=== PATIENT | male | born 1940 | race Caucasian/White ===

== ENCOUNTER 2020-07-26 13:59 | Outpatient (REF) | payer MEDICARE, OTHER, SELFPAY ==
[2020-07-26 16:54] LABS: Blood Urea Nitrogen 25 mg/dL (9-16); Estimated Glomerular Filt Rate 40
== END 2020-07-26 14:00 | disposition home or self-care (01) ==
LOC: HO.HMGCLDS 13:59
PROVIDERS: PCP Family Medicine; Visit Provider Otolaryngology
DX: Z01.818 Encounter for other preprocedural examination (principal)
CPT/HCPCS: 82565; 84520

== ENCOUNTER 2020-08-01 14:11 | Outpatient (REF) | payer MEDICARE, OTHER, SELFPAY ==
[2020-08-01 16:40] LABS: MANUAL DIFF FLAG NO
[2020-08-01 16:44] LABS: Basophils Percent Auto 0.8 % (0-2); Eosinophils Absolute Auto 0.3 X10*3/uL (0.0-0.4); Eosinophils Percent Auto 6.3 % (0-4); Hematocrit 37.4 % (42-52); Hemoglobin 12.5 g/dl (14.0-18.0); Imm Gran Abs Auto 0.01 X10*3/uL (0.00-0.03); Imm Gran Pct Auto 0.2 % (0.0-0.4); Mean Corpuscular HGB Conc 33.4 g/dl (31.0-36.0); Mean Corpuscular Hemoglobin 34.3 pg (27.0-33.0); Mean Corpuscular Volume 102.7 fL (80-98); Mean Platelet Volume 11.4 fL (9.4-12.4); Monocytes Absolute Auto 0.7 X10*3/uL (0.1-1.2); Monocytes Percent Auto 12.8 % (2-11); Neutrophils Absolute Auto 2.2 X10*3/uL (2.0-8.3); Neutrophils Percent Auto 41.9 % (45-73); Platelet Count 182 X10*3/uL (160-400); Red Blood Count 3.64 X10*6/uL (4.60-5.80); Red Cell Distribution Width 15.3 % (11.0-16.0); White Blood Count 5.2 X10*3/uL (4.8-10.8)
[2020-08-01 16:51] LABS: Prothrombin Time 11.3 SEC (10.8-13.0)
[2020-08-01 17:08] LABS: Anion Gap 13 (12-20); Blood Urea Nitrogen 21 mg/dL (9-16); Calcium 9.1 mg/dL (8.4-10.2); Carbon Dioxide 28 mmol/L (22-29); Chloride 109 mmol/L (96-108); Estimated Glomerular Filt Rate 42; Glucose Random 93 mg/dL (60-115); Potassium 4.6 mmol/l (3.3-5.1); Sodium 145 mmol/L (135-145)
[2020-08-01 17:14] LABS: B Type Natriuretic Peptide 342 pg/mL (<100)
== END 2020-08-01 14:12 | disposition home or self-care (01) ==
LOC: HO.HMGCLDS 14:11
PROVIDERS: PCP Family Medicine; Visit Provider Internal Medicine Cardiovascular Disease
DX: R06.00 Dyspnea, unspecified (principal); I10 Essential (primary) hypertension
CPT/HCPCS: 36415; 80048; 83880; 85025; 85610

== ENCOUNTER 2020-12-06 13:01 | Outpatient (REF) | payer MEDICARE, OTHER, SELFPAY ==
[2020-12-06 14:32] LABS: Anion Gap 15 (12-20); Blood Urea Nitrogen 48 mg/dL (9-16); Calcium 9.1 mg/dL (8.4-10.2); Carbon Dioxide 28 mmol/L (22-29); Chloride 105 mmol/L (96-108); Estimated Glomerular Filt Rate 26; Phosphorus 3.6 mg/dL (2.7-4.5); Potassium 4.5 mmol/L (3.3-5.1); Sodium 143 mmol/L (135-145)
[2020-12-06 16:03] LABS: Renal w Reflex Lab Use Only Order verified
== END 2020-12-06 13:02 | disposition home or self-care (01) ==
LOC: HO.HMGCLDS 13:01
PROVIDERS: Visit Provider Internal Medicine Nephrology
DX: I12.9 Hypertensive chronic kidney disease with stage 1 through stage 4 chronic kidney disease, or unspecified chronic kidney disease (principal); N18.30 Chronic kidney disease, stage 3 unspecified
CPT/HCPCS: 36415; 80051; 82310; 82565; 84100; 84520

== ENCOUNTER → 2020-12-13 12:57 | Outpatient (BNVA) | payer MEDICARE, OTHER, SELFPAY | PROVIDERS: PCP Family Medicine; Visit Provider Nurse Practitioner Gerontology | DX: I12.9 Hypertensive chronic kidney disease with stage 1 through stage 4 chronic kidney disease, or unspecified chronic kidney disease (principal); E11.22 Type 2 diabetes mellitus with diabetic chronic kidney disease; E11.42 Type 2 diabetes mellitus with diabetic polyneuropathy; N18.30 Chronic kidney disease, stage 3 unspecified; E78.5 Hyperlipidemia, unspecified; Z79.4 Long term (current) use of insulin; Z71.3 Dietary counseling and surveillance | CPT/HCPCS: 82947; 99212 ==

== ENCOUNTER 2021-01-09 07:36 | Outpatient (REF) | payer MEDICARE, OTHER, SELFPAY ==
[2021-01-09 11:29] LABS: MANUAL DIFF FLAG NO
[2021-01-09 11:36] LABS: Basophils Percent Auto 0.9 % (0-2); Eosinophils Absolute Auto 0.2 X10*3/uL (0.0-0.4); Eosinophils Percent Auto 5.1 % (0-4); Hematocrit 35.1 % (42-52); Hemoglobin 11.8 g/dl (14.0-18.0); Imm Gran Abs Auto 0.01 X10*3/uL (0.00-0.03); Imm Gran Pct Auto 0.2 % (0.0-0.4); Lymphocytes Absolute Auto 1.3 X10*3/uL (1.2-4.9); Lymphocytes Percent Auto 28.4 % (20-40); Mean Corpuscular HGB Conc 33.6 g/dl (31.0-36.0); Mean Corpuscular Hemoglobin 34.5 pg (27.0-33.0); Mean Corpuscular Volume 102.6 fL (80-98); Mean Platelet Volume 10.7 fL (9.4-12.4); Monocytes Absolute Auto 0.6 X10*3/uL (0.1-1.2); Monocytes Percent Auto 12.5 % (2-11); Neutrophils Absolute Auto 2.4 X10*3/uL (2.0-8.3); Neutrophils Percent Auto 52.9 % (45-73); Platelet Count 169 X10*3/uL (160-400); Red Blood Count 3.42 X10*6/uL (4.60-5.80); Red Cell Distribution Width 16.1 % (11.0-16.0); White Blood Count 4.6 X10*3/uL (4.8-10.8)
[2021-01-09 11:59] LABS: Albumin Level 4.3 g/dL (3.5-5.0); Anion Gap 12 (12-20); Blood Urea Nitrogen 29 mg/dL (9-16); Carbon Dioxide 30 mmol/L (22-29); Chloride 107 mmol/L (96-108); Estimated Glomerular Filt Rate 36; Potassium 4.4 mmol/L (3.3-5.1); Sodium 145 mmol/L (135-145)
[2021-01-09 12:13] LABS: Creatinine Urine 136.86 mg/dL; Protein/Creatinine Ratio, Ur 0.56 (<0.2); Total Protein Urine Random 76 mg/dL (<12)
[2021-01-10 11:26] LABS: Calcium (PTHI) 9.1 mg/dL (8.6-10.3); PTHI 32 pg/mL (14-64)
== END 2021-01-09 07:37 | disposition home or self-care (01) ==
LOC: HO.HMGCLDS 07:36
PROVIDERS: Visit Provider Internal Medicine Nephrology
DX: I12.9 Hypertensive chronic kidney disease with stage 1 through stage 4 chronic kidney disease, or unspecified chronic kidney disease (principal); N18.31 Chronic kidney disease, stage 3a
CPT/HCPCS: 36415; 80051; 82040; 82310; 82565; 83970; 84156; 84520; 85025

== ENCOUNTER 2021-02-03 09:56 | Outpatient (REF) | payer MEDICARE, OTHER, SELFPAY ==
[2021-02-03 12:32] LABS: Anion Gap 13 (12-20); Blood Urea Nitrogen 32 mg/dL (9-16); Carbon Dioxide 27 mmol/L (22-29); Chloride 107 mmol/L (96-108); Estimated Glomerular Filt Rate 35; Potassium 4.2 mmol/L (3.3-5.1); Sodium 143 mmol/L (135-145)
== END 2021-02-03 09:57 | disposition home or self-care (01) ==
LOC: HO.HMGCLDS 09:56
PROVIDERS: PCP Physician Assistant Medical; Visit Provider Internal Medicine Nephrology
DX: I12.9 Hypertensive chronic kidney disease with stage 1 through stage 4 chronic kidney disease, or unspecified chronic kidney disease (principal); N18.31 Chronic kidney disease, stage 3a
CPT/HCPCS: 36415; 80051; 82310; 82565; 84520

== ENCOUNTER → 2021-03-18 12:22 | Outpatient (BNVA) | payer MEDICARE, OTHER, SELFPAY | PROVIDERS: PCP Physician Assistant Medical; Visit Provider Nurse Practitioner Gerontology | DX: E11.42 Type 2 diabetes mellitus with diabetic polyneuropathy (principal); E11.22 Type 2 diabetes mellitus with diabetic chronic kidney disease; I12.9 Hypertensive chronic kidney disease with stage 1 through stage 4 chronic kidney disease, or unspecified chronic kidney disease; N18.4 Chronic kidney disease, stage 4 (severe); E78.5 Hyperlipidemia, unspecified; E66.09 Other obesity due to excess calories; Z79.4 Long term (current) use of insulin; Z68.32 Body mass index [BMI] 32.0-32.9, adult | CPT/HCPCS: 82947; 99212 ==

== ENCOUNTER 2021-05-15 17:35 | Emergency (ER) | payer MEDICARE, OTHER, SELFPAY ==
[2021-05-15 17:54] VITALS: BP 175/89; PULSE 76; RESP 18; TEMP 36.7; O2SAT 96; BMI 30.5
--- NOTE | 2021-05-15 18:53 | ED.WOUNDLAC ---
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 Tetanus unknown. Denies numbness, tingling, weakness, injury to other area Onset (ago): hour(s) Related Data Home Medications Medication Instructions Recorded Confirmed aspirin 81 mg tablet,delayed 81 mg PO DAILY 07/09/20 03/18/21 release atorvastatin 80 mg tablet 80 mg PO BEDTIME 07/09/20 03/18/21 fenofibrate nanocrystallized 145 145 mg PO DAILY 07/09/20 03/18/21 mg tablet (Tricor) lorazepam 0.5 mg tablet 0.5 mg PO BEDTIME PRN 07/09/20 03/18/21 nitroglycerin 0.4 mg sublingual 0.4 mg SUBLINGUAL Q5M PRN 07/09/20 03/18/21 tablet pregabalin 150 mg capsule (Lyrica) 150 mg PO BID 07/09/20 03/18/21 cyanocobalamin (vitamin B-12) 1,000 mcg PO DAILY 12/13/20 03/18/21 1,000 mcg tablet,extended release furosemide 20 mg tablet 20 mg PO BID 12/13/20 03/18/21 olmesartan 20 mg tablet 20 mg PO DAILY 12/13/20 03/18/21 gabapentin 300 mg capsule 300 mg PO TID 03/18/21 03/18/21 Previous Rx's Medication Instructions Recorded lansoprazole 30 mg capsule,delayed 30 mg PO DAILY #90 cap 07/21/20 release insulin detemir U-100 100 unit/mL 30 unit SUBCUT BEDTIME #15 ml 12/13/20 (3 mL) subcutaneous pen insulin aspart U-100 100 unit/mL 4 unit SUBCUT DAILY #15 ml 03/18/21 (3 mL) subcutaneous pen (Novolog Flexpen U-100 Insulin aspart) pen needle, diabetic 32 gauge x #200 ea 03/18/21/ (BD Ultra-Fine Micro Pen Needle) semaglutide (Ozempic) 0.5 mg SUBCUT QWEEK #4.5 ml 03/18/21 atenolol 100 mg tablet 100 mg PO DAILY #90 tab 04/08/21 Allergies Allergy/AdvReac Type Severity Reaction Status Date / Time Iodinated Contrast Media Allergy Severe SWELLING Verified 03/18/21 12:47 [IV Dye, Iodine Containing] sulfamethoxazole Allergy Severe SWELLING Verified 03/18/21 12:47 [From Bactrim] RASH tetracycline [Tetracycline] Allergy Severe SWELLING , Verified 03/18/21 12:47 RASH trimethoprim [From Bactrim] Allergy Severe SWELLING Verified 03/18/21 12:47 RASH Sulfa (Sulfonamide Allergy Unknown hives Verified 03/18/21 12:47 Antibiotics) IVP dye Allergy Unknown Anaphylaxis Uncoded 03/18/21 12:47 Renée Dry Allergy Unknown rash Uncoded 03/18/21 12:47 tetracycline Allergy Unknown hives Uncoded 03/18/21 12:47 Review of Systems Review of Systems: Constitutional:No Fever, No Chills Musculoskeletal: + joint pain, No Myalgias, No Joint Swelling Skin: + Skin Lesions, No rash Neuro: No Weakness, No Numbness, No Paresthesias Yes all other systems are reviewed and are negative [facility] Past Medical History Attestation statement: The following information was validated with the patient. 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 Surgical History History of prostate surgery Hx of angioplasty Hx of hernia repair Hx of tonsillectomy Family History Family History Father Prostate cancer Mother Breast cancer Diabetes Social History Social History (Updated 03/18/21 @ 12:38 by Yajaira Molina LPN) Household Members: Spouse Patient Tobacco Use Status: Former Tobacco user Tobacco use type: Cigarette Cigarettes Per Day: 10 Years Smoked: 40 Advance Directives: No Advance Directives Information Provided: No Physical Exam Vital Signs: Vital Signs: Last Vital Signs Temp 98.0 F 05/15/21 17:54 Pulse 76 05/15/21 17:54 Resp 18 05/15/21 17:54 BP 175/89 H 05/15/21 17:54 Pulse Ox 96 05/15/21 17:54 Body Mass Index 30.5 Const: General: cooperative and healthy appearing Orientation/consciousness: patient oriented x3 Limitations: no limitations HENMT: Head: Yes normal to inspection Ears: hearing grossly normal bilaterally General nose exam: Normal external nose present Face and sinus: Yes normal facial exam Eyes: General: appearance normal, both eyes and all related structures EOM: EOMs intact bilaterally Neck: Neck: Yes normal visual inspection Resp: Effort & Inspection: normal respiratory effort and no respiratory distress Cardio: Rate: regular rate Peripheral pulses: radial pulses present Skin: Other: 1cm flap laceration noted to right distal thumb. No nail involvement. 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 Physical exam as above. Will repair wound with Dermabond and update tetanus Procedures Laceration Laceration 1: Site: hand Side (If applicable): right Size (cm): 1 Description: flap Depth: simple, single layer Pre-repair: wound explored and irrigated extensively Skin layer closed with: other (Dermabond) Discharge Plan Discharge Clinical Impression: Laceration Patient Disposition: Home, Self-Care Instructions: Laceration (ED) Additional Instructions: Your finger was repaired with skin glue Do not pick at the skin glue, it will follow up on its own Avoid excessive water/submersion in water, do not pick at the area If area begins look infected, is red, there is pus drainage, or you fever please return to the ED Prescriptions: No Action lansoprazole 30 mg capsule,delayed release(DR/EC) 30 mg PO DAILY Qty: 90 RF: 3 atenolol 100 mg tablet 100 mg PO DAILY Qty: 90 RF: 3 pregabalin [Lyrica] 150 mg capsule 150 mg PO BID RF: 0 atorvastatin 80 mg tablet 80 mg PO BEDTIME RF: 0 lorazepam 0.5 mg tablet 0.5 mg PO BEDTIME PRNRF: 0 aspirin 81 mg tablet,delayed release (DR/EC) 81 mg PO DAILY RF: 0 nitroglycerin 0.4 mg tablet, sublingual 0.4 mg sublingual Q5M PRNRF: 0 fenofibrate nanocrystallized [Tricor] 145 mg tablet 145 mg PO DAILY RF: 0 furosemide 20 mg tablet 20 mg PO BID RF: 0 olmesartan 20 mg tablet 20 mg PO DAILY RF: 0 cyanocobalamin (vitamin B-12) 1,000 mcg tablet extended release 1,000 mcg PO DAILY RF: 0 insulin detemir U-100 100 unit/mL (3 mL) insulin pen 30 unit subcut BEDTIME Qty: 15 RF: 3 gabapentin 300 mg capsule 300 mg PO TID RF: 0 insulin aspart U-100 [Novolog Flexpen U-100 Insulin] 100 unit/mL (3 mL) insulin pen 4 unit subcut DAILY Qty: 15 RF: 1 (DME) pen needle, diabetic [BD Ultra-Fine Micro Pen Needle] 32 gauge x 1/4 needle See Rx Instructions .ROUTE .MEDSUPPLY Qty: 200 RF: 3 Ozempic 0.25 mg or 0.5 mg(2 mg/1.5 mL) pen injector 0.5 mg subcut QWEEK Qty: 4.5 RF: 1 Referrals: Bharathi Villarreal PA [Primary Care Provider] - 1 week (as needed)
[2021-05-15] MEDS: Diphth,Pertus(ACell),Tet Adult 0.5 ML SYRINGE IM (18:58)
== END 2021-05-15 19:07 | disposition home or self-care (01) ==
PROVIDERS: Emergency Provider Emergency Medicine Emergency Medical Services; PCP Physician Assistant Medical
DX: S61.011A Laceration without foreign body of right thumb without damage to nail, initial encounter (principal); W26.0XXA Contact with knife, initial encounter; E11.22 Type 2 diabetes mellitus with diabetic chronic kidney disease; I12.9 Hypertensive chronic kidney disease with stage 1 through stage 4 chronic kidney disease, or unspecified chronic kidney disease; N18.30 Chronic kidney disease, stage 3 unspecified; E78.5 Hyperlipidemia, unspecified; Y93.G1 Activity, food preparation and clean up; Y92.010 Kitchen of single-family (private) house as the place of occurrence of the external cause; Y99.9 Unspecified external cause status; Z79.82 Long term (current) use of aspirin; Z79.02 Long term (current) use of antithrombotics/antiplatelets; Z79.899 Other long term (current) drug therapy; Z79.4 Long term (current) use of insulin; Z95.0 Presence of cardiac pacemaker
CPT/HCPCS: 12001; 90471; 90715; 99283; 99284

== ENCOUNTER 2021-06-13 13:12 | Outpatient (REF) | payer MEDICARE, OTHER, SELFPAY ==
[2021-06-13 14:48] LABS: Anion Gap 13 (12-20); Blood Urea Nitrogen 28 mg/dL (9-16); Calcium 9.5 mg/dL (8.4-10.2); Carbon Dioxide 27 mmol/L (22-29); Chloride 106 mmol/L (96-108); Estimated Glomerular Filt Rate 35; Potassium 4.2 mmol/L (3.3-5.1); Sodium 142 mmol/L (135-145)
== END 2021-06-13 13:13 | disposition home or self-care (01) ==
LOC: HO.HMGCLDS 13:12
PROVIDERS: PCP Physician Assistant Medical; Visit Provider Internal Medicine Nephrology
DX: I12.9 Hypertensive chronic kidney disease with stage 1 through stage 4 chronic kidney disease, or unspecified chronic kidney disease (principal); N18.31 Chronic kidney disease, stage 3a
CPT/HCPCS: 36415; 80051; 82310; 82565; 84520

== ENCOUNTER → 2021-09-17 12:30 | Outpatient (BNVA) | payer MEDICARE, OTHER, SELFPAY | PROVIDERS: PCP Physician Assistant Medical; Visit Provider Nurse Practitioner Gerontology | DX: E11.42 Type 2 diabetes mellitus with diabetic polyneuropathy (principal); E11.22 Type 2 diabetes mellitus with diabetic chronic kidney disease; I12.9 Hypertensive chronic kidney disease with stage 1 through stage 4 chronic kidney disease, or unspecified chronic kidney disease; N18.4 Chronic kidney disease, stage 4 (severe); E78.5 Hyperlipidemia, unspecified; E66.09 Other obesity due to excess calories; Z79.4 Long term (current) use of insulin; Z68.32 Body mass index [BMI] 32.0-32.9, adult | CPT/HCPCS: 82947; 83036; 99212 ==

== ENCOUNTER 2021-12-17 08:29 | Outpatient (REF) | payer MEDICARE, OTHER, SELFPAY ==
[2021-12-17 12:00] LABS: Anion Gap 15 (12-20); Blood Urea Nitrogen 35 mg/dL (9-16); Calcium 9.8 mg/dL (8.4-10.2); Carbon Dioxide 26 mmol/L (22-29); Chloride 102 mmol/L (96-108); Estimated Glomerular Filt Rate 34; Potassium 4.2 mmol/L (3.3-5.1); Sodium 139 mmol/L (135-145)
[2021-12-17 12:05] LABS: Alanine Aminotransferase 15 U/L (0-40); Albumin Level 4.4 g/dL (3.5-5.0); Alkaline Phosphatase 41 U/L (39-117); Anion Gap 12 (12-20); Aspartate Amino Transferase 18 U/L (5-37); Bilirubin Total 0.7 mg/dL (0.0-1.0); Blood Urea Nitrogen 35 mg/dL (9-16); Carbon Dioxide 28 mmol/L (22-29); Chloride 103 mmol/L (96-108); Cholesterol 144 mg/dL; Estimated Glomerular Filt Rate 34; Glucose Fasting 170 mg/dL (60-99); HDL Cholesterol 30 mg/dL; LDL Cholesterol Calculated 61 mg/dl; Potassium 4.3 mmol/L (3.3-5.1); Sodium 139 mmol/L (135-145); Total Protein 6.8 g/dL (6.5-8.0); Triglycerides 267 mg/dL
[2021-12-17 12:26] LABS: Creatinine Urine 144.15 mg/dL; Microalbum/Creatinine Ratio Ur 299.6 ug/mg cr
[2021-12-17 12:28] LABS: Thyroid Stimulating Hormone 1.65 uIU/mL (0.32-4.0)
[2021-12-18 07:21] LABS: LDL Cholesterol Direct 68 mg/dL (<100)
== END 2021-12-17 08:30 | disposition home or self-care (01) ==
LOC: HO.LAB 08:29
PROVIDERS: Absent Provider Nurse Practitioner Gerontology; PCP Physician Assistant Medical; Visit Provider Internal Medicine Nephrology
DX: I12.9 Hypertensive chronic kidney disease with stage 1 through stage 4 chronic kidney disease, or unspecified chronic kidney disease (principal); N18.4 Chronic kidney disease, stage 4 (severe); E11.22 Type 2 diabetes mellitus with diabetic chronic kidney disease; Z79.4 Long term (current) use of insulin
CPT/HCPCS: 36415; 80051; 80053; 80061; 82043; 82310; 82565; 83721; 84443; 84520

== ENCOUNTER → 2022-01-20 11:18 | Outpatient (BNVA) | payer MEDICARE, OTHER, SELFPAY | PROVIDERS: PCP Physician Assistant Medical; Visit Provider Nurse Practitioner Gerontology | DX: E11.22 Type 2 diabetes mellitus with diabetic chronic kidney disease (principal); I12.9 Hypertensive chronic kidney disease with stage 1 through stage 4 chronic kidney disease, or unspecified chronic kidney disease; N18.4 Chronic kidney disease, stage 4 (severe); E11.42 Type 2 diabetes mellitus with diabetic polyneuropathy; E78.5 Hyperlipidemia, unspecified; E66.09 Other obesity due to excess calories; Z68.32 Body mass index [BMI] 32.0-32.9, adult; Z79.4 Long term (current) use of insulin | CPT/HCPCS: 82947; 83036; 99212 ==

== ENCOUNTER 2022-04-20 10:31 | Outpatient (REF) | payer MEDICARE, OTHER, SELFPAY ==
[2022-04-20 14:10] LABS: Anion Gap 12 (12-20); Blood Urea Nitrogen 25 mg/dL (9-16); Calcium 8.6 mg/dL (8.4-10.2); Carbon Dioxide 27 mmol/L (22-29); Chloride 108 mmol/L (96-108); Estimated Glomerular Filt Rate 44; Potassium 4.2 mmol/L (3.3-5.1); Sodium 143 mmol/L (135-145)
[2022-04-20 14:17] LABS: Creatinine Urine 53.65 mg/dL; Protein/Creatinine Ratio, Ur 0.67 (<0.2); Total Protein Urine Random 36 mg/dL (<12)
== END 2022-04-20 10:32 | disposition home or self-care (01) ==
LOC: HO.HMGCLDS 10:31
PROVIDERS: Visit Provider Internal Medicine Nephrology
DX: I12.9 Hypertensive chronic kidney disease with stage 1 through stage 4 chronic kidney disease, or unspecified chronic kidney disease (principal); N18.31 Chronic kidney disease, stage 3a
CPT/HCPCS: 36415; 80051; 82310; 82565; 84156; 84520

== ENCOUNTER → 2022-09-10 09:51 | Outpatient (BNVA) | payer MEDICARE, OTHER, SELFPAY | PROVIDERS: PCP Physician Assistant Medical; Visit Provider Nurse Practitioner Family | DX: M47.26 Other spondylosis with radiculopathy, lumbar region (principal); M51.36 Other intervertebral disc degeneration, lumbar region; M96.1 Postlaminectomy syndrome, not elsewhere classified; E11.40 Type 2 diabetes mellitus with diabetic neuropathy, unspecified | CPT/HCPCS: 99202 ==

== ENCOUNTER 2022-10-20 09:01 | Outpatient (REF) | payer MEDICARE, OTHER, SELFPAY ==
[2022-10-20 13:46] LABS: Anion Gap 11 (12-20); Blood Urea Nitrogen 25 mg/dL (9-16); Carbon Dioxide 26 mmol/L (22-29); Chloride 109 mmol/L (96-108); Estimated Glomerular Filt Rate 32; Potassium 3.9 mmol/L (3.3-5.1); Sodium 142 mmol/L (135-145)
== END 2022-10-20 09:02 | disposition home or self-care (01) ==
LOC: HO.HMGCLDS 09:01
PROVIDERS: Visit Provider Internal Medicine Nephrology
DX: I12.9 Hypertensive chronic kidney disease with stage 1 through stage 4 chronic kidney disease, or unspecified chronic kidney disease (principal); N18.31 Chronic kidney disease, stage 3a
CPT/HCPCS: 36415; 80051; 82310; 82565; 84520

== ENCOUNTER 2023-03-02 08:31 | Outpatient (REF) | payer MEDICARE, OTHER, SELFPAY ==
[2023-03-02 12:16] LABS: Anion Gap 11 (12-20); Blood Urea Nitrogen 37 mg/dL (9-16); Calcium 9.7 mg/dL (8.4-10.2); Carbon Dioxide 30 mmol/L (22-29); Chloride 108 mmol/L (96-108); Estimated Glomerular Filt Rate 31; Potassium 4.3 mmol/L (3.3-5.1); Sodium 145 mmol/L (135-145)
== END 2023-03-02 08:32 | disposition home or self-care (01) ==
LOC: HO.HMGCLDS 08:31
PROVIDERS: PCP Nurse Practitioner Family; Visit Provider Internal Medicine Nephrology
DX: I12.9 Hypertensive chronic kidney disease with stage 1 through stage 4 chronic kidney disease, or unspecified chronic kidney disease (principal); N18.31 Chronic kidney disease, stage 3a
CPT/HCPCS: 36415; 80051; 82310; 82565; 84520

== ENCOUNTER 2023-07-05 08:10 | Outpatient (REF) | payer MEDICARE, OTHER, SELFPAY ==
[2023-07-05 12:15] LABS: Anion Gap 14 (12-20); Blood Urea Nitrogen 38 mg/dL (9-16); Calcium 9.4 mg/dL (8.4-10.2); Carbon Dioxide 25 mmol/L (22-29); Chloride 108 mmol/L (96-108); Estimated Glomerular Filt Rate 32; Potassium 3.8 mmol/L (3.3-5.1); Sodium 143 mmol/L (135-145)
== END 2023-07-05 08:11 | disposition home or self-care (01) ==
LOC: HO.HMGCLDS 08:10
PROVIDERS: PCP Nurse Practitioner Family; Visit Provider Internal Medicine Nephrology
DX: I11.0 Hypertensive heart disease with heart failure (principal); N18.31 Chronic kidney disease, stage 3a
CPT/HCPCS: 36415; 80051; 82310; 82565; 84520

== ENCOUNTER 2023-08-12 14:02 | Outpatient (AMB) | payer MEDICARE, OTHER, SELFPAY ==
[2023-08-12 14:12] VITALS: BP 130/70; PULSE 70; BMI 29.0
--- NOTE | 2023-08-12 14:12 | HO.NEPHOV_ITS ---
HPI HPI Comments History of Present Illness Details Mark Anthony was seen in the office in follow-up of his chronic kidney disease and hypertension. He is known to have cardiomyopathy. He does not have any worsening pedal edema, chest pain, shortness of breath, proximal nocturnal dyspnea or orthopnea. He has not had any recent medication changes. He is on angiotensin receptor yousif. He avoids nonsteroidal anti-inflammatories. He does not have any new systemic complaint. [facility] Medical History Obesity due to excess calories Hx of aneurysm Hx of myocardial infarction Carpal tunnel syndrome Throat cancer Ischemic colitis Pacemaker Diverticulitis BPH (benign prostatic hyperplasia) Type 2 diabetes mellitus with chronic kidney disease Chronic kidney disease, stage 3 Type 2 diabetes mellitus with diabetic polyneuropathy Essential hypertension Hyperlipidemia LDL goal <70 Surgical History History of prostate surgery Hx of angioplasty Hx of hernia repair Hx of tonsillectomy Family History Father Prostate cancer Mother Breast cancer Diabetes Social History Household Members: Spouse Patient Tobacco Use Status: Former Tobacco user Quit Date: Over 20 years ago Tobacco use type: Cigarette Cigarettes Per Day: 10 Years Smoked: 40 Vital Signs 08/12/23 14:12 Height 5 ft 9.5 in Weight 199 lb 2 oz BMI 29.0 BP 130/70 Position Sitting Pulse 70 Pulse Source Pulse Oximeter Physical Exam Vital Signs: Last Vital Signs Pulse 70 08/12/23 14:12 BP 130/70 08/12/23 14:12 BMI result Body Mass Index 29.0 Const General: comfortable and no acute distress Orientation/consciousness: patient oriented x3 HEENT Head: Yes normocephalic Mouth: Normal oral and palatal mucosa present Eyes EOM: EOMs intact bilaterally Neck Neck: Yes supple Resp Auscultation: clear to auscultation bilaterally Cardio Jugular venous distension: no JVD Rate: regular rate Heart sounds: Murmur heart sound present GI Palpation (GI): Soft to palpation Auscultation: normal bowel sounds General: Yes no CVA tenderness Back/Spine/Pelvis Back: no CVA tenderness Skin General skin exam: no rashes or lesions noted Neuro General: patient oriented x3 and moves all extremities Assessment & Plan Assessment & Plan (1) CKD stage G3b/A1, GFR 30-44 and albumin creatinine ratio <30 mg/g: Code(s): N18.32 - Chronic kidney disease, stage 3b (2) Essential hypertension: Code(s): I10 - Essential (primary) hypertension Plan 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 He is hypertensive and diabetic with cardiomyopathy. His volume status is fair. He does not have any symptoms of hypervolemia. His blood pressure has been at goal. He is a great candidate for [employer]. He is avoiding nonsteroidal anti-inflammatory medications. He would benefit from a bit of weight loss. He is on Ozempic. I did not make any medication changes today but rather ordered follow-up blood work and urine studies. All his and his 's questions were answered. Follow-up appointment given. Time for retrieval of data, patient encounter and documentation 21 minutes. Orders: Orders Blood Urea Nitrogen 08/12/23 I10 - Essential (primary) hypertension, N18.32 - Chronic kidney disease, stage 3b Creatinine 08/12/23 I10 - Essential (primary) hypertension, N18.32 - Chronic kidney disease, stage 3b Electrolytes 08/12/23 I10 - Essential (primary) hypertension, N18.32 - Chronic kidney disease, stage 3b Calcium 08/12/23 I10 - Essential (primary) hypertension, N18.32 - Chronic kidney disease, stage 3b Coding Level of Care Code Est Pt Level 3 (14501) Diagnoses CKD stage G3b/A1, GFR 30-44 and albumin creatinine ratio <30 mg/g N18.32 Essential hypertension I10
== END 2023-08-12 15:14 | disposition home or self-care (01) ==
PROVIDERS: PCP Nurse Practitioner Family; Visit Provider Internal Medicine Nephrology
DX: E11.22 Type 2 diabetes mellitus with diabetic chronic kidney disease (principal); I12.9 Hypertensive chronic kidney disease with stage 1 through stage 4 chronic kidney disease, or unspecified chronic kidney disease; N18.32 Chronic kidney disease, stage 3b; I42.9 Cardiomyopathy, unspecified; Z79.811 Long term (current) use of aromatase inhibitors; Z79.85 Long-term (current) use of injectable non-insulin antidiabetic drugs
CPT/HCPCS: 99213

== ENCOUNTER → 2023-08-12 14:02 | Outpatient (BNVA) | payer MEDICARE, OTHER, SELFPAY | PROVIDERS: PCP Nurse Practitioner Family; Visit Provider Internal Medicine Nephrology | DX: I12.9 Hypertensive chronic kidney disease with stage 1 through stage 4 chronic kidney disease, or unspecified chronic kidney disease (principal); N18.32 Chronic kidney disease, stage 3b | CPT/HCPCS: 99212 ==

== ENCOUNTER 2023-11-05 10:49 | Outpatient (AMB) | payer MEDICARE, OTHER, SELFPAY ==
--- NOTE | 2023-11-05 12:04 | A.OFFVIS_ITS ---
Intake Intake Visit Reasons: low back pain Allergies Iodinated Contrast Media [IV Dye, Iodine Containing] Allergy (Severe, Verified 08/12/23 14:24) SWELLING sulfamethoxazole [From Bactrim] Allergy (Severe, Verified 08/12/23 14:24) SWELLING RASH tetracycline [Tetracycline] Allergy (Severe, Verified 08/12/23 14:24) SWELLING , RASH trimethoprim [From Bactrim] Allergy (Severe, Verified 08/12/23 14:24) SWELLING RASH Sulfa (Sulfonamide Antibiotics) Allergy (Unknown, Verified 08/12/23 14:24) hives IVP dye Allergy (Unknown, Uncoded 10/12/22 14:48) Anaphylaxis Renée Dry Allergy (Unknown, Uncoded 10/12/22 14:48) rash tetracycline Allergy (Unknown, Uncoded 10/12/22 14:48) hives [facility] Medical History Obesity due to excess calories Hx of aneurysm Hx of myocardial infarction Carpal tunnel syndrome Throat cancer Ischemic colitis Pacemaker Diverticulitis BPH (benign prostatic hyperplasia) Type 2 diabetes mellitus with chronic kidney disease Chronic kidney disease, stage 3 Type 2 diabetes mellitus with diabetic polyneuropathy Essential hypertension Hyperlipidemia LDL goal <70 Surgical History History of prostate surgery Hx of angioplasty Hx of hernia repair Hx of tonsillectomy Family History Father Prostate cancer Mother Breast cancer Diabetes Social History Household Members: Spouse Patient Tobacco Use Status: Former Tobacco user Quit Date: Over 20 years ago Tobacco use type: Cigarette Cigarettes Per Day: 10 Years Smoked: 40 Assessment & Plan Assessment & Plan (1) Lumbar radiculopathy: Code(s): M54.16 - Radiculopathy, lumbar region Plan . This is a self-referred 82-year-old gentleman with a previous history of an L5-S1 decompression, presents to the office today for evaluation of back pain and bilateral pain going down into his buttocks into his hamstrings. The pain can be aggravated with standing and walking. He has had the pain now for many years. Initially after he had his surgery on his L5-S1 area he had complete relief of his symptoms, but a number of years ago everything seemed to return. If he stands and is doing anything for more than a few minutes, he will have to sit down and the symptoms will go away. He also deals with peripheral neuropathy and feelings of numbness on the bottom of his feet which are quite uncomfortable as well. He has seen Dr. Matta in the past who has told him he has not a surgical candidate. He saw another surgeon in [place] I believe and was told that they could go and do clean up to the area that was previously operated on but that it would be more less anyone's gas if he would get better. He comes in today to be evaluated for his back pain and his bilateral leg pain. He has a little suspicious of doing any more surgery because he had a brother who underwent numerous spinal operations and after each 1 seem to get worse. He has done injections at the [facility]. He takes Nucynta. He can not take anti-inflammatories because of his kidneys. He is done physical therapy chiropractic etc.. PMH: He is extensive vascular history including 5 heart attacks, coronary bypass surgery in 1996 followed by subsequent angioplasties and stents, vivi londono multiple times. He has had an intravascular repair of a AAA. Knee surgery, diverticulitis, angioplasty to the leg and lower extremity vasculature. Throat cancer with surgery and chemo and radiation. History of high cholesterol, hypertension, diabetes. His last A1c was in the 6 range he tells me. He also has a history of a cervical laminectomy. Social hx: He does not smoke, denies any drugs or alcohol use. Medications: [place], baby aspirin, atenolol, atorvastatin, fenofibrate, Lasix, lansoprazole, Levemir, lorazepam, nitroglycerin, Ozempic and vitamin B12 Allergies: Please see the [employer] list Physical exam: He is awake alert oriented no acute distress, he is able stand up out of a chair and walk, he has full strength of bilateral lower extremities but absent reflexes bilaterally at the patella and Achilles. He has a midline incision in his neck that is about 4-6 inches long, as well as a midline incision in his lower lumbar area that is about 4 in. Both are well healed. 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 There are compression fractures in the lower thoracic spine. Impression: 82-year-old male with a previous history of an L5-S1 laminectomy done many many years ago who did well after his surgery who has began experiencing over the last few years recurrence of the same back pain and bilateral lower extremity pain going down into his posterior lateral thighs and calves with walking. He also has diabetic neuropathy with feelings of tingling and pins and needles in the bottom of his feet. His CT scan shows that he has what I suspect is stenosis at L4-5 and possibly L3-4. The imaging is limited however in the setting of a CT scan. I told him the best option would be to get a CT myelogram but he had 1 of these in the past and was not pleased with the spinal headache that it gave him afterwards. I think in the setting of previous surgery we would need as much information as we could get and a CT myelogram would be able to provide this for us. He will think about it get back to us how he would like to proceed. Thank you for allowing us to care for your patient. The total time spent with this visit with this patient was 45 minutes reviewing history, physical exam, lumbar CT imaging review, and implementation of treatment plan or further diagnostic testing Bharathi Parrish MD,PhD [facility] Coding Level of Care Code New Pt Level 4 (76010) Diagnoses Lumbar radiculopathy M54.16
== END 2023-11-05 12:29 | disposition home or self-care (01) ==
PROVIDERS: PCP Nurse Practitioner Family; Visit Provider Physician Assistant
DX: M54.16 Radiculopathy, lumbar region (principal)
CPT/HCPCS: 99204

== ENCOUNTER → 2023-11-05 10:49 | Outpatient (BNVA) | payer MEDICARE, OTHER, SELFPAY | PROVIDERS: PCP Nurse Practitioner Family; Visit Provider Physician Assistant | DX: M54.16 Radiculopathy, lumbar region (principal) | CPT/HCPCS: 99202 ==

== ENCOUNTER 2023-11-12 13:53 | Outpatient (AMB) | payer MEDICARE, OTHER, SELFPAY ==
--- NOTE | 2023-11-12 14:03 | HO.NEPHOV_ITS ---
HPI HPI Comments History of Present Illness Details Mark Anthony was seen in the office in follow-up of his chronic kidney disease and hypertension. He is known to have cardiomyopathy. He does not have any worsening pedal edema, chest pain, shortness of breath, proximal nocturnal dyspnea or orthopnea. He has not had any recent medication changes. He is on angiotensin receptor yousif. He avoids nonsteroidal anti-inflammatories. He does not have any new systemic complaint PFSH Medical History Obesity due to excess calories Hx of aneurysm Hx of myocardial infarction Carpal tunnel syndrome Throat cancer Ischemic colitis Pacemaker Diverticulitis BPH (benign prostatic hyperplasia) Type 2 diabetes mellitus with chronic kidney disease Chronic kidney disease, stage 3 Type 2 diabetes mellitus with diabetic polyneuropathy Essential hypertension Hyperlipidemia LDL goal <70 Surgical History History of prostate surgery Hx of angioplasty Hx of hernia repair Hx of tonsillectomy Family History Father Prostate cancer Mother Breast cancer Diabetes Social History Household Members: Spouse Patient Tobacco Use Status: Former Tobacco user Quit Date: Over 20 years ago Tobacco use type: Cigarette Cigarettes Per Day: 10 Years Smoked: 40 Vital Signs 11/12/23 14:04 Height 5 ft 9.5 in Weight 199 lb 4 oz BMI 29.0 BP 130/60 Blood Pressure Location Rt brachial Position Sitting Pulse 71 Pulse Source Pulse Oximeter Pulse Oximetry (%) 97 Oxygen Delivery Method Room Air Physical Exam Vital Signs: Last Vital Signs Pulse 71 11/12/23 14:04 BP 130/60 11/12/23 14:04 Pulse Ox 97 11/12/23 14:04 Oxygen Delivery Method Room Air 11/12/23 14:04 BMI result Body Mass Index 29.0 Const General: comfortable and no acute distress Orientation/consciousness: patient oriented x3 HEENT Head: Yes normocephalic Mouth: Normal oral and palatal mucosa present Eyes EOM: EOMs intact bilaterally Neck Neck: Yes supple Resp Auscultation: clear to auscultation bilaterally Cardio Jugular venous distension: no JVD Rate: regular rate GI Palpation (GI): Soft to palpation Auscultation: normal bowel sounds General: Yes no CVA tenderness Back/Spine/Pelvis Back: no CVA tenderness Skin General skin exam: no rashes or lesions noted Neuro General: patient oriented x3 and moves all extremities Assessment & Plan Assessment & Plan (1) CKD stage G3b/A1, GFR 30-44 and albumin creatinine ratio <30 mg/g: Code(s): N18.32 - Chronic kidney disease, stage 3b (2) Essential hypertension: Code(s): I10 - Essential (primary) hypertension Plan 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 He is hypertensive and diabetic with cardiomyopathy. His volume status is fair. He does not have any symptoms of hypervolemia. His blood pressure has been at goal. He is a great candidate for [employer]. I have ordered a twenty-four urine collection for creatinine clearance. He is avoiding nonsteroidal anti-inflammatory medications. He would benefit from a bit of weight loss. He is on Ozempic. I did not make any medication changes today but rather ordered follow-up blood work and urine studies. All his and his 's questions were answered. Follow-up appointment given. Orders: Orders 2 Blood Urea Nitrogen Today N18.32 - Chronic kidney disease, stage 3b Electrolytes Today N18.32 - Chronic kidney disease, stage 3b Creatinine Clearance Urine Today N18.32 - Chronic kidney disease, stage 3b Creatinine Today N18.32 - Chronic kidney disease, stage 3b Coding Level of Care Code Est Pt Level 3 (45151) Diagnoses CKD stage G3b/A1, GFR 30-44 and albumin creatinine ratio <30 mg/g N18.32 Essential hypertension I10 Results Reviewed Nephrology Results: Sodium 143 mmol/L (135-145) 07/05/23 Potassium 3.8 mmol/L (3.3-5.1) 07/05/23 Chloride 108 mmol/L (96-108) 07/05/23 Carbon Dioxide 25 mmol/L (22-29) 07/05/23 BUN 38 mg/dL (9-16) H 07/05/23 Creatinine 2.00 mg/dL (0.5-1.4) H 07/05/23 Calcium 9.4 mg/dL (8.4-10.2) 07/05/23 Urine Creatinine 53.65 mg/dL 04/20/22 Protein/Creatinin Ratio 0.67 (<0.2) H 04/20/22
[2023-11-12 14:04] VITALS: BP 130/60; PULSE 71; O2SAT 97; BMI 29.0
== END 2023-11-12 14:32 | disposition home or self-care (01) ==
PROVIDERS: PCP Nurse Practitioner Family; Visit Provider Internal Medicine Nephrology
DX: N18.32 Chronic kidney disease, stage 3b (principal); I10 Essential (primary) hypertension
CPT/HCPCS: 99213

== ENCOUNTER → 2023-11-12 13:53 | Outpatient (BNVA) | payer MEDICARE, OTHER, SELFPAY | PROVIDERS: PCP Nurse Practitioner Family; Visit Provider Internal Medicine Nephrology | DX: I12.9 Hypertensive chronic kidney disease with stage 1 through stage 4 chronic kidney disease, or unspecified chronic kidney disease (principal); N18.32 Chronic kidney disease, stage 3b | CPT/HCPCS: 99212 ==

== ENCOUNTER 2023-12-27 08:34 | Outpatient (REF) | payer MEDICARE, OTHER, SELFPAY ==
[2023-12-27 13:01] LABS: Anion Gap 13 (12-20); Blood Urea Nitrogen 37 mg/dL (9-16); Calcium 9.7 mg/dL (8.4-10.2); Carbon Dioxide 29 mmol/L (22-29); Chloride 106 mmol/L (96-108); Estimated Glomerular Filt Rate 27; Potassium 4.2 mmol/L (3.3-5.1); Sodium 144 mmol/L (135-145)
[2023-12-27 13:22] LABS: Creatinine, mg/dL 57.48
[2023-12-27 16:23] LABS: Creatinine (CrCl) 2.33 mg/dL (0.5-1.4); Creatinine Clearance 35.9 mL/min (85-125); Creatinine, 24Hr Urine 1.2 G/Day (1.0-2.0); Total Volume 24 Hour Urine 2100 mL
== END 2023-12-27 08:35 | disposition home or self-care (01) ==
LOC: HO.HMGCLDS 08:34
PROVIDERS: PCP Nurse Practitioner Family; Visit Provider Internal Medicine Nephrology
DX: I12.9 Hypertensive chronic kidney disease with stage 1 through stage 4 chronic kidney disease, or unspecified chronic kidney disease (principal); N18.32 Chronic kidney disease, stage 3b
CPT/HCPCS: 36415; 80051; 82310; 82565; 82575; 84520

== ENCOUNTER 2024-02-09 14:49 | Outpatient (AMB) | payer MEDICARE, OTHER, SELFPAY ==
[2024-02-09 14:52] VITALS: BP 122/66; PULSE 70; O2SAT 98; BMI 29.1
--- NOTE | 2024-02-09 14:52 | HO.NEPHOV_ITS ---
Vital Signs 02/09/24 14:52 Height 5 ft 9.5 in Weight 200 lb BMI 29.1 BP 122/66 Blood Pressure Location Lt brachial Position Sitting Pulse 70 Pulse Source Pulse Oximeter Pulse Oximetry (%) 98 Oxygen Delivery Method Room Air Intake Visit Reasons: CKD/ 3 MO FU/ Confirmed Mission Assessment Specialist Required: No Accompanied by: Self / Same As Patient Allergies Iodinated Contrast Media [IV Dye, Iodine Containing] Allergy (Severe, Verified 02/09/24 14:53) SWELLING sulfamethoxazole [From Bactrim] Allergy (Severe, Verified 02/09/24 14:53) SWELLING RASH tetracycline [Tetracycline] Allergy (Severe, Verified 02/09/24 14:53) SWELLING , RASH trimethoprim [From Bactrim] Allergy (Severe, Verified 02/09/24 14:53) SWELLING RASH Sulfa (Sulfonamide Antibiotics) Allergy (Unknown, Verified 02/09/24 14:53) hives IVP dye Allergy (Unknown, Uncoded 10/12/22 14:48) Anaphylaxis Reneé Dry Allergy (Unknown, Uncoded 10/12/22 14:48) rash tetracycline Allergy (Unknown, Uncoded 10/12/22 14:48) hives HPI Comments Details: Mark Anthony was seen in the office in follow-up of his chronic kidney disease and hy pertension. He is known to have cardiomyopathy. He does not have any worsening pedal edema, chest pain, shortness of breath, proximal nocturnal dyspnea or orthopnea. He has not had any recent medication changes. He is on angiotensin receptor yousif. He avoids nonsteroidal anti-inflammatories. He is going for back surgery. [facility] Medical History Obesity due to excess calories Hx of aneurysm Hx of myocardial infarction Carpal tunnel syndrome Throat cancer Ischemic colitis Pacemaker Diverticulitis BPH (benign prostatic hyperplasia) Type 2 diabetes mellitus with chronic kidney disease Chronic kidney disease, stage 3 Type 2 diabetes mellitus with diabetic polyneuropathy Essential hypertension Hyperlipidemia LDL goal <70 Surgical History History of prostate surgery Hx of angioplasty Hx of hernia repair Hx of tonsillectomy Family History Father Prostate cancer Mother Breast cancer Diabetes Social History Household Members: Spouse Patient Tobacco Use Status: Former Tobacco user Quit Date: Over 20 years ago Tobacco use type: Cigarette Cigarettes Per Day: 10 Years Smoked: 40 Physical Exam Vital Signs: Last Vital Signs Pulse 70 02/09/24 14:52 Pulse Ox 98 02/09/24 14:52 Oxygen Delivery Method Room Air 02/09/24 14:52 BMI result Body Mass Index 29.1 Const General: comfortable and no acute distress Orientation/consciousness: patient oriented x3 HEENT Head: Yes normocephalic Mouth: Normal oral and palatal mucosa present Eyes EOM: EOMs intact bilaterally Neck Neck: Yes supple Resp Auscultation: clear to auscultation bilaterally Cardio Jugular venous distension: no JVD Rate: regular rate GI Palpation (GI): Soft to palpation Auscultation: normal bowel sounds General: Yes no CVA tenderness Back/Spine/Pelvis Back: no CVA tenderness Skin General skin exam: no rashes or lesions noted Neuro General: patient oriented x3 and moves all extremities Extrem General: Yes no pedal edema Results Reviewed Nephrology Results: Sodium 144 mmol/L (135-145) 12/27/23 Potassium 4.2 mmol/L (3.3-5.1) 12/27/23 Chloride 106 mmol/L (96-108) 12/27/23 Carbon Dioxide 29 mmol/L (22-29) 12/27/23 BUN 37 mg/dL (9-16) H 12/27/23 Creatinine 2.33 mg/dL (0.5-1.4) H 12/27/23 Calcium 9.7 mg/dL (8.4-10.2) 12/27/23 Assessment & Plan Assessment & Plan (1) CKD stage G3b/A1, GFR 30-44 and albumin creatinine ratio <30 mg/g: Code(s): N18.32 - Chronic kidney disease, stage 3b Category: Medical (2) Essential hypertension: Code(s): I10 - Essential (primary) hypertension Category: Medical Plan 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 He is hypertensive and diabetic with cardiomyopathy. His volume status is fair. He does not have any symptoms of hypervolemia. His blood pressure has been at goal. I reduced his lasix 20 mg daily. He is a great candidate for [employer]. His twenty-four urine collection for creatinine clearance was 36 mls/minute. He is avoiding nonsteroidal anti- inflammatory medications. He would benefit from a bit of weight loss. He is on Ozempic. I did not make any other medication changes today but rather ordered follow-up blood work and urine studies. All his questions were answered. Follow-up appointment given. Orders: Orders Creatinine Today N18.32 - Chronic kidney disease, stage 3b Blood Urea Nitrogen Today N18.32 - Chronic kidney disease, stage 3b Electrolytes Today N18.32 - Chronic kidney disease, stage 3b Coding Level of Care Code Est Pt Level 4 (52114) Diagnoses CKD stage G3b/A1, GFR 30-44 and albumin creatinine ratio <30 mg/g N18.32 Essential hypertension I10
--- OUTSIDE RECORDS SUMMARY | 2024-02-09 14:52 | XMS_ITS | Continuity of Care Document ---
Author Organization [facility] Andrea Ashish lt Address [address] [place] [address]- Care Team Providers Care Blow Mold Technician Name Role Phone Uri TAVERAS, Mercy Barrett Primary Care Physician [phone] Encounter [facility] Date(s): 07/30/23 - 08/06/23 [facility] Adult [address] [place] [address]- Encounter Diagnosis AAA (abdominal aortic aneurysm)(Discharge Diagnosis) - 07/30/23 Malignant tumor of pharynx(Discharge Diagnosis) - 07/30/23 PVD (peripheral vascular disease)(Discharge Diagnosis) - 07/30/23 Presence of cardiac pacemaker(Discharge Diagnosis) - 07/30/23 Presence of stent in coronary artery in patient with coronary artery disease (Discharge Diagnosis) - 07/30/23 Sick sinus syndrome(Discharge Diagnosis) - 07/30/23 Stage 3b chronic kidney disease (CKD)(Discharge Diagnosis) - 07/30/23 Attending Physician: Светлана Grewal MD Referring Physician: Ethan Bach MD Allergies, Adverse Reactions, Alerts Substance Reaction Severity Status tetracyclines rash Active Bactrim DS rash Active Contrast Dye angioedema, dyspnea Active Immunizations Given and Recorded Vaccine Date Status Refusal Reason influenza virus vaccine, inactivated 06/29/23 Brannon rded influenza virus vaccine, inactivated 07/03/22 Brannon rded influenza virus vaccine, inactivated 07/08/21 Brannon rded influenza virus vaccine, inactivated 06/12/20 Brannon rded influenza virus vaccine, inactivated 07/04/19 Brannon rded influenza virus vaccine, inactivated 06/15/18 Brannon rded influenza virus vaccine, inactivated 06/23/17 Brannon rded influenza virus vaccine, inactivated 06/26/16 Brannon rded influenza virus vaccine, inactivated 07/08/15 Brannon rded influenza virus vaccine, inactivated 07/05/13 Brannon rded influenza virus vaccine, inactivated 07/06/12 Brannon rded influenza virus vaccine, inactivated 06/18/11 Brannon rded influenza virus vaccine, inactivated 06/16/10 Brannon rded influenza virus vaccine, inactivated 06/25/05 Brannon rded pneumococcal 20-valent conjugate vaccine 02/09/23 Given [id number] 12y+ bivalent booster vax 07/10/22 Recorded SARS-CoV-2 (COVID-19) mRNA BNT-162b2 vac 05/20/21 Recorded SARS-CoV-2 (COVID-19) mRNA BNT-162b2 vac 12/02/20 Recorded SARS-CoV-2 (COVID-19) mRNA BNT-162b2 vac 11/10/20 Recorded tetanus/diphtheria/pertussis, acel(Tdap) 05/15/21 Recorded tetanus/diphtheria/pertussis, acel(Tdap) 08/12/13 Recorded pneumococcal 23-valent vaccine 07/04/19 Recorded zoster vaccine, inactivated 08/03/18 Recorded zoster vaccine, inactivated 01/29/18 Recorded pneumococcal 13-valent vaccine 01/29/18 Recorded pneumococcal 13-valent vaccine 07/10/15 Recorded tetanus-diphtheria toxoids (Td) 04/12/01 Recorded Medications 18 - 20mmHg below knee compression stockings 18 - 20mmHg below knee compression stockings, See Instructions, # 4 pair, Refills 0, Tot. Refills 0, Maintenance, dx: lower extremity edema, 08/18/12 15:05:06 Start Date: 08/18/12 Status: Ordered aspirin 81 mg oral tablet 1 tablet = 81 mg, By Mouth, Daily, 0 Refills, Maintenance, 09/18/19 9:54:11 EST Start Date: 09/18/19 Status: Ordered atenolol 50 mg oral tablet See Instructions, TAKE 1 TABLET BY MOUTH EVERY DAY, # 90 tablet, Refills 3, Tot. Refills 3, Maintenance, 04/19/23 14:26:00 EDT, Instructions Replace Required Details, [id number] 177, cm, 04/19/23 14:... Start Date: 04/19/23 Status: Ordered atorvastatin 80 mg oral tablet 1 tablet = 80 mg, By Mouth, Daily, # 90 tablet, 3 Refills, Maintenance, 04/19/23 15:01:00 EDT, Tablet, [facility] #[id number], Partial fill upon patient request if the prescription is for a schedule II opioid drug., 177, cm, 04/19/23 14:26:00 EDT... Start Date: 04/19/23 Status: Ordered fenofibrate 145 mg oral tablet 1 tablet = 145 mg, By Mouth, Daily, # 90 tablet, 3 Refills, Maintenance, 04/19/23 15:02:00 EDT, Tablet, [facility] #[id number], 177, cm, 04/19/23 14:26:00 EDT, Height, 89.6, kg, 02/23/23 9:24:00EDT, Dry Weight Start Date: 04/19/23 Stop Date: 04/13/24 Status: Ordered FreeStyle Vivek 2 Sensors Maintenance, 02/09/23 11:23:00 EDT, Supply Start Date: 02/09/23 Status: Ordered Freestyle Vivek Monitor Maintenance, 02/09/23 11:23:00 EDT, Supply Start Date: 02/09/23 Status: Ordered furosemide 20 mg oral tablet See Instructions, Take 1 tablet by mouth every day, and 2 tablets by mouth every other day., # 135 tablet, Refills 3, Tot. Refills 3, Maintenance, 04/19/23 15:02:00 EDT, Instructions Replace RequiredDetails, Route to Pharmacy Electronically, [facility]... Start Date: 04/19/23 Status: Ordered insulin detemir 100 units/mL subcutaneous solution = 30 units, Subcutaneous Injection, Daily at bedtime, # 7.8 mL, 11 Refills, Maintenance, 04/19/23 15:03:00 EDT, Solution, [facility] #[id number], Partial fill upon patient request if the prescription is for a schedule II opioid drug., 177, cm, 07... Start Date: 04/19/23 Status: Ordered lansoprazole 30 mg oral enteric coated capsule See Instructions, TAKE 1 CAPSULE BY MOUTH EVERY DAY, # 90 capsule, 3 Refills, Maintenance, 04/19/2315:04:00 EDT, [facility] #[id number], 177, cm, 04/19/23 14:26:00 EDT, Height, 89.6, kg, 02/23/23 9:24:00 EDT, Dry Weight Start Date: 04/19/23 Status: Ordered LORazepam 0.5 mg oral tablet 1 tablet = 0.5 mg, By Mouth, 2 times a day, # 60 tablet, 2 Refills, Acute 10/30/23 21:00:00 EST, 07/30/23 14:22:00 EDT, Tablet, [facility] #[id number], Partial fill upon patient request if the prescription is for a schedule II opioid drug., 177,... Start Date: 07/30/23 Stop Date: 10/30/23 Status: Ordered Nitrostat 0.4 mg sublingual tablet 1 tablet = 0.4 mg, Sublingual, Every 5 minutes, PRN for chest pain, Please divide 25 tablets X 4 bottles, # 100 tablet, 2 Refills, Maintenance, 04/19/23 15:05:00 EDT, Tablet, [facility] #[id number], 177, cm, 04/19/23 14:26:00 EDT, Height, 89.6, k... Start Date: 04/19/23 Status: Ordered Pen Bock, 32 G x 4 mm BD Ultra Fine III See instructions, # 600 each, Refills 5, Tot. Refills 5, Maintenance, DX: E11.9 use to inject insulin, 05/14/23 13:37:00 EDT, Supply, 177, cm, 04/19/23 14:26:00 EDT, Height, 89.6, kg, 02/23/23 9:24:00 EDT, Dry Weight Start Date: 05/14/23 Stop Date: 11/04/24 Status: Ordered semaglutide 2 mg/1.5 mL (0.25 mg or 0.5 mg dose) subcutaneous solution = 0.5 mg, Subcutaneous Infusion, Every 7 days, # 2 mL, 11 Refills, Maintenance, 04/19/23 15:04:00 EDT, [facility] #[id number], Partial fill upon patient request if the prescription is for a schedule II opioid drug., 0.5 mg Subcutaneous Infusion E... Start Date: 04/19/23 Status: Ordered Vitamin B12 1000 mcg oral tablet 1 tablet = 1,000 mcg, By Mouth, Daily, # 30 tablet, 0 Refills, Maintenance, 02/09/23 11:22:00 EDT, Tablet, Partial fill upon patient request if the prescription is for a schedule II opioid drug. Start Date: 02/09/23 Status: Ordered Problem List Condition Confirmation Course Effective Dates Status Health Status Informant AAA (abdominal aortic aneurysm) Confirmed Active Acute hypoxemic respiratory failure Confirmed Active Anxiety Confirmed Active Bacterial pneumonia Confirmed Active Presence of cardiac pacemaker Confirmed Active Stage 3b chronic kidney disease (CKD) Confirmed Active Diabetes mellitus Confirmed Active Chronic GERD Confirmed Active Gastrointestinal Hemorrhage Confirmed Active H/O: cardiac pacemaker in situ 1 Confirmed 12/30/17 Active History of diverticulitis Confirmed Active History of diverticulitis Confirmed 07/07/23 Active History of [place] (myocardial infarction) Confirmed Active Hypercholesteremia Confirmed Active Hypertension Confirmed Active Throat cancer Confirmed Active Malignant tumor of pharynx Confirmed 07/07/23 Active Neuropathy Confirmed Active Diabetic neuritis Confirmed Active PVD (peripheral vascular disease) Confirmed Active Renal osteodystrophy Confirmed 07/07/23 Active Sick sinus syndrome Confirmed Active Presence of stent in coronary artery in patient with coronary artery disease Confirmed Active Type 2 diabetes mellitus Confirmed Active 1Outside Source Comment: Last Assessment & Plan: Full interrogation today. No significant mode switches and device is functioning normally. Full report under separate cover. Diagnosis Diagnosis Type Effective Dates Health Status Cl inical Service Informant AAA (abdominal aortic aneurysm) Discharge Diagnosis 07/30/23 Malignant tumor of pharynx Discharge Diagnosis 07/30/23 PVD (peripheral vascular disease) Discharge Diagnosis 07/30/23 Presence of cardiac pacemaker Discharge Diagnosis 07/30/23 Presence of stent in coronary artery in patient with coronary artery disease Discharge Diagnosis 07/30/23 Sick sinus syndrome Discharge Diagnosis 07/30/23 Stage 3b chronic kidney disease (CKD) Discharge Diagnosis 07/30/23 Vital Signs Most recent to oldest [Reference Range]: 1 Height 177 cm (07/30/23 1:55 PM) Weight 91.5 kg (07/30/23 1:55 PM) Oxygen Saturation [94-100 %] 100 % (07/30/23 1:55 PM) Pulse Rate [55-90 bpm] 69 bpm (10/27/23 1:55 PM) Body Mass Index [18.5-24.99 kg/m2] 29.21 kg/m2 *H* (07/30/23 1:55 PM) Blood Pressure [90-138/55-84 mm Hg] 137/ 67mm Hg (07/30/23 1:55 PM) Social History Social History Type Response Smoking Status Former smoker; Other : Quit 1994 without relapse; entered on: 10/22/16 Sex Implantable Device List Procedure Provider Procedure Date Device Type Site Removal Lucien Jhaveri MD, Jose Bae 06/07/18 Unk nown Eye Right Device Identifier Serial Number Lot or Batch Number Manufacturing Date Expiration Date Distinct Identification Code MRI Safety Implantable Status Assigning Authority Unknown AG [id number] Unknown Unknown 02/24/20 Unknown Unknown Active Unknown Note * Berta Montoya: PERFORM, SIGN, VERIFY Event Display: Patient Education/Instruction Authored Date: [id number] [facility] *[facility] Rose Danielson Clinical Summary Name CHERELLE SALAZAR Age 82 Years 1940 PCP Mercy Grewal NP PCP Visit Date 07/30/2023 13:43:00 Additional Instructions: Scheduled Appointments?? Future Appointments ?No Future Appointments Scheduled Follow-Up Instructions ?? With: Address: When: Mercy Grewal NP Within 3 months Comments: 40 minutes 3 month f/u Diagnosis Anxiety disorder, unspecified; Type 2 diabetes mellitus without complications Medications: Please continue your medications until treatment is completed or stopped by your provider. Discuss any questions related to medications with your provider. New Medications [facility] #[id number], [address], [place] [id number], [phone] Lorazepam (LORazepam 0.5 mg oral tablet) 1 tab(s) Oral twice a day. Refills: 2. Next Dose: Medications to Continue with No Changes These medications were not printed or sent to your pharmacy Aspirin (aspirin 81 mg oral tablet) 1 tab(s) Oral Daily. Next Dose: Atenolol (atenolol 50 mg oral tablet) TAKE 1 TABLET BY MOUTH EVERY DAY. Refills: 3. Next Dose: Atorvastatin (atorvastatin 80 mg oral tablet) 1 tab(s) Oral Daily. Refills: 3. Next Dose: Cyanocobalamin (Vitamin B12 1000 mcg oral tablet) 1 tab(s) Oral Daily. Next Dose: Durable Medical Equipment (FreeStyle Vivek 2 Sensors) Next Dose: Durable Medical Equipment (Freestyle Vivek Monitor) Next Dose: Durable Medical Equipment (Pen Bock, 32 G x 4 mm [employer] Ultra Fine III) DX: E11.9 use to inject insulin. Refills: 5. Next Dose: Fenofibrate (fenofibrate 145 mg oral tablet) 1 tab(s) Oral Daily for 90 Days. Refills: 3. Next Dose: Furosemide (furosemide 20 mg oral tablet) Take 1 tablet by mouth every day, and 2 tablets by mouth every other day.. Refills: 3. Next Dose: Insulin Detemir (insulin detemir 100 units/mL subcutaneous solution) 30 unit(s) Subcutaneous Injection Daily at Bedtime. Refills: 11. Next Dose: Lansoprazole (lansoprazole 30 mg oral enteric coated capsule) TAKE 1 CAPSULE BY MOUTH EVERY DAY. Refills: 3. Next Dose: Miscellaneous Rx (18 - 20mmHg below knee compression stockings) dx: lower extremity edema. Refills:0. Next Dose: Nitroglycerin (Nitrostat 0.4 mg sublingual tablet) 1 tab(s) Sublingual every 5 minutes as needed for chest pain. Please divide 25 tablets X 4 bottles. Refills: 2. Next Dose: semaglutide (semaglutide 2 mg/1.5 mL (0.25 mg or 0.5 mg dose) subcutaneous solution) 0.5 Milligram Subcutaneous Infusion every 7 days. Refills: 11. Next Dose: Allergy Info:?? Contrast Dye; Bactrim DS; tetracyclines Medications Given This Visit Future Orders ?No future orders Vital Signs Height 177 cm Weight 91.5 kg BMI 29.21 kg/m2 Blood Pressure 137 mm Hg/67 mm Hg Temperature Pulse Rate 69 bpm Respiratory Rate 02 Sat Mode of Delivery 100 %/ You can now view a summary of your hospital visit from the comfort of your home through a free online portal called Telestream. Telestream is a website that allows you to securely view your medical information including discharge summary, medications and follow-up visits. ??You can alsosend a secure electronic message to your doctor???s office to request appointments, renew medications or just ask a question. You can enroll at [email or web address] or register during your next office visit. Disclaimer:?? The information provided is of a general nature and is intended to be used in conjunction with the recommendations and advice of your health care practitioner. ??Every effort has been made to ensure that the information provided is accurate and complete at the time it is provided to you however, as your needs change, or, as new ??information becomes available, different or additional instructions may be required. If you have questions, please consult with your primary care provider or pharmacist, as appropriate. ??This information is not intended to serve as substitution for assessment and evaluation by a qualified health care provider. If you do not have a primary care provider, you may find a [facility] provider by calling [facility] Link at [phone]. [facility], in keeping with [facility] guidance, no longer requires face masks for staff, patientsor visitors in most situations. Similar to time spent indoors at other locations, there is the chance that you were exposed to respiratory viruses during your time with us (such as flu or COVID-19).? If you develop symptoms concerning for a viral respiratory infection, please seek testing (and treatment if indicated) from your medical provider or home test kit. For information about the plan of care including goals and instructions for your diagnosis, please see the patient education orders section of this document. Patient Education Materials?? The content of this educational material or handout may have been modified, supplemented, or adapted from its original content and format to support your individualized medical care. * Berta Montoya: PERFORM, SIGN, VERIFY Event Display: Patient Education/Instruction Authored Date: [id number] [facility] *[facility] Rose Danielson Clinical Summary Name CHERELLE SALAZAR Age 82 Years 1940 PCP Mercy Grewal NP PCP Visit Date 07/30/2023 13:43:00 Additional Instructions: Scheduled Appointments?? Future Appointments ?No Future Appointments Scheduled Follow-Up Instructions ?? With: Address: When: Mercy Grewal NP Within 3 months Comments: 40 minutes 3 month f/u Diagnosis Anxiety disorder, unspecified; Type 2 diabetes mellitus without complications Medications: Please continue your medications until treatment is completed or stopped by your provider. Discuss any questions related to medications with your provider. New Medications [facility] #[id number], [address], [place] [id number], [phone] Lorazepam (LORazepam 0.5 mg oral tablet) 1 tab(s) Oral twice a day. Refills: 2. Next Dose: Medications to Continue with No Changes These medications were not printed or sent to your pharmacy Aspirin (aspirin 81 mg oral tablet) 1 tab(s) Oral Daily. Next Dose: Atenolol (atenolol 50 mg oral tablet) TAKE 1 TABLET BY MOUTH EVERY DAY. Refills: 3. Next Dose: Atorvastatin (atorvastatin 80 mg oral tablet) 1 tab(s) Oral Daily. Refills: 3. Next Dose: Cyanocobalamin (Vitamin B12 1000 mcg oral tablet) 1 tab(s) Oral Daily. Next Dose: Durable Medical Equipment (FreeStyle Vivek 2 Sensors) Next Dose: Durable Medical Equipment (Freestyle Vivek Monitor) Next Dose: Durable Medical Equipment (Pen Bock, 32 G x 4 mm BD Ultra Fine III) DX: E11.9 use to inject insulin. Refills: 5. Next Dose: Fenofibrate (fenofibrate 145 mg oral tablet) 1 tab(s) Oral Daily for 90 Days. Refills: 3. Next Dose: Furosemide (furosemide 20 mg oral tablet) Take 1 tablet by mouth every day, and 2 tablets by mouth every other day.. Refills: 3. Next Dose: Insulin Detemir (insulin detemir 100 units/mL subcutaneous solution) 30 unit(s) Subcutaneous Injection Daily at Bedtime. Refills: 11. Next Dose: Lansoprazole (lansoprazole 30 mg oral enteric coated capsule) TAKE 1 CAPSULE BY MOUTH EVERY DAY. Refills: 3. Next Dose: Miscellaneous Rx (18 - 20mmHg below knee compression stockings) dx: lower extremity edema. Refills:0. Next Dose: Nitroglycerin (Nitrostat 0.4 mg sublingual tablet) 1 tab(s) Sublingual every 5 minutes as needed for chest pain. Please divide 25 tablets X 4 bottles. Refills: 2. Next Dose: semaglutide (semaglutide 2 mg/1.5 mL (0.25 mg or 0.5 mg dose) subcutaneous solution) 0.5 Milligram Subcutaneous Infusion every 7 days. Refills: 11. Next Dose: Allergy Info:?? Contrast Dye; Bactrim DS; tetracyclines Medications Given This Visit Future Orders ?No future orders Vital Signs Height 177 cm Weight 91.5 kg BMI 29.21 kg/m2 Blood Pressure 137 mm Hg/67 mm Hg Temperature Pulse Rate 69 bpm Respiratory Rate 02 Sat Mode of Delivery 100 %/ You can now view a summary of your hospital visit from the comfort of your home through a free online portal called Telestream. Telestream is a website that allows you to securely view your medical information including discharge summary, medications and follow-up visits. ??You can alsosend a secure electronic message to your doctor???s office to request appointments, renew medications or just ask a question. You can enroll at [email or web address] or register during your next office visit. Disclaimer:?? The information provided is of a general nature and is intended to be used in conjunction with the recommendations and advice of your health care practitioner. ??Every effort has been made to ensure that the information provided is accurate and complete at the time it is provided to you however, as your needs change, or, as new ??information becomes available, different or additional instructions may be required. If you have questions, please consult with your primary care provider or pharmacist, as appropriate. ??This information is not intended to serve as substitution for assessment and evaluation by a qualified health care provider. If you do not have a primary care provider, you may find a [facility] provider by calling [facility] Link at [phone]. [facility], in keeping with [facility] guidance, no longer requires face masks for staff, patientsor visitors in most situations. Similar to time spent indoors at other locations, there is the chance that you were exposed to respiratory viruses during your time with us (such as flu or COVID-19).? If you develop symptoms concerning for a viral respiratory infection, please seek testing (and treatment if indicated) from your medical provider or home test kit. For information about the plan of care including goals and instructions for your diagnosis, please see the patient education orders section of this document. Patient Education Materials?? The content of this educational material or handout may have been modified, supplemented, or adapted from its original content and format to support your individualized medical care. Patient Care team information Care Team Personnel Name: Aurora Fairbanks RN Position: [facility] SN RN Member Role: Primary Care Nurse Name: Micaela Bridges RN Position: [facility] AMB Nurse Member Role: Primary Care Nurse Name: Mi Pelaez RN Position: [facility] RN Member Role: Primary Care Nurse Name: Angela Nogueira RN Position: [facility] RN Member Role: Primary Care Nurse Name: Mercy Grewal NP Position: [facility] PCO Associate Professional Member Role: PCP Address: Address: [address] [place] [address]- Name: Cruz Hilliard RN Position: [facility] AMB Nurse Member Role: Primary Care Nurse Name: Mya Hays RN Position: [facility] SN RN Member Role: Primary Care Nurse Name: Jean Lucero MD Position: [facility] Cardiology MD Member Role: [employer] Consulting Physician Address: Address: [address] [place] [address] [place] [address] [place] Name: Chante Nielson RN Position: [facility] Environmental Solutions Engineer Member Role: Primary Care Nurse Care Team Related Persons Name: HEMALATHA SALAZAR Address: home [address] [place] [address] Name: RONALD SALAZAR Address: home [address] [place] [address]
--- OUTSIDE RECORDS SUMMARY | 2024-02-09 14:52 | XMS_ITS | Continuity of Care Document ---
Author Organization [facility] Address [address] [place] [address]- Care Team Providers Care Value Analyst Name Role Phone Vinod DOLAN, Jaya Richards Primary Care Physician [phone] [place] [facility] [place] 03/25/20 - 04/24/20 [facility] [address] [place] [address]- [facility] Attending Physician: Kofi Tolliver Admitting Physician: AdmKofi montalvo Referring Physician: [id number] Allergies, Adverse Reactions, Alerts Substance Reaction Severity Status tetracyclines rash Active Bactrim DS rash Active Contrast Dye angioedema, dyspnea Active Medications 18 - 20mmHg below knee compression stockings 18 - 20mmHg below knee compression stockings, See Instructions, # 4 pair, Refills 0, Tot. Refills 0, Maintenance, dx: lower extremity edema, 08/18/12 15:05:06 Start Date: 08/18/12 Status: Ordered aspirin 81 mg oral tablet 1 tablet = 81 mg, By Mouth, Daily, 0 Refills, Maintenance, 09/18/19 9:54:11 EST Start Date: 09/18/19 Status: Ordered Atenolol = 100 mg, By Mouth, Daily at bedtime, 0 Refills, Maintenance, 12/12/19 10:13:00 EDT Start Date: 12/12/19 Status: Ordered Ativan 0.5 mg oral tablet 1 tablet = 0.5 mg, By Mouth, 2 times a day, PRN as needed for anxiety, 0 Refills, Maintenance, 11/08/19 16:21:00 EST, Tablet Start Date: 11/08/19 Status: Ordered atorvastatin 80 mg oral tablet = 80 mg, By Mouth, Daily at bedtime, # 30 tablet, 3 Refills, Maintenance, Tablet, Route to PharmacyElectronically, [id number], [facility]/pharmacy #[id number] Start Date: 05/26/16 Status: Ordered benadryl elixir 4 oz; lidocaine viscous 2% 100 ml; mylanta or maalox 8 oz; benadryl elixir 4 oz; lidocaine viscous 2% 100 ml; mylanta or maalox 8 oz;, See Instructions, # 460mL, Refills 5, Tot. Refills 5, Maintenance, 1-2 tsp q 2-4 hrs prn. Take 5 min prior to swallowing food. Shake well before use and refrigerate unused... Start Date: 03/28/20 Status: Ordered fenofibrate 145 mg oral tablet 1 tablet = 145 mg, By Mouth, Daily, # 90 tablet, 3 Refills, Maintenance, Tablet Start Date: 09/09/12 Stop Date: 09/04/13 Status: Ordered Insulin Glargine See Instructions, 26 units Subcutaneous injection Daily at night, 0 Refills, Maintenance, 09/18/19 9:54:43 EST Start Date: 09/18/19 Status: Ordered losartan 100 mg oral tablet 1 tablet = 100 mg, By Mouth, Daily, # 90 tablet, 0 Refills, Maintenance, Tablet Start Date: 01/26/12 Status: Ordered Lyrica 75 mg oral capsule 1 capsule = 75 mg, By Mouth, 2 times a day, # 180 capsule, 3 Refills, Maintenance, 01/04/19 9:39:27EDT, Capsule Start Date: 01/04/19 Stop Date: 12/30/19 Status: Ordered Nitrostat 0.4 mg sublingual tablet 1 tablet = 0.4 mg, Sublingual, Every 5 minutes, PRN for chest pain, Please divide 25 tablets X 4 bottles, # 100 tablet, 2 Refills, Maintenance, 11/06/14 13:22:10, Tablet, 1 tablet Sublingual Every 5 minutes,PRN:for chest pain,Instr:Please divide 25 ta... Start Date: 11/06/14 Status: Ordered Norvasc 5 mg oral tablet 5 mg, 1, tablet, By Mouth, Daily, Refills 0, Maintenance, 01/03/18 14:58:30 EDT Start Date: 01/03/18 Status: Ordered Omeprazole = 20 mg, By Mouth, Daily in AM, 0 Refills, Maintenance, 05/25/16 18:03:13 Start Date: 05/25/16 Status: Ordered Problem List Condition Effective Dates Status Health Status Inform ant Diabetes mellitus(Confirmed) Active Gastrointestinal Hemorrhage(Confirmed) Active Neuropathy(Confirmed) Active Social History Social History Type Response Smoking Status Former smoker; Other : Quit 1993 without relapse; entered on: 10/22/16 Sex Medical Equipment Implanted Date:06/07/18Target Site:Eye Right Description Quantity MRI Company Model GRAFT AMNIOGRAFT 2X1.5 SIZE B - BIOT (AG-2014) 1 Bio-tissue [employer] Unknown KYLE:No Information Assigning Authority: FDA
--- OUTSIDE RECORDS SUMMARY | 2024-02-09 14:52 | XMS_ITS | Continuity of Care Document ---
Author Organization [facility] Gerard Mendez Ashish lt Address [address] [place] [address]- Care Team Providers Care Risk Control Officer Name Role Phone Uri TAVERAS, Mercy Barrett Primary Care Physician [place] [facility] [place] 05/13/23 - 06/12/23 [facility] Gerard Lairdley Adult [address] [place] [address]- Allergies, Adverse Reactions, Alerts Substance Reaction Severity Status tetracyclines rash Active Bactrim DS rash Active Contrast Dye angioedema, dyspnea Active Immunizations Given and Recorded Vaccine Date Status Refusal Reason pneumococcal 20-valent conjugate vaccine 02/09/23 Given [id number] 12y+ bivalent booster vax 07/10/22 Recorded influenza virus vaccine, inactivated 07/03/22 Brannon rded [...] influenza virus vaccine, inactivated 06/25/05 Brannon rded SARS-CoV-2 (COVID-19) mRNA BNT-162b2 vac 05/20/21 Recorded [...] Replace Required Details, Route to Pharmacy Electronically, [facility] #[id number], 177, cm, 04/19/23 14:... Start Date: 04/19/23 Status: Ordered atorvastatin 80 mg oral tablet 1 tablet = 80 mg, By Mouth, Daily, # 90 tablet, 3 Refills, Maintenance, 04/19/23 15:01:00 EDT, Tablet, [facility] #[id number], Partial fill upon patient request if the prescription is for a schedule II opioid drug., 177, cm, 04/19/23 14:26:00 EDT... Start Date: 04/19/23 Status: Ordered fenofibrate 145 mg oral tablet 1 tablet = 145 mg, By Mouth, Daily, # 90 tablet, 3 Refills, Maintenance, 04/19/23 15:02:00 EDT, Tablet, [facility] #[id number], 177, cm, 04/19/23 14:26:00 EDT, Height, 89.6, [...] Instructions Replace RequiredDetails, Route to Pharmacy Electronically, [facility]... Start Date: 04/19/23 Status: Ordered insulin detemir 100 units/mL subcutaneous solution = 30 units, Subcutaneous Injection, Daily at bedtime, # 7.8 mL, 11 Refills, Maintenance, 04/19/23 15:03:00 EDT, Solution, [facility] #[id number], Partial fill upon patient request if the prescription is for a schedule II opioid drug., 177, cm, 07... Start Date: 04/19/23 Status: Ordered lansoprazole 30 mg oral enteric coated capsule See Instructions, TAKE 1 CAPSULE BY MOUTH EVERY DAY, # 90 capsule, 3 Refills, Maintenance, 04/19/2315:04:00 EDT, [facility] #[id number], 177, cm, 04/19/23 14:26:00 EDT, Height, 89.6, kg, 02/23/23 9:24:00 EDT, Dry Weight Start Date: 04/19/23 Status: Ordered Nitrostat 0.4 mg sublingual tablet 1 tablet = 0.4 mg, Sublingual, Every 5 minutes, PRN for chest pain, Please divide 25 tablets X 4 bottles, # 100 tablet, 2 Refills, Maintenance, 04/19/23 15:05:00 EDT, [facility] #[id number], 177, cm, 04/19/23 14:26:00 EDT, Height, 89.6, k... Start Date: 04/19/23 Status: Ordered Pen [place], 32 G x 4 mm BD Ultra [...] mL, 11 Refills, Maintenance, 04/19/23 15:04:00 EDT, [facility] #[id number], Partial fill upon patient request if the [...] GERD Confirmed Active Gastrointestinal Hemorrhage Confirmed Active History of diverticulitis Confirmed Active History of [place] (myocardial infarction) Confirmed Active Hypercholesteremia Confirmed Active Hypertension Confirmed Active Throat cancer Confirmed Active Neuropathy Confirmed Active Diabetic neuritis Confirmed Active PVD (peripheral vascular disease) Confirmed Active Sick sinus syndrome Confirmed Active Presence of stent in coronary artery in patient with coronary artery disease Confirmed Active Type 2 diabetes mellitus Confirmed Active Social History Social History Type Response Smoking Status Former smoker; Other : Quit 1993 without relapse; entered on: 10/22/16 Sex Implantable Device List Procedure Provider Procedure Date Device Type Site Removal Lcuien Jhaveri MD, Jose Bae 06/07/18 Unk nown Eye Right Device Identifier Serial Number Lot or Batch Number Manufacturing Date Expiration Date Distinct Identification Code MRI Safety Implantable Status Assigning Authority Unknown [id number] Unknown Unknown 02/24/20 Unknown Unknown Active Unknown Patient Care team information Care Team Personnel Name: Aurora Fairbanks RN Position: [facility] SN RN Member Role: Primary Care Nurse Name: Micaela Bridges RN Position: [facility] AMB Nurse Member Role: Primary Care Nurse Name: Mi Pelaez RN Position: [facility] RN Member Role: Primary Care Nurse Name: Angela Nogueira RN Position: [facility] RN Member Role: Primary Care Nurse Name: Mercy Grewal NP Position: [facility] PCO Associate Professional Member Role: PCP Address: Address: [address] [place] [id number]- [place] Name: Cruz Hilliard RN Position: [facility] Nurse Member Role: Primary Care Nurse Name: Mya Hays RN Position: [facility] SN RN Member Role: Primary Care Nurse Name: Jean Lucero MD Position: [facility] Cardiology MD Member Role: Lifetime Consulting Physician Address: Address: [address] [place] [address]- [place] Name: Chante Nielson RN Position: [facility] Hospital Line Service Person Member Role: Primary Care Nurse Care Team Related Persons Name: HEMALATHA SALAZAR Address: home [address] [place] [address] Name: RONALD SALAZAR Address: home [address] [place] [address]
--- OUTSIDE RECORDS SUMMARY | 2024-02-09 14:52 | XMS_ITS | Continuity of Care Document ---
Author Organization [facility] Andrea Ashish lt Address [address] [place] [address]- Care Team Providers Care Rubbing Bed Operator Name Role Phone Uri TAVERAS, Mercy Barrett Primary Care Physician [phone] [place] [facility] [place] 03/18/23 [facility] Gerard Lairdley Adult [address] [place] [address]- Allergies, Adverse Reactions, Alerts Substance Reaction Severity Status tetracyclines rash Active Bactrim DS rash Active Contrast Dye angioedema, dyspnea Active Immunizations Given and Recorded Vaccine Date Status Refusal Reason pneumococcal 20-valent conjugate vaccine 02/09/23 Given [id number] 12y+ bivalent booster vax 07/10/22 Recorded influenza [...] EVERY DAY, # 90 tablet, Refills 3, Maintenance, 02/16/23 10:39:00 EDT, Instructions Replace Required Details, Route to Pharmacy Electronically, [id number], 175, cm, 02/09/23 11:14:00 EDT, Height, 89.2, kg,... Start Date: 02/16/23 Status: Ordered atorvastatin 80 mg oral tablet 1 tablet = 80 mg, By Mouth, Daily, # 90 tablet, 3 Refills, Maintenance, 02/16/23 16:53:00 EDT, Tablet, [facility]/pharmacy #[id number], Partial fill upon patient request if the prescription is for a schedule II opioid drug., 175, cm, 02/09/23 11:14:00 EDT, Height,... Start Date: 02/16/23 Status: Ordered fenofibrate 145 mg oral tablet 1 tablet = 145 mg, By Mouth, Daily, # 90 tablet, 3 Refills, Maintenance, 02/16/23 16:53:00 EDT, Tablet, [facility]/pharmacy #[id number], 175, cm, 02/09/23 11:14:00 EDT, Height, 89.2, kg, 12/09/22 10:50:00 EST, Dry Weight Start Date: 02/16/23 Stop Date: 02/11/24 Status: Ordered FreeStyle Vivek 2 Sensors Maintenance, 02/09/23 11:23:00 EDT, Supply Start Date: 02/09/23 Status: Ordered Freestyle Vivek Monitor Maintenance, 02/09/23 11:23:00 EDT, Supply Start Date: 02/09/23 Status: Ordered furosemide 20 mg oral tablet See Instructions, Take 1 tablet by mouth every day, and 2 tablets by mouth every other day., # 135 tablet, Refills 3, Tot. Refills 3, Maintenance, 02/16/23 17:06:00 EDT, Instructions Replace RequiredDetails, Route to Pharmacy Electronically, [facility]/phar... Start Date: 02/16/23 Status: Ordered insulin detemir 100 units/mL subcutaneous solution = 30 units, Subcutaneous Injection, Daily at bedtime, # 7.8 mL, 11 Refills, Maintenance, 02/16/23 17:03:00 EDT, Solution, [id number], Partial fill upon patient request if the prescription is for a schedule II opioid drug., 175, cm, 02/09/23 11... Start Date: 02/16/23 Status: Ordered lansoprazole 30 mg oral enteric coated capsule See Instructions, TAKE 1 CAPSULE BY MOUTH EVERY DAY, # 90 capsule, 3 Refills, Maintenance, 02/16/2310:39:00 EDT, [id number], 175, cm, 02/09/23 11:14:00 EDT, Height, 89.2, kg, 12/09/22 10:50:00 EST, Dry Weight Start Date: 02/16/23 Status: Ordered LORazepam 0.5 mg oral tablet 0.5 tablet = 0.25 mg, By Mouth, 2 times a day, # 60 tablet, 2 Refills, Acute 05/12/23 21:00:00 EDT,02/09/23 12:04:00 EDT, Tablet, [id number], Partial fill upon patient request if the prescription is for a schedule II opioid drug., 175, cm, 05... Start Date: 02/09/23 Stop Date: 05/12/23 Status: Ordered Nitrostat 0.4 mg sublingual tablet 1 tablet = 0.4 mg, Sublingual, Every 5 minutes, PRN for chest pain, Please divide 25 tablets X 4 bottles, # 100 tablet, 2 Refills, Maintenance, 11/06/14 13:22:10, Tablet, 1 tablet Sublingual Every 5 minutes,PRN:for chest pain,Instr:Please divide 25 ta... Start Date: 11/06/14 Status: Ordered NovoLOG FlexPen 100 units/mL subcutaneous solution See Instructions, Subcutaneous Injection, Use as directed for Diabetes mellitus type 1. (Max Dose =50 units/day), # 3 each, 5 Refills, Maintenance, 02/09/23 11:21:00 EDT, Partial fill upon patient request if the prescription is for a schedule II opio... Start Date: 02/09/23 Stop Date: 03/11/23 Status: Ordered Pen [place], 32 G x 4 mm BD Ultra Fine III See instructions, # 600 each, Refills 5, Tot. Refills 5, Maintenance, use as directed for Type 1 Diabetes Mellitus, 02/16/23 17:20:00 EDT, Supply, 175, cm, 02/09/23 11:14:00 EDT, Height, 89.2, kg, 12/09/22 10:50:00 EST, Dry Weight Start Date: 02/16/23 Stop Date: 08/09/24 Status: Ordered semaglutide 2 mg/1.5 mL (0.25 mg or 0.5 mg dose) subcutaneous solution = 0.5 mg, Subcutaneous Infusion, Every 7 days, # 2 mL, 11 Refills, Maintenance, 02/19/23 15:45:00 EDT, [facility][id number], Partial fill upon patient request if the prescription is for a schedule II opioid drug., 0.5 mg Subcutaneous Infusion E... Start Date: 02/19/23 Status: Ordered Vitamin B12 1000 mcg oral [...] History of diverticulitis Confirmed Active History of [place] (myocardial infarction) Confirmed Active Hypercholesteremia Confirmed Active [...] Provider Procedure Date Device Type Site Removal Jose Morales MD 06/07/18 Unk nown Eye Right Device Identifier Serial Number Lot or Batch Number Manufacturing Date Expiration Date Distinct Identification Code MRI Safety Implantable Status Assigning Authority Unknown [id number] Unknown Unknown 02/24/20 Unknown Unknown Active Unknown Patient Care team information Care Team Personnel Name: Aurora Fairbanks RN Position: [facility] SN RN Member Role: Primary Care Nurse Name: Micaela Bridges RN Position: [facility] AMB Nurse Member Role: Primary Care Nurse Name: Mi Pelaez RN Position: [facility] RN Member Role: Primary Care Nurse Name: Angela Nogueira RN Position: [facility] RN Member Role: Primary Care Nurse Name: Mercy Grewal NP Position: [facility] PCO Associate Professional Member Role: PCP Address: Address: [address] [place] [phone]- [place] Name: Cruz Hilliard RN Position: [facility] AMB Nurse Member Role: Primary Care Nurse Name: Jean Lucero MD Position: [facility] Cardiology MD Member Role: Lifetime Consulting Physician Address: Address: [address] [place] [address]- [place] Name: Chante Nielson RN Position: [facility] Hospital Therapist Rrt Member Role: Primary Care Nurse Care Team Related Persons Name: HEMALATHA SALAZAR Address: [address] [place] [address] Name: RONALD SALAZAR Address: [address] [place] [address]
--- OUTSIDE RECORDS SUMMARY | 2024-02-09 14:52 | XMS_ITS | Continuity of Care Document ---
Author Organization [facility] Andrea Ashish lt Address [address] [place] [address]- Care Team Providers Care Shift Superintendent Caustic Cresylate Name Role Phone Uri TAVERAS, Mercy Barrett Primary Care Physician [phone] Encounter [facility] [place] 11/05/23 - 11/12/23 [facility] Adult [address] [place] [address]- Encounter Diagnosis Obstructive sleep apnea(Discharge Diagnosis) - 11/05/23 Hypertension(Discharge Diagnosis) - 11/05/23 Hypercholesteremia(Discharge Diagnosis) - 11/05/23 [facility] prescription benzodiazepine use(Discharge Diagnosis) - 11/05/23 Stage 3b chronic kidney disease (CKD)(Discharge Diagnosis) - 11/05/23 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, 177, cm, 04/19/23 14:... Start Date: 04/19/23 Status: Ordered atorvastatin 80 mg oral tablet 1 tablet = 80 mg, By Mouth, Daily, # 90 tablet, 3 Refills, Maintenance, 04/19/23 15:01:00 EDT, Tablet, [facility] #[id number], Partial fill upon patient request if the prescription is for a schedule II opioid drug., 177, cm, 04/19/23 14:26:00 EDT... Start Date: 04/19/23 Status: Ordered fenofibrate 145 mg oral tablet 1 tablet = 145 mg, By Mouth, Daily, # 90 tablet, 3 Refills, Maintenance, 04/19/23 15:02:00 EDT, Tablet, [facility] #[id number], 177, cm, 04/19/23 14:26:00 EDT, Height, 89.6, [...] 11 Refills, Maintenance, 04/19/23 15:03:00 EDT, Solution, [facility] #[id number], Partial fill upon patient request if the prescription is for a schedule II opioid drug., 177, cm, 07... Start Date: 04/19/23 Status: Ordered lansoprazole 30 mg oral enteric coated capsule See Instructions, TAKE 1 CAPSULE BY MOUTH EVERY DAY, # 90 capsule, 3 Refills, Maintenance, 04/19/2315:04:00 EDT, [facility] #[id number], 177, cm, 04/19/23 14:26:00 EDT, Height, 89.6, kg, 02/23/23 9:24:00 EDT, Dry Weight Start Date: 04/19/23 Status: Ordered LORazepam 0.5 mg oral tablet 1 tablet = 0.5 mg, By Mouth, 2 times a day, # 60 tablet, 2 Refills, Acute 03/01/24 21:00:00 EDT, 12/02/23 7:00:00 EST, Tablet, [facility] #[id number], Partial fill upon patient request if the prescription is for a schedule II opioid drug., ... Start Date: 12/02/23 Stop Date: 03/01/24 Status: Ordered Nitrostat 0.4 mg sublingual tablet 1 tablet = 0.4 mg, Sublingual, Every 5 minutes, PRN for chest pain, Please divide 25 tablets X 4 bottles, # 100 tablet, 2 Refills, Maintenance, 04/19/23 15:05:00 EDT, Tablet, [facility] #[id number], 177, cm, 04/19/23 14:26:00 EDT, Height, 89.6, k... Start Date: 04/19/23 Status: Ordered Pen [place], 32 G x 4 mm BD Ultra [...] mL, 11 Refills, Maintenance, 04/19/23 15:04:00 EDT, [facility] #[id number], Partial fill upon patient request if the [...] (CKD) Confirmed Active Diabetes mellitus Confirmed Active Diabetes mellitus with chronic kidney disease Confirmed Active Diabetes mellitus with diabetic neuropathy Confirmed Active Chronic GERD Confirmed Active Gastrointestinal Hemorrhage Confirmed Active H/O: cardiac pacemaker in situ 1 Confirmed 12/30/17 Active History of diverticulitis Confirmed Active History of diverticulitis Confirmed 07/07/23 Active History of [place] (myocardial infarction) Confirmed Active Hypercholesteremia Confirmed Active Hypertension Confirmed Active [facility] prescription benzodiazepine use Confirmed Active Throat cancer Confirmed Active Malignant [...] Diagnosis Diagnosis Type Effective Dates Health Status Clinical Service Informant Obstructive sleep apnea Discharge Diagnosis 11/05/23 Hypertension Discharge Diagnosis 11/05/23 Hypercholesteremia Discharge Diagnosis 11/05/23 terminologist prescription benzodiazepine use Discharge Diagnosis 11/05/23 Stage 3b chronic kidney disease (CKD) Discharge Diagnosis 11/05/23 Diabetes mellitus with chronic kidney disease Discharge Diagnosis 11/05/23 Diabetes mellitus with diabetic neuropathy Discharge Diagnosis 11/05/23 Vital Signs Most recent to oldest [Reference Range]: 1 Height 177 cm (11/05/23 1:51 PM) Weight 91.2 kg (11/05/23 1:51 PM) Oxygen Saturation [94-100 %] 97 % (11/05/23 1:51 PM) Pulse Rate [55-90 bpm] 69 bpm (11/05/23 1:51 PM) Body Mass Index [18.5-24.99 kg/m2] 29.11 kg/m2 *H* (11/05/23 1:51 PM) Blood Pressure [90-138/55-84 mm Hg] 135/ 63mm Hg (11/05/23 1:51 PM) Blood pressure sites Arm, left (11/05/23 1:51 PM) Weight Obtained Via Standing scale (11/05/23 1:51 PM) Social History Social History Type Response [...] Team Personnel Name: Aurora Fairbanks RN Position: [facility] SN RN Member Role: Primary Care Nurse Name: Micaela Bridges RN Position: [facility] Nurse Member Role: Primary Care Nurse Name: Mi Pelaez RN Position: [facility] RN Member Role: Primary Care Nurse Name: Angela Nogueira RN Position: [facility] RN Member Role: Primary Care Nurse Name: Mercy Grewal NP Position: [facility] PCO Associate Professional Member Role: PCP Address: Address: [address] [place] [address]- Name: Cruz Hilliard RN Position: [facility] Nurse Member Role: Primary Care Nurse Name: Mya Hays RN Position: [facility] SN RN Member Role: Primary Care Nurse Name: Jean Lucero MD Position: [facility] Cardiology MD Member Role: Lifetime Consulting Physician Address: Address: [address] [place] [address]- [place] Name: Chante Nielson RN Position: [facility] Requirements Manager Member Role: Primary Care Nurse Care Team Related Persons Name: HEMALATHA SALAZAR Address: home [address] [place] [address] Name: RONALD SALAZAR Address: home [address] [place] [address]
--- OUTSIDE RECORDS SUMMARY | 2024-02-09 14:52 | XMS_ITS | Continuity of Care Document ---
Author Organization [facility] Andrea Ashish lt Address [address] [place] [address]- Care Team Providers Care Finance Broker Name Role Phone Uri TAVERAS, Mercy Barrett Primary Care Physician Encounter [facility] [place] Date(s): 03/24/23 - 04/23/23 [facility] Andrea Adult [address] [place] [address]- Allergies, Adverse Reactions, Alerts Substance Reaction Severity Status tetracyclines rash Active Bactrim DS rash Active Contrast Dye angioedema, dyspnea Active Immunizations Given and Recorded Vaccine Date Status Refusal Reason pneumococcal 20-valent conjugate vaccine 02/09/23 Given [id number] 12y+ bivalent booster vax 07/10/22 Recorded influenza [...] Replace Required Details, Route to Pharmacy Electronically, [facility] #[id number], 177, cm, 04/19/23 14:... Start Date: 04/19/23 Status: Ordered atorvastatin 80 mg oral tablet 1 tablet = 80 mg, By Mouth, Daily, # 90 tablet, 3 Refills, Maintenance, 04/19/23 15:01:00 EDT, Tablet, [facility] #[id number], Partial fill upon patient request if the prescription is for a schedule II opioid drug., 177, cm, 04/19/23 14:26:00 EDT... Start Date: 04/19/23 Status: Ordered fenofibrate 145 mg oral tablet 1 tablet = 145 mg, By Mouth, Daily, # 90 tablet, 3 Refills, Maintenance, 04/19/23 15:02:00 EDT, Tablet, [facility] #[id number], 177, cm, 04/19/23 14:26:00 EDT, Height, 89.6, [...] Instructions Replace RequiredDetails, [facility] Start Date: 04/19/23 Status: Ordered insulin detemir 100 units/mL subcutaneous solution = 30 units, Subcutaneous Injection, Daily at bedtime, # 7.8 mL, 11 Refills, Maintenance, 04/19/23 15:03:00 EDT, Solution, [facility] #[id number], Partial fill upon patient request if the prescription is for a schedule II opioid drug., 177, cm, 07... Start Date: 04/19/23 Status: Ordered lansoprazole 30 mg oral enteric coated capsule See Instructions, TAKE 1 CAPSULE BY MOUTH EVERY DAY, # 90 capsule, 3 Refills, Maintenance, 04/19/2315:04:00 EDT, [facility] #[id number], 177, cm, 04/19/23 14:26:00 EDT, Height, 89.6, kg, 02/23/23 9:24:00 EDT, Dry Weight Start Date: 04/19/23 Status: Ordered LORazepam 0.5 mg oral tablet 1 tablet = 0.5 mg, By Mouth, 2 times a day, # 60 tablet, 2 Refills, Acute 05/20/23 21:00:00 EDT, 04/19/23 14:54:00 EDT, [facility] #[id number], Partial fill upon patient request if the prescription is for a schedule II opioid drug., 177,... Start Date: 04/19/23 Stop Date: 05/20/23 Status: Ordered Nitrostat 0.4 mg sublingual tablet 1 tablet = 0.4 mg, Sublingual, Every 5 minutes, PRN for chest pain, Please divide 25 tablets X 4 bottles, # 100 tablet, 2 Refills, Maintenance, 04/19/23 15:05:00 EDT, Tablet, [facility] #[id number], 177, cm, 04/19/23 14:26:00 EDT, Height, 89.6, k... Start Date: 04/19/23 Status: Ordered Pen [place], 32 G x 4 mm BD Ultra [...] mL, 11 Refills, Maintenance, 04/19/23 15:04:00 EDT, [facility] #[id number], Partial fill upon patient request if the [...] History of diverticulitis Confirmed Active History of [place] (myocardial infarction) Confirmed Active Hypercholesteremia Confirmed Active [...] Team Personnel Name: Aurora Fairbanks RN Position: [facility] RN Member Role: Primary Care Nurse Name: Micaela Bridges RN Position: [facility] AMB Nurse Member Role: Primary Care Nurse Name: Mi Pelaez RN Position: [facility] RN Member Role: Primary Care Nurse Name: Angela Nogueira RN Position: [facility] RN Member Role: Primary Care Nurse Name: Mercy Grewal NP Position: [facility] PCO Associate Professional Member Role: PCP Address: Address: [address] [place] [address]- Name: Cruz Hilliard RN Position: [facility] Nurse Member Role: Primary Care Nurse Name: Jean Lucero MD Position: [facility] Cardiology MD Member Role: Lifetime Consulting Physician Address: Address: [address] [place] [address] [place] [address]- [place] Name: Chante Nielson RN Position: [facility] Hospital Sap Gatherer Member Role: Primary Care Nurse Care Team Related Persons Name: HEMALATHA SALAZAR Address: home [address] [place] [address] Name: RONALD SALAZAR Address: home [address] [place] [address]
--- OUTSIDE RECORDS SUMMARY | 2024-02-09 14:52 | XMS_ITS | Continuity of Care Document ---
Author Organization [facility] Address [address] [place] [address]- Care Team Providers Care [employer] Scout Name Role Phone Vinod DOLAN, Jaya Richards Primary Care Physician [place] [facility] [place](s[place] 03/26/20 - 04/25/20 [facility] [address] [place] [address]- [facility] Attending Physician: Kofi Tolliver Admitting Physician: [...] 3 Refills, Maintenance, Tablet, Route to PharmacyElectronically, [id number], [facility] #[id number] Start Date: 05/26/16 Status: Ordered benadryl [...] GRAFT AMNIOGRAFT 2X1.5 SIZE B - BIOT () 1 [employer] Unknown KYLE:No Information Assigning Authority: FDA
--- OUTSIDE RECORDS SUMMARY | 2024-02-09 14:52 | XMS_ITS | Continuity of Care Document ---
Author Organization [facility] Andrea Ashish lt Address [address] [place] [address]- Care Team Providers Care Director Of Market Research Name Role Phone Uri TAVERAS, Mercy Barrett Primary Care Physician [place] [facility] [place] Date(s): 11/05/23 - 12/05/23 [facility] Adult [address] [place] [address]- Allergies, Adverse Reactions, Alerts Substance Reaction Severity [...] rded pneumococcal 20-valent conjugate vaccine 02/09/23 Given [id number] 12y+ bivalent booster vax 07/10/22 Recorded SARS-CoV-2 [...] Replace Required Details, Route to Pharmacy Electronically, [facility] #[id number], 177, cm, 04/19/23 14:... Start Date: 04/19/23 Status: Ordered atorvastatin 80 mg oral tablet 1 tablet = 80 mg, By Mouth, Daily, # 90 tablet, 3 Refills, Maintenance, 04/19/23 15:01:00 EDT, Tablet, [facility] #[id number], Partial fill upon patient request if the prescription is for a schedule II opioid drug., 177, cm, 04/19/23 14:26:00 EDT... Start Date: 04/19/23 Status: Ordered fenofibrate 145 mg oral tablet 1 tablet = 145 mg, By Mouth, Daily, # 90 tablet, 3 Refills, Maintenance, 04/19/23 15:02:00 EDT, Tablet, [facility] #[id number], 177, cm, 04/19/23 14:26:00 EDT, Height, 89.6, [...] 11 Refills, Maintenance, 04/19/23 15:03:00 EDT, Solution, [facility] #[id number], Partial fill upon patient request if the prescription is for a schedule II opioid drug., 177, cm, 07... Start Date: 04/19/23 Status: Ordered lansoprazole 30 mg oral enteric coated capsule See Instructions, TAKE 1 CAPSULE BY MOUTH EVERY DAY, # 90 capsule, 3 Refills, Maintenance, 04/19/2315:04:00 EDT, [facility] #[id number], 177, cm, 04/19/23 14:26:00 EDT, Height, 89.6, kg, 02/23/23 9:24:00 EDT, Dry Weight Start Date: 04/19/23 Status: Ordered LORazepam 0.5 mg oral tablet 1 tablet = 0.5 mg, By Mouth, 2 times a day, # 60 tablet, 2 Refills, Acute 03/01/24 21:00:00 EDT, 12/02/23 7:00:00 EST, Tablet, [facility] #[id number], Partial fill upon patient request if the prescription is for a schedule II opioid drug., 11/30/... Start Date: 12/02/23 Stop Date: 03/01/24 Status: Ordered Nitrostat 0.4 mg sublingual tablet 1 tablet = 0.4 mg, Sublingual, Every 5 minutes, PRN for chest pain, Please divide 25 tablets X 4 bottles, # 100 tablet, 2 Refills, Maintenance, 04/19/23 15:05:00 EDT, Tablet, [facility] #[id number], 177, cm, 04/19/23 14:26:00 EDT, Height, 89.6, k... 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 Full report under separate cover. Social History Social History Type Response Smoking Status Former smoker; Other : Quit 1993 without relapse; entered on: 10/22/16 Sex Implantable Device List Procedure Provider Procedure Date Device Type Site Removal Jose Morales MD 06/07/18 Unk nown Eye Right Device Identifier Serial Number Lot or Batch Number Manufacturing Date Expiration Date Distinct Identification Code MRI Safety Implantable Status Assigning Authority Unknown -[id number] Unknown Unknown 02/24/20 Unknown Unknown Active Unknown Patient Care team information Care Team Personnel Name: Aurora Fairbanks RN Position: [facility] SN RN Member Role: Primary Care Nurse Name: Micaela Bridges RN Position: [facility] AMB Nurse Member Role: Primary Care Nurse Name: Mi Pelaez RN Position: [facility] RN Member Role: Primary Care Nurse Name: Angela Nogueira RN Position: [facility] RN Member Role: Primary Care Nurse Name: Mercy Grewal NP Position: [facility] PCO Associate Professional Member Role: PCP Address: Address: [address] [place] [address]- Name: Cruz Hilliard RN Position: [facility] AMB Nurse Member Role: Primary Care Nurse Name: Mya Hays RN Position: [facility] SN RN Member Role: Primary Care Nurse Name: Jean Lucero MD Position: [facility] Cardiology MD Member Role: Lifetime Consulting Physician Address: Address: [address] [place] [address]- [place] Name: Chante Nielson RN Position: [facility] Hospital Central Office Frame Wirer Member Role: Primary Care Nurse Care Team Related Persons Name: HEMALATHA SALAZAR Address: home [address] [place] [address] Name: RONALD SALAZAR Address: home [address] [place] [address]
--- OUTSIDE RECORDS SUMMARY | 2024-02-09 14:52 | XMS_ITS | Continuity of Care Document ---
Author Organization [facility] ter Address [address] [place] [address]- Care Team Providers Care Station Master Name Role Phone Vinod DOLAN, Jaya Richards Primary Care Physician [place] [facility] Date([place]): 11/09/19 - 11/10/[address] [address]- [facility] Encounter Diagnosis Influenza A(Final) - 11/08/19 Hoarseness, persistent(Final) - 11/08/19 Fatigue(Final) - 11/08/19 Discharge Disposition: A-D/C Home Attending Physician: Aldo Mccormick MD Admitting Physician: Aldo Mccormick MD Referring Physician: Not on Staff, Referring MD Allergies, Adverse Reactions, Alerts Substance Reaction Severity Status tetracyclines rash Active Bactrim DS rash Active Contrast Dye angioedema, dyspnea Active Medications 18 - 20mmHg below knee compression stockings 18 - 20mmHg below knee compression stockings, See Instructions, # 4 pair, Refills 0, Tot. Refills 0, Maintenance, dx: lower extremity edema, 08/18/12 15:05:06 Start Date: 08/18/12 Status: Ordered Allopurinol Tablet 300 mg, By Mouth, Daily, Maintenance, 01/26/12 15:38:37 Start Date: 01/26/12 Status: Ordered aspirin 81 mg oral tablet 1 tablet = 81 mg, By Mouth, Daily, 0 Refills, Maintenance, 09/18/19 9:54:11 EST Start Date: 09/18/19 Status: Ordered atenolol 25 mg oral tablet 50 mg, 2, tablet, By Mouth, Daily, # 30 tablet, Refills 0, Maintenance, 05/23/16 19:27:47 Start Date: 05/23/16 Status: Ordered Ativan 0.5 mg oral tablet 1 tablet = 0.5 mg, By Mouth, 2 times a day, PRN as needed for anxiety, 0 Refills, Maintenance, 11/08/19 16:21:00 EST, Tablet Start Date: 11/08/19 Status: Ordered atorvastatin 80 mg oral tablet = 80 mg, By Mouth, Daily at bedtime, # 30 tablet, 3 Refills, Maintenance, Tablet, Route to PharmacyElectronically, [id number], [facility]/pharmacy #[id number] Start Date: 05/26/16 Status: Ordered fenofibrate 145 mg oral tablet 1 tablet = 145 mg, By Mouth, Daily, # 90 tablet, 3 Refills, Maintenance, Tablet Start Date: 09/09/12 Stop Date: 09/04/13 Status: Ordered glipiZIDE 5 mg oral tablet, extended release See Instructions, 10 mg po in AM and 5 mg po 9 pm, 0 Refills, Maintenance, 06/07/18 6:30:53 EDT, ERTablet Start Date: 06/07/18 Status: Ordered Insulin Glargine = 14 units, Subcutaneous Infusion, Daily, 0 Refills, Maintenance, 09/18/19 9:54:43 EST Start Date: 09/18/19 Status: Ordered Levaquin 500 mg oral tablet 1 tablet = 500 mg, By Mouth, Every 24 hours, for 4 days, # 4 tablet, 0 Refills, Acute 11/14/19 11:28:00 EST, 11/10/19 11:28:00 EST, Tablet, [facility]/pharmacy #[id number], 175, cm, 11/10/19 11:15:00 EST, Height,100.2, kg, 11/08/19 15:47:00 EST, Dry Weight Start Date: 11/10/19 Stop Date: 11/14/19 Status: Ordered losartan 100 mg oral tablet 1 tablet = 100 mg, By Mouth, Daily, # 90 tablet, 0 Refills, Maintenance, Tablet Start Date: 01/26/12 Status: Ordered Lyrica 75 mg oral capsule 1 capsule = 75 mg, By Mouth, 2 times a day, # 180 capsule, 3 Refills, Maintenance, 01/04/19 9:39:27EDT, Capsule Start Date: 01/04/19 Stop Date: 12/30/19 Status: Ordered mirabegron 50 mg oral tablet, extended release 1 tablet = 50 mg, By Mouth, Daily, 0 Refills, Maintenance, 09/18/19 9:54:24 EST Start Date: 09/18/19 Status: Ordered Nitrostat 0.4 mg sublingual tablet [...] 05/25/16 18:03:13 Start Date: 05/25/16 Status: Ordered oseltamivir 30 mg oral capsule 1 capsule = 30 mg, By Mouth, 2 times a day, for 3 days, # 6 capsule, 0 Refills, Acute 11/13/19 11:28:00 EST, 11/10/19 11:28:00 EST, Capsule, [facility]/pharmacy #[id number], 175, cm, 11/10/19 11:15:00 EST, Height, 100.2, kg, 11/08/19 15:47:00 EST, Dry Weight Start Date: 11/10/19 Stop Date: 11/13/19 Status: Ordered Problem List Condition Effective Dates Status Health Status Inform ant Diabetes mellitus(Confirmed) Active Gastrointestinal Hemorrhage(Confirmed) Active Neuropathy(Confirmed) Active Results Orders for Microbiology Reports Name Date Sputum Culture w/ Gram Smear 11/08/19 Blood Culture 11/08/19 Blood Culture #2 11/08/19 Microbiology Reports TEST:Sputum Culture STATUS:Unauthenticated BODY SITE: SOURCE:INDUCE COLLECTED DATE/TIME:11/08/19 10:00 PM Sputum Culture SPECIMEN DESCRIPTION : INDUCED SPUTUM SPECIAL REQUESTS : NONE GRAM STAIN : 3+ POLYMORPHONUCLEAR LEUKOCYTES 2+ SQ.EPITHELIAL CELLS 4+ GRAM POSITIVE COCCI 3+ GRAM NEGATIVE RODS CULTURE : NORMAL SO FAR REPORT STATUS : PRELIMINARY REPORT TEST:Blood Culture, Second Order STATUS:Unauthenticated BODY SITE: SOURCE:Blood COLLECTED DATE/TIME:11/08/19 10:05 AM Blood Culture, Second Order SPECIMEN DESCRIPTION : BLOOD RAC SPECIAL REQUESTS : NONE CULTURE : NO GROWTH AFTER 48 HOURS REPORT STATUS : PRELIMINARY REPORT TEST:Blood Culture STATUS:Unauthenticated BODY SITE: SOURCE:Blood COLLECTED DATE/TIME:11/08/19 9:36 AM Blood Culture SPECIMEN DESCRIPTION : BLOOD RAC SPECIAL REQUESTS : NONE CULTURE : NO GROWTH AFTER 48 HOURS REPORT STATUS : PRELIMINARY REPORT Radiology Reports * Exam Date Time Procedure Performing Provider Status 11/08/19 9:22 AM Chest 2 Views Frontal and Lat Archambea u, Litzy; Auth (Verified) Notes: (Chest 2 Views Frontal and Lat) Reason For Exam: Shortness of Breath, Fever;Other: RESULT: Chest 2 Views Frontal and Lat Chest 2 Views Frontal and Lat INDICATION: Shortness of breath. COMPARISON: Multiple priors, most recent 05/23/2016. FINDINGS: LINES AND TUBES: Triple-lead left subclavian pacer/AICD wires are intact. LUNGS AND PLEURA: Low lung volumes with bronchovascular crowding. Retrocardiac opacity, better seen on the lateral view likely right lower lobe on the frontal radiograph. No pleural effusion or pneumothorax. HEART, MEDIASTINUM AND EMILIA: Heart is at the upper limits of normal for size. Remote CABG. Normal mediastinal and hilar contour. BONES AND SOFT TISSUES: No acute osseous abnormality. Moderate degenerative changes of the visualized spine with anterior osteophytes. Sternotomy wires are intact. Elevated right hemidiaphragm, unchanged. IMPRESSION: Retrocardiac opacity, suggestive of a developing infiltrate and pneumonia in the proper clinical setting versus atelectasis. Prominent central vascularity without overt edema. I have personally reviewed the images and I agree with this report. WSN: [id number] Dictated By: Kings Carrillo MD Dictated Date/Time: 11/08/19 10:19 a Reviewed By: Dwayne Mandujano MD Signed By: Dwayne Mandujano MD Signed Date/Time: 11/08/19 10:24 am Transcribed By: MARSHAL Transcribed Date/Time: 11/08/19 9:28 am Vital Signs Most recent to oldest [Reference Range]: 1 2 3 Height 175 cm (11/10/19 11:15 AM) 175 cm (11/10/19 8:31 AM) 175 cm (11/10/19 5:00 AM) Weight 100.1 kg (11/09/19 3:58 AM) 100.2 kg (11/08/19 2:45 PM) Oxygen Saturation [94-100 %] 97 % (11/10/19 11:15 AM) 98 % (11/10/19 8:31 AM) 97 % (11/10/19 5:00 AM) Pulse Rate [55-90 bpm] 72 bpm (11/10/19 11:15 AM) 70 bpm (11/10/19 8:46 AM) 70 bpm (11/10/19 8:31 AM) Body Mass Index [18.5-24.99] 32.69 *>HHI* (11/09/19 3:58 AM) 32.72 *>HHI* (11/08/19 2:45 PM) Blood Pressure [90-138/55-84 mm Hg] 155/76mm Hg *H* (11/10/19 11:15 AM) 158/69mm Hg *H* (11/10/19 8:46 AM) 158/69mm Hg *H* (11/10/19 8:46 AM) Respiratory Rate [16-30 br/min] 18 br/min (11/10/19 11:15 AM) 18 br/min (11/10/19 8:31 AM) 18 br/min (11/10/19 5:00 AM) Temperature [96.8-100.4 DegF] 98.3 DegF (11/10/19 11:15 AM) 98.4 DegF (11/10/19 8:31 AM) 98.1 DegF (11/10/19 5:00 AM) Liters per Minute 2 L/min (11/08/19 11:38 AM) 2 L/min (11/08/19 9:01 AM) Mode of Delivery (Oxygen) Room air (11/10/19 11:15 AM) Room air (11/10/19 8:31 AM) Room air (11/10/19 5:00 AM) Blood pressure sites Arm, left (11/10/19 11:15 AM) Arm, left (11/10/19 8:31 AM) Arm, left (11/10/19 5:00 AM) Temperature Route Oral (11/10/19 11:15 AM) Oral (11/10/19 8:31 AM) Oral (11/10/19 5:00 AM) Dry Weight 100.2 kg (11/08/19 2:45 PM) Weight Obtained Via Bed scale (11/09/19 3:58 AM) Bed scale (11/08/19 2:45 PM) Sensory deficits None (11/08/19 2:45 PM) Mobility assistance Partial assistance (11/08/19 2:45 PM) Social History Social History Type Response Smoking Status Former smoker; Other : Quit 1993 without relapse; entered on: 10/22/16 Sex Medical Equipment Implanted Date:06/07/18Target Site:Eye Right Description Quantity MRI Company Model GRAFT AMNIOGRAFT 2X1.5 SIZE B - BIOT () 1 [employer] Unknown KYLE:No Information Assigning Authority: FDA
--- OUTSIDE RECORDS SUMMARY | 2024-02-09 14:52 | XMS_ITS | Continuity of Care Document ---
Author Organization [facility] Address [address] [place] [address]- Care Team Providers Care Global Position System Technician Name Role Phone Bharathi Branch Primary Care Physician [facility]counter [facility] [id number] Date(s): 06/09/22 - 08/17/22 [facility] [address] [place] [address]- Discharge Disposition: A-D/C Home Attending Physician: Jaya Finley MD Admitting Physician: Jaya Finley MD Referring Physician: Julius Wiggins MD Allergies, Adverse Reactions, Alerts Substance Reaction [...] Start Date: 09/18/19 Status: Ordered Atenolol = 50 mg, By Mouth, Daily at bedtime, 0 [...] 3 Refills, Maintenance, Tablet, Route to PharmacyElectronically, [id number], [facility]/pharmacy #[id number] Start Date: 05/26/16 Status: Ordered Basic metabolic panel Basic metabolic panel, See Instructions, # 1 each, Refills 0, Tot. Refills 0, Maintenance, Please send results to OSWALDO Gallegos (patient's PCP), 03/08/22 12:30:00 EDT, Supply Start Date: 03/08/22 Status: Ordered fenofibrate 145 mg oral tablet 1 tablet = 145 mg, By Mouth, Daily, # 90 tablet, 3 Refills, Maintenance, Tablet Start Date: 09/09/12 Stop Date: 09/04/13 Status: Ordered furosemide 20 mg oral tablet See Instructions, Alternate 20mg then 40mg once per day every other day, Refills 0, Maintenance, 01/08/22 10:55:00 EDT, Instructions Replace Required Details, Partial fill upon patient request if theprescription is for a schedule II opioid drug. Start Date: 01/08/22 Status: Ordered Insulin Glargine See Instructions, 26 [...] Status: Ordered Norvasc 5 mg oral tablet 2.5 mg, 0.5, tablet, By Mouth, Daily, Refills 0, Maintenance, 01/03/18 14:58:30 EDT Start Date: 01/03/18 Status: Ordered Omeprazole = 20 mg, By Mouth, Daily in AM, 0 Refills, Maintenance, 05/25/16 18:03:13 Start Date: 05/25/16 Status: Ordered Problem List Condition Confirmation Course Effective Dates Status H ealth Status Informant AAA (abdominal aortic aneurysm) Confirmed Active Acute hypoxemic respiratory failure Confirmed Active Bacterial pneumonia Confirmed Active Diabetes mellitus Confirmed Active Gastrointestinal Hemorrhage Confirmed Active Neuropathy Confirmed Active Vital Signs Most recent to oldest [Reference Range]: 1 Height 175 cm (06/17/22 10:08 AM) Weight 88.2 kg (06/17/22 10:08 AM) Pulse Rate [55-90 bpm] 70 bpm (06/17/22 10:08 AM) Body Mass Index [18.5-24.99] 28.8 *H* (06/17/22 10:08 AM) Blood Pressure [90-138/55-84 mm Hg] 141/ 76mm Hg *H* (06/17/22 10:08 AM) Temperature [96.8-100.4 DegF] 96.6 DegF *L* (06/17/22 10:08 AM) Blood pressure sites Arm, right (06/17/22 10:08 AM) Temperature Route Temporal (06/17/22 10:08 AM) Dry Weight 88.2 kg (06/17/22 10:08 AM) Weight Obtained Via Standing scale (06/17/22 10:08 AM) Dry Weight Obtained Via Standing scale (06/17/22 10:08 AM) Social History Social History Type Response Smoking [...] Team Personnel Name: Aurora Fairbanks RN Position: [facility] SN RN Member Role: Primary Care Nurse Name: Micaela Bridges RN Position: [facility] PCO RN Member Role: Primary Care Nurse Name: Mi Pelaez RN Position: [facility] RN Member Role: Primary Care Nurse Name: Angela Nogueira RN Position: [facility] RN Member Role: Primary Care Nurse Name: Cruz Hilliard RN Position: [facility] PCO RN Member Role: Primary Care Nurse Name: Mya Hays RN Position: [facility] RN Member Role: Primary Care Nurse Name: Jean Lucero MD Position: [facility] Cardiology MD Member Role: Lifetime Consulting Physician Address: Address: [address] [place] [address] [place] [address]- Name: Bharathi Branch Position: Reference Physician Member Role: PCP Address: Address: [address] [place] [address]- Name: Chante Nielson RN Position: [facility] Hospital Mortgage Loan Assistant Member Role: Primary Care Nurse Care Team Related Persons Name: HEMALATHA SALAZAR Address: home [address] [place] [address] Name: RONALD SALAZAR Address: home [address] [place] [address]
--- OUTSIDE RECORDS SUMMARY | 2024-02-09 14:52 | XMS_ITS | Continuity of Care Document ---
Author Organization [facility] ter Address [address] [place] [address]- Care Team Providers Care Petroleum Products District Supervisor Name Role Phone Vinod DOLAN, Jaya Richards Primary Care Physician [phone] [place] [facility] [id number] Date(s): 12/19/19 - 12/19/[address] [address]- [facility] Discharge Disposition: A-D/C Home Attending Physician: Julius Wiggins MD Admitting Physician: Julius Wiggins MD Referring Physician: Julius Wiggins MD Allergies, [...] 3 Refills, Maintenance, Tablet, Route to PharmacyElectronically, [id number], [facility]/pharmacy #[id number] Start Date: 05/26/16 Status: Ordered fenofibrate 145 mg oral tablet 1 tablet = 145 mg, By Mouth, Daily, # 90 tablet, 3 Refills, Maintenance, Tablet Start Date: 09/09/12 Stop Date: 09/04/13 Status: Ordered glipiZIDE 5 mg oral tablet, extended release See Instructions, 5 mg po in AM and 10mg po at 5pm, 0 Refills, Maintenance, 06/07/18 6:30:53 EDT, ER Tablet Start Date: 06/07/18 Status: Ordered Insulin Glargine See Instructions, 26 [...] mellitus(Confirmed) Active Gastrointestinal Hemorrhage(Confirmed) Active Neuropathy(Confirmed) Active Vital Signs Most recent to oldest [Reference Range]: 1 2 3 Height 174 cm (12/19/19 6:48 AM) Weight 100.7 kg (12/19/19 6:48 AM) Oxygen Saturation [94-100 %] 96 % (12/19/19 9:45 AM) 95 % (12/19/19 9:30 AM) 100 % (12/19/19 9:15 AM) Pulse Rate [55-90 bpm] 80 bpm (12/19/19 6:48 AM) Body Mass Index [18.5-24.99] 33.26 *>HHI* (12/19/19 6:48 AM) Blood Pressure [90-138/55-84 mm Hg] 147/79mm Hg *H* (12/19/19 9:15 AM) 152/83mm Hg *H* (12/19/19 9:00 AM) 136/86mm Hg (12/19/19 8:45 AM) Respiratory Rate [16-30 br/min] 18 br/min (12/19/19 9:22 AM) 15 br/min *L* (12/19/19 9:15 AM) 12 br/min *L* (12/19/19 9:00 AM) Temperature [96.8-100.4 DegF] 97 DegF (12/19/19 9:30 AM) 97.4 DegF (12/19/19 8:30 AM) 98.6 DegF (12/19/19 6:48 AM) Liters per Minute 10 L/min (12/19/19 9:15 AM) 10 L/min (12/19/19 9:00 AM) 10 L/min (12/19/19 8:45 AM) Mode of Delivery (Oxygen) Room air (12/19/19 9:45 AM) Room air (12/19/19 9:30 AM) Humidification (12/19/19 9:15 AM) Blood pressure sites Arm, right (12/19/19 8:30 AM) Arm, right (12/19/19 6:48 AM) Temperature Route Temporal (12/19/19 9:30 AM) Temporal (12/19/19 8:30 AM) Temporal (12/19/19 6:48 AM) Dry Weight 100.7 kg (12/19/19 6:48 AM) Weight Obtained Via Standing scale (12/19/19 6:48 AM) Dry Weight Obtained Via Standing scale (12/19/19 6:48 AM) Social History Social History Type Response Smoking Status Former smoker; Other : Quit 1993 without relapse; entered on: 10/22/16 Sex Medical Equipment Implanted Date:06/07/18Target Site:Eye Right Description Quantity MRI Company Model GRAFT AMNIOGRAFT 2X1.5 SIZE B - BIOT (AG-2014) 1 [employer] Unknown KYLE:No Information Assigning Authority: FDA
--- OUTSIDE RECORDS SUMMARY | 2024-02-09 14:52 | XMS_ITS | Continuity of Care Document ---
Author Organization [facility] Andrea Ashish lt Address [address] [place] [address]- Care Team Providers Care Senior Occupational Therapist Name Role Phone Uri TAVERAS, Mercy Barrett Primary Care Physician Encounter [facility] Date(s): 04/19/23 - 04/26/23 [facility] [address] [place] [address]- Attending Physician: Mercy Grewal NP Referring Physician: Ethan Bach MD Allergies, Adverse Reactions, Alerts Substance Reaction Severity Status tetracyclines rash Active Bactrim DS rash Active Contrast Dye angioedema, dyspnea Active Immunizations Given and Recorded Vaccine Date Status Refusal Reason pneumococcal 20-valent conjugate vaccine 02/09/23 Given [id number] 12y+ bivalent booster vax 07/10/22 Recorded influenza [...] Replace Required Details, Route to Pharmacy Electronically, [facility] #[id number], 177, cm, 04/19/23 14:... Start Date: 04/19/23 Status: Ordered atorvastatin 80 mg oral tablet 1 tablet = 80 mg, By Mouth, Daily, # 90 tablet, 3 Refills, Maintenance, 04/19/23 15:01:00 EDT, Tablet, [facility] #[id number], Partial fill upon patient request if the prescription is for a schedule II opioid drug., 177, cm, 04/19/23 14:26:00 EDT... Start Date: 04/19/23 Status: Ordered fenofibrate 145 mg oral tablet 1 tablet = 145 mg, By Mouth, Daily, # 90 tablet, 3 Refills, Maintenance, 04/19/23 15:02:00 EDT, Tablet, [facility] #[id number], 177, cm, 04/19/23 14:26:00 EDT, Height, 89.6, [...] 11 Refills, Maintenance, 04/19/23 15:03:00 EDT, Solution, [facility] #[id number], Partial fill upon patient request if the prescription is for a schedule II opioid drug., 177, cm, 07... Start Date: 04/19/23 Status: Ordered lansoprazole 30 mg oral enteric coated capsule See Instructions, TAKE 1 CAPSULE BY MOUTH EVERY DAY, # 90 capsule, 3 Refills, Maintenance, 04/19/2315:04:00 EDT, [facility] #[id number], 177, cm, 04/19/23 14:26:00 EDT, Height, 89.6, kg, 02/23/23 9:24:00 EDT, Dry Weight Start Date: 04/19/23 Status: Ordered LORazepam 0.5 mg oral tablet 1 tablet = 0.5 mg, By Mouth, 2 times a day, # 60 tablet, 2 Refills, Acute 05/20/23 21:00:00 EDT, 04/19/23 14:54:00 EDT, Tablet, [facility] #[id number], Partial fill upon patient request if the prescription is for a schedule II opioid drug., 177,... Start Date: 04/19/23 Stop Date: 05/20/23 Status: Ordered Nitrostat 0.4 mg sublingual tablet 1 tablet = 0.4 mg, Sublingual, Every 5 minutes, PRN for chest pain, Please divide 25 tablets X 4 bottles, # 100 tablet, 2 Refills, Maintenance, 04/19/23 15:05:00 EDT, Tablet, [facility] #[id number], 177, cm, 04/19/23 14:26:00 EDT, Height, 89.6, k... Start Date: 04/19/23 Status: Ordered Pen [place], 32 G x 4 mm BD Ultra [...] mL, 11 Refills, Maintenance, 04/19/23 15:04:00 EDT, [facility] #[id number], Partial fill upon patient request if the [...] History of diverticulitis Confirmed Active History of KS (myocardial infarction) Confirmed Active Hypercholesteremia Confirmed Active Hypertension Confirmed Active Throat cancer Confirmed Active Neuropathy Confirmed Active Diabetic neuritis Confirmed Active PVD (peripheral vascular disease) Confirmed Active Sick sinus syndrome Confirmed Active Presence of stent in coronary artery in patient with coronary artery disease Confirmed Active Type 2 diabetes mellitus Confirmed Active Vital Signs Most recent to oldest [Reference Range]: 1 2 Height 177 cm (04/19/23 2:26 PM) 177 cm (04/19/23 2:05 PM) Weight 91.6 kg (04/19/23 2:05 PM) Oxygen Saturation [94-100 %] 98 % (04/19/23 2:05 PM) Pulse Rate [55-90 bpm] 70 bpm (04/19/23 2:05 PM) Body Mass Index [18.5-24.99 kg/m2] 29.24 kg/m2 *H* (04/19/23 2:05 PM) Blood Pressure [90-138/55-84 mm Hg] 151/ 73mm Hg *H* (04/19/23 2:26 PM) 148/71mm Hg *H* (04/19/23 2:05 PM) Blood pressure sites Arm, right (04/19/23 2:05 PM) Weight Obtained Via Standing scale (04/19/23 2:05 PM) Social History Social History Type Response [...] VERIFY Event Display: Patient Education/Instruction Authored Date: [id number] [facility] *DEBBIE Danielson Clinical Summary Name CHERELLE SALAZAR Age 82 Years 1940 PCP Uri TAVERAS, Mercy Barrett PCP Visit Date 04/19/2023 13:51:00 Additional Instructions: Scheduled Appointments?? Future Appointments ?No Future Appointments Scheduled Follow-Up Instructions ?? With: Address: When: Mercy Grewal NP Within 3 months Comments: 40 minutes With: Address: When: Mercy Grewal NP 04/19/2023 12:00 AM Diagnosis Essential (primary) hypertension Medications: Please continue your medications until treatment is completed or stopped by your provider. Discuss any questions related to medications with your provider. Medications to Continue with No Changes [facility] #[id number], [address], [place] [id number], [phone] Atenolol (atenolol 50 mg oral tablet) TAKE 1 TABLET BY MOUTH EVERY DAY. Refills: 3. Next Dose: These medications were not printed or sent to your pharmacy Aspirin (aspirin 81 mg oral tablet) 1 tab(s) Oral Daily. Next Dose: Atorvastatin (atorvastatin 80 mg oral tablet) 1 tab(s) Oral Daily. Refills: 3. Next Dose: Cyanocobalamin (Vitamin B12 1000 mcg oral tablet) 1 tab(s) Oral Daily. Next Dose: Durable Medical Equipment (FreeStyle Vivek 2 Sensors) Next Dose: Durable Medical Equipment (Freestyle Vivek Monitor) Next Dose: Durable Medical Equipment (Pen [place], 32 G x 4 mm BD Ultra Fine III) use as directed for Type 1 Diabetes Mellitus. Refills: 5. Next Dose: Fenofibrate (fenofibrate 145 mg oral tablet) 1 tab(s) Oral Daily for 90 Days. Refills: 3. Next Dose: Furosemide (furosemide 20 mg oral tablet) Take 1 tablet by mouth every day, and 2 tablets by mouth every other day.. Refills: 3. Next Dose: Insulin Aspart (NovoLOG FlexPen 100 units/mL subcutaneous solution) See Instructions Subcutaneous Injection for 30 Days. Use as directed for Diabetes mellitus type 1. (Max Dose = 50 units/day). Next Dose: Insulin Detemir (insulin detemir 100 units/mL subcutaneous solution) 30 unit(s) Subcutaneous Injection Daily at Bedtime. Refills: 11. Next Dose: Lansoprazole (lansoprazole 30 mg oral enteric coated capsule) TAKE 1 CAPSULE BY MOUTH EVERY DAY. Refills: 3. Next Dose: Lorazepam (LORazepam 0.5 mg oral tablet) 1 tab(s) Oral twice a day. Refills: 1. Next Dose: Miscellaneous Rx (18 - 20mmHg [...] orders Vital Signs Height 177 cm Weight 91.6 kg BMI 29.24 kg/m2 Blood Pressure 151 mm Hg/73 mm Hg Temperature Pulse Rate 70 bpm Respiratory Rate 02 Sat Mode of Delivery 98 %/ You can now view a summary of your hospital visit from the comfort of your home through a free online portal called [employer]. [employer] is a website that allows you to securely view your medical information including discharge summary, medications and follow-up visits. ??You can alsosend a secure electronic message to your doctor???s office to request appointments, renew medications or just ask a question. You can enroll at [email or web address] or register during your next office [...] primary care provider, you may find a [facility] provider by calling [facility] [email or web address] Link at [phone]. For information about the plan of care [...] Team Personnel Name: Aurora Fairbanks RN Position: [facility] RN Member Role: Primary Care Nurse Name: Micaela Bridges RN Position: [facility] [place]OWER Nurse Member Role: Primary Care Nurse Name: Mi Pelaez RN Position: [facility] RN Member Role: Primary Care Nurse Name: Angela Nogueira RN Position: [facility] RN Member Role: Primary Care Nurse Name: Mercy Grewal NP Position: [facility] PCO Associate Professional Member Role: PCP Address: Address: [address] [place] [address]- [place] Name: Cruz Hilliard RN Position: [facility] AMB Nurse Member Role: Primary Care Nurse Name: Jean Lucero MD Position: [facility] Cardiology MD Member Role: Lifetime Consulting Physician Address: Address: [address] [place] [address]- [place] Name: Chante Nielson RN Position: [facility] Armored Car Driver Member Role: Primary Care Nurse Care Team Related Persons Name: HEMALATHA SALAZAR Address: home [address] [place] [address] Name: RONALD SALAZAR Address: home [address] [place] [address]
--- OUTSIDE RECORDS SUMMARY | 2024-02-09 14:52 | XMS_ITS | Continuity of Care Document ---
Author Organization [facility] ter Address [address] [place] [address]- Care Team Providers Care Investigative Shopper Name Role Phone Uri TAVERAS, Mercy Barrett Primary Care Physician [facility] Date[facility]): [facility]23 - 02/23/[address] [address] Discharge Disposition: A-D/C Home Attending Physician: Julius Wiggins MD Admitting Physician: Julius Wiggins MD Referring Physician: Julius Wiggins MD Allergies, Adverse Reactions, Alerts Substance Reaction Severity Status tetracyclines rash Active Bactrim DS rash Active Contrast Dye angioedema, dyspnea Active Immunizations Given and Recorded Vaccine Date Status Refusal Reason pneumococcal 20-valent conjugate vaccine 02/09/23 Given [id number] 12y+ bivalent booster vax 07/10/22 Recorded influenza [...] Replace Required Details, Route to Pharmacy Electronically, [facility] STORE [id number], 175, cm, 02/09/23 11:14:00 EDT, Height, 89.2, kg,... Start Date: 02/16/23 Status: Ordered atorvastatin 80 mg oral tablet 1 tablet = 80 mg, By Mouth, Daily, # 90 tablet, 3 Refills, Maintenance, 02/16/23 16:53:00 EDT, Tablet, [facility]/pharmacy #[id number], Partial fill upon patient request if the prescription is for a schedule II opioid drug., 175, cm, 02/09/23 11:14:00 EDT, Height,... Start Date: 02/16/23 Status: Ordered fenofibrate 145 mg oral tablet 1 tablet = 145 mg, By Mouth, Daily, # 90 tablet, 3 Refills, Maintenance, 02/16/23 16:53:00 EDT, Tablet, [facility]/pharmacy #[id number], 175, cm, 02/09/23 11:14:00 EDT, [...] Instructions Replace RequiredDetails, Route to Pharmacy Electronically, [facility]/phar... Start Date: 02/16/23 Status: Ordered insulin detemir 100 units/mL subcutaneous solution = 30 units, Subcutaneous Injection, Daily at bedtime, # 7.8 mL, 11 Refills, Maintenance, 02/16/23 17:03:00 EDT, Solution, [facility]/pharmacy #[id number], Partial fill upon patient request if the prescription is for a schedule II opioid drug., 175, cm, 02/09/23 11... Start Date: 02/16/23 Status: Ordered lansoprazole 30 mg oral enteric coated capsule See Instructions, TAKE 1 CAPSULE BY MOUTH EVERY DAY, # 90 capsule, 3 Refills, Maintenance, 02/16/2310:39:00 EDT, [id number], 175, cm, 02/09/23 11:14:00 EDT, Height, 89.2, kg, 12/09/22 10:50:00 EST, Dry Weight Start Date: 02/16/23 Status: Ordered LORazepam 0.5 mg oral tablet 0.5 tablet = 0.25 mg, By Mouth, 2 times a day, # 60 tablet, 2 Refills, Acute 05/12/23 21:00:00 EDT,02/09/23 12:04:00 EDT, Tablet, [facility]/pharmacy #[id number], Partial fill upon patient request [...] 02/09/23 Stop Date: 03/11/23 Status: Ordered Pen Franklin, 32 G x 4 mm BD Ultra [...] mL, 11 Refills, Maintenance, 02/19/23 15:45:00 EDT, [facility] #[id number], Partial fill upon patient request if the [...] oldest [Reference Range]: 1 2 3 Height 177 cm (02/23/23 9:24 AM) 177 cm (02/19/23 11:16 AM) Weight 89.6 kg (02/23/23 9:24 AM) 90 kg (02/19/23 11:16 AM) Oxygen Saturation [94-100 %] 99 % (02/23/23 11:30 AM) 97 % (02/23/23 11:00 AM) 100 % (02/23/23 10:45 AM) Pulse Rate [55-90 bpm] 70 bpm (02/23/23 9:24 AM) Body Mass Index [18.5-24.99 kg/m2] 28.6 kg/m2 *H* (02/23/23 9:24 AM) 28.73 kg/m2 *H* (02/19/23 11:16 AM) Blood Pressure [90-138/55-84 mm Hg] 158/71mm Hg *H* (02/23/23 11:00 AM) 156/87mm Hg *H* (02/23/23 10:45 AM) 150/83mm Hg *H* (02/23/23 10:30 AM) Respiratory Rate [16-30 br/min] 16 br/min (02/23/23 11:00 AM) 12 br/min *L* (02/23/23 10:45 AM) 13 br/min *L* (02/23/23 10:30 AM) Temperature [96.8-100.4 DegF] 97.1 DegF (02/23/23 10:00 AM) 97.3 DegF (02/23/23 9:24 AM) Liters per Minute 2 L/min (02/23/23 10:45 AM) 4 L/min (02/23/23 10:30 AM) 6 L/min (02/23/23 10:00 AM) Mode of Delivery (Oxygen) Room air (02/23/23 11:30 AM) Room air (02/23/23 11:00 AM) Simple face mask (02/23/23 10:00 AM) Blood pressure sites Arm, right (02/23/23 11:00 AM) Arm, right (02/23/23 10:45 AM) Arm, right (02/23/23 10:30 AM) Temperature Route Temporal (02/23/23 10:00 AM) Femoral (02/23/23 9:24 AM) Dry Weight 89.6 kg (02/23/23 9:24 AM) 90 kg (02/19/23 11:16 AM) Weight Obtained Via Standing scale (02/23/23 9:24 AM) Patient/family stated (02/19/23 11:16 AM) Dry Weight Obtained Via Patient/family s tated (02/19/23 11:16 AM) Social History Social History Type Response [...] 02/24/20 Unknown Unknown Active Unknown Note * Morris Monaco RN: PERFORM Event Display: Discharge/Transfer Note Hospital Authored Date: [id number] Nursing Discharge Note Entered On: 02/23/2023 11:32 EDT Performed On: 02/23/2023 11:32 EDT by Morris Monaco RN Nursing Discharge Note 2 Discharge Time : 02/23/2023 11:36 EDT Morris Monaco RN - 02/23/2023 11:36 EDT Discharge Level of Care at Discharge : Home/Retirement/Foster Care Patient Left Unit Via : Wheelchair Patient Accompanied Off Unit with : Significant other DC Instructions Provided & Signed by Pt : Yes Patient Understands D/C Instructions : Yes Verbalized Understanding of D/C Plan By : Patient Patient Instructions Discharge Signed : Yes Did Pt have Specialty Bed or Wound Vac : No Morris Monaco RN - 02/23/2023 11:32 EDT * Morris Monaco RN: PERFORM Event Display: Patient Education/Instruction Authored Date: Surgery Adult Discharge Instructions [address] [address] Name: CHERELLE SALAZAR : 1940?? Visit: 02/23/2023 08:28?? Current Date: 02/23/2023 10:25 ?? Account: [id number]?? Surgery Discharge Instructions We would like to thank you for allowing us to assist you with your healthcare needs. The following includes patient education materials and information regarding your injury/illness. Our entire staffstrives to provide an excellent experience for our patients and their families. PLEASE ENSURE YOU FOLLOW-UP PER THE INSTRUCTIONS BELOW! ?? YOUR OPINION IS IMPORTANT TO US! Please complete the survey you may receive by mail or email. Your feedback will be used to make improvements to the healthcare experiences of our patients and their families. Surveys are administered by [employer] ?? If further treatment with your primary care physician or another doctor is recommended, it is important for you to keep the appointment. Call your primary care physician or return to the Emergency Department immediately if your condition worsens, fails to improve, or new symptoms develop. If you need to find a doctor, you can call [facility] for a referral at [phone] or toll free at [phone]) or log in to [email or web address].. ?? You can view and manage your care through the patient portal or by using a health care steffanie of your choosing. [facility] is a website that allows you to securely view your medical information including your hospital discharge summary, office visit summaries, medications and follow-up visits. You can also request appointments, renew medications, and request access to your medical information using a health care steffanie of your choosing, or just ask a question. You are entitled to know the individuals who participated in your treatment. This information is available within your medical record and will be provided upon your request. You can enroll at [email or web address] or register d uring your next office visit. You have been discharged from [facility], Patient Care Unit: [facility]??. If you have any questions regarding these instructions after you leave, please call us and we will be happy to assist you. [facility] Your Care Team Attending Physician Julius Wiggins MD?? Discharging Providers Julius Wiggins MD Reason for Admission NEOPLASM ARYEPIGLOTTIC FOLD LARYNGOSCOPY DS CS Primary Care Provider Mercy Grewal NP? Advance Directive Health Care Proxy on File Yes - Health Care Proxy What to do next Instructions From Your Doctor ?? Orders?? Unit Discharge Criteria Met, ??call Wednesday for pathologyresume preop meds as prescribed, ??02/23/23 10:04:00 EDT?? Instructions from your Care Team Call??Dr Wiggins on Wednesday for pathology results. Scheduled Follow-Up Appointments Wednesday 2:10 PM EDT ?? With: Mercy Grewal NP Where: [address] [address]- Status: Pending You Need to Schedule the Following Appointments Follow Up with??Julius Wiggins Where: [address] [place] [address] [address] [facility] [address]- [facility] (1) Follow Up with??Mercy rGewal When:??In 0 days Discharge Medications MUSTAPHACHERELLE SMITH :1940 Visit Date:02/23/2023 Medications: Please continue your medications until treatment is completed or stopped by your provider. You may resume your daily prescription medications. Discuss any questions related to medications with your provider. What How Much When Why Instructions Next Dose Unchanged Aspirin (aspirin 81 mg oral tablet) 1 tab(s) Oral Daily Unchanged Atenolol (atenolol 50 mg oral tablet) See instructions TAKE 1 TABLET BY MOUTH EVERY DAY ?? Unchanged Atorvastatin (atorvastatin 80 mg oral tablet) 1 tab(s) Oral Daily Hypercholesteremia Unchanged Cyanocobalamin (Vitamin B12 1000 mcg oral tablet) 1 tab(s) Oral Daily Unchanged Durable Medical Equipment (FreeStyle Vivek 2 Sensors) Unchanged Durable Medical Equipment (Freestyle Vivek Monitor) Unchanged Durable Medical Equipment (Pen Franklin, 32 G x 4 mm BD Ultra Fine III) See instructions Type 2 diabetes mellitus Duration: 90 Days use as directed for Type 1 Diabetes Mellitus ?? Unchanged Fenofibrate (fenofibrate 145 mg oral tablet) 1 tab(s) Oral Daily Hypercholesteremia Duration: 90 Days Unchanged Furosemide (furosemide 20 mg oral tablet) See instructions Hypertension Take 1 tablet by mouth every day, and 2 tablets by mouth every other day. ?? Unchanged Insulin Aspart (NovoLOG FlexPen 100 units/ mL subcutaneous solution) See Instructions Subcutaneous Injection Duration: 30 Days Use as directed for Diabetes mellitus type 1. (Max Dose = 50 units/ day) ?? Unchanged Insulin Detemir (insulin detemir 100 units/ mL subcutaneous solution) 30 unit(s) Subcutaneous Injection Daily at Bedtime Type 2 diabetes mellitus Unchanged Lansoprazole (lansoprazole 30 mg oral enteric coated capsule) See instructions TAKE 1 CAPSULE BY MOUTH EVERY DAY ?? Unchanged Lorazepam (LORazepam 0.5 mg oral tablet) 0.5 tab(s) Oral Twice a day Anxiety Unchanged Miscellaneous Rx (18 - 20mmHg below knee compression stockings) See instructions dx: lower extremity edema ?? Unchanged Nitroglycerin (Nitrostat 0.4 mg sublingual tablet) 1 tab(s) Sublingual Every 5 minutes as needed for for chest pain Please divide 25 tablets X 4 bottles ?? Unchanged semaglutide (semaglutide 2 mg/ 1.5 mL (0.25 mg or 0.5 mg dose) subcutaneous solution) 0.5 Milligram Subcutaneous Infusion Every 7 days Type 2 diabetes mellitus Allergies (NKA means No Known Allergies) Bactrim DS??(rash) Contrast Dye??(angioedema, dyspnea) tetracyclines??(rash) Education Materials Below is the list of Educational Leaflet Providered with your Discharge Instructions. Surgery Medical Daystay Surgical Overnight Discharge Instructions?? Valuables and Belongings I fully understand and agree that [facility] accepts no responsibility for all my personal property including clothing, toilet articles, radios, jewelry, dentures, hearing aids, rings, money, or any other property that is in my possession or is brought to me after admission. I understand certain valuables may be placed in a hospital safe for a short period of time. I understand that the hospital is not liable for loss or damage due to accident, fire, or other natural occurrence while said property is in the safe. I accept full responsibility for any personal property that I keep with me, and will not hold the hospital responsible in case of loss or disappearance. I acknowledge that i have been encouraged to send valuables and belongings home. ?? Date for Pt to Sign Valuables/Belongings: 02/23/23 09:24:00 ?? Valuables & Belongings ?? Clothes Electronic devices Jewelry Monetary Items Personal devices Miscellaneous Medications (Valuables) Valuables at Bedside Jacket, Pants, Shirt, Shoes, Undergarments ? Glasses ? Valuables Sent Home ? Valuables Sent to Security ? Other Discharge Information ? Pulmonary Rehab Status?? Pulmonary Rehab Discharge Status?? Respiratory Rate:??13 br/min??Low ? Common Emergency Awareness Tips IS IT A STROKE? Act FAST and Check for these signs: FACE Does the face look uneven? ARM Does one arm drift down? SPEECH Does their speech sound strange? TIME Call at any sign of stroke ?? Heart Attack Signs Chest discomfort: Most heart attacks involve discomfort in the center of the chest and lasts more than a few minutes, or goes away and comes back. It can feel like uncomfortable pressure, squeezing, fullness or pain. Discomfort in upper body: Symptoms can include pain or discomfort in one or both arms, back, neck, jaw or stomach. Shortness of breath: With or without discomfort. Other signs: Breaking out in a cold sweat, nausea, or lightheaded. Remember, MINUTES DO MATTER. If you experience any of these heart attack warning signs, call to get immediate medical attention! ?? Smoking can increase your chances of developing chronic health problems and can cause harmful effects to other family members in your house. If you smoke, you are strongly encouraged to quit. Please call [facility] at [phone] or [phone] or log in to [email or web address] for referrals to smoking cessation programs. ?? The National Suicide Prevention Hotline is available 26/04 if you or someone you know needs to find a reason to keep living. By calling 2-171-617-tubz (9267) you'll be connected to a skilled, trained counselor at a crisis center in your area. SURGERY DISCHARGE INSTRUCTIONS SIGNATURE PAGE CHERELLE SALAZAR Location:[facility] Registration Date and Time:02/23/2023 08:28 EDT Primary Care Physician: Mercy Grewal NP, Attending Physician: Rosalie DOLAN, Julius Sanchez, I CHERELLE SALAZAR, have received the above patient education materials/instructions and have verbalized understanding. If ambulance or transport services are being used I further acknowledge being given a choice of service. ?? If you need to contact me, please call me at this number: . Patient/Roadability Machine Operator Name:__MARTIN CHERELLE __ Patient/Roadability Machine Operator Signature: Relationship to Patient:__Self__ Witness Name/Signature:Cate Monaco RN__ Date:__02/23/23__ * Morris Monaco RN: PERFORM, SIGN, VERIFY Event Display: Patient Education Handout Authored Date: [id number] * Morris Monaco RN: PERFORM Event Display: Patient Education Leaflets Authored Date: [id number] Surgery Medical Daystay Surgical Overnight Discharge Instructions ?? 295 Medical Daystay/Surgical Overnight Discharge Instructions ? Since your coordination and judgment may be altered by medication and/or anesthesia, a responsible adult must drive you home from the hospital. ? If you have received medication for pain or sedation while under our care, you should not drive, operate machinery, drink alcohol, or sign any legal documents for 24 hours.?? You should have someone with you at home tonight. ? Remain at home the day of discharge.?? You may be up and about unless otherwise instructed by your physician. ? You may resume your daily prescription medication schedule.?? Any depressant medication should be avoided for 24 hours unless otherwise instructed by your surgeon or anesthesiologist. ? Call your physician for a follow-up appointment.? If you experience unusual or severe pain not relied by your pain medication, excessive bleedingor drainage, persistent nausea and vomiting, excessive swelling or redness, foul odor from incisionsite or fever over 100.6F, you need to call your physician. ? A follow-up phone call by a nurse will be made the day after your procedure.?? If you have stayed with us over night, you will not be receiving a follow-up phone call. ? Nausea and vomiting are a common side effect of prescription pain medication.?? We recommend that pills are not taken on an empty stomach.?? While taking any prescription pain medication you should not drive or drink alcohol. ? Patient Care team information Care Team Personnel Name: Aurora Fairbanks RN Position: [facility] RN Member Role: Primary Care Nurse Name: Micaela Bridges RN Position: [facility]O RN Member Role: Primary Care Nurse Name: Mi Pelaez RN Position: [facility] RN Member Role: Primary Care Nurse Name: Angela Nogueira RN Position: [facility] RN Member Role: Primary Care Nurse Name: Mercy Grewal NP Position: [facility] PCO Associate Professional Member Role: PCP Address: Address: [address] [place] [address]- [place] Name: Cruz Hilliard RN Position: [facility] RN Member Role: Primary Care Nurse Name: Jean Lucero MD Position: [facility] Cardiology MD Member Role: Lifetime Consulting Physician Address: Address: [address] [place] [address]- [place] Name: Chante Nielson RN Position: [facility] Teacher Assistant Member Role: Primary Care Nurse Care Team Related Persons Name: HEMALATHA SALAZAR Address: home [address] [place] [address] Name: RONALD SALAZAR Address: home [address] [place] [address]
--- OUTSIDE RECORDS SUMMARY | 2024-02-09 14:52 | XMS_ITS | Continuity of Care Document ---
Author Organization [facility] Address [address] [place] [address]- Care Team Providers Care Red Lead Burner Name Role Phone Uri TAVERAS, Mercy Barrett Primary Care Physician [phone] [facility]counter [facility] Date[facility]s): 02[facility]18[facility]23 - 03/20/23 [facility] [address], [place] [address] Attending Physician: Kofi Tolliver Admitting Physician: Kofi Tolliver Referring Physician: AdmtrKofi Allergies, Adverse Reactions, Alerts Substance Reaction Severity Status tetracyclines rash Active Bactrim DS rash Active Contrast Dye angioedema, dyspnea Active Immunizations Given and Recorded Vaccine Date Status Refusal Reason pneumococcal 20-valent conjugate vaccine 02/09/23 Given [id number] 12y+ bivalent booster vax 07/10/22 Recorded influenza [...] Replace Required Details, Route to Pharmacy Electronically, [id number], 175, cm, 02/09/23 11:14:00 EDT, Height, 89.2, kg,... Start Date: 02/16/23 Status: Ordered atorvastatin 80 mg oral tablet 1 tablet = 80 mg, By Mouth, Daily, # 90 tablet, 3 Refills, Maintenance, 02/16/23 16:53:00 EDT, Tablet, [facility]/pharmacy #[id number], Partial fill upon patient request if the prescription is for a schedule II opioid drug., 175, cm, 02/09/23 11:14:00 EDT, Height,... Start Date: 02/16/23 Status: Ordered fenofibrate 145 mg oral tablet 1 tablet = 145 mg, By Mouth, Daily, # 90 tablet, 3 Refills, Maintenance, 02/16/23 16:53:00 EDT, [facility]t, [id number], 175, cm, 02/09/23 11:14:00 EDT, Height, [...] Instructions Replace RequiredDetails, [facility] Start Date: 02/16/23 Status: Ordered insulin detemir [...] 3 Refills, Maintenance, 02/16/2310:39:00 EDT, [id number], 175, cm, 02/09/23 11:14:00 EDT, Height, 89.2, [...] 02/09/23 Stop Date: 03/11/23 Status: Ordered Pen Girard, 32 G x 4 mm BD Ultra [...] mL, 11 Refills, Maintenance, 02/19/23 15:45:00 EDT, [id number], Partial fill upon patient request if the [...] History of diverticulitis Confirmed Active History of ID (myocardial infarction) Confirmed Active Hypercholesteremia Confirmed Active [...] Team Personnel Name: Aurora Fairbanks RN Position: [facility] RN Member Role: Primary Care Nurse Name: Micaela Bridges RN Position: [facility] Nurse Member Role: Primary Care Nurse Name: Mi Pelaez RN Position: [facility] RN Member Role: Primary Care Nurse Name: Angela Nogueira RN Position: [facility] RN Member Role: Primary Care Nurse Name: Mercy Grewal NP Position: [facility] PC[facility] Associate Professional Member Role: PCP Address: Address: [address] [place] [address]- [place] Name: Cruz Hilliard RN Position: [facility] AMB Nurse Member Role: Primary Care Nurse Name: Jean Lucero MD Position: [facility] Cardiology MD Member Role: Lifetime Consulting Physician Address: Address: [address] [place] [address] [place] [address]- [place] Name: Chante Nielson RN Position: [facility] Garment Liner Member Role: Primary Care Nurse Care Team Related Persons Name: HEMALATHA SALAZAR Address: home [address] [place] [address] Name: RONALD SALAZAR Address: home [address] [place] [address]
--- OUTSIDE RECORDS SUMMARY | 2024-02-09 14:52 | XMS_ITS | Continuity of Care Document ---
Author Organization [facility] Andrea Ashish lt Address [address] [place] [address]- Care Team Providers Care Supervisor Framing Mill Name Role Phone Uri TAVERAS, Mercy Barrett Primary Care Physician [place] [facility] [place]23 [place] 03/18/23 [facility] Adult [address] [place] [address]- Allergies, Adverse Reactions, Alerts Substance Reaction Severity Status tetracyclines rash Active Bactrim DS rash Active Contrast Dye angioedema, dyspnea Active Immunizations Given and Recorded Vaccine Date Status Refusal Reason pneumococcal 20-valent conjugate vaccine 02/09/23 Given [id number] 12y+ bivalent booster vax 07/10/22 Recorded influenza [...] Replace Required Details, Route to Pharmacy Electronically, [id number], 175, cm, 02/09/23 11:14:00 EDT, Height, 89.2, kg,... Start Date: 02/16/23 Status: Ordered atorvastatin 80 mg oral tablet 1 tablet = 80 mg, By Mouth, Daily, # 90 tablet, 3 Refills, Maintenance, 02/16/23 16:53:00 EDT, Tablet, [facility]/pharmacy #[id number], Partial fill upon patient request if the prescription is for a schedule II opioid drug., 175, cm, 02/09/23 11:14:00 EDT, Height,... Start Date: 02/16/23 Status: Ordered fenofibrate 145 mg oral tablet 1 tablet = 145 mg, By Mouth, Daily, # 90 tablet, 3 Refills, Maintenance, 02/16/23 16:53:00 EDT, Tablet, [facility]/pharmacy #[id number], 175, cm, 02/09/23 11:14:00 EDT, [...] 3 Refills, Maintenance, 02/16/2310:39:00 EDT, [facility], 175, cm, 02/09/23 11:14:00 EDT, Height, 89.2, [...] 02/09/23 Stop Date: 03/11/23 Status: Ordered Pen [place], 32 G x 4 mm BD Ultra [...] mL, 11 Refills, Maintenance, 02/19/23 15:45:00 EDT, [facility][id number], Partial fill upon patient request if the [...] History of diverticulitis Confirmed Active History of [place] (myocardial infarction) Confirmed Active Hypercholesteremia Confirmed Active [...] Team Personnel Name: Aurora Fairbanks RN Position: [facility] SN RN Member Role: Primary Care Nurse Name: Micaela Bridges RN Position: [facility] AMB Nurse Member Role: Primary Care Nurse Name: Mi Pelaez RN Position: [facility] RN Member Role: Primary Care Nurse Name: Angela Nogueira RN Position: [facility] RN Member Role: Primary Care Nurse Name: Mercy Grewal NP Position: [facility] PCO Associate Professional Member Role: PCP Address: Address: [address] [place] [address]- [place] Name: Cruz Hilliard RN Position: [facility] AMB Nurse Member Role: Primary Care Nurse Name: Jean Lucero MD Position: [facility] Cardiology MD Member Role: Lifetime Consulting Physician Address: Address: [address] [place] [address]- [place] Name: Chante Nielson RN Position: [facility] Bicycle Ii Assembler Member Role: Primary Care Nurse Care Team Related Persons Name: HEMALATHA SALAZAR Address: home [address] [place] [address] Name: RONALD SALAZAR Address: home [address] [place] [address]
--- OUTSIDE RECORDS SUMMARY | 2024-02-09 14:52 | XMS_ITS | Continuity of Care Document ---
Author Organization [facility] Address [address] [place] [address]- Care Team Providers Care Handstitching Machine Armhole Feller Name Role Phone Bharathi Branch Primary Care Physician [place] [facility] [place] - 06/25/22 [facility] [address] [place] [address]- Allergies, Adverse Reactions, Alerts Substance Reaction Severity [...] 3 Refills, Maintenance, Tablet, Route to PharmacyElectronically, [id number], [facility]/pharmacy #[id number] Start Date: 05/26/16 Status: Ordered Basic metabolic panel Basic metabolic panel, See Instructions, # 1 each, Refills 0, Tot. Refills 0, Maintenance, Please send results to OSWADLO Gallegos (patient's PCP), 03/08/22 12:30:00 EDT, Supply [...] Effective Dates Status Health Status Inform ant AAA (abdominal aortic aneurysm)(Confirmed) Active Acute hypoxemic respiratory failure(Confirmed) Active Bacterial pneumonia(Confirmed) Active Diabetes mellitus(Confirmed) Active Gastrointestinal Hemorrhage(Confirmed) Active Neuropathy(Confirmed) [...] Unknown Unknown 02/24/20 Unknown Unknown Active Unknown Care Team Personnel Name: Bharathi Branch Address: [address] [place] [address]
--- OUTSIDE RECORDS SUMMARY | 2024-02-09 14:52 | XMS_ITS | Continuity of Care Document ---
Author Organization [facility] Address [address] [place] [address]- Care Team Providers Care Immigration Lawyer Name Role Phone Uri TAVERAS, Mercy Barrett Primary Care Physician [place] [facility] [place]23 [facility] [address] [place] [address] Attending Physician: Kofi Tolliver Admitting Physician: AdmKofi montalvo Referring Physician: Admtr, Kofi Allergies, Adverse Reactions, Alerts Substance Reaction Severity Status tetracyclines rash Active Bactrim DS rash Active Contrast Dye angioedema, dyspnea Active Immunizations Given and Recorded Vaccine Date Status Refusal Reason pneumococcal 20-valent conjugate vaccine 02/09/23 Given [id number] 12y+ bivalent booster vax 07/10/22 Recorded influenza virus vaccine, inactivated 07/03/22 Brannon rded influenza virus vaccine, inactivated 07/08/21 Brannon rded influenza virus vaccine, inactivated 06/12/20 Brannon rded influenza virus vaccine, inactivated 07/04/19 Rbannon rded influenza virus vaccine, inactivated 06/15/18 Brannon [...] Brannon rded SARS-CoV-2 (COVID-19) mRNA BNT-162b2 vac 8/17/21 Recorded SARS-CoV-2 (COVID-19) mRNA BNT-162b2 vac 12/02/20 [...] Replace Required Details, Route to Pharmacy Electronically, [facility] #[id number], 177, cm, 04/19/23 14:... Start Date: 04/19/23 Status: Ordered atorvastatin 80 mg oral tablet 1 tablet = 80 mg, By Mouth, Daily, # 90 tablet, 3 Refills, Maintenance, 04/19/23 15:01:00 EDT, Tablet, [facility] #[id number], Partial fill upon patient request if the prescription is for a schedule II opioid drug., 177, cm, 04/19/23 14:26:00 EDT... Start Date: 04/19/23 Status: Ordered fenofibrate 145 mg oral tablet 1 tablet = 145 mg, By Mouth, Daily, # 90 tablet, 3 Refills, Maintenance, 04/19/23 15:02:00 EDT, Tablet, [facility] #37331, 177, cm, 04/19/23 14:26:00 EDT, Height, 89.6, [...] 11 Refills, Maintenance, 04/19/23 15:03:00 EDT, Solution, [facility] #[id number], Partial fill upon patient request if the prescription is for a schedule II opioid drug., 177, cm, 07... Start Date: 04/19/23 Status: Ordered lansoprazole 30 mg oral enteric coated capsule See Instructions, TAKE 1 CAPSULE BY MOUTH EVERY DAY, # 90 capsule, 3 Refills, Maintenance, 04/19/2315:04:00 EDT, [facility] #93077, 177, cm, 04/19/23 14:26:00 EDT, Height, 89.6, kg, 02/23/23 9:24:00 EDT, Dry Weight Start Date: 04/19/23 Status: Ordered Nitrostat 0.4 mg sublingual tablet 1 tablet = 0.4 mg, Sublingual, Every 5 minutes, PRN for chest pain, Please divide 25 tablets X 4 bottles, # 100 tablet, 2 Refills, Maintenance, 04/19/23 15:05:00 EDT, Tablet, [facility] #[id number], 177, cm, 04/19/23 14:26:00 EDT, Height, 89.6, k... Start Date: 04/19/23 Status: Ordered Pen [place], 32 G x 4 mm BD Ultra [...] mL, 11 Refills, Maintenance, 04/19/23 15:04:00 EDT, [facility] #[id number], Partial fill upon patient request if the [...] Team Personnel Name: Aurora Fairbanks RN Position: [facility] SN RN Member Role: Primary Care Nurse Name: Micaela Bridges RN Position: [facility] AMB Nurse Member Role: Primary Care Nurse Name: Mi Pelaez RN Position: [facility] RN Member Role: Primary Care Nurse Name: Angela Nogueira RN Position: [facility] RN Member Role: Primary Care Nurse Name: Mercy Grewal NP Position: [facility] PCO Associate Professional Member Role: PCP Address: Address: [address] [place] [address]- [place] Name: Cruz Hilliard RN Position: [facility] Nurse Member Role: Primary Care Nurse Name: Mya Hays RN Position: [facility] SN RN Member Role: Primary Care Nurse Name: Jean Lucero MD Position: [facility] Cardiology MD Member Role: Lifetime Consulting Physician Address: Address: [address] [place] [address] [place] [address]- [place] Name: Chante Nielson RN Position: [facility] Bundler Member Role: Primary Care Nurse Care Team Related Persons Name: HEMALATHA SALAZAR Address: home [address] [place] [address] Name: RONALD SALAZAR Address: [address] [place] [address]
--- OUTSIDE RECORDS SUMMARY | 2024-02-09 14:52 | XMS_ITS | Continuity of Care Document ---
Author Organization [facility] ter Address [address] [place] [address]- Care Team Providers Care Utility Person Name Role Phone Bharathi Barnch Primary Care Physician ( [phone] En[place] [facility] [place] [id number] Date(s): 03/05/22 - 03/08/[address] [address]- Discharge Disposition: A-Transfer VNA/Home Health Attending Physician: Estefania Lam MD Admitting Physician: Marah Atkins MD Referring Physician: Not on Staff, Referring [...] 08/18/12 15:05:06 Start Date: 08/18/12 Status: Ordered Acetaminophen Tablet 975 mg, Tablet, By Mouth, 03/08/22 9:00:00 EDT Start Date: 03/08/22 Stop Date: 03/08/22 Status: Completed aspirin 81 mg oral tablet 1 tablet [...] 3 Refills, Maintenance, Tablet, Route to PharmacyElectronically, [id number], [facility]/pharmacy #[id number] Start Date: 05/26/16 Status: Ordered Augmentin 875 mg-125 mg oral tablet 1 tablet, By Mouth, Every 12 hours, for 2 days, Start on night of discharge, last dose on evening of 03/09, # 3 tablet, 0 Refills, Acute 03/10/22 12:21:00 EDT, 03/08/22 12:21:00 EDT, Tablet, [facility], Partial fill upon patient request if... Start Date: 03/08/22 Stop Date: 03/10/22 Status: Ordered Basic metabolic panel Basic metabolic [...] mellitus(Confirmed) Active Gastrointestinal Hemorrhage(Confirmed) Active Neuropathy(Confirmed) Active Obese class I(Confirmed) Active Results Orders for Microbiology Reports Name Date Blood Culture 03/05/22 Blood Culture #2 03/05/22 Microbiology Reports TEST:Blood Culture, Second Order STATUS:Unauthenticated BODY SITE: SOURCE:Blood COLLECTED DATE/TIME:03/05/22 11:00 AM Blood Culture, Second Order SPECIMEN DESCRIPTION : BLOOD NO SITE SPECIAL REQUESTS : NONE CULTURE : NO GROWTH 3 DAYS REPORT STATUS : PRELIMINARY REPORT TEST:Blood Culture STATUS:Unauthenticated BODY SITE: SOURCE:Blood COLLECTED DATE/TIME:03/05/22 10:45 AM Blood Culture SPECIMEN DESCRIPTION : BLOOD RARM SPECIAL REQUESTS : NONE CULTURE : NO GROWTH 3 DAYS REPORT STATUS : PRELIMINARY REPORT Radiology Reports * Exam Date Time Procedure Performing Provider Status 03/05/22 11:00 AM Chest Portable Papadakis , Trisha; Au th (Verified) Notes: (Chest Portable) Reason For Exam: Shortness of Breath RESULT: Chest Portable Chest Portable, AP upright at 10:54 AM. Reason: Shortness of Breath; Clinical Question(s): Pneumonia COMPARISON: Multiple priors, most recent 11/08/2019 FINDINGS: LINES AND TUBES: Dual-lead left subclavian pacer/AICD wires are intact. LUNGS AND PLEURA: Mild patchy opacities of the lungs, predominantly in a central pattern and in the mid to lower lungs. No pleural effusion. No pneumothorax. HEART, MEDIASTINUM AND EMILIA: Mild prominence of the cardiac silhouette. Normal upper mediastinal and hilar contour. BONES AND SOFT TISSUES: No acute abnormality. Patient is status post median sternotomy. IMPRESSION: Findings concerning for pulmonary edema. Viral pneumonia is also a possibility, although less likely. I have personally reviewed the images and I agree with this report. WSN: [id number] Ordering Physician: Vicky Vidal Dictated By: Tristan Davenport DO Dictated Date/Time: 03/05/22 11:44 a Reviewed By: Nithin Orellana MD, V Signed By: Nithin Orellana MD, V Signed Date/Time: 03/05/22 11:49 am Transcribed By: MARSHAL Transcribed Date/Time: 03/05/22 11:33 am Vital Signs Most recent to oldest [Reference Range]: 1 2 3 Height 175 cm (03/08/22 12:52 PM) 175 cm (03/08/22 3:03 AM) 175 cm (03/07/22 10:17 PM) Weight 94.8 kg (03/05/22 3:56 PM) Oxygen Saturation [94-100 %] 100 % (03/08/22 12:52 PM) 95 % (03/08/22 3:03 AM) 99 % (03/07/22 10:17 PM) Pulse Rate [55-90 bpm] 65 bpm (03/08/22 12:52 PM) 66 bpm (03/08/22 7:52 AM) 66 bpm (03/08/22 3:03 AM) Body Mass Index [18.5-24.99] 30.96 *>HHI* (03/05/22 3:56 PM) Blood Pressure [90-138/55-84 mm Hg] 121/66mm Hg (03/08/22 12:52 PM) 142/67mm Hg *H* (03/08/22 7:52 AM) Systolic Blood Pressure [90-138 mm Hg] 139 mm Hg *H* (03/08/22 3:03 AM) Diastolic Blood Pressure [55-84 mm Hg] 84 mm Hg (03/07/22 10:17 PM) Respiratory Rate [16-30 br/min] 80 br/min *H* (03/08/22 12:52 PM) 18 br/min (03/08/22 11:10 AM) 24 br/min (03/08/22 3:03 AM) Temperature [96.8-100.4 DegF] 97.7 DegF (03/08/22 12:52 PM) 97.6 DegF (03/08/22 3:03 AM) 97.5 DegF (03/07/22 10:17 PM) Liters per Minute 2 L/min (03/08/22 12:52 PM) 1 L/min (03/07/22 11:27 AM) 1 L/min (03/07/22 8:35 AM) Mode of Delivery (Oxygen) Nasal cannula (03/08/22 12:52 PM) Room air (03/08/22 3:03 AM) Room air (03/07/22 10:17 PM) Blood pressure sites Arm, right (03/08/22 12:52 PM) Arm, left (03/08/22 7:52 AM) Arm, left (03/08/22 3:03 AM) Temperature Route Oral (03/08/22 12:52 PM) Oral (03/08/22 3:03 AM) Oral (03/07/22 10:17 PM) Dry Weight 94.8 kg (03/05/22 3:56 PM) Weight Obtained Via Patient/family state d (03/05/22 3:56 PM) Dry Weight Obtained Via Patient/family s tated (03/05/22 3:56 PM) Social History Social History Type Response Smoking Status Former smoker; Other : Quit 1993 without relapse; entered on: 10/22/16 Sex Medical Equipment Implanted Date:06/07/18Target Site:Eye Right Description Quantity MRI Company Model GRAFT AMNIOGRAFT 2X1.5 SIZE B - BIOT (AG) 1 [employer] Unknown KYLE:No Information Assigning Authority: FDA
--- OUTSIDE RECORDS SUMMARY | 2024-02-09 14:52 | XMS_ITS | Continuity of Care Document ---
Author Organization [facility] Andrea Ashish lt Address [address] [place] [address]- Care Team Providers Care Data Modeler Name Role Phone Uri TAVERAS, Mercy Barrett Primary Care Physician [place] [facility] [place]23 [place] 03/21/23 [facility] Adult [address] [place] [address]- Allergies, Adverse Reactions, Alerts Substance Reaction Severity Status tetracyclines rash Active Bactrim DS rash Active Contrast Dye angioedema, dyspnea Active Immunizations Given and Recorded Vaccine Date Status Refusal Reason pneumococcal 20-valent conjugate vaccine 02/09/23 Given [id number] 12y+ bivalent booster vax 07/10/22 Recorded influenza [...] Replace Required Details, Route to Pharmacy Electronically, [facility], 175, cm, 02/09/23 11:14:00 EDT, Height, 89.2, kg,... Start Date: 02/16/23 Status: Ordered atorvastatin 80 mg oral tablet 1 tablet = 80 mg, By Mouth, Daily, # 90 tablet, 3 Refills, Maintenance, 02/16/23 16:53:00 EDT, Tablet, [facility]/pharmacy #[id number], Partial fill upon patient request if the prescription is for a schedule II opioid drug., 175, cm, 02/09/23 11:14:00 EDT, Height,... Start Date: 02/16/23 Status: Ordered fenofibrate 145 mg oral tablet 1 tablet = 145 mg, By Mouth, Daily, # 90 tablet, 3 Refills, Maintenance, 02/16/23 16:53:00 EDT, Tablet, [facility]/pharmacy #[id number], 175, cm, 02/09/23 11:14:00 EDT, Height, [...] 3 Refills, Maintenance, 02/16/2310:39:00 EDT, [facility], 175, cm, 02/09/23 11:14:00 EDT, Height, 89.2, [...] 02/09/23 Stop Date: 03/11/23 Status: Ordered Pen [place], 32 G x 4 mm BD Ultra [...] mL, 11 Refills, Maintenance, 02/19/23 15:45:00 EDT, [facility] #45461, Partial fill upon patient request if the [...] History of diverticulitis Confirmed Active History of [place] (myocardial infarction) Confirmed Active Hypercholesteremia Confirmed Active [...] Team Personnel Name: Aurora Fairbanks RN Position: [facility] SN RN Member Role: Primary Care Nurse Name: Micaela Bridges RN Position: [facility] AMB Nurse Member Role: Primary Care Nurse Name: Mi Pelaez RN Position: [facility] RN Member Role: Primary Care Nurse Name: Angela Nogueira RN Position: [facility] RN Member Role: Primary Care Nurse Name: Mercy Grewal NP Position: [facility] PCO Associate Professional Member Role: PCP Address: Address: [address] [place] [phone]- [place] Name: Cruz Hilliard RN Position: [facility] AMB Nurse Member Role: Primary Care Nurse Name: Jean Lucero MD Position: [facility] Cardiology MD Member Role: Lifetime Consulting Physician Address: Address: [address] [place] [address]- [place] Name: Chante Nielson RN Position: [facility] Eyewear Manufacturing Tech Member Role: Primary Care Nurse Care Team Related Persons Name: HEMALATHA SALAZAR Address: home [address] [place] [address] Name: RONALD SALAZAR Address: [address] [place] [address]
--- OUTSIDE RECORDS SUMMARY | 2024-02-09 14:52 | XMS_ITS | Continuity of Care Document ---
Author Organization [facility] Address [address] [place] [address]- Care Team Providers Care Civil Engineering Director Name Role Phone Bharathi Branch Primary Care Physician ( [phone] [id number] Date[facility]s): 12/01/22 - 02/08/23 [facility] [address] [place] [address]- Discharge Disposition: A-D/C Home Attending Physician: Jaya [...] 3 Refills, Maintenance, Tablet, Route to PharmacyElectronically, [id number], [facility]/pharmacy #[id number] Start Date: 05/26/16 Status: [...] oldest [Reference Range]: 1 Height 175 cm (12/09/22 10:50 AM) Weight 89.2 kg (12/09/22 10:50 AM) Oxygen Saturation [94-100 %] 97 % (12/09/22 10:50 AM) Pulse Rate [55-90 bpm] 69 bpm (12/09/22 10:50 AM) Body Mass Index [18.5-24.99 kg/m2] 29.13 kg/m2 *H* (12/09/22 10:50 AM) Blood Pressure [90-138/55-84 mm Hg] 143/ 74mm Hg *H* (12/09/22 10:50 AM) Temperature [96.8-100.4 DegF] 98.0 DegF (12/09/22 10:50 AM) Mode of Delivery (Oxygen) Room air (12/09/22 10:50 AM) Blood pressure sites Arm, right (12/09/22 10:50 AM) Temperature Route Temporal (12/09/22 10:50 AM) Dry Weight 89.2 kg (12/09/22 10:50 AM) Weight Obtained Via Standing scale (12/09/22 10:50 AM) Dry Weight Obtained Via Standing scale (12/09/22 10:50 AM) Social History Social History Type Response [...] Team Personnel Name: Aurora Fairbanks RN Position: [facility] SN RN Member Role: Primary Care Nurse Name: Micaela Bridges RN Position: [facility] PCO RN Member Role: Primary Care Nurse Name: Mi Pelaez RN Position: [facility] RN Member Role: Primary Care Nurse Name: Angela Nogueira RN Position: [facility] RN Member Role: Primary Care Nurse Name: Cruz Hilliard RN Position: [facility] PCO RN Member Role: Primary Care Nurse Name: Jean Lucero MD Position: [facility] Cardiology MD Member Role: Lifetime Consulting Physician Address: Address: [address] [place] [address] [place] [address]- Name: Bharathi Branch Position: Reference Physician Member Role: PCP Address: Address: [address] [place] [address] - Name: Chante Nielson RN Position: [facility] Hospital Music Department Chair Member Role: Primary Care Nurse Care Team Related Persons Name: HEMALATHA SALAZAR Address: [address] [place] [address] Name: RONALD SALAZAR Address: [address] [place], [place]
--- OUTSIDE RECORDS SUMMARY | 2024-02-09 14:53 | XMS_ITS | Continuity of Care Document ---
Author Organization [facility] Address [address] [place] [address]- Care Team Providers Care Irrigator Overhead Name Role Phone Bharahti Branch Primary Care Physician [id number] Date(s): 12/03/21 - 01/02/22 [facility] [address] [place] [address] Attending Physician: Admtr, Yousif8 Admitting Physician: Admtr, Ar8 Referring Physician: Admtr, Ar8 Allergies, Adverse Reactions, Alerts Substance Reaction Severity [...] 3 Refills, Maintenance, Tablet, Route to PharmacyElectronically, [id number], [facility]/pharmacy #[id number] Start Date: 05/26/16 Status: Ordered fenofibrate [...] Active Neuropathy(Confirmed) Active Obese class I(Confirmed) Active Social History Social History Type Response Smoking Status Former smoker; Other : Quit 1993 without relapse; entered on: 1/19/17 Sex Medical Equipment Implanted Date:06/07/18Target Site:Eye Right Description Quantity MRI Company Model GRAFT AMNIOGRAFT 2X1.5 SIZE B - BIOT () 1 [employer] Unknown KYLE:No Information Assigning Authority: FDA
--- OUTSIDE RECORDS SUMMARY | 2024-02-09 14:53 | XMS_ITS | Continuity of Care Document ---
Author Organization [facility] Address [address] [place] [address]- Care Team Providers Care Security Director Name Role Phone Jaya Brock MD Primary Care Physician Encounter [facility] [place] Date(s): 03/26/20 - 04/02/20 [facility] [address] [place] [address]- [facility] Attending Physician: Ciara TAVERAS, Mago Rivera Admitting Physician: Ciara TAVERAS, Mago Rivera Referring Physician: Jaya Brock MD Allergies, Adverse Reactions, Alerts Substance Reaction [...] 3 Refills, Maintenance, Tablet, Route to PharmacyElectronically, [id number], [facility]/pharmacy #[id number] Start Date: 05/26/16 Status: Ordered benadryl [...] 2X1.5 SIZE B - BIOT () 1 [facility] Unknown KYLE:No Information Assigning Authority: FDA
--- OUTSIDE RECORDS SUMMARY | 2024-02-09 14:53 | XMS_ITS | Continuity of Care Document ---
Author Organization [facility] Address [address], [address] Floor, [address] [place] [address]- Care Team Providers Care Pharmacy Specialist Name Role Phone Bharathi Branch Primary Care Physician ( [phone] [id number] Date(s): 09/10/22 - 10/10/22 [facility] [address], 3[address], [address] [place] [address]- Allergies, Adverse Reactions, Alerts Substance Reaction Severity [...] 3 Refills, Maintenance, Tablet, Route to PharmacyElectronically, [id number], [facility]/pharmacy #[id number] Start Date: 05/26/16 Status: [...] Gastrointestinal Hemorrhage Confirmed Active Neuropathy Confirmed Active Social History Social History Type [...] Team Personnel Name: Aurora Fairbanks RN Position: [facility] SN RN Member Role: Primary Care Nurse Name: Micaela Bridges RN Position: [facility] PCO RN Member Role: Primary Care Nurse Name: Mi Pelaez RN Position: [facility] RN Member Role: Primary Care Nurse Name: Angela Nogueira RN Position: [facility] RN Member Role: Primary Care Nurse Name: Cruz Hilliard RN Position: [facility] PCO RN Member Role: Primary Care Nurse Name: Mya Hays RN Position: [facility] RN Member Role: Primary Care Nurse Name: Jean Lucero MD Position: [facility] Cardiology MD Member Role: Lifetime Consulting Physician Address: Address: [address] [place] [address] [place] [address]- Name: Bharathi Branch Position: Reference Physician Member Role: PCP Address: Address: [address] [place] [address] Name: Chante Nielson RN Position: [facility] Hospital Welding Process Engineer Member Role: Primary Care Nurse Care Team Related Persons Name: HEMALATHA SALAZAR Address: home [address] [place] [address] Name: RONALD SALAZAR Address: home [address] [place] [address]
--- OUTSIDE RECORDS SUMMARY | 2024-02-09 14:53 | XMS_ITS | Continuity of Care Document ---
Author Organization [facility] Andrae Ashish lt Address [address] [place] [address]- Care Team Providers Care Information Technology Officer Name Role Phone Uri TAVERAS, Mercy Barrett Primary Care Physician Encounter [facility] [place] Date(s): 10/12/23 - 10/19/23 [facility] Adult [address] [place] [address]- Encounter Diagnosis AAA (abdominal aortic aneurysm)(Discharge Diagnosis) - 10/12/23 Diabetes mellitus(Discharge Diagnosis) - 10/12/23 Malignant tumor of pharynx(Discharge Diagnosis) - 10/12/23 PVD (peripheral vascular disease)(Discharge Diagnosis) - 10/12/23 Sick sinus syndrome(Discharge Diagnosis) - 10/12/23 Stage 3b chronic kidney disease (CKD)(Discharge Diagnosis) - 10/12/23 Hypertension(Discharge Diagnosis) - 10/12/23 Anxiety(Discharge Diagnosis) - 10/12/23 [facility]PC prescription benzodiazepine use(Discharge Diagnosis) - 10/12/23 Lumbar radiculopathy(Discharge Diagnosis) - 10/12/23 Attending Physician: Not on Staff, Attending MD Allergies, Adverse Reactions, Alerts Substance Reaction [...] rded pneumococcal 20-valent conjugate vaccine 02/09/23 Given [id number] 12y+ bivalent booster vax 07/10/22 Recorded SARS-CoV-2 [...] Replace Required Details, Route to Pharmacy Electronically, [facility] #[id number], 177, cm, 04/19/23 14:... Start Date: 04/19/23 Status: Ordered atorvastatin 80 mg oral tablet 1 tablet = 80 mg, By Mouth, Daily, # 90 tablet, 3 Refills, Maintenance, 04/19/23 15:01:00 EDT, Tablet, [facility] #[id number], Partial fill upon patient request if the prescription is for a schedule II opioid drug., 177, cm, 04/19/23 14:26:00 EDT... Start Date: 04/19/23 Status: Ordered fenofibrate 145 mg oral tablet 1 tablet = 145 mg, By Mouth, Daily, # 90 tablet, 3 Refills, Maintenance, 04/19/23 15:02:00 EDT, Tablet, [facility] #[id number], 177, cm, 04/19/23 14:26:00 EDT, Height, 89.6, [...] 11 Refills, Maintenance, 04/19/23 15:03:00 EDT, Solution, [facility] #[id number], Partial fill upon patient request if the prescription is for a schedule II opioid drug., 177, cm, 07... Start Date: 04/19/23 Status: Ordered lansoprazole 30 mg oral enteric coated capsule See Instructions, TAKE 1 CAPSULE BY MOUTH EVERY DAY, # 90 capsule, 3 Refills, Maintenance, 04/19/2315:04:00 EDT, [facility] #[id number], 177, cm, 04/19/23 14:26:00 EDT, Height, 89.6, kg, 02/23/23 9:24:00 EDT, Dry Weight Start Date: 04/19/23 Status: Ordered LORazepam 0.5 mg oral tablet 1 tablet = 0.5 mg, By Mouth, 2 times a day, # 60 tablet, 2 Refills, Acute 10/30/23 21:00:00 EST, 07/30/23 14:22:00 EDT, Tablet, [facility] #[id number], Partial fill upon patient request if the prescription is for a schedule II opioid drug., 177,... Start Date: 07/30/23 Stop Date: 10/30/23 Status: Ordered Nitrostat 0.4 mg sublingual tablet 1 tablet = 0.4 mg, Sublingual, Every 5 minutes, PRN for chest pain, Please divide 25 tablets X 4 bottles, # 100 tablet, 2 Refills, Maintenance, 04/19/23 15:05:00 EDT, Tablet, [facility] #[id number], 177, cm, 04/19/23 14:26:00 EDT, Height, 89.6, k... 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 Active Throat cancer [...] Effective Dates Health Status Clinical Service Informant AAA (abdominal aortic aneurysm) Discharge Diagnosis 10/12/23 Diabetes mellitus Discharge Diagnosis 10/12/23 Malignant tumor of pharynx Discharge Diagnosis 10/12/23 PVD (peripheral vascular disease) Discharge Diagnosis 10/12/23 Sick sinus syndrome Discharge Diagnosis 10/12/23 Stage 3b chronic kidney disease (CKD) Discharge Diagnosis 10/12/23 Hypertension Discharge Diagnosis 10/12/23 Anxiety Discharge Diagnosis 10/12/23 [facility]PC prescription benzodiazepine use Discharge Diagnosis 10/12/23 Lumbar radiculopathy Discharge Diagnosis 10/12/23 Vital Signs Most recent to oldest [Reference Range]: 1 2 3 Height 177 cm (10/12/23 11:35 AM) 177 cm (10/12/23 10:58 AM) 177 cm (10/12/23 10:51 AM) Weight 91.5 kg (10/12/23 10:51 AM) Oxygen Saturation [94-100 %] 100 % (10/12/23 10:51 AM) Pulse Rate [55-90 bpm] 70 bpm (10/12/23 10:51 AM) Body Mass Index [18.5-24.99 kg/m2] 29.21 kg/m2 *H* (10/12/23 10:51 AM) Blood Pressure [90-138/55-84 mm Hg] 133/65mm Hg (10/12/23 11:35 AM) 155/71mm Hg *H* (10/12/23 10:58 AM) 150/68mm Hg *H* (10/12/23 10:51 AM) Blood pressure sites Arm, right (10/12/23 11:35 AM) Arm, left (10/12/23 10:51 AM) Social History Social History Type Response [...] Team Personnel Name: Aurora Fairbanks RN Position: [facility] SN RN Member Role: Primary Care Nurse Name: Micaela Bridges RN Position: [facility] AMB Nurse Member Role: Primary Care Nurse Name: Mi Pelaez RN Position: [facility] RN Member Role: Primary Care Nurse Name: Angela Nogueira RN Position: [facility] RN Member Role: Primary Care Nurse Name: Mercy Grewal NP Position: [facility] PCO Associate Professional Member Role: PCP Address: Address: [address] [place] [address]- Name: Cruz Hilliard RN Position: [facility] AMB Nurse Member Role: Primary Care Nurse Name: Mya Hays RN Position: [facility] SN RN Member Role: Primary Care Nurse Name: Jean Lucero MD Position: [facility] Cardiology MD Member Role: Lifetime Consulting Physician Address: Address: [address] [place] [address]- [place] Name: Chante Nielson RN Position: [facility] Hospital Leaf Binner Member Role: Primary Care Nurse Care Team Related Persons Name: HEMALATHA SALAZAR Address: home [address] [place] [address] Name: RONALD SALAZAR Address: [address] [place] [address]
--- OUTSIDE RECORDS SUMMARY | 2024-02-09 14:53 | XMS_ITS | Continuity of Care Document ---
Author Organization [facility] [place] [facility] Address [address] [place] [address]- Care Team Providers Care Duct Maker Name Role Phone Bharathi Branch Primary Care Physician [id number] Date(s): 11/12/20 - 02/03/21 [facility] [place] [facility] [address] [place] [address]- Discharge Disposition: A-D/C Home Attending Physician: Jaya [...] 3 Refills, Maintenance, Tablet, Route to PharmacyElectronically, [id number], [facility]/pharmacy #[id number] Start Date: 05/26/16 Status: [...]
--- OUTSIDE RECORDS SUMMARY | 2024-02-09 14:53 | XMS_ITS | Continuity of Care Document ---
Author Organization [facility] Address [address] [place] [address]- Care Team Providers Care Mri Specialist Name Role Phone Vinod DOLAN, Jaya Richards Primary Care Physician [place] [facility] [place] 06/21/20 - 07/26/[address] [address]- [facility] Attending Physician: Clarence DOLAN, Juan Ramon Sanchez Allergies, Adverse Reactions, Alerts Substance Reaction Severity [...] 3 Refills, Maintenance, Tablet, Route to PharmacyElectronically, [id number], [facility]/pharmacy #[id number] Start Date: 05/26/16 [...] recent to oldest [Reference Range]: 1 Height 176 cm (06/21/20 10:48 AM) Social History Social History Type Response Smoking Status Former smoker; Other : Quit 1993 without relapse; entered on: 10/22/16 Sex Medical Equipment Implanted Date:06/07/18Target Site:Eye Right Description Quantity MRI Company Model GRAFT AMNIOGRAFT 2X1.5 SIZE B - BIOT () 1 [employer] Unknown KYLE:No Information Assigning Authority: FDA
--- OUTSIDE RECORDS SUMMARY | 2024-02-09 14:53 | XMS_ITS | Continuity of Care Document ---
Author Organization [facility] Address [address] [place] [address]- Care Team Providers Care Psych Np Name Role Phone Bharathi Branch Primary Care Phys[id number] Date(s): 12/03/21 - 02/02/22 [facility] [address] [place] [address]- Discharge Disposition: A-D/C Home Attending Physician: Jaya [...] 3 Refills, Maintenance, Tablet, Route to PharmacyElectronically, [id number], [facility] #[id number] Start Date: 05/26/16 Status: Ordered fenofibrate 145 mg oral tablet 1 tablet = 145 mg, By Mouth, Daily, # 90 tablet, 3 Refills, Maintenance, Tablet Start Date: 09/09/12 Stop Date: 09/04/13 Status: Ordered furosemide 20 mg oral tablet 1, capsule, By Mouth, Once, # 1 tablet, Refills 0, Maintenance, 01/08/22 10:55:00 EDT, Partial fillupon patient request if the prescription is for [...] Active Neuropathy(Confirmed) Active Obese class I(Confirmed) Active Vital Signs Most recent to oldest [Reference Range]: 1 Height 175 cm (12/03/21 11:10 AM) Weight 97.8 kg (12/03/21 11:10 AM) Pulse Rate [55-90 bpm] 90 bpm (12/03/21 11:10 AM) Body Mass Index [18.5-24.99] 31.93 *>HHI* (12/03/21 11:10 AM) Blood Pressure [90-138/55-84 mm Hg] 140/ 82mm Hg *H* (12/03/21 11:10 AM) Temperature [96.8-100.4 DegF] 96.8 DegF (12/03/21 11:10 AM) Blood pressure sites Arm, right (12/03/21 11:10 AM) Temperature Route Temporal (12/03/21 11:10 AM) Dry Weight 97.8 kg (12/03/21 11:10 AM) Weight Obtained Via Standing scale (12/03/21 11:10 AM) Dry Weight Obtained Via Standing scale (12/03/21 11:10 AM) Social History Social History Type Response Smoking Status Former smoker; Other : Quit 1993 without relapse; entered on: 10/22/16 Sex Medical Equipment Implanted Date:06/07/18Target Site:Eye Right Description Quantity MRI Company Model GRAFT AMNIOGRAFT 2X1.5 SIZE B - BIOT () 1 [employer] Unknown KYLE:No Information Assigning Authority: FDA
--- OUTSIDE RECORDS SUMMARY | 2024-02-09 14:53 | XMS_ITS | Continuity of Care Document ---
Author Organization [facility] Gerard Mendez Ashish lt Address [address] [place] [address]- Care Team Providers Care Composition Roofer Name Role Phone Uri TAVERAS, Mercy Barrett Primary Care Physician Encounter [facility] Date(s): 09/28/23 - 10/28/23 [facility] Gerard Mendez Adult [address] [place] [address]- Allergies, Adverse Reactions, Alerts Substance Reaction Severity [...] rded pneumococcal 20-valent conjugate vaccine 02/09/23 Given [id number] 12y+ bivalent booster vax 07/10/22 Recorded SARS-CoV-2 [...] Replace Required Details, Route to Pharmacy Electronically, [facility] #[id number], 177, cm, 04/19/23 14:... Start Date: 04/19/23 Status: Ordered atorvastatin 80 mg oral tablet 1 tablet = 80 mg, By Mouth, Daily, # 90 tablet, 3 Refills, Maintenance, 04/19/23 15:01:00 EDT, Tablet, [facility] #[id number], Partial fill upon patient request if the prescription is for a schedule II opioid drug., 177, cm, 04/19/23 14:26:00 EDT... Start Date: 04/19/23 Status: Ordered fenofibrate 145 mg oral tablet 1 tablet = 145 mg, By Mouth, Daily, # 90 tablet, 3 Refills, Maintenance, 04/19/23 15:02:00 EDT, Tablet, [facility] #[id number], 177, cm, 04/19/23 14:26:00 EDT, Height, 89.6, [...] Instructions Replace RequiredDetails, Route to Pharmacy Electronically, [facility]... Start Date: 04/19/23 Status: Ordered insulin detemir 100 units/mL subcutaneous solution = 30 units, Subcutaneous Injection, Daily at bedtime, # 7.8 mL, 11 Refills, Maintenance, 04/19/23 15:03:00 EDT, Solution, [facility] #[id number], Partial fill upon patient request if the prescription is for a schedule II opioid drug., 177, cm, 07... Start Date: 04/19/23 Status: Ordered lansoprazole 30 mg oral enteric coated capsule See Instructions, TAKE 1 CAPSULE BY MOUTH EVERY DAY, # 90 capsule, 3 Refills, Maintenance, 04/19/2315:04:00 EDT, [facility] #[id number], 177, cm, 04/19/23 14:26:00 EDT, Height, 89.6, kg, 02/23/23 9:24:00 EDT, Dry Weight Start Date: 04/19/23 Status: Ordered LORazepam 0.5 mg oral tablet 1 tablet = 0.5 mg, By Mouth, 2 times a day, # 60 tablet, 2 Refills, Acute 10/30/23 21:00:00 EST, 07/30/23 14:22:00 EDT, [facility][id number], Partial fill upon patient request if the prescription is for a schedule II opioid drug., 177,... Start Date: 07/30/23 Stop Date: 10/30/23 Status: Ordered Nitrostat 0.4 mg sublingual tablet 1 tablet = 0.4 mg, Sublingual, Every 5 minutes, PRN for chest pain, Please divide 25 tablets X 4 bottles, # 100 tablet, 2 Refills, Maintenance, 04/19/23 15:05:00 EDT, Tablet, [facility] #[id number], 177, cm, 04/19/23 14:26:00 EDT, Height, 89.6, k... Start Date: 04/19/23 Status: Ordered Pen [place], 32 G x 4 mm BD Ultra [...] mL, 11 Refills, Maintenance, 04/19/23 15:04:00 EDT, [facility] #[id number], Partial fill upon patient request if the [...] of diverticulitis Confirmed 07/07/23 Active History of [place] (myocardial infarction) Confirmed Active Hypercholesteremia Confirmed Active [...] Team Personnel Name: Aurora Fairbanks RN Position: [facility] SN RN Member Role: Primary Care Nurse Name: Micaela Bridges RN Position: [facility] AMB Nurse Member Role: Primary Care Nurse Name: Mi Pelaez RN Position: [facility] RN Member Role: Primary Care Nurse Name: Angela Nogueira RN Position: [facility] RN Member Role: Primary Care Nurse Name: Mercy Grewal NP Position: [facility] PCO Associate Professional Member Role: PCP Address: Address: [address] [place] [address]- [place] Name: Cruz Hilliard RN Position: [facility] Nurse Member Role: Primary Care Nurse Name: Mya Hays RN Position: [facility] RN Member Role: Primary Care Nurse Name: Jean Lucero MD Position: [facility] Cardiology MD Member Role: Lifetime Consulting Physician Address: Address: [address] [place] [address] [place] [address]- [place] Name: Chante Nielson RN Position: [facility] Calciner Operator Member Role: Primary Care Nurse Care Team Related Persons Name: HEMALATHA SALAZAR Address: home [address] [place] [address] Name: RONALD SALAZAR Address: home [address] [place] [address]
--- OUTSIDE RECORDS SUMMARY | 2024-02-09 14:53 | XMS_ITS | Continuity of Care Document ---
Author Organization [facility] ter Address [address] [place] [address]- Care Team Providers Care Band Scroll Saw Operator Name Role Phone Vinod DOLAN, Jaya Richards Primary Care Physician [place] [facility] 11/16/19 - 12/24/[address] [address]- [facility] Attending Physician: Julius Wiggins MD Admitting Physician: [...] 3 Refills, Maintenance, Tablet, Route to PharmacyElectronically, [id number], [facility]/pharmacy #[id number] Start Date: 05/26/16 Status: Ordered [...]
--- OUTSIDE RECORDS SUMMARY | 2024-02-09 14:53 | XMS_ITS | Continuity of Care Document ---
Author Organization [facility] Address [address] [place] [address]- Care Team Providers Care Bench Worker Helper Name Role Phone Bharathi Branch Primary Care Physician Encounter 03/09/22 - 04/03/22 [facility] [address] [place] [address]- Discharge Disposition: [facility] Allergies, Adverse Reactions, Alerts Substance Reaction Severity [...] 3 Refills, Maintenance, Tablet, Route to PharmacyElectronically, [id number], [facility]/pharmacy #[id number] Start Date: 05/26/16 Status: [...]
--- OUTSIDE RECORDS SUMMARY | 2024-02-09 14:53 | XMS_ITS | Continuity of Care Document ---
Author Organization [facility] C ancer Care Address [address] [place] [address]- Care Team Providers Care Firestopper Technician Name Role Phone Bharathi Branch Primary Care Physician ( [phone] [id number] Date(s): 11/12/20 - 12/12/20 [facility] [address] [place] [address] Attending Physician: Admtr, [id number] Admitting Physician: Admtr, [...] 3 Refills, Maintenance, Tablet, Route to PharmacyElectronically, [id number], [facility]/pharmacy #[id number] Start Date: 05/26/16 [...] 2X1.5 SIZE B - BIOT () 1 [employer] Unknown KYLE:No Information Assigning Authority: FDA
--- OUTSIDE RECORDS SUMMARY | 2024-02-09 14:53 | XMS_ITS | Continuity of Care Document ---
Author Organization [facility] ancer Care Address [address] [place] [address]- Care Team Providers Care Dural Mechanic Name Role Phone Bharathi Branch Primary Care Physician Encounter [facility]BR [id number] Date(s): 12/01/22 - 12/31/22 [facility] [address] [place] [address] Attending Physician: Admtr, [email or web address] Admitting Physician: [...] 3 Refills, Maintenance, Tablet, Route to PharmacyElectronically, [id number], [facility]/pharmacy #[id number] Start Date: 05/26/16 Status: Ordered Basic [...] chest pain,Instr:Please divide 25 ta... Start Date: 2/3/15 Status: Ordered Norvasc 5 mg oral tablet [...] Team Personnel Name: Aurora Fairbanks RN Position: [facility] SN RN Member Role: Primary Care Nurse Name: Micaela Bridges RN Position: [facility] PCO RN Member Role: Primary Care Nurse Name: Mi Pelaez RN Position: [facility] RN Member Role: Primary Care Nurse Name: Angela Nogueira RN Position: [facility] RN Member Role: Primary Care Nurse Name: Cruz Hilliard RN Position: [facility] PCO RN Member Role: Primary Care Nurse Name: Jean Lucero MD Position: [facility] Cardiology MD Member Role: Lifetime Consulting Physician Address: Address: [address] [place] [address] [place] [address]- Name: Bharathi Branch Position: Reference Physician Member Role: PCP Address: Address: [address] [place] [address]- Name: Chante Nielson RN Position: [facility] Hospital Addictions Counselor Member Role: Primary Care Nurse Care Team Related Persons Name: HEMALATHA SALAZAR Address: home [address] [place] [address] Name: RONALD SALAZAR Address: home [address] [place] [address]
--- OUTSIDE RECORDS SUMMARY | 2024-02-09 14:53 | XMS_ITS | Continuity of Care Document ---
Author Organization [facility] ter Address [address] [place] [address]- Care Team Providers Care Credit Professional Name Role Phone Mercy Grewal NP Primary Care Physician [phone] Encounter [facility] Date(s): 10/14/23 - 11/27/[address] [id number] Attending Physician: Mercy Grewal NP Admitting Physician: Mercy Grewal NP Referring Physician: Mercy Grewal NP Allergies, Adverse Reactions, Alerts Substance Reaction Severity [...] rded pneumococcal 20-valent conjugate vaccine 02/09/23 Given [id number] 12y+ bivalent booster vax 07/10/22 Recorded SARS-CoV-2 [...] Replace Required Details, Route to Pharmacy Electronically, [facility] #[id number], 177, cm, 04/19/23 14:... Start Date: 04/19/23 Status: Ordered atorvastatin 80 mg oral tablet 1 tablet = 80 mg, By Mouth, Daily, # 90 tablet, 3 Refills, Maintenance, 04/19/23 15:01:00 EDT, Tablet, [facility] #[id number], Partial fill upon patient request if the prescription is for a schedule II opioid drug., 177, cm, 04/19/23 14:26:00 EDT... Start Date: 04/19/23 Status: Ordered fenofibrate 145 mg oral tablet 1 tablet = 145 mg, By Mouth, Daily, # 90 tablet, 3 Refills, Maintenance, 04/19/23 15:02:00 EDT, Tablet, [facility] #[id number], 177, cm, 04/19/23 14:26:00 EDT, Height, 89.6, [...] Instructions Replace RequiredDetails, Route to Pharmacy Electronically, [facility]... Start Date: 04/19/23 Status: Ordered insulin detemir 100 units/mL subcutaneous solution = 30 units, Subcutaneous Injection, Daily at bedtime, # 7.8 mL, 11 Refills, Maintenance, 04/19/23 15:03:00 EDT, Solution, [facility] #[id number], Partial fill upon patient request if the prescription is for a schedule II opioid drug., 177, cm, 07... Start Date: 04/19/23 Status: Ordered lansoprazole 30 mg oral enteric coated capsule See Instructions, TAKE 1 CAPSULE BY MOUTH EVERY DAY, # 90 capsule, 3 Refills, Maintenance, 04/19/2315:04:00 EDT, [facility] #[id number], 177, cm, 04/19/23 14:26:00 EDT, Height, 89.6, kg, 02/23/23 9:24:00 EDT, Dry Weight Start Date: 04/19/23 Status: Ordered LORazepam 0.5 mg oral tablet 1 tablet = 0.5 mg, By Mouth, 2 times a day, # 60 tablet, 2 Refills, Acute 03/01/24 21:00:00 EDT, 12/02/23 7:00:00 EST, Tablet, [facility] #[id number], Partial fill upon patient request if the prescription is for a schedule II opioid drug., ... Start Date: 12/02/23 Stop Date: 03/01/24 Status: Ordered Nitrostat 0.4 mg sublingual tablet 1 tablet = 0.4 mg, Sublingual, Every 5 minutes, PRN for chest pain, Please divide 25 tablets X 4 bottles, # 100 tablet, 2 Refills, Maintenance, 04/19/23 15:05:00 EDT, Tablet, [facility] #[id number], 177, cm, 04/19/23 14:26:00 EDT, Height, 89.6, k... Start Date: 04/19/23 Status: Ordered Pen [place], 32 G x 4 mm BD Ultra [...] mL, 11 Refills, Maintenance, 04/19/23 15:04:00 EDT, [facility] #[id number], Partial fill upon patient request if the [...] of diverticulitis Confirmed 07/07/23 Active History of [place] (myocardial infarction) Confirmed Active Hypercholesteremia Confirmed Active Hypertension Confirmed Active nursing home prescription benzodiazepine use Confirmed Active Throat cancer [...] Team Personnel Name: Aurora Fairbanks RN Position: [facility] SN RN Member Role: Primary Care Nurse Name: Micaela Bridges RN Position: [facility] AMB Nurse Member Role: Primary Care Nurse Name: Mi Pelaez RN Position: [facility] RN Member Role: Primary Care Nurse Name: Angela Nogueira RN Position: [facility] RN Member Role: Primary Care Nurse Name: Mercy Grewal NP Position: [facility] PCO Associate Professional Member Role: PCP Address: Address: [address] [place] [address]- Name: Cruz Hilliard RN Position: [facility] AMB Nurse Member Role: Primary Care Nurse Name: Mya Hays RN Position: [facility] SN RN Member Role: Primary Care Nurse Name: Nic DOLAN, Jean Cortes Position: [facility] Cardiology MD Member Role: Lifetime Consulting Physician Address: Address: [address] [place] [address]- Name: Chante Nielson RN Position: [facility] Hospital Pitting Machine Operator Member Role: Primary Care Nurse Care Team Related Persons Name: HEMALATHA SALAZAR Address: home [address] [place] [address] Name: RONALD SALAZAR Address: home [address] [place] [address]
--- OUTSIDE RECORDS SUMMARY | 2024-02-09 14:53 | XMS_ITS | Continuity of Care Document ---
Author Organization [facility] Address [address] [place] [address]- Care Team Providers Care Textile Slitting Machine Operator Name Role Phone Vinod DOLAN, Jaya Richards Primary Care Physician Encounter [facility] Date(s): 12/19/19 - 06/19/20 [facility] [address] [place] [address] [facility] Discharge Disposition: A-D/C Home Attending Physician: Jaya [...] 3 Refills, Maintenance, Tablet, Route to PharmacyElectronically, [id number], [facility]/pharmacy #[id number] Start Date: 05/26/16 Status: Ordered benadryl [...] to oldest [Reference Range]: 1 2 Height 174 cm (03/28/20 10:35 AM) 174 cm (02/19/20 1:01 PM) Weight 100 kg (02/19/20 1:01 PM) Oxygen Saturation [94-100 %] 98 % (03/28/20 10:35 AM) 94 % (02/19/20 1:01 PM) Pulse Rate [55-90 bpm] 95 bpm *H* (02/19/20 1:01 PM) Body Mass Index [18.5-24.99] 33.03 *>HHI* (02/19/20 1:01 PM) Blood Pressure [90-138/55-84 mm Hg] 152/ 85mm Hg *H* (02/19/20 1:01 PM) Respiratory Rate [16-30 br/min] 18 br/mi n (03/28/20 10:35 AM) Temperature [96.8-100.4 DegF] 97.5 DegF (02/19/20 1:01 PM) Mode of Delivery (Oxygen) Room air (03/28/20 10:35 AM) Room air (02/19/20 1:01 PM) Blood pressure sites Arm, right (02/19/20 1:01 PM) Temperature Route Temporal (02/19/20 1:01 PM) Dry Weight 100 kg (02/19/20 1:01 PM) Weight Obtained Via Standing scale (02/19/20 1:01 PM) Dry Weight Obtained Via Standing scale (02/19/20 1:01 PM) Social History Social History Type Response Smoking Status Former smoker; Other : Quit 1993 without relapse; entered on: 10/22/16 Sex Medical Equipment Implanted Date:06/07/18Target Site:Eye Right Description Quantity MRI Company Model GRAFT AMNIOGRAFT 2X1.5 SIZE B - BIOT (AG-2014) 1 [employer] Unknown KYLE:No Information Assigning Authority: FDA
--- OUTSIDE RECORDS SUMMARY | 2024-02-09 14:53 | XMS_ITS | Continuity of Care Document ---
Author Organization [facility] Address [address] [place] [address]- Care Team Providers Care Operational Meteorologist Name Role Phone Uri TAVERAS, Mercy Barrett Primary Care Physician [phone] Encounter [facility] Date(s): 05/27/23 - 08/16/23 [facility] [address] [place] [id number] Discharge Disposition: A-D/C Home Attending Physician: Jaya [...] rded pneumococcal 20-valent conjugate vaccine 02/09/23 Given [id number] 12y+ bivalent booster vax 10/7/22 Recorded SARS-CoV-2 (COVID-19) mRNA BNT-162b2 vac 05/20/21 [...] Replace Required Details, Route to Pharmacy Electronically, [facility] #[id number], 177, cm, 04/19/23 14:... Start Date: 04/19/23 Status: Ordered atorvastatin 80 mg oral tablet 1 tablet = 80 mg, By Mouth, Daily, # 90 tablet, 3 Refills, Maintenance, 04/19/23 15:01:00 EDT, Tablet, [facility] #[id number], Partial fill upon patient request if the prescription is for a schedule II opioid drug., 177, cm, 04/19/23 14:26:00 EDT... Start Date: 04/19/23 Status: Ordered fenofibrate 145 mg oral tablet 1 tablet = 145 mg, By Mouth, Daily, # 90 tablet, 3 Refills, Maintenance, 04/19/23 15:02:00 EDT, Tablet, [facility] #[id number], 177, cm, 04/19/23 14:26:00 EDT, Height, 89.6, [...] Instructions Replace RequiredDetails, [facility] Start Date: 04/19/23 Status: Ordered insulin detemir 100 units/mL subcutaneous solution = 30 units, Subcutaneous Injection, Daily at bedtime, # 7.8 mL, 11 Refills, Maintenance, 04/19/23 15:03:00 EDT, Solution, [facility] #[id number], Partial fill upon patient request if the prescription is for a schedule II opioid drug., 177, cm, 07... Start Date: 04/19/23 Status: Ordered lansoprazole 30 mg oral enteric coated capsule See Instructions, TAKE 1 CAPSULE BY MOUTH EVERY DAY, # 90 capsule, 3 Refills, Maintenance, 04/19/2315:04:00 EDT, [facility] #[id number], 177, cm, 04/19/23 14:26:00 EDT, Height, 89.6, kg, 02/23/23 9:24:00 EDT, Dry Weight Start Date: 04/19/23 Status: Ordered LORazepam 0.5 mg oral tablet 1 tablet = 0.5 mg, By Mouth, 2 times a day, # 60 tablet, 2 Refills, Acute 10/30/23 21:00:00 EST, 07/30/23 14:22:00 EDT, Tablet, [facility] #[id number], Partial fill upon patient request if the prescription is for a schedule II opioid drug., 177,... Start Date: 07/30/23 Stop Date: 10/30/23 Status: Ordered Nitrostat 0.4 mg sublingual tablet 1 tablet = 0.4 mg, Sublingual, Every 5 minutes, PRN for chest pain, Please divide 25 tablets X 4 bottles, # 100 tablet, 2 Refills, Maintenance, 04/19/23 15:05:00 EDT, Tablet, [facility] #[id number], 177, cm, 04/19/23 14:26:00 EDT, Height, 89.6, k... Start Date: 04/19/23 Status: Ordered Pen [place], 32 G x 4 mm BD Ultra [...] mL, 11 Refills, Maintenance, 04/19/23 15:04:00 EDT, [facility] #[id number], Partial fill upon patient request if the [...] of diverticulitis Confirmed 07/07/23 Active History of [place] (myocardial infarction) Confirmed Active Hypercholesteremia Confirmed Active [...] functioning normally. Full report under separate cover. Vital Signs Most recent to oldest [Reference Range]: 1 Height 177 cm (06/16/23 10:36 AM) Weight 89.1 kg (06/16/23 10:36 AM) Oxygen Saturation [94-100 %] 99 % (06/16/23 10:36 AM) Pulse Rate [55-90 bpm] 70 bpm (06/16/23 10:36 AM) Body Mass Index [18.5-24.99 kg/m2] 28.44 kg/m2 *H* (06/16/23 10:36 AM) Blood Pressure [90-138/55-84 mm Hg] 126/ 67mm Hg (06/16/23 10:36 AM) Temperature [96.8-100.4 DegF] 98.7 DegF (06/16/23 10:36 AM) Mode of Delivery (Oxygen) Room air (06/16/23 10:36 AM) Blood pressure sites Arm, right (06/16/23 10:36 AM) Temperature Route Oral (06/16/23 10:36 AM) Dry Weight 89.1 kg (06/16/23 10:36 AM) Social History Social History Type Response [...] Team Personnel Name: Aurora Fairbanks RN Position: [facility] SN RN Member Role: Primary Care Nurse Name: Micaela Bridges RN Position: [facility] Nurse Member Role: Primary Care Nurse Name: Mi Pelaez RN Position: [facility] RN Member Role: Primary Care Nurse Name: Angela Nogueira RN Position: [facility] RN Member Role: Primary Care Nurse Name: Mercy Grewal NP Position: [facility] PCO Associate Professional Member Role: PCP Address: Address: [address] [place] [id number]- [place] Name: Cruz Hilliard RN Position: [facility] Nurse Member Role: Primary Care Nurse Name: Mya Hays RN Position: [facility] SN RN Member Role: Primary Care Nurse Name: Jean Lucero MD Position: [facility] Cardiology MD Member Role: Lifetime Consulting Physician Address: Address: [address] [place] [address] [place] [address]- [place] Name: Chante Nielson RN Position: [facility] Mission Manager Member Role: Primary Care Nurse Care Team Related Persons Name: HEMALATHA SALAZAR Address: [address] [place] [address] Name: RONALD SALAZAR Address: home [address] [place] [address]
--- OUTSIDE RECORDS SUMMARY | 2024-02-09 14:53 | XMS_ITS | Continuity of Care Document ---
Author Organization [facility] Gerard Mendez Ashish lt Address [address] [place] [address]- Care Team Providers Care Supervisor Concrete Stone Fabricating Name Role Phone Uri TAVERAS, Mercy Barrett Primary Care Physician Encounter [facility] Date(s): 11/05/23 - 12/05/23 [facility] Gerard Lairdley Adult [address] [place] [address]- Allergies, Adverse Reactions, Alerts Substance Reaction Severity [...] rded pneumococcal 20-valent conjugate vaccine 02/09/23 Given [id number] 12y+ bivalent booster vax 07/10/22 Recorded SARS-CoV-2 [...] Replace Required Details, Route to Pharmacy Electronically, [facility] #[id number], 177, cm, 04/19/23 14:... Start Date: 04/19/23 Status: Ordered atorvastatin 80 mg oral tablet 1 tablet = 80 mg, By Mouth, Daily, # 90 tablet, 3 Refills, Maintenance, 04/19/23 15:01:00 EDT, Tablet, [facility] #[id number], Partial fill upon patient request if the prescription is for a schedule II opioid drug., 177, cm, 04/19/23 14:26:00 EDT... Start Date: 04/19/23 Status: Ordered fenofibrate 145 mg oral tablet 1 tablet = 145 mg, By Mouth, Daily, # 90 tablet, 3 Refills, Maintenance, 04/19/23 15:02:00 EDT, Tablet, [facility] #[id number], 177, cm, 04/19/23 14:26:00 EDT, Height, 89.6, [...] 11 Refills, Maintenance, 04/19/23 15:03:00 EDT, Solution, [facility] #[id number], Partial fill upon patient request if the prescription is for a schedule II opioid drug., 177, cm, 07... Start Date: 04/19/23 Status: Ordered lansoprazole 30 mg oral enteric coated capsule See Instructions, TAKE 1 CAPSULE BY MOUTH EVERY DAY, # 90 capsule, 3 Refills, Maintenance, 04/19/2315:04:00 EDT, [facility] #[id number], 177, cm, 04/19/23 14:26:00 EDT, Height, 89.6, kg, 02/23/23 9:24:00 EDT, Dry Weight Start Date: 04/19/23 Status: Ordered LORazepam 0.5 mg oral tablet 1 tablet = 0.5 mg, By Mouth, 2 times a day, # 60 tablet, 2 Refills, Acute 03/01/24 21:00:00 EDT, 12/02/23 7:00:00 EST, Tablet, [facility] #[id number], Partial fill upon patient request if the prescription is for a schedule II opioid drug., 11/30/... Start Date: 12/02/23 Stop Date: 03/01/24 Status: Ordered Nitrostat 0.4 mg sublingual tablet 1 tablet = 0.4 mg, Sublingual, Every 5 minutes, PRN for chest pain, Please divide 25 tablets X 4 bottles, # 100 tablet, 2 Refills, Maintenance, 04/19/23 15:05:00 EDT, Tablet, [facility] #[id number], 177, cm, 04/19/23 14:26:00 EDT, Height, 89.6, k... 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 benzodiazepine use Confirmed Active Throat [...] Name: Aurora Fairbanks RN Position: [facility] SN RN Member Role: Primary Care Nurse Name: Micaela Bridges RN Position: [facility] AMB Nurse Member Role: Primary Care Nurse Name: Mi Pelaez RN Position: [facility] RN Member Role: Primary Care Nurse Name: Angela Nogueira RN Position: [facility] RN Member Role: Primary Care Nurse Name: Mercy Grewal NP Position: [facility] PCO Associate Professional Member Role: PCP Address: Address: [address] [place] [address]- Name: Cruz Hilliard RN Position: [facility] AMB Nurse Member Role: Primary Care Nurse Name: Mya Hays RN Position: [facility] SN RN Member Role: Primary Care Nurse Name: Jean Lucero MD Position: [facility] Cardiology MD Member Role: Lifetime Consulting Physician Address: Address: [address] [place] [address]- [place] Name: Chante Nielson RN Position: [facility] Hospital Car Pilot Member Role: Primary Care Nurse Care Team Related Persons Name: HEMALATHA SALAZAR Address: home [address] [place] [address] Name: RONALD SALAZAR Address: home [address] [place] [address]
--- OUTSIDE RECORDS SUMMARY | 2024-02-09 14:53 | XMS_ITS | Continuity of Care Document ---
Author Organization [facility] Address [address] [place] [address]- Care Team Providers Care Clamshell Engineer Name Role Phone Vinod DOLAN, Jaya Richards Primary Care Physician Encounter [facility] Date(s): 12/19/19 - 12/29/19 [facility] [address] [place] [address] [facility] Attending Physician: Admtr, [id number] Admitting Physician: Admtr, [...] 3 Refills, Maintenance, Tablet, Route to PharmacyElectronically, [id number], [facility]/pharmacy #[id number] Start Date: 05/26/16 [...] 2X1.5 SIZE B - BIOT () 1 [employer] Unknown KYLE:No Information Assigning Authority: FDA
--- OUTSIDE RECORDS SUMMARY | 2024-02-09 14:53 | XMS_ITS | Continuity of Care Document ---
Author Organization [facility] Andrea Ashish lt Address [address] [place] [address]- Care Team Providers Care Cable Testers Helper Name Role Phone Uri TAVERAS, Mercy Barrett Primary Care Physician Encounter [facility] Date(s): 02/09/23 - 02/16/23 [facility] Adult [address] [place] [address]- Attending Physician: Mercy Grewal NP Referring Physician: Ethan Bach MD Allergies, Adverse Reactions, Alerts Substance Reaction Severity Status tetracyclines rash Active Bactrim DS rash Active Contrast Dye angioedema, dyspnea Active Immunizations Given and Recorded Vaccine Date Status Refusal Reason pneumococcal 20-valent conjugate vaccine 02/09/23 Given [id number] 12y+ bivalent booster vax 07/10/22 Recorded influenza [...] Replace Required Details, Route to Pharmacy Electronically, [id number], 175, cm, 02/09/23 11:14:00 EDT, Height, 89.2, kg,... Start Date: 02/16/23 Status: Ordered atorvastatin 80 mg oral tablet 1 tablet = 80 mg, By Mouth, Daily, # 90 tablet, 3 Refills, Maintenance, 02/16/23 16:53:00 EDT, Tablet, [facility]/pharmacy #[id number], Partial fill upon patient request if the prescription is for a schedule II opioid drug., 175, cm, 02/09/23 11:14:00 EDT, Height,... Start Date: 02/16/23 Status: Ordered fenofibrate 145 mg oral tablet 1 tablet = 145 mg, By Mouth, Daily, # 90 tablet, 3 Refills, Maintenance, 02/16/23 16:53:00 EDT, Tablet, [facility]/pharmacy #[id number], 175, cm, 02/09/23 11:14:00 EDT, [...] Instructions Replace RequiredDetails, Route to Pharmacy Electronically, [facility]/phar... Start Date: 02/16/23 Status: Ordered insulin detemir 100 units/mL subcutaneous solution = 30 units, Subcutaneous Injection, Daily at bedtime, # 7.8 mL, 11 Refills, Maintenance, 02/16/23 17:03:00 EDT, Solution, [facility]/pharmacy #[id number], Partial fill upon patient request if the prescription is for a schedule II opioid drug., 175, cm, 02/09/23 11... Start Date: 02/16/23 Status: Ordered ketoconazole 2% topical shampoo Topically, Once, 0 Refills, Maintenance, 02/09/23 11:17:00 EDT, Partial fill upon patient request if the prescription is for a schedule II opioid drug. Start Date: 02/09/23 Status: Ordered lansoprazole 30 mg oral enteric coated capsule See Instructions, TAKE 1 CAPSULE BY MOUTH EVERY DAY, # 90 capsule, 3 Refills, Maintenance, 02/16/2310:39:00 EDT, [id number], 175, cm, 02/09/23 11:14:00 EDT, Height, 89.2, kg, 12/09/22 10:50:00 EST, Dry Weight Start Date: 02/16/23 Status: Ordered LORazepam 0.5 mg oral tablet 0.5 tablet = 0.25 mg, By Mouth, 2 times a day, # 60 tablet, 2 Refills, Acute 05/12/23 21:00:00 EDT,02/09/23 12:04:00 EDT, Tablet, [facility]/pharmacy #[id number], Partial fill upon patient request if the prescription is for a schedule II opioid drug., 175, cm, 05... Start Date: 02/09/23 Stop Date: 05/12/23 Status: Ordered losartan 100 mg oral tablet 1 tablet = 100 mg, By Mouth, Daily, # 90 tablet, 3 Refills, Maintenance, 02/16/23 16:52:00 EDT, Tablet, [facility]/pharmacy #[id number], 175, cm, 02/09/23 11:14:00 EDT, Height, 89.2, kg, 12/09/22 10:50:00 EST, Dry Weight Start Date: 02/16/23 Status: Ordered Nitrostat 0.4 mg sublingual tablet [...] 02/09/23 Stop Date: 03/11/23 Status: Ordered Pen [place], 32 G x 4 mm BD Ultra [...] days, # 2 mL, 11 Refills, Maintenance, 02/16/23 17:09:00 EDT, [id number], Partial fill upon patient request if the prescription is for a schedule II opioid drug., 0.5 mg Subcutaneous Infusion Every 7 da... Start Date: 02/16/23 Status: Ordered Vitamin B12 1000 mcg oral [...] to oldest [Reference Range]: 1 2 Height 175 cm (02/09/23 11:14 AM) 175 cm (02/09/23 11:01 AM) Weight 90.1 kg (02/09/23 11:01 AM) Oxygen Saturation [94-100 %] 100 % (02/09/23 11:01 AM) Pulse Rate [55-90 bpm] 69 bpm (02/09/23 11:01 AM) Body Mass Index [18.5-24.99 kg/m2] 29.42 kg/m2 *H* (02/09/23 11:01 AM) Blood Pressure [90-138/55-84 mm Hg] 146/ 78mm Hg *H* (02/09/23 11:14 AM) 142/84mm Hg *H* (02/09/23 11:01 AM) Blood pressure sites Arm, right (02/09/23 11:01 AM) Weight Obtained Via Standing scale (02/09/23 11:01 AM) Social History Social History Type Response [...] Personnel Name: Aurora Fairbanks RN Position: [facility] SN RN Member Role: Primary Care Nurse Name: Micaela Bridges RN Position: [facility] PCO RN Member Role: Primary Care Nurse Name: Mi Pelaez RN Position: [facility] RN Member Role: Primary Care Nurse Name: Angela Nogueira RN Position: [facility] RN Member Role: Primary Care Nurse Name: Uri TAVERAS, Mercy Barrett Position: [facility] PCO Associate Professional Member Role: PCP Address: Address: [address] [place] [address]- [place] Name: Cruz Hilliard RN Position: [facility] PCO RN Member Role: Primary Care Nurse Name: Jean Lucero MD Position: [facility] Cardiology MD Member Role: Lifetime Consulting Physician Address: Address: [address] [place] [address] [place] [address]- [place] Name: Chante Nielson RN Position: [facility] Hospital Therapist'S Assistant Member Role: Primary Care Nurse Care Team Related Persons Name: HEMALATHA SALAZAR Address: [address] [place] [address] Name: RONALD SALAZAR Address: home [address] [place] [address]
== END 2024-02-09 15:14 | disposition home or self-care (01) ==
LOC: HO.HKA 14:50
PROVIDERS: PCP Nurse Practitioner Family; Visit Provider Internal Medicine Nephrology
DX: N18.32 Chronic kidney disease, stage 3b (principal); I10 Essential (primary) hypertension
CPT/HCPCS: 99214

== ENCOUNTER → 2024-02-09 14:49 | Outpatient (BNVA) | payer MEDICARE, OTHER, SELFPAY | PROVIDERS: PCP Nurse Practitioner Family; Visit Provider Internal Medicine Nephrology | DX: I12.9 Hypertensive chronic kidney disease with stage 1 through stage 4 chronic kidney disease, or unspecified chronic kidney disease (principal); N18.32 Chronic kidney disease, stage 3b | CPT/HCPCS: 99212 ==

== ENCOUNTER 2024-02-24 09:29 | Day surgery (SDC) | payer MEDICARE, OTHER, SELFPAY ==
--- NOTE | ~2024-02-24 | CT_ITS ---
EXAMINATION: CT scan lumbar spine post myelography. INDICATION: Lumbar radiculopathy. COMPARISON: CT scan of lumbar spine on 07/30/2022 at [place]. TECHNIQUE: Multiple 3 mm axial images of the lumbar spine were obtained from lower T12 to S1 levels after intrathecal injection of 10 mL Isovue-M 200. Bone window and soft tissue window images were reconstructed. Coronal and Sagittal bone window images were also reconstructed from the axial image data. Dose reduction technique: One or more of the following individual dose optimization techniques were used including: Automated exposure control, mA and/or kV were adjusted according to patient size or iterative reconstruction. DLP: 1257 mGy-cm FINDINGS: There is mild superior T11 compression fracture. Large right anterior sharp T9-T12 bridging syndesmophytes are present. The visualized lumbar vertebrae are intact with normal alignment. There is optimal filling of the lumbosacral thecal sac with contrast. Conus medullaris is seen at L1-L2 junction. T12/L1: Bony structures are intact with normal alignment. Intervertebral disc height is normal, with vacuum disc phenomenon. Mild posterior disc protrusion effacing the anterior thecal sac, impinging the lower thoracic spinal cord is seen. Bilateral neuroforamina are patent. Bilateral apophyseal joints are intact with normal alignment. L-1/L-2: Bony structures are intact with normal alignment. Intervertebral disc height is normal. Bilateral neuroforamina are patent. Bilateral apophyseal joints are intact with normal alignment. L2/L3: Bony structures are intact with normal alignment. Intervertebral disc height is normal. Mild posterior disc protrusion effacing the anterior thecal sac is seen. Bilateral neuroforamina are patent. Bilateral apophyseal joints are intact with normal alignment. L3/L4: Bony structures are intact with normal alignment. Intervertebral disc height is moderately decreased, with vacuum disc phenomenon. Moderate posterior disc protrusion effacing the anterior thecal sac is seen. Bilateral neuroforamina are patent. Bilateral apophyseal joints are intact with normal alignment. L4/L5: Bony structures are intact with normal alignment. Intervertebral disc height is normal. Bilateral neuroforamina are patent. Bilateral apophyseal joints are intact with normal alignment. Bilateral apophyseal joints show loss of joint space, sclerosis, facet hypertrophy and osteophytosis. L5/S1: Bony structures are intact with normal alignment. Intervertebral disc height is mildly decreased, with vacuum disc phenomenon. Moderate posterior disc protrusion with calcified rim is seen. Bilateral neuroforamina are patent. Bilateral apophyseal joints are intact with normal alignment. Bilateral apophyseal joints show loss of joint space, sclerosis, facet hypertrophy and osteophytosis. Calcified fusiform infrarenal abdominal aortic aneurysm is seen, measuring 4.5 cm in AP diameter and 3.8 cm in width (previously 4.0 cm). Left common iliac artery metallic stent is present. CT/CT lumbar post myelography IMPRESSION: 1. Mild superior T11 compression fracture, not included in the [id number] on previous CT scan. 2. Large right anterior sharp T9-T12 bridging syndesmophytes. 3. Mild posterior disc protrusion at T12-L1 effacing the anterior thecal sac, impinging the lower thoracic spinal cord. 4. Interval progression of Mild posterior disc protrusion at L2-L3 effacing the anterior thecal sac. 5. Interval development of Moderate posterior disc protrusion at L3-L4 effacing the anterior thecal sac. 6. Persistent Moderate posterior disc protrusion at L5-S1 with calcified rim. 7. Bilateral L4-L5 and L5-S1 facet arthropathy. 8. Interval development of advanced T12-L1, L3-L4, unchanged advanced L5-S1 degenerative lumbar disc disease. 9. Interval increase in size of the Calcified fusiform infrarenal abdominal aortic aneurysm measuring 4.5 cm in AP diameter and 3.8 cm in width. Left common iliac artery metallic stent is present. Recommend followup every 6 months and vascular specialist consultation. Reference: J Am Roscoe Radiol 2013; 10 (10): 789-794.
--- NOTE | ~2024-02-24 | FL_ITS ---
FLUOROSCOPIC GUIDED INJECTION FOR LUMBAR CT MYELOGRAM INDICATION: Bilateral lower extremity and radiculopathy. 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 Risks and benefits and possible complications were discussed with the patient and the consent form was signed. The patient has a known allergy to iodinated contrast agents, which he received the recommended premedication protocol per ACR guidelines. Patient was placed prone on the fluoroscopy table. The back was prepped and draped in routine sterile fashion. Alcohol wipes was used as a skin antiseptic. Utilizing fluoroscopic guidance, the L2-3 level was accessed with a 22 gauge quinkie spinal needle and clear CSF fluid obtained. Subsequently 10 mL of Isovue-M 200 was then injected through the needle and contrast was observed entering the thecal sac. The needle was removed without immediate complications. The patient was then transferred to CT for post myelographic imaging. A left iliac artery stent is incidentally noted. Eggshell calcification from known AAA is noted to the left of L2 and L3. Bilateral laminectomies likely present at L5. Total fluoroscopy time: 1.1 minutes FL/FL myelogram spine lumbosacral IMPRESSION: -Successful fluoroscopic guided intrathecal instillation of Isovue-M [address] myelographic imaging. No immediate complications. -Patient was premedicated per ACR guidelines for contrast allergy. This procedure was performed by Sergio Mejia PA-C and supervised by Dr. Low.
[2024-02-24 10:16] VITALS: BMI 29.7
[2024-02-24 10:25] LABS: MANUAL DIFF FLAG NO
[2024-02-24 10:37] LABS: INTERNATIONAL NORM RATIO 0.9 (0.9-1.1); Prothrombin Time 11.1 SEC (11.1-13.3)
[2024-02-24 10:39] LABS: Basophils Percent Auto 0.3 % (0-2); Eosinophils Percent Auto 0.2 % (0-4); Hematocrit 37.6 % (42.0-52.0); Hemoglobin 12.7 g/dl (14.0-18.0); Imm Gran Abs Auto 0.03 X10*3/uL (0.00-0.03); Imm Gran Pct Auto 0.5 % (0.0-0.4); Lymphocytes Absolute Auto 0.9 X10*3/uL (1.2-4.9); Lymphocytes Percent Auto 14.4 % (20-40); Mean Corpuscular HGB Conc 33.8 g/dl (31.0-36.0); Mean Corpuscular Hemoglobin 35.5 pg (27.0-33.0); Mean Platelet Volume 9.9 fL (9.4-12.4); Monocytes Absolute Auto 0.2 X10*3/uL (0.1-1.2); Monocytes Percent Auto 3.5 % (2-11); Neutrophils Absolute Auto 5.2 x10*3/uL (2.0-8.3); Neutrophils Percent Auto 81.1 % (45-73); Platelet Count 208 X10*3/uL (160-400); Red Blood Count 3.58 X10*6/uL (4.60-5.80); Red Cell Distribution Width 14.9 % (11.0-16.0); White Blood Count 6.4 X10*3/uL (4.8-10.8)
[2024-02-24 10:40] LABS: Partial Thromboplastin Time 54.5 SEC (26.0-36.8)
[2024-02-24 10:54] LABS: Glucose, Whole Blood 255 mg/dL (60-115)
[2024-02-24] MEDS: diphenhydrAMINE HCL 50 MG/ML VIAL IVPUSH (11:08)
[2024-02-24 12:44] VITALS: BP 155/61; PULSE 69; RESP 18; TEMP 36.4; O2SAT 97
[2024-02-24 12:59] VITALS: BP 155/61; PULSE 70; RESP 18; O2SAT 97
[2024-02-24 13:29] VITALS: BP 153/60; PULSE 70; RESP 16; TEMP 36.1; O2SAT 97
== END 2024-02-24 13:50 | disposition home or self-care (01) ==
PROVIDERS: Physician Assistant Surgical; PCP Nurse Practitioner Family; Visit Provider Physician Assistant
PROC: 009U3ZZ Drainage of Spinal Canal, Percutaneous Approach (ICD-10-PCS; CPT 62270; principal; 2024-02-24 11:00)
DX: M54.16 Radiculopathy, lumbar region (principal); M54.50 Low back pain, unspecified; C14.0 Malignant neoplasm of pharynx, unspecified; E11.22 Type 2 diabetes mellitus with diabetic chronic kidney disease; I12.9 Hypertensive chronic kidney disease with stage 1 through stage 4 chronic kidney disease, or unspecified chronic kidney disease; N18.30 Chronic kidney disease, stage 3 unspecified; E78.5 Hyperlipidemia, unspecified; E66.9 Obesity, unspecified; I25.2 Old myocardial infarction; Z87.891 Personal history of nicotine dependence; Z95.0 Presence of cardiac pacemaker; Z79.82 Long term (current) use of aspirin; Z79.02 Long term (current) use of antithrombotics/antiplatelets; Z79.899 Other long term (current) drug therapy; Z79.4 Long term (current) use of insulin
CPT/HCPCS: 36415; 62304; 82947; 85025; 85610; 85730; J1200; Q9967

== ENCOUNTER → 2024-02-24 11:00 | Outpatient (BNV) | payer MEDICARE, OTHER, SELFPAY | PROVIDERS: PCP Nurse Practitioner Family; Visit Provider Physician Assistant Surgical | DX: M54.16 Radiculopathy, lumbar region (principal) | CPT/HCPCS: 62304 ==

== ENCOUNTER 2024-04-10 15:00 | Outpatient (AMB) | payer MEDICARE, OTHER, SELFPAY ==
--- NOTE | 2024-04-10 15:02 | MHC.OFFVIS ---
Vital Signs 04/10/24 15:06 Height 5 ft 9 in Weight 198 lb 6.656 oz BMI 29.3 BP 132/64 Blood Pressure Location Rt brachial Position Sitting Pulse 63 Pulse Source Pulse Oximeter Intake Visit Reasons: Type 2 DM-lvm Intake Note: New patient present today for Diabetes Mellitus, referred by PCP. Last Diabetic Eye exam: 2023 Last Podiatry Visit: Has an appt next week, Dr Sharif @[place] Random Glucose: 186mg/dl HgA1C: 6.2%, 03/27/2024, PCP Business Performance Analyst Required: No Accompanied by: Self / Same As Patient Allergies Iodinated Contrast Media [IV Dye, Iodine Containing] Allergy (Severe, Verified 04/10/24 15:02) SWELLING sulfamethoxazole [From Bactrim] Allergy (Severe, Verified 04/10/24 15:02) SWELLING RASH tetracycline [Tetracycline] Allergy (Severe, Verified 04/10/24 15:02) SWELLING , RASH trimethoprim [From Bactrim] Allergy (Severe, Verified 04/10/24 15:02) SWELLING RASH Sulfa (Sulfonamide Antibiotics) Allergy (Unknown, Verified 04/10/24 15:02) hives IVP dye Allergy (Unknown, Uncoded 04/10/24 15:02) Anaphylaxis Renée Dry Allergy (Unknown, Uncoded 04/10/24 15:02) rash tetracycline Allergy (Unknown, Uncoded 04/10/24 15:02) hives Medication List - Last Reconciled 04/10/24 by Bibi Cruz PA-C aspirin 81 mg PO DAILY atenolol 50 mg PO DAILY atorvastatin 80 mg PO BEDTIME blood sugar diagnostic (FreeStyle Lite Strips) 1 strip miscellaneous BID cyanocobalamin (vitamin B-12) ER 1,000 mcg PO DAILY fenofibrate nanocrystallized (Tricor) 145 mg PO DAILY flash glucose scanning reader (IndoorAtlasStyle Vivek 14 Day [place]) As directed flash glucose sensor (FreeStyle Vivek 14 Day Sensor kit) USE DIRECTED AND CHANGE EVERY 14 DAYS, 90 days furosemide 20 mg PO DAILY insulin degludec (Tresiba FlexTouch U-200 insulin) units subcut insulin detemir U-100 30 units (0.3 mL) subcut BEDTIME lansoprazole 30 mg PO DAILY lorazepam 0.5 mg PO BEDTIME PRN methylprednisolone 64 mg orally Take 1 tab 12 hours before Myelogram and 1 tab 2 hours before Myelogram; nitroglycerin 0.4 mg sublingual Q5M PRN pen needle, diabetic (BD Ultra-Fine Micro Pen Needle) As directed; twice daily semaglutide (Ozempic) 0.25 mg subcut QWEEK HPI HPI Type 2 DM-lvm: Details: Patient is an 83-year-old male with a significant past medical history of stage 3b kidney disease, diabetic neuropathy, type 2 diabetes, hypertension, PAD and hyperlipidemia presenting today for a diabetic follow-up. He was last seen endocrinology in 2021 Endo: He is currently on tresiba 28 units, Ozempic 0.5 mg weekly. He states that his diabetes very well he not have any concerns about this other than his painful. Use a longstanding history of diabetic neuropathy. He states that when he is walking around and feels like he is walking on nails. He also has a lot of pain in his lower legs and feet when walking short distances. He has to stop and rest with this. He has seen his vascular surgeon and states that they are discussing putting in a stent. His last like is worse than his right. He is not on anything for pain. In the past he was on Lyrica but found this on helpful. He has tried gabapentin but cannot recall if it worked. He states he is so miserable and his PCP is leaving the practice. cgm-usage is at the 55%, average glucose 123, variability 25.3%. He is within target 93% time and 7% high. No lows. Vasc: He follows with vascular surgery from [place] and last had bypass 2009. He does have a lot of pain with walking and was last seen 6-8 months ago. CV: Blood pressure is in the office is 132/64. He is on atenolol 50 mg, furosemide 20 mg. Cholesterol is controlled with atorvastatin 80 mg and Tricor 145 mg. Nephro: Follows with Dr. Hill. Discussed possible jardiance and he declines. [facility] Medical History (Updated 04/10/24 @ 15:10 by Bibi Cruz PA-C) Surgery, elective Obesity due to excess calories Hx of aneurysm Hx of myocardial infarction Carpal tunnel syndrome Throat cancer Ischemic colitis Pacemaker Diverticulitis BPH (benign prostatic hyperplasia) Type 2 diabetes mellitus with chronic kidney disease Chronic kidney disease, stage 3 Type 2 diabetes mellitus with diabetic polyneuropathy Essential hypertension Hyperlipidemia LDL goal <70 Surgical History History of back surgery H/O neck surgery History of prostate surgery Hx of angioplasty Hx of hernia repair Hx of tonsillectomy Family History Father Prostate cancer Mother Breast cancer Diabetes Social History Household Members: Spouse Patient Tobacco Use Status: Former Tobacco user Tobacco use type: Cigarette Cigarettes Per Day: 10 Years Smoked: 40 Physical Exam Vital Signs: Last Vital Signs Pulse 63 04/10/24 15:06 BP 132/64 04/10/24 15:06 BMI result Body Mass Index 29.3 Const Orientation/consciousness: patient oriented x3 Neck Neck: Yes no lymphadenopathy Thyroid: Thyroid normal Carotids: no bruits Resp Auscultation: clear to auscultation bilaterally Cardio Rate: regular rate Rhythm: regular rhythm Heart sounds: S1 normal heart sound present and S2 normal heart sound present Peripheral pulses: dorsalis pedis present Neuro General: patient oriented x3, gait normal and no focal motor deficits Extrem Other: Monofilament sensation intact bilaterally. Vibratory sensation intact bilaterally. Skin intact. General: Yes normal to inspection Results Reviewed Results Reviewed: Laboratory Tests 01/20/22 10/20/22 03/02/23 11:43 09:07 08:37 Sodium Potassium Chloride Carbon Dioxide Anion Gap BUN Creatinine 1.99 H 2.05 H Estimated GFR 32 31 POC Glucose Hgb A1c (Clinic) 7.0 H Calcium 07/05/23 12/27/23 02/24/24 08:16 08:38 10:50 Sodium 144 Potassium 4.2 Chloride 106 Carbon Dioxide 29 Anion Gap 13 BUN 37 H Creatinine 2.00 H 2.33 H Estimated GFR 32 27 POC Glucose 255 H Hgb A1c (Clinic) Calcium 9.7 Assessment & Plan Assessment & Plan (1) Type 2 diabetes mellitus with diabetic polyneuropathy: Code(s): E11.42 - Type 2 diabetes mellitus with diabetic polyneuropathy Category: Medical Qualifiers: Diabetes mellitus intermediate insulin use: with ferry terminal agent use Qualified Code(s): E11.42 - Type 2 diabetes mellitus with diabetic polyneuropathy; Z79.4 - residential (current) use of insulin Plan: Currently uncontrolled. Will try gabapentin. discussed risks/benefits and adverse effects. (2) Type 2 diabetes mellitus with chronic kidney disease: Code(s): E11.22 - Type 2 diabetes mellitus with diabetic chronic kidney disease Category: Medical Qualifiers: Chronic kidney disease stage: stage 4 (severe) Diabetes mellitus ferry terminal agent insulin use: with intermediate use Qualified Code(s): E11.22 - Type 2 diabetes mellitus with diabetic chronic kidney disease; N18.4 - Chronic kidney disease, stage 4 (severe); Z79.4 - residential (current) use of insulin Plan: Following closely with Nephrology. declines jardiance. (3) Essential hypertension: Code(s): I10 - Essential (primary) hypertension Category: Medical Plan: wnl (4) Hyperlipidemia LDL goal <70: Code(s): E78.5 - Hyperlipidemia, unspecified Category: Medical Plan: Continue current regimen. No myalgias. Overdue for lipids. Ordered today. Will follow up pending test results. Orders: Orders AMB Hemoglobin A1c Today E11.9 - Type 2 diabetes mellitus without complications Lipid Panel Today E11.22 - Type 2 diabetes mellitus with diabetic chronic kidney disease, E11.42 - Type 2 diabetes mellitus with diabetic polyneuropathy, E78.5 - Hyperlipidemia, unspecified, I10 - Essential (primary) hypertension, N18.4 - Chronic kidney disease, stage 4 (severe), Z79.4 - equipment operator intermodal yard (current) use of insulin Hemoglobin A1c Today E11.22 - Type 2 diabetes mellitus with diabetic chronic kidney disease, E11.42 - Type 2 diabetes mellitus with diabetic polyneuropathy, E78.5 - Hyperlipidemia, unspecified, I10 - Essential (primary) hypertension, N18.4 - Chronic kidney disease, stage 4 (severe), Z79.4 - equipment operator intermodal yard (current) use of insulin Microalbumin, Random (w Creat) Today E11.22 - Type 2 diabetes mellitus with diabetic chronic kidney disease, E11.42 - Type 2 diabetes mellitus with diabetic polyneuropathy, E78.5 - Hyperlipidemia, unspecified, I10 - Essential (primary) hypertension, N18.4 - Chronic kidney disease, stage 4 (severe), Z79.4 - residential (current) use of insulin Medications: New insulin degludec (Tresiba FlexTouch U-200 insulin) 28 units (0.14 mL) subcut .nightly 9 mL 6RF semaglutide (Ozempic) 0.5 mg (0.736 mL) subcut QWEEK 3 mL 6RF gabapentin 300 mg PO BID 60 caps 0RF gabapentin 300 mg PO TID 90 caps 5RF Changed From semaglutide (Ozempic) 0.25 mg subcut QWEEK E11.22 - Type 2 diabetes mellitus with diabetic chronic kidney disease, N18.30 - Chronic kidney disease, stage 3 unspecified, Z79.4 - equipment operator intermodal yard (current) use of insulin To semaglutide (Ozempic) 0.5 mg subcut QWEEK E11. - Type 2 diabetes mellitus with diabetic chronic kidney disease, N18.30 - Chronic kidney disease, stage 3 unspecified, Z79.4 - equipment operator intermodal yard (current) use of insulin Discontinued insulin detemir U-100 Discontinued Reason: Patient Completed Course 30 units (0.3 mL) subcut BEDTIME 15 mL 5RF . - Type 2 diabetes mellitus with diabetic chronic kidney disease Coding Level of Care Code Est Pt Level 4 (60685) Complex EM visit Add On G2211 Diagnoses Type 2 diabetes mellitus with diabetic polyneuropathy, with long-term current use of insulin E11.42; Z79.4 Diabetes mellitus intermediate insulin use: with ferry terminal agent use Type 2 diabetes mellitus with stage 4 chronic kidney disease, with long-term current use of insulin E11.22; N18.4; Z79.4 Chronic kidney disease stage: stage 4 (severe) Diabetes mellitus ferry terminal agent insulin use: with ferry terminal agent use Essential hypertension I10 Hyperlipidemia LDL goal <70 E78.5
[2024-04-10 15:06] VITALS: BP 132/64; PULSE 63; BMI 29.3
[2024-04-10 15:21] LABS: Glucose, Whole Blood 186 mg/dL (60-115)
== END 2024-04-10 15:50 | disposition home or self-care (01) ==
PROVIDERS: PCP Nurse Practitioner Family; Visit Provider Physician Assistant
DX: E11.42 Type 2 diabetes mellitus with diabetic polyneuropathy (principal); Z79.4 Long term (current) use of insulin; E11.22 Type 2 diabetes mellitus with diabetic chronic kidney disease; N18.4 Chronic kidney disease, stage 4 (severe); I12.9 Hypertensive chronic kidney disease with stage 1 through stage 4 chronic kidney disease, or unspecified chronic kidney disease; E78.5 Hyperlipidemia, unspecified
CPT/HCPCS: 99214; G2211

== ENCOUNTER → 2024-04-10 15:00 | Outpatient (BNVA) | payer MEDICARE, OTHER, SELFPAY | PROVIDERS: PCP Nurse Practitioner Family; Visit Provider Physician Assistant | DX: E11.42 Type 2 diabetes mellitus with diabetic polyneuropathy (principal); E11.22 Type 2 diabetes mellitus with diabetic chronic kidney disease; I12.9 Hypertensive chronic kidney disease with stage 1 through stage 4 chronic kidney disease, or unspecified chronic kidney disease; N18.4 Chronic kidney disease, stage 4 (severe); E78.5 Hyperlipidemia, unspecified; Z79.4 Long term (current) use of insulin | CPT/HCPCS: 82947; 99212 ==

== ENCOUNTER 2024-04-20 14:38 | Outpatient (AMB) | payer MEDICARE, OTHER, SELFPAY ==
--- NOTE | 2024-04-20 15:11 | HO.SPINEOV ---
Intake Visit Reasons: F/u Lumbar Spine CT Intake Note: Mr. Omalley is here today to F/u on CT of Lumbar Spine. Gi Physician Required: No Allergies Iodinated Contrast Media [IV Dye, Iodine Containing] Allergy (Severe, Verified 04/20/24 15:25) SWELLING sulfamethoxazole [From Bactrim] Allergy (Severe, Verified 04/20/24 15:25) SWELLING RASH tetracycline [Tetracycline] Allergy (Severe, Verified 04/20/24 15:25) SWELLING , RASH trimethoprim [From Bactrim] Allergy (Severe, Verified 04/20/24 15:25) SWELLING RASH Sulfa (Sulfonamide Antibiotics) Allergy (Unknown, Verified 04/20/24 15:25) hives IVP dye Allergy (Unknown, Uncoded 04/10/24 15:02) Anaphylaxis Renée Dry Allergy (Unknown, Uncoded 04/10/24 15:02) rash tetracycline Allergy (Unknown, Uncoded 04/10/24 15:02) hives Assessment & Plan Assessment & Plan (1) Lumbar radiculopathy: Code(s): M54.16 - Radiculopathy, lumbar region Category: Medical Plan Mr Omalley is back in follow-up to review his CT myelogram done for left leg pain. I do not see any evidence of nerve compression, the radiologist also does not see anything compressing the nerve that would explain pain down the left leg. The patient tells me today that he found that he now has 3 blockages in his left leg may require major surgery to fix this. This is probably the source of the left leg pain. At this time I do not have any surgery to offer him. I suspect once he gets the leg revascularized he will likely see improvement in his walking. He can follow up on an as-needed basis with us. Total amount of time spent in this visit was 20 minutes in discussion of symptoms, lumbar CT myelo imaging results and subsequent plan of care Bharathi Parrish MD,PhD [facility] Coding Level of Care Code Est Pt Level 3 (13627) Diagnoses Lumbar radiculopathy M54.16
== END 2024-04-20 15:38 | disposition home or self-care (01) ==
PROVIDERS: PCP Nurse Practitioner Family; Visit Provider Physician Assistant
DX: M54.16 Radiculopathy, lumbar region (principal)
CPT/HCPCS: 99213

== ENCOUNTER → 2024-04-20 14:38 | Outpatient (BNVA) | payer MEDICARE, OTHER, SELFPAY | PROVIDERS: PCP Nurse Practitioner Family; Visit Provider Physician Assistant | DX: M54.16 Radiculopathy, lumbar region (principal) | CPT/HCPCS: 99212 ==

== ENCOUNTER 2024-05-08 11:06 | Outpatient (REF) | payer MEDICARE, OTHER, SELFPAY ==
[2024-05-08 13:52] LABS: Anion Gap 14 (12-20); Blood Urea Nitrogen 35 mg/dL (9-16); Carbon Dioxide 25 mmol/L (22-29); Chloride 109 mmol/L (96-108); Estimated Glomerular Filt Rate 29; Potassium 4.2 mmol/L (3.3-5.1); Sodium 144 mmol/L (135-145)
== END 2024-05-08 11:07 | disposition home or self-care (01) ==
LOC: HO.HMGCLDS 11:06
PROVIDERS: PCP Nurse Practitioner Family; Visit Provider Internal Medicine Nephrology
DX: N18.32 Chronic kidney disease, stage 3b (principal)
CPT/HCPCS: 36415; 80051; 82565; 84520

== ENCOUNTER 2024-05-10 10:39 | Outpatient (AMB) | payer MEDICARE, OTHER, SELFPAY ==
--- NOTE | 2024-05-10 10:44 | HO.NEPHOV_ITS ---
Vital Signs 05/10/24 10:45 Height 5 ft 9 in Weight 205 lb 8 oz BMI 30.3 BP 128/70 Blood Pressure Location Rt brachial Position Sitting Pulse 69 Pulse Source Pulse Oximeter Pulse Oximetry (%) 96 Oxygen Delivery Method Room Air Intake Visit Reasons: CKD/ 3 MO FU/ Conf Packing Shed Supervisor Required: No Accompanied by: Spouse Allergies Iodinated Contrast Media [IV Dye, Iodine Containing] Allergy (Severe, Verified 05/10/24 10:47) SWELLING sulfamethoxazole [From Bactrim] Allergy (Severe, Verified 05/10/24 10:47) SWELLING RASH tetracycline [Tetracycline] Allergy (Severe, Verified 05/10/24 10:47) SWELLING , RASH trimethoprim [From Bactrim] Allergy (Severe, Verified 05/10/24 10:47) SWELLING RASH Sulfa (Sulfonamide Antibiotics) Allergy (Unknown, Verified 05/10/24 10:47) hives IVP dye Allergy (Unknown, Uncoded 04/10/24 15:02) Anaphylaxis Renée Dry Allergy (Unknown, Uncoded 04/10/24 15:02) rash tetracycline Allergy (Unknown, Uncoded 04/10/24 15:02) hives HPI Comments Details: Mark Anthony was seen in the office in follow-up of his chronic kidney disease and hypertension. He is known to have cardiomyopathy. He does not have any worsening pedal edema, chest pain, shortness of breath, proximal nocturnal dyspnea or orthopnea. He has not had any recent medication changes.He has been having PAD pain in the left LE. He has seen Dr Moncada but seeking a second opinion. He avoids nonsteroidal anti-inflammatories. His renal function is stable. I did not make any medication changes [facility] Medical History (Updated 04/10/24 @ 15:10 by Bibi Cruz PA-C) Surgery, elective Obesity due to excess calories Hx of aneurysm Hx of myocardial infarction Carpal tunnel syndrome Throat cancer Ischemic colitis Pacemaker Diverticulitis BPH (benign prostatic hyperplasia) Type 2 diabetes mellitus with chronic kidney disease Chronic kidney disease, stage 3 Type 2 diabetes mellitus with diabetic polyneuropathy Essential hypertension Hyperlipidemia LDL goal <70 Surgical History History of back surgery H/O neck surgery History of prostate surgery Hx of angioplasty Hx of hernia repair Hx of tonsillectomy Family History Father Prostate cancer Mother Breast cancer Diabetes Social History Household Members: Spouse Patient Tobacco Use Status: Former Tobacco user Tobacco use type: Cigarette Cigarettes Per Day: 10 Years Smoked: 40 Physical Exam Vital Signs: Last Vital Signs Pulse 69 05/10/24 10:45 BP 146/60 H 05/10/24 10:45 Pulse Ox 96 05/10/24 10:45 Oxygen Delivery Method Room Air 05/10/24 10:45 BMI result Body Mass Index 30.3 Results Reviewed Nephrology Results: Hgb 12.7 g/dl (14.0-18.0) L 02/24/24 WBC 6.4 X10*3/uL (4.8-10.8) 02/24/24 Plt Count 208 X10*3/uL (160-400) 02/24/24 Sodium 144 mmol/L (135-145) 05/08/24 Potassium 4.2 mmol/L (3.3-5.1) 05/08/24 Chloride 109 mmol/L (96-108) H 05/08/24 Carbon Dioxide 25 mmol/L (22-29) 05/08/24 BUN 35 mg/dL (9-16) H 05/08/24 Creatinine 2.20 mg/dL (0.5-1.4) H 05/08/24 Calcium 9.7 mg/dL (8.4-10.2) 12/27/23 Assessment & Plan Assessment & Plan (1) CKD stage G3b/A1, GFR 30-44 and albumin creatinine ratio <30 mg/g: Code(s): N18.32 - Chronic kidney disease, stage 3b Category: Medical (2) Essential hypertension: Code(s): I10 - Essential (primary) hypertension Category: Medical Plan 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 He is hypertensive and diabetic with cardiomyopathy. His volume status is fair. He does not have any symptoms of hypervolemia. His blood pressure has been at goal. He can continue lasix 20 mg daily. He is a great candidate for [employer]. His twenty-four urine collection for creatinine clearance was 36 mls/minute. He is avoiding nonsteroidal anti- inflammatory medications. He would benefit from a bit of weight loss. He is on Ozempic. He is looking for a second opinion for his PAD. I did not make any other medication changes today but rather ordered follow-up blood work. All his questions were answered. Follow-up appointment given. Orders: Orders Electrolytes Today N18.32 - Chronic kidney disease, stage 3b Creatinine Today N18.32 - Chronic kidney disease, stage 3b Blood Urea Nitrogen Today N18.32 - Chronic kidney disease, stage 3b Coding Level of Care Code Est Pt Level 4 (87005) Diagnoses CKD stage G3b/A1, GFR 30-44 and albumin creatinine ratio <30 mg/g N18.32 Essential hypertension I10
[2024-05-10 10:45] VITALS: BP 128/70; PULSE 69; O2SAT 96; BMI 30.3
== END 2024-05-10 11:29 | disposition home or self-care (01) ==
PROVIDERS: PCP Nurse Practitioner Family; Visit Provider Internal Medicine Nephrology
DX: N18.32 Chronic kidney disease, stage 3b (principal); I10 Essential (primary) hypertension
CPT/HCPCS: 99214

== ENCOUNTER → 2024-05-10 10:39 | Outpatient (BNVA) | payer MEDICARE, OTHER, SELFPAY | PROVIDERS: PCP Nurse Practitioner Family; Visit Provider Internal Medicine Nephrology | DX: I12.9 Hypertensive chronic kidney disease with stage 1 through stage 4 chronic kidney disease, or unspecified chronic kidney disease (principal); N18.32 Chronic kidney disease, stage 3b | CPT/HCPCS: 99212 ==

== ENCOUNTER 2024-07-10 12:53 | Outpatient (AMB) | payer MEDICARE, OTHER, SELFPAY ==
--- NOTE | 2024-07-10 12:50 | A.OFFVIS_ITS ---
Vital Signs 07/10/24 12:58 Height 5 ft 9 in Weight 194 lb 0.108 oz BMI 28.6 BP 118/60 Blood Pressure Location Rt brachial Position Sitting Pulse 70 Pulse Source Pulse Oximeter Intake Visit Reasons: DM/CONFIRMED Intake Note: Patient presents today for a follow-up on Type 2 Diabetes Mellitus: Last Diabetic eye exam was on: 2023 Last Podiatry exam was on: 04/2024, Dr Sharif @[place] Most recent HbA1c: 6.2%, 07/10/2024 Random Glucose- 120 mg/dL, Today Nutrition Services Manager Required: No Accompanied by: Self / Same As Patient Allergies Iodinated Contrast Media [IV Dye, Iodine Containing] Allergy (Severe, Verified 07/10/24 12:57) SWELLING sulfamethoxazole [From Bactrim] Allergy (Severe, Verified 07/10/24 12:57) SWELLING RASH tetracycline [Tetracycline] Allergy (Severe, Verified 07/10/24 12:57) SWELLING , RASH trimethoprim [From Bactrim] Allergy (Severe, Verified 07/10/24 12:57) SWELLING RASH Sulfa (Sulfonamide Antibiotics) Allergy (Unknown, Verified 07/10/24 12:57) hives IVP dye Allergy (Unknown, Uncoded 07/10/24 12:57) Anaphylaxis Renée Dry Allergy (Unknown, Uncoded 07/10/24 12:57) rash tetracycline Allergy (Unknown, Uncoded 07/10/24 12:57) hives Medication List - Last Reconciled 07/10/24 by Bibi Cruz PA-C aspirin 81 mg PO DAILY atenolol 50 mg PO DAILY atorvastatin 80 mg PO BEDTIME blood sugar diagnostic (FreeStyle Lite Strips) 1 strip miscellaneous BID cyanocobalamin (vitamin B-12) ER 1,000 mcg PO DAILY fenofibrate nanocrystallized (Tricor) 145 mg PO DAILY flash glucose scanning reader ([place] MedicalStyle Vivek 14 Day [place]) As directed flash glucose sensor (FreeStyle Vivek 14 Day Sensor kit) USE DIRECTED AND CHANGE EVERY 14 DAYS, 90 days foot care products Wear diabetic shoes daily As directed furosemide 20 mg PO DAILY insulin degludec (Tresiba FlexTouch U-200 insulin) 28 units (0.14 mL) subcut .n ightly lansoprazole 30 mg PO DAILY lorazepam 0.5 mg PO BEDTIME PRN methylprednisolone 64 mg orally Take 1 tab 12 hours before Myelogram and 1 tab 2 hours before Myelogram; nitroglycerin 0.4 mg sublingual Q5M PRN pen needle, diabetic (BD Ultra-Fine Micro Pen Needle) As directed; twice daily semaglutide (Ozempic) 0.5 mg subcut QWEEK HPI HPI DM/CONFIRMED: Details: Patient is an 83-year-old male with a significant past medical history of stage 3b kidney disease, diabetic neuropathy, type 2 diabetes, hypertension, PAD and hyperlipidemia presenting today for a diabetic follow-up. -He forgot to get labs done prior to today's exam. Endo: His last A1c today is 6.2. He is currently on tresiba 28 units, Ozempic 0.5 mg weekly. -Since our last visit he did see vascular surgery and had bypass on his left leg and is feeling a lot better. He is following with pain management and was recently started on nucynta and oxycodone. He states that this is not necessarily helping neuropathy but it is helping his overall pain. He feels a lot better since his bypass surgery and since starting pain management. -at our last visit I started him on gabapentin which was then stopped when started the opioids. He also felt that this was ineffective. cgm-usage is at the 53%, average glucose 121, variability 30%. He is within target 90% time and 9% high. 1% hypoglycemic. -he states he was only low following his surgery because he did much of appetite. Around that time he did reduce his Tresiba to 26 units but he is now back up to 28 units. Vasc: He follows with vascular surgery from [facility]. CV: Blood pressure is in the office is 118/60. He is on atenolol 50 mg, furosemide 20 mg. Cholesterol is controlled with atorvastatin 80 mg and Tricor 145 mg. Nephro: Follows with Dr. Hill. Discussed possible jardiance and he declines. [facility] Medical History (Updated 07/10/24 @ 13:25 by LORENZO Arredondo) Surgery, elective Obesity due to excess calories Hx of aneurysm Hx of myocardial infarction Carpal tunnel syndrome Throat cancer Ischemic colitis Pacemaker Diverticulitis BPH (benign prostatic hyperplasia) Type 2 diabetes mellitus with chronic kidney disease Chronic kidney disease, stage 3 Type 2 diabetes mellitus with diabetic polyneuropathy Essential hypertension Hyperlipidemia LDL goal <70 Surgical History History of back surgery H/O neck surgery History of prostate surgery Hx of angioplasty Hx of hernia repair Hx of tonsillectomy Family History Father Prostate cancer Mother Breast cancer Diabetes Social History Household Members: Spouse Patient Tobacco Use Status: Former Tobacco user Tobacco use type: Cigarette Cigarettes Per Day: 10 Years Smoked: 40 Physical Exam Vital Signs: Last Vital Signs Pulse 70 07/10/24 12:58 BP 118/60 07/10/24 12:58 BMI result Body Mass Index 28.6 Const Orientation/consciousness: patient oriented x3 Neck Neck: Yes no lymphadenopathy Thyroid: Thyroid normal Resp Auscultation: clear to auscultation bilaterally Cardio Rate: regular rate Rhythm: regular rhythm Heart sounds: S1 normal heart sound present and S2 normal heart sound present Peripheral pulses: dorsalis pedis present Neuro General: patient oriented x3, gait normal and no focal motor deficits Extrem Other: Skin intact General: Yes normal to inspection Office Procedures Glucose Monitoring Details Details: See [facility] [address] - Glucose monitoring, continuous-physician I&R Procedure code (CPT) selection complete Results AMB Hemoglobin A1c AMB Hemoglobin A1c 6.2 % Last Edit by LORENZO Arredondo on 07/10/24 13:16 Results Reviewed Results Reviewed: Laboratory Last Values Glucose (Clinic) 120 mg/dL (60-115) H 07/10/24 13:05 Hgb A1c (Clinic) 6.2 % (4.0-6.0) H 07/10/24 13:07 Laboratory Tests 05/08/24 11:41 Creatinine 2.20 H Estimated GFR 29 Laboratory Tests 01/20/22 04/10/24 05/08/24 11:43 15:18 11:41 Sodium 144 Potassium 4.2 Chloride 109 H Carbon Dioxide 25 Anion Gap 14 BUN 35 H Glucose (Clinic) 186 H Hgb A1c (Clinic) 7.0 H Assessment & Plan Assessment & Plan (1) Type 2 diabetes mellitus with diabetic polyneuropathy: Code(s): E11.42 - Type 2 diabetes mellitus with diabetic polyneuropathy Category: Medical Qualifiers: Diabetes mellitus longterm insulin use: with longterm use Qualified Code(s): E11.42 - Type 2 diabetes mellitus with diabetic polyneuropathy; Z79.4 - terminal manager (current) use of insulin Plan: Well-controlled. Continue current regimen. Follow up in 3 months. Labs prior to appointment. Sooner if needed. Patient understands and agrees with this plan. (2) Chronic painful diabetic neuropathy: Code(s): E11.40 - Type 2 diabetes mellitus with diabetic neuropathy, unspecified Category: Medical Plan: Stable. Currently following with pain management. A prescription for diabetic shoes ordered. (3) Essential hypertension: Code(s): I10 - Essential (primary) hypertension Category: Medical Plan: WNL. Continue current regimen. Orders: Orders AMB Hemoglobin A1c Today E11.42 - Type 2 diabetes mellitus with diabetic polyneuropathy, Z79.4 - terminal manager (current) use of insulin Medications: New foot care products Diabetic shoes and insoles. Use daily as directed 2 ea 0RF type 2 diabetes E11.40 - Type 2 diabetes mellitus with diabetic neuropathy, unspecified, E11.42 - Type 2 diabetes mellitus with diabetic polyneuropathy, Z79.4 - terminal manager (current) use of insulin Coding Level of Care Code Est Pt Level 4 (10362) Diagnoses Type 2 diabetes mellitus with diabetic polyneuropathy, with long-term current use of insulin E11.42; Z79.4 Diabetes mellitus computer terminal operator insulin use: with computer terminal operator use Chronic painful diabetic neuropathy E11.40 Essential hypertension I10 CPT Codes Details - CPT: 64431 - Glucose monitoring, continuous-physician I&R ([id number])
[2024-07-10 12:58] VITALS: BP 118/60; PULSE 70; BMI 28.6
[2024-07-10 13:10] LABS: Glucose, Whole Blood 120 mg/dL (60-115)
== END 2024-07-10 13:33 | disposition home or self-care (01) ==
PROVIDERS: PCP Nurse Practitioner Family; Visit Provider Physician Assistant
DX: E11.42 Type 2 diabetes mellitus with diabetic polyneuropathy (principal); Z79.4 Long term (current) use of insulin; E11.40 Type 2 diabetes mellitus with diabetic neuropathy, unspecified; I10 Essential (primary) hypertension

== ENCOUNTER → 2024-07-10 12:53 | Outpatient (BNVA) | payer MEDICARE, OTHER, SELFPAY | PROVIDERS: PCP Nurse Practitioner Family; Visit Provider Physician Assistant | DX: E11.42 Type 2 diabetes mellitus with diabetic polyneuropathy (principal); I10 Essential (primary) hypertension; Z79.4 Long term (current) use of insulin | CPT/HCPCS: 82947; 83036; 99212 ==

== ENCOUNTER 2024-08-07 08:45 | Outpatient (REF) | payer MEDICARE, OTHER, SELFPAY ==
[2024-08-07 11:19] LABS: Anion Gap 13 (12-20); Blood Urea Nitrogen 32 mg/dL (9-16); Carbon Dioxide 26 mmol/L (22-29); Chloride 110 mmol/L (96-108); Estimated Glomerular Filt Rate 33; Potassium 4.1 mmol/L (3.3-5.1); Sodium 145 mmol/L (135-145)
== END 2024-08-07 08:46 | disposition home or self-care (01) ==
LOC: HO.HMGCLDS 08:45
PROVIDERS: PCP Nurse Practitioner Family; Visit Provider Internal Medicine Nephrology
DX: N18.32 Chronic kidney disease, stage 3b (principal)
CPT/HCPCS: 36415; 80051; 82565; 84520

== ENCOUNTER 2024-08-09 11:02 | Outpatient (AMB) | payer MEDICARE, OTHER, SELFPAY ==
[2024-08-09 11:08] VITALS: BP 104/60; PULSE 69; O2SAT 97; BMI 29.0
--- NOTE | 2024-08-09 11:08 | HO.NEPHOV_ITS ---
Vital Signs 08/09/24 11:08 Height 5 ft 9 in Weight 196 lb 4 oz BMI 29.0 BP 104/60 Blood Pressure Location Rt brachial Position Sitting Pulse 69 Pulse Source Pulse Oximeter Pulse Oximetry (%) 97 Oxygen Delivery Method Room Air Intake Visit Reasons: CKD-LVM Wad Compressor Operator Adjuster Required: No Accompanied by: Spouse Allergies Iodinated Contrast Media [IV Dye, Iodine Containing] Allergy (Severe, Verified 08/09/24 11:09) SWELLING sulfamethoxazole [From Bactrim] Allergy (Severe, Verified 08/09/24 11:09) SWELLING RASH tetracycline [Tetracycline] Allergy (Severe, Verified 08/09/24 11:09) SWELLING , RASH trimethoprim [From Bactrim] Allergy (Severe, Verified 08/09/24 11:09) SWELLING RASH Sulfa (Sulfonamide Antibiotics) Allergy (Unknown, Verified 08/09/24 11:09) hives IVP dye Allergy (Unknown, Uncoded 07/10/24 12:57) Anaphylaxis Renée Dry Allergy (Unknown, Uncoded 07/10/24 12:57) rash tetracycline Allergy (Unknown, Uncoded 07/10/24 12:57) hives HPI Comments Details: Mark Anthony was seen in the office in follow-up of his chronic kidney disease and hypertension. He is known to have cardiomyopathy. He does not have any worsening pedal edema, chest pain, shortness of breath, proximal nocturnal dyspnea or orthopnea. He has not had any recent medication changes.He has been having AAA/ PAD pain and had undergone surgery. His serum creatinine has improved. [facility] Medical History (Updated 07/10/24 @ 13:25 by LORENZO Arredondo) Surgery, elective Obesity due to excess calories Hx of aneurysm Hx of myocardial infarction Carpal tunnel syndrome Throat cancer Ischemic colitis Pacemaker Diverticulitis BPH (benign prostatic hyperplasia) Type 2 diabetes mellitus with chronic kidney disease Chronic kidney disease, stage 3 Type 2 diabetes mellitus with diabetic polyneuropathy Essential hypertension Hyperlipidemia LDL goal <70 Surgical History History of back surgery H/O neck surgery History of prostate surgery Hx of angioplasty Hx of hernia repair Hx of tonsillectomy Family History Father Prostate cancer Mother Breast cancer Diabetes Social History Household Members: Spouse Patient Tobacco Use Status: Former Tobacco user Tobacco use type: Cigarette Cigarettes Per Day: 10 Years Smoked: 40 Review of Systems Const All systems reviewed & are unremarkable except as noted in HPI and below Physical Exam Vital Signs: Last Vital Signs Pulse 69 08/09/24 11:08 BP 104/60 08/09/24 11:08 Pulse Ox 97 08/09/24 11:08 Oxygen Delivery Method Room Air 08/09/24 11:08 BMI result Body Mass Index 29.0 Const General: comfortable and no acute distress Orientation/consciousness: patient oriented x3 HEENT Head: Yes normocephalic Mouth: Normal oral and palatal mucosa present Eyes EOM: EOMs intact bilaterally Neck Neck: Yes supple Resp Auscultation: clear to auscultation bilaterally Cardio Jugular venous distension: no JVD Rate: regular rate GI Palpation (GI): Soft to palpation Auscultation: normal bowel sounds General: Yes no CVA tenderness Back/Spine/Pelvis Back: no CVA tenderness Skin General skin exam: no rashes or lesions noted Neuro General: patient oriented x3 and moves all extremities Results Reviewed Nephrology Results: Sodium 145 mmol/L (135-145) 08/07/24 Potassium 4.1 mmol/L (3.3-5.1) 08/07/24 Chloride 110 mmol/L (96-108) H 08/07/24 Carbon Dioxide 26 mmol/L (22-29) 08/07/24 BUN 32 mg/dL (9-16) H 08/07/24 Creatinine 1.97 mg/dL (0.5-1.4) H 08/07/24 Assessment & Plan Assessment & Plan (1) CKD stage G3b/A1, GFR 30-44 and albumin creatinine ratio <30 mg/g: Code(s): N18.32 - Chronic kidney disease, stage 3b Category: Medical (2) Essential hypertension: Code(s): I10 - Essential (primary) hypertension Category: Medical Plan 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 He is hypertensive and diabetic with cardiomyopathy. His volume status is fair. He does not have any symptoms of hypervolemia. His blood pressure has been at goal. He is a great candidate for Farxiga/Jardiance at next visit. His twenty-four urine collection for creatinine clearance was 36 mls/minute. He is avoiding nonsteroidal anti-inflammatory medications. He would benefit from a bit of weight loss. He is on Ozempic. I did not make any other medication changes today but rather ordered follow-up blood work. All his questions were answered. Follow-up appointment given Orders: Orders Blood Urea Nitrogen 6 Months N18.32 - Chronic kidney disease, stage 3b Electrolytes 6 Months N18.32 - Chronic kidney disease, stage 3b Creatinine 6 Months N18.32 - Chronic kidney disease, stage 3b Coding Level of Care Code Est Pt Level 4 (16032) Diagnoses CKD stage G3b/A1, GFR 30-44 and albumin creatinine ratio <30 mg/g N18.32 Essential hypertension I10
== END 2024-08-09 11:44 | disposition home or self-care (01) ==
LOC: HO.HKA 11:02
PROVIDERS: PCP Nurse Practitioner Family; Visit Provider Internal Medicine Nephrology
DX: I12.9 Hypertensive chronic kidney disease with stage 1 through stage 4 chronic kidney disease, or unspecified chronic kidney disease (principal); N18.32 Chronic kidney disease, stage 3b
CPT/HCPCS: 99214

== ENCOUNTER → 2024-08-09 11:02 | Outpatient (BNVA) | payer MEDICARE, OTHER, SELFPAY | PROVIDERS: PCP Nurse Practitioner Family; Visit Provider Internal Medicine Nephrology | DX: I12.9 Hypertensive chronic kidney disease with stage 1 through stage 4 chronic kidney disease, or unspecified chronic kidney disease (principal); N18.32 Chronic kidney disease, stage 3b | CPT/HCPCS: 99212 ==

== ENCOUNTER 2024-10-13 13:52 | Outpatient (AMB) | payer MEDICARE, OTHER, SELFPAY ==
--- OUTSIDE RECORDS SUMMARY | 2024-10-13 13:54 | XMS_ITS | Continuity of Care Document ---
Author Organization [facility] Andrea Ashish lt Address [address] [place] [address]- Care Team Providers Care Cigar Head Pegger Name Role Phone Phyllis DOLAN, Marni Primary Care Physician [place] [facility] [place] 08/25/24 - 09/24/24 [facility] Gerard Lairdley Adult [address] [place] [address]- Encounter Type: Triage Allergies, Adverse Reactions, Alerts Substance Criticality Severity Reaction Reaction Severity Status tetracyclines rash Active Bactrim [...] rded pneumococcal 20-valent conjugate vaccine 02/09/23 Given [id number] 12y+ bivalent booster vax 07/10/22 Recorded SARS-CoV-2 [...] 07/10/15 Recorded tetanus-diphtheria toxoids (Td) 04/12/01 Recorded Problem List Condition Confirmation Course Effective Dates Status Health Status Informant AAA (abdominal aortic aneurysm) Confirmed Active Anxiety Confirmed Active Bacterial pneumonia [...] of diverticulitis Confirmed 07/07/23 Active History of [place] (myocardial infarction) Confirmed Active Hypercholesteremia Confirmed Active Hypertension Confirmed Active [facility] prescription benzodiazepine use Confirmed Active Lumbar radiculopathy Confirmed Active Throat cancer Confirmed Active 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 No significant mode switches and device is functioning normally. Full report under separate cover. Social History Social History Type Response Smoking Status Former smoker; Other : Quit 1993 without relapse; entered on: 10/22/16 Sex Sex Representation Male (finding) Implantable Device List Procedure Provider Procedure Date Device Type Site Removal Jose Morales MD 06/07/18 Unk nown Eye Right Device Identifier Serial Number Lot or Batch Number Manufacturing Date Expiration Date Distinct Identification Code MRI Safety Implantable Status Assigning Authority Unknown [id number] Unknown Unknown 02/24/20 Unknown Unknown Active Unknown Patient Care team information Care Team Personnel Name: Aurora Fairbanks RN Position: [facility] SN RN Member Role: Primary Care Nurse Name: Micaela Bridges RN Position: [facility] AMB Nurse Member Role: Primary Care Nurse Name: Mi Pelaez RN Position: [facility] RN Member Role: Primary Care Nurse Name: Angela Nogueira RN Position: [facility] RN Member Role: Primary Care Nurse Name: Cruz Hilliard RN Position: [facility] AMB Nurse Member Role: Primary Care Nurse Name: Marni Ferguson MD Position: [facility] Physician - Primary Care Member Role: PCP Address: [address] [place] [id number] Telecom: Name: Mya Hays RN Position: [facility] Nurse Member Role: Primary Care Nurse Name: Jean Lucero MD Position: [facility] Cardiology MD Member Role: Lifetime Consulting Physician Address: [address] [place] [address] [place] [address]- [place] Telecom: Name: Chante Nielson RN Position: [facility] Hospital Planishing Hammer Operator Member Role: Primary Care Nurse Care Team Related Persons Name: HEMALATHA SALAZAR Name: RONALD SALAZAR Insurance Providers Guarantor name: CHERELLE SALAZAR Health Plan Information #: 1 Payer: MEDICARE PART B OUTPT Member Number: NA Policy Number: NA Group Number: NA Health Plan Information #: 2 Payer: [facility] [employer] Member Number: NA Policy Number: NA Group Number: NA
--- OUTSIDE RECORDS SUMMARY | 2024-10-13 13:54 | XMS_ITS | Continuity of Care Document ---
Author Organization [facility] Ashish lt Address [address] [place] [address]- Care Team Providers Care Scanning Coordinator Name Role Phone Phyllis DOLAN, Marni Primary Care Physician [place] [facility] [place] 09[place]/24 [facility] Adult [address] [place] [address]- Encounter Type: Triage Allergies, Adverse Reactions, Alerts [...] 06/18/11 Brannon rded influenza virus vaccine, inactivated 9/13/10 Brannon rded influenza virus vaccine, inactivated 06/25/05 Brannon rded pneumococcal 20-valent conjugate vaccine 02/09/23 Given [id number] 12y+ bivalent booster vax 07/10/22 Recorded SARS-CoV-2 [...] of diverticulitis Confirmed 07/07/23 Active History of [place] (myocardial infarction) Confirmed Active Hypercholesteremia Confirmed Active Hypertension Confirmed Active [facility] prescription benzodiazepine use Confirmed Active Lumbar radiculopathy [...] Care Nurse Name: Micaela Bridges RN Position: [facility] AMB Nurse Member Role: Primary Care Nurse Name: Mi Pelaez RN Position: [facility] RN Member Role: Primary Care Nurse Name: Angela Nogueira RN Position: [facility] RN Member Role: Primary Care Nurse Name: Cruz Hilliard RN Position: [facility] AMB Nurse Member Role: Primary Care Nurse Name: Marni Ferguson MD Position: [facility] Physician - Primary Care Member Role: PCP Address: [address] [place] [id number]- [place] Telecom: Name: Mya Hays RN Position: [facility] Nurse Member Role: Primary Care Nurse Name: Jean Lucero MD Position: [facility] Cardiology MD Member Role: Lifetime Consulting Physician Address: [address] [place] [address] [place] [address]- [place] Telecom: Name: Chante Nielson RN Position: [facility] Hospital Cleaning Maid Member Role: Primary Care Nurse Care Team Related Persons Name: HEMALATHA SALAZAR Name: RONALD SALAZAR Insurance Providers Guarantor name: CHERELLE SALAZAR Health Plan Information #: 1 Payer: MEDICARE PART B OUTPT Member Number: NA Policy Number: NA Group Number: NA Health Plan Information #: 2 [facility] Member Number: NA Policy Number: NA Group Number: NA
--- OUTSIDE RECORDS SUMMARY | 2024-10-13 13:54 | XMS_ITS | Continuity of Care Document ---
Author Organization [facility] Andrea Ashish lt Address [address] [place] [address]- Care Team Providers Care Manager Foreign Name Role Phone Phyllis DOLAN, Marni Primary Care Physician En[place] [facility] [place] 08/28/24 - 09/27/24 [facility] Gerard Lairdley Adult [address] [place] [address]- Encounter Type: Triage Allergies, Adverse Reactions, Alerts [...] rded pneumococcal 20-valent conjugate vaccine 02/09/23 Given [id number] 12y+ bivalent booster vax 07/10/22 Recorded SARS-CoV-2 [...] of diverticulitis Confirmed 07/07/23 Active History of [place] (myocardial infarction) Confirmed Active Hypercholesteremia Confirmed Active Hypertension Confirmed Active alf prescription benzodiazepine use Confirmed Active Lumbar radiculopathy [...] Team Personnel Name: Aurora Fairbanks RN Position: [facility] SN RN Member Role: Primary Care Nurse Name: Micaela Bridges RN Position: [facility] AMB Nurse Member Role: Primary Care Nurse Name: Mi Pelaez RN Position: [facility] RN Member Role: Primary Care Nurse Name: Angela Nogueira RN Position: [facility] RN Member Role: Primary Care Nurse Name: Cruz Hilliard RN Position: [facility] AMB Nurse Member Role: Primary Care Nurse Name: Marni Ferguson MD Position: [facility] Physician - Primary Care Member Role: PCP Address: [address] [place] [id number] Telecom: Name: Mya Hays RN Position: [facility] Nurse Member Role: Primary Care Nurse Name: Jean Lucero MD Position: [facility] Cardiology MD Member Role: Lifetime Consulting Physician Address: [address] [place] [address] [place] [address]- [place] Telecom: Name: Chante Nielson RN Position: [facility] Hospital Second Baller Member Role: Primary Care Nurse Care Team Related Persons Name: HEMALATHA SALAZAR Name: RONALD SALAZAR Insurance Providers Guarantor name: CHERELLE SALAZAR Health Plan Information #: 1 Payer: MEDICARE PART B OUTPT Member Number: NA Policy Number: NA Group Number: NA Health Plan Information #: 2 Payer: [facility] [employer] Member Number: NA Policy Number: NA Group Number: NA
[2024-10-13 13:55] VITALS: BP 132/60; PULSE 76; BMI 29.2
--- NOTE | 2024-10-13 13:55 | MHC.OFFVIS ---
Vital Signs 10/13/24 13:55 Height 5 ft 9 in Weight 197 lb 12.074 oz BMI 29.2 BP 132/60 Blood Pressure Location Lt brachial Position Sitting Pulse 76 Pulse Source Pulse Oximeter Intake Visit Reasons: DM/Confirmed Intake Note: Patient present today for Type 2 Diabetes Mellitus. Last Diabetic eye exam: 09/2024 Last Podiatry Visit: Has upcoming appt next week Random Glucose: 106 mg/dl HgA1C: 6.5% Windows Application Administrator Required: No Accompanied by: Self / Same As Patient Allergies Iodinated Contrast Media [IV Dye, Iodine Containing] Allergy (Severe, Verified 10/13/24 14:03) SWELLING sulfamethoxazole [From Bactrim] Allergy (Severe, Verified 10/13/24 14:03) SWELLING RASH tetracycline [Tetracycline] Allergy (Severe, Verified 10/13/24 14:03) SWELLING , RASH trimethoprim [From Bactrim] Allergy (Severe, Verified 10/13/24 14:03) SWELLING RASH Sulfa (Sulfonamide Antibiotics) Allergy (Unknown, Verified 10/13/24 14:03) hives IVP dye Allergy (Unknown, Uncoded 10/13/24 14:03) Anaphylaxis Renée Dry Allergy (Unknown, Uncoded 10/13/24 14:03) rash tetracycline Allergy (Unknown, Uncoded 10/13/24 14:03) hives Medication List - Last Reconciled 10/13/24 by Bibi Cruz PA-C aspirin 81 mg PO DAILY atenolol 50 mg PO DAILY atorvastatin 80 mg PO BEDTIME blood sugar diagnostic (FreeStyle Lite Strips) 1 strip miscellaneous BID cyanocobalamin (vitamin B-12) ER 1,000 mcg PO DAILY fenofibrate nanocrystallized (Tricor) 145 mg PO DAILY flash glucose scanning reader (FreeStyle Vivek 14 Day [place]) As directed flash glucose sensor (FreeStyle Vivek 14 Day Sensor kit) USE DIRECTED AND CHANGE EVERY 14 DAYS, 90 days foot care products Wear diabetic shoes daily As directed foot care products Diabetic shoes and insoles. Use daily as directed furosemide 20 mg PO DAILY insulin degludec (Tresiba FlexTouch U-200 insulin) 28 units (0.14 mL) subcut .nightly lansoprazole 30 mg PO DAILY lorazepam 0.5 mg PO BEDTIME PRN nitroglycerin 0.4 mg sublingual Q5M PRN pen needle, diabetic (BD Ultra-Fine Micro Pen Needle) As directed; twice daily semaglutide (Ozempic) 0.5 mg subcut QWEEK tapentadol ER (Nucynta ER) 50 mg PO BID HPI HPI DM/Confirmed: Details: Patient is an 83-year-old male with a significant past medical history of stage 3b kidney disease, diabetic neuropathy, type 2 diabetes, hypertension, PAD and hyperlipidemia presenting today for a diabetic follow-up. -He forgot to get labs done prior to today's exam. Endo: His last A1c today is 6.5. He is currently on tresiba 28 units, Ozempic 0.5 mg weekly. -Since our last visit he did see vascular surgery and had bypass on his left leg and is feeling a lot better. He is following with pain management and was recently started on nucynta and oxycodone. He states that this is not necessarily helping neuropathy but it is helping his overall pain. He feels a lot better since his bypass surgery and since starting pain management. He is starting medical marijuana. He found his friend's gummy to be more effective. -at our last visit I started him on gabapentin which was then stopped when started the opioids. He also felt that this was ineffective. cgm-usage is at the 68 %, variability 31%. He is within target 89 % time and 6 % high. 5 % hypoglycemic. -he does have some hypoglycemic events overnight between 2 and 05:00. Vasc: He follows with vascular surgery from [place]. CV: Blood pressure is in the office is 132/60. He is on atenolol 50 mg, furosemide 20 mg. Cholesterol is controlled with atorvastatin 80 mg and Tricor 145 mg. Nephro: Follows with Dr. Hill. Discussed possible jardiance and he declines. [facility] Medical History (Updated 10/13/24 @ 14:37 by Bibi Cruz PA-C) Surgery, elective Obesity due to excess calories Hx of aneurysm Hx of myocardial infarction Carpal tunnel syndrome Throat cancer Ischemic colitis Pacemaker Diverticulitis BPH (benign prostatic hyperplasia) Type 2 diabetes mellitus with chronic kidney disease Chronic kidney disease, stage 3 Type 2 diabetes mellitus with diabetic polyneuropathy Essential hypertension Hyperlipidemia LDL goal <70 Surgical History History of back surgery H/O neck surgery History of prostate surgery Hx of angioplasty Hx of hernia repair Hx of tonsillectomy Family History Father Prostate cancer Mother Breast cancer Diabetes Social History Household Members: Spouse Patient Tobacco Use Status: Former Tobacco user Tobacco use type: Cigarette Cigarettes Per Day: 10 Years Smoked: 40 Physical Exam Vital Signs: Last Vital Signs Pulse 76 10/13/24 13:55 BP 132/60 10/13/24 13:55 BMI result Body Mass Index 29.2 Const Orientation/consciousness: patient oriented x3 HEENT Ears: hearing grossly normal bilaterally Neck Thyroid: Thyroid normal Lymphatic: no lymphadenopathy noted Resp Auscultation: clear to auscultation bilaterally Cardio Rate: regular rate Rhythm: regular rhythm Heart sounds: S1 normal heart sound present and S2 normal heart sound present Skin General skin exam: no rashes or lesions noted Neuro General: patient oriented x3, gait normal and no focal motor deficits Results AMB Hemoglobin A1c AMB Hemoglobin A1c 6.5 % Last Edit by LORENZO Tena on 10/13/24 14:14 Results Reviewed Results Reviewed: Laboratory Last Values Glucose (Clinic) 106 mg/dL (60-115) 10/13/24 14:05 Laboratory Tests 05/08/24 07/10/24 08/07/24 11:41 13:07 08:51 Sodium 145 Potassium 4.1 Chloride 110 H Carbon Dioxide 26 Anion Gap 13 BUN 35 H 32 H Creatinine 2.20 H 1.97 H Estimated GFR 29 33 Hgb A1c (Clinic) 6.2 H 10/13/24 14:07 Sodium Potassium Chloride Carbon Dioxide Anion Gap BUN Creatinine Estimated GFR Hgb A1c (Clinic) 6.5 H Assessment & Plan Assessment & Plan (1) Type 2 diabetes mellitus with chronic kidney disease: Code(s): E11.22 - Type 2 diabetes mellitus with diabetic chronic kidney disease Category: Medical Qualifiers: Diabetes mellitus prison insulin use: with prison use Chronic kidney disease stage: stage 4 (severe) Qualified Code(s): E11.22 - Type 2 diabetes mellitus with diabetic chronic kidney disease; N18.4 - Chronic kidney disease, stage 4 (severe); Z79.4 - USP (current) use of insulin Plan: Kidney function is stable. Reviewed labs from August with patient. A1c is at goal however patient does develop some hypoglycemia. I will try reducing the Tresiba to 20 units and we will increase Ozempic. He notes no appetite suppression with this or any weight loss. Tolerates it very well. I will have him return in 4-6 weeks to be reassessed. Sooner if needed. (2) Chronic painful diabetic neuropathy: Code(s): E11.40 - Type 2 diabetes mellitus with diabetic neuropathy, unspecified Category: Medical Plan: Currently being managed by [facility]. (3) Essential hypertension: Code(s): I10 - Essential (primary) hypertension Category: Medical Plan: WNL. Continue current regimen (4) Hyperlipidemia LDL goal <70: Code(s): E78.5 - Hyperlipidemia, unspecified Category: Medical Plan: Continue statin and fenofibrate (5) CKD stage G3b/A1, GFR 30-44 and albumin creatinine ratio <30 mg/g: Code(s): N18.32 - Chronic kidney disease, stage 3b Category: Medical Plan: Stable. Orders: Orders AMB Hemoglobin A1c Today E11.22 - Type 2 diabetes mellitus with diabetic chronic kidney disease, N18.4 - Chronic kidney disease, stage 4 (severe), Z13.9 - Encounter for screening, unspecified, Z79.4 - USP (current) use of insulin Medications: New semaglutide (Ozempic) 1 mg (0.75 mL) subcut QWEEK 3 mL 5RF Changed From insulin degludec (Tresiba FlexTouch U-200 insulin) 28 units (0.14 mL) subcut .nightly 9 mL 6RF To insulin degludec (Tresiba FlexTouch U-200 insulin) 20 units (0.1 mL) subcut .nightly 9 mL 6RF Patient Instructions: reduce tresiba to 20 units increase ozempic to 1 mg weekly short term follow up in 4-6 weeks Coding Level of Care Code Est Pt Level 4 (84131) Complex EM visit Add On G2211 Diagnoses Type 2 diabetes mellitus with stage 4 chronic kidney disease, with long-term current use of insulin E11.22; N18.4; Z79.4 Diabetes mellitus prison insulin use: with oil heaterman use Chronic kidney disease stage: stage 4 (severe) Chronic painful diabetic neuropathy E11.40 Essential hypertension I10 Hyperlipidemia LDL goal <70 E78.5 CKD stage G3b/A1, GFR 30-44 and albumin creatinine ratio <30 mg/g N18.32
--- OUTSIDE RECORDS SUMMARY | 2024-10-13 13:55 | XMS_ITS | Continuity of Care Document ---
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 Subsequently found to have lesion of the tip of the epiglottis excised. Presents for follow-up. 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 Otherwise stable.. follow up in 4 month lupe Not available 09/21/2024 11:35:20 Plan of Treatment Reminders Order Date Submit Date Provider Last Modified By Organization Details Last Modified Time Details Appointments Establish ed 30 2024 02:30P Daniel GONZALEZ MD Not available Not available Not available Lab None recorded. Referral None recorded. Procedures None recorded. Surgeries None recorded. Imaging None recorded. Medication Orders None recorded. Patient TargetsNo targets recorded. Patient InstructionsNo instructions recorded. Reason for Referral None Reported. 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; Note: Date Diagnosed : 03/04/2020 2:33 PM (C32.0) Not Available [facility] 4 02:46:28 Dysphonia 95021607 Active 2019 Hoarsenes s; Note: Date Diagnosed : 11/15/2019 1:00 PM (R49.0) Not Available [facility] 4 02:46:18 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 195071630 Active 2022 Malignant neoplasm of aryepiglo ttic fold NOS; Note: Changed from D38.0 to C13.1 ( 3 12:15 PM) , Date Diagnosed : 02/08/2023 11:22 AM (D38.0) Not Available [facility] 4 02:46:18 History of malignant neoplasm of larynx 912109956 Active 2020 Personal history of malignant neoplasm of larynx; Note: Date Diagnosed : 12/12/2020 12:47 PM (Z85.21) Not Available [facility] 4 02:46:18 Pharyngea l dysphagia 69950924639 105 Active 2021 Dysphagia , pharyngea l phase; Note: Date Diagnosed : 03/20/2022 11:46 AM (R13.13) Not Available [facility] 4 02:46:23 Follow-up visit Active 2019 Encounter for follow-up examinati on after completed treatment for malignant neoplasm; Note: Date Diagnosed : 04/24/2020 8:56 AM (Z08) Not Available [facility] 4 02:46:22 Lymphedem a 068695245 Active 2019 Lymphedem a, not elsewhere classifie d; Note: Date Diagnosed : 04/24/2020 9:00 AM (I89.0) Not Available [facility] 4 02:46:21 Chronic cough 97267324 Active 2021 Chronic cough; Note: Changed from R05 to R05.3 ( 2 11:46 AM) , Date Diagnosed : 03/20/2022 11:46 AM (R05) Not Available [facility] 4 02:46:19 Long-term current use of antiplate let drug 74454884975 4101 Active 2017 [facility] (current) use of antithrom botics/an tiplatele ts; Note: Date Diagnosed : 04/23/2017 12:51 PM (Z79.02) Not Available [facility] 4 02:46:28 Vasomotor rhinitis 0422301 Active 2020 Vasomotor rhinitis; Note: Date Diagnosed : 01/22/2021 11:42 AM (J30.0) Not Available [facility] 4 02:46:22 Neoplasm of uncertain behavior of larynx 42995292 Active 2019 Neoplasm of uncertain behavior of larynx; Note: Date Diagnosed : 12/19/2019 10:13 AM (D38.0) Not Available [facility] 4 02:46:26 Disorder of vocal cord 25173567 Active 2019 Other diseases of vocal cords; Note: Date Diagnosed : 11/15/2019 1:00 PM (J38.3) Not Available [facility] 4 02:46:20 Finding of resonance of voice 998067446 Active 2021 Other voice and resonance disorders ; Note: Date Diagnosed : 03/18/2022 5:46 PM (R49.8) Not Available [facility] 4 02:46:17 Bleeding from nose 687812284 Active 2017 Epistaxis ; Note: Date Diagnosed : 04/23/2017 12:51 PM (R04.0) Not Available [facility] 4 02:46:21 Edema of larynx following radiother apy 670744267 Active 2023 MELVIN QUINN MD [address] [place] [address],[place] [address], [place], [place], [address] , [facility] - [facility] 4 10:25:49 Abnormal auditory perceptio n 84593429 Active 2023 MELVIN QUINN MD [address] [place] [address],[place] [address], [address] , [facility] - [facility] 4 10:26:03 Bilateral tinnitus 81555131624 02 Active 2023 MELVIN QUINN MD [address] [facility],[place] [address], [facility] [place], [address] , [facility] - [facility] 4 10:26:07 Oropharyn geal dysphagia 27820689 Active 2023 MELVIN QUINN MD [address] [facility],[place] [address], [facility] [place] [place], [address] , [facility] - [facility] 4 10:26:16 Sensorine ural hearing loss of bilateral ears 020637682 Active 2023 COLIN JIMENEZ MA, CCC-A [address] [facility],[place] [address], [facility] [place] [place], [address] , [facility] - [facility] 4 11:01:59 Problem Notes None recorded. Procedures Surgical History Date Name Laterality Status Provider Name and Address Organization Details Recorded Time 09/21/20 24 Fiberoptic Laryngoscopy (Comprehensive) completed MELVIN AKERS MD [address] [facility],[address], [address], [facility] - [facility] 09/21/2024 11:34:17 05/31/20 24 Fiberoptic Laryngoscopy (Comprehensive) completed MELVIN AKERS MD [address] [facility],[address], [address], [facility] 05/30/2024 10:05:32 02/16/20 24 Comp Audio with Tymps (64242 & 19668) completed COLIN JIMENEZ MA, CCC-A [address] [facility],[address], [address], [facility] 02/16/2024 11:01:33 02/16/20 24 Fiberoptic Laryngoscopy (Comprehensive) completed MELVIN AKERS MD [address] [facility],[address], [address], [place] - [facility] 02/16/2024 10:25:42 02/24/20 23 Laryngoscopy with biopsy completed MELVIN AKERS MD [address] [facility],[place] [address] [place] [address], [address], [place] - [facility] 02/14/2024 18:47:38 12/19/19 20 Laryngoscopy for treatment completed MELVIN AKERS MD [address] [facility],[place] [address] [place] [address], [address], [place] - [facility] 02/14/2024 18:47:06 insertion of stent into aorta completed MELVIN AKERS MD [address] [facility],[place] [facility], [place], [address], [place] - [facility] 09/21/2024 11:35:38 peripheral arterial bypass completed MELVIN AKERS MD [address] [facility],[address], [address], [place] - [facility] 09/21/2024 11:35:45 Imaging Results None recorded. Procedure Notes None recorded. Medical Equipment None Reported. Allergies Allergen ID Allergen Name Allergen Category Reaction Reaction Severity Criticality Documentation Date Start Date Code Code System Note Provider Name and Address Organization Details Recorded Time 59038 Bactrim medicatio n other Not available Not available 02/15/2024 49891 9 RxNorm React ion: unkno wn, unspe cifie d;; Not Available [facility] 4 01:04:16 72944 Medicinal product containin g tetracycl ine structure and acting as antibacte rial agent (product) medicatio n other Not available Not available 02/15/2024 94442 1004 SNOMED React ion: unkno wn, unspe cifie d;; Not Available [facility] 4 01:04:19 Medications Name Sig Start Date Stop Date Status Note LastModified by Organization Details LastModified Time metformin 500 mg tablet 04/23 completed Medicati on ID: [id number] D uration Value: 90 Brand Name: metformi n Send Method: E-Prescr ibed Sub s Allowed: subs OK Medic ationGen ericName : metformi n Not Available Not Available Not Available atorvasta tin 80 mg tablet TAKE 1 TABLET BY MOUTH DAILY active Not Available Not Available No t Available gabapenti n 600 mg tablet 12/18 completed Medicati on ID: [id number] B rand Name: gabapent in Send Method: E-Prescr ibed Sub s Allowed: subs OK Medic ationGen ericName : gabapent in Not Available Not Available Not Available ketoconaz ole 2 % shampoo SHAMPOO 2 TO 3 X PER WEEK FOR MAINSHINA NCE active Not Available Not Available No t Available oxybutyni n chloride ER 10 mg tablet,ex tended release 24 hr 04/23 completed Medicati on ID: [id number] D uration Value: 30 Brand Name: oxybutyn in chloride Send Method: E-Prescr ibed Sub s Allowed: subs OK Medic ationGen ericName : oxybutyn in chloride Not Available Not Available Not Available atenolol 100 mg tablet 2020 active Medicati on ID: [id number] B rand Name: atenolol Send Method: E-Prescr ibed Sub s Allowed: subs OK Medic ationGen ericName : atenolol Not Available Not Available Not Available glipizide ER 10 mg tablet, extended release 24 hr 04/23 completed Medicati on ID: [id number] D uration Value: 90 Brand Name: glipizid e Send Method: E-Prescr ibed Sub s Allowed: subs OK Medic ationGen ericName : glipizid e Not Available Not Available Not Available methylpre dnisolone 32 mg tablet TAKE 1 TABLET 12 HOURS BEFORE MYELOGRA M AND 1 TABLET 2 HOURS BEFORE MYELOGRA M active Not Available Not Available No t Available gabapenti n 400 mg capsule 12/18 completed Medicati on ID: [id number] B rand Name: gabapent in Send Method: E-Prescr ibed Sub s Allowed: subs OK Medic ationGen ericName : gabapent in Not Available Not Available Not Available Zyrtec 10 mg tablet Take 1 tablet by mouth as directed 2021 active Medicati on ID: [id number] D uration Value: 1 Brand Name: Zyrtec S end Method: E-Prescr ibed Sub s Allowed: subs OK Speci al Instruct ion: take one tablet by mouth [address] Scan Med icationG enericNa me: Zyrtec Not Available Not Available Not Available clopidogr el 75 mg tablet 12/17 completed Medicati on ID: [id number] D uration Value: 90 Brand Name: clopidog rel Send Method: E-Prescr ibed Sub s Allowed: subs OK Medic ationGen ericName : clopidog rel Not Available Not Available Not Available amlodipin e 5 mg tablet 04/23 completed Medicati on ID: [id number] D uration Value: 90 Brand Name: amlodipi ne Send Method: E-Prescr ibed Sub s Allowed: subs OK Medic ationGen ericName : amlodipi ne Not Available Not Available Not Available tramadol 50 mg tablet 04/23 completed Medicati on ID: [id number] D uration Value: 90 Brand Name: tramadol Send Method: E-Prescr ibed Sub s Allowed: subs OK Medic ationGen ericName : tramadol Not Available Not Available Not Available lorazepam 0.5 mg tablet TAKE 1 TABLET BY MOUTH TWICE DAILY active Not Available Not Available No t Available prednison e 1 mg tablet 12/18 completed Medicati on ID: [id number] B rand Name: predniso ne Send Method: E-Prescr ibed Sub s Allowed: subs OK Medic ationGen ericName : predniso ne Not Available Not Available Not Available erythromy blake 5 mg/gram (0.5 %) eye ointment active Not Available Not Available Not Available lansopraz ole 30 mg capsule,d elayed release TAKE 1 CAPSULE BY MOUTH EVERY DAY active Not Available Not Available No t Available prednison e 50 mg tablet active Not Available Not Available Not Available lidocaine 5 % topical patch APPLY 1 PATCH TO THE LOW BACK DAILY FOR 12 HOURS THEN REMOVE (12 HRS ON AND 12 HRS OFF) active Not Available Not Available No t Available nitroglyc kishan 0.4 mg sublingua l tablet DISSOLVE 1 TABLET UNDER THE TONGUE EVERY 5 MINUTES FOR UP TO 3 DOSES NEEDED FOR CHEST PAIN. CALL 911 IF PAIN PERSISTS active Not Available Not Available No t Available gabapenti n 300 mg capsule TAKE 1 CAPSULE BY MOUTH THREE TIMES DAILY active Not Available Not Available No t Available allopurin ol 300 mg tablet 04/23 completed Medicati on ID: [id number] D uration Value: 90 Brand Name: allopuri nol Send Method: E-Prescr ibed Sub s Allowed: subs OK Medic ationGen ericName : allopuri nol Not Available Not Available Not Available furosemid e 20 mg tablet TAKE 1 TABLET BY MOUTH DAILY active Not Available Not Available No t Available ipratropi um bromide 42 mcg (0.06 %) nasal spray 12/18 completed Medicati on ID: [id number] B rand Name: ipratrop ium bromide Send Method: E-Prescr ibed Sub s Allowed: subs OK Medic ationGen ericName : ipratrop ium bromide Not Available Not Available Not Available atenolol 50 mg tablet TAKE 1 TABLET BY MOUTH EVERY DAY active Not Available Not Available No t Available amoxicill in 875 mg-potass ium clavulana te 125 mg tablet TAKE 1 TABLET BY MOUTH TWICE DAILY active Not Available Not Available No t Available oxycodone 5 mg tablet TAKE 2 TABLETS BY MOUTH EVERY 4 HOURS NEEDED FOR SEVERE BREAKTHR OUGH PAIN MAX 6 TABLETS PER DAY active Not Available Not Available No t Available Benadryl Allergy 25 mg tablet 2 tablet by mouth 2019 active Medicati on ID: [id number] D uration Value: 1 Prescri bed By Name: RODERICK Chacon nd Name: Benadryl Allergy Send Method: E-Prescr ibed Sub s Allowed: subs OK Speci al Instruct ion: take 2 tablets [address] scan Med icationG enericNa me: Benadryl Allergy Not Available Not Available Not Available olmesarta n 5 mg tablet 12/18 completed Medicati on ID: [id number] B rand Name: olmesart an Send Method: E-Prescr ibed Sub s Allowed: subs OK Medic ationGen ericName : olmesart an Not Available Not Available Not Available olmesarta n 20 mg tablet 2020 active Medicati on ID: [id number] B rand Name: olmesart an Send Method: E-Prescr ibed Sub s Allowed: subs OK Medic ationGen ericName : olmesart an Not Available Not Available Not Available escitalop angie 10 mg tablet 04/23 completed Medicati on ID: [id number] D uration Value: 90 Brand Name: escitalo pram oxalate Send Method: E-Prescr ibed Sub s Allowed: subs OK Medic ationGen ericName : escitalo pram oxalate Not Available Not Available Not Available Novolog FlexPen U-100 Insulin aspart 100 unit/mL (3 mL) subcutane ous 2020 active Medicati on ID: [id number] B rand Name: Novolog Flexpen U-100 Insulin Send Method: E-Prescr ibed Sub s Allowed: subs OK Medic ationGen ericName : Novolog Flexpen U-100 Insulin Not Available Not Available Not Available pregabali n 150 mg capsule 2020 active Medicati on ID: [id number] B rand Name: pregabal in Send Method: E-Prescr ibed Sub s Allowed: subs OK Medic ationGen ericName : pregabal in Not Available Not Available Not Available Lyrica 75 mg capsule 04/23 completed Medicati on ID: [id number] D uration Value: 90 Brand Name: Lyrica S end Method: E-Prescr ibed Sub s Allowed: subs OK Medic ationGen ericName : Lyrica Not Available Not Available Not Available Levemir FlexPen 100 unit/mL (3 mL) solution subcutane ous insulin pen ADMINIST ER 30 UNITS UNDER THE SKIN DAILY active Not Available Not Available No t Available fenofibra te nanocryst allized 145 mg tablet TAKE 1 TABLET BY MOUTH DAILY active Not Available Not Available No t Available oxycodone 10 mg tablet TAKE 1 TABLET BY MOUTH TWICE DAILY NEEDED FOR SEVERE PAIN active Not Available Not Available No t Available Nucynta ER 50 mg tablet,ex tended release TAKE 1 TABLET BY MOUTH TWICE A DAY active Not Available Not Available No t Available Banophen 50 mg capsule TAKE 1 CAPSULE BY MOUTH 1 HOUR PRIOR TO CATSCAN active Not Available Not Available No t Available Trulicity 1.5 mg/0.5 mL subcutane ous pen injector active Medicati on ID: [id number] B rand Name: Trulicit y Send Method: E-Prescr ibed Sub s Allowed: subs OK Medic ationGen ericName : Trulicit y Not Available Not Available Not Available Tresiba FlexTouch U-200 insulin 200 unit/mL (3 mL) subcutane ous pen INJECT 28 UNITS SUBCUTAN EOUSLY ONCE DAILY AT NIGHT active Not Available Not Available No t Available BD Ultra-Fin e Micro Pen Needle 32 gauge x 1/4 12/18 completed Medicati on ID: [id number] B rand Name: BD Ultra-Fi ne Micro Pen Needle S end Method: E-Prescr ibed Sub s Allowed: subs OK Medic ationGen ericName : BD Ultra-Fi ne Micro Pen Needle Not Available Not Available Not Available Ozempic 0.25 mg or 0.5 mg (2 mg/1.5 mL) subcutane ous pen injector 2020 active Medicati on ID: [id number] B rand Name: Ozempic Send Method: E-Prescr ibed Sub s Allowed: subs OK Medic ationGen ericName : Ozempic Not Available Not Available Not Available BD Ev 2nd Gen Pen Needle 32 gauge x USE DIRECTED ONCE DAILY active Not Available Not Available No t Available FreeStyle Vivek 2 Sensor kit USE DIRECTED EVERY 14 DAYS active Not Available Not Available No t Available Ozempic 0.25 mg or 0.5 mg (2 mg/3 mL) subcutane ous pen injector INJECT 0.5 MG SUBCUTAN EOUSLY EVERY 7 DAYS active Not Available Not Available No t Available Vitals Date Recorded Body height Body mass index (BMI) Body weight Provider Name and Address Organization Details Last Updated DateTime 09/21/2024 172.72 cm 30.4 kg/m2 47972.47 g Malik Joiner [place] - [facility] 09/21/2024 11:15:52 Social History Question Answer Notes LastModified by Organizat ion Details LastModified Time Tobacco Smoking Status Never Smoker Malik craig [facility] 02/16/2024 10:08:12 What Is Your Level Of Alcohol Consumption? None [email or web address] Information not available 02/16/2024 Do You Use Any Illicit Or Recreational Drugs? No Information not available 02/16/2024 Do You Or Have You Ever Used Any Other Forms Of Tobacco Or Nicotine? No [email or web address] Information not available 02/16/2024 Sex: Unknown Functional Status None recorded. Mental Status None recorded. Family History Nothing Reported. Medical History Condition Response Diabetes Y High Cholesterol Y Hyperlipidemia Y Hypertension Y Past Encounters Encounter ID Performer Location Encounter Start Date Encounter Closed Date Diagnosis/Indication Diagnosis SNOMED-CT Code Diagnosis ICD10 Code Diagnosis Note [id number] MELVIN QUINN MD [facility] [address] [address] 09/21/2024 10:58:20 09/21/2024 11:41:36 History of malignant neoplasm of larynx 233549523 Z85.21 Chronic hoarseness 77790 60282 105 R49.0 Edema of l arynx following radiotherapy 440983231 J38.4 Bilateral tinnitus 73376 41600 102 H93.13 Oropharyng eal dysphagia 87505660 R13.12 Sensorineu ral hearing loss of bilateral ears 462732378 H90.3 Health Concerns Section Related Observation LastModified by Organization Detai ls LastModified Time None Recorded Concern Status LastModified by Organization Details LastModified Time None Recorded Payers Encounter Date Sequence Insurance Name Policy Number Policy Purcell Covered Member ID Purcell Member ID Guarantor Name 09/21/2024 2 [facility] INDEMNITY PLAN - NATIVE (INDEMNITY) [id number] Mark Anthony Omalley [id number] Mark Anthony Omalley 09/21/2024 1 MEDICARE B-[place]: [facility] [employer] Mark Anthony Omalley [id number] Mark Anthony Omalley Notes Date Note Type Note Provider Name and Address Organization Details Recorded Time 09/21/2024 text/html Hearing Loss - AdultReported bypatient.Notes:Hx of bilateral tinnitus, hearing loss and noise exposure. 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 Subsequently found to have lesion of the tip of the epiglottis excised. Presents for follow-up. Denies any change in the baseline voice, eating, drinking or swallowing difficultiesSCCA right TVF treated with XRT completed April 2020 and lesion left AE fold excised positive for SCCA 03/2023 Recently he underwent stenting of his aortic aneurysm and peripheral vascular bypass. He is also had several injections in the lumbar spine. From an ENT standpoint he is doing well. 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 Subsequently found to have lesion of the tip of the epiglottis excised. Presents for follow-up. Denies any change in the baseline voice, eating, drinking or swallowing difficultiesSCCA right TVF treated with XRT completed April 2020 and lesion left AE fold excised positive for SCCA 03/2023 Has to use water to swallow, but otherwise ok Denies change in voice or swallowing. No otalgia Reports no distal pulse in left leg. Scheduled for aortic stent and possible peripheral bypass tomorrow. MELVIN AKERS MD [address] [place] [address],[facility] [address], [place], [address], [facility] - [facility] 09/21/2024 13:02:16
--- OUTSIDE RECORDS SUMMARY | 2024-10-13 13:55 | XMS_ITS | Data Portability ---
Author Organization [place] - [facility] Address [address] [address] Care Team Providers Care Retail Support Specialist Name Role Phone CHRISTIE CAR Referring Provider Assessment Encounter Date Assessment Date Assessment LastModified by Organization Details LastModified Time 02/16/2024 02/16/2024 Patient with history of squamous cell carcinoma [...] SCCA 03/2023 Has to use water to swallow Notes difficultly hearing spouse and bliateral tinnitus. hx of noise exposure Exam shows no recurrent carcinoma. Audio reviewed [email or web address] Not available 02/16/2024 10:28:42 05/31/2024 05/31/2024 Patient with history of squamous cell carcinoma [...] SCCA 03/2023 Has to use water to swallow Notes difficultly hearing spouse and bliateral tinnitus. hx of noise exposure No new complaints today. Exam shows no recurrent carcinoma. check TSH f/u 4 months [email or web address] Not available 05/31/2024 10:19:16 09/21/2024 09/21/2024 Patient with history of squamous [...] Details Appointments Establish ed 30 2024 02:30P M MELVIN GONZALEZ MD Not available Not available Not available Lab unlisted lab - TSH w/reflex 2023 024 [place] [facility], [address], [address], [place], [address], 06/02/2024 21:10:25 Referral None recorded. Procedures None recorded. Surgeries None recorded. Imaging None recorded. Medication Orders None recorded. Patient TargetsNo targets recorded. Patient InstructionsNo instructions recorded. Reason for Referral None Reported. Results Created Date Observation Date Name Description Value Unit Range Abnormal Flag Note LastModifiedBy Organization Detail LastModifiedTime 05/31/2005/31/2024 TSH W/REF LOLIS TSH 4.510 uIU/m L 0.450- 4.500 above high normal Not Available [facility] ([facility]) [address] [place], [address], 06/02/2024 21:10:25 05/31/20 24 06/02/2024 TSH W/REF LOLIS triiodothyro nine (T3), free 2.6 pg/mL 2.0-4. 4 Not Available [facility] ([facility]) [address] [place], [address], 06/02/2024 21:10:25 05/31/2006/02/2024 TSH W/REF LOLIS T4,free (direct) 1.07 NG/dL 0.82-1 .77 normal Not Available [facility] ([facility]) [address] [place], [address], 06/02/2024 21:10:25 05/24/20 24 11/17/2019 imagi ng/di agnos tic resul t No observ ation record ed. [email or web address] Not Available 20:46:05 05/24/20 24 11/17/2019 imagi ng/di agnos tic resul t No observ ation record ed. [email or web address] Not Available 20:46:06 05/24/20 24 11/29/2019 imagi ng/di agnos tic resul t No observ ation record ed. [email or web address] Not Available 20:46:15 05/24/20 24 12/03/2020 imagi ng/di agnos tic resul t No observ ation record ed. [email or web address] Not Available 20:46:20 05/24/20 24 12/11/2019 imagi ng/di agnos tic resul t No observ ation record ed. [email or web address] Not Available 20:46:34 05/24/20 24 12/21/2019 imagi ng/di agnos tic resul t No observ ation record ed. [email or web address] Not Available 20:47:15 05/24/20 24 12/27/2019 imagi ng/di agnos tic resul t No observ ation record ed. [email or web address] Not Available 20:47:18 05/24/20 24 12/27/2019 imagi ng/di agnos tic resul t No observ ation record ed. [email or web address] Not Available 20:47:19 05/24/20 24 01/08/2022 imagi ng/di agnos tic resul t No observ ation record ed. [email or web address] Not Available 20:47:26 05/24/20 24 01/08/2022 imagi ng/di agnos tic resul t No observ ation record ed. [email or web address] Not Available 20:47:28 05/24/20 24 02/16/2024 imagi ng/di agnos tic resul t No observ ation record ed. [email or web address] Not Available 20:47:37 05/24/20 24 04/02/2022 imagi ng/di agnos tic resul t No observ ation record ed. [email or web address] Not Available 20:48:18 05/24/20 24 04/02/2023 imagi ng/di agnos tic resul t No observ ation record ed. [email or web address] Not Available 20:48:23 05/24/20 24 05/04/2022 imagi ng/di agnos tic resul t No observ ation record ed. [email or web address] Not Available 20:48:33 05/24/20 24 06/16/2023 imagi ng/di agnos tic resul t No observ ation record ed. [email or web address] Not Available 20:49:02 05/24/20 24 09/06/2020 imagi ng/di agnos tic resul t No observ ation record ed. [email or web address] Not Available 20:49:09 05/24/20 24 09/09/2020 imagi ng/di agnos tic resul t No observ ation record ed. [email or web address] Not Available 20:49:17 05/24/20 24 09/09/2020 imagi ng/di agnos tic resul t No observ ation record ed. [email or web address] Not Available 20:49:21 Result Notes None recorded. 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; Note: Date Diagnosed : 03/04/2020 2:33 PM (C32.0) Not Available [facility] 4 02:46:28 Dysphonia 78793001 Active 2019 Hoarsenes s; Note: Date Diagnosed : 11/15/2019 1:00 PM (R49.0) Not Available [facility] 4 02:46:18 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 239229488 Active 2022 Malignant neoplasm of aryepiglo ttic fold NOS; Note: Changed from D38.0 to C13.1 ( 3 12:15 PM) , Date Diagnosed : 02/08/2023 11:22 AM (D38.0) Not Available [facility] 4 02:46:18 History of malignant neoplasm of larynx 632626792 Active 2020 Personal history of malignant neoplasm of larynx; Note: Date Diagnosed : 12/12/2020 12:47 PM (Z85.21) Not Available [facility] 4 02:46:18 Pharyngea l dysphagia 04186833845 105 Active 2021 Dysphagia , pharyngea l phase; Note: Date Diagnosed : 03/20/2022 11:46 AM (R13.13) Not Available [facility] 4 02:46:23 Follow-up visit Active 2019 Encounter for follow-up examinati on after completed treatment for malignant neoplasm; Note: Date Diagnosed : 04/24/2020 8:56 AM (Z08) Not Available [facility] 4 02:46:22 Lymphedem a 636815970 Active 2019 Lymphedem a, not elsewhere classifie d; Note: Date Diagnosed : 04/24/2020 9:00 AM (I89.0) Not Available [facility] 4 02:46:21 Chronic cough 84412639 Active 2021 Chronic cough; Note: Changed from R05 to R05.3 ( 2 11:46 AM) , Date Diagnosed : 03/20/2022 11:46 AM (R05) Not Available [facility] 4 02:46:19 Long-term current use of antiplate let drug 27714650383 4101 Active 2017 jail (current) use of antithrom botics/an tiplatele ts; Note: Date Diagnosed : 04/23/2017 12:51 PM (Z79.02) Not Available [facility] 4 02:46:28 Vasomotor rhinitis 2266909 Active 2020 Vasomotor rhinitis; Note: Date Diagnosed : 01/22/2021 11:42 AM (J30.0) Not Available [facility] 4 02:46:22 Neoplasm of uncertain behavior of larynx 79200674 Active 2019 Neoplasm of uncertain behavior of larynx; Note: Date Diagnosed : 12/19/2019 10:13 AM (D38.0) Not Available [facility] 4 02:46:26 Disorder of vocal cord 42766350 Active 2019 Other diseases of vocal cords; Note: Date Diagnosed : 11/15/2019 1:00 PM (J38.3) Not Available [facility] 4 02:46:20 Finding of resonance of voice 644202270 Active 2021 Other voice and resonance disorders ; Note: Date Diagnosed : 03/18/2022 5:46 PM (R49.8) Not Available [facility] 4 02:46:17 Bleeding from nose 424967906 Active 2017 Epistaxis ; Note: Date Diagnosed : 04/23/2017 12:51 PM (R04.0) Not Available [facility] 4 02:46:21 Edema of larynx following radiother apy 926823850 Active 2023 MELVIN QUINN MD [address] [facility] [address], [place], [address] , [facility] 4 10:25:49 Abnormal auditory perceptio n 55256021 Active 2023 MELVIN QUINN MD 100 [facility] [address], [place], [address] , [place] - [facility] 4 10:26:03 Bilateral tinnitus 54544990145 02 Active 2023 MELVIN QUINN MD [address],[place] [facility] [place], [address] , [facility] - [facility] 4 10:26:07 Oropharyn geal dysphagia 48565089 Active 2023 MEL[facility]IN QUINN MD [address] [facility] [address], [place], [address] , [facility] [place] 4 10:26:16 Sensorine ural hearing loss of bilateral ears 213502422 Active 2023 COLIN JIMENEZ [place], [facility] [address] [facility],[place] [address], [place], [address] , [facility] 4 11:01:59 Problem Notes None recorded. Procedures Surgical History Date Name Laterality Status Provider Name and Address Organization Details Recorded Time 09/21/20 24 Fiberoptic Laryngoscopy (Comprehensive) completed MELVIN AKERS MD [address] [facility] [address], [place], [address], [facility] - [facility] 09/21/2024 11:34:17 05/31/20 24 Fiberoptic Laryngoscopy (Comprehensive) completed MELVIN AKERS MD 100 [facility],[place] [address], [place], [address], [facility] 05/30/2024 10:05:32 02/16/20 24 Comp Audio with Tymps (40640 & 98538) completed COLIN JIMENEZ MA, CCC-A [address] [facility], [place], [address], [facility] - [facility] 02/16/2024 11:01:33 02/16/20 24 Fiberoptic Laryngoscopy (Comprehensive) completed MELVIN AKERS MD [address] [facility], [place], [address], [facility] 02/16/2024 10:25:42 02/24/20 23 Laryngoscopy with biopsy completed MELVIN AKERS MD [address], [place], [address], [place] [facility] 02/14/2024 18:47:38 12/19/19 Laryngoscopy for treatment completed MELVIN AKERS MD [address], [place], [address], [place] [facility] 02/14/2024 18:47:06 insertion of stent into aorta completed MELVIN AKERS MD [address], [place], [address], [place] [facility] 09/21/2024 11:35:38 peripheral arterial bypass completed MELVIN AKERS MD [address], [place], [address], [place] [facility] 09/21/2024 11:35:45 Imaging Results Imaging Date Name Status LastModified by [facility] Details LastModified Time 11/17/2019 imaging/diag nostic result completed Information not available 05/24/2024 20:46:05 11/17/2019 imaging/diag nostic result completed Information not available 05/24/2024 20:46:06 11/29/2019 imaging/diag nostic result completed Information not available 05/24/2024 20:46:15 12/03/2020 imaging/diag nostic result completed Information not available 05/24/2024 20:46:20 12/11/2019 imaging/diag nostic result completed Information not available 05/24/2024 20:46:34 12/21/2019 imaging/diag nostic result completed Information not available 05/24/2024 20:47:15 12/27/2019 imaging/diag nostic result completed Information not available 05/24/2024 20:47:18 12/27/2019 imaging/diag nostic result completed Information not available 05/24/2024 20:47:19 01/08/2022 imaging/diag nostic result completed Information not available 05/24/2024 20:47:26 01/08/2022 imaging/diag nostic result completed Information not available 05/24/2024 20:47:28 02/16/2024 imaging/diag nostic result completed Information not available 05/24/2024 20:47:37 04/02/2022 imaging/diag nostic result completed Information not available 05/24/2024 20:48:18 04/02/2023 imaging/diag nostic result completed Information not available 05/24/2024 20:48:23 05/04/2022 imaging/diag nostic result completed Information not available 05/24/2024 20:48:33 06/16/2023 imaging/diag nostic result completed Information not available 05/24/2024 20:49:02 09/06/2020 imaging/diag nostic result completed Information not available 05/24/2024 20:49:09 09/09/2020 imaging/diag nostic result completed Information not available 05/24/2024 20:49:17 09/09/2020 imaging/diag nostic result completed Information not available 05/24/2024 20:49:21 Procedure Notes None recorded. Medical Equipment None Reported. Allergies Allergen ID Allergen Name Allergen Category Reaction Reaction Severity Criticality Documentation Date Start Date Code Code System Note Provider Name and Address Organization Details Recorded Time 87806 Bactrim medicatio n other Not available Not available 02/15/2024 25438 9 RxNorm React ion: unkno wn, unspe cifie d;; Not Available [facility] 4 01:04:16 70671 Medicinal product containin g tetracycl ine structure and acting as antibacte rial agent (product) medicatio n other Not available Not available 02/15/2024 71612 1004 SNOMED React ion: unkno wn, unspe cifie d;; Not Available [facility] 4 01:04:19 Medications Name Sig Start Date Stop Date Status Note LastModified by Organization Details LastModified Time metformin 500 mg tablet 04/23 completed Medicati on ID: [id number] D uration Value: 90 Brand Name: metformi n Send Method: E-Prescr ibed Sub s Allowed: subs OK Medic ationGen ericName : metformi n Not Available Not Available Not Available atorvasta tin 80 mg tablet TAKE 1 TABLET BY MOUTH DAILY active Not Available Not Available No t Available gabapenti n 600 mg tablet 12/18 completed Medicati on ID: [id number] B rand Name: gabapent in Send Method: E-Prescr ibed Sub s Allowed: subs OK Medic ationGen ericName : gabapent in Not Available Not Available Not Available ketoconaz ole 2 % shampoo SHAMPOO 2 TO 3 X PER WEEK FOR MAINTENA NCE active Not Available Not Available No t Available oxybutyni n chloride ER 10 mg tablet,ex tended release 24 hr 04/23 completed Medicati on ID: 511846 D uration Value: 30 Brand Name: oxybutyn in chloride Send Method: E-Prescr ibed Sub s Allowed: subs OK Medic ationGen ericName : oxybutyn in chloride Not Available Not Available Not Available atenolol 100 mg tablet 2020 active Medicati on ID: [id number] B rand Name: atenolol Send Method: E-Prescr ibed Sub s Allowed: subs OK Medic ationGen ericName : atenolol Not Available Not Available Not Available glipizide ER 10 mg tablet, extended release 24 hr 04/23 completed Medicati on ID: [id number] D uration Value: 90 Brand Name: glipizid [...] mg capsule 12/18 completed Medicati on ID: [id number] B rand Name: gabapent in Send Method: E-Prescr ibed Sub s Allowed: subs OK Medic ationGen ericName : gabapent in Not Available Not Available Not Available Zyrtec 10 mg tablet Take 1 tablet by mouth as directed 2021 active Medicati on ID: [id number] D uration Value: 1 Brand Name: Zyrtec S end Method: E-Prescr ibed Sub s Allowed: subs OK Speci al Instruct ion: take one tablet by mouth [address] Scan Med icationG enericNa me: Zyrtec Not Available Not Available Not Available clopidogr el 75 mg tablet 12/17 completed Medicati on ID: [id number] D uration Value: 90 Brand Name: clopidog rel Send Method: E-Prescr ibed Sub s Allowed: subs OK Medic ationGen ericName : clopidog rel Not Available Not Available Not Available amlodipin e 5 mg tablet 04/23 completed Medicati on ID: [id number] D uration Value: 90 Brand Name: amlodipi ne Send Method: E-Prescr ibed Sub s Allowed: subs OK Medic ationGen ericName : amlodipi ne Not Available Not Available Not Available tramadol 50 mg tablet 04/23 completed Medicati on ID: [id number] D uration Value: 90 Brand Name: tramadol Send Method: E-Prescr ibed Sub s Allowed: subs OK Medic ationGen ericName : tramadol Not Available Not Available Not Available lorazepam 0.5 mg tablet TAKE 1 TABLET BY MOUTH TWICE DAILY active Not Available Not Available No t Available prednison e 1 mg tablet 12/18 completed Medicati on ID: [id number] B rand Name: predniso ne Send Method: [...] mg tablet 04/23 completed Medicati on ID: [id number] D uration Value: 90 Brand Name: allopuri nol Send Method: E-Prescr ibed Sub s Allowed: subs OK Medic ationGen ericName : allopuri nol Not Available Not Available Not Available furosemid e 20 mg tablet TAKE 1 TABLET BY MOUTH DAILY active Not Available Not Available No t Available ipratropi um bromide 42 mcg (0.06 %) nasal spray 12/18 completed Medicati on ID: [id number] B rand Name: ipratrop ium bromide Send [...] by mouth 2019 active Medicati on ID: 227294 D uration Value: 1 Prescri bed By Name: RODERICK Chacon nd Name: Benadryl Allergy Send Method: E-Prescr ibed Sub s Allowed: subs OK Speci al Instruct ion: take 2 tablets [address] scan Med icationG enericNa me: Benadryl Allergy Not Available Not Available Not Available olmesarta n 5 mg tablet 12/18 completed Medicati on ID: [id number] B rand Name: olmesart an Send Method: E-Prescr ibed Sub s Allowed: subs OK Medic ationGen ericName : olmesart an Not Available Not Available Not Available olmesarta n 20 mg tablet 2020 active Medicati on ID: [id number] B rand Name: olmesart an Send Method: E-Prescr ibed Sub s Allowed: subs OK Medic ationGen ericName : olmesart an Not Available Not Available Not Available escitalop angie 10 mg tablet 04/23 completed Medicati on ID: [id number] D uration Value: 90 Brand Name: escitalo pram oxalate Send Method: E-Prescr ibed Sub s Allowed: subs OK Medic ationGen ericName : escitalo pram oxalate Not Available Not Available Not Available Novolog FlexPen U-100 Insulin aspart 100 unit/mL (3 mL) subcutane ous 2020 active Medicati on ID: [id number] B rand Name: Novolog Flexpen U-100 Insulin Send Method: E-Prescr ibed Sub s Allowed: subs OK Medic ationGen ericName : Novolog Flexpen U-100 Insulin Not Available Not Available Not Available pregabali n 150 mg capsule 2020 active Medicati on ID: [id number] B rand Name: pregabal in Send Method: E-Prescr ibed Sub s Allowed: subs OK Medic ationGen ericName : pregabal in Not Available Not Available Not Available Lyrica 75 mg capsule 04/23 completed Medicati on ID: [id number] D uration Value: 90 Brand Name: Lyrica [...] ous pen injector active Medicati on ID: 205213 B rand Name: Trulicit y Send Method: E-Prescr ibed Sub s Allowed: subs OK Medic ationGen ericName : Stephaneulicit y Not Available Not Available Not Available Tresiba FlexTouch U-200 insulin 200 unit/mL (3 mL) subcutane ous pen INJECT 28 UNITS SUBCUTAN EOUSLY ONCE DAILY AT NIGHT active Not Available Not Available No t Available BD Ultra-Fin e Micro Pen Needle 32 gauge x 1/4 12/18 completed Medicati on ID: [id number] B rand Name: BD Ultra-Fi ne Micro Pen Needle S end Method: E-Prescr ibed Sub s Allowed: subs OK Medic ationGen ericName : BD Ultra-Fi ne Micro Pen Needle Not Available Not Available Not Available Ozempic 0.25 mg or 0.5 mg (2 mg/1.5 mL) subcutane ous pen injector 2020 active Medicati on ID: [id number] B rand Name: Ozempic Send Method: E-Prescr ibed Sub s Allowed: subs OK Medic ation ericName : Ozempic Not Available Not Available Not Available BD Ev 2nd Gen Pen Needle 32 gauge x 5/32 USE DIRECTED ONCE DAILY active Not Available [...] and Address Organization Details Last Updated DateTime 05/31/2024 172.72 cm 30.6 kg/m2 46419.07 g Malik Joiner [place] - [facility] 05/31/2024 09:57:53 Date Recorded Body weight Body mass index (BMI) Body height Provider Name and Address Organization Details Last Updated DateTime 02/16/2024 30741.29 g 30.1 kg/m2 172.72 cm Malik Joiner [place] - [facility] 02/16/2024 10:11:40 Date Recorded Body height Body mass index (BMI) Body weight Provider Name and Address Organization Details Last Updated DateTime 09/21/2024 172.72 cm 30.4 kg/m2 96756.47 g Malik Joiner [place] - [facility] 09/21/2024 11:15:52 Social History Question Answer Notes LastModified by Organizat ion Details LastModified Time Tobacco Smoking Status Never Smoker Malik craig [place] - [facility] 02/16/2024 10:08:12 What Is Your Level Of Alcohol Consumption? None [email or web address] Information not available 02/16/2024 Do You Use Any Illicit Or Recreational Drugs? No [email or web address] Information not available 02/16/2024 Do You Or Have You Ever Used Any Other Forms Of Tobacco Or Nicotine? No [email or web address] Information not available 02/16/2024 Sex: Unknown Functional Status None recorded. Mental Status None recorded. Family History Nothing Reported. Medical History Condition Response Diabetes Y Hyperlipidemia Y Hypertension Y High Cholesterol Y Past Encounters Encounter ID Performer Location Encounter Start Date Encounter Closed Date Diagnosis/Indication Diagnosis SNOMED-CT Code Diagnosis ICD10 Code Diagnosis Note [id number] MELVIN QUINN MD [facility] [address] [address] 02/16/2024 10:01:00 02/16/2024 11:03:28 Abnormal auditory perception 66316996 H93.299 Bilateral tinnitus 86917 22790 102 H93.13 Oropharyng eal dysphagia 22572611 R13.12 Sensorineu ral hearing loss of bilateral ears 185181070 H90.3 Normal hearing thru 1000Hz sloping to a mild to to severe sensorineu ral hearing loss with excellent speech discrimina tion ability for both ears.Type A tympanogra ms. Declines amplificat ion History of malignant neoplasm of larynx 544612079 Z85.21 Chronic hoarseness 11891 15556 105 R49.0 Edema of l arynx following radiotherapy 131570610 J38.4 [id number] COLIN JIMENEZ MA, CCC-A [facility] [address] [address] 02/16/2024 10:57:00 02/17/2024 22:38:16 Sensorineural hearing loss of bilateral ears 885478444 H90.3 Normal hearing thru 1000Hz sloping to a mild to to severe sensorineu ral hearing loss with excellent speech discrimina tion ability for both ears.Type A tympanogra ms. Bilateral tinnitus 17357 14964 102 H93.13 [id number] MELVIN QUINN MD [facility] [address] [address] 05/31/2024 09:51:42 05/31/2024 10:31:47 History of malignant neoplasm of larynx 102182937 Z85.21 Chronic hoarseness 22852 39554 105 R49.0 Edema of l arynx following radiotherapy 220388018 J38.4 Bilateral tinnitus 92432 62114 102 H93.13 Oropharyng eal dysphagia 89338355 R13.12 Sensorineu ral hearing loss of bilateral ears 874031411 H90.3 [id number] MELVIN QUINN MD [facility] [address] [address] 09/21/2024 10:58:20 09/21/2024 11:41:36 History of malignant neoplasm of larynx 714856208 Z85.21 Chronic hoarseness 09185 54421 105 R49.0 Edema of l arynx following radiotherapy 634044825 J38.4 Bilateral tinnitus 19581 33398 102 H93.13 Oropharyng eal dysphagia 10842695 R13.12 Sensorineu ral hearing loss of bilateral ears 743355825 H90.3 Health Concerns Section Related Observation LastModified by Organization Detai ls LastModified Time None Recorded Concern Status LastModified by Organization Details LastModified Time None Recorded Advance Directives Directive None Recorded Payers Encounter Date Sequence Insurance Name Policy Number Policy Purcell Covered Member ID Purcell Member ID Guarantor Name 02/16/2024 2 [facility] INDEMNITY [facility] - [place] (INDEMNITY) [id number] Mark Anthony Omalley [id number] Mark Anthony Omalley 02/16/2024 1 MEDICARE B-[place]: [facility] [employer] [facility] Mark Anthony Omlaley [id number] Mark Anthony Omalley 02/16/2024 2 [facility] INDEMNITY [facility] - [place] (INDEMNITY) [id number] Mark Anthony Omalley [id number] Mark Anthony Omalley 02/16/2024 1 MEDICARE B-[place]: [facility] Mark Anthony Omalley [id number] Mark Anthony Omalley 05/31/2024 2 [facility] INDEMNITY PLAN - [place] (INDEMNITY) [id number] Mark Anthony Omalley [id number] Mark Anthony Omalley 05/31/2024 1 MEDICARE B-[place]: [facility] Mark Anthony Omalley [id number] Mark Anthony Omalley 09/21/2024 2 [facility] INDEMNITY PLAN - [place] (INDEMNITY) [id number] Mark Anthony Omalley [id number] Mark Anthony Omalley 09/21/2024 1 MEDICARE B-[place]: [facility] Mark Anthony Omalley [id number] Mark Anthony Omalley Notes Date Note Type Note Provider Name and Address Organization Details Recorded Time 02/16/2024 text/html Hearing Loss - AdultReported bypatient.Notes:Hx of bilateral tinnitus, hearing loss and noise exposure. notes he has difficulty hearing her Patient with history of squamous cell carcinoma [...] SCCA 03/2023 Has to use water to swallow MELVIN AKERS MD [address] [place] [address], [phone], [facility] 02/16/2024 12:28:07 02/16/2024 text/html tinnitus COLIN JIMENEZ MA, [facility] [address] [place] [address],[address], [phone], [facility] 02/16/2024 11:07:36 05/31/2024 text/html Hearing Loss - AdultReported bypatient.Notes:Hx of [...] possible peripheral bypass tomorrow. MELVIN AKERS MD [address] [facility],[place] [address], [place], [phone], [facility] 05/31/2024 10:20:02 09/21/2024 text/html Hearing Loss - AdultReported bypatient.Notes:Hx [...] possible peripheral bypass tomorrow. MELVIN AKERS MD [address] [facility] [address], [place], [phone], [facility] 09/21/2024 13:02:16
[2024-10-13 14:09] LABS: Glucose, Whole Blood 106 mg/dL (60-115)
== END 2024-10-13 14:35 | disposition home or self-care (01) ==
LOC: HO.ENCR 13:52
PROVIDERS: Visit Provider Physician Assistant
DX: E11.22 Type 2 diabetes mellitus with diabetic chronic kidney disease (principal); N18.4 Chronic kidney disease, stage 4 (severe); Z79.4 Long term (current) use of insulin; E11.40 Type 2 diabetes mellitus with diabetic neuropathy, unspecified; I12.9 Hypertensive chronic kidney disease with stage 1 through stage 4 chronic kidney disease, or unspecified chronic kidney disease; E78.5 Hyperlipidemia, unspecified; N18.32 Chronic kidney disease, stage 3b; Z13.9 Encounter for screening, unspecified

== ENCOUNTER → 2024-10-13 13:52 | Outpatient (BNVA) | payer MEDICARE, OTHER, SELFPAY | PROVIDERS: Visit Provider Physician Assistant | DX: I12.9 Hypertensive chronic kidney disease with stage 1 through stage 4 chronic kidney disease, or unspecified chronic kidney disease (principal); E11.22 Type 2 diabetes mellitus with diabetic chronic kidney disease; N18.32 Chronic kidney disease, stage 3b; E11.40 Type 2 diabetes mellitus with diabetic neuropathy, unspecified; E78.5 Hyperlipidemia, unspecified; Z79.4 Long term (current) use of insulin | CPT/HCPCS: 82947; 83036; 99212 ==

== ENCOUNTER 2024-12-01 12:49 | Outpatient (AMB) | payer MEDICARE, OTHER, SELFPAY ==
[2024-12-01 12:50] VITALS: BP 138/64; PULSE 68; O2SAT 93; BMI 28.7
--- NOTE | 2024-12-01 12:50 | A.OFFVIS_ITS ---
Vital Signs 12/01/24 12:50 Height 5 ft 9 in Weight 194 lb 7.163 oz BMI 28.7 BP 138/64 Blood Pressure Location Lt brachial Position Sitting Pulse 68 Pulse Source Pulse Oximeter Pulse Oximetry (%) 93 Oxygen Delivery Method Room Air Intake Visit Reasons: dm - low blood sugars Intake Note: Patient present today for Type 2 Diabetes Mellitus and low blood sugars. Last Diabetic eye exam: 10/2024 Last Podiatry Visit: 11/2024 Random Glucose: 125 mg/dl HgA1C: 6.5% 10/13/24 Dirt Contractor Required: No Accompanied by: Self / Same As Patient Allergies Iodinated Contrast Media [IV Dye, Iodine Containing] Allergy (Severe, Verified 12/01/24 12:55) SWELLING sulfamethoxazole [From Bactrim] Allergy (Severe, Verified 12/01/24 12:55) SWELLING RASH tetracycline [Tetracycline] Allergy (Severe, Verified 12/01/24 12:55) SWELLING , RASH trimethoprim [From Bactrim] Allergy (Severe, Verified 12/01/24 12:55) SWELLING RASH Sulfa (Sulfonamide Antibiotics) Allergy (Unknown, Verified 12/01/24 12:55) hives IVP dye Allergy (Unknown, Uncoded 12/01/24 12:55) Anaphylaxis Renée Dry Allergy (Unknown, Uncoded 12/01/24 12:55) rash tetracycline Allergy (Unknown, Uncoded 12/01/24 12:55) hives HPI HPI dm - low blood sugars: Details: Patient is an 84-year-old male with a significant past medical history of stage 3b kidney disease, diabetic neuropathy, type 2 diabetes, hypertension, PAD and hyperlipidemia presenting today for a diabetic follow-up. -He forgot to get labs done prior to today's exam. States he will do this month Endo: His last A1c 6.5. He is currently on tresiba 15 units, Ozempic 1 mg weekly. -Since our last visit he did see vascular surgery and had bypass on his left leg and is feeling a lot better. He is following with pain management and was recently started on nucynta and oxycodone. He states that this is not necessarily helping neuropathy but it is helping his overall pain. He feels a lot better since his bypass surgery and since starting pain management. He is starting medical marijuana. He found his friend's gummy to be more effective. -at our last visit I started him on gabapentin which was then stopped when started the opioids. He also felt that this was ineffective. cgm-usage is at the 97%. He is within target 97% time, 3% high, 0% hypoglycemic. Vasc: He follows with vascular surgery from [place]. CV: Blood pressure is in the office is 138/64. He is on atenolol 50 mg, furosemide 20 mg. Cholesterol is controlled with atorvastatin 80 mg and Tricor 145 mg. Nephro: Follows with Dr. Hill. Discussed possible jardiance and he declines. [facility] Medical History (Updated 10/13/24 @ 14:37 by Bibi Cruz PA-C) Surgery, elective Obesity due to excess calories Hx of aneurysm Hx of myocardial infarction Carpal tunnel syndrome Throat cancer Ischemic colitis Pacemaker Diverticulitis BPH (benign prostatic hyperplasia) Type 2 diabetes mellitus with chronic kidney disease Chronic kidney disease, stage 3 Type 2 diabetes mellitus with diabetic polyneuropathy Essential hypertension Hyperlipidemia LDL goal <70 Surgical History History of back surgery H/O neck surgery History of prostate surgery Hx of angioplasty Hx of hernia repair Hx of tonsillectomy Family History Father Prostate cancer Mother Breast cancer Diabetes Social History Household Members: Spouse Patient Tobacco Use Status: Former Tobacco user Tobacco use type: Cigarette Cigarettes Per Day: 10 Years Smoked: 40 Physical Exam Const Orientation/consciousness: patient oriented x3 HEENT Ears: hearing grossly normal bilaterally Neck Thyroid: Thyroid normal Lymphatic: no lymphadenopathy noted Resp Auscultation: clear to auscultation bilaterally Cardio Rate: regular rate Rhythm: regular rhythm Heart sounds: S1 normal heart sound present and S2 normal heart sound present Skin General skin exam: no rashes or lesions noted Neuro General: patient oriented x3, gait normal and no focal motor deficits Results Reviewed Results Reviewed: Laboratory Tests 08/07/24 10/13/24 08:51 14:07 Sodium 145 Potassium 4.1 Chloride 110 H Carbon Dioxide 26 Anion Gap 13 BUN 32 H Creatinine 1.97 H Estimated GFR 33 Hgb A1c (Clinic) 6.5 H Assessment & Plan Assessment & Plan (1) Type 2 diabetes mellitus with chronic kidney disease: Code(s): E11.22 - Type 2 diabetes mellitus with diabetic chronic kidney disease Category: Medical Qualifiers: Chronic kidney disease stage: stage 4 (severe) Diabetes mellitus care home insulin use: with care home use Qualified Code(s): E11.22 - Type 2 diabetes mellitus with diabetic chronic kidney disease; N18.4 - Chronic kidney disease, stage 4 (severe); Z79.4 - jail (current) use of insulin Plan: increase ozempic to 2 mg reduce tresiba to 10 units if needed- otherwise d/c tresiba if glucose well controlled with higher dose of ozempic (2) Hyperlipidemia LDL goal <70: Code(s): E78.5 - Hyperlipidemia, unspecified Category: Medical Plan: He states that he will be getting labs done at [facility] not [place] and we will let me know when they are completed. He states that he will get me a copy. Continue on atorvastatin. (3) Essential hypertension: Code(s): I10 - Essential (primary) hypertension Category: Medical Plan: WNL. Continue current regimen. (4) Chronic painful diabetic neuropathy: Code(s): E11.40 - Type 2 diabetes mellitus with diabetic neuropathy, unspecified Category: Medical Plan: Has had improvement with marijuana. Medications: New semaglutide (Ozempic) 2 mg (0.75 mL) subcut QWEEK 3 mL 5RF Changed From insulin degludec (Tresiba FlexTouch U-200 insulin) 20 units (0.1 mL) subcut .nightly 9 mL 6RF To insulin degludec (Tresiba FlexTouch U-200 insulin) 10 units (0.05 mL) subcut .nightly 9 mL 6RF Discontinued semaglutide (Ozempic) Discontinued Reason: Duplicate 1 mg (0.75 mL) subcut QWEEK 3 mL 5RF Patient Instructions: increase ozempic to 2 mg reduce tresiba to 10 units if needed- otherwise discontinue tresiba if glucose well controlled with higher dose of ozempic Coding Level of Care Code Est Pt Level 4 (80637) Complex EM visit Add On G2211 Diagnoses Type 2 diabetes mellitus with stage 4 chronic kidney disease, with long-term current use of insulin E11.22; N18.4; Z79.4 Chronic kidney disease stage: stage 4 (severe) Diabetes mellitus care home insulin use: with superintendent marine oil terminal use Hyperlipidemia LDL goal <70 E78.5 Essential hypertension I10 Chronic painful diabetic neuropathy E11.40
[2024-12-01 13:00] LABS: Glucose, Whole Blood 125 mg/dL (60-115)
--- OUTSIDE RECORDS SUMMARY | 2024-12-01 14:53 | XMS_ITS ---
Author Organization [address] [place] [address] [place] [phone] Phone Care Team Providers Care Time Analysis Clerk Name Role Phone Marni Ferguson MD Primary Care Provider [phone] Transitional Care Management Status:Closed (Closed) Start date:10/28/2024 Enrollment date:10/28/2024 Enrollment reason:Identified using hospital discharge data End date:11/28/2024 Close reason:Completed program Continued Care and Services Coordination
--- OUTSIDE RECORDS SUMMARY | 2024-12-01 14:53 | XMS_ITS | Continuity of Care Document ---
Author Organization [facility] lt Address [address] [place] [address]- Care Team Providers Care Call Center Professional Name Role Phone Phyllis DOLAN, Marni Primary Care Physician [place] [facility] [place] - 11/02/24 [facility] [address] [place] [address]- Encounter Diagnosis Sore throat(Discharge Diagnosis) - 10/26/24 Attending Physician: Jennifer Massey Encounter Type: Office Visit Allergies, Adverse Reactions, Alerts Substance Criticality Severity [...] rded pneumococcal 20-valent conjugate vaccine 02/09/23 Given [id number] 12y+ bivalent booster vax 07/10/22 Recorded SARS-CoV-2 [...] Active Hypercholesteremia Confirmed Active Hypertension Confirmed Active fur puller prescription benzodiazepine use Confirmed Active Lumbar radiculopathy [...] Diagnosis Diagnosis Type Effective Dates Health Status [facility] Service Informant Sore throat Discharge Diagnosis 10/26/24 Vital Signs Most recent to oldest [Reference Range]: 1 Height 177 cm (10/26/24 10:59 AM) Weight 88.45 kg (10/26/24 10:59 AM) Oxygen Saturation [94-100 %] 100 % (10/26/24 10:59 AM) Pulse Rate [55-90 bpm] 70 bpm (10/26/24 10:59 AM) Body Mass Index [18.5-24.99 kg/m2] 28.23 kg/m2 *H* (10/26/24 10:59 AM) Blood Pressure [90-138/55-84 mm Hg] 131/ 67mm Hg (10/26/24 10:59 AM) Temperature [96.8-100.4 DegF] 98.5 DegF (10/26/24 10:59 AM) Mode of Delivery (Oxygen) Room air (10/26/24 10:59 AM) Blood pressure sites Arm, right (10/26/24 10:59 AM) Temperature Route Oral (10/26/24 10:59 AM) Weight Obtained Via Standing scale (10/26/24 10:59 AM) Social History Social History Type Response [...] Team Personnel Name: Aurora Fairbanks RN Position: [facility] SN RN Member Role: Primary Care Nurse Name: Micaela Bridges RN Position: [facility] AMB Nurse Member Role: Primary Care Nurse Name: Mi Pelaez RN Position: [facility] RN Member Role: Primary Care Nurse Name: Angela Nogueira RN Position: [facility] RN Member Role: Primary Care Nurse Name: Cruz Hilliard RN Position: [facility] AMB Nurse Member Role: Primary Care Nurse Name: Marni Ferguson MD Position: [facility] Physician - Primary Care Member Role: PCP Address: [address] [facility] Adult Med [facility] [place] [address]- [place] Telecom: Name: Mya Hays RN Position: [facility] Nurse Member Role: Primary Care Nurse Name: Jean Lucero MD Position: [facility] Cardiology MD Member Role: Lif[employer] Consulting Physician Address: [address] [place] [address]- [place] Telecom: Name: Chante Nielson RN Position: [facility] Hospital Event Set Up Specialist Member Role: Primary Care Nurse Care Team Related Persons Name: HEMALATHA SALAZAR Name: RONALD SALAZAR Insurance Providers Guarantor name: CHERELLE MARTIN Health Plan Information #: 2 Payer: [facility] Member Number: [id number] Policy Number: NA Group Number: [id number] Health Plan Information #: 1 Payer: MEDICARE PART B OUTPT Member Number: [id number] Policy Number: NA Group Number: NA
--- OUTSIDE RECORDS SUMMARY | 2024-12-01 14:53 | XMS_ITS | Clinical Summary ---
Author Organization [address] [facility] Address [address] [place] [address] Phone Care Team Providers Care Felt Cutting Machine Operator Name Role Phone Marni Ferguson MD Primary Care Provider [phone] Allergies Active Allergy Reactions Criticality Noted Date Comments Iodinated Contrast Media Rash 08/29/2024 Rash / dermatitis Sulfa (Sulfonamide Antibiotics) 08/05 Rash/dermatitis Sulfamethoxazole-Trimethoprim Other 2023 Tetracyclines Other 12/18/2020 Medications aspirin 81 mg chewable tablet 1 tablet = 81 mg, By Mouth, Daily, 0 Refills, Maintenance, 09/18/19 9:54:11 EST 9 Active cyanocobalamin (VITAMIN B-12) 500 mcg tablet Take by mouth. 1000mg daily Active ketoconazole (NIZORAL) 2 % shampoo 1 Active lansoprazole (PREVACID) [address] capsule TAKE 1 CAPSULE BY MOUTH EVERY DAY 1 Active nitroglycerin (NITROSTAT) 0.[address] 0.4 mg under the tongue every 5 minutes as needed. Active BD Ev 2nd Gen Pen Needle 32 gauge x needle USE DIRECTED TO INJECT INSULIN 4 Active flash glucose sensor kit USE DIRECTED EVERY 14 DAYS Active fenofibrate (TRICOR) 145 mg tablet TAKE 1 TABLET BY MOUTH EVERY DAY 2 Active atorvastatin (LIPITOR) 80 mg tablet TAKE 1 TABLET BY MOUTH EVERY DAY 2 Active atenoloL (TENORMIN) 50 mg tablet TAKE 1 TABLET BY MOUTH DAILY 2 Active glucose sensor,implant-d examet device 1 Product by Does not apply route every 14 days. 4 Active pen needle, diabetic (BD Ultra-Fine Micro Pen Needle) 32 gauge x 1/4 needle DIRECTED TWICE DAILY 2 Active diphenhydrAMINE (BENADRYL) 50 mg tablet Take 1 Tablet by mouth as needed (1 hour prior to Cat Scan). 4 Active furosemide (LASIX) 20 mg tablet TAKE 1 TABLET BY MOUTH EVERY DAY AND 2 TABS EVERY OTHER DAY 2 Active flash glucose scanning reader (SelftradeStJascha Vivek 2 [place]) [facility] [place] 1 Product by Does not apply route every 14 days 3 Active Ozempic 1 mg/dose (4 mg/3 mL) injection pen Inject 1 mg under the skin every 7 (seven) days. 5 Active Nucynta ER 50 mg 12 hr tablet Take 1 tablet (50 mg total) by mouth 2 (two) times a day. Active LORazepam (ATIVAN) 0.5 mg tablet Take 1 tablet (0.5 mg total) by mouth 2 (two) times a day. Active Tresiba FlexTouch U-200 200 unit/mL (3 mL) CONCENTRATED injection pen Inject 20 Units under the skin at bedtime. 4 Active rivaroxaban (Xarelto) 2.5 mg tabletIndication s:Infrarenal abdominal aortic aneurysm (AAA) without rupture (CMS/HCC),Occlus ion of arterial bypass graft, subsequent encounter Take 1 tablet (2.5 mg total) by mouth 2 (two) times a day with meals. 60 tablet 11 5 Active enoxaparin (LOVENOX) 40 mg/0.4 mL syringe Inject 0.4 mL (40 mg total) under the skin 1 (one) time each day at the same time. 30 each 5 11/27/19 25 sodium chloride (OCEAN) 0.65 % nasal spray Administer 2 sprays into each nostril 3 (three) times a day if needed for congestion. 15 mL 5 11/27/19 25 Active Problems Problem Noted Date Diagnosed Date 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 Omalley underwent bilateral radiofrequency ablation on 10/08/2022 at [facility] with some improvement lasting 1 month. He now continues to have extreme lower back pain with mild activities such as standing and washing dishes or trying to go grocery shopping. At its worst, this pain extends up to his neck and down the back of his legs to his toes. When most severe, the lateral calves will go numb. His standing tolerance is 15 to 20 minutes and this limits his everyday activity. On exam, seated SLR is positive bilaterally 90 degrees, strength 5/5, sensation to light touch slightly diminished along the lateral calves, gait is steady. We discussed that I think he is most symptomatic from degenerative disc disease but, in the absence of stenosis, there is no role for surgery. He has not improved with injections or ablations. He has had PT in the past and is only relief now is with very intermittent doses of oxycodone. I discussed the option of a spinal cord stimulator with him as he is familiar with a TENS unit, having used it in the past. We will arrange for follow-up with Dr. Jimenes where they can discuss further options. In the interim, we will try to obtain a home TENS unit for him. CHRISTY (obstructive sleep apnea) 07/03/2022 Overview (08/29/2024): using cpap Leg edema 04/24/2022 Overview (08/29/2024): Last Assessment & Plan: He does not have leg edema. He is taking Lasix 20 mg alternating with 40 mg. This has been helping him. We did discuss that his gabapentin may be causing some of his leg edema. He does not feel that this is helping him. He is going to decrease this from 600 mg twice a day to 300 mg twice a day to see if this makes any difference in his pain and to see if this improves his leg edema. If it does not then we will need to consider increasing his Lasix to 40 mg daily. If this is the case we will need to do a Chem-7 to make sure his creatinine stays stable. His baseline creatinine is around 1.8. He is seeing Dr. Stallings next week. Bacterial pneumonia 04/21/2022 CHF (congestive heart failure) 04/21/2022 Gastrointestinal hemorrhage 04/21/2022 Neuropathy 04/21/2022 SSS (sick sinus syndrome) 04/21/2022 Overview (08/29/2024): Last Assessment & Plan: This is been stable. He is status post pacemaker generator replacement as he was end-of-life. This is working well. He is feeling better now that his heart rates are in the higher range. Acute hypoxemic respiratory failure 04/21/2022 Heart block AV complete 04/01/2022 AAA (abdominal aortic aneurysm) 12/26/2020 Overview (08/29/2024): Last Assessment & Plan: He had a repeat echo done recently. This showed no changes when compared to before. He has been followed by vascular surgery. 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 Last Assessment & Plan: This is been stable. Again his last cardiac catheterization was in 2005. Has had no symptoms since then. We will continue to monitor him for any changes. If he has any symptoms he will let us know. We will continue to work on risk factor modifications including low blood pressure low cholesterol diet and exercise. Gastroesophageal reflux disease without esophagi tis 08/09/2020 Hyperlipidemia 08/09/2020 Overview (08/29/2024): Last Assessment & Plan: This is been stable. Did improve significantly with the addition of fish oil. We will continue him on this as well as his current dose of Lipitor. We may be able to decrease the dose of Lipitor moving forward. He will continue to work on healthy lifestyle choices and diet. Peripheral vascular disease 08/09/2020 Overview (08/29/2024): Last Assessment & Plan: This is stable. Again this is being followed by Dr. Banks. He states that he will be getting a lower extremity arterial study done in the next couple weeks. ST elevation myocardial infarction (STEMI) 08/09 Overview (08/29/2024): Last Assessment & Plan: This is been stable. Again his last cardiac catheterization was in 2005. Has had no symptoms since then. We will continue to monitor him for any changes. If he has any symptoms he will let us know. We will continue to work on risk factor modifications including low blood pressure low cholesterol diet and exercise. 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 [address] [place] [address] Acute deep vein thrombosis (DVT) of femoral vein of right lower extremity (CMS/HCC); Leg edema; Bilateral leg pain 11/24/2024 10:30 AM EST Ancillary Procedure [facility] [address] [place] [address] Infrarenal abdominal aortic aneurysm (AAA) without rupture (CMS/HCC); Occlusion of arterial bypass graft, subsequent encounter; Bilateral leg pain 11/22/2024 9:40 AM EST Ancillary Procedure [facility] Card[facility] [address] [place] [address] 11/03/2024 1:30 PM EST Office Visit [facility] - [facility] [address] [place] [address] Ahmet Banks MD Infrarenal abdominal aortic aneurysm (AAA) without rupture (CMS/HCC) (Primary Dx); Occlusion of arterial bypass graft, subsequent encounter; Acute deep vein thrombosis (DVT) of femoral vein of right lower extremity (CMS/HCC); Leg edema; Bilateral leg pain 10/31/2024 11:30 AM EST - 10/31/2024 12:30 PM EST Surgery [facility] Cardiac [employer] [address] [place] [phone] Ahmet Banks MD Angiography lower ext right [[id number] (CPT??)] 10/31/2024 9:42 AM EST - 10/31/2024 6:38 PM EST Hospital Encounter [facility]iac [employer] [address] [place] [phone] Ahmet Banks MD Occlusion of arterial bypass graft, initial encounter (CMS/HCC) Discharge Disposition: Home or Self Care 10/28/2024 4:41 PM EST - 10/28/2024 6:55 PM EST Emergency [facility] Emergency [address] [place] [phone] Bleeding (Primary Dx) Discharge Disposition: Home or Self Care 10/26/2024 5:17 PM EST - 10/28/2024 1:22 PM EST Emergency [facility] Medical Surgical Unit [address] [place] [phone] Maximus Goins MD Jones, Christopher, MD Kela, Kashyap Devendrabhai, MD Deep vein thrombosis (DVT) of proximal lower extremity, unspecified chronicity, unspecified laterality (CMS/HCC) (Primary Dx); Epistaxis Discharge Disposition: Home or Self Care 10/26/2024 4:23 PM EST - 10/26/2024 11:59 PM EST Hospital Encounter [facility] Ultrasound [address] [place] [address] Acute deep vein thrombosis (DVT) of right peroneal vein (CMS/HCC) Discharge Disposition: Home or Self Care 10/25/2024 10:30 AM EST Ancillary Procedure [facility] [address] [place] [address] PAD (peripheral artery disease) ([facility]) from Last 3 Months Immunizations Name Administration Dates Next Due Influenza trivalent, with pr eservative (Fluzone; Afluria) 6mo and older 06/25/2005 Influenza, Unspecified 07/03/2022,08/04/2021 Pneumococcal conjugate 13 va lent (Prevnar 13, PCV13) 2mo and older 01/29/2018,07/10/2015 Pneumococcal polysaccharide 23 valent (Pneumovax 23) 2yo and older 07/04/2019 Td, Unspecified 04/12/2001 Zoster recombinant (Shingrix) 19yo and older ,01/29/2018 Surgical History Surgery Date Site/Laterality Comments KNEE ARTHROSCOPY 2009 Right PROCEDURE: CT ARTHROSCOPY KNEE DIAGNOSTIC W/WO SYNOVIAL BX SPX; COMMENT: Meniscus TURP / TRANSURETHRAL INCISIO N / DRAINAGE PROSTATE 2004 PROCEDURE: HISTORICAL TURP OTHER SURGICAL HISTORY PROCEDURE: CT DUP-SCAN LXTR ART/ARTL BPGS UNI/LMTD STUDY; COMMENT: Angioplasty and stenting of the left leg PACEMAKER IMPLANT PROCEDURE: HISTORICAL PACEMAKER COLONOSCOPY 2011 PROCEDURE: HISTORICAL COLONOSCOPY OTHER SURGICAL HISTORY PROCEDURE: CT BIOPSY OROPHARYNX; COMMENT: Throat cancer had radiation x6 weeks [facility] EYE SURGERY PROCEDURE: HISTORICAL EYE SURGERY; COMMENT: [place] TONSILLECTOMY PROCEDURE: HISTORICAL TONSILLECTOMY OTHER SURGICAL HISTORY PROCEDURE: ---- HEMORRHOIDS ---- HERNIA REPAIR Bilateral PROCEDURE: REPAIR INGUINAL HERNIA CORONARY ARTERY BYPASS GRAFT 1996 PROCEDURE: HISTORICAL CABG; COMMENT: x4 NECK SURGERY PROCEDURE: HISTORICAL NECK SURGERY CARPAL TUNNEL RELEASE Right PROCEDURE: CT NEUROPLASTY &/TRANSPOS MEDIAN NRV CARPAL TUNNE; COMMENT: dr. cazares BACK SURGERY 10/08/2022 Bilateral PROCEDURE: HISTORICAL BACK SURGERY; COMMENT: Bilateral L3, L4 and L5 radiofrequency neurotomy Dr. Sahu OTHER SURGICAL HISTORY 06/15/2023 PROCEDURE: CT SLCTV CATHJ 3RD+ ORD SLCTV ABDL PEL/LXTR BRNCH OTHER SURGICAL HISTORY 06/15/2023 PROCEDURE: CT SLCTV CATHJ EA 2ND+ ORD ABDL PEL/LXTR ART BRNCH OTHER SURGICAL HISTORY 06/15/2023 PROCEDURE: X-RAY EXAM OF ARM/LEG ARTERY OTHER SURGICAL HISTORY 06/15/2023 PROCEDURE: ULTRASOUND GUIDANCE FOR VASCULAR AC OTHER SURGICAL HISTORY 06/01/2024 PROCEDURE: CT EVASC RPR DPLMNT [id number] NDGFT OTHER SURGICAL HISTORY 06/01/2024 PROCEDURE: CT OPN ILIAC ART EXPOS PROSTH/ILIAC OCCLS EVASC UNI OTHER SURGICAL HISTORY 06/01/2024 PROCEDURE: CT PERQ ACCESS & CLOSURE FEM ART FOR DELIVERY NDGFT OTHER SURGICAL HISTORY 06/01/2024 PROCEDURE: CT REVASC INTRAVASC LITHOTRIPSY OTHER SURGICAL HISTORY 06/28/2024 Left PROCEDURE: CT BYP OTH/THN VEIN FEM-ANT TIBL PST TIBL/PRONEAL Medical History Medical History Date Comments 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 ([facility]) 08/09/2020 DX:Type 2 diabete s mellitus with neurological manifestation ([facility]) CKD (chronic kidney disease) stage 3, GFR 30-59 ml/min ([facility]) 11/06/2020 DX:CKD (chronic kidney dise ase) stage 3, GFR 30-59 ml/min ([facility]) Type 2 diabetes mellitus wit h renal manifestations ([facility]) 08/09/2020 DX:Type 2 diabetes mellitus with renal manifestations ([facility]) CAD (coronary artery disease) 08/09/2020 DX :CAD (coronary artery disease); COMMENT: Multiple stenting procedures x 5. Pacemaker 08/09/2020 DX:Pacemaker ST elevation myocardial infa rction (STEMI) ([facility]) 08/09/2020 DX:ST elevation myocardial infarction (STEMI) ([facility]) Throat cancer ([facility]) 08/09/2020 DX:Throa t cancer ([facility]); COMMENT: 2020: received RT Hyperlipidemia 08/09/2020 DX:Hyperlipidemi a HTN (hypertension) 08/09/2020 DX:HTN (hyper tension) History of diverticulitis 08/09/2020 DX:His tory of diverticulitis Peripheral vascular disease ([facility]) 08/09/2020 DX:Peripheral vascular disease ([facility]) Diabetic neuritis ([facility]) 08/09/2020 DX:D iabetic neuritis ([facility]) Gastroesophageal reflux dise ase without esophagitis 08/09/2020 DX:Gastroesophageal reflux d isease without esophagitis Anxiety 08/09/2020 DX:Anxiety 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) 11/06/2020 DX:Malignant neoplasm of rig ht vocal cord (HCC) 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 DX: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 Family History Medical History Relation Name Comments Arthritis Father at 89 Arthritis Mother at 89 Relation Name Status Comments Father Mother Social History Tobacco Use Types Packs/Day Years Used Date Smoking Tobacco: Former Cigarettes 0 10/04/1953 - 10/04/1994 Smokeless Tobacco: Never Alcohol Use Standard Drinks/Week Comments No 0 (1 standard drink = 0.6 oz pur e alcohol) Interpersonal Safety Answer Date Record ed Physical Abuse 10/26/2024 Verbal Abuse 10/26/2024 Sex and Gender Information Value Date Recorded Sex Assigned at Male 10/26/2024 4:21 PM EST Legal Sex Male 5:29 PM EST Gender Identity Male 10/26/2024 4:21 PM EST Sexual Orientation Straight 10/26/2024 4: 21 PM EST Obstetrics History Last Filed Vital Signs Vital Sign Reading Time Taken Comments Blood Pressure 120/70 11/03/2024 1:32 PM EST Pulse 72 11/03/2024 1:32 PM EST Temperature 36.9 ??C (98.4 ??F) 10/31/2024 10:[address] Respiratory Rate 16 11/03/2024 1:32 PM EST Oxygen Saturation 96% 10/31/2024 5:00 PM EST Inhaled Oxygen Concentration - - Weight 87.1 kg (192 lb) 11/03/2024 1:32 PM EST Height 177.8 cm (5' 10 ) 11/03/2024 1:32 PM EST Body Mass Index 27.55 11/03/2024 1:32 PM EST Plan of Treatment Upcoming Encounters Date Type Department Care Team (Late st Contact Info) Description 02/16/2025 11:30 AM EDT Office Visit Vascular Surgery - [place] [address] [place] [phone] Ahmet Banks MD [address] [place] [address] 05/16/2025 10:30 AM EDT Ancillary Procedure [facility] [address] [place] [address] Health Maintenance Due Date Last Done Comments Diabetes: Annual Retina Eye Exam 1950 Depression Screening 09/12/2022 Social Influencers of Health Screening 09/12/2022 COVID-19 Vaccine ( season) 2024 07/10/2022, 05/20/2021, 12/02/2020, Additional history exists Diabetes: Annual Foot Exam 09/07/2024 09/07/2023 Diabetes: Annual Urine Albumin-Creatinine Ratio (uACR) 09/08/2024 09/08/2023 Diabetes: Blood Sugar Control Test (HGBA1C) 09/21/2024 03/22/2024, 03/22/2024 Medicare Annual Wellness Visit 02/16/2025 02/17/2024 Diabetes: Annual GFR (Glomerular Filtration Rate) 10/28/2025 10/28/2024, 10/27/2024, 10/26/2024, Additional history exists Falls Risk Assessment 10/28/2025 10/28/2024 Hypertension/CHF/CAD Annual BMP Blood Test 10/28/2025 10/28/2024, 10/27/2024, 10/26/2024, Additional history exists Cholesterol Screening (Lipid Panel) 09/08/2028 09/08/2023 DTaP,Tdap,and Td Vaccines (4 - Td or Tdap) 05/15/2031 05/15/2021, 08/12/2013, 04/12/2001 Zoster Vaccines Completed 08/03/2018, 01/29/2018 Pneumococcal Vaccine: 50+ Years Completed 02/09/2023, 07/04/2019, 01/29/2018, Additional history exists RSV Immunization Patients 60+ Years Old Completed 09/28/2023 Influenza Vaccine Completed 07/21/2024, , 07/03/2022, Additional history exists HIB Vaccines Aged Out No longer eligi ble based on patient's age to complete this topic HPV Vaccines Aged Out No longer eligi ble based on patient's age to complete this topic Hepatitis A Vaccines Aged Out No long er eligible based on patient's age to complete this topic Hepatitis B Vaccines Aged Out No long er eligible based on patient's age to complete this topic IPV Vaccines Aged Out No longer eligi ble based on patient's age to complete this topic MMR Vaccines Aged Out No longer eligi ble based on patient's age to complete this topic Meningococcal ACWY Vaccine Aged Out N o longer eligible based on patient's age to complete this topic Meningococcal B Vacine Aged Out No lo nger eligible based on patient's age to complete this topic RSV Immunization Patients Under 20 months Aged Out No longer eligible based on patient's age to complete this topic Varicella Vaccines Aged Out No longer eligible based on patient's age to complete this topic Medical Devices Implanted Type Area Grout Machine Operator Device Identifier Shelf Expiration Date Model / Serial / Lot Medt-Card Kend[place] Xt Dr Artis [id number] Implanted: (Quantity not on file) Cardiac Pacemaker [employer] - CARDIAC RHYTH-CRDM KENDELL XT DR ARTIS [id number] / [id number] / Procedures Procedure Name Priority Date/Time Associated Diagnosis Comments VAS US DUPLEX LOWER EXT VENOUS BILAT Routine 11/29/2024 11:49 AM EST Acute deep vein thrombosis (DVT) of femoral vein of right lower extremity (CMS/HCC) Leg edema Bilateral leg pain VAS US DUPLEX LOWER EXT ARTERIES BILAT WITH FATMATA Routine 11/24/2024 11:06 AM EST Infrarenal abdominal aortic aneurysm (AAA) without rupture (CMS/HCC) Occlusion of arterial bypass graft, subsequent encounter Bilateral leg pain CARDIAC DEVICE CHECK- REMOTE- MURJ Routine 11/22/2024 9:36 AM EST POCT ACTIVATED CLOTTING TIME, KAOLIN Routine 10/31/2024 1:31 PM EST INVASIVE VASCULAR PROCEDURE Routine 10/31/2024 12:53 PM EST Occlusion of arterial bypass graft, initial encounter (CMS/HCC) POCT GLUCOSE BLOOD Routine 10/28/2024 11 :25 AM EST POCT GLUCOSE BLOOD Routine 10/28/2024 7: 40 AM EST CBC WITH AUTO DIFFERENTIAL Routine 10/28/2024 6:20 AM EST MAGNESIUM Timed 10/28/2024 6:20 AM EST CBC AND DIFFERENTIAL Routine 10/28/2024 6:20 AM EST BASIC METABOLIC PANEL Routine 10/28/2024 6:20 AM EST POCT GLUCOSE BLOOD Routine 10/27/2024 8: 12 PM EST TYPE AND SCREEN Routine 10/27/2024 7:01 PM EST HEMOGLOBIN AND HEMATOCRIT Timed 10/27/2024 7:01 PM EST POCT GLUCOSE BLOOD Routine 10/27/2024 3: 59 PM EST POCT GLUCOSE BLOOD Routine 10/27/2024 11 :08 AM EST POCT GLUCOSE BLOOD Routine 10/27/2024 8: 22 AM EST HEPARIN ANTI XA Routine 10/27/2024 6:29 AM EST LAVENDER - EDTA Routine 10/27/2024 6:28 AM EST SST - GOLD Routine 10/27/2024 6:28 AM EST EXTRA TUBES Routine 10/27/2024 6:28 AM EST HEPARIN ANTI XA Routine 10/27/2024 4:55 AM EST CBC WITH AUTO DIFFERENTIAL Routine 10/27/2024 2:47 AM EST CBC AND DIFFERENTIAL Routine 10/27/2024 2:47 AM EST BASIC METABOLIC PANEL Routine 10/27/2024 2:47 AM EST HEPARIN ANTI XA STAT 10/27/2024 2:47 AM EST RESPIRATORY VIRUS PANEL MOLECULAR STUDY Routine 10/27/2024 12:28 AM EST POCT GLUCOSE BLOOD Routine 10/26/2024 11 :55 PM EST POCT GLUCOSE BLOOD Routine 10/26/2024 6: 18 PM EST HEPARIN ANTI XA STAT Add-on 10/26/2024 5:50 PM EST ACTIVATED PARTIAL THROMBOPLASTIN TIME STAT 10/26/2024 5:50 PM EST CBC WITH AUTO DIFFERENTIAL STAT 10/26/2024 5:50 PM EST BASIC METABOLIC PANEL STAT 10/26/2024 5:50 PM EST CBC AND DIFFERENTIAL STAT 10/26/2024 5:50 PM EST VAS US DUPLEX LOWER EXT VENOUS RIGHT STAT 10/26/2024 4:51 PM EST Acute deep vein thrombosis (DVT) of right peroneal vein (CMS/HCC) VAS US DUPLEX LOWER EXT ARTERIES BILAT WITH FATMATA Routine 10/25/2024 12:18 PM EST PAD (peripheral artery disease) (CMS/HCC) HEMOGLOBIN A1C Routine 03/22/2024 URINE ALBUMIN CREATININE RATIO Routine 09/08/2023 LIPID PANEL Routine 09/08/2023 DIABETES FOOT EXAM Routine 09/07/2023 from Last 3 Months or Most Recently Relevant to Health Maintenance Results * Vascular US duplex lower extremity venous bilateral (11/29/2024 11:49 AM EST) Left GSK christiano 0.21 cm CV VAS LAB Left GSDC christiano 0.17 cm CV VAS LAB Left GSPC christiano 0.26 cm CV VAS LAB Left SFJ Diameter 0.76 cm CV VAS LAB Left SSMC christiano 0.16 cm CV VAS LAB Left SSPC christiano 0.29 cm CV VAS LAB Right GSDC christiano 0.17 cm CV VAS LAB Right GSPC christiano 0.12 cm CV VAS LAB Right GSPT christiano 0.30 cm CV VAS LAB Right pop reflux 450 ms CV VAS LAB Right SFJ Diameter 0.66 cm CV VAS LAB Right S[facility] christiano 0.18 cm CV VAS LAB Right SSPC christiano 0.25 cm CV VAS LAB Right SFJ Reflux Time 700 ms CV VAS LAB Right SSPC reflux 3,461 ms CV VAS LAB Right SSMC reflux 4,506 ms CV VAS LAB Anatomical Region Laterality Modality Vascular, Abdomen Ultrasound Narrative 12/01/2024 10:29 AM EST RIGHT: 1. ??The patient underwent a right lower extremity venous ultrasound on 10/26/2024 which showed a Deep vein thrombosis involving the proximal to mid femoral vein and the peroneal vein. 2. ??On the current study, there was no evidence of a deep vein thrombosis in the femoral vein. 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 3. The visualized portions of the GSV are competent. ??Of note, the GSV was not well-visualized at the lower thigh and knee levels likely secondary to a past history of an EVLT of the GSV. 4. ??The femoral vein is competent. ??The right popliteal vein has non-significant reflux. ??Of note, the right SPJ was not well-visualized. 5. ??The saphenofemoral junction and SSV have clinically significant reflux as described below. LEFT: 1. ??There is no evidence of a DVT in the left lower extremity. 2. ??The GSV was not well-visualized at the thigh level likely secondary to a past history of an EVLT. ??Of note, the left SPJ was not well-visualized on the current study. 3. ??There is no clinically significant reflux noted in the visualized veins of the left lower extremity venous system Right Lower Venous Known occlusive thrombus in one of the right mid peroneal veins. No evidence of deep vein thrombosis in the common femoral, deep femoral, proximal femoral, mid femoral, distal femoral, popliteal, greater saphenous, small saphenous, posterior tibial veins of the right leg. The vessels showed compressibility. Interrogation showed phasic and spontaneous Doppler signals. Right Venous Insufficiency Duplex The exam was performed with the patient in reverse Trendelenburg. Right saphenopopliteal junction was not identified. Left Lower Venous No evidence of deep vein thrombosis in the common femoral, deep femoral, proximal femoral, mid femoral, distal femoral, popliteal, greater saphenous, small saphenous, posterior tibial and peroneal veins of the left leg. The vessels showed compressibility. Interrogation showed phasic and spontaneous Doppler signals. Left Venous Insufficiency Duplex The exam was performed with the patient in reverse trendelenburg. Left saphenopopliteal junction was not identified. Lime Vat Tender Details A mitchell scale, color and doppler analysis ultrasound was performed. During the study longitudinal and transverse views were obtained. Continuous wave doppler and pulsed wave doppler was performed. Overall the study quality was good. us Ahmet Banks MD CV VASCULAR PROCEDURES Final Re sult * Vascular US duplex lower extremity arteries bilateral with FATMATA (11/24/2024 11:06 AM EST) Only the most recent of2 resultswithin the time period is included. Left Dist External Iliac PSV 96 cm/s CV V[facility] LAB Left Prox External Iliac PSV 106 cm/s CV VAS LAB Left AT dist sys PSV 25 cm/s CV V[facility] LAB Left AT mid sys PSV 21 cm/s CV VAS LAB Left AT prox sys PSV 28 cm/s CV VAS LAB Left STORE MERCHANDISER prox sys PSV 60 cm/s CV VAS LAB Left mid peroneal sys PSV 61 cm/s CV VAS LAB Left popliteal dist sys PSV 84 cm/s CV VAS LAB Left popliteal prox sys PSV 11 cm/s CV VAS LAB Left PT dist sys PSV 82 cm/s CV VAS LAB Left PT mid sys PSV 108 cm/s CV VAS LAB Left PT prox sys PSV 74 cm/s CV VAS LAB Left profunda sys PSV 47 cm/s CV VAS LAB Left super femoral dist sys PSV 20 cm/s CV VAS LAB Left super femoral mid sys PSV 18 cm/s CV VAS LAB Left super femoral prox sys PSV 41 cm/s CV VAS LAB Right Dist External Iliac PSV 104 cm/s CV VAS LAB Right Prox External Iliac PSV 79 cm/s CV VAS LAB Right AT dist sys PSV 117 cm/s CV VAS LAB Right AT mid sys PSV 16 cm/s CV VAS LAB Right AT prox sys PSV 19 cm/s CV VAS LAB Right STORE MERCHANDISER prox sys PSV 74 cm/s CV VAS LAB Right mid peroneal sys PSV 18 cm/s CV VAS LAB Right popliteal dist sys PSV 221 cm/s CV VAS LAB Right popliteal prox sys PSV 28 cm/s CV VAS LAB Right PT dist sys PSV 0 cm/s CV VAS LAB Right PT mid sys PSV 0 cm/s CV VAS LAB Right PT prox sys PSV 13 cm/s CV VAS LAB Right profunda sys PSV 74 cm/s CV VAS LAB Right super femoral dist sys PSV 45 cm/s CV VAS LAB Right super femoral mid sys PSV 48 cm/s CV VAS LAB Right super femoral prox sys PSV 39 cm/s CV V[facility] LAB Right arm BP 132 mmHg CV [facility] LAB Right toe pressure 23 mmHg CV V[facility] LAB Right TBI 0.17 CV V[facility] LAB Left posterior tibial 155 mmHg CV VAS LAB Left Dorsalis Pedis 146 mmHg CV VAS LAB Left FATMATA 1.17 CV VAS LAB Left toe pressure 98 mmHg CV VAS LAB Left TBI 0.74 CV VAS LAB Anatomical Region Laterality Modality Vascular, Abdomen Ultrasound Narrative 11/26/2024 10:18 AM EST ?Right mid posterior tibial artery is occluded. ?Right distal posterior tibial artery is occluded. Right: The FATMATA could not be calculated due to noncompressible vessel. ??The toe brachial index (TBI) is 0.17 which is abnormal. Monophasic pulse volume waveform at the right ankle. Severely diminished amplitude PPG waveform in the digit. There is heavily calcified atherosclerotic palque in the right lower extremity arteries. The right popliteal artery to dorsalis pedis bypass graft is known occluded at the mid segment. There is severe (50-99%) stenosis of the right popliteal artery and right anterior tibial artery distally. The right posterior tibial artery is occluded from mid segment. 2-vessel runoff is noted in the right calf. 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 Left: The FATMATA is 1.17 which is normal. ??The toe brachial index is 0.74. ?? Normal pulse volume waveform at the left ankle. Normal amplitude PPG waveform in the digit. There is severe, calcific atherosclerotic palque in the left lower extremity arteries. Patent left femoral to tibioperoneal graft. There is severe (50-99%) stenosis of left distal popliteal artery and proximal left anterior tibial artery. 3-vessel runoff is noted in the left calf. Right FATMATA Unable to obtain right FATMATA due to uncompressible arteries Right Lower Bypass Graft Graft 1: There is a known popliteal to dorsalis pedis graft present and occluded at the mid graft (See below for measurements) Prox anast: 8 cm/s Prox bypass: 15 cm/s Mid bypass: 0 cm/s Distal bypass: 6 cm/s Distal anast: 14 cm/s Outflow bypass: 80 cm/s Left FATMATA Unable to obtain left brachial BP due to diabetic sensor Left Lower Bypass Graft Graft 2: There is a patent femoral to tibialperoneal graft present. (See below for measurements) Inflow: 102 cm/s Prox anast: 71 cm/s Prox bypass: 73 cm/s Mid bypass: 84 cm/s Distal bypass: 82 cm/s Distal anast: 76 cm/s Right Lower Arterial Duplex The distal external iliac artery has triphasic flow. The common femoral artery has triphasic flow. The profunda femoris artery has triphasic flow. The proximal superficial femoral artery has biphasic flow. The mid superficial femoral artery has monophasic flow. The distal superficial femoral artery has monophasic flow. The popliteal artery has monophasic flow. The anterior tibial artery has monophasic flow. The proximal posterior tibial artery has monophasic flow. The mid posterior tibial artery is occluded. The distal posterior tibial artery is occluded. The mid peroneal artery has monophasic flow. Known he mid peroneal vein thrombosis. Left Lower Arterial Duplex The distal external iliac artery has triphasic flow. The common femoral artery has biphasic flow. The profunda femoris artery has biphasic flow. The superficial femoral artery has biphasic flow. The popliteal artery has biphasic flow. The anterior tibial artery has biphasic flow. The posterior tibial artery has biphasic flow. The mid peroneal artery has triphasic flow. Lime Vat Tender Details A mitchell scale, color and doppler analysis ultrasound was performed. During the study longitudinal and transverse views were obtained. Continuous wave doppler and pulsed wave doppler was performed. Overall the study quality was technically difficult. Study was technically difficult due to: acoustic shadowing and patient uncooperative. us Ahmet Banks MD CV VASCULAR PROCEDURES Final Re sult * Cardiac device check - Remote- MURJ (11/22/2024 9:36 AM EST) Date Time Interrogation Session [id number] CV DEVICE CHECK Type Interrogation Session Remote CV DEVICE CHECK Implantable Pulse Generator Grout Machine Operator MDT CV DEVICE CHECK Implantable Pulse Generator Type IPG CV DEVICE CHECK Implantable Pulse Generator Model New Point XT DR MRI [id number] CV DEVICE CHECK Implantable Pulse Generator Serial Number [id number] CV DEVICE CHECK Implantable Pulse Generator Implant Date [id number] CV DEVICE CHECK Battery Remaining Longevity 106.0 CV DEVICE CHECK Battery Voltage 3.000 CV D EVICE CHECK 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 2.625 CV DEVICE CHECK Battery Status Middle of Service CV DEVICE CHECK Jag Statistic RA Percent Paced 99.51 CV DEVICE CHECK Jag Statistic RV Percent Paced 99.53 CV DEVICE CHECK Atrial Tachy Statistic AT/AF Webster Percent 0.00 CV DEVICE CHECK Lead Channel Sensing Intrinsic Amplitude 1.875 CV DEVICE CHECK Lead Channel Setting Sensing Sensitivity 0.30 CV DEVICE CHECK Lead Channel Impedance Value 380 CV DEVICE CHECK Lead Channel Pacing Threshold Amplitude 0.750 CV DEVICE CHECK Lead Channel Pacing Threshold Pulse Width 0.4 CV DEVICE CHECK Lead Channel RA Pacing Threshold Date 2024-11-12 CV DEVICE CHECK Lead Channel Setting Pacing Amplitude 1.500 CV DEVICE CHECK Lead Channel Setting Pacing Pulse Width 0.4 CV DEVICE CHECK Lead Channel Sensing Intrinsic Amplitude 3.500 CV DEVICE CHECK Lead Channel Setting Sensing Sensitivity 1.20 CV DEVICE CHECK Lead Channel Impedance Value 475 CV DEVICE CHECK Lead Channel Pacing Threshold Amplitude 0.875 CV DEVICE CHECK Lead Channel Pacing Threshold Pulse Width 0.4 CV DEVICE CHECK Lead Channel RV Pacing Threshold Date 2024-11-15 CV DEVICE CHECK Lead Channel Setting Pacing Amplitude 2.000 CV DEVICE CHECK Lead Channel Setting Pacing Pulse Width 0.4 CV DEVICE CHECK Jag Setting Mode (NBG Code) DDD CV DEVICE CHECK Jag Setting Lower Rate Limit 70 CV DEVICE CHECK Jag Setting AT Mode Switch Rate 171 CV DEVICE CHECK Jag Setting Maximum Tracking Rate 130 CV DEVICE CHECK Jag Setting Maximum Sensor Rate 130 CV DEVICE CHECK Jag Setting PAV Delay 250 CV DEVICE CHECK Jag Setting ALOK Delay 180 CV DEVICE CHECK Zone Setting Type Category AT/AF CV DEVICE CHECK Rate 171 CV DEVICE CHECK Therapies Some Rx Off CV DEVIC E CHECK Zone Setting Status Monitor CV DEVICE CHECK Zone ID 2 CV DEVICE CHECK Zone Setting Type Category VT CV DEVICE CHECK Rate 150 CV DEVICE CHECK Zone Setting Status ENABLED CV DEVICE CHECK Zone ID 6 CV DEVICE CHECK Date of Service 2024-11-26 CV DEVICE CHECK Anatomical Region Laterality Modality Device Interroga tion 11/15/2024 2:07 PM EST Impressions 11/22/2024 9:31 AM EST Normal Remote: No Events * Normal Device Function * Alerts or events: None * Battery: OK, 8.83 yrs * Sensing, impedance and thresholds reviewed * Programmed parameters reviewed * Presenting rhythm reviewed * Heart Rate Histograms reviewed * No significant changes noted Narrative Procedure Note Katia Proctor MD - 11/22/2024 IMPRESSION: Normal Remote: No Events * Normal Device Function * Alerts or events: None * Battery: OK, 8.83 yrs * Sensing, impedance and thresholds reviewed * Programmed parameters reviewed * Presenting rhythm reviewed * Heart Rate Histograms reviewed * No significant changes noted Katia Proctor MD CV IMPLANTABLE CARDIAC DEV ICE PROCEDURES Final Result * (ABNORMAL) POCT activated clotting time,kabeulah (10/31/2024 1:31 PM EST) Activated Clotting Time Kaolin 176(H) 74 - 137 sec 10/31/2024 1:33 PM EST [facility] Blood Arterial blood specimen / Unknown 10/31/2024 1:31 PM EST 10/31/2024 1:34 PM EST Ahmet Banks MD LAB POINT OF CARE TE ST DOCKED DEVICE UNSOLICITED RESULTS Final Result [facility]) [facility] [address] [place] [address], [place] [phone] * ANGIOGRAPHY LOWER EXT RIGHT (10/31/2024 12:53 PM EST) Anatomical Region Laterality Modality X-Ray Angiograph y Narrative 11/01/2024 8:58 AM EST Per op note Study Details Per op note Clinical Background Per op note Procedure Details Per op note Andie CHACON CV INVASIVE VASCULAR PROCEDURE S Final Result * (ABNORMAL) POCT Glucose, blood (10/28/2024 11:25 AM EST) Only the most recent of8 resultswithin the time period is included. [facility] Glucose POCT 101(H) 70 - 100 mg/dL 10/28/2024 11:26 AM EST [facility] Blood Capillary blood specimen / Unknown 10/28/2024 11:25 AM EST 10/28/2024 11:27 AM EST Francisco Calixto MD LAB POINT O F CARE TEST DOCKED DEVICE UNSOLICITED RESULTS Final Result [facility] [address] [place] [address], [place] [phone] * (ABNORMAL) CBC auto differential (10/28/2024 6:20 AM EST) Only the most recent of3 resultswithin the time period is included. [facility] WBC 6.9 4.8 - 10.8 K/mcL LAB HEMETOLOGY METHOD 10/28/2024 7:47 AM [facility] RBC 3.00(L) 4.50 - 5.50 M/mcL LAB HEMETOLOGY METHOD 10/28/2024 7:47 AM [facility] Hemoglobin 10.0(L) 13.5 - 17.5 g/dL LAB HEMETOLOGY METHOD 10/28/2024 7:47 AM [facility] Hematocrit 31.2(L) 42.0 - 54.0 % LAB HEMETOLOGY METHOD 10/28/2024 7:47 AM [facility] MCV 105.1(H) 79.0 - 98.0 FL LAB HEMETOLOGY METHOD 10/28/2024 7:47 AM [facility] MCH 33.7(H) 27.0 - 32.0 pcg LAB HEMETOLOGY METHOD 10/28/2024 7:47 AM [facility] MCHC 32.1 32.0 - 37.0 g/dL LAB HEMETOLOGY METHOD 10/28/2024 7:47 AM [facility] RDW 15.6(H) 11.0 - 15.0 % LAB HEMETOLOGY METHOD 10/28/2024 7:47 AM [facility] Platelets 188 130 - 400 K/mcL LAB HEMETOLOGY METHOD 10/28/2024 7:47 AM [facility] MPV 10.2 7.0 - 11.0 FL LAB HEMETOLOGY METHOD 10/28/2024 7:47 AM [facility] NRBC 0.0 <1.0 % LAB HEMETOLOGY METHOD 10/28/2024 7:47 AM [facility] NRBC Absolute 0.00 <0.10 K/mcL LAB HEMETOLOGY METHOD 10/28/2024 7:47 AM [facility] Neutrophils Relative 53.6 % LAB HEMETOLOGY METHOD 10/28/2024 7:47 AM [facility] Lymphocytes Relative 28.4 % LAB HEMETOLOGY METHOD 10/28/2024 7:47 AM [facility] Monocytes Relative 13.4 % LAB HEMETOLOGY METHOD 10/28/2024 7:47 AM [facility] Eosinophils Relative 3.9 % LAB HEMETOLOGY METHOD 10/28/2024 7:47 AM [facility] Basophils Relative 0.4 % LAB HEMETOLOGY METHOD 10/28/2024 7:47 AM EST [facility] Immature Granulocytes Relative 0.3 % LAB HEMETOLOGY METHOD 10/28/2024 7:47 AM EST [facility] Neutrophils Absolute 3.67 1.50 - 7.00 K/mcL LAB HEMETOLOGY METHOD 10/28/2024 7:47 AM EST [facility] Lymphocytes Absolute 1.95 1.00 - 5.00 K/mcL LAB HEMETOLOGY METHOD 10/28/2024 7:47 AM [facility] Monocytes Absolute 0.92 0.20 - 1.00 K/mcL LAB HEMETOLOGY METHOD 10/28/2024 7:47 AM [facility] Eosinophils Absolute 0.27 0.00 - 0.50 K/mcL LAB HEMETOLOGY METHOD 10/28/2024 7:47 AM EST [facility] Basophils Absolute 0.03 0.00 - 0.20 K/mcL LAB HEMETOLOGY METHOD 10/28/2024 7:47 AM [facility] Immature Granulocytes Absolute 0.02 0.00 - 0.03 K/mcL LAB HEMETOLOGY METHOD 10/28/2024 7:47 AM [facility] Blood Venous blood specimen / Unknown Venipuncture / Unknown 10/28/2024 6:20 AM EST 10/28/2024 7:00 AM EST Mago CHACON LAB BLOOD ORDERABLES Final Result [facility] [address] [place] [address], * Magnesium (10/28/2024 6:20 AM EST) Magnesium 2.2 1.9 - 2.6 mg/dL LAB CHEMISTRY METHOD 10/28/2024 7:52 AM EST [facility] Blood Venous blood specimen / Unknown Venipuncture / Unknown 10/28/2024 6:20 AM EST 10/28/2024 7:00 AM EST Mago CHACON LAB BLOOD ORDERABLES Final Result [facility] [address] [place] [address], * (ABNORMAL) Basic metabolic panel (10/28/2024 6:20 AM EST) Only the most recent of3 resultswithin the time period is included. Sodium 143 133 - 145 mmol/L LAB CHEMISTRY METHOD 10/28/2024 7:52 AM [facility] Potassium 4.0 3.5 - 5.5 mmol/L LAB CHEMISTRY METHOD 10/28/2024 7:52 AM [facility] Chloride 114(H) 96 - 110 mmol/L LAB CHEMISTRY METHOD 10/28/2024 7:52 AM [facility] CO2 23 21 - 32 mmol/L LAB CHEMISTRY METHOD 10/28/2024 7:52 AM [facility] Anion Gap 6 3 - 11 LAB CHEMISTRY METHOD 10/28/2024 7:52 AM [facility] Glucose 107(H) 70 - 100 mg/dL LAB CHEMISTRY METHOD 10/28/2024 7:52 AM [facility] BUN 24 5 - 25 mg/dL LAB CHEMISTRY METHOD 10/28/2024 7:52 AM [facility] Creatinine 1.58(H) 0.70 - 1.30 mg/dL LAB CHEMISTRY METHOD 10/28/2024 7:52 AM [facility] eGFR 43(L) >=60 mL/min/1. 73m2 LAB CHEMISTRY METHOD 10/28/2024 7:52 AM [facility] Comment:Calculation based on the??Chronic Kidney Disease Epidemiology Collaboration (CKD-EPI) equation refit??without adjustment for race. BUN/Creatinine Ratio 15.2 LAB CHEMISTRY METHOD 10/28/2024 7:52 AM [facility] Calcium 8.4(L) 8.5 - 10.5 mg/dL LAB CHEMISTRY METHOD 10/28/2024 7:52 AM [facility] Blood Venous blood specimen / Unknown Venipuncture / Unknown 10/28/2024 6:20 AM EST 10/28/2024 7:00 AM EST Mago CHACON LAB BLOOD ORDERABLES Final Result Performing Organization Address [facility]/ZIP Co de Phone Number [facility] [address] [place] [address], [place] [phone] * (ABNORMAL) Hemoglobin and hematocrit (10/27/2024 7:01 PM EST) Hemoglobin 9.9(L) 13.5 - 17.5 g/dL LAB HEMETOLOGY METHOD 10/27/2024 7:24 PM [facility] Hematocrit 30.7(L) 42.0 - 54.0 % LAB HEMETOLOGY METHOD 10/27/2024 7:24 PM [facility] Blood Venous blood specimen / Unknown Venipuncture / Unknown 10/27/2024 7:01 PM EST 10/27/2024 7:20 PM EST Mago CHACON LAB BLOOD ORDERABLES Final Result [facility] [address] [place] [address], [place] [phone] * Type and screen (10/27/2024 7:01 PM EST) ABO Group O 10/27/2024 8:35 PM EST [facility] Rh Type Positive 10/27/2024 8:35 PM EST [facility] Antibody Screen Negative 10/27/2024 8:35 PM EST [facility] Blood Venous blood specimen / Unknown Venipuncture / Unknown 10/27/2024 7:01 PM EST 10/27/2024 7:20 PM EST Mago CHACON LAB BLOOD BANK TEST ORDERA BLES Final Result Performing Organization Address [facility]/ZIP Co de Phone Number [facility] [address] [place] [address], [place] [phone] * (ABNORMAL) Heparin and low molecular weight anti Xa level (10/27/2024 6:29 AM EST) Only the most recent of4 resultswithin the time period is included. Heparin Anti-Xa 0.84(H) 0.30 - 0.70 I Unit/mL LAB COAGULATION METHOD 10/27/2024 7:21 AM EST [facility] Blood Venous blood specimen / Unknown Venipuncture / Unknown 10/27/2024 6:29 AM EST 10/27/2024 6:54 AM EST Narrative [facility] - 10/27/2024 7:21 AM EST Therapeutic range listed is for Unfractionated Heparin. LMW Heparin therapeutic range: 0.50-1.20 IU/mL Cezar Chan MD LAB BLOOD ORDERABLES Final Result Performing Organization Address [facility]/ZIP Co de Phone Number [facility] [address] [place] [address], [place] [phone] * SST tube (10/27/2024 6:28 AM EST) Extra Tube Hold for add-ons. 10/27/2024 8:01 AM EST [facility] Comment:Auto resulted. Blood Venous blood specimen / Unknown Venipuncture / Unknown 10/27/2024 6:28 AM EST 10/27/2024 6:55 AM EST us Francisco Calixto MD LAB BLOOD ORDERABLE S Final Result [facility] [address] [place] [address], [place] [phone] * Lavender tube (10/27/2024 6:28 AM EST) [facility] Extra Tube Hold for add-ons. 10/27/2024 8:01 AM EST [facility] Comment:Auto resulted. Blood Venous blood specimen / Unknown Venipuncture / Unknown 10/27/2024 6:28 AM EST 10/27/2024 6:55 AM EST us Francisco Calixto MD LAB BLOOD ORDERABLE S Final Result Performing Organization Address City/[facility]/ZIP Co de Phone Number [facility] [address] [place] [address], [place] [phone] * (ABNORMAL) Respiratory virus panel molecular study (10/27/2024 12:28 AM EST) [facility] Adenovirus Detection by PCR Not Detected Not Detected LAB MICROBIOLOGY METHOD 10/27/2024 1:34 AM [facility] Influenza A PCR Not Detected Not Detected LAB MICROBIOLOGY METHOD 10/27/2024 1:34 AM [facility] Influenza B PCR Not Detected Not Detected LAB MICROBIOLOGY METHOD 10/27/2024 1:34 AM [facility] Coronavirus 229E Not Detected Not Detected LAB MICROBIOLOGY METHOD 10/27/2024 1:34 AM [facility] Coronavirus HKU1 Not Detected Not Detected LAB MICROBIOLOGY METHOD 10/27/2024 1:34 AM EST [facility] Coronavirus OC43 Not Detected Not Detected LAB MICROBIOLOGY METHOD 10/27/2024 1:34 AM [facility] Coronavirus NL63 Not Detected Not Detected LAB MICROBIOLOGY METHOD 10/27/2024 1:34 AM [facility] Parainfluenza Virus 1 Not Detected Not Detected LAB MICROBIOLOGY METHOD 10/27/2024 1:34 AM [facility] Parainfluenza Virus 2 Not Detected Not Detected LAB MICROBIOLOGY METHOD 10/27/2024 1:34 AM [facility] Parainfluenza Virus 3 Not Detected Not Detected LAB MICROBIOLOGY METHOD 10/27/2024 1:34 AM [facility] Parainfluenza Virus 4 Not Detected Not Detected LAB MICROBIOLOGY METHOD 10/27/2024 1:34 AM [facility] RSV PCR Not Detected Not Detected LAB MICROBIOLOGY METHOD 10/27/2024 1:34 AM [facility] Human Metapneumovirus A and B Detected(A ) Not Detected LAB MICROBIOLOGY METHOD 10/27/2024 1:34 AM [facility] Rhinovirus/Entero virus Not Detected Not Detected LAB MICROBIOLOGY METHOD 10/27/2024 1:34 AM [facility] Bordetella pertussis Not Detected Not Detected LAB MICROBIOLOGY METHOD 10/27/2024 1:34 AM [facility] Bordetella parapertussis Not Detected Not Detected LAB MICROBIOLOGY METHOD 10/27/2024 1:34 AM [facility] Mycoplasma pneumo by PCR Not Detected Not Detected LAB MICROBIOLOGY METHOD 10/27/2024 1:34 AM [facility] Chlamydia pneumoniae Not Detected Not Detected LAB MICROBIOLOGY METHOD 10/27/2024 1:34 AM [facility] SARS COV-2 Not Detected Not Detected LAB MICROBIOLOGY METHOD 10/27/2024 1:34 AM [facility] Swab Structure of right anterior naris / Unknown Non-blood Collection / Unknown 10/27/2024 12:28 AM EST 10/27/2024 12:41 AM EST Narrative [facility] - 10/27/2024 1:34 AM EST Testing was performed using the [employer] Respiratory Pathogen PCR Assay. All results must be correlated with the clinical findings. Results should not be used as the sole basis for diagnosis. False Negative results may occur from the presence of sequence variants in the region targeted by the assay or the presence of inhibitors. Results may be affected by concurrent antiviral/antimicrobial therapy or levels of organisms that are below the limit of detection. us Brisa CHACON LAB MICROBIOLOGY - GENERAL OR DERABLES Final Result Performing Organization Address [facility]/ZIP Co de Phone Number [facility] [address] [place] [address], [place] [phone] * (ABNORMAL) APTT (10/26/2024 5:50 PM EST) aPTT 52.5(H) 24.1 - 39.3 sec LAB COAGULATION METHOD 10/26/2024 6:28 PM EST [facility] Blood Venous blood specimen / Unknown Venipuncture / Unknown 10/26/2024 5:50 PM EST 10/26/2024 6:03 PM EST us Maximus Goins MD LAB BLOOD ORDERABLES Final Resu lt Performing Organization Address [facility]/ZIP Co de Phone Number [facility] [address] [place] [address], [place] [phone] * Vascular US duplex lower extremity venous right (10/26/2024 4:51 PM EST) Anatomical Region Laterality Modality Vascular, Abdomen Ultrasound 10/26/2024 4:59 PM EST Narrative 10/26/2024 5:00 PM EST INDICATION: leg pain and swelling. FINDINGS: A duplex venous ultrasound was performed of the right lower extremity. Occlusive thrombus noted within the proximal to mid femoral vein. Patent common femoral vein as well as popliteal vein. Nonocclusive thrombus suspected within a peroneal vein. CONCLUSION: Deep vein thrombosis within the right lower extremity as detailed above. -------- FINAL REPORT -------- Dictated By: Tacho Doyle Dictated Date: 10/26/2024 16:59 ET Assigned Physician: Tacho Doyle Reviewed and Electronically Signed By: Tacho Doyle Signed Date: 10/26/2024 17:00 ET Workstation ID: [id number] Transcribed By: Self Edit Transcribed Date: 10/26/2024 16:59 ET Procedure Note Tacho Doyle MD - 10/26/2024 INDICATION: leg pain and swelling. FINDINGS: A duplex venous ultrasound was performed of the right lowerextremity. Occlusive thrombus noted within the proximal to mid femoral vein. Patentcommon femoral vein as well as popliteal vein. Nonocclusive thrombussuspected within a peroneal vein. CONCLUSION: Deep vein thrombosis within the right lower extremity as detailed above. -------- FINAL REPORT -------- Dictated By: Tacho Doyle Dictated Date: 10/26/2024 16:59 ET Assigned Physician: Tacho Doyle Reviewed and Electronically Signed By: Tacho Doyle Signed Date: 10/26/2024 17:00 ET Workstation ID: [id number] Transcribed By: Self Edit Transcribed Date: 10/26/2024 16:59 ET Andie CHACON CV VASCULAR PROCEDURES Final R esult * Hemoglobin A1c (03/22/2024) [facility] Hemoglobin A1C 6.4 <=6.5 % Blood Venous blood specimen / Unknown Historical Provider LAB BLOOD ORDERABLES Rosa Isela l Result * Urine Albumin Creatinine Ratio (09/08/2023) [facility] Urine Albumin Creatinine Ratio Abstracted Historical Provider HEALTH MAINTENANCE Final Result * (ABNORMAL) Lipid panel (09/08/2023) LDL/HDL Ratio 4 0 - 4 Triglycerides 249(A) 0 - 150 mg/dL Cholesterol 130 0 - 200 mg/dL HDL 34(A) >=40 mg/dL LDL Cholesterol 47 0 - 100 mg/dL Blood Venous blood specimen / Unknown Historical Provider LAB BLOOD ORDERABLES Rosa Isela l Result * Diabetes Foot Exam (09/07/2023) Pathologist [facility] Diabetes: Annual Foot Exam Abstracted Historical Provider HEALTH MAINTENANCE Final Result from Last 3 Months or Most Recently Relevant to Health Maintenance Additional Health Concerns Infection Onset Date Last Indicated Human Metapneumovirus 10/27/2024 10/27/2024 Insurance MEDICARE [facility] Advance Directives Documents on File Type Date Recorded 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 Do not modify or discontinue any currently active code status orders. * Full Code - Default Date Activated Date Inactivated Comments 10/31/2024 9:49 AM 10/31/2024 2:04 PM This is orde r is used when code status has not been discussed with the patient, or code status is otherwise unknown/unconfirmed To update the patient's code status, place a code status order. Do not modify or discontinue any currently active code status orders. * No CPR/Do Not Intubate Date Activated Date Inactivated Comments 10/27/2024 12:07 AM 10/28/2024 3:27 PM This code s tatus was ascertained in the following way: Code status discussion: discussion with patient To update the patient's code status, place a code status order. Do not modify or discontinue any currently active code status orders. * Full Code - Default Date Activated Date Inactivated Comments 10/26/2024 11:29 PM 10/27/2024 12:07 AM This is or trip is used when code status has not been discussed with the patient, or code status is otherwise unknown/unconfirmed To update the patient's code status, place a code status order. Do not modify or discontinue any currently active code status orders. Care Teams Felt Cutting Machine Operator Relationship Specialty Start Date End Date Marni Ferguson MD [address] [place] [phone] PCP - General Internal Medicine 10/26/24
--- OUTSIDE RECORDS SUMMARY | 2024-12-01 14:53 | XMS_ITS | Clinical Summary ---
Author Organization [facility] Address [address] [place] [address] Phone Care Team Providers Care Plate Embosser Name Role Phone [facility] Primary Care Provider [phone] Allergies Active Allergy Reactions Criticality Noted Date Comments Iodinated Contrast Media 07/02/2020 Sulfamethoxazole-Trimethoprim Other (see comments) 12/29/2017 Tetracyclines & Related Other (see comments) Medications aspirin (ST TED) 81 MG EC tablet Take 1 tablet by mouth 1 (one) time each day Active atenolol (TENORMIN) 50 MG tablet Take 1 tablet by mouth 1 (one) time each day Active atorvastatin (LIPITOR) 80 MG tablet Take 1 tablet by mouth 1 (one) time each day Active cyanocobalamin (VITAMIN B-12) 1000 MCG tablet Take 1 tablet by mouth 1 (one) time each day Active fenofibrate (TRICOR) 145 MG tablet Take 1 tablet by mouth 1 (one) time each day Active insulin detemir (Levemir FlexTouch) 100 UNIT/ML injection Inject under the skin every night Active LORazepam (ATIVAN) 0.5 MG tablet Take 1 tablet by mouth 1 (one) time each day Active nitroglycerin (NITROSTAT) 0.[address] 1 tablet under the tongue 1 (one) time each day Active NovoLOG FLEXPEN 100 UNIT/ML injection INJET 5 UNITS SUBCUTANEOUSLY 3 TIMES A DAY 1 Active lansoprazole (PREVACID) [address] capsule Take 1 capsule by mouth 1 (one) time each day 1 Active Dulaglutide (Trulicity) 0.75 MG/0.5ML solution pen-injector Inject under the skin Active furosemide (LASIX) 20 MG tablet Take 1 tablet (20 mg total) by mouth 1 (one) time each day 180 tablet 1 5 026 Active Active Problems Problem Noted Date Diagnosed Date Malignant neoplasm of pharynx 07/07/2023 History of diverticulitis 07/07/20232022 Gastroesophageal reflux disease 07/07/2023 07/07/2023 Neuropathy due to diabetes mellitus 07/07/2023 Cardiac pacemaker in situ 07/07/20232022 Anxiety 07/07/2023 07/07/2023 History of myocardial infarction 07/07/2023 07/07/2023 Stage 3b chronic kidney disease 07/07/2023 Type 2 diabetes mellitus wit h diabetic chronic kidney disease 07/07/2023 Renal osteodystrophy 07/07/2023 Abdominal aortic aneurysm 04/29/2022 Acute hypoxemic respiratory failure 04/29/2022 Bacterial pneumonia 04/29/2022 Obese class I 04/29/2022 Gastrointestinal hemorrhage 12/17/2021 Neuropathy 12/17/2021 Hypertension 12/17/2021 Stage 3a chronic kidney disease 12/18/2020 Hypertensive renal disease 12/18/2020 Essential hypertension 12/30/2017 Overview (12/18/2020): Last Assessment & Plan: Mildly elevated and I have asked him to increase his Benicar to 10 mg. Resolved Problems Problem Noted Date Diagnosed Date Resolved Date Localized edema 08/07/2020 12/18/2020 Overview (12/18/2020): Last Assessment & Plan: Etiology is unclear. Albumin is okay and there is no evidence of nephrotic syndrome. His pulmonary hypertension is mild and not nearly severe enough to produce peripheral edema with right heart failure. I have asked him to complete his venous study to see if venous reflux is an explanation. Dyspnea on exertion 06/05/2020 12/19/19 Overview (12/18/2020): Last Assessment & Plan: Etiology unclear. I will have a proBNP drawn in a month when he returns. Arteriosclerosis of coronary artery bypass graft 12/30/2017 12/18/2020 Overview (12/18/2020): 1996 CABG X 4 02/2009 PCI KAVITA SVG RCA; TO SVG LADD1 03/2011 PCI KAVITA SVG RCA 12/2014 PCI KAVITA SVG Cfx 05/2016 TO SVG RCA; NATIVES TO; SVG-OM/MARTEL-LAD OK Last Assessment & Plan: Clinically stable and has no angina. Recent nuclear stress testing revealed only the old infarct. No areas at risk. H/O: cardiac pacemaker in situ 12/30/2017 12/18/2020 Overview (12/18/2020): Last Assessment & Plan: Full interrogation today. No significant mode switches and device is functioning normally. Full report under separate cover. Mixed hyperlipidemia 12/30/2017 021 Overview (12/18/2020): Last Assessment & Plan: High-dose statin unchanged. Peripheral vascular disease 12/30/2017 12/18/2020 Overview (12/18/2020): 09/2010 POP-ANT TIB BYPASS DOUG Last Assessment & Plan: Exam is unchanged. He has minimal edema worse on the left. He is not wearing compression stockings but does at least attempt to get his legs up during the day. No dramatic change. Sick sinus syndrome 12/30/2017 12/19/19 21 Overview (12/18/2020): 1998 DDD 06/2013 BATTERY CHANGE Last Assessment & Plan: We will continue to check his device routinely. Type 2 diabetes mellitus 12/30/2017 Encounters Date Type Department Care Team Description 10/09/2024 Refill [facility] [address] [address] [address] [place] [address] Rosita Hines MA from Last 3 Months Immunizations Name Administration Dates Next Due Pfizer SARS-COV-2 05/20/2021,12/02/2020,11/10/19 21 Pneumococcal Conjugate 13-Valent 01/29/2018,10/0 04/2015 Pneumococcal Polysaccharide 07/04/2019 Shingrix 08/03/2018,01/29/2018 Td, Unspecified 04/12/2001 Tdap 05/15/2021,08/12/2013 Social History Tobacco Use Types Packs/Day Years Used Date Smoking Tobacco: Never Smokeless Tobacco: Never Tobacco Cessation:Counseling Given: Not Answered Alcohol Use Standard Drinks/Week Comments No 0 (1 standard drink = 0.6 oz pur e alcohol) Sex and Gender Information Value Date Recorded Sex Assigned at Not on file Legal Sex Male 4:56 PM EST Gender Identity Not on file Sexual Orientation Not on file Last Filed Vital Signs Vital Sign Reading Time Taken Comments Blood Pressure 124/65 07/07/2023 1:58 PM EDT Pulse 71 07/07/2023 1:58 PM EDT Temperature - - Respiratory Rate - - Oxygen Saturation 96% 07/07/2023 1:58 PM EDT Inhaled Oxygen Concentration - - Weight 89.8 kg (198 lb) 03/03/2023 2:08 PM EDT Height 175.3 cm (5' 9 ) 10/23/2020 12:00 PM EST Body Mass Index 29.24 10/23/2020 12:00 PM EST Plan of Treatment Health Maintenance Due Date Last Done Comments Diabetes: Hemoglobin A1C 07/07/2023 Diabetes: Ophthalmology Exam 07/07/2023 Diabetes: Pedal Pulse Checked 07/07/2023 Diabetes: Sensory Foot Exam 07/07/2023 Diabetes: Visual Foot Exam 07/07/2023 Influenza Vaccine (#1) 2024 Pneumococcal Vaccine: 65+ Years Completed 07/04/2019, 01/29/2018, 07/10/2015 Hepatitis B Vaccine Aged Out No longe r eligible based on patient's age to complete this topic Insurance UNICARE MEDICARE UNICARE MEDICARE Care Teams Plate Embosser Relationship Specialty Start Date End Date [facility] Grewal [address] [place] [address] PCP - General 03/03/23
--- OUTSIDE RECORDS SUMMARY | 2024-12-01 14:53 | XMS_ITS | Encounter Summary ---
Author Organization [facility] Address [address] [place] [address] Care Team Providers Care Oiler Bander Name Role Phone Marni Ferguson MD Primary Care Provider [phone] Reason for Visit * Imaging (Routine) - Authorized Specialty Diagnoses / Procedures Referred By Dinah t Referred To Contact Diagnoses Acute deep vein thrombosis (DVT) of femoral vein of right lower extremity (CMS/HCC) Leg edema Bilateral leg pain Procedures Vascular US duplex lower extremity venous bilateral Ahmet Banks MD [address] [place] [address] Phone: tel: fax: [facility] Referral ID Status Reason Start Date Expiration Date V isits Requested Visits Authorized [id number] Authorized 11/03/2024 11/03/2025 1 1 Encounter Details Date Type Department Care Team (Latest Contact Info) Description 11/29/2024 10:30 AM EST Ancillary Procedure [facility] - [address] [place] [address] Acute deep vein thrombosis (DVT) of femoral vein of right lower extremity (CMS/HCC); Leg edema; Bilateral leg pain Social History Tobacco Use Types Packs/Day Years [...] Orientation Straight 10/26/2024 4: 21 PM EST documented as of this encounter Plan of Treatment Upcoming Encounters Date Type Department Care Team (Late st Contact Info) Description 02/16/2025 11:30 AM EDT Office Visit Vascular Surgery - [place] [address] [place] [address] Ahmet Banks MD [address] [place] [address] 05/16/2025 10:30 AM EDT Ancillary Procedure [facility] - [address] [place] [address] documented as of this encounter Procedures Procedure Name Priority Date/Time Associated Diagnosis Comments VAS US DUPLEX LOWER EXT VENOUS BILAT Routine 11/29/2024 11:49 AM EST Acute deep vein thrombosis (DVT) of femoral vein of right lower extremity (CMS/HCC) Leg edema Bilateral leg pain documented in this encounter Results * Vascular US duplex lower extremity [...] trendelenburg. Left saphenopopliteal junction was not identified. Embossing Toolsetter Details A mitchell scale, color and doppler analysis ultrasound was performed. During the study longitudinal and transverse views were obtained. Continuous wave doppler and pulsed wave doppler was performed. Overall the study quality was good. us Ahmet Banks MD CV VASCULAR PROCEDURES Final Re sult documented in this encounter Visit Diagnoses Diagnosis Acute deep vein thrombosis (DVT) of femoral vein of right lower extremity (CMS/HCC) Leg edema Edema Bilateral leg pain Pain in soft tissues of limb Encounter for adjustment or management of cardiac device documented in this encounter Additional Health Concerns Infection Onset Date Last Indicated Resolved Time Human Metapneumovirus 10/27/2024 10/27/2024 documented as of this encounter Care Teams Oiler Bander Relationship Specialty Start Date End Date Marni Ferguson MD [address] [place] [phone] PCP - General Internal Medicine 10/26/24 documented as of this encounter
--- OUTSIDE RECORDS SUMMARY | 2024-12-01 14:53 | XMS_ITS | Encounter Summary ---
Author Organization [facility] [place] [address] Care Team Providers Care Sexologist Name Role Phone Marni Ferguson MD Primary Care Provider [phone] Encounter Details Date Type Department Care Team (Late Contact Info) Description 11/22/2024 9:40 AM EST Ancillary Procedure [facility] [address] [facility] [address] [place] [phone] Social History Tobacco Use Types Packs/Day Years [...] AM EDT Office Visit Vascular Surgery - [place] [address] [place] [address] Ahmet Banks MD [address] [facility] [address] [place] [address] 05/16/2025 10:30 AM EDT Ancillary Procedure [facility] - [address] [place] [address] documented as of this encounter Procedures Procedure Name Priority Date/Time Associated Diagnosis Comments CARDIAC DEVICE CHECK- REMOTE- MURJ Routine 11/22/2024 9:36 AM EST documented in this encounter Results * Cardiac device check - Remote- MURJ (11/22/2024 9:36 AM EST) Date Time Interrogation Session [id number] CV DEVICE CHECK Type Interrogation Session Remote CV DEVICE CHECK Implantable Pulse Generator Field Crop Farmworker MDT CV DEVICE CHECK Implantable Pulse Generator Type IPG CV DEVICE CHECK Implantable Pulse Generator Model Wye XT DR LAMA [id number] CV DEVICE CHECK Implantable Pulse Generator Serial Number [id number] CV DEVICE CHECK Implantable Pulse Generator Implant Date [id number] CV DEVICE CHECK Battery Remaining Longevity 106.0 CV DEVICE CHECK Battery Voltage 3.000 CV D EVICE CHECK Battery TALENT COORDINATOR Trigger 2.625 CV DEVICE CHECK Battery Status Middle of Service CV DEVICE CHECK Jag Statistic RA Percent Paced 99.51 CV DEVICE CHECK Jag Statistic RV Percent Paced 99.53 CV DEVICE CHECK Atrial Tachy Statistic AT/AF Disputanta Percent 0.00 CV DEVICE CHECK Lead Channel [...] IMPLANTABLE CARDIAC DEV ICE PROCEDURES Final Result documented in this encounter Visit Diagnoses Not on filedocumented in this encounter Additional Health Concerns Infection Onset Date Last Indicated Resolved Time Human Metapneumovirus 10/27/2024 10/27/2024 documented as of this encounter Care Teams Sexologist Relationship Specialty Start Date End Date Marni Ferguson MD [address] [place] [phone] PCP - General Internal Medicine 10/26/24 documented as of this encounter
--- OUTSIDE RECORDS SUMMARY | 2024-12-01 14:53 | XMS_ITS | Encounter Summary ---
Author Organization [facility] Address [address] [place] [address] Care Team Providers Care Funeral Home Associate Name Role Phone Marni Ferguson MD Primary Care Provider [phone] Reason for Visit * Imaging (Routine) - Closed Specialty Diagnoses / Procedures Referred By Dinah avery Referred To Contact Diagnoses Infrarenal abdominal aortic aneurysm (AAA) without rupture (CMS/HCC) Occlusion of arterial bypass graft, subsequent encounter Bilateral leg pain Procedures Vascular US duplex lower extremity arteries bilateral with FATMATA Ahmet Banks MD [address] [place] [address] Phone: tel: fax: [facility] Referral ID Status Reason Start Date Expiration Date Visits Re quested Visits Authorized [id number] Closed 11/03/2024 11/03/2025 1 1 Encounter Details Date Type Department Care Team (Latest Contact Info) Description 11/24/2024 10:30 AM EST Ancillary Procedure [facility] - [address] [place] [address] Infrarenal abdominal aortic aneurysm (AAA) without rupture (CMS/HCC); Occlusion of arterial bypass graft, subsequent encounter; Bilateral leg pain Social History Tobacco Use [...] AM EDT Office Visit Vascular Surgery - [place] [address] [place] [address] Ahmet Banks MD [address] [place] [address] 05/16/2025 10:30 AM EDT Ancillary Procedure [facility] - [address] [place] [phone] documented as of this encounter Procedures Procedure Name Priority Date/Time Associated Diagnosis Comments VAS US DUPLEX LOWER EXT ARTERIES BILAT WITH FATMATA Routine 11/24/2024 11:06 AM EST Infrarenal abdominal aortic aneurysm (AAA) without rupture (CMS/HCC) Occlusion of arterial bypass graft, subsequent encounter Bilateral leg pain documented in this encounter Results * Vascular US duplex lower extremity arteries bilateral with FATMATA (11/24/2024 11:06 AM EST) Left Dist External Iliac PSV 96 cm/s CV [facility] Left Prox External Iliac PSV 106 cm/s CV [facility] Left AT dist sys PSV 25 cm/s CV [facility] Left AT mid sys PSV 21 cm/s CV [facility] Left AT prox sys PSV 28 cm/s CV VAS LAB Left COMPUTER SYSTEMS SECURITY ANALYST prox sys PSV 60 cm/s CV VAS [...] PSV 19 cm/s CV VAS LAB Right COMPUTER SYSTEMS SECURITY ANALYST prox sys PSV 74 cm/s CV VAS [...] The mid peroneal artery has triphasic flow. Grain Elevator Operator Details A mitchell scale, color and doppler [...] documented in this encounter Visit Diagnoses Diagnosis Infrarenal abdominal aortic aneurysm (AAA) without rupture (CMS/HCC) Occlusion of arterial bypass graft, subsequent encounter Bilateral leg pain Pain in soft tissues of limb Encounter for adjustment or management of cardiac device documented in this encounter Additional Health Concerns Infection Onset Date Last Indicated Resolved Time Human Metapneumovirus 10/27/2024 10/27/2024 documented as of this encounter Care Teams Funeral Home Associate Relationship Specialty Start Date End Date Marni Ferguson MD [address] [place] [phone] PCP - General Internal Medicine 10/26/24 documented as of this encounter
--- OUTSIDE RECORDS SUMMARY | 2024-12-01 14:53 | XMS_ITS ---
Author Organization [address] [facility] Address [address] [place] [address] Phone Care Team Providers Care Stamping Die Maker Name Role Phone Marni Ferguson MD Primary Care Provider [phone] Active Problems Problem Noted Date Diagnosed Date 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 Omalley underwent bilateral radiofrequency ablation on 10/08/2022 at [facility] with some improvement lasting 1 month. 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 Past Plans No past plan information found. Radiation Treatments * No radiation treatments are documented for this patient in [facility]. Treatments may have been administered in another system. Lifetime Dose Tracking * Chemical Lifetime Dose Automatic Entry Manual Entr y Radiation 3,183.74 mGy 0 mGy 3,183.74 mGy Fluoro Time 1.2 minutes 0 minutes 1.2 minutes Resolved Problems Problem Noted Date Diagnosed Date Resolved Date Epistaxis 10/28/2024 10/28/2024
--- OUTSIDE RECORDS SUMMARY | 2024-12-01 14:53 | XMS_ITS | Continuity of Care Document ---
Author Organization [facility] Andrea Ashish lt Address [address] [place] [address]- Care Team Providers Care Gum Machine Filler Name Role Phone Phyllis DOLAN, Marni Primary Care Physician [phone] Encounter [facility] Date(s): 11/08/24 - 11/15/24 [facility] Gerard Lairdley Adult [address] [place] [address]- Encounter Diagnosis Encounter to establish care with new doctor(Discharge Diagnosis) - 11/08/24 Diabetes mellitus(Discharge Diagnosis) - 11/08/24 Diabetes mellitus with diabetic neuropathy(Discharge Diagnosis) - 11/08/24 Diabetic neuritis(Discharge Diagnosis) - 11/08/24 Anxiety(Discharge Diagnosis) - 11/08/24 AAA (abdominal aortic aneurysm)(Discharge Diagnosis) - 11/08/24 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) - 11/08/24 Chronic GERD(Discharge Diagnosis) - 11/08/24 Stage 3b chronic kidney disease (CKD)(Discharge Diagnosis) - 11/08/24 H/O: cardiac pacemaker in situ(Discharge Diagnosis) - 11/08/24 History of MS (myocardial infarction)(Discharge Diagnosis) - 11/08/24 Hypercholesteremia(Discharge Diagnosis) - 11/08/24 Hypertension(Discharge Diagnosis) - 11/08/24 care home prescription benzodiazepine use(Discharge Diagnosis) - 11/08/24 Lumbar radiculopathy(Discharge Diagnosis) - 11/08/24 Malignant tumor of pharynx(Discharge Diagnosis) - 11/08/24 Sick sinus syndrome(Discharge Diagnosis) - 11/08/24 Throat cancer(Discharge Diagnosis) - 11/08/24 Screening for viral disease(Discharge Diagnosis) - 11/08/24 Attending Physician: Marni Ferguson MD Encounter Type: Office Visit Allergies, Adverse Reactions, [...] rded pneumococcal 20-valent conjugate vaccine 02/09/23 Given [id number] 12y+ bivalent booster vax 07/10/22 Recorded SARS-CoV-2 [...] aortic aneurysm) Confirmed Active Anxiety Confirmed Active Presence of cardiac pacemaker Confirmed Active Stage 3b chronic kidney disease (CKD) Confirmed Active Diabetes mellitus Confirmed Active Diabetes mellitus with chronic kidney disease Confirmed Active Diabetes mellitus with diabetic neuropathy Confirmed Active Chronic GERD Confirmed Active H/O: cardiac pacemaker in situ 1 Confirmed 12/30/17 Active History of MS (myocardial infarction) Confirmed Active Hypercholesteremia Confirmed Active Hypertension Confirmed Active medical terminologist prescription benzodiazepine use Confirmed Active Lumbar radiculopathy [...] Effective Dates Health Status Clinical Service Informant Encounter to establish care with new doctor Discharge Diagnosis 11/08/24 Diabetes mellitus Discharge Diagnosis 11/08/24 Diabetes mellitus with diabetic neuropathy Discharge Diagnosis 11/08/24 Diabetic neuritis Discharge Diagnosis 11/08/24 Anxiety Discharge Diagnosis 11/08/24 AAA (abdominal aortic aneurysm) Discharge Diagnosis 11/08/24 Diabetes mellitus with chronic kidney disease Discharge Diagnosis 11/08/24 Chronic GERD Discharge Diagnosis 11/08/24 Stage 3b chronic kidney disease (CKD) Discharge Diagnosis 11/08/24 H/O: cardiac pacemaker in situ Discharge Diagnosis 11/08/24 History of MS (myocardial infarction) Discharge Diagnosis 11/08/24 Hypercholesteremia Discharge Diagnosis 11/08/24 Hypertension Discharge Diagnosis 11/08/24 care home prescription benzodiazepine use Discharge Diagnosis 11/08/24 Lumbar radiculopathy Discharge Diagnosis 11/08/24 Malignant tumor of pharynx Discharge Diagnosis 11/08/24 Sick sinus syndrome Discharge Diagnosis 11/08/24 Throat cancer Discharge Diagnosis 11/08/24 Screening for viral disease Discharge Diagnosis 11/08/24 Vital Signs Most recent to oldest [Reference Range]: 1 Height 173.7 cm (11/08/24 1:52 PM) Weight 88.6 kg (11/08/24 1:52 PM) Oxygen Saturation [94-100 %] 99 % (11/08/24 1:52 PM) Pulse Rate [55-90 bpm] 70 bpm (11/08/24 1:52 PM) Body Mass Index [18.5-24.99 kg/m2] 29.37 kg/m2 *H* (11/08/24 1:52 PM) Blood Pressure [90-138/55-84 mm Hg] 105/ 69mm Hg (11/08/24 1:52 PM) Respiratory Rate [16-30 br/min] 16 br/mi n (11/08/24 1:52 PM) Temperature [96.8-100.4 DegF] 98.0 DegF (11/08/24 1:52 PM) Mode of Delivery (Oxygen) Room air (11/08/24 1:52 PM) Blood pressure sites Arm, left (11/08/24 1:52 PM) Temperature Route Oral (11/08/24 1:52 PM) Weight Obtained Via Standing scale (11/08/24 1:52 PM) Social History Social History Type Response Smoking Status Former smoker; Other : Quit 1994 without relapse; entered on: 10/22/16 Sex Sex Representation Male (finding) Implantable Device List Procedure Provider Procedure Date Device Type Site Removal Jose Morales MD 06/07/18 Unk nown Eye Right Device Identifier Serial Number Lot or Batch Number Manufacturing Date Expiration Date Distinct Identification Code MRI Safety Implantable Status Assigning Authority Unknown [id number] Unknown Unknown 02/24/20 Unknown Unknown Active Unknown Note * Mercedes Hernadez: PERFORM Event Display: Patient Education/Instruction Authored Date: [id number] Ambulatory Adult Visit Summary [facility] Adult [facility] [address] [place] [address] Name: CHERELLE SALAZAR : 1940?? Visit: 11/08/2024 13:43?? Ambulatory Visit Instructions ?? Your Care Team Primary Care Provider Marni Ferguson MD? This Visit Provider Marni Ferguson MD Your Diagnosis Encounter to establish care with new doctor Diabetes mellitus Diabetes mellitus with diabetic neuropathy Diabetic neuritis Anxiety AAA (abdominal aortic aneurysm) Diabetes mellitus with chronic kidney disease Chronic GERD Stage 3b chronic kidney disease (CKD) H/O: cardiac pacemaker in situ History of MS (myocardial infarction) Hypercholesteremia Hypertension medical terminologist prescription benzodiazepine use Lumbar radiculopathy Malignant tumor of pharynx Sick sinus syndrome Throat cancer Screening for viral disease Vitals Signs Temperature: 98 DegF Height: 173.7 cm Pulse Rate: 70 bpm Weight: 88.6 kg Respiratory Rate: 16 br/min Body Mass Index:??29.37 kg/m2??High Systolic Blood Pressure: 105 mm Hg Body surface area: 2.07 Diastolic Blood Pressure: 69 mm Hg ?? Oxygen Saturation: 99 % ?? What to do next Follow-Up Appointments Follow Up with??Phyllis DOLAN, Marni When:??Within 4 months Why: MWV February 2025?? Where: [address] [place] [address]- Future Orders CBC w/ Differential - Routine, Once, 11/08/24 14:29:00 EST, Future Order, [facility], Blood?? Comprehensive Metabolic Panel - Routine, Once, 11/08/24 14:30:00 EST, Future Order, [facility], Blood?? Lipid Panel - Routine, Once, 11/08/24 14:30:00 EST, Future Order, [facility], Blood?? HIV Ab-Ag 4th Generation - Routine, Once, 11/08/24 14:30:00 EST, Future Order, [facility], Blood?? Hepatitis Profile - Routine, Once, 11/08/24 14:30:00 EST, Future Order, [facility], Blood?? Medications The list below reflects the information in our records and provided by you today along with any changes made during this visit. Please continue your medications until treatment is completed or stopped by your provider. If this is different from the information you have or there are other questions,please contact the prescribing provider. What How Much When Why Instructions New amiTRIPTYLINE (amitriptyline 25 mg oral tablet) 1 tab(s) Oral Daily at Bedtime Diabetic neuritis Diabetes mellitus with diabetic neuropathy Refills: 5 Pickup at [facility]/pharmacy #[id number] Unchanged Aspirin (aspirin 81 mg oral tablet) 1 tab(s) Oral Daily Unchanged Atenolol (atenolol 50 mg oral tablet) See instructions Hypertension TAKE 1 TABLET BY MOUTH EVERY DAY ?? Unchanged Atorvastatin (atorvastatin 80 mg oral tablet) 1 tab(s) Oral Daily Hypercholesteremia Unchanged Cyanocobalamin (Vitamin B12 1000 mcg oral tablet) 1 tab(s) Oral Daily Unchanged Durable Medical Equipment (FreeStyle Vivek 2 Sensors) Unchanged Durable Medical Equipment (Freestyle Vivek Monitor) Unchanged Durable Medical Equipment ([place], 32 G x 4 mm BD Ultra Fine III) See instructions Type 2 diabetes mellitus Duration: 90 Days use as directed for Type 1 Diabetes Mellitus ?? Unchanged Durable Medical Equipment ([place], 32 G x 4 mm BD Ultra Fine III) See instructions Duration: 30 Days E11.9 use as directed for Type 2 Diabetes Mellitus, use to inject insulin once daily ?? Unchanged Fenofibrate (fenofibrate 145 mg oral tablet) 1 tab(s) Oral Daily Hypercholesteremia Duration: 90 Days Unchanged Furosemide (furosemide 20 mg oral tablet) 1 tab(s) Oral Daily Hypertension Heart failure Unchanged insulin degludec (Tresiba FlexTouch 200 units/ mL subcutaneous solution) 30 unit(s) Subcutaneous Injection Daily at Bedtime Type 2 diabetes mellitus rotate injection sites ?? Unchanged Lansoprazole (lansoprazole 30 mg oral enteric coated capsule) See instructions GERD (gastroesophageal reflux disease) TAKE 1 CAPSULE BY MOUTH EVERY DAY ?? Unchanged Miscellaneous Rx (18 - 20mmHg below knee compression stockings) See instructions dx: lower extremity edema ?? Unchanged Nitroglycerin (Nitrostat 0.4 mg sublingual tablet) 1 tab(s) Sublingual Every 5 minutes as needed for for chest pain Anginal pain Please divide 25 tablets X 4 bottles ?? Unchanged tapentadol (Nucynta 50 mg oral tablet) 1 tab(s) Oral Twice a day Pharmacy Information [facility]/pharmacy #[id number]: [id number] [place], [place] [id number] [phone] Test Performed Below is a partial list of the tests performed during your Visit. You may have had other tests and procedures not included in this list. Please discuss all test results with your provider. CBC w/ Differential?-- Results Pending -- Comprehensive Metabolic Panel?-- Results Pending -- Hepatitis Profile?-- Results Pending -- HIV Ab-Ag 4th Generation?-- Results Pending -- Lipid Panel?-- Results Pending -- POC HBA1C ([facility]) Lab Test Results Below is a partial list of the most recent Laboratory test results done during your Visit. You may have had other tests and procedures not included in this list. Please discuss all test results with your provider. Test Name Test Result Date/Time POC HBA1C ([facility]) 5.9 % 11/08/2024 13:58 EST Medications and Immunizations Administered Medications Given During Visit No medications given during this visit.?? Allergies (NKA means No Known Allergies) Bactrim DS??(rash) Contrast Dye??(angioedema, dyspnea) tetracyclines??(rash) Common Emergency Awareness Tips IS IT A [...] are strongly encouraged to quit. Please call [employer] Link at [phone] or [phone] Extreme ([phone]) or log in to [email or web address] for referrals to smoking cessation programs. ?? The National Suicide Prevention Hotline is available 26/04 if you or someone you know needs to find a reason to keep living. By calling 9-125-579-Ebyline (0362) you'll be connected to a skilled, trained counselor at a crisis center in your area. [facility] Health Portal You can view and manage your care through the patient portal or by using a health care steffanie of your choosing. [employer] is a website that allows you to securely view your medical information including your hospital discharge summary, office visit summaries, medications and follow-up visits. You can also request appointments, renew medications, and request access to your medical information using a health care steffanie of your choosing, or just ask a question. You can enroll at [email or web address] or register during your next office visit. [facility], in keeping with [facility] guidance, no longer requires face masks for staff, patientsor visitors in most situations. Similiar to time spent indoors at other locations, there is the chance that you were exposed to repiratory viruses during your time with us (such as flu or COVID-19). If you develop symptoms concerning for a viral respiratory infection, please seek testing (and treatment if indicated) from your medical provider or home test kit. ?? Disclaimer: The information provided is of a general nature and is intended to be used in conjunction with the recommendations and advice of your health care practitioner. Every effort has been made to ensure that the information provided is accurate and complete at the time it is provided to you however, as your needs change, or, as new information becomes available, different or additional instructions may be required. ?? If you have questions, please consult with your primary care provider or pharmacist, as appropriate. This information is not intended to serve as substitution for assessment and evaluation by a qualified health care provider. If you do not have a primary care provider, you may find a [facility] provider by calling [facility] [employer] Link at [phone]. Patient Care team information Care Team Personnel Name: Aurora Fairbanks RN Position: [facility] RN Member Role: Primary Care Nurse Name: Micaela Bridges RN Position: [facility] AMB Nurse Member Role: Primary Care Nurse Name: Mi Pelaez RN Position: [facility] RN Member Role: Primary Care Nurse Name: Angela Nogueira RN Position: [facility] RN Member Role: Primary Care Nurse Name: Cruz Hilliard RN Position: [facility] AMB Nurse Member Role: Primary Care Nurse Name: Marni Ferguson MD Position: [facility] Physician - Primary Care Member Role: PCP Address: [address] [place] [address]- Telecom: Name: Mya Hays RN Position: [facility] AMB Nurse Member Role: Primary Care Nurse Name: Jean Lucero MD Position: [facility] Cardiology MD Member Role: Lifetime Consulting Physician Address: [address] [place] [address] [place] [address]- Telecom: Name: Chante Nielson RN Position: [facility] Hospital Residential Aide Member Role: Primary Care Nurse Care Team Related Persons Name: HEMALATHA SALAZAR Name: RONALD SALAZAR Insurance Providers Guarantor name: CHERELLE LUCIANOLUIS Health Plan Information #: 1 Payer: MEDICARE PART B OUTPT Member Number: [id number] Policy Number: NA Group Number: FREDDIE Health Plan Information #: 2 Payer: [facility] Member Number: [id number] Policy Number: NA Group Number: [id number]
--- OUTSIDE RECORDS SUMMARY | 2024-12-01 14:53 | XMS_ITS | Encounter Summary ---
Author Organization [facility] Address [address] [place] [address] Care Team Providers Care Electrical Controls Engineer Name Role Phone Marni Ferguson MD Primary Care Provider [phone] Reason for Referral * Imaging (Routine) - Closed Specialty Diagnoses / Procedures Referred By Contac t Referred To Contact Diagnoses Infrarenal abdominal aortic aneurysm (AAA) without rupture (CMS/HCC) Occlusion of arterial bypass graft, subsequent encounter Bilateral leg pain Procedures Vascular US duplex lower extremity arteries bilateral with FATMATA Ahmet Banks MD [address] [facility] [address] [place] [address] Phone: tel: fax: [place] [facility] Referral ID Status Reason Start Date Expiration Date Visits Re quested Visits Authorized [id number] Closed 11/03/2024 11/03/2025 1 1 * Imaging (Routine) - Authorized Specialty Diagnoses / Procedures Referred By Contac t Referred To Contact Diagnoses Acute deep vein thrombosis (DVT) of femoral vein of right lower extremity (CMS/HCC) Leg edema Bilateral leg pain Procedures Vascular US duplex lower extremity venous bilateral Ahmet Banks MD [address] [place] [address] [place] [address] Phone: tel: fax: [place] [facility] Referral ID Status Reason Start Date Expiration Date V isits Requested Visits Authorized [id number] Authorized 11/03/2024 11/03/2025 1 1 Reason for Visit * Reason Comments Peripheral Vascular Disease Encounter Details Date Type Department Care Team (Late st Contact Info) Description 11/03/2024 1:30 PM EST Office Visit Vascular Surgery - [place] [address] [place] [address] Ahmet Banks MD [address] [place] [address] Infrarenal abdominal aortic aneurysm (AAA) without rupture [...] PM EST documented as of this encounter Last Filed Vital Signs Vital Sign Reading Time Taken Comments Blood Pressure 120/70 11/03/2024 1:32 PM EST Pulse 72 11/03/2024 1:32 PM EST Temperature - - Respiratory Rate 16 11/03/2024 1:32 PM EST Oxygen Saturation - - Inhaled Oxygen Concentration - - Weight 87.1 kg (192 lb) 11/03/2024 1:32 PM EST Height 177.8 cm (5' 10 ) 11/03/2024 1:32 PM EST Body Mass Index 27.55 11/03/2024 1:32 PM EST documented in this encounter Ordered Prescriptions Prescription Sig Dispense Quantity Refills Last Filled Start Date End Date rivaroxaban (Xarelto) 2.5 mg tabletIndications:I nfrarenal abdominal aortic aneurysm (AAA) without rupture (CMS/HCC),Occlusion of arterial bypass graft, subsequent encounter Take 1 tablet (2.5 mg total) by mouth 2 (two) times a day with meals. 60 tablet 11 11/03/2024 documented in this encounter Plan of Treatment Upcoming Encounters Date Type Department Care Team (Late st Contact Info) Description 02/16/2025 11:30 AM EDT Office Visit Vascular Surgery - [place] [address] [place] [phone] Ahmet Banks MD [address] [place] [address] 05/16/2025 10:30 AM EDT Ancillary Procedure [facility] - [facility] [address] [facility] [address] [place] [phone] documented as of this encounter Results * Vascular US duplex [...] trendelenburg. Left saphenopopliteal junction was not identified. Vehicle Maintenance Technician Details A mitchell scale, color and doppler [...] PSV 28 cm/s CV VAS LAB Left [employer] COUNCIL DIRECTOR prox sys PSV 60 cm/s CV VAS [...] PSV 19 cm/s CV VAS LAB Right [employer] COUNCIL DIRECTOR prox sys PSV 74 cm/s CV VAS [...] The mid peroneal artery has triphasic flow. Vehicle Maintenance Technician Details A mitchell scale, color and doppler [...] Infrarenal abdominal aortic aneurysm (AAA) without rupture (CMS/HCC)- Primary Occlusion of arterial bypass graft, subsequent encounter Acute deep vein thrombosis (DVT) of femoral vein of right lower extremity (CMS/HCC) Leg edema Edema Bilateral leg pain Pain in soft tissues of limb Infrarenal abdominal aortic aneurysm (AAA) without rupture (CMS/HCC) Occlusion of arterial bypass graft, subsequent encounter Bilateral leg pain Pain in soft tissues of limb Acute deep vein thrombosis (DVT) of femoral vein of right lower extremity (CMS/HCC) Leg edema Edema Bilateral leg pain Pain in soft tissues of limb Encounter for adjustment or management of cardiac device documented in this encounter Additional Health Concerns Infection Onset Date Last Indicated Resolved Time Human Metapneumovirus 10/27/2024 10/27/2024 documented as of this encounter Care Teams Electrical Controls Engineer Relationship Specialty Start Date End Date Marni Ferguson MD [address] [place] [phone] PCP - General Internal Medicine 10/26/24 documented as of this encounter
--- OUTSIDE RECORDS SUMMARY | 2024-12-01 14:53 | XMS_ITS | Continuity of Care Document ---
Author Organization [facility] Andrea Ashish lt Address [address] [place] [address]- Care Team Providers Care Customer Experience Associate Name Role Phone Phyllis DOLAN, Marni Primary Care Physician [phone] Encounter [facility] Date(s): 10/25/24 - 11/24/24 [facility] Adult [address] [place] [address]- Encounter Type: Triage Allergies, Adverse Reactions, Alerts [...] Brannon rded influenza virus vaccine, inactivated 06/18/11 [place] rded influenza virus vaccine, inactivated 9/13/10 Brannon rded influenza virus vaccine, inactivated 06/25/05 Brannon rded pneumococcal 20-valent conjugate vaccine 02/09/23 Given [id number] 12y+ bivalent booster vax 07/10/22 Recorded SARS-CoV-2 [...] situ 1 Confirmed 12/30/17 Active History of [place] (myocardial infarction) Confirmed Active Hypercholesteremia Confirmed Active Hypertension Confirmed Active intermediate card tender prescription benzodiazepine use Confirmed Active Lumbar radiculopathy [...] Provider Procedure Date Device Type Site Removal Pinguecula ShakilaJose perez MD 06/07/18 Unk nown Eye Right Device Identifier Serial Number Lot or Batch Number Manufacturing Date Expiration Date Distinct Identification Code MRI Safety Implantable Status Assigning Authority Unknown [id number] Unknown Unknown 02/24/20 Unknown Unknown Active Unknown Patient Care team information Care Team Personnel Name: Aurora Fairbanks RN Position: [facility] RN Member Role: Primary Care Nurse Name: Micaela Bridges RN Position: [facility] AMB Nurse Member Role: Primary Care Nurse Name: Mi Pelaez RN Position: [facility] RN Member Role: Primary Care Nurse Name: Angela Nogueira RN Position: [facility] RN Member Role: Primary Care Nurse Name: Cruz Hilliard RN Position: [facility] Nurse Member Role: Primary Care Nurse Name: Marni Ferguson MD Position: [facility] Physician - Primary Care Member Role: PCP Address: [address] [place] [address] [place] [address]- [place] Telecom: Name: Mya Hays RN Position: [facility] Nurse Member Role: Primary Care Nurse Name: Jean Lucero MD Position: [facility] Cardiology MD Member Role: Lifetime Consulting Physician Address: [address] [place] [address] [place] [address]- [place] Telecom: Name: Chante Nielson RN Position: [facility] Hospital Etiquette Coach Member Role: Primary Care Nurse Care Team Related Persons Name: HEMALATHA SALAZAR Name: RONALD SALAZAR Insurance Providers Guarantor name: CHERELLE MARTIN Health Plan Information #: 1 Payer: MEDICARE PART B OUTPT Member Number: NA Policy Number: NA Group Number: NA Health Plan Information #: 2 Payer: [facility] Member Number: NA Policy Number: NA Group Number: NA
--- OUTSIDE RECORDS SUMMARY | 2024-12-01 14:53 | XMS_ITS | Data Portability ---
Author Organization [place] - [facility] All[facility] Address [address] [address] Care Team Providers Care Accounts Receivable Analyst Name Role Phone CHRISTIE CAR Referring Provider [...] unlisted lab - TSH w/reflex 2023 024 AZEB [facility] (Centralized Electronic Ordering - All Locations), Patient Can Go To The Location Of Their Choice, [address] 06/02/2024 21:10:25 Referral None recorded. Procedures None [...] 4.500 above high normal Not Available [facility] ([facility]) [address] [place], [address], 06/02/2024 21:10:25 05/31/2006/02/2024 TSH W/REF LOLIS triiodothyro nine (T3), free 2.6 pg/mL 2.0-4. 4 Not Available [facility] ([facility]) [address] [place], [address], 06/02/2024 21:10:25 05/31/2006/02/2024 TSH W/REF LOLIS T4,free (direct) 1.07 NG/dL 0.82-1 .77 normal Not Available [facility] ([facility]) [address] [place], [address], 06/02/2024 21:10:25 05/24/20 24 11/17/2019 imagi ng/di [...] Organization Details Recorded Time Chronic hoarsenes s 64144533931 05 Active 2023 MELVIN QUINN MD [address] [place] [address], [place], [address] , 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 698196758 Active 2022 Malignant neoplasm of aryepiglo ttic fold NOS; Note: Changed from D38.0 to C13.1 ( 3 12:15 PM) , Date Diagnosed : 02/08/2023 11:22 AM (D38.0) Not Available [facility] 4 02:46:18 History of malignant neoplasm of larynx 269982242 Active 2020 Personal history of malignant neoplasm of larynx; Note: Date Diagnosed : 12/12/2020 12:47 PM (Z85.21) Not Available [facility] 4 02:46:18 Pharyngea l dysphagia 97327020994 105 Active 2021 Dysphagia , pharyngea l phase; Note: Date Diagnosed : 03/20/2022 11:46 AM (R13.13) Not Available [facility] 4 02:46:23 Follow-up visit Active 2019 Encounter for follow-up examinati on after completed treatment for malignant neoplasm; Note: Date Diagnosed : 04/24/2020 8:56 AM (Z08) Not Available [facility] 4 02:46:22 Lymphedem a 548876379 Active 2019 Lymphedem a, not elsewhere classifie d; Note: Date Diagnosed : 04/24/2020 9:00 AM (I89.0) Not Available [facility] 4 02:46:21 Chronic cough 03361137 Active 2021 Chronic cough; Note: Changed from R05 to R05.3 ( 2 11:46 AM) , Date Diagnosed : 03/20/2022 11:46 AM (R05) Not Available [facility] 4 02:46:19 Long-term current use of antiplate let drug 06203461670 4101 Active 2017 longterm (current) use of antithrom botics/an tiplatele ts; Note: Date Diagnosed : 04/23/2017 12:51 PM (Z79.02) Not Available [facility] 4 02:46:28 Vasomotor rhinitis 8980619 Active 2020 Vasomotor rhinitis; Note: Date Diagnosed : 01/22/2021 11:42 AM (J30.0) Not Available [facility] 4 02:46:22 Neoplasm of uncertain behavior of larynx 94694975 Active 2019 Neoplasm of uncertain behavior of larynx; Note: Date Diagnosed : 12/19/2019 10:13 AM (D38.0) Not Available [facility] 4 02:46:26 Disorder of vocal cord 29341422 Active 2019 Other diseases of vocal cords; Note: Date Diagnosed : 11/15/2019 1:00 PM (J38.3) Not Available [facility] 4 02:46:20 Finding of resonance of voice 306856811 Active 2021 Other voice and resonance disorders ; Note: Date Diagnosed : 03/18/2022 5:46 PM (R49.8) Not Available [facility] 4 02:46:17 Bleeding from nose 999851236 Active 2017 Epistaxis ; Note: Date Diagnosed : 04/23/2017 12:51 PM (R04.0) Not Available [facility] 4 02:46:21 Edema of larynx following radiother apy 565054071 Active 2023 MELVIN QUINN MD 100 [facility], [place], [address] , [facility] 4 10:25:49 Abnormal auditory perceptio n 00242103 Active 2023 MELVIN QUINN MD 100 [facility], [place], [address] , [place] [facility] 4 10:26:03 Bilateral tinnitus 18648889636 02 Active 2023 MELVIN QUINN MD [address], [place], [address] , [facility] - [facility] 4 10:26:07 Oropharyn geal dysphagia 11876126 Active 2023 MELVIN QUINN MD [address], [place], [address] , [facility] - [facility] 4 10:26:16 Sensorine ural hearing loss of bilateral ears 108590727 Active 2023 COLIN JIMENEZ [place], [facility] [address],[place] [facility], [place], [address] , [facility] 4 11:01:59 Problem Notes None recorded. Procedures Surgical History Date Name Laterality Status Provider Name and Address Organization Details Recorded Time 09/21/20 24 Fiberoptic Laryngoscopy (Comprehensive) completed MELVIN AKERS MD [address],[place] [facility], [place], [address], [facility] - [facility] 09/21/2024 11:34:17 05/31/20 24 Fiberoptic Laryngoscopy (Comprehensive) completed MELVIN AKERS MD [address],[place] [facility], [place], [address], [facility] - [facility] 05/30/2024 10:05:32 02/16/20 24 Comp Audio with Tymps (57857 & 54291) completed COLIN JIMENEZ MA, CCC-A [address], [place], [address], [facility] - [facility] 02/16/2024 11:01:33 02/16/20 24 Fiberoptic Laryngoscopy (Comprehensive) completed MELVIN AKERS MD [address], [place], [address], [facility] - [facility] 02/16/2024 10:25:42 02/24/20 23 Laryngoscopy with biopsy completed MELVIN AKERS MD [address], [place], [address], [place] [facility] 02/14/2024 18:47:38 12/19/19 Laryngoscopy for treatment completed MELVIN AKERS MD [address], [place], [address], [place] [facility] 02/14/2024 18:47:06 insertion of stent into aorta completed MELVIN AKERS MD [address] [facility] [address], [place], [address], [place] [facility] 09/21/2024 11:35:38 peripheral arterial bypass completed MELVIN AKERS MD [address] [facility] [address], [place], [address], [place] [facility] 09/21/2024 11:35:45 Imaging Results Imaging Date Name Status [facility] Details LastModified Time 11/17/2019 imaging/diag nostic result [...] Name and Address Organization Details Recorded Time 41605 Bactrim medicatio n other Not available Not available 02/15/2024 88052 9 RxNorm React ion: unkno wn, unspe cifie d;; Not Available [facility] 01:04:16 17531 Product containin g tetracycl ine and antibioti c (product) medicatio n other Not available Not available 02/15/2024 66237 1004 SNOMED React ion: unkno wn, unspe cifie d;; Not Available [facility] 4 01:04:19 Medications Name Sig Start Date Stop Date Status Note LastModified by Organization Details LastModified Time metformin 500 mg tablet 04/23 completed Medicati on ID: [id number] D uration Value: 90 Brand Name: metformi n Send Method: E-Prescr ibed Sub s Allowed: subs OK Medic ationGen ericName : metformi n Not Available Not Available Not Available atorvasta tin 80 mg tablet TAKE 1 TABLET BY MOUTH DAILY active Not Available Not Available No t Available gabapenti n 600 mg tablet 12/18 completed Medicati on ID: [id number] B rand Name: gabapent in Send Method: [...] 24 hr 04/23 completed Medicati on ID: 845055 D uration Value: 30 Brand Name: oxybutyn in chloride Send Method: E-Prescr ibed Sub s Allowed: subs OK Medic ationGen ericName : oxybutyn in chloride Not Available Not Available Not Available atenolol 100 mg tablet 2020 active Medicati on ID: [id number] B rand Name: atenolol Send Method: E-Prescr ibed Sub s Allowed: subs OK Medic ationGen ericName : atenolol Not Available Not Available Not Available glipizide ER 10 mg tablet, extended release 24 hr 04/23 completed Medicati on ID: [id number] D uration Value: 90 Brand Name: glipizid [...] mg capsule 12/18 completed Medicati on ID: [id number] B rand Name: gabapent in Send Method: E-Prescr ibed Sub s Allowed: subs OK Medic ationGen ericName : gabapent in Not Available Not Available Not Available Zyrtec 10 mg tablet Take 1 tablet by mouth as directed 2021 active Medicati on ID: [id number] D uration Value: 1 Brand Name: Zyrtec S end Method: E-Prescr ibed Sub s Allowed: subs OK Speci al Instruct ion: take one tablet by mouth [address] Scan Med [place] me: Zyrtec Not Available Not Available Not Available clopidogr el 75 mg tablet 12/17 completed Medicati on ID: 553666 D uration Value: 90 Brand Name: clopidog rel Send Method: E-Prescr ibed Sub s Allowed: subs OK Medic ationGen ericName : clopidog rel Not Available Not Available Not Available amlodipin e 5 mg tablet 04/23 completed Medicati on ID: [id number] D uration Value: 90 Brand Name: amlodipi ne Send Method: E-Prescr ibed Sub s Allowed: subs OK Medic ationGen ericName : amlodipi ne Not Available Not Available Not Available tramadol 50 mg tablet 04/23 completed Medicati on ID: [id number] D uration Value: 90 Brand Name: tramadol Send Method: E-Prescr ibed Sub s Allowed: subs OK Medic ationGen ericName : tramadol Not Available Not Available Not Available lorazepam 0.5 mg tablet TAKE 1 TABLET BY MOUTH TWICE DAILY active Not Available Not Available No t Available prednison e 1 mg tablet 12/18 completed Medicati on ID: 232646 B rand Name: predniso ne Send Method: [...] mg tablet 04/23 completed Medicati on ID: [id number] D uration Value: 90 Brand Name: royal briscoe Send Method: E-Prescr ibed Sub s Allowed: subs OK Medic ationGen ericName : allopuri nol Not Available Not Available Not Available furosemid e 20 mg tablet TAKE 1 TABLET BY MOUTH DAILY active Not Available Not Available No t Available ipratropi um bromide 42 mcg (0.06 %) nasal spray 12/18 completed Medicati on ID: 780291 B rand Name: ipratrop ium bromide Send [...] by mouth 2019 active Medicati on ID: 646438 D uration Value: 1 Prescri bed By Name: RODERICK Chacon nd Name: Benadryl Allergy Send Method: E-Prescr ibed Sub s Allowed: subs OK Speci al Instruct ion: take 2 tablets [address] scan Med icationG enericNa me: Benadryl Allergy Not Available Not Available Not Available olmesarta n 5 mg tablet 12/18 completed Medicati on ID: 029132 B rand Name: olmesart an Send Method: E-Prescr ibed Sub s Allowed: subs OK Medic ationGen ericName : olmesart an Not Available Not Available Not Available olmesarta n 20 mg tablet 2020 active Medicati on ID: [id number] B rand Name: olmesart an Send Method: E-Prescr ibed Sub s Allowed: subs OK Medic ationGen ericName : olmesart an Not Available Not Available Not Available escitalop angie 10 mg tablet 04/23 completed Medicati on ID: [id number] D uration Value: 90 Brand Name: escitalo pram oxalate Send Method: E-Prescr ibed Sub s Allowed: subs OK Medic ationGen ericName : escitalo pram oxalate Not Available Not Available Not Available Novolog FlexPen U-100 Insulin aspart 100 unit/mL (3 mL) subcutane ous 2020 active Medicati on ID: [id number] B rand Name: Novolog Flexpen U-100 Insulin Send Method: E-Prescr ibed Sub s Allowed: subs OK Medic ationGen ericName : Novolog Flexpen U-100 Insulin Not Available Not Available Not Available pregabali n 150 mg capsule 2020 active Medicati on ID: [id number] B rand Name: pregabal in Send Method: E-Prescr ibed Sub s Allowed: subs OK Medic ationGen ericName : pregabal in Not Available Not Available Not Available Lyrica 75 mg capsule 04/23 completed Medicati on ID: [id number] D uration Value: 90 Brand Name: Lyrica [...] ous pen injector active Medicati on ID: [id number] B rand Name: Trulicit y Send Method: [...] x 1/4 12/18 completed Medicati on ID: [id number] B rand Name: BD Ultra-Fi ne Micro Pen Needle S end Method: E-Prescr ibed Sub s Allowed: subs OK Medic ationGen ericName : BD Ultra-Fi ne Micro Pen Needle Not Available Not Available Not Available Ozempic 0.25 mg or 0.5 mg (2 mg/1.5 mL) subcutane ous pen injector 2020 active Medicati on ID: [id number] B rand Name: Ozempic Send Method: E-Prescr ibed Sub s Allowed: subs OK [facility] : Ozempic Not Available Not Available Not Available BD Ev 2nd Gen Pen Needle 32 gauge x /32 USE DIRECTED ONCE DAILY active Not Available [...] Updated DateTime 05/31/2024 172.72 cm 30.6 kg/m2 10766.07 g Malik Joiner [place] - [facility] 05/31/2024 09:57:53 Date Recorded Body weight Body mass index (BMI) Body height Provider Name and Address Organization Details Last Updated DateTime 02/16/2024 29161.29 g 30.1 kg/m2 172.72 cm Malik Joiner PA - [facility] 02/16/2024 10:11:40 Date Recorded Body height Body mass index (BMI) Body weight Provider Name and Address Organization Details Last Updated DateTime 09/21/2024 172.72 cm 30.4 kg/m2 18820.47 g Malik Joiner [place] - [facility] 09/21/2024 11:15:52 Social History Question Answer Notes LastModified by Organizat ion Details LastModified Time Tobacco Smoking Status Never Smoker Malik craig [place] - [facility] 02/16/2024 10:08:12 What Is Your Level Of Alcohol Consumption? None [email or web address] Information not available 02/16/2024 Do You Use Any Illicit Or Recreational Drugs? No [email or web address] Information not available 02/16/2024 Do You Or Have You Ever Used Any Other Forms Of Tobacco Or Nicotine? No [email or web address] Information not available 02/16/2024 Sex: Unknown Functional Status None recorded. Mental Status None recorded. Family History Nothing Reported. Medical History Condition Response Diabetes Y Hyperlipidemia Y High Cholesterol Y Hypertension Y Past Encounters Encounter ID Performer Location Encounter Start Date Encounter Closed Date Diagnosis/Indication Diagnosis SNOMED-CT Code Diagnosis ICD10 Code Diagnosis Note [id number] MELVIN QUINN MD [facility] [address] [address] 02/16/2024 10:01:00 02/16/2024 11:03:28 Abnormal auditory perception 77432082 H93.299 Bilateral tinnitus 93268 12436 102 H93.13 Oropharyng eal dysphagia 21207509 R13.12 Sensorineu ral hearing loss of bilateral ears 013422940 H90.3 Normal hearing thru 1000Hz sloping to a mild to to severe sensorineu ral hearing loss with excellent speech discrimina tion ability for both ears.Type A tympanogra ms. Declines amplificat ion History of malignant neoplasm of larynx 169883897 Z85.21 Chronic hoarseness 09813 84783 105 R49.0 Edema of l arynx following radiotherapy 654237098 J38.4 [id number] COLIN JIMENEZ MA, CCC-A [facility] [address] [address] 02/16/2024 10:57:00 02/17/2024 22:38:16 Sensorineural hearing loss of bilateral ears 912508889 H90.3 Normal hearing thru 1000Hz sloping to a mild to to severe sensorineu ral hearing loss with excellent speech discrimina tion ability for both ears.Type A tympanogra ms. Bilateral tinnitus 44101 02164 102 H93.13 [id number] MELVIN QUINN MD [facility] [address] [address] 05/31/2024 09:51:42 05/31/2024 10:31:47 History of malignant neoplasm of larynx 785202042 Z85.21 Chronic hoarseness 27416 93420 105 R49.0 Edema of l arynx following radiotherapy 435590250 J38.4 Bilateral tinnitus 18169 42812 102 H93.13 Oropharyng eal dysphagia 97478357 R13.12 Sensorineu ral hearing loss of bilateral ears 898578828 H90.3 [id number] MELVIN QUINN MD [facility] [address] [address] 09/21/2024 10:58:20 09/21/2024 11:41:36 History of malignant neoplasm of larynx 708426622 Z85.21 Chronic hoarseness 00794 39975 105 R49.0 Edema of l arynx following radiotherapy 556871647 J38.4 Bilateral tinnitus 86123 58749 102 H93.13 Oropharyng eal dysphagia 35979433 R13.12 Sensorineu ral hearing loss of bilateral ears 966778505 H90.3 Health Concerns Section Related Observation LastModified by Organization Detai ls LastModified Time None Recorded Concern Status LastModified by Organization Details LastModified Time None Recorded Advance Directives Directive None Recorded Payers Encounter Date Sequence Insurance Name Policy Number Policy Purcell Covered Member ID Purcell Member ID Guarantor Name 02/16/2024 2 [facility] INDEMNITY [facility] - [place] (INDEMNITY) [id number] Mark Anthony Omalley [id number] Mark Anthony Omalley 02/16/2024 1 MEDICARE B-PA: [facility] [employer] Mark Anthony Omalley [id number] Mark Anthony Omalley 02/16/2024 2 [facility] [place] (INDEMNITY) [id number] Mark Anthony Omalley [id number] Mark Anthony Omalley 02/16/2024 1 MEDICARE B-[place]: [facility] Mark Anthony Omalley [id number] Mark Anthony Omalley 05/31/[address] [facility] INDEMNITY PLAN - [place] (INDEMNITY) [id number] Mark Anthony Omalley [id number] Mark Anthony Omalley 05/31/2024 1 MEDICARE B-[place]: [facility] Mark Anthony Omalley [id number] Mark Anthony Omalley 09/21/[address] [facility] INDEMNITY PLAN - [place] (INDEMNITY) [id number] Mark Anthony Omalley [id number] Mark Anthony Omalley 09/21/2024 1 MEDICARE B-[place]: [facility] Mark Anthony Omalley [id number] Mark Anthony Omalley Notes Date Note [...] use water to swallow MELVIN AKERS MD [address] [place] [address], [address], [facility] 02/16/2024 12:28:07 02/16/2024 text/html tinnitus COLIN JIMENEZ MA, CCC-A [address] [place] [address], [address], [facility] 02/16/2024 11:07:36 05/31/2024 text/html Hearing Loss - [...] peripheral bypass tomorrow. MELVIN AKERS MD [address] [facility],[place] [address], [place], [address], [facility] 05/31/2024 10:20:02 09/21/2024 text/html Hearing Loss - [...] peripheral bypass tomorrow. MELVIN AKERS MD [address],[facility], [place], [address], [facility] 09/21/2024 13:02:16
--- OUTSIDE RECORDS SUMMARY | 2024-12-01 14:53 | XMS_ITS | Continuity of Care Document ---
Author Organization [facility] Ashish lt Address [address] [place] [address]- Care Team Providers Care Electric Deicer Inspector Name Role Phone Phyllis DOLAN, Marni [id number] Date(s): 10/25/24 - 11/25/24 [facility] Adult [address] [place] [address]- Attending Physician: Not on Staff, Attending MD Encounter Type: Pre Office Visit Allergies, Adverse Reactions, Alerts Substance [...] rded pneumococcal 20-valent conjugate vaccine 02/09/23 Given [id number] 12y+ bivalent booster vax 07/10/22 Recorded SARS-CoV-2 [...] situ 1 Confirmed 12/30/17 Active History of [place] (myocardial infarction) Confirmed Active Hypercholesteremia Confirmed Active Hypertension Confirmed Active half-way prescription benzodiazepine use Confirmed Active Lumbar radiculopathy [...] Procedure Date Device Type Site Removal Pinguecula Shakila MD, Jose Peter 06/07/18 Unk nown Eye Right Device Identifier Serial Number Lot or Batch Number Manufacturing Date Expiration Date Distinct Identification Code MRI Safety Implantable Status Assigning Authority Unknown [id number] Unknown Unknown 02/24/20 Unknown Unknown Active Unknown Patient Care team information Care Team Personnel Name: Magdi CODY, Aurora Chamorro Position: [facility] RN Member Role: Primary Care Nurse Name: Micaela Bridges RN Position: [facility] Nurse Member Role: Primary Care Nurse Name: Mi Pelaez RN Position: [facility] RN Member Role: Primary Care Nurse Name: Angela Nogueira RN Position: [facility] RN Member Role: Primary Care Nurse Name: Cruz Hilliard RN Position: [facility] Nurse Member Role: Primary Care Nurse Name: Marni Ferguson MD Position: [facility] Physician - Primary Care Member Role: PCP Address: [address] [place] [id number] LP Telecom: Name: Mya Hays RN Position: [facility] Nurse Member Role: Primary Care Nurse Name: Jean Lucero MD Position: [facility] Cardiology MD Member Role: Lifetime Consulting Physician Address: [address] [place] [address] [place] [address]- [place] Telecom: Name: Chante Nielson RN Position: [facility] Hospital Real Estate Agent Member Role: Primary Care Nurse Care Team Related Persons Name: HEMALATHA SALAZAR Name: RONALD SALAZAR Insurance Providers Guarantor name: CHERELLE LUCIANOLUIS Health Plan Information #: 2 Payer: [facility] Member Number: [id number] Policy Number: NA Group Number: [id number] Health Plan Information #: 1 Payer: MEDICARE PART B OUTPT Member Number: [id number] Policy Number: NA Group Number: NA
== END 2024-12-01 13:14 | disposition home or self-care (01) ==
PROVIDERS: Visit Provider Physician Assistant
DX: E11.22 Type 2 diabetes mellitus with diabetic chronic kidney disease (principal); N18.4 Chronic kidney disease, stage 4 (severe); Z79.4 Long term (current) use of insulin; E78.5 Hyperlipidemia, unspecified; I12.9 Hypertensive chronic kidney disease with stage 1 through stage 4 chronic kidney disease, or unspecified chronic kidney disease; E11.40 Type 2 diabetes mellitus with diabetic neuropathy, unspecified

== ENCOUNTER → 2024-12-01 12:49 | Outpatient (BNVA) | payer MEDICARE, OTHER, SELFPAY | PROVIDERS: Visit Provider Physician Assistant | DX: I12.9 Hypertensive chronic kidney disease with stage 1 through stage 4 chronic kidney disease, or unspecified chronic kidney disease (principal); E11.22 Type 2 diabetes mellitus with diabetic chronic kidney disease; N18.4 Chronic kidney disease, stage 4 (severe); E78.5 Hyperlipidemia, unspecified; E11.40 Type 2 diabetes mellitus with diabetic neuropathy, unspecified; Z79.4 Long term (current) use of insulin | CPT/HCPCS: 82947; 99212 ==

== ENCOUNTER 2024-12-20 12:22 | Outpatient (AMB) | payer MEDICARE, OTHER, SELFPAY ==
[2024-12-20 13:20] VITALS: BP 122/78; PULSE 71; TEMP 36.4; O2SAT 96; BMI 28.6
--- NOTE | 2024-12-20 13:20 | MHC.OFFWIV ---
Intake Vital Signs 12/20/24 13:20 Height 5 ft 9 in Weight 193 lb 9 oz BMI 28.6 BP 122/78 Blood Pressure Location Rt brachial Position Sitting Pulse 71 Pulse Source Pulse Oximeter Temp 97.5 F Temp Source Oral Pulse Oximetry (%) 96 Oxygen Delivery Method Room Air Intake Visit Reasons: EP-gout Intake Note: Pt presents to the office today for c/o gout in both feet x5 days. Pt states he is unable to sleep due to the pain. Patient Tobacco Use Status: Former Tobacco user Allergies Iodinated Contrast Media [IV Dye, Iodine Containing] Allergy (Severe, Verified 12/20/24 13:24) SWELLING sulfamethoxazole [From Bactrim] Allergy (Severe, Verified 12/20/24 13:24) SWELLING RASH tetracycline [Tetracycline] Allergy (Severe, Verified 12/20/24 13:24) SWELLING , RASH trimethoprim [From Bactrim] Allergy (Severe, Verified 12/20/24 13:24) SWELLING RASH Sulfa (Sulfonamide Antibiotics) Allergy (Unknown, Verified 12/20/24 13:24) hives IVP dye Allergy (Unknown, Uncoded 12/20/24 13:24) Anaphylaxis Renée Dry Allergy (Unknown, Uncoded 12/20/24 13:24) rash tetracycline Allergy (Unknown, Uncoded 12/20/24 13:24) hives HPI EP-gout HPI Details This is an 84-year-old male patient who presents to the walk-in clinic today with report of gout flare in his right foot. This started about 5 days ago without inciting event, and has progressed since then. He reports pain is events, and even his clothing or bed sheets touching his foot is painful. He is on Nucy[facility] ER, and states that taking this as scheduled did not help the pain at all. He states he is starting to also feels similar pain in his left foot. Denies any fevers/chills. [facility] Medical History Surgery, elective Obesity due to excess calories Hx of aneurysm Hx of myocardial infarction Carpal tunnel syndrome Throat cancer Ischemic colitis Pacemaker Diverticulitis BPH (benign prostatic hyperplasia) Type 2 diabetes mellitus with chronic kidney disease Chronic kidney disease, stage 3 Type 2 diabetes mellitus with diabetic polyneuropathy Essential hypertension Hyperlipidemia LDL goal <70 Surgical History History of back surgery H/O neck surgery History of prostate surgery Hx of angioplasty Hx of hernia repair Hx of tonsillectomy Family History Father Prostate cancer Mother Breast cancer Diabetes Social History Household Members: Spouse Patient Tobacco Use Status: Former Tobacco user Tobacco use type: Cigarette Cigarettes Per Day: 10 Years Smoked: 40 Review of Systems Const All systems reviewed & are unremarkable except as noted in HPI and below Physical Exam Vital Signs: Last Vital Signs Temp 97.5 F 12/20/24 13:20 Pulse 71 12/20/24 13:20 BP 122/78 12/20/24 13:20 Pulse Ox 96 12/20/24 13:20 Oxygen Delivery Method Room Air 12/20/24 13:20 BMI result Body Mass Index 28.6 Const General: cooperative and healthy appearing Nutritional Appearance: average body habitus Limitations: no limitations Resp Effort & Inspection: normal respiratory effort Auscultation: clear to auscultation bilaterally Cardio Rate: regular rate Rhythm: regular rhythm Skin General skin exam: no rashes or lesions noted Extrem Other: erythema, ttp dorsal aspect of right foot at distal aspect, primarily great toe, and lesser so on toes 3-5. Right lower extremity: full ROM, normal capillary refill, no joint enlargement and foot Details: abnormal to inspection Ankle/foot/toe images: 1. erythema, ttp Psych Appearance: grossly normal Mental Status: mental status grossly normal Speech and movement: Normal speech and movement present Assessment & Plan Assessment & Plan (1) Gout of right foot: Code(s): M10.9 - Gout, unspecified Qualifiers: Gout etiology: unspecified cause Chronicity: acute Qualified Code(s): M10.9 - Gout, unspecified Plan: Patient consistent with a gout flare. Patient states he had similar flare many years ago. Will start on Colchicine and a Prednisone taper. We reviewed indications, use, possible side effects of these medications. I encouraged him to follow up here or with his PCP should he not improve with treatment. All questions were answered and patient and his present at visit both verbalized understanding and agreed to plan. Medications: New prednisone Take 4 tabs for two days, then take 3 tabs for two days, then take 2 tabs for two days, then take 1 tab for 2 days. 10 mg PO DAILY 20 tabs 0RF M10.9 - Gout, unspecified colchicine Take 2 tabs today one hour apart, then take one tab daily until flare resolves. 0.6 mg PO DAILY 14 tabs 0RF M10.9 - Gout, unspecified Coding Level of Care Code Est Pt Level 4 (17179) Diagnoses Acute gout of right foot, unspecified cause M10.9 Gout etiology: unspecified cause Chronicity: acute
--- OUTSIDE RECORDS SUMMARY | 2024-12-20 14:47 | XMS_ITS | Data Portability ---
Author Organization [place] - [facility] Allergy Address [address] [address] Care Team Providers Care Spot Welder Line Name Role Phone CHRISTIE CAR Referring Provider [...] Go To The Location Of Their Choice, [address] 06/02/2024 21:10:25 Referral None recorded. Procedures None [...] 4.500 above high normal Not Available [facility] ([facility]) [address] [place], [address], 06/02/2024 21:10:25 05/31/2006/02/2024 TSH W/REF LOLIS triiodothyro nine (T3), free 2.6 pg/mL 2.0-4. 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; Note: Date Diagnosed : 03/04/2020 2:33 PM (C32.0) Not Available [facility] 4 02:46:28 Dysphonia 50933478 Active 2019 Hoarsenes s; Note: Date Diagnosed : 11/15/2019 1:00 PM (R49.0) Not Available [facility] 4 02:46:18 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 383624572 Active 2022 Malignant neoplasm of aryepiglo ttic fold NOS; Note: Changed from D38.0 to C13.1 ( 3 12:15 PM) , Date Diagnosed : 02/08/2023 11:22 AM (D38.0) Not Available Count includes the [facility] 4 02:46:18 History of malignant neoplasm of larynx 768479455 Active 2020 Personal history of malignant neoplasm of larynx; Note: Date Diagnosed : 12/12/2020 12:47 PM (Z85.21) Not Available Count includes the [facility] 4 02:46:18 Pharyngea l dysphagia 36040916946 105 Active 2021 Dysphagia , pharyngea l phase; Note: Date Diagnosed : 03/20/2022 11:46 AM (R13.13) Not Available Count includes the [facility] 4 02:46:23 Follow-up visit Active 2019 Encounter for follow-up examinati on after completed treatment for malignant neoplasm; Note: Date Diagnosed : 04/24/2020 8:56 AM (Z08) Not Available Count includes the [facility] 4 02:46:22 Lymphedem a 432688476 Active 2019 Lymphedem a, not elsewhere classifie d; Note: Date Diagnosed : 04/24/2020 9:00 AM (I89.0) Not Available Count includes the [facility] 4 02:46:21 Chronic cough 09081017 Active 2021 Chronic cough; Note: Changed from R05 to R05.3 ( 2 11:46 AM) , Date Diagnosed : 03/20/2022 11:46 AM (R05) Not Available Count includes the [facility] 4 02:46:19 Long-term current use of antiplate let drug 71774306647 4101 Active 2017 shelter (current) use of antithrom botics/an tiplatele ts; Note: Date Diagnosed : 04/23/2017 12:51 PM (Z79.02) Not Available Count includes the [facility] 4 02:46:28 Vasomotor rhinitis 7750153 Active 2020 Vasomotor rhinitis; Note: Date Diagnosed : 01/22/2021 11:42 AM (J30.0) Not Available Count includes the [facility] 4 02:46:22 Neoplasm of uncertain behavior of larynx 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 Active 2019 Neoplasm of uncertain behavior of larynx; Note: Date Diagnosed : 12/19/2019 10:13 AM (D38.0) Not Available Count includes the [facility] 4 02:46:26 Disorder of vocal cord 16458012 Active 2019 Other diseases of vocal cords; Note: Date Diagnosed : 11/15/2019 1:00 PM (J38.3) Not Available Count includes the [facility] 4 02:46:20 Finding of resonance of voice 624143062 Active 2021 Other voice and resonance disorders ; Note: Date Diagnosed : 03/18/2022 5:46 PM (R49.8) Not Available Count includes the [facility] 4 02:46:17 Bleeding from nose 368358197 Active 2017 Epistaxis ; Note: Date Diagnosed : 04/23/2017 12:51 PM (R04.0) Not Available Count includes the [facility] 4 02:46:21 Edema of larynx following radiother apy 722784261 Active 2023 MELVIN QUINN MD 100 [facility] [address], [place], [address] , [facility] 4 10:25:49 Abnormal auditory perceptio n 48703456 Active 2023 MELVIN QUINN MD 100 [facility],[address], [place], [address] , [place] [facility] 4 10:26:03 Bilateral tinnitus 01528876895 02 Active 2023 MELVIN QUINN MD [address], [place], [address] , [facility] - [facility] 4 10:26:07 Oropharyn geal dysphagia 40028935 Active 2023 MELVIN QUINN MD [address], [place], [address] , [facility] - [facility] 4 10:26:16 Sensorine ural hearing loss of bilateral ears 887775908 Active 2023 COLIN JIMENEZ [place], [facility] [address] [facility] [address] [facility], [place], [address] , [facility] 4 11:01:59 Problem Notes None recorded. Procedures Surgical History Date Name Laterality Status Provider Name and Address Organization Details Recorded Time 09/21/20 24 Fiberoptic Laryngoscopy (Comprehensive) completed MELVIN AKERS MD [address] [facility], [place], [address], [facility] - [facility] 09/21/2024 11:34:17 05/31/20 24 Fiberoptic Laryngoscopy (Comprehensive) completed MELVIN AKERS MD [address] [facility], [place], [address], [facility] - [facility] 05/30/2024 10:05:32 02/16/20 24 Comp Audio with Tymps (59176 & 33123) completed COLIN JIMENEZ MA, CCC-A [address], [place], [address], [facility] - [facility] 02/16/2024 11:01:33 02/16/20 24 Fiberoptic Laryngoscopy (Comprehensive) completed MELVIN AKERS MD [address], [place], [address], [facility] - [facility] 02/16/2024 10:25:42 02/24/20 23 Laryngoscopy with biopsy completed MELVIN AKERS MD [address], [place], [address], [place] [facility] [place] 02/14/2024 18:47:38 12/19/19 Laryngoscopy for treatment completed MELVIN AKERS MD [address], [place], [address], [place] [facility] [place] 02/14/2024 18:47:06 insertion of stent into aorta completed MELVIN AKERS MD [address] [facility] [address], [place], [address], [place] [facility] 09/21/2024 11:35:38 peripheral arterial bypass completed MELVIN AKERS MD [address] [facility], [place], [address], [place] [facility] 09/21/2024 11:35:45 Imaging Results Imaging Date Name Status [facility] Details LastModified Time 11/17/2019 imaging/diag nostic result [...] Name and Address Organization Details Recorded Time 09409 Bactrim medicatio n other Not available Not available 02/15/2024 10585 9 RxNorm React ion: unkno wn, unspe cifie d;; Not Available [facility] 4 01:04:16 45432 Medicinal product containin g tetracycl ine structure and acting as antibacte rial agent (product) medicatio n other Not available Not available 02/15/2024 64633 1004 SNOMED React ion: unkno wn, unspe cifie d;; Not Available [facility] 4 01:04:19 Medications Name Sig Start Date Stop Date Status Note LastModified by Organization Details LastModified Time metformin 500 mg tablet 04/23 completed Medicati on ID: [id number] D uration Value: 90 Brand Name: metformi n Send Method: E-Prescr ibed Sub s Allowed: subs OK Medic ationGen ericName : metformi n Not Available Not Available Not Available atorvasta tin 80 mg tablet TAKE 1 TABLET BY MOUTH DAILY active Not Available Not Available No t Available gabapenti n 600 mg tablet 12/18 completed Medicati on ID: [id number] B rand Name: gabapent in Send Method: [...] 24 hr 04/23 completed Medicati on ID: [id number] D uration Value: 30 Brand Name: oxybutyn in chloride Send Method: E-Prescr ibed Sub s Allowed: subs OK Medic ationGen ericName : oxybutyn in chloride Not Available Not Available Not Available atenolol 100 mg tablet 2020 active Medicati on ID: 164430 B rand Name: atenolol Send Method: E-Prescr ibed Sub s Allowed: subs OK Medic ationGen ericName : atenolol Not Available Not Available Not Available glipizide ER 10 mg tablet, extended release 24 hr 04/23 completed Medicati on ID: [id number] D uration Value: 90 Brand Name: glipizid [...] mg capsule 12/18 completed Medicati on ID: [id number] B rand Name: gabapent in Send Method: E-Prescr ibed Sub s Allowed: subs OK Medic ationGen ericName : gabapent in Not Available Not Available Not Available Zyrtec 10 mg tablet Take 1 tablet by mouth as directed 2021 active Medicati on ID: 490456 D uration Value: 1 Brand Name: Zyrtec S end Method: E-Prescr ibed Sub s Allowed: subs OK Speci al Instruct ion: take one tablet by mouth [address] Scan Med icationG enEvelio me: Zyrtec Not Available Not Available Not Available clopidogr el 75 mg tablet 12/17 completed Medicati on ID: 217898 D uration Value: 90 Brand Name: clopidog rel Send Method: E-Prescr ibed Sub s Allowed: subs OK Medic ationGen ericName : clopidog rel Not Available Not Available Not Available amlodipin e 5 mg tablet 04/23 completed Medicati on ID: 246355 D uration Value: 90 Brand Name: amlodipi ne Send Method: E-Prescr ibed Sub s Allowed: subs OK Medic ationGen ericName : amlodipi ne Not Available Not Available Not Available tramadol 50 mg tablet 04/23 completed Medicati on ID: 591993 D uration Value: 90 Brand Name: tramadol Send Method: E-Prescr ibed Sub s Allowed: subs OK Medic ationGen ericName : tramadol Not Available Not Available Not Available lorazepam 0.5 mg tablet TAKE 1 TABLET BY MOUTH TWICE DAILY active Not Available Not Available No t Available prednison e 1 mg tablet 12/18 completed Medicati on ID: 056512 B rand Name: predniso ne Send Method: [...] mg tablet 04/23 completed Medicati on ID: 507227 D uration Value: 90 Brand Name: allopomid nol Send Method: E-Prescr ibed Sub s Allowed: subs OK Medic ationGen ericName : allopuri nol Not Available Not Available Not Available furosemid e 20 mg tablet TAKE 1 TABLET BY MOUTH DAILY active Not Available Not Available No t Available ipratropi um bromide 42 mcg (0.06 %) nasal spray 12/18 completed Medicati on ID: [id number] B rand Name: ipratrop ium bromide Send [...] by mouth 2019 active Medicati on ID: [id number] D uration Value: 1 Prescri bed By Name: RODERICK Chacon nd Name: Benadryl Allergy Send Method: E-Prescr ibed Sub s Allowed: subs OK Speci al Instruct ion: take 2 tablets [address] scan Med icationG enericNa me: Benadryl Allergy Not Available Not Available Not Available olmesarta n 5 mg tablet 12/18 completed Medicati on ID: [id number] B rand Name: olmesart an Send Method: E-Prescr ibed Sub s Allowed: subs OK Medic ationGen ericName : olmesart an Not Available Not Available Not Available olmesarta n 20 mg tablet 2020 active Medicati on ID: [id number] B rand Name: olmesart an Send Method: E-Prescr ibed Sub s Allowed: subs OK Medic ationGen ericName : olmesart an Not Available Not Available Not Available escitalop angie 10 mg tablet 04/23 completed Medicati on ID: 422250 D uration Value: 90 Brand Name: escitalo pram oxalate Send Method: E-Prescr ibed Sub s Allowed: subs OK Medic ationGen ericName : escitalo pram oxalate Not Available Not Available Not Available Novolog FlexPen U-100 Insulin aspart 100 unit/mL (3 mL) subcutane ous 2020 active Medicati on ID: 647195 B rand Name: Novolog Flexpen U-100 Insulin Send Method: E-Prescr ibed Sub s Allowed: subs OK Medic ationGen ericName : Novolog Flexpen U-100 Insulin Not Available Not Available Not Available pregabali n 150 mg capsule 2020 active Medicati on ID: [id number] B rand Name: pregabal in Send Method: E-Prescr ibed Sub s Allowed: subs OK Medic ationGen ericName : pregabal in Not Available Not Available Not Available Lyrica 75 mg capsule 04/23 completed Medicati on ID: [id number] D uration Value: 90 Brand Name: Lyrica [...] ous pen injector active Medicati on ID: [id number] B rand Name: Anuradhait y Send Method: E-Prescr ibed Sub s Allowed: subs OK Medic ationGen ericName : Anuradhait y Not Available Not Available Not Available Tresiba FlexTouch U-200 insulin 200 unit/mL (3 mL) subcutane ous pen INJECT 28 UNITS SUBCUTAN EOUSLY ONCE DAILY AT NIGHT active Not Available Not Available No t Available BD Ultra-Fin e Micro Pen Needle 32 gauge x 1/4 12/18 completed Medicati on ID: [id number] B rand Name: BD Ultra-Fi ne Micro Pen Needle S end Method: E-Prescr ibed Sub s Allowed: subs OK Medic ationGen ericName : BD Ultra-Fi ne Micro Pen Needle Not Available Not Available Not Available Ozempic 0.25 mg or 0.5 mg (2 mg/1.5 mL) subcutane ous pen injector 2020 active Medicati on ID: [id number] B rand Name: Ozempic Send Method: E-Prescr [...] Updated DateTime 05/31/2024 172.72 cm 30.6 kg/m2 16392.07 g Malik Joiner [place] - [facility] 05/31/2024 09:57:53 Date Recorded Body weight Body mass index (BMI) Body height Provider Name and Address Organization Details Last Updated DateTime 02/16/2024 33925.29 g 30.1 kg/m2 172.72 cm Malik Joiner [place] - [facility] 02/16/2024 10:11:40 Date Recorded Body height Body mass index (BMI) Body weight Provider Name and Address Organization Details Last Updated DateTime 09/21/2024 172.72 cm 30.4 kg/m2 33667.47 g Malik Joiner [place] - [facility] 09/21/2024 11:15:52 Social History Question Answer Notes LastModified by Organizat ion Details LastModified Time Tobacco Smoking Status Never Smoker Malik craig [place] - [facility] 02/16/2024 10:08:12 What Is Your Level Of Alcohol Consumption? None [email or web address] Information not available 02/16/2024 Do You Use Any Illicit Or Recreational Drugs? No [email or web address] Information not available 02/16/2024 Do You Or Have You Ever Used Any Other Forms Of Tobacco Or Nicotine? No [email or web address] Information not available 02/16/2024 Sex: Unknown Functional Status None recorded. Mental Status None recorded. Family History Nothing Reported. Medical History Condition Response Diabetes Y Hyperlipidemia Y High Cholesterol Y Hypertension Y Past Encounters Encounter ID Performer Location Encounter Start Date Encounter Closed Date Diagnosis/Indication Diagnosis SNOMED-CT Code Diagnosis ICD10 Code Diagnosis Note [id number] MELVIN QUINN MD [facility] [address] [address] 02/16/2024 10:01:00 02/16/2024 11:03:28 Abnormal auditory perception 15979474 H93.299 Bilateral tinnitus 09844 04467 102 H93.13 Oropharyng eal dysphagia 54527261 R13.12 Sensorineu ral hearing loss of bilateral ears 924960417 H90.3 Normal hearing thru 1000Hz sloping to a mild to to severe sensorineu ral hearing loss with excellent speech discrimina tion ability for both ears.Type A tympanogra ms. Declines amplificat ion History of malignant neoplasm of larynx 895687762 Z85.21 Chronic hoarseness 75668 88010 105 R49.0 Edema of l arynx following radiotherapy 230242119 J38.4 [id number] COLIN JIMENEZ MA, CCC-A [facility] [address] [address] 02/16/2024 10:57:00 02/17/2024 22:38:16 Sensorineural hearing loss of bilateral ears 947497120 H90.3 Normal hearing thru 1000Hz sloping to a mild to to severe sensorineu ral hearing loss with excellent speech discrimina tion ability for both ears.Type A tympanogra ms. Bilateral tinnitus 97931 66267 102 H93.13 [id number] MELVIN QUINN MD [facility] [address] [address] 05/31/2024 09:51:42 05/31/2024 10:31:47 History of malignant neoplasm of larynx 002750093 Z85.21 Chronic hoarseness 70814 84507 105 R49.0 Edema of l arynx following radiotherapy 276513260 J38.4 Bilateral tinnitus 55400 70786 102 H93.13 Oropharyng eal dysphagia 04089616 R13.12 Sensorineu ral hearing loss of bilateral ears 545321784 H90.3 [id number] MELVIN QUINN MD [facility] [address] [address] 09/21/2024 10:58:20 09/21/2024 11:41:36 History of malignant neoplasm of larynx 806193404 Z85.21 Chronic hoarseness 33715 52736 105 R49.0 Edema of l arynx following radiotherapy 225523041 J38.4 Bilateral tinnitus 36558 88834 102 H93.13 Oropharyng eal dysphagia 97929764 R13.12 Sensorineu ral hearing loss of bilateral ears 726268939 H90.3 Health Concerns Section Related Observation LastModified by Organization Detai ls LastModified Time None Recorded Concern Status LastModified by Organization Details LastModified Time None Recorded Advance Directives Directive None Recorded Payers Encounter Date Sequence Insurance Name Policy Number Policy Purcell Covered Member ID Purcell Member ID Guarantor Name 02/16/2024 2 [facility] INDEMNITY PLAN - [place] (INDEMNITY) [id number] Mark Anthony Omalley [id number] Mark Anthony Omalley 02/16/2024 1 [place] [facility] [employer] Mark Anthony Omalley [id number] Mark Anthony Omalley 02/16/2024 2 [facility] INDEMNITY PLAN - [place] (INDEMNITY) [id number] Mark Anthony Richards Fugere [id number] Mark Anthony Omalley 02/16/2024 1 [place] B-[place]: [facility] Mark Anthony Cummingsere [id number] Mark Anthony Cummingsere 05/31/2024 2 [facility] INDEMNITY PLAN - [place] (INDEMNITY) [id number] Mark Anthony Richards Fugere [id number] Mark Anthony Omalley 05/31/2024 1 [place] [facility] Mark Anthony Cummingsere [id number] Mark Anthony Omalley 09/21/2024 2 [facility] INDEMNITY PLAN - [place] (INDEMNITY) [id number] Mark Anthony Richards Fugere [id number] Mark Anthony Omalley 09/21/2024 1 [place]: [facility] Mark Anthony Omalley [id number] Mark Anthony Omalley Notes Date Note Type [...] use water to swallow MELVIN AKERS MD [address] [place] [address],[address], [address], [facility] 02/16/2024 12:28:07 02/16/2024 text/html tinnitus COLIN JIMENEZ MA, CCC-A [address] [facility],[address], [address], [facility] 02/16/2024 11:07:36 05/31/2024 text/html Hearing Loss [...] possible peripheral bypass tomorrow. MELVIN AKERS MD [address] [place] [address], [address], [facility] 05/31/2024 10:20:02 09/21/2024 text/html Hearing Loss [...] possible peripheral bypass tomorrow. MELVIN AKERS MD [address] [place] [address], [place], [address], [place] [facility] 09/21/2024 13:02:16
--- OUTSIDE RECORDS SUMMARY | 2024-12-20 14:47 | XMS_ITS | Clinical Summary ---
Author Organization [facility] Address [address] [place] [address] Phone Care Team Providers Care Ramp Service Agent Name Role Phone Mercy Grewal Primary Care Provider Allergies Active Allergy Reactions Criticality Noted Date [...] 10/09/2024 Refill [facility] [address] [place] [address] Rosita Hines MA from Last [...] Insurance UNICARE MEDICARE UNICARE MEDICARE Care Teams Ramp Service Agent Relationship Specialty Start Date End Date Mercy Grewal [address] [place] [address] PCP - General 03/03/23
--- OUTSIDE RECORDS SUMMARY | 2024-12-20 14:47 | XMS_ITS | Encounter Summary ---
Author Organization [place] [address] Care Team Providers Care Publications Writer Name Role Phone Marni Ferguson MD Primary Care Provider Reason for Visit * Reason Onset Date Comments Provider Call Back 12/11/2024 Encounter Details Date Type Department Care Team (Late st Contact Info) Description 12/11/2024 Telephone [facility] [place] [address] [place] [address] Ahmet Banks MD [address] [place] [address] Provider Call Back Social History Tobacco Use Types Packs/Day Years [...] PM EST documented as of this encounter Progress Notes * Guillermo Hendricks MA - 12/11/2024 3:19 PM EDT Appt made * Guillermo Hendricks MA - 12/11/2024 3:00 PM EDT Right calf pain on ambulation, and at distance legs feel like rubber. This started before the ultrasound and has been constant no increase. * Cezar Ortiz - 12/11/2024 2:04 PM EDT Patient called expressing that he is experiencing a lot of leg pain, making it difficult to walk. No discoloration as of right now. Patient is requesting a call back to know the results of imaging and get an earlier appt. documented in this encounter Plan of Treatment Upcoming Encounters Date Type Department Care Team (Late st Contact Info) Description 12/22/2024 11:45 AM EDT Office Visit [facility] [place] [address] [place] [address] Ahmet Banks MD [address] [place] [address] 05/16/2025 10:30 AM EDT Ancillary Procedure [facility] [address] [facility] [address] [place] [address] documented as of this encounter Visit Diagnoses Not on filedocumented in this encounter Additional Health Concerns Infection Onset Date Last Indicated Resolved Time Human Metapneumovirus 10/27/2024 10/27/2024 documented as of this encounter Care Teams Publications Writer Relationship Specialty Start Date End Date Marni Ferguson MD [address] [place] [phone] PCP - General Internal Medicine 10/26/24 documented as of this encounter
--- OUTSIDE RECORDS SUMMARY | 2024-12-20 14:47 | XMS_ITS | Encounter Summary ---
[facility] [place] [address] Care Team Providers Care Director Child Name Role Phone Marni Ferguson MD Primary Care Provider [phone] Encounter Details Date Type Department Care Team (Late Contact Info) Description 11/22/2024 9:40 AM EST Ancillary Procedure [facility] [address] [facility] [address] [place] [id number] Social History Tobacco Use Types Packs/Day Years [...] AM EDT Office Visit [facility] - [place] [address] [place] [phone] Ahmet Banks MD [address] [facility] [address] [place] [address] 05/16/2025 10:30 AM EDT Ancillary Procedure [facility] - [address] [place] [address] documented as of this encounter Procedures Procedure Name Priority Date/Time Associated Diagnosis Comments CARDIAC DEVICE CHECK- REMOTE- MURJ Routine 11/22/2024 9:36 AM EST documented in this encounter Results * Cardiac device check - Remote- MURJ (11/22/2024 9:36 AM EST) Date Time Interrogation Session [id number] CV DEVICE CHECK Type Interrogation Session Remote CV DEVICE CHECK Implantable Pulse Generator Slat Basket Maker Machine MDT CV DEVICE CHECK Implantable Pulse Generator Type IPG CV DEVICE CHECK Implantable Pulse Generator Model [place] XT DR LAMA [id number] CV DEVICE CHECK Implantable Pulse Generator Serial Number [id number] CV DEVICE CHECK Implantable Pulse Generator Implant Date 20220417 CV DEVICE CHECK Battery Remaining Longevity 106.0 CV DEVICE CHECK Battery Voltage 3.000 CV D EVICE CHECK Battery LEAD WEB DEVELOPER Trigger 2.625 CV DEVICE CHECK Battery Status Middle of Service CV DEVICE CHECK Jag Statistic RA Percent Paced 99.51 CV DEVICE CHECK Jag Statistic RV Percent Paced 99.53 CV DEVICE CHECK Atrial Tachy Statistic AT/AF Herod Percent 0.00 CV DEVICE CHECK Lead Channel [...] documented as of this encounter Care Teams Director Child Relationship Specialty Start Date End Date Marni Ferguson MD [address] [place] [phone] PCP - General Internal Medicine 10/26/24 documented as of this encounter
--- OUTSIDE RECORDS SUMMARY | 2024-12-20 14:47 | XMS_ITS | Clinical Summary ---
Author Organization [address] [facility] Address [address] [place] [address] Phone Care Team Providers Care Extension Agent Name Role Phone Marni Ferguson MD Primary Care Provider [phone] Allergies Active Allergy Reactions Criticality Noted Date [...] DAY 2 Active flash glucose scanning reader (IROCKEStIotum Vivek 2 [place] [facility] [place] 1 Product by Does [...] underwent bilateral radiofrequency ablation on 10/08/2022 at [facility] with some improvement lasting 1 month. [...] hyperplasia) 08/09/2020 Coronary artery disease invo lving [place] heart without angina pectoris 08/09/2020 Overview (08/29/2024): [...] Encounters Date Type Department Care Team Description 12/11/2024 Telephone Vascular Surgery - [place] [facility] [address] [place] [address] Ahmet Banks MD Provider Call Back 11/29/2024 10:30 AM EST Ancillary Procedure [facility] Cardiology [facility] 101 [address] [facility] [address] [place] [address] Acute deep vein thrombosis (DVT) of femoral vein of right lower extremity (CMS/HCC); Leg edema; Bilateral leg pain 11/24/2024 10:30 AM EST Ancillary Procedure [facility] Cardiology [facility] 101 [address] [facility] [address] [place] [address] Infrarenal abdominal aortic aneurysm (AAA) without rupture (CMS/HCC); Occlusion of arterial bypass graft, subsequent encounter; Bilateral leg pain 11/22/2024 9:40 AM EST Ancillary Procedure [facility] - [facility] [address] [facility] [address] [place] [address] 11/03/2024 1:30 PM EST Office Visit Vascular Surgery - [place] [address] [place] [address] Ahmet Banks MD Infrarenal abdominal aortic aneurysm (AAA) without rupture (CMS/HCC) (Primary Dx); Occlusion of arterial bypass graft, subsequent encounter; Acute deep vein thrombosis (DVT) of femoral vein of right lower extremity (CMS/HCC); Leg edema; Bilateral leg pain 10/31/2024 11:30 AM EST - 10/31/2024 12:30 PM EST Surgery [facility] Cardiac Certified Hand Therapist [address] [place] [address] Ahmet Banks MD Angiography lower ext right [92015 (CPT??)] 10/31/2024 9:42 AM EST - 10/31/2024 6:38 PM EST Hospital Encounter [facility] Cardiac Certified Hand Therapist [address] [place] [address] Ahmet Banks MD Occlusion of arterial bypass graft, initial encounter (CMS/HCC) Discharge Disposition: Home or Self Care 10/28/2024 4:41 PM EST - 10/28/2024 6:55 PM EST Emergency [facility] Emergency [address] [place] [phone] Bleeding (Primary Dx) Discharge Disposition: Home or Self Care 10/26/2024 5:17 PM EST - 10/28/2024 1:22 PM EST Emergency [facility] Medical Surgical Unit [address] [place] [address] Maximus Goins MD Jones, Christopher, MD Kela, Kashyap Devendrabhai, MD Deep vein thrombosis (DVT) of proximal lower extremity, unspecified chronicity, unspecified laterality (CMS/HCC) (Primary Dx); Epistaxis Discharge Disposition: Home or Self Care 10/26/2024 4:23 PM EST - 10/26/2024 11:59 PM EST Hospital Encounter [facility] Ultrasound [address] [facility] [place] [address] Acute deep vein thrombosis (DVT) of right peroneal vein ([facility]) Discharge Disposition: Home or Self Care 10/25/2024 10:30 AM EST Ancillary Procedure [facility] - [address] [address] [place] [address] PAD (peripheral artery disease) (CMS/HCC) from Last 3 Months Immunizations Name Administration [...] Site/Laterality Comments KNEE ARTHROSCOPY 2009 Right PROCEDURE: LA ARTHROSCOPY KNEE DIAGNOSTIC W/WO SYNOVIAL BX SPX; COMMENT: Meniscus TURP / TRANSURETHRAL INCISIO N / DRAINAGE PROSTATE 2004 PROCEDURE: HISTORICAL TURP OTHER SURGICAL HISTORY PROCEDURE: LA DUP-SCAN LXTR ART/ARTL BPGS UNI/LMTD STUDY; COMMENT: Angioplasty and stenting of the left leg PACEMAKER IMPLANT PROCEDURE: HISTORICAL PACEMAKER COLONOSCOPY 2011 PROCEDURE: HISTORICAL COLONOSCOPY OTHER SURGICAL HISTORY PROCEDURE: LA BIOPSY OROPHARYNX; COMMENT: Throat cancer had radiation x6 weeks [facility] EYE SURGERY PROCEDURE: HISTORICAL EYE SURGERY; COMMENT: [place] TONSILLECTOMY PROCEDURE: HISTORICAL TONSILLECTOMY OTHER SURGICAL HISTORY PROCEDURE: ---- HEMORRHOIDS ---- HERNIA REPAIR Bilateral PROCEDURE: REPAIR INGUINAL HERNIA CORONARY ARTERY BYPASS GRAFT 1996 PROCEDURE: HISTORICAL CABG; COMMENT: x4 NECK SURGERY PROCEDURE: HISTORICAL NECK SURGERY CARPAL TUNNEL RELEASE Right PROCEDURE: LA NEUROPLASTY &/TRANSPOS MEDIAN NRV CARPAL TUNNE; COMMENT: dr. cazares BACK SURGERY 10/08/2022 Bilateral PROCEDURE: HISTORICAL BACK SURGERY; COMMENT: Bilateral L3, L4 and L5 radiofrequency neurotomy Dr. Sahu OTHER SURGICAL HISTORY 06/15/2023 PROCEDURE: LA SLCTV CATHJ 3RD+ ORD SLCTV ABDL PEL/LXTR BRNCH OTHER SURGICAL HISTORY 06/15/2023 PROCEDURE: LA SLCTV CATHJ EA 2ND+ ORD ABDL PEL/LXTR ART BRNCH OTHER SURGICAL HISTORY 06/15/2023 PROCEDURE: X-RAY EXAM OF ARM/LEG ARTERY OTHER SURGICAL HISTORY 06/15/2023 PROCEDURE: ULTRASOUND GUIDANCE FOR VASCULAR AC OTHER SURGICAL HISTORY 06/01/2024 PROCEDURE: LA EVASC RPR DPLMNT [id number] NDGFT OTHER SURGICAL HISTORY 06/01/2024 PROCEDURE: LA OPN ILIAC ART EXPOS PROSTH/ILIAC OCCLS EVASC UNI OTHER SURGICAL HISTORY 06/01/2024 PROCEDURE: LA PERQ ACCESS & CLOSURE FEM ART FOR DELIVERY NDGFT OTHER SURGICAL HISTORY 06/01/2024 PROCEDURE: LA REVASC INTRAVASC LITHOTRIPSY OTHER SURGICAL HISTORY 06/28/2024 Left PROCEDURE: LA BYP OTH/THN VEIN FEM-ANT TIBL PST TIBL/PRONEAL Medical History Medical History Date Comments 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 ([facility]) 08/09/2020 DX: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 Pacemaker 08/09/2020 DX:Pacemaker ST elevation myocardial infa rction (STEMI) ([facility]/HCC) 08/09/2020 DX:ST elevation myocardial infarction (STEMI) (HCC) Throat cancer ([facility]) 08/09/2020 DX:Throa t cancer (HCC); COMMENT: 2020: received RT Hyperlipidemia 08/09/2020 DX:Hyperlipidemi a HTN (hypertension) 08/09/2020 DX:HTN (hyper tension) History of diverticulitis 08/09/2020 DX:His tory of diverticulitis Peripheral vascular disease ([facility]/HCC) 08/09/2020 DX:Peripheral vascular disease (HCC) Diabetic neuritis ([facility]) 08/09/2020 DX:D iabetic neuritis (HCC) Gastroesophageal reflux dise ase without esophagitis 08/09/2020 [...] AM EDT Office Visit Vascular Surgery - [place] [address] [place] [address] Ahmet Banks MD [address] [place] [address] 05/16/2025 10:30 AM EDT Ancillary Procedure [facility]iology Associates - [facility] [address] [facility] [address] [place] [phone] Health Maintenance Due Date Last Done Comments [...] this topic Medical Devices Implanted Type Area Pediatric Dietician Device Identifier Shelf Expiration Date Model / Serial / Lot Medt-Card Kendell Xt Dr Artis [id number] Implanted: (Quantity not on file) Cardiac Pacemaker [employer] - CARDIAC RHYTH-CRDM KENDELL XT DR ARTIS [id number] / [id number] / Procedures Procedure Name Priority Date/Time Associated [...] artery disease) (CMS/HCC) HEMOGLOBIN A1C Routine 03/22/2024 HM URINE ALBUMIN CREATININE RATIO Routine 09/08/2023 LIPID [...] trendelenburg. Left saphenopopliteal junction was not identified. Computer Systems Support Specialist Details A mitchell scale, color and doppler [...] PSV 28 cm/s CV VAS LAB Left RECEIVING TANK OPERATOR prox sys PSV 60 cm/s CV VAS [...] PSV 19 cm/s CV VAS LAB Right RECEIVING TANK OPERATOR prox sys PSV 74 cm/s CV VAS [...] The mid peroneal artery has triphasic flow. Computer Systems Support Specialist Details A mitchell scale, color and doppler [...] 9:36 AM EST) Date Time Interrogation Session [id number] CV DEVICE CHECK Type Interrogation Session Remote CV DEVICE CHECK Implantable Pulse Generator Pediatric Dietician MDT CV DEVICE CHECK Implantable Pulse Generator Type IPG CV DEVICE CHECK Implantable Pulse Generator Model Kendell XT DR MRI [id number] CV DEVICE CHECK Implantable Pulse Generator Serial Number [id number] CV DEVICE CHECK Implantable Pulse Generator Implant Date [id number] CV DEVICE CHECK Battery Remaining Longevity 106.0 CV DEVICE CHECK Battery Voltage 3.000 CV D EVICE CHECK Battery INSEMINATION WORKER Trigger 2.625 CV DEVICE CHECK Battery Status Middle of Service CV DEVICE CHECK Jag Statistic RA Percent Paced 99.51 CV DEVICE CHECK Jag Statistic RV Percent Paced 99.53 CV DEVICE CHECK Atrial Tachy Statistic AT/AF Reed Percent 0.00 CV DEVICE CHECK Lead Channel [...] Final Result * (ABNORMAL) POCT activated clotting time,chas (10/31/2024 1:31 PM EST) Activated Clotting Time Chas 176(H) 74 - 137 sec 10/31/2024 1:33 PM EST [facility] ([facility] Blood Arterial blood specimen / Unknown 10/31/2024 1:31 PM EST 10/31/2024 1:34 PM EST Ahmet Banks MD LAB POINT OF CARE TE ST DOCKED DEVICE UNSOLICITED RESULTS Final Result [facility] [address] [place] [address], [place] [phone] * ANGIOGRAPHY LOWER EXT RIGHT (10/31/2024 12:53 [...] of8 resultswithin the time period is included. Glucose POCT 101(H) 70 - 100 mg/dL 10/28/2024 11:[address] [facility] Blood Capillary blood specimen / Unknown 10/28/2024 11:25 AM EST 10/28/2024 11:27 AM EST Francisco Calixto MD LAB POINT O F CARE TEST DOCKED DEVICE UNSOLICITED RESULTS Final Result [facility] [address] [place] [address], [place] [phone] * (ABNORMAL) CBC auto differential (10/28/2024 6:20 AM EST) Only the most recent of3 resultswithin the time period is included. WBC 6.9 4.8 - 10.8 K/mcL LAB HEMETOLOGY METHOD 10/28/2024 7:[address] [facility] RBC 3.00(L) 4.50 - 5.50 M/mcL LAB HEMETOLOGY METHOD 10/28/2024 7:[address] [facility] Hemoglobin 10.0(L) 13.5 - 17.5 g/dL LAB HEMETOLOGY METHOD 10/28/2024 7:47 AM [facility] Hematocrit 31.2(L) 42.0 - 54.0 % LAB HEMETOLOGY METHOD 10/28/2024 7:47 AM [facility] MCV 105.1(H) 79.0 - 98.0 FL LAB HEMETOLOGY METHOD 10/28/2024 7:47 AM [facility] MCH 33.7(H) 27.0 - 32.0 pcg LAB HEMETOLOGY METHOD 10/28/2024 7:47 AM [facility] MCHC 32.1 32.0 - 37.0 g/dL LAB HEMETOLOGY METHOD 10/28/2024 7:47 AM [facility] RDW 15.6(H) 11.0 - 15.0 % LAB HEMETOLOGY METHOD 10/28/2024 7:47 AM [facility] Platelets 188 130 - 400 K/mcL LAB HEMETOLOGY METHOD 10/28/2024 7:47 AM [facility] MPV 10.2 7.0 - 11.0 FL LAB HEMETOLOGY METHOD 10/28/2024 7:47 AM [facility] NRBC 0.0 <1.0 % LAB HEMETOLOGY METHOD 10/28/2024 7:47 AM [facility] NRBC Absolute 0.00 <0.10 K/mcL LAB HEMETOLOGY METHOD 10/28/2024 7:47 AM [facility] Neutrophils Relative 53.6 % LAB HEMETOLOGY METHOD 10/28/2024 7:47 AM [facility] Lymphocytes Relative 28.4 % LAB HEMETOLOGY METHOD 10/28/2024 7:47 AM [facility] Monocytes Relative 13.4 % LAB HEMETOLOGY METHOD 10/28/2024 7:47 AM [facility] Eosinophils Relative 3.9 % LAB HEMETOLOGY METHOD 10/28/2024 7:47 AM [facility] Basophils Relative 0.4 % LAB HEMETOLOGY METHOD 10/28/2024 7:47 AM [facility] Immature Granulocytes Relative 0.3 % LAB HEMETOLOGY METHOD 10/28/2024 7:47 AM [facility] Neutrophils Absolute 3.67 1.50 - 7.00 K/mcL LAB HEMETOLOGY METHOD 10/28/2024 7:[address] [facility] Lymphocytes Absolute 1.95 1.00 - 5.00 K/mcL LAB HEMETOLOGY METHOD 10/28/2024 7:47 AM [facility] Monocytes Absolute 0.92 0.20 - 1.00 K/mcL LAB HEMETOLOGY METHOD 10/28/2024 7:[address] [facility] Eosinophils Absolute 0.27 0.00 - 0.50 K/mcL LAB HEMETOLOGY METHOD 10/28/2024 7:47 AM [facility] Basophils Absolute 0.03 0.00 - 0.20 K/mcL LAB HEMETOLOGY METHOD 10/28/2024 7:47 AM [facility] Immature Granulocytes Absolute 0.02 0.00 - 0.03 K/mcL LAB HEMETOLOGY METHOD 10/28/2024 7:47 AM [facility] Blood Venous blood specimen / Unknown Venipuncture / Unknown 10/28/2024 6:20 AM EST 10/28/2024 7:00 AM EST Mago CHACON LAB BLOOD ORDERABLES Final Result [facility] [address] [place] [address], * Magnesium (10/28/2024 6:20 AM EST) [facility] Magnesium 2.2 1.9 - 2.6 mg/dL LAB CHEMISTRY METHOD 10/28/2024 7:52 AM [facility] Blood Venous blood specimen / Unknown Venipuncture / Unknown 10/28/2024 6:20 AM EST 10/28/2024 7:00 AM EST Mago CHACON LAB BLOOD ORDERABLES Final Result [facility] [address] [place] [address], [place] [phone] * (ABNORMAL) Basic metabolic panel (10/28/2024 6:20 AM EST) Only the most recent of3 resultswithin the time period is included. [facility] Sodium 143 133 - 145 mmol/L LAB CHEMISTRY METHOD 10/28/2024 7:52 AM [facility] Potassium 4.0 3.5 - 5.5 mmol/L LAB CHEMISTRY METHOD 10/28/2024 7:52 AM [facility] Chloride 114(H) 96 - 110 mmol/L LAB CHEMISTRY METHOD 10/28/2024 7:52 AM [facility] CO2 23 21 - 32 mmol/L LAB CHEMISTRY METHOD 10/28/2024 7:52 AM [facility] Anion Gap 6 3 - 11 LAB CHEMISTRY METHOD 10/28/2024 7:52 AM [facility] Glucose 107(H) 70 - 100 mg/dL LAB CHEMISTRY METHOD 10/28/2024 7:52 AM [facility] BUN 24 5 - 25 mg/dL LAB CHEMISTRY METHOD 10/28/2024 7:52 AM [facility] Creatinine 1.58(H) 0.70 - 1.30 mg/dL LAB CHEMISTRY METHOD 10/28/2024 7:52 AM [facility] eGFR 43(L) >=60 mL/min/1. 73m2 LAB CHEMISTRY METHOD 10/28/2024 7:[address] [facility] Comment:Calculation based on the??Chronic Kidney Disease Epidemiology Collaboration (CKD-EPI) equation refit??without adjustment for race. BUN/Creatinine Ratio 15.2 LAB CHEMISTRY METHOD 10/28/2024 7:52 AM [facility] Calcium 8.4(L) 8.5 - 10.5 mg/dL LAB CHEMISTRY METHOD 10/28/2024 7:52 AM [facility] Blood Venous blood specimen / Unknown Venipuncture / Unknown 10/28/2024 6:20 AM EST 10/28/2024 7:00 AM EST us Mago CHACON LAB BLOOD ORDERABLES Final Result Performing Organization Address City/[facility]/ZIP Co de Phone Number [facility] [address] [place] [address], [place] [phone] * (ABNORMAL) Hemoglobin and hematocrit (10/27/2024 7:01 PM EST) Hemoglobin 9.9(L) 13.5 - 17.5 g/dL LAB HEMETOLOGY METHOD 10/27/2024 7:24 PM [facility] Hematocrit 30.7(L) 42.0 - 54.0 % LAB HEMETOLOGY METHOD 10/27/2024 7:24 PM [facility] Blood Venous blood specimen / Unknown Venipuncture / Unknown 10/27/2024 7:01 PM EST 10/27/2024 7:20 PM EST us Mago CHACON LAB BLOOD ORDERABLES Final Result [facility] [address] [place] [address], [place] [phone] * Type and screen (10/27/2024 7:01 PM EST) ABO Group O 10/27/2024 8:[address] [facility] Rh Type Positive 10/27/2024 8:[address] [facility] Antibody Screen Negative 10/27/2024 8:[address] [facility] Blood Venous blood specimen / Unknown Venipuncture / Unknown 10/27/2024 7:01 PM EST 10/27/2024 7:20 PM EST Mago CHACON LAB BLOOD BANK TEST ORDERA BLES Final Result Performing Organization Address City/[facility]/ZIP Co de Phone Number [facility] [address] [place] [address], [place] [phone] * (ABNORMAL) Heparin and low molecular weight anti Xa level (10/27/2024 6:29 AM EST) Only the most recent of4 resultswithin the time period is included. [facility] Heparin Anti-Xa 0.84(H) 0.30 - 0.70 I Unit/mL LAB COAGULATION METHOD 10/27/2024 7:[address] [facility] Blood Venous blood specimen / Unknown Venipuncture / Unknown 10/27/2024 6:29 AM EST 10/27/2024 6:[address] [facility] - 10/27/2024 7:21 AM EST Therapeutic range listed is for Unfractionated Heparin. LMW Heparin therapeutic range: 0.50-1.20 IU/mL Cezar Chan MD LAB BLOOD ORDERABLES Final Result [facility] [address] [place] [address], [place] [phone] * SST tube (10/27/2024 6:28 AM EST) [facility] Extra Tube Hold for add-ons. 10/27/2024 8:[address] [facility] Comment:Auto resulted. Blood Venous blood specimen / Unknown Venipuncture / Unknown 10/27/2024 6:28 AM EST 10/27/2024 6:55 AM EST us Francisco Calixto MD LAB BLOOD ORDERABLE S Final Result [facility] [address] [place] [address], [place] [phone] * Lavender tube (10/27/2024 6:28 AM EST) [facility] Extra Tube Hold for add-ons. 10/27/2024 8:[address] [facility] Comment:Auto resulted. Blood Venous blood specimen / Unknown Venipuncture / Unknown 10/27/2024 6:28 AM EST 10/27/2024 6:55 AM EST us Francisco Calixto MD LAB BLOOD ORDERABLE S Final Result [facility] [address] [place] [address], [place] [phone] * (ABNORMAL) Respiratory virus panel molecular study (10/27/2024 12:28 AM EST) [facility] Adenovirus Detection by PCR Not Detected Not Detected LAB MICROBIOLOGY METHOD 10/27/2024 1:[address] [facility] Influenza A PCR Not Detected Not Detected LAB MICROBIOLOGY METHOD 10/27/2024 1:[address] [facility] Influenza B PCR Not Detected Not Detected LAB MICROBIOLOGY METHOD 10/27/2024 1:[address] [facility] Coronavirus 229E Not Detected Not Detected LAB MICROBIOLOGY METHOD 10/27/2024 1:[address] [facility] Coronavirus HKU1 Not Detected Not Detected LAB MICROBIOLOGY METHOD 10/27/2024 1:34 AM [facility] Coronavirus OC43 Not Detected Not Detected LAB MICROBIOLOGY METHOD 10/27/2024 1:34 AM [facility] Coronavirus NL63 Not Detected Not Detected LAB MICROBIOLOGY METHOD 10/27/2024 1:34 AM [facility] Parainfluenza Virus 1 Not Detected Not Detected LAB MICROBIOLOGY METHOD 10/27/2024 1:34 AM [facility] Parainfluenza Virus 2 Not Detected Not Detected LAB MICROBIOLOGY METHOD 10/27/2024 1:34 AM [facility] Parainfluenza Virus 3 Not Detected Not Detected LAB MICROBIOLOGY METHOD 10/27/2024 1:34 AM [facility] Parainfluenza Virus 4 Not Detected Not Detected LAB MICROBIOLOGY METHOD 10/27/2024 1:34 AM [facility] RSV PCR Not Detected Not Detected LAB MICROBIOLOGY METHOD 10/27/2024 1:34 AM [facility] Human Metapneumovirus A and B Detected(A ) Not Detected LAB MICROBIOLOGY METHOD 10/27/2024 1:34 AM [facility] Rhinovirus/Entero virus Not Detected Not Detected LAB MICROBIOLOGY METHOD 10/27/2024 1:34 AM [facility] Bordetella pertussis Not Detected Not Detected LAB MICROBIOLOGY METHOD 10/27/2024 1:34 AM [facility] Bordetella parapertussis Not Detected Not Detected LAB MICROBIOLOGY METHOD 10/27/2024 1:34 AM [facility] Mycoplasma pneumo by PCR Not Detected Not Detected LAB MICROBIOLOGY METHOD 10/27/2024 1:34 AM [facility] Chlamydia pneumoniae Not Detected Not Detected LAB MICROBIOLOGY METHOD 10/27/2024 1:34 AM [facility] SARS COV-2 Not Detected Not Detected LAB MICROBIOLOGY METHOD 10/27/2024 1:[address] [facility] Swab Structure of right anterior naris / Unknown Non-blood Collection / Unknown 10/27/2024 12:28 AM EST 10/27/2024 12:[address] [facility] - 10/27/2024 1:34 AM EST Testing was performed using the [employer] Respiratory Pathogen PCR Assay. All results must [...] OR DERABLES Final Result Performing Organization Address [facility]/ZIP Co de Phone Number [facility] [address] [place] [address], * (ABNORMAL) APTT (10/26/2024 5:50 PM EST) aPTT 52.5(H) 24.1 - 39.3 sec LAB COAGULATION METHOD 10/26/2024 6:[address] [facility] Blood Venous blood specimen / Unknown Venipuncture / Unknown 10/26/2024 5:50 PM EST 10/26/2024 6:03 PM EST us Maximus Goins MD LAB BLOOD ORDERABLES Final Resu lt Performing Organization Address City/[facility]/ZIP Co de Phone Number [facility] [address] [place] [address], [place] [phone] * Vascular US duplex lower extremity venous [...] Signed Date: 10/26/2024 17:00 ET Workstation ID: [id number] Transcribed By: Self Edit Transcribed Date: 10/26/2024 [...] Signed Date: 10/26/2024 17:00 ET Workstation ID: [id number] Transcribed By: Self Edit Transcribed Date: 10/26/2024 16:59 ET Andie CHACON CV VASCULAR PROCEDURES Final R esult * Hemoglobin A1c (03/22/2024) Pathologist [facility] Hemoglobin A1C 6.4 <=6.5 % Blood Venous blood specimen / Unknown Historical Provider LAB BLOOD ORDERABLES Rosa Isela l Result * Urine Albumin Creatinine Ratio (09/08/2023) Pathologist Count includes the [facility] Urine Albumin Creatinine Ratio Abstracted us Historical Provider HEALTH MAINTENANCE Final Result * (ABNORMAL) Lipid panel (09/08/2023) LDL/HDL Ratio 4 0 - 4 Triglycerides 249(A) 0 - 150 mg/dL Cholesterol 130 0 - 200 mg/dL HDL 34(A) >=40 mg/dL LDL Cholesterol 47 0 - 100 mg/dL Blood Venous blood specimen / Unknown Historical Provider LAB BLOOD ORDERABLES Rosa Isela l Result * Diabetes Foot Exam (09/07/2023) Diabetes: Annual Foot Exam Abstracted Historical Provider HEALTH MAINTENANCE Final Result from Last 3 Months or Most Recently Relevant to Health Maintenance Additional Health Concerns Infection Onset Date Last Indicated Human Metapneumovirus 10/27/2024 10/27/2024 Insurance MEDICARE [facility] Advance Directives Documents on File Type Date Recorded Patient Complex Care Nurse Expl anation Health Care Decision (hx) 07/03/2024 [...] currently active code status orders. Care Teams Extension Agent Relationship Specialty Start Date End Date Marni Ferguson MD [address] [place] [phone] PCP - General Internal Medicine 10/26/24
--- OUTSIDE RECORDS SUMMARY | 2024-12-20 14:48 | XMS_ITS | Encounter Summary ---
Author Organization [facility] Address [address] [place] [address] Care Team Providers Care Subway Operator Name Role Phone Marni Ferguson MD Primary Care Provider [phone] Reason for Visit * Imaging (Routine) - Closed Specialty Diagnoses / Procedures Referred By Dinah avery Referred To Contact Diagnoses Infrarenal abdominal aortic aneurysm (AAA) without rupture (CMS/HCC) Occlusion of arterial bypass graft, subsequent encounter Bilateral leg pain Procedures Vascular US duplex lower extremity arteries bilateral with FATMATA Ahmet Banks MD [address] [place] [address] Phone: tel: fax: [facility] Referral ID Status Reason Start Date Expiration Date Visits Re quested Visits Authorized [id number] Closed 11/03/2024 11/03/2025 1 1 Encounter Details Date Type Department Care Team (Latest Contact Info) Description 11/24/2024 10:30 AM EST Ancillary Procedure [facility] - [address] [place] [address] Infrarenal abdominal aortic aneurysm (AAA) without rupture [...] AM EDT Office Visit Vascular Surgery - [place] [address] [place] [address] Ahmet Banks MD [address] [place] [address] 05/16/2025 10:30 AM EDT Ancillary Procedure [facility] - [address] [place] [id number] documented as of this encounter Procedures Procedure [...] PSV 28 cm/s CV VAS LAB Left FITNESS CLUB MANAGER prox sys PSV 60 cm/s CV VAS [...] PSV 19 cm/s CV VAS LAB Right FITNESS CLUB MANAGER prox sys PSV 74 cm/s CV VAS [...] The mid peroneal artery has triphasic flow. Station Engineer Main Line Details A mitchell scale, color and doppler [...] documented as of this encounter Care Teams Subway Operator Relationship Specialty Start Date End Date Marni Ferguson MD [address] [place] [phone] PCP - General Internal Medicine 10/26/24 documented as of this encounter
--- OUTSIDE RECORDS SUMMARY | 2024-12-20 14:48 | XMS_ITS | Encounter Summary ---
Author Organization [facility] Address [address] [place] [address] Care Team Providers Care Brick Paving Checker Name Role Phone Marni Ferguson MD Primary Care Provider [phone] Reason for Visit * Imaging (Routine) - Closed Specialty Diagnoses / Procedures Referred By Dinah avery Referred To Contact Diagnoses Acute deep vein thrombosis (DVT) of femoral vein of right lower extremity (CMS/HCC) Leg edema Bilateral leg pain Procedures Vascular US duplex lower extremity venous bilateral Ahmet Banks MD [address] [place] [address] Phone: tel: fax: [facility] Referral ID Status Reason Start Date Expiration Date Visits Re quested Visits Authorized [id number] Closed 11/03/2024 11/03/2025 1 1 Encounter Details Date Type Department Care Team (Latest Contact Info) Description 11/29/2024 10:30 AM EST Ancillary Procedure [facility] - [address] [place] [address] Acute deep vein thrombosis (DVT) of femoral [...] AM EDT Office Visit Vascular Surgery - [place] [address] [place] [address] Ahmet Banks MD [address] [place] [address] 05/16/2025 10:30 AM EDT Ancillary Procedure [facility] - [address] [place] [address] documented as of this encounter Procedures Procedure [...] trendelenburg. Left saphenopopliteal junction was not identified. Rn Float Details A mitchell scale, color and doppler [...] documented as of this encounter Care Teams Brick Paving Checker Relationship Specialty Start Date End Date Marni Ferguson MD [address] [place] [phone] PCP - General Internal Medicine 10/26/24 documented as of this encounter
--- OUTSIDE RECORDS SUMMARY | 2024-12-20 14:48 | XMS_ITS ---
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 Omalley underwent bilateral radiofrequency ablation on 10/08/2022 at [facility] with some improvement lasting 1 month. He [...] hyperplasia) 08/09/2020 Coronary artery disease invo lving [place] heart without angina pectoris 08/09/2020 Overview (08/29/2024): [...] treatments are documented for this patient in [facility]. Treatments may have been administered in another system. Lifetime Dose Tracking * Chemical Lifetime Dose Automatic Entry Manual Entr y Radiation 3,183.74 mGy 0 mGy 3,183.74 mGy Fluoro Time 1.2 minutes 0 minutes 1.2 minutes Resolved Problems Problem Noted Date Diagnosed Date Resolved Date Epistaxis 10/28/2024 10/28/2024
--- OUTSIDE RECORDS SUMMARY | 2024-12-20 14:48 | XMS_ITS ---
Author Organization [address] [place] [address] [place] [phone] Phone Care Team Providers Care Human Resource Manager Name Role Phone Marni Ferguson MD Primary Care Provider [phone] Transitional Care Management Status:Closed (Closed) Start date:10/28/2024 Enrollment date:10/28/2024 Enrollment reason:Identified using hospital discharge data End date:11/28/2024 Close reason:Completed program Continued Care and Services Coordination
== END 2024-12-20 14:07 | disposition home or self-care (01) ==
PROVIDERS: Visit Provider Nurse Practitioner Family
DX: M10.9 Gout, unspecified (principal)

== ENCOUNTER → 2024-12-20 12:22 | Outpatient (BNVA) | payer MEDICARE, OTHER, SELFPAY | PROVIDERS: Visit Provider Nurse Practitioner Family | DX: M10.9 Gout, unspecified (principal) | CPT/HCPCS: 99212 ==

== ENCOUNTER 2024-12-26 14:45 | Outpatient (AMB) | payer MEDICARE, OTHER, SELFPAY ==
--- NOTE | 2024-12-26 15:35 | AM.OFFWIN_ITS ---
Intake Vital Signs 12/26/24 15:36 Height 5 ft 9 in Weight 193 lb BMI 28.5 BP 130/78 Blood Pressure Location Lt brachial Position Sitting Pulse 76 Pulse Source Pulse Oximeter Temp 97.2 F Temp Source Oral Pulse Oximetry (%) 96 Oxygen Delivery Method Room Air Intake Visit Reasons: EP-gout Patient Tobacco Use Status: Former Tobacco user Allergies Iodinated Contrast Media [IV Dye, Iodine Containing] Allergy (Severe, Verified 12/26/24 15:36) SWELLING sulfamethoxazole [From Bactrim] Allergy (Severe, Verified 12/26/24 15:36) SWELLING RASH tetracycline [Tetracycline] Allergy (Severe, Verified 12/26/24 15:36) SWELLING , RASH trimethoprim [From Bactrim] Allergy (Severe, Verified 12/26/24 15:36) SWELLING RASH Sulfa (Sulfonamide Antibiotics) Allergy (Unknown, Verified 12/26/24 15:36) hives IVP dye Allergy (Unknown, Uncoded 12/20/24 13:24) Anaphylaxis Renée Dry Allergy (Unknown, Uncoded 12/20/24 13:24) rash tetracycline Allergy (Unknown, Uncoded 12/20/24 13:24) hives Do you need a note to return to daycare/school/sports/work: No HPI HPI Comments History of Present Illness Details This is an 84-year-old male with a past medical history of peripheral vascular disease, hyperlipidemia, hypertension, coronary artery disease and insulin-dependent diabetes presenting for evaluation of gout. Patient was diagnosed with gout on December 20 and treated with a prednisone taper and colchicine. Patient continues to have pain and redness in his right foot, plantar surface worse than the dorsal surface. Patient denies having any fevers or chills but states his blood glucose has been as high as 250 mg/dL likely secondary to the prednisone use. Patient states the pain has worsened instead of improved. [facility] Medical History Surgery, elective Obesity due to excess calories Hx of aneurysm Hx of myocardial infarction Carpal tunnel syndrome Throat cancer Ischemic colitis Pacemaker Diverticulitis BPH (benign prostatic hyperplasia) Type 2 diabetes mellitus with chronic kidney disease Chronic kidney disease, stage 3 Type 2 diabetes mellitus with diabetic polyneuropathy Essential hypertension Hyperlipidemia LDL goal <70 Surgical History History of back surgery H/O neck surgery History of prostate surgery Hx of angioplasty Hx of hernia repair Hx of tonsillectomy Family History Father Prostate cancer Mother Breast cancer Diabetes Social History Household Members: Spouse Patient Tobacco Use Status: Former Tobacco user Tobacco use type: Cigarette Cigarettes Per Day: 10 Years Smoked: 40 Review of Systems Const All systems reviewed & are unremarkable except as noted in HPI and below Denies chills, Denies fatigue, Denies fever(s) and Denies lethargy Eyes Reports no additional complaints ENT Reports no additional complaints Card Reports no additional complaints Resp Reports no additional complaints GI Reports no additional complaints Musc Details: right foot pain Reports no additional complaints Skin/Breast Details: redness top of right foot Neuro Reports no additional complaints Psych Reports no additional complaints Endo Reports no additional complaints and Denies fatigue Aller/Immun Reports no additional complaints Physical Exam Vital Signs: Last Vital Signs Temp 97.2 F 12/26/24 15:36 Pulse 76 12/26/24 15:36 BP 130/78 12/26/24 15:36 Pulse Ox 96 12/26/24 15:36 Oxygen Delivery Method Room Air 12/26/24 15:36 BMI result Body Mass Index 28.5 Patient is afebrile. Const General: cooperative, comfortable, well developed, alert and awake Nutritional Appearance: average body habitus Orientation/consciousness: patient oriented x3 Limitations: ambulation with cane Skin Other: There is erythema extending on the dorsal surface of the right foot as well as the plantar surface of the right foot; there is a tender laceration at the base of the right 4th toe, plantar surface with mild purulent exudates. Neuro General: patient oriented x3 Extrem Right lower extremity: foot (Pain to palpation of the 1st MTP and 4th toe) Details: normal capillary refill and laceration (plantar surface right 4th toe, base of proximal phalanx) Psych Appearance: grossly normal Mental Status: mental status grossly normal Insight: Good insight present (Psych) Judgement: Good judgement present (Psych) Assessment & Plan Assessment & Plan (1) Cellulitis of right foot: Comment: Patient's history coupled with his examination is consistent with a remote history of gout as well as a new cellulitis of the right foot, origins are likely the laceration at the base of the right 4th toe. As it is not possible to know the element of gout present, patient will be discharged home with indomethacin as well as Keflex. Patient will see his testboard operator on Wednesday and director of digital technology on . Patient is encouraged to follow up at the walk-in at any time, specifically for any erythema extending up his right leg, fevers or uncontrolled blood glucose. Code(s): L03.115 - Cellulitis of right lower limb Plan: Indomethacin *always with food* three times daily as needed, alternate with Tylenol as needed for pain, Keflex 500mg QID x 7 days and keep clean with soap and water daily. Patient to see his director of digital technology, Dr. Cooper on for routine care and will follow-up regarding his cellulitis at that time. Medications: New indomethacin administer with food or milk 50 mg PO TID 10 caps 0RF cephalexin 500 mg PO Q6H 28 caps 0RF Coding Level of Care Code Est Pt Level 4 (69366) Diagnoses Cellulitis of right foot L03.115 Time Spent (min) 25
[2024-12-26 15:36] VITALS: BP 130/78; PULSE 76; TEMP 36.2; O2SAT 96; BMI 28.5
--- OUTSIDE RECORDS SUMMARY | 2024-12-26 18:29 | XMS_ITS | Encounter Summary ---
Author Organization [facility] Address [address] [place] [address] Care Team Providers Care Airline Pilot Flight Instructor Name Role Phone Marni Ferguson MD Primary Care Provider [phone] Reason for Visit * Imaging (Routine) - Closed Specialty Diagnoses / Procedures Referred By Dinah avery Referred To Contact Diagnoses Acute deep vein thrombosis (DVT) of femoral vein of right lower extremity Leg edema Bilateral leg pain Procedures Vascular US duplex lower extremity venous bilateral Ahmet Banks MD [address] [place] [address] Phone: tel: fax: [facility] Referral ID Status Reason Start Date Expiration Date Visits Re quested Visits Authorized [id number] Closed 11/03/2024 11/03/2025 1 1 Encounter Details Date Type Department Care Team (Latest Contact Info) Description 11/29/2024 10:30 AM EST Ancillary Procedure [facility] - [address] [place] [address] Acute deep vein thrombosis (DVT) of femoral [...] Care Team (Late st Contact Info) Description 05/16/2025 10:30 AM EDT Ancillary Procedure [facility] - [address] [place] [address] 06/25/2025 11:00 AM EDT Office Visit Vascular Surgery - [place] [address] [place] [address] Ahmet Banks MD [address] [place] [address] documented as of this encounter Procedures Procedure [...] trendelenburg. Left saphenopopliteal junction was not identified. Ios Architect Details A mitchell scale, color and doppler [...] of femoral vein of right lower extremity Leg edema Edema Bilateral leg pain Pain in soft tissues of limb Encounter for adjustment or management of cardiac device documented in this encounter Additional Health Concerns Infection Onset Date Last Indicated Resolved Time Human Metapneumovirus 10/27/2024 10/27/2024 documented as of this encounter Care Teams Airline Pilot Flight Instructor Relationship Specialty Start Date End Date Marni Ferguson MD [address] [place] [phone] PCP - General Internal Medicine 10/26/24 documented as of this encounter
--- OUTSIDE RECORDS SUMMARY | 2024-12-26 18:29 | XMS_ITS | Clinical Summary ---
Author Organization [facility] Address [address] [place] [address] Phone Care Team Providers Care Ballistics Professor Name Role Phone Mercy Grewal Primary Care Provider [phone] Allergies Active Allergy Reactions Criticality Noted Date [...] 10/09/2024 Refill [facility] [address] [facility] [address] [place] [address] Rosita Hines MA from Last [...] Insurance UNICARE MEDICARE UNICARE MEDICARE Care Teams Ballistics Professor Relationship Specialty Start Date End Date Mercy Grewal [address] [place] [address] PCP - General 03/03/23
--- OUTSIDE RECORDS SUMMARY | 2024-12-26 18:29 | XMS_ITS ---
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 Omalley underwent bilateral radiofrequency ablation on 10/08/2022 at [facility] with some improvement lasting 1 month. [...] hyperplasia) 08/09/2020 Coronary artery disease invo lving [place] heart without angina pectoris 08/09/2020 Overview (08/29/2024): [...] treatments are documented for this patient in [facility]. Treatments may have been administered in another system. Lifetime Dose Tracking * Chemical Lifetime Dose Automatic Entry Manual Entr y Radiation 3,183.74 mGy 0 mGy 3,183.74 mGy Fluoro Time 1.2 minutes 0 minutes 1.2 minutes Resolved Problems Problem Noted Date Diagnosed Date Resolved Date Epistaxis 10/28/2024 10/28/2024
--- OUTSIDE RECORDS SUMMARY | 2024-12-26 18:29 | XMS_ITS | Data Portability ---
Author Organization [place] - [facility] Address [address] [address] Care Team Providers Care Copy Messenger Name Role Phone CHRISTIE CAR Referring Provider [...] Go To The Location Of Their Choice, [address] 06/02/2024 21:10:25 Referral None recorded. Procedures None [...] high normal Not Available [facility] ([facility]) [address] [place], [address], 06/02/2024 21:10:25 05/31/2006/02/2024 TSH W/REF LOLIS triiodothyro nine (T3), free 2.6 pg/mL 2.0-4. 4 Not Available [facility] ([facility]) [address] [place], [address], 06/02/2024 21:10:25 05/31/2006/02/2024 TSH W/REF LOLIS T4,free (direct) 1.07 NG/dL 0.82-1 .77 normal Not Available [facility] (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; Note: Date Diagnosed : 03/04/2020 2:33 PM (C32.0) Not Available [facility] 4 02:46:28 Dysphonia 83588740 Active 2019 Hoarsenes s; Note: Date Diagnosed : 11/15/2019 1:00 PM (R49.0) Not Available [facility] 4 02:46:18 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 425413178 Active 2022 Malignant neoplasm of aryepiglo ttic fold NOS; Note: Changed from D38.0 to C13.1 ( 3 12:15 PM) , Date Diagnosed : 02/08/2023 11:22 AM (D38.0) Not Available [facility] 4 02:46:18 History of malignant neoplasm of larynx 067758432 Active 2020 Personal history of malignant neoplasm of larynx; Note: Date Diagnosed : 12/12/2020 12:47 PM (Z85.21) Not Available [facility] 4 02:46:18 Pharyngea l dysphagia 75911295037 105 Active 2021 Dysphagia , pharyngea l phase; Note: Date Diagnosed : 03/20/2022 11:46 AM (R13.13) Not Available [facility] 4 02:46:23 Follow-up visit Active 2019 Encounter for follow-up examinati on after completed treatment for malignant neoplasm; Note: Date Diagnosed : 04/24/2020 8:56 AM (Z08) Not Available [facility] 4 02:46:22 Lymphedem a 497532079 Active 2019 Lymphedem a, not elsewhere classifie d; Note: Date Diagnosed : 04/24/2020 9:00 AM (I89.0) Not Available [facility] 4 02:46:21 Chronic cough 21052363 Active 2021 Chronic cough; Note: Changed from R05 to R05.3 ( 2 11:46 AM) , Date Diagnosed : 03/20/2022 11:46 AM (R05) Not Available [facility] 4 02:46:19 Long-term current use of antiplate let drug 77156201726 4101 Active 2017 [facility] (current) use of antithrom botics/an tiplatele ts; Note: Date Diagnosed : 04/23/2017 12:51 PM (Z79.02) Not Available [facility] 4 02:46:28 Vasomotor rhinitis 7143947 Active 2020 Vasomotor rhinitis; Note: Date Diagnosed : 01/22/2021 11:42 AM (J30.0) Not Available [facility] 4 02:46:22 Neoplasm of uncertain behavior of larynx 60918898 Active 2019 Neoplasm of uncertain behavior of larynx; Note: Date Diagnosed : 12/19/2019 10:13 AM (D38.0) Not Available [facility] 4 02:46:26 Disorder of vocal cord 04513310 Active 2019 Other diseases of vocal cords; Note: Date Diagnosed : 11/15/2019 1:00 PM (J38.3) Not Available [facility] 4 02:46:20 Finding of resonance of voice 748513059 Active 2021 Other voice and resonance disorders ; Note: Date Diagnosed : 03/18/2022 5:46 PM (R49.8) Not Available [facility] 4 02:46:17 Bleeding from nose 080866145 Active 2017 Epistaxis ; Note: Date Diagnosed : 04/23/2017 12:51 PM (R04.0) Not Available Critical access hospital 4 02:46:21 Edema of larynx following radiother apy 231776937 Active 2023 MELVIN QUINN MD 100 [facility] [address], [place], [address] , [facility] 4 10:25:49 Abnormal auditory perceptio n 88526963 Active 2023 MELVIN QUINN MD 100 [facility],[address], [place], [address] , [place] [facility] 4 10:26:03 Bilateral tinnitus 10818476119 02 Active 2023 MELVIN QUINN MD [address], [place], [address] , [facility] - [facility] 4 10:26:07 Oropharyn geal dysphagia 12877452 Active 2023 MELVIN QUINN MD [address], [place], [address] , [facility] - [facility] 4 10:26:16 Sensorine ural hearing loss of bilateral ears 359403621 Active 2023 COLIN JIMENEZ [place], [facility] 100 [facility], [address] [facility], [place], [address] , [facility] 4 11:01:59 Problem Notes None recorded. Procedures Surgical History Date Name Laterality Status Provider Name and Address Organization Details Recorded Time 09/21/20 24 Fiberoptic Laryngoscopy (Comprehensive) completed MELVIN AKERS MD [address] [facility], [place], [address], [facility] - [facility] 09/21/2024 11:34:17 05/31/20 24 Fiberoptic Laryngoscopy (Comprehensive) completed MELVIN AKERS MD [address] [facility], [place], [address], [facility] - [facility] 05/30/2024 10:05:32 02/16/20 24 Comp Audio with Tymps (51039 & 91643) completed COLIN JIMENEZ MA, CCC-A 100 [facility], [address], [place], [address], [facility] - [facility] 02/16/2024 11:01:33 02/16/20 24 Fiberoptic Laryngoscopy (Comprehensive) completed MELVIN AKERS MD [address], [place], [address], [facility] - [facility] 02/16/2024 10:25:42 02/24/20 23 Laryngoscopy with biopsy completed MELVIN AKERS MD [address], [place], [address], [place] [facility] [place] 02/14/2024 18:47:38 12/19/19 Laryngoscopy for treatment completed MELVIN AKERS MD [address], [place], [address], [place] [facility] [place] 02/14/2024 18:47:06 insertion of stent into aorta completed MELVIN AKERS MD 100 [facility], [address] [place],[address], [place], [address], [place] [facility] 09/21/2024 11:35:38 peripheral arterial bypass completed MELVIN AKERS MD 100 [facility], [address] [place],[address], [place], [address], [place] [facility] 09/21/2024 11:35:45 Imaging Results Imaging Date Name Status [facility] Details LastModified Time 11/17/2019 imaging/diag nostic result [...] Name and Address Organization Details Recorded Time 92851 Bactrim medicatio n other Not available Not available 02/15/2024 91749 9 RxNorm React ion: unkno wn, unspe cifie d;; Not Available [facility] 4 01:04:16 58941 Medicinal product containin g tetracycl ine structure and acting as antibacte rial agent (product) medicatio n other Not available Not available 02/15/2024 36209 1004 SNOMED React ion: unkno wn, unspe cifie d;; Not Available [facility] 4 01:04:19 Medications Name Sig Start Date Stop Date Status Note LastModified by Organization Details LastModified Time metformin 500 mg tablet 04/23 completed Medicati on ID: [id number] D uration Value: 90 Brand Name: metformi n Send Method: E-Prescr ibed Sub s Allowed: subs OK Medic ationGen ericName : metformi n Not Available Not Available Not Available atorvasta tin 80 mg tablet TAKE 1 TABLET BY MOUTH DAILY active Not Available Not Available No t Available gabapenti n 600 mg tablet 12/18 completed Medicati on ID: [id number] B rand Name: gabapent in Send Method: [...] 24 hr 04/23 completed Medicati on ID: [id number] D uration Value: 30 Brand Name: oxybutyn in chloride Send Method: E-Prescr ibed Sub s Allowed: subs OK Medic ationGen ericName : oxybutyn in chloride Not Available Not Available Not Available atenolol 100 mg tablet 2020 active Medicati on ID: [id number] B rand Name: atenolol Send Method: E-Prescr ibed Sub s Allowed: subs OK Medic ationGen ericName : atenolol Not Available Not Available Not Available glipizide ER 10 mg tablet, extended release 24 hr 04/23 completed Medicati on ID: [id number] D uration Value: 90 Brand Name: glipizid [...] mg capsule 12/18 completed Medicati on ID: [id number] B rand Name: gabapent in Send Method: E-Prescr ibed Sub s Allowed: subs OK Medic ationGen ericName : gabapent in Not Available Not Available Not Available Zyrtec 10 mg tablet Take 1 tablet by mouth as directed 2021 active Medicati on ID: [id number] D uration Value: 1 Brand Name: Zyrtec S end Method: E-Prescr ibed Sub s Allowed: subs OK Speci al Instruct ion: take one tablet by mouth [address] Scan Med icationG enEvelio me: Zyrtec Not Available Not Available Not Available clopidogr el 75 mg tablet 12/17 completed Medicati on ID: [id number] D uration Value: 90 Brand Name: clopidog rel Send Method: E-Prescr ibed Sub s Allowed: subs OK Medic ationGen ericName : clopidog rel Not Available Not Available Not Available amlodipin e 5 mg tablet 04/23 completed Medicati on ID: 293243 D uration Value: 90 Brand Name: amlodipi ne Send Method: E-Prescr ibed Sub s Allowed: subs OK Medic ationGen ericName : amlodipi ne Not Available Not Available Not Available tramadol 50 mg tablet 04/23 completed Medicati on ID: 616681 D uration Value: 90 Brand Name: tramadol Send Method: E-Prescr ibed Sub s Allowed: subs OK Medic ationGen ericName : tramadol Not Available Not Available Not Available lorazepam 0.5 mg tablet TAKE 1 TABLET BY MOUTH TWICE DAILY active Not Available Not Available No t Available prednison e 1 mg tablet 12/18 completed Medicati on ID: [id number] B rand Name: predniso ne Send Method: [...] mg tablet 04/23 completed Medicati on ID: [id number] D uration Value: 90 Brand Name: allopomid nol Send Method: E-Prescr ibed Sub s Allowed: subs OK Medic ationGen ericName : allopuri nol Not Available Not Available Not Available furosemid e 20 mg tablet TAKE 1 TABLET BY MOUTH DAILY active Not Available Not Available No t Available ipratropi um bromide 42 mcg (0.06 %) nasal spray 12/18 completed Medicati on ID: [id number] B rand Name: ipratrop ium bromide Send [...] by mouth 2019 active Medicati on ID: [id number] D uration Value: 1 Prescri bed By Name: RODERICK Chacon nd Name: Benadryl Allergy Send Method: E-Prescr ibed Sub s Allowed: subs OK Speci al Instruct ion: take 2 tablets [address] scan Med icationG enericNa me: Benadryl Allergy Not Available Not Available Not Available olmesarta n 5 mg tablet 12/18 completed Medicati on ID: [id number] B rand Name: olmesart an Send Method: E-Prescr ibed Sub s Allowed: subs OK Medic ationGen ericName : olmesart an Not Available Not Available Not Available olmesarta n 20 mg tablet 2020 active Medicati on ID: [id number] B rand Name: olmesart an Send Method: E-Prescr ibed Sub s Allowed: subs OK Medic ationGen ericName : olmesart an Not Available Not Available Not Available escitalop angie 10 mg tablet 04/23 completed Medicati on ID: [id number] D uration Value: 90 Brand Name: escitalo pram oxalate Send Method: E-Prescr ibed Sub s Allowed: subs OK Medic ationGen ericName : escitalo pram oxalate Not Available Not Available Not Available Novolog FlexPen U-100 Insulin aspart 100 unit/mL (3 mL) subcutane ous 2020 active Medicati on ID: [id number] B rand Name: Novolog Flexpen U-100 Insulin Send Method: E-Prescr ibed Sub s Allowed: subs OK Medic ationGen ericName : Novolog Flexpen U-100 Insulin Not Available Not Available Not Available pregabali n 150 mg capsule 2020 active Medicati on ID: [id number] B rand Name: pregabal in Send Method: E-Prescr ibed Sub s Allowed: subs OK Medic ationGen ericName : pregabal in Not Available Not Available Not Available Lyrica 75 mg capsule 04/23 completed Medicati on ID: [id number] D uration Value: 90 Brand Name: Lyrica [...] ous pen injector active Medicati on ID: [id number] B rand Name: Anuradhait y Send Method: [...] x 1/4 12/18 completed Medicati on ID: [id number] B rand Name: BD Ultra-Fi ne Micro Pen Needle S end Method: E-Prescr ibed Sub s Allowed: subs OK Medic ationGen ericName : BD Ultra-Fi ne Micro Pen Needle Not Available Not Available Not Available Ozempic 0.25 mg or 0.5 mg (2 mg/1.5 mL) subcutane ous pen injector 2020 active Medicati on ID: [id number] B rand Name: Ozempic Send Method: E-Prescr [...] Updated DateTime 05/31/2024 172.72 cm 30.6 kg/m2 58022.07 g Malik Joiner [place] [facility] 05/31/2024 09:57:53 Date Recorded Body weight Body mass index (BMI) Body height Provider Name and Address Organization Details Last Updated DateTime 02/16/2024 62911.29 g 30.1 kg/m2 172.72 cm Malik Joiner [place] - [facility] 02/16/2024 10:11:40 Date Recorded Body height Body mass index (BMI) Body weight Provider Name and Address Organization Details Last Updated DateTime 09/21/2024 172.72 cm 30.4 kg/m2 99825.47 g Malik Joiner [place] [facility] 09/21/2024 11:15:52 Social History Question Answer Notes LastModified by Organizat ion Details LastModified Time Tobacco Smoking Status Never Smoker Malik craig [place] - [facility] 02/16/2024 10:08:12 What Is Your Level Of Alcohol Consumption? None [email or web address] Information not available 02/16/2024 Do You Use Any Illicit Or Recreational Drugs? No [email or web address] Information not available 02/16/2024 Do You Or Have You Ever Used Any Other Forms Of Tobacco Or Nicotine? No [email or web address] Information not available 02/16/2024 Sex: Unknown Functional Status None recorded. Mental Status None recorded. Family History Nothing Reported. Medical History Condition Response Diabetes Y Hyperlipidemia Y Hypertension Y High Cholesterol Y Past Encounters Encounter ID Performer Location Encounter Start Date Encounter Closed Date Diagnosis/Indication Diagnosis SNOMED-CT Code Diagnosis ICD10 Code Diagnosis Note [id number] MELVIN QUINN MD [facility] [address] [address] 02/16/2024 10:01:00 02/16/2024 11:03:28 Abnormal auditory perception 62297409 H93.299 Bilateral tinnitus 57378 36342 102 H93.13 Oropharyng eal dysphagia 89790012 R13.12 Sensorineu ral hearing loss of bilateral ears 083471540 H90.3 Normal hearing thru 1000Hz sloping to a mild to to severe sensorineu ral hearing loss with excellent speech discrimina tion ability for both ears.Type A tympanogra ms. Declines amplificat ion History of malignant neoplasm of larynx 865781884 Z85.21 Chronic hoarseness 85529 10383 105 R49.0 Edema of l arynx following radiotherapy 292703150 J38.4 [id number] COLIN JIMENEZ MA, CCC-A [facility] [address] [address] 02/16/2024 10:57:00 02/17/2024 22:38:16 Sensorineural hearing loss of bilateral ears 725712833 H90.3 Normal hearing thru 1000Hz sloping to a mild to to severe sensorineu ral hearing loss with excellent speech discrimina tion ability for both ears.Type A tympanogra ms. Bilateral tinnitus 15349 04861 102 H93.13 [id number] MELVIN QUINN MD [facility] [address] [address] 05/31/2024 09:51:42 05/31/2024 10:31:47 History of malignant neoplasm of larynx 529348588 Z85.21 Chronic hoarseness 69866 57522 105 R49.0 Edema of l arynx following radiotherapy 436242153 J38.4 Bilateral tinnitus 22253 12062 102 H93.13 Oropharyng eal dysphagia 27705083 R13.12 Sensorineu ral hearing loss of bilateral ears 884502659 H90.3 [id number] MELVIN QUINN MD [facility] [address] [address] 09/21/2024 10:58:20 09/21/2024 11:41:36 History of malignant neoplasm of larynx 713392887 Z85.21 Chronic hoarseness 77760 96499 105 R49.0 Edema of l arynx following radiotherapy 904115831 J38.4 Bilateral tinnitus 91552 07630 102 H93.13 Oropharyng eal dysphagia 89195134 R13.12 Sensorineu ral hearing loss of bilateral ears 526934786 H90.3 Health Concerns Section Related Observation LastModified by Organization Detai ls LastModified Time None Recorded Concern Status LastModified by Organization Details LastModified Time None Recorded Advance Directives Directive None Recorded Payers Encounter Date Sequence Insurance Name Policy Number Policy Purcell Covered Member ID Purcell Member ID Guarantor Name 02/16/2024 2 [facility] INDEMNITY [facility] - [place] DEE-NI' (INDEMNITY) [id number] Mark Anthony Omalley [id number] Mark Anthony Omalley 02/16/2024 1 MEDICARE B-[place]: [facility] [employer] [facility] Mark Anthony Omalley [id number] Mark Anthony Omalley 02/16/2024 2 [facility] INDEMNITY PLAN - [place] DEE-NI' (INDEMNITY) [id number] Mark Anthony Richards Fugere [id number] Mark Anthony Omalley 02/16/2024 1 MEDICARE B-[place]: [facility] Mark Anthony Cummingsere [id number] Mark Anthony Cummingsere 05/31/2024 2 [facility] INDEMNITY PLAN - [place] DEE-NI' (INDEMNITY) [id number] Mark Anthony Richards Fugere [id number] Mark Anthony Omalley 05/31/2024 1 MEDICARE B-[place]: [facility] Mark Anthony Cummingsere [id number] Mark Anthony Omalley 09/21/2024 2 [facility] INDEMNITY PLAN - [place] DEE-NI' (INDEMNITY) [id number] Mark Anthony Richards Fugere [id number] Mark Anthony Omalley 09/21/2024 1 MEDICARE B-[place]: [facility] Mark Anthony Omalley [id number] Mark Anthony Omalley Notes Date Note [...] use water to swallow MELVIN AKERS MD [address] [place] [address],[address], [address], [facility] 02/16/2024 12:28:07 02/16/2024 text/html tinnitus COLIN JIMENEZ MA, CCC-A 100 [facility],[address], [address], [facility] 02/16/2024 11:07:36 05/31/2024 text/html Hearing Loss [...] possible peripheral bypass tomorrow. MELVIN AKERS MD [address] [place] [address], [address], [facility] 05/31/2024 10:20:02 09/21/2024 text/html Hearing Loss [...] possible peripheral bypass tomorrow. MELVIN AKERS MD [address] [place] [address], [place], [address], [place] [facility] 09/21/2024 13:02:16
--- OUTSIDE RECORDS SUMMARY | 2024-12-26 18:29 | XMS_ITS | Encounter Summary ---
Author Organization [employer] Address [address] [place] [address] Care Team Providers Care Boiler Riveter Name Role Phone Marni Ferguson MD Primary Care Provider [phone] Reason for Referral * Imaging (Routine) - Authorized Specialty Diagnoses / Procedures Referred By Minaac t Referred To Contact Diagnoses Peripheral vascular disease (CMS/HCC) PAD (peripheral artery disease) (CMS/HCC) Procedures Vascular US duplex lower extremity arteries bilateral with FATMATA Ahmet Banks MD [address] [place] [address] [place] [id number] Phone: tel: fax: [facility] Referral ID Status Reason Start Date Expiration Date V isits Requested Visits Authorized [id number] Authorized 12/22/2024 12/22/2025 1 1 Reason for Visit * Reason Comments Peripheral Vascular Disease Chronic Venous Insufficiency Encounter Details Date Type Department Care Team (Late st Contact Info) Description 12/22/2024 11:45 AM EDT Office Visit Vascular Surgery - [place] [address] [place] [address] [phone] Ahmet Banks MD [address] [place] [address] Peripheral vascular disease (CMS/HCC) (Primary Dx); PAD (peripheral artery disease) (CMS/HCC); Acute deep vein thrombosis (DVT) of femoral vein of right lower extremity (CMS/HCC) Social History Tobacco Use Types Packs/Day Years [...] Reading Time Taken Comments Blood Pressure 120/70 12/22/2024 11:49 AM EDT Pulse 72 12/22/2024 11:49 AM EDT Temperature - - Respiratory Rate 16 12/22/2024 11:49 AM EDT Oxygen Saturation - - Inhaled Oxygen Concentration - - Weight 88 kg (194 lb) 12/22/2024 11:49 AM EDT Height 177.8 cm (5' 10 ) 12/22/2024 11:49 AM EDT Body Mass Index 27.84 12/22/2024 11:49 AM EDT documented in this encounter Progress Notes * Guillermo Hendricks MA - 12/22/2024 11:45 AM EDT [facility] Vascular US duplex lower extremity venous bilateral Order# [id number] Reading physician: Wallace Tadeo MD Ordering provider: Ahmet Banks MD Study date: 11/29/24 Patient Information Patient Name Mark Anthony Omalley Legal Sex Male (84 y.o.) Reason for Exam Priority: Routine DVT Hx Dx: Acute deep vein thrombosis (DVT) of femoral vein of right lower extremity (CMS/HCC) [I82.411 (ICD-10-CM)]; Leg edema [R60.0 (ICD-10-CM)]; Bilateral leg pain [M79.604, M79.605 (ICD-10-CM)] PACS Images Show images for Vascular US duplex lower extremity venous bilateral Procedure Voucher Examiner/Clinician: Kathy Yusuf Supporting Staff: Performing Physician/Midlevel: None Interpretation Summary Show Result ComparisonRIGHT: 1. The patient underwent a right lower extremity venous ultrasound on 10/26/2024 which showed a Deepvein thrombosis involving the proximal to mid femoral vein and the peroneal vein. 2. On the current study, there was no evidence of a deep vein thrombosis in the femoral vein. 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 3. The visualized portions of the GSV are competent. Of note, the GSV was not well-visualized at the lower thigh and knee levels likely secondary to a past history of an EVLT of the GSV. 4. The femoral vein is competent. The right popliteal vein has non-significant reflux. Of note, theright SPJ was not well-visualized. 5. The saphenofemoral junction and SSV have clinically significant reflux as described below. LEFT: 1. There is no evidence of a DVT in the left lower extremity. 2. The GSV was not well-visualized at the thigh level likely secondary to a past history of an EVLT. Of note, the left SPJ was not well-visualized on the current study. 3. There is no clinically significant reflux noted in the visualized veins of the left lower extremity venous system Procedure Details A mitchell scale, color and doppler analysis ultrasound was performed. During the study longitudinal and transverse views were obtained. Continuous wave doppler and pulsed wave doppler was performed. Overall the study quality was good. Lower Venous Extremity Findings Right Lower Venous Known occlusive thrombus in [...] trendelenburg. Left saphenopopliteal junction was not identified. Right Lower Venous Measurements Vein Diam Reflux Time GSV Junction 0.66 cm 700 ms GSV Thigh Prox 0.3 cm GSV Below Knee Prox 0.12 cm GSV Below Knee Dist 0.17 cm SSV Prox 0.25 cm 3,461 ms SSV Mid 0.18 cm 4,506 ms Pop 450 ms Left Lower Venous Measurements Vein Diam GSV Junction 0.76 cm GSV At Knee 0.21 cm GSV Below Knee Prox 0.26 cm GSV Below Knee Dist 0.17 cm SSV Prox 0.29 cm SSV Mid 0.16 cm All Reviewers List OSWALDO Vizcarra on 12/01/2024 16:27 Signed at 1029 EST [facility] Vascular US duplex lower extremity arteries bilateral with FATMATA Order# [id number] Reading physician: Bo Blanco MD Ordering provider: Ahmet Banks MD Study date: 11/24/24 Patient Information Patient Name Mark Anthony Omalley Legal Sex Male (84 y.o.) Reason for Exam Priority: Routine peripheral vascular disease Dx: Infrarenal abdominal aortic aneurysm (AAA) without rupture ([facility]) [I71.43 (ICD-10-CM)]; Occlusion of arterial bypass graft, subsequent encounter [T82.898D (ICD-10-CM)]; Bilateral leg pain [M79.604, M79.605 (ICD-10-CM)] PACS Images Show images for Vascular US duplex lower extremity arteries bilateral with FATMATA Procedure Voucher Examiner/Clinician: Kathy Yusuf Supporting Staff: Performing Physician/Midlevel: None Interpretation Summary Show Result Comparison Right mid posterior tibial artery is occluded. Right distal posterior tibial artery is occluded. Right: The FATMATA could not be calculated due to noncompressible vessel. The toe brachial index (TBI) is 0.17which is abnormal. Monophasic pulse volume waveform at [...] The FATMATA is 1.17 which is normal. The toe brachial index is 0.74. Normal pulse volume waveform at the left ankle. Normal amplitude PPG waveform in the digit. There is severe, calcific atherosclerotic palque in the left lower extremity arteries. Patent left femoral to tibioperoneal graft. There is severe (50-99%) stenosis of left distal popliteal artery and proximal left anterior tibialartery. 3-vessel runoff is noted in the left calf. Procedure Details A mitchell scale, color and doppler analysis ultrasound was performed. During the study longitudinal and transverse views were obtained. Continuous wave doppler and pulsed wave doppler was performed. Overall the study quality was technically difficult. Study was technically difficult due to: acoustic shadowing and patient uncooperative. Lower Extremity Arterial Findings Right Lower Arterial Duplex The distal external [...] flow. Known he mid peroneal vein thrombosis. Right Lower Bypass Graft Graft 1: There is a known popliteal to dorsalis pedis graft present and occluded at the mid graft (See below for measurements) Prox anast: 8 cm/s Prox bypass: 15 cm/s Mid bypass: 0 cm/s Distal bypass: 6 cm/s Distal anast: 14 cm/s Outflow bypass: 80 cm/s Right Segmental Pressures Unable to obtain right FATMATA due to uncompressible arteries Left Lower Arterial Duplex The distal external iliac artery has triphasic flow. The common femoral artery has biphasic flow. The profunda femoris artery has biphasic flow. The superficial femoral artery has biphasic flow. The popliteal artery has biphasic flow. The anterior tibial artery has biphasic flow. The posterior tibial artery has biphasic flow. The mid peroneal artery has triphasic flow. Left Lower Bypass Graft Graft 2: There is a patent femoral to tibialperoneal graft present. (See below for measurements) Inflow: 102 cm/s Prox anast: 71 cm/s Prox bypass: 73 cm/s Mid bypass: 84 cm/s Distal bypass: 82 cm/s Distal anast: 76 cm/s Left Segmental Pressures Unable to obtain left brachial BP due to diabetic sensor Iliac Artery Measurements PSV Rt EIA Prox 79 cm/s Rt EIA Dist 104 cm/s Lt EIA Prox 106 cm/s Lt EIA Dist 96 cm/s Right Lower Arterial Measurements PSV COMMUNITY AFFAIRS DIRECTOR Prox 74 cm/s PFA 74 cm/s SFA Prox 39 cm/s SFA Mid 48 cm/s SFA Dist 45 cm/s Pop Prox 28 cm/s Pop Dist 221 cm/s OPEN HEARTH MELTER Prox 13 cm/s OPEN HEARTH MELTER Mid 0 cm/s OPEN HEARTH MELTER Dist 0 cm/s DUNCAN Prox 19 cm/s DUNCAN Mid 16 cm/s DUNCAN Dist 117 cm/s Peroneal Mid 18 cm/s Left Lower Arterial Measurements PSV COMMUNITY AFFAIRS DIRECTOR Prox 60 cm/s PFA 47 cm/s SFA Prox 41 cm/s SFA Mid 18 cm/s SFA Dist 20 cm/s Pop Prox 11 cm/s Pop Dist 84 cm/s OPEN HEARTH MELTER Prox 74 cm/s OPEN HEARTH MELTER Mid 108 cm/s OPEN HEARTH MELTER Dist 82 cm/s DUNCAN Prox 28 cm/s DUNCAN Mid 21 cm/s DUNCAN Dist 25 cm/s Peroneal Mid 61 cm/s Segmental Pressure Measurements Right Left Brachial BP 132 mmHg Post Tibial BP 155 mmHg Dorsalis Pedis BP 146 mmHg FATMATA 1.17 Toe Pressure 23 mmHg 98 mmHg TBI 0.17 0.74 All Reviewers List OSWALDO Vizcarra on 11/27/2024 09:03 Signed at 1018 EST * Ahmet Banks MD - 12/22/2024 11:45 AM EDT PATIENT: Mark Anthony Omalley ENCOUNTER: 12/22/2024 EMRN: [id number] : 1940 PCP: Marni Ferguson MD CHIEF COMPLAINT: Peripheral Vascular Disease and Chronic Venous Insufficiency HPI: This is a 84 y.o. male who presents for follow-up of PAD. He is s/p Left superficial femoral to tibioperoneal trunk artery bypass with 6 mm Propaten graft on 06/28/2024 at [facility]. He hashigh takeoff of the anterior tibial artery and had bypass for critical limb ischemia with left plantar ulcer and rest pain. He has history of bilateral greater saphenous vein harvest for CABG. He hasno adequate vein conduit available for bypass. His left fifth plantar metatarsal ulcer within a month of the surgery. His left leg pain has completely resolved. During his last bilateral lower extremity arterial duplex he was noted to have an occlusion of his prior Right tibial artery bypass which had been performed by Dr. Castillo over 10 years ago. He was admitted to the hospital although he was asymptomatic for further evaluation and angiogram. He had antegrade right COMMUNITY AFFAIRS DIRECTOR access with right lower extremity angiogram and no intervention performed. Patient hadtibioperoneal trunk stenosis but had large collaterals with a peroneal runoff to the ankle. Given that he was asymptomatic no intervention was performed. Patient subsequently developed pain within his foot and was seen in urgent care, worked up and treated for gout. Patient patient follows up today with no complaints within his legs. He does have some residual pain within his foot but claims his right foot gout pain has improved over the past several days. Patient has bilateral neuropathy and is currently pain-free. Patient also has updated bilateral lower extremity arterial duplex and venousreflux studies. See findings below. PAST MEDICAL HISTORY: (reviewed and unchanged) Patient Active Problem List Diagnosis AAA (abdominal aortic aneurysm) ([facility]) Anxiety Bacterial pneumonia BPH (benign prostatic hyperplasia) CHF (congestive heart failure) ([facility]) Coronary artery disease involving [place] heart without angina pectoris Gastroesophageal reflux disease without esophagitis Gastrointestinal hemorrhage Heart block AV complete ([facility]) Hyperlipidemia Leg edema Malignant neoplasm of right vocal cord ([facility]) Neuropathy CHRISTY (obstructive sleep apnea) Peripheral vascular disease ([facility]) SSS (sick sinus syndrome) ([facility]) ST elevation myocardial infarction (STEMI) ([facility]) Throat cancer ([facility]) CKD (chronic kidney disease) stage 3, GFR 30-59 ml/min ([facility]) Type 2 diabetes mellitus with neurological manifestation ([facility]) Acute hypoxemic respiratory failure (CMS/HCC) Diabetic neuritis (CMS/HCC) Hypertension Lumbar spondylosis Type 2 diabetes mellitus with renal manifestations (CMS/HCC) Occlusion of arterial bypass graft (CMS/HCC) Acute deep vein thrombosis (DVT) of femoral vein of right lower extremity (CMS/HCC) PAST SURGICAL HISTORY: (reviewed and unchanged) Past Surgical History: Procedure Laterality Date BACK SURGERY Bilateral 10/08/2022 PROCEDURE: HISTORICAL BACK SURGERY; COMMENT: Bilateral L3, L4 and L5 radiofrequency neurotomy Dr. Sahu CARPAL TUNNEL RELEASE Right PROCEDURE: PA NEUROPLASTY &/TRANSPOS MEDIAN NRV CARPAL TUNNE; COMMENT: dr. cazares COLONOSCOPY 2011 PROCEDURE: HISTORICAL COLONOSCOPY CORONARY ARTERY BYPASS GRAFT 1996 PROCEDURE: HISTORICAL CABG; COMMENT: x4 EYE SURGERY PROCEDURE: HISTORICAL EYE SURGERY; COMMENT: [place] HERNIA REPAIR Bilateral PROCEDURE: REPAIR INGUINAL HERNIA KNEE ARTHROSCOPY Right 2009 PROCEDURE: PA ARTHROSCOPY KNEE DIAGNOSTIC W/WO SYNOVIAL BX SPX; COMMENT: Meniscus NECK SURGERY PROCEDURE: HISTORICAL NECK SURGERY OTHER SURGICAL HISTORY PROCEDURE: PA DUP-SCAN LXTR ART/ARTL BPGS UNI/LMTD STUDY; COMMENT: Angioplasty and stenting of the left leg OTHER SURGICAL HISTORY PROCEDURE: PA BIOPSY OROPHARYNX; COMMENT: Throat cancer had radiation x6 weeks [facility] OTHER SURGICAL HISTORY PROCEDURE: ---- HEMORRHOIDS ---- OTHER SURGICAL HISTORY 06/15/2023 PROCEDURE: PA SLCTV CATHJ 3RD+ ORD SLCTV ABDL PEL/LXTR BRNCH OTHER SURGICAL HISTORY 06/15/2023 PROCEDURE: PA SLCTV CATHJ EA 2ND+ ORD ABDL PEL/LXTR ART BRNCH OTHER SURGICAL HISTORY 06/15/2023 PROCEDURE: X-RAY EXAM OF ARM/LEG ARTERY OTHER SURGICAL HISTORY 06/15/2023 PROCEDURE: ULTRASOUND GUIDANCE FOR VASCULAR AC OTHER SURGICAL HISTORY 06/01/2024 PROCEDURE: PA EVASC RPR DPLMNT [id number] NDGFT OTHER SURGICAL HISTORY 06/01/2024 PROCEDURE: PA OPN ILIAC ART EXPOS PROSTH/ILIAC OCCLS EVASC UNI OTHER SURGICAL HISTORY 06/01/2024 PROCEDURE: PA PERQ ACCESS & CLOSURE FEM ART FOR DELIVERY NDGFT OTHER SURGICAL HISTORY 06/01/2024 PROCEDURE: PA REVASC INTRAVASC LITHOTRIPSY OTHER SURGICAL HISTORY Left 06/28/2024 PROCEDURE: PA BYP OTH/THN VEIN FEM-ANT TIBL PST TIBL/PRONEAL PACEMAKER IMPLANT PROCEDURE: HISTORICAL PACEMAKER TONSILLECTOMY PROCEDURE: HISTORICAL TONSILLECTOMY TURP / TRANSURETHRAL INCISION / DRAINAGE PROSTATE 2005 PROCEDURE: HISTORICAL TURP MEDICATIONS: (reviewed, flow sheet updated) Outpatient Medications Marked as Taking for the 12/22/24 encounter (Office Visit) with Ahmet Banks MD Medication Sig Dispense Refill aspirin 81 mg chewable tablet 1 tablet = 81 mg, By Mouth, Daily, 0 Refills, Maintenance, 09/18/19 9:54:11 EST atenoloL (TENORMIN) 50 mg tablet TAKE 1 TABLET BY MOUTH DAILY atorvastatin (LIPITOR) 80 mg tablet TAKE 1 TABLET BY MOUTH EVERY DAY BD Ev 2nd Gen Pen Needle 32 gauge x needle USE DIRECTED TO INJECT INSULIN colchicine (COLCRYS) 0.6 mg tablet cyanocobalamin (VITAMIN B-12) 500 mcg tablet Take by mouth. 1000mg daily diphenhydrAMINE (BENADRYL) 50 mg tablet Take 1 Tablet by mouth as needed (1 hour prior to Cat Scan). fenofibrate (TRICOR) 145 mg tablet TAKE 1 TABLET BY MOUTH EVERY DAY flash glucose scanning reader ([employer]k [address] [place]) misc 1 Product by Does not apply route every 14 days flash glucose sensor kit USE DIRECTED EVERY 14 DAYS furosemide (LASIX) 20 mg tablet TAKE 1 TABLET BY MOUTH EVERY DAY AND 2 TABS EVERY OTHER DAY glucose sensor,implant-dexamet device 1 Product by Does not apply route every 14 days. ketoconazole (NIZORAL) 2 % shampoo lansoprazole (PREVACID) [address] capsule TAKE 1 CAPSULE BY MOUTH EVERY DAY LORazepam (ATIVAN) 0.5 mg tablet Take 1 tablet (0.5 mg total) by mouth 2 (two) times a day. nitroglycerin (NITROSTAT) 0.[address] 0.4 mg under the tongue every 5 minutes as needed. Nucynta ER 50 mg 12 hr tablet Take 1 tablet (50 mg total) by mouth 2 (two) times a day. Ozempic 1 mg/dose (4 mg/3 mL) injection pen Inject 1 mg under the skin every 7 (seven) days. pen needle, diabetic (BD Ultra-Fine Micro Pen Needle) 32 gauge x 1/4 needle DIRECTED TWICE DAILY predniSONE (DELTASONE) 10 mg tablet rivaroxaban (Xarelto) 2.5 mg tablet Take 1 tablet (2.5 mg total) by mouth 2 (two) times a day with meals. 60 tablet 11 Tresiba FlexTouch U-200 200 unit/mL (3 mL) CONCENTRATED injection pen Inject 20 Units under the skin at bedtime. SOCIAL HISTORY: Social History Tobacco Use Smoking status: Former Current packs/day: 0.00 Types: Cigarettes Start date: 10/04/1954 Quit date: 10/04/1994 Years since quittin.2 Smokeless tobacco: Never Substance Use Topics Alcohol use: No Drug use: No FAMILY HISTORY: Family History Problem Relation Name Age of Onset Arthritis Mother at 89 Arthritis Father at 89 ALLERGIES: (reviewed, flow sheet updated) Allergies Allergen Reactions Iodinated Contrast Media Rash Rash / dermatitis Sulfa (Sulfonamide Antibiotics) Rash/dermatitis Sulfamethoxazole-Trimethoprim Other Tetracyclines Other ROS: GENERAL: No malaise, significant weight loss or fever NECK: No lumps, goiter, pain or significant neck swelling RESPIRATORY: No cough, wheezing or shortness of breath CARDIAC: No chest pain or palpitations GI: No abdominal discomfort MUSCULOSKELETAL: SEE HPI SKIN: No lesions, rash or itching NEURO: No persistent headache, syncope, seizures, weakness or numbness VASCULAR: SEE HPI PHYSICAL EXAM: Vitals: 12/22/24 1149 BP: 120/70 Pulse: 72 Resp: 16 Weight: 88 kg (194 lb) Height: 1.778 m (70 ) General: Alert and oriented by 3 no acute distress, well-nourished HEENT: Normocephalic atraumatic Neck: No JVD, no carotid bruit, carotid pulses present Chest: Clear to auscultation bilaterally Cardiac: Regular rate rhythm Abdomen: Soft, nontender, nondistended, no widened aortic pulse Extremity: -Right upper extremity: 2+ RA -Left upper extremity: 2+ RA -Right lower extremity: No groin ecchymosis. No complications of the groin. 2+ femoral pulse palpable. No palpable PT. PT signal present. No ulcers or gangrene. -Left lower extremity: Well-healed incisions. 2+ femoral pulse palpable. No palpable PT. Biphasic PT signal present. No ulcers or gangrene. Integumentary: No wounds Lymphatics: No lymphadenopathy Neuro: Grossly intact DIAGNOSTIC TESTING: [facility] US duplex lower extremity venous bilateral Order# [id number] Reading physician: Wallace Tadeo MD Ordering provider: Ahmet Banks MD Study date: 11/29/24 Patient Information Patient Name Mark Anthony Omalley Legal Sex Male (84 y.o.) Date: 11/29/24 Reason for Exam Priority: Routine DVT Hx Dx: Acute deep vein thrombosis (DVT) of femoral vein of right lower extremity (CMS/HCC) [I82.411 (ICD-10-CM)]; Leg edema [R60.0 (ICD-10-CM)]; Bilateral leg pain [M79.604, M79.605 (ICD-10-CM)] PACS Images Vascular US duplex lower extremity venous bilateral Procedure Voucher Examiner/Clinician: Kathy Yusuf Supporting Staff: Performing Physician/Midlevel: None Interpretation Summary RIGHT: 1. The patient underwent a right lower extremity venous ultrasound on 10/26/2024 which showed a Deepvein thrombosis involving the proximal to mid femoral vein and the peroneal vein. 2. On the current study, there was no evidence of a deep vein thrombosis in the femoral vein. 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 3. The visualized portions of the GSV are competent. Of note, the GSV was not well-visualized at the lower thigh and knee levels likely secondary to a past history of an EVLT of the GSV. 4. The femoral vein is competent. The right popliteal vein has non-significant reflux. Of note, theright SPJ was not well-visualized. 5. The saphenofemoral junction and SSV have clinically significant reflux as described below. LEFT: 1. There is no evidence of a DVT in the left lower extremity. 2. The GSV was not well-visualized at the thigh level likely secondary to a past history of an EVLT. Of note, the left SPJ was not well-visualized on the current study. 3. There is no clinically significant reflux noted in the visualized veins of the left lower extremity venous system Procedure Details A mitchell scale, color and doppler analysis ultrasound was performed. During the study longitudinal and transverse views were obtained. Continuous wave doppler and pulsed wave doppler was performed. Overall the study quality was good. Lower Venous Extremity Findings Right Lower Venous Known occlusive thrombus in [...] trendelenburg. Left saphenopopliteal junction was not identified. Right Lower Venous Measurements Vein Diam Reflux Time GSV Junction 0.66 cm 700 ms GSV Thigh Prox 0.3 cm GSV Below Knee Prox 0.12 cm GSV Below Knee Dist 0.17 cm SSV Prox 0.25 cm 3,461 ms SSV Mid 0.18 cm 4,506 ms Pop 450 ms Left Lower Venous Measurements Vein Diam GSV Junction 0.76 cm GSV At Knee 0.21 cm GSV Below Knee Prox 0.26 cm GSV Below Knee Dist 0.17 cm SSV Prox 0.29 cm SSV Mid 0.16 cm All Reviewers List OSWALDO Vizcarra on 12/01/2024 16:27 Signed at 1029 EST Mark Anthony Omalley Vascular US duplex lower extremity arteries bilateral with FATMATA Order# [id number] Reading physician: Bo Blanco MD Ordering provider: Ahmet Banks MD Study date: 11/24/24 Patient Information Patient Name Mark Anthony Omalley Legal Sex Male (84 y.o.) Date: 11/24/24 Reason for Exam Priority: Routine peripheral vascular disease Dx: Infrarenal abdominal aortic aneurysm (AAA) without rupture (CMS/HCC) [I71.43 (ICD-10-CM)]; Occlusion of arterial bypass graft, subsequent encounter [T82.898D (ICD-10-CM)]; Bilateral leg pain [M79.604, M79.605 (ICD-10-CM)] PACS Images Vascular US duplex lower extremity arteries bilateral with FATMATA Procedure Voucher Examiner/Clinician: Kathy Yusuf Supporting Staff: Performing Physician/Midlevel: None Interpretation Summary Show Result Comparison Right mid posterior tibial artery is occluded. Right distal posterior tibial artery is occluded. Right: The FATMATA could not be calculated due to noncompressible vessel. The toe brachial index (TBI) is 0.17which is abnormal. Monophasic pulse volume waveform at [...] The FATMATA is 1.17 which is normal. The toe brachial index is 0.74. Normal pulse volume waveform at the left ankle. Normal amplitude PPG waveform in the digit. There is severe, calcific atherosclerotic palque in the left lower extremity arteries. Patent left femoral to tibioperoneal graft. There is severe (50-99%) stenosis of left distal popliteal artery and proximal left anterior tibialartery. 3-vessel runoff is noted in the left calf. Procedure Details A mitchell scale, color and doppler analysis ultrasound was performed. During the study longitudinal and transverse views were obtained. Continuous wave doppler and pulsed wave doppler was performed. Overall the study quality was technically difficult. Study was technically difficult due to: acoustic shadowing and patient uncooperative. Lower Extremity Arterial Findings Right Lower Arterial Duplex The distal external [...] flow. Known he mid peroneal vein thrombosis. Right Lower Bypass Graft Graft 1: There is a known popliteal to dorsalis pedis graft present and occluded at the mid graft (See below for measurements) Prox anast: 8 cm/s Prox bypass: 15 cm/s Mid bypass: 0 cm/s Distal bypass: 6 cm/s Distal anast: 14 cm/s Outflow bypass: 80 cm/s Right Segmental Pressures Unable to obtain right FATMATA due to uncompressible arteries Left Lower Arterial Duplex The distal external iliac artery has triphasic flow. The common femoral artery has biphasic flow. The profunda femoris artery has biphasic flow. The superficial femoral artery has biphasic flow. The popliteal artery has biphasic flow. The anterior tibial artery has biphasic flow. The posterior tibial artery has biphasic flow. The mid peroneal artery has triphasic flow. Left Lower Bypass Graft Graft 2: There is a patent femoral to tibialperoneal graft present. (See below for measurements) Inflow: 102 cm/s Prox anast: 71 cm/s Prox bypass: 73 cm/s Mid bypass: 84 cm/s Distal bypass: 82 cm/s Distal anast: 76 cm/s Left Segmental Pressures Unable to obtain left brachial BP due to diabetic sensor Iliac Artery Measurements PSV Rt EIA Prox 79 cm/s Rt EIA Dist 104 cm/s Lt EIA Prox 106 cm/s Lt EIA Dist 96 cm/s Right Lower Arterial Measurements PSV COMMUNITY AFFAIRS DIRECTOR Prox 74 cm/s PFA 74 cm/s SFA Prox 39 cm/s SFA Mid 48 cm/s SFA Dist 45 cm/s Pop Prox 28 cm/s Pop Dist 221 cm/s OPEN HEARTH MELTER Prox 13 cm/s OPEN HEARTH MELTER Mid 0 cm/s OPEN HEARTH MELTER Dist 0 cm/s DUNCAN Prox 19 cm/s DUNCAN Mid 16 cm/s DUNCAN Dist 117 cm/s Peroneal Mid 18 cm/s Left Lower Arterial Measurements [facility]V COMMUNITY AFFAIRS DIRECTOR Prox 60 cm/s PFA 47 cm/s SFA Prox 41 cm/s SFA Mid 18 cm/s SFA Dist 20 cm/s Pop Prox 11 cm/s Pop Dist 84 cm/s OPEN HEARTH MELTER Prox 74 cm/s OPEN HEARTH MELTER Mid 108 cm/s OPEN HEARTH MELTER Dist 82 cm/s DUNCAN Prox 28 cm/s DUNCAN Mid 21 cm/s DUNCAN Dist 25 cm/s Peroneal Mid 61 cm/s Segmental Pressure Measurements Right Left Brachial BP 132 mmHg Post Tibial BP 155 mmHg Dorsalis Pedis BP 146 mmHg FATMATA 1.17 Toe Pressure 23 mmHg 98 mmHg TBI 0.17 0.74 All Reviewers List [email or web address] Vizcarra on 11/27/2024 09:03 Signed at 1018 EST Right lower extremity venous duplex on 10/26/2024 INDICATION: leg pain and swelling. FINDINGS: [...] Signed Date: 10/26/2024 17:00 ET Workstation ID: [id number] Transcribed By: Self Edit Transcribed Date: 10/26/2024 16:59 ET Bilateral extremity arterial duplex on 10/25/2024 PAD (peripheral artery disease) Dx: PAD (peripheral artery disease) ([facility]) [I73.9 (ICD-10-CM)] Right le. Severely abnormal ankle-brachial index at 0.25. 2. Abnormal toe brachial index at 0.19. 3. The patient has a history of a right popliteal to dorsalis pedis bypass graft placement in the past. 4. The right popliteal artery to dorsalis pedis bypass graft was identified. The bypass graft was noted to be occluded at the midportion of the graft. There is also evidence of elevated velocities inthe outflow of the graft suggestive of a significant stenosis at this site. 5. There is evidence of a severe stenosis (50-99%) in the right distal popliteal artery. 6. The proximal to mid anterior tibial artery is occluded. There is reconstitution of flow at the level of the distal anterior tibial artery. 7. The right mid posterior tibial artery is occluded. There is reconstitution of flow at the level of the distal posterior tibial artery. 8. There is evidence of a severe stenosis (50-99%) in the right mid peroneal artery. 9. Incidental finding of an occlusive deep vein thrombosis in the proximal to mid peroneal vein. Left leg: Unable to estimate the ankle-brachial index due to noncompressible vessels. Normal toe brachial index at 0.82 The patient underwent a left SFA to tibial peroneal trunk artery bypass graft placement on 06/28/2024. The left SFA to tibioperoneal trunk arterial bypass graft was noted to be patent. There is evidence of an avascular partially heterogeneous structure associated to the proximal anastomosis of the bypass graft which is suggestive of a complex hematoma. There is a moderate stenosis (25-49%) in the left profunda femoral artery There is evidence of a severe stenosis (50-99%) in the left distal SFA and popliteal artery. There is evidence of a severe stenosis (50-99%) in the left anterior tibial artery and peroneal artery. A message about the study results was sent to the ordering provider on the day of the study. I independently reviewed the studies along with the images. ASSESSMENT: 1. Peripheral vascular disease ([facility]) 2. PAD (peripheral artery disease) ([facility]) 3. Acute deep vein thrombosis (DVT) of femoral vein of right lower extremity ([facility]) PLAN: 84 y.o. male with PAD and deep vein thrombosis. Results of arterial duplex and venous reflux studies discussed with the patient and his . Patient has resolution of DVT of right common femoral vein. He has persistent chronic right peroneal DVT. He is no longer on anticoagulation and does not warrant any further anticoagulation at this time. No further workup warranted. Patient has bilateral peripheral arterial disease. He has s/p Left superficial femoral to tibioperoneal trunk artery bypass with 6 mm Propaten graft on 06/28/2024 which is patent with no significant stenosis seen on most recent arterial duplex. Left lower extremity is asymptomatic. Patient also has a symptomatic occluded left femoral-popliteal artery bypass. He is clinically asymptomatic. He does have gout within the left foot which is being adequately treated. Patient instructed follow-up soonerif gout pain does not resolve as there may be a component of peripheral arterial occlusive disease.Otherwise, patient follow-up in 6 months with repeat bilateral extremity arterial duplex Patient was counseled on risk factor modification. We discussed the natural pathophysiology of PAD and venous disease. 45 minutes spent on patient encounter including time spent with patient, chart review, review of imaging/diagnostic studies, all necessary communications and documentation. documented in this encounter Plan of Treatment Upcoming Encounters Date Type Department Care Team (Late st Contact Info) Description 05/16/2025 10:30 AM EDT Ancillary Procedure [facility] [address] [place] [address] 06/25/2025 11:00 AM EDT Office Visit Vascular Surgery - [place] [address] [place] [address] Ahmet Banks MD [address] [place] [address] Scheduled Orders Name Type Priority Associated Diagnoses Orde r Schedule Vascular US duplex lower extremity arteries bilateral with FATMATA Vascular Ultrasound Routine Peripheral vascular disease ([facility]) PAD (peripheral artery disease) ([facility]) Expected: 05/24/2025, Expires: 12/22/2025 documented as of this encounter Visit Diagnoses Diagnosis Peripheral vascular disease ([facility])- Primary Unspecified peripheral vascular disease PAD (peripheral artery disease) ([facility]) Unspecified peripheral vascular disease Acute deep vein thrombosis (DVT) of femoral vein of right lower extremity Encounter for adjustment or management of cardiac device documented in this encounter Historical Medications * This list may reflect changes made after this encounter. Medication Sig Dispense Quantity Refills Last Filled Start D ate End Date predniSONE (DELTASONE) 10 mg tablet 12/20/2024 colchicine (COLCRYS) 0.6 mg tablet 12/20/2024 added in this encounter Additional Health Concerns Infection Onset Date Last Indicated Resolved Time Human Metapneumovirus 10/27/2024 10/27/2024 documented as of this encounter Care Teams Boiler Riveter Relationship Specialty Start Date End Date Marni Ferguson MD [address] [place] [phone] PCP - General Internal Medicine 10/26/24 documented as of this encounter
--- OUTSIDE RECORDS SUMMARY | 2024-12-26 18:29 | XMS_ITS | Clinical Summary ---
Author Organization [address] [facility] Address [address] [place] [address] Phone Care Team Providers Care Assembly Member Name Role Phone Marni Fergusno MD Primary Care Provider [phone] Allergies Active Allergy Reactions Criticality Noted Date [...] DAY 2 Active flash glucose scanning reader ([employer]k 2 Laura) [facility] [place] 1 Product by Does [...] with meals. 60 tablet 11 5 Active colchicine (COLCRYS) 0.6 mg tablet 5 Active predniSONE (DELTASONE) 10 mg tablet 5 Active enoxaparin (LOVENOX) 40 mg/0.4 mL syringe Inject 0.4 mL (40 mg total) under the skin 1 (one) time each day at the same time. 30 each 5 11/27/19 25 sodium chloride (OCEAN) 0.65 % nasal spray Administer 2 sprays into each nostril 3 (three) times a day if needed for congestion. 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 Omalley underwent bilateral radiofrequency ablation on 10/08/2022 at [facility] with some improvement lasting 1 month. 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 08/09/2020 Overview (08/29/2024): [...] Encounters Date Type Department Care Team Description 12/22/2024 11:45 AM EDT Office Visit [facility] - [place] [address] [place] [address] Ahmet Banks MD Peripheral vascular disease (CMS/HCC) (Primary Dx); PAD (peripheral artery disease) (CMS/HCC); Acute deep vein thrombosis (DVT) of femoral vein of right lower extremity (CMS/HCC) 12/11/2024 Telephone Vascular Surgery - [place] [address] [place] [address] Ahmet Banks MD Provider Call Back 11/29/2024 10:30 AM EST Ancillary Procedure [facility] - [facility] [address] [place] [address] Acute deep vein thrombosis (DVT) of femoral vein of right lower extremity (CMS/HCC); Leg edema; Bilateral leg pain 11/24/2024 10:30 AM EST Ancillary Procedure [facility] - [address] [place] [address] Infrarenal abdominal aortic aneurysm (AAA) without rupture (CMS/HCC); Occlusion of arterial bypass graft, subsequent encounter; Bilateral leg pain 11/22/2024 9:40 AM EST Ancillary Procedure [facility] Cardiology [facility] - [address] [place] [address] 11/03/2024 1:30 PM EST Office Visit Vascular Surgery - [place] [address] [place] [address] Ahmet Banks MD Infrarenal abdominal aortic aneurysm (AAA) without rupture (CMS/HCC) (Primary Dx); Occlusion of arterial bypass graft, subsequent encounter; Acute deep vein thrombosis (DVT) of femoral vein of right lower extremity (CMS/HCC); Leg edema; Bilateral leg pain 10/31/2024 11:30 AM EST - 10/31/2024 12:30 PM EST Surgery [facility] Cardiac Pump Machine Operator [address] [place] [address] Ahmet Banks MD Angiography lower ext right [03619 (CPT??)] 10/31/2024 9:42 AM EST - 10/31/2024 6:38 PM EST Hospital Encounter [facility] Cardiac [facility] Machine [address] [place] [address] Ahmet Banks MD Occlusion of arterial bypass graft, initial encounter (CMS/HCC) Discharge Disposition: Home or Self Care 10/28/2024 4:41 PM EST - 10/28/2024 6:55 PM EST Emergency [facility] Emergency [address] [place] [address] Bleeding (Primary Dx) Discharge Disposition: Home or Self Care 10/26/2024 5:17 PM EST - 10/28/2024 1:22 PM EST Emergency [facility] Medical Surgical Unit [address] [place] [phone] Maximus Goins MD Jones, Christopher, MD Kela, Kashyap Devendrabhai, MD Deep vein thrombosis (DVT) of proximal lower extremity, unspecified chronicity, unspecified laterality (CMS/HCC) (Primary Dx); Epistaxis Discharge Disposition: Home or Self Care 10/26/2024 4:23 PM EST - 10/26/2024 11:59 PM EST Hospital Encounter [facility] Ultrasound [address] [place] [phone] Acute deep vein thrombosis (DVT) of right peroneal vein (CMS/HCC) Discharge Disposition: Home or Self Care 10/25/2024 10:30 AM EST Ancillary Procedure [facility] - [address] [place] [phone] PAD (peripheral artery disease) (CMS/HCC) from Last [...] COMMENT: Throat cancer had radiation x6 weeks [facility] EYE SURGERY PROCEDURE: HISTORICAL EYE SURGERY; [...] HISTORY 06/01/2024 PROCEDURE: LA EVASC RPR DPLMNT [id number] OTHER SURGICAL HISTORY 06/01/2024 PROCEDURE: LA [...] 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 ([facility]) 08/09/2020 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 Pacemaker 08/09/2020 DX:Pacemaker ST elevation myocardial infa rction (STEMI) ([facility]) 08/09/2020 DX:ST elevation myocardial infarction (STEMI) ([facility]) Throat cancer ([facility]) 08/09/2020 DX:Throa t cancer ([facility]); COMMENT: 2020: received RT Hyperlipidemia 08/09/2020 DX:Hyperlipidemi a HTN (hypertension) 08/09/2020 DX:HTN (hyper tension) History of diverticulitis 08/09/2020 DX:His tory of diverticulitis Peripheral vascular disease ([facility]) 08/09/2020 DX:Peripheral vascular disease (HCC) Diabetic neuritis ([facility]) 08/09/2020 DX:D iabetic neuritis ([facility]) Gastroesophageal reflux dise ase without esophagitis 08/09/2020 DX:Gastroesophageal reflux d isease without esophagitis Anxiety 08/09/2020 DX:Anxiety 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 DX:Malignant neoplasm of rig ht vocal cord ([facility]) 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) [...] Pulse 72 12/22/2024 11:49 AM EDT Temperature 36.9 ??C (98.4 ??F) 10/31/2024 10:[address] Respiratory Rate 16 12/22/2024 11:49 AM EDT Oxygen Saturation 96% 10/31/2024 5:00 PM EST Inhaled Oxygen Concentration - - Weight 88 kg (194 lb) 12/22/2024 11:49 AM EDT Height 177.8 cm (5' 10 ) 12/22/2024 11:49 AM EDT Body Mass Index 27.84 12/22/2024 11:49 AM EDT Plan of Treatment Upcoming Encounters Date Type Department Care Team (Late st Contact Info) Description 05/16/2025 10:30 AM EDT Ancillary Procedure [facility] - [facility] [address] [facility] [address] [place] [phone] 06/25/2025 11:00 AM EDT Office Visit Vascular Surgery - [place] [address] [place] [phone] Ahmet Banks MD [address] [place] [address] Health Maintenance Due Date Last Done Comments [...] this topic Medical Devices Implanted Type Area Raw Stock Dyeing Machine Tender Device Identifier Shelf Expiration Date Model / Serial / Lot Medt-Card [place] Xt Dr Artis [id number] Implanted: (Quantity not on file) Cardiac Pacemaker [employer] - CARDIAC RHYTH-CRDM KENDELL XT DR ARTIS [id number] / [id number] / Procedures Procedure Name Priority Date/Time Associated [...] Occlusion of arterial bypass graft, initial encounter ([facility]) POCT GLUCOSE BLOOD Routine 10/28/2024 11 :25 [...] trendelenburg. Left saphenopopliteal junction was not identified. Drafter Electromechanical Details A mitchell scale, color and doppler [...] PSV 28 cm/s CV VAS LAB Left INFORMATION CONSULTANT prox sys PSV 60 cm/s CV VAS [...] PSV 19 cm/s CV VAS LAB Right INFORMATION CONSULTANT prox sys PSV 74 cm/s CV VAS [...] The mid peroneal artery has triphasic flow. Drafter Electromechanical Details A mitchell scale, color and doppler [...] 9:36 AM EST) Date Time Interrogation Session [id number] CV DEVICE CHECK Type Interrogation Session Remote CV DEVICE CHECK Implantable Pulse Generator Raw Stock Dyeing Machine Tender CARL CV DEVICE CHECK Implantable Pulse Generator Type IPG CV DEVICE CHECK Implantable Pulse Generator Model Frontenac XT MRI [id number] CV DEVICE CHECK Implantable Pulse Generator Serial Number [id number] CV DEVICE CHECK Implantable Pulse Generator Implant Date [id number] CV DEVICE CHECK Battery Remaining Longevity 106.0 CV DEVICE CHECK Battery Voltage 3.000 CV D EVICE CHECK Battery CELERY WRAPPER Trigger 2.625 CV DEVICE CHECK Battery Status Middle of Service CV DEVICE CHECK Jag Statistic RA Percent Paced 99.51 CV DEVICE CHECK Jag Statistic RV Percent Paced 99.53 CV DEVICE CHECK Atrial Tachy Statistic AT/AF [place] Percent 0.00 CV DEVICE CHECK Lead Channel [...] Final Result * (ABNORMAL) POCT activated clotting timemayco (10/31/2024 1:31 PM EST) Activated Clotting Time Kaolin 176(H) 74 - 137 sec 10/31/2024 1:33 PM EST [facility] Blood Arterial blood specimen / Unknown 10/31/2024 1:31 PM EST 10/31/2024 1:34 PM EST Ahmet Banks MD LAB POINT OF CARE TE ST DOCKED DEVICE UNSOLICITED RESULTS Final Result Performing Organization Address [facility]/ZIP Co de Phone Number [facility] [address] [place] [address], [place] [phone] * ANGIOGRAPHY LOWER EXT RIGHT (10/31/2024 12:53 [...] of8 resultswithin the time period is included. Pathologist [facility] Glucose POCT 101(H) 70 - 100 mg/dL 10/28/2024 11:26 AM EST [facility] Blood Capillary blood specimen / Unknown 10/28/2024 11:25 AM EST 10/28/2024 11:27 AM EST Francisco Calixto MD LAB POINT O F CARE TEST DOCKED DEVICE UNSOLICITED RESULTS Final Result Performing Organization Address City/[facility]/ZIP Co de Phone Number [facility] [address] [place] [address], [place] [phone] * (ABNORMAL) CBC auto differential (10/28/2024 6:20 AM EST) Only the most recent of3 resultswithin the time period is included. [facility] Signature WBC 6.9 4.8 - 10.8 K/mcL LAB HEMETOLOGY METHOD 10/28/2024 7:47 AM [facility] RBC 3.00(L) 4.50 - 5.50 M/mcL LAB HEMETOLOGY METHOD 10/28/2024 7:47 AM [facility] Hemoglobin 10.0(L) 13.5 - 17.5 g/dL LAB HEMETOLOGY METHOD 10/28/2024 7:47 AM [facility] Hematocrit 31.2(L) 42.0 - 54.0 % LAB HEMETOLOGY METHOD 10/28/2024 7:47 AM [facility] MCV 105.1(H) 79.0 - 98.0 FL LAB HEMETOLOGY METHOD 10/28/2024 7:47 AM [facility] MCH 33.7(H) 27.0 - 32.0 pcg LAB HEMETOLOGY METHOD 10/28/2024 7:47 AM [facility] MCHC 32.1 32.0 - 37.0 g/dL LAB HEMETOLOGY METHOD 10/28/2024 7:47 AM [facility] RDW 15.6(H) 11.0 - 15.0 % LAB HEMETOLOGY METHOD 10/28/2024 7:47 AM [facility] Platelets 188 130 - 400 K/mcL LAB HEMETOLOGY METHOD 10/28/2024 7:47 AM [facility] MPV 10.2 7.0 - 11.0 FL LAB HEMETOLOGY METHOD 10/28/2024 7:47 AM [facility] NRBC 0.0 <1.0 % LAB HEMETOLOGY METHOD 10/28/2024 7:47 AM [facility] NRBC Absolute 0.00 <0.10 K/mcL LAB HEMETOLOGY METHOD 10/28/2024 7:47 AM [facility] Neutrophils Relative 53.6 % LAB HEMETOLOGY METHOD 10/28/2024 7:47 AM [facility] Lymphocytes Relative 28.4 % LAB HEMETOLOGY METHOD 10/28/2024 7:47 AM [facility] Monocytes Relative 13.4 % LAB HEMETOLOGY METHOD 10/28/2024 7:47 AM [facility] Eosinophils Relative 3.9 % LAB HEMETOLOGY METHOD 10/28/2024 7:47 AM [facility] Basophils Relative 0.4 % LAB HEMETOLOGY METHOD 10/28/2024 7:47 AM [facility] Immature Granulocytes Relative 0.3 % LAB HEMETOLOGY METHOD 10/28/2024 7:47 AM [facility] Neutrophils Absolute 3.67 1.50 - 7.00 K/mcL LAB HEMETOLOGY METHOD 10/28/2024 7:47 AM [facility] Lymphocytes Absolute 1.95 1.00 - 5.00 K/mcL LAB HEMETOLOGY METHOD 10/28/2024 7:47 AM [facility] Monocytes Absolute 0.92 0.20 - 1.00 K/mcL LAB HEMETOLOGY METHOD 10/28/2024 7:47 AM [facility] Eosinophils Absolute 0.27 0.00 - 0.50 K/mcL LAB HEMETOLOGY METHOD 10/28/2024 7:47 AM [facility] Basophils Absolute 0.03 0.00 - 0.20 K/mcL LAB HEMETOLOGY METHOD 10/28/2024 7:47 AM [facility] Immature Granulocytes Absolute 0.02 0.00 - 0.03 K/mcL LAB HEMETOLOGY METHOD 10/28/2024 7:47 AM [facility] Blood Venous blood specimen / Unknown Venipuncture / Unknown 10/28/2024 6:20 AM EST 10/28/2024 7:00 AM EST Mago CHACON LAB BLOOD ORDERABLES Final Result [facility] [address] [place] [address], [place] [phone] * Magnesium (10/28/2024 6:20 AM EST) Magnesium 2.2 1.9 - 2.6 mg/dL LAB CHEMISTRY METHOD 10/28/2024 7:52 AM [facility] Blood Venous blood specimen / Unknown Venipuncture / Unknown 10/28/2024 6:20 AM EST 10/28/2024 7:00 AM EST Mago CHACON LAB BLOOD ORDERABLES Final Result Performing Organization Address City/[facility]/ZIP Co de Phone Number [facility] [address] [place] [address], [place] [phone] * (ABNORMAL) Basic metabolic panel (10/28/2024 6:20 AM EST) Only the most recent of3 resultswithin the time period is included. Sodium 143 133 - 145 mmol/L LAB CHEMISTRY METHOD 10/28/2024 7:52 AM [facility] Potassium 4.0 3.5 - 5.5 mmol/L LAB CHEMISTRY METHOD 10/28/2024 7:52 AM [facility] Chloride 114(H) 96 - 110 mmol/L LAB CHEMISTRY METHOD 10/28/2024 7:52 AM [facility] CO2 23 21 - 32 mmol/L LAB CHEMISTRY METHOD 10/28/2024 7:52 AM [facility] Anion Gap 6 3 - 11 LAB CHEMISTRY METHOD 10/28/2024 7:52 AM [facility] Glucose 107(H) 70 - 100 mg/dL LAB CHEMISTRY METHOD 10/28/2024 7:52 AM [facility] BUN 24 5 - 25 mg/dL LAB CHEMISTRY METHOD 10/28/2024 7:52 AM [facility] Creatinine 1.58(H) 0.70 - 1.30 mg/dL LAB CHEMISTRY METHOD 10/28/2024 7:52 AM [facility] eGFR 43(L) >=60 mL/min/1. 73m2 LAB CHEMISTRY METHOD 10/28/2024 7:52 AM [facility] Comment:Calculation based on the??Chronic Kidney Disease Epidemiology Collaboration (CKD-EPI) equation refit??without adjustment for race. BUN/Creatinine Ratio 15.2 LAB CHEMISTRY METHOD 10/28/2024 7:52 AM [facility] Calcium 8.4(L) 8.5 - 10.5 mg/dL LAB CHEMISTRY METHOD 10/28/2024 7:52 AM [facility] Blood Venous blood specimen / Unknown Venipuncture / Unknown 10/28/2024 6:20 AM EST 10/28/2024 7:00 AM EST Mago CHACON LAB BLOOD ORDERABLES Final Result [facility] [address] [place] [address], * (ABNORMAL) Hemoglobin and hematocrit (10/27/2024 7:01 PM EST) Hemoglobin 9.9(L) 13.5 - 17.5 g/dL LAB HEMETOLOGY METHOD 10/27/2024 7:24 PM [facility] Hematocrit 30.7(L) 42.0 - 54.0 % LAB HEMETOLOGY METHOD 10/27/2024 7:24 PM [facility] Blood Venous blood specimen / Unknown Venipuncture / Unknown 10/27/2024 7:01 PM EST 10/27/2024 7:20 PM EST Mago Diez [place] LAB BLOOD ORDERABLES Final Result Performing Organization Address [facility]/ZIP Co de Phone Number [facility] [address] [place] [address], [place] [phone] * Type and screen (10/27/2024 7:01 PM EST) ABO Group O 10/27/2024 8:35 PM EST [facility] Rh Type Positive 10/27/2024 8:35 PM EST [facility] Antibody Screen Negative 10/27/2024 8:35 PM EST [facility] Blood Venous blood specimen / Unknown Venipuncture / Unknown 10/27/2024 7:01 PM EST 10/27/2024 7:20 PM EST us Mago CHACON LAB BLOOD BANK TEST ORDERA BLES Final Result Performing Organization Address [facility]/ZIP Co de Phone Number [facility] [address] [place] [address], [place] [phone] * (ABNORMAL) Heparin and low molecular weight anti Xa level (10/27/2024 6:29 AM EST) Only the most recent of4 resultswithin the time period is included. Heparin Anti-Xa 0.84(H) 0.30 - 0.70 I Unit/mL LAB COAGULATION METHOD 10/27/2024 7:21 AM EST [facility] Blood Venous blood specimen / Unknown Venipuncture / Unknown 10/27/2024 6:29 AM EST 10/27/2024 6:54 AM EST Narrative [facility] - 10/27/2024 7:21 AM EST Therapeutic range listed is for Unfractionated Heparin. LMW Heparin therapeutic range: 0.50-1.20 IU/mL us Cezar Chan MD LAB BLOOD ORDERABLES Final Result Performing Organization Address [facility]/ZIP Co de Phone Number [facility] [address] [place] [address], [place] [phone] * SST tube (10/27/2024 6:28 AM EST) Extra Tube Hold for add-ons. 10/27/2024 8:01 AM EST [facility] Comment:Auto resulted. Blood Venous blood specimen / Unknown Venipuncture / Unknown 10/27/2024 6:28 AM EST 10/27/2024 6:55 AM EST us Francisco Calixto MD LAB BLOOD ORDERABLE S Final Result Performing Organization Address [facility]/ZIP Co de Phone Number [facility] [address] [place] [address], [place] [phone] * Lavender tube (10/27/2024 6:28 AM EST) Pathologist [facility] Extra Tube Hold for add-ons. 10/27/2024 8:01 AM EST [facility] Comment:Auto resulted. Blood Venous blood specimen / Unknown Venipuncture / Unknown 10/27/2024 6:28 AM EST 10/27/2024 6:55 AM EST us Francisco Calixto MD LAB BLOOD ORDERABLE S Final Result Performing Organization Address City/[facility]/ZIP Co de Phone Number [facility] [address] [place] [address], [place] [phone] * (ABNORMAL) Respiratory virus panel molecular study (10/27/2024 12:28 AM EST) Pathologist [facility] Adenovirus Detection by PCR Not Detected Not Detected LAB MICROBIOLOGY METHOD 10/27/2024 1:34 AM [facility] Influenza A PCR Not Detected Not Detected LAB MICROBIOLOGY METHOD 10/27/2024 1:34 AM [facility] Influenza B PCR Not Detected Not Detected LAB MICROBIOLOGY METHOD 10/27/2024 1:34 AM [facility] Coronavirus 229E Not Detected Not Detected LAB MICROBIOLOGY METHOD 10/27/2024 1:34 AM [facility] Coronavirus HKU1 Not Detected Not Detected LAB MICROBIOLOGY METHOD 10/27/2024 1:34 AM [facility] Coronavirus OC43 Not Detected Not Detected LAB MICROBIOLOGY METHOD 10/27/2024 1:34 AM [facility] Coronavirus NL63 Not Detected Not Detected LAB MICROBIOLOGY METHOD 10/27/2024 1:34 AM [facility] Parainfluenza Virus 1 Not Detected Not Detected LAB MICROBIOLOGY METHOD 10/27/2024 1:34 AM [facility] Parainfluenza Virus 2 Not Detected Not Detected LAB MICROBIOLOGY METHOD 10/27/2024 1:34 AM [facility] Parainfluenza Virus 3 Not Detected Not Detected LAB MICROBIOLOGY METHOD 10/27/2024 1:34 AM [facility] Parainfluenza Virus 4 Not Detected Not Detected LAB MICROBIOLOGY METHOD 10/27/2024 1:34 AM [facility] RSV PCR Not Detected Not Detected LAB MICROBIOLOGY METHOD 10/27/2024 1:34 AM [facility] Human Metapneumovirus A and B Detected(A ) Not Detected LAB MICROBIOLOGY METHOD 10/27/2024 1:34 AM [facility] Rhinovirus/Entero virus Not Detected Not Detected LAB MICROBIOLOGY METHOD 10/27/2024 1:34 AM [facility] Bordetella pertussis Not Detected Not Detected LAB MICROBIOLOGY METHOD 10/27/2024 1:34 AM [facility] Bordetella parapertussis Not Detected Not Detected LAB MICROBIOLOGY METHOD 10/27/2024 1:34 AM EST [facility] Mycoplasma pneumo by PCR Not Detected Not Detected LAB MICROBIOLOGY METHOD 10/27/2024 1:34 AM EST [facility] Chlamydia pneumoniae Not Detected Not Detected LAB MICROBIOLOGY METHOD 10/27/2024 1:34 AM EST [facility] SARS COV-2 Not Detected Not Detected LAB MICROBIOLOGY METHOD 10/27/2024 1:34 AM EST [facility] Swab Structure of right anterior naris / Unknown Non-blood Collection / Unknown 10/27/2024 12:28 AM EST 10/27/2024 12:41 AM EST Narrative [facility] - 10/27/2024 1:34 AM EST Testing was performed using the [employer] Respiratory Pathogen PCR Assay. All results must [...] MICROBIOLOGY - GENERAL OR DERABLES Final Result [facility] [address] [place] [address], * (ABNORMAL) APTT (10/26/2024 5:50 PM EST) aPTT 52.5(H) 24.1 - 39.3 sec LAB COAGULATION METHOD 10/26/2024 6:28 PM EST [facility] Blood Venous blood specimen / Unknown Venipuncture / Unknown 10/26/2024 5:50 PM EST 10/26/2024 6:03 PM EST Maximus Goins MD LAB BLOOD ORDERABLES Final Resu lt BA [facility] [address] [place] [address], * Vascular US duplex lower extremity venous [...] Signed Date: 10/26/2024 17:00 ET Workstation ID: [id number] Transcribed By: Self Edit Transcribed Date: 10/26/2024 [...] Signed Date: 10/26/2024 17:00 ET Workstation ID: [id number] Transcribed By: Self Edit Transcribed Date: 10/26/2024 16:59 ET Andie CHACON CV VASCULAR PROCEDURES Final R esult * Hemoglobin A1c (03/22/2024) [facility] Hemoglobin A1C 6.4 <=6.5 % Blood Venous blood specimen / Unknown Result [facility] Historical Provider LAB BLOOD ORDERABLES Rosa Isela l Result * Urine Albumin Creatinine Ratio (09/08/2023) [facility] Urine Albumin Creatinine Ratio Abstracted Result [facility] Historical Provider HEALTH MAINTENANCE Final Result * (ABNORMAL) Lipid panel (09/08/2023) [facility] LDL/HDL Ratio 4 0 - 4 Triglycerides 249(A) 0 - 150 mg/dL Cholesterol 130 0 - 200 mg/dL HDL 34(A) >=40 mg/dL LDL Cholesterol 47 0 - 100 mg/dL Blood Venous blood specimen / Unknown Result [facility] Provider LAB BLOOD ORDERABLES Rosa Isela l Result * Diabetes Foot Exam (09/07/2023) [facility] Diabetes: Annual Foot Exam Abstracted Result [facility] Provider HEALTH MAINTENANCE Final Result from Last 3 Months or Most Recently Relevant to Health Maintenance Additional Health Concerns Infection Onset Date Last Indicated Human Metapneumovirus 10/27/2024 10/27/2024 Insurance MEDICARE [facility] Advance Directives Documents on File Type Date Recorded 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 Care Teams Assembly Member Relationship Specialty Start Date End Date Marni Ferguson MD [address] [place] [phone] PCP - General Internal Medicine 10/26/24
--- OUTSIDE RECORDS SUMMARY | 2024-12-26 18:29 | XMS_ITS ---
Author Organization [address] [place] [address] [place] [phone] Phone Care Team Providers Care Director Building Name Role Phone Marni Ferguson MD Primary Care Provider [phone] Transitional Care Management Status:Closed (Closed) Start date:10/28/2024 Enrollment date:10/28/2024 Enrollment reason:Identified using hospital discharge data End date:11/28/2024 Close reason:Completed program Continued Care and Services Coordination
--- OUTSIDE RECORDS SUMMARY | 2024-12-26 18:29 | XMS_ITS | Encounter Summary ---
[facility] [place] [address] Care Team Providers Care Weigher Packing Name Role Phone Marni Ferguson MD Primary Care Provider [phone] Reason for Visit * Reason Onset Date Comments Provider Call Back 12/11/2024 Encounter Details Date Type Department Care Team (Late st Contact Info) Description 12/11/2024 Telephone Vascular Surgery - [facility] [address] [place] [address] Ahmet Banks MD [address] [place] [address] Provider Call Back Social History Tobacco Use [...] Description 05/16/2025 10:30 AM EDT Ancillary Procedure [facility] [address] [facility] [address] [place] [address] 06/25/2025 11:00 AM EDT Office Visit Vascular Surgery - [facility] [address] [place] [address] Ahmet Banks MD [address] [place] [address] documented as of this encounter Visit Diagnoses Not on filedocumented in this encounter Additional Health Concerns Infection Onset Date Last Indicated Resolved Time Human Metapneumovirus 10/27/2024 10/27/2024 documented as of this encounter Care Teams Weigher Packing Relationship Specialty Start Date End Date Marni Ferguson MD [address] [place] [phone] PCP - General Internal Medicine 10/26/24 documented as of this encounter
== END 2024-12-26 16:22 | disposition home or self-care (01) ==
PROVIDERS: Visit Provider Physician Assistant
DX: L03.115 Cellulitis of right lower limb (principal)

== ENCOUNTER → 2024-12-26 14:45 | Outpatient (BNVA) | payer MEDICARE, OTHER, SELFPAY | PROVIDERS: Visit Provider Physician Assistant | DX: L03.115 Cellulitis of right lower limb (principal) | CPT/HCPCS: 99212 ==

== ENCOUNTER 2025-02-20 10:02 | Outpatient (REF) | payer MEDICARE, OTHER, SELFPAY ==
--- OUTSIDE RECORDS SUMMARY | 2025-02-20 11:13 | XMS_ITS | Clinical Summary ---
Author Organization [address] [facility] Address [address] [place] [address] Phone Care Team Providers Care Sr. Social Media & Mobile Manager Name Role Phone Marni Ferguson MD Primary Care Provider [phone] Allergies Active Allergy Reactions Criticality Noted Date Comments Iodinated Contrast Media Rash High 08/29/2024 Rash / dermatitis SWELLING Sulfa (Sulfonamide Antibiotics) Rash High 08/29/2024 Rash/dermatitis Sulfamethoxazole-Trimethopri m Rash High 08/29/2024 Tetracyclines Rash High 12/18/2020 Medications aspirin 81 mg chewable tablet [...] 2nd Gen Pen Needle 32 gauge x 32 needle USE DIRECTED TO INJECT INSULIN 4 Active flash glucose sensor kit USE DIRECTED EVERY 14 DAYS Active fenofibrate (TRICOR) 145 mg tablet 2 Active atorvastatin (LIPITOR) 80 mg tablet TAKE 1 TABLET BY MOUTH EVERY DAY 2 Active atenoloL (TENORMIN) 50 mg tablet TAKE 1 TABLET BY MOUTH DAILY 2 Active glucose sensor,implant-d examet device 1 Product by Does not apply route every 14 days. 4 Active pen needle, diabetic (BD Ultra-Fine Micro Pen Needle) 32 gauge x 1/4 needle DIRECTED TWICE DAILY 2 Active furosemide (LASIX) 20 mg tablet Take 1 tablet (20 mg total) by mouth 1 (one) time each day. 2 Active flash glucose scanning reader (FreeStyle Vivek 2 [place]) misc 1 Product by Does not apply [...] under the skin at bedtime. 4 Active fenofibrate micronized (LOFIBRA) 200 mg capsule Take 1 capsule (200 mg total) by mouth 1 (one) time each day. 5 Active rivaroxaban (Xarelto) 2.5 mg tabletIndication s:Infrarenal abdominal aortic aneurysm (AAA) without rupture (CMS/HCC V24),Occlusion of arterial bypass graft, subsequent encounter Take 1 tablet (2.5 mg total) by mouth 2 (two) times a day with meals. 60 tablet 5 Active oxyCODONE (ROXICODONE) 5 mg immediate release tabletIndication s:Critical limb ischemia of right lower extremity (CMS/HCC V24, CMS/HCC V28) Take 1 tablet (5 mg total) by mouth every 6 (six) hours if needed for severe pain. Max Daily Amount: 20 mg 20 tablet 5 Active acetaminophen (TYLENOL) 500 mg tablet Take 2 tablets (1,000 mg total) by mouth every 6 (six) hours if needed for mild pain or moderate pain. 40 tablet 5 Active senna-docusate (PERICOLACE) 8.6-50 mg per tablet Take 2 tablets by mouth at bedtime. 60 each 11 5 02/10/20 26 Active oxyCODONE (ROXICODONE) 5 mg immediate release tabletIndication s:Gangrene of toe of right foot ([facility] V24, [facility] V28),Ischemic leg Take 2 tablets (10 mg total) by mouth every 4 (four) hours if needed for severe pain. Status post incision and drainage and amputation of toe Max Daily Amount: 60 mg 15 tablet 5 Active cephalexin (KEFLEX) 500 mg capsule Take 1 capsule (500 mg total) by mouth 4 (four) times a day for 7 days. 28 each 5 02/18/20 25 Active Problems Problem Noted Date Diagnosed Date Gangrene of toe of right foot ([facility] V24, [facility] V28) 02/05/2025 Ischemic leg 01/08/2025 Occlusion of arterial bypass graft ([facility] V24) 10/26/2024 Acute deep vein thrombosis ( DVT) of femoral vein of right lower extremity ([facility] V24, [facility] V28) 10/26/2024 Diabetic neuritis ([facility] V24, [facility] V28) Hypertension 08/29/2024 Lumbar spondylosis 09/22/2022 Overview (08/29/2024): Last Assessment & Plan: Mr. Omalley underwent bilateral radiofrequency ablation on 10/08/2022 at [facility] with some improvement lasting 1 month. [...] Bacterial pneumonia 04/21/2022 CHF (congestive heart failure) ([facility] V24, [facility] V28) 04/21/2022 Gastrointestinal hemorrhage 04/21/2022 Neuropathy 04/21/2022 SSS (sick sinus syndrome) ([facility] V24, [facility] V28) 04/21/2022 Overview (08/29/2024): Last Assessment & Plan: This is been stable. He is status post pacemaker generator replacement as he was end-of-life. This is working well. He is feeling better now that his heart rates are in the higher range. Acute hypoxemic respiratory failure ([facility] V24, [facility] V28) 04/21/2022 Heart block AV complete ([facility] V24, [facility] V2 8) 04/01/2022 AAA (abdominal aortic aneurysm) ([facility] V24) Overview (08/29/2024): Last Assessment & Plan: He had a repeat echo done recently. This showed no changes when compared to before. He has been followed by vascular surgery. Malignant neoplasm of right vocal cord ([facility] V24, [facility] V28) 11/06/2020 CKD (chronic kidney disease) stage 3, GFR 30-59 ml/min ([facility] V24, [facility] V28) 11/06/2020 Anxiety 08/09/2020 BPH (benign prostatic hyperplasia) 08/09/2020 Coronary artery disease invo lving [place] heart without angina pectoris 08/09/2020 Overview (08/29/2024): [...] lifestyle choices and diet. Peripheral vascular disease ([facility] V24) 2019 Overview (08/29/2024): Last Assessment & Plan: This is stable. Again this is being followed by Dr. Banks. He states that he will be getting a lower extremity arterial study done in the next couple weeks. ST elevation myocardial infa rction (STEMI) ([facility] V24, [facility] V28) 08/09/2020 Overview (08/29/2024): Last Assessment & Plan: [...] low cholesterol diet and exercise. 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 ([facility] V24, [facility] V28) 08/09/2020 Type 2 diabetes mellitus wit h renal manifestations ([facility] V24, [facility] V28) 08/09/2020 Resolved Problems Problem Noted Date Diagnosed Date Resolved Date Critical limb ischemia of ri ght lower extremity ([facility] V24, [facility] V28) 01/08/2025 Epistaxis 10/28/2024 10/28/2024 Encounters Date Type Department Care Team Description 02/07/2025 1:22 PM EDT Anesthesia Event [facility] [place] [address] [place] [phone] Kinjal Katz MD Millay, Julia, CRNA 02/07/2025 12:30 PM EDT - 02/07/2025 1:[address] [facility] [place] [address] [place] [phone] Ahmet Banks MD INCISION DRAINAGE RIGHT FOOT 4TH MTP BONE CORTEX, WASHOUT AND WOUND CLOSURE & RIGHT FOOT SUTURE REMOVAL 02/06/2025 1:00 PM EDT - 02/06/2025 2:[address] [facility] [place] [address] [place] [phone] Ahmet Banks MD RIGHT 4TH TOE OPEN AMPUTATION, REMOVAL SUTURE RIGHT INNER THIGH 02/06/2025 9:42 AM EDT Anesthesia Event [facility] [place] [address] [place] [phone] Ezekiel Hudson MD Kriz, Petra, MD 02/05/2025 2:26 PM EDT - 02/09/2025 5:33 PM EDT Hospital Encounter [facility] Medical Surgical Unit [address] [place] [phone] Ju Valdez MD Surendran, Anupama, MD Zipagan, James T, MD Gangrene of toe of right foot ([facility] V24, [facility] V28) (Primary Dx); Gangrene ([facility] V24, [facility] V28); Osteomyelitis of fourth toe of right foot ([facility] V24, [facility] V28); Ischemic leg Discharge Disposition: Home-Health Care [facility] 02/05/2025 1:15 PM EDT Office Visit V[facility] Surgery - [place] [address] [place] [phone] Ahmet Banks MD Critical limb ischemia of right lower extremity with ulceration of foot ([facility] V24, [facility] V28) (Primary Dx); PAD (peripheral artery disease) ([facility] V24); Infrarenal abdominal aortic aneurysm (AAA) without rupture ([facility] V24) 01/17/2025 11:00 AM EDT - 01/17/2025 3:30 PM EDT Surgery [facility] Main OR [address] [place] [phone] Ahmet Banks MD RIGHT FEMORAL DORSALIS PEDIS BYPASS WITH CRYOPRESERVED VEIN, RIGHT SUPERFICIAL FEMORAL ARTERY ENDARTERECTOMY WITH BIOLOGIC PATCH, REDO BYPASS [[id number] (CPT??)] 01/17/2025 10:52 AM EDT An[address] Event [facility] [place] [address] [place] [phone] Bharathi Maguire DO Hard, Shannon, CRNA 01/17/2025 9:25 AM EDT - 01/21/2025 10:04 AM EDT Hospital Encounter [facility] Intermediate Care Unit [address] [place] [phone] Ahmet Banks MD Levrault, Richard, DO Flores, Carlos M, MD Seralathan, Manikandan, MD Critical limb ischemia of right lower extremity (CMS/HCC V24, CMS/HCC V28) Discharge Disposition: Home-Health Care [facility] 01/15/2025 Telephone [facility] [place] [address] [place] [phone] Ahmet Banks MD Med Management 01/11/2025 Telephone [facility] [place] [address] [place] [phone] Ahmet Banks MD cardiac Clearance 01/11/2025 Telephone [facility] [address] [place] [phone] Marni Ferguson MD 01/09/2025 6:00 PM EDT - 01/09/2025 8:00 PM EDT Surgery [facility] Cardiac [employer] [address] [place] [phone] Ahmet Banks MD Angiography lower ext right 01/08/2025 7:30 AM EDT - 01/10/2025 1:15 PM EDT Hospital Encounter [facility] Medical Surgical Unit [address] [place] [phone] Ju Valdez MD Mohani, Priya, MD Critical limb ischemia of right lower extremity (CMS/HCC V24, CMS/HCC V28) (Primary Dx); Ulcer of toe of right foot, unspecified ulcer stage (CMS/HCC V24, CMS/HCC V28); Ischemic leg; Infrarenal abdominal aortic aneurysm (AAA) without rupture (CMS/HCC V24); Occlusion of arterial bypass graft, subsequent encounter Discharge Disposition: Home-Health Care [facility] 01/05/2025 11:45 AM EDT Office Visit Vascular Surgery [address] [place] [phone] Ahmet Banks MD Critical limb ischemia of right lower extremity with ulceration of foot (CMS/HCC V24, CMS/HCC V28) (Primary Dx) 12/22/2024 11:45 AM EDT Office Visit [facility] [place] [address] [place] [phone] Ahmet Banks MD Peripheral vascular disease ([facility] V24) (Primary Dx); PAD (peripheral artery disease) ([facility] V24); Acute deep vein thrombosis (DVT) of femoral vein of right lower extremity ([facility] V24, [facility] V28) 12/11/2024 Telephone [facility] [place] [address] [place] [phone] Ahmet Banks MD Provider Call Back 11/29/2024 10:30 AM EST Ancillary Procedure [facility] [address] [place] [phone] Acute deep vein thrombosis (DVT) of femoral vein of right lower extremity ([facility] V24, [facility] V28); Leg edema; Bilateral leg pain 11/24/2024 10:30 AM EST Ancillary Procedure [facility] [address] [place] [phone] Infrarenal abdominal aortic aneurysm (AAA) without rupture ([facility] V24); Occlusion of arterial bypass graft, subsequent encounter; Bilateral leg pain from Last 3 Months Immunizations Name Administration [...] Site/Laterality Comments KNEE ARTHROSCOPY 2009 Right PROCEDURE: PA ARTHROSCOPY KNEE DIAGNOSTIC W/WO SYNOVIAL BX SPX; COMMENT: Meniscus TURP / TRANSURETHRAL INCISIO N / DRAINAGE PROSTATE 2004 PROCEDURE: HISTORICAL TURP OTHER SURGICAL HISTORY PROCEDURE: PA DUP-SCAN LXTR ART/ARTL BPGS UNI/LMTD STUDY; COMMENT: Angioplasty and stenting of the left leg PACEMAKER IMPLANT PROCEDURE: HISTORICAL PACEMAKER COLONOSCOPY 2011 PROCEDURE: HISTORICAL COLONOSCOPY OTHER SURGICAL HISTORY PROCEDURE: PA BIOPSY OROPHARYNX; COMMENT: Throat cancer had radiation x6 weeks [facility] EYE SURGERY PROCEDURE: HISTORICAL EYE SURGERY; COMMENT: [place] TONSILLECTOMY PROCEDURE: HISTORICAL TONSILLECTOMY OTHER SURGICAL HISTORY PROCEDURE: ---- HEMORRHOIDS ---- HERNIA REPAIR Bilateral PROCEDURE: REPAIR INGUINAL HERNIA CORONARY ARTERY BYPASS GRAFT 1996 PROCEDURE: HISTORICAL CABG; COMMENT: x4 NECK SURGERY PROCEDURE: HISTORICAL NECK SURGERY CARPAL TUNNEL RELEASE Right PROCEDURE: PA NEUROPLASTY &/TRANSPOS MEDIAN NRV CARPAL TUNNE; COMMENT: dr. cazares BACK SURGERY 10/08/2022 Bilateral PROCEDURE: HISTORICAL BACK SURGERY; COMMENT: Bilateral L3, L4 and L5 radiofrequency neurotomy Dr. Sahu OTHER SURGICAL HISTORY 06/15/2023 PROCEDURE: PA SLCTV CATHJ 3RD+ ORD SLCTV ABDL PEL/LXTR BRNCH OTHER SURGICAL HISTORY 06/15/2023 PROCEDURE: PA SLCTV CATHJ EA 2ND+ ORD ABDL PEL/LXTR ART BRNCH OTHER SURGICAL HISTORY 06/15/2023 PROCEDURE: X-RAY EXAM OF ARM/LEG ARTERY OTHER SURGICAL HISTORY 06/15/2023 PROCEDURE: ULTRASOUND GUIDANCE FOR VASCULAR AC OTHER SURGICAL HISTORY 06/01/2024 PROCEDURE: PA EVASC RPR DPLMNT BAQZF-BX-LATRD NDGFT OTHER SURGICAL HISTORY 06/01/2024 PROCEDURE: PA OPN ILIAC ART EXPOS PROSTH/ILIAC OCCLS EVASC UNI OTHER SURGICAL HISTORY 06/01/2024 PROCEDURE: PA PERQ ACCESS & CLOSURE FEM ART FOR DELIVERY NDGFT OTHER SURGICAL HISTORY 06/01/2024 PROCEDURE: PA REVASC INTRAVASC LITHOTRIPSY OTHER SURGICAL HISTORY 06/28/2024 Left PROCEDURE: PA BYP OTH/THN VEIN FEM-ANT TIBL PST TIBL/PRONEAL Medical History Medical History Date Comments 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 Pacemaker 08/09/2020 DX:Pacemaker ST elevation myocardial infa rction (STEMI) ([facility] V24, [facility] V28) 08/09/2020 DX:ST elevation hesham cardial infarction (STEMI) ([facility]) Throat cancer ([facility] V24, [facility] V28) 08/09/2020 DX:Throat cancer (HCC); COMM ENT: 2020: received RT Hyperlipidemia 08/09/2020 DX:Hyperlipidemi a HTN (hypertension) 08/09/2020 DX:HTN (hyper tension) History of diverticulitis 08/09/2020 DX:His tory of diverticulitis Peripheral vascular disease ([facility] V24) 08/09/2020 DX:Peripheral vascular disea se ([facility]) Diabetic neuritis ([facility] V 24, [facility] V28) 08/09/2020 DX:Diabetic neuritis ([facility]) Gastroesophageal reflux dise ase without esophagitis 08/09/2020 DX:Gastroesophageal reflux d isease without esophagitis Anxiety 08/09/2020 DX:Anxiety Malignant neoplasm of right vocal cord ([facility] V24, [facility] V28) 11/06/2020 DX:Malignant neoplasm of ri ght vocal cord ([facility]) 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 Never true 02/07/2025 Within the past 12 months th e food we bought just didn't last and we didn't have money to get more. Never true 02/07/2025 Interpersonal Safety Answer Date Record ed Physical Abuse 02/05/2025 Verbal Abuse 02/05/2025 Sex and Gender Information Value Date Recorded Sex Assigned at Male 10/26/2024 4:21 PM EST Legal Sex Male 5:29 PM EST Gender Identity Male 10/26/2024 4:21 PM EST Sexual Orientation Straight 10/26/2024 4 :21 PM EST Obstetrics History Last Filed Vital Signs Vital Sign Reading Time Taken Comments Blood Pressure 139/72 02/09/2025 7:40 AM EDT Pulse 70 02/09/2025 7:40 AM EDT Temperature 36.2 ??C (97.2 ??F) 02/09/2025 7:40 AM ED T Respiratory Rate 20 02/09/2025 7:40 AM EDT Oxygen Saturation 95% 02/09/2025 7:40 AM EDT Inhaled Oxygen Concentration - - Weight 85.7 kg (189 lb) 02/05/2025 9:06 PM EDT Height 172.2 cm (5' 7.8 ) 02/05/2025 9:06 PM EDT Body Mass Index 28.91 02/05/2025 9:06 PM EDT Plan of Treatment Upcoming Encounters Date Type Department Care Team (Late st Contact Info) Description 02/27/2025 8:30 AM EDT Office Visit Vascular Surgery [facility] [address] [place] [phone] Andie Chua PA [address] [place] [address] 05/24/2025 11:00 AM EDT Ancillary Procedure [facility] - [address] [place] [address] 05/24/2025 12:00 PM EDT Ancillary Procedure [facility] - [address] [place] [phone] 06/25/2025 11:00 AM EDT Office Visit Vascular Surgery [facility] [address] [place] [phone] Ahmet Banks MD [address] [place] [address] Health Maintenance Due Date Last Done Comments Diabetes: Annual Retina Eye Exam 1950 Depression Screening 09/12/2022 COVID-19 Vaccine ( season) 2024 07/10/2022, 05/20/2021, 12/02/2020, Additional history exists Diabetes: Annual Foot Exam 09/07/2024 09/07/2023 Diabetes: Annual Urine Albumin-Creatinine Ratio (uACR) 09/08/2024 09/08/2023 Diabetes: Blood Sugar Control Test (HGBA1C) 09/21/2024 03/22/2024, 03/22/2024 Medicare Annual Wellness Visit 02/16/2025 02/17/2024 Social Influencers of Health Screening 02/07/2026 02/07/2025 Diabetes: Annual GFR (Glomerular Filtration Rate) 02/09/2026 02/09/2025, 02/08/2025, 02/07/2025, Additional history exists Falls Risk Assessment 02/09/2026 02/09/2025 Hypertension/CHF/CAD Annual BMP Blood Test 02/09/2026 02/09/2025, 02/08/2025, 02/07/2025, Additional history exists Cholesterol Screening (Lipid Panel) 09/08/2028 09/08/2023 DTaP,Tdap,and Td Vaccines (4 - Td or Tdap) 05/15/2031 05/15/2021, 08/12/2013, 04/12/2001 Zoster Vaccines Completed 08/03/2018, 01/29/2018 Pneumococcal Vaccine: 50+ Years Completed 02/09/2023, 07/04/2019, 01/29/2018, Additional history exists RSV Immunization Adult Patients Completed 09/28/2023 Influenza Vaccine Completed 07/21/2024, , [...] age to complete this topic Meningococcal B Vaccine Aged Out No l onger eligible based on patient's age to complete this topic RSV Immunization Patients Under 20 months Aged Out No longer eligible based on patient's age to complete this topic Varicella Vaccines Aged Out No longer eligible based on patient's age to complete this topic Medical Devices Implanted Type Area Outbound Sales Advisor Device Identifier Shelf Expiration Date Model / Serial / Lot Medt-Card [place] Xt Mri [id number] Implanted: (Quantity not on file) Cardiac Pacemaker [employer] - CARDIAC RHYTH-CRDM KENDELL XT DR LAMA [id number] / [id number] / Hemostat Absorb Surgicel 2x4in Fibrillar - Sn/A - [id number] Implanted:Qty : 1 on 01/17/2025 by Ahmet Banks MD at [facility] Hemostasis Right: Leg [employer] 07/03/20271961 / N/A / [id number] Sealant Fibrin Vistaseal 4ml - [id number] - [id number] Implanted:Qty : 1 on 01/17/2025 by Ahmet Banks MD at [facility] Hemostasis Right: Leg [employer] [id number] 07/18/2026 [id number] / [id number] / [id number] Hemostat Absorb 1x2 Surgicel Fibrillar - Sn/A - [id number] Implanted:Qty : 1 on 02/07/2025 by Ahmet Banks MD at [facility] Hemostasis Right: Foot [employer] 07/03/20261960 / N/A / [id number] Vein Saphns 50-59cm A B Ab O Blood Type - [id number] - [id number] Implanted:Qty : 1 on 01/17/2025 by Ahmet Banks MD at [facility] [employer] Right: Leg [employer] 04/05/2029 [id number] / [id number] / [id number] Patch Biol Xenosure .8x8cm - Sn/A - [id number] Implanted:Qty : 1 on 01/17/2025 by Ahmet Banks MD at [facility] Vascular Grafts Right: Leg [employer] 12/29/2029 E0.8P8 / N/A / [id number] Procedures Procedure Name Priority Date/Time Associated Diagnosis Comments CBC WITH AUTO DIFFERENTIAL Routine 02/09/2025 6:20 AM EDT CBC AND DIFFERENTIAL Routine 02/09/2025 6:20 AM EDT BASIC METABOLIC PANEL Routine 02/09/2025 6:20 AM EDT POCT GLUCOSE BLOOD Routine 02/08/2025 7: 48 PM EDT POCT GLUCOSE BLOOD Routine 02/08/2025 3: 59 PM EDT VANCOMYCIN, TROUGH Timed 02/08/2025 1: 11 PM EDT POCT GLUCOSE BLOOD Routine 02/08/2025 11 :17 AM EDT POCT GLUCOSE BLOOD Routine 02/08/2025 8 :03 AM EDT CBC WITH AUTO DIFFERENTIAL Routine 02/08/2025 6:42 AM EDT CBC AND DIFFERENTIAL Routine 02/08/2025 6:42 AM EDT BASIC METABOLIC PANEL Routine 02/08/2025 6:41 AM EDT POCT GLUCOSE BLOOD Routine 02/07/2025 8: 28 PM EDT POCT GLUCOSE BLOOD Routine 02/07/2025 4: 19 PM EDT XR FOOT 2 VIEWS RIGHT STAT 02/07/2025 2:49 PM EDT TISSUE EXAM Routine 02/07/2025 1:49 PM EDT Osteomyelitis of fourth toe of right foot (CMS/HCC V24, CMS/HCC V28) CULTURE BONE Routine 02/07/2025 1:48 PM EDT Osteomyelitis of fourth toe of right foot (CMS/HCC V24, CMS/HCC V28) CULTURE TISSUE WITH GRAM STAIN Routine 02/07/2025 1:48 PM EDT Osteomyelitis of fourth toe of right foot (CMS/HCC V24, CMS/HCC V28) TH AN LMA(NO CHARGE) Routine 02/07/2025 1:32 PM EDT INCISION DRAINAGE EXTREMITY LOWER 02/07/2025 1:25 PM EDT Osteomyelitis of fourth toe of right foot (CMS/HCC V24, CMS/HCC V28) POCT GLUCOSE BLOOD Routine 02/07/2025 11 :14 AM EDT ECG 12-LEAD Routine 02/07/2025 10:23 AM EDT POCT GLUCOSE BLOOD Routine 02/07/2025 8: 06 AM EDT CBC WITH AUTO DIFFERENTIAL Routine 02/07/2025 5:52 AM EDT BASIC METABOLIC PANEL Routine 02/07/2025 5:52 AM EDT CBC AND DIFFERENTIAL Routine 02/07/2025 5:52 AM EDT POCT GLUCOSE BLOOD Routine 02/06/2025 8: 03 PM EDT POCT GLUCOSE BLOOD Routine 02/06/2025 4: 13 PM EDT POCT GLUCOSE BLOOD Routine 02/06/2025 12 :27 PM EDT OXYGEN THERAPY, ADULT Routine 02/06/2025 10:51 AM EDT OXYGEN THERAPY, ADULT Routine 02/06/2025 10:51 AM EDT TISSUE EXAM Routine 02/06/2025 10:16 AM EDT [place] (CMS/[facility] V24, CMS/[facility] V28) TH AN LMA(NO CHARGE) Routine 02/06/2025 10:02 AM EDT AMPUTATION TOE 02/06/2025 9:38 AM EDT [place] (CMS/[facility] V24, CMS/[facility] V28) POCT GLUCOSE BLOOD Routine 02/06/2025 8: 20 AM EDT COMPLETE BLOOD COUNT Routine 02/06/2025 6:00 AM EDT BASIC METABOLIC PANEL Routine 02/06/2025 6:00 AM EDT POCT GLUCOSE BLOOD Routine 02/05/2025 9: 09 PM EDT CULTURE BLOOD STAT 02/05/2025 4:44 PM EDT BASIC METABOLIC PANEL STAT 02/05/2025 4:34 PM EDT LACTATE, WITH REFLEX STAT 02/05/2025 2:48 PM EDT CBC WITH AUTO DIFFERENTIAL STAT 02/05/2025 2:48 PM EDT CBC AND DIFFERENTIAL STAT 02/05/2025 2:48 PM EDT CULTURE BLOOD STAT 02/05/2025 2:48 PM EDT CBC WITH AUTO DIFFERENTIAL Routine 01/21/2025 8:01 AM EDT BASIC METABOLIC PANEL Routine 01/21/2025 8:01 AM EDT CBC AND DIFFERENTIAL Routine 01/21/2025 8:01 AM EDT POCT GLUCOSE BLOOD Routine 01/21/2025 7: 56 AM EDT POCT GLUCOSE BLOOD Routine 01/20/2025 8: 02 PM EDT POCT GLUCOSE BLOOD Routine 01/20/2025 4: 56 PM EDT POCT GLUCOSE BLOOD Routine 01/20/2025 11 :31 AM EDT POCT GLUCOSE BLOOD Routine 01/20/2025 7: 58 AM EDT POCT GLUCOSE BLOOD Routine 01/19/2025 8: 02 PM EDT POCT GLUCOSE BLOOD Routine 01/19/2025 4: 03 PM EDT POCT GLUCOSE BLOOD Routine 01/19/2025 7: 37 AM EDT CBC WITH AUTO DIFFERENTIAL Routine 01/19/2025 6:00 AM EDT CBC AND DIFFERENTIAL Routine 01/19/2025 6:00 AM EDT PHOSPHORUS Routine 01/19/2025 6:00 AM EDT MAGNESIUM Routine 01/19/2025 6:00 AM EDT CALCIUM, IONIZED Routine 01/19/2025 6:00 AM EDT BASIC METABOLIC PANEL Routine 01/19/2025 6:00 AM EDT POCT GLUCOSE BLOOD Routine 01/18/2025 8: 07 PM EDT POCT GLUCOSE BLOOD Routine 01/18/2025 4: 29 PM EDT POCT GLUCOSE BLOOD Routine 01/18/2025 12 :17 PM EDT ROUTINE EEG Routine 01/18/2025 10:16 AM EDT POCT GLUCOSE BLOOD Routine 01/18/2025 6: 19 AM EDT PHOSPHORUS Routine 01/18/2025 4:33 AM EDT MAGNESIUM Routine 01/18/2025 4:33 AM EDT ACTIVATED PARTIAL THROMBOPLASTIN TIME Routine 01/18/2025 4:33 AM EDT PROTHROMBIN TIME WITH INR Routine 01/18/2025 4:33 AM EDT BASIC METABOLIC PANEL Routine 01/18/2025 4:33 AM EDT COMPLETE BLOOD COUNT Routine 01/18/2025 4:33 AM EDT POCT GLUCOSE BLOOD Routine 01/17/2025 9: 43 PM EDT POCT GLUCOSE BLOOD Routine 01/17/2025 6: 38 PM EDT TROPONIN I HIGH SENSITIVITY Routine 01/17/2025 5:[address] ANGIO HEAD/NECK STROKE WO AND/OR W CONTRAST STAT 01/17/2025 5:[address] HEAD STROKE WO CONTRAST STAT 01/17/2025 5:22 PM EDT ARTERIAL BLOOD GAS STAT 01/17/2025 4: 55 PM EDT ECG 12-LEAD STAT 01/17/2025 3:50 PM EDT CREATINE KINASE AND CKMB Add-On 01/17/2025 3:31 PM EDT CBC WITH AUTO DIFFERENTIAL STAT 01/17/2025 3:31 PM EDT CALCIUM, IONIZED STAT 01/17/2025 3:31 PM EDT PHOSPHORUS STAT 01/17/2025 3:31 PM EDT MAGNESIUM STAT 01/17/2025 3:31 PM EDT BASIC METABOLIC PANEL STAT 01/17/2025 3:31 PM EDT CBC AND DIFFERENTIAL STAT 01/17/2025 3:31 PM EDT TROPONIN I HIGH SENSITIVITY STAT 01/17/2025 3:31 PM EDT OXYGEN THERAPY, ADULT Routine 01/17/2025 3:13 PM EDT POCT ACTIVATED CLOTTING TIME, KAOLIN Routine 01/17/2025 2:34 PM EDT POCT ACTIVATED CLOTTING TIME, KAOLIN Routine 01/17/2025 2:16 PM EDT POCT ARTERIAL BASIC METABOLIC PROFILE, HH Routine 01/17/2025 1:44 PM EDT POCT ACTIVATED CLOTTING TIME, KAOLIN Routine 01/17/2025 1:37 PM EDT TISSUE EXAM Routine 01/17/2025 1:31 PM EDT Critical limb ischemia of right lower extremity (CMS/HCC V24, CMS/HCC V28) POCT ACTIVATED CLOTTING TIME, KAOLIN Routine 01/17/2025 1:26 PM EDT POCT ACTIVATED CLOTTING TIME, KAOLIN Routine 01/17/2025 12:55 PM EDT POCT ACTIVATED CLOTTING TIME, KAOLIN Routine 01/17/2025 12:43 PM EDT POCT ACTIVATED CLOTTING TIME, KAOLIN Routine 01/17/2025 11:36 AM EDT TH AN ENDOTRACHEAL(NO CHARGE) Routine 01/17/2025 11:27 AM EDT TH AN ARTERIAL LINE (CHARGE) Routine 01/17/2025 11:24 AM EDT PA BYPASS GRAFT W OTHER THAN VEIN FEMORAL-ANT/POST TIBIAL/PERONEAL ARTERY 01/17/2025 10:50 AM EDT Critical limb ischemia of right lower extremity (CMS/HCC V24, CMS/HCC V28) Case Notes 6 mm x 50 cm cryo vein needed for this case, boby oh is aware, 23-HR BED PREPARE RBC STAT 01/17/2025 10:40 AM EDT POCT GLUCOSE BLOOD Routine 01/17/2025 9: 56 AM EDT PROCEDURAL ECG Routine 01/11/2025 11:41 AM EDT Critical limb ischemia of right lower extremity (CMS/HCC V24, CMS/HCC V28) CBC WITH AUTO DIFFERENTIAL Routine 01/11/2025 11:27 AM EDT Critical limb ischemia of right lower extremity (CMS/HCC V24, CMS/HCC V28) BASIC METABOLIC PANEL Routine 01/11/2025 11:27 AM EDT Critical limb ischemia of right lower extremity (CMS/HCC V24, CMS/HCC V28) CBC AND DIFFERENTIAL Routine 01/11/2025 11:27 AM EDT Critical limb ischemia of right lower extremity (CMS/HCC V24, CMS/HCC V28) MAGNESIUM Routine 01/11/2025 11:27 AM EDT Critical limb ischemia of right lower extremity (CMS/HCC V24, CMS/HCC V28) PROTHROMBIN TIME WITH INR Routine 01/11/2025 11:27 AM EDT Critical limb ischemia of right lower extremity (CMS/HCC V24, CMS/HCC V28) TYPE AND SCREEN Routine 01/11/2025 11:27 AM EDT Critical limb ischemia of right lower extremity (CMS/HCC V24, CMS/HCC V28) POCT GLUCOSE BLOOD Routine 01/10/2025 11 :02 AM EDT POCT GLUCOSE BLOOD Routine 01/10/2025 7: 53 AM EDT CBC WITH AUTO DIFFERENTIAL Routine 01/10/2025 6:51 AM EDT CBC AND DIFFERENTIAL Routine 01/10/2025 6:51 AM EDT BASIC METABOLIC PANEL Routine 01/10/2025 6:51 AM EDT POCT GLUCOSE BLOOD Routine 01/09/2025 8: 08 PM EDT INVASIVE VASCULAR PROCEDURE Routine 01/09/2025 5:16 PM EDT Critical limb ischemia of right lower extremity ([facility] V24, [facility] V28) POCT GLUCOSE BLOOD Routine 01/09/2025 4: 00 PM EDT POCT GLUCOSE BLOOD Routine 01/09/2025 11 :17 AM EDT HEPARIN ANTI XA STAT 01/09/2025 10:23 AM EDT POCT GLUCOSE BLOOD Routine 01/09/2025 7: 49 AM EDT COMPLETE BLOOD COUNT Routine 01/09/2025 4:06 AM EDT BASIC METABOLIC PANEL Routine 01/09/2025 4:06 AM EDT HEPARIN ANTI XA STAT 01/09/2025 4:06 AM EDT HEPARIN ANTI XA Routine 01/08/2025 10:08 PM EDT POCT GLUCOSE BLOOD Routine 01/08/2025 7: 23 PM EDT HEPARIN ANTI XA STAT 01/08/2025 7:12 PM EDT HEPARIN ANTI XA STAT 01/08/2025 4:33 PM EDT POCT GLUCOSE BLOOD Routine 01/08/2025 4: 10 PM EDT POCT GLUCOSE BLOOD Routine 01/08/2025 12 :38 PM EDT HEPARIN ANTI XA STAT Add-on 01/08/2025 8:32 AM EDT CBC WITH AUTO DIFFERENTIAL STAT 01/08/2025 8:32 AM EDT ACTIVATED PARTIAL THROMBOPLASTIN TIME STAT 01/08/2025 8:32 AM EDT PROTHROMBIN TIME WITH INR STAT 01/08/2025 8:32 AM EDT COMPREHENSIVE METABOLIC PANEL STAT 01/08/2025 8:32 AM EDT CBC AND DIFFERENTIAL STAT 01/08/2025 8:32 AM EDT VAS US DUPLEX LOWER EXT VENOUS BILAT Routine 11/29/2024 11:49 AM EST Acute deep vein thrombosis (DVT) of femoral vein of right lower extremity (CMS/HCC V24, CMS/HCC V28) Leg edema Bilateral leg pain VAS US DUPLEX LOWER EXT ARTERIES BILAT WITH FATMATA Routine 11/24/2024 11:06 AM EST Infrarenal abdominal aortic aneurysm (AAA) without rupture (CMS/HCC V24) Occlusion of arterial bypass graft, subsequent encounter Bilateral leg pain HEMOGLOBIN A1C Routine 03/22/2024 URINE ALBUMIN CREATININE RATIO Routine 09/08/2023 LIPID PANEL Routine 09/08/2023 DIABETES FOOT EXAM Routine 09/07/2023 from Last 3 Months or Most Recently Relevant to Health Maintenance Results * (ABNORMAL) CBC auto differential (02/09/2025 6:20 AM EDT) Only the most recent of10 resultswithin the time period is included. WBC 6.3 4.8 - 10.8 K/mcL LAB HEMETOLOGY METHOD 02/09/2025 7:14 AM [facility] RBC 2.40(L) 4.50 - 5.50 M/mcL LAB HEMETOLOGY METHOD 02/09/2025 7:14 AM [facility] Hemoglobin 8.3(L) 13.5 - 17.5 g/dL LAB HEMETOLOGY METHOD 02/09/2025 7:14 AM [facility] Hematocrit 25.5(L) 42.0 - 54.0 % LAB HEMETOLOGY METHOD 02/09/2025 7:14 AM [facility] MCV 108.1(H) 79.0 - 98.0 FL LAB HEMETOLOGY METHOD 02/09/2025 7:14 AM [facility] MCH 35.2(H) 27.0 - 32.0 pcg LAB HEMETOLOGY METHOD 02/09/2025 7:14 AM [facility] MCHC 32.5 32.0 - 37.0 g/dL LAB HEMETOLOGY METHOD 02/09/2025 7:14 AM [facility] RDW 16.8(H) 11.0 - 15.0 % LAB HEMETOLOGY METHOD 02/09/2025 7:14 AM [facility] Platelets 206 130 - 400 K/mcL LAB HEMETOLOGY METHOD 02/09/2025 7:14 AM [facility] MPV 9.7 7.0 - 11.0 FL LAB HEMETOLOGY METHOD 02/09/2025 7:14 AM [facility] NRBC 0.0 <1.0 % LAB HEMETOLOGY METHOD 02/09/2025 7:14 AM [facility] NRBC Absolute 0.00 <0.10 K/mcL LAB HEMETOLOGY METHOD 02/09/2025 7:14 AM [facility] Neutrophils Relative 57.5 % LAB HEMETOLOGY METHOD 02/09/2025 7:14 AM [facility] Lymphocytes Relative 19.7 % LAB HEMETOLOGY METHOD 02/09/2025 7:14 AM [facility] Monocytes Relative 13.9 % LAB HEMETOLOGY METHOD 02/09/2025 7:14 AM [facility] Eosinophils Relative 7.6 % LAB HEMETOLOGY METHOD 02/09/2025 7:14 AM [facility] Basophils Relative 1.0 % LAB HEMETOLOGY METHOD 02/09/2025 7:14 AM [facility] Immature Granulocytes Relative 0.3 % LAB HEMETOLOGY METHOD 02/09/2025 7:14 AM [facility] Neutrophils Absolute 3.63 1.50 - 7.00 K/mcL LAB HEMETOLOGY METHOD 02/09/2025 7:14 AM [facility] Lymphocytes Absolute 1.24 1.00 - 5.00 K/mcL LAB HEMETOLOGY METHOD 02/09/2025 7:14 AM [facility] Monocytes Absolute 0.88 0.20 - 1.00 K/mcL LAB HEMETOLOGY METHOD 02/09/2025 7:14 AM [facility] Eosinophils Absolute 0.48 0.00 - 0.50 K/mcL LAB HEMETOLOGY METHOD 02/09/2025 7:14 AM [facility] Basophils Absolute 0.06 0.00 - 0.20 K/mcL LAB HEMETOLOGY METHOD 02/09/2025 7:14 AM [facility] Immature Granulocytes Absolute 0.02 0.00 - 0.03 K/mcL LAB HEMETOLOGY METHOD 02/09/2025 7:14 AM [facility] Blood Venous blood specimen / Unknown Venipuncture / Unknown 02/09/2025 6:20 AM EDT 02/09/2025 6:58 AM EDT us Ulisses Shook MD LAB BLOOD ORDERABLES Final Re sult [facility] [address] [place] [address], [place] [phone] * (ABNORMAL) Basic metabolic panel (02/09/2025 6:20 AM EDT) Only the most recent of12 resultswithin the time period is included. Sodium 139 133 - 145 mmol/L LAB CHEMISTRY METHOD 02/09/2025 7:41 AM [facility] Potassium 3.8 3.5 - 5.5 mmol/L LAB CHEMISTRY METHOD 02/09/2025 7:41 AM [facility] Chloride 109 96 - 110 mmol/L LAB CHEMISTRY METHOD 02/09/2025 7:41 AM [facility] CO2 23 21 - 32 mmol/L LAB CHEMISTRY METHOD 02/09/2025 7:41 AM [facility] Anion Gap 7 3 - 11 LAB CHEMISTRY METHOD 02/09/2025 7:41 AM [facility] Glucose 106(H) 70 - 100 mg/dL LAB CHEMISTRY METHOD 02/09/2025 7:41 AM [facility] BUN 25 5 - 25 mg/dL LAB CHEMISTRY METHOD 02/09/2025 7:41 AM [facility] Creatinine 1.80(H) 0.70 - 1.30 mg/dL LAB CHEMISTRY METHOD 02/09/2025 7:41 AM [facility] eGFR 36(L) >=60 mL/min/1. 73m2 LAB CHEMISTRY METHOD 02/09/2025 7:41 AM EDT [facility] Comment:Calculation based on the Chronic Kidney Disease Epidemiology Collaboration (CKD-EPI) equation refit without adjustment for race. BUN/Creatinine Ratio 13.9 LAB CHEMISTRY METHOD 02/09/2025 7:41 AM EDT [facility] Calcium 8.6 8.5 - 10.5 mg/dL LAB CHEMISTRY METHOD 02/09/2025 7:41 AM EDT [facility] Blood Venous blood specimen / Unknown Venipuncture / Unknown 02/09/2025 6:20 AM EDT 02/09/2025 6:57 AM EDT us Ulisses Shook MD LAB BLOOD ORDERABLES Final Re sult Performing Organization Address [facility]/ZIP Co de Phone Number [facility] [address] [place] [address], [place] [phone] * (ABNORMAL) POCT Glucose, blood (02/08/2025 7:48 PM EDT) Only the most recent of37 resultswithin the time period is included. [facility] Glucose POCT 150(H) 70 - 100 mg/dL 02/08/2025 7:48 PM EDT [facility] Blood Capillary blood specimen / Unknown 02/08/2025 7:48 PM EDT 02/08/2025 7:49 PM EDT us Ulisses Shook MD LAB POINT OF CARE TE ST DOCKED DEVICE UNSOLICITED RESULTS Final Result Performing Organization Address [facility]/ZIP Co de Phone Number [facility] [address] [place] [address], [place] [phone] * Vancomycin, trough Please draw level 1 hour prior to vancomycin administration (02/08/2025 1:11 PM EDT) Vancomycin Trough 11.5 10.0 - 20.0 mcg/mL LAB CHEMISTRY METHOD 02/08/2025 2:11 PM EDT [facility] Blood Venous blood specimen / Unknown Venipuncture / Unknown 02/08/2025 1:11 PM EDT 02/08/2025 1:21 PM EDT us Andie CHACON LAB BLOOD ORDERABLES Final Res ult [facility] [address] [place] [address], [place] [phone] * XR Foot 2 Views Right (02/07/2025 2:49 PM EDT) Anatomical Region Laterality Modality Lower Extremities, Foot Right Radiogra phic Imaging 02/07/2025 3:11 PM EDT Impressions 02/07/2025 3:11 PM EDT FINDINGS/IMPRESSION: 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 ??Expected postsurgical changes in the soft tissues. ??Degenerative changes and osteopenia. ??Prominent plantar calcaneal spur. ??Vascular calcifications and surgical clips at the ankle. -------- FINAL REPORT -------- Dictated By: Sravani Pederson Dictated Date: 02/07/2025 15:11 ET Assigned Physician: Sravani Pederson Reviewed and Electronically Signed By: Sravani Pederson Signed Date: 02/07/2025 15:11 ET Workstation ID: [id number] Transcribed By: Self Edit Transcribed Date: 02/07/2025 15:11 ET Narrative 02/07/2025 3:11 PM EDT XR FOOT 2 VIEWS RIGHT INDICATION: post-op evaluation s/p right fourth toe amputation TECHNIQUE: XR FOOT 2 VIEWS RIGHT COMPARISON: No priors available. Procedure Note Sravani Pederson MD - 02/07/2025 XR FOOT 2 VIEWS RIGHT INDICATION: post-op evaluation s/p right fourth toe amputation TECHNIQUE: XR FOOT 2 VIEWS RIGHT COMPARISON: No priors available. IMPRESSION: FINDINGS/IMPRESSION: Postoperative radiograph status post right 4th toeamputation. Expected postsurgical changes in the soft tissues.Degenerative changes and osteopenia. Prominent plantar calcaneal spur.Vascular calcifications and surgical clips at the ankle. -------- FINAL REPORT -------- Dictated By: Sravani Pederson Dictated Date: 02/07/2025 15:11 ET Assigned Physician: Sravani Pederson Reviewed and Electronically Signed By: Sravani Pederson Signed Date: 02/07/2025 15:11 ET Workstation ID: [id number] Transcribed By: Self Edit Transcribed Date: 02/07/2025 15:11 ET us Andie CHACON IMG XR PROCEDURES Final Result * Tissue exam (02/07/2025 1:49 PM EDT) Only the most recent of3 resultswithin the time period is included. Final Diagnosis Right 4th metatarsal bone margin: -VIABLE APPEARING BONE 02/09/2025 11:57 AM EDT [facility] Gross Description A. Foot, Right, Right 4th metatarsal bone margin: Labeled right fourth foot R and additionally bone margin on the side of the container . Received in formalin is an irregular, 1.1 cm in greatest diameter portion of yellow to red indurated bone which is inked black at the margin and sectioned to show indurated bone. The specimen is submitted in entirety in one cassette, three pieces, following decalcification . TS 02/09/2025 11:57 AM EDT [facility] Disclaimer Unless otherwise specified, all tissue is 10% NB formalin fixed and paraffin embedded. 02/09/2025 11:57 AM EDT [facility] Bone Structure of right foot / Unknown 02/07/2025 1:49 PM EDT 02/07/2025 3:37 PM EDT us Ahmet Banks MD LAB PATHOLOGY ORDERABLES Final Result [facility] [address] [place] [address], [place] [phone] * Culture tissue with gram stain (02/07/2025 1:48 PM EDT) Culture, Tissue No growth aerobically and anaerobically at 5 days. 02/12/2025 9:14 AM EDT [facility] Gram Stain Result No polymorphonuclear leukocytes, No epithelial cells, and No organisms noted 02/12/2025 9:14 AM EDT [facility] Tissue Structure of right foot / Unknown 02/07/2025 1:48 PM EDT 02/07/2025 2:27 PM EDT us Ahmet Banks MD LAB MICROBIOLOGY - GENERAL ORDE RABUSMAN Final Result Performing Organization Address City/[facility]/ZIP Co de Phone Number [facility] [address] [place] [address], [place] [phone] * Culture bone (02/07/2025 1:48 PM EDT) Culture, Bone No growth aerobically and anaerobically at 5 days. 02/12/2025 9:15 AM EDT [facility] Gram Stain Result Rare Polymorphonuclear leukocytes 02/12/2025 9:15 AM EDT [facility] Gram Stain Result No Epithelial cells 02/12/2025 9:15 AM EDT [facility] Gram Stain Result No organisms seen 02/12/2025 9:15 AM EDT [facility] Bone Structure of right foot / Unknown 02/07/2025 1:48 PM EDT 02/07/2025 2:28 PM EDT us Ahmet Banks MD LAB MICROBIOLOGY - GENERAL ORDE RABUSMAN Final Result Performing Organization Address City/[facility]/ZIP Co de Phone Number [facility] [address] [place] [address], [place] [phone] * TH AN LMA(NO CHARGE) (02/07/2025 1:32 PM EDT) Narrative Lainey Peterson CRNA - 02/07/2025 1:32 PM EDT Lainey Peterson CRNA ? 02/07/2025 ??1:33 PM General Information and Staff Patient location during procedure: OR Performed by: Lainey Peterson CRNA Authorized by: Orlando Umaña MD ?? Intubation Airway not difficult Urgency: elective Final Airway Details Number of attempts at approach: 1 Ventilation between attempts: none Number of other approaches attempted: 0 LMA Size: 4 LMA Type: Classic LMA Seal Pressure: Final airway type: LMA Indications and Patient Condition Indications for airway management: anesthesia Spontaneous ventilation: present Sedation level: Yes Preoxygenated: yes Soft Tissue Damage: No Dentition Unchanged: Yes Patient position: neutral MILS maintained throughout Start Time: 02/07/2025 1:29 PM us Orlando Umaña MD ANESTHESIA ORDERABLES Final Re sult * ECG 12 lead (02/07/2025 10:23 AM EDT) Only the most recent of2 resultswithin the time period is included. Ventricular Rate ECG 70 BPM GEMUSE Atrial Rate 70 BPM GEMUSE P-R Interval 282 ms GEMUSE QRS Duration 120 ms GEMUSE Q-T Interval 418 ms GEMUSE QTc 451 ms GEMUSE P Wave [place] -20 degrees GEMUSE R [place] -56 degrees GEMUSE T [place] 72 degrees GEMUSE ECG Interpretation AV dual-paced rhythm with prolonged AV conduction Abnormal ECG When compared with ECG of 17-JAN-2025 15:50, No significant change was found Confirmed by Brandon QUINONEZ JOHN ([id number]) on 02/08/2025 11:28:46 AM GEMUSE 02/07/2025 10:2 3 AM EDT 02/08/2025 11:28 AM EDT us Ulisses Shook MD ECG ORDERABLES Final Result GEMUSE * TH AN LMA(NO CHARGE) (02/06/2025 10:02 AM EDT) Monae Mccormick MD - 02/06/2025 10:02 AM EDT LISA Meyers ? 02/06/2025 10:08 AM General Information and Staff Patient location during procedure: OR Anesthesiologist: Monae Borges MD Resident/KEY RINGER: Romi Price CRNA Other anesthesia staff: LISA Meyers Performed: other anesthesia staff Performed by: LISA Meyers Authorized by: Ezekiel Hudson MD ?? Intubation Urgency: elective Final Airway Details Number of attempts at approach: 2 Ventilation between attempts: none LMA Size: 4 LMA Type: Classic LMA Seal Pressure: Final airway type: LMA Indications and Patient Condition Indications for airway management: anesthesia and airway protection Spontaneous ventilation: present Sedation level: Yes Preoxygenated: yes Soft Tissue Damage: No Dentition Unchanged: Yes Patient position: neutral MILS maintained throughout Mask difficulty assessment: 0 - not attempted us Ezekiel Hudson MD ANESTHESIA ORDERABLES Edited R esult - Final * (ABNORMAL) Complete blood count (02/06/2025 6:00 AM EDT) Only the most recent of3 resultswithin the time period is included. WBC 8.3 4.8 - 10.8 K/mcL LAB HEMETOLOGY METHOD 02/06/2025 6:55 AM [facility] RBC 2.60(L) 4.50 - 5.50 M/mcL LAB HEMETOLOGY METHOD [facility] Hemoglobin 8.9(L) 13.5 - 17.5 g/dL LAB HEMETOLOGY METHOD 02/06/2025 6:55 AM [facility] Hematocrit 28.3(L) 42.0 - 54.0 % LAB HEMETOLOGY METHOD 02/06/2025 6:55 AM [facility] MCV 108.0(H) 79.0 - 98.0 FL LAB HEMETOLOGY METHOD 02/06/2025 6:55 AM EDT [facility] MCH 34.0(H) 27.0 - 32.0 pcg LAB HEMETOLOGY METHOD 02/06/2025 6:55 AM EDT [facility] MCHC 31.4(L) 32.0 - 37.0 g/dL LAB HEMETOLOGY METHOD 02/06/2025 6:55 AM EDT [facility] RDW 17.4(H) 11.0 - 15.0 % LAB HEMETOLOGY METHOD 02/06/2025 6:55 AM EDT [facility] Platelets 252 130 - 400 K/mcL LAB HEMETOLOGY METHOD 02/06/2025 6:55 AM EDT [facility] MPV 9.6 7.0 - 11.0 FL LAB HEMETOLOGY METHOD 02/06/2025 6:55 AM EDT [facility] NRBC 0.0 <1.0 % LAB HEMETOLOGY METHOD 02/06/2025 6:55 AM EDT [facility] NRBC Absolute 0.00 <0.10 K/mcL LAB HEMETOLOGY METHOD 02/06/2025 6:55 AM EDT [facility] Blood Venous blood specimen / Unknown Venipuncture / Unknown 02/06/2025 6:00 AM EDT 02/06/2025 6:23 AM EDT us Ju Valdez MD LAB BLOOD ORDERABLES Final Res ult [facility] [address] [place] [address], * Culture blood (02/05/2025 4:44 PM EDT) Only the most recent of2 resultswithin the time period is included. Culture, Blood No growth at 5 days 02/10/2025 5:01 PM EDT [facility] Blood Venous blood specimen / Unknown Venipuncture / Unknown 02/05/2025 4:44 PM EDT 02/05/2025 4:53 PM EDT us Anika CHACON LAB MICROBIOLOGY - GENERAL OR DERABLES Final Result Performing Organization Address City/[facility]/ZIP Co de Phone Number [facility] [address] [place] [address], [place] [phone] * Lactate, with reflex (02/05/2025 2:48 PM EDT) LACTIC ACID 1.5 0.4 - 2.0 mmol/L LAB CHEMISTRY METHOD 02/05/2025 3:35 PM EDT [facility] Blood Venous blood specimen / Unknown Venipuncture / Unknown 02/05/2025 2:48 PM EDT 02/05/2025 3:04 PM EDT Anika CHACON LAB BLOOD ORDERABLES Final Re sult Performing Organization Address [facility] Co de Phone Number [facility] [address] [place] [address], [place] [phone] * (ABNORMAL) Phosphorus (01/19/2025 6:00 AM EDT) Only the most recent of3 resultswithin the time period is included. Phosphorus 2.4(L) 2.5 - 4.5 mg/dL LAB CHEMISTRY METHOD 01/19/2025 7:29 AM EDT [facility] Blood Venous blood specimen / Unknown Venipuncture / Unknown 01/19/2025 6:00 AM EDT 01/19/2025 6:20 AM EDT us Taj Huynh DO LAB BLOOD ORDERABLES Final R esult Performing Organization Address City/[facility]/ZIP Co de Phone Number [facility] [address] [place] [address], [place] [phone] * Magnesium (01/19/2025 6:00 AM EDT) Only the most recent of4 resultswithin the time period is included. Magnesium 2.4 1.9 - 2.6 mg/dL LAB CHEMISTRY METHOD 01/19/2025 7:29 AM EDT [facility] Blood Venous blood specimen / Unknown Venipuncture / Unknown 01/19/2025 6:00 AM EDT 01/19/2025 6:20 AM EDT Taj Huynh LAB BLOOD ORDERABLES Final R [facility] Performing Organization Address [facility]/ZIP Co de Phone Number [facility] [address] [place] [address], [place] [phone] * Calcium, ionized (01/19/2025 6:00 AM EDT) Only the most recent of2 resultswithin the time period is included. Calcium Ionized 4.82 4.50 - 5.30 mg/dL 01/19/2025 6:30 AM EDT [facility] Blood Venous blood specimen / Unknown Venipuncture / Unknown 01/19/2025 6:00 AM EDT 01/19/2025 6:19 AM EDT Taj Chaviskeisha LAB BLOOD ORDERABLES Final R [facility] [address] [place] [address], [place] [phone] * Routine EEG (01/18/2025 10:16 AM EDT) Narrative Nadja Arriaga MD - 01/18/2025 3:34 PM EDT This is a 16 channel EEG with an EKG lead. ??Patient is reported awake during the tracing. ??Background EEG rhythm is 12 to 14 Hz 5 to 50 ??V posteriorly lower amplitude faster anteriorly. ??Rarely patient gets drowsy and appropriate slowing is noted. ??Photic stimulation did not produce any significant driving. ??Hyperventilation was not performed. ??Cardiac lead did not reveal any significant abnormality. ??No sharp spikes or paroxysmal tendency asymmetry noted. Impression: No significant abnormality noted on this EEG. Taj Huynh DO NEUROLOGY ORDERABLES Final R esult * (ABNORMAL) Activated Partial Thromboplastin Time - STAT (01/18/2025 4:33 AM EDT) Only the most recent of2 resultswithin the time period is included. aPTT 48.6(H) 24.1 - 39.3 sec LAB COAGULATION METHOD 01/18/2025 4:53 AM EDT [facility] Blood Venous blood specimen / Unknown Venipuncture / Unknown 01/18/2025 4:33 AM EDT 01/18/2025 4:42 AM EDT Jelena CHACON LAB BLOOD ORDERABLES Final Re sult [facility] [address] [place] [address], [place] [phone] * Prothrombin Time with INR - STAT (01/18/2025 4:33 AM EDT) Only the most recent of3 resultswithin the time period is included. Protime 12.9 10.6 - 13.9 sec LAB COAGULATION METHOD 01/18/2025 4:53 AM EDT [facility] INR 1.0 LAB COAGULATION METHOD 01/18/2025 4:53 AM EDT [facility] Blood Venous blood specimen / Unknown Venipuncture / Unknown 01/18/2025 4:33 AM EDT 01/18/2025 4:42 AM EDT us Jelena CHACON LAB BLOOD ORDERABLES Final Re sult Performing Organization Address [facility]/ZIP Co de Phone Number [facility] [address] [place] [address], [place] [phone] * Troponin I high sensitivity (01/17/2025 5:39 PM EDT) Only the most recent of2 resultswithin the time period is included. High Sensitivity Troponin I 21 <=79 ng/L LAB CHEMISTRY METHOD 01/17/2025 6:21 PM EDT [facility] Blood Arterial blood specimen / Unknown Venipuncture / Unknown 01/17/2025 5:39 PM EDT 01/17/2025 5:51 PM EDT Narrative [facility] - 01/17/2025 6:21 PM EDT High levels of biotin in samples may falsely decrease hsTroponin values. ??Use caution when interpreting hsTroponin results in patients taking biotin who exhibit renal impairment (eGFR <60) or in patients taking more than 20 mg/day of biotin. us Taj Huynh DO LAB BLOOD ORDERABLES Final R esult Performing Organization Address [facility]/ZIP Co de Phone Number [facility] [address] [place] [address], [place] [phone] * CT Angio Head/Neck Stroke wo and/or w Contrast (01/17/2025 5:23 PM EDT) Anatomical Region Laterality Modality Head and Neck Computed Tomogra phy 01/17/2025 6:18 PM EDT Impressions 01/17/2025 6:18 PM EDT Impression: No signs of aneurysm. No signs of arterial venous malformation. CTA Neck, Bolus contrast injection, 3D reconstructions and MPRs: Comparison: None Findings: Soft tissues of the neck are unremarkable Superior aorta and branch vessels are unremarkable Right carotid: Calcified plaque with 18 % focal stenosis at the origin of the right internal carotid. (NASCET) Right vertebral: Non dominant, no stenosis Left Carotid: Calcified bifurcation plaque with 29 % stenosis at origin of the left internal carotid. (NASCET) Left Vertebral: No stenosis. Impression: Atherosclerotic plaque with no hemodynamically significant stenosis. No aneurysm or dissection. This document has been electronically signed by: Simone Downey MD on 01/17/2025 18:18:56 Narrative 01/17/2025 6:18 PM EDT INDICATION: Cerebral hemorrhage suspected CTA HEAD, bolus contrast injection. 3D reconstructions and MPRs: Comparison: Right Carotid Siphon: Calcified plaque with mild stenosis. Right Anterior Cerebral Artery: A1 and A2 segments are unremarkable. There is peripheral cortical enhancement. Right Middle Cerebral Artery: M1 and M2 segments are unremarkable. There is peripheral cortical enhancement. Right Posterior Cerebral Artery: There is persistent right posterior cerebral artery circulation, a normal variant. P2 segments are unremarkable. There is peripheral enhancement. Left Carotid Siphon: Calcified plaque with mild stenosis. Left Anterior Cerebral Artery: A1 and A2 segments are unremarkable. There is peripheral cortical enhancement. Left Middle Cerebral Artery: M1 and M2 segments are unremarkable. There is peripheral cortical enhancement. Left Posterior Cerebral Artery: P1 and P2 segments are unremarkable. There is peripheral cortical enhancement. Basilar Artery: Normal. Venous drainage: Normal. Procedure Note Simone Downey MD - 01/17/2025 INDICATION: Cerebral hemorrhage suspected CTA HEAD, bolus contrast injection. 3D reconstructions and MPRs: Comparison: Right Carotid Siphon: Calcified plaque with mild stenosis. Right Anterior Cerebral Artery: A1 and A2 segments are unremarkable.There is peripheral cortical enhancement. Right Middle Cerebral Artery: M1 and M2 segments are unremarkable. There is peripheral cortical enhancement. Right Posterior Cerebral Artery: There is persistent right posterior cerebral artery circulation, a normal variant. P2 segments are unremarkable. There is peripheral enhancement. Left Carotid Siphon: Calcified plaque with mild stenosis. Left Anterior Cerebral Artery: A1 and A2 segments are unremarkable.There is peripheral cortical enhancement. Left Middle Cerebral Artery: M1 and M2 segments are unremarkable. Thereis peripheral cortical enhancement. Left Posterior Cerebral Artery: P1 and P2 segments are unremarkable.There is peripheral cortical enhancement. Basilar Artery: Normal. Venous drainage: Normal. IMPRESSION: Impression: No signs of aneurysm. No signs of arterial venous malformation. CTA Neck, Bolus contrast injection, 3D reconstructions and MPRs: Comparison: None Findings: Soft tissues of the neck are unremarkable Superior aorta and branch vessels are unremarkable Right carotid: Calcified plaque with 18 % focal stenosis at the originof the right internal carotid. (NASCET) Right vertebral: Non dominant, no stenosis Left Carotid: Calcified bifurcation plaque with 29 % stenosis at originof the left internal carotid. (NASCET) Left Vertebral: No stenosis. Impression: Atherosclerotic plaque with no hemodynamically significant stenosis. No aneurysm or dissection. This document has been electronically signed by: Simone Downey MD on 01/17/2025 18:18:56 Divine Hoff Oly TAVERAS IMG CT PROCEDURES Final Result * CT Head Stroke wo Contrast (01/17/2025 5:22 PM EDT) Anatomical Region Laterality Modality Head and Neck Computed Tomogra phy 01/17/2025 5:26 PM EDT Addenda Addendum by Simone Downey MD on 01/17/2025 5:48 PM EDT ADDENDUM: This report was discussed with Taj Huynh DO on Jan 17, 2025 17:47:00 EDT. This document has been electronically signed by: Deyanira Phillips on 01/17/2025 17:48:13 Impressions 01/17/2025 5:26 PM EDT Impression: Benign 12 mm right side anterior falcine partially calcified meningioma Chronic involutional volume loss with no acute findings. ASPECTS score 10, NORMAL This document has been electronically signed by: Simone Downey MD on 01/17/2025 17:26:08 Narrative 01/17/2025 5:26 PM EDT INDICATION: Mental status change, unknown cause CT Head Without Contrast: Comparison: None Findings: Cortical sulci and cisterns are prominent. The ventricles are symmetric. There is a 12 mm right side falcine meningioma partially calcified. Basal ganglia are unremarkable No shift in midline structures No intraparenchymal bleeding or abnormal extra axial blood fluid collections Normal pituitary size Clear paranasal sinuses Unremarkable orbital structures No depressed fractures Procedure Note Simone Downey MD - 01/17/2025 INDICATION: Mental status change, unknown cause CT Head Without Contrast: Comparison: None Findings: Cortical sulci and cisterns are prominent. The ventricles are symmetric. There is a 12 mm right side falcine meningioma partially calcified. Basal ganglia are unremarkable No shift in midline structures No intraparenchymal bleeding or abnormal extra axial blood fluid collections Normal pituitary size Clear paranasal sinuses Unremarkable orbital structures No depressed fractures IMPRESSION: Impression: Benign 12 mm right side anterior falcine partially calcified meningioma Chronic involutional volume loss with no acute findings. ASPECTS score 10, NORMAL This document has been electronically signed by: Simone Downey MD on 01/17/2025 17:26:08 Divine Aldridge NP IMG CT PROCEDURES Edited Result - Final * (ABNORMAL) Arterial blood gas (01/17/2025 4:55 PM EDT) pH, Arterial 7.39 7.35 - 7.45 pH 01/17/2025 5:01 PM EDT [facility] pCO2, Arterial 37 35 - 45 mmHg 01/17/2025 5:01 PM EDT [facility] pO2, Arterial 74(L) 80 - 100 mmHg 01/17/2025 5:01 PM EDT [facility] HCO3, Arterial 23.2 22.0 - 26.0 mmol/L 01/17/2025 5:01 PM EDT [facility] O2 Sat, Arterial 97.2 95.0 - 98.0 % 01/17/2025 5:01 PM EDT [facility] Base Excess, Arterial -2.2(L) -2.0 - 2.0 mmol/L 01/17/2025 5:01 PM EDT [facility] Blood Arterial blood specimen / Unknown Arterial Puncture / Unknown 01/17/2025 4:55 PM EDT 01/17/2025 4:58 PM EDT us Divine Aldridge NP LAB BLOOD ORDERABLES Fin al Result [facility] [address] [place] [address], * (ABNORMAL) Creatine kinase and CKMB (01/17/2025 3:31 PM EDT) Pathologist [facility] Total CK 41 22 - 269 unit/L LAB CHEMISTRY METHOD 01/17/2025 4:54 PM EDT [facility] CK-MB <1.0(L) 1.0 - 3.6 ng/mL LAB CHEMISTRY METHOD 01/17/2025 4:54 PM EDT [facility] CK-MB Index <0.0(L) 0.0 - 5.0 LAB CHEMISTRY METHOD 01/17/2025 4:54 PM EDT [facility] Blood Arterial blood specimen / Unknown Arterial Puncture / Unknown 01/17/2025 3:31 PM EDT 01/17/2025 3:39 PM EDT us Taj Huynh DO LAB BLOOD ORDERABLES Final R esult Performing Organization Address City/[facility]/ZIP Co de Phone Number [facility] [address] [place] [address], [place] [phone] * (ABNORMAL) POCT activated clotting time,kaolin (01/17/2025 2:34 PM EDT) Only the most recent of7 resultswithin the time period is included. [facility] Activated Clotting Time Kaolin 164(H) 74 - 137 sec 01/18/2025 5:32 AM EDT [facility] Blood Arterial blood specimen / Unknown 01/17/2025 2:34 PM EDT 01/18/2025 5:34 AM EDT us Taj Huynh DO LAB POINT OF CARE TE ST DOCKED DEVICE UNSOLICITED RESULTS Final Result [facility] [address] [place] [address], [place] [phone] * (ABNORMAL) POCT Arterial basic metabolic profile, HH (01/17/2025 1:44 PM EDT) Glucose Arterial POCT 127(H) 70 - 100 mg/dL 01/18/2025 5:32 AM EDT [facility] Sodium Arterial POCT 139 135 - 145 mmol/L 01/18/2025 5:32 AM T [facility] Potassium Arterial POCT 4.7 3.5 - 5.5 mmol/L 01/18/2025 5:32 AM [facility] Chloride Arterial POCT 107 96 - 110 mmol/L 01/18/2025 5:32 AM T [facility] TCO2 Arterial POCT 23 21 - 32 mmol/L 01/18/2025 5:32 AM [facility] BUN, Arterial POCT 26(H) 5 - 25 mg/dL 01/18/2025 5:32 AM [facility] Creatinine Arterial POCT 1.7(H) 0.7 - 1.3 mg/dL 01/18/2025 5:32 AM [facility] Ionized Calcium Arterial POCT 4.80 4.50 - 5.30 mg/dL 01/18/2025 5:32 AM [facility] Hemoglobin Arterial POCT 10.5(L) 13.5 - 17.5 g/dL 01/18/2025 5:32 AM T [facility] Hematocrit Arterial POCT 31(L) 42 - 54 % 01/18/2025 5:32 AM [facility] Blood Arterial blood specimen / Unknown 01/17/2025 1:44 PM EDT 01/18/2025 5:34 AM EDT us Taj Huynh DO LAB POINT OF CARE TE ST DOCKED DEVICE UNSOLICITED RESULTS Final Result [facility] [address] [place] [address], * TH AN ENDOTRACHEAL(NO CHARGE) (01/17/2025 11:27 AM EDT) Martina Nelson CRNA - 01/17/2025 11:27 AM EDT Martina Chong CRNA ? 01/17/2025 11:28 AM General Information and Staff Patient location during procedure: OR Anesthesiologist: Nathan Lucio DO Resident/KEY RINGER: Martina Chong CRNA Performed: resident/KEY RINGER/CAA Performed by: Martina Chong CRNA Authorized by: Nathan Lucio DO ?? Intubation Airway not difficult Urgency: elective Final Airway Details Successful airway: ETT Cuffed: yes Successful intubation technique: direct laryngoscopy Facilitating devices/methods: anterior pressure/BURP Endotracheal tube insertion site: oral Blade: Velasquez Blade size: #3 ETT size (mm): 7.5 Cormack-Lehane Classification: grade IIb - view of arytenoids or posterior of glottis only Placement verified by: chest auscultation and capnometry Measured from: lips ETT to lips (cm): 23 Number of attempts at approach: 1 Number of other approaches attempted: 0Final airway type: endotracheal airway Indications and Patient Condition Indications for airway management: anesthesia Spontaneous ventilation: present Sedation level: Yes Preoxygenated: yes Soft Tissue Damage: No Dentition Unchanged: Yes Patient position: sniffing Mask difficulty assessment: 2 - vent by mask + OA or adjuvant +/- NMBA Start Time: 01/17/2025 11:27 AMStop Time: 01/17/2025 11:27 AM Nathan Lucio DO ANESTHESIA ORDERABLES Final Result * TH AN ARTERIAL LINE (CHARGE) (01/17/2025 11:24 AM EDT) Martina Nelson CRNA - 01/17/2025 11:24 AM EDT Martina Chong CRNA ? 01/17/2025 11:26 AM Arterial Line Performed by: Martina Chong CRNA Authorized by: Nathan Lucio DO ??Consent: Written consent obtained. Risks and benefits: risks, benefits and alternatives were discussed Consent given by: patient Patient understanding: patient states understanding of the procedure being performed Patient consent: the patient's understanding of the procedure matches consent given Procedure consent: procedure consent matches procedure scheduled Relevant documents: relevant documents present and verified Required items: required blood products, implants, devices, and special equipment available Patient identity confirmed: arm band Time out: Immediately prior to procedure a time out was called to verify the correct patient, procedure, equipment, it desktop support specialist and site/side marked as required. Preparation: Patient was prepped and draped in the usual sterile fashion. Indications: hemodynamic monitoring Location: right radial Sedation: Patient sedated: geta. Needle gauge: 20 Seldinger technique: Seldinger technique used Number of attempts: 1 Post-procedure: dressing applied Post-procedure CMS: normal and unchanged Patient tolerance: patient tolerated the procedure well with no immediate complications Start Time: 01/17/2025 11:25 AMStop Time: 01/17/2025 11:25 AM Staffing Anesthesiologist: Nathan Lucio DO Resident/KEY RINGER: Martina Chong CRNA Nathan Lucio DO ANESTHESIA ORDERABLES Final Result * Prepare RBC: 2 Units (01/17/2025 10:40 AM EDT) Product Code [id number] [facility]20[facility] 6:[facility] Number [id number] 01/19/20 6:55 AM [facility] Crossmatch Compatible 01/17/2025 10:51 [facility] Dispense Status Released From Crossmatch 01/18/2025 6:55 AM [facility] Unit ABO Rh OPOS 01/18/2025 6:55 [facility] Unit Expiration Date Time [id number] 01/18/2025 6:55 AM [facility] Unit Blood Type 5100 01/18/2025 6:55 AM [facility] Product Code [id number] 01/18/2025 6:55 AM [facility] Unit Number [id number] 04/17/20 25 6:55 AM EDT [facility] Crossmatch Compatible 01/17/2025 10:53 AM EDT [facility] Dispense Status Released From Crossmatch 01/18/2025 6:55 AM EDT [facility] Unit ABO Rh OPOS 01/18/2025 6:55 AM EDT [facility] Unit Expiration Date Time 01/18/2025 6:55 AM EDT [facility] Unit Blood Type 5100 01/18/2025 6:55 AM EDT [facility] Blood Venous blood specimen / Unknown 01/17/2025 10:40 AM EDT 01/11/2025 11:59 AM EDT Martina Chong CRNA BLOOD BANK PRODUCT ORDERABLES Final Result [facility] [address] [place] [address], [place] [phone] * ECG 12 lead - Procedural (No Charge) (01/11/2025 11:41 AM EDT) Ventricular Rate ECG 70 BPM GEMUSE Atrial Rate 70 BPM GEMUSE P-R Interval 254 ms GEMUSE QRS Duration 144 ms GEMUSE Q-T Interval 446 ms GEMUSE QTc 481 ms GEMUSE R [place] -68 degrees GEMUSE T [place] 86 degrees GEMUSE ECG Interpretation AV dual-paced rhythm with prolonged AV conduction Abnormal ECG When compared with ECG of 29-MAY-2024 10:40, Premature ventricular complexes are no longer Present Vent. rate has decreased BY ?? 4 BPM Confirmed by MD Pedro, Cezar ([id number]) on 01/12/2025 1:20:12 AM GEMUSE 01/11/2025 11:4 1 AM EDT 01/12/2025 1:20 AM EDT us Jelena CHACON ECG ORDERABLES Final Result GEMUSE * Type and screen (01/11/2025 11:27 AM EDT) ABO Group O 01/11/2025 12:54 PM EDT [facility] Rh Type Positive 01/11/2025 12:54 PM EDT [facility] Antibody Screen Negative 01/11/2025 12:54 PM EDT [facility] Blood Venous blood specimen / Unknown Venipuncture / Unknown 01/11/2025 11:27 AM EDT 01/11/2025 11:59 AM EDT us Jelena CHACON LAB BLOOD BANK TEST ORDERABLE S Final Result Performing Organization Address [facility] Co de Phone Number [facility] [address] [place] [address], [place] [phone] * ANGIOGRAPHY LOWER EXT RIGHT (01/09/2025 5:16 PM EDT) Anatomical Region Laterality Modality X-Ray Angiograph y Narrative 01/10/2025 8:18 AM EDT Per op note Study Details Per op note Clinical Background Per op note Procedure Details Per op note us Jelena CHACON CV INVASIVE VASCULAR PROCEDUR ES Final Result * Anti-Xa - Every 6 Hours (01/09/2025 10:23 AM EDT) Only the most recent of6 resultswithin the time period is included. Heparin Anti-Xa 0.61 0.30 - 0.70 I Unit/mL LAB COAGULATION METHOD 01/09/2025 10:41 AM EDT [facility] Blood Venous blood specimen / Unknown Venipuncture / Unknown 01/09/2025 10:23 AM EDT 01/09/2025 10:29 AM EDT Narrative [facility] - 01/09/2025 10:41 AM EDT Therapeutic range listed is for Unfractionated Heparin. LMW Heparin therapeutic range: 0.50-1.20 IU/mL us Angela CHACON LAB BLOOD ORDERABLES Final Resul t [facility] [address] [place] [address], [place] [phone] * (ABNORMAL) Comprehensive metabolic panel (01/08/2025 8:32 AM EDT) Sodium 140 133 - 145 mmol/L LAB CHEMISTRY METHOD 01/08/2025 9:24 AM [facility] Potassium 3.9 3.5 - 5.5 mmol/L LAB CHEMISTRY METHOD 01/08/2025 9:24 AM [facility] Chloride 110 96 - 110 mmol/L LAB CHEMISTRY METHOD 01/08/2025 9:24 AM [facility] CO2 26 21 - 32 mmol/L LAB CHEMISTRY METHOD 01/08/2025 9:24 AM [facility] Anion Gap 4 3 - 11 LAB CHEMISTRY METHOD 01/08/2025 9:24 AM [facility] Glucose 111(H) 70 - 100 mg/dL LAB CHEMISTRY METHOD 01/08/2025 9:24 AM [facility] BUN 27(H) 5 - 25 mg/dL LAB CHEMISTRY METHOD 01/08/2025 9:24 AM [facility] Creatinine 1.77(H) 0.70 - 1.30 mg/dL LAB CHEMISTRY METHOD 01/08/2025 9:24 AM [facility] eGFR 37(L) >=60 mL/min/1. 73m2 LAB CHEMISTRY METHOD 01/08/2025 9:24 AM [facility] Comment:Calculation based on the??Chronic Kidney Disease Epidemiology Collaboration (CKD-EPI) equation refit??without adjustment for race. BUN/Creatinine Ratio 15.3 LAB CHEMISTRY METHOD 01/08/2025 9:24 AM [facility] Calcium 8.5 8.5 - 10.5 mg/dL LAB CHEMISTRY METHOD 01/08/2025 9:24 AM [facility] AST (SGOT) 20 10 - 42 unit/L LAB CHEMISTRY METHOD 01/08/2025 9:24 AM [facility] ALT (SGPT) 14 10 - 60 unit/L LAB CHEMISTRY METHOD 01/08/2025 9:24 AM [facility] Alkaline Phosphatase 51 42 - 121 unit/L LAB CHEMISTRY METHOD 01/08/2025 9:24 AM [facility] Total Protein 6.4 6.0 - 8.0 g/dL LAB CHEMISTRY METHOD 01/08/2025 9:24 AM [facility] Albumin 3.3 3.2 - 5.0 g/dL LAB CHEMISTRY METHOD 01/08/2025 9:24 AM [facility] Total Bilirubin 0.4 0.0 - 1.4 mg/dL LAB CHEMISTRY METHOD 01/08/2025 9:24 AM [facility] Blood Venous blood specimen / Unknown Venipuncture / Unknown 01/08/2025 8:32 AM EDT 01/08/2025 8:53 AM EDT us Joselyn CHACON LAB BLOOD ORDERABLES Fin al Result [facility] [address] [place] [address], * Vascular US duplex lower extremity venous [...] trendelenburg. Left saphenopopliteal junction was not identified. Concert Singer Details A mitchell scale, color and doppler [...] PSV 28 cm/s CV VAS LAB Left ADDRESSER prox sys PSV 60 cm/s CV VAS [...] PSV 19 cm/s CV VAS LAB Right ADDRESSER prox sys PSV 74 cm/s CV VAS [...] The mid peroneal artery has triphasic flow. Concert Singer Details A mitchell scale, color and doppler analysis ultrasound was performed. During the study longitudinal and transverse views were obtained. Continuous wave doppler and pulsed wave doppler was performed. Overall the study quality was technically difficult. Study was technically difficult due to: acoustic shadowing and patient uncooperative. Result [facility] Ahmet Banks MD CV VASCULAR PROCEDURES Final Re sult * Hemoglobin A1c (03/22/2024) [facility] Hemoglobin A1C 6.4 <=6.5 % Blood Venous blood specimen / Unknown Result [facility] Provider LAB BLOOD ORDERABLES Rosa Isela l Result * Urine Albumin Creatinine Ratio (09/08/2023) [facility] Urine Albumin Creatinine Ratio Abstracted Result [facility] Provider HEALTH MAINTENANCE Final Result * (ABNORMAL) Lipid panel (09/08/2023) [facility] LDL/HDL Ratio 4 0 - 4 Triglycerides 249(A) 0 - 150 mg/dL Cholesterol 130 0 - 200 mg/dL HDL 34(A) >=40 mg/dL LDL Cholesterol 47 0 - 100 mg/dL Blood Venous blood specimen / Unknown Result [facility] Provider LAB BLOOD ORDERABLES Rosa Isela l Result * Diabetes Foot Exam (09/07/2023) [facility] Diabetes: Annual Foot Exam Abstracted Result [facility] Provider HEALTH MAINTENANCE Final Result from Last 3 Months or Most Recently Relevant to Health Maintenance Insurance MEDICARE [facility] Advance Directives Documents on File Type Date Recorded Patient Electric Motor Analyst Expl anation DNR (Do Not Resuscitate) 02/12/2025 9:30 AM DNR (Do Not Resuscitate) 01/22/2025 9:00 AM Health Care Decision (hx) 07/03/2024 AD [place] DIRECTIVE Health Care Decision (hx) 06/03/2024 AD [place]GR[place] DIRECTIVE Health Care Decision (hx) 06/03/2024 AD [place]GR[place] DIRECTIVE Health Care Decision (hx) 06/03/2024 AD HARGROVE DIRECTIVE * No CPR/Do Not Intubate (Latest Code Status on File) Date Activated Date Inactivated Comments 02/05/2025 10:00 PM 02/09/2025 7:33 PM This code sta tus was ascertained in the following way: Code status discussion: discussion with patient To update the patient's code status, place a code status order. Do not modify or discontinue any currently active code status orders. * Full Code - Default Date Activated Date Inactivated Comments 02/05/2025 3:31 PM 02/05/2025 10:00 PM This is order is used when code status has not been discussed with the patient, or code status is otherwise unknown/unconfirmed To update the patient's code status, place a code status order. Do not modify or discontinue any currently active code status orders. * No CPR/Do Not Intubate Date Activated Date Inactivated Comments 01/18/2025 2:47 PM 01/21/2025 12:04 PM This code s tatus was ascertained in the following way: Code status discussion: discussion with patient To update the patient's code status, place a code status order. Do not modify or discontinue any currently active code status orders. * Full Code - Default Date Activated Date Inactivated Comments 01/17/2025 4:23 PM 01/18/2025 2:47 PM This is orde r is used when code status has not been discussed with the patient, or code status is otherwise unknown/unconfirmed To update the patient's code status, place a code status order. Do not modify or discontinue any currently active code status orders. * Full Code - Default Date Activated Date Inactivated Comments 01/17/2025 3:19 PM 01/17/2025 4:23 PM This is orde r is used when code status has not been discussed with the patient, or code status is otherwise unknown/unconfirmed To update the patient's code status, place a code status order. Do not modify or discontinue any currently active code status orders. Care Teams Sr. Social Media & Mobile Manager Relationship Specialty Start Date End Date Marni Ferguson MD [address] [place] [phone] PCP - General Internal Medicine 10/26/24
--- OUTSIDE RECORDS SUMMARY | 2025-02-20 11:14 | XMS_ITS | Data Portability ---
Author Organization [place] - [facility] Address [address] [address] Care Team Providers Care Financial Business Analyst Name Role Phone CHRISTIE CAR Referring [...] Time Details Appointments Establish ed 30 2024 01:00P M MELVIN GONZALEZ MD Not available Not available Not available Lab unlisted lab - TSH w/reflex 2023 024 AZEB [facility] (Centralized Electronic Ordering - All Locations), Patient Can Go To The Location Of Their Choice, [id number] 06/02/2024 21:10:25 Referral None recorded. Procedures None [...] above high normal Not Available [facility] ([facility]) [address] [place], [address], 06/02/2024 21:10:25 05/31/2006/02/2024 TSH W/REF LOLIS triiodothyro nine (T3), free 2.6 pg/mL 2.0-4. 4 Not Available [facility] ([facility]) [address] [place], [address], 06/02/2024 21:10:25 05/31/2006/02/2024 TSH W/REF LOLIS T4,free (direct) 1.07 NG/dL 0.82-1 .77 normal Not Available [facility] (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; Note: Date Diagnosed : 03/04/2020 2:33 PM (C32.0) Not Available [facility] 4 02:46:28 Dysphonia 38835426 Active 2019 Hoarsenes s; Note: Date Diagnosed : 11/15/2019 1:00 PM (R49.0) Not Available [facility] 4 02:46:18 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 335915397 Active 2022 Malignant neoplasm of aryepiglo ttic fold NOS; Note: Changed from D38.0 to C13.1 ( 3 12:15 PM) , Date Diagnosed : 02/08/2023 11:22 AM (D38.0) Not Available [facility] 4 02:46:18 History of malignant neoplasm of larynx 275727297 Active 2020 Personal history of malignant neoplasm of larynx; Note: Date Diagnosed : 12/12/2020 12:47 PM (Z85.21) Not Available [facility] 4 02:46:18 Pharyngea l dysphagia 21164626398 105 Active 2021 Dysphagia , pharyngea l phase; Note: Date Diagnosed : 03/20/2022 11:46 AM (R13.13) Not Available [facility] 4 02:46:23 Follow-up visit Active 2019 Encounter for follow-up examinati on after completed treatment for malignant neoplasm; Note: Date Diagnosed : 04/24/2020 8:56 AM (Z08) Not Available [facility] 4 02:46:22 Lymphedem a 667257249 Active 2019 Lymphedem a, not elsewhere classifie d; Note: Date Diagnosed : 04/24/2020 9:00 AM (I89.0) Not Available [facility] 4 02:46:21 Chronic cough 64419645 Active 2021 Chronic cough; Note: Changed from R05 to R05.3 ( 2 11:46 AM) , Date Diagnosed : 03/20/2022 11:46 AM (R05) Not Available [facility] 4 02:46:19 Long-term current use of antiplate let drug [id number] 4101 Active 2017 watermaster (current) use of antithrom botics/an tiplatele ts; Note: Date Diagnosed : 04/23/2017 12:51 PM (Z79.02) Not Available [facility] 4 02:46:28 Vasomotor rhinitis 3269365 Active 2020 Vasomotor rhinitis; Note: Date Diagnosed : 01/22/2021 11:42 AM (J30.0) Not Available [facility] 4 02:46:22 Neoplasm of uncertain behavior of larynx 94197335 Active 2019 Neoplasm of uncertain behavior of larynx; Note: Date Diagnosed : 12/19/2019 10:13 AM (D38.0) Not Available [facility] 4 02:46:26 Disorder of vocal cord 86206629 Active 2019 Other diseases of vocal cords; Note: Date Diagnosed : 11/15/2019 1:00 PM (J38.3) Not Available [facility] 4 02:46:20 Finding of resonance of voice 909767913 Active 2021 Other voice and resonance disorders ; Note: Date Diagnosed : 03/18/2022 5:46 PM (R49.8) Not Available [facility] 4 02:46:17 Bleeding from nose 385310318 Active 2017 Epistaxis ; Note: Date Diagnosed : 04/23/2017 12:51 PM (R04.0) Not Available [facility] 4 02:46:21 Edema of larynx following radiother apy 627339052 Active 2023 MELVIN QUINN MD [address] [facility], [place], [address] , [facility] 4 10:25:49 Abnormal auditory perceptio n 22171852 Active 2023 MELVIN QUINN MD [address] [facility],[address], [place], [address] , [place] [facility] 4 10:26:03 Bilateral tinnitus 62034512826 02 Active 2023 MELVIN QUINN MD [address], [place], [address] , [facility] - [facility] 4 10:26:07 Oropharyn geal dysphagia 35073129 Active 2023 MELVIN QUINN MD [address], [place], [address] , [facility] - [facility] 4 10:26:16 Sensorine ural hearing loss of bilateral ears 216384790 Active 2023 COLIN JIMENEZ MA, CCC-A [address] [facility],[place] [facility], [place], [address] , [facility] 4 11:01:59 Problem Notes None recorded. Procedures Surgical History Date Name Laterality Status Provider Name and Address Organization Details Recorded Time 09/21/20 24 Fiberoptic Laryngoscopy (Comprehensive) completed MELVIN AKERS MD [address],[place] [facility], [place], [address], [facility] - [facility] 09/21/2024 11:34:17 05/31/20 24 Fiberoptic Laryngoscopy (Comprehensive) completed MELVIN AKERS MD [address] [place] [address], [address], [facility] - [facility] 05/30/2024 10:05:32 02/16/20 24 Comp Audio with Tymps - 12505 & 63847 completed COLIN JIMENEZ MA, CCC-A [address],[place] [facility], [place], [address], [facility] - [facility] 02/16/2024 11:01:33 02/16/20 24 Fiberoptic Laryngoscopy (Comprehensive) completed MELVIN AKERS MD [address] [address] [place] [address], [address], [facility] - [facility] 02/16/2024 10:25:42 02/24/20 23 Laryngoscopy with biopsy completed MELVIN AKERS MD [address],[place] [facility], [place], [address], [place] [facility] 02/14/2024 18:47:38 12/19/19 Laryngoscopy for treatment completed MELVIN AKERS MD [address] [facility],[address], [place], [address], [place] [facility] 02/14/2024 18:47:06 insertion of stent into aorta completed MELVIN AKERS MD [address] [facility],[address], [place], [address], [place] [facility] 09/21/2024 11:35:38 peripheral arterial bypass completed MELVIN AKERS MD [address] [facility], [place], [address], [place] [facility] 09/21/2024 11:35:45 Imaging Results Imaging Date Name Status LastModified by [email or web address] Details LastModified Time 11/17/2019 imaging/diag [...] Name and Address Organization Details Recorded Time 16698 Bactrim medicatio n other Not available Not available 02/15/2024 85551 9 RxNorm React ion: unkno wn, unspe cifie d;; Not Available [facility] 4 01:04:16 47407 Medicinal product containin g tetracycl ine structure and acting as antibacte rial agent (product) medicatio n other Not available Not available 02/15/2024 41052 1004 SNOMED React ion: unkno wn, unspe cifie d;; Not Available [facility] 4 01:04:19 Medications Name Sig Start Date Stop Date Status Note LastModified by Organization Details LastModified Time metformin 500 mg tablet 04/23 completed Medicati on ID: [id number] D uration Value: 90 Brand Name: metformi n Send Method: E-Prescr ibed Sub s Allowed: subs OK Medic ationGen ericName : metformi n Not Available Not Available Not Available atorvasta tin 80 mg tablet TAKE 1 TABLET BY MOUTH DAILY active Not Available Not Available No t Available gabapenti n 600 mg tablet 12/18 completed Medicati on ID: [id number] B rand Name: gabapent in Send Method: [...] 24 hr 04/23 completed Medicati on ID: [id number] D uration Value: 30 Brand Name: oxybutyn in chloride Send Method: E-Prescr ibed Sub s Allowed: subs OK Medic ationGen ericName : oxybutyn in chloride Not Available Not Available Not Available atenolol 100 mg tablet 2020 active Medicati on ID: 573127 B rand Name: atenolol Send Method: E-Prescr ibed Sub s Allowed: subs OK Medic ationGen ericName : atenolol Not Available Not Available Not Available glipizide ER 10 mg tablet, extended release 24 hr 04/23 completed Medicati on ID: [id number] D uration Value: 90 Brand Name: glipizid [...] mg capsule 12/18 completed Medicati on ID: [id number] B rand Name: gabapent in Send Method: E-Prescr ibed Sub s Allowed: subs OK Medic ationGen ericName : gabapent in Not Available Not Available Not Available Zyrtec 10 mg tablet Take 1 tablet by mouth as directed 2021 active Medicati on ID: 394388 D uration Value: 1 Brand Name: Zyrtec S end Method: E-Prescr ibed Sub s Allowed: subs OK Speci al Instruct ion: take one tablet by mouth [address] Scan Med icationG enEvelio me: Zyrtec Not Available Not Available Not Available clopidogr el 75 mg tablet 12/17 completed Medicati on ID: 118106 D uration Value: 90 Brand Name: clopidog rel Send Method: E-Prescr ibed Sub s Allowed: subs OK Medic ationGen ericName : clopidog rel Not Available Not Available Not Available amlodipin e 5 mg tablet 04/23 completed Medicati on ID: 223671 D uration Value: 90 Brand Name: amlodipi ne Send Method: E-Prescr ibed Sub s Allowed: subs OK Medic ationGen ericName : amlodipi ne Not Available Not Available Not Available tramadol 50 mg tablet 04/23 completed Medicati on ID: [id number] D uration Value: 90 Brand Name: tramadol Send Method: E-Prescr ibed Sub s Allowed: subs OK Medic ationGen ericName : tramadol Not Available Not Available Not Available lorazepam 0.5 mg tablet TAKE 1 TABLET BY MOUTH TWICE DAILY active Not Available Not Available No t Available prednison e 1 mg tablet 12/18 completed Medicati on ID: [id number] B rand Name: predniso ne Send Method: [...] mg tablet 04/23 completed Medicati on ID: [id number] D uration Value: 90 Brand Name: allopomid nol Send Method: E-Prescr ibed Sub s Allowed: subs OK Medic ationGen ericName : allopuri nol Not Available Not Available Not Available furosemid e 20 mg tablet TAKE 1 TABLET BY MOUTH DAILY active Not Available Not Available No t Available ipratropi um bromide 42 mcg (0.06 %) nasal spray 12/18 completed Medicati on ID: [id number] B rand Name: ipratrop ium bromide Send [...] by mouth 2019 active Medicati on ID: [id number] D uration Value: 1 Prescri bed By Name: RODERICK hCacon nd Name: Benadryl Allergy Send Method: E-Prescr ibed Sub s Allowed: subs OK Speci al Instruct ion: take 2 tablets [address] scan Med icationG enericNa me: Benadryl Allergy Not Available Not Available Not Available olmesarta n 5 mg tablet 12/18 completed Medicati on ID: 405480 B rand Name: olmesart an Send Method: E-Prescr ibed Sub s Allowed: subs OK Medic ationGen ericName : olmesart an Not Available Not Available Not Available olmesarta n 20 mg tablet 2020 active Medicati on ID: [id number] B rand Name: olmesart an Send Method: E-Prescr ibed Sub s Allowed: subs OK Medic ationGen ericName : olmesart an Not Available Not Available Not Available escitalop angie 10 mg tablet 04/23 completed Medicati on ID: [id number] D uration Value: 90 Brand Name: escitalo pram oxalate Send Method: E-Prescr ibed Sub s Allowed: subs OK Medic ationGen ericName : escitalo pram oxalate Not Available Not Available Not Available Novolog FlexPen U-100 Insulin aspart 100 unit/mL (3 mL) subcutane ous 2020 active Medicati on ID: [id number] B rand Name: Novolog Flexpen U-100 Insulin Send Method: E-Prescr ibed Sub s Allowed: subs OK Medic ationGen ericName : Novolog Flexpen U-100 Insulin Not Available Not Available Not Available pregabali n 150 mg capsule 2020 active Medicati on ID: [id number] B rand Name: pregabal in Send Method: E-Prescr ibed Sub s Allowed: subs OK Medic ationGen ericName : pregabal in Not Available Not Available Not Available Lyrica 75 mg capsule 04/23 completed Medicati on ID: [id number] D uration Value: 90 Brand Name: Lyrica [...] ous pen injector active Medicati on ID: [id number] B rand Name: Anuradhait y Send Method: [...] x 1/4 12/18 completed Medicati on ID: 145251 B rand Name: BD Ultra-Fi ne Micro Pen Needle S end Method: E-Prescr ibed Sub s Allowed: subs OK Medic ationGen ericName : BD Ultra-Fi ne Micro Pen Needle Not Available Not Available Not Available Ozempic 0.25 mg or 0.5 mg (2 mg/1.5 mL) subcutane ous pen injector 2020 active Medicati on ID: [id number] B rand Name: Ozempic Send Method: E-Prescr [...] Updated DateTime 05/31/2024 172.72 cm 30.6 kg/m2 48411.07 g Malik Joiner [place] - [facility] 05/31/2024 09:57:53 Date Recorded Body weight Body mass index (BMI) Body height Provider Name and Address Organization Details Last Updated DateTime 02/16/2024 26719.29 g 30.1 kg/m2 172.72 cm Malik Joiner [place] - [facility] 02/16/2024 10:11:40 Date Recorded Body height Body mass index (BMI) Body weight Provider Name and Address Organization Details Last Updated DateTime 09/21/2024 172.72 cm 30.4 kg/m2 72313.47 g Malik Joiner [place] - [facility] 09/21/2024 11:15:52 Social History None recorded. Functional Status Question Answer Note LastModified by Organizat ion Details LastModified Time Do you use any illicit or recreational drugs? No [email or web address] Information not available 02/16/2024 Do you or have you ever used any other forms of tobacco or nicotine? No [email or web address] Information not available 02/16/2024 What is your level of alcohol consumption? None [email or web address] Information not available 02/16/2024 Mental Status None recorded. Family History Nothing Reported. Medical History Condition Response Diabetes Y Hyperlipidemia Y Hypertension Y High Cholesterol Y Past Encounters Encounter ID Performer Location Encounter Start Date Encounter Closed Date Diagnosis/Indication Diagnosis SNOMED-CT Code Diagnosis ICD10 Code Diagnosis Note [id number] MELVIN QUINN MD [facility] [address] [address] 02/16/2024 10:01:00 02/16/2024 11:03:28 Abnormal auditory perception 98330831 H93.299 Bilateral tinnitus 85544 23526 102 H93.13 Oropharyng eal dysphagia 05131516 R13.12 Sensorineu ral hearing loss of bilateral ears 933724783 H90.3 Normal hearing thru 1000Hz sloping to a mild to to severe sensorineu ral hearing loss with excellent speech discrimina tion ability for both ears.Type A tympanogra ms. Declines amplificat ion History of malignant neoplasm of larynx 057901499 Z85.21 Chronic hoarseness 65217 69451 105 R49.0 Edema of l arynx following radiotherapy 664468565 J38.4 [id number] COLIN JIMENEZ MA, CCC-A [facility] [address] [address] 02/16/2024 10:57:00 02/17/2024 22:38:16 Sensorineural hearing loss of bilateral ears 669128938 H90.3 Normal hearing thru 1000Hz sloping to a mild to to severe sensorineu ral hearing loss with excellent speech discrimina tion ability for both ears.Type A tympanogra ms. Bilateral tinnitus 40061 72423 102 H93.13 [id number] MELVIN QUINN MD [facility] [address] [address] 05/31/2024 09:51:42 05/31/2024 10:31:47 History of malignant neoplasm of larynx 083330133 Z85.21 Chronic hoarseness 39713 75124 105 R49.0 Edema of l arynx following radiotherapy 184075180 J38.4 Bilateral tinnitus 44553 60875 102 H93.13 Oropharyng eal dysphagia 13892651 R13.12 Sensorineu ral hearing loss of bilateral ears 330465110 H90.3 [id number] MELVIN QUINN MD [facility] [address] [address] 09/21/2024 10:58:20 09/21/2024 11:41:36 History of malignant neoplasm of larynx 659040985 Z85.21 Chronic hoarseness 33148 99626 105 R49.0 Edema of l arynx following radiotherapy 148468763 J38.4 Bilateral tinnitus 15272 65765 102 H93.13 Oropharyng eal dysphagia 07982616 R13.12 Sensorineu ral hearing loss of bilateral ears 485464465 H90.3 Health Concerns Section Related Observation LastModified by Organization Detai ls LastModified Time None Recorded Concern Status LastModified by Organization Details LastModified Time None Recorded Advance Directives Directive None Recorded Payers Insurance Date Sequence Insurance Name Policy Number Policy Purcell Covered Member ID Purcell Member ID Guarantor Name 01/15/2025 2 FOR[facility]LY [facility] FORMERLY [facility] INDEMNITY PLAN - [place] (INDEMNITY) [id number] Mark Anthony Omalley [id number] Mark Anthony Omalley 01/15/2025 1 MEDICARE B-[place]: [facility] [employer] Mark Anthony Omalley [id number] Mark Anthony Omalley Notes Date Note [...] use water to swallow MELVIN AKERS MD [address] [facility],[address], [address], [facility] [place] 02/16/2024 12:28:07 02/16/2024 text/html tinnitus COLIN JIMENEZ MA, CCC-A [address] [facility],[address], [address], [facility] 02/16/2024 11:07:36 05/31/2024 text/html Hearing Loss - [...] peripheral bypass tomorrow. MELVIN AKERS MD [address] [facility],[address], [address], [facility] 05/31/2024 10:20:02 09/21/2024 text/html Hearing Loss - [...] peripheral bypass tomorrow. MELVIN AKERS MD [address] [place] [address], [address], [place] - [facility] 09/21/2024 13:02:16
--- OUTSIDE RECORDS SUMMARY | 2025-02-20 11:14 | XMS_ITS ---
Author Organization [address] [facility] Address [address] [place] [address] Phone Care Team Providers Care Needle Control Cheniller Name Role Phone Marni Ferguson MD Primary Care Provider [phone] Active Problems Problem Noted Date Diagnosed Date Gangrene of toe of right foot ([facility] V24, [facility] V28) 02/05/2025 Ischemic leg 01/08/2025 Occlusion of arterial bypass graft ([facility] V24) 10/26/2024 Acute deep vein thrombosis ( DVT) of femoral vein of right lower extremity ([facility] V24, [facility] V28) 10/26/2024 Diabetic neuritis ([facility] V24, [facility] V28) Hypertension 08/29/2024 Lumbar spondylosis 09/22/2022 Overview (08/29/2024): Last Assessment & Plan: Mr. Omalley underwent bilateral radiofrequency ablation on 10/08/2022 at [facility] with some improvement lasting 1 [...] Bacterial pneumonia 04/21/2022 CHF (congestive heart failure) ([facility] V24, [facility] V28) 04/21/2022 Gastrointestinal hemorrhage 04/21/2022 Neuropathy 04/21/2022 SSS (sick sinus syndrome) ([facility] V24, [facility] V28) 04/21/2022 Overview (08/29/2024): Last Assessment & Plan: This is been stable. He is status post pacemaker generator replacement as he was end-of-life. This is working well. He is feeling better now that his heart rates are in the higher range. Acute hypoxemic respiratory failure ([facility] V24, [facility] V28) 04/21/2022 Heart block AV complete ([facility] V24, [facility] V2 8) 04/01/2022 AAA (abdominal aortic aneurysm) ([facility] V24) Overview (08/29/2024): Last Assessment & Plan: He had a repeat echo done recently. This showed no changes when compared to before. He has been followed by vascular surgery. Malignant neoplasm of right vocal cord ([facility] V24, [facility] V28) 11/06/2020 CKD (chronic kidney disease) stage 3, GFR 30-59 ml/min ([facility] V24, [facility] V28) 11/06/2020 Anxiety 08/09/2020 BPH (benign prostatic hyperplasia) 08/09/2020 Coronary artery disease invo lving [place] heart without angina pectoris 08/09/2020 Overview (08/29/2024): [...] lifestyle choices and diet. Peripheral vascular disease ([facility] V24) 2019 Overview (08/29/2024): Last Assessment & Plan: This is stable. Again this is being followed by Dr. Banks. He states that he will be getting a lower extremity arterial study done in the next couple weeks. ST elevation myocardial infa rction (STEMI) ([facility] V24, [facility] V28) 08/09/2020 Overview (08/29/2024): Last Assessment & [...] low cholesterol diet and exercise. 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 Past Plans No past plan information found. Radiation Treatments * No radiation treatments are documented for this patient in [facility]. Treatments may have been administered in another system. Lifetime Dose Tracking * Chemical Lifetime Dose Automatic Entry Manual Entr y Radiation 4,333.74 mGy 0 mGy 4,333.74 mGy Fluoro Time 11.2 minutes 0 minutes 11.2 minutes Resolved Problems Problem Noted Date Diagnosed Date Resolved Date Critical limb ischemia of ri ght lower extremity ([facility] V24, [facility] V28) 01/08/2025 Epistaxis 10/28/2024 10/28/2024
--- OUTSIDE RECORDS SUMMARY | 2025-02-20 11:14 | XMS_ITS | Clinical Summary ---
Author Organization [facility] Address [address] [place] [address] Phone Care Team Providers Care Hand Assembler Name Role Phone Mercy Grewal Primary Care Provider [phone] Allergies Active Allergy Reactions Criticality Noted Date [...] device routinely. Type 2 diabetes mellitus 12/30/2017 Immunizations Immunization Administration Dates Next Due [email or web address] SARS-COV-2 05/20/2021,12/02/2020,11/10/19 21 Pneumococcal Conjugate 13-Valent 01/29/2018,1004/2015 Pneumococcal Polysaccharide 07/04/2019 Shingrix 08/03/2018,01/29/2018 Td, Unspecified [...] Diabetes: Visual Foot Exam 07/07/2023 Influenza Vaccine (Season Ended) 2025 Pneumococcal Vaccine: 50+ Years Completed 07/04/2019, 01/29/2018, 07/10/2015 Pneumococcal Vaccine: Peds ( 0 to 5 Years) and At-Risk Patients (6 to 49 Years) Discontinued 07/04/2019, 01/29/2018, 07/10/2015 Hepatitis B Vaccine Aged Out No longe r eligible based on patient's age to complete this topic Insurance Unicare Medicare Unicare Medicare Care Teams Hand Assembler Relationship Specialty Start Date End Date [facility] [place], [facility] [address] [place] [address] [facility] - General 03/03/23
[2025-02-20 13:44] LABS: Anion Gap 15 (12-20); Blood Urea Nitrogen 27 mg/dL (9-16); Carbon Dioxide 23 mmol/L (22-29); Chloride 107 mmol/L (96-108); Estimated Glomerular Filt Rate 33; Potassium 4.1 mmol/L (3.3-5.1); Sodium 141 mmol/L (135-145)
== END 2025-02-20 10:03 | disposition home or self-care (01) ==
LOC: HO.HMGCLDS 10:02
PROVIDERS: Visit Provider Internal Medicine Nephrology
DX: N18.32 Chronic kidney disease, stage 3b (principal)
CPT/HCPCS: 36415; 80051; 82565; 84520

== ENCOUNTER 2025-02-23 11:48 | Outpatient (AMB) | payer MEDICARE, OTHER, SELFPAY ==
--- OUTSIDE RECORDS SUMMARY | 2025-02-23 11:51 | XMS_ITS | Encounter Summary ---
Author Organization [facility] [address] Care Team Providers Care Category Manager Name Role Phone Marni Ferguson MD Primary Care Provider [phone] Encounter Details Date Type Department Care Team (Late st Contact Info) Description 02/21/2025 7:25 PM EDT Ancillary Procedure [facility] - [facility] [address] [facility] [address] [place] [address] Arrived Social History Tobacco Use Types Packs/Day Years [...] PM EST documented as of this encounter Functional Status * Are you deaf or do you have serious difficulty hearing? Answer Date of Assessment Author No 02/05/2025 8:35 PM Kellie Gaines RN * Are you blind or do you have serious difficulty seeing, even when wearing glasses? Answer Date of Assessment Author No 02/05/2025 8:35 PM Kellie Gaines RN * Do you have serious difficulty walking or climbing stairs? Answer Date of Assessment Author No 02/05/2025 8:35 PM Kellie Gaines RN * Do you have serious difficulty dressing or bathing? Answer Date of Assessment Author No 02/05/2025 8:35 PM Kellie Gaines RN * Because of a physical, mental, or emotional condition, do you have serious difficulty doing errandsalone such as visiting the doctor? Answer Date of Assessment Author No 02/05/2025 8:35 PM Kellie Gaines RN documented as of this encounter Mental Status * Because of a physical, mental, or emotional condition, do you have serious difficulty concentrating, remembering, or making decisions? (5 years old or older) Answer Entry Date Author No 02/05/2025 8:35 PM Kellie Gaines RN documented in this encounter Plan of Treatment Upcoming Encounters Date Type Department Care Team (Late st Contact Info) Description 02/27/2025 8:30 AM EDT Office Visit Vascular Surgery [facility] [address] [place] [address] Andie Chua PA [address] [place] [address] 05/24/2025 11:00 AM EDT Ancillary Procedure [facility] [address] [place] [address] 05/24/2025 12:00 PM EDT Ancillary Procedure [facility] [address] [place] [address] 06/25/2025 11:00 AM EDT Office Visit Vascular Surgery [facility] [address] [place] [address] Ahmet Banks MD [address] [place] [address] documented as of this encounter Procedures Procedure Name Priority Date/Time Associated Diagnosis Comments CARDIAC DEVICE CHECK- REMOTE- MURJ Routine 02/21/2025 7:24 PM EDT documented in this encounter Results * Cardiac device check - Remote- MURJ (02/21/2025 7:24 PM EDT) Date Time Interrogation Session [id number] CV DEVICE CHECK Type Interrogation Session Remote CV DEVICE CHECK Implantable Pulse Generator Physical Chemistry Professor MDNidia CV DEVICE CHECK Implantable Pulse Generator Type IPG CV DEVICE CHECK Implantable Pulse Generator Model [place] XT DR LAMA [id number] CV DEVICE CHECK Implantable Pulse Generator Serial Number [id number] CV DEVICE CHECK Implantable Pulse Generator Implant Date [id number] CV DEVICE CHECK Battery Remaining Longevity 101.0 CV DEVICE CHECK Battery Voltage 3.000 CV D EVICE CHECK Battery LAPELER Trigger 2.625 CV DEVICE CHECK Battery Status Middle of Service CV DEVICE CHECK Jag Statistic RA Percent Paced 98.75 CV DEVICE CHECK Jag Statistic RV Percent Paced 99.82 CV DEVICE CHECK Atrial Tachy Statistic AT/AF Wallace Percent 0.00 CV DEVICE CHECK Lead Channel Sensing Intrinsic Amplitude 1.500 CV DEVICE CHECK Lead Channel Setting Sensing Sensitivity 0.30 CV DEVICE CHECK Lead Channel Impedance Value 361 CV DEVICE CHECK Lead Channel Pacing Threshold Amplitude 0.750 CV DEVICE CHECK Lead Channel Pacing Threshold Pulse Width 0.4 CV DEVICE CHECK Lead Channel RA Pacing Threshold Date 2025-02-09 CV DEVICE CHECK Lead Channel Setting Pacing Amplitude 1.500 CV DEVICE CHECK Lead Channel Setting Pacing Pulse Width 0.4 CV DEVICE CHECK Lead Channel Sensing Intrinsic Amplitude 2.125 CV DEVICE CHECK Lead Channel Setting Sensing Sensitivity 1.20 CV DEVICE CHECK Lead Channel Impedance Value 456 CV DEVICE CHECK Lead Channel Pacing Threshold Amplitude 0.875 CV DEVICE CHECK Lead Channel Pacing Threshold Pulse Width 0.4 CV DEVICE CHECK Lead Channel RV Pacing Threshold Date 2025-02-13 CV DEVICE CHECK Lead Channel Setting Pacing [...] 6 CV DEVICE CHECK Date of Service 2025-02-25 CV DEVICE CHECK Anatomical Region Laterality Modality Device Interroga tion 02/13/2025 10:4 7 PM EDT Impressions 02/21/2025 2:27 PM EDT Normal Remote: With Events * Normal Device Function * Events or Alerts: 1 * 8 beat VT 12/27/24 * Battery: OK, 8.42 yrs * Sensing, impedance and thresholds reviewed * Programmed parameters reviewed * Presenting rhythm reviewed * Heart Rate Histograms reviewed Narrative Procedure Note Katia Proctor MD - 02/21/2025 IMPRESSION: Normal Remote: With Events * Normal Device Function * Events or Alerts: 1 * 8 beat VT 12/27/24 * Battery: OK, 8.42 yrs * Sensing, impedance and thresholds reviewed * Programmed parameters reviewed * Presenting rhythm reviewed * Heart Rate Histograms reviewed Katia Proctor MD CV IMPLANTABLE CARDIAC DEV ICE PROCEDURES Final Result documented in this encounter Visit Diagnoses Not on filedocumented in this encounter Care Teams Category Manager Relationship Specialty Start Date End Date Marni Ferguson MD [address] [place] [id number] PCP - General Internal Medicine 10/26/24 documented as of this encounter
--- NOTE | 2025-02-23 12:16 | HO.NEPHOV ---
Vital Signs 02/23/25 12:19 Height 5 ft 9 in Weight 187 lb BMI 27.6 BP 120/60 Blood Pressure Location Lt brachial Position Sitting Pulse 72 Pulse Source Pulse Oximeter Pulse Oximetry (%) 100 Oxygen Delivery Method Room Air Intake Visit Reasons: CKD-Conf Physician Primary Care Sports Medicine Required: No Accompanied by: Spouse Allergies Iodinated Contrast Media [IV Dye, Iodine Containing] Allergy (Severe, Verified 02/23/25 12:19) SWELLING sulfamethoxazole [From Bactrim] Allergy (Severe, Verified 02/23/25 12:19) SWELLING RASH tetracycline [Tetracycline] Allergy (Severe, Verified 02/23/25 12:19) SWELLING , RASH trimethoprim [From Bactrim] Allergy (Severe, Verified 02/23/25 12:19) SWELLING RASH Sulfa (Sulfonamide Antibiotics) Allergy (Unknown, Verified 02/23/25 12:19) hives IVP dye Allergy (Unknown, Uncoded 12/20/24 13:24) Anaphylaxis Renée Dry Allergy (Unknown, Uncoded 12/20/24 13:24) rash tetracycline Allergy (Unknown, Uncoded 12/20/24 13:24) hives HPI Comments Details: Mark Anthony was seen in the office in follow-up of his chronic kidney disease and hypertension. He is known to have cardiomyopathy. He had RLE 4 th toe amputation recently. He does not have any worsening pedal edema, chest pain, shortness of breath, proximal nocturnal dyspnea or orthopnea.He had AAA repair May 2024. His PAD pain is better after surgery. His serum creatinine has improved/stable. [facility] Medical History Surgery, elective Obesity due to excess calories Hx of aneurysm Hx of myocardial infarction Carpal tunnel syndrome Throat cancer Ischemic colitis Pacemaker Diverticulitis BPH (benign prostatic hyperplasia) Type 2 diabetes mellitus with chronic kidney disease Chronic kidney disease, stage 3 Type 2 diabetes mellitus with diabetic polyneuropathy Essential hypertension Hyperlipidemia LDL goal <70 Surgical History History of back surgery H/O neck surgery History of prostate surgery Hx of angioplasty Hx of hernia repair Hx of tonsillectomy Family History Father Prostate cancer Mother Breast cancer Diabetes Social History Household Members: Spouse Patient Tobacco Use Status: Former Tobacco user Tobacco use type: Cigarette Cigarettes Per Day: 10 Years Smoked: 40 Review of Systems Const All systems reviewed & are unremarkable except as noted in HPI and below Physical Exam Vital Signs: Last Vital Signs Pulse 72 02/23/25 12:19 BP 120/60 02/23/25 12:19 Pulse Ox 100 02/23/25 12:19 Oxygen Delivery Method Room Air 02/23/25 12:19 BMI result Body Mass Index 27.6 Const General: comfortable and no acute distress Orientation/consciousness: patient oriented x3 HEENT Head: Yes normocephalic Mouth: Normal oral and palatal mucosa present Eyes EOM: EOMs intact bilaterally Neck Neck: Yes supple Resp Auscultation: clear to auscultation bilaterally Cardio Jugular venous distension: no JVD Rate: regular rate GI Palpation (GI): Soft to palpation Auscultation: normal bowel sounds General: Yes no CVA tenderness Back/Spine/Pelvis Back: no CVA tenderness Skin General skin exam: no rashes or lesions noted Neuro General: patient oriented x3 and moves all extremities Results Reviewed Nephrology Results: Sodium 141 mmol/L (135-145) 02/20/25 Potassium 4.1 mmol/L (3.3-5.1) 02/20/25 Chloride 107 mmol/L (96-108) 02/20/25 Carbon Dioxide 23 mmol/L (22-29) 02/20/25 BUN 27 mg/dL (9-16) H 02/20/25 Creatinine 1.93 mg/dL (0.5-1.4) H 02/20/25 Assessment & Plan Assessment & Plan (1) CKD stage G3b/A1, GFR 30-44 and albumin creatinine ratio <30 mg/g: Code(s): N18.32 - Chronic kidney disease, stage 3b Category: Medical (2) Essential hypertension: Code(s): I10 - Essential (primary) hypertension Category: Medical Plan 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 He is hypertensive and diabetic with cardiomyopathy. His volume status is fair. He does not have any symptoms of hypervolemia. His blood pressure has been at goal. He is a great candidate for [facility] [place] [facility] with time. His twenty-four urine collection for creatinine clearance was 36 mls/minute. He is avoiding nonsteroidal anti-inflammatory medications. He is on Ozempic. I did not make any other medication changes today but rather ordered follow-up blood work. All his questions were answered. Follow-up appointment given Orders: Orders Electrolytes 4 Months N18.32 - Chronic kidney disease, stage 3b Blood Urea Nitrogen 4 Months N18.32 - Chronic kidney disease, stage 3b Creatinine 4 Months N18.32 - Chronic kidney disease, stage 3b Parathyroid Hormone Intact 4 Months N18.32 - Chronic kidney disease, stage 3b Vitamin D 25-OH Total 4 Months N18.32 - Chronic kidney disease, stage 3b Medications: Discontinued indomethacin administer with food or milk Discontinued Reason: Doctor's Order 50 mg PO TID 10 caps 0RF Coding Level of Care Code Est Pt Level 4 (96198) Diagnoses CKD stage G3b/A1, GFR 30-44 and albumin creatinine ratio <30 mg/g N18.32 Essential hypertension I10
[2025-02-23 12:19] VITALS: BP 120/60; PULSE 72; O2SAT 100; BMI 27.6
== END 2025-02-23 12:56 | disposition home or self-care (01) ==
LOC: HO.HKA 11:49
PROVIDERS: PCP Nurse Practitioner Family; Visit Provider Internal Medicine Nephrology
DX: N18.32 Chronic kidney disease, stage 3b (principal); I10 Essential (primary) hypertension
CPT/HCPCS: 99214

== ENCOUNTER → 2025-02-23 11:48 | Outpatient (BNVA) | payer MEDICARE, OTHER, SELFPAY | PROVIDERS: PCP Nurse Practitioner Family; Visit Provider Internal Medicine Nephrology | DX: I12.9 Hypertensive chronic kidney disease with stage 1 through stage 4 chronic kidney disease, or unspecified chronic kidney disease (principal); N18.32 Chronic kidney disease, stage 3b | CPT/HCPCS: 99212 ==

== ENCOUNTER 2025-03-02 12:49 | Outpatient (AMB) | payer MEDICARE, OTHER, SELFPAY ==
--- NOTE | 2025-03-02 12:52 | A.OFFVIS_ITS ---
Vital Signs 03/02/25 12:53 Height 5 ft 9 in Weight 191 lb 2.252 oz BMI 28.2 BP 102/60 Blood Pressure Location Rt brachial Position Sitting Pulse 70 Pulse Source Pulse Oximeter Pulse Oximetry (%) 99 Oxygen Delivery Method Room Air Intake Visit Reasons: Type II Diabetes Intake Note: Patient present today for Type 2 Diabetes Mellitus Last Diabetic eye exam:11/2024 Last Podiatry Visit: 02/2025 Random Glucose: 127 mg/dl HgA1C: Due6.3% Accompanied by: Self / Same As Patient Allergies Iodinated Contrast Media [IV Dye, Iodine Containing] Allergy (Severe, Verified 03/02/25 13:04) SWELLING sulfamethoxazole [From Bactrim] Allergy (Severe, Verified 03/02/25 13:04) SWELLING RASH tetracycline [Tetracycline] Allergy (Severe, Verified 03/02/25 13:04) SWELLING , RASH trimethoprim [From Bactrim] Allergy (Severe, Verified 03/02/25 13:04) SWELLING RASH Sulfa (Sulfonamide Antibiotics) Allergy (Unknown, Verified 03/02/25 13:04) hives IVP dye Allergy (Unknown, Uncoded 12/20/24 13:24) Anaphylaxis Renée Dry Allergy (Unknown, Uncoded 12/20/24 13:24) rash tetracycline Allergy (Unknown, Uncoded 12/20/24 13:24) hives Medication List - Last Reconciled 03/02/25 by Bibi Cruz PA-C aspirin 81 mg PO DAILY atenolol 50 mg PO DAILY atorvastatin 80 mg PO BEDTIME blood sugar diagnostic (FreeStyle Lite Strips) 1 strip miscellaneous BID colchicine 0.6 mg PO DAILY cyanocobalamin (vitamin B-12) ER 1,000 mcg PO DAILY fenofibrate nanocrystallized (Tricor) 145 mg PO DAILY flash glucose scanning reader (FreeStyle Vivek 14 Day [place]) As directed flash glucose sensor (FreeStyle Vivek 14 Day Sensor kit) USE DIRECTED AND CHANGE EVERY 14 DAYS, 90 days foot care products Wear diabetic shoes daily As directed foot care products Diabetic shoes and insoles. Use daily as directed furosemide 20 mg PO DAILY insulin degludec (Tresiba FlexTouch U-200 insulin) 10 units (0.05 mL) subcut .nightly lansoprazole 30 mg PO DAILY lorazepam 0.5 mg PO BEDTIME PRN nitroglycerin 0.4 mg sublingual Q5M PRN pen needle, diabetic (BD Ultra-Fine Micro Pen Needle) As directed; twice daily semaglutide (Ozempic) 2 mg (0.75 mL) subcut QWEEK tapentadol ER (Nucynta ER) 50 mg PO BID HPI HPI Type II Diabetes: Details: Patient is an 84-year-old male with a significant past medical history of stage 3b kidney disease, diabetic neuropathy, type 2 diabetes, hypertension, PAD and hyperlipidemia presenting today for a diabetic follow-up. -He wants to switch pcp offices Endo: His A1c is 6.3. He is currently on tresiba 10 units, Ozempic 2 mg weekly. rarely uses tresiba -weight is stable cgm-usage is at the 66%. He is within target 97% time, 3% high, 0% hypoglycemic. Vasc: He follows with [facility]. 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 He is on atenolol 50 mg, furosemide 20 mg. Cholesterol is controlled with atorvastatin 80 mg and Tricor 145 mg. Nephro: Follows with Dr. Hill. Discussed possible jardiance and he declines. [facility] Medical History (Updated 03/02/25 @ 12:59 by Lexi Eddy CMA) Aneurysm of left leg Surgery, elective Obesity due to excess calories Hx of aneurysm Hx of myocardial infarction Carpal tunnel syndrome Throat cancer Ischemic colitis Pacemaker Diverticulitis BPH (benign prostatic hyperplasia) Type 2 diabetes mellitus with chronic kidney disease Chronic kidney disease, stage 3 Type 2 diabetes mellitus with diabetic polyneuropathy Essential hypertension Hyperlipidemia LDL goal <70 Surgical History (Updated 03/02/25 @ 12:59 by Lexi Eddy CMA) History of back surgery H/O neck surgery History of prostate surgery Hx of angioplasty Hx of hernia repair Hx of tonsillectomy Family History Father Prostate cancer Mother Breast cancer Diabetes Social History Household Members: Spouse Patient Tobacco Use Status: Former Tobacco user Tobacco use type: Cigarette Cigarettes Per Day: 10 Years Smoked: 40 Physical Exam Vital Signs: Last Vital Signs Pulse 70 03/02/25 12:53 BP 102/60 03/02/25 12:53 Pulse Ox 99 03/02/25 12:53 Oxygen Delivery Method Room Air 03/02/25 12:53 BMI result Body Mass Index 28.2 Const Orientation/consciousness: patient oriented x3 HEENT Ears: hearing grossly normal bilaterally Neck Thyroid: Thyroid normal Lymphatic: no lymphadenopathy noted Resp Auscultation: clear to auscultation bilaterally Cardio Rate: regular rate Rhythm: regular rhythm Heart sounds: S1 normal heart sound present and S2 normal heart sound present Skin General skin exam: no rashes or lesions noted Neuro General: patient oriented x3, gait normal and no focal motor deficits Extrem Other: s/p 4th right toe amputation. Good capillary refill. Skin intact. No signs of infection. Results Reviewed Results Reviewed: Laboratory Last Values Glucose (Clinic) 127 mg/dL (60-115) H 03/02/25 13:09 Laboratory Tests 10/13/24 12/01/24 02/20/25 14:07 12:56 10:07 Sodium 141 Potassium 4.1 Chloride 107 Carbon Dioxide 23 Anion Gap 15 BUN 27 H Creatinine 1.93 H Estimated GFR 33 Glucose (Clinic) 125 H Hgb A1c (Clinic) 6.5 H Assessment & Plan Assessment & Plan (1) Type 2 diabetes mellitus with chronic kidney disease: Code(s): E11.22 - Type 2 diabetes mellitus with diabetic chronic kidney disease Category: Medical Qualifiers: Diabetes mellitus care home insulin use: with care home use Chronic kidney disease stage: stage 4 (severe) Qualified Code(s): E11.22 - Type 2 diabetes mellitus with diabetic chronic kidney disease; N18.4 - Chronic kidney disease, stage 4 (severe); 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 Continue current regimen (3) Hyperlipidemia LDL goal <70: Code(s): E78.5 - Hyperlipidemia, unspecified Category: Medical Plan: Advised him to get his lipids and LFTs checked. He is on fenofibrate and atorvastatin. Continue current regimen Orders: Orders Comprehensive Met. Panel Today E11.22 - Type 2 diabetes mellitus with diabetic chronic kidney disease, E78.5 - Hyperlipidemia, unspecified, I10 - Essential (primary) hypertension, N18.4 - Chronic kidney disease, stage 4 (severe), Z79.4 - assisted (current) use of insulin Hemoglobin A1c Today . 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 - Type 2 diabetes mellitus with diabetic chronic kidney disease, E78.5 - Hyperlipidemia, unspecified, I10 - Essential (primary) hypertension, N18.4 - Chronic kidney disease, stage 4 (severe), Z79.4 - assisted (current) use of insulin Medications: New atenolol 50 mg PO DAILY 90 tabs 3RF Coding Level of Care Code Est Pt Level 4 (90744) Complex EM visit Add On G2211 Diagnoses Type 2 diabetes mellitus with stage 4 chronic kidney disease, with long-term current use of insulin ; N18.4; Z79.4 Diabetes mellitus care home insulin use: with care home use Chronic kidney disease stage: stage 4 (severe) Essential hypertension I10 Hyperlipidemia LDL goal <70 E78.5
[2025-03-02 12:53] VITALS: BP 102/60; PULSE 70; O2SAT 99; BMI 28.2
--- OUTSIDE RECORDS SUMMARY | 2025-03-02 13:05 | XMS_ITS | Clinical Summary ---
Author Organization [facility] Address [address] [place] [address] Phone Care Team Providers Care Insurance Appraiser Name Role Phone Marni Ferguson MD Primary Care Provider Allergies Active Allergy Reactions [...] flash glucose scanning reader (FreeStyle Vivek 2 Burgaw) misc 1 Product by Does not apply [...] tabletIndication s:Gangrene of toe of right foot ([facility] V24, [facility] V28),Ischemic leg Take 2 tablets (10 mg [...] Date Gangrene of toe of right foot ([facility] V24, [facility] V28) 02/05/2025 Ischemic leg 01/08/2025 Occlusion of arterial bypass graft ([facility] V24) 10/26/2024 Acute deep vein thrombosis ( DVT) of femoral vein of right lower extremity ([facility] V24, [facility] V28) 10/26/2024 Diabetic neuritis ([facility] V24, [facility] V28) Hypertension 08/29/2024 Lumbar spondylosis 09/22/2022 Overview (08/29/2024): Last Assessment & Plan: Mr. Omalley underwent bilateral radiofrequency ablation on 10/08/2022 at [facility] with some improvement lasting 1 month. He [...] Bacterial pneumonia 04/21/2022 CHF (congestive heart failure) ([facility] V24, [facility] V28) 04/21/2022 Gastrointestinal hemorrhage 04/21/2022 Neuropathy 04/21/2022 SSS (sick sinus syndrome) ([facility] V24, [facility] V28) 04/21/2022 Overview (08/29/2024): Last Assessment & Plan: This is been stable. He is status post pacemaker generator replacement as he was end-of-life. This is working well. He is feeling better now that his heart rates are in the higher range. Acute hypoxemic respiratory failure ([facility] V24, [facility] V28) 04/21/2022 Heart block AV complete ([facility] V24, [facility] V2 8) 04/01/2022 AAA (abdominal aortic aneurysm) ([facility] V24) Overview (08/29/2024): Last Assessment & Plan: He had a repeat echo done recently. This showed no changes when compared to before. He has been followed by vascular surgery. Malignant neoplasm of right vocal cord ([facility] V24, [facility] V28) 11/06/2020 CKD (chronic kidney disease) stage 3, GFR 30-59 ml/min ([facility] V24, [facility] V28) 11/06/2020 Anxiety 08/09/2020 BPH (benign prostatic hyperplasia) 08/09/2020 Coronary artery disease invo lving [place] heart without angina pectoris 08/09/2020 Overview (08/29/2024): [...] lifestyle choices and diet. Peripheral vascular disease ([facility] V24) 2019 Overview (08/29/2024): Last Assessment & Plan: This is stable. Again this is being followed by Dr. Banks. He states that he will be getting a lower extremity arterial study done in the next couple weeks. ST elevation myocardial infa rction (STEMI) ([facility] V24, [facility] V28) 08/09/2020 Overview (08/29/2024): [...] low cholesterol diet and exercise. 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 ([facility] V24, [facility] V28) 08/09/2020 Type 2 diabetes mellitus wit h renal manifestations ([facility] V24, [facility] V28) 08/09/2020 Resolved Problems Problem Noted Date Diagnosed Date Resolved Date Critical limb ischemia of ri ght lower extremity ([facility] V24, [facility] V28) 01/08/2025 Epistaxis 10/28/2024 10/28/2024 Encounters Date Type Department Care Team Description 02/27/2025 8:30 AM EDT Office Visit [facility] - [facility] [address] [place] [phone] Andie Chua PA PAD (peripheral artery disease) ([facility] V24) (Primary Dx); Infrarenal abdominal aortic aneurysm (AAA) without rupture ([facility] V24); History of amputation of fourth toe ([facility] V24) 02/21/2025 7:25 PM EDT Ancillary Procedure [facility] - [facility] [address] [facility] [address] [place] [address] 02/07/2025 1:22 PM EDT Anesthesia Event [facility] Main OR [address] [place] [phone] Kinjal Katz MD Millay, Julia, CRNA 02/07/2025 12:30 PM EDT - 02/07/2025 1:45 PM EDT Surgery [facility] Main OR [address] [place] [phone] Darren, Ahmet S, MD INCISION DRAINAGE RIGHT FOOT 4TH MTP BONE CORTEX, WASHOUT AND WOUND CLOSURE & RIGHT FOOT SUTURE REMOVAL 02/06/2025 1:00 PM EDT - 02/06/2025 2:[address] [facility] [place] [address] [place] [phone] Ahmet Banks MD RIGHT 4TH TOE OPEN AMPUTATION, REMOVAL SUTURE RIGHT INNER THIGH 02/06/2025 9:42 AM EDT An[address] Event [facility] [place] [address] [place] [phone] Ezekiel Hudson MD Kriz, Petra, MD 02/05/2025 2:26 PM EDT - 02/09/2025 5:33 PM EDT Hospital Encounter [facility] Medical Surgical Unit [address] [place] [phone] Ju Valdez MD Surendran, Anupama, MD Zipagan, James T, MD Gangrene of toe of right foot ([facility] V24, [facility] V28) (Primary Dx); Gangrene ([facility] V24, [facility] V28); Osteomyelitis of fourth toe of right foot ([facility] V24, [facility] V28); Ischemic leg Discharge Disposition: [place] [facility] [place]/05/2025 1:15 PM EDT Office Visit V[facility] - [facility] [address] [place] [phone] Ahmet Banks MD Critical limb ischemia of right lower extremity with ulceration of foot ([facility] V24, [facility] V28) (Primary Dx); PAD (peripheral artery disease) ([facility] V24); Infrarenal abdominal aortic aneurysm (AAA) without rupture ([facility] V24) 01/17/2025 11:00 AM EDT - 01/17/2025 3:[address] [facility] [place] [address] [place] [phone] Ahmet Banks MD RIGHT FEMORAL DORSALIS PEDIS BYPASS WITH CRYOPRESERVED VEIN, RIGHT SUPERFICIAL FEMORAL ARTERY ENDARTERECTOMY WITH BIOLOGIC PATCH, REDO BYPASS [[id number] (CPT??)] 01/17/2025 10:52 AM EDT Anesthesia Event [facility] Main OR [address] [place] [phone] Bharathi Maguire DO Hard, Shannon, CRNA 01/17/2025 9:25 AM EDT - 01/21/2025 10:04 AM EDT Hospital Encounter [facility] Intermediate Care Unit [address] [place] [phone] Ahmet Banks MD Levrault, Richard, DO Flores, Carlos M, MD Seralathan, Manikandan, MD Critical limb ischemia of right lower extremity (CMS/HCC V24, CMS/HCC V28) Discharge Disposition: [place] [facility] [place]/15/2025 Telephone [facility] - [facility] [address] [place] [phone] Ahmet Banks MD Med Management 01/11/2025 Telephone [facility] - [facility] [address] [place] [phone] Ahmet Banks MD cardiac Clearance 01/11/2025 Telephone [facility] - [address] [place] [phone] Marni Ferguson MD 01/09/2025 6:00 PM EDT - 01/09/2025 8:00 PM EDT Surgery [facility] [address] [place] [phone] Ahmet Banks MD Angiography lower ext right 01/08/2025 7:30 AM EDT - 01/10/2025 1:15 PM EDT Hospital Encounter [facility] Medical Surgical Unit [address] [place] [phone] Ju Valdez MD Mohani, Priya, MD Critical limb ischemia of right lower extremity (CMS/HCC V24, CMS/HCC V28) (Primary Dx); Ulcer of toe of right foot, unspecified ulcer stage (CMS/HCC V24, CMS/HCC V28); Ischemic leg; Infrarenal abdominal aortic aneurysm (AAA) without rupture ([facility] V24); Occlusion of arterial bypass graft, subsequent encounter Discharge Disposition: [place] [facility] [place]/05/2025 11:45 AM EDT Office Visit Vascular Surgery - [address] [phone] Ahmet Banks MD Critical limb ischemia of right lower extremity with ulceration of foot ([facility] V24, [facility] V28) (Primary Dx) 12/22/2024 11:45 AM EDT Office Visit Vascular Surgery [address] [phone] Ahmet Banks MD Peripheral vascular disease ([facility] V24) (Primary Dx); PAD (peripheral artery disease) ([facility] V24); Acute deep vein thrombosis (DVT) of femoral vein of right lower extremity ([facility] V24, [facility] V28) 12/11/2024 Telephone V[facility] Surgery [address] [phone] Ahmet Banks MD Provider Call Back from Last 3 Months Immunizations Name Administration [...] Site/Laterality Comments KNEE ARTHROSCOPY 2009 Right PROCEDURE: ID ARTHROSCOPY KNEE DIAGNOSTIC W/WO SYNOVIAL BX SPX; COMMENT: Meniscus TURP / TRANSURETHRAL INCISIO N / DRAINAGE PROSTATE 2004 PROCEDURE: HISTORICAL TURP OTHER SURGICAL HISTORY PROCEDURE: ID DUP-SCAN LXTR ART/ARTL BPGS UNI/LMTD STUDY; COMMENT: Angioplasty and stenting of the left leg PACEMAKER IMPLANT PROCEDURE: HISTORICAL PACEMAKER COLONOSCOPY 2011 PROCEDURE: HISTORICAL COLONOSCOPY OTHER SURGICAL HISTORY PROCEDURE: ID BIOPSY OROPHARYNX; COMMENT: Throat cancer had radiation x6 weeks [facility] EYE SURGERY PROCEDURE: HISTORICAL EYE SURGERY; COMMENT: [place] TONSILLECTOMY PROCEDURE: HISTORICAL TONSILLECTOMY OTHER SURGICAL HISTORY PROCEDURE: ---- HEMORRHOIDS ---- HERNIA REPAIR Bilateral PROCEDURE: REPAIR INGUINAL HERNIA CORONARY ARTERY BYPASS GRAFT 1996 PROCEDURE: HISTORICAL CABG; COMMENT: x4 NECK SURGERY PROCEDURE: HISTORICAL NECK SURGERY CARPAL TUNNEL RELEASE Right PROCEDURE: ID NEUROPLASTY &/TRANSPOS MEDIAN NRV CARPAL TUNNE; COMMENT: dr. cazares BACK SURGERY 10/08/2022 Bilateral PROCEDURE: HISTORICAL BACK SURGERY; COMMENT: Bilateral L3, L4 and L5 radiofrequency neurotomy Dr. Sahu OTHER SURGICAL HISTORY 06/15/2023 PROCEDURE: ID SLCTV CATHJ 3RD+ ORD SLCTV ABDL PEL/LXTR BRNCH OTHER SURGICAL HISTORY 06/15/2023 PROCEDURE: ID SLCTV CATHJ EA 2ND+ ORD ABDL PEL/LXTR ART BRNCH OTHER SURGICAL HISTORY 06/15/2023 PROCEDURE: X-RAY EXAM OF ARM/LEG ARTERY OTHER SURGICAL HISTORY 06/15/2023 PROCEDURE: ULTRASOUND GUIDANCE FOR VASCULAR AC OTHER SURGICAL HISTORY 06/01/2024 PROCEDURE: ID EVASC RPR DPLMNT [id number] NDGFT OTHER SURGICAL HISTORY 06/01/2024 PROCEDURE: ID OPN ILIAC ART EXPOS PROSTH/ILIAC OCCLS EVASC UNI OTHER SURGICAL HISTORY 06/01/2024 PROCEDURE: ID PERQ ACCESS & CLOSURE FEM ART FOR DELIVERY NDGFT OTHER SURGICAL HISTORY 06/01/2024 PROCEDURE: ID REVASC INTRAVASC LITHOTRIPSY OTHER SURGICAL HISTORY 06/28/2024 Left PROCEDURE: ID BYP OTH/THN VEIN FEM-ANT TIBL PST TIBL/PRONEAL [...] DX:Pacemaker ST elevation myocardial infa rction (STEMI) ([facility] V24, [facility] V28) 08/09/2020 DX:ST elevation hesham cardial infarction (STEMI) ([facility]) Throat cancer ([facility] V24, [facility] V28) 08/09/2020 DX:Throat cancer (HCC); COMM ENT: 2020: received RT Hyperlipidemia 08/09/2020 DX:Hyperlipidemi a HTN (hypertension) 08/09/2020 DX:HTN (hyper tension) History of diverticulitis 08/09/2020 DX:His tory of diverticulitis Peripheral vascular disease ([facility] V24) 08/09/2020 DX:Peripheral vascular disea se ([facility]) Diabetic neuritis ([facility] V 24, [facility] V28) 08/09/2020 DX:Diabetic neuritis ([facility]) Gastroesophageal reflux dise ase without esophagitis 08/09/2020 DX:Gastroesophageal reflux d isease without esophagitis Anxiety 08/09/2020 DX:Anxiety Malignant neoplasm of right vocal cord ([facility] V24, [facility] V28) 11/06/2020 DX:Malignant neoplasm of ri ght vocal cord ([facility]) 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) [...] Sign Reading Time Taken Comments Blood Pressure 131/68 02/27/2025 8:28 AM EDT Pulse 69 02/27/2025 8:28 AM EDT Temperature 36.2 ??C (97.2 ??F) 02/09/2025 7:40 AM ED T Respiratory Rate 20 02/09/2025 7:40 AM EDT Oxygen Saturation 95% 02/09/2025 7:40 AM EDT Inhaled Oxygen Concentration - - Weight 85.3 kg (188 lb) 02/27/2025 8:28 AM EDT Height 172.7 cm (5' 8 ) 02/27/2025 8:28 AM EDT Body Mass Index 28.59 02/27/2025 8:28 AM EDT Plan of Treatment Upcoming Encounters Date Type Department Care Team (Late st Contact Info) Description 05/24/2025 11:00 AM EDT Ancillary Procedure [facility] - [address] [place] [address] 05/24/2025 12:00 PM EDT Ancillary Procedure [facility] - [address] [place] [phone] 06/25/2025 11:00 AM EDT Office Visit V[facility] Surgery - [facility] [address] [place] [phone] Ahmet Banks MD [address] [place] [address] Health Maintenance Due Date Last Done Comments [...] this topic Medical Devices Implanted Type Area Manufacturing Assistant Device Identifier Shelf Expiration Date Model / Serial / Lot Medt-Card Iselin Xt Mri [id number] Implanted: (Quantity not on file) Cardiac Pacemaker [employer] - CARDIAC RHYTH-CRDM KENDELL XT DR LAMA [id number] / [id number] / Hemostat Absorb Surgicel 2x4in Fibrillar - Sn/A - [id number] Implanted:Qty : 1 on 01/17/2025 by Ahmet Banks MD at [facility] Hemostasis Right: Leg Contact [employer] 07/03/20271961 / N/A / [id number] Sealant Fibrin Vistaseal 4ml - [id number] - [id number] Implanted:Qty : 1 on 01/17/2025 by Ahmet Banks MD at [facility] Hemostasis Right: Leg J[employer]J [employer] [id number] 07/18/2026 VST04 / [id number] / [id number] Hemostat Absorb 1x2 Surgicel Fibrillar - Sn/A - [id number] Implanted:Qty : 1 on 02/07/2025 by Ahmet Banks MD at [facility] Hemostasis Right: Foot [employer] 07/03/20261960 / N/A / [id number] Vein Saphns 50-59cm A B Ab O Blood Type - [id number] - [id number] Implanted:Qty : 1 on 01/17/2025 by Ahmet Banks MD at [facility] [employer] Right: Leg [employer] 04/05/2029 SV103 / [id number] / [id number] 128 Patch Biol Xenosure .8x8cm - Sn/A - [id number] Implanted:Qty : 1 on 01/17/2025 by Ahmet Banks MD at [facility] Vascular Grafts Right: Leg [employer] [facility] 12/29/2029 E0.8P8 / N/A / [id number] Procedures Procedure Name Priority Date/Time Associated Diagnosis Comments CARDIAC DEVICE CHECK- REMOTE- MURJ Routine 02/21/2025 7:24 PM EDT CBC WITH AUTO DIFFERENTIAL Routine 02/09/2025 6:20 AM EDT CBC AND DIFFERENTIAL Routine 02/09/2025 6:20 AM EDT BASIC METABOLIC PANEL Routine 02/09/2025 6:20 AM EDT POCT GLUCOSE BLOOD Routine 02/08/2025 7: 48 PM EDT POCT GLUCOSE BLOOD Routine 02/08/2025 3: 59 PM EDT VANCOMYCIN, TROUGH Timed 02/08/2025 1 :11 PM EDT POCT GLUCOSE BLOOD Routine 02/08/2025 11 :17 AM EDT POCT GLUCOSE BLOOD Routine 02/08/2025 8: 03 AM EDT CBC WITH AUTO DIFFERENTIAL Routine [...] Osteomyelitis of fourth toe of right foot ([facility] V24, [facility] V28) CULTURE TISSUE WITH GRAM STAIN Routine 02/07/2025 1:48 PM EDT Osteomyelitis of fourth toe of right foot ([facility] V24, [facility] V28) TH AN LMA(NO CHARGE) Routine 02/07/2025 1:32 PM EDT INCISION DRAINAGE EXTREMITY LOWER 02/07/2025 1:25 PM EDT Osteomyelitis of fourth toe of right foot ([facility] V24, [facility] V28) POCT GLUCOSE BLOOD Routine 02/07/2025 11 [...] EXAM Routine 02/06/2025 10:16 AM EDT Gangrene ([facility] V24, [facility] V28) TH AN LMA(NO CHARGE) Routine 02/06/2025 10:02 AM EDT AMPUTATION TOE 02/06/2025 9:38 AM EDT Gangrene ([facility] V24, [facility] V28) POCT GLUCOSE BLOOD Routine 02/06/2025 8: [...] LINE (CHARGE) Routine 01/17/2025 11:24 AM EDT ID BYPASS GRAFT W OTHER THAN VEIN FEMORAL-ANT/POST [...] V24, CMS/HCC V28) POCT GLUCOSE BLOOD Routine 01/09/2025 4: [...] AND DIFFERENTIAL STAT 01/08/2025 8:32 AM EDT HEMOGLOBIN A1C Routine 03/22/2024 URINE ALBUMIN CREATININE RATIO Routine 09/08/2023 LIPID PANEL Routine 09/08/2023 DIABETES FOOT EXAM Routine 09/07/2023 from Last 3 Months or Most Recently Relevant to Health Maintenance Results * Cardiac device check - Remote- MURJ (02/21/2025 7:24 PM EDT) Date Time Interrogation Session [id number] CV DEVICE CHECK Type Interrogation Session Remote CV DEVICE CHECK Implantable Pulse Generator Manufacturing Assistant MDT CV DEVICE CHECK Implantable Pulse Generator Type IPG CV DEVICE CHECK Implantable Pulse Generator Model [place] XT MRI [id number] CV DEVICE CHECK Implantable Pulse Generator Serial Number [id number] CV DEVICE CHECK Implantable Pulse Generator Implant Date 20220417 CV DEVICE CHECK Battery Remaining Longevity 101.0 CV DEVICE CHECK Battery Voltage 3.000 CV D EVICE CHECK Battery MENDING CARRIER Trigger 2.625 CV DEVICE CHECK Battery Status Middle of Service CV DEVICE CHECK Jag Statistic RA Percent Paced 98.75 CV DEVICE CHECK Jag Statistic RV Percent Paced 99.82 CV DEVICE CHECK Atrial Tachy Statistic AT/AF [place] Percent 0.00 CV DEVICE CHECK Lead Channel [...] DEV ICE PROCEDURES Final Result * (ABNORMAL) CBC auto differential (02/09/2025 6:20 AM EDT) Only the most recent of10 resultswithin the time period is included. [facility] WBC 6.3 4.8 - 10.8 K/mcL LAB HEMETOLOGY METHOD 02/09/2025 7:14 AM [facility] RBC 2.40(L) 4.50 - 5.50 M/mcL LAB HEMETOLOGY METHOD 02/09/2025 7:14 AM [facility] Hemoglobin 8.3(L) 13.5 - 17.5 g/dL LAB HEMETOLOGY METHOD 02/09/2025 7:14 AM [facility] Hematocrit 25.5(L) 42.0 - 54.0 % LAB HEMETOLOGY METHOD 02/09/2025 7:14 AM [facility] MCV 108.1(H) 79.0 - 98.0 FL LAB HEMETOLOGY METHOD 02/09/2025 7:14 AM [facility] MCH 35.2(H) 27.0 - 32.0 pcg LAB HEMETOLOGY METHOD 02/09/2025 7:14 AM [facility] MCHC 32.5 32.0 - 37.0 g/dL LAB HEMETOLOGY METHOD 02/09/2025 7:14 AM [facility] RDW 16.8(H) 11.0 - 15.0 % LAB HEMETOLOGY METHOD 02/09/2025 7:14 AM [facility] Platelets 206 130 - 400 K/mcL LAB HEMETOLOGY METHOD 02/09/2025 7:14 AM [facility] MPV 9.7 7.0 - 11.0 FL LAB HEMETOLOGY METHOD 02/09/2025 7:14 AM [facility] NRBC 0.0 <1.0 % LAB HEMETOLOGY METHOD 02/09/2025 7:14 AM [facility] NRBC Absolute 0.00 <0.10 K/mcL LAB HEMETOLOGY METHOD 02/09/2025 7:14 AM [facility] Neutrophils Relative 57.5 % LAB HEMETOLOGY METHOD 02/09/2025 7:14 AM [facility] Lymphocytes Relative 19.7 % LAB HEMETOLOGY METHOD 02/09/2025 7:14 AM [facility] Monocytes Relative 13.9 % LAB HEMETOLOGY METHOD 02/09/2025 7:14 AM [facility] Eosinophils Relative 7.6 % LAB HEMETOLOGY METHOD 02/09/2025 7:14 AM [facility] Basophils Relative 1.0 % LAB HEMETOLOGY METHOD 02/09/2025 7:14 AM [facility] Immature Granulocytes Relative 0.3 % LAB HEMETOLOGY METHOD 02/09/2025 7:14 AM [facility] Neutrophils Absolute 3.63 1.50 - 7.00 K/mcL LAB HEMETOLOGY METHOD 02/09/2025 7:14 AM [facility] Lymphocytes Absolute 1.24 1.00 - 5.00 K/mcL LAB HEMETOLOGY METHOD 02/09/2025 7:14 AM [facility] Monocytes Absolute 0.88 0.20 - 1.00 K/mcL LAB HEMETOLOGY METHOD 02/09/2025 7:14 AM [facility] Eosinophils Absolute 0.48 0.00 - 0.50 K/mcL LAB HEMETOLOGY METHOD 02/09/2025 7:14 AM EDT [facility] Basophils Absolute 0.06 0.00 - 0.20 K/mcL LAB HEMETOLOGY METHOD 02/09/2025 7:14 AM T [facility] Immature Granulocytes Absolute 0.02 0.00 - 0.03 K/mcL LAB HEMETOLOGY METHOD 02/09/2025 7:14 AM [facility] Blood Venous blood specimen / Unknown Venipuncture / Unknown 02/09/2025 6:20 AM EDT 02/09/2025 6:58 AM EDT us Ulisses Shook MD LAB BLOOD ORDERABLES Final Re sult [facility] [address] [place] [address], [place] [phone] * (ABNORMAL) Basic metabolic panel (02/09/2025 6:20 AM EDT) Only the most recent of12 resultswithin the time period is included. Sodium 139 133 - 145 mmol/L LAB CHEMISTRY METHOD 02/09/2025 7:41 AM [facility] Potassium 3.8 3.5 - 5.5 mmol/L LAB CHEMISTRY METHOD 02/09/2025 7:41 AM [facility] Chloride 109 96 - 110 mmol/L LAB CHEMISTRY METHOD 02/09/2025 7:41 AM [facility] CO2 23 21 - 32 mmol/L LAB CHEMISTRY METHOD 02/09/2025 7:41 AM [facility] Anion Gap 7 3 - 11 LAB CHEMISTRY METHOD 02/09/2025 7:41 AM [facility] Glucose 106(H) 70 - 100 mg/dL LAB CHEMISTRY METHOD 02/09/2025 7:41 AM [facility] BUN 25 5 - 25 mg/dL LAB CHEMISTRY METHOD 02/09/2025 7:41 AM [facility] Creatinine 1.80(H) 0.70 - 1.30 mg/dL LAB CHEMISTRY METHOD 02/09/2025 7:41 AM EDT [facility] LAB eGFR 36(L) >=60 mL/min/1. 73m2 LAB CHEMISTRY METHOD 02/09/2025 7:41 AM EDT [facility] Comment:Calculation based on the Chronic Kidney Disease Epidemiology Collaboration (CKD-EPI) equation refit without adjustment for race. BUN/Creatinine Ratio 13.9 LAB CHEMISTRY METHOD 02/09/2025 7:41 AM EDT [facility] Calcium 8.6 8.5 - 10.5 mg/dL LAB CHEMISTRY METHOD 02/09/2025 7:41 AM EDT [facility] Blood Venous blood specimen / Unknown Venipuncture / Unknown 02/09/2025 6:20 AM EDT 02/09/2025 6:57 AM EDT Ulisses Shook MD LAB BLOOD ORDERABLES Final Re sult [facility] [address] [place] [address], [place] [phone] * (ABNORMAL) POCT Glucose, blood (02/08/2025 7:48 PM EDT) Only the most recent of37 resultswithin the time period is included. Glucose POCT 150(H) 70 - 100 mg/dL 02/08/2025 7:48 PM EDT [facility] Blood Capillary blood specimen / Unknown 02/08/2025 7:48 PM EDT 02/08/2025 7:49 PM EDT us Ulisses Shook MD LAB POINT OF CARE TE ST DOCKED DEVICE UNSOLICITED RESULTS Final Result Performing Organization Address City/[facility]/ZIP Co de Phone Number [facility] [address] [place] [address], [place] [phone] * Vancomycin, trough Please draw level 1 hour prior to vancomycin administration (02/08/2025 1:11 PM EDT) Vancomycin Trough 11.5 10.0 - 20.0 mcg/mL LAB CHEMISTRY METHOD 02/08/2025 2:11 PM EDT [facility] Blood Venous blood specimen / Unknown Venipuncture / Unknown 02/08/2025 1:11 PM EDT 02/08/2025 1:21 PM EDT us Andie CHACON LAB BLOOD ORDERABLES Final Res ult [facility] [address] [place] [address], [place] [phone] * XR Foot 2 Views Right (02/07/2025 [...] Signed Date: 02/07/2025 15:11 ET Workstation ID: [id number] Transcribed By: Self Edit Transcribed Date: 02/07/2025 [...] Signed Date: 02/07/2025 15:11 ET Workstation ID: [id number] Transcribed By: Self Edit Transcribed Date: 02/07/2025 15:11 ET us Andie CHACON IMG XR PROCEDURES Final Result * Tissue exam (02/07/2025 1:49 PM EDT) Only the most recent of3 resultswithin the time period is included. Final Diagnosis Right 4th metatarsal bone margin: -VIABLE APPEARING BONE 02/09/2025 11:57 AM EDT [facility] Gross Description A. Foot, Right, Right [...] decalcification . TS 02/09/2025 11:57 AM EDT [facility] Disclaimer Unless otherwise specified, all tissue is 10% NB formalin fixed and paraffin embedded. 02/09/2025 11:57 AM EDT [facility] Bone Structure of right foot / Unknown 02/07/2025 1:49 PM EDT 02/07/2025 3:37 PM EDT us Ahmet Banks MD LAB PATHOLOGY ORDERABLES Final Result Performing Organization Address [facility]/ZIP Co de Phone Number [facility] [address] [place] [address], [place] [phone] * Culture tissue with gram stain (02/07/2025 1:48 PM EDT) Culture, Tissue No growth aerobically and anaerobically at 5 days. 02/12/2025 9:14 AM EDT [facility] Gram Stain Result No polymorphonuclear leukocytes, No epithelial cells, and No organisms noted 02/12/2025 9:14 AM EDT [facility] Tissue Structure of right foot / Unknown 02/07/2025 1:48 PM EDT 02/07/2025 2:27 PM EDT us Ahmet Banks MD LAB MICROBIOLOGY - GENERAL ORDE RABLES Final Result Performing Organization Address [facility]/ZIP Co de Phone Number [facility] [address] [place] [address], [place] [phone] * Culture bone (02/07/2025 1:48 PM EDT) Culture, Bone No growth aerobically and anaerobically at 5 days. 02/12/2025 9:15 AM EDT [facility] Gram Stain Result Rare Polymorphonuclear leukocytes 02/12/2025 9:15 AM EDT [facility] Gram Stain Result No Epithelial cells 02/12/2025 9:15 AM EDT [facility] Gram Stain Result No organisms seen 02/12/2025 9:15 AM EDT [facility] Bone Structure of right foot / Unknown 02/07/2025 1:48 PM EDT 02/07/2025 2:28 PM EDT us Ahmet Banks MD LAB MICROBIOLOGY - [facility] VLADIMIR GREWAL Final Result [facility] [address] [place] [address], * TH AN LMA(NO CHARGE) (02/07/2025 1:32 [...] maintained throughout Start Time: 02/07/2025 1:29 PM Orlando Umaña MD ANESTHESIA ORDERABLES Final Re sult * ECG 12 lead (02/07/2025 10:23 AM EDT) Only the most recent of2 resultswithin the time period is included. Ventricular Rate ECG 70 BPM GEMUSE Atrial Rate 70 BPM GEMUSE P-R Interval 282 ms GEMUSE QRS Duration 120 ms GEMUSE Q-T Interval 418 ms GEMUSE QTc 451 ms GEMUSE P Wave [place] -20 degrees GEMUSE R [place] -56 degrees GEMUSE T [place] 72 degrees GEMUSE ECG Interpretation AV dual-paced [...] during procedure: OR Anesthesiologist: Monae Borges MD Resident/LITHOGRAPH PRINTER: Romi Price CRNA Other anesthesia staff: LISA [...] LAB HEMETOLOGY METHOD 02/06/2025 6:55 AM EDT [facility] RBC 2.60(L) 4.50 - 5.50 M/[facility] LAB HEMETOLOGY METHOD 02/06/2025 6:55 AM EDT [facility] Hemoglobin 8.9(L) 13.5 - 17.5 g/dL LAB HEMETOLOGY METHOD 02/06/2025 6:55 AM EDT [facility] Hematocrit 28.3(L) 42.0 - 54.0 % LAB HEMETOLOGY METHOD 02/06/2025 6:55 AM EDT [facility] MCV 108.0(H) 79.0 - 98.0 FL LAB HEMETOLOGY METHOD 02/06/2025 6:55 AM EDT [facility] MCH 34.0(H) 27.0 - 32.0 pcg LAB HEMETOLOGY METHOD 02/06/2025 6:55 AM EDT [facility] MCHC 31.4(L) 32.0 - 37.0 g/dL LAB HEMETOLOGY METHOD 02/06/2025 6:55 AM EDT [facility] RDW 17.4(H) 11.0 - 15.0 % LAB HEMETOLOGY METHOD 02/06/2025 6:55 AM EDT [facility] Platelets 252 130 - 400 K/mcL LAB HEMETOLOGY METHOD 02/06/2025 6:55 AM EDT [facility] MPV 9.6 7.0 - 11.0 FL LAB HEMETOLOGY METHOD 02/06/2025 6:55 AM EDT [facility] NRBC 0.0 <1.0 % LAB HEMETOLOGY METHOD 02/06/2025 6:55 AM EDT [facility] NRBC Absolute 0.00 <0.10 K/mcL LAB HEMETOLOGY METHOD 02/06/2025 6:55 AM EDT [facility] Blood Venous blood specimen / Unknown Venipuncture / Unknown 02/06/2025 6:00 AM EDT 02/06/2025 6:23 AM EDT us Ju Valdez MD LAB BLOOD ORDERABLES Final Res ult [facility] [address] [place] [address], * Culture blood (02/05/2025 4:44 PM EDT) Only the most recent of2 resultswithin the time period is included. Culture, Blood No growth at 5 days 02/10/2025 5:01 PM EDT [facility] Blood Venous blood specimen / Unknown Venipuncture / Unknown 02/05/2025 4:44 PM EDT 02/05/2025 4:53 PM EDT us Anika CHACON LAB MICROBIOLOGY - GENERAL OR DERABLES Final Result Performing Organization Address [facility]/ZIP Co de Phone Number [facility] [address] [place] [address], [place] [phone] * Lactate, with reflex (02/05/2025 2:48 PM EDT) [facility] LACTIC ACID 1.5 0.4 - 2.0 mmol/L LAB CHEMISTRY METHOD 02/05/2025 3:35 PM EDT [facility] Blood Venous blood specimen / Unknown Venipuncture / Unknown 02/05/2025 2:48 PM EDT 02/05/2025 3:04 PM EDT us Anika CHACON LAB BLOOD ORDERABLES Final Re sult Performing Organization Address [facility]/ZIP Co de Phone Number [facility] [address] [place] [address], [place] [phone] * (ABNORMAL) Phosphorus (01/19/2025 6:00 AM EDT) Only the most recent of3 resultswithin the time period is included. Phosphorus 2.4(L) 2.5 - 4.5 mg/dL LAB CHEMISTRY METHOD 01/19/2025 7:29 AM EDT [facility] Blood Venous blood specimen / Unknown Venipuncture / Unknown 01/19/2025 6:00 AM EDT 01/19/2025 6:20 AM EDT [facility] BLOOD ORDERABLES Final R esult Performing Organization Address [facility]/ZIP Co de Phone Number [facility] [address] [place] [address], [place] [phone] * Magnesium (01/19/2025 6:00 AM EDT) Only the most recent of4 resultswithin the time period is included. Magnesium 2.4 1.9 - 2.6 mg/dL LAB CHEMISTRY METHOD 01/19/2025 7:29 AM EDT [facility] Blood Venous blood specimen / Unknown Venipuncture / Unknown 01/19/2025 6:00 AM EDT 01/19/2025 6:20 AM EDT Taj [facility] BLOOD ORDERABLES Final R esult Performing Organization Address [facility] de Phone Number [facility] [address] [place] [address], [place] [phone] * Calcium, ionized (01/19/2025 6:00 AM EDT) Only the most recent of2 resultswithin the time period is included. Calcium Ionized 4.82 4.50 - 5.30 mg/dL 01/19/2025 6:30 AM EDT [facility] Blood Venous blood specimen / Unknown Venipuncture / Unknown 01/19/2025 6:00 AM EDT 01/19/2025 6:19 AM EDT [facility] BLOOD ORDERABLES Final R esult Performing Organization Address [facility] Co de Phone Number [facility] [address] [place] [address], [place] [phone] * Routine EEG (01/18/2025 10:16 AM EDT) [...] LAB COAGULATION METHOD 01/18/2025 4:53 AM EDT [facility] Blood Venous blood specimen / Unknown Venipuncture / Unknown 01/18/2025 4:33 AM EDT 01/18/2025 4:42 AM EDT us Jelena CHACON LAB BLOOD ORDERABLES Final Re sult [facility] [address] [place] [address], [place] [phone] * Prothrombin Time with INR - STAT (01/18/2025 4:33 AM EDT) Only the most recent of3 resultswithin the time period is included. Protime 12.9 10.6 - 13.9 sec LAB COAGULATION METHOD 01/18/2025 4:53 AM EDT [facility] INR 1.0 LAB COAGULATION METHOD 01/18/2025 4:53 AM EDT [facility] Blood Venous blood specimen / Unknown Venipuncture / Unknown 01/18/2025 4:33 AM EDT 01/18/2025 4:42 AM EDT Jelena CHACON LAB BLOOD ORDERABLES Final Re sult Performing Organization Address [facility] Co de Phone Number [facility] [address] [place] [address], [place] [phone] * Troponin I high sensitivity (01/17/2025 5:39 PM EDT) Only the most recent of2 resultswithin the time period is included. [facility] High Sensitivity Troponin I 21 <=79 ng/L LAB CHEMISTRY METHOD 01/17/2025 6:21 PM EDT [facility] Blood Arterial blood specimen / Unknown Venipuncture / Unknown 01/17/2025 5:39 PM EDT 01/17/2025 5:51 PM EDT Narrative [facility] - 01/17/2025 6:21 PM EDT High levels of biotin in samples may falsely decrease hsTroponin values. ??Use caution when interpreting hsTroponin results in patients taking biotin who exhibit renal impairment (eGFR <60) or in patients taking more than 20 mg/day of biotin. Taj Huynh DO LAB BLOOD ORDERABLES Final R esult Performing Organization Address [facility] Co de Phone Number [facility] [address] [place] [address], [place] [phone] * CT Angio Head/Neck Stroke wo and/or [...] by: Simone Downey MD on 01/17/2025 18:18:56 us Divine Barb Aldridge CLINIC PHYSICIAN DIRECTOR IMG CT PROCEDURES Final Result * CT [...] by: Simone Downey MD on 01/17/2025 17:26:08 us Divine Aldridge NP IMG CT PROCEDURES Edited Result - Final * (ABNORMAL) Arterial blood gas (01/17/2025 4:55 PM EDT) pH, Arterial 7.39 7.35 - 7.45 pH [facility] pCO2, Arterial 37 35 - 45 mmHg 01/17/2025 5:01 PM EDT [facility] pO2, Arterial 74(L) 80 - 100 mmHg 01/17/2025 5:01 PM [facility] HCO3, Arterial 23.2 22.0 - 26.0 mmol/L 01/17/2025 5:01 PM [facility] O2 Sat, Arterial 97.2 95.0 - 98.0 % 01/17/2025 5:01 PM [facility] Base Excess, Arterial -2.2(L) -2.0 - 2.0 mmol/L 01/17/2025 5:01 PM [facility] Blood Arterial blood specimen / Unknown Arterial Puncture / Unknown 01/17/2025 4:55 PM EDT 01/17/2025 4:58 PM EDT us Divine L [place] CLINIC PHYSICIAN DIRECTOR LAB BLOOD ORDERABLES Fin al Result Performing Organization Address [facility] de Phone Number [facility] [address] [place] [address], [place] [phone] * (ABNORMAL) Creatine kinase and CKMB (01/17/2025 3:31 PM EDT) Pathologist [facility] Total CK 41 22 - 269 unit/L LAB CHEMISTRY METHOD 01/17/2025 4:54 PM EDT [facility] CK-MB <1.0(L) 1.0 - 3.6 ng/mL LAB CHEMISTRY METHOD 01/17/2025 4:54 PM EDT [facility] CK-MB Index <0.0(L) 0.0 - 5.0 LAB CHEMISTRY METHOD 01/17/2025 4:54 PM EDT [facility] Blood Arterial blood specimen / Unknown Arterial Puncture / Unknown 01/17/2025 3:31 PM EDT 01/17/2025 3:39 PM EDT Taj Huynh DO LAB BLOOD ORDERABLES Final R esult Performing Organization Address [facility] de Phone Number [facility] [address] [place] [address], [place] [phone] * (ABNORMAL) POCT activated clotting time,kaolin (01/17/2025 2:34 PM EDT) Only the most recent of7 resultswithin the time period is included. [facility] Activated Clotting Time Kaolin 164(H) 74 - 137 sec 01/18/2025 5:32 AM EDT [facility] Blood Arterial blood specimen / Unknown 01/17/2025 2:34 PM EDT 01/18/2025 5:34 AM EDT Taj Huynh DO LAB POINT OF CARE TE ST DOCKED DEVICE UNSOLICITED RESULTS Final Result Performing Organization Address [facility] de Phone Number [facility] [address] [place] [address], * (ABNORMAL) POCT Arterial basic metabolic profile, (01/17/2025 1:44 PM EDT) [facility] Glucose Arterial POCT 127(H) 70 - 100 mg/dL 01/18/2025 5:32 AM EDT [facility] Sodium Arterial POCT 139 135 - 145 mmol/L 01/18/2025 5:32 AM T [facility] Potassium Arterial POCT 4.7 3.5 - 5.5 mmol/L 01/18/2025 5:32 AM [facility] Chloride Arterial POCT 107 96 - 110 mmol/L 01/18/2025 5:32 AM [facility] TCO2 Arterial POCT 23 21 - 32 mmol/L 01/18/2025 5:32 AM [facility] BUN, Arterial POCT 26(H) 5 - 25 mg/dL 01/18/2025 5:32 AM T [facility] Creatinine Arterial POCT 1.7(H) 0.7 - 1.3 mg/dL 01/18/2025 5:32 AM [facility] Ionized Calcium Arterial POCT 4.80 4.50 - 5.30 mg/dL 01/18/2025 5:32 AM [facility] Hemoglobin Arterial POCT 10.5(L) 13.5 - 17.5 g/dL 01/18/2025 5:32 AM [facility] Hematocrit Arterial POCT 31(L) 42 - 54 % 01/18/2025 5:32 AM [facility] Blood Arterial blood specimen / Unknown 01/17/2025 1:44 PM EDT 01/18/2025 5:34 AM EDT Taj Levrault DO LAB POINT OF CARE TE ST DOCKED DEVICE UNSOLICITED RESULTS Final Result [facility] [address] [place] [address], [place] [phone] * TH AN ENDOTRACHEAL(NO CHARGE) (01/17/2025 11:27 AM EDT) Martina Nelson CRNA - 01/17/2025 11:27 AM EDT Martina Chong CRNA ? 01/17/2025 11:28 AM General Information and Staff Patient location during procedure: [place] Anesthesiologist: Nathan Lucio DO Resident/LITHOGRAPH PRINTER: Martina Chong CRNA Performed: resident/LITHOGRAPH PRINTER/CAA Performed by: Martina Chong CRNA Authorized by: [...] to verify the correct patient, procedure, equipment, customer support engineer and site/side marked as required. Preparation: Patient [...] 11:25 AM Staffing Anesthesiologist: Nathan Lucio DO Resident/LITHOGRAPH PRINTER: Martina Chong CRNA Nathan Lucio DO ANESTHESIA ORDERABLES Final Result * Prepare RBC: 2 Units (01/17/2025 10:40 AM EDT) Product Code [id number] 01/18/2025 6:55 AM [facility] Unit Number [id number] 01/19/20 6:55 AM [facility] Crossmatch Compatible 01/17/2025 10:51 [facility] Dispense Status Released From Crossmatch 01/18/2025 6:55 AM [facility] Unit ABO Rh OPOS 01/18/2025 6:55 AM [facility] Unit Expiration Date Time [id number] 01/18/2025 6:55 AM [facility] Unit Blood Type 5100 01/18/2025 6:55 AM [facility] Product Code [id number] 01/18/2025 6:55 AM EDT [facility] Unit Number [id number] 01/19/20 6:55 AM EDT [facility] Crossmatch Compatible 01/17/2025 10:53 AM EDT [facility] Dispense Status Released From Crossmatch 01/18/2025 6:55 AM EDT [facility] Unit ABO Rh OPOS 01/18/2025 6:55 AM EDT [facility] Unit Expiration Date Time 01/18/2025 6:55 AM EDT [facility] Unit Blood Type 5100 01/18/2025 6:55 AM EDT [facility] Blood Venous blood specimen / Unknown 01/17/2025 10:40 AM EDT 01/11/2025 11:59 AM EDT [facility] LITHOGRAPH PRINTER BLOOD BANK PRODUCT ORDERABLES Final Result [facility] [address] [place] [address], * ECG 12 lead - Procedural (No Charge) (01/11/2025 11:41 AM EDT) Ventricular Rate ECG 70 BPM GEMUSE Atrial Rate 70 BPM GEMUSE P-R Interval 254 ms GEMUSE QRS Duration 144 ms GEMUSE Q-T Interval 446 ms GEMUSE QTc 481 ms GEMUSE R [place] -68 degrees GEMUSE T [place] 86 degrees GEMUSE ECG Interpretation AV dual-paced rhythm with prolonged AV conduction Abnormal ECG When compared with ECG of 29-MAY-2024 10:40, Premature ventricular complexes are no longer Present Vent. rate has decreased BY ?? 4 BPM Confirmed by MD Pedro, Cezar ([id number]) on 01/12/2025 1:20:12 AM GEMUSE 01/11/2025 11:4 1 AM EDT 01/12/2025 1:20 AM EDT us Jelena CHACON ECG ORDERABLES Final Result Performing Organization Address City/[facility] Co de Phone Number GEMUSE * Type and screen (01/11/2025 11:27 AM EDT) ABO Group O 01/11/2025 12:54 PM EDT [facility] Rh Type Positive 01/11/2025 12:54 PM EDT [facility] Antibody Screen Negative 01/11/2025 12:54 PM EDT [facility] Blood Venous blood specimen / Unknown Venipuncture / Unknown 01/11/2025 11:27 AM EDT 01/11/2025 11:59 AM EDT us Jelena CHACON LAB BLOOD BANK TEST ORDERABLE S Final Result Performing Organization Address [facility] de Phone Number [facility] [address] [place] [address], * ANGIOGRAPHY LOWER EXT RIGHT (01/09/2025 5:16 [...] LAB COAGULATION METHOD 01/09/2025 10:41 AM EDT [facility] Blood Venous blood specimen / Unknown Venipuncture / Unknown 01/09/2025 10:23 AM EDT 01/09/2025 10:29 AM EDT Narrative [facility] - 01/09/2025 10:41 AM EDT Therapeutic range listed is for Unfractionated Heparin. LMW Heparin therapeutic range: 0.50-1.20 IU/mL us Angela CHACON LAB BLOOD ORDERABLES Final Resul t [facility] [address] [place] [address], [place] [phone] * (ABNORMAL) Comprehensive metabolic panel (01/08/2025 8:32 AM EDT) Sodium 140 133 - 145 mmol/L LAB CHEMISTRY METHOD 01/08/2025 9:24 AM [facility] Potassium 3.9 3.5 - 5.5 mmol/L LAB CHEMISTRY METHOD 01/08/2025 9:24 AM [facility] Chloride 110 96 - 110 mmol/L LAB CHEMISTRY METHOD 01/08/2025 9:24 AM [facility] CO2 26 21 - 32 mmol/L LAB CHEMISTRY METHOD 01/08/2025 9:24 AM [facility] Anion Gap 4 3 - 11 LAB CHEMISTRY METHOD 01/08/2025 9:24 AM [facility] Glucose 111(H) 70 - 100 mg/dL LAB CHEMISTRY METHOD 01/08/2025 9:24 AM [facility] BUN 27(H) 5 - 25 mg/dL LAB CHEMISTRY METHOD 01/08/2025 9:24 AM [facility] Creatinine 1.77(H) 0.70 - 1.30 mg/dL LAB CHEMISTRY METHOD 01/08/2025 9:24 AM [facility] eGFR 37(L) >=60 mL/min/1. 73m2 LAB CHEMISTRY METHOD 01/08/2025 9:24 AM [facility] Comment:Calculation based on the??Chronic Kidney Disease Epidemiology Collaboration (CKD-EPI) equation refit??without adjustment for race. BUN/Creatinine Ratio 15.3 LAB CHEMISTRY METHOD 01/08/2025 9:24 AM [facility] Calcium 8.5 8.5 - 10.5 mg/dL LAB CHEMISTRY METHOD 01/08/2025 9:24 AM [facility] AST (SGOT) 20 10 - 42 unit/L LAB CHEMISTRY METHOD 01/08/2025 9:24 AM [facility] ALT (SGPT) 14 10 - 60 unit/L LAB CHEMISTRY METHOD 01/08/2025 9:24 AM [facility] Alkaline Phosphatase 51 42 - 121 unit/L LAB CHEMISTRY METHOD 01/08/2025 9:24 AM [facility] Total Protein 6.4 6.0 - 8.0 g/dL LAB CHEMISTRY METHOD 01/08/2025 9:24 AM [facility] Albumin 3.3 3.2 - 5.0 g/dL LAB CHEMISTRY METHOD 01/08/2025 9:24 AM [facility] Total Bilirubin 0.4 0.0 - 1.4 mg/dL LAB CHEMISTRY METHOD 01/08/2025 9:24 AM [facility] Blood Venous blood specimen / Unknown Venipuncture / Unknown 01/08/2025 8:32 AM EDT 01/08/2025 8:53 AM EDT us Joselyn CHACON LAB BLOOD ORDERABLES Fin al Result [facility] [address] [place] [address], * Hemoglobin A1c (03/22/2024) Hemoglobin A1C 6.4 <=6.5 % Blood Venous blood specimen / Unknown [facility] Provider LAB BLOOD ORDERABLES Rosa Isela l Result * Urine Albumin Creatinine Ratio (09/08/2023) Pathologist [facility] Urine Albumin Creatinine Ratio Abstracted Result [facility] Provider HEALTH MAINTENANCE Final Result * (ABNORMAL) Lipid panel (09/08/2023) [facility] LDL/HDL Ratio 4 0 - 4 Triglycerides 249(A) 0 - 150 mg/dL Cholesterol 130 0 - 200 mg/dL HDL 34(A) >=40 mg/dL LDL Cholesterol 47 0 - 100 mg/dL Blood Venous blood specimen / Unknown Result [facility] Provider LAB BLOOD ORDERABLES Rosa Isela l Result * Diabetes Foot Exam (09/07/2023) Pathologist [facility] Diabetes: Annual Foot Exam Abstracted Result [facility] Provider HEALTH MAINTENANCE Final Result from Last 3 Months or Most Recently Relevant to Health Maintenance Insurance MEDICARE [facility] Advance Directives Documents on File Type Date Recorded 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 Care Teams Insurance Appraiser Relationship Specialty Start Date End Date Marni Ferguson MD [address] [place] [phone] PCP - General Internal Medicine 10/26/24
[2025-03-02 13:14] LABS: Glucose, Whole Blood 127 mg/dL (60-115)
== END 2025-03-02 13:40 | disposition home or self-care (01) ==
LOC: HO.ENCR 12:50
PROVIDERS: Visit Provider Physician Assistant
DX: E11.22 Type 2 diabetes mellitus with diabetic chronic kidney disease (principal); N18.4 Chronic kidney disease, stage 4 (severe); Z79.4 Long term (current) use of insulin; I12.9 Hypertensive chronic kidney disease with stage 1 through stage 4 chronic kidney disease, or unspecified chronic kidney disease; E78.5 Hyperlipidemia, unspecified

== ENCOUNTER → 2025-03-02 12:49 | Outpatient (BNVA) | payer MEDICARE, OTHER, SELFPAY | PROVIDERS: Visit Provider Physician Assistant | DX: I12.9 Hypertensive chronic kidney disease with stage 1 through stage 4 chronic kidney disease, or unspecified chronic kidney disease (principal); E11.22 Type 2 diabetes mellitus with diabetic chronic kidney disease; N18.4 Chronic kidney disease, stage 4 (severe); E78.5 Hyperlipidemia, unspecified; Z79.4 Long term (current) use of insulin | CPT/HCPCS: 82947; 83036; 99212 ==

== ENCOUNTER 2025-03-23 08:52 | Outpatient (REF) | payer MEDICARE, OTHER, SELFPAY ==
--- OUTSIDE RECORDS SUMMARY | 2025-03-23 08:58 | XMS_ITS | Clinical Summary ---
Author Organization [address] [facility] Address [address] [place] [address] Phone Care Team Providers Care Circuits Engineer Name Role Phone Marni Ferguson MD Primary Care Provider [phone] Allergies Active Allergy Reactions Criticality Noted Date [...] TABLET BY MOUTH DAILY 2 Active glucose sensor,implant-de xamet device 1 Product by Does not apply route every 14 days. 4 Active pen needle, diabetic (BD Ultra-Fine Micro Pen Needle) 32 gauge x 1/4 needle DIRECTED TWICE DAILY 2 Active furosemide (LASIX) 20 mg tablet Take 1 tablet (20 mg total) by mouth 1 (one) time each day. 2 Active flash glucose scanning reader (FreeStyle Vivek 2 [place]) misc 1 Product by Does not apply [...] day. 5 Active rivaroxaban (Xarelto) 2.5 mg tabletIndications :Infrarenal abdominal aortic aneurysm (AAA) without rupture (CMS/HCC V24),Occlusion of arterial bypass graft, subsequent encounter Take 1 tablet (2.5 mg total) by mouth 2 (two) times a day with meals. 60 tablet 5 Active oxyCODONE (ROXICODONE) 5 mg immediate release tabletIndications :Critical limb ischemia of right lower extremity (CMS/HCC [...] tablets by mouth at bedtime. 60 each 5 02/10/20 26 Active oxyCODONE (ROXICODONE) 5 mg immediate release tabletIndications :Gangrene of toe of right foot ([facility] V24, [facility] V28),Ischemic leg Take 2 tablets (10 mg total) by mouth every 4 (four) hours if needed for severe pain. Status post incision and drainage and amputation of toe Max Daily Amount: 60 mg 15 tablet 5 Active Active Problems Problem Noted Date Diagnosed Date Gangrene of toe of right foot ([facility] V24, [facility] V28) 02/05/2025 Ischemic leg 01/08/2025 Occlusion of arterial bypass graft ([facility] V24) 10/26/2024 Acute deep vein thrombosis ( DVT) of femoral vein of right lower extremity ([facility] V24, [facility] V28) 10/26/2024 Diabetic neuritis ([facility] V24, [facility] V28) Hypertension 08/29/2024 Lumbar spondylosis 09/22/2022 Overview (08/29/2024): Last Assessment & Plan: Mr. Omalley underwent bilateral radiofrequency ablation on 10/08/2022 at [facility] with some improvement lasting 1 month. [...] Bacterial pneumonia 04/21/2022 CHF (congestive heart failure) ([facility] V24, [facility] V28) 04/21/2022 Gastrointestinal hemorrhage 04/21/2022 Neuropathy 04/21/2022 SSS (sick sinus syndrome) ([facility] V24, [facility] V28) 04/21/2022 Overview (08/29/2024): Last Assessment & Plan: This is been stable. He is status post pacemaker generator replacement as he was end-of-life. This is working well. He is feeling better now that his heart rates are in the higher range. Acute hypoxemic respiratory failure ([facility] V24, [facility] V28) 04/21/2022 Heart block AV complete ([facility] V24, [facility] V2 8) 04/01/2022 AAA (abdominal aortic aneurysm) ([facility] V24) Overview (08/29/2024): Last Assessment & Plan: He had a repeat echo done recently. This showed no changes when compared to before. He has been followed by vascular surgery. Malignant neoplasm of right vocal cord ([facility] V24, [facility] V28) 11/06/2020 CKD (chronic kidney disease) stage 3, GFR 30-59 ml/min ([facility] V24, [facility] V28) 11/06/2020 Anxiety 08/09/2020 BPH (benign prostatic hyperplasia) 08/09/2020 Coronary artery disease invo lving [place] heart without angina pectoris 08/09/2020 Overview (08/29/2024): [...] lifestyle choices and diet. Peripheral vascular disease ([facility] V24) 2019 Overview (08/29/2024): Last Assessment & Plan: This is stable. Again this is being followed by Dr. Banks. He states that he will be getting a lower extremity arterial study done in the next couple weeks. ST elevation myocardial infa rction (STEMI) ([facility] V24, [facility] V28) 08/09/2020 Overview (08/29/2024): Last Assessment & [...] low cholesterol diet and exercise. 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 ([facility] V24, [facility] V28) 08/09/2020 Type 2 diabetes mellitus wit h renal manifestations ([facility] V24, [facility] V28) 08/09/2020 Resolved Problems Problem Noted Date Diagnosed Date Resolved Date Critical limb ischemia of ri ght lower extremity ([facility] V24, [facility] V28) 01/08/2025 Epistaxis 10/28/2024 10/28/2024 Encounters Date Type Department Care Team Description 02/27/2025 8:30 AM EDT Office Visit Vascular Surgery - [place] [address] [facility] [address] [place] [address] Andie Chua PA PAD (peripheral artery disease) ([facility] V24) (Primary Dx); Infrarenal abdominal aortic aneurysm (AAA) without rupture ([facility] V24); History of amputation of fourth toe ([facility] V24) 02/21/2025 7:25 PM EDT Ancillary Procedure [facility] - [facility] [address] [facility] [address] [place] [address] 02/07/2025 1:22 PM EDT Anesthesia Event [facility] OR [address] [place] [phone] Kinjal Katz MD Millay, Julia, CRNA 02/07/2025 12:30 PM EDT - 02/07/2025 1:45 PM EDT Surgery [facility] OR [address] [place] [address] [phone] Ahmet Banks MD INCISION DRAINAGE RIGHT FOOT 4TH MTP BONE CORTEX, WASHOUT AND WOUND CLOSURE & RIGHT FOOT SUTURE REMOVAL 02/06/2025 1:00 PM EDT - 02/06/2025 2:15 PM EDT Surgery [facility] OR [address] [place] [phone] Ahmet Banks MD RIGHT 4TH TOE OPEN AMPUTATION, REMOVAL SUTURE RIGHT INNER THIGH 02/06/2025 9:42 AM EDT Anesthesia Event [facility] OR [address] [place] [phone] Ezekiel Hudson MD Kriz, Petra, MD 02/05/2025 2:26 PM EDT - 02/09/2025 5:33 PM EDT Hospital Encounter [facility] Surgical Unit [address] [place] [address] [phone] Ju Valdez MD Surendran, Anupama, MD Zipagan, James T, MD Gangrene of toe of right foot ([facility] V24, [facility] V28) (Primary Dx); Gangrene ([facility] V24, [facility] V28); Osteomyelitis of fourth toe of right foot ([facility] V24, [facility] V28); Ischemic leg Discharge Disposition: Home-Health Care [facility] 02/05/2025 1:15 PM EDT Office Visit Vascular Surgery - [place] [address] [phone] Ahmet Banks MD Critical limb ischemia of right lower extremity with ulceration of foot ([facility] V24, [facility] V28) (Primary Dx); PAD (peripheral artery disease) ([facility] V24); Infrarenal abdominal aortic aneurysm (AAA) without rupture ([facility] V24) 01/17/2025 11:00 AM EDT - 01/17/2025 3:30 PM EDT Surgery [facility] OR [address] [place] [phone] Ahmet Banks MD RIGHT FEMORAL DORSALIS PEDIS BYPASS WITH CRYOPRESERVED VEIN, RIGHT SUPERFICIAL FEMORAL ARTERY ENDARTERECTOMY WITH BIOLOGIC PATCH, REDO BYPASS [[id number] (CPT )] 01/17/2025 10:52 AM EDT Anesthesia Event [facility] OR [address] [place] [address] [phone] Bharathi Maguire DO Hard, Shannon, CRNA 01/17/2025 9:25 AM EDT - 01/21/2025 10:04 AM EDT Hospital Encounter [facility]mediate Care Unit [address] [place] [phone] Ahmet Banks MD Levrault, Richard, DO Flores, Carlos M, MD Seralathan, Manikandan, MD Critical limb ischemia of right lower extremity (CMS/HCC V24, CMS/HCC V28) Discharge Disposition: Home-Health Care Svc 01/15/2025 Telephone [facility] Surgery - [place] [address] [place] [phone] Ahmet Banks MD Med Management 01/11/2025 Telephone V[facility] Surgery - [place] [address] [place] [phone] Ahmet Banks MD cardiac Clearance 01/11/[address] [facility] Cardiology [address] [place] [address] Marni Ferguson MD 01/09/2025 6:00 PM EDT - 01/09/2025 8:00 PM EDT Surgery [facility] Cardiac Side Splitter [address] [place] [phone] Ahmet Banks MD Angiography lower ext right 01/08/2025 7:30 AM EDT - 01/10/2025 1:15 PM EDT Hospital Encounter [facility] Surgical Unit [address] [place] [phone] Ju Valdez MD Mohani, Priya, MD Critical limb ischemia of right lower extremity (CMS/HCC V24, CMS/HCC V28) (Primary Dx); Ulcer of toe of right foot, unspecified ulcer stage (CMS/HCC V24, CMS/HCC V28); Ischemic leg; Infrarenal abdominal aortic aneurysm (AAA) without rupture (CMS/HCC V24); Occlusion of arterial bypass graft, subsequent encounter Discharge Disposition: Home-Health Care Sv 01/05/2025 11:45 AM EDT Office Visit Vascular Surgery - [place] [address] [facility] [address] [place] [phone] Ahmet Banks MD Critical limb ischemia of right lower extremity with ulceration of foot ([facility] V24, [facility] V28) (Primary Dx) 12/22/2024 11:45 AM EDT Office Visit Vascular Surgery [facility] [address] [place] [phone] Ahmet Banks MD Peripheral vascular disease ([facility] V24) (Primary Dx); PAD (peripheral artery disease) ([facility] V24); Acute deep vein thrombosis (DVT) of femoral vein of right lower extremity ([facility] V24, [facility] V28) from Last 3 Months Immunizations Name Administration [...] Site/Laterality Comments KNEE ARTHROSCOPY 2009 Right PROCEDURE: SD ARTHROSCOPY KNEE DIAGNOSTIC W/WO SYNOVIAL BX SPX; COMMENT: Meniscus TURP / TRANSURETHRAL INCISIO N / DRAINAGE PROSTATE 2004 PROCEDURE: HISTORICAL TURP OTHER SURGICAL HISTORY PROCEDURE: SD DUP-SCAN LXTR ART/ARTL BPGS UNI/LMTD STUDY; COMMENT: Angioplasty and stenting of the left leg PACEMAKER IMPLANT PROCEDURE: HISTORICAL PACEMAKER COLONOSCOPY 2011 PROCEDURE: HISTORICAL COLONOSCOPY OTHER SURGICAL HISTORY PROCEDURE: SD BIOPSY OROPHARYNX; COMMENT: Throat cancer had radiation x6 [facility] EYE SURGERY PROCEDURE: HISTORICAL EYE SURGERY; COMMENT: [place] TONSILLECTOMY PROCEDURE: HISTORICAL TONSILLECTOMY OTHER SURGICAL HISTORY PROCEDURE: ---- HEMORRHOIDS ---- HERNIA REPAIR Bilateral PROCEDURE: REPAIR INGUINAL HERNIA CORONARY ARTERY BYPASS GRAFT 1996 PROCEDURE: HISTORICAL CABG; COMMENT: x4 NECK SURGERY PROCEDURE: HISTORICAL NECK SURGERY CARPAL TUNNEL RELEASE Right PROCEDURE: SD NEUROPLASTY &/TRANSPOS MEDIAN NRV CARPAL TUNNE; COMMENT: dr. cazares BACK SURGERY 10/08/2022 Bilateral PROCEDURE: HISTORICAL BACK SURGERY; COMMENT: Bilateral L3, L4 and L5 radiofrequency neurotomy Dr. Sahu OTHER SURGICAL HISTORY 06/15/2023 PROCEDURE: SD SLCTV CATHJ 3RD+ ORD SLCTV ABDL PEL/LXTR BRNCH OTHER SURGICAL HISTORY 06/15/2023 PROCEDURE: SD SLCTV CATHJ EA 2ND+ ORD ABDL PEL/LXTR ART BRNCH OTHER SURGICAL HISTORY 06/15/2023 PROCEDURE: X-RAY EXAM OF ARM/LEG ARTERY OTHER SURGICAL HISTORY 06/15/2023 PROCEDURE: ULTRASOUND GUIDANCE FOR VASCULAR AC OTHER SURGICAL HISTORY 06/01/2024 PROCEDURE: SD EVASC RPR DPLMNT IWOKM-WS-BPMPU NDGFT OTHER SURGICAL HISTORY 06/01/2024 PROCEDURE: SD OPN ILIAC ART EXPOS PROSTH/ILIAC OCCLS EVASC UNI OTHER SURGICAL HISTORY 06/01/2024 PROCEDURE: SD PERQ ACCESS & CLOSURE FEM ART FOR DELIVERY NDGFT OTHER SURGICAL HISTORY 06/01/2024 PROCEDURE: SD REVASC INTRAVASC LITHOTRIPSY OTHER SURGICAL HISTORY 06/28/2024 Left PROCEDURE: SD BYP OTH/THN VEIN FEM-ANT TIBL PST TIBL/PRONEAL Medical History Medical History Date Comments 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 ([facility] V24, [facility] V28) 08/09/2020 DX:Type 2 diabetes mellitus with neurological manifestation (HCC) CKD (chronic kidney disease) stage 3, GFR 30-59 ml/min ([facility] V24, [facility] V28) 11/06/2020 DX:CKD (chronic kidney disea se) stage 3, GFR 30-59 ml/min ([facility]) Type 2 diabetes mellitus wit h renal manifestations ([facility] V24, [facility] V28) 08/09/2020 DX:Type 2 diabetes mellitus with renal manifestations ([facility]) CAD (coronary artery disease) 08/09/2020 DX :CAD (coronary artery disease); COMMENT: Multiple stenting procedures x 5. Pacemaker 08/09/2020 DX:Pacemaker ST elevation myocardial infa rction (STEMI) ([facility] V24, [facility] V28) 08/09/2020 DX:ST elevation hesham cardial infarction (STEMI) ([facility]) Throat cancer ([facility] V24, [facility] V28) 08/09/2020 DX:Throat cancer (HCC); COMM ENT: 2020: received RT Hyperlipidemia 08/09/2020 DX:Hyperlipidemi a HTN (hypertension) 08/09/2020 DX:HTN (hyper tension) History of diverticulitis 08/09/2020 DX:His tory of diverticulitis Peripheral vascular disease ([facility] V24) 08/09/2020 DX:Peripheral vascular disea se (HCC) Diabetic neuritis ([facility] V 24, [facility] V28) 08/09/2020 DX:Diabetic neuritis (HCC) Gastroesophageal reflux dise ase without esophagitis 08/09/2020 DX:Gastroesophageal reflux d isease without esophagitis Anxiety 08/09/2020 DX:Anxiety Malignant neoplasm of right vocal cord ([facility] V24, [facility] V28) 11/06/2020 DX:Malignant neoplasm of ri ght vocal cord ([facility]) 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 - [address] [facility] [address] [place] [address] 05/24/2025 12:00 PM EDT Ancillary Procedure [facility] - [facility] [address] [place] [address] 06/25/2025 11:00 AM EDT Office Visit Vascular Surgery - [place] [address] [place] [phone] Ahmet Banks MD [address] [place] [address] Health Maintenance Due Date Last Done Comments [...] this topic Medical Devices Implanted Type Area Vascular Neurologist Device Identifier Shelf Expiration Date Model / Serial / Lot Medt-Card Kendell Xt Dr Artis [id number] Implanted: (Quantity not on file) Cardiac Pacemaker [employer] - CARDIAC RHYTH-CRDM KENDELL XT DR ARTIS [id number] / [id number] / Hemostat Absorb Surgicel 2x4in Fibrillar - Sn/A - [id number] Implanted:Qty : 1 on 01/17/2025 by Ahmet Banks MD at [facility] Hemostasis Right: Leg [employer] 07/03/20271961 / N/A / [id number] Sealant Fibrin Vistaseal 4ml - [id number] - [id number] Implanted:Qty : 1 on 01/17/2025 by Ahmet Banks MD at [facility] Hemostasis Right: Leg [employer] [id number] 07/18/2026 [id number] / [id number] / [id number] Hemostat Absorb 1x2 Surgicel Fibrillar - Sn/A - [id number] Implanted:Qty : 1 on 02/07/2025 by Ahmet Banks MD at [facility] Hemostasis Right: Foot [employer] 07/03/20261960 / N/A / [id number] Vein Saphns 50-59cm A B Ab O Blood Type - [id number] - [id number] Implanted:Qty : 1 on 01/17/2025 by Ahmet Banks MD at [facility] [employer] Right: Leg [employer] 04/05/2029 [id number] / [id number] / [id number] Patch Biol Xenosure .8x8cm - Sn/A - [id number] Implanted:Qty : 1 on 01/17/2025 by Ahmet Banks MD at [facility] Vascular Grafts Right: Leg [employer] 12/29/2029 E0.8P8 / N/A / [id number] Procedures Procedure Name Priority Date/Time Associated [...] EXAM Routine 02/06/2025 10:16 AM EDT Gangrene (CMS/HCC V24, CMS/HCC V28) TH AN LMA(NO CHARGE) Routine 02/06/2025 10:02 AM EDT AMPUTATION TOE 02/06/2025 9:38 AM EDT Gangrene (CMS/HCC V24, CMS/HCC V28) POCT GLUCOSE BLOOD Routine 02/06/2025 8: [...] LINE (CHARGE) Routine 01/17/2025 11:24 AM EDT SD BYPASS GRAFT W OTHER THAN VEIN FEMORAL-ANT/POST [...] 8:32 AM EDT HEMOGLOBIN A1C Routine 03/22/2024 HM URINE ALBUMIN CREATININE RATIO Routine 09/08/2023 LIPID PANEL Routine 09/08/2023 DIABETES FOOT EXAM Routine 09/07/2023 from Last 3 Months or Most Recently Relevant to Health Maintenance Results * Cardiac device check - Remote- MURJ (02/21/2025 7:24 PM EDT) Date Time Interrogation Session [id number] CV DEVICE CHECK Type Interrogation Session Remote CV DEVICE CHECK Implantable Pulse Generator Vascular Neurologist MDT CV DEVICE CHECK Implantable Pulse Generator Type IPG CV DEVICE CHECK Implantable Pulse Generator Model Kendell XT DR ARTIS [id number] CV DEVICE CHECK Implantable Pulse Generator Serial Number [id number] CV DEVICE CHECK Implantable Pulse Generator Implant Date [id number] CV DEVICE CHECK Battery Remaining Longevity 101.0 CV DEVICE CHECK Battery Voltage 3.000 CV D EVICE CHECK Battery ACETYLENE TORCH OPERATOR Trigger 2.625 CV DEVICE CHECK Battery Status Middle of Service CV DEVICE CHECK Jag Statistic RA Percent Paced 98.75 CV DEVICE CHECK Jag Statistic RV Percent Paced 99.82 CV DEVICE CHECK Atrial Tachy Statistic AT/AF [place] Percent 0.00 CV DEVICE CHECK Lead Channel [...] of10 resultswithin the time period is included. [facility] WBC 6.3 4.8 - 10.8 K/mcL LAB HEMETOLOGY METHOD 02/09/2025 7:14 AM [facility] RBC 2.40(L) 4.50 - 5.50 M/mcL LAB HEMETOLOGY METHOD 02/09/2025 7:14 AM [facility] Hemoglobin 8.3(L) 13.5 - 17.5 g/dL LAB HEMETOLOGY METHOD 02/09/2025 7:14 AM [facility] Hematocrit 25.5(L) 42.0 - 54.0 % LAB HEMETOLOGY METHOD 02/09/2025 7:14 AM [facility] MCV 108.1(H) 79.0 - 98.0 FL LAB HEMETOLOGY METHOD 02/09/2025 7:14 AM [facility] MCH 35.2(H) 27.0 - 32.0 pcg LAB HEMETOLOGY METHOD 02/09/2025 7:14 AM [facility] MCHC 32.5 32.0 - 37.0 g/dL LAB HEMETOLOGY METHOD 02/09/2025 7:14 AM [facility] RDW 16.8(H) 11.0 - 15.0 % LAB HEMETOLOGY METHOD 02/09/2025 7:14 AM [facility] Platelets 206 130 - 400 K/mcL LAB HEMETOLOGY METHOD 02/09/2025 7:14 AM [facility] MPV 9.7 7.0 - 11.0 FL LAB HEMETOLOGY METHOD 02/09/2025 7:14 AM [facility] NRBC 0.0 <1.0 % LAB HEMETOLOGY METHOD 02/09/2025 7:14 AM [facility] NRBC Absolute 0.00 <0.10 K/mcL LAB HEMETOLOGY METHOD 02/09/2025 7:14 AM [facility] Neutrophils Relative 57.5 % LAB HEMETOLOGY METHOD 02/09/2025 7:14 AM [facility] Lymphocytes Relative 19.7 % LAB HEMETOLOGY METHOD 02/09/2025 7:14 AM [facility] Monocytes Relative 13.9 % LAB HEMETOLOGY METHOD 02/09/2025 7:14 AM [facility] Eosinophils Relative 7.6 % LAB HEMETOLOGY METHOD 02/09/2025 7:14 AM [facility] Basophils Relative 1.0 % LAB HEMETOLOGY METHOD 02/09/2025 7:14 AM [facility] Immature Granulocytes Relative 0.3 % LAB HEMETOLOGY METHOD 02/09/2025 7:14 AM [facility] Neutrophils Absolute 3.63 1.50 - 7.00 K/[facility] LAB HEMETOLOGY METHOD 02/09/2025 7:14 AM [facility] Lymphocytes Absolute 1.24 1.00 - 5.00 K/mcL LAB HEMETOLOGY METHOD 02/09/2025 7:14 AM [facility] Monocytes Absolute 0.88 0.20 - 1.00 K/mcL LAB HEMETOLOGY METHOD 02/09/2025 7:14 AM [facility] Eosinophils Absolute 0.48 0.00 - 0.50 K/mcL LAB HEMETOLOGY METHOD 02/09/2025 7:14 AM [facility] Basophils Absolute 0.06 0.00 - 0.20 K/mcL LAB HEMETOLOGY METHOD 02/09/2025 7:14 AM [facility] Immature Granulocytes Absolute 0.02 0.00 - 0.03 K/mcL LAB HEMETOLOGY METHOD 02/09/2025 7:14 AM [facility] Blood Venous blood specimen / Unknown Venipuncture / Unknown 02/09/2025 6:20 AM EDT 02/09/2025 6:58 AM EDT us Ulisses Shook MD LAB BLOOD ORDERABLES Final Re sult [facility] [address] [place] [address], [place] [phone] * (ABNORMAL) Basic metabolic panel (02/09/2025 6:20 AM EDT) Only the most recent of12 resultswithin the time period is included. Sodium 139 133 - 145 mmol/L LAB CHEMISTRY METHOD 02/09/2025 7:41 AM [facility] Potassium 3.8 3.5 - 5.5 mmol/L LAB CHEMISTRY METHOD 02/09/2025 7:41 AM [facility] Chloride 109 96 - 110 mmol/L LAB CHEMISTRY METHOD 02/09/2025 7:41 AM [facility] CO2 23 21 - 32 mmol/L LAB CHEMISTRY METHOD 02/09/2025 7:41 AM [facility] Anion Gap 7 3 - 11 LAB CHEMISTRY METHOD 02/09/2025 7:41 AM [facility] Glucose 106(H) 70 - 100 mg/dL LAB CHEMISTRY METHOD 02/09/2025 7:41 AM [facility] BUN 25 5 - 25 mg/dL LAB CHEMISTRY METHOD 02/09/2025 7:41 AM [facility] Creatinine 1.80(H) 0.70 - 1.30 mg/dL LAB CHEMISTRY METHOD 02/09/2025 7:41 AM [facility] eGFR 36(L) >=60 mL/min/1. 73m2 LAB CHEMISTRY METHOD 02/09/2025 7:41 AM [facility] Comment:Calculation based on the Chronic Kidney Disease Epidemiology Collaboration (CKD-EPI) equation refit without adjustment for race. BUN/Creatinine Ratio 13.9 LAB CHEMISTRY METHOD 02/09/2025 7:41 AM EDT [facility] Calcium 8.6 8.5 - 10.5 mg/dL LAB CHEMISTRY METHOD 02/09/2025 7:41 AM EDT [facility] Blood Venous blood specimen / Unknown Venipuncture / Unknown 02/09/2025 6:20 AM EDT 02/09/2025 6:57 AM EDT us Ulisses Shook MD LAB BLOOD ORDERABLES Final Re sult Performing Organization Address [facility]/ZIP Co de Phone Number [facility] [address] [place] [address], [place] [phone] * (ABNORMAL) POCT Glucose, blood (02/08/2025 7:48 PM EDT) Only the most recent of37 resultswithin the time period is included. Glucose POCT 150(H) 70 - 100 mg/dL 02/08/2025 7:48 PM EDT [facility] Blood Capillary blood specimen / Unknown 02/08/2025 7:48 PM EDT 02/08/2025 7:49 PM EDT us Ulisses Shook MD LAB POINT OF CARE TE ST DOCKED DEVICE UNSOLICITED RESULTS Final Result Performing Organization Address [facility]/ZIP Co de Phone Number [facility] [address] [place] [address], [place] [phone] * Vancomycin, trough Please draw level 1 hour prior to vancomycin administration (02/08/2025 1:11 PM EDT) Vancomycin Trough 11.5 10.0 - 20.0 mcg/mL LAB CHEMISTRY METHOD 02/08/2025 2:11 PM EDT [facility] Blood Venous blood specimen / Unknown Venipuncture / Unknown 02/08/2025 1:11 PM EDT 02/08/2025 1:21 PM EDT Andie CHACON LAB BLOOD ORDERABLES Final Res ult [facility] [address] [place] [address], * XR Foot 2 Views Right (02/07/2025 2:49 PM EDT) Anatomical Region Laterality Modality Lower Extremities, Foot Right Radiogra phic Imaging 02/07/2025 3:11 PM EDT Impressions 02/07/2025 3:11 PM EDT FINDINGS/IMPRESSION: 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 Expected postsurgical changes in the soft tissues. Degenerative changes and osteopenia. Prominent plantar calcaneal spur. Vascular calcifications and surgical clips at the ankle. -------- FINAL REPORT -------- Dictated By: Sravani Pederson Dictated Date: 02/07/2025 15:11 ET Assigned Physician: Sravani Pederson Reviewed and Electronically Signed By: Sravani Pederson Signed Date: 02/07/2025 15:11 ET Workstation ID: [id number] Transcribed By: Self Edit Transcribed Date: 02/07/2025 [...] Signed Date: 02/07/2025 15:11 ET Workstation ID: [id number] Transcribed By: Self Edit Transcribed Date: 02/07/2025 15:11 ET us Andie CHACON IMG XR PROCEDURES Final Result * Tissue exam (02/07/2025 1:49 PM EDT) Only the most recent of3 resultswithin the time period is included. Final Diagnosis Right 4th metatarsal bone margin: -VIABLE APPEARING BONE 02/09/2025 11:57 AM EDT [facility] Gross Description A. Foot, Right, [...] decalcification . TS 02/09/2025 11:57 AM EDT [facility] Disclaimer Unless otherwise specified, all tissue is 10% NB formalin fixed and paraffin embedded. 02/09/2025 11:57 AM EDT [facility] Bone Structure of right foot / Unknown 02/07/2025 1:49 PM EDT 02/07/2025 3:37 PM EDT us Ahmet Banks MD LAB PATHOLOGY ORDERABLES Final Result [facility] [address] [place] [address], * Culture tissue with gram stain (02/07/2025 1:48 PM EDT) Culture, Tissue No growth aerobically and anaerobically at 5 days. 02/12/2025 9:14 AM EDT [facility] Gram Stain Result No polymorphonuclear leukocytes, No epithelial cells, and No organisms noted 02/12/2025 9:14 AM EDT [facility] Tissue Structure of right foot / Unknown 02/07/2025 1:48 PM EDT 02/07/2025 2:27 PM EDT us Ahmet Banks MD LAB MICROBIOLOGY - GENERAL ORDE RABLES Final Result [facility] [address] [place] [address], [place] [phone] * Culture bone (02/07/2025 1:48 PM EDT) Culture, Bone No growth aerobically and anaerobically at 5 days. 02/12/2025 9:15 AM EDT [facility] Gram Stain Result Rare Polymorphonuclear leukocytes 02/12/2025 9:15 AM EDT [facility] Gram Stain Result No Epithelial cells 02/12/2025 9:15 AM EDT [facility] Gram Stain Result No organisms seen 02/12/2025 9:15 AM EDT [facility] Bone Structure of right foot / Unknown 02/07/2025 1:48 PM EDT 02/07/2025 2:28 PM EDT us Ahmet Banks MD LAB MICROBIOLOGY - GENERAL ORDE RABUSMAN Final Result [facility] [address] [place] [address], [place] [phone] * TH AN LMA(NO CHARGE) (02/07/2025 1:32 PM EDT) Narrative Lainey Peterson CRNA - 02/07/2025 1:32 PM EDT Lainey Peterson CRNA 02/07/2025 1:33 PM General Information and Staff Patient location during procedure: OR Performed by: Lainey Peterson CRNA Authorized by: Orlando Umaña MD Intubation Airway not difficult Urgency: elective Final [...] GEMUSE QTc 451 ms GEMUSE P Wave Monroe -20 degrees GEMUSE R Monroe -56 degrees GEMUSE T Monroe 72 degrees GEMUSE ECG Interpretation AV dual-paced [...] - 02/06/2025 10:02 AM EDT LISA Meyers 02/06/2025 10:08 AM General Information and Staff Patient location during procedure: OR Anesthesiologist: Monae Borges MD Resident/ASPHALT SPREADER: Romi Price CRNA Other anesthesia staff: LISA Meyers Performed: other anesthesia staff Performed by: LISA Meyers Authorized by: Ezekiel Hudson MD Intubation Urgency: elective Final Airway Details Number [...] K/mcL LAB HEMETOLOGY METHOD 02/06/2025 6:55 AM [facility] RBC 2.60(L) 4.50 - 5.50 M/mcL LAB HEMETOLOGY METHOD 02/06/2025 6:55 AM [facility] Hemoglobin 8.9(L) 13.5 - 17.5 g/dL LAB HEMETOLOGY METHOD 02/06/2025 6:55 AM [facility] Hematocrit 28.3(L) 42.0 - 54.0 % LAB HEMETOLOGY METHOD 02/06/2025 6:55 AM [facility] MCV 108.0(H) 79.0 - 98.0 FL LAB HEMETOLOGY METHOD 02/06/2025 6:55 AM [facility] MCH 34.0(H) 27.0 - 32.0 pcg LAB HEMETOLOGY METHOD 02/06/2025 6:55 AM [facility] MCHC 31.4(L) 32.0 - 37.0 g/dL LAB HEMETOLOGY METHOD 02/06/2025 6:55 AM EDT [facility] RDW 17.4(H) 11.0 - 15.0 % LAB [facility] 02/06/2025 6:55 AM EDT [facility] Platelets 252 130 - 400 K/mcL [facility] 02/06/2025 6:55 AM EDT [facility] MPV 9.6 7.0 - 11.0 FL LAB HEMETOLOGY METHOD 02/06/2025 6:55 AM EDT [facility] NRBC 0.0 <1.0 % [facility] 02/06/2025 6:55 AM EDT [facility] NRBC Absolute 0.00 <0.10 K/mcL LAB [facility] 02/06/2025 6:55 AM EDT [facility] Blood Venous blood specimen / Unknown Venipuncture / Unknown 02/06/2025 6:00 AM EDT 02/06/2025 6:23 AM EDT Ju Valdez MD LAB BLOOD ORDERABLES Final Res ult Performing Organization Address [facility]/State/ZIP Co de Phone Number [facility] [address] [place] [address], [place] [phone] * Culture blood (02/05/2025 4:44 PM EDT) Only the most recent of2 resultswithin the time period is included. Culture, Blood No growth at 5 days 02/10/2025 5:01 PM EDT [facility] Blood Venous blood specimen / Unknown Venipuncture / Unknown 02/05/2025 4:44 PM EDT 02/05/2025 4:53 PM EDT Anika CHACON LAB MICROBIOLOGY - GENERAL OR DERABLES Final Result Performing Organization Address City/[facility] de Phone Number [facility] [address] [place] [address], * Lactate, with reflex (02/05/2025 2:48 PM EDT) LACTIC ACID 1.5 0.4 - 2.0 mmol/L LAB CHEMISTRY METHOD 02/05/2025 3:35 PM EDT [facility] Blood Venous blood specimen / Unknown Venipuncture / Unknown 02/05/2025 2:48 PM EDT 02/05/2025 3:04 PM EDT Anika Almodovar PA LAB BLOOD ORDERABLES Final Re sult Performing Organization Address [facility] de Phone Number [facility] [address] [place] [address], * (ABNORMAL) Phosphorus (01/19/2025 6:00 AM EDT) Only the most recent of3 resultswithin the time period is included. Phosphorus 2.4(L) 2.5 - 4.5 mg/dL LAB CHEMISTRY METHOD 01/19/2025 7:29 AM EDT [facility] Blood Venous blood specimen / Unknown Venipuncture / Unknown 01/19/2025 6:00 AM EDT 01/19/2025 6:20 AM EDT Taj Huynh DO LAB BLOOD ORDERABLES Final R esult Performing Organization Address [facility] Co de Phone Number [facility] [address] [place] [address], * Magnesium (01/19/2025 6:00 AM EDT) Only the most recent of4 resultswithin the time period is included. Magnesium 2.4 1.9 - 2.6 mg/dL LAB CHEMISTRY METHOD 01/19/2025 7:29 AM EDT [facility] Blood Venous blood specimen / Unknown Venipuncture / Unknown 01/19/2025 6:00 AM EDT 01/19/2025 6:20 AM EDT Taj Huynh DO LAB BLOOD ORDERABLES Final R esult Performing Organization Address [facility] Co de Phone Number [facility] [address] [place] [address], [place] [phone] * Calcium, ionized (01/19/2025 6:00 AM EDT) Only the most recent of2 resultswithin the time period is included. Calcium Ionized 4.82 4.50 - 5.30 mg/dL 01/19/2025 6:30 AM EDT [facility] Blood Venous blood specimen / Unknown Venipuncture / Unknown 01/19/2025 6:00 AM EDT 01/19/2025 6:19 AM EDT Taj Huynh DO LAB BLOOD ORDERABLES Final R esult Performing Organization Address [facility] de Phone Number [facility] [address] [place] [address], [place] [phone] * Routine EEG (01/18/2025 10:16 AM EDT) Narrative Nadja Arriaga MD - 01/18/2025 3:34 PM EDT This is a 16 channel EEG with an EKG lead. Patient is reported awake during the tracing. Background EEG rhythm is 12 to 14 Hz 5 to 50 V posteriorly lower amplitude faster anteriorly. Rarely patient gets drowsy and appropriate slowing is noted. Photic stimulation did not produce any significant driving. Hyperventilation was not performed. Cardiac lead did not reveal any significant abnormality. No sharp spikes or paroxysmal tendency asymmetry noted. Impression: No significant abnormality noted on this EEG. us Taj Huynh DO NEUROLOGY ORDERABLES Final R esult * (ABNORMAL) Activated Partial Thromboplastin Time - STAT (01/18/2025 4:33 AM EDT) Only the most recent of2 resultswithin the time period is included. aPTT 48.6(H) 24.1 - 39.3 sec LAB COAGULATION METHOD 01/18/2025 4:53 AM EDT [facility] Blood Venous blood specimen / Unknown Venipuncture / Unknown 01/18/2025 4:33 AM EDT 01/18/2025 4:42 AM EDT us Jelena CHACON LAB BLOOD ORDERABLES Final Re sult Performing Organization Address [facility] Co de Phone Number [facility] [address] [place] [address], [place] [phone] * Prothrombin Time with INR - STAT (01/18/2025 4:33 AM EDT) Only the most recent of3 resultswithin the time period is included. Protime 12.9 10.6 - 13.9 sec LAB COAGULATION METHOD 01/18/2025 4:53 AM EDT [facility] INR 1.0 LAB COAGULATION METHOD 01/18/2025 4:53 AM EDT [facility] Blood Venous blood specimen / Unknown Venipuncture / Unknown 01/18/2025 4:33 AM EDT 01/18/2025 4:42 AM EDT us Jelena CHACON LAB BLOOD ORDERABLES Final Re sult Performing Organization Address City/[facility]/ZIP Co de Phone Number [facility] [address] [place] [address], [place] [phone] * Troponin I high sensitivity (01/17/2025 5:39 PM EDT) Only the most recent of2 resultswithin the time period is included. High Sensitivity Troponin I 21 <=79 ng/L LAB CHEMISTRY METHOD 01/17/2025 6:21 PM EDT [facility] Blood Arterial blood specimen / Unknown Venipuncture / Unknown 01/17/2025 5:39 PM EDT 01/17/2025 5:51 PM EDT Narrative [facility] - 01/17/2025 6:21 PM EDT High levels of biotin in samples may falsely decrease hsTroponin values. Use caution when interpreting hsTroponin results in patients taking biotin who exhibit renal impairment (eGFR <60) or in patients taking more than 20 mg/day of biotin. us Taj Huynh DO LAB BLOOD ORDERABLES Final R esult [facility] [address] [place] [address], * CT Angio Head/Neck Stroke wo and/or [...] Downey MD on 01/17/2025 18:18:56 Divine Hoff [place] DIRECTOR CHILD ABUSE THERAPY IMG CT PROCEDURES Final Result * CT [...] Downey MD on 01/17/2025 17:26:08 Divine Aldridge DIRECTOR CHILD ABUSE THERAPY IMG CT PROCEDURES Edited Result - Final * (ABNORMAL) Arterial blood gas (01/17/2025 4:55 PM EDT) Pathologist [facility] pH, Arterial 7.39 7.35 - 7.45 pH 01/17/2025 5:01 PM EDT [facility] pCO2, Arterial 37 35 - 45 mmHg 01/17/2025 5:01 PM EDT [facility] pO2, Arterial 74(L) 80 - 100 mmHg 01/17/2025 5:01 PM EDT [facility] HCO3, Arterial 23.2 22.0 - 26.0 mmol/L 01/17/2025 5:01 PM EDT [facility] O2 Sat, Arterial 97.2 95.0 - 98.0 % 01/17/2025 5:01 PM EDT [facility] Base Excess, Arterial -2.2(L) -2.0 - 2.0 mmol/L 01/17/2025 5:01 PM EDT [facility] Blood Arterial blood specimen / Unknown Arterial Puncture / Unknown 01/17/2025 4:55 PM EDT 01/17/2025 4:58 PM EDT Divine Aldridge NP LAB BLOOD ORDERABLES Fin al Result [facility] [address] [place] [address], * (ABNORMAL) Creatine kinase and CKMB (01/17/2025 3:31 PM EDT) Pathologist [facility] Total CK 41 22 - 269 unit/L LAB CHEMISTRY METHOD 01/17/2025 4:54 PM EDT [facility] CK-MB <1.0(L) 1.0 - 3.6 ng/mL LAB CHEMISTRY METHOD 01/17/2025 4:54 PM EDT [facility] CK-MB Index <0.0(L) 0.0 - 5.0 LAB CHEMISTRY METHOD 01/17/2025 4:54 PM EDT [facility] Blood Arterial blood specimen / Unknown Arterial Puncture / Unknown 01/17/2025 3:31 PM EDT 01/17/2025 3:39 PM EDT Taj Huynh DO LAB BLOOD ORDERABLES Final R esult Performing Organization Address [facility] Co de Phone Number [facility] [address] [place] [address], [place] [phone] * (ABNORMAL) POCT activated clotting time,kaolin (01/17/2025 2:34 PM EDT) Only the most recent of7 resultswithin the time period is included. Activated Clotting Time Kaolin 164(H) 74 - 137 sec 01/18/2025 5:32 AM EDT [facility] Blood Arterial blood specimen / Unknown 01/17/2025 2:34 PM EDT 01/18/2025 5:34 AM EDT Taj Huynh DO LAB POINT OF CARE TE ST DOCKED DEVICE UNSOLICITED RESULTS Final Result Performing Organization Address [facility]/ZIP Co de Phone Number [facility] [address] [place] [address], [place] [phone] * (ABNORMAL) POCT Arterial basic metabolic profile, HH (01/17/2025 1:44 PM EDT) Glucose Arterial POCT 127(H) 70 - 100 mg/dL 01/18/2025 5:32 AM EDT [facility] Sodium Arterial POCT 139 135 - 145 mmol/L 01/18/2025 5:32 AM EDT [facility] Potassium Arterial POCT 4.7 3.5 - 5.5 mmol/L 01/18/2025 5:32 AM EDT [facility] Chloride Arterial POCT 107 96 - 110 mmol/L 01/18/2025 5:32 AM EDT [facility] TCO2 Arterial POCT 23 21 - 32 mmol/L 01/18/2025 5:32 AM T [facility] BUN, Arterial POCT 26(H) 5 - 25 mg/dL 01/18/2025 5:32 AM EDT [facility] Creatinine Arterial POCT 1.7(H) 0.7 - 1.3 mg/dL 01/18/2025 5:32 AM EDT [facility] Ionized Calcium Arterial POCT 4.80 4.50 - 5.30 mg/dL 01/18/2025 5:32 AM [facility] Hemoglobin Arterial POCT 10.5(L) 13.5 - 17.5 g/dL 01/18/2025 5:32 AM EDT [facility] Hematocrit Arterial POCT 31(L) 42 - 54 % 01/18/2025 5:32 AM T [facility] Blood Arterial blood specimen / Unknown 01/17/2025 1:44 PM EDT 01/18/2025 5:34 AM EDT us Taj Huynh DO LAB POINT OF CARE TE ST DOCKED DEVICE UNSOLICITED RESULTS Final Result [facility] [address] [place] [address], * TH AN ENDOTRACHEAL(NO CHARGE) (01/17/2025 11:27 AM EDT) Martina Nelson CRNA - 01/17/2025 11:27 AM EDT Martina Cohng CRNA 01/17/2025 11:28 AM General Information and Staff Patient location during procedure: OR Anesthesiologist: Nathan Lucio DO Resident/ASPHALT SPREADER: Martina Chong CRNA Performed: resident/ASPHALT SPREADER/CAA Performed by: Martina Chong CRNA Authorized by: Nathan Lucio DO Intubation Airway not difficult Urgency: elective Final [...] 01/17/2025 11:24 AM EDT Martina Chong CRNA 01/17/2025 11:26 AM Arterial Line Performed by: Martina Chong CRNA Authorized by: Nathan Lucio DO Consent: Written consent obtained. Risks and benefits: risks, [...] to verify the correct patient, procedure, equipment, senior technical support engineer and site/side marked as required. [...] 11:25 AM Staffing Anesthesiologist: Nathan Lucio DO Resident/ASPHALT SPREADER: Martina Chong CRNA us Nathan Lucio DO ANESTHESIA ORDERABLES Final Result * Prepare RBC: 2 Units (01/17/2025 10:40 AM EDT) [facility] Signature Product Code [id number] 01/18/2025 6:55 AM EDT [facility] Unit Number [id number] 01/19/20 6:55 AM EDT [facility] Crossmatch Compatible 01/17/2025 10:51 AM EDT [facility] Dispense Status Released From Crossmatch 01/18/2025 6:55 AM EDT [facility] Unit ABO Rh OPOS 01/18/2025 6:55 AM EDT [facility] Unit Expiration Date Time [id number] 01/18/2025 6:55 AM EDT [facility] Unit Blood Type 5100 01/18/2025 6:55 AM EDT [facility] Product Code [id number] 01/18/2025 6:55 AM EDT [facility] Unit Number [id number] 01/19/20 6:55 AM EDT [facility] Crossmatch Compatible 01/17/2025 10:53 AM EDT [facility] Dispense Status Released From Crossmatch 01/18/2025 6:55 AM EDT [facility] Unit ABO Rh OPOS 01/18/2025 6:55 AM EDT [facility] Unit Expiration Date Time [id number] 01/18/2025 6:55 AM EDT [facility] Unit Blood Type 5100 01/18/2025 6:55 AM EDT [facility] Blood Venous blood specimen / Unknown 01/17/2025 10:40 AM EDT 01/11/2025 11:59 AM EDT Martina Chong CRNA BLOOD BANK PRODUCT ORDERABLES Final Result [facility]) [facility] [address] [place] [address], * ECG 12 lead - Procedural (No Charge) (01/11/2025 11:41 AM EDT) Ventricular Rate ECG 70 BPM GEMUSE Atrial Rate 70 BPM GEMUSE P-R Interval 254 ms GEMUSE QRS Duration 144 ms GEMUSE Q-T Interval 446 ms GEMUSE QTc 481 ms GEMUSE R Monroe -68 degrees GEMUSE T Monroe 86 degrees GEMUSE ECG Interpretation AV dual-paced rhythm with prolonged AV conduction Abnormal ECG When compared with ECG of 29-MAY-2024 10:40, Premature ventricular complexes are no longer Present Vent. rate has decreased BY 4 BPM Confirmed by MD Pedro, [place] ([id number]) on 01/12/2025 1:20:12 AM GEMUSE 01/11/2025 11:4 1 AM EDT 01/12/2025 1:20 AM EDT Jelena CHACON ECG ORDERABLES Final Result Performing Organization Address City/[facility]/ZIP Co de Phone Number GEM[facility] * Type and screen (01/11/2025 11:27 AM EDT) ABO Group O 01/11/2025 12:54 PM EDT [facility] Rh Type Positive 01/11/2025 12:54 PM EDT [facility] Antibody Screen Negative 01/11/2025 12:54 PM EDT [facility] Blood Venous blood specimen / Unknown Venipuncture / Unknown 01/11/2025 11:27 AM EDT 01/11/2025 11:59 AM EDT us Jelena CHACON LAB BLOOD BANK TEST ORDERABLE S Final Result Performing Organization Address [facility] Co de Phone Number [facility] [address] [place] [address], [place] [phone] * ANGIOGRAPHY LOWER EXT RIGHT (01/09/2025 5:16 [...] LAB COAGULATION METHOD 01/09/2025 10:41 AM EDT [facility] Blood Venous blood specimen / Unknown Venipuncture / Unknown 01/09/2025 10:23 AM EDT 01/09/2025 10:29 AM EDT Narrative [facility] - 01/09/2025 10:41 AM EDT Therapeutic range listed is for Unfractionated Heparin. LMW Heparin therapeutic range: 0.50-1.20 IU/mL us Angela CHACON LAB BLOOD ORDERABLES Final Resul t Performing Organization Address City/[facility]/ZIP Co de Phone Number [facility] [address] [place] [address], * (ABNORMAL) Comprehensive metabolic panel (01/08/2025 8:32 AM EDT) Sodium 140 133 - 145 mmol/L LAB CHEMISTRY METHOD 01/08/2025 9:24 AM [facility] Potassium 3.9 3.5 - 5.5 mmol/L LAB CHEMISTRY METHOD 01/08/2025 9:24 AM [facility] Chloride 110 96 - 110 mmol/L LAB CHEMISTRY METHOD 01/08/2025 9:24 AM [facility] CO2 26 21 - 32 mmol/L LAB CHEMISTRY METHOD 01/08/2025 9:24 AM [facility] Anion Gap 4 3 - 11 LAB CHEMISTRY METHOD 01/08/2025 9:24 AM [facility] Glucose 111(H) 70 - 100 mg/dL LAB CHEMISTRY METHOD 01/08/2025 9:24 AM [facility] BUN 27(H) 5 - 25 mg/dL LAB CHEMISTRY METHOD 01/08/2025 9:24 AM [facility] Creatinine 1.77(H) 0.70 - 1.30 mg/dL LAB CHEMISTRY METHOD 01/08/2025 9:24 AM [facility] eGFR 37(L) >=60 mL/min/1. 73m2 LAB CHEMISTRY METHOD 01/08/2025 9:24 AM [facility] Comment:Calculation based on the Chronic Kidney Disease Epidemiology Collaboration (CKD-EPI) equation refit without adjustment for race. BUN/Creatinine Ratio 15.3 LAB CHEMISTRY METHOD 01/08/2025 9:24 AM [facility] Calcium 8.5 8.5 - 10.5 mg/dL LAB CHEMISTRY METHOD 01/08/2025 9:24 AM [facility] AST (SGOT) 20 10 - 42 unit/L LAB CHEMISTRY METHOD 01/08/2025 9:24 AM [facility] ALT (SGPT) 14 10 - 60 unit/L LAB CHEMISTRY METHOD 01/08/2025 9:24 AM EDT [facility] Alkaline Phosphatase 51 42 - 121 unit/L LAB CHEMISTRY METHOD 01/08/2025 9:24 AM EDT [facility] Total Protein 6.4 6.0 - 8.0 g/dL LAB CHEMISTRY METHOD 01/08/2025 9:24 AM EDT [facility] Albumin 3.3 3.2 - 5.0 g/dL LAB CHEMISTRY METHOD 01/08/2025 9:24 AM EDT [facility] Total Bilirubin 0.4 0.0 - 1.4 mg/dL LAB CHEMISTRY METHOD 01/08/2025 9:24 AM EDT [facility] Blood Venous blood specimen / Unknown Venipuncture / Unknown 01/08/2025 8:32 AM EDT 01/08/2025 8:53 AM EDT Joselyn CHACON LAB BLOOD ORDERABLES Fin al Result [facility] [address] [place] [address], * Hemoglobin A1c (03/22/2024) Pathologist [facility] Hemoglobin A1C 6.4 <=6.5 % Blood Venous blood specimen / Unknown Historical Provider LAB BLOOD ORDERABLES Rsoa Isela l Result * HM Urine Albumin Creatinine Ratio (09/08/2023) Pathologist [facility] Urine Albumin Creatinine Ratio Abstracted Historical Provider [...] Recently Relevant to Health Maintenance Insurance MEDICARE [facility] Advance Directives Documents on File Type Date Recorded Patient Noc Technician Expl anation DNR (Do Not Resuscitate) 02/12/2025 [...] currently active code status orders. Care Teams Circuits Engineer Relationship Specialty Start Date End Date Marni Ferguson MD [address] [place] [phone] PCP - General Internal Medicine 10/26/24
[2025-03-23 10:33] LABS: Alanine Aminotransferase 11 U/L (0-40); Albumin Level 4.2 g/dL (3.5-5.0); Alkaline Phosphatase 56 U/L (39-117); Anion Gap 11 (12-20); Aspartate Amino Transferase 27 U/L (5-37); Bilirubin Total 0.3 mg/dL (0.0-1.0); Blood Urea Nitrogen 27 mg/dL (9-16); Carbon Dioxide 25 mmol/L (22-29); Chloride 109 mmol/L (96-108); Cholesterol 122 mg/dL (<200); Estimated Glomerular Filt Rate 35; Glucose Random 107 mg/dL (60-115); HDL Cholesterol 30 mg/dL (>40); LDL Cholesterol Calculated 55 mg/dL (<100); Potassium 4.1 mmol/L (3.3-5.1); Sodium 141 mmol/L (135-145); Total Protein 6.6 g/dL (6.5-8.0); Triglycerides 185 mg/dL (<150)
[2025-03-23 10:55] LABS: Estimated Average Glucose 120 mg/dL; Hemoglobin A1c % 5.8 % (<6.0)
[2025-03-23 11:12] LABS: Creatinine Urine 131.71 mg/dL; Microalbum/Creatinine Ratio Ur 143.4 ug/mg cr (<30)
== END 2025-03-23 08:53 | disposition home or self-care (01) ==
LOC: HO.HMGCLDS 08:52
PROVIDERS: PCP Physician Assistant Medical; Visit Provider Physician Assistant
DX: N18.4 Chronic kidney disease, stage 4 (severe) (principal); Z79.4 Long term (current) use of insulin; I10 Essential (primary) hypertension; E78.5 Hyperlipidemia, unspecified; E11.42 Type 2 diabetes mellitus with diabetic polyneuropathy; E11.22 Type 2 diabetes mellitus with diabetic chronic kidney disease
CPT/HCPCS: 36415; 80053; 80061; 82043; 82570; 83036

== ENCOUNTER 2025-03-30 13:03 | Outpatient (AMB) | payer MEDICARE, OTHER, SELFPAY ==
--- NOTE | 2025-03-30 13:05 | A.OFFVIS_ITS ---
Vital Signs 03/30/25 13:06 Height 5 ft 9 in Weight 186 lb 11.704 oz BMI 27.6 BP 136/60 Blood Pressure Location Rt brachial Position Sitting Pulse 74 Pulse Source Pulse Oximeter Pulse Oximetry (%) 100 Oxygen Delivery Method Room Air Intake Visit Reasons: Type II Diabetes Intake Note: Patient present today for Type 2 Diabetes Mellitus Last Diabetic eye exam: 2023 Last Podiatry Visit: February 2025 Random Glucose: 160 mg/dl HgA1C: 5.8% 03/23/25 Clerical Manager Required: No Accompanied by: Spouse Allergies Iodinated Contrast Media (IV Dye, Iodine Containing) Allergy (Severe, Verified 03/30/25 13:11) SWELLING sulfamethoxazole (From Bactrim) Allergy (Severe, Verified 03/30/25 13:11) SWELLING RASH tetracycline (Tetracycline) Allergy (Severe, Verified 03/30/25 13:11) SWELLING , RASH trimethoprim (From Bactrim) Allergy (Severe, Verified 03/30/25 13:11) SWELLING RASH Sulfa (Sulfonamide Antibiotics) Allergy (Unknown, Verified 03/30/25 13:11) hives IVP dye Allergy (Unknown, Uncoded 03/30/25 13:11) Anaphylaxis Renée Dry Allergy (Unknown, Uncoded 03/30/25 13:11) rash tetracycline Allergy (Unknown, Uncoded 03/30/25 13:11) hives Medication List - Last Reconciled 03/30/25 by Bibi Cruz PA-C aspirin 81 mg PO DAILY atenolol 50 mg PO DAILY atorvastatin 80 mg PO BEDTIME blood sugar diagnostic (FreeStyle Lite Strips) 1 strip miscellaneous BID colchicine 0.6 mg PO DAILY cyanocobalamin (vitamin B-12) ER 1,000 mcg PO DAILY fenofibrate nanocrystallized (Tricor) 145 mg PO DAILY flash glucose scanning reader (FreeStyle Vivek 14 Day [place]) As directed flash glucose sensor (FreeStyle Vivek 14 Day Sensor kit) USE DIRECTED AND CHANGE EVERY 14 DAYS, 90 days foot care products Wear diabetic shoes daily As directed foot care products Diabetic shoes and insoles. Use daily as directed furosemide 20 mg PO DAILY insulin degludec (Tresiba FlexTouch U-200 insulin) 10 units (0.05 mL) subcut .nightly lansoprazole 30 mg PO DAILY lorazepam 0.5 mg PO BEDTIME PRN nitroglycerin 0.4 mg sublingual Q5M PRN pen needle, diabetic (BD Ultra-Fine Micro Pen Needle) As directed; twice daily semaglutide (Ozempic) 2 mg (0.75 mL) subcut QWEEK tapentadol ER (Nucynta ER) 50 mg PO BID HPI HPI Type II Diabetes: Details: Patient is an 84-year-old male with a significant past medical history of stage 3b kidney disease, diabetic neuropathy, type 2 diabetes, hypertension, PAD and hyperlipidemia presenting today for a diabetic follow-up. -He wants to switch pcp offices Endo: His A1c was 5.8. He is currently on tresiba 10 units, Ozempic 2 mg weekly. -weight is stable cgm-usage is at the 66%. He is within target 99% time, 1% high, 0% hypoglycemic. He does suffer from significant painful neuropathy. He has tried gabapentin 300 mg 2 to 3 times a day without significant improvement. He has tried Nucynta but that is not as effective. Vasc: He follows with vascular surgery from [place]. 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 He is on atenolol 50 mg, furosemide 20 mg. Cholesterol is controlled with atorvastatin 80 mg and Tricor 145 mg. Nephro: Follows with Dr. Hill. Discussed possible jardiance and he declines. [facility] Medical History (Updated 03/02/25 @ 12:59 by Lexi Eddy [facility]) Aneurysm of left leg Surgery, elective Obesity due to excess calories Hx of aneurysm Hx of myocardial infarction Carpal tunnel syndrome Throat cancer Ischemic colitis Pacemaker Diverticulitis BPH (benign prostatic hyperplasia) Type 2 diabetes mellitus with chronic kidney disease Chronic kidney disease, stage 3 Type 2 diabetes mellitus with diabetic polyneuropathy Essential hypertension Hyperlipidemia LDL goal <70 Surgical History History of back surgery H/O neck surgery History of prostate surgery Hx of angioplasty Hx of hernia repair Hx of tonsillectomy Family History Father Prostate cancer Mother Breast cancer Diabetes Social History Household Members: Spouse Patient Tobacco Use Status: Former Tobacco user Tobacco use type: Cigarette Cigarettes Per Day: 10 Years Smoked: 40 Physical Exam Vital Signs: Last Vital Signs Pulse 74 03/30/25 13:06 BP 136/60 03/30/25 13:06 Pulse Ox 100 03/30/25 13:06 Oxygen Delivery Method Room Air 03/30/25 13:06 BMI result Body Mass Index 27.6 Const Orientation/consciousness: patient oriented x3 HEENT Ears: hearing grossly normal bilaterally Neck Thyroid: Thyroid normal Lymphatic: no lymphadenopathy noted Resp Auscultation: clear to auscultation bilaterally Cardio Rate: regular rate Rhythm: regular rhythm Heart sounds: S1 normal heart sound present and S2 normal heart sound present Skin General skin exam: no rashes or lesions noted Neuro General: patient oriented x3, gait normal and no focal motor deficits Results Reviewed Results Reviewed: Laboratory Tests 03/23/25 09:00 Urine Creatinine 131.71 Urine Microalbumin 189.0 Microalb/Creat Ratio 143.4 H Assessment & Plan Assessment & Plan (1) Type 2 diabetes mellitus with chronic kidney disease: Code(s): E11.22 - Type 2 diabetes mellitus with diabetic chronic kidney disease Category: Medical Qualifiers: Diabetes mellitus detention insulin use: with detention use Chronic kidney disease stage: stage 4 (severe) Qualified Code(s): E11.22 - Type 2 diabetes mellitus with diabetic chronic kidney disease; N18.4 - Chronic kidney disease, stage 4 (severe); 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 No longer able to get the Vivek 2. I have ordered the 3+ with the reader. He does not have access to a smart phone. He is continuing on the Tresiba. No hypoglycemic events. Very well-controlled. He will also continue with the Ozempic 2 mg weekly. (2) Chronic painful diabetic neuropathy: Code(s): E11.40 - Type 2 diabetes mellitus with diabetic neuropathy, unspecified Category: Medical Plan: Increase gabapentin to 600 mg 3 times a day. (3) Essential hypertension: Code(s): I10 - Essential (primary) hypertension Category: Medical Plan: WNL. 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 ([employer] Vivek 3 [place]) Use daily As directed to monitor blood glucose 1 ea 0RF E11.65 - Type 2 diabetes mellitus with hyperglycemia, Z79.4 - assisted (current) use of insulin blood-glucose sensor (FreeStyle Vivek 3 Plus Sensor device) Use daily As directed to monitor glucose 2 ea 5RF E08.29 - Diabetes mellitus due to underlying condition with other diabetic kidney complication, R80.9 - Proteinuria, unspecified, Z79.4 - [employer] (current) use of insulin blood-glucose sensor (FreeStyle Vivek 3 Plus Sensor device) Use daily As directed to monitor glucose 6 ea 3RF E08.29 - Diabetes mellitus due to underlying condition with other diabetic kidney complication, R80.9 - Proteinuria, unspecified, Z79.4 - [employer] (current) use of insulin gabapentin 600 mg (2 x 300 mg) PO TID 540 caps 3RF 90 days Discontinued flash glucose sensor (FreeStyle Vivek 14 Day Sensor kit) Discontinued Reason: Duplicate USE DIRECTED AND CHANGE EVERY 14 DAYS, 90 days 6 ea 3RF E11.42 - Type 2 diabetes mellitus with diabetic polyneuropathy, Z79.4 - assisted (current) use of insulin flash glucose scanning reader (FreeStyle Vivek 14 Day [place]) Discontinued Reason: Doctor's Order As directed 1 ea 0RF E11.22 - Type 2 diabetes mellitus with diabetic chronic kidney disease, N18.4 - Chronic kidney disease, stage 4 (severe), Z79.4 - assisted (current) use of insulin Coding Level of Care Code Est Pt Level 4 (76542) Complex EM visit Add On G2211 Diagnoses Type 2 diabetes mellitus with stage 4 chronic kidney disease, with long-term current use of insulin E11.22; N18.4; Z79.4 Diabetes mellitus detention insulin use: with manager long term care use Chronic kidney disease stage: stage 4 (severe) Chronic painful diabetic neuropathy E11.40 Essential hypertension I10
[2025-03-30 13:06] VITALS: BP 136/60; PULSE 74; O2SAT 100; BMI 27.6
--- OUTSIDE RECORDS SUMMARY | 2025-03-30 13:38 | XMS_ITS | Clinical Summary ---
Author Organization [address] [facility] Address [address] [place] [address] Phone Care Team Providers Care Glycerin Supervisor Name Role Phone Marni Ferguson MD Primary Care Provider [phone] Allergies Active Allergy Reactions Criticality Noted Date [...] flash glucose scanning reader (FreeStyle Vivek 2 [place]) misc 1 Product by Does not apply [...] tabletIndications :Gangrene of toe of right foot ([facility] V24, [facility] V28),Ischemic leg Take 2 tablets (10 mg total) by mouth every 4 (four) hours if needed for severe pain. Status post incision and drainage and amputation of toe Max Daily Amount: 60 mg 15 tablet 5 Active Active Problems Problem Noted Date Diagnosed Date Gangrene of toe of right foot ([facility] V24, [facility] V28) 02/05/2025 Ischemic leg 01/08/2025 Occlusion of arterial bypass graft ([facility] V24) 10/26/2024 Acute deep vein thrombosis ( DVT) of femoral vein of right lower extremity ([facility] V24, [facility] V28) 10/26/2024 Diabetic neuritis ([facility] V24, [facility] V28) Hypertension 08/29/2024 Lumbar spondylosis 09/22/2022 Overview (08/29/2024): Last Assessment & Plan: Mr. Omalley underwent bilateral radiofrequency ablation on 10/08/[address] [facility] with some improvement lasting 1 month. [...] Bacterial pneumonia 04/21/2022 CHF (congestive heart failure) ([facility] V24, [facility] V28) 04/21/2022 Gastrointestinal hemorrhage 04/21/2022 Neuropathy 04/21/2022 SSS (sick sinus syndrome) ([facility] V24, [facility] V28) 04/21/2022 Overview (08/29/2024): Last Assessment & Plan: This is been stable. He is status post pacemaker generator replacement as he was end-of-life. This is working well. He is feeling better now that his heart rates are in the higher range. Acute hypoxemic respiratory failure ([facility] V24, [facility] V28) 04/21/2022 Heart block AV complete ([facility] V24, [facility] V2 8) 04/01/2022 AAA (abdominal aortic aneurysm) ([facility] V24) Overview (08/29/2024): Last Assessment & Plan: He had a repeat echo done recently. This showed no changes when compared to before. He has been followed by vascular surgery. Malignant neoplasm of right vocal cord ([facility] V24, [facility] V28) 11/06/2020 CKD (chronic kidney disease) stage 3, GFR 30-59 ml/min ([facility] V24, [facility] V28) 11/06/2020 Anxiety 08/09/2020 BPH (benign prostatic hyperplasia) 08/09/2020 Coronary artery disease invo lving [place] heart without angina pectoris 08/09/2020 Overview (08/29/2024): [...] lifestyle choices and diet. Peripheral vascular disease ([facility] V24) 2019 Overview (08/29/2024): Last Assessment & Plan: This is stable. Again this is being followed by Dr. Banks. He states that he will be getting a lower extremity arterial study done in the next couple weeks. ST elevation myocardial infa rction (STEMI) ([facility] V24, [facility] V28) 08/09/2020 Overview (08/29/2024): Last Assessment & [...] low cholesterol diet and exercise. 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 ([facility] V24, [facility] V28) 08/09/2020 Type 2 diabetes mellitus wit h renal manifestations ([facility] V24, [facility] V28) 08/09/2020 Resolved Problems Problem Noted Date Diagnosed Date Resolved Date Critical limb ischemia of ri ght lower extremity ([facility] V24, [facility] V28) 01/08/2025 Epistaxis 10/28/2024 10/28/2024 Encounters Date Type Department Care Team Description 02/27/2025 8:30 AM EDT Office Visit [facility] - [place] [address] [facility] [address] [place] [address] Andie Chua PA PAD (peripheral artery disease) ([facility] V24) (Primary Dx); Infrarenal abdominal aortic aneurysm (AAA) without rupture ([facility] V24); History of amputation of fourth toe ([facility] V24) 02/21/2025 7:25 PM EDT Ancillary Procedure [facility] - [facility] [address] [facility] [address] [place] [address] 02/07/2025 1:22 PM EDT Anesthesia Event [facility] OR [address] [place] [phone] Kinjal Katz MD Millay, Julia, CRNA 02/07/2025 12:30 PM EDT - 02/07/2025 1:45 PM EDT Surgery [facility] OR [address] [place] [phone] Ahmet Banks MD INCISION DRAINAGE RIGHT FOOT 4TH MTP BONE CORTEX, WASHOUT AND WOUND CLOSURE & RIGHT FOOT SUTURE REMOVAL 02/06/2025 1:00 PM EDT - 02/06/2025 2:15 PM EDT Surgery [facility] OR [address] [place] [phone] Ahmet Banks MD RIGHT 4TH TOE OPEN AMPUTATION, REMOVAL SUTURE RIGHT INNER THIGH 02/06/2025 9:42 AM EDT Anesthesia Event [facility] OR [address] [place] [phone] Ezekiel Hudson MD Kriz, Petra, MD 02/05/2025 2:26 PM EDT - 02/09/2025 5:33 PM EDT Hospital Encounter [facility] [address] [place] [phone] Ju Valdez MD Surendran, Anupama, MD Zipagan, James T, MD Gangrene of toe of right foot ([facility] V24, [facility] V28) (Primary Dx); Gangrene ([facility] V24, [facility] V28); Osteomyelitis of fourth toe of right foot ([facility] V24, [facility] V28); Ischemic leg Discharge Disposition: Home-Health Care [facility] 02/05/2025 1:15 PM EDT Office Visit Vascular Surgery - [place] [address] [phone] Ahmet Banks MD Critical limb ischemia of right lower extremity with ulceration of foot ([facility] V24, [facility] V28) (Primary Dx); PAD (peripheral artery disease) ([facility] V24); Infrarenal abdominal aortic aneurysm (AAA) without rupture ([facility] V24) 01/17/2025 11:00 AM EDT - 01/17/2025 3:30 PM EDT Surgery [facility] OR [address] [place] [phone] Ahmet Banks MD RIGHT FEMORAL DORSALIS PEDIS BYPASS WITH CRYOPRESERVED VEIN, RIGHT SUPERFICIAL FEMORAL ARTERY ENDARTERECTOMY WITH BIOLOGIC PATCH, REDO BYPASS [[id number] (CPT )] 01/17/2025 10:52 AM EDT Anesthesia Event [facility] OR [address] [place] [phone] Bharathi Maguire DO Hard, Shannon, CRNA 01/17/2025 9:25 AM EDT - 01/21/2025 10:04 AM EDT Hospital Encounter [facility] [address] [place] [phone] Ahmet Banks MD Levrault, Richard, DO Flores, Carlos M, MD Seralathan, Manikandan, MD Critical limb ischemia of right lower extremity (CMS/HCC V24, CMS/HCC V28) Discharge Disposition: Home-Health Care Svc 01/15/2025 Telephone [facility] Surgery - [place] [address] [place] [phone] Ahmet Banks MD Med Management 01/11/2025 Telephone [facility] Surgery - [place] [address] [place] [phone] Ahmet Banks MD cardiac Clearance 01/11/2025 Telephone [facility] Cardiology [address] [place] [phone] Marni Ferguson MD 01/09/2025 6:00 PM EDT - 01/09/2025 8:00 PM EDT Surgery [facility] Setter [address] [place] [phone] Ahmet Banks MD Angiography lower ext right 01/08/2025 7:30 AM EDT - 01/10/2025 1:15 PM EDT Hospital Encounter [facility] [address] [place] [phone] Ju Valdez MD Mohani, Priya, MD Critical [...] AM EDT Office Visit [facility] Surgery - [place] [address] [place] [phone] Ahmet Banks MD Critical limb ischemia of right lower extremity with ulceration of foot (CMS/HCC V24, [facility] V28) (Primary Dx) from Last 3 Months Immunizations Name Administration [...] Site/Laterality Comments KNEE ARTHROSCOPY 2009 Right PROCEDURE: CA ARTHROSCOPY KNEE DIAGNOSTIC W/WO SYNOVIAL BX SPX; COMMENT: Meniscus TURP / TRANSURETHRAL INCISIO N / DRAINAGE PROSTATE 2004 PROCEDURE: HISTORICAL TURP OTHER SURGICAL HISTORY PROCEDURE: CA DUP-SCAN LXTR ART/ARTL BPGS UNI/LMTD STUDY; COMMENT: Angioplasty and stenting of the left leg PACEMAKER IMPLANT PROCEDURE: HISTORICAL PACEMAKER COLONOSCOPY 2011 PROCEDURE: HISTORICAL COLONOSCOPY OTHER SURGICAL HISTORY PROCEDURE: CA BIOPSY OROPHARYNX; COMMENT: Throat cancer had radiation x6 weeks [facility] EYE SURGERY PROCEDURE: HISTORICAL EYE SURGERY; COMMENT: [place] TONSILLECTOMY PROCEDURE: HISTORICAL TONSILLECTOMY OTHER SURGICAL HISTORY PROCEDURE: ---- HEMORRHOIDS ---- HERNIA REPAIR Bilateral PROCEDURE: REPAIR INGUINAL HERNIA CORONARY ARTERY BYPASS GRAFT 1996 PROCEDURE: HISTORICAL CABG; COMMENT: x4 NECK SURGERY PROCEDURE: HISTORICAL NECK SURGERY CARPAL TUNNEL RELEASE Right PROCEDURE: CA NEUROPLASTY &/TRANSPOS MEDIAN NRV CARPAL TUNNE; COMMENT: dr. cazares BACK SURGERY 10/08/2022 Bilateral PROCEDURE: HISTORICAL BACK SURGERY; COMMENT: Bilateral L3, L4 and L5 radiofrequency neurotomy Dr. Sahu OTHER SURGICAL HISTORY 06/15/2023 PROCEDURE: CA SLCTV CATHJ 3RD+ ORD SLCTV ABDL PEL/LXTR BRNCH OTHER SURGICAL HISTORY 06/15/2023 PROCEDURE: CA SLCTV CATHJ EA 2ND+ ORD ABDL PEL/LXTR ART BRNCH OTHER SURGICAL HISTORY 06/15/2023 PROCEDURE: X-RAY EXAM OF ARM/LEG ARTERY OTHER SURGICAL HISTORY 06/15/2023 PROCEDURE: ULTRASOUND GUIDANCE FOR VASCULAR AC OTHER SURGICAL HISTORY 06/01/2024 PROCEDURE: CA EVASC RPR DPLMNT [id number] NDGFT OTHER SURGICAL HISTORY 06/01/2024 PROCEDURE: CA OPN ILIAC ART EXPOS PROSTH/ILIAC OCCLS EVASC UNI OTHER SURGICAL HISTORY 06/01/2024 PROCEDURE: CA PERQ ACCESS & CLOSURE FEM ART FOR DELIVERY NDGFT OTHER SURGICAL HISTORY 06/01/2024 PROCEDURE: CA REVASC INTRAVASC LITHOTRIPSY OTHER SURGICAL HISTORY 06/28/2024 Left PROCEDURE: CA BYP OTH/THN VEIN FEM-ANT TIBL PST TIBL/PRONEAL Medical History Medical History Date Comments 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 ([facility] V24, [facility] V28) 08/09/2020 DX:Type 2 diabetes mellitus with neurological manifestation ([facility]) CKD (chronic kidney disease) stage 3, GFR 30-59 ml/min ([facility] V24, [facility] V28) 11/06/2020 DX:CKD (chronic kidney disea se) stage 3, GFR 30-59 ml/min ([facility]) Type 2 diabetes mellitus wit h renal manifestations ([facility] V24, [facility] V28) 08/09/2020 DX:Type 2 diabetes mellitus with renal manifestations ([facility]) CAD (coronary artery disease) 08/09/2020 DX :CAD (coronary artery disease); COMMENT: Multiple stenting procedures x 5. Pacemaker 08/09/2020 DX:Pacemaker ST elevation myocardial infa rction (STEMI) ([facility] V24, [facility] V28) 08/09/2020 DX:ST elevation hesham cardial infarction (STEMI) ([facility]) Throat cancer ([facility] V24, [facility] V28) 08/09/2020 DX:Throat cancer ([facility]); COMM ENT: 2020: received RT Hyperlipidemia 08/09/2020 DX:Hyperlipidemi a HTN (hypertension) 08/09/2020 DX:HTN (hyper tension) History of diverticulitis 08/09/2020 DX:His tory of diverticulitis Peripheral vascular disease ([facility] V24) 08/09/2020 DX:Peripheral vascular disea se ([facility]) Diabetic neuritis (CMS/HCC V 24, [facility] V28) 08/09/2020 DX:Diabetic neuritis (HCC) Gastroesophageal reflux dise ase without esophagitis 08/09/2020 DX:Gastroesophageal reflux d isease without esophagitis Anxiety 08/09/2020 DX:Anxiety Malignant neoplasm of right vocal cord ([facility] V24, [facility] V28) 11/06/2020 DX:Malignant neoplasm of ri ght vocal cord (HCC) Squamous cell carcinoma in [...] Description 05/24/2025 11:00 AM EDT Ancillary Procedure [facility] - [facility] [address] [facility] [address] [place] [phone] 05/24/2025 12:00 PM EDT Ancillary Procedure [facility] - [facility] [address] [place] [address] 06/25/2025 11:00 AM EDT Office Visit Vascular Surgery - [place] [address] [facility] [address] [place] [phone] Ahmet Banks MD [address] [place] [address] Health Maintenance Due Date Last Done Comments [...] this topic Medical Devices Implanted Type Area Manager Council Device Identifier Shelf Expiration Date Model / Serial / Lot Medt-Card Kittrell Xt Dr Artis [id number] Implanted: (Quantity not on file) Cardiac Pacemaker [employer] - CARDIAC RHYTH-[facility] KENDELL XT DR ARTIS [id number] / [id number] / Hemostat Absorb Surgicel 2x4in Fibrillar - Sn/A - [id number] Implanted:Qty : 1 on 01/17/2025 by Ahmet Banks MD at [facility] Hemostasis Right: Leg [employer] 07/03/2027 1962 / N/A / [id number] Sealant Fibrin Vistaseal 4ml - [id number] - [id number] Implanted:Qty : 1 on 01/17/2025 by Ahmet Banks MD at [facility] Hemostasis Right: Leg [employer] [id number] 07/18/2026 VST04 / [id number] / [id number] Hemostat Absorb 1x2 Surgicel Fibrillar - Sn/A - [id number] Implanted:Qty : 1 on 02/07/2025 by Ahmet Banks MD at [facility] Hemostasis Right: Foot [employer] 07/03/2026 1961 / N/A / [id number] Vein Saphns 50-59cm A B Ab O Blood Type - [id number] - [id number] Implanted:Qty : 1 on 01/17/2025 by Ahmet Banks MD at [facility] [employer] Right: Leg [employer] 04/05/2029 [id number] / [id number] / [id number] Patch Biol Xenosure .8x8cm - Sn/A - [id number] Implanted:Qty : 1 on 01/17/2025 by Ahmet Banks MD at [facility] Vascular Grafts Right: Leg [employer] 12/29/2029 E0.8P8 / N/A / [id number] Procedures Procedure Name Priority Date/Time Associated [...] LINE (CHARGE) Routine 01/17/2025 11:24 AM EDT CA BYPASS GRAFT W OTHER THAN VEIN FEMORAL-ANT/POST [...] Routine 01/09/2025 11 :17 AM EDT HEPARIN AND LOW MOLECULAR WEIGHT ANTI XA LEVEL STAT 01/09/2025 10:23 AM EDT POCT GLUCOSE BLOOD Routine 01/09/2025 7: 49 AM EDT COMPLETE BLOOD COUNT Routine 01/09/2025 4:06 AM EDT BASIC METABOLIC PANEL Routine 01/09/2025 4:06 AM EDT HEPARIN AND LOW MOLECULAR WEIGHT ANTI XA LEVEL STAT 01/09/2025 4:06 AM EDT HEPARIN AND LOW MOLECULAR WEIGHT ANTI XA LEVEL Routine 01/08/2025 10:08 PM EDT POCT GLUCOSE BLOOD Routine 01/08/2025 7: 23 PM EDT HEPARIN AND LOW MOLECULAR WEIGHT ANTI XA LEVEL STAT 01/08/2025 7:12 PM EDT HEPARIN AND LOW MOLECULAR WEIGHT ANTI XA LEVEL STAT 01/08/2025 4:33 PM EDT POCT GLUCOSE BLOOD Routine 01/08/2025 4: 10 PM EDT POCT GLUCOSE BLOOD Routine 01/08/2025 12 :38 PM EDT HEPARIN AND LOW MOLECULAR WEIGHT ANTI XA LEVEL STAT Add-on 01/08/2025 8:32 AM EDT CBC [...] RATIO Routine 09/08/2023 LIPID PANEL Routine 09/08/2023 HM DIABETES FOOT EXAM Routine 09/07/2023 from Last 3 Months or Most Recently Relevant to Health Maintenance Results * Cardiac device check - Remote- MURJ (02/21/2025 7:24 PM EDT) Date Time Interrogation Session [id number] CV DEVICE CHECK Type Interrogation Session Remote CV DEVICE CHECK Implantable Pulse Generator Manager Council MDT CV DEVICE CHECK Implantable Pulse Generator Type IPG CV DEVICE CHECK Implantable Pulse Generator Model Kittrell XT DR MRI [id number] CV DEVICE CHECK Implantable Pulse Generator Serial Number [id number] CV DEVICE CHECK Implantable Pulse Generator Implant Date [id number] CV DEVICE CHECK Battery Remaining Longevity 101.0 CV DEVICE CHECK Battery Voltage 3.000 CV D EVICE CHECK Battery CAR REPOSSESSOR Trigger 2.625 CV DEVICE CHECK Battery Status Middle of Service CV DEVICE CHECK Jag Statistic RA Percent Paced 98.75 CV DEVICE CHECK Jag Statistic RV Percent Paced 99.82 CV DEVICE CHECK Atrial Tachy Statistic AT/AF [place] Percent 0.00 CV DEVICE CHECK Lead Channel [...] LAB HEMETOLOGY METHOD 02/09/2025 7:14 AM EDT [facility] RBC 2.40(L) 4.50 - 5.50 M/mcL LAB HEMETOLOGY METHOD 02/09/2025 7:[address] [facility] Hemoglobin 8.3(L) 13.5 - 17.5 g/dL LAB HEMETOLOGY METHOD 02/09/2025 7:[address] [facility] Hematocrit 25.5(L) 42.0 - 54.0 % LAB HEMETOLOGY METHOD 02/09/2025 7:[address] [facility] MCV 108.1(H) 79.0 - 98.0 FL LAB HEMETOLOGY METHOD 02/09/2025 7:[address] [facility] MCH 35.2(H) 27.0 - 32.0 pcg LAB HEMETOLOGY METHOD 02/09/2025 7:[address] [facility] MCHC 32.5 32.0 - 37.0 g/dL LAB HEMETOLOGY METHOD 02/09/2025 7:[address] [facility] RDW 16.8(H) 11.0 - 15.0 % LAB HEMETOLOGY METHOD 02/09/2025 7:[address] [facility] Platelets 206 130 - 400 K/mcL LAB HEMETOLOGY METHOD 02/09/2025 7:[address] [facility] MPV 9.7 7.0 - 11.0 FL LAB HEMETOLOGY METHOD 02/09/2025 7:[address] [facility] NRBC 0.0 <1.0 % LAB HEMETOLOGY METHOD 02/09/2025 7:[address] [facility] NRBC Absolute 0.00 <0.10 K/mcL LAB HEMETOLOGY METHOD 02/09/2025 7:[address] [facility] Neutrophils Relative 57.5 % LAB HEMETOLOGY METHOD 02/09/2025 7:[address] [facility] Lymphocytes Relative 19.7 % LAB HEMETOLOGY METHOD 02/09/2025 7:[address] [facility] Monocytes Relative 13.9 % LAB HEMETOLOGY METHOD 02/09/2025 7:[address] [facility] Eosinophils Relative 7.6 % LAB HEMETOLOGY METHOD 02/09/2025 7:[address] [facility] Basophils Relative 1.0 % LAB HEMETOLOGY METHOD 02/09/2025 7:[address] [facility] Immature Granulocytes Relative 0.3 % LAB HEMETOLOGY METHOD 02/09/2025 7:[address] [facility] Neutrophils Absolute 3.63 1.50 - 7.00 K/mcL LAB HEMETOLOGY METHOD 02/09/2025 7:[address] [facility] Lymphocytes Absolute 1.24 1.00 - 5.00 K/mcL LAB HEMETOLOGY METHOD 02/09/2025 7:[address] [facility] Monocytes Absolute 0.88 0.20 - 1.00 K/mcL LAB HEMETOLOGY METHOD 02/09/2025 7:[address] [facility] Eosinophils Absolute 0.48 0.00 - 0.50 K/mcL LAB HEMETOLOGY METHOD 02/09/2025 7:[address] [facility] Basophils Absolute 0.06 0.00 - 0.20 K/mcL LAB HEMETOLOGY METHOD 02/09/2025 7:[address] [facility] Immature Granulocytes Absolute 0.02 0.00 - 0.03 K/mcL LAB HEMETOLOGY METHOD 02/09/2025 7:[address] [facility] Blood Venous blood specimen / Unknown Venipuncture / Unknown 02/09/2025 6:20 AM EDT 02/09/2025 6:58 AM EDT us Ulisses Shook MD LAB BLOOD ORDERABLES Final Re sult [facility] [address] [place] [address], * (ABNORMAL) Basic metabolic panel (02/09/2025 6:20 AM EDT) Only the most recent of12 resultswithin the time period is included. Sodium 139 133 - 145 mmol/L LAB CHEMISTRY METHOD 02/09/2025 7:[address] [facility] Potassium 3.8 3.5 - 5.5 mmol/L LAB CHEMISTRY METHOD 02/09/2025 7:[address] [facility] Chloride 109 96 - 110 mmol/L LAB CHEMISTRY METHOD 02/09/2025 7:[address] [facility] CO2 23 21 - 32 mmol/L LAB CHEMISTRY METHOD 02/09/2025 7:[address] [facility] Anion Gap 7 3 - 11 LAB CHEMISTRY METHOD 02/09/2025 7:[address] [facility] Glucose 106(H) 70 - 100 mg/dL LAB CHEMISTRY METHOD 02/09/2025 7:[address] [facility] BUN 25 5 - 25 mg/dL LAB CHEMISTRY METHOD 02/09/2025 7:[address] [facility] Creatinine 1.80(H) 0.70 - 1.30 mg/dL LAB CHEMISTRY METHOD 02/09/2025 7:[address] [facility] eGFR 36(L) >=60 mL/min/1. 73m2 LAB CHEMISTRY METHOD 02/09/2025 7:[address] [facility] Comment:Calculation based on the Chronic Kidney Disease Epidemiology Collaboration (CKD-EPI) equation refit without adjustment for race. BUN/Creatinine Ratio 13.9 LAB CHEMISTRY METHOD 02/09/2025 7:[address] [facility] Calcium 8.6 8.5 - 10.5 mg/dL LAB CHEMISTRY METHOD 02/09/2025 7:41 AM EDT [facility] Blood Venous blood specimen / Unknown Venipuncture / Unknown 02/09/2025 6:20 AM EDT 02/09/2025 6:57 AM EDT Ulisses Shook MD LAB BLOOD ORDERABLES Final Re sult Performing Organization Address [facility]/ZIP Co de Phone Number [facility] [address] [place] [address], [place] [phone] * (ABNORMAL) POCT Glucose, blood (02/08/2025 7:48 PM EDT) Only the most recent of37 resultswithin the time period is included. Glucose POCT 150(H) 70 - 100 mg/dL 02/08/2025 7:48 PM EDT [facility] Blood Capillary blood specimen / Unknown 02/08/2025 7:48 PM EDT 02/08/2025 7:49 PM EDT Ulisses Shook MD LAB POINT OF CARE TE ST DOCKED DEVICE UNSOLICITED RESULTS Final Result Performing Organization Address [facility] de Phone Number [facility] [address] [place] [address], [place] [phone] * Vancomycin, trough Please draw level 1 hour prior to vancomycin administration (02/08/2025 1:11 PM EDT) Pathologist [facility] Vancomycin Trough 11.5 10.0 - 20.0 mcg/mL LAB CHEMISTRY METHOD 02/08/2025 2:11 PM EDT [facility] Blood Venous blood specimen / Unknown Venipuncture / Unknown 02/08/2025 1:11 PM EDT 02/08/2025 1:21 PM EDT Andie CHACON LAB BLOOD ORDERABLES Final Res ult [facility] LAB [address] [place] [address], [place] [phone] * XR Foot 2 Views Right (02/07/2025 2:49 PM EDT) Anatomical Region Laterality Modality Lower Extremities, Foot Right [facility] 02/07/2025 3:11 PM EDT Impressions 02/07/2025 [...] Signed Date: 02/07/2025 15:11 ET Workstation ID: [id number] Transcribed By: Self Edit Transcribed Date: 02/07/2025 [...] Sravani Pederson Reviewed and Electronically Signed By: Sravnai Pederson Signed Date: 02/07/2025 15:11 ET Workstation ID: [id number] Transcribed By: Self Edit Transcribed Date: 02/07/2025 15:11 ET us [facility] IMG XR PROCEDURES Final Result * Tissue exam (02/07/2025 1:49 PM EDT) Only the most recent of3 resultswithin the time period is included. Final Diagnosis Right 4th metatarsal bone margin: -VIABLE APPEARING BONE 02/09/2025 11:57 AM EDT [facility] Gross Description A. Foot, Right, [...] decalcification . TS 02/09/2025 11:57 AM EDT [facility] Disclaimer Unless otherwise specified, all tissue is 10% NB formalin fixed and paraffin embedded. 02/09/2025 11:57 AM EDT [facility] Bone Structure of right foot / Unknown 02/07/2025 1:49 PM EDT 02/07/2025 3:37 PM EDT us Ahmet Banks MD LAB PATHOLOGY ORDERABLES Final Result [facility] [address] [place] [address], * Culture tissue with gram stain (02/07/2025 1:48 PM EDT) Culture, Tissue No growth aerobically and anaerobically at 5 days. 02/12/2025 9:14 AM EDT [facility] Gram Stain Result No polymorphonuclear leukocytes, No epithelial cells, and No organisms noted 02/12/2025 9:14 AM EDT [facility] Tissue Structure of right foot / Unknown 02/07/2025 1:48 PM EDT 02/07/2025 2:27 PM EDT us Ahmet Banks MD LAB MICROBIOLOGY - GENERAL VLADIMIR GREWAL Final Result Performing Organization Address [facility]/ZIP Co de Phone Number [facility] [address] [place] [address], [place] [phone] * Culture bone (02/07/2025 1:48 PM EDT) Culture, Bone No growth aerobically and anaerobically at 5 days. 02/12/2025 9:15 AM EDT [facility] Gram Stain Result Rare Polymorphonuclear leukocytes 02/12/2025 9:15 AM EDT [facility] Gram Stain Result No Epithelial cells 02/12/2025 9:15 AM EDT [facility] Gram Stain Result No organisms seen 02/12/2025 9:15 AM EDT [facility] Bone Structure of right foot / Unknown 02/07/2025 1:48 PM EDT 02/07/2025 2:28 PM EDT us Ahmet Banks MD LAB MICROBIOLOGY - GENERAL VLADIMIR GREWAL Final Result Performing Organization Address [facility] Co de Phone Number [facility] [address] [place] [address], [place] [phone] * TH AN LMA(NO CHARGE) (02/07/2025 1:32 PM EDT) Lainey Castellanos CRNA - 02/07/2025 1:32 PM EDT Lainey [...] GEMUSE QTc 451 ms GEMUSE P Wave Redding -20 degrees GEMUSE R Redding -56 degrees GEMUSE T Redding 72 degrees GEMUSE ECG Interpretation AV dual-paced [...] during procedure: OR Anesthesiologist: Monae Borges MD Resident/ORDER DETAILER: Romi Price CRNA Other anesthesia staff: LISA [...] of3 resultswithin the time period is included. [facility] WBC 8.3 4.8 - 10.8 K/mcL LAB HEMETOLOGY METHOD 02/06/2025 6:[address] [facility] RBC 2.60(L) 4.50 - 5.50 M/mcL LAB HEMETOLOGY METHOD 02/06/2025 6:[address] [facility] Hemoglobin 8.9(L) 13.5 - 17.5 g/dL LAB HEMETOLOGY METHOD 02/06/2025 6:[address] [facility] Hematocrit 28.3(L) 42.0 - 54.0 % LAB HEMETOLOGY METHOD 02/06/2025 6:[address] [facility] MCV 108.0(H) 79.0 - 98.0 FL LAB HEMETOLOGY METHOD 02/06/2025 6:[address] [facility] MCH 34.0(H) 27.0 - 32.0 pcg LAB HEMETOLOGY METHOD 02/06/2025 6:[address] [facility] MCHC 31.4(L) 32.0 - 37.0 g/dL LAB HEMETOLOGY METHOD 02/06/2025 6:[address] [facility] RDW 17.4(H) 11.0 - 15.0 % LAB HEMETOLOGY METHOD 02/06/2025 6:[address] [facility] Platelets 252 130 - 400 K/mcL LAB HEMETOLOGY METHOD 02/06/2025 6:55 AM EDT [facility] MPV 9.6 7.0 - 11.0 FL LAB HEMETOLOGY METHOD 02/06/2025 6:55 AM EDT [facility] NRBC 0.0 <1.0 % LAB HEMETOLOGY METHOD 02/06/2025 6:55 AM EDT [facility] NRBC Absolute 0.00 <0.10 K/mcL LAB HEMETOLOGY METHOD 02/06/2025 6:55 AM EDT [facility] Blood Venous blood specimen / Unknown Venipuncture / Unknown 02/06/2025 6:00 AM EDT 02/06/2025 6:23 AM EDT Ju Valdez MD LAB BLOOD ORDERABLES Final Res ult [facility] [address] [place] [address], [place] [phone] * Culture blood (02/05/2025 4:44 PM EDT) Only the most recent of2 resultswithin the time period is included. Culture, Blood No growth at 5 days 02/10/2025 5:01 PM EDT [facility] Blood Venous blood specimen / Unknown Venipuncture / Unknown 02/05/2025 4:44 PM EDT 02/05/2025 4:53 PM EDT Anika CHACON LAB MICROBIOLOGY - GENERAL OR DERABLES Final Result [facility] [address] [place] [address], [place] [phone] * Lactate, with reflex (02/05/2025 2:48 PM EDT) LACTIC ACID 1.5 0.4 - 2.0 mmol/L LAB CHEMISTRY METHOD 02/05/2025 3:35 PM EDT [facility] Blood Venous blood specimen / Unknown Venipuncture / Unknown 02/05/2025 2:48 PM EDT 02/05/2025 3:04 PM EDT Anika Almodovar PA LAB BLOOD ORDERABLES Final Re sult Performing Organization Address [facility] Co de Phone Number [facility] [address] [place] [address], [place] [phone] * (ABNORMAL) Phosphorus (01/19/2025 6:00 AM EDT) Only the most recent of3 resultswithin the time period is included. Phosphorus 2.4(L) 2.5 - 4.5 mg/dL LAB CHEMISTRY METHOD 01/19/2025 7:29 AM EDT [facility] Blood Venous blood specimen / Unknown Venipuncture / Unknown 01/19/2025 6:00 AM EDT 01/19/2025 6:20 AM EDT Taj Huynh DO LAB BLOOD ORDERABLES Final R esult Performing Organization Address [facility] de Phone Number [facility] [address] [place] [address], [place] [phone] * Magnesium (01/19/2025 6:00 AM EDT) Only the most recent of4 resultswithin the time period is included. Magnesium 2.4 1.9 - 2.6 mg/dL LAB CHEMISTRY METHOD 01/19/2025 7:29 AM EDT [facility] Blood Venous blood specimen / Unknown Venipuncture / Unknown 01/19/2025 6:00 AM EDT 01/19/2025 6:20 AM EDT Taj Huynh Telecardia LAB BLOOD ORDERABLES Final R esult Performing Organization Address [facility] Co de Phone Number [facility] [address] [place] [address], [place] [phone] * Calcium, ionized (01/19/2025 6:00 AM EDT) Only the most recent of2 resultswithin the time period is included. Pathologist [facility] Calcium Ionized 4.82 4.50 - 5.30 mg/dL 01/19/2025 6:30 AM EDT [facility] Blood Venous blood specimen / Unknown Venipuncture / Unknown 01/19/2025 6:00 AM EDT 01/19/2025 6:19 AM EDT Taj Huynh Telecardia LAB BLOOD ORDERABLES Final R esult Performing Organization Address [facility] de Phone Number [facility] [address] [place] [address], [place] [phone] * Routine EEG (01/18/2025 10:16 AM EDT) [...] LAB COAGULATION METHOD 01/18/2025 4:53 AM EDT [facility] Blood Venous blood specimen / Unknown Venipuncture / Unknown 01/18/2025 4:33 AM EDT 01/18/2025 4:42 AM EDT us Jelena CHACON LAB BLOOD ORDERABLES Final Re sult Performing Organization Address [facility] de Phone Number [facility] [address] [place] [address], [place] [phone] * Prothrombin Time with INR - STAT (01/18/2025 4:33 AM EDT) Only the most recent of3 resultswithin the time period is included. [facility] Protime 12.9 10.6 - 13.9 sec LAB COAGULATION METHOD 01/18/2025 4:53 AM EDT [facility] INR 1.0 LAB COAGULATION METHOD 01/18/2025 4:53 AM EDT [facility] Blood Venous blood specimen / Unknown Venipuncture / Unknown 01/18/2025 4:33 AM EDT 01/18/2025 4:42 AM EDT us Jelena CHACON LAB BLOOD ORDERABLES Final Re sult Performing Organization Address [facility] Co de Phone Number [facility] [address] [place] [address], [place] [phone] * Troponin I high sensitivity (01/17/2025 5:39 PM EDT) Only the most recent of2 resultswithin the time period is included. [facility] High Sensitivity Troponin I 21 <=79 ng/L LAB CHEMISTRY METHOD 01/17/2025 6:21 PM EDT [facility] Blood Arterial blood specimen / Unknown Venipuncture / Unknown 01/17/2025 5:39 PM EDT 01/17/2025 5:51 PM EDT Narrative [facility] ([facility]) [facility] - 01/17/2025 6:21 PM EDT High levels of biotin in samples may falsely decrease hsTroponin values. Use caution when interpreting hsTroponin results in patients taking biotin who exhibit renal impairment (eGFR <60) or in patients taking more than 20 mg/day of biotin. us Taj Huynh DO LAB BLOOD ORDERABLES Final R esult [facility] ([facility] [address] [place] [address], [place] [phone] * CT Angio Head/Neck Stroke wo and/or [...] Simone Downey MD on 01/17/2025 18:18:56 Divine Aldridge NP IMG CT PROCEDURES Final Result * CT [...] - 7.45 pH 01/17/2025 5:01 PM EDT [facility] pCO2, Arterial 37 35 - 45 mmHg 01/17/2025 5:01 PM EDT [facility] pO2, Arterial 74(L) 80 - 100 mmHg 01/17/2025 5:01 PM EDT [facility] HCO3, Arterial 23.2 22.0 - 26.0 mmol/L 01/17/2025 5:01 PM EDT [facility] O2 Sat, Arterial 97.2 95.0 - 98.0 % 01/17/2025 5:01 PM EDT [facility] Base Excess, Arterial -2.2(L) -2.0 - 2.0 mmol/L 01/17/2025 5:01 PM EDT [facility] Blood Arterial blood specimen / Unknown Arterial Puncture / Unknown 01/17/2025 4:55 PM EDT 01/17/2025 4:58 PM EDT us Divine Aldridge PIPE [employer]ER LAB BLOOD ORDERABLES Fin al Result [facility] [address] [place] [address], * (ABNORMAL) Creatine kinase and CKMB (01/17/2025 3:31 PM EDT) Total CK 41 22 - 269 unit/L LAB CHEMISTRY METHOD 01/17/2025 4:54 PM EDT [facility] CK-MB <1.0(L) 1.0 - 3.6 ng/mL LAB CHEMISTRY METHOD 01/17/2025 4:54 PM EDT [facility] CK-MB Index <0.0(L) 0.0 - 5.0 LAB CHEMISTRY METHOD 01/17/2025 4:54 PM EDT [facility] Blood Arterial blood specimen / Unknown Arterial Puncture / Unknown 01/17/2025 3:31 PM EDT 01/17/2025 3:39 PM EDT Taj Huynh DO LAB BLOOD ORDERABLES Final R esult [facility] [address] [place] [address], [place] [phone] * (ABNORMAL) POCT activated clotting time,kaolin (01/17/2025 2:34 PM EDT) Only the most recent of7 resultswithin the time period is included. Activated Clotting Time Kaolin 164(H) 74 - 137 sec 01/18/2025 5:32 AM EDT [facility] Blood Arterial blood specimen / Unknown 01/17/2025 2:34 PM EDT 01/18/2025 5:34 AM EDT Taj Huynh DO LAB POINT OF CARE TE ST DOCKED DEVICE UNSOLICITED RESULTS Final Result Performing Organization Address City/[facility]/ZIP Co de Phone Number [facility] [address] [place] [address], [place] [phone] * (ABNORMAL) POCT Arterial basic metabolic profile, HH (01/17/2025 1:44 PM EDT) Glucose Arterial POCT 127(H) 70 - 100 mg/dL 01/18/2025 5:32 AM EDT [facility] Sodium Arterial POCT 139 135 - 145 mmol/L 01/18/2025 5:32 AM EDT [facility] Potassium Arterial POCT 4.7 3.5 - 5.5 mmol/L 01/18/2025 5:32 AM EDT [facility] Chloride Arterial POCT 107 96 - 110 mmol/L 01/18/2025 5:32 AM EDT [facility] TCO2 Arterial POCT 23 21 - 32 mmol/L 01/18/2025 5:32 AM EDT [facility] BUN, Arterial POCT 26(H) 5 - 25 mg/dL 01/18/2025 5:32 AM EDT [facility] Creatinine Arterial POCT 1.7(H) 0.7 - 1.3 mg/dL 01/18/2025 5:32 AM EDT [facility] Ionized Calcium Arterial POCT 4.80 4.50 - 5.30 mg/dL 01/18/2025 5:32 AM EDT [facility] Hemoglobin Arterial POCT 10.5(L) 13.5 - 17.5 g/dL 01/18/2025 5:32 AM EDT [facility] Hematocrit Arterial POCT 31(L) 42 - 54 % 01/18/2025 5:32 AM T [facility] Blood Arterial blood specimen / Unknown 01/17/2025 1:44 PM EDT 01/18/2025 5:34 AM EDT us Taj Huynh DO LAB POINT OF CARE TE ST DOCKED DEVICE UNSOLICITED RESULTS Final Result [facility] [address] [place] [address], * TH AN ENDOTRACHEAL(NO CHARGE) (01/17/2025 11:27 AM EDT) Martina Nelson CRNA - 01/17/2025 11:27 AM EDT Martina Chong CRNA 01/17/2025 11:28 AM General Information and Staff Patient location during procedure: OR Anesthesiologist: Nathan Lucio DO Resident/ORDER DETAILER: Martina Chong CRNA Performed: resident/ORDER DETAILER/CAA Performed by: Martina Chong CRNA Authorized by: [...] to verify the correct patient, procedure, equipment, client support administrator and site/side marked as required. Preparation: Patient [...] 11:25 AM Staffing Anesthesiologist: Nathan Lucio DO Resident/ORDER DETAILER: Martina Chong CRNA Nathan Lucio DO ANESTHESIA ORDERABLES Final Result * Prepare RBC: 2 Units (01/17/2025 10:40 AM EDT) Product Code [id number] 01/18/2025 6:55 AM EDT [facility] Unit Number [id number] 01/19/20 6:55 AM EDT [facility] Crossmatch Compatible 01/17/2025 10:51 AM EDT [facility] Dispense Status Released From Crossmatch 01/18/2025 6:55 AM EDT [facility] Unit ABO Rh OPOS 01/18/2025 6:55 AM EDT [facility] Unit Expiration Date Time 01/18/2025 6:55 AM EDT [facility] Unit Blood Type 5100 01/18/2025 6:55 AM EDT [facility] Product Code [id number] 01/18/2025 6:55 AM EDT [facility] Unit Number [id number] 01/19/20 6:55 AM EDT [facility] Crossmatch Compatible 01/17/2025 10:53 AM EDT [facility] Dispense Status Released From Crossmatch 01/18/2025 6:55 AM EDT [facility] Unit ABO Rh OPOS 01/18/2025 6:55 AM EDT [facility] Unit Expiration Date Time 01/18/2025 6:55 AM EDT [facility] Unit Blood Type 5100 01/18/2025 6:55 AM EDT [facility] Blood Venous blood specimen / Unknown 01/17/2025 10:40 AM EDT 01/11/2025 11:59 AM EDT Martina Chong CRNA BLOOD BANK PRODUCT ORDERABLES Final Result [facility] [address] [place] [address], [place] [phone] * ECG 12 lead - Procedural (No Charge) (01/11/2025 11:41 AM EDT) Ventricular Rate ECG 70 BPM GEMUSE Atrial Rate 70 BPM GEMUSE P-R Interval 254 ms GEMUSE QRS Duration 144 ms GEMUSE Q-T Interval 446 ms GEMUSE QTc 481 ms GEMUSE R Redding -68 degrees GEMUSE T Redding 86 degrees GEMUSE ECG Interpretation AV dual-paced rhythm with prolonged AV conduction Abnormal ECG When compared with ECG of 29-MAY-2024 10:40, Premature ventricular complexes are no longer Present Vent. rate has decreased BY 4 BPM Confirmed by MD Pedro, Cezar ([id number]) on 01/12/2025 1:20:12 AM GEMUSE 01/11/2025 11:4 1 AM EDT 01/12/2025 1:20 AM EDT Jelena CHACON ECG ORDERABLES Final Result Performing Organization Address City/[facility]/ZIP Co de Phone Number GEMUSE * Type and screen (01/11/2025 11:27 AM EDT) ABO Group O 01/11/2025 12:54 PM EDT [facility] Rh Type Positive 01/11/2025 12:54 PM EDT [facility] Antibody Screen Negative 01/11/2025 12:54 PM EDT [facility] Blood Venous blood specimen / Unknown Venipuncture / Unknown 01/11/2025 11:27 AM EDT 01/11/2025 11:59 AM EDT Jelena CHACON LAB BLOOD BANK TEST ORDERABLE S Final Result Performing Organization Address [facility]/ZIP Co de Phone Number [facility] [address] [place] [address], * ANGIOGRAPHY LOWER EXT RIGHT (01/09/2025 5:16 [...] LAB COAGULATION METHOD 01/09/2025 10:41 AM EDT [facility] Blood Venous blood specimen / Unknown Venipuncture / Unknown 01/09/2025 10:23 AM EDT 01/09/2025 10:29 AM EDT Narrative [facility] - 01/09/2025 10:41 AM EDT Therapeutic range listed is for Unfractionated Heparin. LMW Heparin therapeutic range: 0.50-1.20 IU/mL Angela CHACON LAB BLOOD ORDERABLES Final Resul t [facility] [address] [place] [address], * (ABNORMAL) Comprehensive metabolic panel (01/08/2025 8:32 AM EDT) Sodium 140 133 - 145 mmol/L LAB CHEMISTRY METHOD 01/08/2025 9:24 AM EDT [facility] Potassium 3.9 3.5 - 5.5 mmol/L LAB CHEMISTRY METHOD 01/08/2025 9:[address] [facility] Chloride 110 96 - 110 mmol/L LAB CHEMISTRY METHOD 01/08/2025 9:[address] [facility] CO2 26 21 - 32 mmol/L LAB CHEMISTRY METHOD 01/08/2025 9:[address] [facility] Anion Gap 4 3 - 11 LAB CHEMISTRY METHOD 01/08/2025 9:[address] [facility] Glucose 111(H) 70 - 100 mg/dL LAB CHEMISTRY METHOD 01/08/2025 9:[address] [facility] BUN 27(H) 5 - 25 mg/dL LAB CHEMISTRY METHOD 01/08/2025 9:[address] [facility] Creatinine 1.77(H) 0.70 - 1.30 mg/dL LAB CHEMISTRY METHOD 01/08/2025 9:[address] [facility] eGFR 37(L) >=60 mL/min/1. 73m2 LAB CHEMISTRY METHOD 01/08/2025 9:[address] [facility] Comment:Calculation based on the Chronic Kidney Disease Epidemiology Collaboration (CKD-EPI) equation refit without adjustment for race. BUN/Creatinine Ratio 15.3 LAB CHEMISTRY METHOD 01/08/2025 9:[address] [facility] Calcium 8.5 8.5 - 10.5 mg/dL LAB CHEMISTRY METHOD 01/08/2025 9:[address] [facility] AST (SGOT) 20 10 - 42 unit/L LAB CHEMISTRY METHOD 01/08/2025 9:[address] [facility] ALT (SGPT) 14 10 - 60 unit/L LAB CHEMISTRY METHOD 01/08/2025 9:[address] [facility] Alkaline Phosphatase 51 42 - 121 unit/L LAB CHEMISTRY METHOD 01/08/2025 9:[address] [facility] Total Protein 6.4 6.0 - 8.0 g/dL LAB CHEMISTRY METHOD 01/08/2025 9:24 AM EDT [facility] Albumin 3.3 3.2 - 5.0 g/dL LAB CHEMISTRY METHOD 01/08/2025 9:24 AM EDT [facility] Total Bilirubin 0.4 0.0 - 1.4 mg/dL LAB CHEMISTRY METHOD 01/08/2025 9:24 AM EDT [facility] Blood Venous blood specimen / Unknown Venipuncture / Unknown 01/08/2025 8:32 AM EDT 01/08/2025 8:53 AM EDT Result [facility] Joselyn CHACON LAB BLOOD ORDERABLES Fin al Result [facility] [address] [place] [address], * Hemoglobin A1c (03/22/2024) Pathologist [facility] Hemoglobin A1C 6.4 <=6.5 % Blood Venous blood specimen / Unknown Result [facility] Historical Provider LAB BLOOD ORDERABLES Rosa Isela l Result * Urine Albumin Creatinine Ratio (09/08/2023) Pathologist [facility] Urine Albumin Creatinine Ratio Abstracted Result [facility] Historical Provider HEALTH MAINTENANCE Final Result * (ABNORMAL) Lipid panel (09/08/2023) LDL/HDL Ratio 4 0 - 4 Triglycerides 249(A) 0 - 150 mg/dL Cholesterol 130 0 - 200 mg/dL HDL 34(A) >=40 mg/dL LDL Cholesterol 47 0 - 100 mg/dL Blood Venous blood specimen / Unknown Result [facility] Historical Provider LAB BLOOD ORDERABLES Rosa Isela l Result * Diabetes Foot Exam (09/07/2023) Pathologist [facility] Diabetes: Annual Foot Exam Abstracted us Historical Provider HEALTH MAINTENANCE Final Result from Last 3 Months or Most Recently Relevant to Health Maintenance Insurance MEDICARE [facility] Advance Directives Documents on File Type Date Recorded Patient Seo Marketing Specialist Expl anation DNR (Do Not Resuscitate) 02/12/2025 [...] currently active code status orders. Care Teams Glycerin Supervisor Relationship Specialty Start Date End Date Marni Ferguson MD [address] [place] [phone] PCP - General Internal Medicine 10/26/24
== END 2025-03-30 14:37 | disposition home or self-care (01) ==
LOC: HO.ENCR 13:04
PROVIDERS: PCP Physician Assistant Medical; Visit Provider Physician Assistant
DX: E11.22 Type 2 diabetes mellitus with diabetic chronic kidney disease (principal); N18.4 Chronic kidney disease, stage 4 (severe); Z79.4 Long term (current) use of insulin; E11.40 Type 2 diabetes mellitus with diabetic neuropathy, unspecified; I12.9 Hypertensive chronic kidney disease with stage 1 through stage 4 chronic kidney disease, or unspecified chronic kidney disease

== ENCOUNTER → 2025-03-30 13:03 | Outpatient (BNVA) | payer MEDICARE, OTHER, SELFPAY | PROVIDERS: PCP Physician Assistant Medical; Visit Provider Physician Assistant | DX: I12.9 Hypertensive chronic kidney disease with stage 1 through stage 4 chronic kidney disease, or unspecified chronic kidney disease (principal); E11.22 Type 2 diabetes mellitus with diabetic chronic kidney disease; N18.4 Chronic kidney disease, stage 4 (severe); E11.40 Type 2 diabetes mellitus with diabetic neuropathy, unspecified; Z79.4 Long term (current) use of insulin | CPT/HCPCS: 99212 ==

== ENCOUNTER 2025-04-30 09:58 | Outpatient (AMB) | payer MEDICARE, OTHER, SELFPAY ==
--- NOTE | 2025-04-30 10:35 | MHC.PC.OV ---
Vital Signs 04/30/25 10:43 Height 5 ft 9 in BMI Reason not done Patient refused/unable BP 116/58 L Blood Pressure Location Lt brachial Position Sitting Pulse 69 Pulse Source Pulse Oximeter Temp 86.2 F L Temp Source Temporal Artery Scan Pulse Oximetry (%) 95 Oxygen Delivery Method Room Air Intake Visit Reasons: [facility] discharged on 04/25 Intake Note: Mark Anthony presents in the office today after a discharge from [facility]. Allergies Iodinated Contrast Media (IV Dye, Iodine Containing) Allergy (Severe, Verified 04/30/25 10:37) SWELLING sulfamethoxazole (From Bactrim) Allergy (Severe, Verified 04/30/25 10:37) SWELLING RASH tetracycline (Tetracycline) Allergy (Severe, Verified 04/30/25 10:37) SWELLING , RASH trimethoprim (From Bactrim) Allergy (Severe, Verified 04/30/25 10:37) SWELLING RASH Sulfa (Sulfonamide Antibiotics) Allergy (Unknown, Verified 04/30/25 10:37) hives IVP dye Allergy (Unknown, Uncoded 04/30/25 10:37) Anaphylaxis Renée Dry Allergy (Unknown, Uncoded 04/30/25 10:37) rash tetracycline Allergy (Unknown, Uncoded 04/30/25 10:37) hives Tobacco use date assessed: 04/30/25 Dental Screening Dental Screen Date: 04/30/25 Did you have a dental visit in the last 12 months?: Yes Did you have a dental problem in the last 6 months where you did not have access to dental care?: No Was dental information given to patient?: Patient has dentist HPI HPI Comments History of Present Illness Details This is an 84-year-old male with a past medical history of CKD stage IIIB, skin cancer, throat cancer, PAD, anemia hypertension, hyperlipidemia, type 2 diabetes, CAD and PAD presenting to [facility]. He is accompanied by his . He prefers to be called Gordon. Vascular: He follows with vascular surgery from [place]. He had bypass on right leg and 4th right toe amputation (January 2025). He had [id number]-[id number] amputation of the right lower extremity April 2025. Hospital notes/ Discharge summary unavailable at this time. Discharged from [facility] after about 2 weeks. Released last Wednesday. Nursing starting and PT starting this week. Patient had left lower extremity bypass June 2024. History of aortic aneurysm repair and revision in 2023. Cardiology: History of 6 stents and CABG x4 6 stens, and [address] Jimenez in [place]. He sees her every 6 months. Pacemaker implantation 2021. Takes ASA 81 mg, atenolol 50 mg, atorvastatin 80 mg, fenofibrate 145 mg, furosemide 20 mg. Endo: Type 2 diabetes followed by Bibi Cruz PA-C. Well-controlled. Dr. Stallings-nephrology. He has a history of skin cancer on his scalp and right ear. Followed by [facility]. History of throat cancer with recurrence in 2019. Now in remission. Sees ENT in [place] every 3 months. Treated with radiation. History of lower back and neck surgery. Followed by [facility]. He received steroid injections in the lower back every 4 months and takes oxycodone 5 mg as needed and Nucynta. History of anemia. Patient reports he was given iron supplement while hospitalized. He is on B12. Denies bleeding or bruising. Takes baby aspirin daily. ROS: Constitutional: No unexplained weight loss, fever, chills, fatigue or night sweats. Respiratory: No shortness of breath, cough or sputum production. Cardiovascular: No chest pain Gastrointestinal: No anorexia, nausea, vomiting or diarrhea. No abdominal pain or blood in stool. Neurologic: No headache, dizziness, syncope Hematologic/Lymphatics: No bleeding or bruising. Psychiatric: No depression or anxiety Physical exam: Constitutional: Alert, in no distress. Eyes: Pupils are equal, round and reactive to light. Extraocular muscles intact. Neck: Supple, Full range of motion. No lymphadenopathy. Respiratory: Clear to auscultation. Cardiovascular: S1 S2 regular. No murmurs. Gastrointestinal: Abdomen soft, non-tender, non-distended. Neurologic: No focal neurological deficits. Extremities: Right LE wrapped and in brace. Psychiatric: Normal mood and affect [facility] Medical History (Updated 05/01/25 @ 15:25 by OSWALDO Roach) Anemia Skin cancer Hx of cardiac pacemaker Below-knee amputation of right lower extremity PAD (peripheral artery disease) CAD (coronary artery disease) Aneurysm of left leg Surgery, elective Obesity due to excess calories Hx of aneurysm Hx of myocardial infarction Carpal tunnel syndrome Throat cancer Ischemic colitis Pacemaker Diverticulitis BPH (benign prostatic hyperplasia) Type 2 diabetes mellitus with chronic kidney disease Chronic kidney disease, stage 3 Type 2 diabetes mellitus with diabetic polyneuropathy Essential hypertension Hyperlipidemia LDL goal <70 Surgical History History of back surgery H/O neck surgery History of prostate surgery Hx of angioplasty Hx of hernia repair Hx of tonsillectomy Family History (Updated 04/30/25 @ 10:42 by Clarice Arango MA) Father Prostate cancer Mother Breast cancer Diabetes Social History (Updated 04/30/25 @ 10:43 by Clarice Arango MA) Household Members: Spouse Alcohol intake: never Patient Tobacco Use Status: Former Tobacco user Tobacco use type: Cigarette Cigarettes Per Day: 10 Years Smoked: 40 e-Cigarette/Vaping Use: Never Used Second Hand Smoke Exposure: No Cognitive needs: No Hearing needs: No Vision needs: No Physical exam (Primary Care) Vital Signs: Last Vital Signs Temp 86.2 F L 04/30/25 10:43 Pulse 69 04/30/25 10:43 BP 116/58 L 04/30/25 10:43 Pulse Ox 95 04/30/25 10:43 Oxygen Delivery Method Room Air 04/30/25 10:43 Tobacco/Smoking Status: Tobacco use Status Tobacco use date assessed 04/30/25 04/30/25 10:45 Patient Tobacco Use Status Former Tobacco user 04/30/25 10:43 Tobacco use type Cigarette 04/30/25 10:43 e-Cigarette/Vaping Use Never Used 04/30/25 10:43 Coding Level of Care Code New Pt Level 4 (64133) Complex EM visit Add On G2211 Diagnoses Essential hypertension I10 Hyperlipidemia LDL goal <70 E78.5 Type 2 diabetes mellitus with stage 4 chronic kidney disease, with long-term current use of insulin E11.22; N18.4; Z79.4 Diabetes mellitus assisted insulin use: with assisted use Chronic kidney disease stage: stage 4 (severe) Lumbar radiculopathy M54.16 Coronary artery disease involving [place] coronary artery of [place] heart without angina pectoris I25.10 Coronary Disease-Associated Artery/Lesion type: [place] artery [place] vs. transplanted heart: [place] heart Associated angina: without angina PAD (peripheral artery disease) I73.9 Below-knee amputation of right lower extremity, initial encounter S88.111A Encounter type: initial encounter Hx of cardiac pacemaker Z95.0 Skin cancer C44.90 Anemia, unspecified type D64.9 Anemia type: unspecified type Assessment & Plan Assessment & Plan (1) Essential hypertension: Code(s): I10 - Essential (primary) hypertension Category: Medical (2) Hyperlipidemia LDL goal <70: Code(s): E78.5 - Hyperlipidemia, unspecified Category: Medical (3) Type 2 diabetes mellitus with chronic kidney disease: Code(s): E11.22 - Type 2 diabetes mellitus with diabetic chronic kidney disease Category: Medical Qualifiers: 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 insulin use: with assisted use Chronic kidney disease stage: stage 4 (severe) Qualified Code(s): E11.22 - Type 2 diabetes mellitus with diabetic chronic kidney disease; N18.4 - Chronic kidney disease, stage 4 (severe); Z79.4 - [facility] (current) use of insulin (4) Lumbar radiculopathy: Code(s): M54.16 - Radiculopathy, lumbar region Category: Medical (5) CAD (coronary artery disease): Code(s): I25.10 - Atherosclerotic heart disease of [place] coronary artery without angina pectoris Category: Medical Qualifiers: Coronary Disease-Associated Artery/Lesion type: [place] artery [place] vs. transplanted heart: [place] heart Associated angina: without angina Qualified Code(s): I25.10 - Atherosclerotic heart disease of [place] coronary artery without angina pectoris (6) PAD (peripheral artery disease): Code(s): I73.9 - Peripheral vascular disease, unspecified Category: Medical (7) Below-knee amputation of right lower extremity: Code(s): S88.111A - Complete traumatic amputation at level between knee and ankle, right lower leg, initial encounter Category: Medical Qualifiers: Encounter type: initial encounter Qualified Code(s): S88.111A - Complete traumatic amputation at level between knee and ankle, right lower leg, initial encounter (8) Hx of cardiac pacemaker: Code(s): Z95.0 - Presence of cardiac pacemaker Category: Medical (9) Skin cancer: Code(s): C44.90 - Unspecified malignant neoplasm of skin, unspecified Category: Medical (10) Anemia: Code(s): D64.9 - Anemia, unspecified Category: Medical Qualifiers: Anemia type: unspecified type Qualified Code(s): D64.9 - Anemia, unspecified Plan In summary this is an 84-year-old male with a complex past medical history and recent hospital discharge following xrtkh-[id number] amputation of the right lower extremity. Discharge summary and hospital records requested. VNA and PT on board. He does have a history of anemia per chart review. Currently on B12. Check labs for anemia. Continue follow up with all specialists and current medications. Hypertension and diabetes are well-controlled. Hemoglobin A1c 5.6%. Schedule follow up in 3 months. 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 Ferritin 04/30/25 D64.9 - Anemia, unspecified, E11.22 - Type 2 diabetes mellitus with diabetic chronic kidney disease, N18.4 - Chronic kidney disease, stage 4 (severe), Z79.4 - [facility] (current) use of insulin Complete Blood Count Auto Diff 04/30/25 E11.22 - Type 2 diabetes mellitus with diabetic chronic kidney disease, N18.4 - Chronic kidney disease, stage 4 (severe), Z79.4 - [facility] (current) use of insulin IRON PROFILE 04/30/25 D64.9 - Anemia, unspecified, E11.22 - Type 2 diabetes mellitus with diabetic chronic kidney disease, N18.4 - Chronic kidney disease, stage 4 (severe), Z79.4 - [facility] (current) use of insulin
[2025-04-30 10:43] VITALS: BP 116/58; PULSE 69; TEMP 30.1; O2SAT 95
--- OUTSIDE RECORDS SUMMARY | 2025-04-30 11:00 | XMS_ITS | Clinical Summary ---
Author Organization [facility] Address [address] [place] [phone] Phone Care Team Providers Care Electric Meter Tester Name Role Phone Jaya Brock MD Primary Care Provider Allergies Active Allergy Reactions Criticality Noted Date Comments Sulfamethoxazole-Trimethoprim GI Upset 2017 Iodinated Contrast Media 07/02/2020 Medications nitroglycerin (NITROSTAT) 0.4 MG SL tabletIndications :Medication refill Place 1 tablet (0.4 mg total) under the tongue every 5 (five) minutes as needed for chest pain (Do not exceed 3 tablets). 100 tablet 2 8 Active aspirin 81 mg chewable tablet 1 tablet Acti ve pregabalin (LYRICA) 150 MG capsule Take 150 mg by mouth 2 (two) times a day. Active atenolol (TENORMIN) 50 mg tablet 100 mg. Active colchicine (MITIGARE) 0.6 mg capsule 1 tablet Active lansoprazole (PREVACID) 30 MG capsule 1 capsule before a meal Active traMADol (ULTRAM) 50 mg tablet 1 tablet as needed Active tamsulosin (FLOMAX) 0.4 mg Cap Take 0.4 mg by mouth daily. Active glipiZIDE (GLUCOTROL) 10 MG 24 hr tablet Take 10 mg by mouth daily. Active escitalopram oxalate (LEXAPRO) 10 MG tablet Take 10 mg by mouth daily. Active nitroglycerin (NITROSTAT) 0.4 MG SL tablet 1 tablet under the tongue and allow to dissolve as needed 100 tablet 3 9 Active glipiZIDE (GLUCOTROL) 5 MG 24 hr tablet Take 5 mg by mouth daily. Active insulin glargine (LANTUS, BASAGLAR) 100 unit/mL (3 mL) InPn injection penIndications:ty pe 2 diabetes mellitus Inject 12 Units under the skin daily. Indications: type 2 diabetes mellitus Active atorvastatin (LIPITOR) 80 MG tablet Take 80 mg by mouth daily. Active semaglutide (OZEMPIC) 0.25 mg or 0.5 mg(2 mg/1.5 mL) subcutaneous injection pen Inject under the skin every 7 days. Active fenofibrate (TRICOR) 145 MG tablet Take 145 mg by mouth daily. Active amLODIPine (NORVASC) 5 MG tabletIndications :Essential hypertension Take 1 tablet (5 mg total) by mouth daily. 90 tablet 3 0 Active LORazepam (ATIVAN) 0.5 MG tablet Take 0.5 mg by mouth every 6 (six) hours as needed for anxiety. Active olmesartan (BENICAR) 5 mg tablet Take 1 tablet (5 mg total) by mouth daily. 60 tablet 3 0 Active Active Problems Problem Noted Date Diagnosed Date Localized edema 08/07/2020 Assessment & Plan (08/07/2020 2:47 PM EST): Etiology is unclear. Albumin is okay and there is no evidence of nephrotic syndrome. His pulmonary hypertension is mild and not nearly severe enough to produce peripheral edema with right heart failure. I have asked him to complete his venous study to see if venous reflux is an explanation. Dyspnea on exertion 06/05/2020 Assessment & Plan (07/02/2020 2:24 PM EDT): Etiology unclear. I will have a proBNP drawn in a month when he returns. Assessment & Plan (06/05/2020 9:41 AM EDT): Etiology remains unclear. Data so far is in knots suggestive of heart failure and he may have some mild underlying pulmonary issues but this is of recent onset. He is an ex-smoker from long ago. I am going to decrease his atenolol to 50 mg and I have asked him to have a nuclear stress test repeated. I have asked him to put 15 to 20 pound knee-high compression stockings on in the morning if he can tolerate it. He is already elevating. Coronary artery disease of b ypass graft of [place] heart with stable angina pectoris 12/30/2017 Overview (07/28/2018): 1996 CABG X 4 02/2009 PCI KAVITA SVG RCA; TO SVG LADD1 03/2011 PCI KAVITA SVG RCA 12/2014 PCI KAVITA SVG Cfx 05/2016 TO SVG RCA; NATIVES TO; SVG-OM/MARTEL-LAD OK Assessment & Plan (08/07/2020 2:45 PM EST): Clinically stable and has no angina. Recent nuclear stress testing revealed only the old infarct. No areas at risk. Assessment & Plan (07/02/2020 2:19 PM EDT): Nuclear scan was negative for ischemia. 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 Assessment & Plan (06/05/2020 9:43 AM EDT): No angina but exertional dyspnea so I am going to have him do a pharmacologic nuclear stress test. I will hold off on clearing him for orthopedic surgery until his work-up is been completed and he will return in a few weeks. Assessment & Plan (05/01/2020 3:44 PM EDT): His dyspnea is a concern so he will have a proBNP drawn today and an echocardiogram sometime in the next several weeks and then return to my office. Assessment & Plan (09/07/2019 11:45 AM EST): Remains precariously stable. Encouraged to be more active. Assessment & Plan (06/09/2019 2:25 PM EDT): He was reporting chest discomfort several weeks ago. He is no longer complaining of chest discomfort. His nuclear stress test showed a fixed defect in the inferior region but no new areas of ischemia. Recommend continuation of current medical management. He is appropriately on aspirin. Continue to optimize his risk factors. Blood pressure today is normal. The patient and his are requesting a follow-up with Dr. Lucero in September before they leave for [place]. Assessment & Plan (05/24/2019 2:01 PM EDT): His ECG today reveals a sinus rhythm at 76 but most of his QRS complexes are fused with paced beats. There would appear to be an old inferior wall infarct which is not news but the anterior wall is difficult to interpret because of those findings. He is going to undergo pharmacologic nuclear stress test this Wednesday and I will have a low threshold for repeating his angiogram. I have renewed his nitroglycerin. Assessment & Plan (01/19/2019 12:36 PM EDT): Remarkably stable. No angina. Assessment & Plan (07/29/2018 12:53 PM EDT): Clinically stable. Last angiogram May 2016. He is graft dependent. Assessment & Plan (12/30/2017 3:41 PM EDT): No episodes of angina. He is doing well. He will continue aspirin and plavic. Essential hypertension 12/30/2017 Assessment & Plan (08/07/2020 2:45 PM EST): Mildly elevated and I have asked him to increase his Benicar to 10 mg. Assessment & Plan (07/02/2020 2:24 PM EDT): I was hoping to increase his losartan but there is now a nationwide shortage for most of the ARB's. All I could come up with was Benicar at 5 mg. The remaining losartan will be held and I have reduced his amlodipine to 2.5 to see if his edema will improve. He may need a diuretic but with a creatinine at 1.6 I would like to try to avoid that. He will have a full venous study done as well. Assessment & Plan (06/05/2020 9:41 AM EDT): Well-controlled on present therapy. I am decreasing his atenolol. Assessment & Plan (05/01/2020 3:45 PM EDT): Blood pressures well controlled today. I do believe that at least some of his edema is due to his amlodipine so I have decreased that to 5 mg. I will have a creatinine drawn today and will consider increasing his losartan back to previous doses if needed for blood pressure control. Assessment & Plan (09/07/2019 11:46 AM EST): Controlled up in therapy. No changes. Assessment & Plan (06/09/2019 2:25 PM EDT): Well-controlled on his current meds. Assessment & Plan (05/24/2019 2:01 PM EDT): Well-controlled. Assessment & Plan (01/19/2019 12:37 PM EDT): Controlled on present therapy. No changes. Assessment & Plan (07/29/2018 12:54 PM EDT): Fair control on present therapy. No changes. Assessment & Plan (12/30/2017 3:42 PM EDT): Not well controlled. He did not tolerated diuretics due to his chronic kidney disease. We added Amlodipine 5mg daily. Side effected discussed. He will continue to monitor his BPs at home and call our office if they are continually above 140/80. History of permanent cardiac pacemaker placement 12/30/2017 Assessment & Plan (08/07/2020 2:45 PM EST): Full interrogation today. No significant mode switches and device is functioning normally. Full report under separate cover. Assessment & Plan (09/07/2019 11:46 AM EST): Device was interrogated today. Functioning normally. Full report under separate cover. Mixed hyperlipidemia 12/30/2017 Assessment & Plan (08/07/2020 2:45 PM EST): High-dose statin unchanged. Assessment & Plan (06/05/2020 9:42 AM EDT): LDL is at 35 with an HDL of 29 and triglycerides at 235. Creatinine is relatively stable at 1.6. Assessment & Plan (05/01/2020 3:45 PM EDT): No recent lipids. Asked him to return in a month and will send him for a lipid profile after that visit. Assessment & Plan (09/07/2019 11:47 AM EST): Remains on high-dose atorvastatin. Next lipid profile on his return in January. Assessment & Plan (06/09/2019 2:26 PM EDT): Well-controlled on his current meds. Assessment & Plan (05/24/2019 2:01 PM EDT): 05/18/2019 LDL 27 HDL 28 triglycerides 263 Assessment & Plan (01/19/2019 12:37 PM EDT): LDL in the 40s and HDL in the 20s. Triglycerides mildly high. No changes. Assessment & Plan (07/29/2018 12:53 PM EDT): Medications are unchanged but no recent labs. I will have a lipid profile drawn with other routine labs prior to his leaving to [place]. Peripheral vascular disease 12/30/2017 Overview (07/28/2018): 09/2010 POP-ANT TIB BYPASS DOUG Assessment & Plan (09/07/2019 11:46 AM EST): Exam is unchanged. He has minimal edema worse on the left. He is not wearing compression stockings but does at least attempt to get his legs up during the day. No dramatic change. Assessment & Plan (01/19/2019 12:37 PM EDT): Followed by vascular surgery. Poor peripheral pulses and known small abdominal aortic aneurysm. Sick sinus syndrome 12/30/2017 Overview (07/28/2018): 1998 DDD 06/2013 BATTERY CHANGE Assessment & Plan (06/09/2019 2:25 PM EDT): We will continue to check his device routinely. Assessment & Plan (12/30/2017 3:39 PM EDT): Programming evaluation completed today with iterative adjustment of the implantable device to test the function and select optimal permanent program values with analysis, review and report. Normal device function with no device related complaints. Was reviewed with my supervising physician. Patient to follow-up for continued monitoring. Type 2 diabetes mellitus 12/30/2017 Family History Medical History Relation Comments Heart failure Father Heart failure Maternal Grandfather Heart failure Son Relation Status Comments Father Maternal Grandfather Son Social History Tobacco Use Types Packs/Day Years Used Date Smoking Tobacco: Former Smokeless Tobacco: Never Alcohol Use Standard Drinks/Week Comments No 0 (1 standard drink = 0.6 oz pur e alcohol) Education Answer Date Recorded Are you interested in more education? Not on edgar e 01/29/2023 Are you concerned about learning? Not on file 01/29/2023 No 01/29/2023 No 01/29/2023 Digital Access Answer Date Recorded No 02/27/2023 No 02/27/2023 Reliable internet access at home? Not on file 02/27/2023 Device with a working camera? Not on file Sex and Gender Information Value Date Recorded Sex Assigned at Not on file Legal Sex Male 10:38 PM EDT Gender Identity Not on file Sexual Orientation Not on file Last Filed Vital Signs Vital Sign Reading Time Taken Comments Blood Pressure 148/78 08/07/2020 1:27 PM EST Pulse 92 08/07/2020 1:27 PM EST Temperature - - Respiratory Rate - - Oxygen Saturation 94% 08/07/2020 1:27 PM EST Inhaled Oxygen Concentration - - Weight 102.1 kg (225 lb) 08/07/2020 1:27 PM EST Height 176.5 cm (5' 9.5 ) 07/02/2020 1:40 PM EDT Body Mass Index 32.75 07/02/2020 1:40 PM EDT Plan of Treatment Health Maintenance Due Date Last Done Comments BLOOD PRESSURE 1939 HEMOGLOBIN A1C 1939 DEPRESSION SCREENING 1951 RSV VACCINE (1 - 1-dose 75+ series) 2014 DIABETIC EYE EXAM 12/30/2017 CREATININE LEVEL 05/01/2021 05/01/2020, 05/24/2019 POTASSIUM LEVEL 05/01/2021 05/01/2020, 05/24/2019 Adult Td,Tdap Booster 08/12/2023 08/12/2013 , 04/12/2001 COVID-19 VACCINE (3 - 2023-2 5 season) 2024 12/02/2020, 11/11/2020 ZOSTER VACCINES Completed 08/03/2018, 01/29/2018 PNEUMOCOCCAL VACCINES (50+ years) Completed 07/04/2019, 01/29/2018, 07/10/2015 HEPATITIS A VACCINES Aged Out No long er eligible based on patient's age to complete this topic HIB VACCINES Aged Out No longer eligi ble based on patient's age to complete this topic MENINGOCOCCAL VACCINES (ACWY) Aged Out No longer eligible based on patient's age to complete this topic MENINGOCOCCAL VACCINES (B) Aged Out N o longer eligible based on patient's age to complete this topic Medical Devices Not on file Procedures Procedure Name Priority Date/Time Associated Diagnosis Comments BASIC METABOLIC PANEL Routine 05/01/2020 3:53 PM EDT Essential hypertension from Last 3 Months or Most Recently Relevant to Health Maintenance Results * (ABNORMAL) Basic metabolic panel (05/01/2020 3:53 PM EDT) SODIUM 145 133 - 146 mmol/L [facility] CHLORIDE 106 96 - 108 mmol/L [facility] POTASSIUM 4.9 3.3 - 5.1 mmol/L [facility] CO2 26 21 - 35 mmol/L [facility] BUN 31(H) 6 - 19 mg/dL [facility] CREATININE 1.60(H) 0.5 - 1.5 mg/dL [facility] GLUCOSE 134(H) 70 - 99 mg/dL [facility] CALCIUM 9.7 8.4 - 10.3 mg/dL [facility] EGFR 40(L) >59 mL/min/1.7 3m2 [facility] Comment:Estimated glomerular filtration rate calculated using the CKD-EPI equation. ANION GAP 18 10 - 20 mmol/L [facility] Blood 05/01/2020 3:53 PM EDT 05/01/2020 3:55 PM EDT us Jean Lucero MD LAB BLOOD ORDERABLES Final Resu lt [facility] [address], [place] [id number] from Last 3 Months or Most Recently Relevant to Health Maintenance Insurance MEDICARE PART A & B [employer] MEDICARE SUPPLEMENT MEDICARE PART A & B [employer] MEDICARE SUPPLEMENT MEDICARE PART A & B [facility] MEDICARE SUPPLEMENT MEDICARE PART A & B [facility] [place] [phone] MEDICARE PART A & B [facility] [place] [address] MEDICARE PART A & B Member Subscriber Plan / Payer ( fective 2002-Present) Name:Mark Anthony Omalley Member ID:[id number] Relation to Subscriber:Self Name:Mark Anthony Omalley Subscriber ID:[id number] Payer ID:[id number] Group ID:Not on file Type:Medicare Address: [employer] [address] [employer] MEDICARE SUPPLEMENT MEDICARE PART A & B [employer] MEDICARE SUPPLEMENT MEDICARE PART A & B [employer] [place] [address] MEDICARE PART A & B [employer] MEDICARE SUPPLEMENT Care Teams Electric Meter Tester Relationship Specialty Start Date End Date Jaya Brock MD [address] [place] [address] PCP - General 09/07/19 Additional Source Comments The information contained in this document represents components of the legal health record. It is not the complete legal health record.[facility]
--- OUTSIDE RECORDS SUMMARY | 2025-04-30 11:00 | XMS_ITS | Patient Health Record ---
Author Organization [facility] Address [address] [place] [address] Care Team Providers Care Lubrication Supervisor Name Role Phone Jeniffer(inactive) Irving DOLAN Primary Care Provider U Jonas Trotter [phone] Allergies Allergen (clinical drug ingredient) Drug/Non Drug Allergy documented on EMR Reaction Allergy Type Onset Date Status ivp dye (uncoded) Unknown Allergy Ac tive tetracycline tetracycline (uncoded) Unknown Allergy Active sulfamethoxazole / trimethoprim bactrim (uncoded) Unknown Allergy Active Reason For Referral No Information Medications Medication SIG (Take, Route, Frequency, Duration) Notes Start Date End Date Status Colchicine Active LORazepam Active Lansoprazole Active Atenolol Active Suprep Bowel Prep Suprep as directed Ora lly once for 1 dose 12/02/2011 Active Allopurinol 10/04/2024 10/04/2024 Active Caduet Active Zestril 10/04/2024 10/04/2024 Active Plavix Active Gabapentin Active Tylenol PM Extra Strength Active Baby Aspirin Active traMADol HCl Active Nitrostat Active Problems Problem Type SNOMED Code ICD Code Onset Dates Problem Status W/U Status Risk Notes Problem Diverticulosis of colon (finding) (505509978) Diverticulosis of colon (without mention of hemorrhage) (562.10) Active confirmed Problem History of polyp of colon (situation) (593128559) Personal history of colonic polyps (V12.72) Active confirmed Problem Special screenin g for malignant neoplasms, colon (V76.51) Active confirmed Plan Of Treatment Future Test Test Name Order Date COLONOSCOPY 12/01/2011 Insurance Providers Payer Name Payer Address Payer Phone Subscriber Number Group Number Insured Name Patient Relationship to Insured Coverage Start Date Coverage End Date MEDICARE OF [place] [address] [place] [address] [id number] CHERELLE SALAZAR Self - patient is the insured [employer] [address] [place] [address] [phone] [id number] CHERELLE SALAZAR Self - patient is the insured Medical (General) History Medical History History ICD Code CAD-MT's in 1996 and 2001; multiple cath 's with stents-last time in 2009 Peripheral vascular disease No Diabetes, CVA, lung disease, renal di sease gout HTN hyperlipidemia arthritis back pain colon polyps ischemic colitis as above Surgical History Surgery Date(Month/Year) CABG 1996 Bilateral LE Bypass in 2009 hernia pacemaker back and neck knee
--- OUTSIDE RECORDS SUMMARY | 2025-04-30 11:00 | XMS_ITS | Clinical Summary ---
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 1000mg daily Active ketoconazole (NIZORAL) 2 % shampoo 02/28/20 21 Active lansoprazole (PREVACID) [address] capsule TAKE 1 CAPSULE BY MOUTH EVERY DAY 01/01/20 21 Active nitroglycerin (NITROSTAT) 0.[address] 0.4 mg under the tongue every 5 minutes as needed. Active BD Ev 2nd Gen Pen Needle 32 gauge x 5/32 needle USE DIRECTED TO INJECT INSULIN 02/27/20 24 Active flash glucose sensor kit USE DIRECTED EVERY 14 DAYS Active fenofibrate (TRICOR) 145 mg tablet 11/18/20 22 Active atorvastatin (LIPITOR) 80 mg tablet TAKE 1 TABLET BY MOUTH EVERY DAY 08/21/20 Active atenoloL (TENORMIN) 50 mg tablet TAKE 1 TABLET BY MOUTH DAILY 08/05/20 Active glucose sensor,implant-d examet device 1 Product by Does not apply route every 14 days. 03/28/20 24 Active pen needle, diabetic (BD Ultra-Fine Micro Pen Needle) 32 gauge x 1/4 needle DIRECTED TWICE DAILY 08/20/20 Active furosemide (LASIX) 20 mg tablet Take 1 tablet (20 mg total) by mouth 1 (one) time each day. 09/21/20 Active flash glucose scanning reader (Wireless Seismic Vivek 2 [place]) misc 1 Product by Does not apply route every 14 days 12/04/19 23 Active Ozempic 1 mg/dose (4 mg/3 mL) injection pen Inject 1 mg under the skin every 7 (seven) days. 10/13/19 25 Active Nucynta ER 50 mg 12 hr tablet Take 1 tablet (50 mg total) by mouth 2 (two) times a day. Active LORazepam (ATIVAN) 0.5 mg tablet Take 1 tablet (0.5 mg total) by mouth 2 (two) times a day. Active Tresiba FlexTouch U-200 200 unit/mL (3 mL) CONCENTRATED injection pen Inject 20 Units under the skin at bedtime. 02/18/20 24 Active fenofibrate micronized (LOFIBRA) 200 mg capsule Take 1 capsule (200 mg total) by mouth 1 (one) time each day. 12/07/19 25 Active acetaminophen (TYLENOL) 500 mg tablet Take 2 tablets (1,000 mg total) by mouth every 6 (six) hours if needed for mild pain or moderate pain. 40 tablet 01/20/20 25 Active senna-docusate (PERICOLACE) 8.6-50 mg per tablet Take 2 tablets by mouth at bedtime. 60 each 11 02/10/20 25 026 Active oxyCODONE (ROXICODONE) 5 mg immediate release tabletIndication s:Ischemic leg Take 2 tablets (10 mg total) by mouth every 4 (four) hours if needed for severe pain. Max Daily Amount: 60 mg 04/13/20 25 Active oxyCODONE (ROXICODONE) 5 mg immediate release tabletIndication s:Ischemic leg Take 1 tablet (5 mg total) by mouth every 4 (four) hours if needed for moderate pain. Max Daily Amount: 30 mg 04/13/20 25 Active rivaroxaban (Xarelto) 2.5 mg tabletIndication s:Infrarenal abdominal aortic aneurysm (AAA) without rupture ([facility] V24),Occlusion of arterial bypass graft, subsequent encounter Take 1 tablet (2.5 mg total) by mouth 2 (two) times a day with meals. 60 tablet 01/11/20 25 025 Discontinu ed(Stop Taking at Discharge) oxyCODONE (ROXICODONE) 5 mg immediate release tabletIndication s:Critical limb ischemia of right lower extremity ([facility] V24, [facility] V28) Take 1 tablet (5 mg total) by mouth every 6 (six) hours if needed for severe pain. Max Daily Amount: 20 mg 20 tablet 01/20/20 25 025 Discontinu ed(Stop Taking at Discharge) oxyCODONE (ROXICODONE) 5 mg immediate release tabletIndication s:Gangrene of toe of right foot ([facility] V24, [facility] V28),Ischemic leg Take 2 tablets (10 mg total) by mouth every 4 (four) hours if needed for severe pain. Status post incision and drainage and amputation of toe Max Daily Amount: 60 mg 15 tablet 02/10/20 25 025 Discontinu ed(Stop Taking at Discharge) acetaminophen (TYLENOL) 500 mg tablet Take 2 tablets (1,000 mg total) by mouth every 6 (six) hours for 10 days. 04/13/20 25 025 Active Problems Problem Noted Date Diagnosed Date Anemia 04/11/2025 Chronic renal insufficiency 04/11/2025 Pacemaker 04/11/2025 Chronic obstructive pulmonar y disease ([facility] V24, [facility] V28) 04/11/2025 Gangrene of toe of right foot ([facility] V24, [facility] V28) 02/05/2025 Occlusion of arterial bypass graft ([facility] V24) 10/26/2024 Acute deep vein thrombosis ( DVT) of femoral vein of right lower extremity ([facility] V24, [facility] V28) 10/26/2024 Diabetic neuritis ([facility] V24, [facility] V28) Hypertension 08/29/2024 Lumbar spondylosis 09/22/2022 Overview (08/29/2024): Last Assessment & Plan: Mr. Omalley underwent bilateral radiofrequency ablation on 10/08/2022 at [facility] with some improvement lasting 1 month. [...] Bacterial pneumonia 04/21/2022 CHF (congestive heart failure) ([facility] V24, [facility] V28) 04/21/2022 Gastrointestinal hemorrhage 04/21/2022 Neuropathy 04/21/2022 SSS (sick sinus syndrome) ([facility] V24, [facility] V28) 04/21/2022 Overview (08/29/2024): Last Assessment & Plan: This is been stable. He is status post pacemaker generator replacement as he was end-of-life. This is working well. He is feeling better now that his heart rates are in the higher range. Acute hypoxemic respiratory failure ([facility] V24, [facility] V28) 04/21/2022 Heart block AV complete ([facility] V24, [facility] V2 8) 04/01/2022 AAA (abdominal aortic aneurysm) ([facility] V24) Overview (08/29/2024): Last Assessment & Plan: He had a repeat echo done recently. This showed no changes when compared to before. He has been followed by vascular surgery. Malignant neoplasm of right vocal cord ([facility] V24, [facility] V28) 11/06/2020 CKD (chronic kidney disease) stage 3, GFR 30-59 ml/min ([facility] V24, [facility] V28) 11/06/2020 Anxiety 08/09/2020 BPH (benign prostatic hyperplasia) 08/09/2020 Coronary artery disease invo lving flandreau heart without angina pectoris 08/09/2020 Overview (08/29/2024): [...] lifestyle choices and diet. Peripheral vascular disease ([facility] V24) 2019 Overview (08/29/2024): Last Assessment & Plan: This is stable. Again this is being followed by Dr. Banks. He states that he will be getting a lower extremity arterial study done in the next couple weeks. ST elevation myocardial infa rction (STEMI) ([facility] V24, [facility] V28) 08/09/2020 Overview (08/29/2024): Last Assessment & [...] low cholesterol diet and exercise. 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 ([facility] V24, [facility] V28) 08/09/2020 Type 2 diabetes mellitus wit h renal manifestations ([facility] V24, [facility] V28) 08/09/2020 Resolved Problems Problem Noted Date Diagnosed Date Resolved Date Ischemic leg 01/08/2025 04/13/2025 Critical limb ischemia of ri ght lower extremity ([facility] V24, [facility] V28) 01/08/2025 Epistaxis 10/28/2024 10/28/2024 Encounters Date Type Department Care Team Description 04/24/2025 Lab Requisition [facility] - Main Lab [address] [facility] [place] [address] Reyna Ford PA Unspecified atrial fibrillation (CMS/HCC V24, CMS/HCC V28) 04/23/2025 Lab Requisition [facility] Lab [address] [place] [phone] Rikki Rosen Encounter for other general examination 04/22/2025 Lab Requisition [facility] Lab [address] [place] [phone] Frances Meléndez PA Encounter for other general examination 04/21/2025 Lab Requisition [facility] Lab [address] [place] [phone] Frances Meléndez PA Encounter for other general examination 04/19/2025 Lab Requisition [facility] Lab [address] [place] [address] Rikki Rosen Encounter for other general examination 04/16/2025 Lab Requisition [facility] Lab [address] [place] [phone] Rikki Rosen Encounter for other general examination 04/15/2025 Lab Requisition [facility] Lab [address] [place] [phone] Frances Meléndez PA Encounter for other general examination 04/11/2025 3:36 PM EDT Anesthesia Event [facility] OR [address] [place] [phone] Nathan Lucio DO Kriz, Petra, MD 04/11/2025 3:35 PM EDT - 04/11/2025 5:05 PM EDT Surgery [facility] OR [address] [place] [phone] Ahmet Banks MD RIGHT BELOW KNEE AMPUTATION 04/10/2025 12:30 PM EDT - 04/14/2025 1:09 PM EDT Hospital Encounter [facility] [address] [place] [phone] Ju Valdez MD Kokosadze, Estate, MD Swelling (Primary Dx); Femoral-popliteal bypass graft occlusion, initial encounter ([facility] V24); 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 ([facility] V24, [facility] V28); Ischemic leg Discharge Disposition: [facility] 04/10/2025 11:30 AM EDT Office Visit Vascular Surgery [facility] [address] [facility] [address] [place] [address] Andie Chua PA PAD (peripheral artery disease) ([facility] V24) (Primary Dx); Infrarenal abdominal aortic aneurysm (AAA) without rupture ([facility] V24); History of amputation of fourth toe ([facility] V24); Critical limb ischemia of right lower extremity ([facility] V24, [facility] V28) 04/10/2025 Telephone Vascular Surgery [facility] [address] [facility] [address] [place] [address] Andie Chua PA Provider Call Back 02/27/2025 8:30 AM EDT Office Visit Vascular Surgery [address] [place] [address] Andie Chua PA PAD (peripheral artery disease) ([facility] V24) (Primary Dx); Infrarenal abdominal aortic aneurysm (AAA) without rupture ([facility] V24); History of amputation of fourth toe ([facility] V24) 02/21/2025 7:25 PM EDT Ancillary Procedure [facility] - [facility] [address] [facility] [address] [place] [address] 02/07/2025 1:22 PM EDT Anesthesia Event [facility] Main OR [address] [place] [phone] Kinjal Katz MD Millay, Julia, CRNA 02/07/2025 12:30 PM EDT - 02/07/2025 1:45 PM EDT Surgery [facility] Main OR [address] [place] [phone] Ahmet Banks MD INCISION DRAINAGE RIGHT FOOT 4TH MTP BONE CORTEX, WASHOUT AND WOUND CLOSURE & RIGHT FOOT SUTURE REMOVAL 02/06/2025 1:00 PM EDT - 02/06/2025 2:15 PM EDT Surgery [facility] OR [address] [place] [phone] Ahmet Banks MD RIGHT 4TH TOE OPEN AMPUTATION, REMOVAL SUTURE RIGHT INNER THIGH 02/06/2025 9:42 AM EDT Anesthesia Event [facility] OR [address] [place] [phone] Ezekiel Hudson MD Kriz, Petra, MD 02/05/2025 2:26 PM EDT - 02/09/2025 5:33 PM EDT Hospital Encounter [facility] [address] [place] [phone] Ju Valdez MD Surendran, Anupama, MD Zipagan, James T, MD Gangrene of toe of right foot ([facility] V24, [facility] V28) (Primary Dx); Gangrene ([facility] V24, [facility] V28); Osteomyelitis of fourth toe of right foot ([facility] V24, [facility] V28); Ischemic leg Discharge Disposition: Home-Health Care [facility] 02/05/2025 1:15 PM EDT Office Visit Vascular Surgery - [place] [address] [place] [phone] Ahmet Banks MD Critical limb ischemia of right lower extremity with ulceration of foot ([facility] V24, [facility] V28) (Primary Dx); PAD (peripheral artery disease) ([facility] V24); Infrarenal abdominal aortic aneurysm (AAA) without rupture ([facility] V24) from Last 3 Months Immunizations Name Administration [...] Site/Laterality Comments KNEE ARTHROSCOPY 2009 Right PROCEDURE: MD ARTHROSCOPY KNEE DIAGNOSTIC W/WO SYNOVIAL BX SPX; COMMENT: Meniscus TURP / TRANSURETHRAL INCISIO N / DRAINAGE PROSTATE 2004 PROCEDURE: HISTORICAL TURP OTHER SURGICAL HISTORY PROCEDURE: MD DUP-SCAN LXTR ART/ARTL BPGS UNI/LMTD STUDY; COMMENT: Angioplasty and stenting of the left leg PACEMAKER IMPLANT PROCEDURE: HISTORICAL PACEMAKER COLONOSCOPY 2011 PROCEDURE: HISTORICAL COLONOSCOPY OTHER SURGICAL HISTORY PROCEDURE: MD BIOPSY OROPHARYNX; COMMENT: Throat cancer had radiation x6 weeks [facility] EYE SURGERY PROCEDURE: HISTORICAL EYE SURGERY; COMMENT: [place] TONSILLECTOMY PROCEDURE: HISTORICAL TONSILLECTOMY OTHER SURGICAL HISTORY PROCEDURE: ---- HEMORRHOIDS ---- HERNIA REPAIR Bilateral PROCEDURE: REPAIR INGUINAL HERNIA CORONARY ARTERY BYPASS GRAFT 1996 PROCEDURE: HISTORICAL CABG; COMMENT: x4 NECK SURGERY PROCEDURE: HISTORICAL NECK SURGERY CARPAL TUNNEL RELEASE Right PROCEDURE: MD NEUROPLASTY &/TRANSPOS MEDIAN NRV CARPAL TUNNE; COMMENT: dr. cazares BACK SURGERY 10/08/2022 Bilateral PROCEDURE: HISTORICAL BACK SURGERY; COMMENT: Bilateral L3, L4 and L5 radiofrequency neurotomy Dr. Sahu OTHER SURGICAL HISTORY 06/15/2023 PROCEDURE: MD SLCTV CATHJ 3RD+ ORD SLCTV ABDL PEL/LXTR BRNCH OTHER SURGICAL HISTORY 06/15/2023 PROCEDURE: MD SLCTV CATHJ EA 2ND+ ORD ABDL PEL/LXTR ART BRNCH OTHER SURGICAL HISTORY 06/15/2023 PROCEDURE: X-RAY EXAM OF ARM/LEG ARTERY OTHER SURGICAL HISTORY 06/15/2023 PROCEDURE: ULTRASOUND GUIDANCE FOR VASCULAR AC OTHER SURGICAL HISTORY 06/01/2024 PROCEDURE: MD EVASC RPR DPLMNT ALSEH-MD-KURZJ NDGFT OTHER SURGICAL HISTORY 06/01/2024 PROCEDURE: MD OPN ILIAC ART EXPOS PROSTH/ILIAC OCCLS EVASC UNI OTHER SURGICAL HISTORY 06/01/2024 PROCEDURE: MD PERQ ACCESS & CLOSURE FEM ART FOR DELIVERY NDGFT OTHER SURGICAL HISTORY 06/01/2024 PROCEDURE: MD REVASC INTRAVASC LITHOTRIPSY OTHER SURGICAL HISTORY 06/28/2024 Left PROCEDURE: MD BYP OTH/THN VEIN FEM-ANT TIBL PST TIBL/PRONEAL Medical History Medical History Date Comments 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 ([facility] V24, [facility] V28) 08/09/2020 DX:Type 2 diabetes mellitus with neurological manifestation ([facility]) CKD (chronic kidney disease) stage 3, GFR 30-59 ml/min ([facility] V24, [facility] V28) 11/06/2020 DX:CKD (chronic kidney disea se) stage 3, GFR 30-59 ml/min ([facility]) Type 2 diabetes mellitus wit h renal manifestations ([facility] V24, [facility] V28) 08/09/2020 DX:Type 2 diabetes mellitus with renal manifestations ([facility]) CAD (coronary artery disease) 08/09/2020 DX :CAD (coronary artery disease); COMMENT: Multiple stenting procedures x 5. Pacemaker 08/09/2020 DX:Pacemaker ST elevation myocardial infa rction (STEMI) ([facility] V24, [facility] V28) 08/09/2020 DX:ST elevation hesham cardial infarction (STEMI) ([facility]) Throat cancer ([facility] V24, [facility] V28) 08/09/2020 DX:Throat cancer ([facility]); COMM ENT: 2020: received RT Hyperlipidemia 08/09/2020 DX:Hyperlipidemi a HTN (hypertension) 08/09/2020 DX:HTN (hyper tension) History of diverticulitis 08/09/2020 DX:His tory of diverticulitis Peripheral vascular disease ([facility] V24) 08/09/2020 DX:Peripheral vascular disea se ([facility]) Diabetic neuritis ([facility] V 24, [facility] V28) 08/09/2020 DX:Diabetic neuritis ([facility]) Gastroesophageal reflux dise ase without esophagitis 08/09/2020 DX:Gastroesophageal reflux d isease without esophagitis Anxiety 08/09/2020 DX:Anxiety Malignant neoplasm of right vocal cord ([facility] V24, [facility] V28) 11/06/2020 DX:Malignant neoplasm of ri ght vocal cord ([facility]) 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 Never true 04/12/2025 Within the past 12 months th e food we bought just didn't last and we didn't have money to get more. Never true 04/12/2025 Interpersonal Safety Answer Date Record ed Physical Abuse 04/10/2025 Verbal Abuse 04/10/2025 Sex and Gender Information Value Date Recorded Sex Assigned at Male 10/26/2024 4:21 PM EST Legal Sex Male 5:29 PM EST Gender Identity Male 10/26/2024 4:21 PM EST Sexual Orientation Straight 10/26/2024 4: 21 PM EST Obstetrics History Last Filed Vital Signs Vital Sign Reading Time Taken Comments Blood Pressure 146/50 04/14/2025 7:40 AM EDT Pulse 69 04/14/2025 7:40 AM EDT Temperature 36.8 C (98.3 F) 04/14/2025 7:40 AM EDT Respiratory Rate 20 04/14/2025 7:40 AM EDT Oxygen Saturation 99% 04/14/2025 7:40 AM EDT Inhaled Oxygen Concentration - - Weight 85.5 kg (188 lb 6.4 oz) 04/10/2025 3:01 P M EDT Height 172.7 cm (5' 8 ) 04/10/2025 12:10 PM EDT Body Mass Index 28.65 04/10/2025 12:10 PM EDT Plan of Treatment Upcoming Encounters Date Type Department Care Team (Late st Contact Info) Description 05/10/2025 12:00 PM EDT Office Visit Vascular Surgery - [place] [address] [place] [phone] Kinsey Boykin MD [address] [place] [address] 05/24/2025 11:00 AM EDT Ancillary Procedure [facility] [address] [facility] [address] [place] [address] 05/24/2025 12:00 PM EDT Ancillary Procedure [facility] [place] [facility] [address] [place] [address] 06/25/2025 11:00 AM EDT Office Visit Vascular Surgery - [place] [address] [place] [address] Ahmet Banks MD [address] [place] [address] Health Maintenance Due Date Last Done Comments Diabetes: Annual Retina Eye Exam 1950 COVID-19 Vaccine ( season) 2024 07/10/2022, 05/20/2021, 12/02/2020, Additional history exists Diabetes: Annual Foot Exam 09/07/2024 09/07/2023 Diabetes: Annual Urine Albumin-Creatinine Ratio (uACR) 09/08/2024 09/08/2023 Diabetes: Blood Sugar Control Test (HGBA1C) 09/21/2024 03/22/2024, 03/22/2024 Depression Screening 10/04/2024 Medicare Annual Wellness Visit 02/16/2025 02/17/2024 Influenza Vaccine (#1) 2025 , 06/29/2023, 07/03/2022, Additional history exists Social Influencers of Health Screening 04/12/2026 04/12/2025 Falls Risk Assessment 04/14/2026 04/14/2025 Diabetes: Annual GFR (Glomerular Filtration Rate) 04/23/2026 04/23/2025, 04/19/2025, 04/15/2025, Additional history exists Hypertension/CHF/CAD Annual BMP Blood Test 04/23/2026 04/23/2025, 04/19/2025, 04/15/2025, Additional history exists Cholesterol Screening (Lipid Panel) 09/08/2028 09/08/2023 DTaP,Tdap,and Td Vaccines (4 - Td or Tdap) 05/15/2031 05/15/2021, 08/12/2013, 04/12/2001 Zoster Vaccines Completed 08/03/2018, 01/29/2018 Pneumococcal Vaccine: 50+ Years Completed 02/09/2023, 07/04/2019, 01/29/2018, Additional history exists RSV Immunization Adult Patients Completed 09/28/2023 HIB Vaccines Aged Out No longer eligi [...] this topic Medical Devices Implanted Type Area Runner On Device Identifier Shelf Expiration Date Model / Serial / Lot Medt-Card [place] Xt Dr Artis [id number] Implanted: (Quantity not on file) Cardiac Pacemaker [employer] - CARDIAC RHYTH-CRDM KENDELL XT DR ARTIS [id number] / [id number] / Hemostat Absorb Surgicel 2x4in Fibrillar - Sn/A - [id number] Implanted:Qty : 1 on 01/17/2025 by Ahmet Banks MD at [facility] Hemostasis Right: Leg [employer] 07/03/2027 1962 / N/A / [id number] Sealant Fibrin Vistaseal 4ml - [id number] - [id number] Implanted:Qty : 1 on 01/17/2025 by Ahmet Banks MD at [facility] Hemostasis Right: Leg J [employer] [id number] 07/18/2026 [id number] / [id number] / [id number] Hemostat Absorb 1x2 Surgicel Fibrillar - Sn/A - [id number] Implanted:Qty : 1 on 02/07/2025 by Ahmet Banks MD at [facility] Hemostasis Right: Foot JNJ [employer] 07/03/2026 1961 / N/A / [id number] Vein Saphns 50-59cm A B Ab O Blood Type - [id number] - [id number] Implanted:Qty : 1 on 01/17/2025 by Ahmet Banks MD at [facility] [employer] Right: Leg [employer] 04/05/2029 [id number] / [id number] / [id number] Patch Biol Xenosure .8x8cm - Sn/A - [id number] Implanted:Qty : 1 on 01/17/2025 by Ahmet Banks MD at [facility] Vascular Grafts Right: Leg [employer] 12/29/2029 E0.8P8 / N/A / [id number] Procedures Procedure Name Priority Date/Time Associated Diagnosis Comments VITAMIN B12 Routine 04/24/2025 6:02 AM EDT Unspecified atrial fibrillation (CMS/HCC V24, CMS/HCC V28) COMPLETE BLOOD COUNT Routine 04/23/2025 6:20 AM EDT Encounter for other general examination BASIC METABOLIC PANEL Routine 04/23/2025 6:20 AM EDT Encounter for other general examination COMPLETE BLOOD COUNT Routine 04/22/2025 5:53 AM EDT Encounter for other general examination IRON AND TIBC Routine 04/21/2025 5:38 AM EDT Encounter for other general examination TYPE AND SCREEN Routine 04/19/2025 6:03 AM EDT Anemia, unspecified COMPLETE BLOOD COUNT Routine 04/19/2025 6:03 AM EDT Encounter for other general examination BASIC METABOLIC PANEL Routine 04/19/2025 6:03 AM EDT Encounter for other general examination CBC WITH AUTO DIFFERENTIAL Routine 04/16/2025 6:10 AM EDT Encounter for other general examination CBC AND DIFFERENTIAL Routine 04/16/2025 6:10 AM EDT Encounter for other general examination CBC WITH AUTO DIFFERENTIAL Routine 04/15/2025 6:42 AM EDT Encounter for other general examination MAGNESIUM Routine 04/15/2025 6:42 AM EDT Encounter for other general examination COMPREHENSIVE METABOLIC PANEL Routine 04/15/2025 6:42 AM EDT Encounter for other general examination CBC AND DIFFERENTIAL Routine 04/15/2025 6:42 AM EDT Encounter for other general examination SST - GOLD Routine 04/14/2025 8:25 AM EDT EXTRA TUBES Routine 04/14/2025 8:25 AM EDT HEMOGLOBIN AND HEMATOCRIT STAT 04/14/2025 8:25 AM EDT CBC WITH AUTO DIFFERENTIAL Routine 04/13/2025 6:06 AM EDT CBC AND DIFFERENTIAL Routine 04/13/2025 6:06 AM EDT BASIC METABOLIC PANEL Routine 04/13/2025 6:06 AM EDT CBC WITH AUTO DIFFERENTIAL Routine 04/12/2025 5:54 AM EDT CBC AND DIFFERENTIAL Routine 04/12/2025 5:54 AM EDT BASIC METABOLIC PANEL Routine 04/12/2025 5:54 AM EDT OXYGEN THERAPY, ADULT Routine 04/11/2025 5:11 PM EDT OXYGEN THERAPY, ADULT Routine 04/11/2025 5:11 PM EDT TISSUE EXAM Routine 04/11/2025 4:09 PM EDT 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 (CMS/[facility] V24, CMS/[facility] V28) TH AN LMA(NO CHARGE) Routine 04/11/2025 3:48 PM EDT AMPUTATION BELOW KNEE 04/11/2025 3:35 PM EDT 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 (CMS/HCC V24, CMS/[facility] V28) POCT GLUCOSE BLOOD Routine 04/11/2025 3: 14 PM EDT HEPARIN AND LOW MOLECULAR WEIGHT ANTI XA LEVEL Timed 04/11/2025 12:42 PM EDT HEPARIN AND LOW MOLECULAR WEIGHT ANTI XA LEVEL Timed 04/11/2025 6:28 AM EDT COMPLETE BLOOD COUNT Routine 04/11/2025 6:28 AM EDT BASIC METABOLIC PANEL Routine 04/11/2025 6:28 AM EDT HEPARIN AND LOW MOLECULAR WEIGHT ANTI XA LEVEL Timed 04/11/2025 12:04 AM EDT LACTATE Timed 04/11/2025 12:04 AM EDT HEPARIN AND LOW MOLECULAR WEIGHT ANTI XA LEVEL STAT 04/10/2025 9:12 PM EDT LACTATE Timed 04/10/2025 9:12 PM EDT LAVENDER - EDTA Routine 04/10/2025 4:37 PM EDT LT BLUE - NA CITRATE Routine 04/10/2025 4:37 PM EDT EXTRA TUBES Routine 04/10/2025 4:37 PM EDT LACTATE Timed 04/10/2025 4:37 PM EDT CREATINE KINASE Add-On 04/10/2025 4:37 PM EDT VAS US DUPLEX LOWER EXT ART RIGHT W DOPPLER Routine 04/10/2025 2:04 PM EDT Swelling HEPARIN AND LOW MOLECULAR WEIGHT ANTI XA LEVEL STAT Add-on 04/10/2025 12:31 PM EDT ACTIVATED PARTIAL THROMBOPLASTIN TIME STAT Add-on 04/10/2025 12:31 PM EDT CBC WITH AUTO DIFFERENTIAL STAT 04/10/2025 12:31 PM EDT TYPE AND SCREEN STAT 04/10/2025 12:31 PM EDT PROTHROMBIN TIME WITH INR STAT 04/10/2025 12:31 PM EDT BASIC METABOLIC PANEL STAT 04/10/2025 12:31 PM EDT CBC AND DIFFERENTIAL STAT 04/10/2025 12:31 PM EDT CARDIAC DEVICE CHECK- REMOTE- MURJ Routine 02/21/2025 [...] CULTURE BLOOD STAT 02/05/2025 2:48 PM EDT HEMOGLOBIN A1C Routine 03/22/2024 URINE ALBUMIN CREATININE RATIO Routine 09/08/2023 LIPID PANEL Routine 09/08/2023 DIABETES FOOT EXAM Routine 09/07/2023 from Last 3 Months or Most Recently Relevant to Health Maintenance Results * (ABNORMAL) Vitamin B12 (04/24/2025 6:02 AM EDT) [facility] Vitamin B-12 1,498(H) 250 - 900 pcg/mL LAB CHEMISTRY METHOD 04/24/2025 12:00 PM EDT [facility] Blood Venous blood specimen / Unknown Venipuncture / Unknown 04/24/2025 6:02 AM EDT 04/24/2025 10:02 AM EDT us Reyna CHACON LAB BLOOD ORDERABLES Final Re sult [facility] [address] [place] [address], [place] [phone] * (ABNORMAL) Complete blood count (04/23/2025 6:20 AM EDT) Only the most recent of5 resultswithin the time period is included. [facility] WBC 7.8 4.8 - 10.8 K/mcL LAB HEMETOLOGY METHOD 04/23/2025 12:36 PM T [facility] RBC 2.30(L) 4.50 - 5.50 M/mcL LAB HEMETOLOGY METHOD 04/23/2025 12:36 PM [facility] Hemoglobin 7.7(L) 13.5 - 17.5 g/dL LAB HEMETOLOGY METHOD 04/23/2025 12:36 PM [facility] Hematocrit 25.3(L) 42.0 - 54.0 % LAB HEMETOLOGY METHOD 04/23/2025 12:36 PM [facility] MCV 108.6(H) 79.0 - 98.0 FL LAB HEMETOLOGY METHOD 04/23/2025 12:36 PM [facility] MCH 33.0(H) 27.0 - 32.0 pcg LAB HEMETOLOGY METHOD 04/23/2025 12:36 PM [facility] MCHC 30.4(L) 32.0 - 37.0 g/dL LAB HEMETOLOGY METHOD 04/23/2025 12:36 PM [facility] RDW 17.2(H) 11.0 - 15.0 % LAB HEMETOLOGY METHOD 04/23/2025 12:36 PM [facility] Platelets 360 130 - 400 K/mcL LAB HEMETOLOGY METHOD 04/23/2025 12:36 PM [facility] MPV 9.8 7.0 - 11.0 FL LAB HEMETOLOGY METHOD 04/23/2025 12:36 PM [facility] NRBC 0.0 <1.0 % LAB HEMETOLOGY METHOD 04/23/2025 12:36 PM [facility] NRBC Absolute 0.00 <0.10 K/mcL LAB HEMETOLOGY METHOD 04/23/2025 12:36 PM [facility] Blood Venous blood specimen / Unknown Venipuncture / Unknown 04/23/2025 6:20 AM EDT 04/23/2025 10:31 AM EDT us Rikki Rosen LAB BLOOD ORDERABLES Final Resu lt [facility] [address] [place] [address], [place] [phone] * (ABNORMAL) Basic metabolic panel (04/23/2025 6:20 AM EDT) Only the most recent of11 resultswithin the time period is included. Sodium 138 133 - 145 mmol/L LAB CHEMISTRY METHOD 04/23/2025 2:56 PM [facility] Potassium 4.3 3.5 - 5.5 mmol/L LAB CHEMISTRY METHOD 04/23/2025 2:56 PM [facility] Chloride 105 96 - 110 mmol/L LAB CHEMISTRY METHOD 04/23/2025 2:56 PM [facility] CO2 25 21 - 32 mmol/L LAB CHEMISTRY METHOD 04/23/2025 2:56 PM [facility] Anion Gap 8 3 - 11 LAB CHEMISTRY METHOD 04/23/2025 2:56 PM [facility] Glucose 95 70 - 100 mg/dL LAB CHEMISTRY METHOD 04/23/2025 2:56 PM [facility] BUN 36(H) 5 - 25 mg/dL LAB CHEMISTRY METHOD 04/23/2025 2:56 PM [facility] Creatinine 1.68(H) 0.70 - 1.30 mg/dL LAB CHEMISTRY METHOD 04/23/2025 2:56 PM [facility] eGFR 40(L) >=60 mL/min/1. 73m2 LAB CHEMISTRY METHOD 04/23/2025 2:56 PM [facility] Comment:Calculation based on the Chronic Kidney Disease Epidemiology Collaboration (CKD-EPI) equation refit without adjustment for race. BUN/Creatinine Ratio 21.4 LAB CHEMISTRY METHOD 04/23/2025 2:56 PM EDT [facility] Calcium 8.7 8.5 - 10.5 mg/dL LAB CHEMISTRY METHOD 04/23/2025 2:56 PM EDT [facility] Blood Venous blood specimen / Unknown Venipuncture / Unknown 04/23/2025 6:20 AM EDT 04/23/2025 10:31 AM EDT us Rikki Rosen LAB BLOOD ORDERABLES Final Resu lt Performing Organization Address [facility]/ZIP Co de Phone Number [facility] [address] [place] [address], [place] [phone] * (ABNORMAL) Iron and TIBC (04/21/2025 5:38 AM EDT) Iron 75 50 - 160 mcg/dL LAB CHEMISTRY METHOD 04/21/2025 11:20 AM EDT [facility] TIBC 385 250 - 450 mcg/dL LAB CHEMISTRY METHOD 04/21/2025 11:20 AM EDT [facility] Iron Saturation 19(L) 20 - 50 % LAB CHEMISTRY METHOD 04/21/2025 11:20 AM EDT [facility] Blood Venous blood specimen / Unknown Venipuncture / Unknown 04/21/2025 5:38 AM EDT 04/21/2025 9:48 AM EDT Frances CHACON LAB BLOOD ORDERABLES Final Resul t Performing Organization Address [facility]/ZIP Co de Phone Number [facility] [address] [place] [address], [place] [phone] * Type and screen (04/19/2025 6:03 AM EDT) Only the most recent of2 resultswithin the time period is included. Pathologist [facility] ABO Group O 04/19/2025 11:25 AM EDT [facility] Rh Type Positive 04/19/2025 11:25 AM EDT [facility] Antibody Screen Negative 04/19/2025 11:25 AM EDT [facility] Blood Venous blood specimen / Unknown Venipuncture / Unknown 04/19/2025 6:03 AM EDT 04/19/2025 9:58 AM EDT us Toro Fernandez MD LAB BLOOD BANK TEST ORDERABLES Final Result [facility] [address] [place] [address], [place] [phone] * (ABNORMAL) CBC auto differential (04/16/2025 6:10 AM EDT) Only the most recent of9 resultswithin the time period is included. Pathologist [facility] WBC 7.1 4.8 - 10.8 K/mcL LAB HEMETOLOGY [facility] RBC 2.20(L) 4.50 - 5.50 M/mcL LAB HEMETOLOGY METHOD 04/16/2025 12:45 PM [facility] Hemoglobin 7.2(L) 13.5 - 17.5 g/dL LAB HEMETOLOGY METHOD 04/16/2025 12:45 PM EDT [facility] Hematocrit 23.2(L) 42.0 - 54.0 % LAB HEMETOLOGY METHOD 04/16[facility]2025 12[facility] MCV 105.9(H) 79.0 - 98.0 FL LAB HEMETOLOGY METHOD 04/16/2025 12:45 PM [facility] MCH 32.9(H) 27.0 - 32.0 pcg LAB HEMETOLOGY METHOD 04/16/2025 12:45 PM EDT [facility] MCHC 31.0(L) 32.0 - 37.0 g/dL LAB HEMETOLOGY METHOD 04/16/2025 12:45 PM [facility] RDW 15.7(H) 11.0 - 15.0 % LAB HEMETOLOGY METHOD 04/16/2025 12:45 PM EDT [facility] Platelets 198 130 - 400 K/mcL LAB HEMETOLOGY METHOD 04/16/2025 12:45 PM [facility] MPV 10.7 7.0 - 11.0 FL LAB HEMETOLOGY METHOD 04/16/2025 12:45 PM [facility] NRBC 0.0 <1.0 % LAB HEMETOLOGY METHOD 04/16/2025 12:45 PM [facility] NRBC Absolute 0.00 <0.10 K/mcL LAB HEMETOLOGY METHOD 04/16/2025 12:45 PM [facility] Neutrophils Relative 55.2 % LAB HEMETOLOGY METHOD 04/16/2025 12:45 PM [facility] Lymphocytes Relative 23.4 % LAB HEMETOLOGY METHOD 04/16/2025 12:45 PM [facility] Monocytes Relative 13.6 % LAB HEMETOLOGY METHOD 04/16/2025 12:45 PM [facility] Eosinophils Relative 6.9 % LAB HEMETOLOGY METHOD 04/16/2025 12:45 PM [facility] Basophils Relative 0.6 % LAB HEMETOLOGY METHOD 04/16/2025 12:45 PM [facility] Immature Granulocytes Relative 0.3 % LAB HEMETOLOGY METHOD 04/16/2025 12:45 PM [facility] Neutrophils Absolute 3.95 1.50 - 7.00 K/mcL LAB HEMETOLOGY METHOD 04/16/2025 12:45 PM EDT [facility] Lymphocytes Absolute 1.67 1.00 - 5.00 K/[facility] LAB HEMETOLOGY METHOD 04/16/2025 12:45 PM EDT [facility] Monocytes Absolute 0.97 0.20 - 1.00 K/[facility] LAB HEMETOLOGY METHOD 04/16/2025 12:45 PM EDT [facility] Eosinophils Absolute 0.49 0.00 - 0.50 K/[facility] LAB HEMETOLOGY METHOD 04/16/2025 12:45 PM EDT [facility] Basophils Absolute 0.04 0.00 - 0.20 K/[facility] LAB HEMETOLOGY METHOD 04/16/2025 12:45 PM EDT [facility] Immature Granulocytes Absolute 0.02 0.00 - 0.03 K/[facility] LAB HEMETOLOGY METHOD 04/16/2025 12:45 PM EDT [facility] Blood Venous blood specimen / Unknown Venipuncture / Unknown 04/16/2025 6:10 AM EDT 04/16/2025 10:48 AM EDT Rikki Rosen LAB BLOOD ORDERABLES Final Resu lt [facility] [address] [place] [address], * Magnesium (04/15/2025 6:42 AM EDT) Magnesium 2.2 1.9 - 2.6 mg/dL LAB CHEMISTRY METHOD 04/15/2025 1:13 PM EDT [facility] Blood Venous blood specimen / Unknown Venipuncture / Unknown 04/15/2025 6:42 AM EDT 04/15/2025 12:05 PM EDT Frances CHACON LAB BLOOD ORDERABLES Final Resul t [facility] [address] [place] [address], * (ABNORMAL) Comprehensive metabolic panel (04/15/2025 6:42 AM EDT) Sodium 138 133 - 145 mmol/L LAB CHEMISTRY METHOD 04/15/2025 1:24 PM EDT [facility] Potassium 4.2 3.5 - 5.5 mmol/L LAB CHEMISTRY METHOD 04/15/2025 1:24 PM [facility] Chloride 107 96 - 110 mmol/L LAB CHEMISTRY METHOD 04/15/2025 1:24 PM [facility] CO2 26 21 - 32 mmol/L LAB CHEMISTRY METHOD 04/15/2025 1:24 PM [facility] Anion Gap 5 3 - 11 LAB CHEMISTRY METHOD 04/15/2025 1:24 PM [facility] Glucose 115(H) 70 - 100 mg/dL LAB CHEMISTRY METHOD 04/15/2025 1:24 PM [facility] BUN 28(H) 5 - 25 mg/dL LAB CHEMISTRY METHOD 04/15/2025 1:24 PM [facility] Creatinine 1.49(H) 0.70 - 1.30 mg/dL LAB CHEMISTRY METHOD [facility] eGFR 46(L) >=60 mL/min/1. 73m2 LAB CHEMISTRY METHOD 04/15/2025 1:24 PM [facility] Comment:Calculation based on the Chronic Kidney Disease Epidemiology Collaboration (CKD-EPI) equation refit without adjustment for race. BUN/Creatinine Ratio 18.8 LAB CHEMISTRY METHOD 04/15/2025 1:24 PM [facility] Calcium 8.6 8.5 - 10.5 mg/dL LAB CHEMISTRY METHOD 04/15/2025 1:24 PM EDT [facility] AST (SGOT) 60(H) 10 - 42 unit/L LAB CHEMISTRY METHOD 04/15/2025 1:24 PM EDT [facility] Comment:Results verified by repeat testing ALT (SGPT) 23 10 - 60 unit/L LAB CHEMISTRY METHOD 04/15/2025 1:24 PM EDT [facility] Alkaline Phosphatase 41(L) 42 - 121 unit/L LAB CHEMISTRY METHOD 04/15/2025 1:24 PM EDT [facility] Total Protein 5.9(L) 6.0 - 8.0 g/dL LAB CHEMISTRY METHOD 04/15/2025 1:24 PM EDT [facility] Albumin 2.8(L) 3.2 - 5.0 g/dL LAB CHEMISTRY METHOD 04/15/2025 1:24 PM EDT [facility] Total Bilirubin 0.6 0.0 - 1.4 mg/dL LAB CHEMISTRY METHOD 04/15/2025 1:24 PM EDT [facility] Blood Venous blood specimen / Unknown Venipuncture / Unknown 04/15/2025 6:42 AM EDT 04/15/2025 12:05 PM EDT us Frances CHACON LAB BLOOD ORDERABLES Final Resul t [facility] [address] [place] [address], * SST tube (04/14/2025 8:25 AM EDT) Extra Tube Hold for add-ons. 04/14/2025 10:01 AM EDT [facility] Comment:Auto resulted. Blood Venous blood specimen / Unknown 04/14/2025 8:25 AM EDT 04/14/2025 8:33 AM EDT us Kerry Ji MD LAB BLOOD ORDERABLES Final R esult Performing Organization Address City/[facility]/ZIP Co de Phone Number [facility] [address] [place] [address], [place] [phone] * (ABNORMAL) Hemoglobin and hematocrit (04/14/2025 8:25 AM EDT) Hemoglobin 7.1(L) 13.5 - 17.5 g/dL LAB HEMETOLOGY METHOD 04/14/2025 8:42 AM EDT [facility] Hematocrit 23.5(L) 42.0 - 54.0 % LAB HEMETOLOGY METHOD 04/14/2025 8:42 AM EDT [facility] Blood Venous blood specimen / Unknown Venipuncture / Unknown 04/14/2025 8:25 AM EDT 04/14/2025 8:32 AM EDT Kerry Ji MD LAB BLOOD ORDERABLES Final R esult Performing Organization Address [facility]/ZIP Co de Phone Number [facility] [address] [place] [address], * Tissue exam (04/11/2025 4:09 PM EDT) Only the most recent of3 resultswithin the time period is included. 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 Leg, Right, right below knee amputation: Labeled right bel leg R . Received fresh is a right below the knee amputation specimen measuring 31.0 cm in length (heel to margin) with an attached 24.5 cm in length foot. There is up to 4.0 cm of exposed tibia and fibula at the margin. The bone, soft tissue and muscle at the margin are grossly viable. Digit four is surgically absent and contiguous with white fibrotic skin. All other digits are present each with an unremarkable unguis. Ulcers are absent. The skin of the forefoot contains a 3.0 x 1.0 cm hemorrhagic area. On sectioning this area shows an occluded vessel containing a red rubbery thrombus (corresponding to anterior tibial artery). The lower leg shows a linear, 4.5 cm in length well-healed scar (in the region of the anterior tibial artery) as well as medial lower leg 7.0 cm in length well-healed scar. The lateral aspect of the leg shows a 2.2 cm in greatest diameter chavarria macule which is 1.1 cm from the nearest skin margin. The skin shows a loss of hair. No other areas are noted. A vascular dissection is performed. The remaining anterior tibial artery contains multiple lashay attached to it and surrounding it towards the lower leg. The remaining cut surfaces are calcified and near occluded. The posterior tibial artery is narrowed and contains rubbery plaques and a questionable thrombus (up to 70% narrowing). The peroneal artery shows approximately 60% narrowing by calcified rubbery plaques. Accompanying the specimen is a consent form authorizing [facility] to dispose of the limb. Brimming Machine Operator sections are submitted in six cassettes. 1-skin, soft tissue and muscle from the margin-taken perpendicularly and bone marrow from the margin, 1+ multiple pieces 2-manufacturers service representative bony margins (tibia-one larger piece and tibia-two smaller pieces; en face, red ink use for embedding) and cross-section of peroneal artery, four pieces, following decalcification 3-sections of skin scars and macule towards margin, three pieces 4-previous amputation site and cross-section of anterior vessel with overlying skin including thrombus, two pieces 5-cnmiv-rherqkyd of the anterior tibial artery, four pieces, following decalcification 9-gzsyq-[id number] of posterior tibial artery, following decalcification, two pieces TS 04/16/2025 3:02 PM EDT [facility]) [facility] Disclaimer Unless otherwise specified, all tissue is 10% NB formalin fixed and paraffin embedded. 04/16/2025 3:02 PM T [facility] Tissue Structure of right lower limb / Unknown 04/11/2025 4:09 PM EDT 04/12/2025 6:33 AM EDT Ahmet Banks MD LAB PATHOLOGY ORDERABLES Final Result Performing Organization Address City/[facility]/ZIP Co de Phone Number [facility] [address] [place] [address], [place] [phone] * TH AN LMA(NO CHARGE) (04/11/2025 3:48 PM EDT) Narrative Bridgette Cadet CRNA - 04/11/2025 3:48 PM EDT Bridgette Cadet CRNA 04/11/2025 3:49 PM General Information and Staff Patient location during procedure: OR Performed by: Bridgette Cadet CRNA Authorized by: Nathan Lucio DO Intubation Airway not difficult Urgency: elective Final Airway Details Number of attempts at approach: 1 Ventilation between attempts: none Number of other approaches attempted: 0 LMA Size: 5 LMA Type: Classic LMA Seal Pressure: Final airway type: LMA Indications and Patient Condition Indications for airway management: anesthesia Spontaneous ventilation: present Sedation level: Yes Preoxygenated: yes Soft Tissue Damage: No Dentition Unchanged: Yes Patient position: neutral MILS not maintained throughout Mask difficulty assessment: 0 - not attempted Start Time: 04/11/2025 3:43 PMStop Time: 04/11/2025 3:43 PM us Nathan Lucio DO ANESTHESIA ORDERABLES Final Result * (ABNORMAL) POCT Glucose, blood (04/11/2025 3:14 PM EDT) Only the most recent of14 resultswithin the time period is included. Glucose POCT 108(H) 70 - 100 mg/dL 04/11/2025 3:15 PM EDT [facility] Blood Capillary blood specimen / Unknown 04/11/2025 3:14 PM EDT 04/11/2025 3:16 PM EDT Kerry Ji MD LAB POINT OF CARE TE ST DOCKED DEVICE UNSOLICITED RESULTS Final Result Performing Organization Address City/[facility]/ZIP Co de Phone Number [facility] [address] [place] [address], * Anti-Xa - Every 6 Hours (04/11/2025 12:42 PM EDT) Only the most recent of5 resultswithin the time period is included. [facility] Heparin Anti-Xa 0.55 0.30 - 0.70 I Unit/mL LAB COAGULATION METHOD 04/11/2025 1:18 PM EDT [facility] Blood Venous blood specimen / Unknown Venipuncture / Unknown 04/11/2025 12:42 PM EDT 04/11/2025 12:56 PM EDT Narrative [facility] - 04/11/2025 1:18 PM EDT Therapeutic range listed is for Unfractionated Heparin. LMW Heparin therapeutic range: 0.50-1.20 IU/mL us Ju Valdez MD LAB BLOOD ORDERABLES Final Res ult Performing Organization Address City/[facility]/ZIP Co de Phone Number [facility] [address] [place] [address], [place] [phone] * Lactate (04/11/2025 12:04 AM EDT) Only the most recent of3 resultswithin the time period is included. [facility] Lactate 0.8 0.4 - 2.0 mmol/L LAB CHEMISTRY METHOD 04/11/2025 12:58 AM EDT [facility] Blood Venous blood specimen / Unknown Venipuncture / Unknown 04/11/2025 12:04 AM EDT 04/11/2025 12:13 AM EDT us Ju Valdez MD LAB BLOOD ORDERABLES Final Res ult [facility] [address] [place] [address], [place] [phone] * Lavender tube (04/10/2025 4:37 PM EDT) [facility] Extra Tube Hold for add-ons. 04/10/2025 6:01 PM EDT [facility] Comment:Auto resulted. Blood Venous blood specimen / Unknown 04/10/2025 4:37 PM EDT 04/10/2025 4:48 PM EDT us Ju Valdez MD LAB BLOOD ORDERABLES Final Res ult [facility] [address] [place] [address], [place] [phone] * Light blue tube (04/10/2025 4:37 PM EDT) Extra Tube Hold for add-ons. 04/10/2025 6:01 PM EDT [facility] Comment:Auto resulted. Blood Venous blood specimen / Unknown 04/10/2025 4:37 PM EDT 04/10/2025 4:48 PM EDT us Ju Valdez MD LAB BLOOD ORDERABLES Final Res ult Performing Organization Address [facility]/ZIP Co de Phone Number [facility] [address] [place] [address], [place] [phone] * Creatine kinase (04/10/2025 4:37 PM EDT) Total CK 32 22 - 269 unit/L LAB CHEMISTRY METHOD 04/10/2025 5:20 PM EDT [facility] Blood Venous blood specimen / Unknown Venipuncture / Unknown 04/10/2025 4:37 PM EDT 04/10/2025 4:44 PM EDT us Ju Valdez MD LAB BLOOD ORDERABLES Final Res ult Performing Organization Address City/[facility]/ZIP Co de Phone Number [facility] [address] [place] [address], [place] [phone] * Vascular US duplex lower extremity arteries right with Doppler (04/10/2025 2:04 PM EDT) Anatomical Region Laterality Modality Vascular, Abdomen Ultrasound 04/10/2025 2:32 PM EDT Impressions 04/10/2025 2:39 PM EDT Right leg: Moderate to severe atherosclerotic changes throughout the right lower extremity with occluded bypass grafts from the distal thigh to the distal calf. -------- FINAL REPORT -------- Dictated By: Tacho Doyle Dictated Date: 04/10/2025 14:32 ET Assigned Physician: Tacho Doyle Reviewed and Electronically Signed By: Tacho Doyle Signed Date: 04/10/2025 14:39 ET Workstation ID: [id number] Transcribed By: Self Edit Transcribed Date: 04/10/2025 14:32 ET Narrative 04/10/2025 2:39 PM EDT INDICATION: Peripheral vascular disease, right lower extremity pain TECHNIQUE: Arterial duplex imaging obtained of the right lower extremity. Prior relevant imaging studies: CTA of the aorta and lower extremities from May 02, 2024. Right leg: Common femoral artery: Calcified plaque with velocity measuring 102 cm/s with triphasic waveform. Superficial femoral artery: 55 cm/s proximally dropping down to 41 cm second distally. Monophasic flow noted distally. Popliteal artery: Increased velocity in the proximal popliteal artery up to 233 cm/s with abnormal monophasic waveform. Velocity measures 107 cm/s in the mid vessel and 94 cm/s distally. Posterior tibial artery: Slow flow throughout with occlusion distally. Anterior tibial artery: Very slow flow in the proximal and distal vessel with occlusion in the mid vessel. No significant flow in the dorsalis pedis artery. Occluded bypass graft noted from the distal thigh into the distal calf. Procedure Note Tacho Doyle MD - 04/10/2025 INDICATION: Peripheral vascular disease, right lower extremity pain TECHNIQUE: Arterial duplex imaging obtained of the right lowerextremity. Prior relevant imaging studies: CTA of the aorta and lower extremitiesfrom May 02, 2024. Right leg: Common femoral artery: Calcified plaque with velocity measuring 102 cm/swith triphasic waveform. Superficial femoral artery: 55 cm/s proximally dropping down to 41 cmsecond distally. Monophasic flow noted distally. Popliteal artery: Increased velocity in the proximal popliteal artery upto 233 cm/s with abnormal monophasic waveform. Velocity measures 107 cm/sin the mid vessel and 94 cm/s distally. Posterior tibial artery: Slow flow throughout with occlusion distally. Anterior tibial artery: Very slow flow in the proximal and distal vesselwith occlusion in the mid vessel. No significant flow in the dorsalis pedis artery. Occluded bypass graft noted from the distal thigh into the distal calf. IMPRESSION: Right leg: Moderate to severe atherosclerotic changes throughout the rightlower extremity with occluded bypass grafts from the distal thigh to thedistal calf. -------- FINAL REPORT -------- Dictated By: Tacho Doyle Dictated Date: 04/10/2025 14:32 ET Assigned Physician: Tacho Doyle Reviewed and Electronically Signed By: Tacho Doyle Signed Date: 04/10/2025 14:39 ET Workstation ID: [id number] Transcribed By: Self Edit Transcribed Date: 04/10/2025 14:32 ET us Ju Valdez MD CV VASCULAR PROCEDURES Final R esult * (ABNORMAL) Activated Partial Thromboplastin Time - STAT (04/10/2025 12:31 PM EDT) aPTT 46.6(H) 24.1 - 39.3 sec LAB COAGULATION METHOD 04/10/2025 3:07 PM EDT [facility] Blood Venous blood specimen / Unknown Venipuncture / Unknown 04/10/2025 12:31 PM EDT 04/10/2025 1:03 PM EDT us Joselyn CHACON LAB BLOOD ORDERABLES Fin al Result [facility] [address] [place] [address], [place] [phone] * Prothrombin time with INR (04/10/2025 12:31 PM EDT) Protime 11.5 10.6 - 13.9 sec LAB COAGULATION METHOD 04/10/2025 1:14 PM EDT [facility] INR 0.9 LAB COAGULATION METHOD 04/10/2025 1:14 PM EDT [facility] Blood Venous blood specimen / Unknown Venipuncture / Unknown 04/10/2025 12:31 PM EDT 04/10/2025 1:03 PM EDT us Ju Valdez MD LAB BLOOD ORDERABLES Final Res ult [facility] [address] [place] [address], * Cardiac device check - Remote- MURJ (02/21/2025 7:24 PM EDT) Date Time Interrogation Session [id number] CV DEVICE CHECK Type Interrogation Session Remote CV DEVICE CHECK Implantable Pulse Generator Runner On MDT CV DEVICE CHECK Implantable Pulse Generator Type IPG CV DEVICE CHECK Implantable Pulse Generator Model [place] XT DR MRI [id number] CV DEVICE CHECK Implantable Pulse Generator Serial Number [id number] CV DEVICE CHECK Implantable Pulse Generator Implant Date [id number] CV DEVICE CHECK Battery Remaining Longevity 101.0 CV DEVICE CHECK Battery Voltage 3.000 CV D EVICE CHECK Battery TELESALES TEAM LEADER Trigger 2.625 CV DEVICE CHECK Battery Status Middle of Service CV DEVICE CHECK Jag Statistic RA Percent Paced 98.75 CV DEVICE CHECK Jag Statistic RV Percent Paced 99.82 CV DEVICE CHECK Atrial Tachy Statistic AT/AF [place] Percent 0.00 CV DEVICE CHECK Lead Channel [...] CARDIAC DEV ICE PROCEDURES Final Result * Vancomycin, trough Please draw level 1 hour prior to vancomycin administration (02/08/2025 1:11 PM EDT) Vancomycin Trough 11.5 10.0 - 20.0 mcg/mL LAB CHEMISTRY METHOD 02/08/2025 2:11 PM EDT [facility] Blood Venous blood specimen / Unknown Venipuncture / Unknown 02/08/2025 1:11 PM EDT 02/08/2025 1:21 PM EDT us Andie CHACON LAB BLOOD ORDERABLES Final Res ult [facility] [address] [place] [address], * XR Foot 2 Views Right (02/07/2025 [...] Signed Date: 02/07/2025 15:11 ET Workstation ID: [id number] Transcribed By: Self Edit Transcribed Date: 02/07/2025 [...] Signed Date: 02/07/2025 15:11 ET Workstation ID: [id number] Transcribed By: Self Edit Transcribed Date: 02/07/2025 15:11 ET us Andie CHACON IMG XR PROCEDURES Final Result * Culture tissue with gram stain (02/07/2025 1:48 PM EDT) Culture, Tissue No growth aerobically and anaerobically at 5 days. 02/12/2025 9:14 AM EDT [facility] Gram Stain Result No polymorphonuclear leukocytes, No epithelial cells, and No organisms noted 02/12/2025 9:14 AM EDT [facility] Tissue Structure of right foot / Unknown 02/07/2025 1:48 PM EDT 02/07/2025 2:27 PM EDT Ahmet Banks MD LAB MICROBIOLOGY - GENERAL VLADIMIR GREWAL Final Result [facility] [address] [place] [address], * Culture bone (02/07/2025 1:48 PM EDT) Culture, Bone No growth aerobically and anaerobically at 5 days. 02/12/2025 9:15 AM EDT [facility] Gram Stain Result Rare Polymorphonuclear leukocytes 02/12/2025 9:15 AM EDT [facility] Gram Stain Result No Epithelial cells 02/12/2025 9:15 AM EDT [facility] Gram Stain Result No organisms seen 02/12/2025 9:15 AM EDT [facility] Bone Structure of right foot / Unknown 02/07/2025 1:48 PM EDT 02/07/2025 2:28 PM EDT us Ahmet Banks MD LAB MICROBIOLOGY - GENERAL VLADIMIR GREWAL Final Result [facility] [address] [place] [address], * TH AN LMA(NO CHARGE) (02/07/2025 1:32 [...] ECG 12 lead (02/07/2025 10:23 AM EDT) Ventricular Rate ECG 70 BPM GEMUSE Atrial Rate 70 BPM GEMUSE P-R Interval 282 ms GEMUSE QRS Duration 120 ms GEMUSE Q-T Interval 418 ms GEMUSE QTc 451 ms GEMUSE P Wave [place] -20 degrees GEMUSE R [place] -56 degrees GEMUSE T [place] 72 degrees GEMUSE ECG Interpretation AV dual-paced [...] during procedure: OR Anesthesiologist: Monae Borges MD Resident/ELECTRIC METER REPAIRER HELPER: Romi Price CRNA Other anesthesia staff: LISA [...] Mask difficulty assessment: 0 - not attempted Ezekiel Hudson MD ANESTHESIA ORDERABLES Edited R esult - Final * Culture blood (02/05/2025 4:44 PM EDT) Only the most recent of2 resultswithin the time period is included. Culture, Blood No growth at 5 days 02/10/2025 5:01 PM EDT [facility] Blood Venous blood specimen / Unknown Venipuncture / Unknown 02/05/2025 4:44 PM EDT 02/05/2025 4:53 PM EDT Anika CHACON LAB MICROBIOLOGY - GENERAL OR DERABLES Final Result Performing Organization Address City/[facility]/ZIP Co de Phone Number [facility] [address] [place] [address], [place] [phone] * Lactate, with reflex (02/05/2025 2:48 PM EDT) [facility] LACTIC ACID 1.5 0.4 - 2.0 mmol/L LAB CHEMISTRY METHOD 02/05/2025 3:35 PM EDT [facility] Blood Venous blood specimen / Unknown Venipuncture / Unknown 02/05/2025 2:48 PM EDT 02/05/2025 3:04 PM EDT Anika CHACON LAB BLOOD ORDERABLES Final Re sult [facility] [address] [place] [address], [place] [phone] * Hemoglobin A1c (03/22/2024) [facility] Hemoglobin A1C 6.4 <=6.5 % Blood Venous blood specimen / Unknown Result [facility] Provider LAB BLOOD ORDERABLES Rosa Isela l Result * Urine Albumin Creatinine Ratio (09/08/2023) [facility] Urine Albumin Creatinine Ratio Abstracted Result [facility] Provider HEALTH MAINTENANCE Final Result * (ABNORMAL) Lipid panel (09/08/2023) [facility] LDL/HDL Ratio 4 0 - 4 Triglycerides 249(A) 0 - 150 mg/dL Cholesterol 130 0 - 200 mg/dL HDL 34(A) >=40 mg/dL LDL Cholesterol 47 0 - 100 mg/dL Blood Venous blood specimen / Unknown Result [facility] Provider LAB BLOOD ORDERABLES Rosa Isela l Result * Diabetes Foot Exam (09/07/2023) [facility] Diabetes: Annual Foot Exam Abstracted Result [facility] Provider HEALTH MAINTENANCE Final Result from Last 3 Months or Most Recently Relevant to Health Maintenance Insurance MEDICARE [facility] Advance Directives Documents on File Type Date Recorded 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 DNR (Do Not Resuscitate) 02/12/2025 9:30 AM DNR (Do Not Resuscitate) 01/22/2025 9:00 AM Health Care Decision (hx) 07/03/2024 AD HARGROVE DIRECTIVE Health Care Decision (hx) 06/03/2024 AD HARGROVE DIRECTIVE Health Care Decision (hx) 06/03/2024 AD HARGROVE DIRECTIVE Health Care Decision (hx) 06/03/2024 AD HARGROVE DIRECTIVE * Full Code - Default (Latest Code Status on File) Date Activated Date Inactivated Comments 04/10/2025 3:50 PM 04/14/2025 3:18 PM This is order is used when code status has not been discussed with the patient, or code status is otherwise unknown/unconfirmed To update the patient's code status, place a code status order. Do not modify or discontinue any currently active code status orders. * No CPR/Do Not Intubate Date Activated Date Inactivated Comments 02/05/2025 10:00 [...] currently active code status orders. 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
--- OUTSIDE RECORDS SUMMARY | 2025-04-30 11:00 | XMS_ITS | Patient Health Record ---
Author Organization [facility] Address 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 Name Role Phone Irving Swift MD Primary Care Provider Haroon Hatch Unavailable [phone] Allergies Allergen (clinical drug ingredient) Drug/Non Drug Allergy documented on EMR Reaction Allergy Type Onset Date Status sulfamethoxazole / trimethoprim Bactrim rash Drug Allergy Active IVP dye Unknown Drug Allergy Active Tetracaine-Menthol- Camphor Unknown Drug Allergy Active Reason For Referral No Information Medications Medication SIG (Take, Route, Frequency, Duration) Notes Start Date End Date Status zzzExtra Depth Orthopedic Shoes (1 Pair) with Customized Heat Molded Multidensity Innersoles (3 Pair) . . . Dx: NIDDM/Polyneuropathy (E11.42), Hammertoe Foot Deformity (M20.41,M20.42), Preulcerative Skin Lesion(s) (L85.1); Duration: . 10/18/2015 Active Eucerin . as directed External ly Apply Twice a day to Feet; Duration: 30 days 10/18/2015 Active metFORMIN HCl 500 MG Orally Active Aspirin 81 MG Orally Active Allopurinol 300 MG Orally A ctive Lyrica 45mg Active Fenofibrate 145 MG Orally A ctive Losartan Potassium 100 MG Orally Active Atenolol 50 MG Orally Activ e Atorvastatin Calcium 10 MG Orally Active hydroCHLOROthiazide 25 MG Orally Active Lansoprazole 30 MG Orally A ctive Plavix 75 MG Orally Active Colchicine 0.6 MG Orally Ac tive LORazepam 0.5 MG Orally Act dia Problems No Known Problems Plan Of Treatment Pending Test Test Name Order Date Hemoglobin A1c 10/18/2015 [id number] NAIL, 1-5 10/18/2015 [id number] Plate 10/18/2015 [id number] SKIN LESIONS, OVER 4 10/18/19 16 [id number] DYSTROPHIC NAILS ANY # Insurance Providers Payer Name Payer Address Payer Phone Subscriber Number Group Number Insured Name Patient Relationship to Insured Coverage Start Date Coverage End Date Medicare National [employer] [address] [place] [id number] [id number] Lyssa Mark Anthony Self - patient is the insured [employer] [address] [place] [address] [id number] Lyssa Mark Anthony Self - patient is the insured Medical (General) History Medical History History ICD Code Angina Back,Hip,and Knee pain Cholesterol Cataracts Diabetes mellitus Diverticulosis Gout Heart disease High blood pressure Neuropathy Osteoporosis Poor circulation Surgical History Surgery Date(Month/Year) tonsillectomy 1955 hemorrhoidectomy 1967 hernia 1970 bypass surgery 12/1996 neck surgery 08/1997 angioplasty x2 06/1998 cardiac pacemeker 11/1998 back surgery 04/2003 prostate surgery (shink) 05/2005 colonoscopy 03/2012 Angiogram (no blockage) 11/1999
--- OUTSIDE RECORDS SUMMARY | 2025-04-30 11:01 | XMS_ITS | Data Portability ---
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 Otherwise stable.. follow up in 5 month Audio at his convenience lupe Not available 03/22/2025 13:16:14 Plan of Treatment Reminders Order Date Submit Date Provider Last Modified By Organization Details Last Modified Time Details Appointments Establish ed 30 2024 01:00P M MELVIN GONZALEZ MD Not available Not available Not available Lab unlisted lab - TSH w/reflex 2023 024 FLANDERS [facility] (Centralized Electronic Ordering - All Locations), Patient Can Go To The Location Of Their Choice, [id number] 06/02/2024 21:10:25 Referral None recorded. Procedures None [...] high normal Not Available [facility] ([facility]) [address] [facility], [place], [address], 06/02/2024 21:10:25 05/31/20 24 06/02/2024 TSH W/REF LOLIS triiodothyro nine (T3), free 2.6 pg/mL 2.0-4. 4 Not Available [facility] ([facility]) [address] [place], [address], 06/02/2024 21:10:25 05/31/20 24 06/02/2024 TSH W/REF LOLIS T4,free (direct) 1.07 NG/dL 0.82-1 .77 normal Not Available [facility] ([facility]) [address] [facility], [place], [address], 06/02/2024 21:10:25 05/24/20 24 11/17/2019 imagi ng/di [...] Name and Address Organization Details Recorded Time Long-term current use of antiplate let drug 09717769251 4101 Active 2017 continuous churn buttermaker (current) use of antithrom botics/an tiplatele ts; Note: Date Diagnosed : 04/23/2017 12:51 PM (Z79.02) Not Available [facility] 4 02:46:28 Bleeding from nose 946317110 Active 2017 Epistaxis ; Note: Date Diagnosed : 04/23/2017 12:51 PM (R04.0) Not Available [facility] 4 02:46:21 Dysphonia 19250646 Active 2019 Hoarsenes s; Note: Date Diagnosed : 11/15/2019 1:00 PM (R49.0) Not Available [facility] 4 02:46:18 Disorder of vocal cord 58319632 Active 2019 Other diseases of vocal cords; Note: Date Diagnosed : 11/15/2019 1:00 PM (J38.3) Not Available [facility] 4 02:46:20 Neoplasm of uncertain behavior of larynx 20736439 Active 2019 Neoplasm of uncertain behavior of larynx; Note: Date Diagnosed : 12/19/2019 10:13 AM (D38.0) Not Available [facility] 4 02:46:26 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; Note: Date Diagnosed : 03/04/2020 2:33 PM (C32.0) Not Available [facility] 4 02:46:28 Follow-up visit Active 2019 Encounter for follow-up examinati on after completed treatment for malignant neoplasm; Note: Date Diagnosed : 04/24/2020 8:56 AM (Z08) Not Available [facility] 4 02:46:22 Lymphedem a 300022721 Active 2019 Lymphedem a, not elsewhere classifie d; Note: Date Diagnosed : 04/24/2020 9:00 AM (I89.0) Not Available [facility] 4 02:46:21 History of malignant neoplasm of larynx 543909621 Active 2020 Personal history of malignant neoplasm of larynx; Note: Date Diagnosed : 12/12/2020 12:47 PM (Z85.21) Not Available [facility] 4 02:46:18 Vasomotor rhinitis 2423958 Active 2020 Vasomotor rhinitis; Note: Date Diagnosed : 01/22/2021 11:42 AM (J30.0) Not Available [facility] 4 02:46:22 Pharyngea l dysphagia 93703071943 105 Active 2021 Dysphagia , pharyngea l phase; Note: Date Diagnosed : 03/20/2022 11:46 AM (R13.13) Not Available [facility] 4 02:46:23 Chronic cough 39206528 Active 2021 Chronic cough; Note: Changed from R05 to R05.3 ( 2 11:46 AM) , Date Diagnosed : 03/20/2022 11:46 AM (R05) Not Available [facility] 4 02:46:19 Finding of resonance of voice 662446387 Active 2021 Other voice and resonance disorders ; Note: Date Diagnosed : 03/18/2022 5:46 PM (R49.8) Not Available [facility] 4 02:46:17 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 544345006 Active 2022 Malignant neoplasm of aryepiglo ttic fold NOS; Note: Changed from D38.0 to C13.1 ( 3 12:15 PM) , Date Diagnosed : 02/08/2023 11:22 AM (D38.0) Not Available [facility] 4 02:46:18 Chronic hoarsenes s 22255824393 05 Active 2023 MELVIN QUINN MD [address] [place] [address],[place] [address], [facility] [place], [address] , [facility] - [facility] 4 18:43:13 Edema of larynx following radiother apy 445235991 Active 2023 MELVIN QUINN MD [address] [facility] [[email or web address]] [address], [place], [address] , [facility] - [facility] 4 10:25:49 Abnormal auditory perceptio n 16493915 Active 2023 MELVIN QUINN MD [address] [facility] [place],[facility] [[email or web address]] [address], [place], [address] , [facility] [place] 4 10:26:03 Bilateral tinnitus 49337261709 02 Active 2023 MELVIN QUINN MD [address] [facility],[place] [address], [place], [address] , [facility] - [facility] [place] 4 10:26:07 Oropharyn geal dysphagia 05408029 Active 2023 MELVIN QUINN MD [address] [facility],[place] [address], [place], [address] , [facility] - [facility] 4 10:26:16 Sensorine ural hearing loss of bilateral ears 162402344 Active 2023 COLIN JIMENEZ MA, CCC-A [address] [facility],[place] [address], [place], [address] , [facility] - [facility] [place] 4 11:01:59 Problem Notes None recorded. Procedures Surgical History Date Name Laterality Status Provider Name and Address Organization Details Recorded Time 03/22/20 25 Fiberoptic Laryngoscopy (Comprehensive) completed MELVIN AKERS MD [address] [facility],[place] [address], [place], [address], [facility] - [facility] 03/22/2025 13:14:37 09/21/20 24 Fiberoptic Laryngoscopy (Comprehensive) completed MELVIN AKERS MD [address] [facility] [address],[place], [place], [address], [facility] - [facility] 09/21/2024 11:34:17 05/31/20 24 Fiberoptic Laryngoscopy (Comprehensive) completed MELVIN AKERS MD [address] [facility],[place] [address] [place] [address], [address], [facility] - [facility] 05/30/2024 10:05:32 02/16/20 24 Comp Audio with Tymps - 03678 & 62394 completed COLIN JIMENEZ MA, CCC-A [address],[place] [address] [place] [address], [address], [facility] - [facility] 02/16/2024 11:01:33 02/16/20 24 Fiberoptic Laryngoscopy (Comprehensive) completed MELVIN AKERS MD [address] [facility],[place] [facility], [place], [address], [facility] - [facility] 02/16/2024 10:25:42 02/24/20 23 Laryngoscopy with biopsy completed MELVIN AKERS MD [address] [facility],[place] [address] [place] [address], [address], [facility] - [facility] 02/14/2024 18:47:38 12/19/19 20 Laryngoscopy for treatment completed MELVIN AKERS MD [address] [facility],[place] [address] [place] [address], [address], [facility] - [facility] 02/14/2024 18:47:06 insertion of stent into aorta completed MELVIN AKERS MD [address],[place] [address] [place] [address], [address], [facility] - [facility] 09/21/2024 11:35:38 peripheral arterial bypass completed MELVIN AKERS MD [address] [facility] [place],[address], [address], [facility] - [facility] 09/21/2024 11:35:45 Imaging Results None recorded. Procedure Notes None recorded. Medical Equipment None Reported. Allergies Allergen ID Allergen Name Allergen Category Reaction Reaction Severity Criticality Documentation Date Start Date Code Code System Note Provider Name and Address Organization Details Recorded Time 91139 Bactrim medicatio n other Not available Not available 02/15/2024 97757 9 RxNorm React ion: unkno wn, unspe cifie d;; Not Available [facility] 01:04:16 92663 Substance with tetracycl ine structure (substanc e) medicatio n other Not available Not available 02/15/2024 18966 8001 SNOMED React ion: unkno wn, unspe cifie d;; Not Available [facility] 4 01:04:19 Medications Name Sig Start Date Stop Date Status Note LastModified by Organization Details LastModified Time metformin 500 mg tablet 04/23 completed Medicati on ID: [id number] D uration Value: 90 Brand Name: metformi n Send Method: E-Prescr ibed Sub s Allowed: subs OK Medic ationGen ericName : metformi n Not Available Not Available Not Available atorvasta tin 80 mg tablet TAKE 1 TABLET BY MOUTH DAILY active Not Available Not Available No t Available prednison e 10 mg tablet PLEASE SEE ATTACHED FOR DETAILED DIRECTIO NS 03/22 completed Not Available Not Available Not Available gabapenti n 600 mg tablet 12/18 completed Medicati on ID: [id number] B rand Name: gabapent in Send Method: [...] 24 hr 04/23 completed Medicati on ID: [id number] D uration Value: 30 Brand Name: oxybutyn in chloride Send Method: E-Prescr ibed Sub s Allowed: subs OK Medic ationGen ericName : oxybutyn in chloride Not Available Not Available Not Available atenolol 100 mg tablet 03/22 completed Medicati on ID: [id number] B rand Name: atenolol Send Method: E-Prescr ibed Sub s Allowed: subs OK Medic ationGen ericName : atenolol Not Available Not Available Not Available glipizide ER 10 mg tablet, extended release 24 hr 04/23 completed Medicati on ID: [id number] D uration Value: 90 Brand Name: glipizid e Send Method: E-Prescr ibed Sub s Allowed: subs OK Medic ationGen ericName : glipizid e Not Available Not Available Not Available methylpre dnisolone 32 mg tablet TAKE 1 TABLET 12 HOURS BEFORE MYELOGRA M AND 1 TABLET 2 HOURS BEFORE MYELOGRA M 03/22 completed Not Available Not Available Not Available gabapenti n 400 mg capsule 12/18 completed Medicati on ID: [id number] B rand Name: gabapent in Send Method: E-Prescr ibed Sub s Allowed: subs OK Medic ationGen ericName : gabapent in Not Available Not Available Not Available Zyrtec 10 mg tablet Take 1 tablet by mouth as directed 03/22 completed Medicati on ID: [id number] D uration Value: 1 Brand Name: Zyrtec S end Method: E-Prescr ibed Sub s Allowed: subs OK Speci al Instruct ion: take one tablet by mouth [address] Scan Med icationG enericNa me: Zyrtec Not Available Not Available Not Available clopidogr el 75 mg tablet 12/17 completed Medicati on ID: [id number] D uration Value: 90 Brand Name: clopidog rel Send Method: E-Prescr ibed Sub s Allowed: subs OK Medic ationGen ericName : clopidog rel Not Available Not Available Not Available amlodipin e 5 mg tablet 04/23 completed Medicati on ID: [id number] D uration Value: 90 Brand Name: amlodipi ne Send Method: E-Prescr ibed Sub s Allowed: subs OK Medic ationGen ericName : amlodipi ne Not Available Not Available Not Available ciproflox acin 500 mg tablet TAKE 1 TABLET BY MOUTH TWICE A DAY FOR 7 DAYS 03/22 completed Not Available Not Available Not Available fenofibra te micronize d 200 mg capsule TAKE 1 CAPSULE BY MOUTH EVERY DAY 03/22 completed Not Available Not Available Not Available tramadol 50 mg tablet 04/23 completed Medicati on ID: [id number] D uration Value: 90 Brand Name: tramadol Send Method: E-Prescr ibed Sub s Allowed: subs OK Medic ationGen ericName : tramadol Not Available Not Available Not Available acetamino phen 500 mg tablet TAKE 2 TABLETS BY MOUTH EVERY 6 (SIX) HOURS IF NEEDED FOR MILD PAIN OR MODERATE PAIN. 03/22 completed Not Available Not Available Not Available amoxicill in 875 mg tablet TAKE 1 TABLET BY MOUTH TWICE A DAY FOR 10 DAYS 03/22 completed Not Available Not Available Not Available amitripty line 25 mg tablet TAKE 1 TABLET BY MOUTH EVERYDAY AT BEDTIME 03/22 completed Not Available Not Available Not Available lorazepam 0.5 mg tablet TAKE 1 TABLET BY MOUTH TWICE A DAY active Not Available Not Available No t Available prednison e 1 mg tablet 12/18 completed Medicati on ID: [id number] B rand Name: predniso ne Send Method: E-Prescr ibed Sub s Allowed: subs OK Medic ationGen ericName : predniso ne Not Available Not Available Not Available cephalexi n 500 mg capsule TAKE 1 CAPSULE BY MOUTH FOUR TIMES A DAY FOR 7 DAYS 03/22 completed Not Available Not Available Not Available erythromy blake 5 mg/gram (0.5 %) eye ointment 03/22 completed Not Available Not Available Not Available lansopraz ole 30 mg capsule,d elayed release TAKE 1 CAPSULE BY MOUTH EVERY DAY active Not Available Not Available No t Available prednison e 50 mg tablet 03/22 completed Not Available Not Available Not Available lidocaine 5 % topical patch APPLY 1 PATCH TO THE LOW BACK ONCE DAILY FOR 12 HOURS, THEN REMOVE FOR 12 HOURS. 03/22 completed Not Available Not Available Not Available indometha blake 50 mg capsule TAKE 1 CAPSULE BY MOUTH 3 TIMES A DAY ADMINIST ER WITH FOOD OR MILK 03/22 completed Not Available Not Available Not Available nitroglyc kishan 0.4 mg sublingua l tablet DISSOLVE 1 TABLET UNDER THE TONGUE EVERY 5 MINUTES FOR UP TO 3 DOSES NEEDED FOR CHEST PAIN. CALL 911 IF PAIN PERSISTS active Not Available Not Available No t Available gabapenti n 300 mg capsule TAKE 1 CAPSULE BY MOUTH THREE TIMES DAILY 03/22 completed Not Available Not Available Not Available allopurin ol 300 mg tablet 04/23 completed Medicati on ID: [id number] D uration Value: 90 Brand Name: allopuri nol Send Method: E-Prescr ibed Sub s Allowed: subs OK Medic ationGen ericName : allopuri nol Not Available Not Available Not Available aspirin 81 mg tablet Take 1 tablet every day by oral route. active Not Available Not Available No t Available furosemid e 20 mg tablet TAKE 1 TABLET (20 MG TOTAL) BY MOUTH ONE TIME EACH DAY active Not Available Not Available No t Available ipratropi um bromide 42 mcg (0.06 %) nasal spray 12/18 completed Medicati on ID: [id number] B rand Name: ipratrop ium bromide Send Method: E-Prescr ibed Sub s Allowed: subs OK Medic ationGen ericName : ipratrop ium bromide Not Available Not Available Not Available colchicin e 0.6 mg tablet PLEASE SEE ATTACHED FOR DETAILED DIRECTIO NS 03/22 completed Not Available Not Available Not Available atenolol 50 mg tablet TAKE 1 TABLET BY MOUTH EVERY DAY active Not Available Not Available No t Available amoxicill in 875 mg-potass ium clavulana te 125 mg tablet TAKE 1 TABLET BY MOUTH TWICE DAILY 03/22 completed Not Available Not Available Not Available oxycodone 5 mg tablet TAKE 1 TABLET BY MOUTH EVERY 8 HOURS NEEDED FOR SEVERE PAIN 03/22 completed Not Available Not Available Not Available Benadryl Allergy 25 mg tablet 2 tablet by mouth 03/22 completed Medicati on ID: [id number] D uration Value: 1 Prescri bed By Name: RODERICK Chacon nd Name: Benadryl Allergy Send Method: E-Prescr ibed Sub s Allowed: subs OK Speci al Instruct ion: take 2 tablets [address] scan Med icationG enericNa me: Benadryl Allergy Not Available Not Available Not Available olmesarta n 5 mg tablet 12/18 completed Medicati on ID: [id number] B rand Name: olmesart an Send Method: E-Prescr ibed Sub s Allowed: subs OK Medic ationGen ericName : olmesart an Not Available Not Available Not Available olmesarta n 20 mg tablet 03/22 completed Medicati on ID: [id number] B rand Name: olmesart an Send Method: E-Prescr ibed Sub s Allowed: subs OK Medic ationGen ericName : olmesart an Not Available Not Available Not Available enoxapari n 40 mg/0.4 mL subcutane ous syringe INJECT 0.4ML UNDER THE SKIN ONCE DAILY AT THE SAME TIME EACH DAY 03/22 completed Not Available Not Available Not Available escitalop angie 10 mg tablet 04/23 completed Medicati on ID: [id number] D uration Value: 90 Brand Name: escitalo pram oxalate Send Method: E-Prescr ibed Sub s Allowed: subs OK Medic ationGen ericName : escitalo pram oxalate Not Available Not Available Not Available Novolog FlexPen U-100 Insulin aspart 100 unit/mL (3 mL) subcutane ous 03/22 completed Medicati on ID: [id number] B rand Name: Novolog Flexpen U-100 Insulin Send Method: E-Prescr ibed Sub s Allowed: subs OK Medic ationGen ericName : Novolog Flexpen U-100 Insulin Not Available Not Available Not Available pregabali n 150 mg capsule 03/22 completed Medicati on ID: [id number] B rand Name: pregabal in Send Method: E-Prescr ibed Sub s Allowed: subs OK Medic ationGen ericName : pregabal in Not Available Not Available Not Available Lyrica 75 mg capsule 04/23 completed Medicati on ID: [id number] D uration Value: 90 Brand Name: Lyrica S end Method: E-Prescr ibed Sub s Allowed: subs OK Medic ationGen ericName : Lyrica Not Available Not Available Not Available Levemir FlexPen 100 unit/mL (3 mL) solution subcutane ous insulin pen ADMINIST ER 30 UNITS UNDER THE SKIN DAILY 03/22 completed Not Available Not Available Not Available fenofibra te nanocryst allized 145 mg tablet TAKE 1 TABLET BY MOUTH DAILY active Not Available Not Available No t Available oxycodone 10 mg tablet TAKE 1 TABLET BY MOUTH EVERY 4 HOURS IF NEEDED FOR SEVERE PAIN FOR UP TO 5 DAYS 03/22 completed Not Available Not Available Not Available Nucynta ER 50 mg tablet,ex tended release TAKE 1 TABLET BY MOUTH TWICE A DAY active Not Available Not Available No t Available Banophen 50 mg capsule TAKE 1 CAPSULE BY MOUTH 1 HOUR PRIOR TO CATSCAN 03/22 completed Not Available Not Available Not Available Trulicity 1.5 mg/0.5 mL subcutane ous pen injector 03/22 completed Medicati on ID: [id number] B rand Name: Trulicit y Send Method: E-Prescr ibed Sub s Allowed: subs OK Medic ationGen ericName : Trulicit y Not Available Not Available Not Available Tresiba FlexTouch U-200 insulin 200 unit/mL (3 mL) subcutane ous pen INJECT 20 UNIT (0.1 ML) SUBCUTAN EOUSLY NIGHTLY active Not Available Not Available No t Available BD Ultra-Fin e Micro Pen Needle 32 gauge x 1/4 12/18 completed Medicati on ID: [id number] B rand Name: BD Ultra-Fi ne Micro Pen Needle S end Method: E-Prescr ibed Sub s Allowed: subs OK Medic ationGen ericName : BD Ultra-Fi ne Micro Pen Needle Not Available Not Available Not Available Ozempic 0.25 mg or 0.5 mg (2 mg/1.5 mL) subcutane ous pen injector 03/22 completed Medicati on ID: [id number] B rand Name: Ozempic Send Method: E-Prescr ibed Sub s Allowed: subs OK Medic ationGen ericName : Ozempic Not Available Not Available Not Available rivaroxab an 2.5 mg tablet TAKE 1 TABLET BY MOUTH 2 TIMES A DAY WITH MEALS. 03/22 completed Not Available Not Available Not Available FreeStyle Vivek 2 Sensor kit USE DIRECTED EVERY 14 DAYS active Not Available Not Available No t Available Ozempic 1 mg/dose (4 mg/3 mL) subcutane ous pen injector INJECT 1 MG (0.75 ML) SUBCUTAN EOUSLY WEEKLY 03/22 completed Not Available Not Available Not Available Ozempic 2 mg/dose (8 mg/3 mL) subcutane ous pen injector INJECT 2 MG (0.75 ML) SUBCUTAN EOUSLY EVERY WEEK 03/22 completed Not Available Not Available Not Available Ozempic 0.25 mg or 0.5 mg (2 mg/3 mL) subcutane ous pen injector INJECT 0.5 MG SUBCUTAN EOUSLY EVERY WEEK active Not Available Not Available No t Available Ev 2nd Gen Pen Needle 32 gauge x 5/32 USE DIRECTED ONCE DAILY active Not Available Not Available No t Available Vitals Date Recorded Body weight Body mass index (BMI) Body height Provider Name and Address Organization Details Last Updated DateTime 02/16/2024 11759.29 g 30.1 kg/m2 172.72 cm Malik Joiner [place] [facility] 02/16/2024 10:11:40 Date Recorded Body height Body mass index (BMI) Body weight Provider Name and Address Organization Details Last Updated DateTime 03/22/2025 172.72 cm 28.3 kg/m2 04074.18 g Viri Leonard [facility] 03/22/2025 12:59:01 Date Recorded Body height Body mass index (BMI) Body weight Provider Name and Address Organization Details Last Updated DateTime 05/31/2024 172.72 cm 30.6 kg/m2 23793.07 g Malik Joiner [facility] 05/31/2024 09:57:53 Date Recorded Body height Body mass index (BMI) Body weight Provider Name and Address Organization Details Last Updated DateTime 09/21/2024 172.72 cm 30.4 kg/m2 95389.47 g Malik [facility] 09/21/2024 11:15:52 Social History None recorded. Functional Status Question Answer Note LastModified by Organizat ion Details LastModified Time Do you use any illicit or recreational drugs? No [email or web address] Information not available 02/16/2024 Do you or have you ever used any other forms of tobacco or nicotine? No [email or web address] Information not available 02/16/2024 What is your level of alcohol consumption? None [email or web address] Information not available 02/16/2024 Mental Status None recorded. Family History Nothing Reported. Medical History Condition Response Diabetes Y Hyperlipidemia Y Hypertension Y High Cholesterol Y Past Encounters Encounter ID Performer Location Encounter Start Date Encounter Closed Date Diagnosis/Indication Diagnosis SNOMED-CT Code Diagnosis ICD10 Code Diagnosis Note [id number] MELVIN QUINN MD [facility] [address] [address] 02/16/2024 10:01:00 02/16/2024 11:03:28 Abnormal auditory perception 15709569 H93.299 Bilateral tinnitus 64774 34694 102 H93.13 Oropharyng eal dysphagia 34584344 R13.12 Sensorineu ral hearing loss of bilateral ears 872037618 H90.3 Normal hearing thru 1000Hz sloping to a mild to to severe sensorineu ral hearing loss with excellent speech discrimina tion ability for both ears.Type A tympanogra ms. Declines amplificat ion History of malignant neoplasm of larynx 639907915 Z85.21 Chronic hoarseness 24430 55110 105 R49.0 Edema of l arynx following radiotherapy 218798024 J38.4 [id number] COLIN JIMENEZ MA, CCC-A [facility] [address] [address] 02/16/2024 10:57:00 02/17/2024 22:38:16 Sensorineural hearing loss of bilateral ears 913476920 H90.3 Normal hearing thru 1000Hz sloping to a mild to to severe sensorineu ral hearing loss with excellent speech discrimina tion ability for both ears.Type A tympanogra ms. Bilateral tinnitus 14729 72812 102 H93.13 [id number] MELVIN QUINN MD [facility] [address] [address] 05/31/2024 09:51:42 05/31/2024 10:31:47 History of malignant neoplasm of larynx 617588013 Z85.21 Chronic hoarseness 99299 48865 105 R49.0 Edema of l arynx following radiotherapy 264870353 J38.4 Bilateral tinnitus 09178 67945 102 H93.13 Oropharyng eal dysphagia 26274153 R13.12 Sensorineu ral hearing loss of bilateral ears 450413526 H90.3 [id number] MELVIN QUINN MD [facility] [address] [address] 09/21/2024 10:58:20 09/21/2024 11:41:36 History of malignant neoplasm of larynx 158069666 Z85.21 Chronic hoarseness 72648 83358 105 R49.0 Edema of l arynx following radiotherapy 819147915 J38.4 Bilateral tinnitus 89889 95607 102 H93.13 Oropharyng eal dysphagia 46819209 R13.12 Sensorineu ral hearing loss of bilateral ears 299412713 H90.3 [id number] MELVIN QUINN MD [facility] [address] [address] 03/22/2025 12:49:50 03/22/2025 13:19:06 History of malignant neoplasm of larynx 439153605 Z85.21 Chronic hoarseness 58665 99226 105 R49.0 Edema of l arynx following radiotherapy 598215553 J38.4 Bilateral tinnitus 21868 [id number] 102 H93.13 Oropharyng eal dysphagia [id number] R13.12 Sensorineu ral hearing loss of bilateral ears [id number] H90.3 Health Concerns Section Related Observation LastModified by Organization Detai ls LastModified Time None Recorded Concern Status LastModified by Organization Details LastModified Time None Recorded Advance Directives Directive None Recorded Payers Insurance Date Sequence Insurance Name Policy Number Policy Purcell Covered Member ID Purcell Member ID Guarantor Name 04/02/2025 2 [facility] - [place] (INDEMNITY) [id number] Mark Anthony Omalley [id number] Mark Anthony Omalley 04/02/2025 1 MEDICARE B-UT: [employer]ATIONAL [employer] Mark Anthony Omalley [id number] Mark Anthony Omalley
--- OUTSIDE RECORDS SUMMARY | 2025-04-30 11:01 | XMS_ITS | Patient Health Record ---
Author Organization [facility] Address [facility] [place] [address] Care Team Providers Care Lumber Tallier Name Role Phone Jadyn Daniel Primary Care Provider Reason For Referral No Information Medications Medication SIG (Take, Route, Frequency, Duration) Notes Start Date End Date Status Lansoprazole 30 MG 1 capsule Orally Onc e a day; Duration: 30 day(s) Active Fenofibrate 145 MG 1 tablet with food O rally Once a day; Duration: 30 day(s) Active Myrbetriq 50 MG 1 tablet Orally Once a day; Duration: 30 day(s) Active LORazepam 0.5 MG 1 tablet as needed O rally Once a day Active Lyrica 150 MG 1 capsule Orally Onc e a day Active Norvasc 5 MG 1 tablet Orally Once a day Active Losartan Potassium 100 MG 1 tablet Orall y Once a day Active Nitroglycerin 0.4 MG as directed Sublingual Active Lantus SoloStar 100 UNIT/ML 23 units Sub cutaneous Once a day Active Lipitor 80 MG 1 tablet Orally Once a day; Duration: 30 day(s) Active Atenolol 50 MG 1 tablet Orally Once a day; Duration: 30 day(s) Active glipiZIDE ER 5 MG 1 tablet with food O rally Once a day; Duration: 30 day(s) Active Social History Tobacco Use: Social History Observation Description Date Details (start date - stop date) Former Smoker NA - NA Alcohol Screening: Question Answer Notes Did you have a drink containing alcohol in the p ast year? No Points 0 Interpretation Negative Smoking Question Answer Notes Are you a: former smoker Section Notes: quit smoking 30 yrs ago no d rinking no drugs quit smoking 30 yrs ago no d rinking no drugs Problems Problem Type SNOMED Code ICD Code Onset Dates Problem Status W/U Status Risk Notes Problem Atherosclerotic heart disease of [place] coronary artery without angina pectoris (316015898118469) Atherosclerotic heart disease of [place] coronary artery without angina pectoris (I25.10) Active confirmed Problem Hypertensive heart disease without congestive heart failure (24241792) Hypertensive heart disease without heart failure (I11.9) Active confirmed Problem Atherosclerosis of coronary artery (343238301) 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 calcified coronary lesion (I25.84) Active confirmed Problem Hyperglycemia due to type 2 diabetes mellitus (517792880172401) Type 2 diabetes mellitus with hyperglycemia, without long-term current use of insulin (E11.65) Active confirmed Problem Laryngitis (99284821) Laryngitis (J04.0) Active confirmed Plan Of Treatment No Information Insurance Providers Payer Name Payer Address Payer Phone Subscriber Number Group Number Insured Name Patient Relationship to Insured Coverage Start Date Coverage End Date MEDICARE PART B [address] [address] [place] [address] [phone] [id number] Mark Anthony Omalley Self - patient is the insured [facility] [address] [place] [address] [id number] Mark Anthony Omalley Self - patient is the insured Medical (General) History Medical History History ICD Code diabetes mellitus Coronary Artery Disease. 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
--- OUTSIDE RECORDS SUMMARY | 2025-04-30 11:01 | XMS_ITS | Clinical Summary ---
Author Organization [facility] Address [address] [place] [address] Phone Care Team Providers Care Credit Operations Processor Name Role Phone Mercy Grewal Primary Care Provider [phone] Allergies Active Allergy Reactions Criticality Noted Date Comments Iodinated Contrast Media 07/02/2020 Sulfamethoxazole-Trimethoprim Other (see comments) 12/29/2017 Tetracyclines & Related Other (see comments) Medications aspirin (ST TDE) 81 MG EC tablet Take 1 tablet [...] 12/30/2017 Immunizations Immunization Administration Dates Next Due Pfizer SARS-COV-2 05/20/2021,12/02/2020,11/10/19 21 Pneumococcal Conjugate 13-Valent 01/29/2018,04/2015 Pneumococcal Polysaccharide 07/04/2019 Shingrix 08/03/2018,01/29/2018 Td, Unspecified [...] Maintenance Due Date Last Done Comments Diabetes: Ophthalmology Exam 07/07/2023 Diabetes: Pedal Pulse Checked 07/07/2023 Diabetes: Sensory Foot Exam 07/07/2023 Diabetes: Visual Foot Exam 07/07/2023 Diabetes: Hemoglobin A1C 06/22/2024 03/22/2024 Influenza Vaccine (#1) 2025 2, 08/04/2021 Pneumococcal Vaccine: 50+ Years Completed 07/04/2019, 01/29/2018, 07/10/2015 Pneumococcal Vaccine: Peds ( 0 to 5 Years) and At-Risk Patients (6 to 49 Years) Discontinued 07/04/2019, 01/29/2018, 07/10/2015 Hepatitis B Vaccine Aged Out No longe r eligible based on patient's age to complete this topic [place] [address] [place] [address] Medicare Medicare [facility] Care Teams Credit Operations Processor Relationship Specialty Start Date End Date Mercy Grewal [address] [place] [address] PCP - General 03/03/23
--- OUTSIDE RECORDS SUMMARY | 2025-04-30 11:01 | XMS_ITS ---
Author Name [facility] Organization Unknown Care Team Organization Name Specialty Phone Email Start Date End Da te [facility] Mar Cho Primary Care 12/09/2022 05/22/20 [facility] Bharathi Villarreal Primary Care 08/11/2022
== END 2025-04-30 11:22 | disposition home or self-care (01) ==
LOC: HO.HMCFM 09:59
PROVIDERS: PCP Physician Assistant Medical; Visit Provider Physician Assistant Medical
DX: I12.9 Hypertensive chronic kidney disease with stage 1 through stage 4 chronic kidney disease, or unspecified chronic kidney disease (principal); E11.22 Type 2 diabetes mellitus with diabetic chronic kidney disease; N18.4 Chronic kidney disease, stage 4 (severe); Z79.4 Long term (current) use of insulin; S88.111A Complete traumatic amputation at level between knee and ankle, right lower leg, initial encounter; E78.5 Hyperlipidemia, unspecified; M54.16 Radiculopathy, lumbar region; I25.10 Atherosclerotic heart disease of native coronary artery without angina pectoris; I73.9 Peripheral vascular disease, unspecified; Z95.0 Presence of cardiac pacemaker; C44.90 Unspecified malignant neoplasm of skin, unspecified; D64.9 Anemia, unspecified

== ENCOUNTER → 2025-04-30 09:58 | Outpatient (BNVA) | payer MEDICARE, OTHER, SELFPAY | PROVIDERS: PCP Physician Assistant Medical; Visit Provider Physician Assistant Medical | DX: I12.9 Hypertensive chronic kidney disease with stage 1 through stage 4 chronic kidney disease, or unspecified chronic kidney disease (principal); E11.22 Type 2 diabetes mellitus with diabetic chronic kidney disease; N18.4 Chronic kidney disease, stage 4 (severe); D64.9 Anemia, unspecified; E78.5 Hyperlipidemia, unspecified; M54.16 Radiculopathy, lumbar region; I25.10 Atherosclerotic heart disease of native coronary artery without angina pectoris; I73.9 Peripheral vascular disease, unspecified; Z85.828 Personal history of other malignant neoplasm of skin; Z85.89 Personal history of malignant neoplasm of other organs and systems; Z79.4 Long term (current) use of insulin; Z79.82 Long term (current) use of aspirin; Z79.899 Other long term (current) drug therapy; Z95.0 Presence of cardiac pacemaker; Z95.1 Presence of aortocoronary bypass graft; Z95.5 Presence of coronary angioplasty implant and graft; Z89.511 Acquired absence of right leg below knee | CPT/HCPCS: 99202 ==

== ENCOUNTER 2025-04-30 11:28 | Outpatient (REF) | payer MEDICARE, OTHER, SELFPAY ==
[2025-04-30 15:00] LABS: MANUAL DIFF FLAG NO
[2025-04-30 15:03] LABS: Hematocrit 28.4 % (42.0-52.0); Hemoglobin 8.7 g/dl (14.0-18.0); Imm Gran Abs Auto 0.02 X10*3/uL (0.00-0.03); Imm Gran Pct Auto 0.3 % (0.0-0.4); Lymphocytes Absolute Auto 2.1 X10*3/uL (1.2-4.9); Mean Corpuscular HGB Conc 30.6 g/dl (31.0-36.0); Mean Corpuscular Hemoglobin 33.2 pg (27.0-33.0); Mean Corpuscular Volume 108.4 fL (80.0-98.0); NRBC Abs Auto 0.020 X10*3/uL (0.0-0.012); NRBC Pct Auto 0.3 /100WBC (0.0-0.2); Platelet Count 366 X10*3/uL (160-400); Red Blood Count 2.62 X10*6/uL (4.60-5.80); White Blood Count 7.5 X10*3/uL (4.8-10.8)
[2025-04-30 15:08] LABS: Hemoglobin A1C 89.6301 umol/L; Total Hemoglobin (HGBA1C) 2358.2676 umol/L
[2025-04-30 15:14] LABS: Cholesterol 103 mg/dL (<200); HDL Cholesterol 29 mg/dL (>40); Iron 76 mcg/dL (45-160); Percent Iron Saturation 21 % (15-50); Total Iron Binding Capacity 365 mcg/dL (228-428); Triglycerides 158 mg/dL (<150); Unsaturated Iron Binding 289 ug/dL
[2025-04-30 15:37] LABS: Ferritin 36 ng/mL (20-250)
[2025-04-30 15:53] LABS: Folate 14.2 ng/mL (> or = 4.0); Vitamin B12 994 pg/mL (200-900)
== END 2025-04-30 11:29 | disposition home or self-care (01) ==
LOC: HO.WFDLDS 11:28
PROVIDERS: Physician Assistant; Visit Provider Physician Assistant Medical
DX: I12.9 Hypertensive chronic kidney disease with stage 1 through stage 4 chronic kidney disease, or unspecified chronic kidney disease (principal); E11.22 Type 2 diabetes mellitus with diabetic chronic kidney disease; N18.4 Chronic kidney disease, stage 4 (severe); D63.1 Anemia in chronic kidney disease; E11.42 Type 2 diabetes mellitus with diabetic polyneuropathy; E78.5 Hyperlipidemia, unspecified; Z79.4 Long term (current) use of insulin
CPT/HCPCS: 36415; 80061; 82607; 82728; 82746; 83036; 83540; 85025

== ENCOUNTER 2025-05-01 08:15 | Outpatient (REF) | payer MEDICARE, OTHER, SELFPAY ==
--- OUTSIDE RECORDS SUMMARY | 2025-05-01 09:12 | XMS_ITS | Patient Health Record ---
Author Organization [facility] Address [address] [place] [address] Care Team Providers Care Lead Java Programmer Name Role Phone Jeniffer(inactive) Irving DOLAN Primary Care Provider U Jonas Trotter [phone] Allergies Allergen (clinical drug ingredient) Drug/Non Drug [...] Risk Notes Problem Diverticulosis of colon (finding) (862118117) Diverticulosis of colon (without mention of hemorrhage) (562.10) Active confirmed Problem History of polyp of colon (situation) (858941758) Personal history of colonic polyps (V12.72) Active confirmed Problem Special screenin g for malignant neoplasms, colon (V76.51) Active confirmed Plan Of Treatment Future Test Test Name Order Date COLONOSCOPY 12/01/2011 Insurance Providers Payer Name Payer Address Payer Phone Subscriber Number Group Number Insured Name Patient Relationship to Insured Coverage Start Date Coverage End Date MEDICARE OF [place] [address] [place] [address] [id number] CHERELLE SALAZAR Self - patient is the insured [facility] INDEMNITY [address] [place] [address] [phone] [id number] CHERELLE SALAZAR Self - patient is the insured Medical (General) History Medical History History ICD Code CAD-TN's in 1996 and 2001; multiple cath 's with stents-last time in 2009 Peripheral vascular disease No Diabetes, CVA, lung disease, renal di sease gout HTN hyperlipidemia arthritis back pain colon polyps ischemic colitis as above Surgical History Surgery Date(Month/Year) CABG 1996 Bilateral LE Bypass in 2009 hernia pacemaker back and neck knee
--- OUTSIDE RECORDS SUMMARY | 2025-05-01 09:12 | XMS_ITS | Clinical Summary ---
Author Organization [facility] Address [address] [place] [address] Phone Care Team Providers Care Fermentologist Name Role Phone Jaya Brock MD Primary [...] artery disease of b ypass graft of [place] heart with stable angina pectoris 12/30/2017 Overview [...] Lucero in September before they leave for [place]. Assessment & Plan (05/24/2019 2:01 PM EDT): [...] routine labs prior to his leaving to [place]. Peripheral vascular disease 12/30/2017 Overview (07/28/2018): 09/2010 [...] EDT) SODIUM 145 133 - 146 mmol/L [facility] CHLORIDE 106 96 - 108 mmol/L [facility] POTASSIUM 4.9 3.3 - 5.1 mmol/L [facility] CO2 26 21 - 35 mmol/L [facility] BUN 31(H) 6 - 19 mg/dL [facility] CREATININE 1.60(H) 0.5 - 1.5 mg/dL [facility] GLUCOSE 134(H) 70 - 99 mg/dL [facility] CALCIUM 9.7 8.4 - 10.3 mg/dL [facility] EGFR 40(L) >59 mL/min/1.7 3m2 [facility] Comment:Estimated glomerular filtration rate calculated using the CKD-EPI equation. ANION GAP 18 10 - 20 mmol/L [facility] Blood 05/01/2020 3:53 PM EDT 05/01/2020 3:55 PM EDT us Jean Lucero MD LAB BLOOD ORDERABLES Final Resu lt [facility] [address] [place], [place] [phone] from Last 3 Months or Most Recently Relevant to Health Maintenance Insurance MEDICARE PART A & B [employer] MED[employer]ARE SUPPLEMENT MEDICARE PART A & B [employer] MEDICARE SUPPLEMENT MEDICARE PART A & B [facility] MEDICARE SUPPLEMENT MEDICARE PART A & B [facility] [place] [address] MEDICARE PART A & B [facility] [place] [address] MEDICARE PART A & B Member Subscriber Plan / Payer ( fective 2002-Present) Name:Mark Anthony Omalley Member ID:[id number] Relation to Subscriber:Self Name:Mark Anthony Omalley Subscriber ID:[id number] Payer ID:[id number] Group ID:Not on file Type:Medicare Address: [employer] [address] [employer] MEDICARE SUPPLEMENT MEDICARE PART A & B [employer] MEDIC[employer] SUPPLEMENT MEDICARE PART A & B [employer] [place] [address] MEDICARE PART A & B [employer] MED[employer]ARE SUPPLEMENT Care Teams Fermentologist Relationship Specialty Start Date End Date Jaya Brock MD [address] [place] [address] PCP - General 09/07/19 Additional Source Comments The information contained in this document represents components of the legal health record. It is not the complete legal health record.[facility]
--- OUTSIDE RECORDS SUMMARY | 2025-05-01 09:12 | XMS_ITS | Patient Health Record ---
[facility] Address [address] [facility] [place], [place] [address] Care Team Providers Care Creative Lead Name Role Phone Irving Swift MD Primary Care Provider Haroon Hatch Unavailable [phone] Allergies Allergen (clinical drug ingredient) Drug/Non Drug [...] Test Name Order Date Hemoglobin A1c 10/18/2015 [id number] NAIL, 1-5 10/18/2015 [id number] Plate 10/18/2015 [id number] SKIN LESIONS, OVER 4 10/18/19 16 [id number] DYSTROPHIC NAILS ANY # Insurance Providers Payer Name Payer Address Payer Phone Subscriber Number Group Number Insured Name Patient Relationship to Insured Coverage Start Date Coverage End Date Medicare [employer] [address] [place] [id number] [phone] [id number] Lyssa Mark Anthony Self - patient is the insured [employer] [address] [place] [address] [phone] [id number] Lyssa Mark Anthony Self - patient [...]
--- OUTSIDE RECORDS SUMMARY | 2025-05-01 09:12 | XMS_ITS | Patient Health Record ---
Author Organization [facility] Address [facility] [place] [address] Care Team Providers Care Wearing Apparel Shaker Name Role Phone Jadyn Daniel Primary Care [...] Risk Notes Problem Atherosclerotic heart disease of [place] coronary artery without angina pectoris (237350018875482) Atherosclerotic heart disease of [place] coronary artery without angina pectoris (I25.10) Active confirmed Problem Hypertensive heart disease without congestive heart failure (95628560) Hypertensive heart disease without heart failure (I11.9) Active confirmed Problem Atherosclerosis of coronary artery (574675939) 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 calcified coronary lesion (I25.84) Active confirmed Problem Hyperglycemia due to type 2 diabetes mellitus (695518565323203) Type 2 diabetes mellitus with hyperglycemia, without long-term current use of insulin (E11.65) Active confirmed Problem Laryngitis (74474285) Laryngitis (J04.0) Active confirmed Plan Of Treatment No Information Insurance Providers Payer Name Payer Address Payer Phone Subscriber Number Group Number Insured Name Patient Relationship to Insured Coverage Start Date Coverage End Date MEDICARE PART B [address] [address] [place] [address] [id number] Mark Anthony Omalley Self - patient is the insured [facility] [address] [place] [address] [id number] Mark Anthony Omalley Self - patient is the insured Medical (General) History Medical History History ICD Code diabetes mellitus Coronary Artery Disease. 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
--- OUTSIDE RECORDS SUMMARY | 2025-05-01 09:12 | XMS_ITS | Clinical Summary ---
Author Organization [address] [place] [address] [place] [phone] Phone Care Team Providers Care Nurses Director Name Role Phone Diana Corona Primary Care Provider [phone] Allergies Active Allergy Reactions Criticality Noted Date [...] day. 09/21/20 Active flash glucose scanning reader ([employer] 2 [place]) misc 1 Product by Does not apply [...] s:Infrarenal abdominal aortic aneurysm (AAA) without rupture ([facility] V24),Occlusion of arterial bypass graft, subsequent encounter Take 1 tablet (2.5 mg total) by mouth 2 (two) times a day with meals. 60 tablet 01/11/20 25 025 Discontinu ed(Stop Taking at Discharge) oxyCODONE (ROXICODONE) 5 mg immediate release tabletIndication s:Critical limb ischemia of right lower extremity ([facility] V24, [facility] V28) Take 1 tablet (5 mg total) by mouth every 6 (six) hours if needed for severe pain. Max Daily Amount: 20 mg 20 tablet 01/20/20 25 025 Discontinu ed(Stop Taking at Discharge) oxyCODONE (ROXICODONE) 5 mg immediate release tabletIndication s:Gangrene of toe of right foot ([facility] V24, [facility] V28),Ischemic leg Take 2 tablets (10 mg [...] Pacemaker 04/11/2025 Chronic obstructive pulmonar y disease ([facility] V24, [facility] V28) 04/11/2025 Gangrene of toe of right foot ([facility] V24, [facility] V28) 02/05/2025 Occlusion of arterial bypass graft ([facility] V24) 10/26/2024 Acute deep vein thrombosis ( DVT) of femoral vein of right lower extremity ([facility] V24, [facility] V28) 10/26/2024 Diabetic neuritis ([facility] V24, [facility] V28) Hypertension 08/29/2024 Lumbar spondylosis 09/22/2022 Overview (08/29/2024): Last Assessment & Plan: Mr. Omalley underwent bilateral radiofrequency ablation on 10/08/2022 at [facility] with some improvement lasting 1 month. [...] Bacterial pneumonia 04/21/2022 CHF (congestive heart failure) ([facility], [facility] V28) 04/21/2022 Gastrointestinal hemorrhage 04/21/2022 Neuropathy 04/21/2022 SSS (sick sinus syndrome) ([facility], [facility] V28) 04/21/2022 Overview (08/29/2024): Last Assessment & Plan: This is been stable. He is status post pacemaker generator replacement as he was end-of-life. This is working well. He is feeling better now that his heart rates are in the higher range. Acute hypoxemic respiratory failure ([facility] V24, [facility]) 04/21/2022 Heart block AV complete ([facility], [facility] V2 8) 04/01/2022 AAA (abdominal aortic aneurysm) ([facility]) Overview (08/29/2024): Last Assessment & Plan: He had a repeat echo done recently. This showed no changes when compared to before. He has been followed by vascular surgery. Malignant neoplasm of right vocal cord ([facility] V24, [facility] V28) 11/06/2020 CKD (chronic kidney disease) stage 3, GFR 30-59 ml/min ([facility], [facility] V28) 11/06/2020 Anxiety 08/09/2020 BPH (benign prostatic hyperplasia) 08/09/2020 Coronary artery disease invo lving [place] heart without angina pectoris 08/09/2020 Overview (08/29/2024): [...] lifestyle choices and diet. Peripheral vascular disease ([facility] V24) 2019 Overview (08/29/2024): Last Assessment & Plan: This is stable. Again this is being followed by Dr. Banks. He states that he will be getting a lower extremity arterial study done in the next couple weeks. ST elevation myocardial infa rction (STEMI) ([facility] V24, [facility] V28) 08/09/2020 Overview (08/29/2024): Last Assessment & [...] low cholesterol diet and exercise. 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 ([facility] V24, [facility] V28) 08/09/2020 Type 2 diabetes mellitus wit h renal manifestations ([facility], [facility] V28) 08/09/2020 Resolved Problems Problem Noted Date Diagnosed Date Resolved Date Ischemic leg 01/08/2025 04/13/2025 Critical limb ischemia of ri ght lower extremity ([facility] V24, [facility] V28) 01/08/2025 Epistaxis 10/28/2024 10/28/2024 Encounters Date Type Department Care Team Description 04/24/2025 Lab Requisition [facility] - Main Lab [address] [facility] [place] [address] Reyna Ford PA Unspecified atrial fibrillation (CMS/HCC V24, CMS/HCC V28) 04/23/2025 Lab Requisition [facility] Lab [address] [place] [address] Rikki Rosen Encounter for other general examination 04/22/2025 Lab Requisition [facility] [address] [place] [phone] Frances Meléndez PA Encounter for other general examination 04/21/2025 Lab Requisition [facility] [address] [place] [phone] Frances Meléndez PA Encounter for other general examination 04/19/2025 Lab Requisition [facility] [address] [place] [address] Rikki Rosen Encounter for other general examination 04/16/2025 Lab Requisition [facility] [address] [place] [phone] Rikki Rosen Encounter for other general examination 04/15/2025 Lab Requisition [facility] [address] [place] [phone] Frances Meléndez PA Encounter for other general examination 04/11/2025 3:36 PM EDT Anesthesia Event [facility] OR [address] [place] [phone] Nathan Lucio DO Kriz, Petra, MD 04/11/2025 3:35 PM EDT - 04/11/2025 5:05 PM EDT Surgery [facility] OR [address] [place] [phone] Ahmet Banks MD RIGHT BELOW KNEE AMPUTATION 04/10/2025 12:30 PM EDT - 04/14/2025 1:09 PM EDT Hospital Encounter [facility] [address] [place] [phone] Ju Valdez MD Kokosadze, Estate, MD Swelling (Primary Dx); Femoral-popliteal bypass graft occlusion, initial encounter ([facility] V24); 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 ([facility] V24[facility] V28); Ischemic leg Discharge Disposition: [facility] 04/10/2025 11:30 AM EDT Office Visit Vascular Surgery [facility] [address] [facility] [address] [place] [address] Andie Chua PA PAD (peripheral artery disease) ([facility] V24) (Primary Dx); Infrarenal abdominal aortic aneurysm (AAA) without rupture ([facility] V24); History of amputation of fourth toe ([facility] V24); Critical limb ischemia of right lower extremity ([facility] V24, [facility] V28) 04/10/2025 Telephone Vascular Surgery [facility] [address] [facility] [address] [place] [phone] Andie Chua PA Provider Call Back 02/27/2025 8:30 AM EDT Office Visit Vascular Surgery [address] [place] [address] Andie Chua PA PAD (peripheral artery disease) ([facility] V24) (Primary Dx); Infrarenal abdominal aortic aneurysm (AAA) without rupture ([facility] V24); History of amputation of fourth toe ([facility] V24) 02/21/2025 7:25 PM EDT Ancillary Procedure [facility] - [facility] [address] [facility] [address] [place] [address] 02/07/2025 1:22 PM EDT Anesthesia Event [facility] Main OR [address] [place] [phone] Kinjal Katz MD Millay, Julia, CRNA 02/07/2025 12:30 PM EDT - 02/07/2025 1:45 PM EDT Surgery [facility] Main OR [address] [place] [phone] Ahmet Banks MD INCISION DRAINAGE RIGHT FOOT 4TH MTP BONE CORTEX, WASHOUT AND WOUND CLOSURE & RIGHT FOOT SUTURE REMOVAL 02/06/2025 1:00 PM EDT - 02/06/2025 2:15 PM EDT Surgery [facility] OR [address] [place] [phone] Ahmet Banks MD RIGHT 4TH TOE OPEN AMPUTATION, REMOVAL SUTURE RIGHT INNER THIGH 02/06/2025 9:42 AM EDT Anesthesia Event [facility] OR [address] [place] [phone] Ezekiel Hudson MD Kriz, Petra, MD 02/05/2025 2:26 PM EDT - 02/09/2025 5:33 PM EDT Hospital Encounter [facility] [address] [place] [phone] Ju Valdez MD Surendran, Anupama, MD Zipagan, James T, MD Gangrene of toe of right foot ([facility] V24, [facility] V28) (Primary Dx); Gangrene ([facility] V24, [facility] V28); Osteomyelitis of fourth toe of right foot ([facility] V24, [facility] V28); Ischemic leg Discharge Disposition: Home-Health Care [facility] 02/05/2025 1:15 PM EDT Office Visit Vascular Surgery - [place] [address] [place] [phone] Ahmet Banks MD Critical limb ischemia of right lower extremity with ulceration of foot ([facility] V24, [facility] V28) (Primary Dx); PAD (peripheral artery disease) ([facility] V24); Infrarenal abdominal aortic aneurysm (AAA) without rupture ([facility] V24) from Last 3 Months Immunizations Name [...] Site/Laterality Comments KNEE ARTHROSCOPY 2009 Right PROCEDURE: NJ ARTHROSCOPY KNEE DIAGNOSTIC W/WO SYNOVIAL BX SPX; COMMENT: Meniscus TURP / TRANSURETHRAL INCISIO N / DRAINAGE PROSTATE 2004 PROCEDURE: HISTORICAL TURP OTHER SURGICAL HISTORY PROCEDURE: NJ DUP-SCAN LXTR ART/ARTL BPGS UNI/LMTD STUDY; COMMENT: Angioplasty and stenting of the left leg PACEMAKER IMPLANT PROCEDURE: HISTORICAL PACEMAKER COLONOSCOPY 2011 PROCEDURE: HISTORICAL COLONOSCOPY OTHER SURGICAL HISTORY PROCEDURE: NJ BIOPSY OROPHARYNX; COMMENT: Throat cancer had radiation x6 weeks [facility] EYE SURGERY PROCEDURE: HISTORICAL EYE SURGERY; COMMENT: P[place] TONSILLECTOMY PROCEDURE: HISTORICAL TONSILLECTOMY OTHER SURGICAL HISTORY PROCEDURE: ---- HEMORRHOIDS ---- HERNIA REPAIR Bilateral PROCEDURE: REPAIR INGUINAL HERNIA CORONARY ARTERY BYPASS GRAFT 1996 PROCEDURE: HISTORICAL CABG; COMMENT: x4 NECK SURGERY PROCEDURE: HISTORICAL NECK SURGERY CARPAL TUNNEL RELEASE Right PROCEDURE: NJ NEUROPLASTY &/TRANSPOS MEDIAN NRV CARPAL TUNNE; COMMENT: dr. cazares BACK SURGERY 10/08/2022 Bilateral PROCEDURE: HISTORICAL BACK SURGERY; COMMENT: Bilateral L3, L4 and L5 radiofrequency neurotomy Dr. Sahu OTHER SURGICAL HISTORY 06/15/2023 PROCEDURE: NJ SLCTV CATHJ 3RD+ ORD SLCTV ABDL PEL/LXTR BRNCH OTHER SURGICAL HISTORY 06/15/2023 PROCEDURE: NJ SLCTV CATHJ EA 2ND+ ORD ABDL PEL/LXTR ART BRNCH OTHER SURGICAL HISTORY 06/15/2023 PROCEDURE: X-RAY EXAM OF ARM/LEG ARTERY OTHER SURGICAL HISTORY 06/15/2023 PROCEDURE: ULTRASOUND GUIDANCE FOR VASCULAR AC OTHER SURGICAL HISTORY 06/01/2024 PROCEDURE: NJ EVASC RPR DPLMNT ATMFW-LG-AVPXO NDGFT OTHER SURGICAL HISTORY 06/01/2024 PROCEDURE: NJ OPN ILIAC ART EXPOS PROSTH/ILIAC OCCLS EVASC UNI OTHER SURGICAL HISTORY 06/01/2024 PROCEDURE: NJ PERQ ACCESS & CLOSURE FEM ART FOR DELIVERY NDGFT OTHER SURGICAL HISTORY 06/01/2024 PROCEDURE: NJ REVASC INTRAVASC LITHOTRIPSY OTHER SURGICAL HISTORY 06/28/2024 Left PROCEDURE: NJ BYP OTH/THN VEIN FEM-ANT TIBL PST TIBL/PRONEAL Medical History Medical History Date Comments 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 ([facility]) 08/09/2020 DX:Type 2 diabetes mellitus with neurological manifestation ([facility]) CKD (chronic kidney disease) stage 3, GFR 30-59 ml/min ([facility] V24, [facility]) 11/06/2020 DX:CKD (chronic kidney disea se) stage 3, GFR 30-59 ml/min ([facility]) Type 2 diabetes mellitus wit h renal manifestations ([facility], [facility]) 08/09/2020 DX:Type 2 diabetes mellitus with renal manifestations ([facility]) CAD (coronary artery disease) 08/09/2020 DX :CAD (coronary artery disease); COMMENT: Multiple stenting procedures x 5. Pacemaker 08/09/2020 DX:Pacemaker ST elevation myocardial infa rction (STEMI) ([facility], [facility]) 08/09/2020 DX:ST elevation hesham cardial infarction (STEMI) ([facility]) Throat cancer ([facility], [facility]) 08/09/2020 DX:Throat cancer ([facility]); COMM ENT: 2020: received RT Hyperlipidemia 08/09/2020 DX:Hyperlipidemi a HTN (hypertension) 08/09/2020 DX:HTN (hyper tension) History of diverticulitis 08/09/2020 DX:His tory of diverticulitis Peripheral vascular disease ([facility]) 08/09/2020 DX:Peripheral vascular disea se ([facility]) Diabetic neuritis ([facility], [facility]) 08/09/2020 DX:Diabetic neuritis ([facility]) Gastroesophageal reflux dise ase without esophagitis 08/09/2020 DX:Gastroesophageal reflux d isease without esophagitis Anxiety 08/09/2020 DX:Anxiety Malignant neoplasm of right vocal cord ([facility], [facility]) 11/06/2020 DX:Malignant neoplasm of ri ght vocal cord ([facility]) 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) [...] PM EDT Office Visit Vascular Surgery - [place] [address] [place] [phone] Kinsey Boykin MD [address] [place] [address] 05/24/2025 11:00 AM EDT Ancillary Procedure [facility] - [facility] [address] [facility] [address] [place] [address] 05/24/2025 12:00 PM EDT Ancillary Procedure [facility] - [facility] [address] [place] [address] 06/25/2025 11:00 AM EDT Office Visit Vascular Surgery - [place] [address] [place] [address] Ahmet Banks MD [address] [place] [address] Health Maintenance Due Date Last Done Comments [...] this topic Medical Devices Implanted Type Area Building Architectural Designer Device Identifier Shelf Expiration Date Model / Serial / Lot Medt-Card [place] Xt Dr Artis [id number] Implanted: (Quantity not on file) Cardiac Pacemaker [employer] - CARDIAC RHYTH-CRDM KENDELL XT DR ARTIS [id number] / [id number] / Hemostat Absorb Surgicel 2x4in Fibrillar - Sn/A - [id number] Implanted:Qty : 1 on 01/17/2025 by Ahmet Banks MD at [facility] Hemostasis Right: Leg [employer] 07/03/2027 1962 / N/A / [id number] Sealant Fibrin Vistaseal 4ml - [id number] - [id number] Implanted:Qty : 1 on 01/17/2025 by Ahmet Banks MD at [facility] Hemostasis Right: Leg J [employer] [id number] 07/18/2026 [id number] / [id number] / [id number] Hemostat Absorb 1x2 Surgicel Fibrillar - Sn/A - [id number] Implanted:Qty : 1 on 02/07/2025 by Ahmet Banks MD at [facility] Hemostasis Right: Foot JNJ [employer] 07/03/2026 1961 / N/A / [id number] Vein Saphns 50-59cm A B Ab O Blood Type - [id number] - [id number] Implanted:Qty : 1 on 01/17/2025 by Ahmet Banks MD at [facility] [employer] Right: Leg [employer] 04/05/2029 [id number] / [id number] / [id number] Patch Biol Xenosure .8x8cm - Sn/A - [id number] Implanted:Qty : 1 on 01/17/2025 by Ahmet Banks MD at [facility] Vascular Grafts Right: Leg [employer] 12/29/2029 E0.8P8 / N/A / [id number] Procedures Procedure Name Priority Date/Time Associated [...] 2 diabetes mellitus with peripheral vascular disease (CMS/[facility] V24, CMS/[facility] V28) TH AN LMA(NO CHARGE) Routine 04/11/2025 3:48 PM EDT AMPUTATION BELOW KNEE 04/11/2025 3:35 PM EDT 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 (CMS/HCC V24, CMS/[facility] V28) POCT GLUCOSE BLOOD Routine 04/11/2025 3: [...] (ABNORMAL) Vitamin B12 (04/24/2025 6:02 AM EDT) [facility] Vitamin B-12 1,498(H) 250 - 900 pcg/mL LAB CHEMISTRY METHOD 04/24/2025 12:00 PM EDT [facility] Blood Venous blood specimen / Unknown Venipuncture / Unknown 04/24/2025 6:02 AM EDT 04/24/2025 10:02 AM EDT us Reyna CHACON LAB BLOOD ORDERABLES Final Re sult [facility] [address] [place] [address], [place] [phone] * (ABNORMAL) Complete blood count (04/23/2025 6:20 AM EDT) Only the most recent of5 resultswithin the time period is included. [facility] WBC 7.8 4.8 - 10.8 K/mcL LAB HEMETOLOGY METHOD 04/23/2025 12:36 PM T [facility] RBC 2.30(L) 4.50 - 5.50 M/mcL LAB HEMETOLOGY METHOD 04/23/2025 12:36 PM [facility] Hemoglobin 7.7(L) 13.5 - 17.5 g/dL LAB HEMETOLOGY METHOD 04/23/2025 12:36 PM [facility] Hematocrit 25.3(L) 42.0 - 54.0 % LAB HEMETOLOGY METHOD 04/23/2025 12:36 PM [facility] MCV 108.6(H) 79.0 - 98.0 FL LAB HEMETOLOGY METHOD 04/23/2025 12:36 PM [facility] MCH 33.0(H) 27.0 - 32.0 pcg LAB HEMETOLOGY METHOD 04/23/2025 12:36 PM [facility] MCHC 30.4(L) 32.0 - 37.0 g/dL LAB HEMETOLOGY METHOD 04/23/2025 12:36 PM [facility] RDW 17.2(H) 11.0 - 15.0 % LAB HEMETOLOGY METHOD 04/23/2025 12:36 PM [facility] Platelets 360 130 - 400 K/mcL LAB HEMETOLOGY METHOD 04/23/2025 12:36 PM [facility] MPV 9.8 7.0 - 11.0 FL LAB HEMETOLOGY METHOD 04/23/2025 12:36 PM [facility] NRBC 0.0 <1.0 % LAB HEMETOLOGY METHOD 04/23/2025 12:36 PM [facility] NRBC Absolute 0.00 <0.10 K/mcL LAB HEMETOLOGY METHOD 04/23/2025 12:36 PM [facility] Blood Venous blood specimen / Unknown Venipuncture / Unknown 04/23/2025 6:20 AM EDT 04/23/2025 10:31 AM EDT us Rikki Rosen LAB BLOOD ORDERABLES Final Resu lt [facility] [address] [place] [address], [place] [phone] * (ABNORMAL) Basic metabolic panel (04/23/2025 6:20 AM EDT) Only the most recent of11 resultswithin the time period is included. Sodium 138 133 - 145 mmol/L LAB CHEMISTRY METHOD 04/23/2025 2:56 PM [facility] Potassium 4.3 3.5 - 5.5 mmol/L LAB CHEMISTRY METHOD 04/23/2025 2:56 PM [facility] Chloride 105 96 - 110 mmol/L LAB CHEMISTRY METHOD 04/23/2025 2:56 PM [facility] CO2 25 21 - 32 mmol/L LAB CHEMISTRY METHOD 04/23/2025 2:56 PM [facility] Anion Gap 8 3 - 11 LAB CHEMISTRY METHOD 04/23/2025 2:56 PM [facility] Glucose 95 70 - 100 mg/dL LAB CHEMISTRY METHOD 04/23/2025 2:56 PM [facility] BUN 36(H) 5 - 25 mg/dL LAB CHEMISTRY METHOD 04/23/2025 2:56 PM [facility] Creatinine 1.68(H) 0.70 - 1.30 mg/dL LAB CHEMISTRY METHOD 04/23/2025 2:56 PM [facility] eGFR 40(L) >=60 mL/min/1. 73m2 LAB CHEMISTRY METHOD 04/23/2025 2:56 PM [facility] Comment:Calculation based on the Chronic Kidney Disease Epidemiology Collaboration (CKD-EPI) equation refit without adjustment for race. BUN/Creatinine Ratio 21.4 LAB CHEMISTRY METHOD 04/23/2025 2:56 PM EDT [facility] Calcium 8.7 8.5 - 10.5 mg/dL LAB CHEMISTRY METHOD 04/23/2025 2:56 PM EDT [facility] Blood Venous blood specimen / Unknown Venipuncture / Unknown 04/23/2025 6:20 AM EDT 04/23/2025 10:31 AM EDT us Rikki Rosen LAB BLOOD ORDERABLES Final Resu lt Performing Organization Address [facility]/ZIP Co de Phone Number [facility] [address] [place] [address], [place] [phone] * (ABNORMAL) Iron and TIBC (04/21/2025 5:38 AM EDT) Iron 75 50 - 160 mcg/dL LAB CHEMISTRY METHOD 04/21/2025 11:20 AM EDT [facility] TIBC 385 250 - 450 mcg/dL LAB CHEMISTRY METHOD 04/21/2025 11:20 AM EDT [facility] Iron Saturation 19(L) 20 - 50 % LAB CHEMISTRY METHOD 04/21/2025 11:20 AM EDT [facility] Blood Venous blood specimen / Unknown Venipuncture / Unknown 04/21/2025 5:38 AM EDT 04/21/2025 9:48 AM EDT Frances CHACON LAB BLOOD ORDERABLES Final Resul t Performing Organization Address [facility]/ZIP Co de Phone Number [facility] [address] [place] [address], [place] [phone] * Type and screen (04/19/2025 6:03 AM EDT) Only the most recent of2 resultswithin the time period is included. Pathologist [facility] ABO Group O 04/19/2025 11:25 AM EDT [facility] Rh Type Positive 04/19/2025 11:25 AM EDT [facility] Antibody Screen Negative 04/19/2025 11:25 AM EDT [facility] Blood Venous blood specimen / Unknown Venipuncture / Unknown 04/19/2025 6:03 AM EDT 04/19/2025 9:58 AM EDT us Toro Fernandez MD LAB BLOOD BANK TEST ORDERABLES Final Result [facility] [address] [place] [address], [place] [phone] * (ABNORMAL) CBC auto differential (04/16/2025 6:10 AM EDT) Only the most recent of9 resultswithin the time period is included. Pathologist [facility] WBC 7.1 4.8 - 10.8 K/mcL LAB HEMETOLOGY METHOD [facility] RBC 2.20(L) 4.50 - 5.50 M/mcL LAB HEMETOLOGY METHOD 04/16/2025 12:45 PM [facility] Hemoglobin 7.2(L) 13.5 - 17.5 g/dL LAB HEMETOLOGY METHOD 04/16/2025 12:45 PM EDT [facility] Hematocrit 23.2(L) 42.0 - 54.0 % LAB HEMETOLOGY METHOD 04/16/2025 12:[facility] MCV 105.9(H) 79.0 - 98.0 FL LAB HEMETOLOGY METHOD 04/16/2025 12:45 PM [facility] MCH 32.9(H) 27.0 - 32.0 pcg LAB HEMETOLOGY METHOD 04/16/2025 12:45 PM EDT [facility] MCHC 31.0(L) 32.0 - 37.0 g/dL LAB HEMETOLOGY METHOD 04/16/2025 12:45 PM [facility] RDW 15.7(H) 11.0 - 15.0 % LAB HEMETOLOGY METHOD 04/16/2025 12:45 PM EDT [facility] Platelets 198 130 - 400 K/mcL LAB HEMETOLOGY METHOD 04/16/2025 12:45 PM [facility] MPV 10.7 7.0 - 11.0 FL LAB HEMETOLOGY METHOD 04/16/2025 12:45 PM [facility] NRBC 0.0 <1.0 % LAB HEMETOLOGY METHOD 04/16/2025 12:45 PM [facility] NRBC Absolute 0.00 <0.10 K/mcL LAB HEMETOLOGY METHOD 04/16/2025 12:45 PM [facility] Neutrophils Relative 55.2 % LAB HEMETOLOGY METHOD 04/16/2025 12:45 PM [facility] Lymphocytes Relative 23.4 % LAB HEMETOLOGY METHOD 04/16/2025 12:45 PM [facility] Monocytes Relative 13.6 % LAB HEMETOLOGY METHOD 04/16/2025 12:45 PM [facility] Eosinophils Relative 6.9 % LAB HEMETOLOGY METHOD 04/16/2025 12:45 PM [facility] Basophils Relative 0.6 % LAB HEMETOLOGY METHOD 04/16/2025 12:45 PM [facility] Immature Granulocytes Relative 0.3 % LAB HEMETOLOGY METHOD 04/16/2025 12:45 PM [facility] Neutrophils Absolute 3.95 1.50 - 7.00 K/mcL LAB HEMETOLOGY METHOD 04/16/2025 12:45 PM EDT [facility] Lymphocytes Absolute 1.67 1.00 - 5.00 K/[facility] LAB HEMETOLOGY METHOD 04/16/2025 12:45 PM EDT [facility] Monocytes Absolute 0.97 0.20 - 1.00 K/[facility] LAB HEMETOLOGY METHOD 04/16/2025 12:45 PM EDT [facility] Eosinophils Absolute 0.49 0.00 - 0.50 K/[facility] LAB HEMETOLOGY METHOD 04/16/2025 12:45 PM EDT [facility] Basophils Absolute 0.04 0.00 - 0.20 K/[facility] LAB HEMETOLOGY METHOD 04/16/2025 12:45 PM EDT [facility] Immature Granulocytes Absolute 0.02 0.00 - 0.03 K/[facility] LAB HEMETOLOGY METHOD 04/16/2025 12:45 PM EDT [facility] Blood Venous blood specimen / Unknown Venipuncture / Unknown 04/16/2025 6:10 AM EDT 04/16/2025 10:48 AM EDT Rikki Rosen LAB BLOOD ORDERABLES Final Resu lt [facility] [address] [place] [address], * Magnesium (04/15/2025 6:42 AM EDT) Magnesium 2.2 1.9 - 2.6 mg/dL LAB CHEMISTRY METHOD 04/15/2025 1:13 PM EDT [facility] Blood Venous blood specimen / Unknown Venipuncture / Unknown 04/15/2025 6:42 AM EDT 04/15/2025 12:05 PM EDT Frances CHACON LAB BLOOD ORDERABLES Final Resul t [facility] [address] [place] [address], * (ABNORMAL) Comprehensive metabolic panel (04/15/2025 6:42 AM EDT) Sodium 138 133 - 145 mmol/L LAB CHEMISTRY METHOD 04/15/2025 1:24 PM EDT [facility] Potassium 4.2 3.5 - 5.5 mmol/L LAB CHEMISTRY METHOD 04/15/2025 1:24 PM [facility] Chloride 107 96 - 110 mmol/L LAB CHEMISTRY METHOD 04/15/2025 1:24 PM [facility] CO2 26 21 - 32 mmol/L LAB CHEMISTRY METHOD 04/15/2025 1:24 PM [facility] Anion Gap 5 3 - 11 LAB CHEMISTRY METHOD 04/15/2025 1:24 PM [facility] Glucose 115(H) 70 - 100 mg/dL LAB CHEMISTRY METHOD 04/15/2025 1:24 PM [facility] BUN 28(H) 5 - 25 mg/dL LAB CHEMISTRY METHOD 04/15/2025 1:24 PM [facility] Creatinine 1.49(H) 0.70 - 1.30 mg/dL LAB CHEMISTRY METHOD 04/15[facility]2025 [facility] eGFR 46(L) >=60 mL/min/1. 73m2 LAB CHEMISTRY METHOD 04/15/2025 1:24 PM [facility] Comment:Calculation based on the Chronic Kidney Disease Epidemiology Collaboration (CKD-EPI) equation refit without adjustment for race. BUN/Creatinine Ratio 18.8 LAB CHEMISTRY METHOD 04/15/2025 1:24 PM [facility] Calcium 8.6 8.5 - 10.5 mg/dL LAB CHEMISTRY METHOD 04/15/2025 1:24 PM EDT [facility] AST (SGOT) 60(H) 10 - 42 unit/L LAB CHEMISTRY METHOD 04/15/2025 1:24 PM EDT [facility] Comment:Results verified by repeat testing ALT (SGPT) 23 10 - 60 unit/L LAB CHEMISTRY METHOD 04/15/2025 1:24 PM EDT [facility] Alkaline Phosphatase 41(L) 42 - 121 unit/L LAB CHEMISTRY METHOD 04/15/2025 1:24 PM EDT [facility] Total Protein 5.9(L) 6.0 - 8.0 g/dL LAB CHEMISTRY METHOD 04/15/2025 1:24 PM EDT [facility] Albumin 2.8(L) 3.2 - 5.0 g/dL LAB CHEMISTRY METHOD 04/15/2025 1:24 PM EDT [facility] Total Bilirubin 0.6 0.0 - 1.4 mg/dL LAB CHEMISTRY METHOD 04/15/2025 1:24 PM EDT [facility] Blood Venous blood specimen / Unknown Venipuncture / Unknown 04/15/2025 6:42 AM EDT 04/15/2025 12:05 PM EDT us Frances CHACON LAB BLOOD ORDERABLES Final Resul t [facility] [address] [place] [address], * SST tube (04/14/2025 8:25 AM EDT) Extra Tube Hold for add-ons. 04/14/2025 10:01 AM EDT [facility] Comment:Auto resulted. Blood Venous blood specimen / Unknown 04/14/2025 8:25 AM EDT 04/14/2025 8:33 AM EDT us Kerry Ji MD LAB BLOOD ORDERABLES Final R esult Performing Organization Address City/[facility]/ZIP Co de Phone Number [facility] [address] [place] [address], [place] [phone] * (ABNORMAL) Hemoglobin and hematocrit (04/14/2025 8:25 AM EDT) Hemoglobin 7.1(L) 13.5 - 17.5 g/dL LAB HEMETOLOGY METHOD 04/14/2025 8:42 AM EDT [facility] Hematocrit 23.5(L) 42.0 - 54.0 % LAB HEMETOLOGY METHOD 04/14/2025 8:42 AM EDT [facility] Blood Venous blood specimen / Unknown Venipuncture / Unknown 04/14/2025 8:25 AM EDT 04/14/2025 8:32 AM EDT Kerry Ji MD LAB BLOOD ORDERABLES Final R esult Performing Organization Address [facility]/ZIP Co de Phone Number [facility] [address] [place] [address], * Tissue exam (04/11/2025 4:09 PM EDT) Only the most recent of3 resultswithin the time period is included. 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 Leg, Right, [...] the specimen is a consent form authorizing [facility] to dispose of the limb. Property Management Coordinator sections are submitted in six cassettes. 1-skin, soft tissue and muscle from the margin-taken perpendicularly and bone marrow from the margin, 1+ multiple pieces 2-business office representative bony margins (tibia-one larger piece and tibia-two smaller pieces; en face, red ink use for embedding) and cross-section of peroneal artery, four pieces, following decalcification 3-sections of skin scars and macule towards margin, three pieces 4-previous amputation site and cross-section of anterior vessel with overlying skin including thrombus, two pieces 6-bwxcc-mrfkjrgs of the anterior tibial artery, four pieces, following decalcification 7-waylw-bhmdrtke of posterior tibial artery, following decalcification, two pieces TS 04/16/2025 3:02 PM EDT [facility] Disclaimer Unless otherwise specified, all tissue is 10% NB formalin fixed and paraffin embedded. 04/16/2025 3:02 PM T [facility] Tissue Structure of right lower limb / Unknown 04/11/2025 4:09 PM EDT 04/12/2025 6:33 AM EDT Ahmet Banks MD LAB PATHOLOGY ORDERABLES Final Result Performing Organization Address City/[facility]/ZIP Co de Phone Number [facility] [address] [place] [address], [place] [phone] * TH AN LMA(NO CHARGE) (04/11/2025 3:48 [...] - 100 mg/dL 04/11/2025 3:15 PM EDT [facility] Blood Capillary blood specimen / Unknown 04/11/2025 3:14 PM EDT 04/11/2025 3:16 PM EDT Kerry Ji MD LAB POINT OF CARE TE ST DOCKED DEVICE UNSOLICITED RESULTS Final Result Performing Organization Address City[facility]/ZIP Co de Phone Number [facility] [address] [place] [address], * Anti-Xa - Every 6 Hours (04/11/2025 12:42 PM EDT) Only the most recent of5 resultswithin the time period is included. [facility] Heparin Anti-Xa 0.55 0.30 - 0.70 I Unit/mL LAB COAGULATION METHOD 04/11/2025 1:18 PM EDT [facility] Blood Venous blood specimen / Unknown Venipuncture / Unknown 04/11/2025 12:42 PM EDT 04/11/2025 12:56 PM EDT Narrative [facility] - 04/11/2025 1:18 PM EDT Therapeutic range listed is for Unfractionated Heparin. LMW Heparin therapeutic range: 0.50-1.20 IU/mL us Ju Valdez MD LAB BLOOD ORDERABLES Final Res ult Performing Organization Address City/[facility]/ZIP Co de Phone Number [facility] [address] [place] [address], [place] [phone] * Lactate (04/11/2025 12:04 AM EDT) Only the most recent of3 resultswithin the time period is included. [facility] Lactate 0.8 0.4 - 2.0 mmol/L LAB CHEMISTRY METHOD 04/11/2025 12:58 AM EDT [facility] Blood Venous blood specimen / Unknown Venipuncture / Unknown 04/11/2025 12:04 AM EDT 04/11/2025 12:13 AM EDT us Ju Valdez MD LAB BLOOD ORDERABLES Final Res ult [facility] [address] [place] [address], [place] [phone] * Lavender tube (04/10/2025 4:37 PM EDT) [facility] Extra Tube Hold for add-ons. 04/10/2025 6:01 PM EDT [facility] Comment:Auto resulted. Blood Venous blood specimen / Unknown 04/10/2025 4:37 PM EDT 04/10/2025 4:48 PM EDT us Ju Valdez MD LAB BLOOD ORDERABLES Final Res ult [facility] [address] [place] [address], [place] [phone] * Light blue tube (04/10/2025 4:37 PM EDT) Extra Tube Hold for add-ons. 04/10/2025 6:01 PM EDT [facility] Comment:Auto resulted. Blood Venous blood specimen / Unknown 04/10/2025 4:37 PM EDT 04/10/2025 4:48 PM EDT us Ju Valdez MD LAB BLOOD ORDERABLES Final Res ult Performing Organization Address [facility]/ZIP Co de Phone Number [facility] [address] [place] [address], [place] [phone] * Creatine kinase (04/10/2025 4:37 PM EDT) Total CK 32 22 - 269 unit/L LAB CHEMISTRY METHOD 04/10/2025 5:20 PM EDT [facility] Blood Venous blood specimen / Unknown Venipuncture / Unknown 04/10/2025 4:37 PM EDT 04/10/2025 4:44 PM EDT us Ju Valdez MD LAB BLOOD ORDERABLES Final Res ult Performing Organization Address City[facility]/ZIP Co de Phone Number [facility] [address] [place] [address], [place] [phone] * Vascular US duplex lower extremity arteries [...] Signed Date: 04/10/2025 14:39 ET Workstation ID: [id number] Transcribed By: Self Edit Transcribed Date: 04/10/2025 [...] Signed Date: 04/10/2025 14:39 ET Workstation ID: [id number] Transcribed By: Self Edit Transcribed Date: 04/10/2025 14:32 ET us Ju Valdez MD CV VASCULAR PROCEDURES Final R esult * (ABNORMAL) Activated Partial Thromboplastin Time - STAT (04/10/2025 12:31 PM EDT) aPTT 46.6(H) 24.1 - 39.3 sec LAB COAGULATION METHOD 04/10/2025 3:07 PM EDT [facility] Blood Venous blood specimen / Unknown Venipuncture / Unknown 04/10/2025 12:31 PM EDT 04/10/2025 1:03 PM EDT us Joselyn CHACON LAB BLOOD ORDERABLES Fin al Result [facility] [address] [place] [address], [place] [phone] * Prothrombin time with INR (04/10/2025 12:31 PM EDT) Protime 11.5 10.6 - 13.9 sec LAB COAGULATION METHOD 04/10/2025 1:14 PM EDT [facility] INR 0.9 LAB COAGULATION METHOD 04/10/2025 1:14 PM EDT [facility] Blood Venous blood specimen / Unknown Venipuncture / Unknown 04/10/2025 12:31 PM EDT 04/10/2025 1:03 PM EDT us Ju Valdez MD LAB BLOOD ORDERABLES Final Res ult [facility] [address] [place] [address], * Cardiac device check - Remote- MURJ (02/21/2025 7:24 PM EDT) Date Time Interrogation Session [id number] CV DEVICE CHECK Type Interrogation Session Remote CV DEVICE CHECK Implantable Pulse Generator Building Architectural Designer MDT CV DEVICE CHECK Implantable Pulse Generator Type IPG CV DEVICE CHECK Implantable Pulse Generator Model [place] XT DR MRI [id number] CV DEVICE CHECK Implantable Pulse Generator Serial Number [id number] CV DEVICE CHECK Implantable Pulse Generator Implant Date [id number] CV DEVICE CHECK Battery Remaining Longevity 101.0 CV DEVICE CHECK Battery Voltage 3.000 CV D EVICE CHECK Battery RAILROAD CONDUCTOR Trigger 2.625 CV DEVICE CHECK Battery Status Middle of Service CV DEVICE CHECK Jag Statistic RA Percent Paced 98.75 CV DEVICE CHECK Jag Statistic RV Percent Paced 99.82 CV DEVICE CHECK Atrial Tachy Statistic AT/AF [place] Percent 0.00 CV DEVICE CHECK Lead Channel [...] LAB CHEMISTRY METHOD 02/08/2025 2:11 PM EDT [facility] Blood Venous blood specimen / Unknown Venipuncture / Unknown 02/08/2025 1:11 PM EDT 02/08/2025 1:21 PM EDT us Andie CHACON LAB BLOOD ORDERABLES Final Res ult [facility] [address] [place] [address], * XR Foot 2 Views Right (02/07/2025 [...] Signed Date: 02/07/2025 15:11 ET Workstation ID: [id number] Transcribed By: Self Edit Transcribed Date: 02/07/2025 [...] Signed Date: 02/07/2025 15:11 ET Workstation ID: [id number] Transcribed By: Self Edit Transcribed Date: 02/07/2025 15:11 ET us Andie CHACON IMG XR PROCEDURES Final Result * Culture tissue with gram stain (02/07/2025 1:48 PM EDT) Culture, Tissue No growth aerobically and anaerobically at 5 days. 02/12/2025 9:14 AM EDT [facility] Gram Stain Result No polymorphonuclear leukocytes, No epithelial cells, and No organisms noted 02/12/2025 9:14 AM EDT [facility] Tissue Structure of right foot / Unknown 02/07/2025 1:48 PM EDT 02/07/2025 2:27 PM EDT Ahmet Banks MD LAB MICROBIOLOGY - GENERAL VLADIMIR GREWAL Final Result [facility] [address] [place] [address], * Culture bone (02/07/2025 1:48 PM EDT) Culture, Bone No growth aerobically and anaerobically at 5 days. 02/12/2025 9:15 AM EDT [facility] Gram Stain Result Rare Polymorphonuclear leukocytes 02/12/2025 9:15 AM EDT [facility] Gram Stain Result No Epithelial cells 02/12/2025 9:15 AM EDT [facility] Gram Stain Result No organisms seen 02/12/2025 9:15 AM EDT [facility] Bone Structure of right foot / Unknown 02/07/2025 1:48 PM EDT 02/07/2025 2:28 PM EDT us Ahmet Banks MD LAB MICROBIOLOGY - GENERAL VLADIMIR GREWAL Final Result [facility] [address] [place] [address], * TH AN LMA(NO CHARGE) (02/07/2025 1:32 [...] GEMUSE QTc 451 ms GEMUSE P Wave [place] -20 degrees GEMUSE R [place] -56 degrees GEMUSE T [place] 72 degrees GEMUSE ECG Interpretation AV dual-paced [...] during procedure: OR Anesthesiologist: Monae Borges MD Resident/SUPERVISOR PRE WAVE: Romi Price CRNA Other anesthesia staff: LISA [...] difficulty assessment: 0 - not attempted Ezekiel Husdon MD ANESTHESIA ORDERABLES Edited R esult - Final * Culture blood (02/05/2025 4:44 PM EDT) Only the most recent of2 resultswithin the time period is included. Culture, Blood No growth at 5 days 02/10/2025 5:01 PM EDT [facility] Blood Venous blood specimen / Unknown Venipuncture / Unknown 02/05/2025 4:44 PM EDT 02/05/2025 4:53 PM EDT Anika CHACON LAB MICROBIOLOGY - GENERAL OR DERABLES Final Result Performing Organization Address City/[facility]/ZIP Co de Phone Number [facility] [address] [place] [address], [place] [phone] * Lactate, with reflex (02/05/2025 2:48 PM EDT) [facility] LACTIC ACID 1.5 0.4 - 2.0 mmol/L LAB CHEMISTRY METHOD 02/05/2025 3:35 PM EDT [facility] Blood Venous blood specimen / Unknown Venipuncture / Unknown 02/05/2025 2:48 PM EDT 02/05/2025 3:04 PM EDT Anika CHACON LAB BLOOD ORDERABLES Final Re sult [facility] [address] [place] [address], [place] [phone] * Hemoglobin A1c (03/22/2024) [facility] Hemoglobin A1C 6.4 <=6.5 % Blood Venous blood specimen / Unknown Result [facility] Provider LAB BLOOD ORDERABLES Rosa Isela l Result * Urine Albumin Creatinine Ratio (09/08/2023) [facility] Urine Albumin Creatinine Ratio Abstracted Result [facility] Provider HEALTH MAINTENANCE Final Result * (ABNORMAL) Lipid panel (09/08/2023) [facility] LDL/HDL Ratio 4 0 - 4 Triglycerides 249(A) 0 - 150 mg/dL Cholesterol 130 0 - 200 mg/dL HDL 34(A) >=40 mg/dL LDL Cholesterol 47 0 - 100 mg/dL Blood Venous blood specimen / Unknown Result [facility] Provider LAB BLOOD ORDERABLES Rosa Isela l Result * Diabetes Foot Exam (09/07/2023) [facility] Diabetes: Annual Foot Exam Abstracted Result [facility] Provider HEALTH MAINTENANCE Final Result from Last 3 Months or Most Recently Relevant to Health Maintenance Insurance MEDICARE [facility] Advance Directives Documents on File Type Date Recorded Patient Property Management Coordinator Expl anation DNR (Do Not Resuscitate) 02/12/2025 [...] currently active code status orders. Care Teams Nurses Director Relationship Specialty Start Date End Date Diana Corona PA [address] [place] [phone] PCP - General Physician Resolute Professional 04/10/25
--- OUTSIDE RECORDS SUMMARY | 2025-05-01 09:12 | XMS_ITS | Clinical Summary ---
Author Organization [facility] Address [address] [place] [address] Phone Care Team Providers Care Is/It Project Manager Name Role Phone Mercy Grewal Primary Care Provider [phone] Allergies Active Allergy Reactions Criticality Noted Date [...] patient's age to complete this topic [place] [address] [place] [address] [place] [address] Medicare Medicare [facility] Care Teams Is/It Project Manager Relationship Specialty Start Date End Date Mercy Grewal [address] [place] [address] PCP - General 03/03/23
[2025-05-01 10:56] LABS: Microalbum/Creatinine Ratio Ur 104.6 ug/mg cr (<30)
== END 2025-05-01 08:16 | disposition home or self-care (01) ==
LOC: HO.HMGCLNP 08:15
PROVIDERS: Physician Assistant; Visit Provider Physician Assistant Medical
DX: I12.9 Hypertensive chronic kidney disease with stage 1 through stage 4 chronic kidney disease, or unspecified chronic kidney disease (principal); E11.22 Type 2 diabetes mellitus with diabetic chronic kidney disease; N18.4 Chronic kidney disease, stage 4 (severe); E78.5 Hyperlipidemia, unspecified; Z79.4 Long term (current) use of insulin
CPT/HCPCS: 82043; 82570

== ENCOUNTER 2025-06-01 12:45 | Outpatient (AMB) | payer MEDICARE, OTHER, SELFPAY ==
[2025-06-01 12:47] VITALS: BP 100/48; PULSE 70; O2SAT 95
--- NOTE | 2025-06-01 12:47 | A.OFFVIS_ITS ---
Vital Signs 06/01/25 12:47 Height 5 ft 8 in BP 100/48 L Blood Pressure Location Rt brachial Position Sitting Pulse 70 Pulse Source Pulse Oximeter Pulse Oximetry (%) 95 Oxygen Delivery Method Room Air Intake Visit Reasons: dm Intake Note: Patient present today for Type 2 Diabetes Mellitus Last Diabetic eye exam: 11/2024 Last Podiatry Visit: 05/2025 Random Glucose: 140 mg/dl HgA1C: 5.6% 04/30/25 Incident Analyst Required: No Incident Analyst Services: Incident Analyst Offered & Declined Accompanied by: Spouse Allergies Iodinated Contrast Media (IV Dye, Iodine Containing) Allergy (Severe, Verified 06/01/25 12:53) SWELLING sulfamethoxazole (From Bactrim) Allergy (Severe, Verified 06/01/25 12:53) SWELLING RASH tetracycline (Tetracycline) Allergy (Severe, Verified 06/01/25 12:53) SWELLING , RASH trimethoprim (From Bactrim) Allergy (Severe, Verified 06/01/25 12:53) SWELLING RASH Sulfa (Sulfonamide Antibiotics) Allergy (Unknown, Verified 06/01/25 12:53) hives IVP dye Allergy (Unknown, Uncoded 06/01/25 12:53) Anaphylaxis Renée Dry Allergy (Unknown, Uncoded 06/01/25 12:53) rash tetracycline Allergy (Unknown, Uncoded 06/01/25 12:53) hives HPI HPI dm: Details: Patient is an 84-year-old male with a significant past medical history of stage 3b kidney disease, diabetic neuropathy, type 2 diabetes, hypertension, PAD and hyperlipidemia presenting today for a diabetic follow-up. Endo: His A1c was 5.8. He is currently on tresiba 14 units, Ozempic 2 mg weekly. -weight is stable cgm-usage is at the 66%. He is within target 96% time, 1% high, 3% hypoglycemic. He did have a low glucose reading He does suffer from significant painful neuropathy. He has tried gabapentin 300 mg 2 to 3 times a day without significant improvement. He has tried Nucynta but that is not as effective. Vasc: He follows with vascular surgery from [facility]. Since I last saw him he has had bypass on right leg and 4th right toe amputation (January 2025) CV: Blood pressure is in the office is 100/58. He is on atenolol 50 mg, furosemide 20 mg. Cholesterol is controlled with atorvastatin 80 mg and Tricor 145 mg. Nephro: Follows with Dr. Hill. Discussed possible jardiance and he declines. [facility] Medical History (Updated 05/09/25 @ 10:40 by Shae Motley NP) Amputation below knee Macrocytic anemia Anemia Skin cancer Hx of cardiac pacemaker Below-knee amputation of right lower extremity PAD (peripheral artery disease) CAD (coronary artery disease) Aneurysm of left leg Surgery, elective Obesity due to excess calories Hx of aneurysm Hx of myocardial infarction Carpal tunnel syndrome Throat cancer Ischemic colitis Pacemaker Diverticulitis BPH (benign prostatic hyperplasia) Type 2 diabetes mellitus with chronic kidney disease Chronic kidney disease, stage 3 Type 2 diabetes mellitus with diabetic polyneuropathy Essential hypertension Hyperlipidemia LDL goal <70 Surgical History (Updated 06/01/25 @ 12:55 by LORENZO Tena) History of amputation of foot History of amputation of toe History of back surgery H/O neck surgery History of prostate surgery Hx of angioplasty Hx of hernia repair Hx of tonsillectomy Family History (Updated 04/30/25 @ 10:42 by Clarice Arango MA) Father Prostate cancer Mother Breast cancer Diabetes Social History Household Members: Spouse Alcohol intake: never Patient Tobacco Use Status: Former Tobacco user Tobacco use type: Cigarette Years Smoked: 40 e-Cigarette/Vaping Use: Never Used Second Hand Smoke Exposure: No Cognitive needs: No Hearing needs: No Vision needs: No Physical Exam Vital Signs: Last Vital Signs Pulse 70 06/01/25 12:47 Pulse Ox 95 06/01/25 12:47 Oxygen Delivery Method Room Air 06/01/25 12:47 Const Orientation/consciousness: patient oriented x3 HEENT Ears: hearing grossly normal bilaterally Neck Thyroid: Thyroid normal Lymphatic: no lymphadenopathy noted Resp Auscultation: clear to auscultation bilaterally Cardio Rate: regular rate Rhythm: regular rhythm Heart sounds: S1 normal heart sound present and S2 normal heart sound present Skin General skin exam: no rashes or lesions noted Neuro General: patient oriented x3, gait normal and no focal motor deficits Extrem Other: Right BKA noted Assessment & Plan Assessment & Plan (1) Type 2 diabetes mellitus with chronic kidney disease: Code(s): E11.22 - Type 2 diabetes mellitus with diabetic chronic kidney disease Category: Medical Qualifiers: Diabetes mellitus terminal supervisor insulin use: with longterm use Chronic kidney disease stage: stage 4 (severe) Qualified Code(s): E11.22 - Type 2 diabetes mellitus with diabetic chronic kidney disease; N18.4 - Chronic kidney disease, stage 4 (severe); Z79.4 - care home (current) use of insulin Plan: Reduce Tresiba to 10 units Continue Ozempic (2) Essential hypertension: Code(s): I10 - Essential (primary) hypertension Category: Medical Plan: Blood pressure low end today. He is asymptomatic and states that the nurses have been checking at home and they have been normal. Medications: Changed From insulin degludec (Tresiba FlexTouch U-200 insulin) If bs are around 150 or so he only gives himself 10-12 units 20 units (0.1 mL) subcut .nightly 9 mL 6RF To insulin degludec (Tresiba FlexTouch U-200 insulin) If bs are around 150 or so he only gives himself 10-12 units 10 units (0.05 mL) subcut .nightly 9 mL 6RF Coding Level of Care Code Est Pt Level 4 (36870) Complex EM visit Add On G2211 Diagnoses Type 2 diabetes mellitus with stage 4 chronic kidney disease, with long-term current use of insulin E11.22; N18.4; Z79.4 Diabetes mellitus terminal supervisor insulin use: with terminal supervisor use Chronic kidney disease stage: stage 4 (severe) Essential hypertension I10
[2025-06-01 13:00] LABS: Glucose, Whole Blood 140 mg/dL (60-115)
--- OUTSIDE RECORDS SUMMARY | 2025-06-01 13:13 | XMS_ITS | Encounter Summary ---
Author Organization [facility] Address [address] [place] [address] Phone Care Team Providers Care School Custodian Name Role Phone Irving Swift DO Primary Care Provider [phone] Janee Berry MD, MPH Primary Care Provid er Unknown, Unknown Primary Care Provider Jaya Sanchez MD Primary Care Provider Encounter Details Date Type Department Care Team (Late st Contact Info) Description 07/24/2017 Ancillary [facility] [address] [place] [address] Ulisses Lyn MD [address] [place] [address] [email or web address] Social History Tobacco Use Types Packs/Day Years Used Date Smoking Tobacco: Never Assessed Sex and Gender Information Value Date Recorded Sex Assigned at Not on file Legal Sex Male 10:38 PM EDT Gender Identity Not on file Sexual Orientation Not on file documented as of this encounter Plan of Treatment Not on file documented as of this encounter Visit Diagnoses Not on filedocumented in this encounter Care Teams School Custodian Relationship Specialty Start Date End Date Irving Swift DO [address] [place] [address] PCP - General 07/22/17 01/18/19 Janee Berry MD, MPH [address] [facility] [address] [place] [address] [email or web address] PCP - General Family Medicine 01/19/19 05/23/19 Unknown, Unknown, [address] [address] PCP - General 05/24/19 09/06/19 Jaya Brock MD [address] [place] [id number] PCP - General 09/07/19 documented as of this encounter Additional Source Comments The information contained in this document represents components of the legal health record. It is not the complete legal health record.[facility]
--- OUTSIDE RECORDS SUMMARY | 2025-06-01 13:13 | XMS_ITS | Encounter Summary ---
Author Organization [facility] [place] [address] Care Team Providers Care Press Tender Smoke Signal Name Role Phone Diana Corona Primary Care Provider [phone] Encounter Details Date Type Department Care Team (Late st Contact Info) Description 04/19/2025 Lab Requisition [facility] Main [facility] [address] [facility] [place] [address] Rikki Rosen PA [address] [phone] Encounter for other general examination Social History Tobacco Use Types Packs/Day Years [...] of Assessment Author No 02/05/2025 8:35 PM Klelie Gaines RN * Because of a physical, [...] Care Team (Late st Contact Info) Description 06/06/2025 1:00 PM EDT Office Visit Vascular Surgery [facility] [address] [phone] Mary Lou Barragan PA [address] [address] 06/21/2025 9:15 AM EDT Clinical Support [facility] [address] [place] [address] 06/25/2025 11:00 AM EDT Office Visit Vascular Surgery [facility] [address] [place] [address] Ahmet Banks MD [address] [place] [phone] documented as of this encounter Procedures Procedure Name Priority Date/Time Associated Diagnosis Comments COMPLETE BLOOD COUNT Routine 04/19/2025 6:03 AM EDT Encounter for other general examination BASIC METABOLIC PANEL Routine 04/19/2025 6:03 AM EDT Encounter for other general examination documented in this encounter Results * (ABNORMAL) Complete blood count (04/19/2025 6:03 AM EDT) WBC 7.5 4.8 - 10.8 K/mcL LAB HEMETOLOGY METHOD 04/19/2025 10:[address] [facility] RBC 2.30(L) 4.50 - 5.50 M/mcL LAB HEMETOLOGY METHOD 04/19/2025 10:[address] [facility] Hemoglobin 7.3(L) 13.5 - 17.5 g/dL LAB HEMETOLOGY METHOD 04/19/2025 10:[address] [facility] Hematocrit 23.7(L) 42.0 - 54.0 % LAB HEMETOLOGY METHOD 04/19/2025 10:[address] [facility] MCV 104.9(H) 79.0 - 98.0 FL LAB HEMETOLOGY METHOD 04/19/2025 10:[address] [facility] MCH 32.3(H) 27.0 - 32.0 pcg LAB HEMETOLOGY METHOD 04/19/2025 10:[address] [facility] MCHC 30.8(L) 32.0 - 37.0 g/dL LAB HEMETOLOGY METHOD 04/19/2025 10:[address] [facility] RDW 15.9(H) 11.0 - 15.0 % LAB HEMETOLOGY METHOD 04/19/2025 10:14 AM EDT [facility] Platelets 257 130 - 400 K/mcL LAB HEMETOLOGY METHOD 04/19/2025 10:14 AM EDT [facility] MPV 10.4 7.0 - 11.0 FL LAB HEMETOLOGY METHOD 04/19/2025 10:14 AM EDT [facility] NRBC 0.0 <1.0 % LAB HEMETOLOGY METHOD 04/19/2025 10:14 AM EDT [facility] NRBC Absolute 0.00 <0.10 K/mcL LAB HEMETOLOGY METHOD 04/19/2025 10:[address] [facility] Blood Venous blood specimen / Unknown Venipuncture / Unknown 04/19/2025 6:03 AM EDT 04/19/2025 9:42 AM EDT us Rikki CHACON LAB BLOOD ORDERABLES Final R esult [facility] [address] [place] [address], * (ABNORMAL) Basic metabolic panel (04/19/2025 6:03 AM EDT) Sodium 138 133 - 145 mmol/L LAB CHEMISTRY METHOD 04/19/2025 10:[address] [facility] Potassium 4.4 3.5 - 5.5 mmol/L LAB CHEMISTRY METHOD 04/19/2025 10:[address] [facility] Chloride 105 96 - 110 mmol/L LAB CHEMISTRY METHOD 04/19/2025 10:[address] [facility] CO2 28 21 - 32 mmol/L LAB CHEMISTRY METHOD 04/19/2025 10:[address] [facility] Anion Gap 5 3 - 11 LAB CHEMISTRY METHOD 04/19/2025 10:[address] [facility] Glucose 99 70 - 100 mg/dL LAB CHEMISTRY METHOD 04/19/2025 10:54 AM EDT [facility] BUN 33(H) 5 - 25 mg/dL LAB CHEMISTRY METHOD 04/19/2025 10:54 AM T [facility] Creatinine 1.54(H) 0.70 - 1.30 mg/dL LAB CHEMISTRY METHOD 04/19/2025 10:54 AM EDT [facility] eGFR 44(L) >=60 mL/min/1. 73m2 LAB CHEMISTRY METHOD 04/19/2025 10:54 AM EDT [facility] Comment:Calculation based on the Chronic Kidney Disease Epidemiology Collaboration (CKD-EPI) equation refit without adjustment for race. BUN/Creatinine Ratio 21.4 LAB CHEMISTRY METHOD 04/19/2025 10:54 AM EDT [facility] Calcium 8.8 8.5 - 10.5 mg/dL LAB CHEMISTRY METHOD 04/19/2025 10:54 AM EDT [facility] Blood Venous blood specimen / Unknown Venipuncture / Unknown 04/19/2025 6:03 AM EDT 04/19/2025 9:42 AM EDT Rikki CHACON LAB BLOOD ORDERABLES Final R esult [facility] [address] [place] [address], documented in this encounter Visit Diagnoses Diagnosis Encounter for other general examination documented in this encounter Additional Health Concerns Infection Onset Date Last Indicated Resolved Time 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 05/21/2025 05/21/2025 05/24/2025 7:32 AM E DT Respiratory Rule-Out 05/23/2025 05/23/2025 025 11:46 PM EDT COVID-19 Rule-Out 05/23/2025 05/23/2025 05/23/2025 11:46 PM EDT documented as of this encounter Care Teams Press Tender Smoke Signal Relationship Specialty Start Date End Date Cj, Diana E, PA [address] [place] [address] PCP - General Physician Jumpbasting Machine Operator 04/10/25 documented as of this encounter
--- OUTSIDE RECORDS SUMMARY | 2025-06-01 13:13 | XMS_ITS | Clinical Summary ---
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 adjustment for race. Blood Venous blood specimen / Unknown Venipuncture / Unknown 05/25/2025 5:11 PM EDT 05/25/2025 5:16 PM EDT us Aditya Dia MD LAB BLOOD ORDERABLES Final Resul t [facility] [address] [place] [address], [place] [phone] * Vancomycin, trough (05/25/2025 5:11 PM EDT) Vancomycin Trough 11.5 10.0 - 20.0 mcg/mL LAB CHEMISTRY METHOD 05/25/2025 5:51 PM EDT [facility] Blood Venous blood specimen / Unknown Venipuncture / Unknown 05/25/2025 5:11 PM EDT 05/25/2025 5:16 PM EDT us Cezar Chan MD LAB BLOOD ORDERABLES Final Result Performing Organization Address [facility]/ZIP Co de Phone Number [facility] [address] [place] [address], [place] [phone] * POCT Glucose, blood (05/24/2025 7:58 AM EDT) Only the most recent of7 resultswithin the time period is included. Glucose POCT 92 70 - 100 mg/dL 05/24/2025 7:58 AM EDT [facility] Blood Capillary blood specimen / Unknown 05/24/2025 7:58 AM EDT 05/24/2025 8:00 AM EDT us Aditya Dia MD LAB POINT OF CARE TE ST DOCKED DEVICE UNSOLICITED RESULTS Final Result [facility] [address] [place] [address], * (ABNORMAL) Basic metabolic panel (05/24/2025 5:53 AM EDT) Only the most recent of8 resultswithin the time period is included. Sodium 140 133 - 145 mmol/L LAB CHEMISTRY METHOD 05/24/2025 7:05 AM [facility] Potassium 4.3 3.5 - 5.5 mmol/L LAB CHEMISTRY METHOD 05/24/2025 7:05 AM [facility] Chloride 108 96 - 110 mmol/L LAB CHEMISTRY METHOD 05/24/2025 7:05 AM [facility] CO2 26 21 - 32 mmol/L LAB CHEMISTRY METHOD 05/24/2025 7:05 AM [facility] Anion Gap 6 3 - 11 LAB CHEMISTRY METHOD 05/24/2025 7:05 AM [facility] Glucose 93 70 - 100 mg/dL LAB CHEMISTRY METHOD 05/24/2025 7:05 AM [facility] BUN 25 5 - 25 mg/dL LAB CHEMISTRY METHOD 05/24/2025 7:05 AM [facility] Creatinine 1.68(H) 0.70 - 1.30 mg/dL LAB CHEMISTRY METHOD 05/24/2025 7:05 AM [facility] eGFR 40(L) >=60 mL/min/1. 73m2 LAB CHEMISTRY METHOD 05/24/2025 7:05 AM [facility] Comment:Calculation based on the Chronic Kidney Disease Epidemiology Collaboration (CKD-EPI) equation refit without adjustment for race. BUN/Creatinine Ratio 14.9 LAB CHEMISTRY METHOD 05/24/2025 7:05 AM [facility] Calcium 8.6 8.5 - 10.5 mg/dL LAB CHEMISTRY METHOD 05/24/2025 7:05 AM EDT [facility] Blood Venous blood specimen / Unknown Venipuncture / Unknown 05/24/2025 5:53 AM EDT 05/24/2025 6:18 AM EDT us Cezar Chan MD LAB BLOOD ORDERABLES Final Result [facility] [address] [place] [address], * Respiratory virus panel molecular study (05/23/2025 10:23 PM EDT) Pathologist [facility] Adenovirus Detection by PCR Not Detected Not Detected LAB MICROBIOLOGY METHOD 05/23/2025 11:46 PM EDT [facility] Influenza A PCR Not Detected Not Detected LAB MICROBIOLOGY METHOD 05/23/2025 11:46 PM EDT [facility] Influenza B PCR Not Detected Not Detected LAB MICROBIOLOGY METHOD 05/23/2025 11:46 PM EDT [facility] Coronavirus 229E Not Detected Not Detected LAB MICROBIOLOGY METHOD 05/23/2025 11:46 PM EDT [facility] Coronavirus HKU1 Not Detected Not Detected LAB MICROBIOLOGY METHOD 05/23/2025 11:46 PM EDT [facility] Coronavirus OC43 Not Detected Not Detected LAB MICROBIOLOGY METHOD 05/23/2025 11:46 PM EDT [facility] Coronavirus NL63 Not Detected Not Detected LAB MICROBIOLOGY METHOD 05/23/2025 11:46 PM EDT [facility] Parainfluenza Virus 1 Not Detected Not Detected LAB MICROBIOLOGY METHOD 05/23/2025 11:46 PM EDT [facility] Parainfluenza Virus 2 Not Detected Not Detected LAB MICROBIOLOGY METHOD 05/23/2025 11:46 PM EDT [facility] Parainfluenza Virus 3 Not Detected Not Detected LAB MICROBIOLOGY METHOD 05/23/2025 11:46 PM EDT [facility] Parainfluenza Virus 4 Not Detected Not Detected LAB MICROBIOLOGY METHOD 05/23/2025 11:46 PM EDT [facility] RSV PCR Not Detected Not Detected LAB MICROBIOLOGY METHOD 05/23/2025 11:46 PM EDT [facility] Human Metapneumovirus A and B Not Detected Not Detected LAB MICROBIOLOGY METHOD 05/23/2025 11:46 PM EDT [facility] Rhinovirus/Entero virus Not Detected Not Detected LAB MICROBIOLOGY METHOD 05/23/2025 11:46 PM EDT [facility] Bordetella pertussis Not Detected Not Detected LAB MICROBIOLOGY METHOD 05/23/2025 11:46 PM EDT [facility] Bordetella parapertussis Not Detected Not Detected LAB MICROBIOLOGY METHOD 05/23/2025 11:46 PM EDT [facility] Mycoplasma pneumo by PCR Not Detected Not Detected LAB MICROBIOLOGY METHOD 05/23/2025 11:46 PM EDT [facility] Chlamydia pneumoniae Not Detected Not Detected LAB MICROBIOLOGY METHOD 05/23/2025 11:46 PM EDT [facility] SARS COV-2 Not Detected Not Detected LAB MICROBIOLOGY METHOD 05/23/2025 11:46 PM T [facility] Aspirate Nasopharyngeal structure / Unknown Non-blood Collection / Unknown 05/23/2025 10:23 PM EDT 05/23/2025 10:46 PM EDT [facility] - 05/23/2025 11:46 PM EDT Testing was performed using the [employer] Respiratory Pathogen PCR Assay. All results must [...] are below the limit of detection. us Cezar Chan MD LAB MICROBIOLOGY - GENERAL ORDERABLES Final Result Performing Organization Address [facility]/ZIP Co de Phone Number [facility] [address] [place] [address], [place] [phone] * Blood Culture, Peripheral #1 (05/23/2025 6:06 PM EDT) Only the most recent of4 resultswithin the time period is included. Pathologist [facility] Culture, Blood No growth at 5 days 05/28/2025 7:01 PM EDT [facility] Blood Venous blood specimen / Unknown Venipuncture / Unknown 05/23/2025 6:06 PM EDT 05/23/2025 6:51 PM EDT Genaro Sinclair MD LAB MICROBIOLOGY - GENERA L ORDERABLES Final Result Performing Organization Address [facility] Co de Phone Number [facility] [address] [place] [address], * Lactate, with Reflex (05/23/2025 5:51 PM EDT) [facility] LACTIC ACID 1.0 0.4 - 2.0 mmol/L LAB CHEMISTRY METHOD 05/23/2025 7:28 PM EDT [facility] Blood Venous blood specimen / Unknown Venipuncture / Unknown 05/23/2025 5:51 PM EDT 05/23/2025 6:52 PM EDT Genaro Sinclair MD LAB BLOOD ORDERABLES Rosa Isela l Result Performing Organization Address [facility] Co de Phone Number [facility] [address] [place] [address], [place] [phone] * (ABNORMAL) C-reactive protein (05/23/2025 5:51 PM EDT) Only the most recent of2 resultswithin the time period is included. [facility] C-Reactive Protein 8.91(H) <=0.50 mg/dL LAB CHEMISTRY METHOD 05/23/2025 7:33 PM EDT [facility] Blood Venous blood specimen / Unknown Venipuncture / Unknown 05/23/2025 5:51 PM EDT 05/23/2025 6:50 PM EDT us Genaro Sinclair MD LAB BLOOD ORDERABLES Rosa Isela l Result [facility] [address] [place] [address], * Cardiac device check - Remote- MURJ (05/22/2025 11:13 AM EDT) Date Time Interrogation Session [id number] CV DEVICE CHECK Type Interrogation Session Remote CV DEVICE CHECK Implantable Pulse Generator Senior Systems Programmer MDT CV DEVICE CHECK Implantable Pulse Generator Type IPG CV DEVICE CHECK Implantable Pulse Generator Model [place] XT DR MRI [id number] CV DEVICE CHECK Implantable Pulse Generator Serial Number [id number] CV DEVICE CHECK Implantable Pulse Generator Implant Date [id number] CV DEVICE CHECK Battery Remaining Longevity 99.0 CV DEVICE CHECK Battery Voltage 3.000 CV D EVICE CHECK Battery ACCOUNTING DIRECTOR Trigger 2.625 CV DEVICE CHECK Battery Status Middle of Service CV DEVICE CHECK Jag Statistic RA Percent Paced 98.99 CV DEVICE CHECK Jag Statistic RV Percent Paced 99.89 CV DEVICE CHECK Atrial Tachy Statistic AT/AF [place] Percent 0.00 CV DEVICE CHECK Lead Channel Sensing Intrinsic Amplitude 2.250 CV DEVICE CHECK Lead Channel Setting Sensing Sensitivity 0.30 CV DEVICE CHECK Lead Channel Impedance Value 380 CV DEVICE CHECK Lead Channel Pacing Threshold Amplitude 0.750 CV DEVICE CHECK Lead Channel Pacing Threshold Pulse Width 0.4 CV DEVICE CHECK Lead Channel RA Pacing Threshold Date 2025-04-21 CV DEVICE CHECK Lead Channel Setting Pacing [...] CHECK Lead Channel RV Pacing Threshold Date 2025-05-17 CV DEVICE CHECK Lead Channel Setting Pacing [...] 6 CV DEVICE CHECK Date of Service 2025-05-27 CV DEVICE CHECK Anatomical Region Laterality Modality Device Interroga tion 05/17/2025 1:31 PM EDT Impressions 05/22/2025 11:11 AM EDT Normal Remote: With Events * Normal Device Function * Events or Alerts: 1 * VT- 11 bts * Battery: OK, 8.25 yrs * Sensing, impedance and thresholds reviewed * Programmed parameters reviewed * Presenting rhythm reviewed * Heart Rate Histograms reviewed Narrative Procedure Note Viri Garvin PA - 05/22/2025 IMPRESSION: Normal Remote: With Events * Normal Device Function * Events or Alerts: 1 * VT- 11 bts * Battery: OK, 8.25 yrs * Sensing, impedance and thresholds reviewed * Programmed parameters reviewed * Presenting rhythm reviewed * Heart Rate Histograms reviewed us Viri CHACON CV IMPLANTABLE CARDIAC DEVICE VA OCEDURES Final Result * ECG-Annotated (05/22/2025) Provider Onbase MD ECG ORDERABLES Final Result * (ABNORMAL) MRSA molecular study (05/21/2025 10:47 PM EDT) [facility] MRSA Screen PCR Detected (A) Not Detected LAB MICROBIOLOGY METHOD 05/22/2025 12:23 AM EDT [facility] Swab Both anterior nares / Unknown Non-blood Collection / Unknown 05/21/2025 10:47 PM EDT 05/21/2025 11:25 PM EDT Cezar Chan MD LAB MICROBIOLOGY - GENERAL ORDERABLES Final Result [facility] [address] [place] [address], [place] [phone] * CT Lower Extremity wo Contrast Right (05/21/2025 7:43 PM EDT) Anatomical Region Laterality Modality Lower Extremities Right Computed Tomog lupe 05/21/2025 8:12 PM EDT Impressions 05/21/2025 8:12 PM EDT Impression: 1. Status post below-knee amputation. Soft tissue stranding [id number]-[id number] and at the stump with no loculated fluid collection or soft tissue gas. 2. No acute osseous findings 3. Nonacute findings as described. This document has been electronically signed by: Tanisha Trivedi MD on 05/21/2025 20:12:48 Narrative 05/21/2025 8:12 PM EDT INDICATION: infection R BKA CT right lower extremity without contrast Comparison: None provided Findings: Images were obtained from above the hip to wtvkg-sve-aeqq level. Status post below-knee amputation. Mild stranding in soft tissues ojzvf-elu-wcrb and in the stump. No loculated fluid collection no soft tissue gas. No acute fracture. No dislocation. Mild degenerative changes in the hip. Degenerative changes in the medial tibiofemoral compartment. No erosions. No joint effusion. Atherosclerotic vascular disease. Diverticulosis of the sigmoid colon. Procedure Note Tanisha Trivedi MD - 05/21/2025 INDICATION: infection R BKA CT right lower extremity without contrast Comparison: None provided Findings: Images were obtained from above the hip to moizs-mfh-gjbn level. Status post below-knee amputation. Mild stranding in soft tissues qaoic-ohe-pxaw and in the stump. No loculated fluid collection no soft tissue gas. No acute fracture. No dislocation. Mild degenerative changes in the hip. Degenerative changes in the medial tibiofemoral compartment. No erosions. No joint effusion. Atherosclerotic vascular disease. Diverticulosis of the sigmoid colon. IMPRESSION: Impression: 1. Status post below-knee amputation. Soft tissue dbjskwtwgsxwbs-blz-fyob and at the stump with no loculated fluid collection or soft tissue gas. 2. No acute osseous findings 3. Nonacute findings as described. This document has been electronically signed by: Tanisha Trivedi MD on 05/21/2025 20:12:48 Nahid Dumas MD IM CT PROCEDURES Final Result * XR Knee 1-2 Views Right (05/21/2025 7:37 PM EDT) Anatomical Region Laterality Modality Lower Extremities, Knee Right Radiogra phic Imaging 05/22/2025 8:44 AM EDT Impressions 05/22/2025 8:46 AM EDT Impression: No acute fracture or dislocation identified. Telerad OSWALDO ([id number]) -------- FINAL REPORT -------- Dictated By: Sudha De La Rosa Dictated Date: 05/22/2025 08:44 ET Assigned Physician: Sudha De La Rosa Reviewed and Electronically Signed By: Sudha De La Rosa Signed Date: 05/22/2025 08:46 ET Workstation ID: [id number] Transcribed By: Self Edit Transcribed Date: 05/22/2025 08:44 ET Narrative 05/22/2025 8:46 AM EDT History: Right knee pain after fall. Comparison: CT right lower extremity performed immediately prior. Findings: AP and crossfire lateral views of the right knee. The patient is status post below-knee amputation but the distal end of the stump is not included on the imaging. No acute fracture or dislocation is seen. The articular spaces are well- maintained. Small marginal osteophytes are seen throughout the knee. No joint effusion is identified. Extensive arterial calcification is present. Vascular surgical clips are seen in the medial aspect of the distal thigh and proximal leg. Procedure Note Sudha De La Rosa MD - 05/22/2025 History: Right knee pain after fall. Comparison: CT right lower extremity performed immediately prior. Findings: AP and crossfire lateral views of the right knee. The patient is statuspost below-knee amputation but the distal end of the stump is not includedon the imaging. No acute fracture or dislocation is seen. The articular spaces arewell- maintained. Small marginal osteophytes are seen throughout the knee.No joint effusion is identified. Extensive arterial calcification is present. Vascular surgical clips areseen in the medial aspect of the distal thigh and proximal leg. IMPRESSION: Impression: No acute fracture or dislocation identified. Telerad OSWALDO ([id number]) -------- FINAL REPORT -------- Dictated By: Sudha De La Rosa Dictated Date: 05/22/2025 08:44 ET Assigned Physician: Sudha De La Rosa Reviewed and Electronically Signed By: Sudha De La Rosa Signed Date: 05/22/2025 08:46 ET Workstation ID: [id number] Transcribed By: Self Edit Transcribed Date: 05/22/2025 08:44 ET Cezar Chan MD IMG XR PROCEDURES Final Res ult * Lactate (05/21/2025 6:44 PM EDT) Only the most recent of4 resultswithin the time period is included. [facility] Lactate 1.3 0.4 - 2.0 mmol/L LAB CHEMISTRY METHOD 05/21/2025 8:14 PM EDT [facility] Blood Venous blood specimen / Unknown Venipuncture / Unknown 05/21/2025 6:44 PM EDT 05/21/2025 7:30 PM EDT Nahid Dumas MD LAB BLOOD ORDERABLES Final Resul t [facility] [address] [place] [address], [place] [phone] * 12-Lead ECG (05/21/2025 6:41 PM EDT) Pathologist [facility] Ventricular Rate ECG 70 BPM GEMUSE Atrial Rate 70 BPM GEMUSE P-R Interval 248 ms GEMUSE QRS Duration 122 ms GEMUSE Q-T Interval 406 ms GEMUSE QTc 438 ms GEMUSE R [place] -41 degrees GEMUSE T [place] -75 degrees GEMUSE ECG Interpretation AV dual-paced rhythm with prolonged AV conduction Abnormal ECG When compared with ECG of 07-FEB-2025 10:23, No significant change was found Confirmed by JOHN JONES ([id number]) on 05/22/2025 4:11:35 PM GEMUSE 05/21/2025 6:41 PM EDT 05/22/2025 4:11 PM EDT us Nahid Dumas MD ECG ORDERABLES Final Result GEMUSE * XR Chest 2 Views (05/21/2025 5:53 PM EDT) Anatomical Region Laterality Modality Body Radiographic Cristela ging 05/22/2025 8:32 AM EDT Impressions 05/22/2025 8:33 AM EDT Impression: No active pulmonary process identified. Telerad OSWALDO ([id number]) -------- FINAL REPORT -------- Dictated By: Sudha De La Rosa Dictated Date: 05/22/2025 08:32 ET Assigned Physician: Sudha De La Rosa Reviewed and Electronically Signed By: Sudha De La Rosa Signed Date: 05/22/2025 08:33 ET Workstation ID: [id number] Transcribed By: Self Edit Transcribed Date: 05/22/2025 08:32 ET Narrative 05/22/2025 8:33 AM EDT History: Fever. Comparison: No comparison imaging at this institution. Findings: Upright AP and lateral views of the chest. The cardiac silhouette is at the upper limit of normal for size. Sternal sutures and mediastinal clips are noted. A left subclavian transvenous pacemaker is present, with leads terminating in the expected locations of the right atrium and ventricle. Mild atherosclerotic tortuosity of the thoracic aorta is seen. The smooth are not enlarged. The pulmonary vascularity is within normal limits. The lungs are clear. The costophrenic angles are sharp. An abdominal aortic stent graft is partially imaged. Deformity of the left humeral neck is partially imaged, suggesting an old, healed fracture. Procedure Note Sudha De La Rosa MD - 05/22/2025 History: Fever. Comparison: No comparison imaging at this institution. Findings: Upright AP and lateral views of the chest. The cardiac silhouette is atthe upper limit of normal for size. Sternal sutures and mediastinal clipsare noted. A left subclavian transvenous pacemaker is present, with leadsterminating in the expected locations of the right atrium and ventricle.Mild atherosclerotic tortuosity of the thoracic aorta is seen. The smooth are not enlarged. The pulmonary vascularity is within normallimits. The lungs are clear. The costophrenic angles are sharp. An abdominal aortic stent graft is partially imaged. Deformity of the lefthumeral neck is partially imaged, suggesting an old, healed fracture. IMPRESSION: Impression: No active pulmonary process identified. Shelly CHACON ([id number]) -------- FINAL REPORT -------- Dictated By: Sudha De La Rosa Dictated Date: 05/22/2025 08:32 ET Assigned Physician: Sudha De La Rosa Reviewed and Electronically Signed By: Sudha De La Rosa Signed Date: 05/22/2025 08:33 ET Workstation ID: [id number] Transcribed By: Self Edit Transcribed Date: 05/22/2025 08:32 ET Cezar Chan MD IMG XR PROCEDURES Final Res ult * (ABNORMAL) Vitamin B12 (04/24/2025 6:02 AM EDT) Vitamin B-12 1,498(H) 250 - 900 pcg/mL LAB CHEMISTRY METHOD 04/24/2025 12:00 PM EDT [facility] Blood Venous blood specimen / Unknown Venipuncture / Unknown 04/24/2025 6:02 AM EDT 04/24/2025 10:02 AM EDT Reyna CHACON LAB BLOOD ORDERABLES Final Re sult [facility] [address] [place] [address], [place] [phone] * (ABNORMAL) Complete blood count (04/23/2025 6:20 AM EDT) Only the most recent of4 resultswithin the time period is included. [facility] Signature WBC 7.8 4.8 - 10.8 K/mcL LAB [facility]EM[facility]OLOGY [facility] RBC 2.30(L) 4.50 - 5.50 M/mcL LAB HEMETOLOGY METHOD 04/23/2025 12:[facility] Hemoglobin 7.7(L) 13.5 - 17.5 g/dL LAB HEMETOLOGY METHOD 04/23/2025 12:36 PM [facility] Hematocrit 25.3(L) 42.0 - 54.0 % LAB HEMETOLOGY METHOD 04/23/2025 12:36 PM [facility] MCV 108.6(H) 79.0 - 98.0 FL LAB HEMETOLOGY METHOD 04/23/2025 12:36 PM [facility] MCH 33.0(H) 27.0 - 32.0 pcg LAB HEMETOLOGY METHOD 04/23/2025 12:36 PM [facility] MCHC 30.4(L) 32.0 - 37.0 g/dL LAB HEMETOLOGY METHOD 04/23/2025 12:36 PM [facility] RDW 17.2(H) 11.0 - 15.0 % LAB HEMETOLOGY METHOD 04/23/2025 12:36 PM [facility] Platelets 360 130 - 400 K/mcL LAB HEMETOLOGY METHOD 04/23/2025 12:36 PM [facility] MPV 9.8 7.0 - 11.0 FL LAB HEMETOLOGY METHOD 04/23/2025 12:36 PM [facility] NRBC 0.0 <1.0 % LAB HEMETOLOGY METHOD 04/23/2025 12:36 PM EDT [facility] NRBC Absolute 0.00 <0.10 K/mcL LAB HEMETOLOGY METHOD 04/23/2025 12:36 PM EDT [facility] Blood Venous blood specimen / Unknown Venipuncture / Unknown 04/23/2025 6:20 AM EDT 04/23/2025 10:31 AM EDT us Rikki CHACON LAB BLOOD ORDERABLES Final R esult [facility] [address] [place] [address], [place] [phone] * (ABNORMAL) Iron and TIBC (04/21/2025 5:38 AM EDT) Iron 75 50 - 160 mcg/dL LAB CHEMISTRY METHOD 04/21/2025 11:20 AM EDT [facility] TIBC 385 250 - 450 mcg/dL LAB CHEMISTRY METHOD 04/21/2025 11:20 AM EDT [facility] Iron Saturation 19(L) 20 - 50 % LAB CHEMISTRY METHOD 04/21/2025 11:20 AM EDT [facility] Blood Venous blood specimen / Unknown Venipuncture / Unknown 04/21/2025 5:38 AM EDT 04/21/2025 9:48 AM EDT Frances CHACON LAB BLOOD ORDERABLES Final Resul t [facility] [address] [place] [address], [place] [phone] * Type and screen (04/19/2025 6:03 AM EDT) Only the most recent of2 resultswithin the time period is included. ABO Group O 04/19/2025 11:25 AM EDT [facility] Rh Type Positive 04/19/2025 11:25 AM EDT [facility] Antibody Screen Negative 04/19/2025 11:25 AM EDT [facility] Blood Venous blood specimen / Unknown Venipuncture / Unknown 04/19/2025 6:03 AM EDT 04/19/2025 9:58 AM EDT Toro Fernandez MD LAB BLOOD BANK TEST ORDERABLES Final Result [facility] [address] [place] [address], [place] [phone] * Magnesium (04/15/2025 6:42 AM EDT) Magnesium 2.2 1.9 - 2.6 mg/dL LAB CHEMISTRY METHOD 04/15/2025 1:13 PM EDT [facility] Blood Venous blood specimen / Unknown Venipuncture / Unknown 04/15/2025 6:42 AM EDT 04/15/2025 12:05 PM EDT Frances CHACON LAB BLOOD ORDERABLES Final Resul t [facility] [address] [place] [address], [place] [phone] * SST tube (04/14/2025 8:25 AM EDT) Extra Tube Hold for add-ons. 04/14/2025 10:01 AM EDT [facility] Comment:Auto resulted. Blood Venous blood specimen / Unknown 04/14/2025 8:25 AM EDT 04/14/2025 8:33 AM EDT Kerry Ji MD LAB BLOOD ORDERABLES Final R esult Performing Organization Address [facility]/ZIP Co de Phone Number [facility] [address] [place] [address], * (ABNORMAL) Hemoglobin and hematocrit (04/14/2025 8:25 AM EDT) Hemoglobin 7.1(L) 13.5 - 17.5 g/dL LAB HEMETOLOGY METHOD 04/14/2025 8:42 AM EDT [facility] Hematocrit 23.5(L) 42.0 - 54.0 % LAB HEMETOLOGY METHOD 04/14/2025 8:42 AM EDT [facility] Blood Venous blood specimen / Unknown Venipuncture / Unknown 04/14/2025 8:25 AM EDT 04/14/2025 8:32 AM EDT Estate Garrison DOLAN LAB BLOOD ORDERABLES Final R esult Performing Organization Address [facility] Co de Phone Number [facility] [address] [place] [address], * Tissue exam (04/11/2025 4:09 PM EDT) Pathologist [facility] Final Diagnosis Leg, Right, 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 Leg, Right, right [...] the specimen is a consent form authorizing [facility] to dispose of the limb. Fiberglass Insulation Installer sections are submitted in six cassettes. 1-skin, soft tissue and muscle from the margin-taken perpendicularly and bone marrow from the margin, 1+ multiple pieces 2-loan representative bony margins (tibia-one larger piece and tibia-two smaller pieces; en face, red ink use for embedding) and cross-section of peroneal artery, four pieces, following decalcification 3-sections of skin scars and macule towards margin, three pieces 4-previous amputation site and cross-section of anterior vessel with overlying skin including thrombus, two pieces 8-ymeza-oaldioep of the anterior tibial artery, four pieces, following decalcification 1-atdlr-xtynfuuj of posterior tibial artery, following decalcification, two pieces TS 04/16/2025 3:02 PM EDT [facility] Disclaimer Unless otherwise specified, all tissue is 10% NB formalin fixed and paraffin embedded. 04/16/2025 3:02 PM EDT [facility] Tissue Structure of right lower limb / Unknown 04/11/2025 4:09 PM EDT 04/12/2025 6:33 AM EDT us Ahmet Banks MD LAB PATHOLOGY ORDERABLES Final Result Performing Organization Address [facility] Co de Phone Number [facility] [address] [place] [address], [place] [phone] * TH AN LMA(NO CHARGE) (04/11/2025 3:48 PM EDT) Bridgette Ivy CRNA - 04/11/2025 3:48 PM EDT Bridgette [...] 04/11/2025 3:43 PMStop Time: 04/11/2025 3:43 PM Nathan Lucio DO ANESTHESIA ORDERABLES Final Result * Anti-Xa - Every 6 Hours (04/11/2025 12:42 PM EDT) Only the most recent of5 resultswithin the time period is included. Heparin Anti-Xa 0.55 0.30 - 0.70 I Unit/mL LAB COAGULATION METHOD 04/11/2025 1:18 PM EDT [facility] Blood Venous blood specimen / Unknown Venipuncture / Unknown 04/11/2025 12:42 PM EDT 04/11/2025 12:56 PM EDT Narrative [facility] - 04/11/2025 1:18 PM EDT Therapeutic range listed is for Unfractionated Heparin. LMW Heparin therapeutic range: 0.50-1.20 IU/mL Ju Valdez MD LAB BLOOD ORDERABLES Final Res ult Performing Organization Address [facility]/ZIP Co de Phone Number [facility] [address] [place] [address], [place] [phone] * Lavender tube (04/10/2025 4:37 PM EDT) Extra Tube Hold for add-ons. 04/10/2025 6:01 PM EDT [facility] Comment:Auto resulted. Blood Venous blood specimen / Unknown 04/10/2025 4:37 PM EDT 04/10/2025 4:48 PM EDT us Ju Valdez MD LAB BLOOD ORDERABLES Final Res ult Performing Organization Address [facility] Co de Phone Number [facility] [address] [place] [address], [place] [phone] * Light blue tube (04/10/2025 4:37 PM EDT) Extra Tube Hold for add-ons. 04/10/2025 6:01 PM EDT [facility] Comment:Auto resulted. Blood Venous blood specimen / Unknown 04/10/2025 4:37 PM EDT 04/10/2025 4:48 PM EDT us Ju Valdez MD LAB BLOOD ORDERABLES Final Res ult Performing Organization Address [facility]/ZIP Co de Phone Number [facility] [address] [place] [address], [place] [phone] * Creatine kinase (04/10/2025 4:37 PM EDT) Total CK 32 22 - 269 unit/L LAB CHEMISTRY METHOD 04/10/2025 5:20 PM EDT [facility] Blood Venous blood specimen / Unknown Venipuncture / Unknown 04/10/2025 4:37 PM EDT 04/10/2025 4:44 PM EDT us Ju Valdez MD LAB BLOOD ORDERABLES Final Res ult [facility] [address] [place] [address], [place] [phone] * Vascular US duplex lower extremity arteries [...] Signed Date: 04/10/2025 14:39 ET Workstation ID: [id number] Transcribed By: Self Edit Transcribed Date: 04/10/2025 [...] Signed Date: 04/10/2025 14:39 ET Workstation ID: [id number] Transcribed By: Self Edit Transcribed Date: 04/10/2025 14:32 ET us Ju Valdez MD CV VASCULAR PROCEDURES Final R esult * (ABNORMAL) Activated Partial Thromboplastin Time - STAT (04/10/2025 12:31 PM EDT) aPTT 46.6(H) 24.1 - 39.3 sec LAB COAGULATION METHOD 04/10/2025 3:07 PM EDT [facility] Blood Venous blood specimen / Unknown Venipuncture / Unknown 04/10/2025 12:31 PM EDT 04/10/2025 1:03 PM EDT us Joselyn CHACON LAB BLOOD ORDERABLES Fin al Result Performing Organization Address City/[facility]/ZIP Co de Phone Number [facility] [address] [place] [address], * Prothrombin time with INR (04/10/2025 12:31 PM EDT) [facility] Protime 11.5 10.6 - 13.9 sec LAB COAGULATION METHOD 04/10/2025 1:14 PM EDT [facility] INR 0.9 LAB COAGULATION METHOD 04/10/2025 1:14 PM EDT [facility] Blood Venous blood specimen / Unknown Venipuncture / Unknown 04/10/2025 12:31 PM EDT 04/10/2025 1:03 PM EDT Ju Valdez MD LAB BLOOD ORDERABLES Final Res ult Performing Organization Address [facility]/ZIP Co de Phone Number [facility] [address] [place] [address], [place] [phone] * Hemoglobin A1c (03/22/2024) [facility] Hemoglobin A1C 6.4 <=6.5 % Blood Venous blood specimen / Unknown Historical Provider LAB BLOOD ORDERABLES Rosa Isela l Result * HM Urine Albumin Creatinine Ratio (09/08/2023) [facility] Urine Albumin Creatinine Ratio Abstracted Historical Provider HEALTH MAINTENANCE Final Result * (ABNORMAL) Lipid panel (09/08/2023) [facility] LDL/HDL Ratio 4 0 - 4 Triglycerides 249(A) 0 - 150 mg/dL Cholesterol 130 0 - 200 mg/dL HDL 34(A) >=40 mg/dL LDL Cholesterol 47 0 - 100 mg/dL Blood Venous blood specimen / Unknown Historical Provider LAB BLOOD ORDERABLES Rosa Isela l Result * Diabetes Foot Exam (09/07/2023) Diabetes: Annual Foot Exam Abstracted us Historical Provider HEALTH MAINTENANCE Final Result from Last 3 Months or Most Recently Relevant to Health Maintenance Insurance MEDICARE [facility] Advance Directives Documents on File Type Date Recorded 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 DNR (Do Not Resuscitate) 02/12/2025 9:30 AM DNR (Do Not Resuscitate) 01/22/2025 9:00 AM Health Care Decision (hx) 07/03/2024 AD HARGROVE DIRECTIVE Health Care Decision (hx) 06/03/2024 AD HARGROVE DIRECTIVE Health Care Decision (hx) 06/03/2024 AD HARGROVE DIRECTIVE Health Care Decision (hx) 06/03/2024 AD HARGROVE DIRECTIVE * Full Code - Default (Latest Code Status on File) Date Activated Date Inactivated Comments 05/23/2025 10:03 PM 05/26/2025 3:13 PM This is ord er is used when code status has not been discussed with the patient, or code status is otherwise unknown/unconfirmed To update the patient's code status, place a code status order. Do not modify or discontinue any currently active code status orders. * No CPR/Do Not Intubate Date Activated Date Inactivated Comments 05/21/2025 11:11 PM 05/22/2025 4:24 PM This code s tatus was ascertained in the following way: Code status discussion: discussion with patient To update the patient's code status, place a code status order. Do not modify or discontinue any currently active code status orders. * Full Code - Default Date Activated Date Inactivated Comments 05/21/2025 9:50 PM 05/21/2025 11:11 PM This is ord er is used when code status has not been discussed with the patient, or code status is otherwise unknown/unconfirmed To update the patient's code status, place a code status order. Do not modify or discontinue any currently active code status orders. * Full Code - Default Date Activated Date Inactivated Comments 04/10/2025 3:50 [...] currently active code status orders. Care Teams Molding Room Supervisor Relationship Specialty Start Date End Date Diana Corona PA [address] [place] [id number] PCP - General Physician Assurance Assistant 04/10/25
--- OUTSIDE RECORDS SUMMARY | 2025-06-01 13:13 | XMS_ITS | Encounter Summary ---
Author Organization [facility] [place] [address] Care Team Providers Care Malted Milk Masher Name Role Phone Diana Corona Primary Care Provider [phone] Encounter Details Date Type Department Care Team (Late st Contact Info) Description 04/23/2025 Lab Requisition [facility] - Main Lab 299 [facility] [place] [address] Rikki Rosen PA [address] [phone] Encounter for other general examination Social History [...] 1:00 PM EDT Office Visit Vascular Surgery [facility] [address] [phone] Mary Lou Barragan PA [address] [address] 06/21/2025 9:15 AM EDT Clinical Support [facility] [address] [place] [address] 06/25/2025 11:00 AM EDT Office Visit Vascular Surgery [facility] 300 [facility] [address] [place] [address] Ahmet Banks MD [address] [place] [phone] documented as of this encounter Procedures Procedure Name Priority Date/Time Associated Diagnosis Comments COMPLETE BLOOD COUNT Routine 04/23/2025 6:20 AM EDT Encounter for other general examination BASIC METABOLIC PANEL Routine 04/23/2025 6:20 AM EDT Encounter for other general examination documented in this encounter Results * (ABNORMAL) Complete blood count (04/23/2025 6:20 AM EDT) WBC 7.8 4.8 - 10.8 K/mcL LAB HEMETOLOGY METHOD 04/23/2025 12:36 PM EDT [facility] RBC 2.30(L) 4.50 - 5.50 M/mcL LAB HEMETOLOGY METHOD 04/23/2025 12:36 PM EDT [facility] Hemoglobin 7.7(L) 13.5 - 17.5 g/dL LAB HEMETOLOGY METHOD 04/23/2025 12:36 PM T [facility] Hematocrit 25.3(L) 42.0 - 54.0 % LAB HEMETOLOGY METHOD 04/23/2025 12:36 PM [facility] MCV 108.6(H) 79.0 - 98.0 FL LAB HEMETOLOGY METHOD 04/23/2025 12:36 PM EDT [facility] MCH 33.0(H) 27.0 - 32.0 pcg LAB HEMETOLOGY METHOD 04/23/2025 12:36 PM [facility] MCHC 30.4(L) 32.0 - 37.0 g/dL LAB HEMETOLOGY METHOD 04/23/2025 12:36 PM [facility] RDW 17.2(H) 11.0 - 15.0 % LAB HEMETOLOGY METHOD 04/23/2025 12:36 PM EDT [facility] Platelets 360 130 - 400 K/mcL LAB HEMETOLOGY METHOD 04/23/2025 12:36 PM EDT [facility] MPV 9.8 7.0 - 11.0 FL LAB HEMETOLOGY METHOD 04/23/2025 12:36 PM EDT [facility] NRBC 0.0 <1.0 % LAB HEMETOLOGY METHOD 04/23/2025 12:36 PM EDT [facility] NRBC Absolute 0.00 <0.10 K/mcL LAB HEMETOLOGY METHOD 04/23/2025 12:36 PM EDT [facility] Blood Venous blood specimen / Unknown Venipuncture / Unknown 04/23/2025 6:20 AM EDT 04/23/2025 10:31 AM EDT us Rikki CHACON LAB BLOOD ORDERABLES Final R esult [facility] [address] [place] [address], * (ABNORMAL) Basic metabolic panel (04/23/2025 6:20 AM EDT) Sodium 138 133 - 145 mmol/L LAB CHEMISTRY METHOD 04/23/2025 2:56 PM T [facility] Potassium 4.3 3.5 - 5.5 mmol/L LAB CHEMISTRY METHOD 04/23/2025 2:56 PM [facility] Chloride 105 96 - 110 mmol/L LAB CHEMISTRY METHOD 04/23/2025 2:56 PM [facility] CO2 25 21 - 32 mmol/L LAB CHEMISTRY METHOD 04/23/2025 2:56 PM [facility] Anion Gap 8 3 - 11 LAB CHEMISTRY METHOD 04/23/2025 2:56 PM EDT [facility] Glucose 95 70 - 100 mg/dL LAB CHEMISTRY METHOD 04/23/2025 2:56 PM EDT [facility] BUN 36(H) 5 - 25 mg/dL LAB CHEMISTRY METHOD 04/23/2025 2:56 PM EDT [facility] Creatinine 1.68(H) 0.70 - 1.30 mg/dL LAB CHEMISTRY METHOD 04/23/2025 2:56 PM EDT [facility] eGFR 40(L) >=60 mL/min/1. 73m2 LAB CHEMISTRY METHOD 04/23/2025 2:56 PM EDT [facility] Comment:Calculation based on the Chronic Kidney Disease Epidemiology Collaboration (CKD-EPI) equation refit without adjustment for race. BUN/Creatinine Ratio 21.4 LAB CHEMISTRY METHOD 04/23/2025 2:56 PM EDT [facility] Calcium 8.7 8.5 - 10.5 mg/dL LAB CHEMISTRY METHOD 04/23/2025 2:56 PM EDT [facility] Blood Venous blood specimen / Unknown Venipuncture / Unknown 04/23/2025 6:20 AM EDT 04/23/2025 10:31 AM EDT Rikki CHACON LAB BLOOD ORDERABLES Final R esult [facility] [address] [place] [address], documented in this encounter Visit Diagnoses Diagnosis [...] documented as of this encounter Care Teams Malted Milk Masher Relationship Specialty Start Date End Date Cj, Diana E, PA [address] [place] [address] PCP - General Physician Zigzag Topstitcher 04/10/25 documented as of this encounter
--- OUTSIDE RECORDS SUMMARY | 2025-06-01 13:13 | XMS_ITS | Encounter Summary ---
Author Organization [facility] Address [address] [place] [address] Phone Care Team Providers Care Body Coverer Name Role Phone Jaya Brock MD Primary Care Provider Encounter Details Date Type Department Care Team (Latest Contact Info) Description 12/11/2020 Ancillary Orders [facility] [address] [facility] [address] Floor, [address] [place] [address] Kash Boles MD [address] [place] [phone] [email or web address] Sick sinus syndrome Social History Tobacco Use Types Packs/Day Years [...] as of this encounter Visit Diagnoses Diagnosis Sick sinus syndrome Sinoatrial node dysfunction documented in this encounter Care Teams Body Coverer Relationship Specialty Start Date End Date Jaya Brock MD [address] [place] [address] PCP - General 09/07/19 documented as of this encounter Additional Source Comments The information contained in this document represents components of the legal health record. It is not the complete legal health record.[facility]
--- OUTSIDE RECORDS SUMMARY | 2025-06-01 13:13 | XMS_ITS | Encounter Summary ---
Author Organization [facility] [place] [address] Care Team Providers Care Stacker Driver Name Role Phone Diana Corona Primary Care Provider [phone] Encounter Details Date Type Department Care Team (Late st Contact Info) Description 04/22/2025 Lab Requisition [facility] - Main Lab 299 [facility] [place] [address] Frances Meléndez PA [address] [place] [address] Encounter for other general examination Social History [...] Entry Date Author No 02/05/2025 8:35 PM Klelie Gaines RN documented in this encounter Plan of Treatment Upcoming Encounters Date Type Department Care Team (Late st Contact Info) Description 06/06/2025 1:00 PM EDT Office Visit Vascular Surgery [facility] 300 [facility] [address] [place] [address] Mary Lou Barragan PA [address] [address] 06/21/2025 9:15 AM EDT Clinical Support [facility] [address] [place] [phone] 06/25/2025 11:00 AM EDT Office Visit Vascular Surgery [facility] 300 [facility] [address] [place] [address] Ahmet Banks MD [address] [place] [phone] documented as of this encounter Procedures Procedure Name Priority Date/Time Associated Diagnosis Comments COMPLETE BLOOD COUNT Routine 04/22/2025 5:53 AM EDT Encounter for other general examination documented in this encounter Results * (ABNORMAL) Complete blood count (04/22/2025 5:53 AM EDT) Pathologist [facility] WBC 7.2 4.8 - 10.8 K/mcL LAB HEMETOLOGY METHOD 04/22/2025 9:01 AM [facility] RBC 2.30(L) 4.50 - 5.50 M/mcL LAB HEMETOLOGY METHOD 04/22/2025 9:01 AM [facility] Hemoglobin 7.3(L) 13.5 - 17.5 g/dL LAB HEMETOLOGY METHOD 04/22/2025 9:01 AM [facility] Hematocrit 24.2(L) 42.0 - 54.0 % LAB HEMETOLOGY METHOD 04/22/2025 9:01 AM [facility] MCV 106.6(H) 79.0 - 98.0 FL LAB HEMETOLOGY METHOD 04/22/2025 9:01 AM [facility] MCH 32.2(H) 27.0 - 32.0 pcg LAB HEMETOLOGY METHOD 04/22/2025 9:01 AM [facility] MCHC 30.2(L) 32.0 - 37.0 g/dL LAB HEMETOLOGY METHOD 04/22/2025 9:01 AM [facility] RDW 16.8(H) 11.0 - 15.0 % LAB HEMETOLOGY METHOD 04/22/2025 9:01 AM [facility] Platelets 339 130 - 400 K/mcL LAB HEMETOLOGY METHOD 04/22/2025 9:01 AM EDT [facility] MPV 10.0 7.0 - 11.0 FL LAB HEMETOLOGY METHOD 04/22/2025 9:01 AM EDT [facility] NRBC 0.0 <1.0 % LAB HEMETOLOGY METHOD 04/22/2025 9:01 AM EDT [facility] NRBC Absolute 0.00 <0.10 K/mcL LAB HEMETOLOGY METHOD 04/22/2025 9:01 AM EDT [facility] Blood Venous blood specimen / Unknown Venipuncture / Unknown 04/22/2025 5:53 AM EDT 04/22/2025 8:40 AM EDT us Frances CHACON LAB BLOOD ORDERABLES Final Resul t [facility] [address] [place] [address], documented in this encounter Visit Diagnoses Diagnosis [...] documented as of this encounter Care Teams Stacker Driver Relationship Specialty Start Date End Date Diana Corona PA [address] [place] [phone] PCP - General Physician Gantry Rigger 04/10/25 documented as of this encounter
--- OUTSIDE RECORDS SUMMARY | 2025-06-01 13:13 | XMS_ITS | Encounter Summary ---
Author Organization [facility] [place] [address] Care Team Providers Care Base Draw Operator Name Role Phone Diana Corona Primary Care Provider [phone] Encounter Details Date Type Department Care Team (Late st Contact Info) Description 04/16/2025 Lab Requisition [facility] - Main Lab 299 [facility] [place] [address] Rikki Rosen PA [address] [phone] Encounter for other general examination Social History [...] 1:00 PM EDT Office Visit Vascular Surgery [facility] [address] [address] Mary Lou Barragan PA [address] [address] 06/21/2025 9:15 AM EDT Clinical Support [facility] 271 [place] [address] 06/25/2025 11:00 AM EDT Office Visit Vascular Surgery [facility] 300 [facility] 210 [place] [address] hAmet Banks MD [address] [place] [phone] documented as of this encounter Procedures Procedure Name Priority Date/Time Associated Diagnosis Comments CBC WITH AUTO DIFFERENTIAL Routine 04/16/2025 6:10 AM EDT Encounter for other general examination CBC AND DIFFERENTIAL Routine 04/16/2025 6:10 AM EDT Encounter for other general examination documented in this encounter Results * (ABNORMAL) CBC auto differential (04/16/2025 6:10 AM EDT) WBC 7.1 4.8 - 10.8 K/mcL LAB HEMETOLOGY METHOD 04/16/2025 12:45 PM EDT [facility] RBC 2.20(L) 4.50 - 5.50 M/mcL LAB HEMETOLOGY METHOD 04/16/2025 12:45 PM EDT [facility] Hemoglobin 7.2(L) 13.5 - 17.5 g/dL LAB HEMETOLOGY METHOD 04/16/2025 12:45 PM EDT [facility] Hematocrit 23.2(L) 42.0 - 54.0 % LAB HEMETOLOGY METHOD 04/16/2025 12:45 PM EDT [facility] MCV 105.9(H) 79.0 - 98.0 FL LAB HEMETOLOGY METHOD 04/16/2025 12:45 PM EDT [facility] MCH 32.9(H) 27.0 - 32.0 pcg LAB HEMETOLOGY METHOD 04/16/2025 12:45 PM EDT [facility] MCHC 31.0(L) 32.0 - 37.0 g/dL LAB HEMETOLOGY METHOD 04/16/2025 12:45 PM T [facility] RDW 15.7(H) 11.0 - 15.0 % LAB HEMETOLOGY METHOD 04/16/2025 12:45 PM EDT [facility] Platelets 198 130 - 400 K/mcL LAB HEMETOLOGY METHOD 04/16/2025 12:45 PM EDT [facility] MPV 10.7 7.0 - 11.0 FL LAB HEMETOLOGY METHOD 04/16[facility]25 [facility] NRBC 0.0 <1.0 % LAB HEMETOLOGY METHOD 04/16/2025 12:45 PM EDT [facility] NRBC Absolute 0.00 <0.10 K/mcL LAB HEMETOLOGY METHOD 04/16/2025 12:45 [facility] Neutrophils Relative 55.2 % LAB HEMETOLOGY METHOD 04/16/2025 12:45 [facility] Lymphocytes Relative 23.4 % LAB HEMETOLOGY METHOD 04/16/2025 12:45 [facility] Monocytes Relative 13.6 % LAB HEMETOLOGY METHOD 04/16/2025 12:45 PM [facility] Eosinophils Relative 6.9 % LAB HEMETOLOGY METHOD 04/16/2025 12:45 PM [facility] Basophils Relative 0.6 % LAB HEMETOLOGY METHOD 04/16/2025 12:45 PM [facility] Immature Granulocytes Relative 0.3 % LAB HEMETOLOGY METHOD 04/16/2025 12:45 PM EDT [facility] Neutrophils Absolute 3.95 1.50 - 7.00 K/mcL LAB HEMETOLOGY METHOD 04/16/2025 12:45 PM EDT [facility] Lymphocytes Absolute 1.67 1.00 - 5.00 K/mcL LAB HEMETOLOGY METHOD 04/16/2025 12:45 PM [facility] Monocytes Absolute 0.97 0.20 - 1.00 K/mcL LAB HEMETOLOGY METHOD 04/16/2025 12:45 PM EDT [facility] Eosinophils Absolute 0.49 0.00 - 0.50 K/mcL LAB HEMETOLOGY METHOD 04/16/2025 12:45 PM EDT [facility] Basophils Absolute 0.04 0.00 - 0.20 K/[facility] LAB HEMETOLOGY METHOD 04/16/2025 12:45 PM EDT [facility] Immature Granulocytes Absolute 0.02 0.00 - 0.03 K/[facility] LAB HEMETOLOGY METHOD 04/16/2025 12:45 PM EDT [facility] Blood Venous blood specimen / Unknown Venipuncture / Unknown 04/16/2025 6:10 AM EDT 04/16/2025 10:48 AM EDT us Rikki CHACON LAB BLOOD ORDERABLES Final R esult [facility] 299 [place] [address], documented in this encounter Visit Diagnoses Diagnosis [...] documented as of this encounter Care Teams Base Draw Operator Relationship Specialty Start Date End Date Diana Corona PA [address] [place] [address] PCP - General Physician Home Health Clinical Liaison 04/10/25 documented as of this encounter
--- OUTSIDE RECORDS SUMMARY | 2025-06-01 13:13 | XMS_ITS | Encounter Summary ---
Author Organization [facility] [place] [address] Care Team Providers Care Valve Maker Name Role Phone Diana Corona Primary Care Provider [phone] Reason for Visit * Reason Onset Date Comments provider call back 05/21/2025 Encounter Details Date Type Department Care Team (Late st Contact Info) Description 05/21/2025 Telephone [facility] [address] [place] [address] Andie Chua PA [address] [place], [place] [phone] Social History Tobacco Use Types Packs/Day Years [...] of Assessment Author No 02/05/2025 8:35 PM EDKellie Hoskins RN * Do you have serious difficulty walking or climbing stairs? Answer Date of Assessment Author No 02/05/2025 8:35 PM Klelie Gaines RN * Do you have serious [...] Kellie Gaines RN documented in this encounter Progress Notes * Reyna Stevens - 05/21/2025 9:04 AM EDT Patient called has a discharge on wound looks like puss and is red. Patient would like a call back before his post op on 05/25 documented in this encounter Plan of Treatment Upcoming Encounters Date Type Department Care Team (Late st Contact Info) Description 06/06/2025 1:00 PM EDT Office Visit [facility] [address] [place] [address] Mary Lou Barragan PA [address] [place] [address] 06/21/2025 9:15 AM EDT Clinical Support [facility] [address] [place] [phone] 06/25/2025 11:00 AM EDT Office Visit [facility] Surgery [facility] [address] [place] [phone] Ahmet Banks MD 230 [place] [address] documented as of this encounter Visit Diagnoses Not on filedocumented in this encounter Additional Health Concerns Infection Onset Date Last Indicated Resolved Time 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 05/21/2025 05/21/2025 05/24/2025 7:32 AM E DT Respiratory Rule-Out 05/23/2025 05/23/2025 025 11:46 PM EDT COVID-19 Rule-Out 05/23/2025 05/23/2025 05/23/2025 11:46 PM EDT documented as of this encounter Care Teams Valve Maker Relationship Specialty Start Date End Date Diana Corona PA [address] [place] [address] PCP - General Physician Utility Manager 04/10/25 documented as of this encounter
--- OUTSIDE RECORDS SUMMARY | 2025-06-01 13:13 | XMS_ITS | Patient Health Record ---
Author Organization [facility] Address [address] [facility] [place], [place] [address] Care Team Providers Care Medical Imaging Technician Name Role Phone Irving Swift MD Primary Care Provider Haroon Hatch Unavailable [phone] Allergies Allergen (clinical drug ingredient) Drug/Non Drug [...] Test Name Order Date Hemoglobin A1c 10/18/2015 [id number] NAIL, 1-5 10/18/2015 [id number] Plate 10/18/2015 [id number] SKIN LESIONS, OVER 4 10/18/19 16 [id number] DYSTROPHIC NAILS ANY # Insurance Providers Payer Name Payer Address Payer Phone Subscriber Number Group Number Insured Name Patient Relationship to Insured Coverage Start Date Coverage End Date Medicare National Govt Svcs [employer] [address] [place] [phone] [id number] Lyssa Mark Anthony Self - patient is the insured [employer] [address] [place] [address] [id number] Lyssa Mark Anthony Self - patient [...]
--- OUTSIDE RECORDS SUMMARY | 2025-06-01 13:13 | XMS_ITS | Patient Health Record ---
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) Active confirmed Problem Hypertensive heart disease without congestive heart failure (27220946) Hypertensive heart disease without heart failure (I11.9) Active confirmed Problem Atherosclerosis of coronary artery (360568066) 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 calcified coronary lesion (I25.84) Active confirmed Problem Hyperglycemia due to type 2 diabetes mellitus (714064406317249) Type 2 diabetes mellitus with hyperglycemia, without long-term current use of insulin (E11.65) Active confirmed Problem Laryngitis (67298125) Laryngitis (J04.0) Active confirmed Plan Of Treatment No Information Insurance Providers Payer Name Payer Address Payer Phone Subscriber Number Group Number Insured Name Patient Relationship to Insured Coverage Start Date Coverage End Date MEDICARE PART B [address] [address] [place] [address] [phone] [id number] Mark Anthony Omalley Self - patient is the insured [facility] [address] [place] [phone] [id number] Mark Anthony Omalley Self - patient is the insured Medical (General) History Medical History History ICD Code diabetes mellitus Coronary Artery Disease. 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
--- OUTSIDE RECORDS SUMMARY | 2025-06-01 13:13 | XMS_ITS | Encounter Summary ---
Author Organization [facility] Address [address] [place] [address] Phone Care Team Providers Care Histology Aide Name Role Phone Irving Swift DO Primary Care Provider [phone] Janee Berry MD, MPH Primary Care Provid er Unknown, Unknown Primary Care Provider Jaya Sanchez MD Primary Care Provider Encounter Details Date Type Department Care Team (Latest Contact Info) Description 07/24/2017 Ancillary Orders [facility] [address] [facility] [address] [place], [place] [phone] Santy Matos, NITIN [address] [place] [address] [address] [place] [address] Diagnosis unknown Social History Tobacco Use Types Packs/Day Years Used Date Smoking Tobacco: Never Assessed Sex and Gender Information Value Date Recorded Sex Assigned at Not on file Legal Sex Male 10:38 PM EDT Gender Identity Not on file Sexual Orientation Not on file documented as of this encounter Plan of Treatment Not on file documented as of this encounter Results * DEVICE CHECK: PPM REMOTE INTERROGATION WITH [employer] SENIOR OFFICER REVIEW (08/22/2018 2:20 PM EST) Narrative Ulisses Moy DO - 08/23/2018 2:09 PM EST Reason for appointment: Remote pacemaker interrogation HPI: Routine 3 month remote pacemaker interrogation. No device related complaints. Indication for device: SSS. Examination: Device type: Pacemaker Diabetes Physician: Medtronic Mode: DDDR LRL/UPL: 70/130 bpm Mode switches: 0 High V rates: 0 Thresholds, impedances, and sensing stable. Atrial pacin.1% Ventricular pacin.5% Battery: 5 yrs Additional comments: Device functioning appropriately. Normal device function. Patient to follow-up for continued monitoring every 3 months. Report prepared by Saúl Mckeon RN Santy Matos NP [facility] C[facility]IAC SERVICES ORDERABL ES Final Result documented in this encounter Visit Diagnoses Diagnosis Diagnosis unknown documented in this encounter Care Teams Histology Aide Relationship Specialty Start Date End Date Irving Swift DO [address] [place] [address] PCP - General 07/22/17 01/18/19 Janee Berry MD, MPH [address] [place] [address] [email or web address] PCP - General Family Medicine 01/19/19 05/23/19 Unknown, Unknown, [address] [place] [address] PCP - General 05/24/19 09/06/19 Jaya Brock MD 271 [place] [address] PCP - General 09/07/19 documented as of this encounter Additional Source Comments The information contained in this document represents components of the legal health record. It is not the complete legal health record.[facility]
--- OUTSIDE RECORDS SUMMARY | 2025-06-01 13:13 | XMS_ITS | Encounter Summary ---
Author Organization [facility] Address [address] [facility] [address] [place] [address] Phone Care Team Providers Care District Loss Prevention Manager Name Role Phone Irving Swift DO Primary Care Provider [phone] Janee Berry MD, MPH Primary Care Provid er Unknown, Unknown Primary Care Provider Jaya Sanchez MD Primary Care Provider Encounter Details Date Type Department Care Team (Latest Contact Info) Description 07/24/2017 Ancillary Orders [facility] [address] 3rd Floor, [address] [place] [address] Ulisses Lyn MD [address] [place] [address] [email or web address] Diagnosis unknown Social History Tobacco Use Types Packs/Day Years Used Date Smoking Tobacco: Never Assessed Sex and Gender Information Value Date Recorded Sex Assigned at Not on file Legal Sex Male 10:38 PM EDT Gender Identity Not on file Sexual Orientation Not on file documented as of this encounter Plan of Treatment Not on file documented as of this encounter Visit Diagnoses Diagnosis Diagnosis unknown documented in this encounter Care Teams District Loss Prevention Manager Relationship Specialty Start Date End Date Irving Swift DO 575 [place] [address] PCP - General 07/22/17 01/18/19 Janee Berry MD, MPH [address] [address] [email or web address] PCP - General Family Medicine 01/19/19 05/23/19 Unknown, Unknown, [address] [address] PCP - General 05/24/19 09/06/19 Jaya Brock MD [address] [place] [address] PCP - General 09/07/19 documented as of this encounter Additional Source Comments The information contained in this document represents components of the legal health record. It is not the complete legal health record.[facility]
--- OUTSIDE RECORDS SUMMARY | 2025-06-01 13:13 | XMS_ITS | Encounter Summary ---
Author Organization [place] [address] Care Team Providers Care Black Off Worker Name Role Phone Diana Corona Primary Care Provider [phone] Encounter Details Date Type Department Care Team (Late st Contact Info) Description 04/24/2025 Lab Requisition [facility] - Main Lab [address] [facility] [place] [address] Reyna Ford PA [address] [place] [phone] Unspecified atrial fibrillation (CMS/HCC V24, CMS/HCC V28) Social History Tobacco Use Types Packs/Day Years [...] 1:00 PM EDT Office Visit Vascular Surgery [facility] 300 [facility] 210 [place] [address] Mary Lou Barragan PA [address] [address] 06/21/2025 9:15 AM EDT Clinical Support [facility] 271 [place] [address] 06/25/2025 11:00 AM EDT Office Visit Vascular Surgery [facility] [address] [place] [address] Ahmet Banks MD [address] [place] [phone] documented as of this encounter Procedures Procedure Name Priority Date/Time Associated Diagnosis Comments VITAMIN B12 Routine 04/24/2025 6:02 AM EDT Unspecified atrial fibrillation (CMS/HCC V24, CMS/HCC V28) documented in this encounter Results * (ABNORMAL) Vitamin B12 (04/24/2025 6:02 AM EDT) Pathologist [facility] Vitamin B-12 1,498(H) 250 - 900 pcg/mL LAB CHEMISTRY METHOD 04/24/2025 12:00 PM EDT [facility] Blood Venous blood specimen / Unknown Venipuncture / Unknown 04/24/2025 6:02 AM EDT 04/24/2025 10:02 AM EDT us Reyna CHACON LAB BLOOD ORDERABLES Final Re sult [facility] [address] [place] [address], documented in this encounter Visit Diagnoses Diagnosis Unspecified atrial fibrillation (CMS/HCC V24, CMS/HCC V28) documented in this encounter Additional Health Concerns Infection Onset Date Last Indicated Resolved Time 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 05/21/2025 05/21/2025 05/24/2025 7:32 AM E DT Respiratory Rule-Out 05/23/2025 05/23/2025 025 11:46 PM EDT COVID-19 Rule-Out 05/23/2025 05/23/2025 05/23/2025 11:46 PM EDT documented as of this encounter Care Teams Black Off Worker Relationship Specialty Start Date End Date Diana Corona PA [address] [place] [address] PCP - General Physician Suppository Molding Machine Operator 04/10/25 documented as of this encounter
--- OUTSIDE RECORDS SUMMARY | 2025-06-01 13:13 | XMS_ITS | Encounter Summary ---
Author Organization [facility] Address [address] [facility] [address] [place] [address] Phone Care Team Providers Care Medical Tech Name Role Phone Jaya Brock MD Primary Care Provider Encounter Details Date Type Department Care Team (Latest Contact Info) Description 12/11/2020 Ancillary Orders [facility] [address] [facility] 3rd Floor, [address] [place] [address] Kash Boles MD [address] [place] [phone] [email or web address] Sick sinus syndrome Social History Tobacco Use [...] this encounter Results * DEVICE CHECK: PPM IN-HOME INTERROGATION (12/11/2020 10:30 AM EST) Narrative Kash Boles MD - 12/16/2020 10:40 PM EDT Reason for appointment: Remote pacemaker interrogation HPI: Routine 3 month remote pacemaker interrogation. No device related complaints. Indication for device: SSS. Examination: Device type: Pacemaker Metal Bonding Press Operator: Medtronic Mode: DDDR LRL/UPL: 70/130 bpm Mode switches: 0 High V rates: 0 Thresholds, impedances, and sensing stable. Atrial pacin.6% Ventricular pacin.6% Battery: 2 yrs Additional comments: Device functioning appropriately. Normal device function. Patient to follow-up with Charbel Dai of [facility], will transfer [facility] when requested Report prepared by Saúl Mckeon RN us Kash Boles MD CV CARDIAC SERVICES ORDER АННА Final Result documented in this encounter Visit Diagnoses Diagnosis Sick sinus syndrome Sinoatrial node dysfunction Sick sinus syndrome Sinoatrial node dysfunction documented in this encounter Care Teams Medical Tech Relationship Specialty Start Date End Date Jaya Brock MD 271 [place] [address] PCP - General 09/07/19 documented as of this encounter Additional Source Comments The information contained in this document represents components of the legal health record. It is not the complete legal health record.[facility]
--- OUTSIDE RECORDS SUMMARY | 2025-06-01 13:13 | XMS_ITS | Encounter Summary ---
Author Organization [facility] Address [address] [place] [address] Phone Care Team Providers Care Hoop Maker Machine Name Role Phone Irving Swift DO Primary Care Provider [phone] Janee Berry MD, MPH Primary Care Provid er Unknown, Unknown Primary Care Provider Jaya Sanchez MD Primary Care Provider Encounter Details Date Type Department Care Team (Latest Contact Info) Description 10/13/2017 Ancillary Orders [facility] 22 [facility] 3rd Floor, [address] [place] [address] Ulisses Lyn MD 22 [place] [address] [email or web address] Complete heart block Social History Tobacco Use Types Packs/Day Years [...] Results * DEVICE CHECK: PPM IN-HOME INTERROGATION (10/11/2017 12:19 PM EST) Narrative Ulisses Lyn MD - 10/13/2017 1:05 PM EST Reason for appointment: Remote pacemaker interrogation HPI: Routine 3 month remote pacemaker interrogation. No device related complaints. Indication for device SSS Examination: Device type: pacemaker Director Of Golf: MDT Thresholds, impedances, and sensing stable. Mode switches: 0 High V rates: 0 Alerts: 0 DDDR 70/130 Atrial pacing 99.4 % of the time. Ventricular pacing 17.6 % of the time. Battery: Longevity is stable 6 yrs . Normal device function. Patient to follow-up for continued monitoring. Ulisses Lyn MD CV CARDIAC SERVICES ORDER АННА Final Result documented in this encounter Visit Diagnoses Diagnosis Diagnosis unknown Complete heart block Atrioventricular block, complete Complete heart block Atrioventricular block, complete documented in this encounter Care Teams Hoop Maker Machine Relationship Specialty Start Date End Date Irving Swift DO 575 [place] [address] PCP - General 07/22/17 01/18/19 Janee Berry MD, MPH [address] [address] [email or web address] PCP - General Family Medicine 01/19/19 05/23/19 Unknown, Unknown, [address] [place] [address] PCP - General 05/24/19 09/06/19 Jaya Brock MD 271 [place] [address] PCP - General 09/07/19 documented as of this encounter Additional Source Comments The information contained in this document represents components of the legal health record. It is not the complete legal health record.[facility]
--- OUTSIDE RECORDS SUMMARY | 2025-06-01 13:13 | XMS_ITS | Encounter Summary ---
Author Organization [facility] [place] [address] Care Team Providers Care Welfare Eligibility Interviewer Name Role Phone Diana Corona Primary Care Provider [phone] Encounter Details Date Type Department Care Team (Late st Contact Info) Description 04/21/2025 Lab Requisition [facility] - Main Lab 299 [facility] [place] [address] Frances Meléndez PA [address] [place] [address] Encounter for other general examination [...] 1:00 PM EDT Office Visit Vascular Surgery [facility] 300 [facility] 210 [place] [address] Mary Lou Barragan PA [address] [address] 06/21/2025 9:15 AM EDT Clinical Support [facility] 271 [place] [address] 06/25/2025 11:00 AM EDT Office Visit Vascular Surgery [facility] 300 [facility] 210 [place] [address] Ahmet Banks MD [address] [place] [phone] documented as of this encounter Procedures Procedure Name Priority Date/Time Associated Diagnosis Comments IRON AND TIBC Routine 04/21/2025 5:38 AM EDT Encounter for other general examination documented in this encounter Results * (ABNORMAL) Iron and TIBC (04/21/2025 5:38 AM EDT) Iron 75 50 - 160 mcg/dL LAB CHEMISTRY METHOD 04/21/2025 11:20 AM EDT [facility] TIBC 385 250 - 450 mcg/dL LAB CHEMISTRY METHOD 04/21/2025 11:20 AM EDT [facility] Iron Saturation 19(L) 20 - 50 % LAB CHEMISTRY METHOD 04/21/2025 11:20 AM EDT [facility] Blood Venous blood specimen / Unknown Venipuncture / Unknown 04/21/2025 5:38 AM EDT 04/21/2025 9:48 AM EDT Frances CHACON LAB BLOOD ORDERABLES Final Resul t [facility] 299 [place] [address], documented in this encounter Visit Diagnoses Diagnosis [...] documented as of this encounter Care Teams Welfare Eligibility Interviewer Relationship Specialty Start Date End Date Diana Corona PA [address] [place] [address] PCP - General Physician Veterans Service Representative 04/10/25 documented as of this encounter
--- OUTSIDE RECORDS SUMMARY | 2025-06-01 13:13 | XMS_ITS | Encounter Summary ---
Author Organization [facility] [place] [address] Care Team Providers Care Care Management Associate Name Role Phone Diana Corona Primary Care Provider [phone] Encounter Details Date Type Department Care Team (Late st Contact Info) Description 04/15/2025 Lab Requisition [facility] - Main Lab 299 [facility] [place] [address] Frances Meléndez PA [address] [place] [address] Encounter for other general examination [...] 1:00 PM EDT Office Visit Vascular Surgery [facility] 300 [facility] 210 [place] [address] Mary Lou Barragan PA [address] [address] 06/21/2025 9:15 AM EDT Clinical Support [facility] [address] [place] [address] 06/25/2025 11:00 AM EDT Office Visit Vascular Surgery [facility] 300 [facility] 210 [place] [address] Ahmet Banks MD [address] [place] [phone] documented as of this encounter Procedures Procedure Name Priority Date/Time Associated Diagnosis Comments CBC WITH AUTO DIFFERENTIAL Routine 04/15/2025 6:42 AM EDT Encounter for other general examination CBC AND DIFFERENTIAL Routine 04/15/2025 6:42 AM EDT Encounter for other general examination MAGNESIUM Routine 04/15/2025 6:42 AM EDT Encounter for other general examination COMPREHENSIVE METABOLIC PANEL Routine 04/15/2025 6:42 AM EDT Encounter for other general examination documented in this encounter Results * (ABNORMAL) CBC auto differential (04/15/2025 6:42 AM EDT) WBC 8.2 4.8 - 10.8 K/mcL LAB HEMETOLOGY METHOD 04/15/2025 12:46 PM EDT [facility] RBC 2.20(L) 4.50 - 5.50 M/mcL LAB HEMETOLOGY METHOD 04/15/2025 12:46 PM [facility] Hemoglobin 7.3(L) 13.5 - 17.5 g/dL LAB HEMETOLOGY METHOD 04/15/2025 12:46 PM [facility] Hematocrit 23.7(L) 42.0 - 54.0 % LAB HEMETOLOGY METHOD 04[facility]15[facility]25 12:[facility] MCV 106.3(H) 79.0 - 98.0 FL LAB HEMETOLOGY METHOD 04/15/2025 12:46 [facility] MCH 32.7(H) 27.0 - 32.0 pcg LAB HEMETOLOGY METHOD 04/15/2025 12:46 PM [facility] MCHC 30.8(L) 32.0 - 37.0 g/dL LAB HEMETOLOGY METHOD 04/15/2025 12:46 PM [facility] RDW 15.9(H) 11.0 - 15.0 % LAB HEMETOLOGY METHOD 04/15/2025 12:46 PM [facility] Platelets 180 130 - 400 K/mcL LAB HEMETOLOGY METHOD 04/15/2025 12:46 PM [facility] MPV 10.6 7.0 - 11.0 FL LAB HEMETOLOGY METHOD 04/15/2025 12:46 PM [facility] NRBC 0.0 <1.0 % LAB HEMETOLOGY METHOD 04/15/2025 12:46 PM [facility] NRBC Absolute 0.00 <0.10 K/mcL LAB HEMETOLOGY METHOD 04/15/2025 12:46 PM [facility] Neutrophils Relative 65.3 % LAB HEMETOLOGY METHOD 04/15/2025 12:46 PM [facility] Lymphocytes Relative 17.8 % LAB HEMETOLOGY METHOD 04/15/2025 12:46 PM [facility] Monocytes Relative 11.4 % LAB HEMETOLOGY METHOD 04/15/2025 12:46 PM [facility] Eosinophils Relative 4.5 % LAB HEMETOLOGY METHOD 04/15/2025 12:46 PM [facility] Basophils Relative 0.5 % LAB HEMETOLOGY METHOD 04/15/2025 12:46 PM [facility] Immature Granulocytes Relative 0.5 % LAB HEMETOLOGY METHOD 04/15/2025 12:46 PM [facility] Neutrophils Absolute 5.35 1.50 - 7.00 K/mcL LAB HEMETOLOGY METHOD 04/15/2025 12:46 PM [facility] Lymphocytes Absolute 1.46 1.00 - 5.00 K/mcL LAB HEMETOLOGY METHOD 04/15/2025 12:46 PM EDT [facility] Monocytes Absolute 0.93 0.20 - 1.00 K/[facility] LAB HEMETOLOGY METHOD 04/15/2025 12:46 PM EDT [facility] Eosinophils Absolute 0.37 0.00 - 0.50 K/[facility] LAB HEMETOLOGY METHOD 04/15/2025 12:46 PM EDT [facility] Basophils Absolute 0.04 0.00 - 0.20 K/[facility] LAB HEMETOLOGY METHOD 04/15/2025 12:46 PM EDT [facility] Immature Granulocytes Absolute 0.04(H) 0.00 - 0.03 K/[facility] LAB HEMETOLOGY METHOD 04/15/2025 12:46 PM EDT [facility] Blood Venous blood specimen / Unknown Venipuncture / Unknown 04/15/2025 6:42 AM EDT 04/15/2025 12:05 PM EDT us Frances CHACON LAB BLOOD ORDERABLES Final Resul t [facility] [address] [place] [address], [place] [phone] * Magnesium (04/15/2025 6:42 AM EDT) Magnesium 2.2 1.9 - 2.6 mg/dL LAB CHEMISTRY METHOD 04/15/2025 1:13 PM EDT [facility] Blood Venous blood specimen / Unknown Venipuncture / Unknown 04/15/2025 6:42 AM EDT 04/15/2025 12:05 PM EDT us Frances CHACON LAB BLOOD ORDERABLES Final Resul t [facility] [address] [place] [address], [place] [phone] * (ABNORMAL) Comprehensive metabolic panel (04/15/2025 6:42 AM EDT) Sodium 138 133 - 145 mmol/L LAB CHEMISTRY METHOD 04/15/2025 1:24 PM [facility] Potassium 4.2 3.5 - 5.5 mmol/L LAB CHEMISTRY METHOD 04/15/2025 1:24 PM [facility] Chloride 107 96 - 110 mmol/L LAB CHEMISTRY METHOD 04/15/2025 1:24 PM [facility] CO2 26 21 - 32 mmol/L LAB CHEMISTRY METHOD 04/15/2025 1:24 PM [facility] Anion Gap 5 3 - 11 LAB CHEMISTRY METHOD 04/15/2025 1:24 PM [facility] Glucose 115(H) 70 - 100 mg/dL LAB CHEMISTRY METHOD 04/15/2025 1:24 PM [facility] BUN 28(H) 5 - 25 mg/dL LAB CHEMISTRY METHOD 04/15/2025 1:24 PM [facility] Creatinine 1.49(H) 0.70 - 1.30 mg/dL LAB CHEMISTRY METHOD 04/15/2025 1:24 PM [facility] eGFR 46(L) >=60 mL/min/1. 73m2 LAB CHEMISTRY METHOD 04/15/2025 1:24 PM [facility] Comment:Calculation based on the Chronic Kidney Disease Epidemiology Collaboration (CKD-EPI) equation refit without adjustment for race. BUN/Creatinine Ratio 18.8 LAB CHEMISTRY METHOD 04/15/2025 1:24 PM [facility] Calcium 8.6 8.5 - 10.5 mg/dL LAB CHEMISTRY METHOD 04/15/2025 1:24 PM [facility] AST (SGOT) 60(H) 10 - 42 unit/L LAB CHEMISTRY METHOD 04/15/2025 1:24 PM EDT [facility] Comment:Results verified by repeat testing ALT (SGPT) 23 10 - 60 unit/L LAB CHEMISTRY METHOD 04/15/2025 1:24 PM EDT [facility] Alkaline Phosphatase 41(L) 42 - 121 unit/L LAB CHEMISTRY METHOD 04/15/2025 1:24 PM EDT [facility] Total Protein 5.9(L) 6.0 - 8.0 g/dL LAB CHEMISTRY METHOD 04/15/2025 1:24 PM EDT [facility] Albumin 2.8(L) 3.2 - 5.0 g/dL LAB CHEMISTRY METHOD 04/15/2025 1:24 PM EDT [facility] Total Bilirubin 0.6 0.0 - 1.4 mg/dL LAB CHEMISTRY METHOD 04/15/2025 1:24 PM EDT [facility] Blood Venous blood specimen / Unknown Venipuncture / Unknown 04/15/2025 6:42 AM EDT 04/15/2025 12:05 PM EDT Frances CHACON LAB BLOOD ORDERABLES Final Resul t [facility] [address] [place] [address], documented in this encounter Visit Diagnoses Diagnosis [...] documented as of this encounter Care Teams Care Management Associate Relationship Specialty Start Date End Date Diana Corona PA [address] [place] [address] PCP - General Physician Rn Registry 04/10/25 documented as of this encounter
--- OUTSIDE RECORDS SUMMARY | 2025-06-01 13:13 | XMS_ITS | Encounter Summary ---
Author Organization [facility] Address [address] [facility] [address] [place] [address] Phone Care Team Providers Care Hospitality Team Member Name Role Phone Irving Swift DO Primary Care Provider [phone] Janee Berry MD, MPH Primary Care Provid er Unknown, Unknown Primary Care Provider Jaya Sanchez MD Primary Care Provider Encounter Details Date Type Department Care Team (Late st Contact Info) Description 10/13/2017 Ancillary [facility] [address] [place] [address] Ulisses Lyn MD 22 [facility] [place] [address] [email or web address] Social History Tobacco Use Types Packs/Day Years [...] on filedocumented in this encounter Care Teams Hospitality Team Member Relationship Specialty Start Date End Date Irving Swift DO 575 [place] [address] PCP - General 07/22/17 01/18/19 Janee Berry MD, MPH [address] [facility] [address] [place] [address] [email or web address] PCP - General Family Medicine 01/19/19 05/23/19 Unknown, Unknown, [address] [address] PCP - General 05/24/19 09/06/19 Jaya Brock MD [address] [place] [address] PCP - General 09/07/19 documented as of this encounter Additional Source Comments The information contained in this document represents components of the legal health record. It is not the complete legal health record.[facility]
--- OUTSIDE RECORDS SUMMARY | 2025-06-01 13:13 | XMS_ITS | Encounter Summary ---
Author Organization [facility] [place] [address] Care Team Providers Care Felt Machine Mechanic Name Role Phone Diana Corona Primary Care Provider Reason for Visit * Reason Onset Date Comments Provider Call Back 05/28/2025 Encounter Details Date Type Department Care Team (Late st Contact Info) Description 05/28/2025 Telephone Vascular Surgery - [place] [address] [place] [address] Andie Chua PA [address] [place], [place] [phone] Social History Tobacco Use Types Packs/Day Years [...] hearing? Answer Date of Assessment Author No 05/23/2025 5:29 PM EDT Ball RN * Are you blind or do you have serious difficulty seeing, even when wearing glasses? Answer Date of Assessment Author No 05/23/2025 5:29 PM EDT Ball RN * Do you have serious difficulty walking or climbing stairs? Answer Date of Assessment Author Yes 05/23/2025 5:29 PM EDT Ball RN * Do you have serious difficulty dressing or bathing? Answer Date of Assessment Author No 05/23/2025 5:29 PM EDT Ball RN * Because of a physical, mental, or emotional condition, do you have serious difficulty doing errandsalone such as visiting the doctor? Answer Date of Assessment Author No 05/23/2025 5:29 PM EDT Ball RN documented as of this encounter Mental Status * Because of a physical, mental, or emotional condition, do you have serious difficulty concentrating, remembering, or making decisions? (5 years old or older) Answer Entry Date Author No 05/23/2025 5:29 PM EDT Ball RN documented in this encounter Progress Notes * Guillermo Hendricks MA - 05/28/2025 4:16 PM EDT Ok to go every other day with bandage change. * Cezar Ortiz - 05/28/2025 3:45 PM EDT Received a call from Sugey, a VNA at [facility], requesting clarification on wound careinstructions. Currently VNA services are visiting 3x a week, during these visits they will conduct dressing changes. However, dischagre instructyions state dressings should be changed daily. Sugey is wondering if every other day is okay, as that is when she will visit the pt. Please call back when possible and provide further instruction. documented in this encounter Plan of Treatment Upcoming Encounters Date Type Department Care Team (Late st Contact Info) Description 06/06/2025 1:00 PM EDT Office Visit Vascular Surgery - [place] [address] [facility] 210 [place] [phone] Mary Lou Barragan PA 299 [facility] 410 [place] [address] 06/21/2025 9:15 AM EDT Clinical Support [facility] 271 [place] [phone] 06/25/2025 11:00 AM EDT Office Visit Vascular Surgery [facility] 300 [facility] 210 [place] [phone] Ahmet Bakns MD 230 [place] [address] documented as of this encounter Visit Diagnoses Not on filedocumented in this encounter Care Teams Felt Machine Mechanic Relationship Specialty Start Date End Date Diana Corona PA [address] [place] [address] PCP - General Physician Cabin Agent 04/10/25 documented as of this encounter
--- OUTSIDE RECORDS SUMMARY | 2025-06-01 13:13 | XMS_ITS | Encounter Summary ---
Author Organization [facility] Address [address] [place] [address] Phone Care Team Providers Care Landscape Account Manager Name Role Phone Jaya Brock MD Primary Care Provider Encounter Details Date Type Department Care Team (Late st Contact Info) Description 11/26/2020 Ancillary Orders Non-Invasive Cardiology [address] [place] [address] Ulisses Lyn MD [address] [place] [address] [email or web address] Sick sinus syndrome Social History Tobacco Use [...] dysfunction documented in this encounter Care Teams Landscape Account Manager Relationship Specialty Start Date End Date Jaya Brock MD [address] [place] [address] PCP - General 09/07/19 documented as of this encounter Additional Source Comments The information contained in this document represents components of the legal health record. It is not the complete legal health record.[facility]
--- OUTSIDE RECORDS SUMMARY | 2025-06-01 13:13 | XMS_ITS | Patient Health Record ---
Author Organization [facility] Address [address] [place] [address] Care Team Providers Care Smoking Tobacco Packer Hand Name Role Phone Jeniffer(inactive) Irving DOLAN Primary Care Provider U Jonas Trotter [phone] Allergies Allergen (clinical drug ingredient) Drug/Non Drug [...] Risk Notes Problem Diverticulosis of colon (finding) (933952294) Diverticulosis of colon (without mention of hemorrhage) (562.10) Active confirmed Problem History of polyp of colon (situation) (208719167) Personal history of colonic polyps (V12.72) Active confirmed Problem Special screenin g for malignant neoplasms, colon (V76.51) Active confirmed Plan Of Treatment Future Test Test Name Order Date COLONOSCOPY 12/01/2011 Insurance Providers Payer Name Payer Address Payer Phone Subscriber Number Group Number Insured Name Patient Relationship to Insured Coverage Start Date Coverage End Date MEDICARE OF [place] [address] [place] [address] [id number] CHERELLE SALAZAR Self - patient is the insured [facility] [address] [place] [address] [phone] [id number] CHERELLE SALAZAR Self - patient is the insured Medical (General) History Medical History History ICD Code CAD-VT's in 1996 and 2001; multiple cath 's with stents-last time in 2009 Peripheral vascular disease No Diabetes, CVA, lung disease, renal di sease gout HTN hyperlipidemia arthritis back pain colon polyps ischemic colitis as above Surgical History Surgery Date(Month/Year) CABG 1996 Bilateral LE Bypass in 2009 hernia pacemaker back and neck knee
--- OUTSIDE RECORDS SUMMARY | 2025-06-01 13:13 | XMS_ITS | Clinical Summary ---
Author Organization [facility] Address [address] 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 Assessment & Plan (05/24/2019 2:01 PM EDT): [...] routine labs prior to his leaving to [place]. Peripheral vascular disease 12/30/2017 Overview (07/28/2018): 09/2010 [...] EDT) SODIUM 145 133 - 146 mmol/L [facility] CHLORIDE 106 96 - 108 mmol/L [facility] POTASSIUM 4.9 3.3 - 5.1 mmol/L [facility] CO2 26 21 - 35 mmol/L [facility] BUN 31(H) 6 - 19 mg/dL [facility] CREATININE 1.60(H) 0.5 - 1.5 mg/dL [facility] GLUCOSE 134(H) 70 - 99 mg/dL [facility] CALCIUM 9.7 8.4 - 10.3 mg/dL [facility] EGFR 40(L) >59 mL/min/1.7 3m2 [facility] Comment:Estimated glomerular filtration rate calculated using the CKD-EPI equation. ANION GAP 18 10 - 20 mmol/L [facility] Blood 05/01/2020 3:53 PM EDT 05/01/2020 3:55 PM EDT us Jean Lucero MD LAB BLOOD ORDERABLES Final Resu lt [facility] [address] [place], [place] [phone] from Last 3 Months or Most Recently Relevant to Health Maintenance Insurance MEDICARE PART A & B [employer] MEDICARE SUPPLEMENT MEDICARE PART A & B [employer] MEDICARE SUPPLEMENT MEDICARE PART A & B [facility] MEDICARE SUPPLEMENT MEDICARE PART A & B [facility] [place] [id number] MEDICARE PART A & B [facility] [place] [id number] MEDICARE PART A & B Member Subscriber Plan / Payer ( fective 2002-Present) Name:Mark Anthony Omalley Member ID:[id number] Relation to Subscriber:Self Name:Mark Anthony Omalley Subscriber ID:[id number] Payer ID:[id number] Group ID:Not on file Type:Medicare Address: [employer] [address] [employer] MEDICARE SUPPLEMENT MEDICARE PART A & B [employer] MEDICARE SUPPLEMENT MEDICARE PART A & B [employer] [place] [id number] MEDICARE PART A & B [employer] MEDICARE SUPPLEMENT Care Teams Top Installer Relationship Specialty Start Date End Date Jaya Brock MD [address] [place] [address] PCP - General 09/07/19 Additional Source Comments The information contained in this document represents components of the legal health record. It is not the complete legal health record.[facility]
--- OUTSIDE RECORDS SUMMARY | 2025-06-01 13:13 | XMS_ITS | Encounter Summary ---
Author Organization [facility] Address [address] [place] [address] Phone Care Team Providers Care Neurodiagnostic Technician Name Role Phone Jaya Brock MD Primary Care Provider Encounter Details Date Type Department Care Team (Late st Contact Info) Description 12/11/2020 Procedure Pass Non-Invasive Cardiology [address] [place] [address] Social History Tobacco Use Types Packs/Day Years [...] on filedocumented in this encounter Care Teams Neurodiagnostic Technician Relationship Specialty Start Date End Date Jaya Brock MD [address] [place] [address] PCP - General 09/07/19 documented as of this encounter Additional Source Comments The information contained in this document represents components of the legal health record. It is not the complete legal health record.[facility]
--- OUTSIDE RECORDS SUMMARY | 2025-06-01 13:13 | XMS_ITS | Encounter Summary ---
Author Organization [facility] Address [address] [facility] [address] [place] [address] Phone Care Team Providers Care Resort Desk Clerk Name Role Phone Irving Swift DO Primary Care Provider [phone] Janee Berry MD, MPH Primary Care Provid er Unknown, Unknown Primary Care Provider Jaya Sanchez MD Primary Care Provider Encounter Details Date Type Department Care Team (Late st Contact Info) Description 10/13/2017 Ancillary Orders Non-Invasive Cardiology [address] [place] [address] Ulisses Lyn MD [address] [place] [address] [email or web address] Complete heart block Social History Tobacco Use [...] this encounter Results * DEVICE CHECK: PPM IN-PERSON PROGRAMMING DUAL LEAD (05/02/2018 10:06 AM EDT) Narrative Ulisses Lyn MD - 05/04/2018 5:38 PM EDT Reason for appointment: In-office pacemaker interrogation HPI: Routine in-office pacemaker interrogation, using iterataive adjustment to test the function of the device and select optimal permanent programmed values. No device related complaints. Indication for device: Complete heart block Examination: Device type: Pacemaker Job Development Specialist: [employer] Mode: DDDR LRL/URL: 70/130 bpm Thresholds, impedances, and sensing stable. High V rates: 0 Mode switches: 1 brief, <.1% Atrial pacin% Ventricular pacin.4% Battery: 5.5 yrs RA RV LV Sensing Paced 10mV Threshold .75V@.4ms 1.25V@.4ms Impedance 420 ohms 714 ohms Additional comments or changes: Pacemaker functioning appropriately Patient will return for in-office device check in: 6 months Report prepared by Saúl Mckeon RN Ulisses Lyn MD [facility] ORDER АННА Final Result documented in this encounter Visit Diagnoses Diagnosis Complete heart block Atrioventricular block, complete Complete heart block Atrioventricular block, complete documented in this encounter Care Teams Resort Desk Clerk Relationship Specialty Start Date End Date Irving Swift DO [address] [place] [address] PCP - General 07/22/17 01/18/19 Janee Berry MD, MPH [address] [address] [email or web address] PCP - General Family Medicine 01/19/19 05/23/19 Unknown, MD Price [address] [address] PCP - General 05/24/19 09/06/19 Jaya Brock MD [address] [place] [address] PCP - General 09/07/19 documented as of this encounter Additional Source Comments The information contained in this document represents components of the legal health record. It is not the complete legal health record.[facility]
--- OUTSIDE RECORDS SUMMARY | 2025-06-01 13:14 | XMS_ITS | Encounter Summary ---
Author Organization [facility] Address [address] [facility] [address] [place] [address] Phone Care Team Providers Care Fiber Optics Supervisor Name Role Phone Irving Swift DO Primary Care Provider [phone]- [phone] Janee Berry MD, MPH Primary Care Provid er Unknown, Unknown Primary Care Provider Jaya Sanchez MD Primary Care Provider Encounter Details Date Type Department Care Team (Late st Contact Info) Description 12/28/2018 Ancillary Orders Non-Invasive Cardiology [address] [place] [address] Ulisses Lyn MD [address] [place] [address] [email or web address] Sick sinus syndrome Social [...] dysfunction documented in this encounter Care Teams Fiber Optics Supervisor Relationship Specialty Start Date End Date Irving Swift DO 5 [place] [address] PCP - General 07/22/17 01/18/19 Janee Berry MD, MPH [address] [place] [address] [email or web address] PCP - General Family Medicine 01/19/19 05/23/19 Unknown, Unknown, [address] [place] [address] PCP - General 05/24/19 09/06/19 Jaya Brock MD [address] [place] [address] PCP - General 09/07/19 documented as of this encounter Additional Source Comments The information contained in this document represents components of the legal health record. It is not the complete legal health record.[facility]
--- OUTSIDE RECORDS SUMMARY | 2025-06-01 13:14 | XMS_ITS | Encounter Summary ---
Author Organization [facility] Address [address] [place] [address] Phone Care Team Providers Care Drying Unit Felting Machine Operator Name Role Phone Jaya Brock MD Primary Care Provider Encounter Details Date Type Department Care Team (Late st Contact Info) Description 10/12/2020 Procedure Pass Non-Invasive Cardiology [address] [place] [address] Social History Tobacco Use Types Packs/Day Years [...] on filedocumented in this encounter Care Teams Drying Unit Felting Machine Operator Relationship Specialty Start Date End Date Jaya Brock MD [address] [place] [address] PCP - General 09/07/19 documented as of this encounter Additional Source Comments The information contained in this document represents components of the legal health record. It is not the complete legal health record.[facility]
--- OUTSIDE RECORDS SUMMARY | 2025-06-01 13:14 | XMS_ITS | Clinical Summary ---
Author Organization [facility] Address [address] [facility] [address] Phone Care Team Providers Care Inspector Metal Can Name Role Phone Mercy Grewal Primary Care Provider [phone] Allergies Active Allergy Reactions Criticality Noted Date [...] patient's age to complete this topic [place] [address] [place] [address] [place] [address] Medicare Medicare [facility] Care Teams Inspector Metal Can Relationship Specialty Start Date End Date Mercy Grewal [address] [place] [address] PCP - General 03/03/23
--- OUTSIDE RECORDS SUMMARY | 2025-06-01 13:14 | XMS_ITS | Encounter Summary ---
Author Organization [facility] Address [address] [place] [address] Phone Care Team Providers Care Molded Rubber Goods Cutter Name Role Phone Irving Swift DO Primary Care Provider [phone] Janee Berry MD, MPH Primary Care Provid er Unknown, Unknown Primary Care Provider Jaya Sanchez MD Primary Care Provider Encounter Details Date Type Department Care Team (Late st Contact Info) Description 12/28/2018 Ancillary Orders [facility] [address] [place] [address] Ulisses Lyn MD [address] [place] [address] [place] [address] [email or web address] Social History Tobacco Use Types Packs/Day Years [...] on filedocumented in this encounter Care Teams Molded Rubber Goods Cutter Relationship Specialty Start Date End Date Irving Swift DO [address] [place] [address] PCP - General 07/22/17 01/18/19 Janee Berry MD, MPH [address] [facility] [address] [place] [address] [email or web address] PCP - General Family Medicine 01/19/19 05/23/19 Unknown, Unknown, [address] [facility] [address] [place] [address] PCP - General 05/24/19 09/06/19 Jaya Brock MD [address] [place] [address] PCP - General 09/07/19 documented as of this encounter Additional Source Comments The information contained in this document represents components of the legal health record. It is not the complete legal health record.[facility]
--- OUTSIDE RECORDS SUMMARY | 2025-06-01 13:14 | XMS_ITS ---
Author Organization [address] [facility] Address [address] [place] [address] Phone Care Team Providers Care Television Host Name Role Phone Diana Corona Primary Care Provider [phone] Active Problems Problem Noted Date Diagnosed Date Amputation stump infection ([facility] V24, [facility] V28) 05/21/2025 Anemia 04/11/2025 Chronic renal insufficiency 04/11/2025 Pacemaker 04/11/2025 Chronic obstructive pulmonar y disease ([facility] V24, [facility] V28) 04/11/2025 Gangrene of toe of right foot ([facility] V24, [facility] V28) 02/05/2025 Occlusion of arterial bypass graft ([facility] V24) 10/26/2024 Acute deep vein thrombosis ( DVT) of femoral vein of right lower extremity ([facility] V24, [facility] V28) 10/26/2024 Diabetic neuritis ([facility] V24, [facility] V28) Hypertension 08/29/2024 Lumbar spondylosis 09/22/2022 Overview (08/29/2024): Last Assessment & Plan: Mr. Omalley underwent bilateral radiofrequency ablation on 10/08/2022 at [facility] with some improvement lasting 1 month. [...] Bacterial pneumonia 04/21/2022 CHF (congestive heart failure) ([facility] V24, [facility] V28) 04/21/2022 Gastrointestinal hemorrhage 04/21/2022 Neuropathy 04/21/2022 SSS (sick sinus syndrome) ([facility] V24, [facility] V28) 04/21/2022 Overview (08/29/2024): Last Assessment & Plan: This is been stable. He is status post pacemaker generator replacement as he was end-of-life. This is working well. He is feeling better now that his heart rates are in the higher range. Acute hypoxemic respiratory failure ([facility] V24, [facility] V28) 04/21/2022 Heart block AV complete ([facility] V24, [facility] V2 8) 04/01/2022 AAA (abdominal aortic aneurysm) ([facility] V24) Overview (08/29/2024): Last Assessment & Plan: He had a repeat echo done recently. This showed no changes when compared to before. He has been followed by vascular surgery. Malignant neoplasm of right vocal cord ([facility] V24, [facility] V28) 11/06/2020 Chronic kidney disease (CKD) stage G3b/A1, moderately decreased glomerular filtration rate (GFR) between 30-44 mL/min/1.73 square meter and albuminuria creatinine ratio les* ([facility] V24, [facility] V28) 11/06/2020 Anxiety 08/09/2020 BPH (benign prostatic hyperplasia) 08/09/2020 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 Peripheral vascular disease ([facility] V24) 2019 Overview (08/29/2024): Last Assessment & Plan: This is stable. Again this is being followed by Dr. Banks. He states that he will be getting a lower extremity arterial study done in the next couple weeks. ST elevation myocardial infa rction (STEMI) ([facility] V24, [facility] V28) 08/09/2020 Overview (08/29/2024): Last Assessment & [...] low cholesterol diet and exercise. 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 Past Plans No past plan information found. Radiation Treatments * No radiation treatments are documented for this patient in [facility]. Treatments may have been administered in another system. Lifetime Dose Tracking * Chemical Lifetime Dose Automatic Entry Manual Entr y Radiation 4,333.74 mGy 0 mGy 4,333.74 mGy Fluoro Time 11.2 minutes 0 minutes 11.2 minutes Resolved Problems Problem Noted Date Diagnosed Date Resolved Date Ischemic leg 01/08/2025 04/13/2025 Critical limb ischemia of ri ght lower extremity ([facility] V24, [facility] V28) 01/08/2025 Epistaxis 10/28/2024 10/28/2024
== END 2025-06-01 13:14 | disposition home or self-care (01) ==
LOC: HO.ENCR 12:45
PROVIDERS: Visit Provider Physician Assistant
DX: E11.22 Type 2 diabetes mellitus with diabetic chronic kidney disease (principal); N18.4 Chronic kidney disease, stage 4 (severe); Z79.4 Long term (current) use of insulin; I12.9 Hypertensive chronic kidney disease with stage 1 through stage 4 chronic kidney disease, or unspecified chronic kidney disease

== ENCOUNTER → 2025-06-01 12:45 | Outpatient (BNVA) | payer MEDICARE, OTHER, SELFPAY | PROVIDERS: Visit Provider Physician Assistant | DX: I12.9 Hypertensive chronic kidney disease with stage 1 through stage 4 chronic kidney disease, or unspecified chronic kidney disease (principal); E11.22 Type 2 diabetes mellitus with diabetic chronic kidney disease; N18.4 Chronic kidney disease, stage 4 (severe); Z79.4 Long term (current) use of insulin | CPT/HCPCS: 82947; 99212 ==

== ENCOUNTER → 2025-06-08 09:40 | Outpatient (BNV) | payer MEDICARE, OTHER, SELFPAY | PROVIDERS: PCP Physician Assistant Medical; Referring Provider Physician Assistant Medical; Visit Provider Nurse Practitioner Family | DX: D53.9 Nutritional anemia, unspecified (principal) | CPT/HCPCS: 99204; 99213 ==

== ENCOUNTER 2025-06-26 10:39 | Outpatient (REF) | payer MEDICARE, OTHER, SELFPAY ==
--- OUTSIDE RECORDS SUMMARY | 2025-06-19 14:22 | XMS_ITS | Encounter Summary ---
[facility] [place] [address] Care Team Providers Care Opener Verifier Packer Customs Name Role Phone Diana Corona Primary Care Provider [phone] Reason for Referral * Home Health (Routine) - Closed Specialty Diagnoses / Procedures Referred By Contac t Referred To Contact Home Health Services Diagnoses Amputation stump infection (CMS/HCC V24, [facility] V28) Kerry Ji MD [address] [place] [address] Phone: tel: fax: [facility] - [address] , [address] [place] [address] Phone: tel: fax: Referral ID Status Reason Start Date Expiration Date V isits Requested Visits Authorized [id number] Closed Consult and Treat 06/24/2025 06/24/2026 1 1 Reason for Visit * Reason Comments Wound Infection * Auth/Cert (Routine) Specialty Diagnoses / Procedures Referred By Contac t Referred To Contact Diagnoses Non-healing wound of amputation stump (CMS/HCC V24, CMS/HCC V28) Procedures . Kerry Ji MD [address] [place] [address] Phone: tel: fax: [facility] [address] [place] [address] Phone: tel: Referral ID Status Reason Start Date Expiration Date Visits Re quested Visits Authorized [id number] 1 1 Encounter Details Date Type Department Care Team (Latest Contact Info) Description 06/19/2025 2:22 PM EDT - 06/24/2025 2:10 PM EDT Hospital Encounter [facility] [address] [place] [address] Irving Lebron MD [address] [place] [id number] Naveen Dickinson MD [address] [place] [address] Kerry Ji MD [address] [place] [id number] Non-healing wound of amputation stump (CMS/HCC V24, [facility] V28) (Primary Dx); Amputation stump infection (CMS/HCC V24, [facility] V28) Discharge Disposition: Home-Health Care c Social History Tobacco Use Types Packs/Day Years Used Date Smoking Tobacco: Former Cigarettes 0 10/04/1953 - 10/04/1994 Smokeless Tobacco: Never Alcohol Use Standard Drinks/Week Comments No 0 (1 standard drink = 0.6 oz pur e alcohol) Food Risk Answer Date Recorded Within the past 12 months we worried whether our food would run out before we got money to buy more. Never true 06/21/2025 Within the past 12 months th e food we bought just didn't last and we didn't have money to get more. Never true 06/21/2025 Interpersonal Safety Answer Date Record ed Physical Abuse 06/19/2025 Verbal Abuse 06/19/2025 Sex and Gender Information Value Date Recorded Sex Assigned at Male 10/26/2024 4:21 PM EST Legal Sex Male 5:29 PM EST Gender Identity Male 10/26/2024 4:21 PM EST Sexual Orientation Straight 10/26/2024 4: 21 PM EST documented as of this encounter Last Filed Vital Signs Vital Sign Reading Time Taken Comments Blood Pressure 167/78 06/24/2025 7:17 AM EDT Pulse 69 06/24/2025 7:17 AM EDT Temperature 37 C (98.6 F) 06/24/2025 7:17 AM EDT Respiratory Rate 16 06/24/2025 7:17 AM EDT Oxygen Saturation 96% 06/24/2025 7:17 AM EDT Inhaled Oxygen Concentration - - Weight 81.7 kg (180 lb 3.2 oz) 06/19/2025 9:55 P M EDT Height 172.7 cm (5' 8 ) 06/19/2025 11:07 AM EDT Body Mass Index 27.4 06/19/2025 11:07 AM EDT documented in this encounter Functional Status * Are you [...] EDT Ball RN documented in this encounter Discharge Summaries * Kerry Ji MD - 06/24/2025 10:51 AM EDT Images from the original note were not included. [place] DISCHARGE SUMMARY Patient Information Mark Anthony Omalley : 1940 [84 y.o.] Admitting Provider Kerry iJ MD Discharge Provider Kerry Ji MD, Kerry Ji MD Primary Care Physician OSWALDO Roach Admission Date 06/19/2025 Discharge Date 06/24/2025 Primary/Secondary Diagnosis Consults: Dr. Banks - vascular surgeon Procedures: S/p surgical debridement of 06/20/[address] Banks and wound VAC placement. Additional trip to OR on 06/23/25 for debridement, washout and Vac placement. 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 Probably developed right BKA wound and he was hospitalized from 05/21 to 05/23/2025 with stump cellulitis. He was treated with ceftriaxone/vancomycin and discharged on Augmentin and doxycycline. He was admitted back on 05/25 to 05/26/2025 with fever and was treated with IV anti biotics for 48 hours and switch to Levaquin for another 7 days. He had been pursuing outpatient wound care and pictures sent by to Dr. Banks. Due to worsening nature of the wound patient was asked to go to the hospital and he was admitted on 06/19/2025 for surgical debridement and wound VAC placement. - Right BKA stump wounds/infection. Pt was not septic. He was treated with vancomycin and Zosyn. +prior MRSA nasal screen positive. S/p surgical debridement of 06/20/[address] Banks and wound VAC placement. Pt returned to OR on 06/23/25 for additional drainage, washout and Vac placement. No cultures were sent. Today pt is asking to go home. He reports that his pain is controlled well with 10mg oxycodone. He denies fevers/chills, sob or chest pain. Checked with Dr. Banks and he is okay pt to go home with wound vac. Suggested Bactrim but as pt isallergic to Bactrim and Tetra, he was okay to use Linezolid for 10 more days. Timoteo reviewed and he received 60 tablets of 5 mg oxycodone on 06/12/25. I asked pt to call his wifeand he did who confirmed that pt still had oxycodone at home. No oxycodone script will be provided as he has them at home and suggested to ask his outpatient provider if he is getting short of oxy. Also suggested to take 10mg Oxy Q 6 prn for the next couple of days and then reduce to 5 mg as before. He voiced understanding. Home with VNA Wound vac to be changed on Mondays, Wednesdays and Fridays. F/u with Rich as an outpatient. - DM2. On lantus/SSI. - CKD stage 3a. Baseline creatinine ~1.6-1.9. Stable and improved. No XAVIER - Chronic diastolic heart failure. Euvolemic. On Lasix - HTN. -Chronic microcytic anemia. Neuropathy. On gabapentin -Anxiety and depression. On duloxetine -GERD. On PPI -Dyslipidemia. -CAD/CABG. Stable 35 min spent on DC Follow-Up Instructions and Recommendations PCP in 1 week Follow Ups: [facility] - [address] [place] [address] [facility] [address] [facility] [address] [facility] [address] [place] [address] [facility] [address] [facility] [address] Test Results Pending At Discharge: Discharge Medications Medication List TAKE these medications aspirin 81 mg chewable tablet Chew 1 tablet (81 mg total) 1 (one) time each day. atenoloL 50 mg tablet Commonly known as: TENORMIN Take 1 tablet (50 mg total) by mouth at bedtime. atorvastatin 80 mg tablet Commonly known as: LIPITOR Take 1 tablet (80 mg total) by mouth at bedtime. * BD Ultra-Fine Micro Pen Needle 32 gauge x 1/4 needle Generic drug: pen needle, diabetic DIRECTED TWICE DAILY * BD Ev 2nd Gen Pen Needle 32 gauge x needle Generic drug: pen needle, diabetic USE DIRECTED TO INJECT INSULIN cyanocobalamin 500 mcg tablet Commonly known as: VITAMIN B-12 Take by mouth. 1000mg daily fenofibrate 145 mg tablet Commonly known as: TRICOR Take 1 tablet (145 mg total) by mouth 1 (one) time each day. flash glucose sensor kit USE DIRECTED EVERY 14 DAYS [employer] Vivek [employer] [place] misc Generic drug: flash glucose scanning reader 1 Product by Does not apply route every 14 days furosemide 20 mg tablet Commonly known as: LASIX Take 1 tablet (20 mg total) by mouth 1 (one) time each day. gabapentin 300 mg capsule Commonly known as: NEURONTIN Take 150 mg by mouth at bedtime. glucose sensor,implant-dexamet device 1 Product by Does not apply route every 14 days. lansoprazole [address] capsule Commonly known as: PREVACID Take 1 capsule (30 mg total) by mouth 1 (one) time each day. linezolid 600 mg tablet Commonly known as: ZYVOX Take 1 tablet (600 mg total) by mouth 2 (two) times a day for 10 days. LORazepam 0.5 mg tablet Commonly known as: ATIVAN Take 1 tablet (0.5 mg total) by mouth 2 (two) times a day. nitroglycerin 0.4 mg SL tablet Commonly known as: NITROSTAT Place 0.4 mg under the tongue every 5 minutes as needed. Nucynta ER 50 mg 12 hr tablet Generic drug: tapentadol ER Take 1 tablet (50 mg total) by mouth 2 (two) times a day. oxyCODONE 5 mg immediate release tablet Commonly known as: ROXICODONE Take 2 tablets (10 mg total) by mouth every 6 (six) hours if needed for severe pain. 10mg every 6 hours for severe pain as needed, in couple days, reduce to 5mg every 6 hours as needed for pain. Max Daily Amount: 40 mg Ozempic 2 mg/dose (8 mg/3 mL) injection pen Generic drug: semaglutide Inject 2 mg under the skin every 7 (seven) days. WEDNESDAY polyethylene glycol 17 gram packet Commonly known as: MIRALAX Take 17 g by mouth 1 (one) time each day. Tresiba FlexTouch U-200 200 unit/mL (3 mL) CONCENTRATED injection pen Generic drug: insulin degludec Inject 28 Units under the skin at bedtime as needed (HYPERGLYCEMIA). * This list has 2 medication(s) that are the same as other medications prescribed for you. Read thedirections carefully, and ask your doctor or other care provider to review them with you. ASK your doctor about these medications acetaminophen 500 mg tablet Commonly known as: TYLENOL Take 2 tablets (1,000 mg total) by mouth every 6 (six) hours if needed for mild pain or moderate pain. DULoxetine [address] capsule Commonly known as: CYMBALTA Take 1 capsule (60 mg total) by mouth 1 (one) time each day. senna-docusate 8.6-50 mg per tablet Commonly known as: PERICOLACE Take 2 tablets by mouth at bedtime. Physical Exam at time of Discharge General: Awake, NAD, Appears comfortable. psych: mood stable. Flat affect CVS: S1 S2 Ext: Right lower extremity/BKA stump with wound VAC in place PUL: No wheezes/crackles. CTA bl. GI: BS present. No distention. NT skin: As above. Vitals Vitals: 06/24/25 0717 BP: (!) 167/78 Pulse: 69 Resp: 16 Temp: 37 ??C (98.6 ??F) SpO2: 96% HEMATOLOGY Lab Results Component Value Date WBC 8.4 06/23/2025 HGB 10.2 (L) 06/23/2025 HCT 31.2 (L) 06/23/2025 MCV 99.0 (H) 06/23/2025 PLT 209 06/23/2025 INR 0.9 04/10/2025 CHEMISTRY Lab Results Component Value Date GLUCOSE 138 06/23/2025 NA 140 06/23/2025 K 3.6 06/23/2025 CO2 27 06/23/2025 CL 108 06/23/2025 BUN 23 06/23/2025 CREATININE 1.25 06/23/2025 EGFR 56 (L) 06/23/2025 CALCIUM 9.1 06/23/2025 MG 2.0 06/23/2025 PHOS 2.4 (L) 01/19/2025 ANIONGAP 5 06/23/2025 No results found. documented in this encounter Medications at Time of Discharge acetaminophen (TYLENOL) 500 mg tablet Take 2 tablets (1,000 mg total) by mouth every 6 (six) hours if needed for mild pain or moderate pain. 40 tablet 01/19/2025 aspirin 81 mg chewable tablet Chew 1 tablet (81 mg total) 1 (one) time each day. 09/18/2019 atenoloL (TENORMIN) 50 mg tablet Take 1 tablet (50 mg total) by mouth at bedtime. 08/05/2022 atorvastatin (LIPITOR) 80 mg tablet Take 1 tablet (80 mg total) by mouth at bedtime. 08/21/2022 BD Ev 2nd Gen Pen Needle 32 gauge x 32 needle USE DIRECTED TO INJECT INSULIN 02/27/2024 cyanocobalamin (VITAMIN B-12) 500 mcg tablet Take by mouth. 1000mg daily DULoxetine (CYMBALTA) [address] capsule Take 1 capsule (60 mg total) by mouth 1 (one) time each day. 04/24/2025 fenofibrate (TRICOR) 145 mg tablet Take 1 tablet (145 mg total) by mouth 1 (one) time each day. flash glucose scanning reader ([employer] Vivek 2 [place]) misc 1 Product by Does not apply route every 14 days 12/03/2022 flash glucose sensor kit USE DIRECTED EVERY 14 DAYS furosemide (LASIX) 20 mg tablet Take 1 tablet (20 mg total) by mouth 1 (one) time each day. 09/21/2022 gabapentin (NEURONTIN) 300 mg capsule Take 150 mg by mouth at bedtime. glucose sensor,implant-dex amet device 1 Product by Does not apply route every 14 days. 03/28/2024 insulin degludec (Tresiba FlexTouch U-200) 200 unit/mL (3 mL) CONCENTRATED injection pen Inject 28 Units under the skin at bedtime as needed (HYPERGLYCEMIA ). lansoprazole (PREVACID) [address] capsule Take 1 capsule (30 mg total) by mouth 1 (one) time each day. 12/31/2020 linezolid (ZYVOX) 600 mg tablet Take 1 tablet (600 mg total) by mouth 2 (two) times a day for 10 days. 20 each 06/24/2025 LORazepam (ATIVAN) 0.5 mg tablet Take 1 tablet (0.5 mg total) by mouth 2 (two) times a day. nitroglycerin (NITROSTAT) 0.[address] 0.4 mg under the tongue every 5 minutes as needed. Nucynta ER 50 mg 12 hr tablet Take 1 tablet (50 mg total) by mouth 2 (two) times a day. oxyCODONE (ROXICODONE) 5 mg immediate release tabletIndications: Amputation stump infection (CMS/HCC V24, CMS/HCC V28) Take 2 tablets (10 mg total) by mouth every 6 (six) hours if needed for severe pain. 10mg every 6 hours for severe pain as needed, in couple days, reduce to 5mg every 6 hours as needed for pain. Max Daily Amount: 40 mg 06/24/2025 Ozempic 2 mg/dose (8 mg/3 mL) injection pen Inject 2 mg under the skin every 7 (seven) days. WEDNESDAY pen needle, diabetic (BD Ultra-Fine Micro Pen Needle) 32 gauge x 1/4 needle DIRECTED TWICE DAILY 08/20/2022 polyethylene glycol (MIRALAX) 17 gram packet Take 17 g by mouth 1 (one) time each day. senna-docusate (PERICOLACE) 8.6-50 mg per tablet Take 2 tablets by mouth at bedtime. 60 each 02/09/2025 6 documented as of this encounter Ordered Prescriptions Prescription Sig Dispense Quantity Refills Last Filled Start Date End Date oxyCODONE (ROXICODONE) 5 mg immediate release tabletIndications: Amputation stump infection (CMS/HCC V24, CMS/HCC V28) Take 2 tablets (10 mg total) by mouth every 6 (six) hours if needed for severe pain. 10mg every 6 hours for severe pain as needed, in couple days, reduce to 5mg every 6 hours as needed for pain. Max Daily Amount: 40 mg 06/24/2025 linezolid (ZYVOX) 600 mg tablet Take 1 tablet (600 mg total) by mouth 2 (two) times a day for 10 days. 20 each 06/24/2025 5 documented in this encounter Discharge Disposition Disposition Code Departure Means Destination Comment s Home-Health Care [facility] Home documented in this encounter Progress Notes * Imani March RN - 06/24/2025 2:10 PM EDT Education provided with regards to scripts/meds/wound vac with home device and f/u appointments with at bedside. Patient and both acknowledged teach back. * Eli Barr RN - 06/24/2025 11:58 AM EDT Problem: Physical Regulation:Infection Management Goal: Signs and symptoms of infection will decrease Outcome: Progressing Goal: Complications related to the disease process, condition or treatment will be avoided or minimized Outcome: Progressing Goal: Diagnostic test results will improve Outcome: Progressing Problem: Skin Integrity: Skin Integrity Impairment Goal: Skin integrity will improve Outcome: Progressing Problem: Cognitive: Mathew Tino Fall Risk Goal: Mobility requiring assistance of person or device Outcome: Progressing Problem: Sensory: Acute Pain Goal: Pain level will improve or be tolerable Outcome: Progressing Goal: Ability to develop a pain control plan will improve Outcome: Progressing Problem: Skin Integrity: Pressure Injury Actual or Risk of Goal: Will not develop new pressure injury Outcome: Progressing Goal: Skin integrity will improve Outcome: Progressing Goal: Risk for impaired skin integrity will decrease Outcome: Progressing Problem: Activity:Pressure Injury Actual or Risk of Goal: Mobility will improve Outcome: Progressing Problem: Nutritional:Pressure Injury Actual or Risk of Goal: Nutritional status will improve Outcome: Progressing Problem: Patient Specific Problem: Pressure Injury Actual or Risk of Goal: Patient Specific Outcome Outcome: Progressing Goals: Identify possible barriers to meeting goals/advancing plan of care: plan to d/c today Stability of the patient: Moderately Stable - Low risk of patient condition declining or worsening End of Shift Summary: Patient alert and oriented. Cooperative with meds and plan of care. Medicatedas needed for pain, see emar. Wound vac to Right BKA incision site. Plan to d/c home with vac in place .Offers no other complaints. Care ongoing at this time. * Suzanne Olivares RN - 06/24/2025 11:15 AM EDT Pt medically cleared for discharge. Dispo is home with VNA services and wound vac supplied by [facility]. [facility] notified that pt will be discharged home today. NESSA scheduled for 06/25. Pt spouse to provide transportation. * Kerry Ji MD - 06/23/2025 1:42 PM EDT Images from the original note were not included. SANDIE PROGRESS NOTE Date: 06/23/2025 Author: Kerry Ji MD Patient ID: Mark Anthony Omalley is a 84 y.o. male : 1940 MR#: [id number] SUBJECTIVE CC: Follow-up right BKA wound Seen in the morning when patient returned from OR. He denied any pain. Denies pain in his leg/stump. ROS: Denies chest pain Denies shortness of breath No nausea or vomiting OBJECTIVE Vitals: Vitals: 06/23/25 1203 BP: (!) 153/66 Pulse: 70 Resp: Temp: SpO2: 99% Physical Exam: General: Awake and remains in bed. Not in acute distress and appeared comfortable. Awake. NAD psych: mood stable. Flat affect CVS: S1 S2 Ext: Right lower extremity/BKA stump with wound VAC in place PUL: No wheezes/crackles. GI: BS present. No distention. NT skin: As above. LAB RESULTS HEMATOLOGY Lab Results Component Value Date WBC 8.4 06/23/2025 HGB 10.2 (L) 06/23/2025 HCT 31.2 (L) 06/23/2025 MCV 99.0 (H) 06/23/2025 PLT 209 06/23/2025 CHEMISTRY Lab Results Component Value Date GLUCOSE 98 06/23/2025 NA 140 06/23/2025 K 3.6 06/23/2025 CO2 27 06/23/2025 CL 108 06/23/2025 BUN 23 06/23/2025 CREATININE 1.25 06/23/2025 EGFR 56 (L) 06/23/2025 CALCIUM 9.1 06/23/2025 MG 2.0 06/23/2025 PHOS 2.4 (L) 01/19/2025 ANIONGAP 5 06/23/2025 Current Medications: aspirin, 81 mg, oral, Daily atenoloL, 50 mg, oral, Nightly atorvastatin, 80 mg, oral, Nightly furosemide, 20 mg, oral, Daily gabapentin, 100 mg, oral, Nightly heparin (porcine), 5,000 Units, subcutaneous, q12h CLARY insulin glargine, 20 Units, subcutaneous, Nightly insulin lispro, 1-6 Units, subcutaneous, TID AC LORazepam, 0.5 mg, oral, BID multivitamin, 1 each, oral, Daily pantoprazole, 40 mg, oral, q AM AC piperacillin-tazobactam, 2.25 g, intravenous, q6h vancomycin, 1,000 mg, intravenous, q24h PRN medications: bisacodyL, dextrose 50%, dextrose 50%, dextrose, dextrose, glucagon injection, hydrALAZINE, HYDROmorphone, naloxone, ondansetron (ZOFRAN- ODT) disintegrating tablet OR ondansetron, oxyCODONE, oxyCODONE ASSESSMENT & PLAN 84-year-old male with PMH of CAD/CABG, complete heart block status post pacemaker, AAA status post endovascular repair, DM type II, CKD stage III, HTN, dyslipidemia, GERD, throat cancer s/p radiation, anxiety, DVT and severe PAD with multiple failed bypasses 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 Probably developed right BKA wound and he was hospitalized from 05/21 to 05/23/2025 with stump cellulitis. He was treated with ceftriaxone/vancomycin and discharged on Augmentin and doxycycline. He was admitted back on 05/25 to 05/26/2025 with fever and was treated with IV anti biotics for 48 hours and switch to Levaquin for another 7 days. He had been pursuing outpatient wound care and pictures sent by to Dr. Banks. Due to worsening nature of the wound patient was asked to go to the hospital and he was admitted on 06/19/2025 for surgical debridement and wound VAC placement. - Right BKA stump wounds/infection. Clinically not septic. on vancomycin and Zosyn. S/p surgical debridement of 06/20/[address] Banks and has wound VAC in place. Went to OR again for debridement and wound vac change. Operative note pending. Denied pain post op but likely d/t still recovering from anesthesia. Has 10mg oxyconone and dilaudid orders if pain recurs. Abx and DC plans as per vascular surgical team. - DM2. On lantus/SSI. POC. Low carbohydrate diet. - CKD stage 3a. Baseline creatinine ~1.6-1.9. Stable and improved. - Chronic diastolic heart failure. Euvolemic. On Lasix - HTN. -Chronic microcytic anemia. Neuropathy. On gabapentin -Anxiety and depression. On duloxetine -GERD. On PPI -Dyslipidemia. -CAD/CABG. Stable DVT pp:Heparin Code status: DNR/I Disposition: DC once okay from vascular surgical team. * Camila Kaur RN - 06/23/2025 8:59 AM EDT NEW BLACK SMALL WOUND VAC SPONGE APPLIED * Angel Abdi RN - 06/23/2025 6:45 AM EDT Problem: Physical Regulation:Infection Management Goal: Signs and symptoms of infection will decrease Outcome: Progressing Goal: Complications related to the disease process, condition or treatment will be avoided or minimized Outcome: Progressing Goal: Diagnostic test results will improve Outcome: Progressing Goals: Identify possible barriers to meeting goals/advancing plan of care: OR Stability of the patient: Moderately Stable - Low risk of patient condition declining or worsening End of Shift Summary: At approximately 0600, pt with c/o chest pain, stating pain radiated to l muna jaw. Pt described pain as sharp/pressure, 5/10. Provider made aware, vs obtained, EKG obtained and sent via haiku to provider, trops ordered as well, pt medicated with 0.25mg iv dilaudid with good effect, pt reported relief of symptoms approximately 30-40 minutes after initial complaints, vs remained stable, EKG reportedly not worrisome, pt reported relief with pain medication, lab alirio trops, awaiting trops, OR given report and informed of previous situation, pt brought to OR before trop were avaiable * OSWALDO Camacho - 06/23/2025 5:32 AM EDT Nurse notified patient was complaining of midsternal chest pain. Patient reports that it radiated to his left arm and jaw and felt similar to his previous heart attacks. He was very emotional prior to this episode of chest pain. It is not reproducible. EKG obtained showed 70 bpm AV dual paced rhythm with prolonged AV conduction. I ordered a dose of Dilaudid for his discomfort as he gets very nauseous and vomits for morphine as well as troponins which are pending. His vitals have been stable. * Kerry Ji MD - 06/22/2025 1:04 PM EDT Images from the original note were not included. SANDIE PROGRESS NOTE Date: 06/22/2025 Author: Kerry Ji MD Patient ID: Mark Anthony Omalley is a 84 y.o. male : 1940 MR#: [id number] SUBJECTIVE CC: pain No new complaints. Had increased pain during wound VAC change this morning. 5 mg oxycodone does nothelp. He reported at home he takes 10 mg and this will be adjusted. Later after I saw patient I was informed by vascular surgical team that he will not be going home today and instead will go to OR for further debridement based on how wound looked this morning. ROS: No shortness of breath No chest pain Some mild nausea No vomiting. OBJECTIVE Vitals: Vitals: 06/22/25 0802 BP: (!) 165/84 Pulse: 69 Resp: Temp: SpO2: Physical Exam: General: Awake. NAD psych: mood sad but stable CVS: S1 S2 Ext: Right lower extremity/BKA stump now has wound vac in place. Small sanguinous dc PUL: No wheezes/crackles. GI: BS present. ND NT skin: As above. LAB RESULTS HEMATOLOGY Lab Results Component Value Date WBC 6.3 06/21/2025 HGB 9.8 (L) 06/21/2025 HCT 31.2 (L) 06/21/2025 MCV 100.3 (H) 06/21/2025 PLT 203 06/21/2025 CHEMISTRY Lab Results Component Value Date GLUCOSE 128 (H) 06/21/2025 NA 143 06/21/2025 K 4.3 06/21/2025 CO2 25 06/21/2025 CL 109 06/21/2025 BUN 28 (H) 06/21/2025 CREATININE 1.36 (H) 06/21/2025 EGFR 51 (L) 06/21/2025 CALCIUM 8.9 06/21/2025 MG 2.2 04/15/2025 PHOS 2.4 (L) 01/19/2025 ANIONGAP 9 06/21/2025 Current Medications: aspirin, 81 mg, oral, Daily atenoloL, 50 mg, oral, Nightly atorvastatin, 80 mg, oral, Nightly furosemide, 20 mg, oral, Daily gabapentin, 100 mg, oral, Nightly heparin (porcine), 5,000 Units, subcutaneous, q12h CLARY insulin glargine, 20 Units, subcutaneous, Nightly insulin lispro, 1-6 Units, subcutaneous, TID AC LORazepam, 0.5 mg, oral, BID multivitamin, 1 each, oral, Daily pantoprazole, 40 mg, oral, q AM AC piperacillin-tazobactam, 2.25 g, intravenous, q6h vancomycin, 1,000 mg, intravenous, q24h PRN medications: bisacodyL, dextrose 50%, dextrose 50%, dextrose, dextrose, glucagon injection, HYDROmorphone, naloxone, ondansetron (ZOFRAN-ODT) disintegrating tablet OR ondansetron, oxyCODONE, oxyCODONE Fluids: ASSESSMENT & PLAN 84-year-old male with PMH of CAD/CABG, complete heart block status post pacemaker, AAA status post endovascular repair, DM type II, CKD stage III, HTN, dyslipidemia, GERD, throat cancer s/p radiation, anxiety, DVT and severe PAD with multiple failed bypasses 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 Probably developed right BKA wound and he was hospitalized from 05/21 to 05/23/2025 with stump cellulitis. He was treated with ceftriaxone/vancomycin and discharged on Augmentin and doxycycline. He was admitted back on 05/25 to 05/26/2025 with fever and was treated with IV anti biotics for 48 hours and switch to Levaquin for another 7 days. He had been pursuing outpatient wound care and pictures sent by to Dr. Banks. Due to worsening nature of the wound patient was asked to go to the hospital and he was admitted on 06/19/2025 for surgical debridement and wound VAC placement. - Right BKA stump wounds/infection. Clinically not septic. Currently on vancomycin and Zosyn. S/p surgical debridement of 06/20/[address] Banks and has wound VAC in place. Vac was changed todayand d/t appearance of the wound, surgical team is planning on further debridement tomorrow in OR. Increase oxycodone to 10mg Q4 hours. - DM2. On lantus/SSI. POC - CKD stage 3a. Baseline creatinine ~1.6-1.9. Stable and improved. - Chronic diastolic heart failure. Euvolemic. On Lasix - HTN. -Chronic microcytic anemia. Neuropathy. On gabapentin -Anxiety and depression. On duloxetine -GERD. On PPI -Dyslipidemia. -CAD/CABG. Stable DVT pp:Heparin Code status: DNR/I Disposition: DC once okay from vascular surgical team. * Suzanne Olivares RN - 06/22/2025 12:35 PM EDT DEV: 06/25 Barrier: pt to return to OR 06/[address] Banks, IV antibiotics Plan: home with [employer] and [employer] wound vac (home wound vac delivered to bedside 06/22) * OSWALDO Vizcarra - 06/22/2025 9:25 AM EDT Images from the original note were not included. Vascular Surgery Daily Progress Note LOS: 3 days Subjective No acute events overnight. Requiring IV dilaudid ~q4 hours. Principal Problem: Non-healing wound of amputation stump ([facility] V24, [facility] V28) Current Facility-Administered Medications: aspirin chewable tablet 81 mg, 81 mg, oral, Daily, OSWALDO Vizcarra, 81 mg at 06/22/25 0800 atenoloL (TENORMIN) tablet 50 mg, 50 mg, oral, Nightly, OSWALDO Vizcarra, 50 mg at 06/21/252019 atorvastatin (LIPITOR) tablet 80 mg, 80 mg, oral, Nightly, OSWALDO Vizcarra, 80 mg at 06/21/252018 bisacodyL (DULCOLAX) EC tablet 10 mg, 10 mg, oral, Daily PRN, OSWALDO Vizcarra dextrose (D50W) 50% injection 12.5 g, 12.5 g, intravenous, q15 min PRN, OSWALDO Vizcarra dextrose (D50W) 50% injection 25 g, 25 g, intravenous, q15 min PRN, OSWALDO Vizcarra dextrose 15 gram/60 mL oral solution 15 g, 15 g, oral, q15 min PRN, OSWALDO Vizcarra dextrose 15 gram/60 mL oral solution 30 g, 30 g, oral, q15 min PRN, OSWALDO Vizcarra furosemide (LASIX) tablet 20 mg, 20 mg, oral, Daily, Kerry Ji MD, 20 mg at 06/22/25 0800 gabapentin (NEURONTIN) capsule 100 mg, 100 mg, oral, Nightly, OSWALDO Vizcarra, 100 mg at 06/21/252019 glucagon HCL injection 1 mg, 1 mg, intramuscular, Once PRN, OSWALDO Vizcarra heparin (UFH) injection 5,000 Units, 5,000 Units, subcutaneous, q12h CLARY, OSWALDO Vizcarra, 5,000Units at 06/22/25 0800 HYDROmorphone (DILAUDID) injection 1 mg, 1 mg, intravenous, q3h PRN, Kerry Ji MD, 1 mg at 06/22/25 0409 insulin glargine (LANTUS) injection 20 Units, 20 Units, subcutaneous, Nightly, OSWALDO Vizcarra, 20 Units at 06/21/25 2019 insulin lispro injection 1-6 Units, 1-6 Units, subcutaneous, TID AC, OSWALDO Vizcarra, 1 Units at06/21/25 1152 LORazepam (ATIVAN) tablet 0.5 mg, 0.5 mg, oral, BID, OSWALDO Vizcarra, 0.5 mg at 06/22/25 0800 multivitamin tablet 1 tablet, 1 each, oral, Daily, Kerry Ji MD, 1 tablet at 06/22/25 0800 naloxone (NARCAN) injection 0.04 mg, 0.04 mg, intravenous, PRN, OSWALDO Vizcarra ondansetron ODT (ZOFRAN-ODT) disintegrating tablet 4 mg, 4 mg, oral, q8h PRN OR ondansetron (PF) (ZOFRAN) injection 4 mg, 4 mg, intravenous, q8h PRN, OSWALDO Vizcarra oxyCODONE (ROXICODONE) immediate release tablet 5 mg, 5 mg, oral, q4h PRN, Kerry Ji MD, 5 mg at 06/21/252018 pantoprazole (PROTONIX) EC tablet 40 mg, 40 mg, oral, q AM AC, OSWALDO Vizcarra, 40 mg at 06/22/25 0614 piperacillin-tazobactam (ZOSYN) 2.25 g in sodium chloride 0.9 % 100 mL IVPB, 2.25 g, intravenous, q6h, OSWALDO Vizcarra, Stopped at 06/22/25 0828 vancomycin (VANCOCIN) 1,000 mg in sodium chloride 0.9 % 250 mL IVPB, 1,000 mg, intravenous, q24h, OSWALDO Vizcarra, Stopped at 06/21/25 2259 Objective Vital signs in last 24 hours: Temp: 36.5 ??C (97.7 ??F) (06/22 0744) Heart Rate: 69 (06/22 0802) Resp: 17 (06/22 0502) BP: 165/84 (06/22 0802) Intake/Output last 3 shifts: No intake/output data recorded. Intake/Output this shift: I/O this shift: In: - Out: 600 [Urine:600] Physical Exam: General: Alert and oriented x 3, no acute distress, well-nourished HEENT: Normocephalic atraumatic Neck: No JVD, no carotid bruit, carotid pulses present Chest: Respiratory effort normal Cardiac: Regular rate rhythm Abdomen: Soft, nontender, non-distended Extremities: -Right upper extremity: 2+ radial artery pulses palpable. -Left upper extremity: 2+ radial artery pulses palpable. -Right lower extremity: 2+ femoral artery pulse palpable. S/p right BKA. Despite pre-medicating with IV dilaudid, patient did not tolerate very well and had significant pain. Wound vac changed using medium granufoam. One sponge applied to each wound and bridge dressing placed. Good seal. See image of wound below. No malodor. Muscle within wound bed appears non-viable. Lab Results Component Value Date WBC 6.3 06/21/2025 HGB 9.8 (L) 06/21/2025 HCT 31.2 (L) 06/21/2025 MCV 100.3 (H) 06/21/2025 PLT 203 06/21/2025 Lab Results Component Value Date GLUCOSE 128 (H) 06/21/2025 CALCIUM 8.9 06/21/2025 NA 143 06/21/2025 K 4.3 06/21/2025 CO2 25 06/21/2025 CL 109 06/21/2025 BUN 28 (H) 06/21/2025 CREATININE 1.36 (H) 06/21/2025 Assessment/Plan 84 y.o. male well known to the vascular surgery service s/p right BKA on 04/11/[address] 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 Patient's has been in close communication with Dr. Banks and sending updated wound images. After review of wound image today, it was recommended patient present to the ER for admission to medical service with plan for OR 06/20. 06/21: POD #1 right BKA wound debridement, washout and vac placement. No acute events overnight. Pain well controlled. Labs stable. Wound vac in place with good seal, scant serosanguinous output in canister. 06/22: POD #2 right BKA wound debridement, washout and vac placement. No acute events overnight. Requiring IV dilaudid ~q4 hours. Despite pre-medication before wound vac dressing change, patient did not tolerate very well. Muscle within wound bed appears non-viable. Recommendations: -NPO at midnight for OR 06/23 for right BKA stump I&D, washout, possible vac placement, possiblesecondary would closure, all necessary procedures. Consent signed in chart -Continue IV antibiotics for now, unclear if patient will require upon discharge -Continue pain control as needed Discussed with Dr. Banks. 25 minutes spent on patient encounter. Moderate complexity MDM. Cosigned by Ahmet Banks MD at 06/22/2025 3:56 PM EDT Associated attestation - Ahmet Banks MD - 06/22/2025 3:56 PM EDT Patient seen and examined. Chart reviewed. Imaging study reports appreciated and all images personally reviewed. I have formulated the plan of care. Case discussed with primary team. 30 minutes spenton patient encounter. 15 minutes spent in conjunction with PA. High complexity medical decision making * Kerry Ji MD - 06/21/2025 1:05 PM EDT Images from the original note were not included. SANDIE PROGRESS NOTE Date: 06/21/2025 Author: Kerry Ji MD Patient ID: Mark Anthony Omalley is a 84 y.o. male : 1940 MR#: [id number] SUBJECTIVE CC: pain Reports having pain in the right leg and was looking for pain medication. No nausea vomiting. No fevers ROS: No shortness of breath No chest pain OBJECTIVE Vitals: Vitals: 06/21/25 0800 BP: (!) 160/67 Pulse: 69 Resp: 17 Temp: 36.8 ??C (98.2 ??F) SpO2: 100% Physical Exam: General: Awake. NAD psych: mood sad but stable CVS: S1 S2 Ext: Right lower extremity/BKA stump now has wound vac in place. Sanguinous dc PUL: No wheezes/crackles. GI: BS present. ND NT skin: As above. LAB RESULTS HEMATOLOGY Lab Results Component Value Date WBC 6.3 06/21/2025 HGB 9.8 (L) 06/21/2025 HCT 31.2 (L) 06/21/2025 MCV 100.3 (H) 06/21/2025 PLT 203 06/21/2025 CHEMISTRY Lab Results Component Value Date GLUCOSE 128 (H) 06/21/2025 NA 143 06/21/2025 K 4.3 06/21/2025 CO2 25 06/21/2025 CL 109 06/21/2025 BUN 28 (H) 06/21/2025 CREATININE 1.36 (H) 06/21/2025 EGFR 51 (L) 06/21/2025 CALCIUM 8.9 06/21/2025 MG 2.2 04/15/2025 PHOS 2.4 (L) 01/19/2025 ANIONGAP 9 06/21/2025 Current Medications: aspirin, 81 mg, oral, Daily atenoloL, 50 mg, oral, Nightly atorvastatin, 80 mg, oral, Nightly [Held by provider] furosemide, 20 mg, oral, Daily gabapentin, 100 mg, oral, Nightly heparin (porcine), 5,000 Units, subcutaneous, q12h CLARY insulin glargine, 20 Units, subcutaneous, Nightly insulin lispro, 1-6 Units, subcutaneous, TID AC LORazepam, 0.5 mg, oral, BID pantoprazole, 40 mg, oral, q AM AC piperacillin-tazobactam, 2.25 g, intravenous, q6h vancomycin, 1,000 mg, intravenous, q24h PRN medications: bisacodyL, dextrose 50%, dextrose 50%, dextrose, dextrose, glucagon injection, HYDROmorphone, naloxone, ondansetron (ZOFRAN-ODT) disintegrating tablet OR ondansetron, oxyCODONE Fluids: ASSESSMENT & PLAN 84-year-old male with PMH of CAD/CABG, complete heart block status post pacemaker, AAA status post endovascular repair, DM type II, CKD stage III, HTN, dyslipidemia, GERD, throat cancer s/p radiation, anxiety, DVT and severe PAD with multiple failed bypasses 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 Probably developed right BKA wound and he was hospitalized from 05/21 to 05/23/2025 with stump cellulitis. He was treated with ceftriaxone/vancomycin and discharged on Augmentin and doxycycline. He was admitted back on 05/25 to 05/26/2025 with fever and was treated with IV anti biotics for 48 hours and switch to Levaquin for another 7 days. He had been pursuing outpatient wound care and pictures sent by to Dr. Banks. Due to worsening nature of the wound patient was asked to go to the hospital and he was admitted on 06/19/2025 for surgical debridement and wound VAC placement. - Right BKA stump wounds/infection. Clinically not septic. Currently on vancomycin and Zosyn. S/p surgical debridement of 06/20/[address] Banks and now has wound VAC in place. Adjusted pain medications as pt c/o pain. Next vac change on Wednesday. Defer to vascular team if he needs antibiotics on discharge - DM2. On lantus/SSI. POC - CKD stage 3a. Baseline creatinine ~1.6-1.9. Stable. - Chronic diastolic heart failure. Euvolemic. Resume Lasix - HTN. -Chronic microcytic anemia. Neuropathy. On gabapentin -Anxiety and depression. On duloxetine -GERD. On PPI -Dyslipidemia. -CAD/CABG. Stable DVT pp: reassess post op Code status: DNR/I Disposition: Possible DC tomorrow. * OSWALDO Vizcarra - 06/21/2025 10:11 AM EDT Vascular Surgery Daily Progress Note LOS: 2 days Subjective No acute events overnight. Pain well controlled. Principal Problem: Non-healing wound of amputation stump ([facility] V24, [facility] V28) Current Facility-Administered Medications: aspirin chewable tablet 81 mg, 81 mg, oral, Daily, OSWALDO Vizcarra, 81 mg at 06/21/25 08 atenoloL (TENORMIN) tablet 50 mg, 50 mg, oral, Nightly, OSWALDO Vizcarra, 50 mg at 06/20/252110 atorvastatin (LIPITOR) tablet 80 mg, 80 mg, oral, Nightly, OSWALDO Vizcarra, 80 mg at 06/20/252110 bisacodyL (DULCOLAX) EC tablet 10 mg, 10 mg, oral, Daily PRN, OSWALDO Vizcarra dextrose (D50W) 50% injection 12.5 g, 12.5 g, intravenous, q15 min PRN, OSWALDO Vizcarra dextrose (D50W) 50% injection 25 g, 25 g, intravenous, q15 min PRN, OSWALDO Vizcarra dextrose 15 gram/60 mL oral solution 15 g, 15 g, oral, q15 min PRN, OSWALDO Vizcarra dextrose 15 gram/60 mL oral solution 30 g, 30 g, oral, q15 min PRN, OSWALDO Vizcarra [Held by provider] furosemide (LASIX) tablet 20 mg, 20 mg, oral, Daily, OSWALDO Vizcarra gabapentin (NEURONTIN) capsule 100 mg, 100 mg, oral, Nightly, OSWALDO Vizcarra, 100 mg at 06/20/252111 glucagon HCL injection 1 mg, 1 mg, intramuscular, Once PRN, OSWALDO Vizcarra heparin (UFH) injection 5,000 Units, 5,000 Units, subcutaneous, q12h CLARY, OSWALDO Vizcarra, 5,000Units at 06/21/25 08 HYDROmorphone (DILAUDID) injection 1 mg, 1 mg, intravenous, q4h PRN, OSWALDO Vizcarra, 1 mg at 06/21/25 0800 insulin glargine (LANTUS) injection 20 Units, 20 Units, subcutaneous, Nightly, OSWALDO Vizcarra, 20 Units at 06/20/252121 insulin lispro injection 1-6 Units, 1-6 Units, subcutaneous, TID AC, OSWALDO Vizcarra lactated Ringer's infusion, 100 mL/hr, intravenous, Continuous, OSWALDO Vizcarra, Last Rate: 100 mL/hr at 06/20/25 1730, 100 mL/hr at 06/20/25 173 LORazepam (ATIVAN) tablet 0.5 mg, 0.5 mg, oral, BID, OSWALDO Vizcarra, 0.5 mg at 06/21/25 08 naloxone (NARCAN) injection 0.04 mg, 0.04 mg, intravenous, PRN, OSWALDO Vizcarra ondansetron ODT (ZOFRAN-ODT) disintegrating tablet 4 mg, 4 mg, oral, q8h PRN OR ondansetron (PF) (ZOFRAN) injection 4 mg, 4 mg, intravenous, q8h PRN, OSWALDO Vizcarra oxyCODONE (ROXICODONE) immediate release tablet 5 mg, 5 mg, oral, q6h PRN, OSWALDO Vizcarra, 5 mgat 06/21/25 0627 pantoprazole (PROTONIX) EC tablet 40 mg, 40 mg, oral, q AM AC, OSWALDO Vizcarra, 40 mg at 06/21/25 0626 piperacillin-tazobactam (ZOSYN) 2.25 g in sodium chloride 0.9 % 100 mL IVPB, 2.25 g, intravenous, q6h, OSWALDO Vizcarra, Stopped at 06/21/25 0952 vancomycin (VANCOCIN) 1,000 mg in sodium chloride 0.9 % 250 mL IVPB, 1,000 mg, intravenous, q24h, OSWALDO Vizcarra, Stopped at 06/20/25 9784 Objective Vital signs in last 24 hours: Temp: 36.8 ??C (98.2 ??F) (06/21 0800) Heart Rate: 69 (06/21 0800) Resp: 17 (06/21 08) BP: 160/67 (06/21 800) Intake/Output last 3 shifts: I/O last 3 completed shifts: In: 2460 (30.1 mL/kg) [P.O.:360; I.V.:1300 (15.9 mL/kg); IV Piggyback:800] Out: 625 (7.6 mL/kg) [Urine:625 (0.2 mL/kg/hr)] Weight: 81.7 kg Intake/Output this shift: No intake/output data recorded. Physical Exam: General: Alert and oriented x 3, no acute distress, well-nourished HEENT: Normocephalic atraumatic Neck: No JVD, no carotid bruit, carotid pulses present Chest: Respiratory effort normal Cardiac: Regular rate rhythm Abdomen: Soft, nontender, non-distended Extremities: -Right upper extremity: 2+ radial artery pulses palpable. -Left upper extremity: 2+ radial artery pulses palpable. -Right lower extremity: 2+ femoral artery pulse palpable. S/p right BKA. Wound vac in place. Good seal. Scant serosanguinous output in canister. Lab Results Component Value Date WBC 6.3 06/21/2025 HGB 9.8 (L) 06/21/2025 HCT 31.2 (L) 06/21/2025 MCV 100.3 (H) 06/21/2025 PLT 203 06/21/2025 Lab Results Component Value Date GLUCOSE 128 (H) 06/21/2025 CALCIUM 8.9 06/21/2025 NA 143 06/21/2025 K 4.3 06/21/2025 CO2 25 06/21/2025 CL 109 06/21/2025 BUN 28 (H) 06/21/2025 CREATININE 1.36 (H) 06/21/2025 Assessment/Plan 84 y.o. male well known to the vascular surgery service s/p right BKA on 04/11/[address] 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 Patient's has been in close communication with Dr. Banks and sending updated wound images. After review of wound image today, it was recommended patient present to the ER for admission to medical service with plan for OR 06/20. 06/21: POD #1 right BKA wound debridement, washout and vac placement. No acute events overnight. Pain well controlled. Labs stable. Wound vac in place with good seal, scant serosanguinous output in canister. Recommendations: -Wound vac change tomorrow -Continue IV antibiotics for now, unclear if patient will require upon discharge -Continue pain control as needed -Anticipate patient can be discharged tomorrow Discussed with Dr. Banks. 15 minutes spent on patient encounter. Low complexity MDM. Cosigned by Ahmet Banks MD at 06/21/2025 2:34 PM EDT * Kerry Ji MD - 06/20/2025 2:44 PM EDT Images from the original note were not included. SANDIE PROGRESS NOTE Date: 06/20/2025 Author: Kerry Ji MD Patient ID: Mark Anthony Omalley is a 84 y.o. male : 1940 MR#: [id number] SUBJECTIVE CC: pain at bedside. Patient has no new complaints. Reports pain in right BKA stump as well as in my toes . Phantom pain is not new. Currently he is n.p.o. and scheduled for surgical intervention. ROS: Denies fevers and chills No shortness of breath No chest pain No nausea OBJECTIVE Vitals: Vitals: 06/20/25 1315 BP: (!) 151/68 Pulse: 70 Resp: 14 Temp: SpO2: 97% Physical Exam: General: Awake. Not in acute distress psych: mood sad but stable EYEs: no icterus. CVS: S1 S2 Ext: Right lower extremity/BKA stump is covered with dressing and has knee Brace in place. PUL: CTA BL GI: BS present. ND NT skin: As above. Pictures reviewed LAB RESULTS HEMATOLOGY Lab Results Component Value Date WBC 7.9 06/20/2025 HGB 9.8 (L) 06/20/2025 HCT 31.4 (L) 06/20/2025 MCV 101.9 (H) 06/20/2025 PLT 194 06/20/2025 CHEMISTRY Lab Results Component Value Date GLUCOSE 108 (H) 06/20/2025 NA 144 06/20/2025 K 4.0 06/20/2025 CO2 28 06/20/2025 CL 109 06/20/2025 BUN 29 (H) 06/20/2025 CREATININE 1.44 (H) 06/20/2025 EGFR 48 (L) 06/20/2025 CALCIUM 8.9 06/20/2025 MG 2.2 04/15/2025 PHOS 2.4 (L) 01/19/2025 ANIONGAP 7 06/20/2025 Current Medications: [Transfer Hold] aspirin, 81 mg, oral, Daily [Transfer Hold] atenoloL, 50 mg, oral, Nightly [Transfer Hold] atorvastatin, 80 mg, oral, Nightly [Held by provider] furosemide, 20 mg, oral, Daily [Transfer Hold] gabapentin, 100 mg, oral, Nightly [Transfer Hold] heparin (porcine), 5,000 Units, subcutaneous, q12h CLARY [Transfer Hold] insulin glargine, 20 Units, subcutaneous, Nightly [Transfer Hold] insulin lispro, 1-6 Units, subcutaneous, TID AC [Transfer Hold] LORazepam, 0.5 mg, oral, BID [Transfer Hold] pantoprazole, 40 mg, oral, q AM AC [Transfer Hold] piperacillin-tazobactam, 2.25 g, intravenous, q6h [Transfer Hold] vancomycin, 1,000 mg, intravenous, q24h lactated Ringer's, 100 mL/hr, Last Rate: 100 mL/hr (06/20/25 1407) PRN medications: [Transfer Hold] bisacodyL, [Transfer Hold] dextrose 50%, [Transfer Hold] dextrose 50%, [Transfer Hold] dextrose, [Transfer Hold] dextrose, [Transfer Hold] glucagon injection, [Transfer Hold] HYDROmorphone, [Transfer Hold] naloxone, [Transfer Hold] ondansetron (ZOFRAN-ODT) disintegra ting tablet OR [Transfer Hold] ondansetron, [Transfer Hold] oxyCODONE, vancomycin Fluids: lactated Ringer's, 100 mL/hr, Last Rate: 100 mL/hr (06/20/25 1407) ASSESSMENT & PLAN 84-year-old male with PMH of CAD/CABG, complete heart block status post pacemaker, AAA status post endovascular repair, DM type II, CKD stage III, HTN, dyslipidemia, GERD, throat cancer s/p radiation, anxiety, DVT and severe PAD with multiple failed bypasses 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 Probably developed right BKA wound and he was hospitalized from 05/21 to 05/23/2025 with stump cellulitis. He was treated with ceftriaxone/vancomycin and discharged on Augmentin and doxycycline. He was admitted back on 05/25 to 05/26/2025 with fever and was treated with IV anti biotics for 48 hours and switch to Levaquin for another 7 days. He had been pursuing outpatient wound care and pictures sent by to Dr. Banks. Due to worsening nature of the wound patient was asked to go to the hospital and he was admitted on 06/19/2025 for surgical debridement and wound VAC placement. - Right BKA stump wounds/infection. Clinically not septic. Currently on vancomycin and Zosyn. Scheduled for surgical debridement of the wound and subsequent wound VAC placement. On opoids for chronic pain in R BKA stump and phantom pain. - DM2. On lantus/SSI. POC - CKD stage 3a. Baseline creatinine ~1.6-1.9. Creatinine mildly elevated at 2 on admission but did not quite meet criteria for XAVIER. Cr 1.4 today with IVFs. - Chronic diastolic heart failure. Euvolemic. Currently Lasix is on hold. - HTN. -Chronic microcytic anemia. Neuropathy. On gabapentin -Anxiety and depression. On duloxetine -GERD. On PPI -Dyslipidemia. -CAD/CABG. Stable DVT pp: reassess post op Code status: DNR/I * Yasemin Estes RN - 06/20/2025 10:40 AM EDT Goals: Identify possible barriers to meeting goals/advancing plan of care: npo for OR, iv abx/iv fluids Stability of the patient: Moderately Stable - Low risk of patient condition declining or worsening End of Shift Summary: * Amadorina Rafaelprecious - 06/20/2025 10:39 AM EDT SPIRITUAL CARE Date/Time:06/20/25 at 10:39 AM EDT Type of Visit: Initial Referral and Visit and Referral Reason for Visit: Spiritual/Emotional Support and Spiritual Assessment Time Spent: 25 Minutes Location: [address] [place] [address] Sacramental Encounters: Sacrament of Sick-Anointing: Anointed Spiritual Distress Assessment: Spiritual Distress Assessment at beginning of visit Meaning - Overall Life Balance: Some evidence of unmet spiritual need Transcendence: No evidence of unmet spiritual need Values - Acknowledgement: No evidence of unmet spiritual need Values - Control: No evidence of unmet spiritual need Psycho-Social Identity: No evidence of unmet spiritual need SDAT Beginning of Visit Average Score: 0.2 Spiritual Distress Assessment at end of visit Meaning - Overall Life Balance: Some evidence of unmet spiritual need Transcendence: No evidence of unmet spiritual need Values - Acknowledgement: No evidence of unmet spiritual need Values - Control: No evidence of unmet spiritual need Psycho-Social Identity: No evidence of unmet spiritual need SDAT End of Visit Average Score: 0.2 Spiritual Assessment/Distress Spiritual Care Assessment: Assessment: Referral to visit Mark Anthony, who was feeling frustrated and sad due to health condition. Lynda, was lying down in bed awaiting upcoming surgery later in the day. Listen as he shared medical history/journey, different surgeries had. Raised the role of God in his illness, humorously said I want God to go and visit someone else, He has visited me enough . We engaged in chatting and sharing life lessons, losing his son who was in his forties, his role in making sure his granddaughter is raised well. Awaiting visit from his of over sixty-five years of marriage. Nettie anabaptist is Zoroastrian, administered anointing of the sick. Prayed for a successful surgery and a good outcome. Voiced appreciation for the visit. Intervention: NE Spiritual Care Interventions : focus on the present, encouraged self-care, provided anxiety containment, provided support, reframed experience of patient/family, explored hope, facilitate storytelling, listened empathically, and provided prayer Outcomes: distress reduced, expressed gratitude, expressed humor, and expressed peace Plan of Care: Visit as needed *Reference: Spiritual Distress Assessment Tool: The SDAT is a clinical tool used by chaplains to identify unmet spiritual and emotional needs that can impact Goals of Care in the following categories: Spiritual Distress Assessment Legend Spiritual Needs Related Questions Meaning Are you having difficulties coping with what is happening to your now? Does your hospitalization have any repercussions on the way you live usually? Transcendence Do you have a particular anabaptist, nettie, or spirituality? Is your anabaptist/spirituality/nettie challenged by what is happening to you now? Values Do you think that the health professionals caring for you know you well enough? Do you feel that you are participating in the decisions made about your care? Psycho-Social Identity Do you have any worries or difficulties regarding your family or other persons close to you? Do you feel lonely? Do you have links to your nettie community? SCALE 0= no evidence of unmet spiritual needs 1= some evidence of unmet spiritual needs 2= substantial evidence of unmet spiritual needs 3= evidence of severe unmet spiritual needs * Arlette Israel RN - 06/20/2025 9:31 AM EDT 06/20/25929 Initial Transition Plan Initial Transition Plan Home Health Care Discharge Planning Living Arrangements Spouse/significant other Type of Residence Private residence Assistive Devices Wheelchair;Walker Support Systems Spouse/significant other;Children Medication Coverage Has Med Coverage Under Insurance Plan Yes Medication Affordability No concerns related to payment for meds Anticipated Discharge Needs 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 Yes ICC met with patient at bedside, he currently resides at home with his who assists him with care. He owns a walker and a wheelchair, does not wear home O2 and is not a . Patient expressing discouragement with current situation, states he even has questioned his nettie through all this, Agreeable to spiritual care visit, referral made. Plan is for him to go back to the OR today and he ho pes to co home by the end of the week. Referrals placed via epic * Brisa Dobbs RN - 06/20/2025 9:10 AM EDT Spiritual care paged and was asked to speak with patient. * Carrie Diaz PharmD - 06/19/2025 10:34 PM EDT Initial Pharmacy Vancomycin Dosing Consultation Consult ordering provider: OSWALDO Gómez 84 y.o. male is being started on vancomycin (surgical site wound) for 5 days. Provider has specified a goal trough of 10-15. Relevant data Height: 1.727 m (68 ) Weight: 81.2 kg (179 lb) Temp Readings from Last 3 Encounters: 06/19/25 36.7 ??C (98.1 ??F) (Oral) 05/26/25 36.2 ??C (97.2 ??F) (Temporal) 05/22/25 36.9 ??C (98.4 ??F) (Temporal) WBC Date Value Ref Range Status 06/19/2025 7.5 4.8 - 10.8 K/mcL Final 05/26/2025 7.3 4.8 - 10.8 K/mcL Final 05/24/2025 9.4 4.8 - 10.8 K/mcL Final Creatinine Date Value Ref Range Status 06/19/2025 2.01 (H) 0.70 - 1.30 mg/dL Final 05/26/2025 1.24 0.70 - 1.30 mg/dL Final 05/25/2025 1.50 (H) 0.70 - 1.30 mg/dL Final Estimated Creatinine Clearance: 26 mL/min (A) (by C-G formula based on SCr of 2.01 mg/dL (H)). mL/min Cockcroft-Gault No results found for this or any previous visit (from the past week). Patient is also receiving the following antibiotic(s): Piperacillin/Tazobactam Plan Patient has received a Loading vancomycin dose of 1500 mg on 06/19/25. Pharmacy will initiate a maintenance dose of 1000 mg every 36 hours starting on 06/21/25. A trough has been ordered prior to 2nd dose due on 06/21/25. Therapy is planned to end on 06/24/25 at this time. Will continue to monitor and recommend changes as necessary. Carrie Diaz PharmD 06/19/25 10:15 PM EDT * Divine Acuna RN - 06/19/2025 6:09 PM EDT ED RN HANDOFF (All Bassett Below Must Be Completed) Reason/Diagnosis for Admission: non-healing wound of amputation stump Type of Admission: [x] Medsurg, [] Telemetry Already in a Hospital Bed: [] Yes / [x] No Room Considerations/Precautions (ex: fever, diarrhea, or any infectious concerns): [] Yes / [x] No City Collector: [] Yes / [x] No If YES, Cardiac Rhythm: [] NSR, [] SB, [] ST, [] A-FIB, [] A-Flutter, [] Pacemaker, [] 1st Degree HB, [] 2nd Degree HB, [] 3rd Degree HB Reason for City Collector: VS: Visit Vitals BP (!) 153/56 Pulse 60 Temp 36.7 ??C (98.1 ??F) (Oral) Resp 16 Ht 1.727 m (68 ) Wt 81.2 kg (179 lb) SpO2 100% BMI 27.22 kg/m?? Smoking Status Former BSA 1.95 m?? Current Mental Status: A/O x [x]4, []3, []2, []1 Current Ambulation Status: uses wheelchair IV Access: [x] Yes / [] No Field IV present: [] Yes / [x] No Hx of Violence: [] Yes / [x] No / [] Unknown Fall Risk:[x] Yes / [] No Yellow Bracelet Applied [x] Yes / [] No Yellow Socks Applied [] Yes / [] No Patient Belongings inventoried and BL completed: [x] Yes / [] No Patient belongings stored in the security closet: [] Yes (If Yes please supply Security bag #): [] No Patient Medications stored in Pharmacy: [] Yes (If Yes please supply Medication Security bag #): [] No ED Summary of Care: R leg wound from amputation on April 12 getting worse. Given Dilaudid x 2. LR infusing at 100 ml/hr Submitted by and Phone Extension: [phone] * Mary Munira - 06/19/2025 5:53 PM EDT Images from the original note were not included. Medication History Acute Care Nurse Practitioner Medication history has been obtained for Mark Anthony Lyssa (1940) by a Medication Historian and the home med list has been updated. History obtained from conversation with: Patient Additional Source(s) of History: Dispense history (no discrepancy between med list and fill history) []Updated Patient Preferred Pharmacy The Patient's Home Medications include: HOME MEDICATIONS INSTRUCTIONS NOTES aspirin 81 mg chewable tablet Chew 1 tablet (81 mg total) 1 (one) time each day. fenofibrate (TRICOR) 145 mg tablet Take 1 tablet (145 mg total) by mouth 1 (one) time each day. ADDITION lansoprazole (PREVACID) [address] capsule Take 1 capsule (30 mg total) by mouth 1 (one) time each day. EDIT DOSE + FREQUENCY LORazepam (ATIVAN) 0.5 mg tablet Take 1 tablet (0.5 mg total) by mouth 2 (two) times a day. EDIT DOSE + FREQUENCY Nucynta ER 50 mg 12 hr tablet Take 1 tablet (50 mg total) by mouth 2 (two) times a day. acetaminophen (TYLENOL) 500 mg tablet Take 2 tablets (1,000 mg total) by mouth every 6 (six) hours if needed for mild pain or moderate pain. Patient not taking. Reported on 06/19/2025 atenoloL (TENORMIN) 50 mg tablet Take 1 tablet (50 mg total) by mouth at bedtime. EDIT DOSE + FREQUENCY atorvastatin (LIPITOR) 80 mg tablet Take 1 tablet (80 mg total) by mouth at bedtime. EDIT DOSE + FREQUENCY BD Ev 2nd Gen Pen Needle 32 gauge x 5/32 needle USE DIRECTED TO INJECT INSULIN INEFFECTIVE collagenase (SantyL) 250 unit/gram ointment Apply topically 1 (one) time each day. Apply nickel thickness layer to right knee wound daily cyanocobalamin (VITAMIN B-12) 500 mcg tablet Take by mouth. 1000mg daily DULoxetine (CYMBALTA) [address] capsule Take 1 capsule (60 mg total) by mouth 1 (one) time each day.Patient not taking. Reported on 06/19/2025 flash glucose scanning reader ([employer] [place]) misc 1 Product by Does not apply route every 14 days INEFFECTIVE flash glucose sensor kit USE DIRECTED EVERY 14 DAYS INEFFECTIVE furosemide (LASIX) 20 mg tablet Take 1 tablet (20 mg total) by mouth 1 (one) time each day. gabapentin (NEURONTIN) 300 mg capsule Take 150 mg by mouth at bedtime. Note written 06/19/2025 1736:PATIENT REPORTS A DECREASE FROM 300MG AT BEDTIME glucose sensor,implant-dexamet device 1 Product by Does not apply route every 14 days. INEFFECTIVE insulin degludec (Tresiba FlexTouch U-200) 200 unit/mL (3 mL) CONCENTRATED injection pen Inject 28 Units under the skin at bedtime as needed (HYPERGLYCEMIA). ADDITION nitroglycerin (NITROSTAT) 0.[address] 0.4 mg under the tongue every 5 minutes as needed. Ozempic 2 mg/dose (8 mg/3 mL) injection pen Inject 2 mg under the skin every 7 (seven) days. WEDNESDAY Note written 06/19/2025 1748: PATIENT REPORTS AN INCREASE FROM 1MG WEEKLY pen needle, diabetic (BD Ultra-Fine Micro Pen Needle) 32 gauge x 1/4 needle DIRECTED TWICE DAILY INEFFECTIVE polyethylene glycol (MIRALAX) 17 gram packet Take 17 g by mouth 1 (one) time each day. ADDITION senna-docusate (PERICOLACE) 8.6-50 mg per tablet Take 2 tablets by mouth at bedtime. Patient not taking. Reported on 06/19/2025 oxyCODONE (ROXICODONE) 5 mg immediate release tablet Take 1 tablet (5 mg total) by mouth every 8 (eight) hours if needed. for pain Max Daily Amount: 15 mg ADDITION Thank you, Mary Lombardo Medication Historian W: [phone] * Neli Ortega RN - 06/19/2025 11:05 AM EDT Pt has right leg wound that is getting worse Initially surg April [address] pena on Wednesday and told to come to ed today to have surgery tomorrow documented in this encounter H&P Notes * OSWALDO Ayala - 06/19/2025 5:59 PM EDT Images from the original note were not included. SANDIE HISTORY AND PHYSICAL Please contact author [OSWALDO Ayala] via [employer]sm[employer]/DIC[employer]. Patient: Mark Anthony Omalley Admission Date/Time: 06/19/2025 2:22 PM : 1940 [84 y.o.] Patient's PCP: OSWALDO Roach Attending Provider: Naveen Dickinson MD;Kerry Vergara* CHIEF COMPLAINT Worsening wound HISTORY OF PRESENT ILLNESS Mark Anthony Omalley is a 84 y.o. male past medical history significant for CAD status post CABGx4, complete heart block status post pacemaker placement, endovascular aortic aneurysm repair, diabetes, CKD stage III, hypertension, hyperlipidemia, GERD, throat cancer s/p radiation, anxiety, prior right lower extremity DVT and extensive PAD, nonhealing BKA wound and further history below presented to ED for evaluation of worsening right lower extremity BKA wounds. Patient underwent right below-knee amputation done by Dr. Banks on 04/11/2025 for critical limb ischemia and multiple failed bypasses. Postoperatively patient admitted to hospital twice for concern for right BKA stump infection/cellulitis. Currently patient is followed by vascular surgery office for wound care. Patient's was in contact with Dr. Banks over the weekend sending images of the appearance of the wound. Today patient was called to go to the ED for admission to the medical service with plan for OR tomorrow for debridement and wound VAC placement. The patient was previously hospitalized from 05/21/2025-05/23/2025 with stump cellulitis. He was treated with ceftriaxone and vancomycin and discharged back to the facility with Augmentin and doxycycline. He was admitted again from 05/25- 05/26/2025 after spiking a fever at his facility showed no leukocytosis but rising CRP treated with IV antibiotics for 48 hours and switch to Levaquin 500 milligram daily for another 7 days. Patient denies fever, chills, chest pain, palpitations, shortness of breath, generalized weakness, fatigue, abdominal pain, nausea, vomiting, changes in bowel movements or urination. States he has VNA coming to the house for wound clinic 3 times weekly and today he received a call from Dr. Pena to go to the ED for worsening wound. Arrival to ED, blood pressure 148/69, heart rate 70, respirate 18, sat 96% room air, afebrile. Labs reviewed no leukocytosis 7.5, anemia H&H 34.7, platelets 232, electrolytes WNL, elevated BUN/creatinine 31/2.01. In ED patient received IV fluid, Dilaudid and admitted to hospital for further workup and treatment. Review of Systems All points in 12 point review of systems are negative or as per above MEDICAL HISTORY Past Medical History Past Medical History: Diagnosis Date ??? Anxiety 08/09/2020 DX:Anxiety ??? CAD (coronary artery disease) 08/09/2020 DX:CAD (coronary artery disease); COMMENT: Multiple stenting procedures x 5. ??? CKD (chronic kidney disease) stage 3, GFR 30-59 ml/min ([facility] V24, [facility] V28) 11/06/2020 DX:CKD (chronic kidney disease) stage 3, GFR 30-59 ml/min (HCC) ??? Diabetic neuritis ([facility] V24, [facility] V28) 08/09/2020 DX:Diabetic neuritis (HCC) ??? Gastroesophageal reflux disease without esophagitis 08/09/2020 DX:Gastroesophageal reflux disease without esophagitis ??? History of diverticulitis 08/09/2020 DX:History of diverticulitis ??? HTN (hypertension) 08/09/2020 DX:HTN (hypertension) ??? Hyperlipidemia 08/09/2020 DX:Hyperlipidemia ??? Malignant neoplasm of right vocal cord ([facility] V24, [facility] V28) 11/06/2020 DX:Malignant neoplasm of right vocal cord (HCC) ??? Pacemaker 08/09/2020 DX:Pacemaker ??? Peripheral vascular disease ([facility] V24) 08/09/2020 DX:Peripheral vascular disease (HCC) ??? 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 ST elevation myocardial infarction (STEMI) ([facility] V24, [facility] V28) 08/09/2020 DX:ST elevation myocardial infarction (STEMI) (HCC) ??? Throat cancer ([facility] V24, [facility] V28) 08/09/2020 DX:Throat cancer (HCC); COMMENT: 2020: received RT ??? Type 2 diabetes mellitus with neurological manifestation ([facility] V24, [facility] V28) 08/09/2020 DX:Type 2 diabetes mellitus with neurological manifestation (HCC) ??? Type 2 diabetes mellitus with renal manifestations (CMS/HCC V24, CMS/HCC V28) 08/09/2020 DX:Type 2 diabetes mellitus with renal manifestations (HCC) Past Surgical History Past Surgical History: Procedure Laterality Date ??? BACK SURGERY Bilateral 10/08/2022 PROCEDURE: HISTORICAL BACK SURGERY; COMMENT: Bilateral L3, L4 and L5 radiofrequency neurotomy Dr. Sahu ??? CARPAL TUNNEL RELEASE Right PROCEDURE: [place] NEUROPLASTY &/TRANSPOS MEDIAN NRV CARPAL TUNNE; COMMENT: dr. cazares ??? COLONOSCOPY 2011 PROCEDURE: HISTORICAL COLONOSCOPY ??? CORONARY ARTERY BYPASS GRAFT 1996 PROCEDURE: HISTORICAL CABG; COMMENT: x4 ??? EYE SURGERY PROCEDURE: HISTORICAL EYE SURGERY; COMMENT: [place] ??? HERNIA REPAIR Bilateral PROCEDURE: REPAIR INGUINAL HERNIA ??? KNEE ARTHROSCOPY Right 2009 PROCEDURE: NH ARTHROSCOPY KNEE DIAGNOSTIC W/WO SYNOVIAL BX SPX; COMMENT: Meniscus ??? NECK SURGERY PROCEDURE: HISTORICAL NECK SURGERY ??? OTHER SURGICAL HISTORY PROCEDURE: NH DUP-SCAN LXTR ART/ARTL BPGS UNI/LMTD STUDY; COMMENT: Angioplasty and stenting of the left leg ??? OTHER SURGICAL HISTORY PROCEDURE: NH BIOPSY OROPHARYNX; COMMENT: Throat cancer had radiation x6 weeks [facility] ??? OTHER SURGICAL HISTORY PROCEDURE: ---- HEMORRHOIDS ---- ??? OTHER SURGICAL HISTORY 06/15/2023 PROCEDURE: NH SLCTV CATHJ 3RD+ ORD SLCTV ABDL PEL/LXTR BRNCH ??? OTHER SURGICAL HISTORY 06/15/2023 PROCEDURE: NH SLCTV CATHJ EA 2ND+ ORD ABDL PEL/LXTR ART BRNCH ??? OTHER SURGICAL HISTORY 06/15/2023 PROCEDURE: X-RAY EXAM OF ARM/LEG ARTERY ??? OTHER SURGICAL HISTORY 06/15/2023 PROCEDURE: ULTRASOUND GUIDANCE FOR VASCULAR AC ??? OTHER SURGICAL HISTORY 06/01/2024 PROCEDURE: NH EVASC RPR DPLMNT [id number] NDGFT ??? OTHER SURGICAL HISTORY 06/01/2024 PROCEDURE: NH OPN ILIAC ART EXPOS PROSTH/ILIAC OCCLS EVASC UNI ??? OTHER SURGICAL HISTORY 06/01/2024 PROCEDURE: NH PERQ ACCESS & CLOSURE FEM ART FOR DELIVERY NDGFT ??? OTHER SURGICAL HISTORY 06/01/2024 PROCEDURE: NH REVASC INTRAVASC LITHOTRIPSY ??? OTHER SURGICAL HISTORY Left 06/28/2024 PROCEDURE: NH BYP OTH/THN VEIN FEM-ANT TIBL PST TIBL/PRONEAL ??? PACEMAKER IMPLANT PROCEDURE: HISTORICAL PACEMAKER ??? TONSILLECTOMY PROCEDURE: HISTORICAL TONSILLECTOMY ??? TURP / TRANSURETHRAL INCISION / DRAINAGE PROSTATE 2005 PROCEDURE: HISTORICAL TURP Social History reports that he quit smoking about 30 years ago. His smoking use included cigarettes. He started smoking about 71 years ago. He has never used smokeless tobacco. He reports that he does not drink alcohol and does not use drugs. Family History family history includes Arthritis in his father and mother. Allergies is allergic to iodinated contrast media, sulfa (sulfonamide antibiotics), sulfamethoxazole-trimethoprim, and tetracyclines. Home Medications Current Outpatient Medications Medication Instructions ??? acetaminophen (TYLENOL) 1,000 mg, oral, Every 6 hours PRN ??? aspirin 81 mg chewable tablet Chew 1 tablet (81 mg total) 1 (one) time each day. ??? atenoloL (TENORMIN) 50 mg tablet Take 1 tablet (50 mg total) by mouth at bedtime. ??? atorvastatin (LIPITOR) 80 mg tablet Take 1 tablet (80 mg total) by mouth at bedtime. ??? BD Ev 2nd Gen Pen Needle 32 gauge x 5/32 needle USE DIRECTED TO INJECT INSULIN ??? collagenase (SantyL) 250 unit/gram ointment Topical, Daily, Apply nickel thickness layer to right knee wound daily ??? cyanocobalamin (VITAMIN B-12) 500 mcg tablet Take by mouth. 1000mg daily ??? DULoxetine (CYMBALTA) 60 mg, Daily ??? fenofibrate (TRICOR) 145 mg, Daily ??? flash glucose scanning reader ([employer] [place]) misc 1 Product by Does not apply routeevery 14 days ??? flash glucose sensor kit USE DIRECTED EVERY 14 DAYS ??? furosemide (LASIX) 20 mg tablet Take 1 tablet (20 mg total) by mouth 1 (one) time each day. ??? gabapentin (NEURONTIN) 150 mg, oral, Nightly ??? glucose sensor,implant-dexamet device 1 Product by Does not apply route every 14 days. ??? insulin degludec (TRESIBA FLEXTOUCH U-200) 28 Units, subcutaneous, Nightly PRN ??? lansoprazole (PREVACID) [address] capsule Take 1 capsule (30 mg total) by mouth 1 (one) time each day. ??? LORazepam (ATIVAN) 0.5 mg, 2 times daily ??? nitroglycerin (NITROSTAT) 0.[address] 0.4 mg under the tongue every 5 minutes as needed. ??? Nucynta ER 50 mg, 2 times daily ??? oxyCODONE (ROXICODONE) 5 mg, oral, Every 8 hours PRN, for pain ??? Ozempic 2 mg, subcutaneous, Every 7 days, WEDNESDAY ??? pen needle, diabetic (BD Ultra-Fine Micro Pen Needle) 32 gauge x 1/4 needle DIRECTED TWICE DAILY ??? polyethylene glycol (MIRALAX) 17 g, oral, Daily ??? senna-docusate (PERICOLACE) 8.6-50 mg per tablet 2 tablets, oral, Nightly OBJECTIVE Vitals Visit Vitals BP (!) 153/56 Pulse 60 Temp 36.7 ??C (98.1 ??F) (Oral) Resp 16 Temp (24hrs), Av.7 ??C (98.1 ??F), Min:36.7 ??C (98.1 ??F), Max:36.7 ??C (98.1 ??F) Body mass index is 27.22 kg/m??. No results found for: PTWT , PTHT Physical Examination General: Age appropriate, pleasant. No acute distress. Laying comfortably on exam stretcher. Skin: Warm, dry, intact, no diaphoresis. HEENT: Atraumatic, normocephalic head, Patient is handling secretions without trismus or drooling. Speaking in full sentences. Neck: Soft/supple, full range of motion. No cervical spine tenderness noted. Cardiology: Regular rate and rhythm, no rubs or gallops, S1 and S2 auscultated. Respiratory: Clear to auscultation bilaterally, no wheezes, rales or rhonchi. No accessory muscle use, retractions or tripoding; speaking in full sentences without difficulties. Abdominal/GI: Abdomen is not distended, Normal bowel sounds, abdomen soft and non-tender. No CVA tenderness. Peripheral Vascular: No edema on left lower leg. Neurological: No focal deficit. CN II-XII grossly intact. Musculoskeletal: No calf tenderness or asymmetry. Moving all extremities at the major joint spaces without difficulty. Psychiatric: Cooperative, depressed mood & affect. LAB RESULTS (most recent) HEMATOLOGY Lab Results Component Value Date WBC 7.5 06/19/2025 HGB 11.0 (L) 06/19/2025 HCT 34.7 (L) 06/19/2025 MCV 102.1 (H) 06/19/2025 PLT 232 06/19/2025 CHEMISTRY Lab Results Component Value Date GLUCOSE 118 (H) 06/19/2025 NA 143 06/19/2025 K 4.4 06/19/2025 CO2 28 06/19/2025 CL 110 06/19/2025 BUN 31 (H) 06/19/2025 CREATININE 2.01 (H) 06/19/2025 EGFR 32 (L) 06/19/2025 CALCIUM 9.1 06/19/2025 MG 2.2 04/15/2025 PHOS 2.4 (L) 01/19/2025 ANIONGAP 5 06/19/2025 Radiology No orders to display ASSESSMENT & PLAN BKA stump wounds 84 y.o. male past medical history significant for CAD status post CABGx4, complete heart block status post pacemaker placement, endovascular aortic aneurysm repair, diabetes, CKD stage III, hypertension, hyperlipidemia, GERD, throat cancer s/p radiation, anxiety, prior right lower extremity DVT and extensive PAD, nonhealing BKA wound and further history below presented to ED for evaluation of worsening right lower extremity BKA wounds. No leukocytosis 7.5, will add CRP. Will give IV vancomycin and Zosyn for now Keep patient n.p.o. after midnight Continue IV hydration As needed analgesia, antipyretics, antiemetics HFpEF Patient is on Lasix 20 mg daily. Appears euvolemic. Will hold Lasix preoperatively I's and O's Daily weight Hypertension Hyperlipidemia CAD status post CABGx 4 Continue atorvastatin, atenolol, Hold fenofibrate and aspirin Diabetes mellitus On Tresiba 28 units at bedtime, Ozempic Continues on sliding scale Lantus Diabetic diet POC ACHS XAVIER on CKD stage III Today creatinine level 2.01 Creatinine 1.6-1.9 Avoid nephrotoxins Monitor kidney function closely Gentle hydration Macrocytic anemia Hemoglobin 11 improved since last admission Transfuse if Hgb is less than 7 Monitor H&H closely Neuropathy Continue home med gabapentin Anxiety Depression Continue duloxetine On ativan PRN GERD Continue PPI Chronic pain He is on Nucynta 50 mg twice daily and oxycodone 5 mg IR as needed for low back and neck pain whichis chronic. DVT Prophylaxis: Hold chemical prophylaxis preoperatively Pneumoboots Code Status: DNR/DNI-confirmed with the patient HCP:, Padmini; [phone] Ji Cosigned by Kerry Ji MD at 06/20/2025 4:43 PM EDT documented in this encounter Procedure Notes * Ahmet Banks MD - 06/23/2025 8:47 AM EDT DEBRIDEMENT BK AMP APPLICATION OF WOUND VAC (R) OPERATIVE NOTE Date: 06/23/2025 Location: [facility] OR Name: Mark Anthony Omalley : 1940, Diagnosis PREOP: Right BKA dehiscence POSTOP: Right BKA dehiscence Procedures RIGHT BKA WOUND DEBRIDEMENT, WASHOUT, VAC PLACEMENT Indications: Mark Anthony Omalley is an 84 y.o. 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 The right below-knee amputation was draped and prepped in usual sterile fashion. Preprocedure combined wounds measured 11 cm x 4 cm x 3 cm deep. Excisional debridement was performed using knife scissors of the skin and subcutaneous tissue fascia and muscle. Post debridement combined wounds measured 11.5 cm x 4.5 cm x 4 cm deep. The wound was pulse irrigated with a Pulsavac irrigation system using 1 L normal saline. Black foam VAC was cut to size and placed on the wounds. Seal was obtained with 125 mmHg. Issac wrap was applied. Patient tolerated procedure without complication. Findings: As stated above Complications: None; patient tolerated the procedure well. Disposition: PACU - hemodynamically stable. Condition: stable * Ahmet Banks MD - 06/20/2025 2:30 PM EDT RIGHT BKA WOUND DEBRIDEMENT, WASHOUT, VAC PLACEMENT (R) OPERATIVE NOTE Date: 06/19/2025 - 06/20/2025 Location: [facility] OR Name: Mark Anthony Omlaley, : 1940, Diagnosis Pre-op Diagnosis * Non-healing wound of amputation stump (CMS/HCC V24, CMS/HCC V28) [T87.89] Post-op Diagnosis * Non-healing wound of amputation stump (CMS/HCC V24, CMS/HCC V28) [T87.89] Procedures * RIGHT BKA WOUND DEBRIDEMENT, WASHOUT, VAC PLACEMENT Indications: Mark Anthony Omalley is an 84 y.o. 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 The right below-knee amputation was draped and prepped in usual sterile fashion. Preprocedure combined wounds measured 10 cm x 5 cm x 1 cm deep. Excisional debridement was performed using knife scissors of the skin and subcutaneous tissue fascia and muscle. Post debridement combined wounds measured 11 cm x 5 cm x 4 cm deep. The wound was pulse irrigated with a Pulsavac irrigation system using 1 L normal saline. Black foam VAC was cut to size and placed on the wounds. Seal was obtained with 125 mmHg. Issac wrap was applied. Patient tolerated procedure without complication. Findings: As stated above Complications: None; patient tolerated the procedure well. Disposition: PACU - hemodynamically stable. Condition: stable documented in this encounter Consult Notes * Clarice Donato, RD - 06/21/2025 1:48 PM EDTAssociated Order(s): IP CONSULT TO NUTRITION SERVICES; IP CONSULT TO NUTRITION SERVICES 06/21/2025 @ 1:49 PM EDT Nutrition Consult Note/Nutrition Assessment Reason for RD Intervention: Assessment Type: Provider Consult Reason for Assessment: Weight Change Anthropometrics: Height: 172.7 cm (68 ) Weight: 81.7 kg (180 lb 3.2 oz) BMI (Calculated): 27.4 BMI Class: Overweight IBW (lbs): 154 Recent Weight Change: Yes Other (Comment): Patient was 195 lbs 1 year ago, down to 170 lbs after amputation, now 180 lbs. ABW Needed: Yes Reason for ABW: Amputation only Foot & Lower Leg Amputation: Right Current Diet and Supplements: Dietary Orders (From admission, onward) Start Ordered 06/21/25 1041 Dietary nutrition supplements Three times daily (TID); [facility]; Diabetic Supplement Continuous Comments: [place]oo or vanilla Question Answer Comment Frequency Three times daily (TID) Location [facility] Supplements Diabetic Supplement 06/21/25 1040 06/20/25 1501 Adult diet [facility]; General, Diabetic; Regular; 75 gm carb/Meal Diet effective now Question Answer Comment Location [facility] Diet Type (req) General Diet Type (req) Diabetic General Diet Regular Diabetic 75 gm carb/Meal 06/20/25 1502 History of presenting illness: Patient is a 84 y.o. male with a history of Past Medical History: Diagnosis Date Anxiety 08/09/2020 DX:Anxiety CAD (coronary artery disease) 08/09/2020 DX:CAD (coronary artery disease); COMMENT: Multiple stenting procedures x 5. CKD (chronic kidney disease) stage 3, GFR 30-59 ml/min ([facility] V24, [facility] V28) 11/06/2020 DX:CKD (chronic kidney disease) stage 3, GFR 30-59 ml/min ([facility]) Diabetic neuritis ([facility] V24, [facility] V28) 08/09/2020 DX:Diabetic neuritis (HCC) Gastroesophageal reflux disease without esophagitis 08/09/2020 DX:Gastroesophageal reflux disease without esophagitis History of diverticulitis 08/09/2020 DX:History of diverticulitis HTN (hypertension) 08/09/2020 DX:HTN (hypertension) Hyperlipidemia 08/09/2020 DX:Hyperlipidemia Malignant neoplasm of right vocal cord ([facility] V24, [facility] V28) 11/06/2020 DX:Malignant neoplasm of right vocal cord (HCC) Pacemaker 08/09/2020 DX:Pacemaker Peripheral vascular disease ([facility] V24) 08/09/2020 DX:Peripheral vascular disease (HCC) 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 DX: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 ST elevation myocardial infarction (STEMI) (CMS/HCC V24, [facility] V28) 08/09/2020 DX:ST elevation myocardial infarction (STEMI) (HCC) Throat cancer ([facility] V24, [facility] V28) 08/09/2020 DX:Throat cancer (HCC); COMMENT: 2020: received RT Type 2 diabetes mellitus with neurological manifestation ([facility] V24, [facility] V28) 08/09/2020 DX: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 Sahu CARPAL TUNNEL RELEASE Right PROCEDURE: [place] NEUROPLASTY &/TRANSPOS MEDIAN NRV CARPAL TUNNE; COMMENT: dr. cazares COLONOSCOPY 2011 PROCEDURE: HISTORICAL COLONOSCOPY CORONARY ARTERY BYPASS GRAFT 1996 PROCEDURE: HISTORICAL CABG; COMMENT: x4 EYE SURGERY PROCEDURE: HISTORICAL EYE SURGERY; COMMENT: [place] HERNIA REPAIR Bilateral PROCEDURE: REPAIR INGUINAL HERNIA KNEE ARTHROSCOPY Right 2009 PROCEDURE: NH ARTHROSCOPY KNEE DIAGNOSTIC W/WO SYNOVIAL BX SPX; COMMENT: Meniscus NECK SURGERY PROCEDURE: HISTORICAL NECK SURGERY OTHER SURGICAL HISTORY PROCEDURE: NH DUP-SCAN LXTR ART/ARTL BPGS UNI/LMTD STUDY; COMMENT: Angioplasty and stenting of the left leg OTHER SURGICAL HISTORY PROCEDURE: NH BIOPSY OROPHARYNX; COMMENT: Throat cancer had radiation x6 weeks [facility] OTHER SURGICAL HISTORY PROCEDURE: ---- HEMORRHOIDS ---- OTHER SURGICAL HISTORY 06/15/2023 PROCEDURE: NH SLCTV CATHJ 3RD+ ORD SLCTV ABDL PEL/LXTR BRNCH OTHER SURGICAL HISTORY 06/15/2023 PROCEDURE: NH SLCTV CATHJ EA 2ND+ ORD ABDL PEL/LXTR ART BRNCH OTHER SURGICAL HISTORY 06/15/2023 PROCEDURE: X-RAY EXAM OF ARM/LEG ARTERY OTHER SURGICAL HISTORY 06/15/2023 PROCEDURE: ULTRASOUND GUIDANCE FOR VASCULAR AC OTHER SURGICAL HISTORY 06/01/2024 PROCEDURE: NH EVASC RPR DPLMNT [id number] NDGFT OTHER SURGICAL HISTORY 06/01/2024 PROCEDURE: NH OPN ILIAC ART EXPOS PROSTH/ILIAC OCCLS EVASC UNI OTHER SURGICAL HISTORY 06/01/2024 PROCEDURE: NH PERQ ACCESS & CLOSURE FEM ART FOR DELIVERY NDGFT OTHER SURGICAL HISTORY 06/01/2024 PROCEDURE: NH REVASC INTRAVASC LITHOTRIPSY OTHER SURGICAL HISTORY Left 06/28/2024 PROCEDURE: NH BYP OTH/THN VEIN FEM-ANT TIBL PST TIBL/PRONEAL PACEMAKER IMPLANT PROCEDURE: HISTORICAL PACEMAKER TONSILLECTOMY PROCEDURE: HISTORICAL TONSILLECTOMY TURP / TRANSURETHRAL INCISION / DRAINAGE PROSTATE 2004 PROCEDURE: HISTORICAL TURP admitted 06/19/2025 with Non-healing wound of amputation stump (CMS/HCC V24, CMS/HCC V28). Food/Nutrition History: Limited history, patient experiencing pain. Patient reports decreased appetite since amputation, not able to provide recall. Denies chewing or swallowing difficulties. Patient states POC have been well controlled at home. Social Influencers of Health & Nutrition - Hunger Vital Signs: Within the past 12 months we worried whether our food would run out before we got money to buy more: Never true Within the past 12 months the food we bought just didn't last and we didn't have money to get more: Never true Who obtained answers? Hunger vital signs completed by RD. Assistance: No assistance needed at this time Weight History: Wt Readings from Last 10 Encounters: 06/19/25 81.7 kg (180 lb 3.2 oz) 05/23/25 77.1 kg (170 lb) 05/22/25 84.8 kg (187 lb) 04/10/25 85.5 kg (188 lb 6.4 oz) 04/10/25 88 kg (194 lb) 02/27/25 85.3 kg (188 lb) 02/05/25 85.7 kg (189 lb) 02/05/25 86.2 kg (190 lb) 01/21/25 87.3 kg (192 lb 6.4 oz) 01/08/25 86.6 kg (191 lb) Subjective Assessment: Patient presents with nonhealing surgical wound status post right BKA, wound vac in place. Patient reports decreased appetite since surgery. Patient having pain and not forthcoming with food preferences, willing to try Glucerna. Nutrition-Related Lab Values: Results from last 7 days Lab Units 06/21/25 0527 SODIUM mmol/L 143 POTASSIUM mmol/L 4.3 CHLORIDE mmol/L 109 CO2 mmol/L 25 BUN mg/dL 28* CREATININE mg/dL 1.36* EGFR mL/min/1.73m2 51* CALCIUM mg/dL 8.9 GLUCOSE mg/dL 128* WBC AUTO K/mcL 6.3 Medications: aspirin, 81 mg, oral, Daily atenoloL, 50 mg, oral, Nightly atorvastatin, 80 mg, oral, Nightly furosemide, 20 mg, oral, Daily gabapentin, 100 mg, oral, Nightly heparin (porcine), 5,000 Units, subcutaneous, q12h CLARY insulin glargine, 20 Units, subcutaneous, Nightly insulin lispro, 1-6 Units, subcutaneous, TID AC LORazepam, 0.5 mg, oral, BID pantoprazole, 40 mg, oral, q AM AC piperacillin-tazobactam, 2.25 g, intravenous, q6h vancomycin, 1,000 mg, intravenous, q24h CONTINUOUS: PRN medications: bisacodyL, dextrose 50%, dextrose 50%, dextrose, dextrose, glucagon injection, HYDROmorphone, naloxone, ondansetron (ZOFRAN-ODT) disintegrating tablet OR ondansetron, oxyCODONE Food/Nutrition-Current Status: Intake Type: P.O. Appetite: Poor Intake Amount (%): 0-25% Intake Assessment: Inadequate Main IVF: LR Main IVF Rate (mL/hr): 100 Propofol?: No Nutrition Focused Physical Findings: Overall Appearance: Patient lying in bed, mild fat and muscle depletion Digestive System (Mouth to Rectum): Appetite change Nerves and Cognition: Alert, Oriented Skin: surgical incision, wound vac Loss of Fat Location: Orbital, Buccal Loss of Fat Amt-Orbital: Mild Loss of Fat Amt-Buccal: Mild Loss of Muscle Location: Temples, Clavicle Loss of Muscle Amt-Temples: Mild Loss of Muscle Amt-Clavicle: Mild Nutrition Diagnosis: Code Type: None Identified (At risk for malntrition with poor appetite) Status: New Diagnosis: Inadequate Oral Intake Etiology: Changes in taste and appetite or preference, Physiologic causes Symptoms: patient reporting only consuming 25% or less of meals Nutrition Interventions: Medical Food Supplement Medical Food Supplement(s): Glucerna Glucerna Frequency: TID Will add multivitamin for now, consider adding additional wound vitamins once PO intake starts to improve. Request diet office contact patient for meal selection. Nutrition Education Education Materials Reviewed: Follow for need. Goals: Patient will initially consume at least 50% of meals. , Patient will consume ONS., Electrolytes within normal range., Maintain weight., Stooling appropriately., and Wound healing progress. Coordination of Patient Care: Care plan discussed with patient/family. Monitoring/Evaluation: Food Intake, Medical Food Supp/Oral Nutrition Supp, Weight, Other (Comment) (wound healing) Follow Up: Nutrition Priority Level: Moderate Nutritional Discharge Recommendations: RD remains available and will continue to follow. Signature: Clarice Donato RD * OSWALOD Vizcarra - 06/19/2025 4:25 PM EDTAssociated Order(s): IP CONSULT TO VASCULAR SURGERY Images from the original note were not included. VASCULAR SURGERY CONSULTATION PATIENT: Mark Anthony Omalley ENCOUNTER: 06/19/2025 EMRN: [id number] : 1940 PCP: OSWALDO Roach CHIEF COMPLAINT: Wound Infection HPI: Patient is a 84 y.o. male with history of CAD s/p CABG, CKD, DM, anxiety, hypertension, hyperlipidemia, s/p pacemaker placement, prior RLE DVT and extensive vascular history well known to [facility] as recommended by Dr. Banks. 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 He has since had 2 admissions to the hospital for concern for right BKA stump infection/cellulitis. He was most recently seen in the vascular surgery office on 06/[address] Banks. Dressingchanges were switched to twice daily wet to dry with normal saline. He was also scheduled to see the wound clinic on 06/21. The patient's was in contact with Dr. Banks over the weekend and today, sending updated images of the appearance of the wound. After reviewing images of the wound today, it was recommended that patient present to the ER for admission to the medical service with plan forOR tomorrow for debridement, likely wound vac placement. In the ER, patient is hemodynamically stable, afebrile. Labs reveal WBC count 7.5, H&H 11 and 34.7. Creatinine increased from baseline to 2.01. Type & screen was sent. He received IV dilaudidfor pain control. Past Medical History: Diagnosis Date Anxiety 08/09/2020 DX:Anxiety CAD (coronary artery disease) 08/09/2020 DX:CAD (coronary artery disease); COMMENT: Multiple stenting procedures x 5. CKD (chronic kidney disease) stage 3, GFR 30-59 ml/min ([facility] V24, [facility] V28) 11/06/2020 DX:CKD (chronic kidney disease) stage 3, GFR 30-59 ml/min ([facility]) Diabetic neuritis ([facility] V24, [facility] V28) 08/09/2020 DX:Diabetic neuritis (HCC) Gastroesophageal reflux disease without esophagitis 08/09/2020 DX:Gastroesophageal reflux disease without esophagitis History of diverticulitis 08/09/2020 DX:History of diverticulitis HTN (hypertension) 08/09/2020 DX:HTN (hypertension) Hyperlipidemia 08/09/2020 DX:Hyperlipidemia Malignant neoplasm of right vocal cord ([facility] V24, [facility] V28) 11/06/2020 DX:Malignant neoplasm of right vocal cord (HCC) Pacemaker 08/09/2020 DX:Pacemaker Peripheral vascular disease ([facility] V24) 08/09/2020 DX:Peripheral vascular disease (HCC) 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 DX: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 ST elevation myocardial infarction (STEMI) ([facility] V24, [facility] V28) 08/09/2020 DX:ST elevation myocardial infarction (STEMI) (HCC) Throat cancer (CMS/HCC V24, CMS/HCC V28) 08/09/2020 DX:Throat cancer (HCC); COMMENT: 2020: received RT Type 2 diabetes mellitus with neurological manifestation (CMS/HCC V24, CMS/HCC V28) 08/09/2020 DX: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 Sahu CARPAL TUNNEL RELEASE Right PROCEDURE: [place] NEUROPLASTY &/TRANSPOS MEDIAN NRV CARPAL TUNNE; COMMENT: dr. cazares COLONOSCOPY 2011 PROCEDURE: HISTORICAL COLONOSCOPY CORONARY ARTERY BYPASS GRAFT 1996 PROCEDURE: HISTORICAL CABG; COMMENT: x4 EYE SURGERY PROCEDURE: HISTORICAL EYE SURGERY; COMMENT: [place]cul[place] HERNIA REPAIR Bilateral PROCEDURE: REPAIR INGUINAL HERNIA KNEE ARTHROSCOPY Right 2009 PROCEDURE: NH ARTHROSCOPY KNEE DIAGNOSTIC W/WO SYNOVIAL BX SPX; COMMENT: Meniscus NECK SURGERY PROCEDURE: HISTORICAL NECK SURGERY OTHER SURGICAL HISTORY PROCEDURE: NH DUP-SCAN LXTR ART/ARTL BPGS UNI/LMTD STUDY; COMMENT: Angioplasty and stenting of the left leg OTHER SURGICAL HISTORY PROCEDURE: NH BIOPSY OROPHARYNX; COMMENT: Throat cancer had radiation x6 weeks [facility] OTHER SURGICAL HISTORY PROCEDURE: ---- HEMORRHOIDS ---- OTHER SURGICAL HISTORY 06/15/2023 PROCEDURE: NH SLCTV CATHJ 3RD+ ORD SLCTV ABDL PEL/LXTR BRNCH OTHER SURGICAL HISTORY 06/15/2023 PROCEDURE: NH SLCTV CATHJ EA 2ND+ ORD ABDL PEL/LXTR ART BRNCH OTHER SURGICAL HISTORY 06/15/2023 PROCEDURE: X-RAY EXAM OF ARM/LEG ARTERY OTHER SURGICAL HISTORY 06/15/2023 PROCEDURE: ULTRASOUND GUIDANCE FOR VASCULAR AC OTHER SURGICAL HISTORY 06/01/2024 PROCEDURE: NH EVASC RPR DPLMNT [id number] NDGFT OTHER SURGICAL HISTORY 06/01/2024 PROCEDURE: NH OPN ILIAC ART EXPOS PROSTH/ILIAC OCCLS EVASC UNI OTHER SURGICAL HISTORY 06/01/2024 PROCEDURE: NH PERQ ACCESS & CLOSURE FEM ART FOR DELIVERY NDGFT OTHER SURGICAL HISTORY 06/01/2024 PROCEDURE: NH REVASC INTRAVASC LITHOTRIPSY OTHER SURGICAL HISTORY Left 06/28/2024 PROCEDURE: NH BYP OTH/THN VEIN FEM-ANT TIBL PST TIBL/PRONEAL PACEMAKER IMPLANT PROCEDURE: HISTORICAL PACEMAKER TONSILLECTOMY PROCEDURE: HISTORICAL TONSILLECTOMY TURP / TRANSURETHRAL INCISION / DRAINAGE PROSTATE 2005 PROCEDURE: HISTORICAL TURP Current Facility-Administered Medications Medication Dose Route Frequency Provider Last Rate Last Admin HYDROmorphone (DILAUDID) injection 1 mg 1 mg intravenous Once Nvaeen Dickinson MD lactated Ringer's infusion 100 mL/hr intravenous Continuous Naveen Dickinson MD Current Outpatient Medications Medication Sig Dispense Refill acetaminophen (TYLENOL) 500 mg tablet Take 2 tablets (1,000 mg total) by mouth every 6 (six) hours if needed for mild pain or moderate pain. 40 tablet 0 aspirin 81 mg chewable tablet 1 tablet = 81 mg, By Mouth, Daily, 0 Refills, Maintenance, 09/18/19 9:54:11 EST atenoloL (TENORMIN) 50 mg tablet TAKE 1 TABLET BY MOUTH DAILY atorvastatin (LIPITOR) 80 mg tablet TAKE 1 TABLET BY MOUTH EVERY DAY BD Ev 2nd Gen Pen Needle 32 gauge x 5/32 needle USE DIRECTED TO INJECT INSULIN collagenase (SantyL) 250 unit/gram ointment Apply topically 1 (one) time each day. Apply nickel thickness layer to right knee wound daily 90 g 2 cyanocobalamin (VITAMIN B-12) 500 mcg tablet Take by mouth. 1000mg daily DULoxetine (CYMBALTA) [address] capsule Take 1 capsule (60 mg total) by mouth 1 (one) time each day. flash glucose scanning reader ([employer] [address] [place]) misc 1 Product by Does not apply route every 14 days flash glucose sensor kit USE DIRECTED EVERY 14 DAYS furosemide (LASIX) 20 mg tablet Take 1 tablet (20 mg total) by mouth 1 (one) time each day. gabapentin (NEURONTIN) 300 mg capsule Take 1 capsule (300 mg total) by mouth at bedtime. glucose sensor,implant-dexamet device 1 Product by Does not apply route every 14 days. lansoprazole (PREVACID) [address] capsule TAKE [...] gauge x 1/4 needle DIRECTED TWICE DAILY senna-docusate (PERICOLACE) 8.6-50 mg per tablet Take 2 tablets by mouth at bedtime. 60 each 11 Allergies Allergen Reactions Iodinated Contrast Media Rash Rash / dermatitis SWELLING Sulfa (Sulfonamide Antibiotics) Rash Rash/dermatitis Sulfamethoxazole-Trimethoprim Rash Tetracyclines Rash Social History Tobacco Use Smoking status: Former Current packs/day: 0.00 Types: Cigarettes Start date: 10/04/1954 Quit date: 10/04/1994 Years since quittin.7 Smokeless tobacco: Never Substance Use Topics Alcohol use: No Family History Problem Relation Name Age of Onset Arthritis Mother at 89 Arthritis Father at 89 ROS: GENERAL: No malaise, significant weight loss or fever NECK: No lumps, goiter, pain or significant neck swelling RESPIRATORY: No cough, wheezing or shortness of breath CARDIAC: No chest pain or palpitations GI: No abdominal discomfort MUSCULOSKELETAL: SEE HPI SKIN: No lesions, rash or itching NEURO: No persistent headache, syncope, seizures, weakness or numbness VASCULAR: SEE HPI OBJECTIVE: No intake/output data recorded. No intake/output data recorded. Vitals: 06/19/25 1107 06/19/25 1622 BP: (!) 148/69 (!) 153/56 BP Location: Right arm Patient Position: Sitting Pulse: 70 60 Resp: 18 16 Temp: 36.7 ??C (98.1 ??F) 36.7 ??C (98.1 ??F) TempSrc: Oral Oral SpO2: 96% 100% Weight: 81.2 kg (179 lb) Height: 1.727 m (68 ) General: Alert and oriented x 3, no acute distress, well-nourished HEENT: Normocephalic atraumatic Neck: No JVD, no carotid bruit, carotid pulses present Chest: Respiratory effort normal Cardiac: Regular rate rhythm Abdomen: Soft, nontender, nondistended, no widened aortic pulse Extremities: -Right upper extremity: 2+ radial artery pulses palpable. -Left upper extremity: 2+ radial artery pulses palpable. -Right lower extremity: 2+ femoral artery pulse palpable. S/p right BKA. Medial aspect of BKA well healed. Two wounds present to mid aspect and lateral aspect of BKA, see images below. No malodor. -Left lower extremity: Difficult to palpate femoral artery pulse. No palpable DP or PT pulses. Doppler DP and PT signals present. No ulcers or gangrene. Neuro: Grossly intact RESULTS: CBC Lab Results Component Value Date WBC 7.5 06/19/2025 HGB 11.0 (L) 06/19/2025 HCT 34.7 (L) 06/19/2025 MCV 102.1 (H) 06/19/2025 PLT 232 06/19/2025 LYMPHOPCT 28.9 06/19/2025 MONOPCT 13.2 06/19/2025 EOSPCT 5.4 06/19/2025 Electrolytes Lab Results Component Value Date NA 143 06/19/2025 K 4.4 06/19/2025 CL 110 06/19/2025 BUN 31 (H) 06/19/2025 CREATININE 2.01 (H) 06/19/2025 EGFR 32 (L) 06/19/2025 GLUCOSE 118 (H) 06/19/2025 CALCIUM 9.1 06/19/2025 Lab Results Component Value Date MG 2.2 04/15/2025 PHOS 2.4 (L) 01/19/2025 ASSESSMENT: 1. Non-healing wound of amputation stump ([facility] V24, [facility] V28) 84 y.o. male well known to the vascular surgery service s/p right BKA on 04/11/[address] 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 Patient's has been in close communication with Dr. Banks and sending updated wound images. After review of wound image today, it was recommended patient present to the ER for admission to medical service with plan for OR tomorrow. Patient is hemodynamically stable, afebrile. Recommendations: -Admission to medical service -NPO after midnight for OR tomorrow, 06/20, for right BKA stump wound debridement, washout, possiblewound vac placement, all other necessary procedures. Consent signed in chart -Continue pain control as needed Discussed with Dr. Banks. CALLIE TIME I spent a total of 25 minutes of non-overlapping time on the visit. High complexity decision making. Cosigned by Ahmet Banks MD at 06/20/2025 2:18 PM EDT Associated attestation - Ahmet Banks MD - 06/20/2025 2:18 PM EDT Patient seen and examined. Chart reviewed. Imaging study reports appreciated and all images personally reviewed. I have formulated the plan of care. Case discussed with primary team. 61 minutes spenton patient encounter. 20 minutes spent in conjunction with PA. High complexity medical decision making documented in this encounter Plan of Treatment Upcoming Encounters Date Type Department Care Team (Late st Contact Info) Description 07/20/2025 10:00 AM EDT Office Visit Vascular Surgery - [place] [address] [place] [address] Andie Chua PA [address] [place] [address] 06/06/2026 1:30 PM EDT Ancillary Procedure [facility] [address] [facility] [address] [place] [address] Scheduled Referrals Name Type Priority Associated Diagnoses Order Schedule Ambulatory referral to Home Health Outpatient Referral Routine Amputation stump infection ([facility] V24, [facility] V28) 1 Occurrences starting 06/24/2025 until 06/24/2026 documented as of this encounter Procedures Procedure Name Priority Date/Time Associated Diagnosis Comments POC GLUCOSE Routine 06/24/2025 11:52 AM EDT POC GLUCOSE Routine 06/24/2025 7:22 AM EDT POC GLUCOSE Routine 06/23/2025 4:24 PM EDT POC GLUCOSE Routine 06/23/2025 11:20 AM EDT POCT GLUCOSE BLOOD Routine 06/23/2025 9: 33 AM EDT OXYGEN THERAPY, ADULT Routine 06/23/2025 9:21 AM EDT INCISION DRAINAGE EXTREMITY LOWER 06/23/2025 8:22 AM EDT TROPONIN I HIGH SENSITIVITY Timed 06/23/2025 7:25 AM EDT SST - GOLD Routine 06/23/2025 7:25 AM EDT EXTRA TUBES Routine 06/23/2025 7:25 AM EDT LAVENDER - EDTA Routine 06/23/2025 7:25 AM EDT CBC WITH AUTO DIFFERENTIAL Routine 06/23/2025 6:32 AM EDT CBC AND DIFFERENTIAL Routine 06/23/2025 6:32 AM EDT TROPONIN I HIGH SENSITIVITY Timed 06/23/2025 6:31 AM EDT MAGNESIUM Routine 06/23/2025 6:31 AM EDT BASIC METABOLIC PANEL Routine 06/23/2025 6:31 AM EDT ECG 12-LEAD Routine 06/23/2025 5:08 AM EDT VANCOMYCIN, TROUGH Timed 06/21/2025 8: 04 PM EDT CBC WITH AUTO DIFFERENTIAL Routine 06/21/2025 5:27 AM EDT CBC AND DIFFERENTIAL Routine 06/21/2025 5:27 AM EDT BASIC METABOLIC PANEL Routine 06/21/2025 5:27 AM EDT POCT GLUCOSE BLOOD Routine 06/20/2025 7: 33 PM EDT POCT GLUCOSE BLOOD Routine 06/20/2025 5: 27 PM EDT OXYGEN THERAPY, ADULT Routine 06/20/2025 2:58 PM EDT AMPUTATION BELOW KNEE 06/20/2025 2:07 PM EDT Non-healing wound of amputation stump (CMS/HCC V24, CMS/HCC V28) VANCOMYCIN, RANDOM Routine 06/20/2025 9: 50 AM EDT COMPLETE BLOOD COUNT Timed 06/20/2025 6:12 AM EDT BASIC METABOLIC PANEL Routine 06/20/2025 6:12 AM EDT POCT GLUCOSE BLOOD Routine 06/19/2025 10 :49 PM EDT CBC WITH AUTO DIFFERENTIAL STAT 06/19/2025 12:29 PM EDT CBC AND DIFFERENTIAL STAT 06/19/2025 12:29 PM EDT TYPE AND SCREEN STAT 06/19/2025 12:29 PM EDT C-REACTIVE PROTEIN Add-On 06/19/2025 12 :29 PM EDT BASIC METABOLIC PANEL STAT 06/19/2025 12:29 PM EDT documented in this encounter Results * POC Glucose manually resulted (06/24/2025 11:52 AM EDT) Blood Capillary blood specimen / Unknown 06/24/2025 11:52 AM EDT us Kerry Ji MD POINT OF CARE TEST ENTER/ELSA T ORDERABLES Final Result * POC Glucose manually resulted (06/24/2025 7:22 AM EDT) Blood Capillary blood specimen / Unknown 06/24/2025 7:22 AM EDT us Kerry Ji MD POINT OF CARE TEST ENTER/ELSA T ORDERABLES Final Result * POC Glucose manually resulted (06/23/2025 4:24 PM EDT) Glucose POC 138 70 - 110 mg/dL Blood Capillary blood specimen / Unknown 06/23/2025 4:24 PM EDT us Kerry Ji MD POINT OF CARE TEST ENTER/ELSA T ORDERABLES Final Result * (ABNORMAL) POC Glucose manually resulted (06/23/2025 11:20 AM EDT) Glucose POC 98(A) 70 - 110 mg/dL Blood Capillary blood specimen / Unknown 06/23/2025 11:20 AM EDT us Kerry Ji MD POINT OF CARE TEST ENTER/ELSA T ORDERABLES Edited Result - Final * (ABNORMAL) POCT Glucose, blood (06/23/2025 9:33 AM EDT) [facility] Glucose POCT 111(H) 70 - 100 mg/dL 06/23/2025 9:[address] [facility] Blood Capillary blood specimen / Unknown 06/23/2025 9:33 AM EDT 06/23/2025 9:35 AM EDT us Kerry Ji MD LAB POINT OF CARE TE ST DOCKED DEVICE UNSOLICITED RESULTS Final Result [facility] [address] [place] [address], * Lavender tube (06/23/2025 7:25 AM EDT) [facility] Extra Tube Hold for add-ons. 06/23/2025 9:[address] [facility] Comment:Auto resulted. Blood Venous blood specimen / Unknown 06/23/2025 7:25 AM EDT 06/23/2025 7:32 AM EDT us Kerry Ji MD LAB BLOOD ORDERABLES Final R esult [facility] [address] [place] [address], [place] [phone] * SST tube (06/23/2025 7:25 AM EDT) Pathologist [facility] Extra Tube Hold for add-ons. 06/23/2025 9:[address] [facility] Comment:Auto resulted. Blood Venous blood specimen / Unknown 06/23/2025 7:25 AM EDT 06/23/2025 7:32 AM EDT us Kerry Ji MD LAB BLOOD ORDERABLES Final R esult [facility] [address] [place] [address], [place] [phone] * Troponin I high sensitivity (06/23/2025 7:25 AM EDT) Pathologist [facility] High Sensitivity Troponin I 33 <=79 ng/L LAB CHEMISTRY METHOD 06/23/2025 8:[address] [facility] Blood Venous blood specimen / Unknown Venipuncture / Unknown 06/23/2025 7:25 AM EDT 06/23/2025 7:[address] [facility] - 06/23/2025 8:18 AM EDT High levels of biotin in samples may falsely decrease hsTroponin values. Use caution when interpreting hsTroponin results in patients taking biotin who exhibit renal impairment (eGFR <60) or in patients taking more than 20 mg/day of biotin. us Brisa CHACON LAB BLOOD ORDERABLES Final Re sult [facility] [address] [place] [address], * (ABNORMAL) CBC auto differential (06/23/2025 6:32 AM EDT) WBC 8.4 4.8 - 10.8 K/mcL LAB HEMETOLOGY METHOD 06/23/2025 7:[address] [facility] RBC 3.20(L) 4.50 - 5.50 M/mcL LAB HEMETOLOGY METHOD 06/23/2025 7:02 AM [facility] Hemoglobin 10.2(L) 13.5 - 17.5 g/dL LAB HEMETOLOGY METHOD 06/23/2025 7:02 AM [facility] Hematocrit 31.2(L) 42.0 - 54.0 % LAB HEMETOLOGY METHOD 06/23/2025 7:02 AM [facility] MCV 99.0(H) 79.0 - 98.0 FL LAB HEMETOLOGY METHOD 06/23/2025 7:02 AM [facility] MCH 32.4(H) 27.0 - 32.0 pcg LAB HEMETOLOGY METHOD 06/23/2025 7:02 AM [facility] MCHC 32.7 32.0 - 37.0 g/dL LAB HEMETOLOGY METHOD 06/23/2025 7:02 AM [facility] RDW 16.9(H) 11.0 - 15.0 % LAB HEMETOLOGY METHOD 06/23/2025 7:02 AM [facility] Platelets 209 130 - 400 K/mcL LAB HEMETOLOGY METHOD 06/23/2025 7:02 AM [facility] MPV 9.5 7.0 - 11.0 FL LAB HEMETOLOGY METHOD 06/23/2025 7:02 AM [facility] NRBC 0.0 <1.0 % LAB HEMETOLOGY METHOD 06/23/2025 7:02 AM [facility] NRBC Absolute 0.00 <0.10 K/mcL LAB HEMETOLOGY METHOD 06/23/2025 7:02 AM [facility] Neutrophils Relative 60.8 % LAB HEMETOLOGY METHOD 06/23/2025 7:02 AM [facility] Lymphocytes Relative 19.9 % LAB HEMETOLOGY METHOD 06/23/2025 7:02 AM [facility] Monocytes Relative 13.4 % LAB HEMETOLOGY METHOD 06/23/2025 7:02 AM [facility] Eosinophils Relative 5.2 % LAB HEMETOLOGY METHOD 06/23/2025 7:02 AM [facility] Basophils Relative 0.5 % LAB HEMETOLOGY METHOD 06/23/2025 7:02 AM [facility] Immature Granulocytes Relative 0.2 % LAB HEMETOLOGY METHOD 06/23/2025 7:02 AM [facility] Neutrophils Absolute 5.12 1.50 - 7.00 K/mcL LAB HEMETOLOGY METHOD 06/23/2025 7:02 AM [facility] Lymphocytes Absolute 1.68 1.00 - 5.00 K/mcL LAB HEMETOLOGY METHOD 06/23/2025 7:02 AM [facility] Monocytes Absolute 1.13(H) 0.20 - 1.00 K/mcL LAB HEMETOLOGY METHOD 06/23/2025 7:02 AM [facility] Eosinophils Absolute 0.44 0.00 - 0.50 K/mcL LAB HEMETOLOGY METHOD 06/23/2025 7:[address] [facility] Basophils Absolute 0.04 0.00 - 0.20 K/mcL LAB HEMETOLOGY METHOD 06/23/2025 7:[address] [facility] Immature Granulocytes Absolute 0.02 0.00 - 0.03 K/mcL LAB HEMETOLOGY METHOD 06/23/2025 7:[address] [facility] Blood Venous blood specimen / Unknown Venipuncture / Unknown 06/23/2025 6:32 AM EDT 06/23/2025 6:42 AM EDT Kerry Ji MD LAB BLOOD ORDERABLES Final R esult Performing Organization Address [facility] Co de Phone Number [facility] [address] [place] [address], * Troponin I high sensitivity (06/23/2025 6:31 AM EDT) [facility] High Sensitivity Troponin I 33 <=79 ng/L LAB CHEMISTRY METHOD 06/23/2025 7:[address] [facility] Blood Venous blood specimen / Unknown Venipuncture / Unknown 06/23/2025 6:31 AM EDT 06/23/2025 6:[address] [facility] - 06/23/2025 7:28 AM EDT High levels of biotin in samples may falsely decrease hsTroponin values. Use caution when interpreting hsTroponin results in patients taking biotin who exhibit renal impairment (eGFR <60) or in patients taking more than 20 mg/day of biotin. us Brisa CHACON LAB BLOOD ORDERABLES Final Re sult Performing Organization Address [facility]/ZIP Co de Phone Number [facility] [address] [place] [address], * Magnesium (06/23/2025 6:31 AM EDT) [facility] Magnesium 2.0 1.9 - 2.6 mg/dL LAB CHEMISTRY METHOD 06/23/2025 7:14 AM [facility] Blood Venous blood specimen / Unknown Venipuncture / Unknown 06/23/2025 6:31 AM EDT 06/23/2025 6:42 AM EDT us Brisa CHACON LAB BLOOD ORDERABLES Final Re sult [facility] [address] [place] [address], * (ABNORMAL) Basic metabolic panel (06/23/2025 6:31 AM EDT) [facility] Sodium 140 133 - 145 mmol/L LAB CHEMISTRY METHOD 06/23/2025 7:14 AM [facility] Potassium 3.6 3.5 - 5.5 mmol/L LAB CHEMISTRY METHOD 06/23/2025 7:14 AM [facility] Chloride 108 96 - 110 mmol/L LAB CHEMISTRY METHOD 06/23/2025 7:14 AM [facility] CO2 27 21 - 32 mmol/L LAB CHEMISTRY METHOD 06/23/2025 7:14 AM [facility] Anion Gap 5 3 - 11 LAB CHEMISTRY METHOD 06/23/2025 7:14 AM [facility] Glucose 104(H) 70 - 100 mg/dL LAB CHEMISTRY METHOD 06/23/2025 7:14 AM [facility] BUN 23 5 - 25 mg/dL LAB CHEMISTRY METHOD 06/23/2025 7:14 AM [facility] Creatinine 1.25 0.70 - 1.30 mg/dL LAB CHEMISTRY METHOD 06/23/2025 7:14 AM [facility] eGFR 56(L) >=60 mL/min/1. 73m2 LAB CHEMISTRY METHOD 06/23/2025 7:[address] [facility] Comment:Calculation based on the Chronic Kidney Disease Epidemiology Collaboration (CKD-EPI) equation refit without adjustment for race. BUN/Creatinine Ratio 18.4 LAB CHEMISTRY METHOD 06/23/2025 7:[address] [facility] Calcium 9.1 8.5 - 10.5 mg/dL LAB CHEMISTRY METHOD 06/23/2025 7:[address] [facility] Blood Venous blood specimen / Unknown Venipuncture / Unknown 06/23/2025 6:31 AM EDT 06/23/2025 6:42 AM EDT Kerry Ji MD LAB BLOOD ORDERABLES Final R esult Performing Organization Address [facility] Co de Phone Number [facility]) [facility] [address] [place] [address], [place] [phone] * ECG 12 lead (06/23/2025 5:08 AM EDT) Ventricular Rate ECG 70 BPM [facility] Atrial Rate 70 BPM [facility] P-R Interval 256 ms [facility] QRS Duration 116 ms [facility] Q-T Interval 432 ms GEM[facility] QTc 466 ms GEMUSE T [place] -52 degrees GEMUSE ECG Interpretation AV dual-paced rhythm with prolonged AV conduction Abnormal ECG When compared with ECG of 21-MAY-2025 18:41, No significant change was found Confirmed by Brandon FARRELL JAMES ([id number]) on 06/23/2025 10:24:16 PM [facility] 06/23/2025 5:08 AM EDT 06/23/2025 10:24 PM EDT Brisa CHACON ECG ORDERABLES Final Result Performing Organization Address [facility]/ZIP Co de Phone Number [facility] * Vancomycin, trough Please draw after 2000 but prior to next dose @2100, thank you (06/21/2025 8:04 PM EDT) [facility] Vancomycin Trough 14.5 10.0 - 20.0 mcg/mL LAB CHEMISTRY METHOD 06/21/2025 9:[address] [facility] Blood Venous blood specimen / Unknown Venipuncture / Unknown 06/21/2025 8:04 PM EDT 06/21/2025 8:09 PM EDT us Andie CHACON LAB BLOOD ORDERABLES Final Res ult [facility] [address] [place] [address], * (ABNORMAL) CBC auto differential (06/21/2025 5:27 AM EDT) [facility] WBC 6.3 4.8 - 10.8 K/mcL LAB HEMETOLOGY METHOD 06/21/2025 6:46 AM [facility] RBC 3.10(L) 4.50 - 5.50 M/mcL LAB HEMETOLOGY METHOD 06/21/2025 6:46 AM [facility] Hemoglobin 9.8(L) 13.5 - 17.5 g/dL LAB HEMETOLOGY METHOD 06/21/2025 6:46 AM [facility] Hematocrit 31.2(L) 42.0 - 54.0 % LAB HEMETOLOGY METHOD 06/21/2025 6:[address] [facility] MCV 100.3(H) 79.0 - 98.0 FL LAB HEMETOLOGY METHOD 06/21/2025 6:46 AM [facility] MCH 31.5 27.0 - 32.0 pcg LAB HEMETOLOGY METHOD 06/21/2025 6:46 AM [facility] MCHC 31.4(L) 32.0 - 37.0 g/dL LAB HEMETOLOGY METHOD 06/21/2025 6:46 AM [facility] RDW 16.8(H) 11.0 - 15.0 % LAB HEMETOLOGY METHOD 06/21/2025 6:46 AM [facility] Platelets 203 130 - 400 K/mcL LAB HEMETOLOGY METHOD 06/21/2025 6:46 AM [facility] MPV 10.0 7.0 - 11.0 FL LAB HEMETOLOGY METHOD 06/21/2025 6:46 AM [facility] NRBC 0.0 <1.0 % LAB HEMETOLOGY METHOD 06/21/2025 6:46 AM [facility] NRBC Absolute 0.00 <0.10 K/mcL LAB HEMETOLOGY METHOD 06/21/2025 6:46 AM [facility] Neutrophils Relative 72.5 % LAB HEMETOLOGY METHOD 06/21/2025 6:46 AM [facility] Lymphocytes Relative 18.8 % LAB HEMETOLOGY METHOD 06/21/2025 6:46 AM [facility] Monocytes Relative 8.1 % LAB HEMETOLOGY METHOD 06/21/2025 6:46 AM [facility] Eosinophils Relative 0.0 % LAB HEMETOLOGY METHOD 06/21/2025 6:46 AM [facility] Basophils Relative 0.3 % LAB HEMETOLOGY METHOD 06/21/2025 6:46 AM [facility] Immature Granulocytes Relative 0.3 % LAB HEMETOLOGY METHOD 06/21/2025 6:46 AM [facility] Neutrophils Absolute 4.56 1.50 - 7.00 K/mcL LAB HEMETOLOGY METHOD 06/21/2025 6:46 AM [facility] Lymphocytes Absolute 1.18 1.00 - 5.00 K/mcL LAB HEMETOLOGY METHOD 06/21/2025 6:[address] [facility] Monocytes Absolute 0.51 0.20 - 1.00 K/[facility] LAB HEMETOLOGY METHOD 06/21/2025 6:[address] [facility] Eosinophils Absolute 0.00 0.00 - 0.50 K/[facility] LAB HEMETOLOGY METHOD 06/21/2025 6:[address] [facility] Basophils Absolute 0.02 0.00 - 0.20 K/[facility] LAB HEMETOLOGY METHOD 06/21/2025 6:[address] [facility] Immature Granulocytes Absolute 0.02 0.00 - 0.03 K/[facility] LAB HEMETOLOGY METHOD 06/21/2025 6:[address] [facility] Blood Venous blood specimen / Unknown Venipuncture / Unknown 06/21/2025 5:27 AM EDT 06/21/2025 6:20 AM EDT us Andie CHACON LAB BLOOD ORDERABLES Final Res ult [facility] [address] [place] [address], * (ABNORMAL) Basic metabolic panel (06/21/2025 5:27 AM EDT) Sodium 143 133 - 145 mmol/L LAB CHEMISTRY METHOD 06/21/2025 6:[address] [facility] Potassium 4.3 3.5 - 5.5 mmol/L LAB CHEMISTRY METHOD 06/21/2025 6:52 AM [facility] Chloride 109 96 - 110 mmol/L LAB CHEMISTRY METHOD 06/21/2025 6:[address] [facility] CO2 25 21 - 32 mmol/L LAB CHEMISTRY METHOD 06/21/2025 6:[address] [facility] Anion Gap 9 3 - 11 LAB CHEMISTRY METHOD 06/21/2025 6:[address] [facility] Glucose 128(H) 70 - 100 mg/dL LAB CHEMISTRY METHOD 06/21/2025 6:[address] [facility] BUN 28(H) 5 - 25 mg/dL LAB CHEMISTRY METHOD 06/21/2025 6:[address] [facility] Creatinine 1.36(H) 0.70 - 1.30 mg/dL LAB CHEMISTRY METHOD 06/21/2025 6:[address] [facility] eGFR 51(L) >=60 mL/min/1. 73m2 LAB CHEMISTRY METHOD 06/21/2025 6:[address] [facility] Comment:Calculation based on the Chronic Kidney Disease Epidemiology Collaboration (CKD-EPI) equation refit without adjustment for race. BUN/Creatinine Ratio 20.6 LAB CHEMISTRY METHOD 06/21/2025 6:[address] [facility] Calcium 8.9 8.5 - 10.5 mg/dL LAB CHEMISTRY METHOD 06/21/2025 6:[address] [facility] Blood Venous blood specimen / Unknown Venipuncture / Unknown 06/21/2025 5:27 AM EDT 06/21/2025 6:20 AM EDT us Andie CHACON LAB BLOOD ORDERABLES Final Res ult [facility] [address] [place] [address], * (ABNORMAL) POCT Glucose, blood (06/20/2025 7:33 PM EDT) Glucose POCT 151(H) 70 - 100 mg/dL 06/20/2025 7:[address] [facility] Blood Capillary blood specimen / Unknown 06/20/2025 7:33 PM EDT 06/20/2025 7:34 PM EDT us Kerry Ji MD LAB POINT OF CARE TE ST DOCKED DEVICE UNSOLICITED RESULTS Final Result Performing Organization Address [facility] Co de Phone Number [facility] [address] [place] [address], [place] [phone] * (ABNORMAL) POCT Glucose, blood (06/20/2025 5:27 PM EDT) [facility] Glucose POCT 150(H) 70 - 100 mg/dL 06/20/2025 5:[address] [facility] Blood Capillary blood specimen / Unknown 06/20/2025 5:27 PM EDT 06/20/2025 5:29 PM EDT us Kerry Ji MD LAB POINT OF CARE TE ST DOCKED DEVICE UNSOLICITED RESULTS Final Result Performing Organization Address [facility] de Phone Number [facility] [address] [place] [address], [place] [phone] * Vancomycin random (06/20/2025 9:50 AM EDT) [facility] Vancomycin Rm 19.8 mcg/mL LAB CHEMISTRY METHOD 06/20/2025 10:[address] [facility] Blood Venous blood specimen / Unknown Venipuncture / Unknown 06/20/2025 9:50 AM EDT 06/20/2025 9:56 AM EDT us Rashid CHACON LAB BLOOD ORDERABLES Final Resu lt Performing Organization Address [facility]/ZIP Co de Phone Number [facility] [address] [place] [address], [place] [phone] * (ABNORMAL) CBC - Every 3 Days (06/20/2025 6:12 AM EDT) [facility] WBC 7.9 4.8 - 10.8 K/mcL LAB HEMETOLOGY METHOD 06/20/2025 8:08 AM [facility] RBC 3.10(L) 4.50 - 5.50 M/mcL LAB HEMETOLOGY METHOD 06/20/2025 8:08 AM [facility] Hemoglobin 9.8(L) 13.5 - 17.5 g/dL LAB HEMETOLOGY METHOD 06/20/2025 8:08 AM [facility] Hematocrit 31.4(L) 42.0 - 54.0 % LAB HEMETOLOGY METHOD 06/20/2025 8:08 AM [facility] MCV 101.9(H) 79.0 - 98.0 FL LAB HEMETOLOGY METHOD 06/20/2025 8:08 AM [facility] MCH 31.8 27.0 - 32.0 pcg LAB HEMETOLOGY METHOD 06/20/2025 8:08 AM [facility] MCHC 31.2(L) 32.0 - 37.0 g/dL LAB HEMETOLOGY METHOD 06/20/2025 8:08 AM [facility] RDW 17.5(H) 11.0 - 15.0 % LAB HEMETOLOGY METHOD 06/20/2025 8:08 AM [facility] Platelets 194 130 - 400 K/mcL LAB HEMETOLOGY METHOD 06/20/2025 8:08 AM [facility] MPV 9.8 7.0 - 11.0 FL LAB HEMETOLOGY METHOD 06/20/2025 8:08 AM [facility] NRBC 0.0 <1.0 % LAB HEMETOLOGY METHOD 06/20/2025 8:08 AM [facility] NRBC Absolute 0.00 <0.10 K/mcL LAB HEMETOLOGY METHOD 06/20/2025 8:08 AM [facility] Blood Venous blood specimen / Unknown Venipuncture / Unknown 06/20/2025 6:12 AM EDT 06/20/2025 7:52 AM EDT us Andie CHACON LAB BLOOD ORDERABLES Final Res ult [facility] [address] [place] [address], * (ABNORMAL) Basic metabolic panel (06/20/2025 6:12 AM EDT) Sodium 144 133 - 145 mmol/L LAB CHEMISTRY METHOD 06/20/2025 8:49 AM [facility] Potassium 4.0 3.5 - 5.5 mmol/L LAB CHEMISTRY METHOD 06/20/2025 8:49 AM [facility] Chloride 109 96 - 110 mmol/L LAB CHEMISTRY METHOD 06/20/2025 8:49 AM [facility] CO2 28 21 - 32 mmol/L LAB CHEMISTRY METHOD 06/20/2025 8:49 AM [facility] Anion Gap 7 3 - 11 LAB CHEMISTRY METHOD 06/20/2025 8:49 AM [facility] Glucose 108(H) 70 - 100 mg/dL LAB CHEMISTRY METHOD 06/20/2025 8:49 AM [facility] BUN 29(H) 5 - 25 mg/dL LAB CHEMISTRY METHOD 06/20/2025 8:49 AM [facility] Creatinine 1.44(H) 0.70 - 1.30 mg/dL LAB CHEMISTRY METHOD 06/20/2025 8:49 AM [facility] eGFR 48(L) >=60 mL/min/1. 73m2 LAB CHEMISTRY METHOD 06/20/2025 8:49 AM [facility] Comment:Calculation based on the Chronic Kidney Disease Epidemiology Collaboration (CKD-EPI) equation refit without adjustment for race. BUN/Creatinine Ratio 20.1 LAB CHEMISTRY METHOD 06/20/2025 8:[address] [facility] Calcium 8.9 8.5 - 10.5 mg/dL LAB CHEMISTRY METHOD 06/20/2025 8:[address] [facility] Blood Venous blood specimen / Unknown Venipuncture / Unknown 06/20/2025 6:12 AM EDT 06/20/2025 7:51 AM EDT Rashid CHACON LAB BLOOD ORDERABLES Final Resu lt Performing Organization Address City/[facility]/ZIP Co de Phone Number [facility] [address] [place] [address], [place] [phone] * (ABNORMAL) POCT Glucose, blood (06/19/2025 10:49 PM EDT) Glucose POCT 128(H) 70 - 100 mg/dL 06/19/2025 10:[address] [facility] Blood Capillary blood specimen / Unknown 06/19/2025 10:49 PM EDT 06/19/2025 10:51 PM EDT Kerry Ji MD LAB POINT OF CARE TE ST DOCKED DEVICE UNSOLICITED RESULTS Final Result Performing Organization Address [facility]/ZIP Co de Phone Number [facility] [address] [place] [address], [place] [phone] * C-reactive protein (06/19/2025 12:29 PM EDT) C-Reactive Protein 0.47 <=0.50 mg/dL LAB CHEMISTRY METHOD 06/19/2025 7:[address] [facility] Blood Venous blood specimen / Unknown Venipuncture / Unknown 06/19/2025 12:29 PM EDT 06/19/2025 1:28 PM EDT us Rashid CHACON LAB BLOOD ORDERABLES Final Resu lt [facility] [address] [place] [address], [place] [phone] * (ABNORMAL) CBC auto differential (06/19/2025 12:29 PM EDT) WBC 7.5 4.8 - 10.8 K/mcL LAB HEMETOLOGY METHOD 06/19/2025 1:[address] [facility] RBC 3.40(L) 4.50 - 5.50 M/mcL LAB HEMETOLOGY METHOD 06/19/2025 1:[address] [facility] Hemoglobin 11.0(L) 13.5 - 17.5 g/dL LAB HEMETOLOGY METHOD 06/19/2025 1:[address] [facility] Hematocrit 34.7(L) 42.0 - 54.0 % LAB HEMETOLOGY METHOD 06/19/2025 1:[address] [facility] MCV 102.1(H) 79.0 - 98.0 FL LAB HEMETOLOGY METHOD 06/19/2025 1:[address] [facility] MCH 32.4(H) 27.0 - 32.0 pcg LAB HEMETOLOGY METHOD 06/19/2025 1:[address] [facility] MCHC 31.7(L) 32.0 - 37.0 g/dL LAB HEMETOLOGY METHOD 06/19/2025 1:[address] [facility] RDW 17.4(H) 11.0 - 15.0 % LAB HEMETOLOGY METHOD 06/19/2025 1:[address] [facility] Platelets 232 130 - 400 K/mcL LAB HEMETOLOGY METHOD 06/19/2025 1:[address] [facility] MPV 9.8 7.0 - 11.0 FL LAB HEMETOLOGY METHOD 06/19/2025 1:[address] [facility] NRBC 0.0 <1.0 % LAB HEMETOLOGY METHOD 06/19/2025 1:[address] [facility] NRBC Absolute 0.00 <0.10 K/mcL LAB HEMETOLOGY METHOD 06/19/2025 1:[address] [facility] Neutrophils Relative 51.7 % LAB HEMETOLOGY METHOD 06/19/2025 1:[address] [facility] Lymphocytes Relative 28.9 % LAB HEMETOLOGY METHOD 06/19/2025 1:[facility] Monocytes Relative 13.2 % LAB HEMETOLOGY METHOD 06/19/2025 1:36 PM [facility] Eosinophils Relative 5.4 % LAB HEMETOLOGY METHOD 06/19/2025 1:36 PM [facility] Basophils Relative 0.5 % LAB HEMETOLOGY METHOD 06/19/2025 1:36 PM [facility] Immature Granulocytes Relative 0.3 % LAB HEMETOLOGY METHOD 06/19/2025 1:36 PM [facility] Neutrophils Absolute 3.86 1.50 - 7.00 K/mcL LAB HEMETOLOGY METHOD 06/19/2025 1:[address] [facility] Lymphocytes Absolute 2.15 1.00 - 5.00 K/mcL LAB HEMETOLOGY METHOD 06/19/2025 1:[address] [facility] Monocytes Absolute 0.98 0.20 - 1.00 K/mcL LAB HEMETOLOGY METHOD 06/19/2025 1:36 [facility] Eosinophils Absolute 0.40 0.00 - 0.50 K/mcL LAB HEMETOLOGY METHOD 06/19/2025 1:[address] [facility] Basophils Absolute 0.04 0.00 - 0.20 K/[facility] LAB HEMETOLOGY METHOD 06/19/2025 1:[address] [facility] Immature Granulocytes Absolute 0.02 0.00 - 0.03 K/[facility] LAB HEMETOLOGY METHOD 06/19/2025 1:[address] [facility] Blood Venous blood specimen / Unknown Venipuncture / Unknown 06/19/2025 12:29 PM EDT 06/19/2025 1:28 PM EDT Naveen Dickinson MD LAB BLOOD ORDERABLES Final Resul t Performing Organization Address [facility]/ZIP Co de Phone Number [facility] [address] [place] [address], [place] [phone] * Type and screen (06/19/2025 12:29 PM EDT) ABO Group O 06/19/2025 2:[address] [facility] Rh Type Positive 06/19/2025 2:[address] [facility] Antibody Screen Negative 06/19/2025 2:[address] [facility] Blood Venous blood specimen / Unknown Venipuncture / Unknown 06/19/2025 12:29 PM EDT 06/19/2025 1:28 PM EDT us Naveen Dickinson MD LAB BLOOD BANK TEST ORDERABLES F inal Result [facility] [address] [place] [address], [place] [phone] * (ABNORMAL) Basic metabolic panel (06/19/2025 12:29 PM EDT) Sodium 143 133 - 145 mmol/L LAB CHEMISTRY METHOD 06/19/2025 1:[address] [facility] Potassium 4.4 3.5 - 5.5 mmol/L LAB CHEMISTRY METHOD 06/19/2025 1:[address] [facility] Chloride 110 96 - 110 mmol/L LAB CHEMISTRY METHOD 06/19/2025 1:55 PM [facility] CO2 28 21 - 32 mmol/L LAB CHEMISTRY METHOD 06/19/2025 1:55 PM [facility] Anion Gap 5 3 - 11 LAB CHEMISTRY METHOD 06/19/2025 1:55 PM [facility] Glucose 118(H) 70 - 100 mg/dL LAB CHEMISTRY METHOD 06/19/2025 1:55 PM [facility] BUN 31(H) 5 - 25 mg/dL LAB CHEMISTRY METHOD 06/19/2025 1:55 PM [facility] Creatinine 2.01(H) 0.70 - 1.30 mg/dL LAB CHEMISTRY METHOD 06/19/2025 1:55 PM [facility] eGFR 32(L) >=60 mL/min/1. 73m2 LAB CHEMISTRY METHOD 06/19/2025 1:55 PM [facility] Comment:Calculation based on the Chronic Kidney Disease Epidemiology Collaboration (CKD-EPI) equation refit without adjustment for race. BUN/Creatinine Ratio 15.4 LAB CHEMISTRY METHOD 06/19/2025 1:55 PM [facility] Calcium 9.1 8.5 - 10.5 mg/dL LAB CHEMISTRY METHOD 06/19/2025 1:55 PM [facility] Blood Venous blood specimen / Unknown Venipuncture / Unknown 06/19/2025 12:29 PM EDT 06/19/2025 1:28 PM EDT us Naveen Dickinson MD LAB BLOOD ORDERABLES Final Resul t 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, CMS/HCC V28) documented in this encounter Administered Medications Inactive Administered Medications - up to 3 most recent administrations Medication Order MAR Action Action Date Dose Rate Site amLODIPine (NORVASC) tablet 5 mg 5 mg, oral, Once, On Wed06/22/25 at 1600, For 1 dose Given 06/22/2025 3:38 PM EDT 5 mg aspirin chewable tablet 81 mg 81 mg, oral, Daily, First dose on Wed06/20/25 at 0900 Given 06/24/2025 8:15 AM EDT 81 mg Given 06/22/2025 8:00 AM EDT 81 mg Given 06/21/2025 8:11 AM EDT 81 mg atenoloL (TENORMIN) tablet 50 mg 50 mg, oral, Nightly, First dose on Wed06/19/25 at 2100 Given 06/23/2025 9:29 PM EDT 50 mg Given 06/22/2025 9:11 PM EDT 50 mg Given 06/21/2025 8:20 PM EDT 50 mg atorvastatin (LIPITOR) tablet 80 mg 80 mg, oral, Nightly, First dose on Wed06/19/25 at 2100 Given 06/23/2025 9:29 PM EDT 80 mg Given 06/22/2025 9:11 PM EDT 80 mg Given 06/21/2025 8:19 PM EDT 80 mg bisacodyL (DULCOLAX) EC tablet 10 mg 10 mg, oral, Daily PRN, constipation, Starting on Wed06/19/25 at 1926, 1st line for treatment of constipation - give scheduled if no bowel movement in past 24 hours. Do not crush, chew, or split. dextrose (D50W) 50% injection 12.5 g 12.5 g, intravenous, Every 15 min PRN, low blood sugar, moderate hypoglycemia *Patient is Unconscious, NPO, unable to swallow: BG 54 - 69 mg/dl*, Starting on Wed06/19/25 at 1927 dextrose (D50W) 50% injection 25 g 25 g, intravenous, Every 15 min PRN, low blood sugar, severe hypoglycemia *Patient is Unconscious, NPO, unable to swallow: BG LESS than 54 mg/dL*, Starting on Wed06/19/25 at 192 dextrose 15 gram/60 mL oral solution 15 g 15 g, oral, Every 15 min PRN, low blood sugar, hypoglycemia *Patient conscious AND able to drink and swallow safely*, Starting on Wed06/19/25 at 192 dextrose 15 gram/60 mL oral solution 30 g 30 g, oral, Every 15 min PRN, low blood sugar, hypoglycemia *Patient conscious AND able to drink and swallow safely*, Starting on Wed06/19/25 at 1927 furosemide (LASIX) tablet 20 mg 20 mg, oral, Daily, First dose on Wed06/19/25 at 1945 Given 06/24/2025 8:15 AM EDT 20 mg Given 06/22/2025 8:00 AM EDT 20 mg gabapentin (NEURONTIN) capsule 100 mg 100 mg, oral, Nightly, First dose on Wed06/19/25 at 2100 Given 06/23/2025 9:29 PM EDT 100 mg Given 06/22/2025 9:11 PM EDT 100 mg Given 06/21/2025 8:20 PM EDT 100 mg glucagon HCL injection 1 mg 1 mg, intramuscular, Once as needed, low blood sugar, severe hypoglycemia, Starting on Audrey 06/21/25 at 0857, For 1 dose haloperidol lactate (HALDOL) injection 1 mg 1 mg, intravenous, Once as needed, nausea and vomitting, Starting on Wed06/20/25 at 1458, For 1 dose, Recovery (only), Give as first line antiemetic agent. May be ordered via either intramuscular or intravenous route. If ordered IV, maximum of 5 mg/minute. Given 06/20/2025 4:06 PM EDT 1 mg heparin (UFH) injection 5,000 Units 5,000 Units, subcutaneous, Every 12 hours scheduled, First dose (after last modification) on Wed06/20/25 at 2100, Enter Indication for use of heparin (UFH) instead of enoxaparin (LOVENOX): (free text): xavier, Indication: VTE Prophylaxis, Indications: Prophylaxis of Venous ThromboembolismIndications:Pr ophylaxis of Venous Thromboembolism Given 06/24/2025 8:14 AM EDT 5,000 Units Left Lower Abdomen Given 06/23/2025 9:28 PM EDT 5,000 Units L eft Upper Abdomen Given 06/22/2025 9:10 PM EDT 5,000 Units L eft Upper Abdomen hydrALAZINE (APRESOLINE) injection 10 mg 10 mg, intravenous, Every 6 hours PRN, systolic BP greater than:, SBP >170 or DBB >95mmHg, Starting on Wed06/22/25 at 1531 Given 06/22/2025 11:42 PM EDT 10 mg HYDROmorphone (DILAUDID) injection 0.25 mg 0.25 mg, intravenous, Once, On Wed06/23/25 at 0615, For 1 dose Given 06/23/2025 6:40 AM EDT 0.25 mg HYDROmorphone (DILAUDID) injection 0.5 mg 0.5 mg, intravenous, Once, On Wed06/19/25 at 1500, For 1 dose Given 06/19/2025 3:11 PM EDT 0.5 mg HYDROmorphone (DILAUDID) injection 0.5 mg 0.5 mg, intravenous, Every 5 min PRN, severe pain, Pain, Starting on Wed06/20/25 at 1458, For 4 doses, Recovery (only) Given 06/20/2025 3:50 PM EDT 0.5 mg Given 06/20/2025 3:37 PM EDT 0.5 mg HYDROmorphone (DILAUDID) injection 0.5 mg 0.5 mg, intravenous, Once, On Wed06/22/25 at 0745, For 1 dose Given 06/22/2025 7:47 AM EDT 0.5 mg HYDROmorphone (DILAUDID) injection 1 mg 1 mg, intravenous, Once, On Wed06/19/25 at 1602, For 1 dose Given 06/19/2025 4:39 PM EDT 1 mg HYDROmorphone (DILAUDID) injection 1 mg 1 mg, intravenous, Every 4 hours PRN, severe pain or when therapies for moderate pain were not effective, Starting on Wed06/19/25 at 1926 Given 06/21/2025 8:00 AM EDT 1 mg Given 06/20/2025 8:30 AM EDT 1 mg Given 06/20/2025 4:40 AM EDT 1 mg HYDROmorphone (DILAUDID) injection 1 mg 1 mg, intravenous, Every 3 hours PRN, severe pain, Starting on Wed06/21/25 at 1018 Given 06/22/2025 4:09 AM EDT 1 mg Given 06/22/2025 12:53 AM EDT 1 mg Given 06/21/2025 9:47 PM EDT 1 mg HYDROmorphone (DILAUDID) injection 1 mg 1 mg, intravenous, Every 3 hours PRN, severe breakthrough pain, Starting on Wed06/22/25 at 1303 Given 06/24/2025 8:15 AM EDT 1 mg Given 06/24/2025 1:16 AM EDT 1 mg Given 06/23/2025 4:44 AM EDT 1 mg insulin glargine (LANTUS) injection 20 Units 20 Units, subcutaneous, Nightly, First dose on Wed06/19/25 at 2100, Notify provider: -If patient is currently or will become NPO -If TPN was or will be interrupted or discontinued -For approval to hold long acting insulin Given 06/21/2025 8:19 PM EDT 20 Units Left Lower Abdomen Given 06/20/2025 9:22 PM EDT 20 Units Le ft Upper Arm (Back) insulin lispro injection 1-6 Units 1-6 Units, subcutaneous, 3 times daily before meals, First dose on Wed06/20/25 at 0730, Indication: Total Daily Dose (TDD) LESS than 40 units Correction Scale: Low Dose Administer with meal and/or mealtime dose of insulin to correct high blood glucose If mealtime insulin dose not given (e.g. patient NPO or not eating), still administer correction factor for high blood glucose Given 06/21/2025 11:52 AM EDT 1 Units Left Lower Abdomen lactated Ringer's infusion 100 mL/hr, intravenous, Continuous, Starting on Wed06/19/25 at 1529 New Bag 06/20/2025 5:30 PM EDT 100 mL/hr 100 mL/hr Continued by Anesthesia 06/20/2025 2:07 PM EDT 100 mL/hr New Bag 06/20/2025 1:32 PM EDT LORazepam (ATIVAN) tablet 0.5 mg 0.5 mg, oral, 2 times daily, First dose on Wed06/19/25 at 2100 Given 06/24/2025 8:15 AM EDT 0.5 mg Given 06/23/2025 9:29 PM EDT 0.5 mg Given 06/22/2025 9:11 PM EDT 0.5 mg multivitamin tablet 1 tablet 1 tablet (1 each), oral, Daily, First dose on Audrey 06/21/25 at 1430 Given 06/24/2025 8:15 AM EDT 1 tablet Given 06/22/2025 8:00 AM EDT 1 tablet Given 06/21/2025 2:13 PM EDT 1 tablet naloxone (NARCAN) injection 0.04 mg 0.04 mg, intravenous, As needed, opioid reversal, IV Push every 1 min for 10 doses, Starting on Wed06/19/25 at 1926, For 10 doses, To Dilute: -Use 0.4 mg/mL vial , withdraw 1 mL and add 9 mL NS -FOLLOWING DILUTION, dose of 0.04 mg = 1 mL For PARTIAL Opioid Reversal: -For respiratory rate LESS than 10 or Pasero Opioid-induced Sedation Scale (POSS) equal to 4 -May be repeated at 1 minute intervals to restore adequate respirations -Administer up to 10 doses (0.4 mg) ondansetron (PF) (ZOFRAN) injection 4 mg 4 mg, intravenous, Every 8 hours PRN, vomiting, nausea, Starting on Wed06/19/25 at 1926, -ONLY give IV if patient is unable to take orally. -If inadequate response within 30 minutes, proceed to next-line agent or contact provider if no further options ordered. ondansetron ODT (ZOFRAN-ODT) disintegrating tablet 4 mg 4 mg, oral, Every 8 hours PRN, vomiting, nausea, Starting on Wed06/19/25 at 1926, -Give IV if patient is unable to take orally. -If inadequate response within 30 minutes, proceed to next-line agent or contact provider if no further options ordered. For ODT tablets: -Do not remove from blister pack until just before administering. -Patient should allow tablet to dissolve on tongue. oxyCODONE (ROXICODONE) immediate release tablet 10 mg 10 mg, oral, Every 4 hours PRN, severe pain, moderate pain or when therapies for mild pain were not effective, Starting on Wed06/22/25 at 1304 Given 06/24/2025 1:51 PM EDT 10 mg Given 06/24/2025 6:14 AM EDT 10 mg Given 06/23/2025 9:29 PM EDT 10 mg oxyCODONE (ROXICODONE) immediate release tablet 5 mg 5 mg, oral, Every 6 hours PRN, moderate pain or when therapies for mild pain were not effective, Starting on Wed06/19/25 at 1926 Given 06/21/2025 6:27 AM EDT 5 mg Given 06/20/2025 9:11 PM EDT 5 mg oxyCODONE (ROXICODONE) immediate release tablet 5 mg 5 mg, oral, Every 4 hours PRN, moderate pain or when therapies for mild pain were not effective, Starting on Wed06/21/25 at 1017 Given 06/21/2025 8:19 PM EDT 5 mg oxyCODONE (ROXICODONE) immediate release tablet 5 mg 5 mg, oral, Every 4 hours PRN, moderate pain, Starting on Wed06/22/25 at 1304 pantoprazole (PROTONIX) EC tablet 40 mg 40 mg, oral, Every morning before breakfast, First dose on Wed06/20/25 at 0700, Do not crush, chew, or split. Given 06/24/2025 6:14 AM EDT 40 mg Given 06/23/2025 6:41 AM EDT 40 mg Given 06/22/2025 6:14 AM EDT 40 mg piperacillin-tazobactam (ZOSYN) 2.25 g in sodium chloride 0.9 % 100 mL IVPB 2.25 g, intravenous, at 200 mL/hr, Administer over 30 Minutes, Every 6 hours, First dose on Wed06/19/25 at 1945, For 7 days, Do not administer through same line as lactated ringer s fluids (LR), Indication: Intra-abdominal, Skin/Soft Tissue New Bag 06/20/2025 7:06 AM EDT 2.25 g 200 mL/hr New Bag 06/19/2025 8:37 PM EDT 2.25 g 200 mL/hr piperacillin-tazobactam (ZOSYN) 2.25 g in sodium chloride 0.9 % 100 mL IVPB 2.25 g, intravenous, at 200 mL/hr, Administer over 30 Minutes, Every 6 hours, First dose (after last modification) on Wed06/20/25 at 1400, For 26 doses, Do not administer through same line as lactated ringer s fluids (LR), Indication: Intra-abdominal, Skin/Soft Tissue New Bag 06/24/2025 8:14 AM EDT 2.25 g 200 mL/hr New Bag 06/24/2025 1:22 AM EDT 2.25 g 200 mL/hr New Bag 06/23/2025 8:40 PM EDT 2.25 g 200 mL/hr vancomycin (VANCOCIN) 1,000 mg in sodium chloride 0.9 % 250 mL IVPB 1,000 mg, intravenous, at 250 mL/hr, Administer over 60 Minutes, Every 24 hours, First dose (after last modification) on Wed06/20/25 at 2100, For 5 days, Trough goal = 10-15, Indication: Skin/Soft Tissue New Bag 06/23/2025 9:28 PM EDT 1,000 mg 250 mL/hr New Bag 06/22/2025 9:45 PM EDT 1,000 mg 250 mL/hr New Bag 06/21/2025 9:48 PM EDT 1,000 mg 250 mL/hr vancomycin (VANCOCIN) IVPB 1,500 mg in 0.9 % sodium chloride 500 mL - CNR 1,500 mg (rounded from 1,624 mg = 20 mg/kg 81.2 kg), intravenous, at 333.3 mL/hr, Administer over 90 Minutes, Once, On Wed06/19/25 at 2100, For 1 dose, Indication: Skin/Soft Tissue New Bag 06/19/2025 9:55 PM EDT 1,500 mg 333.3 mL/hr documented in this encounter Discontinued Medications Medication Sig Discontinue Reason Start Date End Da te Ozempic 1 mg/dose (4 mg/3 mL) injection pen Inject 1 mg under the skin every 7 (seven) days. Alternate therapy 10/13/2024 06/19/2025 oxyCODONE (ROXICODONE) 5 mg immediate release tablet Take 1 tablet (5 mg total) by mouth every 8 (eight) hours if needed. for pain Max Daily Amount: 15 mg 06/24/2025 collagenase (SantyL) 250 unit/gram ointment Apply topically 1 (one) time each day. Apply nickel thickness layer to right knee wound daily Stop Taking at Discharge 06/06/2025 06/24/2025 documented as of this encounter Historical Medications * This list may reflect changes made after this encounter. fenofibrate (TRICOR) 145 mg tablet Take 1 tablet (145 mg total) by mouth 1 (one) time each day. insulin degludec (Tresiba FlexTouch U-200) 200 unit/mL (3 mL) CONCENTRATED injection pen Inject 28 Units under the skin at bedtime as needed (HYPERGLYCEMIA ). Ozempic 2 mg/dose (8 mg/3 mL) injection pen Inject 2 mg under the skin every 7 (seven) days. WEDNESDAY polyethylene glycol (MIRALAX) 17 gram packet Take 17 g by mouth 1 (one) time each day. oxyCODONE (ROXICODONE) 5 mg immediate release tablet Take 1 tablet (5 mg total) by mouth every 8 (eight) hours if needed. for pain Max Daily Amount: 15 mg 5 added in this encounter Active and Recently Administered Medications Times are shown in EDT. Scheduled Medication Order 06/22/2025 06/23/2025 06/24/2025 amLODIPine (NORVASC) tablet 5 mg (COMPLETED) 5 mg, oral, Once, On Wed06/22/25 at 1600, For 1 dose 1538 (Given - Provider: Tania Miller RN) aspirin chewable tablet 81 mg 81 mg, oral, Daily, First dose on Wed06/20/25 at 0900 0800 (Given - Provider: Tania Miller RN) 0829 (MAR Hold - Provider: Automatic Transfer Provider - Reason: Patient not available)0900 (Not Given - Provider: Veronica Michelle RN - Reason: Patient not available)1109 (MAR Unhold - Provider: Automatic Transfer Provider) 0815 (Given - Provider: Eli Barr, GLO) atenoloL (TENORMIN) tablet 50 mg 50 mg, oral, Nightly, First dose on Wed06/19/25 at 2099 2110 (Given - Provider: Angel Abdi RN) 0829 ([facility] Hold - Provider: Automatic Transfer Provider - Reason: Patient not available)110 ([facility] Unhold - Provider: Automatic Transfer Provider)2128 (Given - Provider: Angel Abdi, RN) atorvastatin (LIPITOR) tablet 80 mg 80 mg, oral, Nightly, First dose on Wed06/19/25 at 2099 2110 (Given - Provider: Angel Abdi RN) 0829 ([facility] Hold - Provider: Automatic Transfer Provider - Reason: Patient not available)110 ([facility] Unhold - Provider: Automatic Transfer Provider)2128 (Given - Provider: Angel Abdi, GLO) furosemide (LASIX) tablet 20 mg 20 mg, oral, Daily, First dose on Wed06/19/25 at 1945 0800 (Given - Provider: Tania Miller RN) 0829 ([facility] Hold - Provider: Automatic Transfer Provider - Reason: Patient not available)0900 (Not Given - Provider: Veronica Michelle RN - Reason: Patient not available)110 ([facility] Unhold - Provider: Automatic Transfer Provider) 0815 (Given - Provider: Eli Barr, GLO) gabapentin (NEURONTIN) capsule 100 mg 100 mg, oral, Nightly, First dose on Wed06/19/25 at 2099 2110 (Given - Provider: Angel Abdi RN) 0829 ([facility] Hold - Provider: Automatic Transfer Provider - Reason: Patient not available)110 ([facility] Unhold - Provider: Automatic Transfer Provider)2128 (Given - Provider: Angel Abdi, GLO) heparin (UFH) injection 5,000 Units 5,000 Units, subcutaneous, Every 12 hours scheduled, First dose (after last modification) on Wed06/20/25 at 2100, Enter Indication for use of heparin (UFH) instead of enoxaparin (LOVENOX): (free text): xavier, Indication: VTE Prophylaxis, Indications: Prophylaxis of Venous Thromboembolism 0800 (Given - Provider: Tania Miller RN)2109 (Given - Provider: Angel Abdi RN) 0829 (DEC Hold - Provider: Automatic Transfer Provider - Reason: Patient not available)0900 (Not Given - Provider: Veronica Michelle RN - Reason: Patient not available)110 (DEC Unhold - Provider: Automatic Transfer Provider)2127 (Given - Provider: Angel Abdi RN) 0814 (Given - Provider: Eli Barr, GLO) HYDROmorphone (DILAUDID) injection 0.25 mg (COMPLETED) 0.25 mg, intravenous, Once, On Wed06/23/25 at 0615, For 1 dose 0640 (Given - Provider: Angel Abdi RN) HYDROmorphone (DILAUDID) injection 0.5 mg (COMPLETED) 0.5 mg, intravenous, Once, On Wed06/22/25 at 0745, For 1 dose 0747 (Given - Provider: Tania Miller RN) insulin glargine (LANTUS) injection 20 Units 20 Units, subcutaneous, Nightly, First dose on Wed06/19/25 at 2100, Notify provider: -If patient is currently or will become NPO -If TPN was or will be interrupted or discontinued -For approval to hold long acting insulin 2111 (Not Given - Provider: Angel Abdi RN - Reason: Patient/Resident/Ag ent refused - education provided - Comment: poc- 101) 08 (DEC Hold - Provider: Automatic Transfer Provider - Reason: Patient not available)110 (DEC Unhold - Provider: Automatic Transfer Provider)2129 (Not Given - Provider: Angel Abdi RN - Reason: Patient/Resident/Ag ent refused - education provided - Comment: poc- 104) insulin lispro injection 1-6 Units 1-6 Units, subcutaneous, 3 times daily before meals, First dose on Wed06/20/25 at 0730, Indication: Total Daily Dose (TDD) LESS than 40 units Correction Scale: Low Dose Administer with meal and/or mealtime dose of insulin to correct high blood glucose If mealtime insulin dose not given (e.g. patient NPO or not eating), still administer correction factor for high blood glucose 0740 (Not Given - Provider: Tania Miller RN - Reason: Order parameters not met - Comment: blood sugar 90 own freestyle)110 (Not Given - Provider: Tania Miller RN - Reason: Order parameters not met - Comment: blood sugar 143 own freestyle)1619 (Not Given - Provider: Tania Miller RN - Reason: Order parameters not met - Comment: blood sugar 115 freestyle) 0730 (Not Given - Provider: Veronica Michelle RN - Reason: NPO)0829 (DEC Hold - Provider: Automatic Transfer Provider - Reason: Patient not available)1109 (DEC Unhold - Provider: Automatic Transfer Provider)1124 (Not Given - Provider: Veronica Michelle RN - Reason: Order parameters not met)1628 (Not Given - Provider: Veronica Michelle RN - Reason: See Provider Order) 0733 (Not Given - Provider: Eli Barr RN - Reason: Order parameters not met - Comment: poc 91)1135 (Not Given - Provider: Eli Barr RN - Reason: Order parameters not met)1630 (Canceled Entry - Provider: Automatic Discharge Provider - Comment: Automatically canceled at discontinue of medication order) LORazepam (ATIVAN) tablet 0.5 mg 0.5 mg, oral, 2 times daily, First dose on Wed06/19/25 at 2100 0800 (Given - Provider: Tania Miller RN)211 (Given - Provider: Angel Abdi, GLO) 0829 (DEC Hold - Provider: Automatic Transfer Provider - Reason: Patient not available)0900 (Not Given - Provider: Veronica Michelle RN - Reason: Patient not available)1109 (DEC Unhold - Provider: Automatic Transfer Provider)212 (Given - Provider: Angel Abdi, GLO) 0815 (Given - Provider: Eli Barr RN) multivitamin tablet 1 tablet 1 tablet (1 each), oral, Daily, First dose on Wed06/21/25 at 1430 0800 (Given - Provider: Tania Miller RN) 0829 (DEC Hold - Provider: Automatic Transfer Provider - Reason: Patient not available)0900 (Not Given - Provider: Veronica Michelle RN - Reason: Patient not available)1109 (DEC Unhold - Provider: Automatic Transfer Provider) 0815 (Given - Provider: Eli Barr RN) pantoprazole (PROTONIX) EC tablet 40 mg 40 mg, oral, Every morning before breakfast, First dose on Wed06/20/25 at 0700, Do not crush, chew, or split. 0614 (Given - Provider: Andie Cunningham RN) 0641 (Given - Provider: Angel Abdi RN)0829 (DEC Hold - Provider: Automatic Transfer Provider - Reason: Patient not available)1109 (DEC Unhold - Provider: Automatic Transfer Provider) 0614 (Given - Provider: Angel Abdi, GLO) piperacillin-tazobactam (ZOSYN) 2.25 g in sodium chloride 0.9 % 100 mL IVPB 2.25 g, intravenous, at 200 mL/hr, Administer over 30 Minutes, Every 6 hours, First dose (after last modification) on Wed06/20/25 at 1400, For 26 doses, Do not administer through same line as lactated ringer s fluids (LR), Indication: Intra-abdominal, Skin/Soft Tissue 0100 (New Bag - Provider: Andie Cunningham RN)0134 (Stopped - Provider: Andie Cunningham RN)0747 (New Bag - Provider: Tania Miller RN)0828 (Stopped - Provider: Tania Miller, GLO)1350 (New Bag - Provider: Tania Miller, GLO)1420 (Stopped - Provider: Tania Miller, GLO)2055 (New Bag - Provider: Angel Abdi RN)2252 (Stopped - Provider: Angel Abdi RN) 0142 (New Bag - Provider: Angel Abdi RN)0222 (Stopped - Provider: Angel Abdi RN)0822 (New Bag - Provider: Nickolas Wesley CRNA)0829 (DEC Hold - Provider: Automatic Transfer Provider - Reason: Patient not available)0832 (Canceled Entry - Provider: Nickolas Wesley CRNA)1109 (DEC Unhold - Provider: Automatic Transfer Provider)1415 (New Bag - Provider: Veronica Michelle RN)1445 (Stopped - Provider: Veronica Michelle RN)2040 (New Bag - Provider: Angel Abdi RN)2206 (Stopped - Provider: Angel Abdi GLO) 0122 (New Bag - Provider: Angel Abdi RN)0149 (Stopped - Provider: Angel Abdi, GLO)0814 (New Bag - Provider: Eli Barr, RN)0846 (Stopped - Provider: Eli Barr, RN)1400 (Canceled Entry - Provider: Automatic Discharge Provider - Comment: Automatically canceled at discontinue of medication order) vancomycin (VANCOCIN) 1,000 mg in sodium chloride 0.9 % 250 mL IVPB 1,000 mg, intravenous, at 250 mL/hr, Administer over 60 Minutes, Every 24 hours, First dose (after last modification) on Wed06/20/25 at 2100, For 5 days, Trough goal = 10-15, Indication: Skin/Soft Tissue 2145 (New Bag - Provider: Angel Abdi, GLO) 0147 (Stopped - Provider: Angel Abdi RN)0829 ([facility] Hold - Provider: Automatic Transfer Provider - Reason: Patient not available)110 ([facility] Unhold - Provider: Automatic Transfer Provider)8 (New Bag - Provider: Angel Abdi RN) 0001 (Stopped - Provider: Angel Abdi RN) PRN Medication Order 06/22/2025 06/23/2025 06/24/2025 bisacodyL (DULCOLAX) EC tablet 10 mg 10 mg, oral, Daily PRN, constipation, Starting on Wed06/19/25 at 1926, 1st line for treatment of constipation - give scheduled if no bowel movement in past 24 hours. Do not crush, chew, or split. 0829 ([facility] Hold - Provider: Automatic Transfer Provider - Reason: Patient not available)1109 ([facility] Unhold - Provider: Automatic Transfer Provider) dextrose (D50W) 50% injection 12.5 g 12.5 g, intravenous, Every 15 min PRN, low blood sugar, moderate hypoglycemia *Patient is Unconscious, NPO, unable to swallow: BG 54 - 69 mg/dl*, Starting on Wed06/19/25 at 1927 0829 ([facility] Hold - Provider: Automatic Transfer Provider - Reason: Patient not available)1109 ([facility] Unhold - Provider: Automatic Transfer Provider) dextrose (D50W) 50% injection 25 g 25 g, intravenous, Every 15 min PRN, low blood sugar, severe hypoglycemia *Patient is Unconscious, NPO, unable to swallow: BG LESS than 54 mg/dL*, Starting on Wed06/19/25 at 1927 0829 ([facility] Hold - Provider: Automatic Transfer Provider - Reason: Patient not available)1109 ([facility] Unhold - Provider: Automatic Transfer Provider) dextrose 15 gram/60 mL oral solution 15 g 15 g, oral, Every 15 min PRN, low blood sugar, hypoglycemia *Patient conscious AND able to drink and swallow safely*, Starting on Wed06/19/25 at 1927 0829 ([facility] Hold - Provider: Automatic Transfer Provider - Reason: Patient not available)1109 ([facility] Unhold - Provider: Automatic Transfer Provider) dextrose 15 gram/60 mL oral solution 30 g 30 g, oral, Every 15 min PRN, low blood sugar, hypoglycemia *Patient conscious AND able to drink and swallow safely*, Starting on Wed06/19/25 at 1927 0829 ([facility] - Provider: Automatic Transfer Provider - Reason: Patient not available)1109 ([facility] Unhold - Provider: Automatic Transfer Provider) glucagon HCL injection 1 mg 1 mg, intramuscular, Once as needed, low blood sugar, severe hypoglycemia, Starting on Wed06/21/25 at 0857, For 1 dose 0829 ([facility] Hold - Provider: Automatic Transfer Provider - Reason: Patient not available)1109 ([facility] Unhold - Provider: Automatic Transfer Provider) hydrALAZINE (APRESOLINE) injection 10 mg 10 mg, intravenous, Every 6 hours PRN, systolic BP greater than:, SBP >170 or DBB >95mmHg, Starting on Wed06/22/25 at 1531 2342 (Given - Provider: Angel Abdi RN - Comment: 174/80) 0829 ([facility] Hold - Provider: Automatic Transfer Provider - Reason: Patient not available)1109 ([facility] Unhold - Provider: Automatic Transfer Provider) HYDROmorphone (DILAUDID) injection 1 mg (CANCELED) 1 mg, intravenous, Every 3 hours PRN, severe pain, Starting on Audrey 06/21/25 at 1018 0053 (Given - Provider: Andie Cunningham RN)0409 (Given - Provider: Andie Cunningham RN) HYDROmorphone (DILAUDID) injection 1 mg 1 mg, intravenous, Every 3 hours PRN, severe breakthrough pain, Starting on Wed06/22/25 at 1303 2112 (Given - Provider: Angel Abdi, RN) 0444 (Given - Provider: Angel Abdi, RN)0829 ([facility] Hold - Provider: Automatic Transfer Provider - Reason: Patient not available)1109 ([facility] Unhold - Provider: Automatic Transfer Provider) 0116 (Given - Provider: Angel Abdi, RN)0815 (Given - Provider: Eli Barr RN) naloxone (NARCAN) injection 0.04 mg 0.04 mg, intravenous, As needed, opioid reversal, IV Push every 1 min for 10 doses, Starting on Wed06/19/25 at 1926, For 10 doses, To Dilute: -Use 0.4 mg/mL vial , withdraw 1 mL and add 9 mL NS -FOLLOWING DILUTION, dose of 0.04 mg = 1 mL For PARTIAL Opioid Reversal: -For respiratory rate LESS than 10 or [place] Opioid-induced Sedation Scale (POSS) equal to 4 -May be repeated at 1 minute intervals to restore adequate respirations -Administer up to 10 doses (0.4 mg) 08 ([facility] Hold - Provider: Automatic Transfer Provider - Reason: Patient not available)1109 ([facility] Unhold - Provider: Automatic Transfer Provider) ondansetron (PF) (ZOFRAN) injection 4 mg(Linked Group 1) 4 mg, intravenous, Every 8 hours PRN, vomiting, nausea, Starting on Wed06/19/25 at 1926, -ONLY give IV if patient is unable to take orally. -If inadequate response within 30 minutes, proceed to next-line agent or contact provider if no further options ordered. 0829 ([facility] Hold - Provider: Automatic Transfer Provider - Reason: Patient not available)1109 ([facility] Unhold - Provider: Automatic Transfer Provider) ondansetron ODT (ZOFRAN-ODT) disintegrating tablet 4 mg(Linked Group 1) 4 mg, oral, Every 8 hours PRN, vomiting, nausea, Starting on Wed06/19/25 at 1926, -Give IV if patient is unable to take orally. -If inadequate response within 30 minutes, proceed to next-line agent or contact provider if no further options ordered. For ODT tablets: -Do not remove from blister pack until just before administering. -Patient should allow tablet to dissolve on tongue. 0829 ([facility] Hold - Provider: Automatic Transfer Provider - Reason: Patient not available)1109 ([facility] Unhold - Provider: Automatic Transfer Provider) oxyCODONE (ROXICODONE) immediate release tablet 10 mg 10 mg, oral, Every 4 hours PRN, severe pain, moderate pain or when therapies for mild pain were not effective, Starting on Wed06/22/25 at 1304 1401 (Given - Provider: Tania Miller, RN)1924 (Given - Provider: Tania Miller RN) 0339 (Given - Provider: Angel Abdi RN)0829 ([facility] Hold - Provider: Automatic Transfer Provider - Reason: Patient not available)1109 ([facility] Unhold - Provider: Automatic Transfer Provider)1209 (Given - Provider: Madeline Cook RN)2129 (Given - Provider: Angel Abdi RN) 0614 (Given - Provider: Angel Abdi RN)1351 (Given - Provider: Eli Barr RN) oxyCODONE (ROXICODONE) immediate release tablet 5 mg 5 mg, oral, Every 4 hours PRN, moderate pain, Starting on Wed06/22/25 at 1304 0829 ([facility] Hold - Provider: Automatic Transfer Provider - Reason: Patient not available)1109 ([facility] Unhold - Provider: Automatic Transfer Provider) Linked Groups Order Group 1: ondansetron ODT (ZOFRAN-ODT) disintegrating tablet 4 mgJump to med 4 mg, oral, Every 8 hours PRN, vomiting, nausea, Starting on Wed06/19/25 at 1926, -Give IV if patient is unable to take orally. -If inadequate response within 30 minutes, proceed to next-line agent or contact provider if no further options ordered. For ODT tablets: -Do not remove from blister pack until just before administering. -Patient should allow tablet to dissolve on tongue. Or ondansetron (PF) (ZOFRAN) injection 4 mgJump to med 4 mg, intravenous, Every 8 hours PRN, vomiting, nausea, Starting on Wed06/19/25 at 1926, -ONLY give IV if patient is unable to take orally. -If inadequate response within 30 minutes, proceed to next-line agent or contact provider if no further options ordered. documented in this encounter Orders Medications Ordered That [place] ht Not Have Been Administered Count Last Ordered Date First Ordered Date acetaminophen (TYLENOL) tablet 650 mg 1 HYDROmorphone (DILAUDID) injection 0.5 mg 1 06/23/2025 lactated Ringer's infusion 2 06/23/2025 0 06/20/2025 morphine 2 mg/mL injection 2 mg 1 ondansetron (PF) (ZOFRAN) injection 4 mg 2 06/23/2025 06/19/2025 ondansetron ODT (ZOFRAN-ODT) disintegrating tablet 4 mg 2 06/23/2025 06/19/2025 oxyCODONE (ROXICODONE) immed iate release tablet 5 mg 3 06/23/2025 06/20/2025 glucagon HCL injection 1 mg 2 06/21/2025 06/19/2025 fentaNYL (PF) (SUBLIMAZE) injection 50 mcg 1 06/20/2025 vancomycin (VANCOCIN) vial for injection 1 06/20/2025 bisacodyL (DULCOLAX) EC tablet 10 mg 1 06/04 dextrose (D50W) 50% injection 12.5 g 1 06/04 dextrose (D50W) 50% injection 25 g 1 2024 dextrose 15 gram/60 mL oral solution 15 g 1 06/19/2025 dextrose 15 gram/60 mL oral solution 30 g 1 06/19/2025 heparin (UFH) injection 5,000 Units 1 06/19 naloxone (NARCAN) injection 0.04 mg 1 06/19 vancomycin (VANCOCIN) 1,000 mg in sodium chloride 0.9 % 250 mL IVPB 1 06/19/2025 Consult Count Last Ordered Date First Orde red Date WOUND CARE INPATIENT FOLLOW-UP 1 06/20/2025 IP CONSULT TO NUTRITION SERVICES 1 06/19/20 IP CONSULT TO VASCULAR SURGERY 1 06/19/2025 Respiratory Care Count Last Ordered Date First Ordered Date OXYGEN THERAPY, ADULT 2 06/23/20252024 Admission Count Last Ordered Date First Orde red Date ADMIT TO INPATIENT 1 06/19/2025 Discharge Count Last Ordered Date First Orde red Date DISCHARGE PATIENT 1 06/24/2025 Case Request Count Last Ordered Date First Orde red Date CASE REQUEST INVASIVE VASCULAR 1 06/19/2025 documented in this encounter Care Teams Opener Verifier [employer] Relationship Specialty Start Date End Date Diana Corona PA [address] [place] [address] PCP - General Physician Industrial Psychology Teacher 04/10/25 documented as of this encounter
--- OUTSIDE RECORDS SUMMARY | 2025-06-23 08:00 | XMS_ITS | Encounter Summary ---
[facility] Address [address] [place] [address] Care Team Providers Care Heating Worker Name Role Phone Diana Corona Primary Care Provider [phone] Reason for Visit * Reason Comments Wound Infection * Auth/Cert (Routine) Specialty Diagnoses / Procedures Referred By Contac t Referred To Contact Diagnoses Non-healing wound of amputation stump ([facility] V24, [facility] V28) Procedures . Kerry Ji MD [address] [place] [id number] Phone: tel: fax: [facility] [address] [place] [phone] Phone: tel: Referral ID Status Reason Start Date Expiration Date Visits Re quested Visits Authorized [id number] 1 1 Encounter Details Date Type Department Care Team (Late st Contact Info) Description 06/23/2025 8:00 AM EDT - 06/23/2025 9:15 AM EDT Surgery [facility] OR [address] [place] [address] Ahmet Banks MD [address] [place] [phone] DEBRIDEMENT BK AMP APPLICATION OF WOUND VAC Surgery Details Date/Time Status Location OR Service Patient Class Case Class Case Type Trauma Case? 06/23/2025 8:00 AM Posted [facility] OR OR Vascular Inpatient Panel 1 Procedure LRB Anes Op Region Wound Class Comments DEBRIDEMENT BK AMP APPLICATION OF WOUND VAC Right general Leg Lower Class III/ Conta minated Surgeon Surgeon Role Service Panel Ahmet Banks MD Primary Vascular 1 documented in this encounter Social History Tobacco Use Types Packs/Day Years [...] Sign Reading Time Taken Comments Blood Pressure 164/80 06/23/2025 7:24 AM EDT Pulse 70 06/23/2025 7:24 AM EDT Temperature 36.9 C (98.4 F) 06/23/2025 7:24 AM EDT Respiratory Rate 16 06/23/2025 7:24 AM EDT Oxygen Saturation 100% 06/23/2025 7:24 AM EDT Inhaled Oxygen Concentration - - [...] of Assessment Author No 05/23/2025 5:29 PM Mckeon RN documented as of this encounter Mental Status * Because of a physical, mental, or emotional condition, do you have serious difficulty concentrating, remembering, or making decisions? (5 years old or older) Answer Entry Date Author No 05/23/2025 5:29 PM Mckeon RN documented in this encounter Discharge Summaries * Kerry Ji MD - 06/24/2025 10:51 AM EDT Images from the original note were not included. MULDROW DISCHARGE SUMMARY Patient Information Mark Anthony Omalley [...] Follow Ups: [facility] [place] [address] [facility] , [address] [facility] [address] [facility] [place] [address] [facility] , [address] [facility] [address] Test Results Pending At Discharge: [...] Pen Needle 32 gauge x 5/32 needle Generic drug: pen needle, diabetic USE DIRECTED TO INJECT INSULIN cyanocobalamin 500 mcg tablet Commonly known as: VITAMIN B-12 Take by mouth. 1000mg daily fenofibrate 145 mg tablet Commonly known as: TRICOR Take 1 tablet (145 mg total) by mouth 1 (one) time each day. flash glucose sensor kit USE DIRECTED EVERY 14 DAYS FreeStyle Vivek 2 [place] [facility] Generic drug: flash glucose scanning reader 1 [...] Gen Pen Needle 32 gauge x /32 needle USE DIRECTED TO INJECT INSULIN 02/27/2024 cyanocobalamin (VITAMIN B-12) 500 mcg tablet Take by mouth. 1000mg daily DULoxetine (CYMBALTA) [address] capsule Take 1 capsule (60 mg total) by mouth 1 (one) time each day. 04/24/2025 fenofibrate (TRICOR) 145 mg tablet Take 1 tablet (145 mg total) by mouth 1 (one) time each day. flash glucose scanning reader (Ecohaus Vivek 2 [place]) misc 1 Product by Does not apply [...] by mouth at bedtime. 60 each 11 02/09/2025 6 documented as of this encounter [...] Departure Means Destination Comment s [facility] documented in this encounter Progress [...] VNA services and wound vac supplied by [employer] [facility] notified that pt will be discharged home today. NESSA scheduled for 06/25. Pt spouse to provide transportation. * Kerry Ji MD - 06/23/2025 1:42 PM EDT Images from the original note were not included. SANDIE PROGRESS NOTE Date: 06/23/2025 Author: Kerry iJ MD Patient ID: Mark Anthony Omalley is a 84 y.o. male : 1940 MR#: [id number] SUBJECTIVE CC: Follow-up right BKA wound Seen [...] a 84 y.o. male : 1940 MR#: [id number] SUBJECTIVE CC: pain No new complaints. Had [...] Principal Problem: Non-healing wound of amputation stump ([facility] V24, [facility] V28) Current Facility-Administered Medications: aspirin chewable tablet [...] oral, Nightly, OSWALDO Vizcarra, 100 mg at 06/21/25 2020 glucagon HCL injection 1 mg, 1 mg, [...] PRN, Kerry Ji MD, 5 mg at 06/21/25 2019 pantoprazole (PROTONIX) EC tablet 40 mg, 40 [...] hours: Temp: 36.5 ??C (97.7 ??F) (06/22 07) Heart Rate: 69 (06/22 802) Resp: 17 (06/22 502) BP: 165/84 (06/22 802) Intake/Output last 3 shifts: No intake/output data [...] a 84 y.o. male : 1940 MR#: [id number] SUBJECTIVE CC: pain Reports having pain in [...] Principal Problem: Non-healing wound of amputation stump ([facility] V24, [facility] V28) Current Facility-Administered Medications: aspirin chewable tablet 81 mg, 81 mg, oral, Daily, OSWALDO Vizcarra, 81 mg at 06/21/25810 atenoloL (TENORMIN) tablet 50 mg, 50 mg, [...] q12h CLARY, OSWALDO Vizcarra, 5,000Units at 06/21/25 0811 HYDROmorphone (DILAUDID) injection 1 mg, 1 mg, intravenous, q4h PRN, OSWALDO Vizcarra, 1 mg at 06/21/25 0800 insulin glargine (LANTUS) injection 20 Units, 20 Units, subcutaneous, Nightly, OSWALDO Vizcarra, 20 Units at 06/20/25 2122 insulin lispro injection 1-6 Units, 1-6 Units, subcutaneous, TID AC, OSWALDO Vizcarra lactated Ringer's infusion, 100 mL/hr, intravenous, Continuous, OSWALDO Vizcarra, Last Rate: 100 mL/hr at 06/20/25 1730, 100 mL/hr at 06/20/25 1730 LORazepam (ATIVAN) tablet 0.5 mg, 0.5 mg, oral, BID, OSWALDO Vizcarra, 0.5 mg at 06/21/25 0811 naloxone (NARCAN) injection 0.04 mg, 0.04 mg, [...] AC, OSWALDO Vizcarra, 40 mg at 06/21/25 06 piperacillin-tazobactam (ZOSYN) 2.25 g in sodium chloride 0.9 % 100 mL IVPB, 2.25 g, intravenous, q6h, OSWALDO Vizcarra, Stopped at 06/21/25 0952 vancomycin (VANCOCIN) 1,000 mg in sodium chloride 0.9 % 250 mL IVPB, 1,000 mg, intravenous, q24h, OSWALDO Vizcarra, Stopped at 06/20/25 8934 Objective Vital signs in last 24 hours: [...] medical service with plan for OR 06/20. 18: POD #1 right BKA wound debridement, washout [...] a 84 y.o. male : 1940 MR#: [id number] SUBJECTIVE CC: pain at bedside. Patient has [...] or worsening End of Shift Summary: * Lois Kelly - 06/20/2025 10:39 AM EDT SPIRITUAL CARE Date/Time:06/20/25 at 10:39 AM EDT Type of Visit: Initial Referral and Visit and Referral Reason for Visit: Spiritual/Emotional Support and Spiritual Assessment Time Spent: 25 Minutes Location: [address] [place] [address] Sacramental Encounters: Sacrament of Sick-Anointing: Anointed Spiritual [...] of over sixty-five years of marriage. Nettie episcopalian is Congregational, administered anointing of the sick. Prayed for [...] usually? Transcendence Do you have a particular episcopalian, nettie, or spirituality? Is your episcopalian/spirituality/nettie challenged by what is happening to you [...] Discharge Needs Discipline following for SNF placement Customer Care Specialist Informed Choice Informed Choice Given? Yes ICC [...] OR today and he ho pes to dc home by the end of the week. Referrals placed via epic * Brisa Dobbs RN - 06/20/2025 9:10 AM EDT Spiritual care paged and was asked to speak with patient. * Carrie Diaz, BudD - 06/19/2025 10:34 PM EDT Initial Pharmacy [...] infectious concerns): [] Yes / [x] No Transaction Coordinator: [] Yes / [x] No If YES, Cardiac Rhythm: [] NSR, [] SB, [] ST, [] A-FIB, [] A-Flutter, [] Pacemaker, [] 1st Degree HB, [] 2nd Degree HB, [] 3rd Degree HB Reason for Transaction Coordinator: VS: Visit Vitals BP (!) 153/56 Pulse [...] 100 ml/hr Submitted by and Phone Extension: [phone] * Mary Lombardo - 06/19/2025 5:53 PM EDT Images from the original note were not included. 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 Patient: Mark Anthony Omalley Admission Date/Time: 06/19/2025 [...] today he received a call from Dr. Banks'soffice to go to the ED for worsening wound. Arrival to ED, blood pressure 148/69, heart rate 70, respirate 18, sat 96% room air, afebrile. Labs reviewed no leukocytosis 7.5, anemia H&H 11/34.7, platelets 232, electrolytes WNL, elevated BUN/creatinine 31/2.01. [...] kidney disease) stage 3, GFR 30-59 ml/min ([facility] V24, [facility] V28) 11/06/2020 DX:CKD (chronic kidney disease) stage 3, GFR 30-59 ml/min ([facility]) ??? Diabetic neuritis ([facility] V24, [facility] V28) 08/09/2020 DX:Diabetic neuritis ([facility]) ??? Gastroesophageal reflux disease without esophagitis 08/09/2020 DX:Gastroesophageal reflux disease without esophagitis ??? History of diverticulitis 08/09/2020 DX:History of diverticulitis ??? HTN (hypertension) 08/09/2020 DX:HTN (hypertension) ??? Hyperlipidemia 08/09/2020 DX:Hyperlipidemia ??? 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 V24, CMS/HCC V28) 11/06/2020 DX:Malignant neoplasm of right vocal cord (HCC) ??? Pacemaker 08/09/2020 DX:Pacemaker ??? Peripheral vascular disease (CMS/HCC V24) 08/09/2020 DX:Peripheral vascular disease (HCC) ??? 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 ST elevation myocardial infarction (STEMI) (CMS/HCC V24, CMS/HCC V28) 08/09/2020 DX:ST elevation myocardial infarction (STEMI) (HCC) ??? Throat cancer (CMS/HCC V24, CMS/HCC V28) 08/09/2020 [...] Sahu ??? CARPAL TUNNEL RELEASE Right PROCEDURE: MS NEUROPLASTY &/TRANSPOS MEDIAN NRV CARPAL TUNNE; COMMENT: dr. cazares ??? COLONOSCOPY 2011 PROCEDURE: HISTORICAL COLONOSCOPY ??? CORONARY ARTERY BYPASS GRAFT 1996 PROCEDURE: HISTORICAL CABG; COMMENT: x4 ??? EYE SURGERY PROCEDURE: HISTORICAL EYE SURGERY; COMMENT: Pinguecula ??? HERNIA REPAIR Bilateral PROCEDURE: REPAIR INGUINAL HERNIA ??? KNEE ARTHROSCOPY Right 2009 PROCEDURE: MS ARTHROSCOPY KNEE DIAGNOSTIC W/WO SYNOVIAL BX SPX; COMMENT: Meniscus ??? NECK SURGERY PROCEDURE: HISTORICAL NECK SURGERY ??? OTHER SURGICAL HISTORY PROCEDURE: MS DUP-SCAN LXTR ART/ARTL BPGS UNI/LMTD STUDY; COMMENT: Angioplasty and stenting of the left leg ??? OTHER SURGICAL HISTORY PROCEDURE: MS BIOPSY OROPHARYNX; COMMENT: Throat cancer had radiation x6 weeks [facility] ??? OTHER SURGICAL HISTORY PROCEDURE: ---- HEMORRHOIDS ---- ??? OTHER SURGICAL HISTORY 06/15/2023 PROCEDURE: MS SLCTV CATHJ 3RD+ ORD SLCTV ABDL PEL/LXTR BRNCH ??? OTHER SURGICAL HISTORY 06/15/2023 PROCEDURE: MS SLCTV CATHJ EA 2ND+ ORD ABDL PEL/LXTR ART BRNCH ??? OTHER SURGICAL HISTORY 06/15/2023 PROCEDURE: X-RAY EXAM OF ARM/LEG ARTERY ??? OTHER SURGICAL HISTORY 06/15/2023 PROCEDURE: ULTRASOUND GUIDANCE FOR VASCULAR AC ??? OTHER SURGICAL HISTORY 06/01/2024 PROCEDURE: MS EVASC RPR DPLMNT [id number] NDGFT ??? OTHER SURGICAL HISTORY 06/01/2024 PROCEDURE: MS OPN ILIAC ART EXPOS PROSTH/ILIAC OCCLS EVASC UNI ??? OTHER SURGICAL HISTORY 06/01/2024 PROCEDURE: MS PERQ ACCESS & CLOSURE FEM ART FOR DELIVERY NDGFT ??? OTHER SURGICAL HISTORY 06/01/2024 PROCEDURE: MS REVASC INTRAVASC LITHOTRIPSY ??? OTHER SURGICAL HISTORY Left 06/28/2024 PROCEDURE: MS BYP OTH/THN VEIN FEM-ANT TIBL PST TIBL/PRONEAL [...] x needle USE DIRECTED TO INJECT INSULIN ??? collagenase (SantyL) 250 unit/gram ointment Topical, Daily, Apply nickel thickness layer to right knee wound daily ??? cyanocobalamin (VITAMIN B-12) 500 mcg tablet Take by mouth. 1000mg daily ??? DULoxetine (CYMBALTA) 60 mg, Daily ??? fenofibrate (TRICOR) 145 mg, Daily ??? flash glucose scanning reader (Ecoh[employer] Vivek 2 [place]) misc 1 Product by Does not apply [...] Ultra-Fine Micro Pen Needle) 32 gauge x 10/07 needle DIRECTED TWICE DAILY ??? polyethylene glycol [...] Status: DNR/DNI-confirmed with the patient HCP:, Padmini; [phone] Ji Cosigned by Kerry Ji MD at 06/20/2025 4:43 PM EDT documented in this encounter Procedure Notes * Ahmet Banks MD - 06/23/2025 8:47 AM EDT DEBRIDEMENT BK AMP APPLICATION OF WOUND VAC (R) OPERATIVE NOTE Date: 06/23/2025 Location: [facility] OR Name: Mark Anthony Omalley : 1940, Diagnosis PREOP: Right BKA dehiscence POSTOP: Right BKA dehiscence Procedures RIGHT BKA WOUND DEBRIDEMENT, WASHOUT, VAC PLACEMENT Indications: Mark Anthony Omalley is an 84 y.o. 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 male who is having surgery for Surgeon(s) & Corporate Law Specialist(s) * Ahmet Banks MD - Primary Anesthesia: [...] in this encounter Consult Notes * Clarice Donato RD - 06/21/2025 1:48 PM EDTAssociated Order(s): [...] Dietary nutrition supplements Three times daily (TID); [facility]; Diabetic Supplement Continuous Comments: Waldo or vanilla Question Answer Comment Frequency Three times daily (TID) Location [facility] Supplements Diabetic Supplement 06/21/25 1040 06/20/25 1501 Adult diet [facility]; General, Diabetic; Regular; 75 gm carb/Meal Diet effective now Question Answer Comment Location [facility] Diet Type (req) General Diet Type [...] kidney disease) stage 3, GFR 30-59 ml/min ([facility] V24, [facility] V28) 11/06/2020 DX:CKD (chronic kidney disease) stage 3, GFR 30-59 ml/min ([facility]) Diabetic neuritis ([facility] V24, [facility] V28) 08/09/2020 DX:Diabetic neuritis (HCC) Gastroesophageal reflux disease without esophagitis 08/09/2020 DX:Gastroesophageal reflux disease without esophagitis History of diverticulitis 08/09/2020 DX:History of diverticulitis HTN (hypertension) 08/09/2020 DX:HTN (hypertension) Hyperlipidemia 08/09/2020 DX:Hyperlipidemia Malignant neoplasm of right vocal cord ([facility] V24, [facility] V28) 11/06/2020 DX:Malignant neoplasm of right vocal cord (HCC) Pacemaker 08/09/2020 DX:Pacemaker Peripheral vascular disease ([facility] V24) 08/09/2020 DX:Peripheral vascular disease (HCC) 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 DX: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 ST elevation myocardial infarction (STEMI) ([facility] V24, [facility] V28) 08/09/2020 DX:ST elevation myocardial infarction (STEMI) (HCC) Throat cancer ([facility] V24, [facility] V28) 08/09/2020 DX:Throat cancer (HCC); COMMENT: 2020: received RT Type 2 diabetes mellitus with neurological manifestation ([facility] V24, [facility] V28) 08/09/2020 DX: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 Sahu CARPAL TUNNEL RELEASE Right PROCEDURE: MS NEUROPLASTY &/TRANSPOS MEDIAN NRV CARPAL TUNNE; COMMENT: dr. cazares COLONOSCOPY 2011 PROCEDURE: HISTORICAL COLONOSCOPY CORONARY ARTERY BYPASS GRAFT 1996 PROCEDURE: HISTORICAL CABG; COMMENT: x4 EYE SURGERY PROCEDURE: HISTORICAL EYE SURGERY; COMMENT: Pinguecula HERNIA REPAIR Bilateral PROCEDURE: REPAIR INGUINAL HERNIA KNEE ARTHROSCOPY Right 2009 PROCEDURE: MS ARTHROSCOPY KNEE DIAGNOSTIC W/WO SYNOVIAL BX SPX; COMMENT: Meniscus NECK SURGERY PROCEDURE: HISTORICAL NECK SURGERY OTHER SURGICAL HISTORY PROCEDURE: MS DUP-SCAN LXTR ART/ARTL BPGS UNI/LMTD STUDY; COMMENT: Angioplasty and stenting of the left leg OTHER SURGICAL HISTORY PROCEDURE: MS BIOPSY OROPHARYNX; COMMENT: Throat cancer had radiation x6 weeks [facility] OTHER SURGICAL HISTORY PROCEDURE: ---- HEMORRHOIDS ---- OTHER SURGICAL HISTORY 06/15/2023 PROCEDURE: MS SLCTV CATHJ 3RD+ ORD SLCTV ABDL PEL/LXTR BRNCH OTHER SURGICAL HISTORY 06/15/2023 PROCEDURE: MS SLCTV CATHJ EA 2ND+ ORD ABDL PEL/LXTR ART BRNCH OTHER SURGICAL HISTORY 06/15/2023 PROCEDURE: X-RAY EXAM OF ARM/LEG ARTERY OTHER SURGICAL HISTORY 06/15/2023 PROCEDURE: ULTRASOUND GUIDANCE FOR VASCULAR AC OTHER SURGICAL HISTORY 06/01/2024 PROCEDURE: MS EVASC RPR DPLMNT [id number] NDGFT OTHER SURGICAL HISTORY 06/01/2024 PROCEDURE: MS OPN ILIAC ART EXPOS PROSTH/ILIAC OCCLS EVASC UNI OTHER SURGICAL HISTORY 06/01/2024 PROCEDURE: MS PERQ ACCESS & CLOSURE FEM ART FOR DELIVERY NDGFT OTHER SURGICAL HISTORY 06/01/2024 PROCEDURE: MS REVASC INTRAVASC LITHOTRIPSY OTHER SURGICAL HISTORY Left 06/28/2024 PROCEDURE: MS BYP OTH/THN VEIN FEM-ANT TIBL PST TIBL/PRONEAL PACEMAKER IMPLANT PROCEDURE: HISTORICAL PACEMAKER TONSILLECTOMY PROCEDURE: HISTORICAL TONSILLECTOMY TURP / TRANSURETHRAL INCISION / DRAINAGE PROSTATE 2004 PROCEDURE: HISTORICAL TURP admitted 06/19/2025 with Non-healing wound of amputation stump ([facility] V24, [facility] V28). Food/Nutrition History: Limited history, patient experiencing [...] PATIENT: Mark Anthony Omalley ENCOUNTER: 06/19/2025 EMRN: [id number] : 1940 PCP: OSWALDO Roach CHIEF COMPLAINT: Wound Infection HPI: Patient is a 84 y.o. male with history of CAD s/p CABG, CKD, DM, anxiety, hypertension, hyperlipidemia, s/p pacemaker placement, prior RLE DVT and extensive vascular history well known to our servicewho presented to [facility], 06/19, as recommended by Dr. [...] kidney disease) stage 3, GFR 30-59 ml/min ([facility] V24, [facility] V28) 11/06/2020 DX:CKD (chronic kidney disease) stage 3, GFR 30-59 ml/min (HCC) Diabetic neuritis ([facility] V24, [facility] V28) 08/09/2020 DX:Diabetic neuritis (HCC) Gastroesophageal reflux disease without esophagitis 08/09/2020 DX:Gastroesophageal reflux disease without esophagitis History of diverticulitis 08/09/2020 DX:History of diverticulitis HTN (hypertension) 08/09/2020 DX:HTN (hypertension) Hyperlipidemia 08/09/2020 DX:Hyperlipidemia Malignant neoplasm of right vocal cord ([facility] V24, [facility] V28) 11/06/2020 DX:Malignant neoplasm of right vocal cord (HCC) Pacemaker 08/09/2020 DX:Pacemaker Peripheral vascular disease ([facility] V24) 08/09/2020 DX:Peripheral vascular disease (HCC) 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 DX: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 ST elevation myocardial infarction (STEMI) ([facility] V24, [facility] V28) 08/09/2020 DX:ST elevation myocardial infarction (STEMI) ([facility]) Throat cancer ([facility] V24, [facility] V28) 08/09/2020 DX:Throat cancer (HCC); COMMENT: 2020: received RT Type 2 diabetes mellitus with neurological manifestation ([facility] V24, [facility] V28) 08/09/2020 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 Sahu CARPAL TUNNEL RELEASE Right PROCEDURE: MS NEUROPLASTY &/TRANSPOS MEDIAN NRV CARPAL TUNNE; COMMENT: dr. cazares COLONOSCOPY 2011 PROCEDURE: HISTORICAL COLONOSCOPY CORONARY ARTERY BYPASS GRAFT 1996 PROCEDURE: HISTORICAL CABG; COMMENT: x4 EYE SURGERY PROCEDURE: HISTORICAL EYE SURGERY; COMMENT: Pinguecula HERNIA REPAIR Bilateral PROCEDURE: REPAIR INGUINAL HERNIA KNEE ARTHROSCOPY Right 2009 PROCEDURE: MS ARTHROSCOPY KNEE DIAGNOSTIC W/WO SYNOVIAL BX SPX; COMMENT: Meniscus NECK SURGERY PROCEDURE: HISTORICAL NECK SURGERY OTHER SURGICAL HISTORY PROCEDURE: MS DUP-SCAN LXTR ART/ARTL BPGS UNI/LMTD STUDY; COMMENT: Angioplasty and stenting of the left leg OTHER SURGICAL HISTORY PROCEDURE: MS BIOPSY OROPHARYNX; COMMENT: Throat cancer had radiation x6 weeks [facility] OTHER SURGICAL HISTORY PROCEDURE: ---- HEMORRHOIDS ---- OTHER SURGICAL HISTORY 06/15/2023 PROCEDURE: MS SLCTV CATHJ 3RD+ ORD SLCTV ABDL PEL/LXTR BRNCH OTHER SURGICAL HISTORY 06/15/2023 PROCEDURE: MS SLCTV CATHJ EA 2ND+ ORD ABDL PEL/LXTR ART BRNCH OTHER SURGICAL HISTORY 06/15/2023 PROCEDURE: X-RAY EXAM OF ARM/LEG ARTERY OTHER SURGICAL HISTORY 06/15/2023 PROCEDURE: ULTRASOUND GUIDANCE FOR VASCULAR AC OTHER SURGICAL HISTORY 06/01/2024 PROCEDURE: MS EVASC RPR DPLMNT [id number] NDGFT OTHER SURGICAL HISTORY 06/01/2024 PROCEDURE: MS OPN ILIAC ART EXPOS PROSTH/ILIAC OCCLS EVASC UNI OTHER SURGICAL HISTORY 06/01/2024 PROCEDURE: MS PERQ ACCESS & CLOSURE FEM ART FOR DELIVERY NDGFT OTHER SURGICAL HISTORY 06/01/2024 PROCEDURE: MS REVASC INTRAVASC LITHOTRIPSY OTHER SURGICAL HISTORY Left 06/28/2024 PROCEDURE: MS BYP OTH/THN VEIN FEM-ANT TIBL PST TIBL/PRONEAL [...] time each day. flash glucose scanning reader (Ecoh[employer] Vivek 2 [place]) misc 1 Product by Does not apply [...] ASSESSMENT: 1. Non-healing wound of amputation stump ([facility] V24, [facility] V28) 84 y.o. male well known to [...] AM EDT Office Visit Vascular Surgery - [place] [address] [place] [address] Andie Chua PA [address] [place] [address] 06/06/2026 1:30 PM EDT Ancillary Procedure [facility] [address] [place] [address] Scheduled Referrals Name Type Priority Associated Diagnoses Order Schedule Ambulatory referral to Home Health Outpatient Referral Routine Amputation stump infection (CMS/[facility] V24, CMS/[facility]ER[facility] V28) 1 Occurrences starting 06/24/2025 until 06/24/2026 [...] THERAPY, ADULT Routine 06/20/2025 2:58 PM EDT VANCOMYCIN, RANDOM Routine 06/20/2025 9: 50 AM [...] specimen / Unknown 06/24/2025 11:52 AM EDT Result Devonte Ji MD POINT OF CARE TEST ENTER/ELSA T ORDERABLES Final Result * POC Glucose manually resulted (06/24/2025 7:22 AM EDT) Blood Capillary blood specimen / Unknown 06/24/2025 7:22 AM EDT Result Devonte Ji MD POINT OF CARE TEST ENTER/ELSA T ORDERABLES Final Result * POC Glucose manually resulted (06/23/2025 4:24 PM EDT) Glucose POC 138 70 - 110 mg/dL Blood Capillary blood specimen / Unknown 06/23/2025 4:24 PM EDT Result Devonte Ji MD POINT OF CARE TEST ENTER/ELSA T ORDERABLES Final Result * (ABNORMAL) POC Glucose manually resulted (06/23/2025 11:20 AM EDT) Glucose POC 98(A) 70 - 110 mg/dL Blood Capillary blood specimen / Unknown 06/23/2025 11:20 AM EDT Result Devonte Ji MD POINT OF CARE TEST ENTER/ELSA T ORDERABLES Edited Result - Final * (ABNORMAL) POCT Glucose, blood (06/23/2025 9:33 AM EDT) Glucose POCT 111(H) 70 - 100 mg/dL 06/23/2025 9:34 AM EDT [facility] Blood Capillary blood specimen / Unknown 06/23/2025 9:33 AM EDT 06/23/2025 9:35 AM EDT us Kerry Ji MD LAB POINT OF CARE TE ST DOCKED DEVICE UNSOLICITED RESULTS Final Result [facility] [address] [place] [address], [place] [phone] * Lavender tube (06/23/2025 7:25 AM EDT) Extra Tube Hold for add-ons. 06/23/2025 9:01 AM EDT [facility] Comment:Auto resulted. Blood Venous blood specimen / Unknown 06/23/2025 7:25 AM EDT 06/23/2025 7:32 AM EDT us Kerry Ji MD LAB BLOOD ORDERABLES Final R esult Performing Organization Address City/[facility]/ZIP Co de Phone Number [facility] [address] [place] [address], [place] [phone] * SST tube (06/23/2025 7:25 AM EDT) Extra Tube Hold for add-ons. 06/23/2025 9:01 AM EDT [facility] Comment:Auto resulted. Blood Venous blood specimen / Unknown 06/23/2025 7:25 AM EDT 06/23/2025 7:32 AM EDT us Kerry Ji MD LAB BLOOD ORDERABLES Final R esult [facility] [address] [place] [address], * Troponin I high sensitivity (06/23/2025 7:25 AM EDT) [facility] High Sensitivity Troponin I 33 <=79 ng/L LAB CHEMISTRY METHOD 06/23/2025 8:18 AM EDT [facility] Blood Venous blood specimen / Unknown Venipuncture / Unknown 06/23/2025 7:25 AM EDT 06/23/2025 7:31 AM EDT Narrative [facility] - 06/23/2025 8:18 AM EDT High levels of biotin in samples may falsely decrease hsTroponin values. Use caution when interpreting hsTroponin results in patients taking biotin who exhibit renal impairment (eGFR <60) or in patients taking more than 20 mg/day of biotin. Brisa CHACON LAB BLOOD ORDERABLES Final Re sult [facility] [address] [place] [address], * (ABNORMAL) CBC auto differential (06/23/2025 6:32 AM EDT) [facility] WBC 8.4 4.8 - 10.8 K/mcL LAB HEMETOLOGY METHOD 06/23/2025 7:02 AM EDT [facility] RBC 3.20(L) 4.50 - 5.50 M/mcL LAB HEMETOLOGY METHOD 06/23/2025 7:02 AM EDT [facility] Hemoglobin 10.2(L) 13.5 - 17.5 g/dL LAB HEMETOLOGY METHOD 06/23/2025 7:02 AM EDT [facility] Hematocrit 31.2(L) 42.0 - 54.0 % LAB HEMETOLOGY METHOD 06/23/2025 7:02 AM EDT [facility] MCV 99.0(H) 79.0 - 98.0 FL LAB HEMETOLOGY METHOD 06/23/2025 7:02 AM [facility] MCH 32.4(H) 27.0 - 32.0 pcg LAB HEMETOLOGY METHOD 06/23/2025 7:02 AM [facility] MCHC 32.7 32.0 - 37.0 g/dL LAB HEMETOLOGY METHOD 06/23/2025 7:02 AM [facility] RDW 16.9(H) 11.0 - 15.0 % LAB HEMETOLOGY METHOD 06/23/2025 7:02 AM [facility] Platelets 209 130 - 400 K/mcL LAB HEMETOLOGY METHOD 06/23/2025 7:02 AM [facility] MPV 9.5 7.0 - 11.0 FL LAB HEMETOLOGY METHOD 06/23/2025 7:02 AM [facility] NRBC 0.0 <1.0 % LAB HEMETOLOGY METHOD 06/23/2025 7:02 AM [facility] NRBC Absolute 0.00 <0.10 K/mcL LAB HEMETOLOGY METHOD 06/23/2025 7:02 AM [facility] Neutrophils Relative 60.8 % LAB HEMETOLOGY METHOD 06/23/2025 7:02 AM [facility] Lymphocytes Relative 19.9 % LAB HEMETOLOGY METHOD 06/23/2025 7:02 AM [facility] Monocytes Relative 13.4 % LAB HEMETOLOGY METHOD 06/23/2025 7:02 AM [facility] Eosinophils Relative 5.2 % LAB HEMETOLOGY METHOD 06/23/2025 7:02 AM [facility] Basophils Relative 0.5 % LAB HEMETOLOGY METHOD 06/23/2025 7:02 AM EDT [facility] Immature Granulocytes Relative 0.2 % LAB HEMETOLOGY METHOD 06/23/2025 7:02 AM EDT [facility] Neutrophils Absolute 5.12 1.50 - 7.00 K/mcL LAB HEMETOLOGY METHOD 06/23/2025 7:02 AM EDT [facility] Lymphocytes Absolute 1.68 1.00 - 5.00 K/mcL LAB HEMETOLOGY METHOD 06/23/2025 7:02 AM EDT [facility] Monocytes Absolute 1.13(H) 0.20 - 1.00 K/mcL LAB HEMETOLOGY METHOD 06/23/2025 7:02 AM EDT [facility] Eosinophils Absolute 0.44 0.00 - 0.50 K/mcL LAB HEMETOLOGY METHOD 06/23/2025 7:02 AM EDT [facility] Basophils Absolute 0.04 0.00 - 0.20 K/mcL LAB HEMETOLOGY METHOD 06/23[facility]25 [facility] Immature Granulocytes Absolute 0.02 0.00 - 0.03 K/mcL LAB HEMETOLOGY METHOD 06/23/2025 7:02 AM [facility] Blood Venous blood specimen / Unknown Venipuncture / Unknown 06/23/2025 6:32 AM EDT 06/23/2025 6:42 AM EDT us [employer] DOLAN LAB BLOOD ORDERABLES Final R esult [facility] [address] [place] [address], * Troponin I high sensitivity (06/23/2025 6:31 AM EDT) High Sensitivity Troponin I 33 <=79 ng/L LAB CHEMISTRY METHOD 06/23/2025 7:28 AM EDT [facility] Blood Venous blood specimen / Unknown Venipuncture / Unknown 06/23/2025 6:31 AM EDT 06/23/2025 6:42 AM EDT Narrative [facility] - 06/23/2025 7:28 AM EDT High levels of biotin in samples may falsely decrease hsTroponin values. Use caution when interpreting hsTroponin results in patients taking biotin who exhibit renal impairment (eGFR <60) or in patients taking more than 20 mg/day of biotin. Brisa CHACON LAB BLOOD ORDERABLES Final Re sult [facility] [address] [place] [address], [place] [phone] * Magnesium (06/23/2025 6:31 AM EDT) Magnesium 2.0 1.9 - 2.6 mg/dL LAB CHEMISTRY METHOD 06/23/2025 7:14 AM EDT [facility] Blood Venous blood specimen / Unknown Venipuncture / Unknown 06/23/2025 6:31 AM EDT 06/23/2025 6:42 AM EDT us Brisa CHACON LAB BLOOD ORDERABLES Final Re sult [facility] [address] [place] [address], [place] [phone] * (ABNORMAL) Basic metabolic panel (06/23/2025 6:31 AM EDT) Sodium 140 133 - 145 mmol/L LAB CHEMISTRY METHOD 06/23/2025 7:14 AM EDT [facility] Potassium 3.6 3.5 - 5.5 mmol/L LAB CHEMISTRY METHOD 06/23/2025 7:14 AM EDT [facility] Chloride 108 96 - 110 mmol/L LAB CHEMISTRY METHOD 06/23/2025 7:14 AM [facility] CO2 27 21 - 32 mmol/L LAB CHEMISTRY METHOD 06/23/2025 7:14 AM [facility] Anion Gap 5 3 - 11 LAB CHEMISTRY METHOD 06/23/2025 7:14 AM [facility] Glucose 104(H) 70 - 100 mg/dL LAB CHEMISTRY METHOD 06/23/2025 7:14 AM [facility] BUN 23 5 - 25 mg/dL LAB CHEMISTRY METHOD 06/23/2025 7:14 AM [facility] Creatinine 1.25 0.70 - 1.30 mg/dL LAB CHEMISTRY METHOD 06/23/2025 7:14 AM [facility] eGFR 56(L) >=60 mL/min/1. 73m2 LAB CHEMISTRY METHOD 06/23/2025 7:14 AM [facility] Comment:Calculation based on the Chronic Kidney Disease Epidemiology Collaboration (CKD-EPI) equation refit without adjustment for race. BUN/Creatinine Ratio 18.4 LAB CHEMISTRY METHOD 06/23/2025 7:14 AM [facility] Calcium 9.1 8.5 - 10.5 mg/dL LAB CHEMISTRY METHOD 06/23/2025 7:14 AM [facility] Blood Venous blood specimen / Unknown Venipuncture / Unknown 06/23/2025 6:31 AM EDT 06/23/2025 6:42 AM EDT us [employer] DOLAN LAB BLOOD ORDERABLES Final R esult [facility] [address] [place] [address], * ECG 12 lead (06/23/2025 5:08 AM EDT) Ventricular Rate ECG 70 BPM GEMUSE Atrial Rate 70 BPM GEMUSE P-R Interval 256 ms GEMUSE QRS Duration 116 ms GEMUSE Q-T Interval 432 ms GEMUSE QTc 466 ms GEMUSE T [place] -52 degrees GEMUSE ECG Interpretation AV dual-paced rhythm with prolonged AV conduction Abnormal ECG When compared with ECG of 21-MAY-2025 18:41, No significant change was found Confirmed by Brandon FARRELL JAMES ([id number]) on 06/23/2025 10:24:16 PM GEMUSE 06/23/2025 5:08 AM EDT 06/23/2025 10:24 PM EDT us Brisa CHACON ECG ORDERABLES Final Result Performing Organization Address City/[facility] Co de Phone Number GEMUSE * Vancomycin, trough Please draw after 1999 but prior to next dose @2100, thank you (06/21/2025 8:04 PM EDT) [facility] Vancomycin Trough 14.5 10.0 - 20.0 mcg/mL LAB CHEMISTRY METHOD 06/21/2025 9:04 PM EDT [facility] Blood Venous blood specimen / Unknown Venipuncture / Unknown 06/21/2025 8:04 PM EDT 06/21/2025 8:09 PM EDT us Andie CHACON LAB BLOOD ORDERABLES Final Res ult Performing Organization Address City/[facility]/ZIP Co de Phone Number [facility] [address] [place] [address], [place] [phone] * (ABNORMAL) CBC auto differential (06/21/2025 5:27 AM EDT) [facility] WBC 6.3 4.8 - 10.8 K/[facility] LAB HEMETOLOGY METHOD 06/21/2025 6:46 AM EDT [facility] RBC 3.10(L) 4.50 - 5.50 M/[facility] LAB HEMETOLOGY METHOD 06/21/2025 6:46 AM [facility] Hemoglobin 9.8(L) 13.5 - 17.5 g/dL LAB HEMETOLOGY METHOD 06/21/2025 6:46 AM [facility] Hematocrit 31.2(L) 42.0 - 54.0 % LAB HEMETOLOGY METHOD 06/21/2025 6:46 AM [facility] MCV 100.3(H) 79.0 - 98.0 FL LAB HEMETOLOGY METHOD 06/21/2025 6:46 AM [facility] MCH 31.5 27.0 - 32.0 pcg LAB HEMETOLOGY METHOD 06/21/2025 6:46 AM [facility] MCHC 31.4(L) 32.0 - 37.0 g/dL LAB HEMETOLOGY METHOD 06/21/2025 6:46 AM [facility] RDW 16.8(H) 11.0 - 15.0 % LAB HEMETOLOGY METHOD 06/21/2025 6:46 AM [facility] Platelets 203 130 - 400 K/mcL LAB HEMETOLOGY METHOD 06/21/2025 6:46 AM [facility] MPV 10.0 7.0 - 11.0 FL LAB HEMETOLOGY METHOD 06/21/2025 6:46 AM [facility] NRBC 0.0 <1.0 % LAB HEMETOLOGY METHOD 06/21/2025 6:46 AM [facility] NRBC Absolute 0.00 <0.10 K/mcL LAB HEMETOLOGY METHOD 06/21/2025 6:46 AM [facility] Neutrophils Relative 72.5 % LAB HEMETOLOGY METHOD 06/21/2025 6:46 AM [facility] Lymphocytes Relative 18.8 % LAB HEMETOLOGY METHOD 06/21/2025 6:46 AM EDT [facility] Monocytes Relative 8.1 % LAB HEMETOLOGY METHOD 06/21/2025 6:46 AM EDT [facility] Eosinophils Relative 0.0 % LAB HEMETOLOGY METHOD 06/21/2025 6:[facility] Basophils Relative 0.3 % LAB HEMETOLOGY METHOD 06/21/2025 6:46 AM EDT [facility] Immature Granulocytes Relative 0.3 % LAB HEMETOLOGY METHOD 06/21/2025 6:46 AM EDT [facility] Neutrophils Absolute 4.56 1.50 - 7.00 K/mcL LAB HEMETOLOGY METHOD 06/21/2025 6:46 AM [facility] Lymphocytes Absolute 1.18 1.00 - 5.00 K/mcL LAB HEMETOLOGY METHOD 06/21/2025 6:46 AM EDT [facility] Monocytes Absolute 0.51 0.20 - 1.00 K/mcL LAB HEMETOLOGY METHOD 06/21/2025 6:46 [facility] Eosinophils Absolute 0.00 0.00 - 0.50 K/mcL LAB HEMETOLOGY METHOD 06/21/2025 6:46 AM [facility] Basophils Absolute 0.02 0.00 - 0.20 K/mcL LAB HEMETOLOGY METHOD 06/21/2025 6:46 [facility] Immature Granulocytes Absolute 0.02 0.00 - 0.03 K/mcL LAB HEMETOLOGY METHOD 06/21/2025 6:46 AM [facility] Blood Venous blood specimen / Unknown Venipuncture / Unknown 06/21/2025 5:27 AM EDT 06/21/2025 6:20 AM EDT us Andie CHACON LAB BLOOD ORDERABLES Final Res ult [facility] [address] [place] [address], * (ABNORMAL) Basic metabolic panel (06/21/2025 5:27 AM EDT) Sodium 143 133 - 145 mmol/L LAB CHEMISTRY METHOD 06/21/2025 6:52 AM EDT [facility] Potassium 4.3 3.5 - 5.5 mmol/L LAB CHEMISTRY METHOD 06/21/2025 6:52 AM [facility] Chloride 109 96 - 110 mmol/L LAB CHEMISTRY METHOD 06/21/2025 6:52 AM [facility] CO2 25 21 - 32 mmol/L LAB CHEMISTRY METHOD 06/21/2025 6:52 AM [facility] Anion Gap 9 3 - 11 LAB CHEMISTRY METHOD 06/21/2025 6:52 AM [facility] Glucose 128(H) 70 - 100 mg/dL LAB CHEMISTRY METHOD 06/21/2025 6:52 AM [facility] BUN 28(H) 5 - 25 mg/dL LAB CHEMISTRY METHOD 06/21/2025 6:52 AM [facility] Creatinine 1.36(H) 0.70 - 1.30 mg/dL LAB CHEMISTRY METHOD 06/21/2025 6:52 AM [facility] eGFR 51(L) >=60 mL/min/1. 73m2 LAB CHEMISTRY METHOD 06/21/2025 6:52 AM [facility] Comment:Calculation based on the Chronic Kidney Disease Epidemiology Collaboration (CKD-EPI) equation refit without adjustment for race. BUN/Creatinine Ratio 20.6 LAB CHEMISTRY METHOD 06/21/2025 6:52 AM [facility] Calcium 8.9 8.5 - 10.5 mg/dL LAB CHEMISTRY METHOD 06/21/2025 6:52 AM [facility] Blood Venous blood specimen / Unknown Venipuncture / Unknown 06/21/2025 5:27 AM EDT 06/21/2025 6:20 AM EDT Andie CHACON LAB BLOOD ORDERABLES Final Res ult Performing Organization Address [facility]/ZIP Co de Phone Number [facility] [address] [place] [address], [place] [phone] * (ABNORMAL) POCT Glucose, blood (06/20/2025 7:33 PM EDT) Glucose POCT 151(H) 70 - 100 mg/dL 06/20/2025 7:33 PM EDT [facility] Blood Capillary blood specimen / Unknown 06/20/2025 7:33 PM EDT 06/20/2025 7:34 PM EDT us Kerry Ji MD LAB POINT OF CARE TE ST DOCKED DEVICE UNSOLICITED RESULTS Final Result Performing Organization Address [facility]/ZIP Co de Phone Number [facility] [address] [place] [address], [place] [phone] * (ABNORMAL) POCT Glucose, blood (06/20/2025 5:27 PM EDT) Glucose POCT 150(H) 70 - 100 mg/dL 06/20/2025 5:28 PM EDT [facility] Blood Capillary blood specimen / Unknown 06/20/2025 5:27 PM EDT 06/20/2025 5:29 PM EDT us Kerry Ji MD LAB POINT OF CARE TE ST DOCKED DEVICE UNSOLICITED RESULTS Final Result Performing Organization Address City/[facility]/ZIP Co de Phone Number [facility] [address] [place] [address], [place] [phone] * Vancomycin random (06/20/2025 9:50 AM EDT) Pathologist [facility] Vancomycin Rm 19.8 mcg/mL LAB CHEMISTRY METHOD 06/20/2025 10:48 AM EDT [facility] Blood Venous blood specimen / Unknown Venipuncture / Unknown 06/20/2025 9:50 AM EDT 06/20/2025 9:56 AM EDT Rashid CHACON LAB BLOOD ORDERABLES Final Resu lt [facility] [address] [place] [address], * (ABNORMAL) CBC - Every 3 Days (06/20/2025 6:12 AM EDT) [facility] WBC 7.9 4.8 - 10.8 K/mcL LAB HEMETOLOGY METHOD 06/20/2025 8:08 AM [facility] RBC 3.10(L) 4.50 - 5.50 M/mcL LAB HEMETOLOGY METHOD 06/20/2025 8:08 AM [facility] Hemoglobin 9.8(L) 13.5 - 17.5 g/dL LAB HEMETOLOGY METHOD 06/20/2025 8:08 AM [facility] Hematocrit 31.4(L) 42.0 - 54.0 % LAB HEMETOLOGY METHOD 06/20/2025 8:08 AM [facility] MCV 101.9(H) 79.0 - 98.0 FL LAB HEMETOLOGY METHOD 06/20/2025 8:08 AM [facility] MCH 31.8 27.0 - 32.0 pcg LAB HEMETOLOGY METHOD 06/20/2025 8:08 AM [facility] MCHC 31.2(L) 32.0 - 37.0 g/dL LAB HEMETOLOGY METHOD 06/20/2025 8:08 AM EDT [facility] RDW 17.5(H) 11.0 - 15.0 % LAB HEMETOLOGY METHOD 06/20/2025 8:08 AM EDT [facility] Platelets 194 130 - 400 K/mcL LAB HEMETOLOGY METHOD 06/20/2025 8:08 AM EDT [facility] MPV 9.8 7.0 - 11.0 FL LAB HEMETOLOGY METHOD 06/20/2025 8:08 AM EDT [facility] NRBC 0.0 <1.0 % LAB HEMETOLOGY METHOD 06/20/2025 8:08 AM EDT [facility] NRBC Absolute 0.00 <0.10 K/mcL LAB HEMETOLOGY METHOD 06/20/2025 8:08 AM EDT [facility] Blood Venous blood specimen / Unknown Venipuncture / Unknown 06/20/2025 6:12 AM EDT 06/20/2025 7:52 AM EDT Andie CHACON LAB BLOOD ORDERABLES Final Res ult [facility] [address] [place] [address], * (ABNORMAL) Basic metabolic panel (06/20/2025 6:12 AM EDT) Sodium 144 133 - 145 mmol/L LAB CHEMISTRY METHOD 06/20/2025 8:49 AM EDT [facility] Potassium 4.0 3.5 - 5.5 mmol/L LAB CHEMISTRY METHOD 06/20/2025 8:49 AM EDT [facility] Chloride 109 96 - 110 mmol/L LAB CHEMISTRY METHOD 06/20/2025 8:49 AM EDT [facility] CO2 28 21 - 32 mmol/L LAB CHEMISTRY METHOD 06/20/2025 8:49 AM T [facility] Anion Gap 7 3 - 11 LAB CHEMISTRY METHOD 06/20/2025 8:49 AM [facility] Glucose 108(H) 70 - 100 mg/dL LAB CHEMISTRY METHOD 06/20/2025 8:49 AM [facility] BUN 29(H) 5 - 25 mg/dL LAB CHEMISTRY METHOD 06/20/2025 8:49 AM [facility] Creatinine 1.44(H) 0.70 - 1.30 mg/dL LAB CHEMISTRY METHOD 06/20/2025 8:49 AM [facility] eGFR 48(L) >=60 mL/min/1. 73m2 LAB CHEMISTRY METHOD 06/20/2025 8:49 AM [facility] Comment:Calculation based on the Chronic Kidney Disease Epidemiology Collaboration (CKD-EPI) equation refit without adjustment for race. BUN/Creatinine Ratio 20.1 LAB CHEMISTRY METHOD 06/20/2025 8:49 AM [facility] Calcium 8.9 8.5 - 10.5 mg/dL LAB CHEMISTRY METHOD 06/20/2025 8:49 AM [facility] Blood Venous blood specimen / Unknown Venipuncture / Unknown 06/20/2025 6:12 AM EDT 06/20/2025 7:51 AM EDT us Rashid CHACON LAB BLOOD ORDERABLES Final Resu lt [facility] [address] [place] [address], * (ABNORMAL) POCT Glucose, blood (06/19/2025 10:49 PM EDT) Glucose POCT 128(H) 70 - 100 mg/dL 06/19/2025 10:50 PM EDT [facility] Blood Capillary blood specimen / Unknown 06/19/2025 10:49 PM EDT 06/19/2025 10:51 PM EDT Kerry Ji MD LAB POINT OF CARE TE ST DOCKED DEVICE UNSOLICITED RESULTS Final Result Performing Organization Address City/[facility]/ZIP Co de Phone Number [facility] [address] [place] [address], [place] [phone] * C-reactive protein (06/19/2025 12:29 PM EDT) [facility] C-Reactive Protein 0.47 <=0.50 mg/dL LAB CHEMISTRY METHOD 06/19/2025 7:28 PM EDT [facility] Blood Venous blood specimen / Unknown Venipuncture / Unknown 06/19/2025 12:29 PM EDT 06/19/2025 1:28 PM EDT Rashid CHACON LAB BLOOD ORDERABLES Final Resu lt Performing Organization Address City/[facility]/ZIP Co de Phone Number [facility] [address] [place] [address], [place] [phone] * (ABNORMAL) CBC auto differential (06/19/2025 12:29 PM EDT) [facility] WBC 7.5 4.8 - 10.8 K/mcL LAB HEMETOLOGY METHOD 06/19/2025 1:36 PM EDT [facility] RBC 3.40(L) 4.50 - 5.50 M/mcL LAB HEMETOLOGY METHOD 06/19/2025 1:36 PM EDT [facility] Hemoglobin 11.0(L) 13.5 - 17.5 g/dL LAB HEMETOLOGY METHOD 06/19/2025 1:36 PM EDT [facility] Hematocrit 34.7(L) 42.0 - 54.0 % LAB HEMETOLOGY METHOD 06/19/2025 1:36 PM EDT [facility] MCV 102.1(H) 79.0 - 98.0 FL LAB HEMETOLOGY METHOD 06/19/2025 1:36 PM EDT [facility] MCH 32.4(H) 27.0 - 32.0 pcg LAB HEMETOLOGY METHOD 06/19/2025 1:36 [facility] MCHC 31.7(L) 32.0 - 37.0 g/dL LAB HEMETOLOGY METHOD 06/19/2025 1:36 [facility] RDW 17.4(H) 11.0 - 15.0 % LAB HEMETOLOGY METHOD 06/19/2025 1:36 PM [facility] Platelets 232 130 - 400 K/mcL LAB HEMETOLOGY METHOD 06/19/2025 1:36 [facility] MPV 9.8 7.0 - 11.0 FL LAB HEMETOLOGY METHOD 06/19/2025 1:36 [facility] NRBC 0.0 <1.0 % LAB HEMETOLOGY METHOD 06/19/2025 1:36 PM [facility] NRBC Absolute 0.00 <0.10 K/mcL LAB HEMETOLOGY METHOD 06/19/2025 1:36 PM [facility] Neutrophils Relative 51.7 % LAB HEMETOLOGY METHOD 06/19/2025 1:36 PM [facility] Lymphocytes Relative 28.9 % LAB HEMETOLOGY METHOD 06/19/2025 1:36 PM [facility] Monocytes Relative 13.2 % LAB HEMETOLOGY METHOD 06/19/2025 1:36 PM [facility] Eosinophils Relative 5.4 % LAB HEMETOLOGY METHOD 06/19/2025 1:36 PM [facility] Basophils Relative 0.5 % LAB HEMETOLOGY METHOD 06/19/2025 1:36 PM EDT [facility] Immature Granulocytes Relative 0.3 % LAB HEMETOLOGY METHOD 06/19/2025 1:36 PM EDT [facility] Neutrophils Absolute 3.86 1.50 - 7.00 K/mcL LAB HEMETOLOGY METHOD 06/19/2025 1:36 PM EDT [facility] Lymphocytes Absolute 2.15 1.00 - 5.00 K/mcL LAB HEMETOLOGY METHOD 06/19/2025 1:36 PM EDT [facility] Monocytes Absolute 0.98 0.20 - 1.00 K/mcL LAB HEMETOLOGY METHOD 06/19/2025 1:36 PM EDT [facility] Eosinophils Absolute 0.40 0.00 - 0.50 K/mcL LAB HEMETOLOGY METHOD 06/19/2025 1:36 PM EDT [facility] Basophils Absolute 0.04 0.00 - 0.20 K/mcL LAB HEMETOLOGY METHOD 06/19/2025 1:36 PM EDT [facility] Immature Granulocytes Absolute 0.02 0.00 - 0.03 K/mcL LAB HEMETOLOGY METHOD 06/19/2025 1:36 PM EDT [facility] Blood Venous blood specimen / Unknown Venipuncture / Unknown 06/19/2025 12:29 PM EDT 06/19/2025 1:28 PM EDT us Naveen Dickinson MD LAB BLOOD ORDERABLES Final Resul t [facility] [address] [place] [address], * Type and screen (06/19/2025 12:29 PM EDT) ABO Group O 06/19/2025 2:10 PM EDT [facility] Rh Type Positive 06/19/2025 2:10 PM EDT [facility] Antibody Screen Negative 06/19/2025 2:10 PM [facility] Blood Venous blood specimen / Unknown Venipuncture / Unknown 06/19/2025 12:29 PM EDT 06/19/2025 1:28 PM EDT Naveen Dickinson MD LAB BLOOD BANK TEST ORDERABLES F inal Result [facility] [address] [place] [address], * (ABNORMAL) Basic metabolic panel (06/19/2025 12:29 PM EDT) Sodium 143 133 - 145 mmol/L LAB CHEMISTRY METHOD 06/19/2025 1:55 PM [facility] Potassium 4.4 3.5 - 5.5 mmol/L LAB CHEMISTRY METHOD 06/19/2025 1:55 PM [facility] Chloride 110 96 - 110 mmol/L LAB CHEMISTRY METHOD 06/19/2025 1:55 PM [facility] CO2 28 21 - 32 mmol/L LAB CHEMISTRY METHOD 06/19/2025 1:55 PM [facility] Anion Gap 5 3 - 11 LAB CHEMISTRY METHOD 06/19/2025 1:55 PM [facility] Glucose 118(H) 70 - 100 mg/dL LAB CHEMISTRY METHOD 06/19/2025 1:55 PM [facility] BUN 31(H) 5 - 25 mg/dL LAB CHEMISTRY METHOD 06/19/2025 1:55 PM [facility] Creatinine 2.01(H) 0.70 - 1.30 mg/dL LAB CHEMISTRY METHOD 06/19/2025 1:55 PM [facility] eGFR 32(L) >=60 mL/min/1. 73m2 LAB CHEMISTRY METHOD 06/19/2025 1:55 PM EDT [facility] Comment:Calculation based on the Chronic Kidney Disease Epidemiology Collaboration (CKD-EPI) equation refit without adjustment for race. BUN/Creatinine Ratio 15.4 LAB CHEMISTRY METHOD 06/19/2025 1:55 PM EDT [facility] Calcium 9.1 8.5 - 10.5 mg/dL LAB CHEMISTRY METHOD 06/19/2025 1:55 PM EDT [facility] Blood Venous blood specimen / Unknown Venipuncture / Unknown 06/19/2025 12:29 PM EDT 06/19/2025 1:28 PM EDT us Naveen Dickinson MD LAB BLOOD ORDERABLES Final Resul t [facility] [address] [place] [address], documented in this encounter Visit Diagnoses Not on filedocumented in this encounter Admitting Diagnoses Diagnosis Non-healing wound of amputation stump (CMS/[facility]ER[facility] V24, CMS/FORMER[facility] V28) documented in this encounter Administered Medications Inactive Administered Medications - up to 3 most recent administrations Medication Order MAR Action Action Date Dose Rate Site aspirin chewable tablet 81 mg 81 mg, [...] - 69 mg/dl*, Starting on Wed06/19/25 at 192 dextrose (D50W) 50% injection 25 g 25 [...] Audrey 06/21/25 at 0857, For 1 dose heparin (UFH) injection 5,000 Units 5,000 Units, [...] PM EDT 10 mg HYDROmorphone (DILAUDID) injection 1 mg 1 [...] AM EDT 1 Units Left Lower Abdomen LORazepam (ATIVAN) tablet 0.5 mg 0.5 mg, [...] 9:48 PM EDT 1,000 mg 250 mL/hr documented in this encounter Discontinued Medications [...] (Given - Provider: Tania Miller RN) 0829 ([facility] Hold - Provider: Automatic Transfer Provider - Reason: Patient not available)0900 (Not Given - Provider: Veronica Michelle RN - Reason: Patient not available)110 ([facility] Unhold - Provider: Automatic Transfer Provider) 0815 (Given - Provider: Eli Barr, GLO) atenoloL (TENORMIN) tablet 50 mg 50 mg, oral, Nightly, First dose on Wed06/19/25 at 2100 2110 (Given - Provider: Angel Abdi, RN) 0829 ([facility] Hold - Provider: Automatic Transfer Provider - Reason: Patient not available)110 ([facility] Unhold - Provider: Automatic Transfer Provider)2128 (Given - Provider: Angel Abdi, RN) atorvastatin (LIPITOR) tablet 80 mg 80 mg, oral, Nightly, First dose on Wed06/19/25 at 2099 2110 (Given - Provider: Angel Abdi RN) 0829 ([facility] Hold - Provider: Automatic Transfer Provider - Reason: Patient not available)110 ([facility] Unhold - Provider: Automatic Transfer Provider)2128 (Given - Provider: Angel Abdi, GLO) furosemide (LASIX) tablet 20 mg 20 mg, oral, Daily, First dose on Wed06/19/25 at 1945 0800 (Given - Provider: Tania Miller RN) 0829 ([facility] Hold - Provider: Automatic Transfer Provider - Reason: Patient not available)0900 (Not Given - Provider: Veronica Michelle RN - Reason: Patient not available)110 ([facility] Unhold - Provider: Automatic Transfer Provider) 0815 (Given - Provider: Eli Barr, GLO) gabapentin (NEURONTIN) capsule 100 mg 100 mg, oral, Nightly, First dose on Wed06/19/25 at 2099 211 (Given - Provider: Angel Abdi RN) 0829 ([facility] Hold - Provider: Automatic Transfer Provider - Reason: Patient not available)110 ([facility] Unhold - Provider: Automatic Transfer Provider)2128 (Given - Provider: Angel Abdi, GLO) heparin (UFH) injection 5,000 Units 5,000 Units, subcutaneous, Every 12 hours scheduled, First dose (after last modification) on Wed06/20/25 at 2100, Enter Indication for use of heparin (UFH) instead of enoxaparin (LOVENOX): (free text): xavier, Indication: VTE Prophylaxis, Indications: Prophylaxis of Venous Thromboembolism 08 (Given - Provider: Tania Miller, RN)2109 (Given - Provider: Angel Abdi, GLO) 08 ([facility] Hold - Provider: Automatic Transfer Provider - Reason: Patient not available)09 (Not Given - Provider: Veronica Michelle RN - Reason: Patient not available)110 ([facility] Unhold - Provider: Automatic Transfer Provider)2127 (Given - Provider: Angel Abdi RN) 813 (Given - Provider: Eli Barr RN) HYDROmorphone (DILAUDID) injection 0.25 mg (COMPLETED) 0.25 mg, intravenous, Once, On 06/23/25 at 0615, For 1 dose 0640 (Given [...] - education provided - Comment: poc- 101) 828 (DEC Hold - Provider: Automatic Transfer Provider [...] met - Comment: blood sugar 90 own freestyle)1102 (Not Given - Provider: Tania Miller RN [...] Tania Miller RN)211 (Given - Provider: Angel Abdi RN) 0829 ([facility] Hold - Provider: Automatic Transfer Provider - Reason: Patient not available)0900 (Not Given - Provider: Veronica Michelle RN - Reason: Patient not available)1109 ([facility] Unhold - Provider: Automatic Transfer Provider)2129 (Given - Provider: Angel Abdi RN) 0815 (Given - Provider: Eli aBrr RN) multivitamin tablet 1 tablet 1 tablet [...] or split. 0614 (Given - Provider: Andie Cunningham, GLO) 0641 (Given - Provider: Angel Abdi, GLO)0829 (DEC Hold - Provider: Automatic Transfer Provider [...] Cunningham RN)0747 (New Bag - Provider: Tania Miller, GLO)0828 (Stopped - Provider: Tania Miller RN)1350 (New Bag - Provider: Tania Miller, GLO)1420 (Stopped - Provider: Tania Miller, RN)2055 (New Bag - Provider: Angel Abdi RN)2252 (Stopped - Provider: Angel Abdi, GLO) 0142 (New Bag - Provider: Angel Abdi, RN)0222 (Stopped - Provider: Angel Abdi, RN)0822 (New Bag - Provider: Nickolas Wesley CRNA)0829 (DEC Hold - Provider: Automatic Transfer Provider - Reason: Patient not available)0832 (Canceled Entry - Provider: Nickolas Wesley CRNA)1109 (MAR Unhold - Provider: Automatic Transfer Provider)1415 (New Bag - Provider: Veronica Michelle, GLO)1445 (Stopped - Provider: Veronica Michelle, GLO)2040 (New Bag - Provider: Angel Abdi RN)2206 (Stopped - Provider: Angel Abdi, RN) 0122 (New Bag - Provider: Angel Abdi, GLO)0149 (Stopped - Provider: Angel Abdi, RN)0814 (New Bag - Provider: Eli Barr, GLO)0846 (Stopped - Provider: Eli Barr, RN)1400 (Canceled [...] Trough goal = 10-15, Indication: Skin/Soft Tissue 2144 (New Bag - Provider: Angel Abdi RN) 0147 (Stopped - Provider: Angel Abdi, GLO)0829 ([facility] Hold - Provider: Automatic Transfer Provider - Reason: Patient not available)1109 ([facility] Unhold - Provider: Automatic Transfer Provider)2128 (New Bag - Provider: Angel Abdi RN) 0001 (Stopped - Provider: Angel Abdi RN) PRN Medication Order 06/22/2025 06/23/2025 06/24/2025 bisacodyL (DULCOLAX) EC tablet 10 mg 10 mg, oral, Daily PRN, constipation, Starting on Wed06/19/25 at 1926, 1st line for treatment of constipation - give scheduled if no bowel movement in past 24 hours. Do not crush, chew, or split. 0829 ([facility] Hold - Provider: Automatic Transfer Provider - Reason: Patient not available)1109 ([facility] Unhold - Provider: Automatic Transfer Provider) dextrose (D50W) 50% injection 12.5 g 12.5 g, intravenous, Every 15 min PRN, low blood sugar, moderate hypoglycemia *Patient is Unconscious, NPO, unable to swallow: BG 54 - 69 mg/dl*, Starting on Wed06/19/25 at 1927 0829 ([facility] Hold - Provider: Automatic Transfer Provider - Reason: Patient not available)1109 ([facility] Unhold - Provider: Automatic Transfer Provider) dextrose (D50W) 50% injection 25 g 25 g, intravenous, Every 15 min PRN, low blood sugar, severe hypoglycemia *Patient is Unconscious, NPO, unable to swallow: BG LESS than 54 mg/dL*, Starting on Wed06/19/25 at 1927 0829 ([facility] Hold - Provider: Automatic Transfer Provider - Reason: Patient not available)1109 ([facility] Unhold - Provider: Automatic Transfer Provider) dextrose 15 gram/60 mL oral solution 15 g 15 g, oral, Every 15 min PRN, low blood sugar, hypoglycemia *Patient conscious AND able to drink and swallow safely*, Starting on Wed06/19/25 at 1927 0829 ([facility] Hold - Provider: Automatic Transfer Provider - Reason: Patient not available)1109 ([facility] Unhold - Provider: Automatic Transfer Provider) dextrose 15 gram/60 mL oral solution 30 g 30 g, oral, Every 15 min PRN, low blood sugar, hypoglycemia *Patient conscious AND able to drink and swallow safely*, Starting on Wed06/19/25 at 1927 0829 ([facility] Hold - Provider: Automatic Transfer Provider - Reason: Patient not available)1109 ([facility] Unhold - Provider: Automatic Transfer Provider) glucagon HCL injection 1 mg 1 mg, intramuscular, Once as needed, low blood sugar, severe hypoglycemia, Starting on Wed06/21/25 at 0857, For 1 dose 0829 ([facility] Hold - Provider: Automatic Transfer Provider - Reason: Patient not available)1109 ([facility] Unhold - Provider: Automatic Transfer Provider) hydrALAZINE (APRESOLINE) injection 10 mg 10 mg, intravenous, Every 6 hours PRN, systolic BP greater than:, SBP >170 or DBB >95mmHg, Starting on Wed06/22/25 at 1531 2342 (Given - Provider: Angel Abdi RN - Comment: 174/80) 0829 ([facility] Hold - Provider: Automatic Transfer Provider - Reason: Patient not available)1109 ([facility] Unhold - Provider: Automatic Transfer Provider) HYDROmorphone (DILAUDID) injection 1 mg (CANCELED) 1 mg, intravenous, Every 3 hours PRN, severe pain, Starting on Audrey 06/21/25 at 1018 0053 (Given - Provider: Andie Cunningham, RN)0409 (Given - Provider: Andie Cunningham, GLO) HYDROmorphone (DILAUDID) injection 1 mg 1 mg, intravenous, Every 3 hours PRN, severe breakthrough pain, Starting on Wed06/22/25 at 1303 2112 (Given - Provider: Angel Abdi, RN) 0444 (Given - Provider: Angel Abdi, RN)0829 ([facility] Hold - Provider: Automatic Transfer Provider - Reason: Patient not available)1109 ([facility] Unhold - Provider: Automatic Transfer Provider) 0116 [...] -Administer up to 10 doses (0.4 mg) 0829 ([facility] Hold - Provider: Automatic Transfer Provider - Reason: Patient not available)1109 ([facility] Unhold - Provider: Automatic Transfer Provider) ondansetron (PF) (ZOFRAN) injection 4 mg(Linked Group 1) 4 mg, intravenous, Every 8 hours PRN, vomiting, nausea, Starting on Wed06/19/25 at 1926, -ONLY give IV if patient is unable to take orally. -If inadequate response within 30 minutes, proceed to next-line agent or contact provider if no further options ordered. 0829 ([facility] Hold - Provider: Automatic Transfer Provider - Reason: Patient not available)1109 ([facility] Unhold - Provider: Automatic Transfer Provider) ondansetron [...] allow tablet to dissolve on tongue. 0829 ([facility] Hold - Provider: Automatic Transfer Provider - Reason: Patient not available)1109 ([facility] Unhold - Provider: Automatic Transfer Provider) oxyCODONE (ROXICODONE) immediate release tablet 10 mg 10 mg, oral, Every 4 hours PRN, severe pain, moderate pain or when therapies for mild pain were not effective, Starting on Wed06/22/25 at 1304 1401 (Given - Provider: Tania Miller, GLO)1924 (Given - Provider: Tania Miller RN) 0339 (Given - Provider: Angel bAdi, GLO)0829 ([facility] Hold - Provider: Automatic Transfer Provider - Reason: Patient not available)1109 ([facility] Unhold - Provider: Automatic Transfer Provider)1209 (Given - Provider: Madeline Cook RN)2129 (Given - Provider: Angel Abdi, GLO) 0614 (Given - Provider: Angel Abdi, GLO)1351 (Given - Provider: Eli Barr RN) oxyCODONE (ROXICODONE) immediate release tablet 5 mg 5 mg, oral, Every 4 hours PRN, moderate pain, Starting on Wed06/22/25 at 1304 0829 ([facility] Hold - Provider: Automatic Transfer Provider - Reason: Patient not available)1109 ([facility] Unhold - Provider: Automatic Transfer Provider) Linked [...] tablet 650 mg 1 HYDROmorphone (DILAUDID) injection 0.25 mg 1 06/23/2025 HYDROmorphone (DILAUDID) injection 0.5 mg 4 06/23/2025 06/19/2025 lactated Ringer's infusion 3 06/23/2025 0 06/19/2025 morphine 2 mg/mL injection 2 mg 1 ondansetron (PF) (ZOFRAN) injection 4 mg 2 06/23/2025 06/19/2025 ondansetron ODT (ZOFRAN-ODT) disintegrating tablet 4 mg 2 06/23/2025 06/19/2025 oxyCODONE (ROXICODONE) immed iate release tablet 5 mg 5 06/23/2025 06/19/2025 amLODIPine (NORVASC) tablet 5 mg 1 06/22/20 hydrALAZINE (APRESOLINE) injection 10 mg 1 06/22/2025 HYDROmorphone (DILAUDID) injection 1 mg 4 0 06/22/2025 06/19/2025 oxyCODONE (ROXICODONE) immed iate release tablet 10 mg 1 06/22/2025 glucagon HCL injection 1 mg 2 06/21/2025 06/19/2025 multivitamin tablet 1 tablet 1 06/21/2025 fentaNYL (PF) (SUBLIMAZE) injection 50 mcg 1 06/20/2025 haloperidol lactate (HALDOL) injection 1 mg 1 06/20/2025 piperacillin-tazobactam (ZOS YN) 2.25 g in sodium chloride 0.9 % 100 mL IVPB 2 06/20/20252024 vancomycin (VANCOCIN) 1,000 mg in sodium chloride 0.9 % 250 mL IVPB 2 06/20/2025 06/19/2025 vancomycin (VANCOCIN) vial for injection 1 06/20/2025 aspirin chewable tablet 81 mg 1 06/19/2025 atenoloL (TENORMIN) tablet 50 mg 1 06/19/20 atorvastatin (LIPITOR) tablet 80 mg 1 06/19 bisacodyL (DULCOLAX) EC tablet 10 mg 1 06/04 dextrose (D50W) 50% injection 12.5 g 1 06/04 dextrose (D50W) 50% injection 25 g 1 2024 dextrose 15 gram/60 mL oral solution 15 g 1 06/19/2025 dextrose 15 gram/60 mL oral solution 30 g 1 06/19/2025 furosemide (LASIX) tablet 20 mg 1 gabapentin (NEURONTIN) capsule 100 mg 1 heparin (UFH) injection 5,000 Units 2 06/19 insulin glargine (LANTUS) in jection 20 Units 1 06/19/2025 insulin lispro injection 1-6 Units 1 2024 LORazepam (ATIVAN) tablet 0.5 mg 06/19/20 naloxone (NARCAN) injection 0.04 mg 1 06/19 pantoprazole (PROTONIX) EC tablet 40 mg 1 0 06/19/2025 vancomycin (VANCOCIN) IVPB 1 ,500 mg in 0.9 % sodium chloride 500 mL - CNR 1 06/19/2025 Consult Count Last Ordered Date First Orde red Date WOUND CARE INPATIENT FOLLOW-UP 1 06/20/2025 IP CONSULT TO NUTRITION SERVICES 06/19/20 IP CONSULT TO VASCULAR SURGERY 1 [...] 06/19/2025 documented in this encounter Care Teams Heating Worker Relationship Specialty Start Date End Date Diana Corona PA [address] [place] [id number] PCP - General Physician Corporate Law Specialist 04/10/25 documented as of this encounter
--- OUTSIDE RECORDS SUMMARY | 2025-06-23 08:22 | XMS_ITS | Encounter Summary ---
Author Organization [facility] Address [address] [place] [address] Care Team Providers Care Drafter Civil Name Role Phone Diana Corona Primary Care Provider [phone] Reason for Visit * Auth/Cert (Routine) Specialty Diagnoses / Procedures Referred By Contac t Referred To Contact Diagnoses Non-healing wound of amputation stump ([facility] V24, [facility] V28) Procedures . Kerry Ji MD [address] [place] [address] Phone: tel: fax: [facility] Emergency [address] [place] [address] Phone: tel: Referral ID Status Reason Start Date Expiration Date Visits Re quested Visits Authorized [id number] 1 1 Encounter Details Date Type Department Care Team (Late st Contact Info) Description 06/23/2025 8:22 AM EDT Anesthesia Event [facility] Main OR [address] [place] [address] Sergio Cadet MD [address] [place] [address] Anesthesia Record Procedure Summary Procedure Name Responsible Anesthesiologist Anesthesia Start Time Anesthesia Stop Time DEBRIDEMENT BK AMP APPLICATION OF WOUND VAC (Right: Leg Lower) Sergio Cadet MD 06/23/25 0822 06/23/25 0915 Events Date Time Event Comment 06/23/2025 0800 0822 An Start 0822 An Start Data The patient wa s reevaluated immediately before moderate or deep sedation use and before anesthesia induction. 0822 In Room 0832 Anesthesia Ready 0847 Proc Start 0906 Proc Fin 0913 an stop data 0913 Out of Room 0915 An Stop 0915 Handoff to RN I completed my handoff to the receiving nurse during which we: 1. Identified the patient 2. Identified the responsible provider 3. Reviewed the pertinent medical history 4. Discussed the surgical course 5. Reviewed intra-op anesthesia management and issues during anesthesia 6. Set expectations for post-procedure period 7. Allowed opportunity for questions and acknowledgement of understanding. Meds Name Total fentaNYL 0.05 mg/mL 100 mcg propofol (DIPRIVAN) infusion 10 mg/mL 21 1.19 mg midazolam (VERSED) PF injection 1 mg/mL 2 mg ketamine (KETALAR) injection 50 mg/mL sy ringe 50 mg piperacillin-tazobactam (ZOSYN) 2.25 g i n sodium chloride 0.9 % 100 mL IVPB 2.25 g phenylephrine 1 mg/10 mL (100 mcg/mL) in 0.9% NaCl IV syringe 600 mcg lactated Ringer's infusion 250 mL * Agents No agents on file. * Blood No blood administrations on file. 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 Answer Date of Assessment Author No 05/23/2025 5:29 PM Mckeon RN * Do you have serious difficulty walking or climbing stairs? Answer Date of Assessment Author Yes 05/23/2025 5:29 PM Mckeon RN * Do you have serious difficulty dressing or bathing? Answer Date of Assessment Author No 05/23/2025 5:29 PM Mckeon RN * Because of a physical, mental, [...] PM Mckeon RN documented in this encounter Progress Notes * Nickolas Wesley CRNA - 06/23/2025 11:13 AM EDT Patient: Mark Anthony Omalley Procedure Summary Date: 06/23/25 Room / Location: [facility] OR [facility] OR Anesthesia Start: 821 Anesthesia Stop: 914 Procedure: DEBRIDEMENT BK AMP APPLICATION OF WOUND VAC (Right: Leg Lower) Diagnosis: Surgeons: Ahmet Banks MD Responsible Provider: Sergio Cadet MD Anesthesia Type: MAC ASA Status: 4 - Emergent Anesthesia Plan: MAC Last Vitals: Vitals Value Taken Time BP 163/68 06/23/25 1103 Temp 36.6 ??C (97.9 ??F) 06/23/25 1103 Pulse 70 06/23/25 1103 Resp 15 06/23/25 1103 SpO2 93 % 06/23/25 1103 Pain Score: 0 - No pain Anesthesia Post Evaluation Patient location during evaluation: PACU Patient participation: complete - patient participated Level of consciousness: awake Pain score: 0 Pain management: adequate Airway patency: patent Anesthetic complications: no Cardiovascular status: acceptable, blood pressure returned to baseline, hemodynamically stable and stable Respiratory status: acceptable, unassisted, spontaneous ventilation, room air and nonlabored ventilation Hydration status: acceptable Nausea: No Vomiting: No There were no known notable events for this encounter. * Sergio Cadet MD - 06/23/2025 7:08 AM EDT ECHO (2020): EF 55%, mild TR and mild MR Relevant Problems Cardio (+) AAA (abdominal aortic aneurysm) ([facility] V24) (+) Acute deep vein thrombosis (DVT) of femoral vein of right lower extremity ([facility] V24, [facility] (+) CHF (congestive heart failure) ([facility] V24, [facility] V28) (+) Coronary artery disease involving [place] heart without angina pectoris (+) Heart block AV complete ([facility] V24, [facility] V28) (+) Hypertension (+) Occlusion of arterial bypass graft ([facility] V24) (+) Pacemaker (+) SSS (sick sinus syndrome) ([facility] V24, [facility] V28) (+) ST elevation myocardial infarction (STEMI) ([facility] V24, [facility] V28) /Renal (+) Chronic renal insufficiency Pulmonary (+) Bacterial pneumonia (+) Chronic obstructive pulmonary disease ([facility] V24, [facility] V28) (+) CHRISTY (obstructive sleep apnea) GI (+) Gastroesophageal reflux disease without esophagitis Other (+) Acute deep vein thrombosis (DVT) of femoral vein of right lower extremity ([facility] V24, [facility]) (+) Anemia (+) Malignant neoplasm of right vocal cord ([facility] V24, [facility] V28) (+) Throat cancer ([facility] V24, [facility] V28) Clinical information reviewed: Tobacco Allergies Meds Med Hx Surg Hx Fam Hx Soc Hx Anesthesia Plan ASA 4 - emergent Anesthesia Plan: MAC Anesthesia Risks Discussed serious complications, dental injury, nausea, pain, sore throat, allergic reaction and corneal abrasion Anesthetic plan and risks discussed with patient. Anesthesia Evaluation Airway Mallampati: II Dental (+) implants Pulmonary - normal exam (+) COPD, sleep apnea Cardiovascular (+) pacemaker (pacer for heart block), hypertension, past AL (2001 and 1996), CAD, CABG/stent (s/p CABG x4 and stents in past), dysrhythmias (complete heart block), CHF Rhythm: regular Rate: normal ROS comment: HLD PVD H/o DVT Neuro/Psych (+) psychiatric history (chronic pain on opioids) GI/Hepatic/Renal (+) GERD, chronic renal disease CRI Endo/Other (+) diabetes mellitus type 2 using insulin Comments: Anemia; throat CA s/p radiation Abdominal PONV RISK SCORE: 2 Vitals: 06/22/25 2320 06/23/25 0135 06/23/25 0405 06/23/25 0514 BP: (!) 174/80 134/76 (!) 153/66 (!) 147/79 BP Location: Right arm;Upper Right arm;Upper Left arm Right arm;Upper Patient Position: Lying Lying Lying Lying Pulse: 70 70 Resp: 16 Temp: 36.9 ??C (98.4 ??F) TempSrc: Temporal SpO2: 95% 97% Weight: Height: SpO2 Readings from Last 1 Encounters: 06/23/25 97% WBC Date Value Ref Range Status 06/23/2025 8.4 4.8 - 10.8 K/mcL Final RBC Date Value Ref Range Status 06/23/2025 3.20 (L) 4.50 - 5.50 M/mcL Final Hemoglobin Date Value Ref Range Status 06/23/2025 10.2 (L) 13.5 - 17.5 g/dL Final Hematocrit Date Value Ref Range Status 06/23/2025 31.2 (L) 42.0 - 54.0 % Final Platelets Date Value Ref Range Status 06/23/2025 209 130 - 400 K/mcL Final MCV Date Value Ref Range Status 06/23/2025 99.0 (H) 79.0 - 98.0 FL Final Allergies Allergen Reactions Iodinated Contrast Media Rash Rash / dermatitis SWELLING Sulfa (Sulfonamide Antibiotics) Rash Rash/dermatitis Sulfamethoxazole-Trimethoprim Rash Tetracyclines Rash STOP BANG: No data recorded NPO Status: No data recorded documented in this encounter Plan of Treatment Upcoming Encounters Date Type Department Care Team (Late st Contact Info) Description 07/20/2025 10:00 AM EDT Office Visit Vascular Surgery - [place] [address] [facility] [address] [place] [phone] Andie Chua PA [address] [place] [address] 06/06/2026 1:30 PM EDT Ancillary Procedure [facility] [address] [facility] [address] [place] [phone] documented as of this encounter Visit Diagnoses Not on filedocumented in this encounter Administered Medications Inactive Administered Medications - up to 3 most recent administrations Medication Order MAR Action Action Date Dose Rate Site fentaNYL (PF) (SUBLIMAZE) injection intravenous, As needed, Starting on 06/23/25 at 0826, Anesthesia Intraprocedure Given 06/23/2025 8:35 AM EDT 50 mcg Given 06/23/2025 8:26 AM EDT 50 mcg ketamine (KETALAR) injection intravenous, As needed, Starting on 06/23/25 at 0835, Anesthesia Intraprocedure Given 06/23/2025 8:45 AM EDT 2 5 mg Given 06/23/2025 8:35 AM EDT 25 mg lactated Ringer's infusion intravenous, Continuous PRN, Starting on 06/23/25 at 0822, Anesthesia Intraprocedure New Bag 06/23/2025 8:22 AM EDT midazolam (PF) (VERSED) injection intravenous, As needed, Starting on 06/23/25 at 0823, Anesthesia Intraprocedure Given 06/23/2025 8:23 AM EDT 2 mg phenylephrine (MATT-SYNEPHRINE) injection intravenous, As needed, Starting on 06/23/25 at 0903, Anesthesia Intraprocedure Given 06/23/2025 9:08 AM ED T 200 mcg Given 06/23/2025 9:07 AM EDT 200 mcg Given 06/23/2025 9:03 AM EDT 200 mcg piperacillin-tazobactam (ZOSYN) 2.25 g in sodium chloride [...] 8:40 PM EDT 2.25 g 200 mL/hr propofoL (DIPRIVAN) infusion 10 mg/mL intravenous, Continuous PRN, Starting on 06/23/25 at 0832, Anesthesia Intraprocedure Rate/Dose Change 06/23/2025 9:00 AM EDT 75 mcg/kg/min 36.765 mL/hr Rate/Dose Change 06/23/2025 8:56 AM EDT 100 mcg/kg/min 49. 02 mL/hr Rate/Dose Change 06/23/2025 8:49 AM EDT 125 mcg/kg/min 61. 275 mL/hr documented in this encounter Care Teams Drafter Civil Relationship Specialty Start Date End Date Diana Corona PA [address] [place] [address] PCP - General Physician Fuel Cell Engineer 04/10/25 documented as of this encounter
[2025-06-26 11:21] LABS: Anion Gap 11 (12-20); Blood Urea Nitrogen 27 mg/dL (9-16); Carbon Dioxide 25 mmol/L (22-29); Chloride 112 mmol/L (96-108); Estimated Glomerular Filt Rate 35; Potassium 3.8 mmol/L (3.3-5.1); Sodium 144 mmol/L (135-145)
[2025-06-26 11:26] LABS: Parathyroid Hormone Intact 24.8 pg/mL (8.7-77.1)
--- OUTSIDE RECORDS SUMMARY | 2025-06-26 13:04 | XMS_ITS | Encounter Summary ---
Author Organization [facility] Address [address] [place] [address] Phone Care Team Providers Care Neonatal Social Worker Name Role Phone Jaya Brock MD Primary Care Provider Encounter Details Date Type Department Care Team (Latest Contact Info) Description 12/11/2020 Ancillary Orders [facility] [address] [place] [address] Kash Boles MD [address] [place] [address] [email or web address] Sick sinus syndrome Social History Tobacco Use [...] for device: SSS. Examination: Device type: Pacemaker Taxicab Coordinator: [employer] Mode: DDDR LRL/UPL: 70/130 bpm Mode switches: 0 High V rates: 0 Thresholds, impedances, and sensing stable. Atrial pacin.6% Ventricular pacin.6% Battery: 2 yrs Additional comments: Device functioning appropriately. Normal device function. Patient to follow-up with Charbel Dai of [facility], will transfer [facility] when requested Report prepared by Saúl Mckeon RN us Kash Boles MD [facility] ORDER АННА Final Result documented in this encounter Visit Diagnoses Diagnosis Sick sinus syndrome Sinoatrial node dysfunction Sick sinus syndrome Sinoatrial node dysfunction documented in this encounter Care Teams Neonatal Social Worker Relationship Specialty Start Date End Date Jaya Brock MD [address] [place] [address] PCP - General 09/07/19 documented as of this encounter Additional Source Comments The information contained in this document represents components of the legal health record. It is not the complete legal health record.[facility]
--- OUTSIDE RECORDS SUMMARY | 2025-06-26 13:04 | XMS_ITS | Encounter Summary ---
Author Organization [facility] Address [address] [place] [address] Phone Care Team Providers Care Critical Power Technician Name Role Phone Jaya Brock MD Primary Care Provider Encounter Details Date Type Department Care Team (Late st Contact Info) Description 11/26/2020 Ancillary Orders Non-Invasive Cardiology [address] [place] [address] Ulisses Lyn MD [address] [place] [address] [email or web address] Sick sinus syndrome Social History Tobacco Use [...] dysfunction documented in this encounter Care Teams Critical Power Technician Relationship Specialty Start Date End Date Jaya Brock MD [address] [place] [address] PCP - General 09/07/19 documented as of this encounter Additional Source Comments The information contained in this document represents components of the legal health record. It is not the complete legal health record.[facility]
--- OUTSIDE RECORDS SUMMARY | 2025-06-26 13:04 | XMS_ITS | Encounter Summary ---
Author Organization [facility] Address [address] [place] [address] Phone Care Team Providers Care Before School Name Role Phone Jaya Brock MD Primary Care Provider Encounter Details Date Type Department Care Team (Late st Contact Info) Description 12/11/2020 Procedure Pass Non-Invasive Cardiology [address] [place] [address] Social History Tobacco Use Types Packs/Day Years [...] on filedocumented in this encounter Care Teams Before School Relationship Specialty Start Date End Date Jaya Brock MD [address] [place] [address] PCP - General 09/07/19 documented as of this encounter Additional Source Comments The information contained in this document represents components of the legal health record. It is not the complete legal health record.[facility]
--- OUTSIDE RECORDS SUMMARY | 2025-06-26 13:04 | XMS_ITS | Encounter Summary ---
Author Organization [facility] Address [address] [place] [address] Phone Care Team Providers Care Psychiatric Clinical Nurse Specialist Name Role Phone Jaya Brock MD Primary Care Provider Encounter Details Date Type Department Care Team (Latest Contact Info) Description 12/11/2020 Ancillary Orders [facility] [address] [facility] 3rd Floor, [address] [place] [address] Kash Boles MD [address] [place] [phone] [email or web address] Sick sinus syndrome Social History Tobacco [...] dysfunction documented in this encounter Care Teams Psychiatric Clinical Nurse Specialist Relationship Specialty Start Date End Date Jaya Brock MD [address] [place] [address] PCP - General 09/07/19 documented as of this encounter Additional Source Comments The information contained in this document represents components of the legal health record. It is not the complete legal health record.[facility]
--- OUTSIDE RECORDS SUMMARY | 2025-06-26 13:05 | XMS_ITS | Encounter Summary ---
Author Organization [facility] Address [address] [place] [address] Phone Care Team Providers Care Theatre Director Name Role Phone Irving Swift DO Primary Care Provider [phone] Janee Berry MD, MPH Primary Care Provid er Unknown, Unknown Primary Care Provider Jaya Sanchez MD Primary Care Provider Encounter Details Date Type Department Care Team (Latest Contact Info) Description 07/24/2017 Ancillary Orders [facility] [address] Floor, [address] [place] [address] Ulisses Lyn MD [address] [place] [address] [email or web address] Diagnosis unknown Social History Tobacco Use [...] unknown documented in this encounter Care Teams Theatre Director Relationship Specialty Start Date End Date Irving Swift DO [address] [place] [address] PCP - General 07/22/17 01/18/19 Janee Berry MD, MPH [address] [address] [email or web address] PCP - General Family Medicine 01/19/19 05/23/19 Unknown, Unknown, [address] [address] PCP - General 05/24/19 09/06/19 Jaya Brock MD [address] [place] [address] PCP - General 09/07/19 documented as of this encounter Additional Source Comments The information contained in this document represents components of the legal health record. It is not the complete legal health record.[facility]
--- OUTSIDE RECORDS SUMMARY | 2025-06-26 13:05 | XMS_ITS | Patient Health Record ---
Author Organization [facility] Address [address] [place] [address] Care Team Providers Care Patient Observer Name Role Phone Jeniffer(inactive) Irving DOLAN Primary Care Provider U Jonas Trotter [phone] Allergies Allergen (clinical drug ingredient) Drug/Non Drug [...] Risk Notes Problem Diverticulosis of colon (finding) (837819163) Diverticulosis of colon (without mention of hemorrhage) (562.10) Active confirmed Problem History of polyp of colon (situation) (522349626) Personal history of colonic polyps (V12.72) Active confirmed Problem Screening for malignant neoplasm of colon (593212745) Special screening for malignant neoplasms, colon (V76.51) Active confirmed Plan Of Treatment Future Test Test Name Order Date COLONOSCOPY 12/01/2011 Insurance Providers Payer Name Payer Address Payer Phone Subscriber Number Group Number Insured Name Patient Relationship to Insured Coverage Start Date Coverage End Date MEDICARE OF [place] [address] [place] [address] [id number] MARTINYASSINEES Self - patient is the insured [facility]LY [facility] INDEMNITY [address] [place] [address] [id number] MUSTAPHACHERELLE SMITH Self - patient is the insured Medical (General) History Medical History History ICD Code 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
--- OUTSIDE RECORDS SUMMARY | 2025-06-26 13:05 | XMS_ITS | Encounter Summary ---
Author Organization [facility] Address [address] [place] [address] Phone Care Team Providers Care Cop Name Role Phone Irving Swift DO Primary Care Provider [phone] Janee Berry MD, MPH Primary Care Provid er Unknown, Unknown Primary Care Provider Jaya Sanchez MD Primary Care Provider Encounter Details Date Type Department Care Team (Late st Contact Info) Description 10/13/2017 Ancillary [facility] [address] [place] [address] Ulisses Lyn MD [address] [facility] [place] [address] [email or web address] Social History Tobacco Use Types Packs/Day Years [...] on filedocumented in this encounter Care Teams Cop Relationship Specialty Start Date End Date Irving Swift DO [address] [place] [address] PCP - General 07/22/17 01/18/19 Janee Berry MD, MPH [address] [facility] [address] [place] [address] [email or web address] PCP - General Family Medicine 01/19/19 05/23/19 Unknown, Unknown, [address] [address] PCP - General 05/24/19 09/06/19 Jaya Brock MD [address] [place] [address] PCP - General 09/07/19 documented as of this encounter Additional Source Comments The information contained in this document represents components of the legal health record. It is not the complete legal health record.[facility]
--- OUTSIDE RECORDS SUMMARY | 2025-06-26 13:05 | XMS_ITS | Encounter Summary ---
Author Organization [facility] Address [address] [place] [address] Phone Care Team Providers Care Digital Media Planner Name Role Phone Irving Swift DO Primary Care Provider [phone] Janee Berry MD, MPH Primary Care Provid er Unknown, Unknown Primary Care Provider Jaya Sanchez MD Primary Care Provider Encounter Details Date Type Department Care Team (Latest Contact Info) Description 10/13/2017 Ancillary Orders [facility] [address] [facility] 3rd Floor, [address] [place] [address] Ulisses Lyn MD [address] [place] [address] [email or web address] Complete heart block Social History [...] for device SSS Examination: Device type: pacemaker Data Analysis Intern: MDT Thresholds, impedances, and sensing stable. Mode [...] complete documented in this encounter Care Teams Digital Media Planner Relationship Specialty Start Date End Date Irving Swift DO [address] [place] [address] PCP - General 07/22/17 01/18/19 Janee Berry MD, MPH [address] [address] [email or web address] PCP - General Family Medicine 01/19/19 05/23/19 Unknown, Unknown, [address] [place] [address] PCP - General 05/24/19 09/06/19 Jaya Brock MD [address] [place] [address] PCP - General 09/07/19 documented as of this encounter Additional Source Comments The information contained in this document represents components of the legal health record. It is not the complete legal health record.[facility]
--- OUTSIDE RECORDS SUMMARY | 2025-06-26 13:05 | XMS_ITS | Clinical Summary ---
Author Organization 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 12/30/2017 Overview (07/28/2018): 1996 CABG X 4 02/2009 PCI KAVITA SVG RCA; TO SVG LADD1 03/2011 PCI KAVITA SVG RCA 12/2014 PCI KAVITA SVG Cfx 05/2016 TO SVG RCA; NATIVES TO; SVG-OM/MRATEL-LAD OK Assessment & Plan (08/07/2020 2:45 PM [...] 05/01/2021 05/01/2020, 05/24/2019 Adult Td,Tdap Booster 08/12/2023 08/12/2013, 001 INFLUENZA VACCINE (#1) 2025 0, 07/04/2019, 06/15/2018, Additional history exists COVID-19 VACCINE ( season) 2025 12/02/2020, 11/11/2020 ZOSTER VACCINES Completed 08/03/2018, 01/29/2018 [...] EDT) SODIUM 145 133 - 146 mmol/L [facility] CHLORIDE 106 96 - 108 mmol/L [facility] POTASSIUM 4.9 3.3 - 5.1 mmol/L [facility] CO2 26 21 - 35 mmol/L [facility] BUN 31(H) 6 - 19 mg/dL [facility] CREATININE 1.60(H) 0.5 - 1.5 mg/dL [facility] GLUCOSE 134(H) 70 - 99 mg/dL [facility] CALCIUM 9.7 8.4 - 10.3 mg/dL [facility] EGFR 40(L) >59 mL/min/1.7 3m2 [facility] Comment:Estimated glomerular filtration rate calculated using the CKD-EPI equation. ANION GAP 18 10 - 20 mmol/L [facility] Blood 05/01/2020 3:53 PM EDT 05/01/2020 3:55 PM EDT us Jean Lucero MD LAB BLOOD ORDERABLES Final Resu lt [facility] [address] [place] [address] from Last 3 Months or Most Recently Relevant to Health Maintenance Insurance MEDICARE PART A & B [facility] MEDICARE SUPPLEMENT MEDICARE PART A & B [facility] MEDICARE SUPPLEMENT MEDICARE PART A & B Member Subscriber Plan / Payer ( fective 2002-Present) Name:Mark Anthony Omalley Member ID:[id number] Relation to Subscriber:Self Name:Mark Anthony Omalley Subscriber ID:[id number] Payer ID:[id number] Group ID:Not on file Type:Medicare Address: [employer] [address] [facility] MEDICARE SUPPLEMENT MEDICARE PART A & B [facility] MEDICARE SUPPLEMENT MEDICARE PART A & B [facility] MEDICARE SUPPLEMENT MEDICARE PART A & B [employer] MEDICARE SUPPLEMENT Member Subscriber Plan / Payer ( fective 2006-Present) Name:Mark Anthony Omalley Relation to Subscriber:Self Name:Mark Anthony Omalley Payer ID:[id number] ([facility]) Type:Indemnity Address: [address] [address] MEDICARE PART A & B [employer] MEDICARE SUPPLEMENT MEDICARE PART A & B [employer] MEDICARE SUPPLEMENT MEDICARE PART A & B [employer] MEDICARE SUPPLEMENT Care Teams Color Printer Operator Relationship Specialty Start Date End Date Jaya Brock MD [address] [place] [address] PCP - General 09/07/19 Additional Source Comments The information contained in this document represents components of the legal health record. It is not the complete legal health record.[facility]
--- OUTSIDE RECORDS SUMMARY | 2025-06-26 13:05 | XMS_ITS | Encounter Summary ---
Author Organization [facility] Address [address] [facility] [address] [place] [address] Phone Care Team Providers Care Crystal Syrup Maker Name Role Phone Irving Swift DO Primary Care Provider [phone] Janee Berry MD, MPH Primary Care Provid er Unknown, Unknown Primary Care Provider Jaya Sanchez MD Primary Care Provider Encounter Details Date Type Department Care Team (Late st Contact Info) Description 10/13/2017 Ancillary Orders Non-Invasive Cardiology [address] [place] [address] Ulisses Lyn MD [address] [place] [address] [email or web address] Complete heart block Social History Tobacco Use [...] Complete heart block Examination: Device type: Pacemaker Watch Crystal Molder: Medtronic Mode: DDDR LRL/URL: 70/130 bpm Thresholds, [...] complete documented in this encounter Care Teams Crystal Syrup Maker Relationship Specialty Start Date End Date Irving Swift DO [address] [place] [address] PCP - General 07/22/17 01/18/19 Janee Berry MD, MPH [address] [address] [email or web address] PCP - General Family Medicine 01/19/19 05/23/19 Unknown, MD Price [address] [address] PCP - General 05/24/19 09/06/19 Jaya Brock MD [address] [place] [address] PCP - General 09/07/19 documented as of this encounter Additional Source Comments The information contained in this document represents components of the legal health record. It is not the complete legal health record.[facility]
--- OUTSIDE RECORDS SUMMARY | 2025-06-26 13:05 | XMS_ITS | Patient Health Record ---
[facility] Address [address] [facility] [place], [place] [address] Care Team Providers Care Product/Device Technologist Name Role Phone Irving Swift MD Primary Care Provider Haroon Hatch Unavailable [phone] Allergies Allergen (clinical drug ingredient) Drug/Non Drug [...] Test Name Order Date Hemoglobin A1c 10/18/2015 [id number] NAIL, 1-5 10/18/2015 [id number] Plate 10/18/2015 [id number] SKIN LESIONS, OVER 4 10/18/19 16 [id number] DYSTROPHIC NAILS ANY # Insurance Providers Payer Name Payer Address Payer Phone Subscriber Number Group Number Insured Name Patient Relationship to Insured Coverage Start Date Coverage End Date Medicare National Govt Svcs Inc [address] [place] [phone] [id number] Lyssa Mark Anthony Self - patient is the insured [employer] ([employer]) [address] [place] [address] [id number] Lyssa Mark Anthony Self - patient [...]
--- OUTSIDE RECORDS SUMMARY | 2025-06-26 13:05 | XMS_ITS | Encounter Summary ---
Author Organization [facility] Address [address] [facility] [address] [place] [address] Phone Care Team Providers Care Soft Metals Hand Engraver Name Role Phone Irving Swift DO Primary Care Provider [phone] Janee Berry MD, MPH Primary Care Provid er Unknown, Unknown Primary Care Provider Jaya Sanchez MD Primary Care Provider Encounter Details Date Type Department Care Team (Late st Contact Info) Description 07/24/2017 Ancillary [facility] [address] [place] [address] Ulisses Lyn MD [address] [place] [address] [email or web address] Social History Tobacco Use Types Packs/Day Years [...] on filedocumented in this encounter Care Teams Soft Metals Hand Engraver Relationship Specialty Start Date End Date Irving Swift DO [address] [place] [address] PCP - General 07/22/17 01/18/19 Janee Berry MD, MPH 15 [facility] [address] [place] [address] [email or web address] PCP - General Family Medicine 01/19/19 05/23/19 Unknown, Unknown, [address] [address] PCP - General 05/24/19 09/06/19 Jaya Brock MD [address] [place] [address] PCP - General 09/07/19 documented as of this encounter Additional Source Comments The information contained in this document represents components of the legal health record. It is not the complete legal health record.[facility]
--- OUTSIDE RECORDS SUMMARY | 2025-06-26 13:05 | XMS_ITS | Encounter Summary ---
Author Organization [facility] [place] [address] Care Team Providers Care Supervisor Research Kennel Name Role Phone Diana Corona Primary Care Provider [phone] Encounter Details Date Type Department Care Team (Late st Contact Info) Description 04/24/2025 Lab Requisition [facility] - Main Lab [address] [place] [address] Reyna Ford PA [address] [place] [address] [phone] Unspecified atrial fibrillation (CMS/HCC V24, CMS/HCC V28) [...] AM EDT Office Visit Vascular Surgery - [place] [address] [place] [address] Andie Chua PA [address] [place] [address] 06/06/2026 1:30 PM EDT Ancillary Procedure [facility] - [facility] [address] [facility] [address] [place] [address] documented as of this encounter Procedures Procedure Name Priority Date/Time Associated Diagnosis Comments VITAMIN B12 Routine 04/24/2025 6:02 AM EDT Unspecified atrial fibrillation ([facility] V24, [facility] V28) documented in this encounter Results * (ABNORMAL) Vitamin B12 (04/24/2025 6:02 AM EDT) Vitamin B-12 1,498(H) 250 - 900 pcg/mL LAB CHEMISTRY METHOD 04/24/2025 12:00 PM EDT [facility] Blood Venous blood specimen / Unknown Venipuncture / Unknown 04/24/2025 6:02 AM EDT 04/24/2025 10:02 AM EDT Reyna CHACON LAB BLOOD ORDERABLES Final Re sult [facility] [address] [place] [address], documented in this encounter Visit Diagnoses Diagnosis Unspecified atrial fibrillation (CMS/[facility] V24, [facility] V28) Encounter for adjustment or management of cardiac device documented in this encounter Additional Health Concerns Infection Onset Date Last Indicated Resolved Time 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 05/21/2025 05/21/2025 05/24/2025 7:32 AM E DT Respiratory Rule-Out 05/23/2025 05/23/20252 025 11:46 PM EDT COVID-19 Rule-Out 05/23/2025 05/23/2025 05/23/2025 11:46 PM EDT documented as of this encounter Care Teams Supervisor Research Kennel Relationship Specialty Start Date End Date Diana Corona PA [address] [place] [address] PCP - General Physician Electronic Transaction Implementer 04/10/25 documented as of this encounter
--- OUTSIDE RECORDS SUMMARY | 2025-06-26 13:05 | XMS_ITS | Encounter Summary ---
Author Organization [facility] [place] [address] Care Team Providers Care Field Rep Name Role Phone Diana Corona Primary Care Provider [phone] Encounter Details Date Type Department Care Team (Late st Contact Info) Description 04/22/2025 Lab Requisition [facility] - Main Lab [address] [facility] [place] [address] Frances Meléndez PA [address] [place] [address] Encounter for other general examination [...] of Assessment Author No 02/05/2025 8:35 PM EDT Kellie Smith RN * Are you blind or do you have serious difficulty seeing, even when wearing glasses? Answer Date of Assessment Author No 02/05/2025 8:35 PM EDT Kellie Smith RN * Do you have serious difficulty [...] of Assessment Author No 02/05/2025 8:35 PM XAVIT Kellie Smith RN documented as of this encounter Mental [...] AM EDT Office Visit Vascular Surgery - [place] [address] [place] [address] Andie Chua PA [address] [place] [address] 06/06/2026 1:30 PM EDT Ancillary Procedure [facility] - [facility] [address] [facility] [address] [place] [address] documented as of this encounter Procedures Procedure Name Priority Date/Time Associated Diagnosis Comments COMPLETE BLOOD COUNT Routine 04/22/2025 5:53 AM EDT Encounter for other general examination documented in this encounter Results * (ABNORMAL) Complete blood count (04/22/2025 5:53 AM EDT) [facility] Signature WBC 7.2 4.8 - 10.8 K/mcL LAB HEMETOLOGY METHOD 04/22/2025 9:01 AM [facility] RBC 2.30(L) 4.50 - 5.50 M/mcL LAB HEMETOLOGY METHOD 04/22/2025 9:01 AM [facility] Hemoglobin 7.3(L) 13.5 - 17.5 g/dL LAB HEMETOLOGY METHOD 04/22/2025 9:01 AM [facility] Hematocrit 24.2(L) 42.0 - 54.0 % LAB HEMETOLOGY METHOD 04/22/2025 9:01 AM [facility] MCV 106.6(H) 79.0 - 98.0 FL LAB HEMETOLOGY METHOD 04/22/2025 9:01 AM [facility] MCH 32.2(H) 27.0 - 32.0 pcg LAB HEMETOLOGY METHOD 04/22/2025 9:01 AM [facility] MCHC 30.2(L) 32.0 - 37.0 g/dL LAB HEMETOLOGY METHOD 04/22/2025 9:01 AM [facility] RDW 16.8(H) 11.0 - 15.0 % LAB HEMETOLOGY METHOD 04/22/2025 9:01 AM [facility] Platelets 339 130 - 400 K/mcL LAB HEMETOLOGY METHOD 04/22/2025 9:01 AM [facility] MPV 10.0 7.0 - 11.0 FL LAB HEMETOLOGY METHOD 04/22/2025 9:01 AM [facility] NRBC 0.0 <1.0 % LAB HEMETOLOGY METHOD 04/22/2025 9:01 AM EDT [facility] NRBC Absolute 0.00 <0.10 K/mcL LAB HEMETOLOGY METHOD 04/22/2025 9:01 AM EDT [facility] Blood Venous blood specimen / Unknown Venipuncture / Unknown 04/22/2025 5:53 AM EDT 04/22/2025 8:40 AM EDT us Frances CHACON LAB BLOOD ORDERABLES Final Resul t [facility] [address] [place] [address], documented in this encounter Visit Diagnoses Diagnosis Encounter for other general examination Encounter for adjustment or management of cardiac device documented in this encounter Additional Health Concerns Infection Onset Date Last Indicated Resolved Time 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 05/21/2025 05/21/2025 05/24/2025 7:32 AM E DT Respiratory Rule-Out 05/23/2025 05/23/2025 025 11:46 PM EDT COVID-19 Rule-Out 05/23/2025 05/23/2025 05/23/2025 11:46 PM EDT documented as of this encounter Care Teams Field Rep Relationship Specialty Start Date End Date Diana Corona PA [address] [place] [address] PCP - General Physician Insulation Applicator 04/10/25 documented as of this encounter
--- OUTSIDE RECORDS SUMMARY | 2025-06-26 13:05 | XMS_ITS | Encounter Summary ---
Author Organization [facility] [place] [address] Care Team Providers Care Public Information Officer Name Role Phone Diana Corona Primary Care Provider [phone] Encounter Details Date Type Department Care Team (Late st Contact Info) Description 04/21/2025 Lab Requisition [facility] - Main Lab [address] [facility] [place] [address] Frances Meléndez PA [address] [place] [address] Encounter for other general examination [...] AM EDT Office Visit Vascular Surgery - [place] [address] [place] [address] Andie Chua PA [address] [place] [address] 06/06/2026 1:30 PM EDT Ancillary Procedure [facility] - [facility] [address] [facility] [address] [place] [address] documented as of this encounter Procedures Procedure Name Priority Date/Time Associated Diagnosis Comments IRON AND TIBC Routine 04/21/2025 5:38 AM EDT Encounter for other general examination documented in this encounter Results * (ABNORMAL) Iron and TIBC (04/21/2025 5:38 AM EDT) Iron 75 50 - 160 mcg/dL LAB CHEMISTRY METHOD 04/21/2025 11:[address] [facility] TIBC 385 250 - 450 mcg/dL LAB CHEMISTRY METHOD 04/21/2025 11:[address] [facility] Iron Saturation 19(L) 20 - 50 % LAB CHEMISTRY METHOD 04/21/2025 11:[address] [facility] Blood Venous blood specimen / Unknown Venipuncture / Unknown 04/21/2025 5:38 AM EDT 04/21/2025 9:48 AM EDT us Frances CHACON LAB BLOOD ORDERABLES Final Resul t [facility] [address] [place] [address], documented in this encounter Visit Diagnoses Diagnosis [...] documented as of this encounter Care Teams Public Information Officer Relationship Specialty Start Date End Date Diana Corona PA [address] [place] [address] PCP - General Physician Broomcorn Seeder 04/10/25 documented as of this encounter
--- OUTSIDE RECORDS SUMMARY | 2025-06-26 13:05 | XMS_ITS | Encounter Summary ---
Author Organization [facility] [place] [address] Care Team Providers Care Visual Merchandising Director Name Role Phone Diana Corona Primary Care Provider [phone] Encounter Details Date Type Department Care Team (Late st Contact Info) Description 04/15/[address] [facility] - Main Lab [address] [facility] [place] [address] Frances Meléndez PA [address] [place] [address] Encounter for other general examination [...] AM EDT Office Visit Vascular Surgery - [place] [address] [place] [address] Andie Chua PA [address] [place] [address] 06/06/2026 1:30 PM EDT Ancillary Procedure [facility] - [facility] [address] [facility] [address] [place] [address] documented as of this encounter Procedures Procedure [...] CBC auto differential (04/15/2025 6:42 AM EDT) [facility] WBC 8.2 4.8 - 10.8 K/mcL LAB HEMETOLOGY METHOD 04/15/2025 12:46 PM EDT [facility] RBC 2.20(L) 4.50 - 5.50 M/mcL LAB HEMETOLOGY METHOD 04/15/2025 12:46 PM EDT [facility] Hemoglobin 7.3(L) 13.5 - 17.5 g/dL LAB HEMETOLOGY METHOD 04/15/2025 12:46 PM T [facility] Hematocrit 23.7(L) 42.0 - 54.0 % LAB HEMETOLOGY METHOD 04/15/2025 12:46 PM [facility] MCV 106.3(H) 79.0 - 98.0 FL LAB HEMETOLOGY METHOD 04/15/2025 12:46 PM EDT [facility] MCH 32.7(H) 27.0 - 32.0 pcg LAB HEMETOLOGY METHOD 04/15/2025 12:46 PM [facility] MCHC 30.8(L) 32.0 - 37.0 g/dL LAB HEMETOLOGY METHOD 04/15/2025 12:46 PM [facility] RDW 15.9(H) 11.0 - 15.0 % LAB HEMETOLOGY METHOD 04/15/2025 12:46 PM [facility] Platelets 180 130 - 400 K/mcL LAB HEMETOLOGY METHOD 04/15/2025 12:46 PM [facility] MPV 10.6 7.0 - 11.0 FL LAB HEMETOLOGY METHOD 04/15/2025 12:46 PM [facility] NRBC 0.0 <1.0 % LAB HEMETOLOGY METHOD 04/15/2025 12:46 PM [facility] NRBC Absolute 0.00 <0.10 K/mcL LAB HEMETOLOGY METHOD 04/15/2025 12:46 PM [facility] Neutrophils Relative 65.3 % LAB HEMETOLOGY METHOD 04/15/2025 12:46 PM [facility] Lymphocytes Relative 17.8 % LAB HEMETOLOGY METHOD 04/15/2025 12:46 PM [facility] Monocytes Relative 11.4 % LAB HEMETOLOGY METHOD 04/15/2025 12:46 PM [facility] Eosinophils Relative 4.5 % LAB HEMETOLOGY METHOD 04/15/2025 12:46 PM [facility] Basophils Relative 0.5 % LAB HEMETOLOGY METHOD 04/15/2025 12:46 PM [facility] Immature Granulocytes Relative 0.5 % LAB HEMETOLOGY METHOD 04/15/2025 12:46 PM [facility] Neutrophils Absolute 5.35 1.50 - 7.00 K/mcL LAB HEMETOLOGY METHOD 04/15/2025 12:46 PM [facility] Lymphocytes Absolute 1.46 1.00 - 5.00 K/mcL LAB HEMETOLOGY METHOD 04/15/2025 12:46 PM [facility] Monocytes Absolute 0.93 0.20 - 1.00 K/mcL LAB HEMETOLOGY METHOD 04/15/2025 12:46 PM EDT [facility] Eosinophils Absolute 0.37 0.00 - 0.50 K/mcL LAB HEMETOLOGY METHOD 04/15/2025 12:46 PM EDT [facility] Basophils Absolute 0.04 0.00 - 0.20 K/[facility] LAB HEMETOLOGY METHOD 04/15/2025 12:46 PM EDT [facility] Immature Granulocytes Absolute 0.04(H) 0.00 - 0.03 K/[facility] LAB HEMETOLOGY METHOD 04/15/2025 12:46 PM EDT [facility] Blood Venous blood specimen / Unknown Venipuncture / Unknown 04/15/2025 6:42 AM EDT 04/15/2025 12:05 PM EDT us Frances CHACON LAB BLOOD ORDERABLES Final Resul t Performing Organization Address City/[facility]/ZIP Co de Phone Number [facility] [address] [place] [address], [place] [phone] * Magnesium (04/15/2025 6:42 AM EDT) Pathologist [facility] Magnesium 2.2 1.9 - 2.6 mg/dL LAB CHEMISTRY METHOD 04/15/2025 1:13 PM EDT [facility] Blood Venous blood specimen / Unknown Venipuncture / Unknown 04/15/2025 6:42 AM EDT 04/15/2025 12:05 PM EDT us Frances CHACON LAB BLOOD ORDERABLES Final Resul t [facility] [address] [place] [address], [place] [phone] * (ABNORMAL) Comprehensive metabolic panel (04/15/2025 6:42 AM EDT) Sodium 138 133 - 145 mmol/L LAB CHEMISTRY METHOD 04/15/2025 1:24 PM [facility] Potassium 4.2 3.5 - 5.5 mmol/L LAB CHEMISTRY METHOD 04/15/2025 1:24 PM [facility] Chloride 107 96 - 110 mmol/L LAB CHEMISTRY METHOD 04/15/2025 1:24 PM [facility] CO2 26 21 - 32 mmol/L LAB CHEMISTRY METHOD 04/15/2025 1:24 PM [facility] Anion Gap 5 3 - 11 LAB CHEMISTRY METHOD 04/15/2025 1:24 PM [facility] Glucose 115(H) 70 - 100 mg/dL LAB CHEMISTRY METHOD 04/15/2025 1:24 PM [facility] BUN 28(H) 5 - 25 mg/dL LAB CHEMISTRY METHOD 04/15/2025 1:24 PM [facility] Creatinine 1.49(H) 0.70 - 1.30 mg/dL LAB CHEMISTRY METHOD 04/15/2025 1:24 PM [facility] eGFR 46(L) >=60 mL/min/1. 73m2 LAB CHEMISTRY METHOD 04/15/2025 1:24 PM [facility] Comment:Calculation based on the Chronic Kidney Disease Epidemiology Collaboration (CKD-EPI) equation refit without adjustment for race. BUN/Creatinine Ratio 18.8 LAB CHEMISTRY METHOD 04/15/2025 1:24 PM [facility] Calcium 8.6 8.5 - 10.5 mg/dL LAB CHEMISTRY METHOD 04/15/2025 1:24 PM [facility] AST (SGOT) 60(H) 10 - 42 unit/L LAB CHEMISTRY METHOD 04/15/2025 1:24 PM [facility] Comment:Results verified by repeat testing ALT (SGPT) 23 10 - 60 unit/L LAB CHEMISTRY METHOD 04/15/2025 1:24 PM [facility] Alkaline Phosphatase 41(L) 42 - 121 unit/L LAB CHEMISTRY METHOD 04/15/2025 1:24 PM EDT [facility] Total Protein 5.9(L) 6.0 - 8.0 g/dL LAB CHEMISTRY METHOD 04/15/2025 1:24 PM EDT [facility] Albumin 2.8(L) 3.2 - 5.0 g/dL LAB CHEMISTRY METHOD 04/15/2025 1:24 PM EDT [facility] Total Bilirubin 0.6 0.0 - 1.4 mg/dL LAB CHEMISTRY METHOD 04/15/2025 1:24 PM EDT [facility] Blood Venous blood specimen / Unknown Venipuncture / Unknown 04/15/2025 6:42 AM EDT 04/15/2025 12:05 PM EDT us Frances CHACON LAB BLOOD ORDERABLES Final Resul t [facility] [address] [place] [address], documented in this encounter Visit Diagnoses Diagnosis [...] documented as of this encounter Care Teams Visual Merchandising Director Relationship Specialty Start Date End Date Diana Corona PA [address] [place] [id number] PCP - General Physician Director Power 04/10/25 documented as of this encounter
--- OUTSIDE RECORDS SUMMARY | 2025-06-26 13:05 | XMS_ITS | Clinical Summary ---
Author Organization [address] [facility] Address [address] [place] [address] Phone Care Team Providers Care Builder Operator Name Role Phone Diana Corona Primary Care Provider [phone] Allergies Active Allergy Reactions Criticality Noted Date Comments Iodinated Contrast Media Rash High 08/29/2024 Rash / dermatitis SWELLING Sulfa (Sulfonamide Antibiotics) Rash High 08/29/2024 Rash/dermatitis Sulfamethoxazole-Trimethopri m Rash High 08/29/2024 Tetracyclines Rash High 12/18/2020 Medications aspirin 81 mg chewable tablet Chew 1 tablet (81 mg total) 1 (one) time each day. 09/18/20 19 Active cyanocobalamin (VITAMIN B-12) 500 mcg tablet Take by mouth. 1000mg daily Active lansoprazole (PREVACID) [address] capsule Take 1 capsule (30 mg total) by mouth 1 (one) time each day. 01/01/20 21 Active nitroglycerin (NITROSTAT) 0.[address] 0.4 mg under the tongue every 5 minutes as needed. Active BD Ev 2nd Gen Pen Needle 32 gauge x 5/32 needle USE DIRECTED TO INJECT INSULIN 02/27/20 24 Active flash glucose sensor kit USE DIRECTED EVERY 14 DAYS Active atorvastatin (LIPITOR) 80 mg tablet Take 1 tablet (80 mg total) by mouth at bedtime. 11/18/20 22 Active atenoloL (TENORMIN) 50 mg tablet Take 1 tablet (50 mg total) by mouth at bedtime. 08/05/20 Active glucose sensor,implant- dexamet device 1 Product by Does not apply route every 14 days. 03/28/20 24 Active pen needle, diabetic (BD Ultra-Fine Micro Pen Needle) 32 gauge x 1/4 needle DIRECTED TWICE DAILY 08/20/20 Active furosemide (LASIX) 20 mg tablet Take 1 tablet (20 mg total) by mouth 1 (one) time each day. 09/21/20 Active flash glucose scanning reader (FreeStyle Vivek 2 [place]) misc 1 Product by Does not apply route every 14 days 12/04/19 23 Active Nucynta ER 50 mg 12 hr [...] pain or moderate pain. 40 tablet 01/20/20 Active Additional Information Patient not taking.Reported on 06/19/2025 senna-docusate (PERICOLACE) 8.6-50 mg per tablet Take 2 tablets by mouth at bedtime. 60 each 11 02/10/202025 Active Additional Information Patient not taking.Reported on 06/19/2025 DULoxetine (CYMBALTA) [address] capsule Take 1 capsule (60 mg total) by mouth 1 (one) time each day. 04/24/20 Active gabapentin (NEURONTIN) 300 mg capsule Take 150 mg by mouth at bedtime. Active polyethylene glycol (MIRALAX) 17 gram packet Take 17 g by mouth 1 (one) time each day. Active Ozempic 2 mg/dose (8 mg/3 mL) injection pen Inject 2 mg under the skin every 7 (seven) days. WEDNESDAY Active insulin degludec (Tresiba FlexTouch U-200) 200 unit/mL (3 mL) CONCENTRATED injection pen Inject 28 Units under the skin at bedtime as needed (HYPERGLYCEMIA ). Active fenofibrate (TRICOR) 145 mg tablet Take 1 tablet (145 mg total) by mouth 1 (one) time each day. Active linezolid (ZYVOX) 600 mg tablet Take 1 tablet (600 mg total) by mouth 2 (two) times a day for 10 days. 20 each 06/24/20 25 2024 Active oxyCODONE (ROXICODONE) 5 mg immediate release tabletIndicatio ns:Amputation stump infection ([facility] V24, [facility] V28) Take 2 tablets (10 mg total) by mouth every 6 (six) hours if needed for severe pain. 10mg every 6 hours for severe pain as needed, in couple days, reduce to 5mg every 6 hours as needed for pain. Max Daily Amount: 40 mg 06/24/20 Active Ozempic 1 mg/dose (4 mg/3 mL) injection pen Inject 1 mg under the skin every 7 (seven) days. 10/13/19 25 2024 Discontinued(A lternate therapy) levoFLOXacin (LEVAQUIN) 500 mg tablet Take 1 tablet (500 mg total) by mouth 1 (one) time each day for 7 days. 7 each 05/26/20 25 2024 oxyCODONE (ROXICODONE) 5 mg immediate release tablet Take 1 tablet (5 mg total) by mouth every 6 (six) hours if needed for severe pain for up to 3 days. Max Daily Amount: 20 mg 12 tablet 05/26/20 25 2024 collagenase (SantyL) 250 unit/gram ointment Apply topically 1 (one) time each day. Apply nickel thickness layer to right knee wound daily 90 g 2 06/06/20 25 2024 Discontinued(S top Taking at Discharge) oxyCODONE (ROXICODONE) 5 mg immediate release tablet Take 1 tablet (5 mg total) by mouth every 8 (eight) hours if needed. for pain Max Daily Amount: 15 mg 2024 Discontinued Active Problems Problem Noted Date Diagnosed Date Non-healing wound of amputat ion stump ([facility] V24, [facility] V28) 06/19/2025 Amputation stump infection ([facility] V24, [facility] V28) 05/21/2025 Anemia 04/11/2025 Chronic renal insufficiency 04/11/2025 Pacemaker 04/11/2025 Chronic obstructive pulmonar y disease ([facility] V24, [facility] V28) 04/11/2025 Gangrene of toe of right foot ([facility] V24, [facility] V28) 02/05/2025 Occlusion of arterial bypass graft ([facility] V24) 10/26/2024 Acute deep vein thrombosis ( DVT) of femoral vein of right lower extremity ([facility] V24, [facility] V28) 10/26/2024 Diabetic neuritis ([facility] V24, [facility] V28) Hypertension 08/29/2024 Lumbar spondylosis 09/22/2022 Overview (08/29/2024): Last Assessment & Plan: Mr. Omalley underwent bilateral radiofrequency ablation on 10/08/2022 at [facility] with some improvement lasting 1 month. [...] pneumonia 04/21/2022 CHF (congestive heart failure) ([facility] V24, [facility] V28) 04/21/2022 Gastrointestinal hemorrhage 04/21/2022 Neuropathy 04/21/2022 SSS (sick sinus syndrome) ([facility] V24, [facility] V28) 04/21/2022 Overview (08/29/2024): Last Assessment & Plan: This is been stable. He is status post pacemaker generator replacement as he was end-of-life. This is working well. He is feeling better now that his heart rates are in the higher range. Acute hypoxemic respiratory failure ([facility] V24, [facility] V28) 04/21/2022 Heart block AV complete ([facility] V24, [facility] V2 8) 04/01/2022 AAA (abdominal aortic aneurysm) ([facility] V24) Overview (08/29/2024): Last Assessment & Plan: He had a repeat echo done recently. This showed no changes when compared to before. He has been followed by vascular surgery. Malignant neoplasm of right vocal cord ([facility] V24, [facility] V28) 11/06/2020 Chronic kidney disease (CKD) stage G3b/A1, moderately decreased glomerular filtration rate (GFR) between 30-44 mL/min/1.73 square meter and albuminuria creatinine ratio les* ([facility] V24, [facility] V28) 11/06/2020 Anxiety 08/09/2020 BPH (benign prostatic hyperplasia) 08/09/2020 Coronary artery disease invo lving [place] [facility] without angina pectoris 08/09/2020 Overview (08/29/2024): [...] lifestyle choices and diet. Peripheral vascular disease ([facility] V24) 2019 Overview (08/29/2024): Last Assessment & Plan: This is stable. Again this is being followed by Dr. Banks. He states that he will be getting a lower extremity arterial study done in the next couple weeks. ST elevation myocardial infa rction (STEMI) ([facility] V24, [facility] V28) 08/09/2020 Overview (08/29/2024): Last Assessment [...] and exercise. 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 ([facility] V24, [facility] V28) 08/09/2020 Type 2 diabetes mellitus wit h renal manifestations ([facility] V[facility], [facility] V28) 08/09/2020 Resolved Problems Problem Noted Date Diagnosed Date Resolved Date Ischemic leg 01/08/2025 04/13/2025 Critical limb ischemia of ri ght lower extremity ([facility] V24, [facility] V28) 01/08/2025 Epistaxis 10/28/2024 10/28/2024 Encounters Date Type Department Care Team Description 06/23/2025 8:22 AM EDT Anesthesia Event [facility] OR [address] [place] [phone] Sergio Cadet MD 06/23/2025 8:00 AM EDT - 06/23/2025 9:15 AM EDT Surgery [facility] OR [address] [place] [phone] Ahmet Banks MD DEBRIDEMENT BK AMP APPLICATION OF WOUND VAC 06/20/2025 2:07 PM EDT Anesthesia Event [facility] OR [address] [place] [phone] Bharathi Maguire DO 06/20/2025 1:00 PM EDT - 06/20/2025 2:30 PM EDT Surgery [facility] OR [address] [place] [phone] Ahmet Banks MD RIGHT BKA WOUND DEBRIDEMENT, WASHOUT, VAC PLACEMENT 06/19/2025 2:22 PM EDT - 06/24/2025 2:10 PM EDT Hospital Encounter [facility] [address] [place] [phone] Irving Lebron MD Wyman, Tim, MD Kokosadze, Estate, MD Non-healing wound of amputation stump ([facility] V24, [facility] V28) (Primary Dx); Amputation stump infection ([facility] V[facility], [facility] V28) Discharge Disposition: Home-Health Care [facility] [place] 06/15/2025 9:30 AM EDT Office Visit [facility] [place] [address] [place] [phone] Ahmet Banks MD S/P BKA (below knee amputation) unilateral, right (CMS/HCC V24, CMS/HCC V28) (Primary Dx) 06/06/2025 2:00 PM EDT Ancillary Procedure [facility] [address] [facility] [address] [place] [phone] Encounter for adjustment or management of cardiac device 06/06/2025 1:00 PM EDT Office Visit Vascular Surgery [address] [phone] Mary Lou Barragan PA S/P BKA (below knee amputation) unilateral, right (CMS/HCC V24, CMS/HCC V28) (Primary Dx) 06/05/2025 Telephone Vascular Surgery [address] [phone] Ahmet Banks MD 05/28/2025 Telephone Vascular Surgery [address] [phone] Andie Chua PA 05/23/2025 5:24 PM EDT - 05/26/2025 1:08 PM EDT Hospital Encounter [facility] [address] [place] [phone] Genaro Sinclair MD Jones, Christopher, MD Alam, Aroosa, MD Amputation stump infection ([facility] V24, [facility] V28) (Primary Dx); Gangrene of toe of right foot ([facility] V24, CMS/HCC V28) Discharge Disposition: Home-Health Care [facility] 05/23/2025 Telephone Vascular Surgery [address] [phone] Andie Chua PA 05/22/2025 11:15 AM EDT Ancillary Procedure [facility] [address] [facility] [address] [place] [phone] 05/21/2025 5:32 PM EDT - 05/22/2025 2:08 PM EDT Hospital Encounter [facility] [address] [place] [phone] Nahid Dumas MD Jones, Christopher, MD Kela, Kashyap Devendrabhai, MD Cellulitis, unspecified cellulitis site (Primary Dx) Discharge Disposition: Home or Self Care 05/21/2025 Telephone [facility] [address] [place] [phone] Divine Sawyre 05/21/2025 Telephone Vascular Surgery - [place] [address] [place] [phone] Andie Chua PA 05/10/2025 10:30 AM EDT Office Visit [facility] - [place] [address] [place] [phone] Kinsey Boykin MD PAD (peripheral artery disease) ([facility] V24) (Primary Dx); S/P BKA (below knee amputation) unilateral, right ([facility] V24, [facility] V28) 04/24/2025 Lab Requisition [facility] [address] [place] [phone] Reyna Ford PA Unspecified atrial fibrillation ([facility] V24, [facility] V28) 04/23/2025 Lab Requisition [facility] [address] [place] [phone] Rikki Rosen PA Encounter for other general examination 04/22/2025 Lab Requisition [facility] [address] [place] [phone] Frances Meléndez PA Encounter for other general examination 04/21/2025 Lab Requisition [facility] [address] [place] [phone] Frances Meléndez PA Encounter for other general examination 04/19/2025 Lab Requisition [facility] [address] [place] [phone] Rikki Rosen PA Encounter for other general examination 04/16/2025 Lab Requisition [facility] [address] [place] [phone] Rikki Rosen PA Encounter for other general examination 04/15/2025 Lab Requisition [facility] [address] [place] [phone] Frances Meléndez PA Encounter for other general examination 04/11/2025 3:36 PM EDT Anesthesia Event [facility] OR [address] [place] [phone] Nathan Lucio DO Kriz, Petra, MD 04/11/2025 3:35 PM EDT - 04/11/2025 5:05 PM EDT Surgery [facility] OR [address] [place] [phone] Ahmet Banks MD RIGHT BELOW KNEE AMPUTATION 04/10/2025 12:30 PM EDT - 04/14/2025 1:09 PM EDT Hospital Encounter [facility] [address] [place] [phone] Ju Valdez MD Kokosadze, Estate, MD Swelling (Primary Dx); Femoral-popliteal bypass graft occlusion, initial encounter ([facility] V24); 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 ([facility] V24, [facility] V28); Ischemic leg Discharge Disposition: [facility] Facility 04/10/2025 11:30 AM EDT Office Visit Vascular Surgery [facility] [address] [place] [phone] Andie Chua PA PAD (peripheral artery disease) ([facility] V24) (Primary Dx); Infrarenal abdominal aortic aneurysm (AAA) without rupture ([facility] V24); History of amputation of fourth toe ([facility] V24[facility] Critical limb ischemia of right lower extremity ([facility] V24, [facility] V28) 04/10/2025 Telephone Vascular Surgery - [address] [place] [phone] Andie Chua PA from Last 3 Months [...] Site/Laterality Comments KNEE ARTHROSCOPY 2009 Right PROCEDURE: AR ARTHROSCOPY KNEE DIAGNOSTIC W/WO SYNOVIAL BX SPX; COMMENT: Meniscus TURP / TRANSURETHRAL INCISIO N / DRAINAGE PROSTATE 2004 PROCEDURE: HISTORICAL TURP OTHER SURGICAL HISTORY PROCEDURE: AR DUP-SCAN LXTR ART/ARTL BPGS UNI/LMTD STUDY; COMMENT: Angioplasty and stenting of the left leg PACEMAKER IMPLANT PROCEDURE: HISTORICAL PACEMAKER COLONOSCOPY 2011 PROCEDURE: HISTORICAL COLONOSCOPY OTHER SURGICAL HISTORY PROCEDURE: AR BIOPSY OROPHARYNX; COMMENT: Throat cancer had radiation x6 weeks [facility] EYE SURGERY PROCEDURE: HISTORICAL EYE SURGERY; COMMENT: [place] TONSILLECTOMY PROCEDURE: HISTORICAL TONSILLECTOMY OTHER SURGICAL HISTORY PROCEDURE: ---- HEMORRHOIDS ---- HERNIA REPAIR Bilateral PROCEDURE: REPAIR INGUINAL HERNIA CORONARY ARTERY BYPASS GRAFT 1996 PROCEDURE: HISTORICAL CABG; COMMENT: x4 NECK SURGERY PROCEDURE: HISTORICAL NECK SURGERY CARPAL TUNNEL RELEASE Right PROCEDURE: AR NEUROPLASTY &/TRANSPOS MEDIAN NRV CARPAL TUNNE; COMMENT: dr. cazares BACK SURGERY 10/08/2022 Bilateral PROCEDURE: HISTORICAL BACK SURGERY; COMMENT: Bilateral L3, L4 and L5 radiofrequency neurotomy Dr. Sahu OTHER SURGICAL HISTORY 06/15/2023 PROCEDURE: AR SLCTV CATHJ 3RD+ ORD SLCTV ABDL PEL/LXTR BRNCH OTHER SURGICAL HISTORY 06/15/2023 PROCEDURE: AR SLCTV CATHJ EA 2ND+ ORD ABDL PEL/LXTR ART BRNCH OTHER SURGICAL HISTORY 06/15/2023 PROCEDURE: X-RAY EXAM OF ARM/LEG ARTERY OTHER SURGICAL HISTORY 06/15/2023 PROCEDURE: ULTRASOUND GUIDANCE FOR VASCULAR AC OTHER SURGICAL HISTORY 06/01/2024 PROCEDURE: AR EVASC RPR DPLMNT KCFTU-JI-SODSI NDGFT OTHER SURGICAL HISTORY 06/01/2024 PROCEDURE: AR OPN ILIAC ART EXPOS PROSTH/ILIAC OCCLS EVASC UNI OTHER SURGICAL HISTORY 06/01/2024 PROCEDURE: AR PERQ ACCESS & CLOSURE FEM ART FOR DELIVERY NDGFT OTHER SURGICAL HISTORY 06/01/2024 PROCEDURE: AR REVASC INTRAVASC LITHOTRIPSY OTHER SURGICAL HISTORY 06/28/2024 Left PROCEDURE: AR BYP OTH/THN VEIN FEM-ANT TIBL PST TIBL/PRONEAL Medical History Medical History Date Comments 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 ([facility] V[facility], [facility] V28) 08/09/2020 DX:Type 2 diabetes mellitus with neurological manifestation ([facility]) CKD (chronic kidney disease) stage 3, GFR 30-59 ml/min ([facility] V[facility], [facility] V28) 11/06/2020 DX:CKD (chronic kidney disea se) stage 3, GFR 30-59 ml/min ([facility]) Type 2 diabetes mellitus wit h renal manifestations ([facility] V[facility], [facility] V28) 08/09/2020 DX:Type 2 diabetes mellitus with renal manifestations ([facility]) CAD (coronary artery disease) 08/09/2020 DX :CAD (coronary artery disease); COMMENT: Multiple stenting procedures x 5. Pacemaker 08/09/2020 DX:Pacemaker ST elevation myocardial infa rction (STEMI) ([facility] V[facility], [facility] V28) 08/09/2020 DX:ST elevation hesham cardial infarction (STEMI) ([facility]) Throat cancer ([facility] V[facility], [facility] V28) 08/09/2020 DX:Throat cancer ([facility]); COMM ENT: 2020: received RT Hyperlipidemia 08/09/2020 DX:Hyperlipidemi a HTN (hypertension) 08/09/2020 DX:HTN (hyper tension) History of diverticulitis 08/09/2020 DX:His tory of diverticulitis Peripheral vascular disease ([facility] V24) 08/09/2020 DX:Peripheral vascular disea se ([facility]) Diabetic neuritis ([facility] V 24, [facility] V28) 08/09/2020 DX:Diabetic neuritis ([facility]) Gastroesophageal reflux dise ase without esophagitis 08/09/2020 DX:Gastroesophageal reflux d isease without esophagitis Anxiety 08/09/2020 DX:Anxiety 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 V24, CMS/HCC V28) 11/06/2020 DX:Malignant neoplasm of ri ght [...] Mass Index 27.4 06/19/2025 11:07 AM EDT Plan of Treatment Upcoming Encounters Date Type Department Care Team (Late st Contact Info) Description 07/20/2025 10:00 AM EDT Office Visit Vascular Surgery - [place] [address] [place] [phone] Andie Chua PA [address] [place] [address] 06/06/2026 1:30 PM EDT Ancillary Procedure [facility] [address] [facility] [address] [place] [phone] Health Maintenance Due Date Last Done Comments Diabetes: Annual Retina Eye Exam 1950 Diabetes: Annual Foot Exam 09/07/2024 09/07/2023 Diabetes: Annual Urine Albumin-Creatinine Ratio (uACR) 09/08/2024 09/08/2023 Diabetes: Blood Sugar Control Test (HGBA1C) 09/21/2024 03/22/2024, 03/22/2024 Depression Screening 10/04/2024 Medicare Annual Wellness Visit 02/16/2025 02/17/2024 COVID-19 Vaccine ( season) 2025 07/10/2022, 05/20/2021, 12/02/2020, Additional history exists Influenza Vaccine (#1) 2025 , 06/29/2023, 07/03/2022, Additional history exists Social Influencers of Health Screening 06/21/2026 06/21/2025 Diabetes: Annual GFR (Glomerular Filtration Rate) 06/23/2026 06/23/2025, 06/21/2025, 06/20/2025, Additional history exists Hypertension/CHF/CAD Annual BMP Blood Test 06/23/2026 06/23/2025, 06/21/2025, 06/20/2025, Additional history exists Falls Risk Assessment 06/24/2026 06/24/2025 Cholesterol Screening (Lipid Panel) 09/08/2028 09/08/2023 DTaP,Tdap,and [...] this topic Medical Devices Implanted Type Area [employer] Device Identifier Shelf Expiration Date Model / Serial / Lot Medt-Card Kendell Xt Dr Artis [id number] Implanted: (Quantity not on file) Cardiac Pacemaker [employer] - CARDIAC RHYTH-CRDM KENDELL XT DR ARTIS [id number] / [id number] / Medt-Card Kendell Xt Dr Artis [id number] Implanted: (Quantity not on file) Cardiac Pacemaker [employer] - CARDIAC RHYTH-CRDM KENDELL XT DR ARTIS / [id number] / Hemostat Absorb Surgicel 2x4in Fibrillar - Sn/A - [id number] Implanted:Qty : 1 on 01/17/2025 by Ahmet Banks MD at [facility] Hemostasis Right: Leg [employer] 07/03/2027 1962 / N/A / [id number] Sealant Fibrin Vistaseal 4ml - [id number] - [id number] Implanted:Qty : 1 on 01/17/2025 by Ahmet Banks MD at [facility] Hemostasis Right: Leg [employer] [id number] 07/18/2026 VS04 / [id number] / [id number] Hemostat Absorb 1x2 Surgicel Fibrillar - Sn/A - [id number] Implanted:Qty : 1 on 02/07/2025 by Ahmet Banks MD at [facility] Hemostasis Right: Foot [employer] 07/03/2026 1961 / N/A / [id number] Vein Saphns 50-59cm A B Ab O Blood Type - [id number] - [id number] Implanted:Qty : 1 on 01/17/2025 by Ahmet Banks MD at [facility] [employer] Right: Leg [employer] 04/05/2029 [id number] / [id number] Patch Biol Xenosure .8x8cm - Sn/A - [id number] Implanted:Qty : 1 on 01/17/2025 by Ahmet Banks MD at [facility] Vascular Grafts Right: Leg [employer] 12/29/2029 E0.8P8 / N/A / [id number] Procedures Procedure Name Priority Date/Time Associated Diagnosis Comments POC GLUCOSE Routine 06/24/2025 11:52 AM EDT POC GLUCOSE Routine 06/24/2025 7:22 AM EDT POC GLUCOSE Routine 06/23/2025 4:24 PM EDT POC GLUCOSE Routine 06/23/2025 11:20 AM EDT POCT GLUCOSE BLOOD Routine 06/23/2025 9: 33 AM EDT OXYGEN THERAPY, ADULT Routine 06/23/2025 9:21 AM EDT INCISION DRAINAGE EXTREMITY LOWER 06/23/2025 8:22 AM EDT LAVENDER - EDTA Routine 06/23/2025 7:25 AM EDT SST - GOLD Routine 06/23/2025 7:25 AM EDT EXTRA TUBES Routine 06/23/2025 7:25 AM EDT TROPONIN I HIGH SENSITIVITY Timed 06/23/2025 7:25 AM EDT CBC WITH AUTO [...] AUTO DIFFERENTIAL Routine 06/21/2025 5:27 AM EDT BASIC METABOLIC PANEL Routine 06/21/2025 5:27 AM EDT CBC AND DIFFERENTIAL Routine 06/21/2025 5:27 AM EDT POCT GLUCOSE BLOOD Routine 06/20/2025 7: 33 PM EDT POCT GLUCOSE BLOOD Routine 06/20/2025 5: 27 PM EDT OXYGEN THERAPY, ADULT Routine 06/20/2025 2:58 PM EDT TH AN ENDOTRACHEAL(NO CHARGE) Routine 06/20/2025 2:33 PM EDT AMPUTATION BELOW KNEE 06/20/2025 2:07 PM EDT Non-healing wound of amputation stump (CMS/HCC V24, CMS/HCC V28) VANCOMYCIN, RANDOM Routine 06/20/2025 9: 50 AM EDT COMPLETE BLOOD COUNT Timed 06/20/2025 6:12 AM EDT BASIC METABOLIC PANEL Routine 06/20/2025 6:12 AM EDT POCT GLUCOSE BLOOD Routine 06/19/2025 10 :49 PM EDT C-REACTIVE PROTEIN Add-On 06/19/2025 12 :29 PM EDT CBC WITH AUTO DIFFERENTIAL STAT 06/19/2025 12:29 PM EDT TYPE AND SCREEN STAT 06/19/2025 12:29 PM EDT BASIC METABOLIC PANEL STAT 06/19/2025 12:29 PM EDT CBC AND DIFFERENTIAL STAT 06/19/2025 12:29 PM EDT CARDIAC DEVICE CHECK- [place] [facility] [place] Rout[place] 06/06/2025 1:59 PM EDT Encounter for adjustment or management of cardiac device CBC WITH AUTO DIFFERENTIAL Routine 05/26/2025 6:59 [...] mellitus with peripheral vascular disease (CMS/HCC V24, CMS/HCC V28) TH AN LMA(NO CHARGE) Routine 04/11/2025 3:48 PM EDT AMPUTATION BELOW KNEE 04/11/2025 3:35 PM EDT 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 (CMS/HCC V24, CMS/HCC V28) POCT GLUCOSE BLOOD Routine 04/11/2025 3: [...] 12:31 PM EDT HEMOGLOBIN A1C Routine 03/22/2024 HM URINE ALBUMIN CREATININE RATIO Routine 09/08/2023 LIPID PANEL Routine 09/08/2023 HM DIABETES FOOT EXAM Routine 09/07/2023 from Last 3 Months or Most Recently Relevant to Health Maintenance Results * POC Glucose manually resulted (06/24/2025 11:52 AM EDT) Only the most recent of4 resultswithin the time period is included. Blood Capillary blood specimen / Unknown 06/24/2025 11:52 AM EDT us Kerry Ji MD POINT OF CARE TEST ENTER/ELSA T ORDERABLES Final Result * (ABNORMAL) POCT Glucose, blood (06/23/2025 9:33 AM EDT) Only the most recent of11 resultswithin the time period is included. [facility] Signature Glucose POCT 111(H) 70 - 100 mg/dL 06/23/2025 9:34 AM EDT [facility] Blood Capillary blood specimen / Unknown 06/23/2025 9:33 AM EDT 06/23/2025 9:35 AM EDT us Kerry Ji MD LAB POINT OF CARE TE ST DOCKED DEVICE UNSOLICITED RESULTS Final Result [facility] [address] [place] [address], * Troponin I high sensitivity (06/23/2025 7:25 AM EDT) Only the most recent of2 resultswithin the time period is included. High Sensitivity Troponin I 33 <=79 ng/L LAB CHEMISTRY METHOD 06/23/2025 8:18 AM EDT [facility] Blood Venous blood specimen / Unknown Venipuncture / Unknown 06/23/2025 7:25 AM EDT 06/23/2025 7:31 AM EDT Narrative [facility] - 06/23/2025 8:18 AM EDT High levels of biotin in samples may falsely decrease hsTroponin values. Use caution when interpreting hsTroponin results in patients taking biotin who exhibit renal impairment (eGFR <60) or in patients taking more than 20 mg/day of biotin. us Brisa CHACON LAB BLOOD ORDERABLES Final Re sult Performing Organization Address City/[facility]/ZIP Co de Phone Number [facility] [address] [place] [address], [place] [phone] * SST tube (06/23/2025 7:25 AM EDT) Only the most recent of2 resultswithin the time period is included. Extra Tube Hold for add-ons. 06/23/2025 9:01 AM EDT [facility] Comment:Auto resulted. Blood Venous blood specimen / Unknown 06/23/2025 7:25 AM EDT 06/23/2025 7:32 AM EDT us Kerry Ji MD LAB BLOOD ORDERABLES Final R esult Performing Organization Address [facility] Co de Phone Number [facility] [address] [place] [address], [place] [phone] * Lavender tube (06/23/2025 7:25 AM EDT) Only the most recent of2 resultswithin the time period is included. Extra Tube Hold for add-ons. 06/23/2025 9:01 AM EDT [facility] Comment:Auto resulted. Blood Venous blood specimen / Unknown 06/23/2025 7:25 AM EDT 06/23/2025 7:32 AM EDT us Kerry Ji MD LAB BLOOD ORDERABLES Final R esult Performing Organization Address City/[facility]/ZIP Co de Phone Number [facility] [address] [place] [address], [place] [phone] * (ABNORMAL) CBC auto differential (06/23/2025 6:32 AM EDT) Only the most recent of13 resultswithin the time period is included. [facility] WBC 8.4 4.8 - 10.8 K/mcL LAB HEMETOLOGY METHOD 06/23/2025 7:02 AM [facility] RBC 3.20(L) 4.50 - 5.50 M/mcL LAB HEMETOLOGY METHOD 06/23/2025 7:02 AM [facility] Hemoglobin 10.2(L) 13.5 - 17.5 g/dL LAB HEMETOLOGY METHOD 06/23/2025 7:02 AM [facility] Hematocrit 31.2(L) 42.0 - 54.0 % LAB HEMETOLOGY METHOD 06/23/2025 7:02 AM [facility] MCV 99.0(H) 79.0 - 98.0 FL LAB HEMETOLOGY METHOD 06/23/2025 7:02 AM [facility] MCH 32.4(H) 27.0 - 32.0 pcg LAB HEMETOLOGY METHOD 06/23/2025 7:02 AM [facility] MCHC 32.7 32.0 - 37.0 g/dL LAB HEMETOLOGY METHOD 06/23/2025 7:02 AM [facility] RDW 16.9(H) 11.0 - 15.0 % LAB HEMETOLOGY METHOD 06/23/2025 7:02 AM [facility] Platelets 209 130 - 400 K/mcL LAB HEMETOLOGY METHOD 06/23/2025 7:02 AM [facility] MPV 9.5 7.0 - 11.0 FL LAB HEMETOLOGY METHOD 06/23/2025 7:02 AM [facility] NRBC 0.0 <1.0 % LAB HEMETOLOGY METHOD 06/23/2025 7:02 AM [facility] NRBC Absolute 0.00 <0.10 K/mcL LAB HEMETOLOGY METHOD 06/23/2025 7:02 AM [facility] Neutrophils Relative 60.8 % LAB HEMETOLOGY METHOD 06/23/2025 7:02 AM [facility] Lymphocytes Relative 19.9 % LAB HEMETOLOGY METHOD 06/23/2025 7:02 AM [facility] Monocytes Relative 13.4 % LAB HEMETOLOGY METHOD 06/23/2025 7:02 AM [facility] Eosinophils Relative 5.2 % LAB HEMETOLOGY METHOD 06/23/2025 7:02 AM [facility] Basophils Relative 0.5 % LAB HEMETOLOGY METHOD 06/23/2025 7:02 AM [facility] Immature Granulocytes Relative 0.2 % LAB HEMETOLOGY METHOD 06/23/2025 7:02 AM [facility] Neutrophils Absolute 5.12 1.50 - 7.00 K/mcL LAB HEMETOLOGY METHOD 06/23/2025 7:02 AM [facility] Lymphocytes Absolute 1.68 1.00 - 5.00 K/mcL LAB HEMETOLOGY METHOD 06/23/2025 7:02 AM [facility] Monocytes Absolute 1.13(H) 0.20 - 1.00 K/mcL LAB HEMETOLOGY METHOD 06/23/2025 7:02 AM [facility] Eosinophils Absolute 0.44 0.00 - 0.50 K/mcL LAB HEMETOLOGY METHOD 06/23/2025 7:02 AM [facility] Basophils Absolute 0.04 0.00 - 0.20 K/mcL LAB HEMETOLOGY METHOD 06/23/2025 7:02 AM EDT [facility] Immature Granulocytes Absolute 0.02 0.00 - 0.03 K/mcL LAB HEMETOLOGY METHOD 06/23/2025 7:02 AM EDT [facility] Blood Venous blood specimen / Unknown Venipuncture / Unknown 06/23/2025 6:32 AM EDT 06/23/2025 6:42 AM EDT Kerry Ji MD LAB BLOOD ORDERABLES Final R esult Performing Organization Address City/[facility]/ZIP Co de Phone Number [facility] [address] [place] [address], * Magnesium (06/23/2025 6:31 AM EDT) Only the most recent of2 resultswithin the time period is included. Magnesium 2.0 1.9 - 2.6 mg/dL LAB CHEMISTRY METHOD 06/23/2025 7:14 AM EDT [facility] Blood Venous blood specimen / Unknown Venipuncture / Unknown 06/23/2025 6:31 AM EDT 06/23/2025 6:42 AM EDT Brisa CHACON LAB BLOOD ORDERABLES Final Re sult Performing Organization Address City/[facility]/ZIP Co de Phone Number [facility] [address] [place] [address], [place] [phone] * (ABNORMAL) Basic metabolic panel (06/23/2025 6:31 AM EDT) Only the most recent of12 resultswithin the time period is included. Sodium 140 133 - 145 mmol/L LAB CHEMISTRY METHOD 06/23/2025 7:14 AM EDT [facility] Potassium 3.6 3.5 - 5.5 mmol/L LAB CHEMISTRY METHOD 06/23/2025 7:14 AM EDT [facility] Chloride 108 96 - 110 mmol/L LAB CHEMISTRY METHOD 06/23/2025 7:14 AM [facility] CO2 27 21 - 32 mmol/L LAB CHEMISTRY METHOD 06/23/2025 7:14 AM [facility] Anion Gap 5 3 - 11 LAB CHEMISTRY METHOD 06/23/2025 7:14 AM [facility] Glucose 104(H) 70 - 100 mg/dL LAB CHEMISTRY METHOD 06/23/2025 7:14 AM [facility] BUN 23 5 - 25 mg/dL LAB CHEMISTRY METHOD 06/23/2025 7:14 AM [facility] Creatinine 1.25 0.70 - 1.30 mg/dL LAB CHEMISTRY METHOD 06/23/2025 7:14 AM [facility] eGFR 56(L) >=60 mL/min/1. 73m2 LAB CHEMISTRY METHOD 06/23/2025 7:14 AM [facility] Comment:Calculation based on the Chronic Kidney Disease Epidemiology Collaboration (CKD-EPI) equation refit without adjustment for race. BUN/Creatinine Ratio 18.4 LAB CHEMISTRY METHOD 06/23/2025 7:14 AM [facility] Calcium 9.1 8.5 - 10.5 mg/dL LAB CHEMISTRY METHOD 06/23/2025 7:14 AM [facility] Blood Venous blood specimen / Unknown Venipuncture / Unknown 06/23/2025 6:31 AM EDT 06/23/2025 6:42 AM EDT [facility] [employer] [facility]OLAN LAB BLOOD ORDERABLES Final R esult [facility] [address] [place] [address], * ECG 12 lead (06/23/2025 5:08 AM EDT) Only the most recent of2 resultswithin the time period is included. Ventricular Rate ECG 70 BPM GEMUSE Atrial Rate 70 BPM GEMUSE P-R Interval 256 ms GEMUSE QRS Duration 116 ms GEMUSE Q-T Interval 432 ms GEMUSE QTc 466 ms GEMUSE T [place] -52 degrees GEMUSE ECG Interpretation AV dual-paced rhythm with prolonged AV conduction Abnormal ECG When compared with ECG of 21-MAY-2025 18:41, No significant change was found Confirmed by Brandon FARRELL JAMES ([id number]) on 06/23/2025 10:24:16 PM GEMUSE 06/23/2025 5:08 AM EDT 06/23/2025 10:24 PM EDT us Brisa CHACON ECG ORDERABLES Final Result GEMUSE * Vancomycin, trough Please draw after 1999 but prior to next dose @2100, thank you (06/21/2025 8:04 PM EDT) Only the most recent of2 resultswithin the time period is included. Pathologist [facility] Vancomycin Trough 14.5 10.0 - 20.0 mcg/mL LAB CHEMISTRY METHOD 06/21/2025 9:04 PM EDT [facility] Blood Venous blood specimen / Unknown Venipuncture / Unknown 06/21/2025 8:04 PM EDT 06/21/2025 8:09 PM EDT Andie CHACON LAB BLOOD ORDERABLES Final Res ult [facility] [address] [place] [address], * TH AN ENDOTRACHEAL(NO CHARGE) (06/20/2025 2:33 PM EDT) Narrative Benja Scott, LISA - 06/20/2025 2:33 PM EDT LISA Daniel 06/20/2025 2:35 PM General Information and Staff Patient location during procedure: OR Other anesthesia staff: LISA Daniel Performed: other anesthesia staff Performed by: LISA Daniel Authorized by: Bharathi Maguire DO Intubation Additional Comments Modified RSI Airway not difficult Urgency: elective Final Airway Details Successful airway: ETT Cuffed: yes Successful intubation technique: video laryngoscopy Blade: Velasquez Blade size: #3 ETT size (mm): 7.5 Cormack-Lehane Classification: grade I - full view of glottis Placement verified by: chest auscultation and capnometry Cuff volume (mL): 8 Measured from: lips ETT to lips (cm): 22 Number of attempts at approach: 1Final airway type: endotracheal airway Indications and Patient Condition Indications for airway management: anesthesia Spontaneous ventilation: present Sedation level: Yes Preoxygenated: yes Soft Tissue Damage: No Dentition Unchanged: No Patient position: neutral Mask difficulty assessment: 2 - vent by mask + OA or adjuvant +/- NMBA Bharathi Maguire DO ANESTHESIA ORDERABLES Final Res ult * Vancomycin random (06/20/2025 9:50 AM EDT) [facility] Vancomycin Rm 19.8 mcg/mL LAB CHEMISTRY METHOD 06/20/2025 10:48 AM EDT [facility] Blood Venous blood specimen / Unknown Venipuncture / Unknown 06/20/2025 9:50 AM EDT 06/20/2025 9:56 AM EDT Rashid CHACON LAB BLOOD ORDERABLES Final Resu lt [facility] [address] [place] [address], [place] [phone] * (ABNORMAL) CBC - Every 3 Days (06/20/2025 6:12 AM EDT) Only the most recent of5 resultswithin the time period is included. WBC 7.9 4.8 - 10.8 K/mcL LAB HEMETOLOGY METHOD 06/20/2025 8:08 AM EDT [facility] RBC 3.10(L) 4.50 - 5.50 M/mcL LAB HEMETOLOGY METHOD 06/20/2025 8:08 AM [facility] Hemoglobin 9.8(L) 13.5 - 17.5 g/dL LAB HEMETOLOGY METHOD 06/20/2025 8:08 AM [facility] Hematocrit 31.4(L) 42.0 - 54.0 % LAB HEMETOLOGY METHOD 06/20/2025 8:08 AM [facility] MCV 101.9(H) 79.0 - 98.0 FL LAB HEMETOLOGY METHOD 06/20/2025 8:08 AM [facility] MCH 31.8 27.0 - 32.0 pcg LAB HEMETOLOGY METHOD 06/20/2025 8:08 AM [facility] MCHC 31.2(L) 32.0 - 37.0 g/dL LAB HEMETOLOGY METHOD 06/20/2025 8:08 AM [facility] RDW 17.5(H) 11.0 - 15.0 % LAB HEMETOLOGY METHOD 06/20/2025 8:08 AM [facility] Platelets 194 130 - 400 K/mcL LAB HEMETOLOGY METHOD 06/20/2025 8:08 AM [facility] MPV 9.8 7.0 - 11.0 FL LAB HEMETOLOGY METHOD 06/20/2025 8:08 AM [facility] NRBC 0.0 <1.0 % LAB HEMETOLOGY METHOD 06/20/2025 8:08 AM [facility] NRBC Absolute 0.00 <0.10 K/mcL LAB HEMETOLOGY METHOD 06/20/2025 8:08 AM [facility] Blood Venous blood specimen / Unknown Venipuncture / Unknown 06/20/2025 6:12 AM EDT 06/20/2025 7:52 AM EDT Andie CHACON LAB BLOOD ORDERABLES Final Res ult Performing Organization Address [facility] Co de Phone Number [facility] [address] [place] [address], [place] [phone] * Type and screen (06/19/2025 12:29 PM EDT) Only the most recent of3 resultswithin the time period is included. Pathologist [facility] [employer] O 06/19/2025 2:10 PM EDT [facility] Rh Type Positive 06/19/2025 2:10 PM EDT [facility] Antibody Screen Negative 06/19/2025 2:10 PM EDT [facility] Blood Venous blood specimen / Unknown Venipuncture / Unknown 06/19/2025 12:29 PM EDT 06/19/2025 1:28 PM EDT Naveen Dickinson MD LAB BLOOD BANK TEST ORDERABLES F inal Result Performing Organization Address [facility] Co de Phone Number [facility] [address] [place] [address], [place] [phone] * C-reactive protein (06/19/2025 12:29 PM EDT) Only the most recent of3 resultswithin the time period is included. Pathologist [facility] C-Reactive Protein 0.47 <=0.50 mg/dL LAB CHEMISTRY METHOD 06/19/2025 7:28 PM EDT [facility] Blood Venous blood specimen / Unknown Venipuncture / Unknown 06/19/2025 12:29 PM EDT 06/19/2025 1:28 PM EDT Rashid CHACON LAB BLOOD ORDERABLES Final Resu lt Performing Organization Address City/[facility]/ZIP Co de Phone Number [facility] [address] [place] [address], * [place] [facility] [place]06/06/2025 1:59 PM EDT) Date Time Interrogation Session [id number] CV DEVICE CHECK Implantable Pulse Generator [employer] [place] [employer] MDT CV DEVICE CHECK Implantable Pulse Generator Type IPG CV DEVICE CHECK Implantable Pulse Generator Model [place] XT DR MRI CV DEVICE CHECK Implantable Pulse Generator Serial Number [id number] CV DEVICE CHECK Implantable Pulse Generator Implant Date [id number] CV DEVICE CHECK Battery Status Middle of Service CV DEVICE CHECK Jag Statistic RA Percent Paced 99.20 CV DEVICE CHECK Jag Statistic RV Percent Paced 99.30 CV DEVICE CHECK Atrial Tachy Statistic AT/AF [place] Percent 0.10 CV DEVICE CHECK Lead Channel Sensing Intrinsic Amplitude 2.400 CV DEVICE CHECK Lead Channel Setting Sensing Sensitivity 0.30 CV DEVICE CHECK Lead Channel Impedance Value 361 CV DEVICE CHECK Lead Channel Pacing Threshold Amplitude 0.750 CV DEVICE CHECK Lead Channel Pacing Threshold Pulse Width 0.4 CV DEVICE CHECK Lead Channel RA Pacing Threshold Date 2025-05-31 CV DEVICE CHECK Lead Channel Setting Pacing Amplitude 1.500 CV DEVICE CHECK Lead Channel Setting Pacing Pulse Width 0.4 CV DEVICE CHECK Lead Channel Sensing Intrinsic Amplitude 2.100 CV DEVICE CHECK Lead Channel Setting Sensing Sensitivity 1.20 CV DEVICE CHECK Lead Channel Impedance Value 456 CV DEVICE CHECK Lead Channel Pacing Threshold Amplitude 0.880 CV DEVICE CHECK Lead Channel Pacing Threshold Pulse Width 0.4 CV DEVICE CHECK Lead Channel RV Pacing Threshold Date 2025-06-06 CV DEVICE CHECK Lead Channel Setting Pacing [...] Maximum Sensor Rate 130 CV DEVICE CHECK Zone Setting Type Category AT/AF CV DEVICE CHECK Therapies All Rx Off CV DEVICE CHECK Zone Setting Status Monitor CV DEVICE CHECK Zone ID 2 CV DEVICE CHECK Zone Setting Type Category VT CV DEVICE CHECK Zone Setting Status Monitor CV DEVICE CHECK Zone ID 5 CV DEVICE CHECK Date of Service 2026-05-16 CV DEVICE CHECK Anatomical Region Laterality Modality Device Interroga tion 06/06/2025 Impressions 06/13/2025 8:30 PM EDT Normal In-Office: No Events * Normal Device Function * Alerts or events: None * Battery: MOS, 8.1 years * Sensing, impedance and thresholds reviewed and tested * Presenting Rhythm: AP-CAFE WORKER 70 bpm * No consistent R waves @ VVI 30 bpm today * Heart Rate Histograms reviewed * Pacing and Detection Parameters were evaluated Narrative Procedure Note Katia Proctor MD - 06/13/2025 IMPRESSION: Normal In-Office: No Events * Normal Device Function * Alerts or events: None * Battery: MOS, 8.1 years * Sensing, impedance and thresholds reviewed and tested * Presenting Rhythm: AP-CAFE WORKER 70 bpm * No consistent R waves @ VVI 30 bpm today * Heart Rate Histograms reviewed * Pacing and Detection Parameters were evaluated us Order Referral Cardiovascular CV IMPLANTABLE CAR DIAC DEVICE PROCEDURES Final Result * (ABNORMAL) Comprehensive metabolic panel (05/26/2025 6:59 AM EDT) Only the most recent of4 resultswithin the time period is included. Sodium 141 133 - 145 mmol/L LAB CHEMISTRY METHOD 05/26/2025 8:39 AM [facility] Potassium 4.1 3.5 - 5.5 mmol/L LAB CHEMISTRY METHOD 05/26/2025 8:39 AM [facility] Chloride 111(H) 96 - 110 mmol/L LAB CHEMISTRY METHOD 05/26/2025 8:39 AM [facility] CO2 25 21 - 32 mmol/L LAB CHEMISTRY METHOD 05/26/2025 8:39 AM [facility] Anion Gap 5 3 - 11 LAB CHEMISTRY METHOD 05/26/2025 8:39 AM [facility] Glucose 102(H) 70 - 100 mg/dL LAB CHEMISTRY METHOD 05/26/2025 8:39 AM [facility] BUN 21 5 - 25 mg/dL LAB CHEMISTRY METHOD 05/26/2025 8:39 AM [facility] Creatinine 1.24 0.70 - 1.30 mg/dL LAB CHEMISTRY METHOD 05/26/2025 8:39 AM [facility] eGFR 57(L) >=60 mL/min/1. 73m2 LAB CHEMISTRY METHOD 05/26/2025 8:39 AM [facility] Comment:Calculation based on the Chronic Kidney Disease Epidemiology Collaboration (CKD-EPI) equation refit without adjustment for race. BUN/Creatinine Ratio 16.9 LAB CHEMISTRY METHOD 05/26/2025 8:39 AM [facility] Calcium 8.7 8.5 - 10.5 mg/dL LAB CHEMISTRY METHOD 05/26/2025 8:39 AM [facility] AST (SGOT) 17 10 - 42 unit/L LAB CHEMISTRY METHOD 05/26/2025 8:39 AM [facility] ALT (SGPT) 11 10 - 60 unit/L LAB CHEMISTRY METHOD 05/26/2025 8:39 AM [facility] Alkaline Phosphatase 49 42 - 121 unit/L LAB CHEMISTRY METHOD 05/26/2025 8:39 AM [facility] Total Protein 5.4(L) 6.0 - 8.0 g/dL LAB CHEMISTRY METHOD 05/26/2025 8:39 AM [facility] Albumin 2.6(L) 3.2 - 5.0 g/dL LAB CHEMISTRY METHOD 05/26/2025 8:39 AM [facility] Total Bilirubin 0.3 0.0 - 1.4 mg/dL LAB CHEMISTRY METHOD 05/26/2025 8:39 AM [facility] Blood Venous blood specimen / Unknown Venipuncture / Unknown 05/26/2025 6:59 AM EDT 05/26/2025 7:36 AM EDT us Aditya Dia MD LAB BLOOD ORDERABLES Final Resul t Performing Organization Address [facility]/ZIP Co de Phone Number [facility] [address] [place] [address], * (ABNORMAL) Creatinine serum (05/25/2025 5:11 PM EDT) [facility] Creatinine 1.50(H) 0.70 - 1.30 mg/dL LAB CHEMISTRY METHOD 05/25/2025 5:51 PM EDT [facility] eGFR 45(L) >=60 mL/min/1. 73m2 LAB CHEMISTRY METHOD 05/25/2025 5:51 PM EDT [facility] Comment:Calculation based on the Chronic Kidney Disease Epidemiology Collaboration (CKD-EPI) equation refit without adjustment for race. Blood Venous blood specimen / Unknown Venipuncture / Unknown 05/25/2025 5:11 PM EDT 05/25/2025 5:16 PM EDT Aditya Dia MD LAB BLOOD ORDERABLES Final Resul t Performing Organization Address [facility] Co de Phone Number [facility] [address] [place] [address], * Respiratory virus panel molecular study (05/23/2025 10:23 PM EDT) [facility] Adenovirus Detection by PCR Not Detected Not Detected LAB MICROBIOLOGY METHOD 05/23/2025 11:46 PM EDT [facility] Influenza A PCR Not Detected Not Detected LAB MICROBIOLOGY METHOD 05/23/2025 11:46 PM EDT [facility] Influenza B PCR Not Detected Not Detected LAB MICROBIOLOGY METHOD 05/23/2025 11:46 PM EDT [facility] Coronavirus 229E Not Detected Not Detected LAB MICROBIOLOGY METHOD 05/23/2025 11:46 PM EDT [facility] Coronavirus HKU1 Not Detected Not Detected LAB MICROBIOLOGY METHOD 05/23/2025 11:46 PM EDT [facility] Coronavirus OC43 Not Detected Not Detected LAB MICROBIOLOGY METHOD 05/23/2025 11:46 PM EDT [facility] Coronavirus NL63 Not Detected Not Detected LAB MICROBIOLOGY METHOD 05/23/2025 11:46 PM EDT [facility] Parainfluenza Virus 1 Not Detected Not Detected LAB MICROBIOLOGY METHOD 05/23/2025 11:46 PM EDT [facility] Parainfluenza Virus 2 Not Detected Not Detected LAB MICROBIOLOGY METHOD 05/23/2025 11:46 PM EDT [facility] Parainfluenza Virus 3 Not Detected Not Detected LAB MICROBIOLOGY METHOD 05/23/2025 11:46 PM EDT [facility] Parainfluenza Virus 4 Not Detected Not Detected LAB MICROBIOLOGY METHOD 05/23/2025 11:46 PM EDT [facility] RSV PCR Not Detected Not Detected LAB MICROBIOLOGY METHOD 05/23/2025 11:46 PM EDT [facility] Human Metapneumovirus A and B Not Detected Not Detected LAB MICROBIOLOGY METHOD 05/23/2025 11:46 PM EDT [facility] Rhinovirus/Entero virus Not Detected Not Detected LAB MICROBIOLOGY METHOD 05/23/2025 11:46 PM EDT [facility] Bordetella pertussis Not Detected Not Detected LAB MICROBIOLOGY METHOD 05/23/2025 11:46 PM EDT [facility] Bordetella parapertussis Not Detected Not Detected LAB MICROBIOLOGY METHOD 05/23/2025 11:46 PM EDT [facility] Mycoplasma pneumo by PCR Not Detected Not Detected LAB MICROBIOLOGY METHOD 05/23/2025 11:46 PM EDT [facility] Chlamydia pneumoniae Not Detected Not Detected LAB MICROBIOLOGY METHOD 05/23/2025 11:46 PM EDT [facility] SARS COV-2 Not Detected Not Detected LAB MICROBIOLOGY METHOD 05/23/2025 11:46 PM EDT [facility] Aspirate Nasopharyngeal structure / Unknown Non-blood Collection / Unknown 05/23/2025 10:23 PM EDT 05/23/2025 10:46 PM EDT Narrative [facility] - 05/23/2025 11:46 PM EDT Testing was performed using the [employer] Respiratory Pathogen PCR Assay. All results must [...] that are below the limit of detection. Cezar Chan MD LAB MICROBIOLOGY - GENERAL ORDERABLES Final Result Performing Organization Address [facility]/ZIP Co de Phone Number [facility] [address] [place] [address], [place] [phone] * Blood Culture, Peripheral #1 (05/23/2025 6:06 PM EDT) Only the most recent of4 resultswithin the time period is included. Culture, Blood No growth at 5 days 05/28/2025 7:01 PM EDT [facility] Blood Venous blood specimen / Unknown Venipuncture / Unknown 05/23/2025 6:06 PM EDT 05/23/2025 6:51 PM EDT Genaro Sinclair MD LAB MICROBIOLOGY - GENERA L ORDERABLES Final Result Performing Organization Address City/[facility]/ZIP Co de Phone Number [facility] [facility] [address] [place] [address], [place] [phone] * Lactate, with Reflex (05/23/2025 5:51 PM EDT) LACTIC ACID 1.0 0.4 - 2.0 mmol/L LAB CHEMISTRY METHOD 05/23/2025 7:28 PM EDT [facility] Blood Venous blood specimen / Unknown Venipuncture / Unknown 05/23/2025 5:51 PM EDT 05/23/2025 6:52 PM EDT us Genaro Sinclair MD LAB BLOOD ORDERABLES Rosa Isela l Result BA [facility] LAB [address] [place] [address], * Cardiac device check - Remote- MURJ (05/22/2025 11:13 AM EDT) Date Time Interrogation Session [id number] CV DEVICE CHECK Type Interrogation Session Remote CV DEVICE CHECK Implantable Pulse Generator [employer] [place] MDT CV DEVICE CHECK Implantable Pulse Generator Type IPG CV DEVICE CHECK Implantable Pulse Generator Model Point [place] XT DR MRI [id number] CV DEVICE CHECK Implantable Pulse Generator Serial Number [id number] CV DEVICE CHECK Implantable Pulse Generator Implant Date [id number] CV DEVICE CHECK Battery Remaining Longevity 99.0 CV DEVICE CHECK Battery Voltage 3.000 CV D EVICE CHECK Battery FORGING MACHINE OPERATOR Trigger 2.625 CV DEVICE CHECK Battery Status Middle of Service CV DEVICE CHECK Jag Statistic RA Percent Paced 98.99 CV DEVICE CHECK Jag Statistic RV Percent Paced 99.89 CV DEVICE CHECK Atrial Tachy Statistic AT/AF [place] Percent 0.00 CV DEVICE CHECK Lead Channel [...] rhythm reviewed * Heart Rate Histograms reviewed Viri CHACON CV IMPLANTABLE CARDIAC DEVICE AR OCEDURES Final Result * ECG-Annotated (05/22/2025) Provider Onbase MD ECG ORDERABLES Final Result * (ABNORMAL) MRSA molecular study (05/21/2025 10:47 PM EDT) MRSA Screen PCR Detected (A) Not Detected LAB MICROBIOLOGY METHOD 05/22/2025 12:23 AM EDT [facility] Swab Both anterior nares / Unknown Non-blood Collection / Unknown 05/21/2025 10:47 PM EDT 05/21/2025 11:25 PM EDT us Cezar Chan MD LAB MICROBIOLOGY - GENERAL ORDERABLES Final Result [facility] [address] [place] [address], * CT Lower Extremity wo Contrast Right (05/21/2025 7:43 PM EDT) Anatomical Region Laterality Modality Lower Extremities Right Computed Tomog lupe 05/21/2025 8:12 PM EDT Impressions 05/21/2025 8:12 PM EDT Impression: 1. Status post below-knee amputation. Soft tissue stranding quaji-rny-ugje and at the stump with no loculated fluid collection or soft tissue gas. 2. No acute osseous findings 3. Nonacute findings as described. This document has been electronically signed by: Tanisha Trivedi MD on 05/21/2025 20:12:48 Narrative 05/21/2025 8:12 PM EDT INDICATION: infection R BKA CT right lower extremity without contrast Comparison: None provided Findings: Images were obtained from above the hip to tslod-vkf-ckai level. Status post below-knee amputation. Mild stranding in soft tissues sedtw-bnu-mypl and in the stump. No loculated fluid [...] were obtained from above the hip to rkmwq-uqe-brlu level. Status post below-knee amputation. Mild stranding in soft tissues lzhjc-nqk-wxhi and in the stump. No loculated fluid collection no soft tissue gas. No acute fracture. No dislocation. Mild degenerative changes in the hip. Degenerative changes in the medial tibiofemoral compartment. No erosions. No joint effusion. Atherosclerotic vascular disease. Diverticulosis of the sigmoid colon. IMPRESSION: Impression: 1. Status post below-knee amputation. Soft tissue kdgzygwdydectr-pwq-srbt and at the stump with no loculated fluid collection or soft tissue gas. 2. No acute osseous findings 3. Nonacute findings as described. This document has been electronically signed by: Tanisha Trivedi MD on 05/21/2025 20:12:48 Nahid Dumas MD IMG CT PROCEDURES Final Result * XR Knee 1-2 Views Right (05/21/2025 7:37 PM EDT) Anatomical Region Laterality Modality Lower Extremities, Knee Right [facility] 05/22/2025 8:44 AM EDT Impressions 05/22/2025 8:46 AM EDT Impression: No acute fracture or dislocation identified. Telerad OSWALDO ([id number]) -------- FINAL REPORT -------- Dictated By: Sudha De La Rosa Dictated Date: 05/22/2025 08:44 ET Assigned Physician: Sudha De La Rosa Reviewed and Electronically Signed By: Sudha De La Rosa Signed Date: 05/22/2025 08:46 ET Workstation ID: [id number] Transcribed By: Self Edit Transcribed Date: 05/22/2025 [...] acute fracture or dislocation identified. Telerad OSWALDO ([id number]) -------- FINAL REPORT -------- Dictated By: Sudha De La Rosa Dictated Date: 05/22/2025 08:44 ET Assigned Physician: Sudha De La Rosa Reviewed and Electronically Signed By: Sudha De La Rosa Signed Date: 05/22/2025 08:46 ET Workstation ID: [id number] Transcribed By: Self Edit Transcribed Date: 05/22/2025 08:44 ET us Cezar Chan MD IMG XR PROCEDURES Final Res ult * Lactate (05/21/2025 6:44 PM EDT) Only the most recent of4 resultswithin the time period is included. Lactate 1.3 0.4 - 2.0 mmol/L LAB CHEMISTRY METHOD 05/21/2025 8:14 PM EDT [facility] Blood Venous blood specimen / Unknown Venipuncture / Unknown 05/21/2025 6:44 PM EDT 05/21/2025 7:30 PM EDT Nhaid Dumas MD LAB BLOOD ORDERABLES Final Resul t [facility] [address] [place] [address], * XR Chest 2 Views (05/21/2025 5:53 PM EDT) Anatomical Region Laterality Modality Body Radiographic Cristela ging 05/22/2025 8:32 AM EDT Impressions 05/22/2025 8:33 AM EDT Impression: No active pulmonary process identified. Telerad OSWALDO ([id number]) -------- FINAL REPORT -------- Dictated By: Sudha De La Rosa Dictated Date: 05/22/2025 08:32 ET Assigned Physician: Sudha De La Rosa Reviewed and Electronically Signed By: Sudha De La Rosa Signed Date: 05/22/2025 08:33 ET Workstation ID: [id number] Transcribed By: Self Edit Transcribed Date: 05/22/2025 [...] IMPRESSION: Impression: No active pulmonary process identified. Telebettye CHACON ([id number]) -------- FINAL REPORT -------- Dictated By: Sudha De La Rosa Dictated Date: 05/22/2025 08:32 ET Assigned Physician: Sudha De La Rosa Reviewed and Electronically Signed By: Sudha De La Rosa Signed Date: 05/22/2025 08:33 ET Workstation ID: [id number] Transcribed By: Self Edit Transcribed Date: 05/22/2025 08:32 ET Cezar Chan MD IMG XR PROCEDURES Final Res ult * (ABNORMAL) Vitamin B12 (04/24/2025 6:02 AM EDT) Pathologist [facility] Vitamin B-12 1,498(H) 250 - 900 pcg/mL LAB CHEMISTRY METHOD 04/24/2025 12:00 PM EDT [facility] Blood Venous blood specimen / Unknown Venipuncture / Unknown 04/24/2025 6:02 AM EDT 04/24/2025 10:02 AM EDT Reyna CHACON LAB BLOOD ORDERABLES Final Re sult Performing Organization Address [facility] de Phone Number [facility] [address] [place] [address], * (ABNORMAL) Iron and TIBC (04/21/2025 5:38 [...] ORDERABLES Final Resul t Performing Organization Address [facility]/ZIP Co de Phone Number [facility] [address] [place] [address], * (ABNORMAL) Hemoglobin and hematocrit (04/14/2025 8:25 AM EDT) Hemoglobin 7.1(L) 13.5 - 17.5 g/dL LAB HEMETOLOGY METHOD 04/14/2025 8:42 AM EDT [facility] Hematocrit 23.5(L) 42.0 - 54.0 % LAB HEMETOLOGY METHOD 04/14/2025 8:42 AM EDT [facility] Blood Venous blood specimen / Unknown Venipuncture / Unknown 04/14/2025 8:25 AM EDT 04/14/2025 8:32 AM EDT us Estjessica Ji MD LAB BLOOD ORDERABLES Final R esult [facility] [address] [place] [address], * Tissue exam (04/11/2025 4:09 PM EDT) Final Diagnosis Leg, Right, right below knee [...] the specimen is a consent form authorizing [facility] to dispose of the limb. Basket Person sections are submitted in six cassettes. 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 04/16/2025 3:02 PM EDT [facility] Tissue Structure of right lower limb / Unknown 04/11/2025 4:09 PM EDT 04/12/2025 6:33 AM EDT us Ahmet Banks MD LAB PATHOLOGY ORDERABLES Final Result [facility] [address] [place] [address], * TH AN LMA(NO CHARGE) (04/11/2025 3:48 [...] Res ult [facility] [address] [place] [address], [place] [phone] * Light blue tube (04/10/2025 4:37 PM EDT) [facility] Extra Tube Hold for add-ons. 04/10/2025 6:01 PM EDT [facility] Comment:Auto resulted. Blood Venous blood specimen / Unknown 04/10/2025 4:37 PM EDT 04/10/2025 4:48 PM EDT Ju Valdez MD LAB BLOOD ORDERABLES Final Res ult Performing Organization Address [facility]/ZIP Co de Phone Number [facility] [address] [place] [address], [place] [phone] * Creatine kinase (04/10/2025 4:37 PM EDT) [facility] Total CK 32 22 - 269 unit/L LAB CHEMISTRY METHOD 04/10/2025 5:20 PM EDT [facility] Blood Venous blood specimen / Unknown Venipuncture / Unknown 04/10/2025 4:37 PM EDT 04/10/2025 4:44 PM EDT Ju Valdez MD LAB BLOOD ORDERABLES Final Res ult Performing Organization Address [facility] Co de Phone Number [facility] [address] [place] [address], [place] [phone] * Vascular US duplex lower extremity arteries [...] Signed Date: 04/10/2025 14:39 ET Workstation ID: [id number] Transcribed By: Self Edit Transcribed Date: 04/10/2025 [...] Signed Date: 04/10/2025 14:39 ET Workstation ID: [id number] Transcribed By: Self Edit Transcribed Date: 04/10/2025 14:32 ET Ju Valdez MD CV VASCULAR PROCEDURES Final [...] Fin al Result Performing Organization Address City/[facility]/ZIP Co de Phone Number [facility] [address] [place] [address], [place] [phone] * Prothrombin time with INR (04/10/2025 12:31 [...] MD LAB BLOOD ORDERABLES Final Res ult [facility] [address] [place] [address], * Hemoglobin A1c (03/22/2024) [facility] Hemoglobin A1C 6.4 <=6.5 % Blood Venous blood specimen / Unknown [facility] Provider LAB BLOOD ORDERABLES Rosa Isela l Result * Urine Albumin Creatinine Ratio (09/08/2023) [facility] Urine Albumin Creatinine Ratio Abstracted [facility] Provider HEALTH MAINTENANCE Final Result * (ABNORMAL) Lipid panel (09/08/2023) [facility] LDL/HDL Ratio 4 0 - 4 Triglycerides 249(A) 0 - 150 mg/dL Cholesterol 130 0 - 200 mg/dL HDL 34(A) >=40 mg/dL LDL Cholesterol 47 0 - 100 mg/dL Blood Venous blood specimen / Unknown Result [facility] Provider LAB BLOOD ORDERABLES Rosa Isela l Result * Diabetes Foot Exam (09/07/2023) [facility] Diabetes: Annual Foot Exam Abstracted Result [facility] Provider HEALTH MAINTENANCE Final Result from Last 3 Months or Most Recently Relevant to Health Maintenance Insurance MEDICARE [facility] Advance Directives Documents on File Type Date Recorded Patient Basket Person Expl anation DNR (Do Not Resuscitate) 06/25/2025 9:04 AM DNR (Do Not Resuscitate) 02/12/2025 9:30 AM DNR (Do Not Resuscitate) 01/22/2025 9:00 AM Health Care Decision (hx) 07/03/2024 AD [place] DIRECTIVE Health Care Decision (hx) 06/03/2024 AD [place]GR[place] DIRECTIVE Health Care Decision (hx) 06/03/2024 AD HARGR[place] DIRECTIVE Health Care Decision (hx) 06/03/2024 AD HARGR[place] DIRECTIVE * No CPR/Do Not Intubate (Latest Code Status on File) Date Activated Date Inactivated Comments 06/19/2025 7:27 PM 06/24/2025 4:[address] [facility] was ascertained in the following way: Code status discussion: discussion with patient To update the patient's code status, place a code status order. Do not modify or discontinue any currently active code status orders. * Full Code - Default Date Activated Date Inactivated Comments 05/23/2025 10:03 [...] currently active code status orders. Care Teams Builder Operator Relationship Specialty Start Date End Date Diana Corona PA [address] [place] [id number] PCP - General Physician Online Advertising Analyst 04/10/25
--- OUTSIDE RECORDS SUMMARY | 2025-06-26 13:05 | XMS_ITS | Encounter Summary ---
Author Organization [facility] Address [address] [place] [address] Phone Care Team Providers Care Non Destructive Evaluation Specialist Name Role Phone Irving Swift DO Primary Care Provider [phone] Janee Berry MD, MPH Primary Care Provid er Unknown, Unknown Primary Care Provider Jaya Sanchez MD Primary Care Provider Encounter Details Date Type Department Care Team (Latest Contact Info) Description 07/24/2017 Ancillary Orders [facility] [address] [facility] [facility] [address], [address] [place], [place] [id number] Santy Matos, NITIN [address] [place] [address] [address] [place] [address] Diagnosis unknown Social History Tobacco [...] * DEVICE CHECK: PPM REMOTE INTERROGATION WITH ADMINISTRATION VICE PRESIDENT REVIEW (08/22/2018 2:20 PM EST) Narrative Ulisses Moy DO - 08/23/2018 2:09 PM EST Reason for appointment: Remote pacemaker interrogation HPI: Routine 3 month remote pacemaker interrogation. No device related complaints. Indication for device: SSS. Examination: Device type: Pacemaker Price Checker: Medtronic Mode: DDDR LRL/UPL: 70/130 bpm Mode [...] unknown documented in this encounter Care Teams Non Destructive Evaluation Specialist Relationship Specialty Start Date End Date Irving Swift DO [address] [place] [address] PCP - General 07/22/17 01/18/19 Janee Berry MD, MPH [address] [place] [address] [email or web address] PCP - General Family Medicine 01/19/19 05/23/19 Unknown, Unknown, [address] [place] [address] PCP - General 05/24/19 09/06/19 Jaya Brock MD [address] [place] [address] PCP - General 09/07/19 documented as of this encounter Additional Source Comments The information contained in this document represents components of the legal health record. It is not the complete legal health record.[facility]
--- OUTSIDE RECORDS SUMMARY | 2025-06-26 13:05 | XMS_ITS | Patient Health Record ---
Author Organization [facility] Address [address] [place] [address] Care Team Providers Care Manager Hair Name Role Phone Jadyn Daniel Primary Care [...] Risk Notes Problem Atherosclerotic heart disease of [place] coronary artery without angina pectoris ([id number]) Atherosclerotic heart disease of [place] coronary artery without angina pectoris (I25.10) Active confirmed Problem Hypertensive heart disease without congestive heart failure (69731909) Hypertensive heart disease without heart failure (I11.9) Active confirmed Problem Atherosclerosis of coronary artery (352689317) 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 calcified coronary lesion (I25.84) Active confirmed Problem Hyperglycemia due to type 2 diabetes mellitus (159525698449234) Type 2 diabetes mellitus with hyperglycemia, without long-term current use of insulin (E11.65) Active confirmed Problem Laryngitis (28735832) Laryngitis (J04.0) Active confirmed Plan Of Treatment No Information Insurance Providers Payer Name Payer Address Payer Phone Subscriber Number Group Number Insured Name Patient Relationship to Insured Coverage Start Date Coverage End Date MEDICARE PART B [address] [address] [place] [address] [id number] Mark Anthony Omalley Self - patient is the insured [facility] [address] [place] [address] [phone] [id number] Mark Anthony Omalley Self - patient is the insured Medical (General) History Medical History History ICD Code diabetes mellitus Coronary Artery Disease. 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
--- OUTSIDE RECORDS SUMMARY | 2025-06-26 13:05 | XMS_ITS | Encounter Summary ---
Author Organization [facility] [place] [address] Care Team Providers Care Awake Overnight Counselor Name Role Phone Diana Corona Primary Care Provider [phone] Encounter Details Date Type Department Care Team (Late st Contact Info) Description 04/23/2025 Lab Requisition [facility] - Main Lab [address] [facility] [place] [address] Rikki Rosen PA [address] [phone] Encounter for other general examination Social History [...] AM EDT Office Visit Vascular Surgery - [place] [address] [facility] [address] [place] [address] Andie Chua PA [address] [place] [address] 06/06/2026 1:30 PM EDT Ancillary Procedure [facility] [address] [facility] [address] [place] [address] documented as of this encounter Procedures Procedure [...] LAB HEMETOLOGY METHOD 04/23/2025 12:36 PM EDT [facility] RBC 2.30(L) 4.50 - 5.50 M/mcL LAB HEMETOLOGY METHOD [facility] Hemoglobin 7.7(L) 13.5 - 17.5 g/dL LAB HEMETOLOGY METHOD 04/23/2025 12:36 PM [facility] Hematocrit 25.3(L) 42.0 - 54.0 % LAB HEMETOLOGY METHOD 04/23/2025 12:36 PM [facility] MCV 108.6(H) 79.0 - 98.0 FL LAB HEMETOLOGY METHOD 04/23/2025 12:36 PM [facility] MCH 33.0(H) 27.0 - 32.0 pcg LAB HEMETOLOGY METHOD 04/23/2025 12:36 PM [facility] MCHC 30.4(L) 32.0 - 37.0 g/dL LAB HEMETOLOGY METHOD 04/23/2025 12:36 PM [facility] RDW 17.2(H) 11.0 - 15.0 % LAB HEMETOLOGY METHOD 04/23/2025 12:36 PM [facility] Platelets 360 130 - 400 K/mcL LAB HEMETOLOGY METHOD 04/23/2025 12:36 PM [facility] MPV 9.8 7.0 - 11.0 FL LAB HEMETOLOGY METHOD 04/23/2025 12:36 PM EDT [facility] NRBC 0.0 <1.0 % LAB HEMETOLOGY METHOD 04/23/2025 12:36 PM EDT [facility] NRBC Absolute 0.00 <0.10 K/mcL LAB HEMETOLOGY METHOD 04/23/2025 12:36 PM EDT [facility] Blood Venous blood specimen / Unknown Venipuncture / Unknown 04/23/2025 6:20 AM EDT 04/23/2025 10:31 AM EDT Rikki CHACON LAB BLOOD ORDERABLES Final R esult [facility] [address] [place] [address], * (ABNORMAL) Basic metabolic panel (04/23/2025 6:20 AM EDT) Sodium 138 133 - 145 mmol/L LAB CHEMISTRY METHOD 04/23/2025 2:56 PM [facility] Potassium 4.3 3.5 - 5.5 mmol/L LAB CHEMISTRY METHOD 04/23/2025 2:56 PM [facility] Chloride 105 96 - 110 mmol/L LAB CHEMISTRY METHOD 04/23/2025 2:56 PM T [facility] CO2 25 21 - 32 mmol/L LAB CHEMISTRY METHOD 04/23/2025 2:56 PM [facility] Anion Gap 8 3 - 11 LAB CHEMISTRY METHOD 04/23/2025 2:56 PM [facility] Glucose 95 70 - 100 mg/dL LAB CHEMISTRY METHOD 04/23/2025 2:56 PM [facility] BUN 36(H) 5 - 25 mg/dL LAB CHEMISTRY METHOD 04/23/2025 2:56 PM EDT [facility] Creatinine 1.68(H) 0.70 - 1.30 mg/dL LAB CHEMISTRY METHOD 04/23/2025 2:56 PM EDT [facility] eGFR 40(L) >=60 mL/min/1. 73m2 LAB CHEMISTRY METHOD 04/23/2025 2:56 PM EDT [facility] Comment:Calculation [...] CHACON LAB BLOOD ORDERABLES Final R esult [facility] [address] [place] [address], documented in this encounter Visit Diagnoses Diagnosis [...] documented as of this encounter Care Teams Awake Overnight Counselor Relationship Specialty Start Date End Date Diana Corona PA [address] [place] [id number] PCP - General Physician Stave Log Cut Off Saw Operator 04/10/25 documented as of this encounter
--- OUTSIDE RECORDS SUMMARY | 2025-06-26 13:05 | XMS_ITS | Encounter Summary ---
Author Organization [facility] [place] [address] Care Team Providers Care Center Machine Set Up Operator Name Role Phone Diana Corona Primary Care Provider Encounter Details Date Type Department Care Team (Late st Contact Info) Description 04/19/2025 Lab Requisition [facility] - Main Lab [address] [facility] [place] [address] Rikki Rosen PA [address] [phone] Encounter for other general examination Social History [...] AM EDT Office Visit Vascular Surgery - [place] [address] [facility] [address] [place] [address] Andie Chua PA [address] [place] [address] 06/06/2026 1:30 PM EDT Ancillary Procedure [facility] - [facility] 154 300 [facility] 154 [place] [address] documented as of this encounter Procedures Procedure Name Priority Date/Time Associated Diagnosis Comments COMPLETE BLOOD COUNT Routine 04/19/2025 6:03 AM EDT Encounter for other general examination BASIC METABOLIC PANEL Routine 04/19/2025 6:03 AM EDT Encounter for other general examination documented in this encounter Results * (ABNORMAL) Complete blood count (04/19/2025 6:03 AM EDT) [facility] Signature WBC 7.5 4.8 - 10.8 K/mcL LAB HEMETOLOGY METHOD 04/19/2025 10:14 AM [facility] RBC 2.30(L) 4.50 - 5.50 M/mcL LAB HEMETOLOGY METHOD 04/19/2025 10:14 AM [facility] LAB Hemoglobin 7.3(L) 13.5 - 17.5 g/dL LAB HEMETOLOGY METHOD 04/19/2025 10:14 AM [facility] LAB Hematocrit 23.7(L) 42.0 - 54.0 % LAB HEMETOLOGY METHOD 04/19/2025 10:14 AM [facility] MCV 104.9(H) 79.0 - 98.0 FL LAB HEMETOLOGY METHOD 04/19/2025 10:14 AM [facility] LAB MCH 32.3(H) 27.0 - 32.0 pcg LAB HEMETOLOGY METHOD 04/19/2025 10:14 AM [facility] MCHC 30.8(L) 32.0 - 37.0 g/dL LAB HEMETOLOGY METHOD 04/19/2025 10:14 AM [facility] RDW 15.9(H) 11.0 - 15.0 % LAB HEMETOLOGY METHOD 04/19/2025 10:14 AM [facility] Platelets 257 130 - 400 K/mcL LAB HEMETOLOGY METHOD 04/19/2025 10:14 AM [facility] LAB MPV 10.4 7.0 - 11.0 FL LAB HEMETOLOGY METHOD 04/19/2025 10:14 AM EDT [facility] NRBC 0.0 <1.0 % LAB HEMETOLOGY METHOD 04/19/2025 10:14 AM EDT [facility] NRBC Absolute 0.00 <0.10 K/mcL LAB HEMETOLOGY METHOD 04/19/2025 10:14 AM EDT [facility] Blood Venous blood specimen / Unknown Venipuncture / Unknown 04/19/2025 6:03 AM EDT 04/19/2025 9:42 AM EDT Rikki CHACON LAB BLOOD ORDERABLES Final R esult [facility] [address] [place] [address], * (ABNORMAL) Basic metabolic panel (04/19/2025 6:03 AM EDT) Sodium 138 133 - 145 mmol/L LAB CHEMISTRY METHOD 04/19/2025 10:54 AM [facility] Potassium 4.4 3.5 - 5.5 mmol/L LAB CHEMISTRY METHOD 04/19/2025 10:54 AM [facility] Chloride 105 96 - 110 mmol/L LAB CHEMISTRY METHOD 04/19/2025 10:54 AM [facility] CO2 28 21 - 32 mmol/L LAB CHEMISTRY METHOD 04/19/2025 10:54 AM [facility] Anion Gap 5 3 - 11 LAB CHEMISTRY METHOD 04/19/2025 10:54 AM [facility] Glucose 99 70 - 100 mg/dL LAB CHEMISTRY METHOD 04/19/2025 10:54 AM [facility] BUN 33(H) 5 - 25 mg/dL LAB CHEMISTRY METHOD 04/19/2025 10:54 AM EDT [facility] Creatinine 1.54(H) 0.70 - 1.30 mg/dL LAB CHEMISTRY METHOD 04/19/2025 10:54 AM EDT [facility] eGFR 44(L) >=60 mL/min/1. 73m2 LAB CHEMISTRY METHOD 04/19/2025 10:54 AM EDT [facility] Comment:Calculation based on the Chronic Kidney Disease Epidemiology Collaboration (CKD-EPI) equation refit without adjustment for race. BUN/Creatinine Ratio 21.4 LAB CHEMISTRY METHOD 04/19/2025 10:54 AM T [facility] Calcium 8.8 8.5 - 10.5 mg/dL LAB CHEMISTRY METHOD 04/19/2025 10:54 AM T [facility] Blood Venous blood specimen / Unknown Venipuncture / Unknown 04/19/2025 6:03 AM EDT 04/19/2025 9:42 AM EDT us Rikki CHACON LAB BLOOD ORDERABLES Final R esult [facility] [address] [place] [address], documented in this encounter Visit Diagnoses Diagnosis [...] documented as of this encounter Care Teams Center Machine Set Up Operator Relationship Specialty Start Date End Date Diana Corona PA [address] [place] [address] PCP - General Physician Cardiac Care Unit Nurse 04/10/25 documented as of this encounter
--- OUTSIDE RECORDS SUMMARY | 2025-06-26 13:05 | XMS_ITS | Encounter Summary ---
Author Organization [facility] [place] [address] Care Team Providers Care Point Of Care Specialist Name Role Phone Diana Corona Primary Care Provider [phone] Encounter Details Date Type Department Care Team (Late st Contact Info) Description 04/16/2025 Lab Requisition [facility] - Main Lab [address] [facility] [place] [address] Rikki Rosen PA [address] [phone] Encounter for other general examination Social History [...] AM EDT Office Visit Vascular Surgery - [place] [address] [place] [address] Andie Chua PA [address] [place] [address] 06/06/2026 1:30 PM EDT Ancillary Procedure [facility] - [facility] [address] [facility] 154 [place] [address] documented as of this encounter Procedures Procedure Name Priority Date/Time Associated Diagnosis Comments CBC WITH AUTO DIFFERENTIAL Routine 04/16/2025 6:10 AM EDT Encounter for other general examination CBC AND DIFFERENTIAL Routine 04/16/2025 6:10 AM EDT Encounter for other general examination documented in this encounter Results * (ABNORMAL) CBC auto differential (04/16/2025 6:10 AM EDT) [facility] WBC 7.1 4.8 - 10.8 K/mcL LAB HEMETOLOGY METHOD 04/16/2025 12:[address] [facility] RBC 2.20(L) 4.50 - 5.50 M/mcL LAB HEMETOLOGY [facility] Hemoglobin 7.2(L) 13.5 - 17.5 g/dL LAB HEMETOLOGY METHOD 04/16/2025 12:[address] [facility] Hematocrit 23.2(L) 42.0 - 54.0 % LAB HEMETOLOGY METHOD 04/[facility] MCV 105.9(H) 79.0 - 98.0 FL LAB HEMETOLOGY METHOD 04/16[facility] MCH 32.9(H) 27.0 - 32.0 pcg LAB HEMETOLOGY METHOD 04/16[facility]2025 [facility] MCHC 31.0(L) 32.0 - 37.0 g/dL LAB HEMETOLOGY METHOD 04/16/2025 12:45 PM [facility] RDW 15.7(H) 11.0 - 15.0 % LAB HEMETOLOGY METHOD 04/16[facility] Platelets 198 130 - 400 K/mcL LAB HEMETOLOGY METHOD 04/16/2025 12:[address] [facility] MPV 10.7 7.0 - 11.0 FL LAB HEMETOLOGY METHOD 04/16/2025 12:[address] [facility] NRBC 0.0 <1.0 % LAB HEMETOLOGY METHOD [facility] NRBC Absolute 0.00 <0.10 K/mcL LAB HEMETOLOGY METHOD 04/16[facility]2025 [facility] Neutrophils Relative 55.2 % LAB HEMETOLOGY METHOD 04/16/2025 12:45 PM [facility] Lymphocytes Relative 23.4 % LAB HEMETOLOGY METHOD 04/16/2025 12:45 PM [facility] Monocytes Relative 13.6 % LAB HEMETOLOGY METHOD 04/16/2025 12:45 PM [facility] Eosinophils Relative 6.9 % LAB HEMETOLOGY METHOD 04/16/2025 12:45 PM [facility] Basophils Relative 0.6 % LAB HEMETOLOGY METHOD 04/16/2025 12:45 PM [facility] Immature Granulocytes Relative 0.3 % LAB HEMETOLOGY METHOD 04/16/2025 12:45 PM [facility] Neutrophils Absolute 3.95 1.50 - 7.00 K/mcL LAB HEMETOLOGY METHOD 04/16[facility] Lymphocytes Absolute 1.67 1.00 - 5.00 K/mcL LAB HEMETOLOGY METHOD 04/16[facility] Monocytes Absolute 0.97 0.20 - 1.00 K/mcL LAB HEMETOLOGY METHOD 04/16/2025 12:45 PM [facility] Eosinophils Absolute 0.49 0.00 - 0.50 K/mcL LAB HEMETOLOGY METHOD 04/16[facility]2025 [facility] Basophils Absolute 0.04 0.00 - 0.20 K/mcL LAB HEMETOLOGY METHOD 04/16/2025 12:[address] [facility] Immature Granulocytes Absolute 0.02 0.00 - 0.03 K/mcL LAB HEMETOLOGY METHOD 04/16/2025 12:[address] [facility] Blood Venous blood specimen / Unknown Venipuncture / Unknown 04/16/2025 6:10 AM EDT 04/16/2025 10:48 AM EDT us Rikki CHACON LAB BLOOD ORDERABLES Final R esult [facility] [address] [place] [address], documented in this encounter Visit Diagnoses Diagnosis [...] documented as of this encounter Care Teams Point Of Care Specialist Relationship Specialty Start Date End Date Diana Corona PA [address] [place] [address] PCP - General Physician Procurement Services Manager 04/10/25 documented as of this encounter
--- OUTSIDE RECORDS SUMMARY | 2025-06-26 13:06 | XMS_ITS | Encounter Summary ---
Author Organization [facility] Address [address] [place] [address] Phone Care Team Providers Care Manager Scientific Name Role Phone Jaya Brock MD Primary Care Provider Encounter Details Date Type Department Care Team (Late st Contact Info) Description 10/12/2020 Procedure Pass Non-Invasive Cardiology [address] [place] [address] Social History Tobacco Use Types Packs/Day Years [...] on filedocumented in this encounter Care Teams Manager Scientific Relationship Specialty Start Date End Date Jaya Brock MD [address] [place] [address] PCP - General 09/07/19 documented as of this encounter Additional Source Comments The information contained in this document represents components of the legal health record. It is not the complete legal health record.[facility]
--- OUTSIDE RECORDS SUMMARY | 2025-06-26 13:06 | XMS_ITS | Clinical Summary ---
Author Organization [facility] Address [address] [place] [address] Phone Care Team Providers Care Nuclear Chemistry Technician Name Role Phone Mercy Grewal Primary Care Provider [phone] Allergies Active Allergy Reactions Criticality Noted Date [...] patient's age to complete this [place] [address] [place] [address] Medicare Medicare [facility] Care Teams Nuclear Chemistry Technician Relationship Specialty Start Date End Date Mercy Grewal [address] [place] [address] PCP - General 03/03/23
--- OUTSIDE RECORDS SUMMARY | 2025-06-26 13:06 | XMS_ITS | Encounter Summary ---
Author Organization [facility] Address [address] [facility] [address] [place] [address] Phone Care Team Providers Care Tare Worker Name Role Phone Irving Swift DO Primary Care Provider [phone] Janee Berry MD, MPH Primary Care Provid er Unknown, Unknown Primary Care Provider Jaya Sanchez MD Primary Care Provider Encounter Details Date Type Department Care Team (Late st Contact Info) Description 12/28/2018 Ancillary Orders [facility] [address] [place] [address] Ulisses Lyn MD [address] [place] [address] [place] [address] [email or web address] Social History Tobacco Use Types Packs/Day Years [...] on filedocumented in this encounter Care Teams Tare Worker Relationship Specialty Start Date End Date Irving Swift DO 5 [place] [address] PCP - General 07/22/17 01/18/19 Janee Berry MD, MPH [address] [facility] [address] [place] [address] [email or web address] PCP - General Family Medicine 01/19/19 05/23/19 Unknown, Unknown, [address] [facility] [address] [place] [address] PCP - General 05/24/19 09/06/19 Jaya Brock MD [address] [place] [address] PCP - General 09/07/19 documented as of this encounter Additional Source Comments The information contained in this document represents components of the legal health record. It is not the complete legal health record.[facility]
--- OUTSIDE RECORDS SUMMARY | 2025-06-26 13:06 | XMS_ITS ---
Author Organization [address] [facility] Address [address] [place] [address] Phone Care Team Providers Care Seo Assistant Name Role Phone Diana Corona Primary Care Provider [phone] Active Problems Problem Noted Date Diagnosed Date Non-healing wound of amputat ion stump ([facility] V24, [facility] V28) 06/19/2025 Amputation stump infection ([facility] V24, [facility] V28) 05/21/2025 Anemia 04/11/2025 Chronic renal insufficiency 04/11/2025 Pacemaker 04/11/2025 Chronic obstructive pulmonar y disease ([facility] V24, [facility] V28) 04/11/2025 Gangrene of toe of right foot ([facility] V24, [facility] V28) 02/05/2025 Occlusion of arterial bypass graft ([facility] V24) 10/26/2024 Acute deep vein thrombosis ( DVT) of femoral vein of right lower extremity ([facility] V24, [facility] V28) 10/26/2024 Diabetic neuritis ([facility] V24, [facility] V28) Hypertension 08/29/2024 Lumbar spondylosis 09/22/2022 Overview (08/29/2024): Last Assessment & Plan: Mr. Omalley underwent bilateral radiofrequency ablation on 10/08/2022 at [facility] with some improvement lasting 1 [...] Bacterial pneumonia 04/21/2022 CHF (congestive heart failure) ([facility] V24, [facility] V28) 04/21/2022 Gastrointestinal hemorrhage 04/21/2022 Neuropathy 04/21/2022 SSS (sick sinus syndrome) ([facility] V24, [facility] V28) 04/21/2022 Overview (08/29/2024): Last Assessment & Plan: This is been stable. He is status post pacemaker generator replacement as he was end-of-life. This is working well. He is feeling better now that his heart rates are in the higher range. Acute hypoxemic respiratory failure ([facility] V24, [facility] V28) 04/21/2022 Heart block AV complete ([facility] V24, [facility] V2 8) 04/01/2022 AAA (abdominal aortic aneurysm) ([facility] V24) Overview (08/29/2024): Last Assessment & Plan: He had a repeat echo done recently. This showed no changes when compared to before. He has been followed by vascular surgery. Malignant neoplasm of right vocal cord ([facility] V24, [facility] V28) 11/06/2020 Chronic kidney disease (CKD) stage G3b/A1, moderately decreased glomerular filtration rate (GFR) between 30-44 mL/min/1.73 square meter and albuminuria creatinine ratio les* ([facility] V24, [facility] V28) 11/06/2020 Anxiety 08/09/2020 BPH (benign prostatic hyperplasia) 08/09/2020 Coronary artery disease invo lving [place] heart without angina pectoris 08/09/2020 Overview (08/29/2024): [...] lifestyle choices and diet. Peripheral vascular disease ([facility] V24) 2019 Overview (08/29/2024): Last Assessment & Plan: This is stable. Again this is being followed by Dr. Banks. He states that he will be getting a lower extremity arterial study done in the next couple weeks. ST elevation myocardial infa rction (STEMI) ([facility] V24, [facility] V28) 08/09/2020 Overview (08/29/2024): Last Assessment & [...] low cholesterol diet and exercise. Throat cancer ([facility] V24, 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 V24, [facility] V28) 08/09/2020 Type 2 diabetes mellitus wit h renal manifestations ([facility] V24, [facility] V28) 08/09/2020 Current Oncology Plans No current plan information found. Past Plans No past plan information found. Radiation Treatments * No radiation treatments are documented for this patient in [facility]. Treatments may have been administered in another system. Lifetime Dose Tracking * Chemical Lifetime Dose Automatic Entry Manual Entr y Radiation 4,333.74 mGy 0 mGy 4,333.74 mGy Fluoro Time 11.2 minutes 0 minutes 11.2 minutes Resolved Problems Problem Noted Date Diagnosed Date Resolved Date Ischemic leg 01/08/2025 04/13/2025 Critical limb ischemia of ri ght lower extremity ([facility] V24, [facility] V28) 01/08/2025 Epistaxis 10/28/2024 10/28/2024
--- OUTSIDE RECORDS SUMMARY | 2025-06-26 13:06 | XMS_ITS | Encounter Summary ---
Author Organization [facility] Address [address] [facility] [address] [place] [address] Phone Care Team Providers Care Book Sewer Name Role Phone Irving Swift DO Primary Care Provider [phone] Janee Berry MD, MPH Primary Care Provid er Unknown, Unknown Primary Care Provider Jaya Sanchez MD Primary Care Provider Encounter Details Date Type Department Care Team (Late st Contact Info) Description 12/28/2018 Ancillary Orders Non-Invasive Cardiology [address] [place] [address] Ulisses Lyn MD [address] [place] [address] [email or web address] Sick sinus syndrome Social History Tobacco Use [...] dysfunction documented in this encounter Care Teams Book Sewer Relationship Specialty Start Date End Date Irving Swift DO [address] [place] [address] PCP - General 07/22/17 01/18/19 Janee Berry MD, MPH [address] [place] [address] [email or web address] PCP - General Family Medicine 01/19/19 05/23/19 Unknown, Unknown, [address] [place] [address] PCP - General 05/24/19 09/06/19 Jaya Brock MD [address] [place] [address] PCP - General 09/07/19 documented as of this encounter Additional Source Comments The information contained in this document represents components of the legal health record. It is not the complete legal health record.[facility]
== END 2025-06-26 10:40 | disposition home or self-care (01) ==
LOC: HO.LAB 10:39
PROVIDERS: PCP Family Medicine; Visit Provider Internal Medicine Nephrology
DX: N18.32 Chronic kidney disease, stage 3b (principal)
CPT/HCPCS: 36415; 80051; 82306; 82565; 83970; 84520

== ENCOUNTER 2025-06-29 11:59 | Outpatient (AMB) | payer MEDICARE, OTHER, SELFPAY ==
--- OUTSIDE RECORDS SUMMARY | 2025-06-19 14:22 | XMS_ITS | Encounter Summary ---
[facility] [place] [address] Care Team Providers Care Sap Trainer Name Role Phone Diana Corona Primary Care Provider [phone] Reason for Referral * Home Health (Routine) - Closed Specialty Diagnoses / Procedures Referred By Contac t Referred To Contact Home Health Services Diagnoses Amputation stump infection (CMS/HCC V24, [facility] V28) Kerry Ji MD [address] [place] [address] Phone: tel: fax: [facility] - [address] , [address] [place] [address] Phone: tel: fax: Referral ID Status Reason Start Date Expiration Date V isits Requested Visits Authorized [id number] Closed Consult and Treat 06/24/2025 06/24/2026 1 1 Reason for Visit * Reason Comments Wound Infection * Auth/Cert (Routine) Specialty Diagnoses / Procedures Referred By Contac t Referred To Contact Diagnoses Non-healing wound of amputation stump (CMS/HCC V24, CMS/HCC V28) Procedures . Kerry Ji MD [address] [place] [address] Phone: tel: fax: [facility] [address] [place] [address] Phone: tel: Referral ID Status Reason Start Date Expiration Date Visits Re quested Visits Authorized [id number] 1 1 Encounter Details Date Type Department Care Team (Latest Contact Info) Description 06/19/2025 2:22 PM EDT - 06/24/2025 2:10 PM EDT Hospital Encounter [facility] [address] [place] [address] Irvign Lebron MD [address] [place] [phone] Naveen Dickinson MD [address] [place] [address] Kerry Ji MD [address] [place] [phone] Non-healing wound of amputation stump (CMS/HCC V24, [facility] V28) (Primary Dx); Amputation stump infection (CMS/HCC V24, [facility] V28) Discharge Disposition: Home-Health Care c [...] from the original note were not included. [place] DISCHARGE SUMMARY Patient Information Mark Anthony Omalley : 1940 [84 y.o.] Admitting Provider Kerry Ji MD Discharge Provider Kerry Ji MD, Kerry [...] Follow Ups: [facility] - [address] [place] [address] [facility] [address] [facility] [address] [facility] [address] [place] [address] [facility] [address] [facility] [address] Test Results Pending At Discharge: [...] DIRECTED EVERY 14 DAYS [employer] [place] misc Generic drug: flash glucose scanning reader [...] time each day. flash glucose scanning reader ([employer] [place]) misc 1 Product by Does not apply [...] Departure Means Destination Comment s [facility] documented in this encounter Progress [...] VNA services and wound vac supplied by [facility]. [facility] notified that pt will be discharged home today. NESSA scheduled for 06/25. Pt spouse to provide transportation. * Kerry Ji MD - 06/23/2025 1:42 PM EDT Images from the original note were not included. SANDIE PROGRESS NOTE Date: 06/23/2025 Author: Kerry Ji MD Patient ID: Mark Anthony Omalley is a 84 y.o. male : 1940 MR#: [id number] SUBJECTIVE CC: Follow-up right BKA wound Seen [...] a 84 y.o. male : 1940 MR#: [id number] SUBJECTIVE CC: pain No new complaints. Had [...] Principal Problem: Non-healing wound of amputation stump ([facility] V24, [facility] V28) Current Facility-Administered Medications: aspirin chewable [...] Kerry Ji MD Patient ID: Mark Anthony Oamlley is a 84 y.o. male : 1940 MR#: [id number] SUBJECTIVE CC: pain Reports having pain in [...] Principal Problem: Non-healing wound of amputation stump ([facility] V24, [facility] V28) Current Facility-Administered Medications: aspirin chewable [...] intravenous, q24h, OSWALDO Vizcarra, Stopped at 06/20/25 9584 Objective Vital signs in last 24 hours: [...] a 84 y.o. male : 1940 MR#: [id number] SUBJECTIVE CC: pain at bedside. Patient has [...] reassess post op Code status: DNR/I * Yaesmin Estes RN - 06/20/2025 10:40 AM EDT [...] Spiritual Assessment Time Spent: 25 Minutes Location: [address] [place] [address] Sacramental Encounters: Sacrament of Sick-Anointing: Anointed Spiritual [...] of over sixty-five years of marriage. Nettie buddhist is Latter-Day, administered anointing of the sick. Prayed for [...] usually? Transcendence Do you have a particular buddhist, nettie, or spirituality? Is your buddhist/spirituality/nettie challenged by what is happening to you [...] Discharge Needs Discipline following for SNF placement Incinerator Operator Informed Choice Informed Choice Given? Yes ICC [...] OR today and he ho pes to [place] home by the end of the week. [...] infectious concerns): [] Yes / [x] No Forestry Consultant: [] Yes / [x] No If YES, Cardiac Rhythm: [] NSR, [] SB, [] ST, [] A-FIB, [] A-Flutter, [] Pacemaker, [] 1st Degree HB, [] 2nd Degree HB, [] 3rd Degree HB Reason for Forestry Consultant: VS: Visit Vitals BP (!) 153/56 Pulse [...] 100 ml/hr Submitted by and Phone Extension: [phone] * Mary Munira - 06/19/2025 5:53 PM EDT Images from the original note were not included. 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 Patient: Mark Anthony Omalley Admission Date/Time: 06/19/2025 [...] kidney disease) stage 3, GFR 30-59 ml/min ([facility] V24, [facility] V28) 11/06/2020 DX:CKD (chronic kidney disease) stage 3, GFR 30-59 ml/min (HCC) ??? Diabetic neuritis ([facility] V24, [facility] V28) 08/09/2020 DX:Diabetic neuritis (HCC) ??? Gastroesophageal reflux disease without esophagitis 08/09/2020 DX:Gastroesophageal reflux disease without esophagitis ??? History of diverticulitis 08/09/2020 DX:History of diverticulitis ??? HTN (hypertension) 08/09/2020 DX:HTN (hypertension) ??? Hyperlipidemia 08/09/2020 DX:Hyperlipidemia ??? Malignant neoplasm of right vocal cord ([facility] V24, [facility] V28) 11/06/2020 DX:Malignant neoplasm of right vocal cord (HCC) ??? Pacemaker 08/09/2020 DX:Pacemaker ??? Peripheral vascular disease ([facility] V24) 08/09/2020 DX:Peripheral vascular disease (HCC) ??? 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 ST elevation myocardial infarction (STEMI) ([facility] V24, [facility] V28) 08/09/2020 DX:ST elevation myocardial infarction (STEMI) (HCC) ??? Throat cancer ([facility] V24, [facility] V28) 08/09/2020 DX:Throat cancer (HCC); COMMENT: 2020: received RT ??? Type 2 diabetes mellitus with neurological manifestation ([facility] V24, [facility] V28) 08/09/2020 DX:Type 2 diabetes mellitus [...] Sahu ??? CARPAL TUNNEL RELEASE Right PROCEDURE: WV NEUROPLASTY &/TRANSPOS MEDIAN NRV CARPAL TUNNE; COMMENT: dr. cazares ??? COLONOSCOPY 2011 PROCEDURE: HISTORICAL COLONOSCOPY ??? CORONARY ARTERY BYPASS GRAFT 1996 PROCEDURE: HISTORICAL CABG; COMMENT: x4 ??? EYE SURGERY PROCEDURE: HISTORICAL EYE SURGERY; COMMENT: Pinguecula ??? HERNIA REPAIR Bilateral PROCEDURE: REPAIR INGUINAL HERNIA ??? KNEE ARTHROSCOPY Right 2009 PROCEDURE: WV ARTHROSCOPY KNEE DIAGNOSTIC W/WO SYNOVIAL BX SPX; COMMENT: Meniscus ??? NECK SURGERY PROCEDURE: HISTORICAL NECK SURGERY ??? OTHER SURGICAL HISTORY PROCEDURE: WV DUP-SCAN LXTR ART/ARTL BPGS UNI/LMTD STUDY; COMMENT: Angioplasty and stenting of the left leg ??? OTHER SURGICAL HISTORY PROCEDURE: WV BIOPSY OROPHARYNX; COMMENT: Throat cancer had radiation x6 weeks [facility] ??? OTHER SURGICAL HISTORY PROCEDURE: ---- HEMORRHOIDS ---- ??? OTHER SURGICAL HISTORY 06/15/2023 PROCEDURE: WV SLCTV CATHJ 3RD+ ORD SLCTV ABDL PEL/LXTR BRNCH ??? OTHER SURGICAL HISTORY 06/15/2023 PROCEDURE: WV SLCTV CATHJ EA 2ND+ ORD ABDL PEL/LXTR ART BRNCH ??? OTHER SURGICAL HISTORY 06/15/2023 PROCEDURE: X-RAY EXAM OF ARM/LEG ARTERY ??? OTHER SURGICAL HISTORY 06/15/2023 PROCEDURE: ULTRASOUND GUIDANCE FOR VASCULAR AC ??? OTHER SURGICAL HISTORY 06/01/2024 PROCEDURE: WV EVASC RPR DPLMNT [id number] NDGFT ??? OTHER SURGICAL HISTORY 06/01/2024 PROCEDURE: WV OPN ILIAC ART EXPOS PROSTH/ILIAC OCCLS EVASC UNI ??? OTHER SURGICAL HISTORY 06/01/2024 PROCEDURE: WV PERQ ACCESS & CLOSURE FEM ART FOR DELIVERY NDGFT ??? OTHER SURGICAL HISTORY 06/01/2024 PROCEDURE: WV REVASC INTRAVASC LITHOTRIPSY ??? OTHER SURGICAL HISTORY Left 06/28/2024 PROCEDURE: WV BYP OTH/THN VEIN FEM-ANT TIBL PST TIBL/PRONEAL [...] mg, Daily ??? flash glucose scanning reader ([employer] [place]) misc 1 Product by Does not apply [...] Status: DNR/DNI-confirmed with the patient HCP:, Padmini; [phone] Ji Cosigned by Kerry Ji MD at 06/20/2025 4:43 PM EDT documented in this encounter Procedure Notes * Ahmet Banks MD - 06/23/2025 8:47 AM EDT DEBRIDEMENT BK AMP APPLICATION OF WOUND VAC (R) OPERATIVE NOTE Date: 06/23/2025 Location: [facility] OR Name: Mark Anthony Omalley : 1940, Diagnosis PREOP: Right BKA dehiscence POSTOP: Right BKA dehiscence Procedures RIGHT BKA WOUND DEBRIDEMENT, WASHOUT, VAC PLACEMENT Indications: Mark Anthony Omalley is an 84 y.o. male who is having surgery forRight BKA dehiscence Surgeon(s) & Supervisor Kennel(s) * Ahmet Banks MD - Primary Anesthesia: [...] OPERATIVE NOTE Date: 06/19/2025 - 06/20/2025 Location: [facility] OR Name: Mark Anthony Omalley, : 1940, Diagnosis Pre-op Diagnosis * Non-healing wound of amputation stump (CMS/HCC V24, CMS/HCC V28) [T87.89] Post-op Diagnosis * Non-healing wound of amputation stump (CMS/HCC V24, CMS/HCC V28) [T87.89] Procedures * RIGHT BKA WOUND DEBRIDEMENT, WASHOUT, VAC PLACEMENT Indications: Mark Anthony Omalley is an 84 y.o. male who is having surgery for Surgeon(s) & Supervisor Kennel(s) * Ahmet Banks MD - Primary Anesthesia: [...] Dietary nutrition supplements Three times daily (TID); [facility]; Diabetic Supplement Continuous Comments: [place] or vanilla Question Answer Comment Frequency Three times daily (TID) Location [facility] Supplements Diabetic Supplement 06/21/25 1040 06/20/25 1501 Adult diet [facility]; General, Diabetic; Regular; 75 gm carb/Meal Diet effective now Question Answer Comment Location [facility] Diet Type (req) General Diet Type (req) Diabetic General Diet Regular Diabetic 75 gm carb/Meal 06/20/25 1502 History of presenting illness: Patient is a 84 y.o. male with a history of Past Medical History: Diagnosis Date Anxiety 08/09/2020 DX:Anxiety CAD (coronary artery disease) 08/09/2020 DX:CAD (coronary artery disease); COMMENT: Multiple stenting procedures x 5. CKD (chronic kidney disease) stage 3, GFR 30-59 ml/min ([facility] V24, [facility] V28) 11/06/2020 DX:CKD (chronic kidney disease) stage 3, GFR 30-59 ml/min ([facility]) Diabetic neuritis (CMS/[facility] V24, [facility] V28) 08/09/2020 DX:Diabetic neuritis (HCC) Gastroesophageal reflux disease without esophagitis 08/09/2020 DX:Gastroesophageal reflux disease without esophagitis History of diverticulitis 08/09/2020 DX:History of diverticulitis HTN (hypertension) 08/09/2020 DX:HTN (hypertension) Hyperlipidemia 08/09/2020 DX:Hyperlipidemia Malignant neoplasm of right vocal cord ([facility] V24, [facility] V28) 11/06/2020 DX:Malignant neoplasm of right vocal cord (HCC) Pacemaker 08/09/2020 DX:Pacemaker Peripheral vascular disease ([facility] V24) 08/09/2020 DX:Peripheral vascular disease (HCC) 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 DX: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 ST elevation myocardial infarction (STEMI) (CMS/HCC V24, [facility] V28) 08/09/2020 DX:ST elevation myocardial infarction (STEMI) (HCC) Throat cancer ([facility] V24, [facility] V28) 08/09/2020 DX:Throat cancer (HCC); COMMENT: 2020: received RT Type 2 diabetes mellitus with neurological manifestation ([facility] V24, [facility] V28) 08/09/2020 DX:Type 2 diabetes mellitus with neurological manifestation (HCC) Type 2 diabetes mellitus with renal manifestations ([facility] V24, [facility] V28) 08/09/2020 DX:Type 2 diabetes mellitus with renal manifestations (HCC) Past Surgical History: Procedure Laterality Date BACK SURGERY Bilateral 10/08/2022 PROCEDURE: HISTORICAL BACK SURGERY; COMMENT: Bilateral L3, L4 and L5 radiofrequency neurotomy Dr. Sahu CARPAL TUNNEL RELEASE Right PROCEDURE: WV NEUROPLASTY &/TRANSPOS MEDIAN NRV CARPAL TUNNE; COMMENT: dr. cazares COLONOSCOPY 2011 PROCEDURE: HISTORICAL COLONOSCOPY CORONARY ARTERY BYPASS GRAFT 1996 PROCEDURE: HISTORICAL CABG; COMMENT: x4 EYE SURGERY PROCEDURE: HISTORICAL EYE SURGERY; COMMENT: Pinguecula HERNIA REPAIR Bilateral PROCEDURE: REPAIR INGUINAL HERNIA KNEE ARTHROSCOPY Right 2009 PROCEDURE: WV ARTHROSCOPY KNEE DIAGNOSTIC W/WO SYNOVIAL BX SPX; COMMENT: Meniscus NECK SURGERY PROCEDURE: HISTORICAL NECK SURGERY OTHER SURGICAL HISTORY PROCEDURE: WV DUP-SCAN LXTR ART/ARTL BPGS UNI/LMTD STUDY; COMMENT: Angioplasty and stenting of the left leg OTHER SURGICAL HISTORY PROCEDURE: WV BIOPSY OROPHARYNX; COMMENT: Throat cancer had radiation x6 weeks [facility] OTHER SURGICAL HISTORY PROCEDURE: ---- HEMORRHOIDS ---- OTHER SURGICAL HISTORY 06/15/2023 PROCEDURE: WV SLCTV CATHJ 3RD+ ORD SLCTV ABDL PEL/LXTR BRNCH OTHER SURGICAL HISTORY 06/15/2023 PROCEDURE: WV SLCTV CATHJ EA 2ND+ ORD ABDL PEL/LXTR ART BRNCH OTHER SURGICAL HISTORY 06/15/2023 PROCEDURE: X-RAY EXAM OF ARM/LEG ARTERY OTHER SURGICAL HISTORY 06/15/2023 PROCEDURE: ULTRASOUND GUIDANCE FOR VASCULAR AC OTHER SURGICAL HISTORY 06/01/2024 PROCEDURE: WV EVASC RPR DPLMNT [id number] NDGFT OTHER SURGICAL HISTORY 06/01/2024 PROCEDURE: WV OPN ILIAC ART EXPOS PROSTH/ILIAC OCCLS EVASC UNI OTHER SURGICAL HISTORY 06/01/2024 PROCEDURE: WV PERQ ACCESS & CLOSURE FEM ART FOR DELIVERY NDGFT OTHER SURGICAL HISTORY 06/01/2024 PROCEDURE: WV REVASC INTRAVASC LITHOTRIPSY OTHER SURGICAL HISTORY Left 06/28/2024 PROCEDURE: WV BYP OTH/THN VEIN FEM-ANT TIBL PST TIBL/PRONEAL [...] to follow. Signature: Clarice Donato RD * OSWALDO Vizcarra - 06/19/2025 4:25 PM EDTAssociated Order(s): IP CONSULT TO VASCULAR SURGERY Images from the original note were not included. VASCULAR SURGERY CONSULTATION PATIENT: Mark Anthony Omalley ENCOUNTER: 06/19/2025 EMRN: [id number] : 1940 PCP: OSWALDO Roach CHIEF COMPLAINT: [...] vascular surgery office on 06/[address] aBnks. Dressingchanges were switched to twice daily wet [...] kidney disease) stage 3, GFR 30-59 ml/min ([facility] V24, [facility] V28) 11/06/2020 DX:CKD (chronic kidney disease) stage 3, GFR 30-59 ml/min ([facility]) Diabetic neuritis ([facility] V24, [facility] V28) 08/09/2020 DX:Diabetic neuritis (HCC) Gastroesophageal reflux disease without esophagitis 08/09/2020 DX:Gastroesophageal reflux disease without esophagitis History of diverticulitis 08/09/2020 DX:History of diverticulitis HTN (hypertension) 08/09/2020 DX:HTN (hypertension) Hyperlipidemia 08/09/2020 DX:Hyperlipidemia Malignant neoplasm of right vocal cord ([facility] V24, [facility] V28) 11/06/2020 DX:Malignant neoplasm of right vocal cord (HCC) Pacemaker 08/09/2020 DX:Pacemaker Peripheral vascular disease ([facility] V24) 08/09/2020 DX:Peripheral vascular disease (HCC) 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 Sahu CARPAL TUNNEL RELEASE Right PROCEDURE: WV NEUROPLASTY &/TRANSPOS MEDIAN NRV CARPAL TUNNE; COMMENT: dr. cazares COLONOSCOPY 2011 PROCEDURE: HISTORICAL COLONOSCOPY CORONARY ARTERY BYPASS GRAFT 1996 PROCEDURE: HISTORICAL CABG; COMMENT: x4 EYE SURGERY PROCEDURE: HISTORICAL EYE SURGERY; COMMENT: Pinguecula HERNIA REPAIR Bilateral PROCEDURE: REPAIR INGUINAL HERNIA KNEE ARTHROSCOPY Right 2009 PROCEDURE: WV ARTHROSCOPY KNEE DIAGNOSTIC W/WO SYNOVIAL BX SPX; COMMENT: Meniscus NECK SURGERY PROCEDURE: HISTORICAL NECK SURGERY OTHER SURGICAL HISTORY PROCEDURE: WV DUP-SCAN LXTR ART/ARTL BPGS UNI/LMTD STUDY; COMMENT: Angioplasty and stenting of the left leg OTHER SURGICAL HISTORY PROCEDURE: WV BIOPSY OROPHARYNX; COMMENT: Throat cancer had radiation x6 weeks [facility] OTHER SURGICAL HISTORY PROCEDURE: ---- HEMORRHOIDS ---- OTHER SURGICAL HISTORY 06/15/2023 PROCEDURE: WV SLCTV CATHJ 3RD+ ORD SLCTV ABDL PEL/LXTR BRNCH OTHER SURGICAL HISTORY 06/15/2023 PROCEDURE: WV SLCTV CATHJ EA 2ND+ ORD ABDL PEL/LXTR ART BRNCH OTHER SURGICAL HISTORY 06/15/2023 PROCEDURE: X-RAY EXAM OF ARM/LEG ARTERY OTHER SURGICAL HISTORY 06/15/2023 PROCEDURE: ULTRASOUND GUIDANCE FOR VASCULAR AC OTHER SURGICAL HISTORY 06/01/2024 PROCEDURE: WV EVASC RPR DPLMNT [id number] NDGFT OTHER SURGICAL HISTORY 06/01/2024 PROCEDURE: WV OPN ILIAC ART EXPOS PROSTH/ILIAC OCCLS EVASC UNI OTHER SURGICAL HISTORY 06/01/2024 PROCEDURE: WV PERQ ACCESS & CLOSURE FEM ART FOR DELIVERY NDGFT OTHER SURGICAL HISTORY 06/01/2024 PROCEDURE: WV REVASC INTRAVASC LITHOTRIPSY OTHER SURGICAL HISTORY Left 06/28/2024 PROCEDURE: WV BYP OTH/THN VEIN FEM-ANT TIBL PST TIBL/PRONEAL PACEMAKER IMPLANT PROCEDURE: HISTORICAL PACEMAKER TONSILLECTOMY PROCEDURE: HISTORICAL TONSILLECTOMY TURP / TRANSURETHRAL INCISION / DRAINAGE PROSTATE 2005 PROCEDURE: HISTORICAL TURP Current Facility-Administered Medications Medication Dose Route Frequency Provider Last Rate Last Admin HYDROmorphone (DILAUDID) injection 1 mg 1 mg intravenous Once Naveen Dickinson MD lactated Ringer's infusion 100 mL/hr [...] time each day. flash glucose scanning reader ([employer] [place]) misc 1 Product by Does not apply [...] ASSESSMENT: 1. Non-healing wound of amputation stump ([facility] V24, [facility] V28) 84 y.o. male well known [...] AM EDT Office Visit V[facility] - [place] [address] [place] [address] Andie Chua PA [address] [place] [address] 06/06/2026 1:30 PM EDT Ancillary Procedure [facility] [address] [facility] [address] [place] [address] Scheduled Referrals Name Type Priority Associated Diagnoses Order Schedule Ambulatory referral to Home Health Outpatient Referral Routine Amputation stump infection ([facility] V24, [facility] V28) 1 Occurrences starting 06/24/2025 until [...] POCT Glucose, blood (06/23/2025 9:33 AM EDT) [facility] Glucose POCT 111(H) 70 - 100 mg/dL 06/23/2025 9:34 AM EDT [facility] Blood Capillary blood specimen / Unknown 06/23/2025 9:33 AM EDT 06/23/2025 9:35 AM EDT us Kerry Ji MD LAB POINT OF CARE TE ST DOCKED DEVICE UNSOLICITED RESULTS Final Result [facility] [address] [place] [address], * Lavender tube (06/23/2025 7:25 AM EDT) [facility] Extra Tube Hold for add-ons. 06/23/2025 9:01 AM EDT [facility] Comment:Auto resulted. Blood Venous blood specimen / Unknown 06/23/2025 7:25 AM EDT 06/23/2025 7:32 AM EDT us Kerry Ji MD LAB BLOOD ORDERABLES Final R esult [facility] [address] [place] [address], [place] [phone] * SST tube (06/23/2025 7:25 AM EDT) Pathologist [facility] Extra Tube Hold for add-ons. 06/23/2025 9:01 AM EDT [facility] Comment:Auto resulted. Blood Venous blood specimen / Unknown 06/23/2025 7:25 AM EDT 06/23/2025 7:32 AM EDT us Kerry Ji MD LAB BLOOD ORDERABLES Final R esult [facility] [address] [place] [address], [place] [phone] * Troponin I high sensitivity (06/23/2025 7:25 AM EDT) Pathologist [facility] High Sensitivity Troponin I 33 <=79 ng/L LAB CHEMISTRY METHOD 06/23/2025 8:18 AM EDT [facility] Blood Venous blood specimen / Unknown Venipuncture / Unknown 06/23/2025 7:25 AM EDT 06/23/2025 7:31 AM EDT Narrative [facility] - 06/23/2025 8:18 AM EDT High levels of biotin in samples may falsely decrease hsTroponin values. Use caution when interpreting hsTroponin results in patients taking biotin who exhibit renal impairment (eGFR <60) or in patients taking more than 20 mg/day of biotin. us Brisa CHACON LAB BLOOD ORDERABLES Final Re sult [facility] [address] [place] [address], * (ABNORMAL) CBC auto differential (06/23/2025 6:32 AM EDT) WBC 8.4 4.8 - 10.8 K/mcL LAB HEMETOLOGY METHOD 06/23/2025 7:02 AM EDT [facility] RBC 3.20(L) 4.50 - 5.50 M/mcL LAB HEMETOLOGY METHOD 06/23/2025 7:02 AM [facility] Hemoglobin 10.2(L) 13.5 - 17.5 g/dL LAB HEMETOLOGY METHOD 06/23/2025 7:02 AM [facility] Hematocrit 31.2(L) 42.0 - 54.0 % LAB HEMETOLOGY METHOD 06/23/2025 7:02 AM [facility] MCV 99.0(H) 79.0 - 98.0 FL LAB HEMETOLOGY METHOD 06/23/2025 7:02 AM [facility] MCH 32.4(H) 27.0 - 32.0 pcg LAB HEMETOLOGY METHOD 06/23/2025 7:02 AM [facility] MCHC 32.7 32.0 - 37.0 g/dL LAB HEMETOLOGY METHOD 06/23/2025 7:02 AM [facility] RDW 16.9(H) 11.0 - 15.0 % LAB HEMETOLOGY METHOD 06/23/2025 7:02 AM [facility] Platelets 209 130 - 400 K/mcL LAB HEMETOLOGY METHOD 06/23/2025 7:02 AM [facility] MPV 9.5 7.0 - 11.0 FL LAB HEMETOLOGY METHOD 06/23/2025 7:02 AM [facility] NRBC 0.0 <1.0 % LAB HEMETOLOGY METHOD 06/23/2025 7:02 AM [facility] NRBC Absolute 0.00 <0.10 K/mcL LAB HEMETOLOGY METHOD 06/23/2025 7:02 AM [facility] Neutrophils Relative 60.8 % LAB HEMETOLOGY METHOD 06/23/2025 7:02 AM [facility] Lymphocytes Relative 19.9 % LAB HEMETOLOGY METHOD 06/23/2025 7:02 AM [facility] Monocytes Relative 13.4 % LAB HEMETOLOGY METHOD 06/23/2025 7:02 AM [facility] Eosinophils Relative 5.2 % LAB HEMETOLOGY METHOD 06/23/2025 7:02 AM [facility] Basophils Relative 0.5 % LAB HEMETOLOGY METHOD 06/23/2025 7:02 AM [facility] Immature Granulocytes Relative 0.2 % LAB HEMETOLOGY METHOD 06/23/2025 7:02 AM [facility] Neutrophils Absolute 5.12 1.50 - 7.00 K/mcL LAB HEMETOLOGY METHOD 06/23/2025 7:02 AM [facility] Lymphocytes Absolute 1.68 1.00 - 5.00 K/mcL LAB HEMETOLOGY METHOD 06/23/2025 7:02 AM [facility] Monocytes Absolute 1.13(H) 0.20 - 1.00 K/mcL LAB HEMETOLOGY METHOD 06/23/2025 7:02 AM [facility] Eosinophils Absolute 0.44 0.00 - 0.50 K/mcL LAB HEMETOLOGY METHOD 06/23/2025 7:02 AM EDT [facility] Basophils Absolute 0.04 0.00 - 0.20 K/mcL LAB HEMETOLOGY METHOD 06/23/2025 7:02 AM EDT [facility] Immature Granulocytes Absolute 0.02 0.00 - 0.03 K/mcL LAB HEMETOLOGY METHOD 06/23/2025 7:02 AM EDT [facility] Blood Venous blood specimen / Unknown Venipuncture / Unknown 06/23/2025 6:32 AM EDT 06/23/2025 6:42 AM EDT Kerry Ji MD LAB BLOOD ORDERABLES Final R esult Performing Organization Address [facility] Co de Phone Number [facility] [address] [place] [address], * Troponin I high sensitivity (06/23/2025 6:31 AM EDT) [facility] High Sensitivity Troponin I 33 <=79 ng/L LAB CHEMISTRY METHOD 06/23/2025 7:28 AM EDT [facility] Blood Venous blood specimen / Unknown Venipuncture / Unknown 06/23/2025 6:31 AM EDT 06/23/2025 6:42 AM EDT Narrative [facility] - 06/23/2025 7:28 AM EDT High levels of biotin in samples may falsely decrease hsTroponin values. Use caution when interpreting hsTroponin results in patients taking biotin who exhibit renal impairment (eGFR <60) or in patients taking more than 20 mg/day of biotin. us Brisa CHACON LAB BLOOD ORDERABLES Final Re sult Performing Organization Address [facility]/ZIP Co de Phone Number [facility] [address] [place] [address], * Magnesium (06/23/2025 6:31 AM EDT) [facility] Magnesium 2.0 1.9 - 2.6 mg/dL LAB CHEMISTRY METHOD 06/23/2025 7:14 AM [facility] Blood Venous blood specimen / Unknown Venipuncture / Unknown 06/23/2025 6:31 AM EDT 06/23/2025 6:42 AM EDT us Brisa CHACON LAB BLOOD ORDERABLES Final Re sult [facility] [address] [place] [address], * (ABNORMAL) Basic metabolic panel (06/23/2025 6:31 AM EDT) [facility] Sodium 140 133 - 145 mmol/L LAB CHEMISTRY METHOD 06/23/2025 7:14 AM [facility] Potassium 3.6 3.5 - 5.5 mmol/L LAB CHEMISTRY METHOD 06/23/2025 7:14 AM [facility] Chloride 108 96 - 110 mmol/L LAB CHEMISTRY METHOD 06/23/2025 7:14 AM [facility] CO2 27 21 - 32 mmol/L LAB CHEMISTRY METHOD 06/23/2025 7:14 AM [facility] Anion Gap 5 3 - 11 LAB CHEMISTRY METHOD 06/23/2025 7:14 AM [facility] Glucose 104(H) 70 - 100 mg/dL LAB CHEMISTRY METHOD 06/23/2025 7:14 AM [facility] BUN 23 5 - 25 mg/dL LAB CHEMISTRY METHOD 06/23/2025 7:14 AM [facility] Creatinine 1.25 0.70 - 1.30 mg/dL LAB CHEMISTRY METHOD 06/23/2025 7:14 AM [facility] eGFR 56(L) >=60 mL/min/1. 73m2 LAB CHEMISTRY METHOD 06/23/2025 7:14 AM EDT [facility] Comment:Calculation based on the Chronic Kidney Disease Epidemiology Collaboration (CKD-EPI) equation refit without adjustment for race. BUN/Creatinine Ratio 18.4 LAB CHEMISTRY METHOD 06/23/2025 7:14 AM EDT [facility] Calcium 9.1 8.5 - 10.5 mg/dL LAB CHEMISTRY METHOD 06/23/2025 7:14 AM EDT [facility] Blood Venous blood specimen / Unknown Venipuncture / Unknown 06/23/2025 6:31 AM EDT 06/23/2025 6:42 AM EDT Kerry Ji MD LAB BLOOD ORDERABLES Final R esult Performing Organization Address [facility] Co de Phone Number [facility] [address] [place] [address], [place] [phone] * ECG 12 lead (06/23/2025 5:08 AM EDT) Ventricular Rate ECG 70 BPM GEMUSE Atrial Rate 70 BPM GEMUSE P-R Interval 256 ms GEMUSE QRS Duration 116 ms GEMUSE Q-T Interval 432 ms GEMUSE QTc 466 ms GEMUSE T [place] -52 degrees GEMUSE ECG Interpretation AV dual-paced rhythm with prolonged AV conduction Abnormal ECG When compared with ECG of 21-MAY-2025 18:41, No significant change was found Confirmed by Brandon FARRELL JAMES ([id number]) on 06/23/2025 10:24:16 PM GEM[facility] 06/23/2025 5:08 AM EDT 06/23/2025 10:24 PM EDT Brisa CHACON ECG ORDERABLES Final Result Performing Organization Address [facility]/ZIP Co de Phone Number G[facility] * Vancomycin, trough Please draw after 2000 but prior to next dose @2100, thank you (06/21/2025 8:04 PM EDT) [facility] Vancomycin Trough 14.5 10.0 - 20.0 mcg/mL LAB CHEMISTRY METHOD 06/21/2025 9:04 PM EDT [facility] Blood Venous blood specimen / Unknown Venipuncture / Unknown 06/21/2025 8:04 PM EDT 06/21/2025 8:09 PM EDT us Andie CHACON LAB BLOOD ORDERABLES Final Res ult [facility] [address] [place] [address], * (ABNORMAL) CBC auto differential (06/21/2025 5:27 AM EDT) [facility] WBC 6.3 4.8 - 10.8 K/mcL LAB HEMETOLOGY METHOD 06/21/2025 6:46 AM [facility] RBC 3.10(L) 4.50 - 5.50 M/mcL LAB HEMETOLOGY METHOD 06/21/2025 6:46 AM [facility] Hemoglobin 9.8(L) 13.5 - 17.5 g/dL LAB HEMETOLOGY METHOD 06/21/2025 6:46 AM [facility] Hematocrit 31.2(L) 42.0 - 54.0 % LAB HEMETOLOGY METHOD 06/21/2025 6:46 AM T [facility] MCV 100.3(H) 79.0 - 98.0 FL LAB HEMETOLOGY METHOD 06/21/2025 6:46 AM [facility] MCH 31.5 27.0 - 32.0 pcg LAB HEMETOLOGY METHOD 06/21/2025 6:46 AM [facility] MCHC 31.4(L) 32.0 - 37.0 g/dL LAB HEMETOLOGY METHOD 06/21/2025 6:46 AM [facility] RDW 16.8(H) 11.0 - 15.0 % LAB HEMETOLOGY METHOD 06/21/2025 6:46 AM [facility] Platelets 203 130 - 400 K/mcL LAB HEMETOLOGY METHOD 06/21/2025 6:46 AM [facility] MPV 10.0 7.0 - 11.0 FL LAB HEMETOLOGY METHOD 06/21/2025 6:46 AM [facility] NRBC 0.0 <1.0 % LAB HEMETOLOGY METHOD 06/21/2025 6:46 AM [facility] NRBC Absolute 0.00 <0.10 K/mcL LAB HEMETOLOGY METHOD 06/21/2025 6:46 AM [facility] Neutrophils Relative 72.5 % LAB HEMETOLOGY METHOD 06/21/2025 6:46 AM [facility] Lymphocytes Relative 18.8 % LAB HEMETOLOGY METHOD 06/21/2025 6:46 AM [facility] Monocytes Relative 8.1 % LAB HEMETOLOGY METHOD 06/21/2025 6:46 AM [facility] Eosinophils Relative 0.0 % LAB HEMETOLOGY METHOD 06/21/2025 6:46 AM [facility] Basophils Relative 0.3 % LAB HEMETOLOGY METHOD 06/21/2025 6:46 AM [facility] Immature Granulocytes Relative 0.3 % LAB HEMETOLOGY METHOD 06/21/2025 6:46 AM [facility] Neutrophils Absolute 4.56 1.50 - 7.00 K/mcL LAB HEMETOLOGY METHOD 06/21/2025 6:46 AM [facility] Lymphocytes Absolute 1.18 1.00 - 5.00 K/mcL LAB HEMETOLOGY METHOD 06/21/2025 6:46 AM EDT [facility] Monocytes Absolute 0.51 0.20 - 1.00 K/[facility] LAB HEMETOLOGY METHOD 06/21/2025 6:46 AM EDT [facility] Eosinophils Absolute 0.00 0.00 - 0.50 K/[facility] LAB HEMETOLOGY METHOD 06/21/2025 6:46 AM EDT [facility] Basophils Absolute 0.02 0.00 - 0.20 K/[facility] LAB HEMETOLOGY METHOD 06/21/2025 6:46 AM EDT [facility] Immature Granulocytes Absolute 0.02 0.00 - 0.03 K/[facility] LAB HEMETOLOGY METHOD 06/21/2025 6:46 AM EDT [facility] Blood Venous blood specimen / Unknown Venipuncture / Unknown 06/21/2025 5:27 AM EDT 06/21/2025 6:20 AM EDT us Andie CHACON LAB BLOOD ORDERABLES Final Res ult [facility] [address] [place] [address], * (ABNORMAL) Basic metabolic panel (06/21/2025 5:27 AM EDT) Sodium 143 133 - 145 mmol/L LAB CHEMISTRY METHOD 06/21/2025 6:52 AM EDT [facility] Potassium 4.3 3.5 - 5.5 mmol/L LAB CHEMISTRY METHOD 06/21/2025 6:52 AM [facility] Chloride 109 96 - 110 mmol/L LAB CHEMISTRY METHOD 06/21/2025 6:52 AM T [facility] CO2 25 21 - 32 mmol/L LAB CHEMISTRY METHOD 06/21/2025 6:52 AM EDT [facility] Anion Gap 9 3 - 11 LAB CHEMISTRY METHOD 06/21/2025 6:52 AM EDT [facility] Glucose 128(H) 70 - 100 mg/dL LAB CHEMISTRY METHOD 06/21/2025 6:52 AM EDT [facility] BUN 28(H) 5 - 25 mg/dL LAB CHEMISTRY METHOD 06/21/2025 6:52 AM EDT [facility] Creatinine 1.36(H) 0.70 - 1.30 mg/dL LAB CHEMISTRY METHOD 06/21/2025 6:52 AM EDT [facility] eGFR 51(L) >=60 mL/min/1. 73m2 LAB CHEMISTRY METHOD 06/21/2025 6:52 AM EDT [facility] Comment:Calculation based on the Chronic Kidney Disease Epidemiology Collaboration (CKD-EPI) equation refit without adjustment for race. BUN/Creatinine Ratio 20.6 LAB CHEMISTRY METHOD 06/21/2025 6:52 AM EDT [facility] Calcium 8.9 8.5 - 10.5 mg/dL LAB CHEMISTRY METHOD 06/21/2025 6:52 AM EDT [facility] Blood Venous blood specimen / Unknown Venipuncture / Unknown 06/21/2025 5:27 AM EDT 06/21/2025 6:20 AM EDT us Andie CHACON LAB BLOOD ORDERABLES Final Res ult [facility] [address] [place] [address], * (ABNORMAL) POCT Glucose, blood (06/20/2025 7:33 PM EDT) Glucose POCT 151(H) 70 - 100 mg/dL 06/20/2025 7:33 PM EDT [facility] Blood Capillary blood specimen / Unknown 06/20/2025 7:33 PM EDT 06/20/2025 7:34 PM EDT us Kerry Ji MD LAB POINT OF CARE TE ST DOCKED DEVICE UNSOLICITED RESULTS Final Result Performing Organization Address [facility] Co de Phone Number [facility] [address] [place] [address], [place] [phone] * (ABNORMAL) POCT Glucose, blood (06/20/2025 5:27 PM EDT) [facility] Glucose POCT 150(H) 70 - 100 mg/dL 06/20/2025 5:28 PM EDT [facility] Blood Capillary blood specimen / Unknown 06/20/2025 5:27 PM EDT 06/20/2025 5:29 PM EDT us Kerry Ji MD LAB POINT OF CARE TE ST DOCKED DEVICE UNSOLICITED RESULTS Final Result Performing Organization Address [facility] de Phone Number [facility] [address] [place] [address], [place] [phone] * Vancomycin random (06/20/2025 9:50 AM EDT) [facility] Vancomycin Rm 19.8 mcg/mL LAB CHEMISTRY METHOD 06/20/2025 10:48 AM EDT [facility] Blood Venous blood specimen / Unknown Venipuncture / Unknown 06/20/2025 9:50 AM EDT 06/20/2025 9:56 AM EDT us Rashid CHACON LAB BLOOD ORDERABLES Final Resu lt Performing Organization Address [facility]/ZIP Co de Phone Number [facility] [address] [place] [address], [place] [phone] * (ABNORMAL) CBC - Every 3 Days (06/20/2025 6:12 AM EDT) [facility] WBC 7.9 4.8 - 10.8 K/mcL LAB HEMETOLOGY METHOD 06/20/2025 8:08 AM [facility] RBC 3.10(L) 4.50 - 5.50 M/mcL LAB HEMETOLOGY METHOD 06/20/2025 8:08 AM [facility] Hemoglobin 9.8(L) 13.5 - 17.5 g/dL LAB HEMETOLOGY METHOD 06/20/2025 8:08 AM [facility] Hematocrit 31.4(L) 42.0 - 54.0 % LAB HEMETOLOGY METHOD 06/20/2025 8:08 AM [facility] MCV 101.9(H) 79.0 - 98.0 FL LAB HEMETOLOGY METHOD 06/20/2025 8:08 AM [facility] MCH 31.8 27.0 - 32.0 pcg LAB HEMETOLOGY METHOD 06/20/2025 8:08 AM [facility] MCHC 31.2(L) 32.0 - 37.0 g/dL LAB HEMETOLOGY METHOD 06/20/2025 8:08 AM [facility] RDW 17.5(H) 11.0 - 15.0 % LAB HEMETOLOGY METHOD 06/20/2025 8:08 AM [facility] Platelets 194 130 - 400 K/mcL LAB HEMETOLOGY METHOD 06/20/2025 8:08 AM [facility] MPV 9.8 7.0 - 11.0 FL LAB HEMETOLOGY METHOD 06/20/2025 8:08 AM [facility] NRBC 0.0 <1.0 % LAB HEMETOLOGY METHOD 06/20/2025 8:08 AM [facility] NRBC Absolute 0.00 <0.10 K/mcL LAB HEMETOLOGY METHOD 06/20/2025 8:08 AM [facility] Blood Venous blood specimen / Unknown Venipuncture / Unknown 06/20/2025 6:12 AM EDT 06/20/2025 7:52 AM EDT us Andie CHACON LAB BLOOD ORDERABLES Final Res ult [facility] [address] [place] [address], * (ABNORMAL) Basic metabolic panel (06/20/2025 6:12 AM EDT) Sodium 144 133 - 145 mmol/L LAB CHEMISTRY METHOD 06/20/2025 8:49 AM [facility] Potassium 4.0 3.5 - 5.5 mmol/L LAB CHEMISTRY METHOD 06/20/2025 8:49 AM [facility] Chloride 109 96 - 110 mmol/L LAB CHEMISTRY METHOD 06/20/2025 8:49 AM [facility] CO2 28 21 - 32 mmol/L LAB CHEMISTRY METHOD 06/20/2025 8:49 AM [facility] Anion Gap 7 3 - 11 LAB CHEMISTRY METHOD 06/20/2025 8:49 AM [facility] Glucose 108(H) 70 - 100 mg/dL LAB CHEMISTRY METHOD 06/20/2025 8:49 AM [facility] BUN 29(H) 5 - 25 mg/dL LAB CHEMISTRY METHOD 06/20/2025 8:49 AM [facility] Creatinine 1.44(H) 0.70 - 1.30 mg/dL LAB CHEMISTRY METHOD 06/20/2025 8:49 AM [facility] eGFR 48(L) >=60 mL/min/1. 73m2 LAB CHEMISTRY METHOD 06/20/2025 8:49 AM [facility] Comment:Calculation based on the Chronic Kidney Disease Epidemiology Collaboration (CKD-EPI) equation refit without adjustment for race. BUN/Creatinine Ratio 20.1 LAB CHEMISTRY METHOD 06/20/2025 8:49 AM EDT [facility] Calcium 8.9 8.5 - 10.5 mg/dL LAB CHEMISTRY METHOD 06/20/2025 8:49 AM EDT [facility] Blood Venous blood specimen / Unknown Venipuncture / Unknown 06/20/2025 6:12 AM EDT 06/20/2025 7:51 AM EDT Rashid CHACON LAB BLOOD ORDERABLES Final Resu lt Performing Organization Address City/[facility]/ZIP Co de Phone Number [facility] [address] [place] [address], [place] [phone] * (ABNORMAL) POCT Glucose, blood (06/19/2025 10:49 PM EDT) Glucose POCT 128(H) 70 - 100 mg/dL 06/19/2025 10:50 PM EDT [facility] Blood Capillary blood specimen / Unknown 06/19/2025 10:49 PM EDT 06/19/2025 10:51 PM EDT Kerry Ji MD LAB POINT OF CARE TE ST DOCKED DEVICE UNSOLICITED RESULTS Final Result Performing Organization Address [facility]/ZIP Co de Phone Number [facility] [address] [place] [address], [place] [phone] * C-reactive protein (06/19/2025 12:29 PM EDT) C-Reactive Protein 0.47 <=0.50 mg/dL LAB CHEMISTRY METHOD 06/19/2025 7:28 PM EDT [facility] Blood Venous blood specimen / Unknown Venipuncture / Unknown 06/19/2025 12:29 PM EDT 06/19/2025 1:28 PM EDT us Rashid CHACON LAB BLOOD ORDERABLES Final Resu lt [facility] [address] [place] [address], [place] [phone] * (ABNORMAL) CBC auto differential (06/19/2025 12:29 PM EDT) WBC 7.5 4.8 - 10.8 K/mcL LAB HEMETOLOGY METHOD 06/19/2025 1:36 PM EDT [facility] RBC 3.40(L) 4.50 - 5.50 M/mcL LAB HEMETOLOGY METHOD 06/19/2025 1:36 PM EDT [facility] Hemoglobin 11.0(L) 13.5 - 17.5 g/dL LAB HEMETOLOGY METHOD 06/19/2025 1:36 PM EDT [facility] Hematocrit 34.7(L) 42.0 - 54.0 % LAB HEMETOLOGY METHOD 06/19/2025 1:36 PM EDT [facility] MCV 102.1(H) 79.0 - 98.0 FL LAB HEMETOLOGY METHOD 06/19/2025 1:36 PM EDT [facility] MCH 32.4(H) 27.0 - 32.0 pcg LAB HEMETOLOGY METHOD 06/19/2025 1:36 PM EDT [facility] MCHC 31.7(L) 32.0 - 37.0 g/dL LAB HEMETOLOGY METHOD 06/19/2025 1:36 PM EDT [facility] RDW 17.4(H) 11.0 - 15.0 % LAB HEMETOLOGY METHOD 06/19/2025 1:36 PM EDT [facility] Platelets 232 130 - 400 K/mcL LAB HEMETOLOGY METHOD 06/19/2025 1:36 PM EDT [facility] MPV 9.8 7.0 - 11.0 FL LAB HEMETOLOGY METHOD 06/19/2025 1:36 PM EDT [facility] NRBC 0.0 <1.0 % LAB HEMETOLOGY METHOD 06/19/2025 1:36 PM EDT [facility] NRBC Absolute 0.00 <0.10 K/mcL LAB HEMETOLOGY METHOD 06/19/2025 1:36 PM EDT [facility] Neutrophils Relative 51.7 % LAB HEMETOLOGY METHOD 06/19/2025 1:36 PM EDT [facility] Lymphocytes Relative 28.9 % LAB HEMETOLOGY [facility] 06/19[facility]25 [facility] Monocytes Relative 13.2 % LAB HEMETOLOGY METHOD 06/19/2025 1:36 PM [facility] Eosinophils Relative 5.4 % LAB HEMETOLOGY METHOD 06/19/2025 1:36 PM [facility] Basophils Relative 0.5 % LAB HEMETOLOGY METHOD 06/19/2025 1:36 PM [facility] Immature Granulocytes Relative 0.3 % LAB HEMETOLOGY METHOD 06/19/2025 1:36 PM [facility] Neutrophils Absolute 3.86 1.50 - 7.00 K/mcL LAB HEMETOLOGY METHOD 06/19/2025 1:36 PM EDT [facility] Lymphocytes Absolute 2.15 1.00 - 5.00 K/mcL LAB HEMETOLOGY METHOD 06/19/2025 1:36 PM EDT [facility] Monocytes Absolute 0.98 0.20 - 1.00 K/mcL LAB HEMETOLOGY METHOD 06/19/2025 1:[facility] Eosinophils Absolute 0.40 0.00 - 0.50 K/mcL LAB HEMETOLOGY METHOD 06/19/2025 1:36 PM EDT [facility] Basophils Absolute 0.04 0.00 - 0.20 K/[facility] LAB HEMETOLOGY METHOD 06/19/2025 1:36 PM EDT [facility] Immature Granulocytes Absolute 0.02 0.00 - 0.03 K/[facility] LAB HEMETOLOGY METHOD 06/19/2025 1:36 PM EDT [facility] Blood Venous blood specimen / Unknown Venipuncture / Unknown 06/19/2025 12:29 PM EDT 06/19/2025 1:28 PM EDT Naveen Dickinson MD LAB BLOOD ORDERABLES Final Resul t Performing Organization Address [facility]/ZIP Co de Phone Number [facility] [address] [place] [address], [place] [phone] * Type and screen (06/19/2025 12:29 PM EDT) ABO Group O 06/19/2025 2:10 PM EDT [facility] Rh Type Positive 06/19/2025 2:10 PM EDT [facility] Antibody Screen Negative 06/19/2025 2:10 PM EDT [facility] Blood Venous blood specimen / Unknown Venipuncture / Unknown 06/19/2025 12:29 PM EDT 06/19/2025 1:28 PM EDT us Naveen Dickinson MD LAB BLOOD BANK TEST ORDERABLES F inal Result [facility] [address] [place] [address], [place] [phone] * (ABNORMAL) Basic metabolic panel (06/19/2025 12:29 PM EDT) Sodium 143 133 - 145 mmol/L LAB CHEMISTRY METHOD 06/19/2025 1:55 PM EDT [facility] Potassium 4.4 3.5 - 5.5 mmol/L LAB CHEMISTRY METHOD 06/19/2025 1:55 PM T [facility] Chloride 110 96 - 110 mmol/L LAB CHEMISTRY METHOD 06/19/2025 1:55 PM [facility] CO2 28 21 - 32 mmol/L LAB CHEMISTRY METHOD 06/19/2025 1:55 PM [facility] Anion Gap 5 3 - 11 LAB CHEMISTRY METHOD 06/19/2025 1:55 PM [facility] Glucose 118(H) 70 - 100 mg/dL LAB CHEMISTRY METHOD 06/19/2025 1:55 PM [facility] BUN 31(H) 5 - 25 mg/dL LAB CHEMISTRY METHOD 06/19/2025 1:55 PM [facility] Creatinine 2.01(H) 0.70 - 1.30 mg/dL LAB CHEMISTRY METHOD 06/19/2025 1:55 PM [facility] eGFR 32(L) >=60 mL/min/1. 73m2 LAB CHEMISTRY METHOD 06/19/2025 1:55 PM [facility] Comment:Calculation based on the Chronic Kidney Disease Epidemiology Collaboration (CKD-EPI) equation refit without adjustment for race. BUN/Creatinine Ratio 15.4 LAB CHEMISTRY METHOD 06/19/2025 1:55 PM [facility] Calcium 9.1 8.5 - 10.5 mg/dL LAB CHEMISTRY METHOD 06/19/2025 1:55 PM [facility] Blood Venous blood specimen / Unknown Venipuncture / Unknown 06/19/2025 12:29 PM EDT 06/19/2025 1:28 PM EDT us Naveen Dickinson MD LAB BLOOD ORDERABLES Final Resul t [facility] [address] [place] [address], documented in this encounter Visit Diagnoses Diagnosis [...] (Given - Provider: Angel Abdi RN) 0829 ([facility] Hold - Provider: Automatic Transfer Provider - Reason: Patient not available)110 ([facility] Unhold - Provider: Automatic Transfer Provider)2128 (Given - Provider: Angel Abdi, RN) atorvastatin (LIPITOR) tablet 80 mg 80 mg, oral, Nightly, First dose on Wed06/19/25 at 2099 2110 (Given - Provider: Angel Abdi RN) 0829 ([facility] Hold - Provider: Automatic Transfer Provider - Reason: Patient not available)110 ([facility] Unhold - Provider: Automatic Transfer Provider)2128 (Given - Provider: Angel Abdi, GLO) furosemide (LASIX) tablet 20 mg 20 mg, oral, Daily, First dose on Wed06/19/25 at 1945 0800 (Given - Provider: Tania Miller RN) 0829 ([facility] Hold - Provider: Automatic Transfer Provider - Reason: Patient not available)0900 (Not Given - Provider: Veronica Michelle RN - Reason: Patient not available)110 ([facility] Unhold - Provider: Automatic Transfer Provider) 0815 (Given - Provider: Eli Barr, GLO) gabapentin (NEURONTIN) capsule 100 mg 100 mg, oral, Nightly, First dose on Wed06/19/25 at 2099 2110 (Given - Provider: Angel Abdi RN) 0829 ([facility] Hold - Provider: Automatic Transfer Provider - Reason: Patient not available)110 ([facility] Unhold - Provider: Automatic Transfer Provider)2128 (Given [...] 0147 (Stopped - Provider: Angel Abdi RN)0829 ([facility] Hold - Provider: Automatic Transfer Provider - Reason: Patient not available)110 ([facility] Unhold - Provider: Automatic Transfer Provider)8 (New [...] Do not crush, chew, or split. 0829 ([facility] Hold - Provider: Automatic Transfer Provider - Reason: Patient not available)1109 ([facility] Unhold - Provider: Automatic Transfer Provider) dextrose (D50W) 50% injection 12.5 g 12.5 g, intravenous, Every 15 min PRN, low blood sugar, moderate hypoglycemia *Patient is Unconscious, NPO, unable to swallow: BG 54 - 69 mg/dl*, Starting on Wed06/19/25 at 1927 0829 ([facility] Hold - Provider: Automatic Transfer Provider - Reason: Patient not available)1109 ([facility] Unhold - Provider: Automatic Transfer Provider) dextrose (D50W) 50% injection 25 g 25 g, intravenous, Every 15 min PRN, low blood sugar, severe hypoglycemia *Patient is Unconscious, NPO, unable to swallow: BG LESS than 54 mg/dL*, Starting on Wed06/19/25 at 1927 0829 ([facility] Hold - Provider: Automatic Transfer Provider - Reason: Patient not available)1109 ([facility] Unhold - Provider: Automatic Transfer Provider) dextrose 15 gram/60 mL oral solution 15 g 15 g, oral, Every 15 min PRN, low blood sugar, hypoglycemia *Patient conscious AND able to drink and swallow safely*, Starting on Wed06/19/25 at 1927 0829 ([facility] Hold - Provider: Automatic Transfer Provider - Reason: Patient not available)1109 ([facility] Unhold - Provider: Automatic Transfer Provider) dextrose 15 gram/60 mL oral solution 30 g 30 g, oral, Every 15 min PRN, low blood sugar, hypoglycemia *Patient conscious AND able to drink and swallow safely*, Starting on Wed06/19/25 at 1927 0829 ([facility] - Provider: Automatic Transfer Provider - Reason: Patient not available)1109 ([facility] Unhold - Provider: Automatic Transfer Provider) glucagon HCL injection 1 mg 1 mg, intramuscular, Once as needed, low blood sugar, severe hypoglycemia, Starting on Wed06/21/25 at 0857, For 1 dose 0829 ([facility] Hold - Provider: Automatic Transfer Provider - Reason: Patient not available)1109 ([facility] Unhold - Provider: Automatic Transfer Provider) hydrALAZINE (APRESOLINE) injection 10 mg 10 mg, intravenous, Every 6 hours PRN, systolic BP greater than:, SBP >170 or DBB >95mmHg, Starting on Wed06/22/25 at [phone] (Given - Provider: Angel Abdi RN - Comment: 174/80) 0829 ([facility] Hold - Provider: Automatic Transfer Provider - Reason: Patient not available)1109 ([facility] Unhold - Provider: Automatic Transfer Provider) HYDROmorphone [...] 0444 (Given - Provider: Angel Abdi, RN)0829 ([facility] Hold - Provider: Automatic Transfer Provider - Reason: Patient not available)1109 ([facility] Unhold - Provider: Automatic Transfer Provider) 0116 [...] up to 10 doses (0.4 mg) 08 ([facility] Hold - Provider: Automatic Transfer Provider - Reason: Patient not available)1109 ([facility] Unhold - Provider: Automatic Transfer Provider) ondansetron (PF) (ZOFRAN) injection 4 mg(Linked Group 1) 4 mg, intravenous, Every 8 hours PRN, vomiting, nausea, Starting on Wed06/19/25 at 1926, -ONLY give IV if patient is unable to take orally. -If inadequate response within 30 minutes, proceed to next-line agent or contact provider if no further options ordered. 0829 ([facility] Hold - Provider: Automatic Transfer Provider - Reason: Patient not available)1109 ([facility] Unhold - Provider: Automatic Transfer Provider) ondansetron [...] allow tablet to dissolve on tongue. 0829 ([facility] Hold - Provider: Automatic Transfer Provider - [...] 06/19/2025 documented in this encounter Care Teams Sap Trainer Relationship Specialty Start Date End Date Diana Corona PA [address] [place] [address] PCP - General Physician Supervisor Kennel 04/10/25 documented as of this encounter
--- NOTE | 2025-06-29 12:06 | HO.NEPHOV_ITS ---
Vital Signs 06/29/25 12:11 Height 5 ft 8 in Weight 180 lb BMI 27.4 BP 136/64 Blood Pressure Location Rt brachial Position Sitting Pulse 70 Pulse Source Pulse Oximeter Pulse Oximetry (%) 98 Oxygen Delivery Method Room Air Intake Visit Reasons: 4mon follow-up w/labs-Conf Senior Oracle Applications Developer Required: No Accompanied by: Spouse Allergies Iodinated Contrast Media (IV Dye, Iodine Containing) Allergy (Severe, Verified 06/29/25 12:10) SWELLING sulfamethoxazole (From Bactrim) Allergy (Severe, Verified 06/29/25 12:10) SWELLING RASH tetracycline (Tetracycline) Allergy (Severe, Verified 06/29/25 12:10) SWELLING , RASH trimethoprim (From Bactrim) Allergy (Severe, Verified 06/29/25 12:10) SWELLING RASH Sulfa (Sulfonamide Antibiotics) Allergy (Unknown, Verified 06/29/25 12:10) hives IVP dye Allergy (Unknown, Uncoded 06/08/25 09:59) Anaphylaxis Renée Dry Allergy (Unknown, Uncoded 06/08/25 09:59) rash tetracycline Allergy (Unknown, Uncoded 06/08/25 09:59) hives HPI Comments Details: Mark Anthony was seen in the office in follow-up of his chronic kidney disease and hypertension. He is known to have cardiomyopathy. He does not have any worsening pedal edema, chest pain, shortness of breath, proximal nocturnal dyspnea or orthopnea.He had AAA repair May 2024. He is S/P R BKA. His serum creatinine has been stable. [facility] Medical History Amputation below knee Macrocytic anemia Anemia Skin cancer Hx of cardiac pacemaker Below-knee amputation of right lower extremity PAD (peripheral artery disease) CAD (coronary artery disease) Aneurysm of left leg Surgery, elective Obesity due to excess calories Hx of aneurysm Hx of myocardial infarction Carpal tunnel syndrome Throat cancer Ischemic colitis Pacemaker Diverticulitis BPH (benign prostatic hyperplasia) Type 2 diabetes mellitus with chronic kidney disease Chronic kidney disease, stage 3 Type 2 diabetes mellitus with diabetic polyneuropathy Essential hypertension Hyperlipidemia LDL goal <70 Surgical History History of amputation of foot History of amputation of toe History of back surgery H/O neck surgery History of prostate surgery Hx of angioplasty Hx of hernia repair Hx of tonsillectomy Family History Father Prostate cancer Mother Breast cancer Diabetes Social History Household Members: Spouse Alcohol intake: never Patient Tobacco Use Status: Former Tobacco user Tobacco use type: Cigarette Years Smoked: 40 e-Cigarette/Vaping Use: Never Used Second Hand Smoke Exposure: No Cognitive needs: No Hearing needs: No Vision needs: No Review of Systems Const All systems reviewed & are unremarkable except as noted in HPI and below Physical Exam Const General: comfortable and no acute distress Orientation/consciousness: patient oriented x3 HEENT Head: Yes normocephalic Mouth: Normal oral and palatal mucosa present Eyes EOM: EOMs intact bilaterally Neck Neck: Yes supple Resp Auscultation: clear to auscultation bilaterally Cardio Jugular venous distension: no JVD Rate: regular rate GI Palpation (GI): Soft to palpation Auscultation: normal bowel sounds General: Yes no CVA tenderness Back/Spine/Pelvis Back: no CVA tenderness Skin General skin exam: no rashes or lesions noted Neuro General: patient oriented x3 and moves all extremities Extrem General: Yes no pedal edema Results Reviewed Nephrology Results: Hgb, (14.0-18.0) 10.3 g/dl L 06/26/25 WBC, (4.8-10.8) 9.2 X10*3/uL 06/26/25 Plt Count, (160-400) 227 X10*3/uL Δ 06/26/25 Sodium, (135-145) 144 mmol/L 06/26/25 Potassium, (3.3-5.1) 3.8 mmol/L 06/26/25 Chloride, (96-108) 112 mmol/L H 06/26/25 Carbon Dioxide, (22-29) 25 mmol/L 06/26/25 BUN, (9-16) 27 mg/dL H 06/26/25 Creatinine, (0.5-1.4) 1.84 mg/dL H 06/26/25 Calcium, (8.4-10.2) 9.1 mg/dL 06/26/25 PTH Intact, (8.7-77.1) 24.8 pg/mL 06/26/25 Urine Creatinine 82.15 mg/dL 05/01/25 Assessment & Plan Assessment & Plan (1) Essential hypertension: Code(s): I10 - Essential (primary) hypertension Category: Medical (2) CKD stage G3b/A1, GFR 30-44 and albumin creatinine ratio <30 mg/g: Code(s): N18.32 - Chronic kidney disease, stage 3b Category: Medical Plan 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 He is hypertensive and diabetic with cardiomyopathy. His volume status is fair. He does not have any symptoms of hypervolemia. His blood pressure has been at goal. He is a great candidate for [employer]. His last twenty-four urine collection for creatinine clearance was 36 mls/minute. He is avoiding nonsteroidal anti-inflammatory medications. He is on Ozempic. I did not make any other medication changes today but rather ordered follow-up blood work. All his questions were answered. Follow-up appointment given Orders: Orders Blood Urea Nitrogen 4 Months I10 - Essential (primary) hypertension, N18.32 - Chronic kidney disease, stage 3b Creatinine 4 Months I10 - Essential (primary) hypertension, N18.32 - Chronic kidney disease, stage 3b Complete Blood Count Auto Diff 4 Months I10 - Essential (primary) hypertension, N18.32 - Chronic kidney disease, stage 3b Electrolytes 4 Months I10 - Essential (primary) hypertension, N18.32 - Chronic kidney disease, stage 3b Calcium 4 Months I10 - Essential (primary) hypertension, N18.32 - Chronic kidney disease, stage 3b Coding Level of Care Code Est Pt Level 4 (30941) Diagnoses Essential hypertension I10 CKD stage G3b/A1, GFR 30-44 and albumin creatinine ratio <30 mg/g N18.32
[2025-06-29 12:11] VITALS: BP 136/64; PULSE 70; O2SAT 98; BMI 27.4
--- OUTSIDE RECORDS SUMMARY | 2025-06-29 13:45 | XMS_ITS | Encounter Summary ---
Author Organization [facility] Address [address] [place] [address] Phone Care Team Providers Care Grease Remover Name Role Phone Jaya Brock MD Primary Care Provider Encounter Details Date Type Department Care Team (Latest Contact Info) Description 12/11/2020 Ancillary Orders [facility] [address] [facility] 3rd Floor, [address] [place] [address] Kash Boles MD [address] [place] [phone] [email or web address] Sick sinus syndrome Social History Tobacco Use [...] dysfunction documented in this encounter Care Teams Grease Remover Relationship Specialty Start Date End Date Jaya Brock MD [address] [place] [address] PCP - General 09/07/19 documented as of this encounter Additional Source Comments The information contained in this document represents components of the legal health record. It is not the complete legal health record.[facility]
--- OUTSIDE RECORDS SUMMARY | 2025-06-29 13:45 | XMS_ITS | Encounter Summary ---
Author Organization [facility] Address [address] [place] [address] Phone Care Team Providers Care Refrigerated National Truck Driver Name Role Phone Jaya Brock MD Primary Care Provider Encounter Details Date Type Department Care Team (Latest Contact Info) Description 12/11/2020 Ancillary Orders [facility] [address] [facility] 3rd Floor, [address] [place] [address] Kash Boles MD [address] [place] [phone] [email or web address] [email or web address] Sick sinus syndrome Social History Tobacco Use [...] for device: SSS. Examination: Device type: Pacemaker Slate Worker: [employer] Mode: DDDR LRL/UPL: 70/130 bpm Mode switches: 0 High V rates: 0 Thresholds, impedances, and sensing stable. Atrial pacin.6% Ventricular pacin.6% Battery: 2 yrs Additional comments: Device functioning appropriately. Normal device function. Patient to follow-up with Charbel Dai of [facility], will transfer [facility] when requested Report prepared by Saúl Mckeon RN us Kash Boles MD [facility] ORDER АННА Final Result documented in this encounter Visit Diagnoses Diagnosis Sick sinus syndrome Sinoatrial node dysfunction Sick sinus syndrome Sinoatrial node dysfunction documented in this encounter Care Teams Refrigerated National Truck Driver Relationship Specialty Start Date End Date Jaya Brock MD [address] [place] [address] PCP - General 09/07/19 documented as of this encounter Additional Source Comments The information contained in this document represents components of the legal health record. It is not the complete legal health record.[facility]
--- OUTSIDE RECORDS SUMMARY | 2025-06-29 13:46 | XMS_ITS | Encounter Summary ---
Author Organization [facility] Address [address] [place] [address] Phone Care Team Providers Care Clinical Quality Assurance Specialist Name Role Phone Jaya Brock MD Primary Care Provider Encounter Details Date Type Department Care Team (Late st Contact Info) Description 11/26/2020 Ancillary Orders Non-Invasive Cardiology [address] [place] [address] Ulisses Lyn MD [address] [place] [address] [email or web address] Sick sinus syndrome Social History Tobacco Use [...] dysfunction documented in this encounter Care Teams Clinical Quality Assurance Specialist Relationship Specialty Start Date End Date Jaya Brock MD [address] [place] [address] PCP - General 09/07/19 documented as of this encounter Additional Source Comments The information contained in this document represents components of the legal health record. It is not the complete legal health record.[facility]
--- OUTSIDE RECORDS SUMMARY | 2025-06-29 13:46 | XMS_ITS | Encounter Summary ---
Author Organization [facility] [address] Care Team Providers Care Database Programmer Analyst Name Role Phone Diana Corona Primary Care Provider [phone] Reason for Visit * Reason Onset Date Comments Forms/questionnaires 06/27/2025 Encounter Details Date Type Department Care Team ([facility] st Contact Info) Description 06/27/2025 Telephone Vascular Surgery - [place] [address] [facility] [address] [place] [address] Ahmet Banks MD [address] [place] [phone] Social History Tobacco Use Types Packs/Day Years [...] Progress Notes * Guillermo Hendricks MA - 06/27/2025 2:01 PM EDT Put in Dr. Banks's inbox for review and signature. * Reyna Stevens - 06/27/2025 8:36 AM EDT Fax received from [facility] Caregivers with wound care instructions documented in this encounter Plan of Treatment Upcoming Encounters Date Type Department Care Team (Late st Contact Info) Description 07/20/2025 10:00 AM EDT Office Visit Vascular Surgery - [place] [address] [place] [address] Andie Chua PA [address] [place] [address] 06/06/2026 1:30 PM EDT Ancillary Procedure [facility] [address] [place] [address] documented as of this encounter Visit Diagnoses Not on filedocumented in this encounter Care Teams Database Programmer Analyst Relationship Specialty Start Date End Date Diana Corona PA [address] [place] [address] PCP - General Physician Beater Engineer 04/10/25 documented as of this encounter
--- OUTSIDE RECORDS SUMMARY | 2025-06-29 13:46 | XMS_ITS | Clinical Summary ---
Author Organization [facility] Address [address] [place] [address] Phone Care Team Providers Care Gl Accountant Name Role Phone Jaya Brock MD Primary [...] artery disease of b ypass graft of [place] heart with stable angina pectoris 12/30/2017 Overview [...] [place] in September before they leave for [place]. Assessment & Plan (05/24/2019 2:01 PM EDT): [...] routine labs prior to his leaving to [place]. Peripheral vascular disease 12/30/2017 Overview (07/28/2018): 09/2010 [...] EDT) SODIUM 145 133 - 146 mmol/L [facility] CHLORIDE 106 96 - 108 mmol/L [facility] POTASSIUM 4.9 3.3 - 5.1 mmol/L [facility] CO2 26 21 - 35 mmol/L [facility] BUN 31(H) 6 - 19 mg/dL [facility] CREATININE 1.60(H) 0.5 - 1.5 mg/dL [facility] GLUCOSE 134(H) 70 - 99 mg/dL [facility] CALCIUM 9.7 8.4 - 10.3 mg/dL [facility] EGFR 40(L) >59 mL/min/1.7 3m2 [facility] Comment:Estimated glomerular filtration rate calculated using the CKD-EPI equation. ANION GAP 18 10 - 20 mmol/L [facility] Blood 05/01/2020 3:53 PM EDT 05/01/2020 3:55 PM EDT us Jean Lucero MD LAB BLOOD ORDERABLES Final Resu lt [facility] [address] [place] [address] from Last 3 Months or Most Recently Relevant to Health Maintenance Insurance MEDICARE PART A & B [facility] MEDICARE SUPPLEMENT MEDICARE PART A & B [facility] MEDICARE SUPPLEMENT MEDICARE PART A & B Member Subscriber Plan / Payer ( fective 2002-Present) Name:Mark Anthony Omalley Member ID:[id number] Relation to Subscriber:Self Name:Mark Anthony Omalley Subscriber ID:[id number] Payer ID:[id number] Group ID:Not on file Type:Medicare Address: [id number] [facility] MEDICARE SUPPLEMENT MEDICARE PART A & B [facility] MEDICARE SUPPLEMENT MEDICARE PART A & B [facility] MEDICARE SUPPLEMENT MEDICARE PART A & B [employer] MEDICARE SUPPLEMENT MEDICARE PART A & B [employer] MEDICARE SUPPLEMENT MEDICARE PART A & B [employer] MEDICARE SUPPLEMENT MEDICARE PART A & B [employer] MEDICARE SUPPLEMENT Care Teams Gl Accountant Relationship Specialty Start Date End Date Jaya Brock MD [address] [place] [address] PCP - General 09/07/19 Additional Source Comments The information contained in this document represents components of the legal health record. It is not the complete legal health record.[facility]
--- OUTSIDE RECORDS SUMMARY | 2025-06-29 13:46 | XMS_ITS | Encounter Summary ---
Author Organization [facility] Address [address] [place] [address] Phone Care Team Providers Care Area Director Of Home Health Sales Name Role Phone Irving Swift DO Primary Care Provider [phone] Janee Berry MD, MPH Primary Care Provid er Unknown, Unknown Primary Care Provider Jaya Sanchez MD Primary Care Provider Encounter Details Date Type Department Care Team (Latest Contact Info) Description 10/13/2017 Ancillary Orders [facility] [address] [facility] 3rd Floor, [address] [place] [address] Ulisses Lyn MD [address] [place] [address] [email or web address] Complete heart block Social History [...] for device SSS Examination: Device type: pacemaker Asset Management Analyst: MDT Thresholds, impedances, and sensing stable. Mode [...] complete documented in this encounter Care Teams Area Director Of Home Health Sales Relationship Specialty Start Date End Date Irving Swift DO [address] [place] [address] PCP - General 07/22/17 01/18/19 Janee Berry MD, MPH [address] [address] [email or web address] PCP - General Family Medicine 01/19/19 05/23/19 Unknown, Unknown, [address] [place] [address] PCP - General 05/24/19 09/06/19 Jaya Brock MD [address] [place] [address] PCP - General 09/07/19 documented as of this encounter Additional Source Comments The information contained in this document represents components of the legal health record. It is not the complete legal health record.[facility]
--- OUTSIDE RECORDS SUMMARY | 2025-06-29 13:46 | XMS_ITS | Encounter Summary ---
Author Organization [place] [address] Care Team Providers Care Bundle Helper Name Role Phone Diana Corona Primary Care Provider [phone] Encounter Details Date Type Department Care Team (Late st Contact Info) Description 04/22/2025 Lab Requisition [facility] - Main Lab [address] [facility] [place] [address] Frances Meléndez PA [address] [place] [address] Encounter for other general examination [...] AM EDT Office Visit Vascular Surgery - [place] [address] [place] [address] Andie Chua PA [address] [place] [address] 06/06/2026 1:30 PM EDT Ancillary Procedure [facility] - [facility] [address] [facility] [address] [place] [address] documented as of this encounter Procedures Procedure Name Priority Date/Time Associated Diagnosis Comments COMPLETE BLOOD COUNT Routine 04/22/2025 5:53 AM EDT Encounter for other general examination documented in this encounter Results * (ABNORMAL) Complete blood count (04/22/2025 5:53 AM EDT) [facility] Signature WBC 7.2 4.8 - 10.8 K/mcL LAB HEMETOLOGY METHOD 04/22/2025 9:01 AM [facility] RBC 2.30(L) 4.50 - 5.50 M/mcL LAB HEMETOLOGY METHOD 04/22/2025 9:01 AM [facility] Hemoglobin 7.3(L) 13.5 - 17.5 g/dL LAB HEMETOLOGY METHOD 04/22/2025 9:01 AM [facility] Hematocrit 24.2(L) 42.0 - 54.0 % LAB HEMETOLOGY METHOD 04/22/2025 9:01 AM [facility] MCV 106.6(H) 79.0 - 98.0 FL LAB HEMETOLOGY METHOD 04/22/2025 9:01 AM [facility] MCH 32.2(H) 27.0 - 32.0 pcg LAB HEMETOLOGY METHOD 04/22/2025 9:01 AM [facility] MCHC 30.2(L) 32.0 - 37.0 g/dL LAB HEMETOLOGY METHOD 04/22/2025 9:01 AM [facility] RDW 16.8(H) 11.0 - 15.0 % LAB HEMETOLOGY METHOD 04/22/2025 9:01 AM [facility] Platelets 339 130 - 400 K/mcL LAB HEMETOLOGY METHOD 04/22/2025 9:01 AM [facility] MPV 10.0 7.0 - 11.0 FL LAB HEMETOLOGY METHOD 04/22/2025 9:01 AM [facility] NRBC 0.0 <1.0 % LAB HEMETOLOGY METHOD 04/22/2025 9:01 AM EDT [facility] NRBC Absolute 0.00 <0.10 K/mcL LAB HEMETOLOGY METHOD 04/22/2025 9:01 AM EDT [facility] Blood Venous blood specimen / Unknown Venipuncture / Unknown 04/22/2025 5:53 AM EDT 04/22/2025 8:40 AM EDT us Frances CHACON LAB BLOOD ORDERABLES Final Resul t [facility] [address] [place] [address], documented in this encounter Visit Diagnoses Diagnosis [...] documented as of this encounter Care Teams Bundle Helper Relationship Specialty Start Date End Date Diana Corona PA [address] [place] [address] PCP - General Physician Food And Beverage Lead 04/10/25 documented as of this encounter
--- OUTSIDE RECORDS SUMMARY | 2025-06-29 13:46 | XMS_ITS | Encounter Summary ---
Author Organization [facility] Address [address] [facility] [address] [place] [address] Phone Care Team Providers Care Bedspread Inspector Name Role Phone Irving Swift DO Primary Care Provider [phone] Janee Berry MD, MPH Primary Care Provid er Unknown, Unknown Primary Care Provider Jaya Sanchez MD Primary Care Provider Encounter Details Date Type Department Care Team (Late st Contact Info) Description 07/24/2017 Ancillary [facility] [address] [place] [address] Ulisses Lyn MD [address] [facility] [place] [address] [email or web address] Social History Tobacco Use Types Packs/Day Years [...] on filedocumented in this encounter Care Teams Bedspread Inspector Relationship Specialty Start Date End Date Irving Swift DO [address] [place] [address] PCP - General 07/22/17 01/18/19 Janee Berry MD, MPH [address] [facility] [address] [place] [address] [email or web address] PCP - General Family Medicine 01/19/19 05/23/19 Unknown, Unknown, [address] [address] PCP - General 05/24/19 09/06/19 Jaya Brock MD [address] [place] [address] PCP - General 09/07/19 documented as of this encounter Additional Source Comments The information contained in this document represents components of the legal health record. It is not the complete legal health record.[facility]
--- OUTSIDE RECORDS SUMMARY | 2025-06-29 13:46 | XMS_ITS | Clinical Summary ---
Author Organization [address] [facility] Address [address] [place] [address] Phone Care Team Providers Care Administrative Office Manager Name Role Phone Diana Corona Primary Care Provider [phone] Allergies Active Allergy Reactions Criticality Noted Date [...] flash glucose scanning reader (FreeStyle Vivek 2 Jarbidge) misc 1 Product by Does not apply [...] mg immediate release tabletIndicatio ns:Amputation stump infection ([facility] V24, [facility] V28) Take 2 tablets (10 [...] 7 days. 7 each 05/26/20 25 2024 collagenase (SantyL) 250 unit/gram [...] Date Non-healing wound of amputat ion stump ([facility] V24, [facility] V28) 06/19/2025 Amputation stump infection ([facility] V24, [facility] V28) 05/21/2025 Anemia 04/11/2025 Chronic renal insufficiency 04/11/2025 Pacemaker 04/11/2025 Chronic obstructive pulmonar y disease ([facility] V24, [facility] V28) 04/11/2025 Gangrene of toe of right foot ([facility] V24, [facility] V28) 02/05/2025 Occlusion of arterial bypass graft ([facility] V24) 10/26/2024 Acute deep vein thrombosis ( DVT) of femoral vein of right lower extremity ([facility] V24, [facility] V28) 10/26/2024 Diabetic neuritis ([facility] V24, [facility] V28) Hypertension 08/29/2024 Lumbar spondylosis 09/22/2022 Overview (08/29/2024): Last Assessment & Plan: Mr. Omalley underwent bilateral radiofrequency ablation on 10/08/2022 at [facility] with some improvement lasting 1 month. He [...] Bacterial pneumonia 04/21/2022 CHF (congestive heart failure) ([facility] V24, [facility] V28) 04/21/2022 Gastrointestinal hemorrhage 04/21/2022 Neuropathy 04/21/2022 SSS (sick sinus syndrome) ([facility] V24, [facility] V28) 04/21/2022 Overview (08/29/2024): Last Assessment & Plan: This is been stable. He is status post pacemaker generator replacement as he was end-of-life. This is working well. He is feeling better now that his heart rates are in the higher range. Acute hypoxemic respiratory failure ([facility] V24, [facility] V28) 04/21/2022 Heart block AV complete ([facility] V24, [facility] V2 8) 04/01/2022 AAA (abdominal aortic aneurysm) ([facility] V24) Overview (08/29/2024): Last Assessment & Plan: He had a repeat echo done recently. This showed no changes when compared to before. He has been followed by vascular surgery. Malignant neoplasm of right vocal cord ([facility] V24, [facility] V28) 11/06/2020 Chronic kidney disease (CKD) stage G3b/A1, moderately decreased glomerular filtration rate (GFR) between 30-44 mL/min/1.73 square meter and albuminuria creatinine ratio les* ([facility] V24, [facility] V28) 11/06/2020 Anxiety 08/09/2020 BPH (benign prostatic hyperplasia) 08/09/2020 Coronary artery disease invo lving [place] heart without angina pectoris 08/09/2020 Overview (08/29/2024): [...] lifestyle choices and diet. Peripheral vascular disease ([facility] V24) 2019 Overview (08/29/2024): Last Assessment & Plan: This is stable. Again this is being followed by Dr. Banks. He states that he will be getting a lower extremity arterial study done in the next couple weeks. ST elevation myocardial infa rction (STEMI) ([facility] V24, [facility] V28) 08/09/2020 Overview (08/29/2024): Last [...] low cholesterol diet and exercise. 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 ([facility] V24, [facility] V28) 08/09/2020 Type 2 diabetes mellitus wit h renal manifestations ([facility] V24, [facility] V28) 08/09/2020 Resolved Problems Problem Noted Date Diagnosed Date Resolved Date Ischemic leg 01/08/2025 04/13/2025 Critical limb ischemia of ri ght lower extremity ([facility] V24, [facility] V28) 01/08/2025 Epistaxis 10/28/2024 10/28/2024 Encounters Date Type Department Care Team Description 06/27/2025 Telephone Vascular Surgery - [place] [address] [phone] Ahmet Banks MD 06/23/2025 8:22 AM EDT Anesthesia Event [facility] OR [address] [place] [phone] Sergio Cadet MD 06/23/2025 8:00 AM EDT - 06/23/2025 9:15 AM EDT Surgery [facility] OR [address] [place] [phone] Ahmet Banks MD DEBRIDEMENT BK AMP APPLICATION OF WOUND VAC 06/20/2025 2:07 PM EDT Anesthesia Event [facility] OR [address] [place] [phone] Bharathi Maguire DO 06/20/2025 1:00 PM EDT - 06/20/2025 2:30 PM EDT Surgery [facility] OR [address] [place] [phone] Ahmet Banks MD RIGHT BKA WOUND DEBRIDEMENT, WASHOUT, VAC PLACEMENT 06/19/2025 2:22 PM EDT - 06/24/2025 2:10 PM EDT Hospital Encounter [facility] Medical Surgical Unit [address] [place] [phone] Irving Lebron MD Wyman, Tim, MD Kokosadze, Estate, MD Non-healing wound of amputation stump ([facility] V24, [facility] V28) (Primary Dx); Amputation stump infection ([facility] V24, [facility] V28) Discharge Disposition: Home-Health Care [facility] 06/15/2025 9:30 AM EDT Office Visit Vascular Surgery [facility] [address] [phone] Ahmet Banks MD S/P BKA (below knee amputation) unilateral, right (CMS/HCC V24, CMS/HCC V28) (Primary Dx) 06/06/2025 2:00 PM EDT Ancillary Procedure [facility] - [facility] [address] 300 [facility] [address] [place] [address] Encounter for adjustment or management of cardiac device 06/06/2025 1:00 PM EDT Office Visit Vascular Surgery [facility] 300 [facility] [address] [place] [address] Mary Lou Barragan PA S/P BKA (below knee amputation) unilateral, right (CMS/HCC V24, CMS/HCC V28) (Primary Dx) 06/05/2025 Telephone Vascular Surgery [facility] 300 [facility] [address] [place] [address] Ahmet Banks MD 05/28/2025 Telephone Vascular Surgery [facility] 300 [facility] [address] [place] [phone] Andie Chua PA 05/23/2025 5:24 PM EDT - 05/26/2025 1:08 PM EDT Hospital Encounter [facility] Medical Surgical Unit [address] [place] [phone] Genaro Sinclair MD Jones, Christopher, MD Alam, Aroosa, MD Amputation stump infection (CMS/HCC V24, CMS/HCC V28) (Primary Dx); Gangrene of toe of right foot (CMS/HCC V24, CMS/HCC V28) Discharge Disposition: Home-Health Care [facility] 05/23/2025 Telephone Vascular Surgery [facility] 300 [facility] [address] [place] [address] Andie Chua PA 05/22/2025 11:15 AM EDT Ancillary Procedure [facility] Cardiology [facility] - [facility] [address] 300 [facility] [address] [place] [phone] 05/21/2025 5:32 PM EDT - 05/22/2025 2:08 PM EDT Hospital Encounter [facility] Urology Unit [address] [place] [phone] Nahid Dumas MD Jones, Christopher, MD Kela, Kashyap Devendrabhai, MD Cellulitis, unspecified cellulitis site (Primary Dx) Discharge Disposition: Home or Self Care 05/21/2025 Telephone [facility] - [address] [place] [phone] Shantimya Divine 05/21/2025 Telephone Vascular Surgery - [place] [address] [place] [phone] Andie Chua PA 05/10/2025 10:30 AM EDT Office Visit Vascular Surgery - [place] [address] [place] [phone] iKnsey Boykin MD PAD (peripheral artery disease) ([facility] V24) (Primary Dx); S/P BKA (below knee amputation) unilateral, right ([facility]/HCC V24, CMS/HCC V28) 04/24/2025 Lab Requisition [facility] Lab [address] [place] [phone] Reyna Ford PA Unspecified atrial fibrillation ([facility]/HCC V24, [facility] V28) 04/23/[address] [facility] [address] [place] [phone] Rikki Rosen PA Encounter for other general examination 04/22/[address] [facility] [address] [place] [phone] Frances Meléndez PA Encounter for other general examination 04/21/[address] [facility] [address] [place] [phone] Frances Meléndez PA Encounter for other general examination 04/19/[address] [facility] [address] [place] [phone] Rikki Rosen PA Encounter for other general examination 04/16/2025 Lab Requisition [facility] [address] [place] [phone] Rikki Rosen PA Encounter for other general examination 04/15/2025 Lab Requisition [facility] [address] [place] [phone] Frances Meléndez PA Encounter for other general examination 04/11/2025 3:36 PM EDT Anesthesia Event [facility] OR [address] [place] [phone] Nathan Lucio DO Kriz, Petra, MD 04/11/2025 3:35 PM EDT - 04/11/2025 5:05 PM EDT Surgery [facility] OR [address] [place] [phone] Ahmet Banks MD RIGHT BELOW KNEE AMPUTATION 04/10/2025 12:30 PM EDT - 04/14/2025 1:09 PM EDT Hospital Encounter [facility] Medical Surgical Unit [address] [place] [phone] Ju Valdez MD Kokosadze, Estate, MD Swelling (Primary Dx); Femoral-popliteal bypass graft occlusion, initial encounter ([facility] V24); 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 ([facility] V24, [facility] V28); Ischemic leg Discharge Disposition: Longterm Facility 04/10/2025 11:30 AM EDT Office Visit Vascular Surgery [facility] [address] [phone] Andie Chua PA PAD (peripheral artery disease) ([facility] V24) (Primary Dx); Infrarenal abdominal aortic aneurysm (AAA) without rupture ([facility] V24); History of amputation of fourth toe ([facility] V24); Critical limb ischemia of right lower extremity ([facility] V24, [facility] V28) 04/10/2025 Telephone Vascular Surgery - [place] [address] [place] [phone] Andie Chua PA from Last 3 Months [...] Site/Laterality Comments KNEE ARTHROSCOPY 2009 Right PROCEDURE: MS ARTHROSCOPY KNEE DIAGNOSTIC W/WO SYNOVIAL BX SPX; COMMENT: Meniscus TURP / TRANSURETHRAL INCISIO N / DRAINAGE PROSTATE 2004 PROCEDURE: HISTORICAL TURP OTHER SURGICAL HISTORY PROCEDURE: MS DUP-SCAN LXTR ART/ARTL BPGS UNI/LMTD STUDY; COMMENT: Angioplasty and stenting of the left leg PACEMAKER IMPLANT PROCEDURE: HISTORICAL PACEMAKER COLONOSCOPY 2011 PROCEDURE: HISTORICAL COLONOSCOPY OTHER SURGICAL HISTORY PROCEDURE: MS BIOPSY OROPHARYNX; COMMENT: Throat cancer had radiation x6 weeks [facility] EYE SURGERY PROCEDURE: HISTORICAL EYE SURGERY; COMMENT: [place] TONSILLECTOMY PROCEDURE: HISTORICAL TONSILLECTOMY OTHER SURGICAL HISTORY PROCEDURE: ---- HEMORRHOIDS ---- HERNIA REPAIR Bilateral PROCEDURE: REPAIR INGUINAL HERNIA CORONARY ARTERY BYPASS GRAFT 1996 PROCEDURE: HISTORICAL CABG; COMMENT: x4 NECK SURGERY PROCEDURE: HISTORICAL NECK SURGERY CARPAL TUNNEL RELEASE Right PROCEDURE: MS NEUROPLASTY &/TRANSPOS MEDIAN NRV CARPAL TUNNE; COMMENT: dr. cazares BACK SURGERY 10/08/2022 Bilateral PROCEDURE: HISTORICAL BACK SURGERY; COMMENT: Bilateral L3, L4 and L5 radiofrequency neurotomy Dr. Sahu OTHER SURGICAL HISTORY 06/15/2023 PROCEDURE: MS SLCTV CATHJ 3RD+ ORD SLCTV ABDL PEL/LXTR BRNCH OTHER SURGICAL HISTORY 06/15/2023 PROCEDURE: MS SLCTV CATHJ EA 2ND+ ORD ABDL PEL/LXTR ART BRNCH OTHER SURGICAL HISTORY 06/15/2023 PROCEDURE: X-RAY EXAM OF ARM/LEG ARTERY OTHER SURGICAL HISTORY 06/15/2023 PROCEDURE: ULTRASOUND GUIDANCE FOR VASCULAR AC OTHER SURGICAL HISTORY 06/01/2024 PROCEDURE: MS EVASC RPR DPLMNT NLBIO-AC-GIWZH NDGFT OTHER SURGICAL HISTORY 06/01/2024 PROCEDURE: MS OPN ILIAC ART EXPOS PROSTH/ILIAC OCCLS EVASC UNI OTHER SURGICAL HISTORY 06/01/2024 PROCEDURE: MS PERQ ACCESS & CLOSURE FEM ART FOR DELIVERY NDGFT OTHER SURGICAL HISTORY 06/01/2024 PROCEDURE: MS REVASC INTRAVASC LITHOTRIPSY OTHER SURGICAL HISTORY 06/28/2024 Left PROCEDURE: MS BYP OTH/THN VEIN FEM-ANT TIBL PST TIBL/PRONEAL Medical History Medical History Date Comments 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 ([facility] V24, [facility] V28) 08/09/2020 DX:Type 2 diabetes mellitus with neurological manifestation ([facility]) CKD (chronic kidney disease) stage 3, GFR 30-59 ml/min ([facility] V24, [facility] V28) 11/06/2020 DX:CKD (chronic kidney disea se) stage 3, GFR 30-59 ml/min ([facility]) Type 2 diabetes mellitus wit h renal manifestations ([facility] V24, [facility] V28) 08/09/2020 DX:Type 2 diabetes mellitus with renal manifestations ([facility]) CAD (coronary artery disease) 08/09/2020 DX :CAD (coronary artery disease); COMMENT: Multiple stenting procedures x 5. Pacemaker 08/09/2020 DX:Pacemaker ST elevation myocardial infa rction (STEMI) ([facility] V24, [facility] V28) 08/09/2020 DX:ST elevation hesham cardial infarction (STEMI) ([facility]) Throat cancer ([facility] V24, [facility] V28) 08/09/2020 DX:Throat cancer ([facility]); COMM ENT: 2020: received RT Hyperlipidemia 08/09/2020 DX:Hyperlipidemi a HTN (hypertension) 08/09/2020 DX:HTN (hyper tension) History of diverticulitis 08/09/2020 DX:His tory of diverticulitis Peripheral vascular disease ([facility] V24) 08/09/2020 DX:Peripheral vascular disea se ([facility]) Diabetic neuritis ([facility] V 24, [facility] V28) 08/09/2020 DX:Diabetic neuritis ([facility]) Gastroesophageal reflux dise ase without [...] AM EDT Office Visit Vascular Surgery - [place] [address] [place] [phone] Andie Chua PA [address] [place] [address] 06/06/2026 1:30 PM EDT Ancillary Procedure [facility] - [facility] [address] [facility] [address] [place] [phone] Health Maintenance Due Date Last Done Comments [...] this topic Medical Devices Implanted Type Area Blind Installer Device Identifier Shelf Expiration Date Model / Serial / Lot Medt-Card Kendell Xt Dr Artis [id number] Implanted: (Quantity not on file) Cardiac Pacemaker [employer] - CARDIAC RHYTH-CRDM KENDELL XT DR ARTIS [id number] / [id number] / Medt-Card Kendell Xt Dr Artis [id number] Implanted: (Quantity not on file) Cardiac Pacemaker [employer] - CARDIAC RHYTH-CRDM KENDELL XT DR ARTIS / [id number] / Hemostat Absorb Surgicel 2x4in Fibrillar - Sn/A - [id number] Implanted:Qty : 1 on 01/17/2025 by Ahmet Banks MD at [facility] Hemostasis Right: Leg [employer] 07/03/20272 / N/A / [id number] Sealant Fibrin Vistaseal 4ml - [id number] - [id number] Implanted:Qty : 1 on 01/17/2025 by Ahmet Banks MD at [facility] Hemostasis Right: Leg [employer] [id number] 07/18/2026 VST04 / [id number] / [id number] Hemostat Absorb 1x2 Surgicel Fibrillar - Sn/A - [id number] Implanted:Qty : 1 on 02/07/2025 by Ahmet Banks MD at [facility] Hemostasis Right: Foot [employer] 07/03/2026 1961 / N/A / [id number] Vein Saphns 50-59cm A B Ab O Blood Type - [id number] - [id number] Implanted:Qty : 1 on 01/17/2025 by Ahmet Banks MD at [facility] [employer] Right: Leg [employer] 04/05/2029 [id number] / [id number] / [id number] Patch Biol Xenosure .8x8cm - Sn/A - [id number] Implanted:Qty : 1 on 01/17/2025 by Ahmet Banks MD at [facility] Vascular Grafts Right: Leg [employer] 12/29/2029 E0.8P8 / N/A / [id number] Procedures Procedure Name Priority Date/Time Associated [...] PM EDT CARDIAC DEVICE CHECK- [facility] CL[facility]- [facility] Routine 06/06/2025 1:59 PM EDT Encounter for [...] 2 diabetes mellitus with peripheral vascular disease ([facility] V24, [facility] V28) TH AN LMA(NO CHARGE) Routine [...] of11 resultswithin the time period is included. [facility] [address] Glucose POCT 111(H) 70 - 100 mg/dL 06/23/2025 9:34 AM EDT [facility] Blood Capillary blood specimen / Unknown 06/23/2025 9:33 AM EDT 06/23/2025 9:35 AM EDT us Kerry Ji MD LAB POINT OF CARE TE ST DOCKED DEVICE UNSOLICITED RESULTS Final Result [facility] [address] [place] [address], * Troponin I high sensitivity (06/23/2025 7:25 AM EDT) Only the most recent of2 resultswithin the time period is included. [facility] [address] High Sensitivity Troponin I 33 <=79 ng/L LAB CHEMISTRY METHOD 06/23/2025 8:18 AM EDT [facility] Blood Venous blood specimen / Unknown Venipuncture / Unknown 06/23/2025 7:25 AM EDT 06/23/2025 7:31 AM EDT Narrative [facility] - 06/23/2025 8:18 AM EDT High levels of biotin in samples may falsely decrease hsTroponin values. Use caution when interpreting hsTroponin results in patients taking biotin who exhibit renal impairment (eGFR <60) or in patients taking more than 20 mg/day of biotin. us Brisa CHACON LAB BLOOD ORDERABLES Final Re sult Performing Organization Address City/[facility]/ZIP Co de Phone Number [facility] [address] [place] [address], [place] [phone] * SST tube (06/23/2025 7:25 AM EDT) Only the most recent of2 resultswithin the time period is included. Extra Tube Hold for add-ons. 06/23/2025 9:01 AM EDT [facility] Comment:Auto resulted. Blood Venous blood specimen / Unknown 06/23/2025 7:25 AM EDT 06/23/2025 7:32 AM EDT us Kerry Ji MD LAB BLOOD ORDERABLES Final R esult Performing Organization Address [facility] Co de Phone Number [facility] [address] [place] [address], [place] [phone] * Lavender tube (06/23/2025 7:25 AM EDT) Only the most recent of2 resultswithin the time period is included. Extra Tube Hold for add-ons. 06/23/2025 9:01 AM EDT [facility] Comment:Auto resulted. Blood Venous blood specimen / Unknown 06/23/2025 7:25 AM EDT 06/23/2025 7:32 AM EDT us Kerry Ji MD LAB BLOOD ORDERABLES Final R esult Performing Organization Address [facility]/ZIP Co de Phone Number [facility] [address] [place] [address], [place] [phone] * (ABNORMAL) CBC auto differential (06/23/2025 6:32 AM EDT) Only the most recent of13 resultswithin the time period is included. WBC 8.4 4.8 - 10.8 K/mcL LAB HEMETOLOGY METHOD 06/23/2025 7:02 AM [facility] RBC 3.20(L) 4.50 - 5.50 M/mcL LAB HEMETOLOGY METHOD 06/23/2025 7:02 AM [facility] Hemoglobin 10.2(L) 13.5 - 17.5 g/dL LAB HEMETOLOGY METHOD 06/23/2025 7:02 AM [facility] Hematocrit 31.2(L) 42.0 - 54.0 % LAB HEMETOLOGY METHOD 06/23/2025 7:02 AM [facility] MCV 99.0(H) 79.0 - 98.0 FL LAB HEMETOLOGY METHOD 06/23/2025 7:02 AM [facility] MCH 32.4(H) 27.0 - 32.0 pcg LAB HEMETOLOGY METHOD 06/23/2025 7:02 AM [facility] MCHC 32.7 32.0 - 37.0 g/dL LAB HEMETOLOGY METHOD 06/23/2025 7:02 AM [facility] RDW 16.9(H) 11.0 - 15.0 % LAB HEMETOLOGY METHOD 06/23/2025 7:02 AM [facility] Platelets 209 130 - 400 K/mcL LAB HEMETOLOGY METHOD 06/23/2025 7:02 AM [facility] MPV 9.5 7.0 - 11.0 FL LAB HEMETOLOGY METHOD 06/23/2025 7:02 AM [facility] NRBC 0.0 <1.0 % LAB HEMETOLOGY METHOD 06/23/2025 7:02 AM [facility] NRBC Absolute 0.00 <0.10 K/mcL LAB HEMETOLOGY METHOD 06/23/2025 7:02 AM [facility] Neutrophils Relative 60.8 % LAB HEMETOLOGY METHOD 06/23/2025 7:02 AM [facility] Lymphocytes Relative 19.9 % LAB HEMETOLOGY METHOD 06/23/2025 7:02 AM [facility] Monocytes Relative 13.4 % LAB HEMETOLOGY METHOD 06/23/2025 7:02 AM [facility] Eosinophils Relative 5.2 % LAB HEMETOLOGY METHOD 06/23/2025 7:02 AM [facility] Basophils Relative 0.5 % LAB HEMETOLOGY METHOD 06/23/2025 7:02 AM [facility] Immature Granulocytes Relative 0.2 % LAB HEMETOLOGY METHOD 06/23/2025 7:02 AM [facility] Neutrophils Absolute 5.12 1.50 - 7.00 K/mcL LAB HEMETOLOGY METHOD 06/23/2025 7:02 AM [facility] Lymphocytes Absolute 1.68 1.00 - 5.00 K/mcL LAB HEMETOLOGY METHOD 06/23/2025 7:02 AM [facility] Monocytes Absolute 1.13(H) 0.20 - 1.00 K/mcL LAB HEMETOLOGY METHOD 06/23/2025 7:02 AM [facility] Eosinophils Absolute 0.44 0.00 - 0.50 K/mcL LAB HEMETOLOGY METHOD 06/23/2025 7:02 AM [facility] Basophils Absolute 0.04 0.00 - 0.20 K/mcL LAB HEMETOLOGY METHOD 06/23/2025 7:02 AM [facility] Immature Granulocytes Absolute 0.02 0.00 - 0.03 K/mcL LAB HEMETOLOGY METHOD 06/23/2025 7:02 AM EDT [facility] Blood Venous blood specimen / Unknown Venipuncture / Unknown 06/23/2025 6:32 AM EDT 06/23/2025 6:42 AM EDT Kerry Ji MD LAB BLOOD ORDERABLES Final R esult Performing Organization Address City/[facility]/ZIP Co de Phone Number [facility] [address] [place] [address], [place] [phone] * Magnesium (06/23/2025 6:31 AM EDT) Only the most recent of2 resultswithin the time period is included. Magnesium 2.0 1.9 - 2.6 mg/dL LAB CHEMISTRY METHOD 06/23/2025 7:14 AM EDT [facility] Blood Venous blood specimen / Unknown Venipuncture / Unknown 06/23/2025 6:31 AM EDT 06/23/2025 6:42 AM EDT Brisa CHACON LAB BLOOD ORDERABLES Final Re sult Performing Organization Address [facility]/ZIP Co de Phone Number [facility] [address] [place] [address], [place] [phone] * (ABNORMAL) Basic metabolic panel (06/23/2025 6:31 AM EDT) Only the most recent of12 resultswithin the time period is included. Sodium 140 133 - 145 mmol/L LAB CHEMISTRY METHOD 06/23/2025 7:14 AM EDT [facility] Potassium 3.6 3.5 - 5.5 mmol/L LAB CHEMISTRY METHOD 06/23/2025 7:14 AM EDT [facility] Chloride 108 96 - 110 mmol/L LAB CHEMISTRY METHOD 06/23[facility]25 7[facility] CO2 27 21 - 32 mmol/L LAB CHEMISTRY METHOD 06/23/2025 7:14 AM [facility] Anion Gap 5 3 - 11 LAB CHEMISTRY METHOD 06/23/2025 7:14 AM [facility] Glucose 104(H) 70 - 100 mg/dL LAB CHEMISTRY METHOD 06/23/2025 7:14 AM [facility] BUN 23 5 - 25 mg/dL LAB CHEMISTRY METHOD 06/23/2025 7:14 AM [facility] Creatinine 1.25 0.70 - 1.30 mg/dL LAB CHEMISTRY METHOD 06/23/2025 7:14 AM [facility] eGFR 56(L) >=60 mL/min/1. 73m2 LAB CHEMISTRY METHOD 06/23/2025 7:14 AM [facility] Comment:Calculation based on the Chronic Kidney Disease Epidemiology Collaboration (CKD-EPI) equation refit without adjustment for race. BUN/Creatinine Ratio 18.4 LAB CHEMISTRY METHOD 06/23/2025 7:14 AM [facility] Calcium 9.1 8.5 - 10.5 mg/dL LAB CHEMISTRY METHOD 06/23/2025 7:14 AM [facility] Blood Venous blood specimen / Unknown Venipuncture / Unknown 06/23/2025 6:31 AM EDT 06/23/2025 6:42 AM EDT us Kerry Ji MD LAB BLOOD ORDERABLES Final R esult [facility] [address] [place] [address], * ECG 12 lead (06/23/2025 5:08 AM EDT) Only the most recent of2 resultswithin the time period is included. Ventricular Rate ECG 70 BPM GEMUSE Atrial Rate 70 BPM GEMUSE P-R Interval 256 ms GEMUSE QRS Duration 116 ms GEMUSE Q-T Interval 432 ms GEMUSE QTc 466 ms GEMUSE T [place] -52 degrees GEMUSE ECG Interpretation AV dual-paced [...] of2 resultswithin the time period is included. Vancomycin Trough 14.5 10.0 - 20.0 mcg/mL LAB CHEMISTRY METHOD 06/21/2025 9:04 PM EDT [facility] Blood Venous blood specimen / Unknown Venipuncture / Unknown 06/21/2025 8:04 PM EDT 06/21/2025 8:09 PM EDT us Andie CHACON LAB BLOOD ORDERABLES Final Res ult [facility] [address] [place] [address], [place] [phone] * TH AN ENDOTRACHEAL(NO CHARGE) (06/20/2025 2:33 PM EDT) Narrative Benja Scott SRNA - 06/20/2025 2:33 PM EDT LISA Daniel [...] LAB CHEMISTRY METHOD 06/20/2025 10:48 AM EDT [facility] Blood Venous blood specimen / Unknown Venipuncture / Unknown 06/20/2025 9:50 AM EDT 06/20/2025 9:56 AM EDT Rashid CHACON LAB BLOOD ORDERABLES Final Resu lt [facility] [address] [place] [address], * (ABNORMAL) CBC - Every 3 Days (06/20/2025 6:12 AM EDT) Only the most recent of5 resultswithin the time period is included. WBC 7.9 4.8 - 10.8 K/mcL LAB HEMETOLOGY METHOD 06/20/2025 8:08 AM EDT [facility] RBC 3.10(L) 4.50 - 5.50 M/[facility] LAB HEMETOLOGY METHOD 06/20/2025 8:08 AM [facility] Hemoglobin 9.8(L) 13.5 - 17.5 g/dL LAB HEMETOLOGY METHOD 06/20/2025 8:08 AM [facility] Hematocrit 31.4(L) 42.0 - 54.0 % LAB HEMETOLOGY METHOD 06/20/2025 8:08 AM [facility] MCV 101.9(H) 79.0 - 98.0 FL LAB HEMETOLOGY METHOD 06/20/2025 8:08 AM [facility] MCH 31.8 27.0 - 32.0 pcg LAB HEMETOLOGY METHOD 06/20/2025 8:08 AM [facility] MCHC 31.2(L) 32.0 - 37.0 g/dL LAB HEMETOLOGY METHOD 06/20/2025 8:08 AM [facility] RDW 17.5(H) 11.0 - 15.0 % LAB HEMETOLOGY METHOD 06/20/2025 8:08 AM [facility] Platelets 194 130 - 400 K/mcL LAB HEMETOLOGY METHOD 06/20/2025 8:08 AM [facility] MPV 9.8 7.0 - 11.0 FL LAB HEMETOLOGY METHOD 06/20/2025 8:08 AM [facility] NRBC 0.0 <1.0 % LAB HEMETOLOGY METHOD 06/20/2025 8:08 AM [facility] NRBC Absolute 0.00 <0.10 K/mcL LAB HEMETOLOGY METHOD 06/20/2025 8:08 AM [facility] Blood Venous blood specimen / Unknown Venipuncture / Unknown 06/20/2025 6:12 AM EDT 06/20/2025 7:52 AM EDT us Andie Toma PA LAB BLOOD ORDERABLES Final Res ult Performing Organization Address City/[facility]/ZIP Co de Phone Number [facility] [address] [place] [address], [place] [phone] * Type and screen (06/19/2025 12:29 PM EDT) Only the most recent of3 resultswithin the time period is included. ABO Group O 06/19/2025 2:10 PM EDT [facility] Rh Type Positive 06/19/2025 2:10 PM EDT [facility] Antibody Screen Negative 06/19/2025 2:10 PM EDT [facility] Blood Venous blood specimen / Unknown Venipuncture / Unknown 06/19/2025 12:29 PM EDT 06/19/2025 1:28 PM EDT Naveen Dickinson MD LAB BLOOD BANK TEST ORDERABLES F inal Result Performing Organization Address [facility] Co de Phone Number [facility] [address] [place] [address], [place] [phone] * C-reactive protein (06/19/2025 12:29 PM EDT) Only the most recent of3 resultswithin the time period is included. C-Reactive Protein 0.47 <=0.50 mg/dL LAB CHEMISTRY METHOD 06/19/2025 7:28 PM EDT [facility] Blood Venous blood specimen / Unknown Venipuncture / Unknown 06/19/2025 12:29 PM EDT 06/19/2025 1:28 PM EDT Rashid CHACON LAB BLOOD ORDERABLES Final Resu lt Performing Organization Address City/[facility]/ZIP Co de Phone Number [facility] [address], [place] [address] [phone] * CARDIAC DEVICE CHECK- IN CLINIC- [facility] (06/06/2025 1:59 PM EDT) Date Time Interrogation Session [id number] CV DEVICE CHECK Implantable Pulse Generator Blind Installer MDT CV DEVICE CHECK Implantable Pulse Generator Type IPG CV DEVICE CHECK Implantable Pulse Generator Model Dellview XT DR MRI CV DEVICE CHECK Implantable Pulse Generator Serial Number [id number] CV DEVICE CHECK Implantable Pulse Generator Implant Date 20220417 CV DEVICE CHECK Battery Status Middle of Service CV DEVICE CHECK Jag Statistic RA Percent Paced 99.20 CV DEVICE CHECK Jag Statistic RV Percent Paced 99.30 CV DEVICE CHECK Atrial Tachy Statistic AT/AF [place] Percent 0.10 CV DEVICE CHECK Lead Channel [...] thresholds reviewed and tested * Presenting Rhythm: AP-YOUTUBER 70 bpm * No consistent R waves @ VVI 30 bpm today * Heart Rate Histograms reviewed * Pacing and Detection Parameters were evaluated Narrative Procedure Note Katia Proctor MD - 06/13/2025 IMPRESSION: Normal In-Office: No Events * Normal Device Function * Alerts or events: None * Battery: MOS, 8.1 years * Sensing, impedance and thresholds reviewed and tested * Presenting Rhythm: AP-YOUTUBER 70 bpm * No consistent R waves [...] mmol/L LAB CHEMISTRY METHOD 05/26/2025 8:39 AM [facility] Potassium 4.1 3.5 - 5.5 mmol/L LAB CHEMISTRY METHOD 05/26/2025 8:39 AM [facility] Chloride 111(H) 96 - 110 mmol/L LAB CHEMISTRY METHOD 05/26/2025 8:39 AM [facility] CO2 25 21 - 32 mmol/L LAB CHEMISTRY METHOD 05/26/2025 8:39 AM [facility] Anion Gap 5 3 - 11 LAB CHEMISTRY METHOD 05/26/2025 8:39 AM [facility] Glucose 102(H) 70 - 100 mg/dL LAB CHEMISTRY METHOD 05/26/2025 8:39 AM [facility] BUN 21 5 - 25 mg/dL LAB CHEMISTRY METHOD 05/26/2025 8:39 AM [facility] Creatinine 1.24 0.70 - 1.30 mg/dL LAB CHEMISTRY METHOD 05/26/2025 8:39 AM [facility] eGFR 57(L) >=60 mL/min/1. 73m2 LAB CHEMISTRY METHOD 05/26/2025 8:39 AM [facility] Comment:Calculation based on the Chronic Kidney Disease Epidemiology Collaboration (CKD-EPI) equation refit without adjustment for race. BUN/Creatinine Ratio 16.9 LAB CHEMISTRY METHOD 05/26/2025 8:39 AM [facility] Calcium 8.7 8.5 - 10.5 mg/dL LAB CHEMISTRY METHOD 05/26/2025 8:39 AM [facility] AST (SGOT) 17 10 - 42 unit/L LAB CHEMISTRY METHOD 05/26/2025 8:39 AM [facility] ALT (SGPT) 11 10 - 60 unit/L LAB CHEMISTRY METHOD 05/26/2025 8:39 AM [facility] Alkaline Phosphatase 49 42 - 121 unit/L LAB CHEMISTRY METHOD 05/26/2025 8:39 AM [facility] Total Protein 5.4(L) 6.0 - 8.0 g/dL LAB CHEMISTRY METHOD 05/26/2025 8:39 AM [facility] Albumin 2.6(L) 3.2 - 5.0 g/dL LAB CHEMISTRY METHOD 05/26/2025 8:39 AM [facility] Total Bilirubin 0.3 0.0 - 1.4 mg/dL LAB CHEMISTRY METHOD 05/26/2025 8:39 AM [facility] Blood Venous blood specimen / Unknown Venipuncture / Unknown 05/26/2025 6:59 AM EDT 05/26/2025 7:36 AM EDT us Aditya Dia MD LAB BLOOD ORDERABLES Final Resul t [facility] [address] [place] [address], [place] [phone] * (ABNORMAL) Creatinine serum (05/25/2025 5:11 PM EDT) [facility] [address] Creatinine 1.50(H) 0.70 - 1.30 mg/dL LAB CHEMISTRY METHOD 05/25/2025 5:51 PM EDT [facility] eGFR 45(L) >=60 mL/min/1. 73m2 LAB CHEMISTRY METHOD 05/25/2025 5:51 PM EDT [facility] Comment:Calculation based on the Chronic Kidney Disease Epidemiology Collaboration (CKD-EPI) equation refit without adjustment for race. Blood Venous blood specimen / Unknown Venipuncture / Unknown 05/25/2025 5:11 PM EDT 05/25/2025 5:16 PM EDT Aditya Dia MD LAB BLOOD ORDERABLES Final Resul t [facility] [address] [place] [address], [place] [phone] * Respiratory virus panel molecular study (05/23/2025 10:23 PM EDT) [facility] [address] Adenovirus Detection by PCR Not Detected Not Detected LAB MICROBIOLOGY METHOD 05/23/2025 11:46 PM EDT [facility] Influenza A PCR Not Detected Not Detected LAB MICROBIOLOGY METHOD 05/23/2025 11:46 PM EDT [facility] Influenza B PCR Not Detected Not Detected LAB MICROBIOLOGY METHOD 05/23/2025 11:46 PM EDT [facility] Coronavirus 229E Not Detected Not Detected LAB MICROBIOLOGY METHOD 05/23/2025 11:46 PM EDT [facility] Coronavirus HKU1 Not Detected Not Detected LAB MICROBIOLOGY METHOD 05/23/2025 11:46 PM EDT [facility] Coronavirus OC43 Not Detected Not Detected LAB MICROBIOLOGY METHOD 05/23/2025 11:46 PM EDT [facility] Coronavirus NL63 Not Detected Not Detected LAB MICROBIOLOGY METHOD 05/23/2025 11:46 PM EDT [facility] Parainfluenza Virus 1 Not Detected Not Detected LAB MICROBIOLOGY METHOD 05/23/2025 11:46 PM EDT [facility] Parainfluenza Virus 2 Not Detected Not Detected LAB MICROBIOLOGY METHOD 05/23/2025 11:46 PM EDT [facility] Parainfluenza Virus 3 Not Detected Not Detected LAB MICROBIOLOGY METHOD 05/23/2025 11:46 PM EDT [facility] Parainfluenza Virus 4 Not Detected Not Detected LAB MICROBIOLOGY METHOD 05/23/2025 11:46 PM EDT [facility] RSV PCR Not Detected Not Detected LAB MICROBIOLOGY METHOD 05/23/2025 11:46 PM EDT [facility] Human Metapneumovirus A and B Not Detected Not Detected LAB MICROBIOLOGY METHOD 05/23/2025 11:46 PM EDT [facility] Rhinovirus/Entero virus Not Detected Not Detected LAB MICROBIOLOGY METHOD 05/23/2025 11:46 PM EDT [facility] Bordetella pertussis Not Detected Not Detected LAB MICROBIOLOGY METHOD 05/23/2025 11:46 PM EDT [facility] Bordetella parapertussis Not Detected Not Detected LAB MICROBIOLOGY METHOD 05/23/2025 11:46 PM EDT [facility] Mycoplasma pneumo by PCR Not Detected Not Detected LAB MICROBIOLOGY METHOD 05/23/2025 11:46 PM EDT [facility] Chlamydia pneumoniae Not Detected Not Detected LAB MICROBIOLOGY METHOD 05/23/2025 11:46 PM EDT [facility] SARS COV-2 Not Detected Not Detected LAB MICROBIOLOGY METHOD 05/23/2025 11:46 PM EDT [facility] Aspirate Nasopharyngeal structure / Unknown Non-blood Collection / Unknown 05/23/2025 10:23 PM EDT 05/23/2025 10:46 PM EDT Narrative [facility] - 05/23/2025 11:46 PM EDT Testing was performed using the SNSplus Respiratory Pathogen PCR Assay. All results must [...] GENERAL ORDERABLES Final Result Performing Organization Address [facility]/ZIP Co de Phone Number [facility] [address] [place] [address], [place] [phone] * Blood Culture, Peripheral #1 (05/23/2025 6:06 PM EDT) Only the most recent of4 resultswithin the time period is included. Culture, Blood No growth at 5 days 05/28/2025 7:01 PM EDT [facility] Blood Venous blood specimen / Unknown Venipuncture / Unknown 05/23/2025 6:06 PM EDT 05/23/2025 6:51 PM EDT Genaro Sinclair MD LAB MICROBIOLOGY - GENERA L ORDERABLES Final Result Performing Organization Address City/[facility]/ZIP Co de Phone Number [facility] [address] [place] [address], [place] [phone] * Lactate, with Reflex (05/23/2025 5:51 PM EDT) LACTIC ACID 1.0 0.4 - 2.0 mmol/L LAB CHEMISTRY METHOD 05/23/2025 7:28 PM EDT [facility] Blood Venous blood specimen / Unknown Venipuncture / Unknown 05/23/2025 5:51 PM EDT 05/23/2025 6:52 PM EDT us Genaro Sinclair MD LAB BLOOD ORDERABLES Rosa Isela l Result [facility] [address] [place] [address], * Cardiac device check - Remote- MURJ (05/22/2025 11:13 AM EDT) Date Time Interrogation Session [id number] CV DEVICE CHECK Type Interrogation Session Remote CV DEVICE CHECK Implantable Pulse Generator Blind Installer MDT CV DEVICE CHECK Implantable Pulse Generator Type IPG CV DEVICE CHECK Implantable Pulse Generator Model [place] XT DR MRI [id number] CV DEVICE CHECK Implantable Pulse Generator Serial Number [id number] CV DEVICE CHECK Implantable Pulse Generator Implant Date 20220417 CV DEVICE CHECK Battery Remaining Longevity 99.0 CV DEVICE CHECK Battery Voltage 3.000 CV D EVICE CHECK Battery GENERAL PURCHASING AGENT Trigger 2.625 CV DEVICE CHECK Battery Status Middle of Service CV DEVICE CHECK Jag Statistic RA Percent Paced 98.99 CV DEVICE CHECK Jag Statistic RV Percent Paced 99.89 CV DEVICE CHECK Atrial Tachy Statistic AT/AF [place] Percent 0.00 CV DEVICE CHECK Lead Channel [...] Mode Switch Rate 171 CV DEVICE CHECK Ajg Setting Maximum Tracking Rate 130 CV DEVICE [...] rhythm reviewed * Heart Rate Histograms reviewed Result [facility] Viri CHACON CV IMPLANTABLE CARDIAC DEVICE MS OCEDURES Final Result * ECG-Annotated (05/22/2025) Provider Onbase MD ECG ORDERABLES Final Result * (ABNORMAL) MRSA molecular study (05/21/2025 10:47 PM EDT) Pathologist [facility] MRSA Screen PCR Detected (A) Not Detected LAB MICROBIOLOGY METHOD 05/22/2025 12:23 AM EDT [facility] Swab Both anterior nares / Unknown Non-blood Collection / Unknown 05/21/2025 10:47 PM EDT 05/21/2025 11:25 PM EDT Cezar Chan MD LAB MICROBIOLOGY - GENERAL ORDERABLES Final Result [facility] [address] [place] [address], * CT Lower Extremity wo Contrast Right (05/21/2025 7:43 PM EDT) Anatomical Region Laterality Modality Lower Extremities Right Computed Tomog lupe 05/21/2025 8:12 PM EDT Impressions 05/21/2025 8:12 PM EDT Impression: 1. Status post below-knee amputation. Soft tissue stranding krexv-oqi-muyw and at the stump with no loculated fluid collection or soft tissue gas. 2. No acute osseous findings 3. Nonacute findings as described. This document has been electronically signed by: Tanisha Trivedi MD on 05/21/2025 20:12:48 Narrative 05/21/2025 8:12 PM EDT INDICATION: infection R BKA CT right lower extremity without contrast Comparison: None provided Findings: Images were obtained from above the hip to sfhgc-sjc-nsbv level. Status post below-knee amputation. Mild stranding in soft tissues ppyva-tbc-yanl and in the stump. No loculated fluid [...] were obtained from above the hip to ciajx-oul-wilu level. Status post below-knee amputation. Mild stranding in soft tissues xowng-ens-ntqz and in the stump. No loculated fluid collection no soft tissue gas. No acute fracture. No dislocation. Mild degenerative changes in the hip. Degenerative changes in the medial tibiofemoral compartment. No erosions. No joint effusion. Atherosclerotic vascular disease. Diverticulosis of the sigmoid colon. IMPRESSION: Impression: 1. Status post below-knee amputation. Soft tissue wawpgyvsiitjqi-kvi-heqq and at the stump with no loculated fluid collection or soft tissue gas. 2. No acute osseous findings 3. Nonacute findings as described. This document has been electronically signed by: Tanisha Trivedi MD on 05/21/2025 20:12:48 Nahid Dumas MD IM CT PROCEDURES Final Result * XR Knee 1-2 Views Right (05/21/2025 7:37 PM EDT) Anatomical Region Laterality Modality Lower Extremities, Knee Right [facility] 05/22/2025 8:44 AM EDT Impressions 05/22/2025 8:46 AM EDT Impression: No acute fracture or dislocation identified. V Wavebettye CHACON ([id number]) -------- FINAL REPORT -------- Dictated By: Sudha De La Rosa Dictated Date: 05/22/2025 08:44 ET Assigned Physician: Sudha De La Rosa Reviewed and Electronically Signed By: Sudha De La Rosa Signed Date: 05/22/2025 08:46 ET Workstation ID: [id number] Transcribed By: Self Edit Transcribed Date: 05/22/2025 [...] acute fracture or dislocation identified. Telerad OSWALDO ([id number]) -------- FINAL REPORT -------- Dictated By: Sudha De La Rosa Dictated Date: 05/22/2025 08:44 ET Assigned Physician: Sudha De La Rosa Reviewed and Electronically Signed By: Sudha De La Rosa Signed Date: 05/22/2025 08:46 ET Workstation ID: [id number] Transcribed By: Self Edit Transcribed Date: 05/22/2025 08:44 ET us Cezar Chan MD IMG XR PROCEDURES Final Res ult * Lactate (05/21/2025 6:44 PM EDT) Only the most recent of4 resultswithin the time period is included. Lactate 1.3 0.4 - 2.0 mmol/L LAB CHEMISTRY METHOD 05/21/2025 8:14 PM EDT [facility] Blood Venous blood specimen / Unknown Venipuncture / Unknown 05/21/2025 6:44 PM EDT 05/21/2025 7:30 PM EDT Nahid Dumas MD LAB BLOOD ORDERABLES Final Resul t [facility] [address] [place] [address], [place] [phone] * XR Chest 2 Views (05/21/2025 5:53 PM EDT) Anatomical Region Laterality Modality Body Radiographic Cristela ging 05/22/2025 8:32 AM EDT Impressions 05/22/2025 8:33 AM EDT Impression: No active pulmonary process identified. Telerad OSWALDO ([id number]) -------- FINAL REPORT -------- Dictated By: Sudha De La Rosa Dictated Date: 05/22/2025 08:32 ET Assigned Physician: Sudha De La Rosa Reviewed and Electronically Signed By: Sudha De La Rosa Signed Date: 05/22/2025 08:33 ET Workstation ID: [id number] Transcribed By: Self Edit Transcribed Date: 05/22/2025 [...] IMPRESSION: Impression: No active pulmonary process identified. Telerad OSWALDO ([id number]) -------- FINAL REPORT -------- Dictated By: Sudha De La Rosa Dictated Date: 05/22/2025 08:32 ET Assigned Physician: Sudha De La Rosa Reviewed and Electronically Signed By: Sudha De La Rosa Signed Date: 05/22/2025 08:33 ET Workstation ID: [id number] Transcribed By: Self Edit Transcribed Date: 05/22/2025 08:32 ET Cezar Chan MD IMG XR PROCEDURES Final Res ult * (ABNORMAL) Vitamin B12 (04/24/2025 6:02 AM EDT) [facility] [address] Vitamin B-12 1,498(H) 250 - 900 pcg/mL LAB CHEMISTRY METHOD 04/24/2025 12:00 PM EDT [facility] Blood Venous blood specimen / Unknown Venipuncture / Unknown 04/24/2025 6:02 AM EDT 04/24/2025 10:02 AM EDT Reyna CHACON LAB BLOOD ORDERABLES Final Re sult Performing Organization Address [facility]/ZIP Co de Phone Number [facility] [address] [place] [address], * (ABNORMAL) Iron and TIBC (04/21/2025 5:38 AM EDT) [facility] [address] Iron 75 50 - 160 mcg/dL LAB CHEMISTRY METHOD 04/21/2025 11:20 AM EDT [facility] TIBC 385 250 - 450 mcg/dL LAB CHEMISTRY METHOD 04/21/2025 11:20 AM EDT [facility] Iron Saturation 19(L) 20 - 50 % LAB CHEMISTRY METHOD 04/21/2025 11:20 AM EDT [facility] Blood Venous blood specimen / Unknown Venipuncture / Unknown 04/21/2025 5:38 AM EDT 04/21/2025 9:48 AM EDT Frances CHACON LAB BLOOD ORDERABLES Final Resul t Performing Organization Address City/[facility]/ZIP Co de Phone Number [facility] [address] [place] [address], * (ABNORMAL) Hemoglobin and hematocrit (04/14/2025 8:25 AM EDT) Hemoglobin 7.1(L) 13.5 - 17.5 g/dL LAB HEMETOLOGY METHOD 04/14/2025 8:42 AM EDT [facility] Hematocrit 23.5(L) 42.0 - 54.0 % LAB HEMETOLOGY METHOD 04/14/2025 8:42 AM EDT [facility] Blood Venous blood specimen / Unknown Venipuncture / Unknown 04/14/2025 8:25 AM EDT 04/14/2025 8:32 AM EDT us Estjessica Ji MD LAB BLOOD ORDERABLES Final R esult [facility] [address] [place] [address], * Tissue exam (04/11/2025 4:09 PM EDT) Pathologist [facility] Final Diagnosis Leg, Right, right below knee amputation: -FIBROCALCIFIC ATHEROSCLEROSIS AND GANGRENE 04/16/2025 3:02 PM EDT [facility] Gross Description A. Leg, Right, [...] the specimen is a consent form authorizing [facility] to dispose of the limb. Oil Rag Washer sections are submitted in six cassettes. 1-skin, soft tissue and muscle from the margin-taken perpendicularly and bone marrow from the margin, 1+ multiple pieces 2-claim service representative bony margins (tibia-one larger piece and tibia-two smaller pieces; en face, red ink use for embedding) and cross-section of peroneal artery, four pieces, following decalcification 3-sections of skin scars and macule towards margin, three pieces 4-previous amputation site and cross-section of anterior vessel with overlying skin including thrombus, two pieces 4-ybrfe-sbevgkxw of the anterior tibial artery, four pieces, following decalcification 8-hglul-jgpilxfn of posterior tibial artery, following decalcification, two pieces TS 04/16/2025 3:02 PM EDT [facility] LAB Disclaimer Unless otherwise specified, all tissue is 10% NB formalin fixed and paraffin embedded. 04/16/2025 3:02 PM EDT [facility] Tissue Structure of right lower limb / Unknown 04/11/2025 4:09 PM EDT 04/12/2025 6:33 AM EDT us Ahmet Banks MD LAB PATHOLOGY ORDERABLES Final Result [facility] [address] [place] [address], * TH AN LMA(NO CHARGE) (04/11/2025 3:48 [...] LAB COAGULATION METHOD 04/11/2025 1:18 PM EDT [facility] Blood Venous blood specimen / Unknown Venipuncture / Unknown 04/11/2025 12:42 PM EDT 04/11/2025 12:56 PM EDT Narrative [facility] - 04/11/2025 1:18 PM EDT Therapeutic range listed is for Unfractionated Heparin. LMW Heparin therapeutic range: 0.50-1.20 IU/mL Ju Valdez MD LAB BLOOD ORDERABLES Final Res ult [facility] [address] [place] [address], [place] [phone] * Light blue tube (04/10/2025 4:37 PM EDT) Extra Tube Hold for add-ons. 04/10/2025 6:01 PM EDT [facility] Comment:Auto resulted. Blood Venous blood specimen / Unknown 04/10/2025 4:37 PM EDT 04/10/2025 4:48 PM EDT us Ju Valdez MD LAB BLOOD ORDERABLES Final Res ult Performing Organization Address [facility]/ZIP Co de Phone Number [facility] [address] [place] [address], [place] [phone] * Creatine kinase (04/10/2025 4:37 PM EDT) Total CK 32 22 - 269 unit/L LAB CHEMISTRY METHOD 04/10/2025 5:20 PM EDT [facility] Blood Venous blood specimen / Unknown Venipuncture / Unknown 04/10/2025 4:37 PM EDT 04/10/2025 4:44 PM EDT us Ju Valdez MD LAB BLOOD ORDERABLES Final Res ult Performing Organization Address [facility] Co de Phone Number [facility] [address] [place] [address], [place] [phone] * Vascular US duplex lower extremity arteries [...] Signed Date: 04/10/2025 14:39 ET Workstation ID: [id number] Transcribed By: Self Edit Transcribed Date: 04/10/2025 [...] Signed Date: 04/10/2025 14:39 ET Workstation ID: [id number] Transcribed By: Self Edit Transcribed Date: 04/10/2025 14:32 ET Ju Valdez MD CV VASCULAR PROCEDURES Final R esult * (ABNORMAL) Activated Partial Thromboplastin Time - STAT (04/10/2025 12:31 PM EDT) aPTT 46.6(H) 24.1 - 39.3 sec LAB COAGULATION METHOD 04/10/2025 3:07 PM EDT [facility] Blood Venous blood specimen / Unknown Venipuncture / Unknown 04/10/2025 12:31 PM EDT 04/10/2025 1:03 PM EDT Joselyn CHACON LAB BLOOD ORDERABLES Fin al Result [facility] [address] [place] [address], [place] [phone] * Prothrombin time with INR (04/10/2025 12:31 PM EDT) Pathologist [facility] Protime 11.5 10.6 - 13.9 sec LAB COAGULATION METHOD 04/10/2025 1:14 PM EDT [facility] INR 0.9 LAB COAGULATION METHOD 04/10/2025 1:14 PM EDT [facility] Blood Venous blood specimen / Unknown Venipuncture / Unknown 04/10/2025 12:31 PM EDT 04/10/2025 1:03 PM EDT us Ju Valdez MD LAB BLOOD ORDERABLES Final Res ult [facility] [address] [place] [address], [place] [phone] * Hemoglobin A1c (03/22/2024) Pathologist [facility] Hemoglobin A1C 6.4 <=6.5 % Blood Venous blood specimen / Unknown Result [facility] Provider LAB BLOOD ORDERABLES Rosa Isela l Result * Urine Albumin Creatinine Ratio (09/08/2023) Pathologist [facility] Urine Albumin Creatinine Ratio Abstracted [facility] Provider HEALTH MAINTENANCE Final Result * (ABNORMAL) Lipid panel (09/08/2023) [facility] [address] LDL/HDL Ratio 4 0 - 4 Triglycerides 249(A) 0 - 150 mg/dL Cholesterol 130 0 - 200 mg/dL HDL 34(A) >=40 mg/dL LDL Cholesterol 47 0 - 100 mg/dL Blood Venous blood specimen / Unknown Result [facility] Provider LAB BLOOD ORDERABLES Rosa Isela l Result * Diabetes Foot Exam (09/07/2023) Pathologist [facility] Diabetes: Annual Foot Exam Abstracted Result [facility] Provider HEALTH MAINTENANCE Final Result from Last 3 Months or Most Recently Relevant to [place] [id number] MEDICARE [facility] Advance Directives Documents on File Type Date Recorded Patient Oil Rag Washer Expl anation DNR (Do Not Resuscitate) 06/25/2025 [...] currently active code status orders. Care Teams Administrative Office Manager Relationship Specialty Start Date End Date Diana Corona PA [address] [place] [address] PCP - General Physician Processing Archivist 04/10/25
--- OUTSIDE RECORDS SUMMARY | 2025-06-29 13:46 | XMS_ITS | Encounter Summary ---
Author Organization [facility] Address [address] [facility] [address] [place] [address] Phone Care Team Providers Care Pc Technician Name Role Phone Irving Swift DO Primary Care Provider [phone] Janee Berry MD, MPH Primary Care Provid er Unknown, Unknown Primary Care Provider Jaya Sanchez MD Primary Care Provider Encounter Details Date Type Department Care Team (Late st Contact Info) Description 10/13/2017 Ancillary Orders Non-Invasive Cardiology [address] [place] [address] Ulisses Lyn MD [address] [place] [address] [email or web address] Complete heart block Social History Tobacco Use [...] Complete heart block Examination: Device type: Pacemaker Display Mechanic: Medtronic Mode: DDDR LRL/URL: 70/130 bpm Thresholds, impedances, and sensing stable. High V rates: 0 Mode switches: 1 brief, <.1% Atrial pacin% Ventricular pacin.4% Battery: 5.5 yrs RA RV LV Sensing Paced 10mV Threshold .75V@.4ms 1.25V@.4ms Impedance 420 ohms 714 ohms Additional comments or changes: Pacemaker functioning appropriately Patient will return for in-office device check in: 6 months Report prepared by Saúl Mkceon RN Ulisses Lyn MD CV CARDIAC SERVICES ORDER АННА Final Result documented in this encounter Visit Diagnoses Diagnosis Complete heart block Atrioventricular block, complete Complete heart block Atrioventricular block, complete documented in this encounter Care Teams Pc Technician Relationship Specialty Start Date End Date Irving Swift DO [address] [place] [address] PCP - General 07/22/17 01/18/19 Janee Berry MD, MPH [address] [address] [email or web address] PCP - General Family Medicine 01/19/19 05/23/19 Unknown, MD Price [address] [address] PCP - General 05/24/19 09/06/19 Jaya Brock MD [address] [place] [address] PCP - General 09/07/19 documented as of this encounter Additional Source Comments The information contained in this document represents components of the legal health record. It is not the complete legal health record.[facility]
--- OUTSIDE RECORDS SUMMARY | 2025-06-29 13:46 | XMS_ITS | Encounter Summary ---
Author Organization [facility] Address [address] [place] [address] Phone Care Team Providers Care Corporate Job Titles Name Role Phone Irving Swift DO Primary Care Provider [phone] Janee Berry MD, MPH Primary Care Provid er Unknown, Unknown Primary Care Provider Jaya Sanchez MD Primary Care Provider Encounter Details Date Type Department Care Team (Latest Contact Info) Description 07/24/2017 Ancillary Orders [facility] [address] [facility] [address] [facility] [place], [place] [id number] Santy Matos, NITIN [address] [place] [address] [address] [place] [address] Diagnosis unknown Social History Tobacco [...] * DEVICE CHECK: PPM REMOTE INTERROGATION WITH PLUMBER ASSISTANT REVIEW (08/22/2018 2:20 PM EST) Narrative Ulisses Moy DO - 08/23/2018 2:09 PM EST Reason for appointment: Remote pacemaker interrogation HPI: Routine 3 month remote pacemaker interrogation. No device related complaints. Indication for device: SSS. Examination: Device type: Pacemaker Bus Company Manager: [employer]tronic Mode: DDDR LRL/UPL: 70/130 bpm Mode [...] unknown documented in this encounter Care Teams Corporate Job Titles Relationship Specialty Start Date End Date Irving Swift DO [address] [place] [address] PCP - General 07/22/17 01/18/19 Janee Berry MD, MPH [address] [place] [address] [email or web address] PCP - General Family Medicine 01/19/19 05/23/19 Unknown, Unknown, [address] [place] [address] PCP - General 05/24/19 09/06/19 Jaya Brock MD [address] [place] [address] PCP - General 09/07/19 documented as of this encounter Additional Source Comments The information contained in this document represents components of the legal health record. It is not the complete legal health record.[facility]
--- OUTSIDE RECORDS SUMMARY | 2025-06-29 13:46 | XMS_ITS | Encounter Summary ---
Author Organization [facility] [place] [address] Care Team Providers Care Scaler Name Role Phone Diana Corona Primary Care Provider [phone] Encounter Details Date Type Department Care Team (Late st Contact Info) Description 04/19/2025 Lab Requisition [facility] - Main Lab [address] [facility] [place] [address] Rikki Rosen PA [address] [phone] Encounter for other general examination Social History [...] AM EDT Office Visit Vascular Surgery - [place] [address] [facility] [address] [place] [address] Andie Chua PA [address] [place] [address] 06/06/2026 1:30 PM EDT Ancillary Procedure [facility] [address] [facility] [address] [place] [address] documented as of this encounter Procedures Procedure Name Priority Date/Time Associated Diagnosis Comments COMPLETE BLOOD COUNT Routine 04/19/2025 6:03 AM EDT Encounter for other general examination BASIC METABOLIC PANEL Routine 04/19/2025 6:03 AM EDT Encounter for other general examination documented in this encounter Results * (ABNORMAL) Complete blood count (04/19/2025 6:03 AM EDT) [facility] Signature WBC 7.5 4.8 - 10.8 K/mcL LAB HEMETOLOGY METHOD 04/19/2025 10:14 AM [facility] RBC 2.30(L) 4.50 - 5.50 M/mcL LAB HEMETOLOGY METHOD 04/19/2025 10:14 AM [facility] Hemoglobin 7.3(L) 13.5 - 17.5 g/dL LAB HEMETOLOGY METHOD 04/19/2025 10:14 AM [facility] Hematocrit 23.7(L) 42.0 - 54.0 % LAB HEMETOLOGY METHOD 04/19/2025 10:14 AM [facility] MCV 104.9(H) 79.0 - 98.0 FL LAB HEMETOLOGY METHOD 04/19/2025 10:14 AM [facility] MCH 32.3(H) 27.0 - 32.0 pcg LAB HEMETOLOGY METHOD 04/19/2025 10:14 AM [facility] MCHC 30.8(L) 32.0 - 37.0 g/dL LAB HEMETOLOGY METHOD 04/19/2025 10:14 AM [facility] RDW 15.9(H) 11.0 - 15.0 % LAB HEMETOLOGY METHOD 04/19/2025 10:14 AM [facility] Platelets 257 130 - 400 K/mcL LAB HEMETOLOGY METHOD 04/19/2025 10:14 AM [facility] MPV 10.4 7.0 - 11.0 FL LAB HEMETOLOGY METHOD 04/19/2025 10:14 AM EDT [facility] NRBC 0.0 <1.0 % LAB HEMETOLOGY METHOD 04/19/2025 10:14 AM EDT [facility] NRBC Absolute 0.00 <0.10 K/mcL LAB HEMETOLOGY METHOD 04/19/2025 10:14 AM EDT [facility] Blood Venous blood specimen / Unknown Venipuncture / Unknown 04/19/2025 6:03 AM EDT 04/19/2025 9:42 AM EDT Rikki CHACON LAB BLOOD ORDERABLES Final R esult [facility] [address] [place] [address], * (ABNORMAL) Basic metabolic panel (04/19/2025 6:03 AM EDT) Sodium 138 133 - 145 mmol/L LAB CHEMISTRY METHOD 04/19/2025 10:54 AM [facility] Potassium 4.4 3.5 - 5.5 mmol/L LAB CHEMISTRY METHOD 04/19/2025 10:54 AM [facility] Chloride 105 96 - 110 mmol/L LAB CHEMISTRY METHOD 04/19/2025 10:54 AM [facility] CO2 28 21 - 32 mmol/L LAB CHEMISTRY METHOD 04/19/2025 10:54 AM [facility] Anion Gap 5 3 - 11 LAB CHEMISTRY METHOD 04/19/2025 10:54 AM [facility] Glucose 99 70 - 100 mg/dL LAB CHEMISTRY METHOD 04/19/2025 10:54 AM [facility] BUN 33(H) 5 - 25 mg/dL LAB CHEMISTRY METHOD 04/19/2025 10:54 AM EDT [facility] Creatinine 1.54(H) 0.70 - 1.30 mg/dL LAB CHEMISTRY METHOD 04/19/2025 10:54 AM EDT [facility] eGFR 44(L) >=60 mL/min/1. 73m2 LAB CHEMISTRY METHOD 04/19/2025 10:54 AM EDT [facility] Comment:Calculation based on the Chronic Kidney Disease Epidemiology Collaboration (CKD-EPI) equation refit without adjustment for race. BUN/Creatinine Ratio 21.4 LAB CHEMISTRY METHOD 04/19/2025 10:54 AM T [facility] Calcium 8.8 8.5 - 10.5 mg/dL LAB CHEMISTRY METHOD 04/19/2025 10:54 AM T [facility] Blood Venous blood specimen / Unknown Venipuncture / Unknown 04/19/2025 6:03 AM EDT 04/19/2025 9:42 AM EDT us Rikki CHACON LAB BLOOD ORDERABLES Final R esult [facility] [address] [place] [address], documented in this encounter Visit Diagnoses Diagnosis [...] documented as of this encounter Care Teams Scaler Relationship Specialty Start Date End Date Diana Corona PA [address] [place] [address] PCP - General Physician Production Support Specialist 04/10/25 documented as of this encounter
--- OUTSIDE RECORDS SUMMARY | 2025-06-29 13:46 | XMS_ITS | Patient Health Record ---
Author Organization [facility] Address [address] [place] [address] Care Team Providers Care Paper Cap Machine Operator Name Role Phone Jeniffer(inactive) Irving DOLAN Primary Care Provider U Jonas Trotter [phone] Allergies Allergen (clinical drug ingredient) Drug/Non Drug [...] Risk Notes Problem Diverticulosis of colon (finding) (681523397) Diverticulosis of colon (without mention of hemorrhage) (562.10) Active confirmed Problem History of polyp of colon (situation) (442381234) Personal history of colonic polyps (V12.72) Active confirmed Problem Screening for malignant neoplasm of colon (306416497) Special screening for malignant neoplasms, colon (V76.51) Active confirmed Plan Of Treatment Future Test Test Name Order Date COLONOSCOPY 12/01/2011 Insurance Providers Payer Name Payer Address Payer Phone Subscriber Number Group Number Insured Name Patient Relationship to Insured Coverage Start Date Coverage End Date MEDICARE OF [place] [address] [place] [address] [id number] [id number] Self - patient is the insured [facility] [address] [place] [address] [id number] MUSTAPHACHERELLE SMITH Self - patient is the insured Medical (General) History Medical History History ICD Code CAD-GA's in 1996 and 2001; multiple cath 's with stents-last time in 2009 Peripheral vascular disease No Diabetes, CVA, lung disease, renal di sease gout HTN hyperlipidemia arthritis back pain colon polyps ischemic colitis as above Surgical History Surgery Date(Month/Year) CABG 1996 Bilateral LE Bypass in 2009 hernia pacemaker back and neck knee
--- OUTSIDE RECORDS SUMMARY | 2025-06-29 13:46 | XMS_ITS | Patient Health Record ---
Author Organization [facility] Address [facility] [place] [address] Care Team Providers Care Entry Level Sales Associate Name Role Phone Jadyn Daniel Primary Care [...] Risk Notes Problem Atherosclerotic heart disease of [place] coronary artery without angina pectoris (608940766050337) Atherosclerotic heart disease of [place] coronary artery without angina pectoris (I25.10) Active confirmed Problem Hypertensive heart disease without congestive heart failure (34061332) Hypertensive heart disease without heart failure (I11.9) Active confirmed Problem Atherosclerosis of coronary artery (767362503) 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 calcified coronary lesion (I25.84) Active confirmed Problem Hyperglycemia due to type 2 diabetes mellitus (734226216438634) Type 2 diabetes mellitus with hyperglycemia, without long-term current use of insulin (E11.65) Active confirmed Problem Laryngitis (20020714) Laryngitis (J04.0) Active confirmed Plan Of Treatment No Information Insurance Providers Payer Name Payer Address Payer Phone Subscriber Number Group Number Insured Name Patient Relationship to Insured Coverage Start Date Coverage End Date MEDICARE PART B [address] [address] [place] [phone] [id number] Mark Anthony Omalley Self - patient is the insured [facility] [address] [place] [address] [id number] Mark Anthony Omalley Self - patient is the insured Medical (General) History Medical History History ICD Code diabetes mellitus Coronary Artery Disease. 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
--- OUTSIDE RECORDS SUMMARY | 2025-06-29 13:46 | XMS_ITS | Patient Health Record ---
Author Organization [facility] Address [address] [facility] [place], [place] [address] Care Team Providers Care Syrup Blender Name Role Phone Irving Swift MD Primary Care Provider Haroon Hatch Unavailable [phone] Allergies Allergen (clinical drug ingredient) Drug/Non Drug [...] Test Name Order Date Hemoglobin A1c 10/18/2015 [id number] NAIL, 1-5 10/18/2015 [id number] Plate 10/18/2015 [id number] SKIN LESIONS, OVER 4 10/18/19 16 [id number]-[id number] DYSTROPHIC NAILS ANY # Insurance Providers Payer Name Payer Address Payer Phone Subscriber Number Group Number Insured Name Patient Relationship to Insured Coverage Start Date Coverage End Date Medicare National [employer]t [employer] [address] [place] [phone] [id number] Lyssa Mark Anthony Self - patient is the insured [email or web address] [address] [place] [address] [id number] Lyssa Mark Anthony Self - patient [...]
--- OUTSIDE RECORDS SUMMARY | 2025-06-29 13:46 | XMS_ITS | Encounter Summary ---
Author Organization [facility] [place] [address] Care Team Providers Care Funeral Service Licensee Name Role Phone Diana Corona Primary Care Provider [phone] Encounter Details Date Type Department Care Team (Late st Contact Info) Description 04/16/2025 Lab Requisition [facility] - Main Lab [address] [facility] [place] [address] Rikki Rosen PA [address] [phone] Encounter for other general examination Social History [...] AM EDT Office Visit Vascular Surgery - [place] [address] [place] [address] Andie Chua PA [address] [place] [address] 06/06/2026 1:30 PM EDT Ancillary Procedure [facility] - [facility] [address] [facility] [address] [place] [address] documented as of this encounter Procedures Procedure Name Priority Date/Time Associated Diagnosis Comments CBC WITH AUTO DIFFERENTIAL Routine 04/16/2025 6:10 AM EDT Encounter for other general examination CBC AND DIFFERENTIAL Routine 04/16/2025 6:10 AM EDT Encounter for other general examination documented in this encounter Results * (ABNORMAL) CBC auto differential (04/16/2025 6:10 AM EDT) [facility] WBC 7.1 4.8 - 10.8 K/mcL LAB HEMETOLOGY METHOD 04/16/2025 12:45 PM EDT [facility] RBC 2.20(L) 4.50 - 5.50 M/mcL LAB HEMETOLOGY METHOD 04/16[facility]2025 12[facility] Hemoglobin 7.2(L) 13.5 - 17.5 g/dL LAB HEMETOLOGY METHOD 04/16/2025 12:45 PM EDT [facility] Hematocrit 23.2(L) 42.0 - 54.0 % LAB HEMETOLOGY METHOD 04/16/2025 12:45 [facility] MCV 105.9(H) 79.0 - 98.0 FL LAB HEMETOLOGY METHOD 04/16/2025 12:45 [facility] MCH 32.9(H) 27.0 - 32.0 pcg LAB HEMETOLOGY METHOD 04/16/2025 12:45 [facility] MCHC 31.0(L) 32.0 - 37.0 g/dL LAB HEMETOLOGY METHOD 04/16/2025 12:[address] [facility] RDW 15.7(H) 11.0 - 15.0 % LAB HEMETOLOGY METHOD 04/16/2025 12:45 [facility] Platelets 198 130 - 400 K/mcL LAB HEMETOLOGY METHOD 04/16/2025 12:45 PM EDT [facility] MPV 10.7 7.0 - 11.0 FL LAB HEMETOLOGY METHOD 04/16/2025 12:45 PM EDT [facility] NRBC 0.0 <1.0 % LAB HEMETOLOGY METHOD 04/16/2025 12:45 PM [facility] NRBC Absolute 0.00 <0.10 K/mcL LAB HEMETOLOGY METHOD 04/16/2025 12:45 PM [facility] Neutrophils Relative 55.2 % LAB HEMETOLOGY METHOD 04/16/2025 12:[address] [facility] Lymphocytes Relative 23.4 % LAB HEMETOLOGY METHOD 04/16/2025 12:[address] [facility] Monocytes Relative 13.6 % LAB HEMETOLOGY METHOD 04/16/2025 12:[address] [facility] Eosinophils Relative 6.9 % LAB HEMETOLOGY METHOD 04/16/2025 12:[address] [facility] Basophils Relative 0.6 % LAB HEMETOLOGY METHOD 04/16/2025 12:[address] [facility] Immature Granulocytes Relative 0.3 % LAB HEMETOLOGY METHOD 04/16/2025 12:[address] [facility] Neutrophils Absolute 3.95 1.50 - 7.00 K/mcL LAB HEMETOLOGY METHOD 04/16/2025 12:45 [facility] Lymphocytes Absolute 1.67 1.00 - 5.00 K/mcL LAB HEMETOLOGY METHOD 04/16/2025 12:45 [facility] Monocytes Absolute 0.97 0.20 - 1.00 K/mcL LAB HEMETOLOGY METHOD 04/16/2025 12:[address] [facility] Eosinophils Absolute 0.49 0.00 - 0.50 K/mcL LAB HEMETOLOGY METHOD 04/16/2025 12:45 PM [facility] Basophils Absolute 0.04 0.00 - 0.20 K/mcL LAB HEMETOLOGY METHOD 04/16/2025 12:45 PM EDT [facility] Immature Granulocytes Absolute 0.02 0.00 - 0.03 K/mcL LAB HEMETOLOGY METHOD 04/16/2025 12:45 PM EDT [facility] Blood Venous blood specimen / Unknown Venipuncture / Unknown 04/16/2025 6:10 AM EDT 04/16/2025 10:48 AM EDT us Rikki CHACON LAB BLOOD ORDERABLES Final R esult [facility] [address] [place] [address], documented in this encounter Visit Diagnoses Diagnosis [...] as of this encounter Care Teams Funeral Service Licensee Relationship Specialty Start Date End Date Diana Corona PA [address] [place] [address] PCP - General Physician Building Materials Sales Attendant 04/10/25 documented as of this encounter
--- OUTSIDE RECORDS SUMMARY | 2025-06-29 13:46 | XMS_ITS | Encounter Summary ---
Author Organization [facility] [place] [address] Care Team Providers Care Parcel Post Delivery Name Role Phone Diana Corona Primary Care Provider [phone] Encounter Details Date Type Department Care Team (Late st Contact Info) Description 04/23/2025 Lab Requisition [facility] - Main Lab 299 [facility] [place] [address] Rikki Rosen PA [address] [phone] Encounter for other general examination Social History [...] AM EDT Office Visit Vascular Surgery - [place] 300 [facility] [address] [place] [address] Andie Chua PA [address] [place] [address] 06/06/2026 1:30 PM EDT Ancillary Procedure [facility] - [facility] 154 300 [facility] 154 [place] [address] documented as of this encounter Procedures Procedure [...] LAB HEMETOLOGY METHOD 04/23/2025 12:36 PM EDT [facility] RBC 2.30(L) 4.50 - 5.50 M/mcL LAB HEMETOLOGY METHOD [facility]25 [facility] Hemoglobin 7.7(L) 13.5 - 17.5 g/dL LAB HEMETOLOGY METHOD 04/23/2025 12:36 PM [facility] Hematocrit 25.3(L) 42.0 - 54.0 % LAB HEMETOLOGY METHOD 04/23/2025 12:36 PM [facility] MCV 108.6(H) 79.0 - 98.0 FL LAB HEMETOLOGY METHOD 04/23/2025 12:36 PM [facility] MCH 33.0(H) 27.0 - 32.0 pcg LAB HEMETOLOGY METHOD 04/23/2025 12:36 PM [facility] MCHC 30.4(L) 32.0 - 37.0 g/dL LAB HEMETOLOGY METHOD 04/23/2025 12:36 PM [facility] RDW 17.2(H) 11.0 - 15.0 % LAB HEMETOLOGY METHOD 04/23/2025 12:36 PM [facility] Platelets 360 130 - 400 K/mcL LAB HEMETOLOGY METHOD 04/23/2025 12:36 PM [facility] MPV 9.8 7.0 - 11.0 FL LAB HEMETOLOGY METHOD 04/23/2025 12:36 PM EDT [facility] NRBC 0.0 <1.0 % LAB HEMETOLOGY METHOD 04/23/2025 12:36 PM EDT [facility] NRBC Absolute 0.00 <0.10 K/mcL LAB HEMETOLOGY METHOD 04/23/2025 12:36 PM EDT [facility] Blood Venous blood specimen / Unknown Venipuncture / Unknown 04/23/2025 6:20 AM EDT 04/23/2025 10:31 AM EDT Rikki CHACON LAB BLOOD ORDERABLES Final R esult [facility] 299 [place] [address], * (ABNORMAL) Basic metabolic panel (04/23/2025 6:20 AM EDT) Sodium 138 133 - 145 mmol/L LAB CHEMISTRY METHOD 04/23/2025 2:56 PM [facility] Potassium 4.3 3.5 - 5.5 mmol/L LAB CHEMISTRY METHOD 04/23/2025 2:56 PM [facility] Chloride 105 96 - 110 mmol/L LAB CHEMISTRY METHOD 04/23/2025 2:56 PM T [facility] CO2 25 21 - 32 mmol/L LAB CHEMISTRY METHOD 04/23/2025 2:56 PM [facility] Anion Gap 8 3 - 11 LAB CHEMISTRY METHOD 04/23/2025 2:56 PM [facility] Glucose 95 70 - 100 mg/dL LAB CHEMISTRY METHOD 04/23/2025 2:56 PM [facility] BUN 36(H) 5 - 25 mg/dL LAB CHEMISTRY METHOD 04/23/2025 2:56 PM EDT [facility] Creatinine 1.68(H) 0.70 - 1.30 mg/dL LAB CHEMISTRY METHOD 04/23/2025 2:56 PM EDT [facility] eGFR 40(L) >=60 mL/min/1. 73m2 LAB CHEMISTRY METHOD 04/23/2025 2:56 PM EDT [facility] Comment:Calculation based on the Chronic Kidney Disease Epidemiology Collaboration (CKD-EPI) equation refit without adjustment for race. BUN/Creatinine Ratio 21.4 LAB CHEMISTRY METHOD 04/23/2025 2:56 PM EDT [facility] Calcium 8.7 8.5 - 10.5 mg/dL LAB CHEMISTRY METHOD 04/23/2025 2:56 PM EDT [facility] Blood Venous blood specimen / Unknown Venipuncture / Unknown 04/23/2025 6:20 AM EDT 04/23/2025 10:31 AM EDT us Rikki CHACON LAB BLOOD ORDERABLES Final R esult [facility] 299 [place] [address], documented in this encounter Visit Diagnoses Diagnosis [...] documented as of this encounter Care Teams Parcel Post Delivery Relationship Specialty Start Date End Date Diana Corona PA [address] [place] [address] PCP - General Physician Industrial Hire Sales Assistant 04/10/25 documented as of this encounter
--- OUTSIDE RECORDS SUMMARY | 2025-06-29 13:46 | XMS_ITS | Encounter Summary ---
Author Organization [facility] [place] [address] Care Team Providers Care Tank House Operator Helper Name Role Phone Diana Corona Primary Care Provider [phone] Encounter Details Date Type Department Care Team (Late st Contact Info) Description 04/15/2025 Lab Requisition [facility] - Main Lab 299 [facility] [place] [address] Frances Meléndez PA 329 [place] [address] Encounter for other general examination [...] AM EDT Office Visit Vascular Surgery - [place] [address] [place] [address] Andie Chua PA [address] [place] [address] 06/06/2026 1:30 PM EDT Ancillary Procedure [facility] - [facility] [address] 300 [facility] 154 [place] [address] documented as of this encounter Procedures Procedure [...] CBC auto differential (04/15/2025 6:42 AM EDT) [facility] WBC 8.2 4.8 - 10.8 K/mcL LAB HEMETOLOGY METHOD 04/15/2025 12:46 PM EDT [facility] RBC 2.20(L) 4.50 - 5.50 M/mcL LAB HEMETOLOGY METHOD 04/15/2025 12:46 PM EDT [facility] Hemoglobin 7.3(L) 13.5 - 17.5 g/dL LAB HEMETOLOGY METHOD 04/15/2025 12:46 PM T [facility] Hematocrit 23.7(L) 42.0 - 54.0 % LAB HEMETOLOGY METHOD 04/15/2025 12:46 PM [facility] MCV 106.3(H) 79.0 - 98.0 FL LAB HEMETOLOGY METHOD 04/15/2025 12:46 PM EDT [facility] MCH 32.7(H) 27.0 - 32.0 pcg LAB HEMETOLOGY METHOD 04/15/2025 12:46 PM [facility] MCHC 30.8(L) 32.0 - 37.0 g/dL LAB HEMETOLOGY METHOD 04/15/2025 12:46 PM [facility] RDW 15.9(H) 11.0 - 15.0 % LAB HEMETOLOGY METHOD 04/15/2025 12:46 PM [facility] Platelets 180 130 - 400 K/mcL LAB HEMETOLOGY METHOD 04/15/2025 12:46 PM [facility] MPV 10.6 7.0 - 11.0 FL LAB HEMETOLOGY METHOD 04/15/2025 12:46 PM [facility] NRBC 0.0 <1.0 % LAB HEMETOLOGY METHOD 04/15/2025 12:46 PM [facility] NRBC Absolute 0.00 <0.10 K/mcL LAB HEMETOLOGY METHOD 04/15/2025 12:46 PM [facility] Neutrophils Relative 65.3 % LAB HEMETOLOGY METHOD 04/15/2025 12:46 PM [facility] Lymphocytes Relative 17.8 % LAB HEMETOLOGY METHOD 04/15/2025 12:46 PM [facility] Monocytes Relative 11.4 % LAB HEMETOLOGY METHOD 04/15/2025 12:46 PM [facility] Eosinophils Relative 4.5 % LAB HEMETOLOGY METHOD 04/15/2025 12:46 PM [facility] Basophils Relative 0.5 % LAB HEMETOLOGY METHOD 04/15/2025 12:46 PM [facility] Immature Granulocytes Relative 0.5 % LAB HEMETOLOGY METHOD 04/15/2025 12:46 PM [facility] Neutrophils Absolute 5.35 1.50 - 7.00 K/mcL LAB HEMETOLOGY METHOD 04/15/2025 12:46 PM [facility] Lymphocytes Absolute 1.46 1.00 - 5.00 K/mcL LAB HEMETOLOGY METHOD 04/15/2025 12:46 PM [facility] Monocytes Absolute 0.93 0.20 - 1.00 K/mcL LAB HEMETOLOGY METHOD 04/15/2025 12:46 PM EDT [facility] Eosinophils Absolute 0.37 0.00 - 0.50 K/mcL LAB HEMETOLOGY METHOD 04/15/2025 12:46 PM EDT [facility] Basophils Absolute 0.04 0.00 - 0.20 K/[facility] LAB HEMETOLOGY METHOD 04/15/2025 12:46 PM EDT [facility] Immature Granulocytes Absolute 0.04(H) 0.00 - 0.03 K/[facility] LAB HEMETOLOGY METHOD 04/15/2025 12:46 PM EDT [facility] Blood Venous blood specimen / Unknown Venipuncture / Unknown 04/15/2025 6:42 AM EDT 04/15/2025 12:05 PM EDT us Frances CHACON LAB BLOOD ORDERABLES Final Resul t Performing Organization Address City/[facility]/ZIP Co de Phone Number [facility] 299 [place] [address], [place] [phone] * Magnesium (04/15/2025 6:42 AM EDT) Pathologist [facility] Magnesium 2.2 1.9 - 2.6 mg/dL LAB CHEMISTRY METHOD 04/15/2025 1:13 PM EDT [facility] Blood Venous blood specimen / Unknown Venipuncture / Unknown 04/15/2025 6:42 AM EDT 04/15/2025 12:05 PM EDT us Frances CHACON LAB BLOOD ORDERABLES Final Resul t [facility] [address] [place] [address], [place] [phone] * (ABNORMAL) Comprehensive metabolic panel (04/15/2025 6:42 AM EDT) Sodium 138 133 - 145 mmol/L LAB CHEMISTRY METHOD 04/15/2025 1:24 PM [facility] Potassium 4.2 3.5 - 5.5 mmol/L LAB CHEMISTRY METHOD 04/15/2025 1:24 PM [facility] Chloride 107 96 - 110 mmol/L LAB CHEMISTRY METHOD 04/15/2025 1:24 PM [facility] CO2 26 21 - 32 mmol/L LAB CHEMISTRY METHOD 04/15/2025 1:24 PM [facility] Anion Gap 5 3 - 11 LAB CHEMISTRY METHOD 04/15/2025 1:24 PM [facility] Glucose 115(H) 70 - 100 mg/dL LAB CHEMISTRY METHOD 04/15/2025 1:24 PM [facility] BUN 28(H) 5 - 25 mg/dL LAB CHEMISTRY METHOD 04/15/2025 1:24 PM [facility] Creatinine 1.49(H) 0.70 - 1.30 mg/dL LAB CHEMISTRY METHOD 04/15/2025 1:24 PM [facility] eGFR 46(L) >=60 mL/min/1. 73m2 LAB CHEMISTRY METHOD 04/15/2025 1:24 PM [facility] Comment:Calculation based on the Chronic Kidney Disease Epidemiology Collaboration (CKD-EPI) equation refit without adjustment for race. BUN/Creatinine Ratio 18.8 LAB CHEMISTRY METHOD 04/15/2025 1:24 PM [facility] Calcium 8.6 8.5 - 10.5 mg/dL LAB CHEMISTRY METHOD 04/15/2025 1:24 PM [facility] AST (SGOT) 60(H) 10 - 42 unit/L LAB CHEMISTRY METHOD 04/15/2025 1:24 PM [facility] Comment:Results verified by repeat testing ALT (SGPT) 23 10 - 60 unit/L LAB CHEMISTRY METHOD 04/15/2025 1:24 PM [facility] Alkaline Phosphatase 41(L) 42 - 121 unit/L LAB CHEMISTRY METHOD 04/15/2025 1:24 PM EDT [facility] Total Protein 5.9(L) 6.0 - 8.0 g/dL LAB CHEMISTRY METHOD 04/15/2025 1:24 PM EDT [facility] Albumin 2.8(L) 3.2 - 5.0 g/dL LAB CHEMISTRY METHOD 04/15/2025 1:24 PM EDT [facility] Total Bilirubin 0.6 0.0 - 1.4 mg/dL LAB CHEMISTRY METHOD 04/15/2025 1:24 PM EDT [facility] Blood Venous blood specimen / Unknown Venipuncture / Unknown 04/15/2025 6:42 AM EDT 04/15/2025 12:05 PM EDT us Frances CHACON LAB BLOOD ORDERABLES Final Resul t [facility] [address] [place] [address], documented in this encounter Visit Diagnoses Diagnosis [...] documented as of this encounter Care Teams Tank House Operator Helper Relationship Specialty Start Date End Date Diana Corona PA [address] [place] [address] PCP - General Physician Nurse Sitter 04/10/25 documented as of this encounter
--- OUTSIDE RECORDS SUMMARY | 2025-06-29 13:46 | XMS_ITS | Encounter Summary ---
Author Organization [facility] Address [address] [place] [address] Phone Care Team Providers Care Plumbing Inspector Name Role Phone Jaya Brock MD Primary Care Provider Encounter Details Date Type Department Care Team (Late st Contact Info) Description 12/11/2020 Procedure Pass Non-Invasive Cardiology [address] [place] [address] Social History Tobacco Use Types Packs/Day Years [...] on filedocumented in this encounter Care Teams Plumbing Inspector Relationship Specialty Start Date End Date Jaya Brock MD [address] [place] [address] PCP - General 09/07/19 documented as of this encounter Additional Source Comments The information contained in this document represents components of the legal health record. It is not the complete legal health record.[facility]
--- OUTSIDE RECORDS SUMMARY | 2025-06-29 13:46 | XMS_ITS | Encounter Summary ---
Author Organization [facility] [place] [address] Care Team Providers Care Video Game Maker Name Role Phone Diana Corona Primary Care Provider [phone] Encounter Details Date Type Department Care Team (Late st Contact Info) Description 04/24/[address] [facility] - Main Lab [address] [facility] [place] [address] Reyna Ford PA [address] [place] [address] [phone] Unspecified atrial fibrillation (CMS/HCC V24, CMS/HCC V28) [...] AM EDT Office Visit Vascular Surgery - [place] [address] [place] [address] Andie Chua PA [address] [place] [address] 06/06/2026 1:30 PM EDT Ancillary Procedure [facility] - [facility] [address] 300 [facility] 154 [place] [address] documented as of this encounter Procedures Procedure Name Priority Date/Time Associated Diagnosis Comments VITAMIN B12 Routine 04/24/2025 6:02 AM EDT Unspecified atrial fibrillation ([facility] V24, [facility] V28) documented in this encounter Results * (ABNORMAL) Vitamin B12 (04/24/2025 6:02 AM EDT) Vitamin B-12 1,498(H) 250 - 900 pcg/mL LAB CHEMISTRY METHOD 04/24/2025 12:00 PM EDT [facility] Blood Venous blood specimen / Unknown Venipuncture / Unknown 04/24/2025 6:02 AM EDT 04/24/2025 10:02 AM EDT Reyna CHACON LAB BLOOD ORDERABLES Final Re sult [facility] [address] [place] [address], documented in this encounter Visit Diagnoses Diagnosis Unspecified atrial fibrillation (CMS/[facility] V24, [facility] V28) Encounter for adjustment or management of cardiac device documented in this encounter Additional Health Concerns Infection Onset Date Last Indicated Resolved Time 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 05/21/2025 05/21/2025 05/24/2025 7:32 AM E DT Respiratory Rule-Out 05/23/2025 05/23/20252 025 11:46 PM EDT COVID-19 Rule-Out 05/23/2025 05/23/2025 05/23/2025 11:46 PM EDT documented as of this encounter Care Teams Video Game Maker Relationship Specialty Start Date End Date Diana Corona PA [address] [place] [address] PCP - General Physician Imagery Analyst 04/10/25 documented as of this encounter
--- OUTSIDE RECORDS SUMMARY | 2025-06-29 13:46 | XMS_ITS | Encounter Summary ---
Author Organization [facility] [place] [address] Care Team Providers Care Manager Banquet Name Role Phone Diana Corona Primary Care Provider [phone] Encounter Details Date Type Department Care Team (Late st Contact Info) Description 04/21/2025 Lab Requisition [facility] - Main Lab 299 [facility] [place] [address] Frances Meléndez PA [address] [place] [address] Encounter for other general examination [...] AM EDT Office Visit Vascular Surgery - [place] [address] [place] [address] Andie Chua PA [address] [place] [address] 06/06/2026 1:30 PM EDT Ancillary Procedure [facility] - [facility] [address] 300 [facility] 154 [place] [address] documented as of this encounter Procedures Procedure Name Priority Date/Time Associated Diagnosis Comments IRON AND TIBC Routine 04/21/2025 5:38 AM EDT Encounter for other general examination documented in this encounter Results * (ABNORMAL) Iron and TIBC (04/21/2025 5:38 AM EDT) Iron 75 50 - 160 mcg/dL LAB CHEMISTRY METHOD 04/21/2025 11:[address] [facility] TIBC 385 250 - 450 mcg/dL LAB CHEMISTRY METHOD 04/21/2025 11:[address] [facility] Iron Saturation 19(L) 20 - 50 % LAB CHEMISTRY METHOD 04/21/2025 11:[address] [facility] Blood Venous blood specimen / Unknown Venipuncture / Unknown 04/21/2025 5:38 AM EDT 04/21/2025 9:48 AM EDT us Frances CHACON LAB BLOOD ORDERABLES Final Resul t [facility] 299 [place] [address], documented in this encounter Visit Diagnoses Diagnosis [...] documented as of this encounter Care Teams Manager Banquet Relationship Specialty Start Date End Date Diana Corona PA [address] [place] [address] PCP - General Physician Breastfeeding Educator 04/10/25 documented as of this encounter
--- OUTSIDE RECORDS SUMMARY | 2025-06-29 13:46 | XMS_ITS | Encounter Summary ---
Author Organization [facility] Address [address] [facility] [address] [place] [address] Phone Care Team Providers Care Hay Buckler Name Role Phone Irving Swift DO Primary Care Provider [phone] Janee Berry MD, MPH Primary Care Provid er Unknown, Unknown Primary Care Provider Jaya Sanchez MD Primary Care Provider Encounter Details Date Type Department Care Team (Late st Contact Info) Description 10/13/2017 Ancillary [facility] [address] [place] [address] Ulisses Lyn MD 22 [place] [address] [email or web address] Social History Tobacco Use Types Packs/Day Years [...] on filedocumented in this encounter Care Teams Hay Buckler Relationship Specialty Start Date End Date Irving Swift DO [address] [place] [address] PCP - General 07/22/17 01/18/19 Janee Berry MD, MPH [address] [facility] [address] [place] [address] [email or web address] PCP - General Family Medicine 01/19/19 05/23/19 Unknown, Unknown, [address] [address] PCP - General 05/24/19 09/06/19 Jaya Brock MD [address] [place] [address] PCP - General 09/07/19 documented as of this encounter Additional Source Comments The information contained in this document represents components of the legal health record. It is not the complete legal health record.[facility]
--- OUTSIDE RECORDS SUMMARY | 2025-06-29 13:46 | XMS_ITS | Encounter Summary ---
Author Organization [facility] Address [address] [facility] [address] [place] [address] Phone Care Team Providers Care Health Navigator Name Role Phone Irving Swift DO Primary Care Provider [phone] Janee Berry MD, MPH Primary Care Provid er Unknown, Unknown Primary Care Provider Jaya Sanchez MD Primary Care Provider Encounter Details Date Type Department Care Team (Latest Contact Info) Description 07/24/2017 Ancillary Orders [facility] [address] Floor, [address] [place] [address] Ulisses Lyn MD 22 [place] [address] [email or web address] Diagnosis unknown Social History Tobacco Use [...] unknown documented in this encounter Care Teams Health Navigator Relationship Specialty Start Date End Date Irving Swift DO [address] [place] [address] PCP - General 07/22/17 01/18/19 Janee Berry MD, MPH [address] [address] [email or web address] PCP - General Family Medicine 01/19/19 05/23/19 Unknown, Unknown, [address] [address] PCP - General 05/24/19 09/06/19 Jaya Brock MD [address] [place] [address] PCP - General 09/07/19 documented as of this encounter Additional Source Comments The information contained in this document represents components of the legal health record. It is not the complete legal health record.[facility]
--- OUTSIDE RECORDS SUMMARY | 2025-06-29 13:47 | XMS_ITS | Encounter Summary ---
Author Organization [facility] Address [address] [facility] [address] [place] [address] Phone Care Team Providers Care Weatherization Field Technician Name Role Phone Irving Swift DO Primary Care Provider [phone] Janee Berry MD, MPH Primary Care Provid er Unknown, Unknown Primary Care Provider Jaya Sanchez MD Primary Care Provider Encounter Details Date Type Department Care Team (Late st Contact Info) Description 12/28/2018 Ancillary Orders Non-Invasive Cardiology [address] [place] [address] Ulisses Lyn MD [address] [place] [address] [email or web address] Sick sinus syndrome Social History Tobacco Use [...] dysfunction documented in this encounter Care Teams Weatherization Field Technician Relationship Specialty Start Date End Date Irving Swift DO 5 [place] [address] PCP - General 07/22/17 01/18/19 Janee Berry MD, MPH [address] [place] [address] [email or web address] PCP - General Family Medicine 01/19/19 05/23/19 Unknown, Unknown, [address] [place] [address] PCP - General 05/24/19 09/06/19 Jaya Brock MD [address] [place] [address] PCP - General 09/07/19 documented as of this encounter Additional Source Comments The information contained in this document represents components of the legal health record. It is not the complete legal health record.[facility]
--- OUTSIDE RECORDS SUMMARY | 2025-06-29 13:47 | XMS_ITS | Clinical Summary ---
Author Organization [facility] Address [address] [place] [address] Phone Care Team Providers Care Washhouse Worker Name Role Phone Mercy Grewal Primary Care [...] patient's age to complete this topic [place] [address] [place] [address] [address] Medicare Medicare [facility] Care Teams Washhouse Worker Relationship Specialty Start Date End Date Mercy Grewal [address] [place] [address] PCP - General 03/03/23
--- OUTSIDE RECORDS SUMMARY | 2025-06-29 13:47 | XMS_ITS | Encounter Summary ---
Author Organization [facility] Address [address] [place] [address] Phone Care Team Providers Care Truck Driver Helper Name Role Phone Jaya Brock MD Primary Care Provider Encounter Details Date Type Department Care Team (Late st Contact Info) Description 10/12/2020 Procedure Pass Non-Invasive Cardiology [address] [place] [address] Social History Tobacco Use Types Packs/Day Years [...] on filedocumented in this encounter Care Teams Truck Driver Helper Relationship Specialty Start Date End Date Jaya Brock MD [address] [place] [address] PCP - General 09/07/19 documented as of this encounter Additional Source Comments The information contained in this document represents components of the legal health record. It is not the complete legal health record.[facility]
--- OUTSIDE RECORDS SUMMARY | 2025-06-29 13:47 | XMS_ITS | Encounter Summary ---
Author Organization [facility] Address [address] [facility] [address] [place] [address] Phone Care Team Providers Care Enterprise Project Manager Name Role Phone Irving Swift DO Primary Care Provider [phone] Janee Berry MD, MPH Primary Care Provid er Unknown, Unknown Primary Care Provider Jaya Sanchez MD Primary Care Provider Encounter Details Date Type Department Care Team (Late st Contact Info) Description 12/28/2018 Ancillary Orders [facility] [address] [place] [address] Ulisses Lyn MD [address] [place] [address] [place] [address] [email or web address] Social History Tobacco Use Types Packs/Day Years [...] on filedocumented in this encounter Care Teams Enterprise Project Manager Relationship Specialty Start Date End Date Irving Swift DO [address] [place] [address] PCP - General 07/22/17 01/18/19 Janee Berry MD, MPH [address] [facility] [address] [place] [address] [email or web address] PCP - General Family Medicine 01/19/19 05/23/19 Unknown, Unknown, [address] [facility] [address] [place] [address] PCP - General 05/24/19 09/06/19 Jaya Brock MD [address] [place] [id number] PCP - General 09/07/19 documented as of this encounter Additional Source Comments The information contained in this document represents components of the legal health record. It is not the complete legal health record.[facility]
--- OUTSIDE RECORDS SUMMARY | 2025-06-29 13:47 | XMS_ITS ---
Author Organization [address] [facility] Address [address] [place] [address] Phone Care Team Providers Care Welding Machine Operator Submerged Arc Name Role Phone Diana Corona Primary Care Provider [phone] Active Problems Problem Noted Date Diagnosed Date Non-healing wound of amputat ion stump ([facility], [facility]) 06/19/2025 Amputation stump infection ([facility], [facility] V[facility]) 05/21/2025 Anemia 04/11/2025 Chronic renal insufficiency 04/11/2025 Pacemaker 04/11/2025 Chronic obstructive pulmonar y disease ([facility], [facility] V28) 04/11/2025 Gangrene of toe of right foot ([facility], [facility] V[facility]) 02/05/2025 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 Omalley underwent bilateral radiofrequency ablation on 10/08/2022 at [facility] [place] with some improvement lasting 1 month. He [...] Bacterial pneumonia 04/21/2022 CHF (congestive heart failure) ([facility] V[facility], [facility] V[facility]) 04/21/2022 Gastrointestinal hemorrhage 04/21/2022 Neuropathy 04/21/2022 SSS (sick sinus syndrome) ([facility], [facility] V28) 04/21/2022 Overview (08/29/2024): Last Assessment & Plan: This is been stable. He is status post pacemaker generator replacement as he was end-of-life. This is working well. He is feeling better now that his heart rates are in the higher range. Acute hypoxemic respiratory failure ([facility] V24, [facility] V28) 04/21/2022 Heart block AV complete ([facility] V24, [facility] V2 8) 04/01/2022 AAA (abdominal aortic aneurysm) ([facility]) Overview (08/29/2024): Last Assessment & Plan: He had a repeat echo done recently. This showed no changes when compared to before. He has been followed by vascular surgery. 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 Peripheral vascular disease ([facility] V[facility]) 2019 Overview (08/29/2024): Last Assessment & Plan: This is stable. Again this is being followed by Dr. Banks. He states that he will be getting a lower extremity arterial study done in the next couple weeks. ST elevation myocardial infa rction (STEMI) ([facility] V24, [facility] V28) 08/09/2020 Overview (08/29/2024): Last Assessment [...] low cholesterol diet and exercise. 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 Past Plans No past plan information found. Radiation Treatments * No radiation treatments are documented for this patient in [facility]. Treatments may have been administered in another system. Lifetime Dose Tracking * Chemical Lifetime Dose Automatic Entry Manual Entr y Radiation 4,333.74 mGy 0 mGy 4,333.74 mGy Fluoro Time 11.2 minutes 0 minutes 11.2 minutes Resolved Problems Problem Noted Date Diagnosed Date Resolved Date Ischemic leg 01/08/2025 04/13/2025 Critical limb ischemia of ri ght lower extremity ([facility] V[facility], [facility] V28) 01/08/2025 Epistaxis 10/28/2024 10/28/2024
== END 2025-06-29 12:23 | disposition home or self-care (01) ==
LOC: HO.HKA 12:00
PROVIDERS: PCP Student in an Organized Health Care Education/Training Program; Visit Provider Internal Medicine Nephrology
DX: I10 Essential (primary) hypertension (principal); N18.32 Chronic kidney disease, stage 3b
CPT/HCPCS: 99214

== ENCOUNTER → 2025-06-29 11:59 | Outpatient (BNVA) | payer MEDICARE, OTHER, SELFPAY | PROVIDERS: PCP Student in an Organized Health Care Education/Training Program; Visit Provider Internal Medicine Nephrology | DX: E11.22 Type 2 diabetes mellitus with diabetic chronic kidney disease (principal); I12.9 Hypertensive chronic kidney disease with stage 1 through stage 4 chronic kidney disease, or unspecified chronic kidney disease; N18.32 Chronic kidney disease, stage 3b; Z87.891 Personal history of nicotine dependence; Z79.4 Long term (current) use of insulin; I42.9 Cardiomyopathy, unspecified; Z95.0 Presence of cardiac pacemaker; Z89.511 Acquired absence of right leg below knee | CPT/HCPCS: 99212 ==

== ENCOUNTER 2025-08-02 11:07 | Outpatient (AMB) | payer MEDICARE, OTHER, SELFPAY ==
--- NOTE | 2025-08-02 11:19 | MHC.PC.OV ---
Vital Signs 08/02/25 11:27 Height 5 ft 8 in Weight 180 lb BMI 27.4 BP 110/64 Blood Pressure Location Lt brachial Position Sitting Respiration 15 Pulse 70 Pulse Source Pulse Oximeter Temp 97.4 F Temp Source Temporal Artery Scan Pulse Oximetry (%) 96 Oxygen Delivery Method Room Air Intake Visit Reasons: follow up Intake Note: Mark Anthony presents in the office today for a follow up to multiple conditions. Allergies Iodinated Contrast Media (IV Dye, Iodine Containing) Allergy (Severe, Verified 08/03/25 10:04) SWELLING sulfamethoxazole (From Bactrim) Allergy (Severe, Verified 08/03/25 10:04) SWELLING RASH tetracycline (Tetracycline) Allergy (Severe, Verified 08/03/25 10:04) SWELLING , RASH trimethoprim (From Bactrim) Allergy (Severe, Verified 08/03/25 10:04) SWELLING RASH Sulfa (Sulfonamide Antibiotics) Allergy (Unknown, Verified 08/03/25 10:04) hives IVP dye Allergy (Unknown, Uncoded 08/03/25 10:04) Anaphylaxis Renée Dry Allergy (Unknown, Uncoded 08/03/25 10:04) rash tetracycline Allergy (Unknown, Uncoded 08/03/25 10:04) hives Medication List - Last Reconciled 08/02/25 by OSWALDO Roach acetaminophen (Tylenol Extra Strength) 500 mg PO Q6H PRN aspirin 81 mg PO DAILY atenolol 50 mg PO DAILY atorvastatin 80 mg PO BEDTIME blood sugar diagnostic (FreeStyle Lite Strips) 1 strip miscellaneous BID blood-glucose sensor (FreeStyle Vivek 3 Plus Sensor device) Use daily As directed to monitor glucose blood-glucose,chief compliance officer,cont (FreeStyle Vivek 3 [place]) Use daily As directed to monitor blood glucose cyanocobalamin (vitamin B-12) ER 1,000 mcg PO DAILY duloxetine 60 mg PO DAILY fenofibrate nanocrystallized (Tricor) 48 mg PO DAILY ferrous sulfate (Fe-Viktoriya) 7.5 mg PO DAILY foot care products Wear diabetic shoes daily As directed foot care products Diabetic shoes and insoles. Use daily as directed furosemide 20 mg PO DAILY insulin degludec (Tresiba FlexTouch U-200 insulin) 10 units (0.05 mL) subcut .nightly lansoprazole 30 mg PO DAILY lorazepam 0.5 mg PO BID multivitamin (Daily Multi-Vitamin tablet) 1 tab PO DAILY nitroglycerin 0.4 mg sublingual Q5M PRN oxycodone 5 mg PO Q4H PRN pen needle, diabetic (BD Ultra-Fine Micro Pen Needle) As directed; twice daily semaglutide (Ozempic) 2 mg (0.75 mL) subcut QWEEK tapentadol ER (Nucynta ER) 50 mg PO BID Tobacco use date assessed: 08/02/25 Dental Screening Dental Screen Date: 08/02/25 Did you have a dental visit in the last 12 months?: Yes Did you have a dental problem in the last 6 months where you did not have access to dental care?: No Was dental information given to patient?: Patient has dentist HPI HPI Comments History of Present Illness Details This is an 84-year-old male with a past medical history of CKD stage IIIB, skin cancer, throat cancer, PAD, anemia hypertension, hyperlipidemia, type 2 diabetes, CAD and PAD presenting for follow up. He is accompanied by his . He prefers to be called [facility]. Vascular: He follows with vascular surgery from [facility]. Dr. Banks. He had bypass on right leg and 4th right toe amputation (January 2025). He had [id number] amputation of the right lower extremity April 2025. Patient had left lower extremity bypass June 2024. History of aortic aneurysm repair and revision in 2023. He was hospitalized for stump cellulitis May 21 to 05/23/2025 for stump cellulitis. He was admitted again from May 25 to 05/26/2025 after spiking a fever. He was hospitalized again on 06/19/2025 after receiving a call from his vascular surgeon to go to the ED for worsening wound and treated again with antibiotics, wound debridement and VAC placement. Sees wound care every Wednesday at [facility]. VNA 3x weekly. Patient also followed closely by Podiatry. Cardiology: History of 6 stents and CABG x4 6 stens, and [address] Jimenez in [place]. Pacemaker implantation 2021. Takes ASA 81 mg, atenolol 50 mg, atorvastatin 80 mg. furosemide 20 mg. I received a refill request for his fenofibrate recently, and I had to decrease the dose for renal impairment. We discussed this today. He is taking the medication. Endo: Type 2 diabetes followed by Bibi Cruz PA-C. Well-controlled. Dr. Hill-nephrology. He has a history of skin cancer on his scalp and right ear. Followed by [facility]. History of throat cancer with recurrence in 2019. Now in remission. Sees ENT in [place] every 3 months. Treated with radiation. History of lower back and neck surgery. Followed by [facility]. He received steroid injections in the lower back every 4 months and takes oxycodone 5 mg as needed and Nucynta. He has a history of anemia requiring transfusion. He is followed by Hematology. ROS: Constitutional: Denies fevers or chills Respiratory: No shortness of breath, cough or sputum production. Cardiovascular: No chest pain Gastrointestinal: No anorexia, nausea, vomiting or diarrhea. No abdominal pain or blood in stool. Neurologic: No headache, dizziness, syncope Physical exam: Constitutional: Alert, in no distress. Eyes: Pupils are equal, round and reactive to light. Extraocular muscles intact. Neck: Supple, Full range of motion. No lymphadenopathy. Respiratory: Clear to auscultation. Cardiovascular: S1 S2 regular. No murmurs. Neurologic: No focal neurological deficits. Psychiatric: Normal mood and affect [facility] Medical History (Updated 08/03/25 @ 10:15 by OSWALDO Roach) Anxiety History of amputation of toe Amputation below knee Macrocytic anemia Anemia Skin cancer Hx of cardiac pacemaker Below-knee amputation of right lower extremity PAD (peripheral artery disease) CAD (coronary artery disease) Aneurysm of left leg Surgery, elective Obesity due to excess calories Hx of aneurysm Hx of myocardial infarction Carpal tunnel syndrome Throat cancer Ischemic colitis Pacemaker Diverticulitis BPH (benign prostatic hyperplasia) Type 2 diabetes mellitus with chronic kidney disease Chronic kidney disease, stage 3 Type 2 diabetes mellitus with diabetic polyneuropathy Essential hypertension Hyperlipidemia LDL goal <70 Surgical History History of amputation of foot History of back surgery H/O neck surgery History of prostate surgery Hx of angioplasty Hx of hernia repair Hx of tonsillectomy Family History Father Prostate cancer Mother Breast cancer Diabetes Social History (Updated 08/02/25 @ 11:26 by Clarice Arango CMA) Household Members: Spouse Alcohol intake: never Patient Tobacco Use Status: Former Tobacco user Tobacco use type: Cigarette Years Smoked: 40 e-Cigarette/Vaping Use: Never Used Second Hand Smoke Exposure: No Cognitive needs: No Hearing needs: No Vision needs: No Physical exam (Primary Care) Vital Signs: Last Vital Signs Temp 97.4 F 08/02/25 11:27 Pulse 70 08/02/25 11:27 Resp 15 08/02/25 11:27 BP 110/64 08/02/25 11:27 Pulse Ox 96 08/02/25 11:27 Oxygen Delivery Method Room Air 08/02/25 11:27 BMI result Body Mass Index 27.4 Tobacco/Smoking Status: Tobacco use Status Tobacco use date assessed 08/02/25 08/02/25 11:29 Patient Tobacco Use Status Former Tobacco user 08/02/25 11:26 Tobacco use type Cigarette 08/02/25 11:26 e-Cigarette/Vaping Use Never Used 08/02/25 11:26 Results Reviewed Results Reviewed: Laboratory Tests 04/30/25 07/19/25 11:34 10:29 RBC 2.87 L Hgb 9.3 L Hct 29.2 L Plt Count 281 D Creatinine 1.68 H Estim Creat Clear Calc 31.1 Estimated GFR 39 AST 22 ALT 11 Triglycerides 158 H Cholesterol 103 LDL Cholesterol, Calc 43 HDL Cholesterol 29 L Coding Level of Care Code Est Pt Level 5 (66609) Complex EM visit Add On G2211 Diagnoses Essential hypertension I10 Hyperlipidemia LDL goal <70 E78.5 Type 2 diabetes mellitus with stage 4 chronic kidney disease, with long-term current use of insulin E11.22; N18.4; Z79.4 Diabetes mellitus termite exterminator insulin use: with termite exterminator use Chronic kidney disease stage: stage 4 (severe) Lumbar radiculopathy M54.16 Coronary artery disease involving [place] coronary artery of [place] heart without angina pectoris I25.10 Coronary Disease-Associated Artery/Lesion type: [place] artery [place] vs. transplanted heart: [place] heart Associated angina: without angina PAD (peripheral artery disease) I73.9 Below-knee amputation of right lower extremity S88.111A Hx of cardiac pacemaker Z95.0 Skin cancer C44.90 Anemia, unspecified type D64.9 Anemia type: unspecified type Anxiety F41.9 Time Spent (min) 45 Comment Reviewing records, direct patient care, completing documentation Assessment & Plan Assessment & Plan (1) Essential hypertension: Code(s): I10 - Essential (primary) hypertension Category: Medical (2) Hyperlipidemia LDL goal <70: Code(s): E78.5 - Hyperlipidemia, unspecified Category: Medical (3) Type 2 diabetes mellitus with chronic kidney disease: Code(s): E11.22 - Type 2 diabetes mellitus with diabetic chronic kidney disease Category: Medical Qualifiers: Diabetes mellitus mcfp insulin use: with mcfp use Chronic kidney disease stage: stage 4 (severe) Qualified Code(s): E11.22 - Type 2 diabetes mellitus with diabetic chronic kidney disease; N18.4 - Chronic kidney disease, stage 4 (severe); Z79.4 - terminal operations manager (current) use of insulin (4) Lumbar radiculopathy: Code(s): M54.16 - Radiculopathy, lumbar region Category: Medical (5) CAD (coronary artery disease): Code(s): I25.10 - Atherosclerotic heart disease of [place] coronary artery without angina pectoris Category: Medical Qualifiers: Coronary Disease-Associated Artery/Lesion type: [place] artery [place] vs. transplanted heart: [place] heart Associated angina: without angina Qualified Code(s): I25.10 - Atherosclerotic heart disease of [place] coronary artery without angina pectoris (6) PAD (peripheral artery disease): Code(s): I73.9 - Peripheral vascular disease, unspecified Category: Medical (7) Below-knee amputation of right lower extremity: Code(s): S88.111A - Complete traumatic amputation at level between knee and ankle, right lower leg, initial encounter Category: Medical (8) Hx of cardiac pacemaker: Code(s): Z95.0 - Presence of cardiac pacemaker Category: Medical (9) Skin cancer: Code(s): C44.90 - Unspecified malignant neoplasm of skin, unspecified Category: Medical (10) Anemia: Code(s): D64.9 - Anemia, unspecified Category: Medical Qualifiers: Anemia type: unspecified type Qualified Code(s): D64.9 - Anemia, unspecified (11) Anxiety: Code(s): F41.9 - Anxiety disorder, unspecified Category: Medical Plan In summary this is an 84-year-old male with a complex past medical history and interval hospitalizations for stump cellulitis of the right lower extremity. VNA and PT on board. Follows closely with vascular surgery and Podiatry. Patient's goal is to have stump wounds heal and proceed with prosthesis. He does not like being confined to a wheelchair. He is followed closely by Hematology for anemia. Continue follow up with all specialists and current medications. Hypertension and diabetes are well-controlled. He has a history of anxiety after his son . Refill lorazepam twice daily. Advised not to stop this medication abruptly due to the risk of withdrawal. We discussed why I had to adjust the dose of fenofibrate due to renal impairment. Continue atorvastatin. We discussed possible drug interactions with atorvastatin and fenofibrate. We will re-evaluate lipid profile in 6 weeks. He will also need an A1c. Schedule follow up in 3 months. Orders: Orders Hemoglobin A1c 08/02/25 R73.9 - Hyperglycemia, unspecified Lipid Panel 08/02/25 E78.5 - Hyperlipidemia, unspecified Medications: New lorazepam 0.5 mg PO BID 60 tabs 0RF anxiety
[2025-08-02 11:27] VITALS: BP 110/64; PULSE 70; RESP 15; TEMP 36.3; O2SAT 96; BMI 27.4
--- OUTSIDE RECORDS SUMMARY | 2025-08-02 13:56 | XMS_ITS | Patient Health Record ---
Author Organization [facility] Address [address] [place] [address] Care Team Providers Care Pediatric Intensive Physician Name Role Phone Jeniffer(inactive) Irving DOLAN Primary Care Provider U Jonas Trotter [phone] Allergies Allergen (clinical drug ingredient) Drug/Non Drug [...] Bowel Prep Suprep as directed Ora lly once; Duration: 1 dose 12/02/2011 Active Allopurinol 10/04/2024 10/04/2024 Active Caduet Active Zestril 10/04/2024 10/04/2024 Active Plavix Active Gabapentin Active Tylenol PM Extra Strength Active Baby Aspirin Active traMADol HCl Active Nitrostat Active Problems Problem Type SNOMED Code ICD Code Onset Dates Problem Status W/U Status Risk Notes Problem Diverticulosis of colon (finding) (647238655) Diverticulosis of colon (without mention of hemorrhage) (562.10) Active confirmed Problem History of polyp of colon (situation) (960000039) Personal history of colonic polyps (V12.72) Active confirmed Problem Screening for malignant neoplasm of colon (072640679) Special screening for malignant neoplasms, colon (V76.51) Active confirmed Plan Of Treatment Future Test Test Name Order Date COLONOSCOPY 12/01/2011 Insurance Providers Payer Name Payer Address Payer Phone Subscriber Number Group Number Insured Name Patient Relationship to Insured Coverage Start Date Coverage End Date MEDICARE OF [place] [address] [place] [address] [id number] MUSTAPHACHERELLE SMITH Self - patient is the insured [facility] [address] [place] [address] [id number] CHERELLE SALAZAR Self - patient is the insured Medical (General) History Medical History History ICD Code CAD-AZ's in 1996 and 2001; multiple cath 's with stents-last time in 2009 Peripheral vascular disease No Diabetes, CVA, lung disease, renal di sease gout HTN hyperlipidemia arthritis back pain colon polyps ischemic colitis as above Surgical History Surgery Date(Month/Year) CABG 1996 Bilateral LE Bypass in 2009 hernia pacemaker back and neck knee
--- OUTSIDE RECORDS SUMMARY | 2025-08-02 13:56 | XMS_ITS | Encounter Summary ---
Author Organization [facility] Address [address] [place] [address] Phone Care Team Providers Care Atv Mechanic Name Role Phone Jaya Brock MD Primary Care Provider Encounter Details Date Type Department Care Team (Late st Contact Info) Description 12/11/2020 Procedure Pass Non-Invasive Cardiology [address] [place] [address] Social History Tobacco Use Types Packs/Day Years [...] on filedocumented in this encounter Care Teams Atv Mechanic Relationship Specialty Start Date End Date Jaya Brock MD PCP - General 09/07/19 documented as of this encounter Additional Source Comments The information contained in this document represents components of the legal health record. It is not the complete legal health record.[facility]
--- OUTSIDE RECORDS SUMMARY | 2025-08-02 13:56 | XMS_ITS | Encounter Summary ---
Author Organization [facility] Address [address] [place] [address] Phone Care Team Providers Care Wheat And Oats Flake Miller Name Role Phone Jaya Brock MD Primary Care Provider Encounter Details Date Type Department Care Team (Latest Contact Info) Description 12/11/2020 Ancillary Orders [facility] [address] [facility] [address] [place] [address] Kash Boles MD [address] [place] [phone] [email or web address] Sick sinus syndrome Social History Tobacco [...] for device: SSS. Examination: Device type: Pacemaker Traveling Passenger Agent: [employer] Mode: DDDR LRL/UPL: 70/130 bpm Mode switches: 0 High V rates: 0 Thresholds, impedances, and sensing stable. Atrial pacin.6% Ventricular pacin.6% Battery: 2 yrs Additional comments: Device functioning appropriately. Normal device function. Patient to follow-up with Charbel Dai of [facility], will transfer [facility] when requested Report prepared by Saúl Mckeon RN us Kash Boles MD [facility] ORDER АННА Final Result documented in this encounter Visit Diagnoses Diagnosis Sick sinus syndrome Sinoatrial node dysfunction Sick sinus syndrome Sinoatrial node dysfunction documented in this encounter Care Teams Wheat And Oats Flake Miller Relationship Specialty Start Date End Date Jaya Brock MD PCP - General 09/07/19 documented as of this encounter Additional Source Comments The information contained in this document represents components of the legal health record. It is not the complete legal health record.[facility]
--- OUTSIDE RECORDS SUMMARY | 2025-08-02 13:56 | XMS_ITS | Data Portability ---
Author Organization [place] - [facility] Address [address] [address] Care Team Providers Care Emergency Spill Response Technician Name Role Phone CHRISTIE CAR Referring Provider [phone] Assessment Encounter Date Assessment Date Assessment LastModified [...] unlisted lab - TSH w/reflex 2023 024 HARDTNER [facility] (Centralized Electronic Ordering - All Locations), Patient Can Go To The Location Of Their Choice, [address] 06/02/2024 21:10:25 Referral None recorded. Procedures None [...] 4.500 above high normal Not Available [facility] ([facility]) [address] [facility], [place], [address], 06/02/2024 21:10:25 05/31/20 24 06/02/2024 TSH W/REF LOLIS triiodothyro nine (T3), free 2.6 pg/mL 2.0-4. 4 Not Available [facility] ([facility]) [address] [place], [address], 06/02/2024 21:10:25 05/31/20 24 06/02/2024 TSH W/REF LOLIS T4,free (direct) 1.07 NG/dL 0.82-1 .77 normal Not Available [facility] ([facility]) [address] [facility], [place], [address], 06/02/2024 21:10:25 05/24/20 24 11/17/2019 imagi ng/di [...] Long-term current use of antiplate let drug 97092632405 4101 Active 2017 savings teller (current) use of antithrom botics/an tiplatele ts; Note: Date Diagnosed : 04/23/2017 12:51 PM (Z79.02) Not Available [facility] 4 02:46:28 Bleeding from nose 904145435 Active 2017 Epistaxis ; Note: Date Diagnosed : 04/23/2017 12:51 PM (R04.0) Not Available [facility] 4 02:46:21 Dysphonia 23015729 Active 2019 Hoarsenes s; Note: Date Diagnosed : 11/15/2019 1:00 PM (R49.0) Not Available [facility] 4 02:46:18 Disorder of vocal cord 69649174 Active 2019 Other diseases of vocal cords; Note: Date Diagnosed : 11/15/2019 1:00 PM (J38.3) Not Available [facility] 4 02:46:20 Neoplasm of uncertain behavior of larynx 62804314 Active 2019 Neoplasm of uncertain behavior of larynx; Note: Date Diagnosed : 12/19/2019 10:13 AM (D38.0) Not Available [facility] 4 02:46:26 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; Note: Date Diagnosed : 03/04/2020 2:33 PM (C32.0) Not Available [facility] 4 02:46:28 Follow-up visit Active 2019 Encounter for follow-up examinati on after completed treatment for malignant neoplasm; Note: Date Diagnosed : 04/24/2020 8:56 AM (Z08) Not Available [facility] 4 02:46:22 Lymphedem a 138311065 Active 2019 Lymphedem a, not elsewhere classifie d; Note: Date Diagnosed : 04/24/2020 9:00 AM (I89.0) Not Available [facility] 4 02:46:21 History of malignant neoplasm of larynx 763868084 Active 2020 Personal history of malignant neoplasm of larynx; Note: Date Diagnosed : 12/12/2020 12:47 PM (Z85.21) Not Available [facility] 4 02:46:18 Vasomotor rhinitis 4294530 Active 2020 Vasomotor rhinitis; Note: Date Diagnosed : 01/22/2021 11:42 AM (J30.0) Not Available [facility] 4 02:46:22 Pharyngea l dysphagia 46210502566 105 Active 2021 Dysphagia , pharyngea l phase; Note: Date Diagnosed : 03/20/2022 11:46 AM (R13.13) Not Available [facility] 4 02:46:23 Chronic cough 95299382 Active 2021 Chronic cough; Note: Changed from R05 to R05.3 ( 2 11:46 AM) , Date Diagnosed : 03/20/2022 11:46 AM (R05) Not Available [facility] 4 02:46:19 Finding of resonance of voice 464311440 Active 2021 Other voice and resonance disorders ; Note: Date Diagnosed : 03/18/2022 5:46 PM (R49.8) Not Available [facility] 4 02:46:17 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, [address] , [facility] - [facility] 4 18:43:13 Edema of larynx following radiother apy 900036747 Active 2023 MELVIN QUINN MD [address] [facility] [address], [place], [address] , [facility] - [facility] 4 10:25:49 Abnormal auditory perceptio n 48461959 Active 2023 MELVIN QUINN MD [address] [facility] [place],[facility] [address], [place], [address] , [facility] [place] 4 10:26:03 Bilateral tinnitus 28789616485 02 Active 2023 MELVIN QUINN MD [address] [facility] [place] [address], [place], [address] , [facility] [place] 4 10:26:07 Oropharyn geal dysphagia 82770680 Active 2023 MELVIN QUINN MD [address] [facility],[place] [address], [place], [address] , [facility] - [facility] 4 10:26:16 Sensorine ural hearing loss of bilateral ears 213128859 Active 2023 COLIN JIMENEZ MA, CCC-A [address] [facility] [place] [address], [place], [address] , [facility] [place] 4 11:01:59 Problem Notes None recorded. Procedures Surgical History Date Name Laterality Status Provider Name and Address Organization Details Recorded Time 03/22/20 25 Fiberoptic Laryngoscopy (Comprehensive) completed MELVIN AKERS MD [address] [facility] [place],[place] [address], [place], [address], [facility] - [facility] 03/22/2025 13:14:37 09/21/20 24 Fiberoptic Laryngoscopy (Comprehensive) completed MELVIN AKERS MD [address] [facility] [place] [facility], [place], [address], [facility] - [facility] 09/21/2024 11:34:17 05/31/20 24 Fiberoptic Laryngoscopy (Comprehensive) completed MELVIN AKERS MD [address] [facility] [place] [address] [place] [address], [address], [facility] - [facility] 05/30/2024 10:05:32 02/16/20 24 Comp Audio with Tymps - 19294 & 75430 completed COLIN JIMENEZ MA, CCC-A [address] [facility],[place] [address] [place] [address], [address], [facility] - [facility] 02/16/2024 11:01:33 02/16/20 24 Fiberoptic Laryngoscopy (Comprehensive) completed MELVIN AKERS MD [address] [facility] [place] [facility], [place], [address], [facility] - [facility] 02/16/2024 10:25:42 02/24/20 23 Laryngoscopy with biopsy completed MELVIN AKERS MD [address] [facility] [place] [address] [place] [address], [address], [facility] - [facility] 02/14/2024 18:47:38 12/19/19 20 Laryngoscopy for treatment completed MELVIN AKERS MD [address] [facility] [place],[place] [address] [place] [address], [address], [facility] - [facility] 02/14/2024 18:47:06 insertion of stent into aorta completed MELVIN AKERS MD [address] [facility] [address],[place] [address] [place] [address], [address], [facility] - [facility] 09/21/2024 11:35:38 peripheral arterial bypass completed MELVIN AKERS MD [address] [facility] [place],[address], [address], [facility] - [facility] 09/21/2024 11:35:45 Imaging Results None recorded. Procedure Notes None recorded. Medical Equipment None Reported. Allergies Allergen ID Allergen Name Allergen Category Reaction Reaction Severity Criticality Documentation Date Start Date Code Code System Note Provider Name and Address Organization Details Recorded Time 29709 Bactrim medicatio n other Not available Not available 02/15/2024 46120 9 RxNorm React ion: unkno wn, unspe cifie d;; Not Available [facility] 01:04:16 94885 Substance with tetracycl ine structure (substanc e) medicatio n other Not available Not available 02/15/2024 94440 8001 SNOMED React ion: unkno wn, unspe cifie d;; Not Available [facility] 4 01:04:19 Medications Name Sig Start Date Stop Date Status Note LastModified by Organization Details LastModified Time metformin 500 mg tablet 04/23 completed Medicati on ID: [id number] D uration Value: 90 Brand Name: metformi [...] mg tablet 12/18 completed Medicati on ID: 636190 B rand Name: gabapent in Send Method: [...] 24 hr 04/23 completed Medicati on ID: 001919 D uration Value: 30 Brand Name: oxybutyn in chloride Send Method: E-Prescr ibed Sub s Allowed: subs OK Medic ationGen ericName : oxybutyn in chloride Not Available Not Available Not Available atenolol 100 mg tablet 03/22 completed Medicati on ID: 546239 B rand Name: atenolol Send Method: E-Prescr ibed Sub s Allowed: subs OK Medic ationGen ericName : atenolol Not Available Not Available Not Available glipizide ER 10 mg tablet, extended release 24 hr 04/23 completed Medicati on ID: [id number] D uration Value: 90 Brand Name: glipizid [...] mg capsule 12/18 completed Medicati on ID: 047623 B rand Name: gabapent in Send Method: E-Prescr ibed Sub s Allowed: subs OK Medic ationGen ericName : gabapent in Not Available Not Available Not Available Zyrtec 10 mg tablet Take 1 tablet by mouth as directed 03/22 completed Medicati on ID: 479104 D uration Value: 1 Brand Name: Zyrtec S end Method: E-Prescr ibed Sub s Allowed: subs OK Speci al Instruct ion: take one tablet by mouth [address] Scan Med icationG enericNa me: Zyrtec Not Available Not Available Not Available clopidogr el 75 mg tablet 12/17 completed Medicati on ID: 314180 D uration Value: 90 Brand Name: clopidog rel Send Method: E-Prescr ibed Sub s Allowed: subs OK Medic ationGen ericName : clopidog rel Not Available Not Available Not Available amlodipin e 5 mg tablet 04/23 completed Medicati on ID: 175464 D uration Value: 90 Brand Name: amlodipi [...] mg tablet 04/23 completed Medicati on ID: 488645 D uration Value: 90 Brand Name: tramadol [...] mg tablet 12/18 completed Medicati on ID: 119693 B rand Name: predniso ne Send Method: [...] mg tablet 04/23 completed Medicati on ID: 126075 D uration Value: 90 Brand Name: allopuri [...] nasal spray 12/18 completed Medicati on ID: 830503 B rand Name: ipratrop ium bromide Send [...] by mouth 03/22 completed Medicati on ID: 106074 D uration Value: 1 Prescri bed By Name: RODERICK Chacon nd Name: Benadryl Allergy Send Method: E-Prescr ibed Sub s Allowed: subs OK Speci al Instruct ion: take 2 tablets [address] scan Med icationG enericNa me: Benadryl Allergy Not Available Not Available Not Available olmesarta n 5 mg tablet 12/18 completed Medicati on ID: 674168 B rand Name: olmesart an Send Method: E-Prescr ibed Sub s Allowed: subs OK Medic ationGen ericName : olmesart an Not Available Not Available Not Available olmesarta n 20 mg tablet 03/22 completed Medicati on ID: 643449 B rand Name: olmesart an Send Method: [...] mg tablet 04/23 completed Medicati on ID: 414482 D uration Value: 90 Brand Name: escitalo pram oxalate Send Method: E-Prescr ibed Sub s Allowed: subs OK Medic ationGen ericName : escitalo pram oxalate Not Available Not Available Not Available Novolog FlexPen U-100 Insulin aspart 100 unit/mL (3 mL) subcutane ous 03/22 completed Medicati on ID: 149896 B rand Name: Novolog Flexpen U-100 Insulin Send Method: E-Prescr ibed Sub s Allowed: subs OK Medic ationGen ericName : Novolog Flexpen U-100 Insulin Not Available Not Available Not Available pregabali n 150 mg capsule 03/22 completed Medicati on ID: 297250 B rand Name: pregabal in Send Method: E-Prescr ibed Sub s Allowed: subs OK Medic ationGen ericName : pregabal in Not Available Not Available Not Available Lyrica 75 mg capsule 04/23 completed Medicati on ID: 986562 D uration Value: 90 Brand Name: Lyrica [...] pen injector 03/22 completed Medicati on ID: 403076 B rand Name: Trulicit y Send Method: [...] x 1/4 12/18 completed Medicati on ID: [id number] B rand Name: BD Ultra-Fi ne Micro Pen Needle S end Method: E-Prescr ibed Sub s Allowed: subs OK Medic ationGen ericName : BD Ultra-Fi ne Micro Pen Needle Not Available Not Available Not Available Ozempic 0.25 mg or 0.5 mg (2 mg/1.5 mL) subcutane ous pen injector 03/22 completed Medicati on ID: [id number] B rand Name: Ozempic Send Method: E-Prescr [...] Address Organization Details Last Updated DateTime 02/16/2024 62903.29 g 30.1 kg/m2 172.72 cm Malik Joiner [place] [facility] 02/16/2024 10:11:40 Date Recorded Body height Body mass index (BMI) Body weight Provider Name and Address Organization Details Last Updated DateTime 03/22/2025 172.72 cm 28.3 kg/m2 89342.18 g Viri Leonard [facility] 03/22/2025 12:59:01 Date Recorded Body height Body mass index (BMI) Body weight Provider Name and Address Organization Details Last Updated DateTime 05/31/2024 172.72 cm 30.6 kg/m2 20298.07 g Malik Joiner [facility] 05/31/2024 09:57:53 Date Recorded Body height Body mass index (BMI) Body weight Provider Name and Address Organization Details Last Updated DateTime 09/21/2024 172.72 cm 30.4 kg/m2 83561.47 g Malik Joiner [facility] 09/21/2024 11:15:52 Social History None recorded. Functional Status Question Answer Note LastModified by Organizat ion Details LastModified Time Do you use any illicit or recreational drugs? No [email or web address] Information not available 02/16/2024 Do you or have you ever used any other forms of tobacco or nicotine? No [email or web address] Information not available 02/16/2024 What is your level of alcohol consumption? None [email or web address] Information not available 02/16/2024 Mental Status None recorded. Family History Nothing Reported. Medical History Condition Response Diabetes Y Hyperlipidemia Y Hypertension Y High Cholesterol Y Past Encounters Encounter ID Performer Location Encounter Start Date Encounter Closed Date Diagnosis/Indication Diagnosis SNOMED-CT Code Diagnosis ICD10 Code Diagnosis IMO Codes Diagnosis Note [id number] MELVIN QUINN MD [facility] [address] [address] 02/16/2024 10:01:00 02/16/2024 11:03:28 Abnormal auditory perception 65495450 H93.299 Bilateral tinnitus 44666 04755 102 H93.13 Oropharyng eal dysphagia 84350761 R13.12 Sensorineu ral hearing loss of bilateral ears 852010772 H90.3 Normal hearing thru 1000Hz sloping to a mild to to severe sensorineu ral hearing loss with excellent speech discrimina tion ability for both ears.Type A tympanogra ms. Declines amplificat ion History of malignant neoplasm of larynx 874065816 Z85.21 Chronic hoarseness 68159 81153 105 R49.0 Edema of l arynx following radiotherapy 115772618 J38.4 [id number] COLIN JIMENEZ MA, CCC-A [facility] [address] [address] 02/16/2024 10:57:00 02/17/2024 22:38:16 Sensorineural hearing loss of bilateral ears 102508707 H90.3 Normal hearing thru 1000Hz sloping to a mild to to severe sensorineu ral hearing loss with excellent speech discrimina tion ability for both ears.Type A tympanogra ms. Bilateral tinnitus 19691 24877 102 H93.13 [id number] MELVIN QUINN MD [facility] [address] [address] 05/31/2024 09:51:42 05/31/2024 10:31:47 History of malignant neoplasm of larynx 062855798 Z85.21 Chronic hoarseness 20302 07536 105 R49.0 Edema of l arynx following radiotherapy 152842048 J38.4 Bilateral tinnitus 25512 55995 102 H93.13 Oropharyng eal dysphagia 66097702 R13.12 Sensorineu ral hearing loss of bilateral ears 812938439 H90.3 [id number] MELVIN QUINN MD [facility] [address] [address] 09/21/2024 10:58:20 09/21/2024 11:41:36 History of malignant neoplasm of larynx 954196861 Z85.21 Chronic hoarseness 07833 01851 105 R49.0 Edema of l arynx following radiotherapy 894304933 J38.4 Bilateral tinnitus 67127 62464 102 H93.13 Oropharyng eal dysphagia 88850558 R13.12 Sensorineu ral hearing loss of bilateral ears 050349827 H90.3 [id number] MELVIN QUINN MD [facility] [address] [place] [address] 03/22/2025 12:49:50 03/22/2025 13:19:06 History of malignant neoplasm of larynx 363764324 Z85.21 Chronic hoarseness 85077 83318 105 R49.0 Edema of l arynx following radiotherapy 572543817 J38.4 Bilateral tinnitus 88549 47073 102 H93.13 Oropharyng eal dysphagia 13221440 R13.12 Sensorineu ral hearing loss of bilateral ears 714405203 H90.3 Health Concerns Section Related Observation LastModified by Organization Detai ls LastModified Time None Recorded Concern Status LastModified by Organization Details LastModified Time None Recorded Advance Directives Directive None Recorded Payers Insurance Date Sequence Insurance Name Policy Number Policy Purcell Covered Member ID Purcell Member ID Guarantor Name 04/02/2025 2 [facility] [id number] Mark Anthony Omalley [id number] Mark Anthony Omalley 04/02/2025 1 MEDICARE B-[place]: [facility] [employer] Mark Anthony Omalley [id number] Mark Anthony Omalley Notes Date Note Type Note Provider Name and Address Organization Details Recorded Time 02/16/2024 text/html Hearing Loss - AdultReported by PatientHx of bilateral tinnitus, hearing loss and noise exposure. notes he has difficulty hearing herROS as noted in the HPI Patient with history of squamous cell carcinoma [...] water to swallow MELVIN AKERS MD [address], [address], [facility] - [facility] 02/16/2024 12:28:07 02/16/2024 text/html tinnitus COLIN JIMENEZ MA, CCC-A 100 [facility],[address], [address], [facility] 02/16/2024 11:07:36 05/31/2024 text/html Hearing Loss - AdultReported by PatientHx of bilateral tinnitus, hearing loss and noise exposure. notes he has difficulty hearing her--audio last visitROS as noted in the [facility] Patient with history of squamous cell carcinoma [...] peripheral bypass tomorrow. MELVIN AKERS MD 100 [facility],[address], [address], [facility] 05/31/2024 10:20:02 09/21/2024 text/html Hearing Loss - AdultReported by PatientHx of bilateral tinnitus, hearing loss and noise exposure. notes he has difficulty hearing her--audio last visitROS as noted in the [facility] Patient with history of squamous cell carcinoma [...] peripheral bypass tomorrow. MELVIN AKERS MD 100 [facility],[place] [address], [place], [address], [place] [facility] [place] 09/21/2024 13:02:16 03/22/2025 text/html ROS as noted in the HPI Patient with history of squamous cell carcinoma [...] From an ENT standpoint he is doing well.Had resection right pinna carcinoma Has to use water to swallow, but otherwise ok Denies change in voice or swallowing. No otalgia MELVIN AKERS MD 100 [facility],[place] [address], [place], [address], [place] [facility] 03/22/2025 15:19:34
--- OUTSIDE RECORDS SUMMARY | 2025-08-02 13:56 | XMS_ITS | Encounter Summary ---
Author Organization Located Within [facility] Address [address] [place] [address] Phone Care Team Providers Care Media Monitor Name Role Phone Jaya Brock MD Primary Care Provider Encounter Details Date Type Department Care Team (Latest Contact Info) Description 12/11/2020 Ancillary Orders [facility] [address] [facility] [address] Floor, [address] [place] [address] Kash Boles MD [address] [place] [phone] [email or web address] Sick sinus syndrome Social [...] dysfunction documented in this encounter Care Teams Media Monitor Relationship Specialty Start Date End Date Jaya Brock MD PCP - General 09/07/19 documented as of this encounter Additional Source Comments The information contained in this document represents components of the legal health record. It is not the complete legal health record.[facility]
--- OUTSIDE RECORDS SUMMARY | 2025-08-02 13:56 | XMS_ITS | Encounter Summary ---
Author Organization [facility] Address [address] [place] [address] Phone Care Team Providers Care Superintendent Transmission Name Role Phone Jaya Brock MD Primary Care Provider Encounter Details Date Type Department Care Team (Late st Contact Info) Description 11/26/2020 Ancillary Orders Non-Invasive Cardiology [address] [place] [address] Ulisses Lyn MD [address] [place] [address] [email or web address] Sick sinus syndrome Social History Tobacco Use [...] dysfunction documented in this encounter Care Teams Superintendent Transmission Relationship Specialty Start Date End Date Jaya Brock MD PCP - General 09/07/19 documented as of this encounter Additional Source Comments The information contained in this document represents components of the legal health record. It is not the complete legal health record.[facility]
--- OUTSIDE RECORDS SUMMARY | 2025-08-02 13:57 | XMS_ITS | Encounter Summary ---
Author Organization [facility] Address [address] [place] [address] Phone Care Team Providers Care Box Truck Owner Operator Name Role Phone Irving Swift DO Primary Care Provider +1- [phone] Janee Berry MD, MPH Primary Care Provid er Unknown, Unknown Primary Care Provider Jaya Sanchez MD Primary Care Provider Encounter Details Date Type Department Care Team (Latest Contact Info) Description 07/24/2017 Ancillary Orders [facility] [address] [facility] [address], [address] [place] [address] Santy Matos, NITIN [address] [place] [address] [address] [place] [address] Diagnosis unknown Social History [...] * DEVICE CHECK: PPM REMOTE INTERROGATION WITH DIESEL LOCOMOTIVE FIRER/FIREMAN REVIEW (08/22/2018 2:20 PM EST) Narrative Ulisses Moy DO - 08/23/2018 2:09 PM EST Reason for appointment: Remote pacemaker interrogation HPI: Routine 3 month remote pacemaker interrogation. No device related complaints. Indication for device: SSS. Examination: Device type: Pacemaker Retail Customer Service Representative: [employer]tr[employer] Mode: DDDR LRL/UPL: 70/130 bpm Mode [...] unknown documented in this encounter Care Teams Box Truck Owner Operator Relationship Specialty Start Date End Date Irving Swift DO [address] [place] [address] PCP - General 07/22/17 01/18/19 Janee Berry MD, MPH [address] [place] [address] [email or web address] PCP - General Family Medicine 01/19/19 05/23/19 Unknown, Unknown, [address] [place] [address] PCP - General 05/24/19 09/06/19 Jaya Brock MD [address] [place] [address] PCP - General 09/07/19 documented as of this encounter Additional Source Comments The information contained in this document represents components of the legal health record. It is not the complete legal health record.[facility]
--- OUTSIDE RECORDS SUMMARY | 2025-08-02 13:57 | XMS_ITS | Encounter Summary ---
Author Organization [facility] Address [address] [facility] [address] [place] [address] Phone Care Team Providers Care Emu Farm Worker Name Role Phone Irving Swift DO Primary Care Provider +1- [phone] Janee Berry MD, MPH Primary Care Provid er Unknown, Unknown Primary Care Provider Jaya Sanchez MD Primary Care Provider Encounter Details Date Type Department Care Team (Late st Contact Info) Description 12/28/2018 Ancillary Orders [facility] [address] [place] [address] Ulisses Lyn MD [address] [place] [address] [place] [address] [email or web address] Social History Tobacco Use Types Packs/Day Years [...] on filedocumented in this encounter Care Teams Emu Farm Worker Relationship Specialty Start Date End Date Irving Swift DO [address] [place] [address] PCP - General 07/22/17 01/18/19 Janee Berry MD, MPH [address] [place] [address] [email or web address] PCP - General Family Medicine 01/19/19 05/23/19 Unknown, Unknown, [address] [place] [address] PCP - General 05/24/19 09/06/19 Jaya Brock MD [address] [place] [address] PCP - General 09/07/19 documented as of this encounter Additional Source Comments The information contained in this document represents components of the legal health record. It is not the complete legal health record.[facility]
--- OUTSIDE RECORDS SUMMARY | 2025-08-02 13:57 | XMS_ITS | Encounter Summary ---
Author Organization [facility] Address [address] [place] [address] Phone Care Team Providers Care Data Visualization Developer Name Role Phone Irving Swift DO Primary Care Provider +1- [phone] Janee Berry MD, MPH Primary Care Provid er Unknown, Unknown Primary Care Provider Jaya Sanchez MD Primary Care Provider Encounter Details Date Type Department Care Team (Latest Contact Info) Description 10/13/2017 Ancillary Orders [facility] [address] [facility] 3rd Floor, [address] [place] [address] Ulisses Lyn MD [address] [place] [address] [email or web address] Complete heart block Social [...] for device SSS Examination: Device type: pacemaker Research [employer] Partner: MDT Thresholds, impedances, and sensing stable. Mode [...] complete documented in this encounter Care Teams Data Visualization Developer Relationship Specialty Start Date End Date Irving Swift DO [address] [place] [address] PCP - General 07/22/17 01/18/19 Janee Berry MD, MPH [address] [place] [address] [email or web address] PCP - General Family Medicine 01/19/19 05/23/19 Unknown, Unknown, [address] [place] [address] PCP - General 05/24/19 09/06/19 Jaya Brock MD [address] [place] [address] PCP - General 09/07/19 documented as of this encounter Additional Source Comments The information contained in this document represents components of the legal health record. It is not the complete legal health record.[facility]
--- OUTSIDE RECORDS SUMMARY | 2025-08-02 13:57 | XMS_ITS | Encounter Summary ---
Author Organization [facility] Address [address] [facility] [address] [place] [address] Phone Care Team Providers Care Field Technician Name Role Phone Irving Swift DO Primary Care Provider +1- [phone] Janee Berry MD, MPH Primary Care Provid er Unknown, Unknown Primary Care Provider Jaya Sanchez MD Primary Care Provider Encounter Details Date Type Department Care Team (Late st Contact Info) Description 10/13/2017 Ancillary Orders Non-Invasive Cardiology [address] [place] [address] Ulisses Lyn MD [address] [place] [address] [email or web address] Complete heart block Social History Tobacco Use [...] Complete heart block Examination: Device type: Pacemaker Gate Technician: Medtronic Mode: DDDR LRL/URL: 70/130 bpm Thresholds, [...] complete documented in this encounter Care Teams Field Technician Relationship Specialty Start Date End Date Irving Swift DO 5 [place] [address] PCP - General 07/22/17 01/18/19 Janee Berry MD, MPH [address] [address] [email or web address] PCP - General Family Medicine 01/19/19 05/23/19 Unknown, MD Price [address] [address] PCP - General 05/24/19 09/06/19 Jaya Brock MD [address] [address] PCP - General 09/07/19 documented as of this encounter Additional Source Comments The information contained in this document represents components of the legal health record. It is not the complete legal health record.[facility]
--- OUTSIDE RECORDS SUMMARY | 2025-08-02 13:57 | XMS_ITS | Patient Health Record ---
Author Organization [facility] Address Formerly [facility] [place] [address] Care Team Providers Care Loading Machine Adjuster Name Role Phone Jadyn Daniel Primary Care [...] Risk Notes Problem Atherosclerotic heart disease of [place] coronary artery without angina pectoris (995697200258212) Atherosclerotic heart disease of [place] coronary artery without angina pectoris (I25.10) Active confirmed Problem Hypertensive heart disease without congestive heart failure (43942990) Hypertensive heart disease without heart failure (I11.9) Active confirmed Problem Atherosclerosis of coronary artery (498364671) 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 calcified coronary lesion (I25.84) Active confirmed Problem Hyperglycemia due to type 2 diabetes mellitus (616328609873692) Type 2 diabetes mellitus with hyperglycemia, without long-term current use of insulin (E11.65) Active confirmed Problem Laryngitis (23116761) Laryngitis (J04.0) Active confirmed Plan Of Treatment No Information Insurance Providers Payer Name Payer Address Payer Phone Subscriber Number Group Number Insured Name Patient Relationship to Insured Coverage Start Date Coverage End Date MEDICARE PART B [address] [address] [place] [address] [id number] Mark Anthony Omalley Self - patient is the insured [facility] [address] [place] [address] [phone] [id number] Mark Anthony Omalley Self - patient is the insured Medical (General) History Medical History History ICD Code diabetes mellitus Coronary Artery Disease. 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
--- OUTSIDE RECORDS SUMMARY | 2025-08-02 13:57 | XMS_ITS | Clinical Summary ---
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 Assessment & Plan (05/24/2019 2:01 PM EDT): [...] routine labs prior to his leaving to [place]. Peripheral vascular disease 12/30/2017 Overview (07/28/2018): 09/2010 [...] EDT) SODIUM 145 133 - 146 mmol/L [facility] CHLORIDE 106 96 - 108 mmol/L [facility] POTASSIUM 4.9 3.3 - 5.1 mmol/L [facility] CO2 26 21 - 35 mmol/L [facility] BUN 31(H) 6 - 19 mg/dL [facility] CREATININE 1.60(H) 0.5 - 1.5 mg/dL [facility] GLUCOSE 134(H) 70 - 99 mg/dL [facility] CALCIUM 9.7 8.4 - 10.3 mg/dL [facility] EGFR 40(L) >59 mL/min/1.7 3m2 [facility] Comment:Estimated glomerular filtration rate calculated using the CKD-EPI equation. ANION GAP 18 10 - 20 mmol/L [facility] Blood 05/01/2020 3:53 PM EDT 05/01/2020 3:55 PM EDT us Jean Lucero MD LAB BLOOD ORDERABLES Final Resu lt [facility] [address] [place] [address] from Last 3 Months or Most Recently Relevant to Health Maintenance Insurance MEDICARE PART A & B [facility] MEDICARE SUPPLEMENT MEDICARE PART A & B [employer] MEDIC[employer] SUPPLEMENT MEDICARE PART A & B Member Subscriber Plan / Payer ( fective 2002-Present) Name:Mark Anthony Omalley Member ID:[id number] Relation to Subscriber:Self Name:Mark Anthony Omalley Subscriber ID:[id number] Payer ID:[id number] Group ID:Not on file Type:Medicare Address: [employer] [address] [facility] MEDICARE SUPPLEMENT MEDICARE PART A & B [employer] MEDICARE SUPPLEMENT MEDICARE PART A & B [employer] MEDICARE SUPPLEMENT MEDICARE PART A & B [employer] MEDICARE SUPPLEMENT MEDICARE PART A & B [employer] MEDICARE SUPPLEMENT MEDICARE PART A & B [employer] MEDICARE SUPPLEMENT MEDICARE PART A & B [employer] MEDICARE SUPPLEMENT Care Teams Tube Laser Operator Relationship Specialty Start Date End Date Jaya Brock MD PCP - General 09/07/19 Additional Source Comments The information contained in this document represents components of the legal health record. It is not the complete legal health record.[facility]
--- OUTSIDE RECORDS SUMMARY | 2025-08-02 13:57 | XMS_ITS | Patient Health Record ---
Author Organization [facility] Address [address] [facility] [place], [place] [address] Care Team Providers Care Waxer Operator Name Role Phone Irving Swift MD Primary Care Provider Haroon Hatch Unavailable [phone] Allergies Allergen (clinical drug ingredient) Drug/Non Drug [...] Test Name Order Date Hemoglobin A1c 10/18/2015 [id number] NAIL, 1-5 10/18/2015 [id number] Plate 10/18/2015 [id number] SKIN LESIONS, OVER 4 10/18/19 16 [id number] DYSTROPHIC NAILS ANY # Insurance Providers Payer Name Payer Address Payer Phone Subscriber Number Group Number Insured Name Patient Relationship to Insured Coverage Start Date Coverage End Date Medicare National [employer] [address] [place] [id number] Lyssa Mark Anthony Self - patient is the insured [email or web address] [address] [place] [address] [id number] Lyssa Mark Anthony Self - patient [...]
--- OUTSIDE RECORDS SUMMARY | 2025-08-02 13:57 | XMS_ITS | Encounter Summary ---
Author Organization [facility] Address [address] [facility] [address] [place] [address] Phone Care Team Providers Care Facing Baster Name Role Phone Irving Swift DO Primary Care Provider +1- [phone] Janee Berry MD, MPH Primary Care Provid er Unknown, Unknown Primary Care Provider Jaya Sanchez MD Primary Care Provider Encounter Details Date Type Department Care Team (Late st Contact Info) Description 10/13/2017 Ancillary [facility] [address] [place] [address] Ulisses Lyn MD [address] [facility] [place] [id number] [email or web address] Social History Tobacco Use Types Packs/Day Years [...] on filedocumented in this encounter Care Teams Facing Baster Relationship Specialty Start Date End Date Irving Swift DO [address] [place] [address] PCP - General 07/22/17 01/18/19 Janee Berry MD, MPH [address] [facility] [address] [place] [address] [email or web address] PCP - General Family Medicine 01/19/19 05/23/19 Unknown, Price, [address] [place] [address] PCP - General 05/24/19 09/06/19 Jaya Brock MD [address] [place] [address] PCP - General 09/07/19 documented as of this encounter Additional Source Comments The information contained in this document represents components of the legal health record. It is not the complete legal health record.[facility]
--- OUTSIDE RECORDS SUMMARY | 2025-08-02 13:57 | XMS_ITS | Encounter Summary ---
Author Organization [facility] Address [address] [facility] [address] [place] [address] Phone Care Team Providers Care Home Health Clinical Liaison Name Role Phone Irving Swift DO Primary Care Provider +1- [phone] Janee Berry MD, MPH Primary Care Provid er Unknown, Unknown Primary Care Provider Jaya Sanchez MD Primary Care Provider Encounter Details Date Type Department Care Team (Late st Contact Info) Description 07/24/2017 Ancillary [facility] [address] [place] [address] Ulisses Lyn MD 22 [place] [address] [email or web address] Social History Tobacco Use Types Packs/Day Years [...] on filedocumented in this encounter Care Teams Home Health Clinical Liaison Relationship Specialty Start Date End Date Irving Swift DO [address] [place] [address] PCP - General 07/22/17 01/18/19 Janee Berry MD, MPH [address] [facility] [address] [place] [address] [email or web address] PCP - General Family Medicine 01/19/19 05/23/19 Unknown, Price, [address] [place] [address] PCP - General 05/24/19 09/06/19 Jaya Brock MD [address] [place] [address] PCP - General 09/07/19 documented as of this encounter Additional Source Comments The information contained in this document represents components of the legal health record. It is not the complete legal health record.[facility]
--- OUTSIDE RECORDS SUMMARY | 2025-08-02 13:57 | XMS_ITS | Encounter Summary ---
Author Organization [facility] Address [address] [facility] [address] [place] [address] Phone Care Team Providers Care Stenotype Machine Operator Name Role Phone Irving Swift DO Primary Care Provider +1- [phone] Janee Berry MD, MPH Primary Care Provid er Unknown, Unknown Primary Care Provider Jaya Sanchez MD Primary Care Provider Encounter Details Date Type Department Care Team (Latest Contact Info) Description 07/24/2017 Ancillary Orders [facility] [address]rd Floor, [address] [place] [address] Ulisses Lyn MD [address] [place] [address] [email or web address] Diagnosis unknown Social History Tobacco Use Types [...] unknown documented in this encounter Care Teams Stenotype Machine Operator Relationship Specialty Start Date End Date Irving Swift DO [address] [place] [address] PCP - General 07/22/17 01/18/19 Janee Berry MD, MPH [address] [address] [email or web address] PCP - General Family Medicine 01/19/19 05/23/19 Unknown, Price, [address] [place] [address] PCP - General 05/24/19 09/06/19 Jaya Brock MD [address] [place] [address] PCP - General 09/07/19 documented as of this encounter Additional Source Comments The information contained in this document represents components of the legal health record. It is not the complete legal health record.[facility]
--- OUTSIDE RECORDS SUMMARY | 2025-08-02 13:57 | XMS_ITS | Encounter Summary ---
Author Organization [facility] Address [address] [place] [address] Phone Care Team Providers Care Blanket Cutting Machine Operator Name Role Phone Jaya Brock MD Primary Care Provider Encounter Details Date Type Department Care Team (Late st Contact Info) Description 10/12/2020 Procedure Pass Non-Invasive Cardiology [address] [place] [address] Social History Tobacco Use Types Packs/Day Years [...] on filedocumented in this encounter Care Teams Blanket Cutting Machine Operator Relationship Specialty Start Date End Date Jaya Brock MD PCP - General 09/07/19 documented as of this encounter Additional Source Comments The information contained in this document represents components of the legal health record. It is not the complete legal health record.[facility]
--- OUTSIDE RECORDS SUMMARY | 2025-08-02 13:57 | XMS_ITS | Encounter Summary ---
Author Organization [facility] Address [address] [facility] [address] [place] [address] Phone Care Team Providers Care Managed Care Specialist Name Role Phone Irving Swift DO Primary Care Provider +1- [phone] Janee Berry MD, MPH Primary Care Provid er Unknown, Unknown Primary Care Provider Jaya Sanchez MD Primary Care Provider Encounter Details Date Type Department Care Team (Late st Contact Info) Description 12/28/2018 Ancillary Orders Non-Invasive Cardiology [address] [place] [address] Ulisses Lyn MD [address] [place] [address] [email or web address] Sick sinus syndrome Social History Tobacco [...] dysfunction documented in this encounter Care Teams Managed Care Specialist Relationship Specialty Start Date End Date Irving Swift DO [address] [place] [address] PCP - General 07/22/17 01/18/19 Janee Berry MD, MPH [address] [place] [address] [email or web address] PCP - General Family Medicine 01/19/19 05/23/19 Unknown, Unknown, [address] [place] [address] PCP - General 05/24/19 09/06/19 Jaya Brock MD [address] [place] [address] PCP - General 09/07/19 documented as of this encounter Additional Source Comments The information contained in this document represents components of the legal health record. It is not the complete legal health record.[facility]
== END 2025-08-02 12:05 | disposition home or self-care (01) ==
LOC: HO.HMCFM 11:08
PROVIDERS: PCP Physician Assistant Medical; Visit Provider Physician Assistant Medical
DX: I12.9 Hypertensive chronic kidney disease with stage 1 through stage 4 chronic kidney disease, or unspecified chronic kidney disease (principal); E11.22 Type 2 diabetes mellitus with diabetic chronic kidney disease; N18.4 Chronic kidney disease, stage 4 (severe); Z79.4 Long term (current) use of insulin; S88.111A Complete traumatic amputation at level between knee and ankle, right lower leg, initial encounter; E78.5 Hyperlipidemia, unspecified; M54.16 Radiculopathy, lumbar region; I25.10 Atherosclerotic heart disease of native coronary artery without angina pectoris; I73.9 Peripheral vascular disease, unspecified; Z95.0 Presence of cardiac pacemaker; C44.90 Unspecified malignant neoplasm of skin, unspecified; D64.9 Anemia, unspecified

== ENCOUNTER → 2025-08-02 11:07 | Outpatient (BNVA) | payer MEDICARE, OTHER, SELFPAY | PROVIDERS: PCP Physician Assistant Medical; Visit Provider Physician Assistant Medical | DX: E78.5 Hyperlipidemia, unspecified (principal); E11.22 Type 2 diabetes mellitus with diabetic chronic kidney disease; I12.9 Hypertensive chronic kidney disease with stage 1 through stage 4 chronic kidney disease, or unspecified chronic kidney disease; N18.4 Chronic kidney disease, stage 4 (severe); M54.16 Radiculopathy, lumbar region; I25.10 Atherosclerotic heart disease of native coronary artery without angina pectoris; I73.9 Peripheral vascular disease, unspecified; D64.9 Anemia, unspecified; F41.9 Anxiety disorder, unspecified; Z85.828 Personal history of other malignant neoplasm of skin; Z85.89 Personal history of malignant neoplasm of other organs and systems; Z95.0 Presence of cardiac pacemaker; Z95.5 Presence of coronary angioplasty implant and graft; Z89.511 Acquired absence of right leg below knee; Z79.4 Long term (current) use of insulin; Z79.82 Long term (current) use of aspirin; Z79.899 Other long term (current) drug therapy | CPT/HCPCS: 99212 ==

== ENCOUNTER 2025-08-27 12:46 | Outpatient (AMB) | payer MEDICARE, OTHER, SELFPAY ==
--- OUTSIDE RECORDS SUMMARY | 2025-08-24 14:30 | XMS_ITS | Encounter Summary ---
Author Organization [facility] Address [address] [place] [address] Care Team Providers Care Clerk Guide Name Role Phone Diana Corona Primary Care Provider [phone] Reason for Visit * Reason Comments Wound Care Encounter Details Date Type Department Care Team (Late st Contact Info) Description 08/24/2025 2:30 PM EST Office Visit [facility] [address] [place] [address] Dereje Goins MD [address] [place] [address] Dehiscence of operative wound, subsequent encounter (Primary Dx); Non-healing wound of amputation stump ([facility] V24, [facility] V28); Non-pressure chronic ulcer of right lower leg with fat layer exposed (CMS/HCC V24, [facility] V28); 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 without evidence of necrosis ([facility] V24, [facility] V28) Social History Tobacco Use Types Packs/Day Years Used Date Smoking Tobacco: Former Cigarettes 41 0 10/04/1953 - 10/04/1994 Smokeless Tobacco: Never [...] Safety Answer Date Record ed Physical Abuse Unrecognized value 06/19/2025 Verbal Abuse Unrecognized value 06/19/2025 Sex and Gender Information Value Date Recorded Sex Assigned at Male 10/26/2024 4:21 PM EST Legal Sex Male 5:29 PM EST Gender Identity Male 10/26/2024 4:21 PM EST Sexual Orientation Straight 10/26/2024 4: 21 PM EST documented as of this encounter Last Filed Vital Signs Vital Sign Reading Time Taken Comments Blood Pressure 138/60 08/24/2025 2:43 PM EST Pulse 60 08/24/2025 2:43 PM EST Temperature 36.2 C (97.1 F) 08/24/2025 2:43 PM EST Respiratory Rate 18 08/24/2025 2:43 PM EST Oxygen Saturation 99% 08/24/2025 2:43 PM EST Inhaled Oxygen Concentration - - Weight - - Height - - Body Mass Index - - documented in this encounter Functional Status * [...] documented in this encounter Progress Notes * Ginny Martínez RN - 08/24/2025 2:30 PM EST PROVIDER ORDERS Go to ER if you are presenting with fever, chills, increased redness, pain, swelling, warmth aroundwound area and/or foul smelling odor. If you have any questions or concerns, please contact the [facility] [place] at . Follow up(s)/ Referrals: Vascular: [facility] 09/13/25 Correction: Home care: [facility] Additional Orders: Increase protein in your diet to help promote wound healing, Maintain good blood sugar control Lidocaine Orders: Apply Lidocaine 5% Topical Ointment prior to debridements at Wound Care appointments Edema Control: (If your compression wrap(s) feel to tight, please elevate your leg(s) about heart level. If your wrap(s) are becoming painful and/or you loose sensation of toes/ are having toe discoloration (a change from your baseline), please remove / unwrap compression and notify [facility] at . ) 4 Issac Wrap Offloading: Limit pressure to wound as much as possible Negative Pressure Wound Therapy: (If wound vac is off/non functioning for more than 2 hours, please remove vac dressing, apply a wetto dry dressing and notify your home care agency) N/A Cellular/Tissue Based Products: N/A Bathing / Showering / Hygiene: Ok to shower with dressing on, then change dressing right after. Non-wound Condition/ Other Skin Care: N/A Wound Location(s): Wound #1 (Right Lateral BKA): Cleanser: Cleanse with Normal Saline Periwound: N/A Topical: N/A Primary dressing: Hydrofiber with silver (Aquacel AG)- cut to fit to wound bed, Collagen with Silver- will dissolve in wound. If not dissolving you may moisten with saline prior to covering. Collagento base with a piece of alginate on top to prevent the wound from closing at the top Secondary dressinx4 non-woven gauze (non-Sterile) Secure with: 3 conforming gauze roll, 1 paper tape Compression Therapy: 4 Issac Wrap Dressing Change Frequency: Three times each week Wound #2 (Right Medial BKA): Cleanser: Cleanse with Normal Saline Periwound: N/A Topical: N/A Primary dressing: Collagen with Silver- will dissolve in wound. If not dissolving you may moisten with saline prior to covering. Secondary dressinx4 non-woven gauze (non-Sterile) Secure with: 3 conforming gauze roll, 1 paper tape Compression Therapy: 4 Issac Wrap Dressing Change Frequency: Three times each week * Dereje Goins MD - 08/24/2025 2:30 PM ESTAssociated Order(s): Debridement Incision Right;Lateral Leg (BKA); Debridement Incision Right;Medial Leg (BKA) Post-Procedure Diagnose(s): Non-pressure chronic ulcer of right lower leg with fat layer exposed (CMS/HCC V24, CMS/HCC V28); Non-healing wound of amputation stump (CMS/HCC V24, CMS/HCC V28); Dehiscence of operative wound, subsequent encounter; Non-pressure chronic ulcer of other part of right lowerleg with muscle involvement without evidence of necrosis (CMS/HCC V24, CMS/HCC V28) Images from the original note were not included. [facility] [place] [address] Office Visit Visit Date: 08/24/2025 Patient Name: Mark Anthony Omalley Date of : 1940 PCP: OSWALDO Roach HPI: Mark Anthony is an 84-year-old male with history of CAD status post CABG, CKD, diabetes, anxiety, hypertension, hyperlipidemia, status post pacemaker placement, and an extensive vascular history whichcan be found in vascular surgical notes. Recently, 04/11/2025 was found to have critical limb ischemia and underwent right BKA. Since then he has had multiple admissions for nonhealing wound and cellulitis. He underwent wound debridement and VAC placement on 06/[address] Banks. Wound VAC was in place for 11 days per family. He was seen again by vascular surgery on 07/20 and most recently he has been using a wet-to-dry dressing and alginate in the wounds. He reports that the wounds look good butare not healing well. He reports eating well and that he has not been walking or putting a lot of pressure on the BKA stump. 08/15/2025 Mark Anthony is here to wound care center with his spouse to follow-up on 2 wounds from his recent right BKA. He has been using collagen foam on the wound beds, offloading is much as possible and feels like the wounds are getting better. No fevers or chills. No new complaints today. Assessment and Plan: Right BKA stump wounds are making consistent progress. No evidence of infection today. Continue with collagen foam dressings to the wound base. He will continue to offload is much as possible. Follow-up in 2 weeks based on the holiday scheduling. Dehiscence of operative wound, subsequent encounter (Primary) Non-healing wound of amputation stump (CMS/HCC V24, [facility] V28) Non-pressure chronic ulcer of right lower leg with fat layer exposed (CMS/HCC V24, CMS/HCC V28) 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 without evidence of necrosis (CMS/HCC V24, CMS/HCC V28) Other orders - Debridement - Debridement All questions were answered to his satisfaction. He was counseled regarding my impressions, instructions for management, and the importance of compliance with treatment. Follow up in about 2 weeks (around 09/07/2025). >>>>>>>>>>>>>>>>>>>>>>>>>>>>>>>>>>>>>>>>>>>>>>>>>>> Vital Signs: Visit Vitals BP 138/60 Pulse 60 Temp 36.2 ??C (97.1 ??F) (Temporal) Resp 18 Review of Systems: Review of Systems Constitutional: Negative for chills and fever. PHYSICAL EXAM Physical Exam Vitals and nursing note reviewed. Constitutional: Appearance: Normal appearance. He is not ill-appearing. Pulmonary: Effort: Pulmonary effort is normal. Skin: Comments: Right BKA stump wounds have granulation tissue at the wound bases with some slough and exudate overlying them prior to debridement. There is epithelium developing at all edges and especially the larger wound may resolve with the defect with scarring. No periwound erythema. WOUND ASSESSMENT If photograph of wound not visible on this note, please check under Media tab. Wound Incision 04/11/25 Leg Right;Lateral (Active) Date First Assessed: 04/11/25 Primary Wound Type: Incision Present on Admission: No Wound Approximate Age at First Assessment (Weeks): 16 weeks Location: (c) Leg Wound Location Orientation: Right;Lateral Wound Description (Comments): BKA - Sutu... Assessments 04/11/2025 5:14 PM 08/24/2025 2:46 PM Wound Image Wound Bed Tissue Assessment -- Granulation;Sloughing Sherri-Wound Assessment -- Scarred;Intact Wound Length (cm) -- 0.5 cm Wound Width (cm) -- 0.5 cm Wound Surface Area (cm^2) -- 0.2 cm^2 Wound Depth (cm) -- 1.8 cm Wound Volume (cm^3) -- 0.236 cm^3 Wound Healing % -- 91 Closure Unable to assess -- Drainage Description -- Serosanguineous;Velazquez Drainage Amount -- Moderate Treatments -- Cleansed;Other (Comment) Dressing Issac wrap Gauze;Issac wrap Dressing Status -- Remoistened Wound Bed Granulation (%) -- 20 % Wound Bed Slough (%) -- 80 % Wound Bed Eschar (%) -- 0 % Tunneling -- 0 cm Undermining -- 0 cm Edges -- Well-defined edges Non-staged Wound Description -- Full thickness Active Orders Date Order Priority Status Authorizing Provider 08/24/25 1602 Debridement Routine Active Dereje Goins MD Inactive Orders Date Order Priority Status Authorizing Provider 08/16/25 1326 Debridement Incision Right;Lateral Leg (BKA) Routine Completed Dereje Goins MD 08/15/25 0902 Debridement Incision Right;Lateral Leg (BKA) Routine Completed Dereje Goins MD 08/03/25 1535 Debridement Incision Right;Lateral Leg (BKA) Routine Completed OSWALDO Weber 07/27/25 1347 Debridement Incision Right;Lateral Leg (BKA) Routine Completed Dereje Goins MD 06/20/25 1502 Wound Vacuum System Incision Pretibial Right Routine Discontinued OSWALDO Vizcarra - Settings: 125 mmHg - Dressing Type: Black foam 06/20/25 1502 Wound Care Inpatient Follow-Up Incision Pretibial Right Routine Completed OSWALDO Vizcarra - Reason for Consult?: wound vac change for 06/2205/25/25 0417 Wound dressing Daily Incision Pretibial Right Routine Discontinued Aditya Dia MD 05/24/25 1142 Wound dressing Daily Incision Pretibial Right Routine Discontinued Aditya Dia MD 05/24/25 0717 Wound ostomy eval and treat Incision Pretibial Right Routine Completed Aditya Dia MD - Reason for Consult?: stump infection 05/22/25 1059 Wound dressing Daily Incision Pretibial Right Routine Discontinued OSWALDO Vizcarra 04/13/25 0758 Wound dressing Every other day Incision Pretibial Right Routine Discontinued OSWALDO Vizcarra Wound Incision 07/27/25 Leg Right;Medial (Active) Date First Assessed/Time First Assessed: 07/27/25 1259 Primary Wound Type: Incision Wound Approximate Age at First Assessment (Weeks): 16 weeks Hand Hygiene Completed: Yes Location: (c) Leg Wound Location Orientation: Right;Medial Assessments 07/27/2025 1:02 PM 08/24/2025 2:48 PM Wound Image Wound Bed Tissue Assessment Granulation;Sloughing Granulation Sherri-Wound Assessment Intact Intact;Scarred Wound Length (cm) 1.4 cm 0.1 cm Wound Width (cm) 2 cm 0.5 cm Wound Surface Area (cm^2) 2.2 cm^2 0.04 cm^2 Wound Depth (cm) 0.6 cm 0.1 cm Wound Volume (cm^3) 0.88 cm^3 0.003 cm^3 Wound Healing % -- 100 Drainage Description Serosanguineous Serosanguineous;Velazquez Drainage Amount -- Moderate Treatments Cleansed Cleansed;Other (Comment) Dressing -- Issac wrap;Gauze Dressing Status -- Removed Wound Bed Granulation (%) 80 % 95 % Wound Bed Epithelialization (%) 0 % -- Wound Bed Slough (%) 20 % 5 % Wound Bed Eschar (%) 0 % 0 % Tunneling 0 cm 0 cm Undermining 0 cm 0 cm Edges Attached edges;Well-defined edges Well-defined edges;Attached edges Non-staged Wound Description Full thickness Full thickness Active Orders Date Order Priority Status Authorizing Provider 08/24/25 1602 Debridement Routine Active Dereje Goins MD Inactive Orders Date Order Priority Status Authorizing Provider 08/16/25 1327 Debridement Incision Right;Medial Leg (BKA) Routine Completed Dereje Goins MD 08/15/25 0902 Debridement Incision Right;Medial Leg (BKA) Routine Completed Dereje Goins MD 08/03/25 1535 Debridement Incision Right;Medial Leg (BKA) Routine Completed OSWALDO Weber 07/27/25 1350 Debridement Incision Right;Medial Leg (BKA) Routine Completed Dereje Goins MD Pertinent Labs: Albumin Date Value Ref Range Status 05/26/2025 2.6 (L) 3.2 - 5.0 g/dL Final WBC Date Value Ref Range Status 06/23/2025 8.4 4.8 - 10.8 K/mcL Final Hemoglobin A1C Date Value Ref Range Status 03/22/2024 6.4 <=6.5 % Final Glucose POCT Date Value Ref Range Status 06/23/2025 111 (H) 70 - 100 mg/dL Final Glucose Arterial POCT Date Value Ref Range Status 01/17/2025 127 (H) 70 - 100 mg/dL Final Procedure Note: Debridement Incision Right;Lateral Leg (BKA) Performed by: Dereje Goins MD Authorized by: Dereje Goins MD Associated wounds: Wound Incision 04/11/25 Leg Right;Lateral Consent: Consent obtained: Verbal Consent given by: Patient Risks discussed: Yes Time out: Immediately prior to the procedure a time out was called Debridement Details: Performed by: Physician Type: surgical Level: subcutaneous tissue Pain control: Lidocaine 4% Pain control administration: topical anesthesia Severity of Tissue Pre Debridement: Fat layer exposed Severity of Tissue Post Debridement: Fat layer exposed Time taken: 08/24/2025 2:46 PM Length (cm): 0.5 Width (cm): 0.5 Depth (cm): 1.8 Area (cm^2): 0.2 Time taken: 08/24/2025 2:47 PM Length (cm): 0.6 Width (cm): 0.6 Depth (cm): 1.8 Percent Debrided (%): 90 Surface Area (cm^2): 0.28 Area Debrided (cm^2): 0.25 Volume (cm^3): 0.34 Tissue and other material debrided: dermis, epidermis and subcutaneous tissue Devitalized tissue debrided: slough Instrument: Curette Amount of bleeding: medium Hemostasis obtained with: Pressure and silver nitrate Procedural pain: 0 Post-procedural pain: 0 Response to treatment: Procedure was tolerated well Debridement Incision Right;Medial Leg (BKA) Performed by: Dereje Goins MD Authorized by: Dereje Goins MD Associated wounds: Wound Incision 07/27/25 Leg Right;Medial Consent: Consent obtained: Verbal Consent given by: Patient Risks discussed: Yes Time out: Immediately prior to the procedure a time out was called Debridement Details: Performed by: Physician Type: surgical Level: subcutaneous tissue Pain control: Lidocaine 4% Pain control administration: topical anesthesia Severity of Tissue Pre Debridement: Fat layer exposed Severity of Tissue Post Debridement: Fat layer exposed Time taken: 08/24/2025 2:48 PM Length (cm): 0.1 Width (cm): 0.5 Depth (cm): 0.1 Area (cm^2): 0.04 Time taken: 08/24/2025 2:49 PM Length (cm): 0.2 Width (cm): 0.6 Depth (cm): 0.2 Percent Debrided (%): 90 Surface Area (cm^2): 0.09 Area Debrided (cm^2): 0.08 Volume (cm^3): 0.01 Tissue and other material debrided: dermis, epidermis and subcutaneous tissue Devitalized tissue debrided: slough Instrument: Curette Amount of bleeding: small Hemostasis obtained with: Pressure Procedural pain: 0 Post-procedural pain: 0 Response to treatment: Procedure was tolerated well PROVIDER ORDERS Patient Instructions PROVIDER ORDERS Go to ER if you are presenting with fever, chills, increased redness, pain, swelling, warmth aroundwound area and/or foul smelling odor. If you have any questions or concerns, please contact the [facility] at . Follow up(s)/ Referrals: Vascular: [facility] 09/13/25 Correction: Home care: [facility] Additional Orders: Increase protein in your diet to help promote wound healing, Maintain good blood sugar control Lidocaine Orders: Apply Lidocaine 5% Topical Ointment prior to debridements at Wound Care appointments Edema Control: (If your compression wrap(s) feel to tight, please elevate your leg(s) about heart level. If your wrap(s) are becoming painful and/or you loose sensation of toes/ are having toe discoloration (a change from your baseline), please remove / unwrap compression and notify [facility] at . ) 4 Issac Wrap Offloading: Limit pressure to wound as much as possible Negative Pressure Wound Therapy: (If wound vac is off/non functioning for more than 2 hours, please remove vac dressing, apply a wetto dry dressing and notify your home care agency) N/A Cellular/Tissue Based Products: N/A Bathing / Showering / Hygiene: Ok to shower with dressing on, then change dressing right after. Non-wound Condition/ Other Skin Care: N/A Wound Location(s): Wound #1 (Right Lateral BKA): Cleanser: Cleanse with Normal Saline Periwound: N/A Topical: N/A Primary dressing: Hydrofiber with silver (Aquacel AG)- cut to fit to wound bed, Collagen with Silver- will dissolve in wound. If not dissolving you may moisten with saline prior to covering. Collagento base with a piece of alginate on top to prevent the wound from closing at the top Secondary dressinx4 non-woven gauze (non-Sterile) Secure with: 3 conforming gauze roll, 1 paper tape Compression Therapy: 4 Issac Wrap Dressing Change Frequency: Three times each week Wound #2 (Right Medial BKA): Cleanser: Cleanse with Normal Saline Periwound: N/A Topical: N/A Primary dressing: Collagen with Silver- will dissolve in wound. If not dissolving you may moisten with saline prior to covering. Secondary dressinx4 non-woven gauze (non-Sterile) Secure with: 3 conforming gauze roll, 1 paper tape Compression Therapy: 4 Issac Wrap Dressing Change Frequency: Three times each week 08/24/2025 4:03 PM NIK Goins MD * Benita Wiggins RN - 08/24/2025 2:30 PM EST Discharge Patient directed to check out at assignment desk assistant and collect visit summary with wound care directions and book follow up as directed. Dressings applied: Wound #1 (Right Lateral BKA): Cleanser:Normal Saline Primary dressing: Collagen to base, pre moistened w/ Cleansed with Normal Saline, with a piece of alginate on top to prevent the wound from closing at the top Secondary dressinx4 non-woven gauze (non-Sterile) Secure with: 3 conforming gauze roll, 1 paper tape Compression Therapy: 4 Issac Wrap Wound #2 (Right Medial BKA): Cleanser:Normal Saline Primary dressing: Collagen with Silver- will dissolve in wound. If not dissolving you may moisten with saline prior to covering. Secondary dressinx4 non-woven gauze (non-Sterile) Secure with: 3 conforming gauze roll, 1 paper tape Compression Therapy: 4 Issac Wrap Dressing technique was demonstrated and explained. Patient questions answered. Pt departed from wound care center without issue or incidence. documented in this encounter Plan of Treatment Upcoming Encounters Date Type Department Care Team (Late st Contact Info) Description 08/28/2025 2:45 PM EST Appointment [facility] [address] [place] [address] 09/07/2025 2:30 PM EST Clinical Support [facility] [address] [place] [address] 09/13/2025 1:00 PM EST Office Visit Vascular Surgery - [facility] [address] [place] [address] Andie Chua PA [facility] [place] [phone] 09/14/2025 2:30 PM EST Clinical Support [facility] [address] [place] [phone] 09/21/2025 2:30 PM EST Clinical Support [facility] [address] [place] [phone] 10/05/2025 2:30 PM EST Clinical Support [facility] [address] [place] [phone] 10/12/2025 2:30 PM EST Clinical Support [facility] [address] [place] [phone] 10/19/2025 2:30 PM EST Clinical Support [facility] [address] [place] [phone] 10/26/2025 2:30 PM EST Clinical Support [facility] [address] [place] [phone] 11/02/2025 2:30 PM EST Clinical Support [facility] [address] [place] [phone] 06/06/2026 1:30 PM EDT Ancillary Procedure [facility] [address] [facility] [address] [place] [address] documented as of this encounter Goals Goal Patient Goal Type Associated Problems Recent Progress Patient-Stated? Author Decrease Wound Volume by X% by date (in notes) Care Plan Impaired Tissue Improving( 1:10 PM EST) No Ginny Martínez, GLO Patient and Caregiver Understand Wound Care Education Care Plan Impaired Tissue On track( 1:10 PM EST) No Ginny Martínez, registered nurse obstetrics volume breakdown reduced by X% by week 4 Care Plan Impaired Tissue No Ginny Martínez, registered nurse obstetrics volume breakdown reduced by X% by week 8 Care Plan Impaired Tissue No Ginny Martínez, registered nurse obstetrics volume breakdown reduced by X% by week 12 Care Plan Impaired Tissue No Ginny Martínez, RN Quit using tobacco (cigarettes, smokeless, etc) Care Plan Education needed on impact of smoking on wound No Ginny Martínez, GLO Reduce tobacco use (cigarettes, smokeless, etc) Care Plan Education needed on impact of smoking on wound No Ginny Martínez RN Decrease Wound Volume by X% by date (in notes) Care Plan Education needed on impact of smoking on wound No Ginny Martínez RN Patient and Caregiver Understand Wound Care Education Care Plan Education needed related to ulceration/compr omised skin integrity. No Ginny Martínez RN documented as of this encounter Procedures Procedure Name Priority Date/Time Associated Diagnosis Comments DEBRIDEMENT Routine 08/24/2025 2:30 PM EST Dehiscence of operative wound, subsequent encounter Non-healing wound of amputation stump (CMS/HCC V24, CMS/HCC V28) Non-pressure chronic ulcer of right lower leg with fat layer exposed (CMS/HCC V24, CMS/HCC V28) 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 without evidence of necrosis (CMS/HCC V24, CMS/HCC V28) DEBRIDEMENT Routine 08/24/2025 2:30 PM EST Dehiscence of operative wound, subsequent encounter Non-healing wound of amputation stump (CMS/HCC V24, CMS/HCC V28) Non-pressure chronic ulcer of right lower leg with fat layer exposed (CMS/HCC V24, CMS/HCC V28) 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 without evidence of necrosis (CMS/HCC V24, CMS/HCC V28) documented in this encounter Results * Debridement Incision Right;Medial Leg (BKA) (08/24/2025 2:30 PM EST) Dereje Bruno MD - 08/24/2025 2:30 PM EST Dereje Goins MD 08/24/2025 4:04 PM Debridement Incision Right;Medial Leg (BKA) Performed by: Dereje Goins MD Authorized by: Dereje Goins MD Associated wounds: Wound Incision 07/27/25 Leg Right;Medial Consent: Consent obtained: Verbal Consent given by: Patient Risks discussed: Yes Time out: Immediately prior to the procedure a time out was called Debridement Details: Performed by: Physician Type: surgical Level: subcutaneous tissue Pain control: Lidocaine 4% Pain control administration: topical anesthesia Severity of Tissue Pre Debridement: Fat layer exposed Severity of Tissue Post Debridement: Fat layer exposed Time taken: 08/24/2025 2:48 PM Length (cm): 0.1 Width (cm): 0.5 Depth (cm): 0.1 Area (cm^2): 0.04 Time taken: 08/24/2025 2:49 PM Length (cm): 0.2 Width (cm): 0.6 Depth (cm): 0.2 Percent Debrided (%): 90 Surface Area (cm^2): 0.09 Area Debrided (cm^2): 0.08 Volume (cm^3): 0.01 Tissue and other material debrided: dermis, epidermis and subcutaneous tissue Devitalized tissue debrided: slough Instrument: Curette Amount of bleeding: small Hemostasis obtained with: Pressure Procedural pain: 0 Post-procedural pain: 0 Response to treatment: Procedure was tolerated well us Dereje Goins MD IN CLINIC/BEDSIDE ORDERAB LES Final Result * Debridement Incision Right;Lateral Leg (BKA) (08/24/2025 2:30 PM EST) Dereje Bruno MD - 08/24/2025 2:30 PM EST Dereje Goins MD 08/24/2025 4:04 PM Debridement Incision Right;Lateral Leg (BKA) Performed by: Dereje Goins MD Authorized by: Dereje Goins MD Associated wounds: Wound Incision 04/11/25 Leg Right;Lateral Consent: Consent obtained: Verbal Consent given by: Patient Risks discussed: Yes Time out: Immediately prior to the procedure a time out was called Debridement Details: Performed by: Physician Type: surgical Level: subcutaneous tissue Pain control: Lidocaine 4% Pain control administration: topical anesthesia Severity of Tissue Pre Debridement: Fat layer exposed Severity of Tissue Post Debridement: Fat layer exposed Time taken: 08/24/2025 2:46 PM Length (cm): 0.5 Width (cm): 0.5 Depth (cm): 1.8 Area (cm^2): 0.2 Time taken: 08/24/2025 2:47 PM Length (cm): 0.6 Width (cm): 0.6 Depth (cm): 1.8 Percent Debrided (%): 90 Surface Area (cm^2): 0.28 Area Debrided (cm^2): 0.25 Volume (cm^3): 0.34 Tissue and other material debrided: dermis, epidermis and subcutaneous tissue Devitalized tissue debrided: slough Instrument: Curette Amount of bleeding: medium Hemostasis obtained with: Pressure and silver nitrate Procedural pain: 0 Post-procedural pain: 0 Response to treatment: Procedure was tolerated well us Dereje Goins MD IN CLINIC/BEDSIDE ORDERAB LES Final Result documented in this encounter Visit Diagnoses Diagnosis Dehiscence of operative wound, subsequent encounter- Primary Non-healing wound of amputation stump ([facility] V24, [facility] V28) Non-pressure chronic ulcer of right lower leg with fat layer exposed ([facility] V24, [facility] V28) 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 without evidence of necrosis ([facility] V24, [facility] V28) Encounter for adjustment or management of cardiac device documented in this encounter Additional Health Concerns Active Problems Noted Date Diagnosed Date Impaired Tissue 07/27/2025 Education needed on impact of smoking on wound 1 Education needed related to ulceration/compromised skin integrity. 07/27/2025 documented as of this encounter Care Teams Clerk Guide Relationship Specialty Start Date End Date Diana Corona PA [address] [place] [id number] PCP - General Physician Record Pressman 04/10/25 documented as of this encounter
[2025-08-27 12:50] VITALS: BP 124/60; PULSE 69; O2SAT 95
--- NOTE | 2025-08-27 12:50 | A.OFFVIS_ITS ---
Vital Signs 08/27/25 12:50 Height 5 ft 8 in BP 124/60 Blood Pressure Location Lt brachial Position Sitting Pulse 69 Pulse Source Pulse Oximeter Pulse Oximetry (%) 95 Oxygen Delivery Method Room Air Intake Visit Reasons: dm Intake Note: Patient present today for Type 2 Diabetes Mellitus Last Diabetic eye exam: Last exam was on 09/14/24 by [facility]. Last Podiatry Visit: Patient has upcoming appt in September 2025. Random Glucose: 132 mg/dl HgA1C: 5.7% Cash Specialist Required: No Accompanied by: Spouse Allergies Iodinated Contrast Media (IV Dye, Iodine Containing) Allergy (Severe, Verified 08/27/25 12:58) SWELLING sulfamethoxazole (From Bactrim) Allergy (Severe, Verified 08/27/25 12:58) SWELLING RASH tetracycline (Tetracycline) Allergy (Severe, Verified 08/27/25 12:58) SWELLING , RASH trimethoprim (From Bactrim) Allergy (Severe, Verified 08/27/25 12:58) SWELLING RASH Sulfa (Sulfonamide Antibiotics) Allergy (Unknown, Verified 08/27/25 12:58) hives IVP dye Allergy (Unknown, Uncoded 08/27/25 12:58) Anaphylaxis Renée Dry Allergy (Unknown, Uncoded 08/27/25 12:58) rash tetracycline Allergy (Unknown, Uncoded 08/27/25 12:58) hives HPI HPI dm: Details: Patient is an 84-year-old male with a significant past medical history of stage 3b kidney disease, diabetic neuropathy, type 2 diabetes, hypertension, PAD and hyperlipidemia presenting today for a diabetic follow-up. Endo: His A1c was 6.3 and today is 5.7. He is currently on Ozempic 2 mg weekly. -Stopped using tresiba 3 months ago. -weight is stable cgm-He is within target 93% time, 6% high, 1% hypoglycemic. He did have a low glucose reading He does suffer from significant painful neuropathy. He has tried gabapentin 300 mg 2 to 3 times a day without significant improvement. He has tried Nucynta but that is not as effective. Vasc: He follows with vascular surgery from [facility]. Since I last saw him he has had bypass on right leg and 4th right toe amputation (January 2025) CV: Blood pressure is in the office is 124/60. He is on atenolol 50 mg, furosemide 20 mg. Cholesterol is controlled with atorvastatin 80 mg and fenofibrate 48 mg daily. Nephro: Follows with Dr. Hill. Discussed possible jardiance and he declines. [facility] Medical History (Updated 08/03/25 @ 10:36 by Shae Motley NP) Anxiety Amputation below knee Macrocytic anemia Anemia Skin cancer Hx of cardiac pacemaker Below-knee amputation of right lower extremity PAD (peripheral artery disease) CAD (coronary artery disease) Aneurysm of left leg Surgery, elective Obesity due to excess calories Hx of aneurysm Hx of myocardial infarction Carpal tunnel syndrome Throat cancer Ischemic colitis Pacemaker Diverticulitis BPH (benign prostatic hyperplasia) Type 2 diabetes mellitus with chronic kidney disease Chronic kidney disease, stage 3 Type 2 diabetes mellitus with diabetic polyneuropathy Essential hypertension Hyperlipidemia LDL goal <70 Surgical History History of amputation of toe History of amputation of foot History of back surgery H/O neck surgery History of prostate surgery Hx of angioplasty Hx of hernia repair Hx of tonsillectomy Family History Father Prostate cancer Mother Breast cancer Diabetes Social History Household Members: Spouse Alcohol intake: never Patient Tobacco Use Status: Former Tobacco user Tobacco use type: Cigarette Years Smoked: 40 e-Cigarette/Vaping Use: Never Used Second Hand Smoke Exposure: No Cognitive needs: No Hearing needs: No Vision needs: No Physical Exam Vital Signs: Last Vital Signs Pulse 69 08/27/25 12:50 BP 124/60 08/27/25 12:50 Pulse Ox 95 08/27/25 12:50 Oxygen Delivery Method Room Air 08/27/25 12:50 Const Orientation/consciousness: patient oriented x3 HEENT Ears: hearing grossly normal bilaterally Neck Thyroid: Thyroid normal Lymphatic: no lymphadenopathy noted Resp Auscultation: clear to auscultation bilaterally Cardio Rate: regular rate Rhythm: regular rhythm Heart sounds: S1 normal heart sound present and S2 normal heart sound present Skin General skin exam: no rashes or lesions noted Neuro General: patient oriented x3 Results AMB Hemoglobin A1c AMB Hemoglobin A1c 5.7 % Last Edit by LORENZO Tena on 08/27/25 13:09 Results Reviewed Results Reviewed: Laboratory Last Values Glucose (Clinic) 132 mg/dL (60-115) H 08/27/25 13:00 Laboratory Tests 03/02/25 05/01/25 08/03/25 15:53 08:15 09:52 Creatinine 1.60 H Estim Creat Clear Calc 32.6 Estimated GFR 41 Random Glucose 143 H Hgb A1c (Clinic) 6.3 H AST 22 ALT 11 Alkaline Phosphatase 57 Urine Creatinine 82.15 Urine Microalbumin 86.0 Microalb/Creat Ratio 104.6 H Assessment & Plan Assessment & Plan (1) Type 2 diabetes mellitus with chronic kidney disease: Code(s): E11.22 - Type 2 diabetes mellitus with diabetic chronic kidney disease Category: Medical Qualifiers: Diabetes mellitus detention insulin use: with detention use Chronic kidney disease stage: stage 4 (severe) Qualified Code(s): E11.22 - Type 2 diabetes mellitus with diabetic chronic kidney disease; N18.4 - Chronic kidney disease, stage 4 (severe); Z79.4 - long term care administrator (current) use of insulin Plan: d/c tresiba Continue Ozempic f/u 6 months or prn (2) Essential hypertension: Code(s): I10 - Essential (primary) hypertension Category: Medical Plan: wnl continue current treatment plan Orders: Orders AMB Hemoglobin A1c Today E11.22 - Type 2 diabetes mellitus with diabetic chronic kidney disease, N18.4 - Chronic kidney disease, stage 4 (severe), Z13.9 - Encounter for screening, unspecified, Z79.4 - custodial (current) use of insulin Coding Level of Care Code Est Pt Level 4 (89981) Diagnoses Type 2 diabetes mellitus with stage 4 chronic kidney disease, with long-term current use of insulin E11.22; N18.4; Z79.4 Diabetes mellitus long term care administrator insulin use: with long term care administrator use Chronic kidney disease stage: stage 4 (severe) Essential hypertension I10
[2025-08-27 13:03] LABS: Glucose, Whole Blood 132 mg/dL (60-115)
--- OUTSIDE RECORDS SUMMARY | 2025-08-27 17:00 | XMS_ITS ---
Care Plan Created on: August 27, 2025 Mark nAthony Omalley : 1940 Sex: Male Author Organization [address] [facility] Address [address] [place] [address] Phone Care Team Providers Care Industrial Maintenance Mechanic Name Role Phone Diana Corona Primary Care Provider [phone] Active Problems Problem Noted Date Diagnosed Date Non-healing wound of amputat ion stump [place] [place] [facility] [place] 06/19/2025 Amputation stump infection ([facility] [place], [facility] [place] 05/21/2025 Anemia 04/11/2025 Chronic renal insufficiency 04/11/2025 Pacemaker 04/11/2025 Chronic obstructive pulmonar y disease ([facility] [place], [facility] V28) 04/11/2025 Gangrene of toe of right foot ([facility] [place], [facility] V28) 02/05/2025 Occlusion of arterial bypass graft ([facility] [place] 10/26/2024 Acute deep vein thrombosis ( DVT) of femoral vein of right lower extremity ([facility] [place] [facility] V28) 10/26/2024 Diabetic neuritis ([facility] [place] [facility] V28) Hypertension 08/29/2024 Lumbar spondylosis 09/22/2022 Overview (08/29/2024): Last Assessment & Plan: Mr. Omalley underwent bilateral radiofrequency ablation on 10/08/2022 at [facility] with some improvement lasting 1 [...] Bacterial pneumonia 04/21/2022 CHF (congestive heart failure) ([facility] V24, [facility] V28) 04/21/2022 Gastrointestinal hemorrhage 04/21/2022 Neuropathy 04/21/2022 SSS (sick sinus syndrome) ([facility] [place] [facility] V28) 04/21/2022 Overview (08/29/2024): Last Assessment & Plan: This is been stable. He is status post pacemaker generator replacement as he was end-of-life. This is working well. He is feeling better now that his heart rates are in the higher range. Acute hypoxemic respiratory failure ([facility] V24, [facility] V28) 04/21/2022 Heart block AV complete ([facility] V24, [facility] V2 8) 04/01/2022 AAA (abdominal aortic aneurysm) ([facility] [place] Overview (08/29/2024): Last Assessment & Plan: He had a repeat echo done recently. This showed no changes when compared to before. He has been followed by vascular surgery. Malignant neoplasm of right vocal cord ([facility] V24, [facility] V28) 11/06/2020 Chronic kidney disease (CKD) stage G3b/A1, moderately decreased glomerular filtration rate (GFR) between 30-44 mL/min/1.73 square meter and albuminuria creatinine ratio les* ([facility] [place], [facility] V28) 11/06/2020 Anxiety 08/09/2020 BPH (benign prostatic hyperplasia) 08/09/2020 Coronary artery disease invo lving [place] heart without angina pectoris 08/09/2020 Overview (08/29/2024): [...] lifestyle choices and diet. Peripheral vascular disease ([facility] V24) 2019 Overview (08/29/2024): Last Assessment & Plan: This is stable. Again this is being followed by Dr. Banks. He states that he will be getting a lower extremity arterial study done in the next couple weeks. ST elevation myocardial infa rction (STEMI) ([facility] V24, [facility] V28) 08/09/2020 Overview (08/29/2024): Last [...] low cholesterol diet and exercise. Throat cancer ([facility] V24, [facility] V28) 020 Overview (08/29/2024): 2020: received RT 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 ([facility] V24, [facility] V28) 08/09/2020 Type 2 diabetes mellitus wit h renal manifestations ([facility] V24, [facility] V28) 08/09/2020 Resolved Problems Problem Noted Date Diagnosed Date Resolved Date Ischemic leg 01/08/2025 04/13/2025 Critical limb ischemia of ri ght lower extremity ([facility] V24, [facility] V28) 01/08/2025 Epistaxis 10/28/2024 10/28/2024 Additional Health Concerns Active Problems Noted Date Diagnosed Date Impaired Tissue 07/27/2025 Education needed on impact of smoking on wound 1 Education needed related to ulceration/compromised skin integrity. 07/27/2025 Goals Goal Patient Goal Type Associated Problems Recent Progress Patient-Stated? Author Decrease Wound Volume by X% by date (in notes) Care Plan Impaired Tissue Improving( 1:10 PM EST) Ginny Justin, RN Patient and Caregiver Understand Wound Care Education Care Plan Impaired Tissue On track( 025 1:10 PM EST) No Ginny Martínez RN Wound volume breakdown reduced by X% by week 4 Care Plan Impaired Tissue No Ginny Martínez RN Wound volume breakdown reduced by X% by week 8 Care Plan Impaired Tissue No Ginny Martínez RN Wound volume breakdown reduced by X% by week 12 Care Plan Impaired Tissue No Ginny Martínez RN Quit using tobacco (cigarettes, smokeless, etc) Care Plan Education needed on impact of smoking on wound No Ginny Martínez RN Reduce tobacco use (cigarettes, smokeless, etc) Care [...] omised skin integrity. No Ginny Martínez RN Interventions Care Plan Interventions Intervention Entry Date Outcome Provide caregiver with wound care procedure information 07/27/2025 Educate caregiver on proper wound care procedures 07/27/2025 Give provider list of wound care supplies 07/27/2025 Refill wound care supplies 07/27/2025 Send Wound Care Supplies 07/27/2025 Give provider list of wound care supplies 07/27/2025 Refill wound care supplies 07/27/2025 Send Wound Care Supplies 07/27/2025 Provide caregiver with wound care procedure information 07/27/2025 Educate caregiver on proper wound care procedures 07/27/2025 Document patient eligibility for HBO 07/27/2025 Assess patient for HBO treatment 07/27/2025 Record wound depth 07/27/2025 Record total wound area 07/27/2025 Measure wound progress 07/27/2025 Create an action plan identifying patient strengths and supports 07/27/2025 Establish quit date with patient 07/27/2025 Discuss prior cessation attempts 07/27/2025 Discuss preferred method of cessation and plan 07/27/2025 Discuss barriers to smoking cessation 07/27/2025 Discuss smoking status with patient 07/27/2025 Create an action plan identifying patient strengths and supports 07/27/2025 Establish quit date with patient 07/27/2025 Discuss prior cessation attempts 07/27/2025 Discuss preferred method of cessation and plan 07/27/2025 Discuss barriers to smoking cessation 07/27/2025 Discuss smoking status with patient 07/27/2025 Provide caregiver with wound care procedure information 07/27/2025 Educate caregiver on proper wound care procedures 07/27/2025 Document patient eligibility for HBO 07/27/2025 Assess patient for HBO treatment 07/27/2025 Record wound depth 07/27/2025 Record total wound area 07/27/2025 Measure wound progress 07/27/2025 Provide caregiver with wound care procedure information 07/27/2025 Educate caregiver on proper wound care procedures 07/27/2025 Document patient eligibility for HBO 07/27/2025 Assess patient for HBO treatment 07/27/2025 Record wound depth 07/27/2025 Record total wound area 07/27/2025 Measure wound progress 07/27/2025 Provide caregiver with wound care procedure information 07/27/2025 Educate caregiver on proper wound care procedures 07/27/2025 Document patient eligibility for HBO 07/27/2025 Assess patient for HBO treatment 07/27/2025 Record wound depth 07/27/2025 Record total wound area 07/27/2025 Measure wound progress 07/27/2025 Provide caregiver with wound care procedure information 07/27/2025 Educate caregiver on proper wound care procedures 07/27/2025 Give provider list of wound care supplies 07/27/2025 Refill wound care supplies 07/27/2025 Send Wound Care Supplies 07/27/2025 Give provider list of wound care supplies 07/27/2025 Refill wound care supplies 07/27/2025 Send Wound Care Supplies 07/27/2025 Provide caregiver with wound care procedure information 07/27/2025 Educate caregiver on proper wound care procedures 07/27/2025 Document patient eligibility for HBO 07/27/2025 Assess patient for HBO treatment 07/27/2025 Record wound depth 07/27/2025 Record total wound area 07/27/2025 Measure wound progress 07/27/2025 Related Goals and Interventions Goal Associated Intervent ions Decrease Wound Volume by X% by date (in notes) Give provider list of wound care supplie s; Refill wound care supplies; Send Wound Care Supplies; Provide caregiver with wound care procedure information; Educate caregiver on proper wound care procedures; Document patient eligibility for HBO; Assess patient for HBO treatment; Record wound depth; Record total wound area; Measure wound progress Patient and Caregiver Unders tand Wound Care Education Provide caregiver with wound care proced ure information; Educate caregiver on proper wound care procedures; Give provider list of wound care supplies; Refill wound care supplies; Send Wound Care Supplies Wound volume breakdown reduc ed by X% by week 4 Provide caregiver with wound care proced ure information; Educate caregiver on proper wound care procedures; Document patient eligibility for HBO; Assess patient for HBO treatment; Record wound depth; Record total wound area; Measure wound progress Wound volume breakdown reduc ed by X% by week 8 Provide caregiver with wound care proced ure information; Educate caregiver on proper wound care procedures; Document patient eligibility for HBO; Assess patient for HBO treatment; Record wound depth; Record total wound area; Measure wound progress Wound volume breakdown reduc ed by X% by week 12 Provide caregiver with wound care proced ure information; Educate caregiver on proper wound care procedures; Document patient eligibility for HBO; Assess patient for HBO treatment; Record wound depth; Record total wound area; Measure wound progress Quit using tobacco (cigarett es, smokeless, etc) Create an action plan identifying patien t strengths and supports; Establish quit date with patient; Discuss prior cessation attempts; Discuss preferred method of cessation and plan; Discuss barriers to smoking cessation; Discuss smoking status with patient Reduce tobacco use (cigarett es, smokeless, etc) Create an action plan identifying patien t strengths and supports; Establish quit date with patient; Discuss prior cessation attempts; Discuss preferred method of cessation and plan; Discuss barriers to smoking cessation; Discuss smoking status with patient Decrease Wound Volume by X% by date (in notes) Give provider list of wound care supplie s; Refill wound care supplies; Send Wound Care Supplies; Provide caregiver with wound care procedure information; Educate caregiver on proper wound care procedures; Document patient eligibility for HBO; Assess patient for HBO treatment; Record wound depth; Record total wound area; Measure wound progress Patient and Caregiver Unders tand Wound Care Education Provide caregiver with wound care proced ure information; Educate caregiver on proper wound care procedures; Give provider list of wound care supplies; Refill wound care supplies; Send Wound Care Supplies
--- OUTSIDE RECORDS SUMMARY | 2025-08-27 17:00 | XMS_ITS ---
Author Organization [address] [facility] Address [address] [place] [address] Phone Care Team Providers Care Rotary Cutter Operator Name Role Phone Diana Corona Primary Care Provider [phone] Active Problems Problem Noted Date Diagnosed Date Non-healing wound of amputat ion stump ([facility] V24, [facility] V28) 06/19/2025 Amputation stump infection ([facility] V24, [facility] V28) 05/21/2025 Anemia 04/11/2025 Chronic renal insufficiency 04/11/2025 Pacemaker 04/11/2025 Chronic obstructive pulmonar y disease ([facility] V24, [facility] V28) 04/11/2025 Gangrene of toe of right foot ([facility] V24, [facility] V28) 02/05/2025 Occlusion of arterial bypass graft ([facility] V24) 10/26/2024 Acute deep vein thrombosis ( DVT) of femoral vein of right lower extremity ([facility] V24, [facility] V28) 10/26/2024 Diabetic neuritis ([facility] V24, [facility] V28) Hypertension 08/29/2024 Lumbar spondylosis 09/22/2022 Overview (08/29/2024): Last Assessment & Plan: Mr. Omalley underwent bilateral radiofrequency ablation on 10/08/2022 at [facility] with some improvement lasting 1 [...] CHF (congestive heart failure) ([facility] V24, [facility] V28) 04/21/2022 Gastrointestinal hemorrhage 04/21/2022 Neuropathy 04/21/2022 SSS (sick sinus syndrome) ([facility] V24, [facility] V28) 04/21/2022 Overview (08/29/2024): Last Assessment & Plan: This is been stable. He is status post pacemaker generator replacement as he was end-of-life. This is working well. He is feeling better now that his heart rates are in the higher range. Acute hypoxemic respiratory failure ([facility] V24, [facility] V28) 04/21/2022 Heart block AV complete ([facility] V24, [facility] V2 8) 04/01/2022 AAA (abdominal aortic aneurysm) ([facility] V24) Overview (08/29/2024): Last Assessment & Plan: He had a repeat echo done recently. This showed no changes when compared to before. He has been followed by vascular surgery. Malignant neoplasm of right vocal cord ([facility] V24, [facility] V28) 11/06/2020 Chronic kidney disease (CKD) stage G3b/A1, moderately decreased glomerular filtration rate (GFR) between 30-44 mL/min/1.73 square meter and albuminuria creatinine ratio les* ([facility] V24, [facility] V28) 11/06/2020 Anxiety 08/09/2020 BPH (benign prostatic hyperplasia) 08/09/2020 Coronary artery disease invo lving [place] heart without angina pectoris 08/09/2020 Overview (08/29/2024): [...] diet. Peripheral vascular disease ([facility] V24) 2019 Overview (08/29/2024): Last Assessment & Plan: This is stable. Again this is being followed by Dr. Banks. He states that he will be getting a lower extremity arterial study done in the next couple weeks. ST elevation myocardial infa rction (STEMI) ([facility] V24, [facility] V28) 08/09/2020 Overview (08/29/2024): Last Assessment & [...] and exercise. Throat cancer ([facility] V24, [facility] V28) 020 Overview (08/29/2024): 2020: received RT 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 ([facility] V24, [facility] V28) 08/09/2020 Type 2 diabetes mellitus wit h renal manifestations ([facility] V24, [facility] V28) 08/09/2020 Current Treatment and Therapy Plans No current plan information found. Past Treatment and Therapy Plans No past plan information found. Lifetime Dose Tracking * Chemical Lifetime Dose Automatic Entry Manual Entr y Radiation 4,333.74 mGy 0 mGy 4,333.74 mGy Fluoro Time 11.2 minutes 0 minutes 11.2 minutes Resolved Problems Problem Noted Date Diagnosed Date Resolved Date Ischemic leg 01/08/2025 04/13/2025 Critical limb ischemia of ri ght lower extremity ([facility] V24, [facility] V28) 01/08/2025 Epistaxis 10/28/2024 10/28/2024
--- OUTSIDE RECORDS SUMMARY | 2025-08-27 17:00 | XMS_ITS | Encounter Summary ---
Author Organization [facility] Address [address] [place] [address] Phone Care Team Providers Care Unix System Administrator Name Role Phone Jaya Brock MD Primary Care Provider Encounter Details Date Type Department Care Team (Latest Contact Info) Description 12/11/2020 Ancillary Orders [facility] [address], [address] [place] [address] Kash Boles MD [address] [place] [phone] [email or web address] Sick sinus syndrome Social History [...] for device: SSS. 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 Atrial pacin.6% Ventricular pacin.6% Battery: 2 yrs Additional comments: Device functioning appropriately. Normal device function. Patient to follow-up with Charbel Dai of [facility], will transfer [facility] when requested Report prepared by Saúl Mckeon RN us Kash Boles MD [facility] ORDER АННА Final Result documented in this encounter Visit Diagnoses Diagnosis Sick sinus syndrome Sinoatrial node dysfunction Sick sinus syndrome Sinoatrial node dysfunction documented in this encounter Care Teams Unix System Administrator Relationship Specialty Start Date End Date Jaya Brock MD PCP - General 09/07/19 documented as of this encounter Additional Source Comments The information contained in this document represents components of the legal health record. It is not the complete legal health record.[facility]
--- OUTSIDE RECORDS SUMMARY | 2025-08-27 17:00 | XMS_ITS | Encounter Summary ---
Author Organization [facility] Address [address] [place] [phone] Phone Care Team Providers Care Portable Grinding Machine Operator Name Role Phone Jaya Brock MD Primary Care Provider Encounter Details Date Type Department Care Team (Late st Contact Info) Description 11/26/2020 Ancillary Orders Non-Invasive Cardiology [address] [place] [address] Ulisses Lyn MD [address] [place] [address] [email or web address] Sick sinus syndrome Social History Tobacco [...] dysfunction documented in this encounter Care Teams Portable Grinding Machine Operator Relationship Specialty Start Date End Date aJya Brock MD PCP - General 09/07/19 documented as of this encounter Additional Source Comments The information contained in this document represents components of the legal health record. It is not the complete legal health record.[facility]
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
--- OUTSIDE RECORDS SUMMARY | 2025-08-27 17:00 | XMS_ITS | Encounter Summary ---
Author Organization [facility] Address [address] [place] [address] Phone Care Team Providers Care At Home Independent Call Center Agent Name Role Phone Jaya Brock MD Primary Care Provider Encounter Details Date Type Department Care Team (Late st Contact Info) Description 12/11/2020 Procedure Pass Non-Invasive Cardiology [address] [place] [address] Social History Tobacco Use Types Packs/Day Years [...] on filedocumented in this encounter Care Teams At Home Independent Call Center Agent Relationship Specialty Start Date End Date Jaya Brock MD PCP - General 09/07/19 documented as of this encounter Additional Source Comments The information contained in this document represents components of the legal health record. It is not the complete legal health record.[facility]
--- OUTSIDE RECORDS SUMMARY | 2025-08-27 17:00 | XMS_ITS | Clinical Summary ---
Author Organization 300 [facility] Address [address] [place] [address] Phone Care Team Providers Care Kettleman Name Role Phone Diana Corona Primary Care Provider [phone] Allergies Active Allergy Reactions Criticality Noted Date Comments Iodinated Contrast Media Rash High 08/29/2024 Rash / dermatitis SWELLING Sulfa (Sulfonamide Antibiotics) Rash High 08/29/2024 Rash/dermatitis Sulfamethoxazole-Trimethopri m Rash High 08/29/2024 Tetracyclines Rash High 12/18/2020 Medications aspirin 81 mg chewable tablet Chew 1 tablet (81 mg total) 1 (one) time each day. 9 Active cyanocobalamin (VITAMIN B-12) 500 mcg tablet Take by mouth. 1000mg daily Active lansoprazole (PREVACID) [address] capsule Take 1 capsule (30 mg total) by mouth 1 (one) time each day. 1 Active nitroglycerin (NITROSTAT) 0.[address] 0.4 mg under the tongue every 5 minutes as needed. Active BD Ev 2nd Gen Pen Needle 32 gauge x 5/32 needle USE DIRECTED TO INJECT INSULIN 4 Active flash glucose sensor kit USE DIRECTED EVERY 14 DAYS Active atorvastatin (LIPITOR) 80 mg tablet Take 1 tablet (80 mg total) by mouth at bedtime. 2 Active atenoloL (TENORMIN) 50 mg tablet Take 1 tablet (50 mg total) by mouth at bedtime. 2 Active glucose sensor,implant-de xamet device 1 Product by Does not apply route every 14 days. 4 Active pen needle, diabetic (BD Ultra-Fine Micro Pen Needle) 32 gauge x 1/4 needle DIRECTED TWICE DAILY 2 Active furosemide (LASIX) 20 mg tablet Take 1 tablet (20 mg total) by mouth 1 (one) time each day. 2 Active flash glucose scanning reader (FreeStyle Vivek 2 [place]) misc 1 Product by Does not apply route every 14 days 3 Active Nucynta ER 50 mg 12 hr [...] 60 each 11 5 02/10/20 26 Active DULoxetine (CYMBALTA) [address] capsule Take 1 capsule (60 mg total) by mouth 1 (one) time each day. 5 Active gabapentin (NEURONTIN) 300 mg capsule Take [...] under the skin at bedtime as needed (HYPERGLYCEMI A). Active fenofibrate (TRICOR) 145 mg tablet Take 1 tablet (145 mg total) by mouth 1 (one) time each day. Active oxyCODONE (ROXICODONE) 5 mg immediate release tabletIndications :Amputation stump infection ([facility] V24, [facility] V28) Take 2 tablets (10 mg total) by mouth every 6 (six) hours if needed for severe pain. 10mg every 6 hours for severe pain as needed, in couple days, reduce to 5mg every 6 hours as needed for pain. Max Daily Amount: 40 mg 5 Active predniSONE (DELTASONE) 50 mg tabletIndications :PAD (peripheral artery disease) ([facility] V24),Status post endovascular aneurysm repair (EVAR) Take one tablet 13hours prior to Cat Scan Contrast, then take one tablet 7 hours prior to contrast, then take one tablet 1 hour priot to contrast. 3 each 5 Active diphenhydrAMINE (BENADRYL) 50 mg tabletIndications :PAD (peripheral artery disease) ([facility] V24),Status post endovascular aneurysm repair (EVAR) Take one tablet one hour before Cat Scan Contrast. 1 tablet 5 Active Active Problems Problem Noted Date Diagnosed Date Non-healing wound of amputat ion stump ([facility] V24, [facility] V28) 06/19/2025 Amputation stump infection ([facility] V24, [facility] V28) 05/21/2025 Anemia 04/11/2025 Chronic renal insufficiency 04/11/2025 Pacemaker 04/11/2025 Chronic obstructive pulmonar y disease ([facility] V24, [facility] V28) 04/11/2025 Gangrene of toe of right foot ([facility] V24, [facility] V28) 02/05/2025 Occlusion of arterial bypass graft ([facility] V24) 10/26/2024 Acute deep vein thrombosis ( DVT) of femoral vein of right lower extremity ([facility] V24, [facility] V28) 10/26/2024 Diabetic neuritis ([facility] V24, [facility] V28) Hypertension 08/29/2024 Lumbar spondylosis 09/22/2022 Overview (08/29/2024): Last Assessment & Plan: Mr. Omalley underwent bilateral radiofrequency ablation on 10/08/2022 at [facility] with some improvement lasting 1 month. He [...] Bacterial pneumonia 04/21/2022 CHF (congestive heart failure) (CMS/HCC V24, CMS /HCC V28) 04/21/2022 Gastrointestinal hemorrhage 04/21/2022 Neuropathy 04/21/2022 SSS (sick sinus syndrome) ([facility] V24, [facility] V28) 04/21/2022 Overview (08/29/2024): Last Assessment & Plan: This is been stable. He is status post pacemaker generator replacement as he was end-of-life. This is working well. He is feeling better now that his heart rates are in the higher range. Acute hypoxemic respiratory failure ([facility] V24, [facility] V28) 04/21/2022 Heart block AV complete ([facility] V24, [facility] V2 8) 04/01/2022 AAA (abdominal aortic aneurysm) ([facility] V24) Overview (08/29/2024): Last Assessment & Plan: He had a repeat echo done recently. This showed no changes when compared to before. He has been followed by vascular surgery. Malignant neoplasm of right vocal cord ([facility] V24, [facility] V28) 11/06/2020 Chronic kidney disease (CKD) stage G3b/A1, moderately decreased glomerular filtration rate (GFR) between 30-44 mL/min/1.73 square meter and albuminuria creatinine ratio les* ([facility] V24, [facility] V28) 11/06/2020 Anxiety 08/09/2020 BPH (benign prostatic hyperplasia) 08/09/2020 Coronary artery disease invo lving [place] heart without angina pectoris 08/09/2020 Overview (08/29/2024): [...] lifestyle choices and diet. Peripheral vascular disease ([facility] V24) 2019 Overview (08/29/2024): Last Assessment & Plan: This is stable. Again this is being followed by Dr. Banks. He states that he will be getting a lower extremity arterial study done in the next couple weeks. ST elevation myocardial infa rction (STEMI) ([facility] V24, [facility] V28) 08/09/2020 Overview (08/29/2024): Last Assessment & [...] low cholesterol diet and exercise. 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 ([facility] V24, [facility] V28) 08/09/2020 Type 2 diabetes mellitus wit h renal manifestations ([facility] V24, [facility] V28) 08/09/2020 Resolved Problems Problem Noted Date Diagnosed Date Resolved Date Ischemic leg 01/08/2025 04/13/2025 Critical limb ischemia of ri ght lower extremity ([facility] V24, [facility] V28) 01/08/2025 Epistaxis 10/28/2024 10/28/2024 Encounters Date Type Department Care Team Description 08/24/2025 2:30 PM EST Office Visit [facility] [address] [place] [phone] Dereje Goins MD Dehiscence of operative wound, subsequent encounter (Primary Dx); Non-healing wound of amputation stump ([facility] V24, [facility] V28); Non-pressure chronic ulcer of right lower leg with fat layer exposed ([facility] V24, [facility] V28); 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 without evidence of necrosis (CMS/HCC V24, CMS/HCC V28) 08/16/2025 12:45 PM EST Office Visit [facility] [address] [place] [phone] Dereje Goins MD Dehiscence of operative wound, subsequent encounter (Primary Dx); Non-healing wound of amputation stump (CMS/[facility] V24, CMS/[facility] V28); Non-pressure chronic ulcer of right lower leg with fat layer exposed (CMS/HCC V24, CMS/HCC V28); 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 without evidence of necrosis (CMS/[facility] V24, CMS/[facility] V28) 08/15/2025 2:00 PM EST Office Visit [facility] [place] [address] [place] [phone] Andie Chua PA PAD (peripheral artery disease) ([facility] V24) (Primary Dx); Status post endovascular aneurysm repair (EVAR); S/P BKA (below knee amputation) unilateral, right ([facility] V24, [facility] V28); Non-healing wound of amputation stump ([facility] V24, CMS/[facility] V28) 08/10/2025 3:30 PM EST Office Visit [facility] [address] [place] [phone] Dereje Goins MD Dehiscence of operative wound, subsequent encounter (Primary Dx); Non-healing wound of amputation stump ([facility] V24, CMS/[facility] V28); Non-pressure chronic ulcer of right lower leg with fat layer exposed (CMS/[facility] V24, CMS/[facility] V28); 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 without evidence of necrosis ([facility] V24, CMS/[facility] V28) 08/03/2025 3:30 PM EDT Office Visit [facility] [address] [place] [phone] Bharathi Atkinson PA Dehiscence of operative wound, subsequent encounter (Primary Dx); Non-healing wound of amputation stump (CMS/HCC V24, CMS/HCC V28); Non-pressure chronic ulcer of right lower leg with fat layer exposed (CMS/HCC V24, CMS/HCC V28); 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 without evidence of necrosis (CMS/HCC V24, CMS/HCC V28) 07/27/2025 12:45 PM EDT Consult [facility] [address] [place] [phone] Dereje Goins MD Surgical wound dehiscence, initial encounter (Primary Dx); Non-healing wound of amputation stump (CMS/HCC V24, CMS/HCC V28); Non-pressure chronic ulcer of right lower leg with fat layer exposed (CMS/HCC V24, CMS/HCC V28); 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 without evidence of necrosis (CMS/HCC V24, CMS/HCC V28) 07/20/2025 10:00 AM EDT Office Visit Vascular Surgery - [address] [phone] Andie Chua PA S/P BKA (below knee amputation) unilateral, right (CMS/HCC V24, CMS/HCC V28) (Primary Dx); Non-healing wound of amputation stump (CMS/HCC V24, CMS/HCC V28); Infrarenal abdominal aortic aneurysm (AAA) without rupture ([facility] V24) 07/04/2025 4:00 PM EDT Office Visit Vascular Surgery [address] [phone] Kinsey Boykin MD S/P BKA (below knee amputation) unilateral, right ([facility] V24, CMS/[facility] V28) (Primary Dx); PAD (peripheral artery disease) ([facility] V24) 06/27/2025 Telephone Vascular Surgery [address] [phone] Ahmet Banks MD 06/23/2025 8:22 AM EDT Anesthesia Event [facility] OR [address] [place] [phone] Sergio Cadet MD 06/23/2025 8:00 AM EDT - 06/23/2025 9:15 AM EDT Surgery [facility] OR [address] [place] [phone] Ahmet Banks MD DEBRIDEMENT BK AMP APPLICATION OF WOUND VAC 06/20/2025 2:07 PM EDT Anesthesia Event [facility] OR [address] [place] [phone] Bharathi Maguire DO 06/20/2025 1:00 PM EDT - 06/20/2025 2:30 PM EDT Surgery [facility] OR [address] [place] [phone] Ahmet Banks MD RIGHT BKA WOUND DEBRIDEMENT, WASHOUT, VAC PLACEMENT 06/19/2025 2:22 PM EDT - 06/24/2025 2:10 PM EDT Hospital Encounter [facility] [address] [place] [phone] Irving Lebron MD Wyman, Tim, MD Kokosadze, Estate, MD Non-healing wound of amputation stump ([facility] V24, [facility] V28) (Primary Dx); Amputation stump infection (CMS/HCC V24, CMS/[facility] V28); Non-healing surgical wound, subsequent encounter Discharge Disposition: Home-Health Care [facility] 06/15/2025 9:30 AM EDT Office Visit [facility] [place] [address] [place] [phone] Ahmet Banks MD S/P BKA (below knee amputation) unilateral, right (CMS/[facility] V24, [facility] V28) (Primary Dx) 06/06/2025 2:00 PM EDT Ancillary Procedure [facility] - [facility] [address] [facility] [address] [place] [phone] Encounter for adjustment or management of cardiac device 06/06/2025 1:00 PM EDT Office Visit [facility] [place] [address] [facility] [address] [place] [phone] Mary Lou Barragan PA S/P BKA (below knee amputation) unilateral, right (CMS/HCC V24, CMS/HCC V28) (Primary Dx) 06/05/2025 Telephone [facility] [place] [address] [facility] [address] [place] [phone] Ahmet Banks MD 05/28/2025 Telephone [facility] [place] [address] [facility] [address] [place] [phone] Andie Chua PA from Last 3 Months Immunizations Immunization Administration Dates Next Due Influenza trivalent, with pr eservative (Fluzone; Afluria) 6mo and older 06/25/2005 Influenza, Unspecified 07/03/2022,08/04/2021 Pneumococcal conjugate 13 va lent (Prevnar 13, PCV13) 2mo and older 01/29/2018,07/10/2015 Pneumococcal polysaccharide 23 valent (Pneumovax 23) 2yo and older 07/04/2019 Td, Unspecified 04/12/2001 Zoster recombinant (Shingrix) 19yo and older ,01/29/2018 Surgical History Surgery Date Site/Laterality Comments KNEE ARTHROSCOPY 2008 Right PROCEDURE: TN ARTHROSCOPY KNEE DIAGNOSTIC W/WO SYNOVIAL BX SPX; COMMENT: Meniscus TURP / TRANSURETHRAL INCISIO N / DRAINAGE PROSTATE 2004 PROCEDURE: HISTORICAL TURP OTHER SURGICAL HISTORY PROCEDURE: TN DUP-SCAN LXTR ART/ARTL BPGS UNI/LMTD STUDY; COMMENT: Angioplasty and stenting of the left leg PACEMAKER IMPLANT PROCEDURE: HISTORICAL PACEMAKER COLONOSCOPY 2011 PROCEDURE: HISTORICAL COLONOSCOPY OTHER SURGICAL HISTORY PROCEDURE: TN BIOPSY OROPHARYNX; COMMENT: Throat cancer had radiation x6 weeks [facility] EYE SURGERY PROCEDURE: HISTORICAL EYE SURGERY; COMMENT: [place] TONSILLECTOMY PROCEDURE: HISTORICAL TONSILLECTOMY OTHER SURGICAL HISTORY PROCEDURE: ---- HEMORRHOIDS ---- HERNIA REPAIR Bilateral PROCEDURE: REPAIR INGUINAL HERNIA CORONARY ARTERY BYPASS GRAFT 1996 PROCEDURE: HISTORICAL CABG; COMMENT: x4 NECK SURGERY PROCEDURE: HISTORICAL NECK SURGERY CARPAL TUNNEL RELEASE Right PROCEDURE: TN NEUROPLASTY &/TRANSPOS MEDIAN NRV CARPAL TUNNE; COMMENT: dr. sage BACK SURGERY 10/08/2022 Bilateral PROCEDURE: HISTORICAL BACK SURGERY; COMMENT: Bilateral L3, L4 and L5 radiofrequency neurotomy Dr. Sahu OTHER SURGICAL HISTORY 06/15/2023 PROCEDURE: TN SLCTV CATHJ 3RD+ ORD SLCTV ABDL PEL/LXTR BRNCH OTHER SURGICAL HISTORY 06/15/2023 PROCEDURE: TN SLCTV CATHJ EA 2ND+ ORD ABDL PEL/LXTR ART BRNCH OTHER SURGICAL HISTORY 06/15/2023 PROCEDURE: X-RAY EXAM OF ARM/LEG ARTERY OTHER SURGICAL HISTORY 06/15/2023 PROCEDURE: ULTRASOUND GUIDANCE FOR VASCULAR AC OTHER SURGICAL HISTORY 06/01/2024 PROCEDURE: TN EVASC RPR DPLMNT WDAFA-GO-RJTFB NDGFT OTHER SURGICAL HISTORY 06/01/2024 PROCEDURE: TN OPN ILIAC ART EXPOS PROSTH/ILIAC OCCLS EVASC UNI OTHER SURGICAL HISTORY 06/01/2024 PROCEDURE: TN PERQ ACCESS & CLOSURE FEM ART FOR DELIVERY NDGFT OTHER SURGICAL HISTORY 06/01/2024 PROCEDURE: TN REVASC INTRAVASC LITHOTRIPSY OTHER SURGICAL HISTORY 06/28/2024 Left PROCEDURE: TN BYP OTH/THN VEIN FEM-ANT TIBL PST TIBL/PRONEAL Medical History Medical History Date Comments 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 ([facility] V24, [facility] V28) 08/09/2020 DX:Type 2 diabetes mellitus with neurological manifestation (HCC) CKD (chronic kidney disease) stage 3, GFR 30-59 ml/min ([facility] V24, [facility] V28) 11/06/2020 DX:CKD (chronic kidney disea se) stage 3, GFR 30-59 ml/min ([facility]) Type 2 diabetes mellitus wit h renal manifestations ([facility] V24, [facility] V28) 08/09/2020 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 Pacemaker 08/09/2020 DX:Pacemaker ST elevation myocardial infa rction (STEMI) ([facility] V24, [facility] V28) 08/09/2020 DX:ST elevation hesham cardial infarction (STEMI) (HCC) Throat cancer ([facility] V24, [facility] V28) 08/09/2020 DX:Throat cancer (HCC); COMM ENT: 2020: received RT Hyperlipidemia 08/09/2020 DX:Hyperlipidemi a HTN (hypertension) 08/09/2020 DX:HTN (hyper tension) History of diverticulitis 08/09/2020 DX:His tory of diverticulitis Peripheral vascular disease ([facility] V24) 08/09/2020 DX:Peripheral vascular disea se (HCC) Diabetic neuritis ([facility] V 24, 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) [...] EST Inhaled Oxygen Concentration - - Weight 81.6 kg (180 lb) 07/27/2025 1:11 PM EDT Height 172.7 cm (5' 8 ) 08/15/2025 1:56 PM EST Body Mass Index 27.37 07/27/2025 1:11 PM EDT Plan of Treatment Upcoming Encounters Date Type Department Care Team (Late st Contact Info) Description 08/28/2025 2:45 PM EST Appointment [facility] CT Scan [address] [place] [phone] 09/07/2025 2:30 PM EST Clinical Support [facility] [address] [place] [phone] 09/13/2025 1:00 PM EST Office Visit [facility] [place] [address] [place] [phone] Andie Chua PA [address] [place] [phone] 09/14/2025 2:30 PM EST Clinical Support [facility] [address] [place] [phone] 09/21/2025 2:30 PM EST Clinical Support [facility] [address] [place] [phone] 10/05/2025 2:30 PM EST Clinical Support [facility] [address] [place] [phone] 10/12/2025 2:30 PM EST Clinical Support [facility] [address] [phone] 10/19/2025 2:30 PM EST Clinical Support [facility] [address] [place] [phone] 10/26/2025 2:30 PM EST Clinical Support [facility] [address] [place] [phone] 11/02/2025 2:30 PM EST Clinical Support [facility] [address] [place] [phone] 06/06/2026 1:30 PM EDT Ancillary Procedure [facility] - [address] [place] [phone] Health Maintenance Due Date Last Done Comments Diabetes: Annual Retina Eye Exam 1950 Diabetes: Annual Foot Exam 09/07/2024 09/07/2023 Diabetes: Annual Urine Albumin-Creatinine Ratio (uACR) 09/08/2024 09/08/2023 Diabetes: Blood Sugar Control Test (HGBA1C) 09/21/2024 03/22/2024, 03/22/2024 Depression Screening 10/04/2024 Medicare Annual Wellness Visit 02/16/2025 02/17/2024 COVID-19 Vaccine (6 - Pfizer risk season) 2026 07/24/2025, 07/10/2022, 05/20/2021, Additional history exists Social Influencers of Health [...] Adult Patients Completed 09/28/2023 Influenza Vaccine Completed 07/10/2025, , 06/29/2023, Additional history exists HIB Vaccines Aged Out [...] on patient's age to complete this topic Goals Goal Patient Goal Type Associated Problems Recent Progress Patient-Stated? Author Decrease Wound Volume by X% by date (in notes) Care Plan Impaired Tissue Improving( 1:10 PM EST) No Ginny Martínez RN Patient and Caregiver Understand Wound Care Education Care Plan Impaired Tissue On track( 1:10 PM EST) No Ginny Martínez RN [...] omised skin integrity. No Ginny Martínez RN Medical Devices Implanted Type Area Head Of Art Device Identifier Shelf Expiration Date Model / Serial / Lot Medt-Card Kend[place] Xt Dr Mri [id number] Implanted: (Quantity not on file) Cardiac Pacemaker [employer] - CARDIAC RHYTH-CRDM KENDELL XT DR MRI [id number] / [id number] / Medt-Card [place] Xt Dr Steff [id number] Implanted: (Quantity not on file) Cardiac Pacemaker [employer] - CARDIAC RHYTH-CRDM KENDELL XT DR LAMA / [id number] / Hemostat Absorb Surgicel 2x4in Fibrillar - Sn/A - [id number] Implanted:Qty : 1 on 01/17/2025 by Ahmet Banks MD at [facility] Hemostasis Right: Leg JNJ [employer] 07/03/20271961 / N/A / [id number] Sealant Fibrin Vistaseal 4ml - [id number] - [id number] Implanted:Qty : 1 on 01/17/2025 by Ahmet Banks MD at [facility] Hemostasis Right: Leg [id number] [employer] [id number] 07/18/2026 [id number] / [id number] / [id number] Hemostat Absorb 1x2 Surgicel Fibrillar - Sn/A - [id number] Implanted:Qty : 1 on 02/07/2025 by Ahmet Banks MD at [facility] Hemostasis Right: Foot [employer] 07/03/20261960 / N/A / [id number] Vein Saphns 50-59cm A B Ab O Blood Type - [id number] - [id number] Implanted:Qty : 1 on 01/17/2025 by Ahmet Banks MD at [facility] Osteobiologics Right: Leg [employer] 04/05/2029 [id number] / [id number] / [id number] 128 Patch Biol Xenosure .8x8cm - Sn/A - [id number] Implanted:Qty : 1 on 01/17/2025 by Ahmet Banks MD at [facility] Vascular Grafts Right: Leg [employer] 12/29/2029 E0.8P8 / N/A / [id number] Procedures Procedure Name Priority Date/Time Associated [...] necrosis (CMS/HCC V24, CMS/HCC V28) DEBRIDEMENT Routine 08/16/2025 12:45 PM EST Dehiscence of operative wound, subsequent encounter Non-healing wound of amputation stump (CMS/HCC V24, CMS/HCC V28) 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 without evidence of necrosis (CMS/HCC V24, CMS/HCC V28) DEBRIDEMENT Routine 08/16/2025 12:45 PM EST Dehiscence of operative wound, subsequent encounter Non-healing wound of amputation stump (CMS/HCC V24, CMS/HCC V28) Non-pressure chronic ulcer of right lower leg with fat layer exposed (CMS/HCC V24, CMS/HCC V28) DEBRIDEMENT Routine 08/10/2025 3:30 PM EST Non-healing wound of amputation stump (CMS/HCC V24, CMS/HCC V28) Non-pressure chronic ulcer of right lower leg with fat layer exposed (CMS/HCC V24, CMS/HCC V28) 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 without evidence of necrosis (CMS/HCC V24, CMS/HCC V28) DEBRIDEMENT Routine 08/10/2025 3:30 PM EST Non-healing wound of amputation stump (CMS/HCC V24, CMS/HCC V28) Non-pressure chronic ulcer of right lower leg with fat layer exposed (CMS/HCC V24, CMS/HCC V28) 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 without evidence of necrosis (CMS/HCC V24, CMS/HCC V28) DEBRIDEMENT Routine 08/03/2025 3:30 PM EDT Dehiscence of operative wound, subsequent encounter Non-healing wound of amputation stump (CMS/HCC V24, CMS/HCC V28) Non-pressure chronic ulcer of right lower leg with fat layer exposed (CMS/HCC V24, CMS/HCC V28) DEBRIDEMENT Routine 08/03/2025 3:30 PM EDT Dehiscence of operative wound, subsequent encounter Non-healing wound of amputation stump (CMS/HCC V24, CMS/HCC V28) Non-pressure chronic ulcer of right lower leg with fat layer exposed (CMS/HCC V24, CMS/HCC V28) DEBRIDEMENT Routine 07/27/2025 12:45 PM EDT Non-healing wound of amputation stump (CMS/HCC V24, CMS/HCC V28) Non-pressure chronic ulcer of right lower leg with fat layer exposed (CMS/HCC V24, CMS/HCC V28) 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 without evidence of necrosis (CMS/HCC V24, CMS/HCC V28) DEBRIDEMENT Routine 07/27/2025 12:45 PM EDT Non-healing wound of amputation stump (CMS/HCC V24, CMS/HCC V28) Non-pressure chronic ulcer of right lower leg with fat layer exposed (CMS/HCC V24, CMS/HCC V28) 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 without evidence of necrosis (CMS/HCC V24, CMS/HCC V28) POC GLUCOSE Routine 06/24/2025 11:52 AM EDT [...] PM EDT CARDIAC DEVICE CHECK- IN CLINIC- [facility] [place] [place] Routine 06/06/2025 1:59 PM EDT Encounter for adjustment or management of cardiac device HEMOGLOBIN A1C Routine 03/22/2024 URINE ALBUMIN CREATININE RATIO Routine 09/08/2023 LIPID PANEL Routine 09/08/2023 DIABETES FOOT EXAM Routine 09/07/2023 from Last 3 Months or Most Recently Relevant to Health Maintenance Results * Debridement Incision Right;Medial Leg (BKA) [...] ORDERAB LES Final Result * Debridement Incision Right;Medial Leg (BKA) (08/16/2025 12:45 PM EST) Dereje Bruno MD - 08/16/2025 12:45 PM EST Dereje Goins MD 08/16/2025 1:38 PM Debridement Incision Right;Medial Leg (BKA) Performed [...] Post Debridement: Fat layer exposed Time taken: 08/16/2025 12:57 PM Length (cm): 0.4 Width (cm): 1 Depth (cm): 0.2 Area (cm^2): 0.31 Time taken: 08/16/2025 12:58 PM Length (cm): 0.4 Width (cm): 1.1 Depth (cm): 0.3 Percent Debrided (%): 100 Surface Area (cm^2): 0.44 Area Debrided (cm^2): 0.44 Volume (cm^3): 0.13 Tissue and other material debrided: dermis, epidermis and subcutaneous tissue Devitalized tissue debrided: slough Instrument: Curette Amount of bleeding: small Hemostasis obtained with: Pressure Procedural pain: 0 Post-procedural pain: 0 Response to treatment: Procedure was tolerated well us Dereje Goins MD IN CLINIC/BEDSIDE ORDERAB LES Final Result * Debridement Incision Right;Lateral Leg (BKA) (08/16/2025 12:45 PM EST) Dereje Bruno MD - 08/16/2025 12:45 PM EST Dereje Goins MD 08/16/2025 1:38 PM Debridement Incision Right;Lateral Leg (BKA) Performed [...] topical anesthesia Severity of Tissue Pre Debridement: Muscle involvement without necrosis Severity of Tissue Post Debridement: Muscle involvement without necrosis Time taken: 08/16/2025 12:56 PM Length (cm): 0.7 Width (cm): 1 Depth (cm): 2.1 Area (cm^2): 0.55 Time taken: 08/16/2025 12:57 PM Length (cm): 0.8 Width (cm): 1.1 Depth (cm): 2.2 Percent Debrided (%): 100 Surface Area (cm^2): 0.88 Area Debrided (cm^2): 0.88 Volume (cm^3): 1.94 Tissue and other material debrided: dermis, epidermis and subcutaneous tissue Devitalized tissue debrided: slough Instrument: Curette Amount of bleeding: small Hemostasis obtained with: Pressure Procedural pain: 0 Post-procedural pain: 0 Response to treatment: Procedure was tolerated well us Dereje Goins MD IN CLINIC/BEDSIDE ORDERAB LES Final Result * Debridement Incision Right;Medial Leg (BKA) (08/10/2025 3:30 PM EST) Dereje Bruno MD - 08/10/2025 3:30 PM EST Dereje Goins MD 08/15/2025 9:03 AM Debridement Incision Right;Medial Leg (BKA) Performed by: [...] Post Debridement: Fat layer exposed Time taken: 08/10/2025 3:39 PM Length (cm): 0.6 Width (cm): 1.3 Depth (cm): 0.3 Area (cm^2): 0.61 Time taken: 08/10/2025 3:40 PM Length (cm): 0.7 Width (cm): 1.4 Depth (cm): 0.3 Percent Debrided (%): 100 Surface Area (cm^2): 0.98 Area Debrided (cm^2): 0.98 Volume (cm^3): 0.29 Tissue and other material debrided: dermis, epidermis and subcutaneous tissue Devitalized tissue debrided: slough Instrument: Curette Amount of bleeding: small Hemostasis obtained with: Pressure Procedural pain: 0 Post-procedural pain: 0 Response to treatment: Procedure was tolerated well us Dereje Goins MD IN CLINIC/BEDSIDE ORDERAB LES Final Result * Debridement Incision Right;Lateral Leg (BKA) (08/10/2025 3:30 PM EST) Dereje Bruno MD - 08/10/2025 3:30 PM EST Dereje Goins MD 08/15/2025 9:03 AM Debridement Incision Right;Lateral Leg (BKA) Performed by: [...] Post Debridement: Fat layer exposed Time taken: 08/10/2025 3:40 PM Length (cm): 1.2 Width (cm): 1.7 Depth (cm): 1.4 Area (cm^2): 1.6 Time taken: 08/10/2025 3:41 PM Length (cm): 1.3 Width (cm): 1.7 Depth (cm): 1.4 Percent Debrided (%): 100 Surface Area (cm^2): 2.21 Area Debrided (cm^2): 2.21 Volume (cm^3): 3.09 Tissue and other material debrided: dermis, epidermis and subcutaneous tissue Devitalized tissue debrided: slough Instrument: Curette Amount of bleeding: small Hemostasis obtained with: Pressure Procedural pain: 0 Post-procedural pain: 0 Response to treatment: Procedure was tolerated well us Dereje Goins MD IN CLINIC/BEDSIDE ORDERAB LES Final Result * Debridement Incision Right;Medial Leg (BKA) (08/03/2025 3:30 PM EDT) Dereje Bruno MD - 08/03/2025 3:30 PM EDT Dereje Goins MD 08/07/2025 12:49 PM Debridement Incision Right;Medial Leg (BKA) Performed by: OSWALDO Weber Authorized by: OSWALDO Weber Associated wounds: Wound Incision 07/27/25 Leg Right;Medial Consent: Consent obtained: Verbal Consent given by: Patient Risks discussed: Yes Time out: Immediately prior to the procedure a time out was called Debridement Details: Performed by: OSWALDO Type: surgical Level: subcutaneous tissue Pain control: Lidocaine 4% Severity of Tissue Pre Debridement: Fat layer exposed Severity of Tissue Post Debridement: Fat layer exposed Time taken: 08/03/2025 3:23 PM Length (cm): 1 Width (cm): 1.9 Depth (cm): 0.5 Area (cm^2): 1.49 Time taken: 08/03/2025 3:24 PM Length (cm): 1 Width (cm): 1.9 Depth (cm): 0.5 Percent Debrided (%): 75 Surface Area (cm^2): 1.9 Area Debrided (cm^2): 1.42 Volume (cm^3): 0.95 Tissue and other material debrided: subcutaneous tissue Devitalized tissue debrided: biofilm and slough Instrument: Curette Amount of bleeding: none Hemostasis obtained with: Not applicable Procedural pain: 0 Post-procedural pain: 0 Response to treatment: Procedure was tolerated well us Bharathi CHACON IN CLINIC/BEDSIDE ORDERABLE S Final Result * Debridement Incision Right;Lateral Leg (BKA) (08/03/2025 3:30 PM EDT) Dereje Bruno MD - 08/03/2025 3:30 PM EDT Dereje Goins MD 08/07/2025 12:49 PM Debridement Incision Right;Lateral Leg (BKA) Performed by: OSWALDO Weber Authorized by: OSWALDO Weber Associated wounds: Wound Incision 04/11/25 Leg Right;Lateral Consent: Consent obtained: Verbal Consent given by: Patient Risks discussed: Yes Time out: Immediately prior to the procedure a time out was called Debridement Details: Performed by: OSWALDO Type: surgical Level: subcutaneous tissue Pain control: Lidocaine 4% Severity of Tissue Pre Debridement: Fat layer exposed Severity of Tissue Post Debridement: Fat layer exposed Time taken: 08/03/2025 3:24 PM Length (cm): 1.2 Width (cm): 2 Depth (cm): 1.4 Area (cm^2): 1.88 Time taken: 08/03/2025 3:25 PM Length (cm): 1.2 Width (cm): 2 Depth (cm): 1.4 Percent Debrided (%): 75 Surface Area (cm^2): 2.4 Area Debrided (cm^2): 1.8 Volume (cm^3): 3.36 Tissue and other material debrided: subcutaneous tissue Devitalized tissue debrided: biofilm and slough Instrument: Curette Amount of bleeding: none Hemostasis obtained with: Not applicable Procedural pain: 0 Post-procedural pain: 0 Response to treatment: Procedure was tolerated well us Bharathi CHACON IN CLINIC/BEDSIDE ORDERABLE S Final Result * Debridement Incision Right;Medial Leg (BKA) (07/27/2025 12:45 PM EDT) Dereje Bruno MD - 07/27/2025 12:45 PM EDT Dereje Goins MD 07/27/2025 2:26 PM Debridement Incision Right;Medial Leg (BKA) Performed [...] Post Debridement: Fat layer exposed Time taken: 07/27/2025 1:02 PM Length (cm): 1.4 Width (cm): 2 Depth (cm): 0.6 Area (cm^2): 2.8 Time taken: 07/27/2025 1:03 PM Length (cm): 1.4 Width (cm): 2 Depth (cm): 0.7 Percent Debrided (%): 100 Surface Area (cm^2): 2.8 Area Debrided (cm^2): 2.8 Volume (cm^3): 1.96 Tissue and other material debrided: dermis, epidermis and subcutaneous tissue Devitalized tissue debrided: exudate, fibrin and slough Instrument: Curette Amount of bleeding: small Hemostasis obtained with: Pressure Procedural pain: 0 Post-procedural pain: 0 Response to treatment: Procedure was tolerated well us Dereje Goins MD IN CLINIC/BEDSIDE ORDERAB LES Final Result * Debridement Incision Right;Lateral Leg (BKA) (07/27/2025 12:45 PM EDT) Narrative Dereje Goins MD - 07/27/2025 12:45 PM EDT Dereje Goins MD 07/27/2025 2:26 PM Debridement Incision Right;Lateral Leg (BKA) Performed [...] topical anesthesia Severity of Tissue Pre Debridement: Muscle involvement without necrosis Severity of Tissue Post Debridement: Muscle involvement without necrosis Time taken: 07/27/2025 1:04 PM Length (cm): 1.4 Width (cm): 2.5 Depth (cm): 1.4 Area (cm^2): 3.5 Time taken: 07/27/2025 1:05 PM Length (cm): 1.4 Width (cm): 2.5 Depth (cm): 1.5 Percent Debrided (%): 100 Surface Area (cm^2): 3.5 Area Debrided (cm^2): 3.5 Volume (cm^3): 5.25 Tissue and other material debrided: dermis, epidermis and subcutaneous tissue Devitalized tissue debrided: slough Instrument: Curette Amount of bleeding: small Hemostasis obtained with: Pressure Procedural pain: 0 Post-procedural pain: 0 Response to treatment: Procedure was tolerated well Dereje Goins MD IN CLINIC/BEDSIDE ORDERAB LES Final Result * POC Glucose manually resulted (06/24/2025 11:52 AM EDT) Only the most recent of4 resultswithin the time period is included. Blood Capillary blood specimen / Unknown 06/24/2025 11:52 AM EDT Kerry Ji MD POINT OF CARE TEST ENTER/ELSA T ORDERABLES Final Result * (ABNORMAL) POCT Glucose, blood (06/23/2025 9:33 AM EDT) Only the most recent of4 resultswithin the time period is included. [facility] Glucose POCT 111(H) 70 - 100 mg/dL 06/23/2025 9:34 AM EDT [facility] Blood Capillary blood specimen / Unknown 06/23/2025 9:33 AM EDT 06/23/2025 9:35 AM EDT Kerry Ji MD LAB POINT OF CARE TE ST DOCKED DEVICE UNSOLICITED RESULTS Final Result Performing Organization Address City/[facility]/ZIP Co de Phone Number [facility] [address] [place] [address], [place] [phone] * Troponin I high sensitivity (06/23/2025 7:25 AM EDT) Only the most recent of2 resultswithin the time period is included. [facility] High Sensitivity Troponin I 33 <=79 ng/L [...] Re sult [facility] [address] [place] [address], [place] [phone] * SST tube (06/23/2025 7:25 AM EDT) Extra Tube Hold for add-ons. 06/23/2025 9:01 AM EDT [facility] Comment:Auto resulted. Blood Venous blood specimen / Unknown 06/23/2025 7:25 AM EDT 06/23/2025 7:32 AM EDT us Kerry Ji MD LAB BLOOD ORDERABLES Final R esult [facility] [address] [place] [address], [place] [phone] * Lavender tube (06/23/2025 7:25 AM EDT) Extra Tube Hold for add-ons. 06/23/2025 9:01 AM EDT [facility] Comment:Auto resulted. Blood Venous blood specimen / Unknown 06/23/2025 7:25 AM EDT 06/23/2025 7:32 AM EDT us Kerry Ji MD LAB BLOOD ORDERABLES Final R esult Performing Organization Address City/[facility]/ZIP Co de Phone Number [facility] [address] [place] [address], [place] [phone] * (ABNORMAL) CBC auto differential (06/23/2025 6:32 AM EDT) Only the most recent of3 resultswithin the time period is included. WBC 8.4 4.8 - 10.8 K/mcL LAB HEMETOLOGY METHOD 06/23/2025 7:02 AM EDT [facility] RBC 3.20(L) 4.50 - 5.50 M/mcL LAB HEMETOLOGY METHOD 06/23/2025 7:02 AM EDT [facility] Hemoglobin 10.2(L) 13.5 - 17.5 g/dL LAB HEMETOLOGY METHOD 06/23/2025 7:[address] [facility] Hematocrit 31.2(L) 42.0 - 54.0 % LAB HEMETOLOGY METHOD 06/23/2025 7:[address] [facility] MCV 99.0(H) 79.0 - 98.0 FL LAB HEMETOLOGY METHOD 06/23/2025 7:[address] [facility] MCH 32.4(H) 27.0 - 32.0 pcg LAB HEMETOLOGY METHOD 06/23/2025 7:[address] [facility] MCHC 32.7 32.0 - 37.0 g/dL LAB HEMETOLOGY METHOD 06/23/2025 7:[address] [facility] RDW 16.9(H) 11.0 - 15.0 % LAB HEMETOLOGY METHOD 06/23/2025 7:[address] [facility] Platelets 209 130 - 400 K/mcL LAB HEMETOLOGY METHOD 06/23/2025 7:[address] [facility] MPV 9.5 7.0 - 11.0 FL LAB HEMETOLOGY METHOD 06/23/2025 7:[address] [facility] NRBC 0.0 <1.0 % LAB HEMETOLOGY METHOD 06/23/2025 7:[address] [facility] NRBC Absolute 0.00 <0.10 K/mcL LAB HEMETOLOGY METHOD 06/23/2025 7:[address] [facility] Neutrophils Relative 60.8 % LAB HEMETOLOGY METHOD 06/23/2025 7:[address] [facility] Lymphocytes Relative 19.9 % LAB HEMETOLOGY METHOD 06/23/2025 7:[address] [facility] Monocytes Relative 13.4 % LAB HEMETOLOGY METHOD 06/23/2025 7:[address] [facility] Eosinophils Relative 5.2 % LAB HEMETOLOGY METHOD 06/23/2025 7:02 AM EDT [facility] Basophils Relative 0.5 % LAB HEMETOLOGY METHOD 06/23/2025 7:[address] [facility] Immature Granulocytes Relative 0.2 % LAB HEMETOLOGY METHOD 06/23/2025 7:02 AM EDT [facility] Neutrophils Absolute 5.12 1.50 - 7.00 K/mcL LAB HEMETOLOGY METHOD 06/23/2025 7:02 AM EDT [facility] Lymphocytes Absolute 1.68 1.00 - 5.00 K/mcL LAB HEMETOLOGY METHOD 06/23/2025 7:[address] [facility] Monocytes Absolute 1.13(H) 0.20 - 1.00 K/mcL LAB HEMETOLOGY METHOD 06/23/2025 7:02 AM EDT [facility] Eosinophils Absolute 0.44 0.00 - 0.50 K/mcL LAB HEMETOLOGY METHOD 06/23/2025 7:02 AM EDT [facility] Basophils Absolute 0.04 0.00 - 0.20 K/mcL LAB HEMETOLOGY METHOD 06/23/2025 7:[address] [facility] Immature Granulocytes Absolute 0.02 0.00 - 0.03 K/mcL LAB HEMETOLOGY METHOD 06/23/2025 7:02 AM T [facility] Blood Venous blood specimen / Unknown Venipuncture / Unknown 06/23/2025 6:32 AM EDT 06/23/2025 6:42 AM EDT [facility] [employer] LAB BLOOD ORDERABLES Final R esult [facility] [address] [place] [address], * Magnesium (06/23/2025 6:31 AM EDT) Pathologist [facility] Magnesium 2.0 1.9 - 2.6 mg/dL LAB CHEMISTRY METHOD 06/23/2025 7:[address] [facility] Blood Venous blood specimen / Unknown Venipuncture / Unknown 06/23/2025 6:31 AM EDT 06/23/2025 6:42 AM EDT us Brisa CHACON LAB BLOOD ORDERABLES Final Re sult [facility] [address] [place] [address], [place] [phone] * (ABNORMAL) Basic metabolic panel (06/23/2025 6:31 AM EDT) Only the most recent of4 resultswithin the time period is included. Pathologist [facility] Sodium 140 133 - 145 mmol/L LAB CHEMISTRY METHOD 06/23/2025 7:[address] [facility] Potassium 3.6 3.5 - 5.5 mmol/L LAB CHEMISTRY METHOD 06/23/2025 7:[address] [facility] Chloride 108 96 - 110 mmol/L LAB CHEMISTRY METHOD 06/23/2025 7:[address] [facility] CO2 27 21 - 32 mmol/L LAB CHEMISTRY METHOD 06/23/2025 7:[address] [facility] Anion Gap 5 3 - 11 LAB CHEMISTRY METHOD 06/23/2025 7:[address] [facility] Glucose 104(H) 70 - 100 mg/dL LAB CHEMISTRY METHOD 06/23/2025 7:[address] [facility] BUN 23 5 - 25 mg/dL LAB CHEMISTRY METHOD 06/23/2025 7:[address] [facility] Creatinine 1.25 0.70 - 1.30 mg/dL LAB CHEMISTRY METHOD 06/23/2025 7:14 AM EDT [facility] eGFR 56(L) >=60 mL/min/1. 73m2 LAB CHEMISTRY METHOD 06/23/2025 7:14 AM EDT [facility] Comment:Calculation based on the Chronic Kidney Disease Epidemiology Collaboration (CKD-EPI) equation refit without adjustment for race. BUN/Creatinine Ratio 18.4 LAB CHEMISTRY METHOD 06/23/2025 7:14 AM EDT [facility] Calcium 9.1 8.5 - 10.5 mg/dL LAB CHEMISTRY METHOD 06/23/2025 7:14 AM EDT [facility] Blood Venous blood specimen / Unknown Venipuncture / Unknown 06/23/2025 6:31 AM EDT 06/23/2025 6:42 AM EDT Kerry Ji MD LAB BLOOD ORDERABLES Final R esult Performing Organization Address City/[facility] Co de Phone Number [facility] [address] [place] [address], * ECG 12 lead (06/23/2025 5:08 AM EDT) Ventricular Rate ECG 70 BPM GEMUSE Atrial Rate 70 BPM GEMUSE P-R Interval 256 ms GEMUSE QRS Duration 116 ms GEMUSE Q-T Interval 432 ms GEMUSE QTc 466 ms GEMUSE T [place] -52 degrees GEMUSE ECG Interpretation AV dual-paced rhythm with prolonged AV conduction Abnormal ECG When compared with ECG of 21-MAY-2025 18:41, No significant change was found Confirmed by Brandon FARRELL JAMES ([id number]) on 06/23/2025 10:24:16 PM GEMUSE 06/23/2025 5:08 AM EDT 06/23/2025 10:24 PM EDT Brisa CHACON ECG ORDERABLES Final Result Performing Organization Address [facility]/ZIP Co de Phone Number GEMUSE * Vancomycin, trough Please draw after 1999 but prior to next dose @2100, thank you (06/21/2025 8:04 PM EDT) Vancomycin Trough 14.5 10.0 - 20.0 mcg/mL LAB CHEMISTRY METHOD 06/21/2025 9:04 PM EDT [facility] Blood Venous blood specimen / Unknown Venipuncture / Unknown 06/21/2025 8:04 PM EDT 06/21/2025 8:09 PM EDT Andie CHACON LAB BLOOD ORDERABLES Final Res ult [facility] [address] [place] [address], [place] [phone] * TH AN ENDOTRACHEAL(NO CHARGE) (06/20/2025 2:33 [...] * Vancomycin random (06/20/2025 9:50 AM EDT) [facility] Vancomycin Rm 19.8 mcg/mL LAB CHEMISTRY METHOD 06/20/2025 10:48 AM EDT [facility] Blood Venous blood specimen / Unknown Venipuncture / Unknown 06/20/2025 9:50 AM EDT 06/20/2025 9:56 AM EDT Rashid CHACON LAB BLOOD ORDERABLES Final Resu lt [facility] [address] [place] [address], * (ABNORMAL) CBC - Every 3 Days (06/20/2025 6:12 AM EDT) [facility] WBC 7.9 4.8 - 10.8 K/mcL LAB HEMETOLOGY METHOD 06/20/2025 8:08 AM EDT [facility] RBC 3.10(L) 4.50 - 5.50 M/mcL LAB HEMETOLOGY [facility] Hemoglobin 9.8(L) 13.5 - 17.5 g/dL LAB HEMETOLOGY METHOD 06/20/2025 8:[address] [facility] Hematocrit 31.4(L) 42.0 - 54.0 % LAB HEMETOLOGY METHOD 06/20/2025 8:08 AM EDT [facility] MCV 101.9(H) 79.0 - 98.0 FL LAB HEMETOLOGY METHOD 06/20/2025 8:08 AM EDT [facility] MCH 31.8 27.0 - 32.0 pcg LAB HEMETOLOGY METHOD 06/20[facility]2025 [facility] MCHC 31.2(L) 32.0 - 37.0 [...] Res ult [facility] [address] [place] [address], * Type and screen (06/19/2025 12:29 PM EDT) ABO Group O 06/19/2025 2:10 PM EDT [facility] Rh Type Positive 06/19/2025 2:10 PM EDT [facility] Antibody Screen Negative 06/19/2025 2:10 PM EDT [facility] Blood Venous blood specimen / Unknown Venipuncture / Unknown 06/19/2025 12:29 PM EDT 06/19/2025 1:28 PM EDT Naveen Dickinson MD LAB BLOOD BANK TEST ORDERABLES F inal Result Performing Organization Address [facility]/ZIP Co de Phone Number [facility] [address] [place] [address], [place] [phone] * C-reactive protein (06/19/2025 12:29 PM EDT) C-Reactive Protein 0.47 <=0.50 mg/dL LAB CHEMISTRY METHOD 06/19/2025 7:28 PM EDT [facility] Blood Venous blood specimen / Unknown Venipuncture / Unknown 06/19/2025 12:29 PM EDT 06/19/2025 1:28 PM EDT Rashid CHACON LAB BLOOD ORDERABLES Final Resu lt Performing Organization Address [facility] Co de Phone Number [facility] [address] [place] [address], [place] [phone] * CARDIAC DEVICE CHECK- IN CLINIC- [facility] (06/06/2025 1:59 PM EDT) Date Time Interrogation Session [id number] CV DEVICE CHECK Implantable Pulse Generator Head Of Art MDT CV DEVICE CHECK Implantable Pulse Generator Type IPG CV DEVICE CHECK Implantable Pulse Generator Model [place] XT DR LAMA CV DEVICE CHECK Implantable Pulse Generator Serial Number [id number] CV DEVICE CHECK Implantable Pulse Generator Implant Date [id number] CV DEVICE CHECK Battery Status Middle of Service CV DEVICE CHECK Jag Statistic RA Percent Paced 99.20 CV DEVICE CHECK Jag Statistic RV Percent Paced 99.30 CV DEVICE CHECK Atrial Tachy Statistic AT/AF [place] Percent 0.10 CV DEVICE CHECK Lead Channel [...] thresholds reviewed and tested * Presenting Rhythm: AP-INFRASTRUCTURE ARCHITECT 70 bpm * No consistent R waves @ VVI 30 bpm today * Heart Rate Histograms reviewed * Pacing and Detection Parameters were evaluated Narrative Procedure Note Katia Proctor MD - 06/13/2025 IMPRESSION: Normal In-Office: No Events * Normal Device Function * Alerts or events: None * Battery: MOS, 8.1 years * Sensing, impedance and thresholds reviewed and tested * Presenting Rhythm: AP-INFRASTRUCTURE ARCHITECT 70 bpm * No consistent R waves @ VVI 30 bpm today * Heart Rate Histograms reviewed * Pacing and Detection Parameters were evaluated us Order Referral Cardiovascular CV IMPLANTABLE CAR DIAC DEVICE PROCEDURES Final Result * Hemoglobin A1c (03/22/2024) Hemoglobin A1C 6.4 <=6.5 % Blood Venous blood specimen / Unknown [facility] Provider LAB BLOOD ORDERABLES Rosa Isela l Result * Urine Albumin Creatinine Ratio (09/08/2023) Pathologist [facility] Urine Albumin Creatinine Ratio Abstracted [facility] Provider HEALTH MAINTENANCE Final Result * (ABNORMAL) Lipid panel (09/08/2023) [facility] LDL/HDL Ratio 4 0 - 4 Triglycerides 249(A) 0 - 150 mg/dL Cholesterol 130 0 - 200 mg/dL HDL 34(A) >=40 mg/dL LDL Cholesterol 47 0 - 100 mg/dL Blood Venous blood specimen / Unknown Result [facility] Provider LAB BLOOD ORDERABLES Rosa Isela l Result * Diabetes Foot Exam (09/07/2023) Pathologist [facility] Diabetes: Annual Foot Exam Abstracted Result [facility] Provider HEALTH MAINTENANCE Final Result from Last 3 Months or Most Recently Relevant to Health Maintenance Additional Health Concerns Active Problems Noted Date Diagnosed Date Impaired Tissue 07/27/2025 Education needed on impact of smoking on wound 1 Education needed related to ulceration/compromised skin integrity. 07/27/2025 Insurance MEDICARE [facility] Advance Directives Documents on File Type Date Recorded Patient Stem Sizer Expl anation DNR (Do Not Resuscitate) 06/25/2025 [...] currently active code status orders. Care Teams Kettleman Relationship Specialty Start Date End Date Diana Corona PA [address] [place] [address] PCP - General Physician Color Grinder 04/10/25
--- OUTSIDE RECORDS SUMMARY | 2025-08-27 17:00 | XMS_ITS | Encounter Summary ---
Author Organization [facility] [place] [address] Care Team Providers Care Model And Mold Maker Plaster Name Role Phone Diana Corona Primary Care Provider [phone] Encounter Details Date Type Department Care Team (Late st Contact Info) Description 04/23/2025 Lab Requisition [facility] - Main Lab [address] [facility] [place] [address] Rikki Rosen PA [address] [phone] Encounter for other general examination Social History [...] Info) Description 08/28/2025 2:45 PM EST Appointment [facility] CT Scan [address] [place] [address] 09/07/2025 2:30 PM EST Clinical Support [facility] [address] [place] [address] 09/13/2025 1:00 PM EST Office Visit V[facility] Surgery - [place] [address] [place] [address] Andie Chua PA [address] [place] [phone] 09/14/2025 2:30 PM EST Clinical Support [facility] [address] [place] [phone] 09/21/2025 2:30 PM EST Clinical Support [facility] [address] [place] [phone] 10/05/2025 2:30 PM EST Clinical Support [facility] [address] [place] [phone] 10/12/2025 2:30 PM EST Clinical Support [facility] [address] [place] [phone] 10/19/2025 2:30 PM EST Clinical Support [facility] [address] [place] [phone] 10/26/2025 2:30 PM EST Clinical Support [facility] [address] [place] [phone] 11/02/2025 2:30 PM EST Clinical Support [facility] [address] [place] [phone] 06/06/2026 1:30 PM EDT Ancillary Procedure [facility] [address] [facility] [address] [place] [address] documented as of this encounter Procedures Procedure Name Priority Date/Time Associated Diagnosis Comments COMPLETE BLOOD COUNT Routine 04/23/2025 6:20 AM EDT Encounter for other general examination BASIC METABOLIC PANEL Routine 04/23/2025 6:20 AM EDT Encounter for other general examination documented in this encounter Results * (ABNORMAL) Complete blood count (04/23/2025 6:20 AM EDT) [facility] Signature WBC 7.8 4.8 - 10.8 K/mcL LAB HEMETOLOGY METHOD 04/23/2025 12:36 PM EDT [facility] LAB RBC 2.30(L) [...] CHACON LAB BLOOD ORDERABLES Final R esult [facility] [address] [place] [address], [place] [phone] * (ABNORMAL) Basic metabolic panel (04/23/2025 6:20 AM EDT) Sodium 138 133 - 145 mmol/L LAB CHEMISTRY METHOD 04/23/2025 2:56 PM EDT [facility] Potassium 4.3 3.5 - 5.5 mmol/L LAB CHEMISTRY METHOD 04/23/2025 2:56 PM EDT [facility] Chloride 105 96 - 110 mmol/L LAB CHEMISTRY METHOD 04/23/2025 2:56 PM T [facility] CO2 25 21 - 32 mmol/L LAB CHEMISTRY METHOD 04/23/2025 2:56 PM EDT [facility] Anion Gap 8 3 - 11 LAB CHEMISTRY METHOD 04/23/2025 2:56 PM [facility] Glucose 95 70 - 100 mg/dL LAB CHEMISTRY METHOD 04/23/2025 2:56 PM [facility] BUN 36(H) 5 - 25 mg/dL LAB CHEMISTRY METHOD 04/23/2025 2:56 PM T [facility] Creatinine 1.68(H) 0.70 - 1.30 mg/dL LAB CHEMISTRY METHOD 04/23/2025 2:56 PM T [facility] eGFR 40(L) >=60 mL/min/1. 73m2 LAB CHEMISTRY METHOD 04/23/2025 2:56 PM EDT [facility] Comment:Calculation based on the Chronic Kidney Disease Epidemiology Collaboration (CKD-EPI) equation refit without adjustment for race. BUN/Creatinine Ratio 21.4 LAB CHEMISTRY METHOD 04/23/2025 2:56 PM EDT [facility] Calcium 8.7 8.5 - 10.5 mg/dL LAB CHEMISTRY METHOD 04/23/2025 2:56 PM EDT [facility] Blood Venous blood specimen / Unknown Venipuncture / Unknown 04/23/2025 6:20 AM EDT 04/23/2025 10:31 AM EDT Rikki CHACON LAB BLOOD ORDERABLES Final R esult [facility] [address] [place] [address], documented in this encounter Visit Diagnoses Diagnosis [...] documented as of this encounter Care Teams Model And Mold Maker Plaster Relationship Specialty Start Date End Date Diana Corona PA [address] [place] [address] PCP - General Physician Assistant Manager Pt 04/10/25 documented as of this encounter
--- OUTSIDE RECORDS SUMMARY | 2025-08-27 17:00 | XMS_ITS | Encounter Summary ---
Author Organization [facility] [place] [address] Care Team Providers Care Creeler Name Role Phone Diana Corona Primary Care Provider [phone] Encounter Details Date Type Department Care Team (Late st Contact Info) Description 04/24/2025 Lab Requisition [facility] - Main Lab [address] [place] [address] Reyna Ford PA [address] [place] [address] [phone] Unspecified atrial fibrillation (CMS/HCC V24, CMS/HCC V28) [...] Description 08/28/2025 2:45 PM EST Appointment [facility] CT Scan [address] [place] [address] 09/07/2025 2:30 PM EST Clinical Support [facility] [address] [place] [address] 09/13/2025 1:00 PM EST Office Visit Vascular Surgery - [place] [address] [place] [address] Andie Chua PA [address] [place] [phone] 09/14/2025 2:30 PM EST Clinical Support [facility] [address] [place] [phone] 09/21/2025 2:30 PM EST Clinical Support [facility] [address] [place] [phone] 10/05/2025 2:30 PM EST Clinical Support [facility] [address] [place] [phone] 10/12/2025 2:30 PM EST Clinical Support [facility] [address] [place] [phone] 10/19/2025 2:30 PM EST Clinical Support [facility] [address] [place] [phone] 10/26/2025 2:30 PM EST Clinical Support [facility] [address] [place] [phone] 11/02/2025 2:30 PM EST Clinical Support [facility] [address] [place] [phone] 06/06/2026 1:30 PM EDT Ancillary Procedure [facility] [address] [facility] [address] [place] [address] documented as of this encounter Procedures Procedure Name Priority Date/Time Associated Diagnosis Comments VITAMIN B12 Routine 04/24/2025 6:02 AM EDT Unspecified atrial fibrillation (CMS/HCC V24, CMS/HCC V28) documented in this encounter Results * (ABNORMAL) Vitamin B12 (04/24/2025 6:02 AM EDT) [facility] Vitamin B-12 1,498(H) 250 - 900 pcg/mL LAB CHEMISTRY METHOD 04/24/2025 12:00 PM EDT [facility] Blood Venous blood specimen / Unknown Venipuncture / Unknown 04/24/2025 6:02 AM EDT 04/24/2025 10:02 AM EDT Reyna CHACON LAB BLOOD ORDERABLES Final Re sult [facility] [address] [place] [address], documented in this encounter Visit Diagnoses Diagnosis Unspecified atrial fibrillation (CMS/HCC V24, CMS/HCC V28) Encounter for adjustment or management of cardiac device documented in this encounter Additional Health Concerns Infection Onset Date Last Indicated Resolved Time 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 05/21/2025 05/21/2025 05/24/2025 7:32 AM E DT Respiratory Rule-Out 05/23/2025 05/23/2025 025 11:46 PM EDT COVID-19 Rule-Out 05/23/2025 05/23/2025 05/23/2025 11:46 PM EDT documented as of this encounter Care Teams Creeler Relationship Specialty Start Date End Date Diana Corona PA [address] [place] [address] PCP - General Physician Coal Picker 04/10/25 documented as of this encounter
--- OUTSIDE RECORDS SUMMARY | 2025-08-27 17:00 | XMS_ITS | Clinical Summary ---
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 Assessment & Plan (05/24/2019 2:01 PM EDT): [...] routine labs prior to his leaving to [place]. Peripheral vascular disease 12/30/2017 Overview (07/28/2018): 09/2010 [...] Date/Time Associated Diagnosis Comments BASIC METABOLIC PANEL (BMP) Routine 05/01/2020 3:53 PM EDT Essential hypertension from Last 3 Months or Most Recently Relevant to Health Maintenance Results * (ABNORMAL) Basic metabolic panel (05/01/2020 3:53 PM EDT) SODIUM 145 133 - 146 mmol/L [facility] CHLORIDE 106 96 - 108 mmol/L [facility] POTASSIUM 4.9 3.3 - 5.1 mmol/L [facility] CO2 26 21 - 35 mmol/L [facility] BUN 31(H) 6 - 19 mg/dL [facility] CREATININE 1.60(H) 0.5 - 1.5 mg/dL [facility] GLUCOSE 134(H) 70 - 99 mg/dL [facility] CALCIUM 9.7 8.4 - 10.3 mg/dL [facility] EGFR 40(L) >59 mL/min/1.7 3m2 [facility] Comment:Estimated glomerular filtration rate calculated using the CKD-EPI equation. ANION GAP 18 10 - 20 mmol/L [facility] Blood 05/01/2020 3:53 PM EDT 05/01/2020 3:55 PM EDT us Jean Lucero MD LAB BLOOD BKR ORDERABLES Final Result [facility] [address] [place] [address] from Last 3 Months or Most Recently Relevant to Health Maintenance Insurance MEDICARE PART A & B [facility] MEDICARE SUPPLEMENT MEDICARE PART A & B [facility] [place] [id number] MEDICARE PART A & B [facility] MEDICARE SUPPLEMENT MEDICARE PART A & B MEDICARE SUPPLEMENT MEDICARE PART A & B [facility] MEDICARE SUPPLEMENT MEDICARE PART A & B [employer] MEDICARE SUPPLEMENT MEDICARE PART A & B [employer] MEDICARE SUPPLEMENT MEDICARE PART A & B [facility] MEDICARE SUPPLEMENT MEDICARE PART A & B [employer] [facility] MEDICARE SUPPLEMENT Care Teams Seed Service Advisor Relationship Specialty Start Date End Date Jaya Brock MD PCP - General 09/07/19 Additional Source Comments The information contained in this document represents components of the legal health record. It is not the complete legal health record.[facility]
--- OUTSIDE RECORDS SUMMARY | 2025-08-27 17:00 | XMS_ITS | Encounter Summary ---
Author Organization [facility] Address [address] [place] [address] Phone Care Team Providers Care Insurance Claims Representative Name Role Phone Jaya Brock MD Primary Care Provider Encounter Details Date Type Department Care Team (Latest Contact Info) Description 12/11/2020 Ancillary Orders [facility] [address] [facility] 3rd Floor, [address] [place] [address] Kash Boles MD [address] [place] [phone] [email or web address] Sick sinus syndrome Social History Tobacco Use [...] dysfunction documented in this encounter Care Teams Insurance Claims Representative Relationship Specialty Start Date End Date Jaya Brock MD PCP - General 09/07/19 documented as of this encounter Additional Source Comments The information contained in this document represents components of the legal health record. It is not the complete legal health record.[facility]
--- OUTSIDE RECORDS SUMMARY | 2025-08-27 17:00 | XMS_ITS | Encounter Summary ---
Author Organization [place] [address] Care Team Providers Care Supervisor Machining Name Role Phone Diana Corona Primary Care Provider [phone] Encounter Details Date Type Department Care Team (Late st Contact Info) Description 04/15/2025 Lab Requisition [facility] - Main Lab [address] [facility] [place] [address] Frances Meléndez PA [address] [place] [address] Encounter for other general examination [...] Info) Description 08/28/2025 2:45 PM EST Appointment [facility] CT Scan [address] [place] [address] 09/07/2025 2:30 PM EST Clinical Support [facility] [address] [place] [address] 09/13/2025 1:00 PM EST Office Visit Vascular Surgery [facility] [address] [place] [address] Andie Chua PA [address] [place] [phone] 09/14/2025 2:30 PM EST Clinical Support [facility] [address] [place] [phone] 09/21/2025 2:30 PM EST Clinical Support [facility] [address] [place] [phone] 10/05/2025 2:30 PM EST Clinical Support [facility] [address] [place] [phone] 10/12/2025 2:30 PM EST Clinical Support [facility] [address] [place] [phone] 10/19/2025 2:30 PM EST Clinical Support [facility] [address] [place] [phone] 10/26/2025 2:30 PM EST Clinical Support [facility] [address] [place] [phone] 11/02/2025 2:30 PM EST Clinical Support [facility] [address] [place] [phone] 06/06/2026 1:30 PM EDT Ancillary Procedure [facility] - [address] [place] [address] documented as of this encounter Procedures Procedure [...] CBC auto differential (04/15/2025 6:42 AM EDT) [facility] Signature WBC 8.2 4.8 - 10.8 K/mcL LAB [facility]EMETOLOGY [facility] RBC 2.20(L) 4.50 - 5.50 M/mcL LAB HEMETOLOGY METHOD 04/15/2025 12:[facility] Hemoglobin 7.3(L) 13.5 - 17.5 g/dL LAB HEMETOLOGY METHOD 04/15/2025 12:46 PM [facility] Hematocrit 23.7(L) 42.0 - 54.0 % LAB HEMETOLOGY METHOD 04/15/2025 12:46 PM [facility] MCV 106.3(H) 79.0 - 98.0 FL LAB HEMETOLOGY METHOD 04/15/2025 12:[facility] MCH 32.7(H) 27.0 - 32.0 pcg LAB HEMETOLOGY METHOD 04/15/2025 12:46 PM [facility] MCHC 30.8(L) 32.0 - 37.0 g/dL LAB HEMETOLOGY METHOD 04/15/2025 12:46 PM [facility] RDW 15.9(H) 11.0 - 15.0 % LAB HEMETOLOGY METHOD 04/15/2025 12:46 PM [facility] Platelets 180 130 - 400 K/mcL LAB HEMETOLOGY METHOD 04/15/2025 12:46 PM [facility] MPV 10.6 7.0 - 11.0 FL LAB HEMETOLOGY METHOD 04/15/2025 12:46 PM [facility] NRBC 0.0 <1.0 % LAB HEMETOLOGY METHOD 04/15/2025 12[facility] NRBC Absolute 0.00 <0.10 K/mcL LAB HEMETOLOGY METHOD 04/15/2025 12:46 PM [facility] Neutrophils Relative 65.3 % LAB HEMETOLOGY METHOD 04/15/2025 12:46 PM [facility] Lymphocytes Relative 17.8 % LAB HEMETOLOGY METHOD 04/15/2025 12:46 PM [facility] Monocytes Relative 11.4 % LAB HEMETOLOGY METHOD 04/15/2025 12:46 PM [facility] Eosinophils Relative 4.5 % LAB HEMETOLOGY METHOD 04/15/2025 12:46 PM [facility] Basophils Relative 0.5 % LAB HEMETOLOGY METHOD 04/15/2025 12:46 PM [facility] Immature Granulocytes Relative 0.5 % LAB HEMETOLOGY METHOD 04/15/2025 12:46 PM [facility] Neutrophils Absolute 5.35 1.50 - 7.00 K/mcL LAB HEMETOLOGY METHOD 04/15/2025 12:46 PM [facility] Lymphocytes Absolute 1.46 1.00 - 5.00 K/mcL LAB HEMETOLOGY METHOD 04/15/2025 12:46 PM [facility] Monocytes Absolute 0.93 0.20 - 1.00 K/mcL LAB HEMETOLOGY METHOD 04/15/2025 12:46 PM [facility] Eosinophils Absolute 0.37 0.00 - 0.50 K/mcL LAB HEMETOLOGY METHOD 04/15/2025 12:46 PM [facility] Basophils Absolute 0.04 0.00 - 0.20 K/mcL LAB HEMETOLOGY METHOD 04/15/2025 12:46 PM [facility] Immature Granulocytes Absolute 0.04(H) 0.00 - 0.03 K/mcL LAB HEMETOLOGY METHOD 04/15/2025 12:46 PM EDT [facility] Blood Venous blood specimen / Unknown Venipuncture / Unknown 04/15/2025 6:42 AM EDT 04/15/2025 12:05 PM EDT Frances CHACON LAB BLOOD ORDERABLES Final Resul t [facility] [address] [place] [address], [place] [phone] * Magnesium (04/15/2025 6:42 AM EDT) Magnesium 2.2 1.9 - 2.6 mg/dL LAB CHEMISTRY METHOD 04/15/2025 1:13 PM EDT [facility] Blood Venous blood specimen / Unknown Venipuncture / Unknown 04/15/2025 6:42 AM EDT 04/15/2025 12:05 PM EDT Frances CHACON LAB BLOOD ORDERABLES Final Resul t Performing Organization Address [facility]/ZIP Co de Phone Number [facility] [address] [place] [address], [place] [phone] * (ABNORMAL) Comprehensive metabolic panel (04/15/2025 6:42 AM EDT) Sodium 138 133 - 145 mmol/L LAB CHEMISTRY METHOD 04/15/2025 1:24 PM EDT [facility] Potassium 4.2 3.5 - 5.5 mmol/L LAB CHEMISTRY METHOD 04/15/2025 1:24 PM EDT [facility] Chloride 107 96 - 110 mmol/L LAB CHEMISTRY METHOD 04/15/2025 1:24 PM EDT [facility] CO2 26 21 - 32 mmol/L LAB CHEMISTRY METHOD 04/15/2025 1:24 PM EDT [facility] Anion Gap 5 3 - 11 LAB CHEMISTRY METHOD 04/15/2025 1:24 PM [facility] Glucose 115(H) 70 - 100 mg/dL LAB CHEMISTRY METHOD 04/15/2025 1:24 PM [facility] BUN 28(H) 5 - 25 mg/dL LAB CHEMISTRY METHOD 04/15/2025 1:24 PM [facility] Creatinine 1.49(H) 0.70 - 1.30 mg/dL LAB CHEMISTRY METHOD 04/15/2025 1:24 PM [facility] eGFR 46(L) >=60 mL/min/1. 73m2 LAB CHEMISTRY METHOD 04/15/2025 1:24 PM [facility] Comment:Calculation based on the Chronic Kidney Disease Epidemiology Collaboration (CKD-EPI) equation refit without adjustment for race. BUN/Creatinine Ratio 18.8 LAB CHEMISTRY METHOD 04/15/2025 1:24 PM [facility] Calcium 8.6 8.5 - 10.5 mg/dL LAB CHEMISTRY METHOD 04/15/2025 1:24 PM [facility] AST (SGOT) 60(H) 10 - 42 unit/L LAB CHEMISTRY METHOD 04/15/2025 1:24 PM [facility] Comment:Results verified by repeat testing ALT (SGPT) 23 10 - 60 unit/L LAB CHEMISTRY METHOD 04/15/2025 1:24 PM [facility] Alkaline Phosphatase 41(L) 42 - 121 unit/L LAB CHEMISTRY METHOD 04/15/2025 1:24 PM [facility] Total Protein 5.9(L) 6.0 - 8.0 g/dL LAB CHEMISTRY METHOD 04/15/2025 1:24 PM [facility] Albumin 2.8(L) 3.2 - 5.0 g/dL LAB CHEMISTRY METHOD 04/15/2025 1:24 PM [facility] Total Bilirubin 0.6 0.0 - 1.4 mg/dL LAB CHEMISTRY METHOD 04/15/2025 1:24 PM EDT [facility] Blood Venous blood specimen / Unknown Venipuncture / Unknown 04/15/2025 6:42 AM EDT 04/15/2025 12:05 PM EDT us Frances CHACON LAB BLOOD ORDERABLES Final Resul t [facility] [address] [place] [address], documented in this encounter Visit Diagnoses Diagnosis [...] as of this encounter Care Teams Supervisor Machining Relationship Specialty Start Date End Date Diana Corona PA [address] [place] [phone] PCP - General Physician Blender Laborer 04/10/25 documented as of this encounter
--- OUTSIDE RECORDS SUMMARY | 2025-08-27 17:01 | XMS_ITS | Encounter Summary ---
Author Organization [facility] [place] [address] Care Team Providers Care Percolator Operator Name Role Phone Diana Corona Primary Care Provider [phone] Encounter Details Date Type Department Care Team (Late st Contact Info) Description 04/16/2025 Lab Requisition [facility] - Main Lab [address] [facility] [place] [address] Rikki Rosen PA [address] [phone] Encounter for other general examination Social History [...] Info) Description 08/28/2025 2:45 PM EST Appointment [facility] CT Scan [address] [place] [address] 09/07/2025 2:30 PM EST Clinical Support [facility] [address] [place] [address] 09/13/2025 1:00 PM EST Office Visit V[facility] [place] [address] [place] [address] Andie Chua PA [address] [place] [phone] 09/14/2025 2:30 PM EST Clinical Support [facility] [address] [place] [phone] 09/21/2025 2:30 PM EST Clinical Support [facility] [address] [place] [phone] 10/05/2025 2:30 PM EST Clinical Support [facility] [address] [place] [phone] 10/12/2025 2:30 PM EST Clinical Support [facility] [address] [place] [phone] 10/19/2025 2:30 PM EST Clinical Support [facility] [address] [place] [phone] 10/26/2025 2:30 PM EST Clinical Support [facility] [address] [place] [phone] 11/02/2025 2:30 PM EST Clinical Support [facility] [address] [place] [phone] 06/06/2026 1:30 PM EDT Ancillary Procedure [facility] - [address] [place] [address] documented as of this encounter Procedures Procedure Name Priority Date/Time Associated Diagnosis Comments CBC WITH AUTO DIFFERENTIAL Routine 04/16/2025 6:10 AM EDT Encounter for other general examination CBC AND DIFFERENTIAL Routine 04/16/2025 6:10 AM EDT Encounter for other general examination documented in this encounter Results * (ABNORMAL) CBC auto differential (04/16/2025 6:10 AM EDT) [facility] WBC 7.1 4.8 - 10.8 K/[facility] LAB HEMETOLOGY METHOD 04/16/2025 12:45 PM EDT [facility] RBC 2.20(L) 4.50 - 5.50 M/mcL LAB HEMETOLOGY METHOD 04/16/2025 12:45 PM EDT [facility] LAB Hemoglobin 7.2(L) 13.5 - 17.5 g/dL LAB HEMETOLOGY METHOD 04/16/2025 12:[facility] Hematocrit 23.2(L) 42.0 - 54.0 % LAB HEMETOLOGY METHOD 04/16/2025 12:45 PM EDT [facility] LAB MCV 105.9(H) 79.0 - 98.0 FL LAB HEMETOLOGY METHOD 04/16/2025 12:45 [facility] MCH 32.9(H) 27.0 - 32.0 pcg LAB HEMETOLOGY METHOD 04/16/2025 12:45 PM [facility] MCHC 31.0(L) 32.0 - 37.0 g/dL LAB HEMETOLOGY METHOD 04/16/2025 12:45 PM [facility] LAB RDW 15.7(H) 11.0 - 15.0 % LAB HEMETOLOGY METHOD 04/16/2025 12:45 PM EDT [facility] LAB Platelets 198 130 - 400 K/mcL LAB HEMETOLOGY METHOD 04/16/2025 12:45 PM EDT [facility] LAB MPV 10.7 7.0 - 11.0 FL LAB HEMETOLOGY METHOD 04/16/2025 12:45 PM [facility] NRBC 0.0 <1.0 % LAB HEMETOLOGY METHOD 04/16/2025 12:45 PM [facility] NRBC Absolute 0.00 <0.10 K/mcL LAB HEMETOLOGY METHOD 04/16/2025 12:45 PM [facility] Neutrophils Relative 55.2 % LAB HEMETOLOGY METHOD 04/16/2025 12:45 PM EDT [facility] LAB Lymphocytes Relative 23.4 % LAB [...] 04/16/2025 12:45 PM [facility] LAB Lymphocytes Absolute 1.67 1.00 - 5.00 K/mcL LAB HEMETOLOGY METHOD 04/16/2025 12:45 PM [facility] LAB Monocytes Absolute 0.97 0.20 - 1.00 K/mcL LAB HEMETOLOGY METHOD 04/16/2025 12:45 PM [facility] LAB Eosinophils Absolute 0.49 0.00 - 0.50 K/mcL LAB HEMETOLOGY METHOD 04/16/2025 12:45 PM [facility] LAB Basophils Absolute 0.04 0.00 - 0.20 K/mcL LAB HEMETOLOGY METHOD 04/16/2025 12:45 PM [facility] LAB Immature Granulocytes Absolute 0.02 0.00 - 0.03 K/mcL LAB HEMETOLOGY METHOD 04/16/2025 12:45 PM [facility] LAB Blood Venous blood specimen / Unknown Venipuncture / Unknown 04/16/2025 6:10 AM EDT 04/16/2025 10:48 AM EDT us Rikki CHACON LAB BLOOD ORDERABLES Final R esult BA [facility] ([facility]) [facility] LAB [address] [place] [address], documented in this encounter Visit Diagnoses Diagnosis [...] documented as of this encounter Care Teams Percolator Operator Relationship Specialty Start Date End Date Diana Corona PA [address] [place] [address] PCP - General Physician Aerospace Mechanic 04/10/25 documented as of this encounter
--- OUTSIDE RECORDS SUMMARY | 2025-08-27 17:01 | XMS_ITS | Encounter Summary ---
Author Organization [facility] [place] [address] Care Team Providers Care Rolled Oats Mill Operator Name Role Phone Diana Corona Primary Care Provider [phone] Encounter Details Date Type Department Care Team (Late st Contact Info) Description 04/22/2025 Lab Requisition [facility] - Main Lab [address] [facility] [place] [address] Frances Meléndez PA [address] [place] [address] Encounter for other general examination [...] Info) Description 08/28/2025 2:45 PM EST Appointment [facility] CT Scan [address] [place] [address] 09/07/2025 2:30 PM EST Clinical Support [facility] [address] [place] [address] 09/13/2025 1:00 PM EST Office Visit Vascular [facility] [address] [place] [address] Andie Chua PA [address] [place] [phone] 09/14/2025 2:30 PM EST Clinical Support [facility] [address] [place] [phone] 09/21/2025 2:30 PM EST Clinical Support [facility] [address] [place] [phone] 10/05/2025 2:30 PM EST Clinical Support [facility] [address] [place] [phone] 10/12/2025 2:30 PM EST Clinical Support [facility] [address] [place] [phone] 10/19/2025 2:30 PM EST Clinical Support [facility] [address] [place] [phone] 10/26/2025 2:30 PM EST Clinical Support [facility] [address] [place] [phone] 11/02/2025 2:30 PM EST Clinical [facility] Care [facility] [address] [place] [phone] 06/06/2026 1:30 PM EDT Ancillary Procedure [facility] - [address] [facility] [address] [place] [address] documented as of this encounter Procedures Procedure Name Priority Date/Time Associated Diagnosis Comments COMPLETE BLOOD COUNT Routine 04/22/2025 5:53 AM EDT Encounter for other general examination documented in this encounter Results * (ABNORMAL) Complete blood count (04/22/2025 5:53 AM EDT) [facility] WBC 7.2 4.8 - 10.8 K/[facility] LAB HEMETOLOGY METHOD 04/22/2025 9:01 AM EDT [facility] LAB RBC 2.30(L) 4.50 - 5.50 M/[facility] LAB HEMETOLOGY METHOD 04/22/2025 9:01 AM [facility] LAB Hemoglobin 7.3(L) 13.5 - 17.5 g/dL LAB HEMETOLOGY METHOD 04/22/2025 9:01 AM [facility] LAB Hematocrit 24.2(L) 42.0 - 54.0 % LAB HEMETOLOGY METHOD 04/22/2025 9:01 AM [facility] LAB MCV 106.6(H) 79.0 - 98.0 FL LAB HEMETOLOGY METHOD 04/22/2025 9:01 AM [facility] LAB MCH 32.2(H) 27.0 - 32.0 pcg LAB HEMETOLOGY METHOD 04/22/2025 9:01 AM [facility] LAB MCHC 30.2(L) 32.0 - 37.0 g/dL LAB HEMETOLOGY METHOD 04/22/2025 9:01 AM [facility] LAB RDW 16.8(H) 11.0 - 15.0 % LAB HEMETOLOGY METHOD 04/22/2025 9:01 AM [facility] LAB Platelets 339 130 - 400 K/mcL LAB HEMETOLOGY METHOD 04/22/2025 9:01 AM [facility] LAB MPV 10.0 7.0 - 11.0 FL LAB HEMETOLOGY METHOD 04/22/2025 9:01 AM [facility] LAB NRBC 0.0 <1.0 % LAB HEMETOLOGY METHOD 04/22/2025 9:01 AM [facility] LAB NRBC Absolute 0.00 <0.10 K/mcL LAB HEMETOLOGY METHOD 04/22/2025 9:01 AM [facility] LAB Blood Venous blood specimen / Unknown Venipuncture / Unknown 04/22/2025 5:53 AM EDT 04/22/2025 8:40 AM EDT us Frances CHACON LAB BLOOD ORDERABLES Final Resul t BA [facility] ([facility] HOSPITAL LAB [address] [place] [address], documented in this encounter Visit Diagnoses Diagnosis [...] documented as of this encounter Care Teams Rolled Oats Mill Operator Relationship Specialty Start Date End Date Diana Corona PA [address] [place] [address] PCP - General Physician It Sales Executive 04/10/25 documented as of this encounter
--- OUTSIDE RECORDS SUMMARY | 2025-08-27 17:01 | XMS_ITS | Encounter Summary ---
Author Organization [facility] Address [address] [facility] [address] [place] [address] Phone Care Team Providers Care Feller Hand Name Role Phone Irving Swift DO Primary Care Provider [phone] Janee Berry MD, MPH Primary Care Provid er Unknown, Unknown Primary Care Provider Jaya Sanchez MD Primary Care Provider Encounter Details Date Type Department Care Team (Latest Contact Info) Description 07/24/2017 Ancillary Orders [facility] [address] Floor, [address] [place] [address] Ulisses Lyn MD [address] [place] [address] [email or web address] Diagnosis unknown Social History Tobacco [...] unknown documented in this encounter Care Teams Feller Hand Relationship Specialty Start Date End Date Irving Swift DO [address] [place] [address] PCP - General 07/22/17 01/18/19 Janee Berry MD, MPH [address] [address] [email or web address] PCP - General Family Medicine 01/19/19 05/23/19 Unknown, Price, [address] [place] [address] PCP - General 05/24/19 09/06/19 Jaya Brock MD [address] [place] [address] PCP - General 09/07/19 documented as of this encounter Additional Source Comments The information contained in this document represents components of the legal health record. It is not the complete legal health record.[facility]
--- OUTSIDE RECORDS SUMMARY | 2025-08-27 17:01 | XMS_ITS | Encounter Summary ---
Author Organization [facility] Address [address] [place] [address] Phone Care Team Providers Care Rigging Up Worker Name Role Phone Irving Swift DO Primary Care Provider [phone] Janee Berry MD, MPH Primary Care Provid er Unknown, Unknown Primary Care Provider Jaya Sanchez MD Primary Care Provider Encounter Details Date Type Department Care Team (Latest Contact Info) Description 10/13/2017 Ancillary Orders [facility] [address] [facility] 3rd Floor, [address] [place] [address] Ulisses Lyn MD 22 [place] [address] [email or web address] Complete heart block Social History [...] for device SSS Examination: Device type: pacemaker Preschool Substitute Teacher: MDT Thresholds, impedances, and sensing stable. Mode [...] complete documented in this encounter Care Teams Rigging Up Worker Relationship Specialty Start Date End Date Irving Swift DO [address] [place] [address] PCP - General 07/22/17 01/18/19 Janee Berry MD, MPH [address] [place] [address] [email or web address] PCP - General Family Medicine 01/19/19 05/23/19 Unknown, Unknown, [address] [place] [address] PCP - General 05/24/19 09/06/19 Jaya Brock MD [address] [place] [address] PCP - General 09/07/19 documented as of this encounter Additional Source Comments The information contained in this document represents components of the legal health record. It is not the complete legal health record.[facility]
--- OUTSIDE RECORDS SUMMARY | 2025-08-27 17:01 | XMS_ITS | Encounter Summary ---
Author Organization [facility] Address [address] [facility] [address] [place] [address] Phone Care Team Providers Care Catalogue Librarian Name Role Phone Irving Swift DO Primary Care Provider [phone] Janee Berry MD, MPH Primary Care Provid er Unknown, Unknown Primary Care Provider Jaya Sanchez MD Primary Care Provider Encounter Details Date Type Department Care Team (Late st Contact Info) Description 10/13/2017 Ancillary [facility] [address] [place] [address] Ulisses Lyn MD 22 [place] [address] [email or web address] Social History Tobacco Use Types Packs/Day Years [...] on filedocumented in this encounter Care Teams Catalogue Librarian Relationship Specialty Start Date End Date Irving Swift DO [address] [place] [address] PCP - General 07/22/17 01/18/19 Janee Berry MD, MPH [address] [facility] [address] [place] [address] [email or web address] PCP - General Family Medicine 01/19/19 05/23/19 Unknown, Price, [address] [place] [address] PCP - General 05/24/19 09/06/19 Jaya Brock MD [address] [place] [address] PCP - General 09/07/19 documented as of this encounter Additional Source Comments The information contained in this document represents components of the legal health record. It is not the complete legal health record.[facility]
--- OUTSIDE RECORDS SUMMARY | 2025-08-27 17:01 | XMS_ITS | Encounter Summary ---
Author Organization [facility] Address [address] [facility] [address] [place] [address] Phone Care Team Providers Care Straightener Hand Name Role Phone Irving Swift DO Primary Care Provider [phone] Janee Berry MD, MPH Primary Care Provid er Unknown, Unknown Primary Care Provider Jaya Sanchez MD Primary Care Provider Encounter Details Date Type Department Care Team (Late st Contact Info) Description 12/28/2018 Ancillary Orders Non-Invasive Cardiology [address] [place] [address] Ulisses Lyn MD [address] [place] [address] [email or web address] Sick sinus syndrome Social History Tobacco Use [...] dysfunction documented in this encounter Care Teams Straightener Hand Relationship Specialty Start Date End Date Irving Swift DO 5 [place] [address] PCP - General 07/22/17 01/18/19 Janee Berry MD, MPH [address] [place] [address] [email or web address] PCP - General Family Medicine 01/19/19 05/23/19 Unknown, Unknown, [address] [place] [address] PCP - General 05/24/19 09/06/19 Jaya Brock MD [address] [place] [address] PCP - General 09/07/19 documented as of this encounter Additional Source Comments The information contained in this document represents components of the legal health record. It is not the complete legal health record.[facility]
--- OUTSIDE RECORDS SUMMARY | 2025-08-27 17:01 | XMS_ITS | Encounter Summary ---
Author Organization [facility] [place] [address] Care Team Providers Care Acidizer Name Role Phone Diana Corona Primary Care Provider [phone] Encounter Details Date Type Department Care Team (Late st Contact Info) Description 04/19/2025 Lab Requisition [facility] - Main Lab [address] [facility] [place] [address] Rikki Rosen PA [address] [phone] Encounter for other general examination Social History [...] [facility] CT Scan [address] [place] [address] 09/07/2025 2:30 PM EST Clinical Support [facility] [address] [place] [address] 09/13/2025 1:00 PM EST Office Visit Vascular Surgery - [place] [address] [place] [address] Andie Chua PA [address] [place] [phone] 09/14/2025 2:30 PM EST Clinical Support [facility] [address] [place] [phone] 09/21/2025 2:30 PM EST Clinical Support [facility] [address] [place] [phone] 10/05/2025 2:30 PM EST Clinical Support [facility] [address] [place] [phone] 10/12/2025 2:30 PM EST Clinical Support [facility] [address] [place] [phone] 10/19/2025 2:30 PM EST Clinical Support [facility] [address] [place] [phone] 10/26/2025 2:30 PM EST Clinical Support [facility] [address] [place] [phone] 11/02/2025 2:30 PM EST Clinical Support [facility] [address] [place] [phone] 06/06/2026 1:30 PM EDT Ancillary Procedure [facility] - [address] [facility] [address] [place] [address] documented as of this encounter Procedures Procedure Name Priority Date/Time Associated Diagnosis Comments COMPLETE BLOOD COUNT Routine 04/19/2025 6:03 AM EDT Encounter for other general examination BASIC METABOLIC PANEL Routine 04/19/2025 6:03 AM EDT Encounter for other general examination documented in this encounter Results * (ABNORMAL) Complete blood count (04/19/2025 6:03 AM EDT) [facility] Signature WBC 7.5 4.8 - 10.8 K/mcL LAB HEMETOLOGY METHOD 04/19/2025 10:14 AM EDT [facility] LAB RBC 2.30(L) 4.50 - 5.50 M/mcL LAB HEMETOLOGY METHOD 04/19/2025 10:14 AM [facility] LAB Hemoglobin 7.3(L) 13.5 - 17.5 g/dL LAB HEMETOLOGY METHOD 04/19/2025 10:14 AM [facility] LAB Hematocrit 23.7(L) 42.0 - 54.0 % LAB HEMETOLOGY METHOD 04/19/2025 10:14 AM [facility] LAB MCV 104.9(H) 79.0 - 98.0 FL LAB HEMETOLOGY METHOD 04/19/2025 10:14 AM [facility] LAB MCH 32.3(H) 27.0 - 32.0 pcg LAB HEMETOLOGY METHOD 04/19/2025 10:14 AM [facility] LAB MCHC 30.8(L) 32.0 - 37.0 g/dL LAB HEMETOLOGY METHOD 04/19/2025 10:14 AM [facility] LAB RDW 15.9(H) 11.0 - 15.0 % LAB HEMETOLOGY METHOD 04/19/2025 10:14 AM [facility] LAB Platelets 257 130 - 400 K/mcL LAB HEMETOLOGY METHOD 04/19/2025 10:14 AM [facility] LAB MPV 10.4 7.0 - 11.0 FL LAB HEMETOLOGY METHOD 04/19/2025 10:14 AM [facility] LAB NRBC 0.0 <1.0 % LAB HEMETOLOGY METHOD 04/19/2025 10:14 AM [facility] LAB NRBC Absolute 0.00 <0.10 K/mcL LAB HEMETOLOGY METHOD 04/19/2025 10:14 AM [facility] LAB Blood Venous blood specimen / Unknown Venipuncture / Unknown 04/19/2025 6:03 AM EDT 04/19/2025 9:42 AM EDT Rikki CHACON LAB BLOOD ORDERABLES Final R esult [facility] LAB [address] [place] [address], [place] [phone] * (ABNORMAL) Basic metabolic panel (04/19/2025 6:03 AM EDT) Sodium 138 133 - 145 mmol/L LAB CHEMISTRY METHOD 04/19/2025 10:54 AM T [facility] LAB Potassium 4.4 3.5 - 5.5 mmol/L LAB CHEMISTRY METHOD 04/19/2025 10:54 AM [facility] LAB Chloride 105 96 - 110 mmol/L LAB CHEMISTRY METHOD 04/19/2025 10:54 AM [facility] LAB CO2 28 21 - 32 mmol/L LAB CHEMISTRY METHOD 04/19/2025 10:54 AM [facility] LAB Anion Gap 5 3 - 11 LAB CHEMISTRY METHOD 04/19/2025 10:54 AM [facility] LAB Glucose 99 70 - 100 mg/dL LAB CHEMISTRY METHOD 04/19/2025 10:54 AM [facility] LAB BUN 33(H) 5 - 25 mg/dL LAB CHEMISTRY METHOD 04/19/2025 10:54 AM [facility] LAB Creatinine 1.54(H) 0.70 - 1.30 mg/dL LAB CHEMISTRY METHOD 04/19/2025 10:54 AM [facility] LAB eGFR 44(L) >=60 mL/min/1. 73m2 LAB CHEMISTRY METHOD 04/19/2025 10:54 AM [facility] LAB Comment:Calculation based on the Chronic Kidney Disease Epidemiology Collaboration (CKD-EPI) equation refit without adjustment for race. BUN/Creatinine Ratio 21.4 LAB CHEMISTRY METHOD 04/19/2025 10:54 AM EDT [facility] LAB Calcium 8.8 8.5 - 10.5 mg/dL LAB CHEMISTRY METHOD 04/19/2025 10:54 AM EDT [facility] LAB Blood Venous blood specimen / Unknown Venipuncture / Unknown 04/19/2025 6:03 AM EDT 04/19/2025 9:42 AM EDT Rikki CHACON LAB BLOOD ORDERABLES Final R esult [facility] LAB [address] [place] [address], documented in this encounter Visit Diagnoses Diagnosis [...] documented as of this encounter Care Teams Acidizer Relationship Specialty Start Date End Date Diana Corona PA [address] [place] [address] PCP - General Physician Manager Of Human Resources 04/10/25 documented as of this encounter
--- OUTSIDE RECORDS SUMMARY | 2025-08-27 17:01 | XMS_ITS | Encounter Summary ---
Author Organization [facility] Address [address] [facility] [address] [place] [address] Phone Care Team Providers Care Concrete Pump Operator Name Role Phone Irving Swift DO Primary Care Provider [phone] Janee Berry MD, MPH Primary Care Provid er Unknown, Unknown Primary Care Provider Jaya Sanchez MD Primary Care Provider Encounter Details Date Type Department Care Team (Late st Contact Info) Description 07/24/2017 Ancillary [facility] [address] [place] [address] Ulisses Lyn MD 22 [place] [address] [email or web address] Social History Tobacco Use Types Packs/Day Years [...] on filedocumented in this encounter Care Teams Concrete Pump Operator Relationship Specialty Start Date End Date Irving Swift DO [address] [place] [address] PCP - General 07/22/17 01/18/19 Janee Berry MD, MPH [address] [facility] [address] [place] [address] [email or web address] PCP - General Family Medicine 01/19/19 05/23/19 Unknown, Price, [address] [place] [address] PCP - General 05/24/19 09/06/19 Jaya Brock MD [address] [place] [address] PCP - General 09/07/19 documented as of this encounter Additional Source Comments The information contained in this document represents components of the legal health record. It is not the complete legal health record.[facility]
--- OUTSIDE RECORDS SUMMARY | 2025-08-27 17:01 | XMS_ITS | Encounter Summary ---
Author Organization [facility] Address [address] [facility] [address] [place] [address] Phone Care Team Providers Care Chief Radiologic Technologist Name Role Phone Irving Swift DO Primary Care Provider [phone] Janee Berry MD, MPH Primary Care Provid er Unknown, Unknown Primary Care Provider Jaya Sanchez MD Primary Care Provider Encounter Details Date Type Department Care Team (Late st Contact Info) Description 10/13/2017 Ancillary Orders Non-Invasive Cardiology [address] [place] [address] Ulisses Lyn MD [address] [place] [address] [email or web address] Complete heart block Social History Tobacco Use [...] Complete heart block Examination: Device type: Pacemaker Coil Cleaner: Medtronic Mode: DDDR LRL/URL: 70/130 bpm Thresholds, [...] complete documented in this encounter Care Teams Chief Radiologic Technologist Relationship Specialty Start Date End Date Irving Swift DO 5 [place] [address] PCP - General 07/22/17 01/18/19 Janee Berry MD, MPH [address] [address] [email or web address] PCP - General Family Medicine 01/19/19 05/23/19 Unknown, MD Price [address] [address] PCP - General 05/24/19 09/06/19 Jaya Brock MD [address] [address] PCP - General 09/07/19 documented as of this encounter Additional Source Comments The information contained in this document represents components of the legal health record. It is not the complete legal health record.[facility]
--- OUTSIDE RECORDS SUMMARY | 2025-08-27 17:01 | XMS_ITS | Encounter Summary ---
Author Organization [facility] Address [address] [facility] [address] [place] [address] Phone Care Team Providers Care Contact Lens Technician Name Role Phone Irving Swift DO Primary Care Provider [phone]- [phone] Janee Berry MD, MPH Primary Care Provid er Unknown, Unknown Primary Care Provider Jaya Sanchez MD Primary Care Provider Encounter Details Date Type Department Care Team (Late st Contact Info) Description 12/28/2018 Ancillary Orders [facility] [address] [place] [address] Ulisses Lyn MD [address] [place] [address] [place] [id number] [email or web address] Social History Tobacco Use Types Packs/Day Years [...] on filedocumented in this encounter Care Teams Contact Lens Technician Relationship Specialty Start Date End Date Irving Swift DO 5 [place] [address] PCP - General 07/22/17 01/18/19 Janee Berry MD, MPH [address] [place] [address] [email or web address] PCP - General Family Medicine 01/19/19 05/23/19 Unknown, Unknown, [address] [place] [address] PCP - General 05/24/19 09/06/19 Jaya Brock MD [address] [place] [address] PCP - General 09/07/19 documented as of this encounter Additional Source Comments The information contained in this document represents components of the legal health record. It is not the complete legal health record.[facility]
--- OUTSIDE RECORDS SUMMARY | 2025-08-27 17:01 | XMS_ITS | Encounter Summary ---
Author Organization [facility] Address [address] [place] [address] Phone Care Team Providers Care Boarding House Cook Name Role Phone Irving Swift DO Primary Care Provider [phone] Janee Berry MD, MPH Primary Care Provid er Unknown, Unknown Primary Care Provider Jaya Sanchez MD Primary Care Provider Encounter Details Date Type Department Care Team (Latest Contact Info) Description 07/24/2017 Ancillary Orders [facility] [address] [place] [address] Santy Matos, NITIN [address] [place] [address] [address] [place] [address] Diagnosis unknown Social History Tobacco [...] * DEVICE CHECK: PPM REMOTE INTERROGATION WITH HUMAN RESOURCE STATISTICIAN REVIEW (08/22/2018 2:20 PM EST) Narrative Ulisses Moy DO - 08/23/2018 2:09 PM EST Reason for appointment: Remote pacemaker interrogation HPI: Routine 3 month remote pacemaker interrogation. No device related complaints. Indication for device: SSS. Examination: Device type: Pacemaker Security Business Analyst: Medtronic Mode: DDDR LRL/UPL: 70/130 bpm Mode [...] unknown documented in this encounter Care Teams Boarding House Cook Relationship Specialty Start Date End Date Irving Swift DO 5 [place] [address] PCP - General 07/22/17 01/18/19 Janee Berry MD, MPH [address] [place] [address] [email or web address] PCP - General Family Medicine 01/19/19 05/23/19 Unknown, Unknown, [address] [place] [address] PCP - General 05/24/19 09/06/19 Jaya Brock MD [address] [place] [address] PCP - General 09/07/19 documented as of this encounter Additional Source Comments The information contained in this document represents components of the legal health record. It is not the complete legal health record.[facility]
--- OUTSIDE RECORDS SUMMARY | 2025-08-27 17:01 | XMS_ITS | Encounter Summary ---
Author Organization [facility] Address [address] [place] [address] Phone Care Team Providers Care Solvent Recoverer Name Role Phone Jaya Brock MD Primary Care Provider Encounter Details Date Type Department Care Team (Late st Contact Info) Description 10/12/2020 Procedure Pass Non-Invasive Cardiology [address] [place] [address] Social History Tobacco Use Types Packs/Day Years [...] on filedocumented in this encounter Care Teams Solvent Recoverer Relationship Specialty Start Date End Date Jaya Brock MD PCP - General 09/07/19 documented as of this encounter Additional Source Comments The information contained in this document represents components of the legal health record. It is not the complete legal health record.[facility]
== END 2025-08-27 13:19 | disposition home or self-care (01) ==
LOC: HO.ENCR 12:47
PROVIDERS: Visit Provider Physician Assistant
DX: Z13.9 Encounter for screening, unspecified (principal); E11.22 Type 2 diabetes mellitus with diabetic chronic kidney disease; N18.4 Chronic kidney disease, stage 4 (severe); Z79.4 Long term (current) use of insulin; I12.9 Hypertensive chronic kidney disease with stage 1 through stage 4 chronic kidney disease, or unspecified chronic kidney disease

== ENCOUNTER → 2025-08-27 12:46 | Outpatient (BNVA) | payer MEDICARE, OTHER, SELFPAY | PROVIDERS: Visit Provider Physician Assistant | DX: I12.9 Hypertensive chronic kidney disease with stage 1 through stage 4 chronic kidney disease, or unspecified chronic kidney disease (principal); E11.22 Type 2 diabetes mellitus with diabetic chronic kidney disease; N18.4 Chronic kidney disease, stage 4 (severe); Z79.4 Long term (current) use of insulin | CPT/HCPCS: 82947; 83036; 99212 ==

== ENCOUNTER 2025-09-24 08:24 | Outpatient (REF) | payer MEDICARE, OTHER, SELFPAY ==
--- OUTSIDE RECORDS SUMMARY | 2025-09-21 14:30 | XMS_ITS | Encounter Summary ---
Author Organization [facility] Address [address] [place] [address] Care Team Providers Care Care Attendant Name Role Phone Diana Corona Primary Care Provider [phone] Reason for Visit * Reason Comments Wound Care Encounter Details Date Type Department Care Team (Late st Contact Info) Description 09/21/2025 2:30 PM EST Office Visit [facility] [address] [place] [address] Bharathi Atkinson PA [address] [place] [address] Dehiscence of operative wound, subsequent encounter (Primary Dx); Non-healing wound of amputation stump (CMS/HCC V24, CMS/HCC V28); Non-pressure chronic ulcer of other part of right lower leg with fat layer exposed (CMS/HCC V24, CMS/HCC V28) Social History Tobacco [...] Sign Reading Time Taken Comments Blood Pressure 158/66 09/21/2025 2:07 PM EST Pulse 69 09/21/2025 2:07 PM EST Temperature 36.2 C (97.1 F) 09/21/2025 2:07 PM EST Respiratory Rate 18 09/21/2025 2:07 PM EST Oxygen Saturation 99% 09/21/2025 2:07 PM EST Inhaled Oxygen Concentration - - [...] Progress Notes * Ginny Martínez RN - 09/21/2025 2:30 PM EST PROVIDER ORDERS Go to ER if you are presenting with fever, chills, increased redness, pain, swelling, warmth aroundwound area and/or foul smelling odor. If you have any questions or concerns, please contact the [facility] [place] at . Follow up(s)/ Referrals: Vascular: [facility] March 2026 Intermediate: Home care: [facility] Additional Orders: [...] please remove / unwrap compression and notify [facility] at . ) 4 Issac Wrap Offloading: Limit pressure to wound as much as possible Negative Pressure Wound Therapy: (If wound vac is off/non functioning for more than 2 hours, please remove vac dressing, apply a wetto dry dressing and notify your home care agency) N/A Cellular/Tissue Based Products: Cellular or tissue based product type: 2025 Bathing / Showering / Hygiene: Ok to [...] Change Frequency: Three times each week * Lizabeth James RN - 09/21/2025 2:30 PM EST Discharge Patient directed to check out at front end web designer and collect visit summary with wound care directions and book follow up as directed. Dressings applied:: Wound #1 (Right Lateral BKA): Cleanser: Cleanse [...] Dressing Change Frequency: Three times each week Dressing technique was demonstrated and explained. Patient questions answered. Pt departed from wound care center without issue or incidence. * Lizabeth James RN - 09/21/2025 2:30 PM EST Discharge Patient directed to check out at front end web designer and collect visit summary with wound care directions and book follow up as directed. Dressings applied: Dressing technique was demonstrated and explained. Patient questions answered. Pt departed from wound care center without issue or incidence. * Lizabeth James RN - 09/21/2025 2:30 PM EST Discharge Patient directed to check out at front end web designer and collect visit summary with wound care directions and book follow up as directed. Dressings applied: Wound Location(s): Wound #1 (Right Lateral BKA): [...] Dressing Change Frequency: Three times each week Dressing technique was demonstrated and explained. Patient questions answered. Pt departed from wound care center without issue or incidence. documented in this encounter Plan of Treatment Upcoming Encounters Date Type Department Care Team (Late st Contact Info) Description 10/05/2025 2:30 PM EST Clinical Support [facility] [address] [place] [phone] 10/12/2025 2:30 PM EST Clinical Support [facility] [address] [place] [phone] 10/19/2025 2:30 PM EST Clinical Support [facility] [address] [phone] 10/26/2025 2:30 PM EST Clinical Support [facility] [address] [place] [phone] 11/02/2025 2:30 PM EST Clinical Support [facility] [address] [place] [phone] 02/11/2026 1:30 PM EDT Ancillary Procedure [facility] [address] [facility] [address] [place] [address] 03/15/2026 1:00 PM EDT Office Visit Vascular Surgery - [place] [address] [place] [phone] Andie Chua PA [address] [place] [phone] 06/06/2026 1:30 PM EDT Ancillary Procedure [facility] - [address] [facility] [address] [place] [address] Pending Results Name Type Priority Associated Diagnoses Date /Time Debridement Incision Right;Lateral Leg (BKA) Procedures Routine Dehiscence of operative wound, subsequent encounter Non-healing wound of amputation stump (CMS/HCC V24, CMS/HCC V28) Non-pressure chronic ulcer of other part of right lower leg with fat layer exposed (CMS/HCC V24, CMS/HCC V28) 09/21/2025 2:30 PM EST documented as of this encounter Goals Goal Patient Goal Type Associated Problems Recent Progress Patient-Stated? Author Decrease Wound Volume by X% by date (in notes) Care Plan Impaired Tissue Improving( 2:20 PM EST) No Ginny Martínez RN Patient and Caregiver Understand Wound Care Education Care Plan Impaired Tissue On track( 2:20 PM EST) Ginny Justin RN Wound volume breakdown reduced by X% [...] Priority Date/Time Associated Diagnosis Comments DEBRIDEMENT Routine 09/21/2025 2:30 PM EST Dehiscence of operative wound, subsequent encounter Non-healing wound of amputation stump (CMS/HCC V24, CMS/HCC V28) Non-pressure chronic ulcer of other part of right lower leg with fat layer exposed (CMS/HCC V24, CMS/HCC V28) documented in this encounter Visit Diagnoses Diagnosis Dehiscence of operative wound, subsequent encounter- Primary Non-healing wound of amputation stump ([facility] V24, [facility] V28) Non-pressure chronic ulcer of other part of right lower leg with fat layer exposed ([facility] V24, [facility] V28) Encounter for adjustment or management of cardiac device documented in this encounter Additional Health Concerns Active Problems Noted Date Diagnosed Date Impaired Tissue 07/27/2025 Education needed on impact of smoking on wound 1 Education needed related to ulceration/compromised skin integrity. 07/27/2025 documented as of this encounter Care Teams Care Attendant Relationship Specialty Start Date End Date Diana Corona PA [address] [place] [address] PCP - General Physician Tire Man 04/10/25 documented as of this encounter
--- OUTSIDE RECORDS SUMMARY | 2025-09-24 08:35 | XMS_ITS | Encounter Summary ---
Author Organization [facility] Address [address] [address] Phone Care Team Providers Care Hand Stemmer Name Role Phone Mercy Grewal Primary Care Provider [phone] Reason for Visit * Reason Comments Med Refill Encounter Details Date Type Department Care Team (Late st Contact Info) Description 09/17/2025 Refill [facility] [address] [address] Simone Wall MD [address] [address] Social History Tobacco Use Types Packs/Day Years Used Date Smoking Tobacco: Never Smokeless Tobacco: Never Alcohol Use Standard Drinks/Week [...] on filedocumented in this encounter Care Teams Hand Stemmer Relationship Specialty Start Date End Date Mercy Grewal [address] [place] [address] PCP - General 03/03/23 documented as of this encounter
--- OUTSIDE RECORDS SUMMARY | 2025-09-24 08:35 | XMS_ITS | Patient Health Record ---
Author [facility] Address [address] [place], [place] [address] Care Team Providers Care Conche Operator Name Role Phone Irving Swift MD Primary Care Provider Haroon Hatch Unavailable [phone] Allergies Allergen (clinical drug ingredient) Drug/Non Drug [...] Test Name Order Date Hemoglobin A1c 10/18/2015 [id number] NAIL, 1-5 10/18/2015 [id number] Plate 10/18/2015 [id number] SKIN LESIONS, OVER 4 10/18/19 16 [id number] DYSTROPHIC NAILS ANY # Insurance Providers Payer Name Payer Address Payer Phone Subscriber Number Group Number Insured Name Patient Relationship to Insured Coverage Start Date Coverage End Date Medicare National Govt Sv[employer] [address] [place] [phone] [id number] Lyssa Mark Anthony Self - patient is the insured [employer] ([employer]) [address] [place] [address] [phone] [id number] Lyssa Mark Anthony Self - patient [...]
--- OUTSIDE RECORDS SUMMARY | 2025-09-24 08:35 | XMS_ITS | Encounter Summary ---
Author Organization [facility] [place] [address] Care Team Providers Care Hospital Admissions Officer Name Role Phone Diana Corona Primary Care Provider [phone] Encounter Details Date Type Department Care Team (Late st Contact Info) Description 04/15/2025 Lab Requisition [facility] [address] [facility] [place] [address] Frnaces Meléndez PA [address] [place] [address] Encounter for other general examination [...] Description 10/05/2025 2:30 PM EST Clinical Support [facility] [address] [place] [phone] 10/12/2025 2:30 PM EST Clinical Support [facility] [address] [place] [phone] 10/19/2025 2:30 PM EST Clinical Support [facility] [address] [place] [phone] 10/26/2025 2:30 PM EST Clinical Support [facility] [address] [place] [phone] 11/02/2025 2:30 PM EST Clinical Support [facility] [address] [place] [address] 02/11/2026 1:30 PM EDT Ancillary Procedure [facility] - [address] [place] [address] 03/15/2026 1:00 PM EDT Office Visit Vascular Surgery - [place] [address] [place] [address] Andie Chua PA [address] [place] [phone] 06/06/2026 1:30 PM EDT Ancillary Procedure [facility] [address] [place] [address] documented as of this encounter Procedures Procedure [...] 12:46 PM EDT [facility] RBC 2.20(L) 4.50 - 5.50 M/mcL LAB HEMETOLOGY METHOD 04/15/2025 12:46 PM EDT [facility] Hemoglobin 7.3(L) 13.5 - 17.5 g/dL LAB HEMETOLOGY METHOD 04/15/2025 12:46 PM [facility] Hematocrit 23.7(L) 42.0 - 54.0 % LAB HEMETOLOGY METHOD 04/15/2025 12:46 PM [facility] MCV 106.3(H) 79.0 - 98.0 FL LAB HEMETOLOGY METHOD 04/15/2025 12:46 PM [facility] MCH 32.7(H) 27.0 - 32.0 pcg LAB HEMETOLOGY METHOD 04/15/2025 12:46 PM [facility] MCHC 30.8(L) 32.0 - 37.0 g/dL LAB HEMETOLOGY METHOD 04/15/2025 12:46 PM [facility] RDW 15.9(H) 11.0 - 15.0 % LAB HEMETOLOGY METHOD 04/15/2025 12:46 PM [facility] Platelets 180 130 - 400 K/mcL LAB HEMETOLOGY METHOD 04/15/2025 12:46 PM [facility] MPV 10.6 7.0 - 11.0 FL LAB HEMETOLOGY METHOD 04/15/2025 12:46 PM [facility] NRBC 0.0 <1.0 % LAB HEMETOLOGY METHOD 04/15/2025 12:46 PM [facility] NRBC Absolute 0.00 <0.10 K/mcL LAB HEMETOLOGY METHOD 04/15/2025 12:46 PM [facility] Neutrophils Relative 65.3 % LAB HEMETOLOGY METHOD 04/15/2025 12:46 PM [facility] Lymphocytes Relative 17.8 % LAB HEMETOLOGY METHOD 04/15/2025 12:46 PM [facility] Monocytes Relative 11.4 % LAB HEMETOLOGY METHOD 04/15/2025 12:46 PM EDT [facility] Eosinophils Relative 4.5 % LAB HEMETOLOGY METHOD 04/15/2025 12:46 PM EDT [facility] Basophils Relative 0.5 % LAB HEMETOLOGY METHOD 04/15/2025 12:46 PM EDT [facility] Immature Granulocytes Relative 0.5 % LAB HEMETOLOGY METHOD 04/15/2025 12:46 PM EDT [facility] Neutrophils Absolute 5.35 1.50 - 7.00 K/mcL LAB HEMETOLOGY METHOD 04/15/2025 12:46 PM EDT [facility] Lymphocytes Absolute 1.46 1.00 - 5.00 K/mcL LAB HEMETOLOGY METHOD 04/15/2025 12:46 PM EDT [facility] Monocytes Absolute 0.93 0.20 - 1.00 K/mcL LAB HEMETOLOGY METHOD 04/15/2025 12:46 PM EDT [facility] Eosinophils Absolute 0.37 0.00 - 0.50 K/mcL LAB HEMETOLOGY METHOD 04/15/2025 12:46 PM EDT [facility] Basophils Absolute 0.04 0.00 - 0.20 K/mcL LAB HEMETOLOGY METHOD 04/15/2025 12:46 PM EDT [facility] Immature Granulocytes Absolute 0.04(H) 0.00 - 0.03 K/mcL LAB HEMETOLOGY METHOD 04/15/2025 12:46 PM EDT [facility] Blood Venous blood specimen / Unknown Venipuncture / Unknown 04/15/2025 6:42 AM EDT 04/15/2025 12:05 PM EDT us Frances CHACON LAB BLOOD ORDERABLES Final Resul t [facility] [address] [place] [address], [place] [phone] * Magnesium (04/15/2025 6:42 AM EDT) [facility] Magnesium 2.2 1.9 - 2.6 mg/dL LAB CHEMISTRY METHOD 04/15/2025 1:13 PM EDT [facility] Blood Venous blood specimen / Unknown Venipuncture / Unknown 04/15/2025 6:42 AM EDT 04/15/2025 12:05 PM EDT Frances CHACON LAB BLOOD ORDERABLES Final Resul t [facility] [address] [place] [address], [place] [phone] * (ABNORMAL) Comprehensive metabolic panel (04/15/2025 6:42 AM EDT) [facility] Sodium 138 133 - 145 mmol/L LAB CHEMISTRY METHOD 04/15/2025 1:24 PM T [facility] Potassium 4.2 3.5 - 5.5 mmol/L LAB CHEMISTRY METHOD 04/15/2025 1:24 PM [facility] Chloride 107 96 - 110 mmol/L LAB CHEMISTRY METHOD 04/15/2025 1:24 PM [facility] CO2 26 21 - 32 mmol/L LAB CHEMISTRY METHOD 04/15/2025 1:24 PM T [facility] Anion Gap 5 3 - 11 LAB CHEMISTRY METHOD 04/15/2025 1:24 PM [facility] Glucose 115(H) 70 - 100 mg/dL LAB CHEMISTRY METHOD 04/15/2025 1:24 PM [facility] BUN 28(H) 5 - 25 mg/dL LAB CHEMISTRY METHOD 04/15/2025 1:24 PM [facility] Creatinine 1.49(H) 0.70 - 1.30 mg/dL LAB CHEMISTRY METHOD 04/15/2025 1:24 PM [facility] eGFR 46(L) >=60 mL/min/1. 73m2 LAB CHEMISTRY METHOD 04/15/2025 1:24 PM [facility] Comment:Calculation based on the Chronic Kidney Disease Epidemiology Collaboration (CKD-EPI) equation refit without adjustment for race. BUN/Creatinine Ratio 18.8 LAB CHEMISTRY METHOD 04/15/2025 1:24 PM [facility] Calcium 8.6 8.5 - 10.5 mg/dL LAB CHEMISTRY METHOD 04/15/2025 1:24 PM [facility] AST (SGOT) 60(H) 10 - 42 unit/L LAB CHEMISTRY METHOD 04/15/2025 1:24 PM [facility] Comment:Results verified by repeat testing ALT (SGPT) 23 10 - 60 unit/L LAB CHEMISTRY METHOD 04/15/2025 1:24 PM [facility] Alkaline Phosphatase 41(L) 42 - 121 unit/L LAB CHEMISTRY METHOD 04/15/2025 1:24 PM [facility] Total Protein 5.9(L) 6.0 - 8.0 g/dL LAB CHEMISTRY METHOD 04/15/2025 1:24 PM [facility] Albumin 2.8(L) 3.2 - 5.0 g/dL LAB CHEMISTRY METHOD 04/15/2025 1:24 PM [facility] Total Bilirubin 0.6 0.0 - 1.4 mg/dL LAB CHEMISTRY METHOD 04/15/2025 1:24 PM [facility] Blood Venous blood specimen / Unknown Venipuncture / Unknown 04/15/2025 6:42 AM EDT 04/15/2025 12:05 PM EDT us Frances CHACON LAB BLOOD ORDERABLES Final Resul t [facility] [address] [place] [address], documented in this encounter Visit Diagnoses Diagnosis [...] documented as of this encounter Care Teams Hospital Admissions Officer Relationship Specialty Start Date End Date Diana Corona PA [address] [place] [address] PCP - General Physician Match Marker 04/10/25 documented as of this encounter
--- OUTSIDE RECORDS SUMMARY | 2025-09-24 08:35 | XMS_ITS | Patient Health Record ---
Author Organization [facility] Address [address] [place] [address] Care Team Providers Care Roofing Machine Tender Name Role Phone Jeniffer(inactive) Irving DOLAN Primary Care Provider U Jonas Trotter [phone] Allergies Allergen (clinical drug ingredient) Drug/Non Drug Allergy documented on EMR Reaction Allergy Type Onset Date Status sulfamethoxazole / trimethoprim bactrim (uncoded) Unknown Allergy Active ivp dye (uncoded) Unknown Allergy Ac tive tetracycline tetracycline (uncoded) Unknown Allergy Active Reason For Referral No Information Medications Medication SIG (Take, Route, Frequency, Duration) Notes Start Date End Date Status Colchicine Active LORazepam Active Lansoprazole Active Atenolol Active Suprep Bowel Prep Suprep Solution as directed Orally once; Duration: 1 dose 12/02/2011 Active Allopurinol Active Caduet Active Zestril Active Plavix Active Gabapentin Active Tylenol PM Extra Strength Active Baby Aspirin Active traMADol HCl Active Nitrostat Active Social History Social History Additional Details Category Social Info Options Details Miscellaneous: Marital status: Section Notes: No smoking nor alcohol for 1 5 years Problems Problem Type SNOMED Code ICD Code Onset Dates Problem Status W/U Status Risk Notes Problem Diverticulosis of colon (finding) (335392130) Diverticulosis of colon (without mention of hemorrhage) (562.10) Active confirmed Problem History of polyp of colon (situation) (182094423) Personal history of colonic polyps (V12.72) Active confirmed Problem Screening for malignant neoplasm of colon (181801578) Special screening for malignant neoplasms, colon (V76.51) Active confirmed Plan Of Treatment Future Test Test Name Order Date COLONOSCOPY 12/01/2011 Insurance Providers Payer Name Payer Address Payer Phone Subscriber Number Group Number Insured Name Patient Relationship to Insured Coverage Start Date Coverage End Date MEDICARE OF [place] [address] [place] [address] [id number] CHERELLE SALAZAR Self - patient is the insured COUNTS INCLUDE [address] BEDS AT THE [facility] INDEMNITY [address] [place] [address] [id number] CHERELLE SALAZAR Self - patient is the insured Medical (General) History Medical History History ICD Code CAD-WI's in 1996 and 2001; multiple cath 's with stents-last time in 2009 Peripheral vascular disease No Diabetes, CVA, lung disease, renal di sease gout HTN hyperlipidemia arthritis back pain colon polyps ischemic colitis as above Surgical History Surgery Date(Month/Year) CABG 1996 Bilateral LE Bypass in 2009 hernia pacemaker back and neck knee
--- OUTSIDE RECORDS SUMMARY | 2025-09-24 08:35 | XMS_ITS ---
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 Omalley underwent bilateral radiofrequency ablation on 10/08/2022 at [facility] with some improvement lasting 1 month. 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
--- OUTSIDE RECORDS SUMMARY | 2025-09-24 08:35 | XMS_ITS | Continuity of Care Document ---
Author Organization [place] - [facility], [facility] Address [address] [place] [address] Care Team Providers Care Bottled Beverage Inspector Name Role Phone CHRISTIE CAR Referring Provider Assessment Encounter Date Assessment Date Assessment LastModified by Organization Details LastModified Time 08/20/2025 08/20/2025 Patient with history of squamous cell carcinoma [...] in 5 month Audio at his convenience Mark Anthony Omalley is an 84-year-old male with a history of peripheral vascular disease, ynhhz-bea-qblp amputation, and complications from vascular bypass surgery, presenting with persistent wound infections and difficulty swallowing dry substances. The patient's throat examination reveals no abnormalities in the larynx or epiglottis, and there is no evidence of cancer recurrence in the vocal cords or epiglottic fold. No lymphadenopathy is noted in the neck. The plan includes continued wound care management with nurse visits twice weekly and appointments at the wound center. Hyperbaric oxygen therapy is not currently being utilized. The patient is encouraged to maintain his current home modifications, including the ramp and vehicle adaptations, to support his mobility and independence. For his swallowing difficulty, a throat spray may be considered to alleviate dryness. No evidence of recurrent carcinoma lupe Not available 08/20/2025 16:44:43 Plan of Treatment Reminders Order Date Submit Date Provider Last Modified By Organization Details Last Modified Time Details Appointments Establish ed 30 2025 01:00P M MELVIN GONZALEZ MD Not available Not available Not available Lab None recorded. Referral None recorded. Procedures None recorded. Surgeries None recorded. Imaging None recorded. Medication Orders None recorded. Patient TargetsNo targets recorded. Patient Instructions Encounter Date Encounter Id Patient Instructions Last Modified By Organization Details Last Modified Time 08/20/2025 [id number] - Continue wound care management with nurse visits twice weekly and appointments at the wound center. - Maintain home modifications, including ramp and vehicle adaptations, to support mobility. - Consider using throat spray to alleviate dryness when swallowing. - Follow up as directed for monitoring wound healing and addressing further complications. lupe Not available 08/20/2025 13:14:02 Please note: Parts of this encounter note have been generated by AI based on audio conversation. Patient consent was required prior to utilizing this technology. Content review was required prior to finalizing the note. lupe Not available 08/20/2025 13:14:02 Reason for Referral None Reported. Problems Name Problem SNOMED Code Status Onset Date Resolution Date Notes Provider Name and Address Organization Details Recorded Time Long-term current use of antiplate let drug 68415123398 4101 Active 2017 senior care (current) use of antithrom botics/an tiplatele ts; Note: Date Diagnosed : 04/23/2017 12:51 PM (Z79.02) Not Available [facility] 4 02:46:28 Bleeding from nose 860464559 Active 2017 Epistaxis ; Note: Date Diagnosed : 04/23/2017 12:51 PM (R04.0) Not Available [facility] 4 02:46:21 Dysphonia 42816949 Active 2019 Hoarsenes s; Note: Date Diagnosed : 11/15/2019 1:00 PM (R49.0) Not Available [facility] 4 02:46:18 Disorder of vocal cord 82165049 Active 2019 Other diseases of vocal cords; Note: Date Diagnosed : 11/15/2019 1:00 PM (J38.3) Not Available 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; Note: Date Diagnosed : 03/04/2020 2:33 PM (C32.0) Not Available [facility] 4 02:46:28 Follow-up visit Active 2019 Encounter for follow-up examinati on after completed treatment for malignant neoplasm; Note: Date Diagnosed : 04/24/2020 8:56 AM (Z08) Not Available [facility] 4 02:46:22 Lymphedem a 857039032 Active 2019 Lymphedem a, not elsewhere classifie d; Note: Date Diagnosed : 04/24/2020 9:00 AM (I89.0) Not Available [facility] 4 02:46:21 History of malignant neoplasm of larynx 872227887 Active 2020 Personal history of malignant neoplasm of larynx; Note: Date Diagnosed : 12/12/2020 12:47 PM (Z85.21) Not Available [facility] 4 02:46:18 Vasomotor rhinitis 1933091 Active 2020 Vasomotor rhinitis; Note: Date Diagnosed : 01/22/2021 11:42 AM (J30.0) Not Available [facility] 4 02:46:22 Pharyngea l dysphagia 33093343005 105 Active 2021 Dysphagia , pharyngea l phase; Note: Date Diagnosed : 03/20/2022 11:46 AM (R13.13) Not Available 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 123789557 Active 2022 Malignant neoplasm of aryepiglo ttic fold NOS; Note: Changed from D38.0 to C13.1 ( 3 12:15 PM) , Date Diagnosed : 02/08/2023 11:22 AM (D38.0) Not Available [facility] 4 02:46:18 Chronic hoarsenes s 62777429188 Active 2023 MELVIN QUINN MD [address], [place], [place], [address] , [place] - [facility] 4 18:43:13 Edema of larynx following radiother apy 439637105 Active 2023 MELVIN QUINN MD [address], [place], [place], [address] , [place] - [facility] 4 10:25:49 Abnormal auditory perceptio n 59977195 Active 2023 MELVIN QUINN MD [address], [place], [place], [address] , [place] - [facility] 4 10:26:03 Bilateral tinnitus 29247220909 Active 2023 MELVIN QUINN MD [address], [place], [place], [address] , [place] - [facility] 4 10:26:07 Oropharyn geal dysphagia 81225240 Active 2023 MELVIN QUINN MD [address], [place], [address] , [place] - [facility] 4 10:26:16 Sensorine ural hearing loss of bilateral ears 710710427 Active 2023 COLIN JIMENEZ MA, CCC-A [address] [facility],[place] [address], [place], [address] , [facility] - [facility] 11:01:59 Problem Notes None recorded. Procedures Surgical History Date Name Laterality Status Provider Name and Address Organization Details Recorded Time 08/20/20 25 Fiberoptic Laryngoscopy (Comprehensive) completed MELVIN AKERS MD [address] [facility],[address], [address], [facility] - [facility] 08/20/2025 13:13:11 03/22/20 25 Fiberoptic Laryngoscopy (Comprehensive) completed MELVIN AKERS MD [address] [place] [address],[address], [address], [facility] - [facility] 03/22/2025 13:14:37 09/21/20 24 Fiberoptic Laryngoscopy (Comprehensive) completed MELVIN AKERS MD [address] [facility],[address], [address], [facility] - [facility] 09/21/2024 11:34:17 05/31/20 24 Fiberoptic Laryngoscopy (Comprehensive) completed MELVIN AKERS MD [address] [place] [address],[address], [address], [facility] - [facility] 05/30/2024 10:05:32 02/16/20 24 Comp Audio with Tymps - 77106 & 08061 completed COLIN JIMENEZ MA, CCC-A [address] [facility],[address], [address], [facility] - [facility] 02/16/2024 11:01:33 02/16/20 24 Fiberoptic Laryngoscopy (Comprehensive) completed MELVIN AKERS MD [address] [facility],[address], [address], [facility] 02/16/2024 10:25:42 02/24/20 23 Laryngoscopy with biopsy completed MELVIN AKERS MD [address] [facility],[address], [address], [place] - [facility] 02/14/2024 18:47:38 12/19/19 20 Laryngoscopy for treatment completed MELVIN AKERS MD [address] [facility] [place],[address], [address], [place] - [facility] 02/14/2024 18:47:06 amputation of lower limb through tibia and fibula completed MELVIN AKERS MD [address] [facility] [place],[address], [address], [place] - [facility] 08/20/2025 13:08:51 insertion of stent into aorta completed MELVIN AKERS MD [address] [facility] [place],[address] [facility], [place], [address], [place] [facility] 09/21/2024 11:35:38 peripheral arterial bypass completed MELVIN AKERS MD [address] [facility] [place],[address], [address], [place] - [facility] 09/21/2024 11:35:45 Imaging Results None recorded. Procedure Notes None recorded. Medical Equipment None Reported. Allergies Allergen ID Allergen Name Allergen Category Reaction Reaction Severity Criticality Documentation Date Start Date Code Code System Note Provider Name and Address Organization Details Recorded Time 004032 sulfameth oxazole / trimethop rim medicatio n Not available Not available Not available 08/20/2025 17073 RxNorm Not Available [employer] - prod 12:36:50 551670 Iodinated contrast media (substanc e) medicatio n Not available Not available Not available 08/20/20252019 90969 2004 SNOMED Not Available [employer] - prod 12:36:59 543640 tetracycl ine medicatio n Not available Not available Not available 08/20/2025 67363 RxNorm Not Available [employer] - prod 12:37:00 344617 Substance with sulfonami de structure and antibacte rial mechanism of action (substanc e) medicatio n rash Not available [facility] 08/20/20252023 69045 8003 SNOMED Rash/ derma titis Not Available [facility] [employer] - prod 5 12:37:46 96872 Bactrim medicatio n other Not available Not available 02/15/2024 36943 9 RxNorm React ion: branto wn, unspe cifie d;; Not Available [facility] 4 01:04:16 60500 Substance with tetracycl ine structure (substanc e) medicatio n other Not available Not available 02/15/2024 75247 8001 SNOMED React ion: unkno wn, unspe cifie d;; Not Available [facility] 4 01:04:19 Medications Name Sig Start Date Stop Date Status Note LastModified by Organization Details LastModified Time Santyl 250 unit/gram topical ointment APPLY TOPICALL Y 1 (ONE) TIME EACH DAY. APPLY NICKEL THICKNES S LAYER TO RIGHT KNEE WOUND DAILY 08/20 completed Not Available Not Available Not Available metformin 500 mg tablet 04/23 completed Medicati on ID: [id number] D uration Value: 90 Brand Name: metformi n Send Method: E-Prescr ibed Sub s Allowed: subs OK Medic ationGen ericName : metformi n Not Available Not Available Not Available atorvasta tin 80 mg tablet TAKE 1 TABLET BY MOUTH AT BEDTIME active Not Available Not Available No t Available prednison e 10 mg tablet PLEASE SEE ATTACHED FOR DETAILED DIRECTIO NS 03/22 completed Not Available Not Available Not Available gabapenti n 600 mg tablet 12/18 completed Medicati on ID: [id number] B rand Name: gabapent in Send Method: E-Prescr ibed Sub s Allowed: subs OK Medic ationGen ericName : gabapent in Not Available Not Available Not Available doxycycli ne hyclate 100 mg capsule PLEASE SEE ATTACHED FOR DETAILED DIRECTIO NS 08/17 completed Not Available Not Available Not Available ketoconaz ole 2 % shampoo SHAMPOO 2 TO 3 X PER WEEK FOR MAINTENA NCE active Not Available Not Available No t Available oxybutyni n chloride ER 10 mg tablet,ex tended release 24 hr 04/23 completed Medicati on ID: [id number] D uration Value: 30 Brand Name: oxybutyn in chloride Send Method: E-Prescr ibed Sub s Allowed: subs OK Medic ationGen ericName : oxybutyn in chloride Not Available Not Available Not Available atenolol 100 mg tablet 03/22 completed Medicati on ID: [id number] B rand Name: atenolol Send Method: E-Prescr ibed Sub s Allowed: subs OK Medic ationGen ericName : atenolol Not Available Not Available Not Available glipizide ER 10 mg tablet, extended release 24 hr 04/23 completed Medicati on ID: [id number] D uration Value: 90 Brand Name: glipizid [...] mg capsule 12/18 completed Medicati on ID: [id number] B rand Name: gabapent in Send Method: E-Prescr ibed Sub s Allowed: subs OK Medic ationGen ericName : gabapent in Not Available Not Available Not Available Zyrtec 10 mg tablet Take 1 tablet by mouth as directed 03/22 completed Medicati on ID: [id number] D uration Value: 1 Brand Name: Zyrtec S end Method: E-Prescr ibed Sub s Allowed: subs OK Speci al Instruct ion: take one tablet by mouth [address] Scan Med icationG enericNa me: Zyrtec Not Available Not Available Not Available clopidogr el 75 mg tablet 12/17 completed Medicati on ID: [id number] D uration Value: 90 Brand Name: clopidog rel Send Method: E-Prescr ibed Sub s Allowed: subs OK Medic ationGen ericName : clopidog rel Not Available Not Available Not Available amlodipin e 5 mg tablet 04/23 completed Medicati on ID: [id number] D uration Value: 90 Brand Name: amlodipi [...] mg tablet 04/23 completed Medicati on ID: [id number] D uration Value: 90 Brand Name: tramadol [...] 1 TABLET BY MOUTH TWICE A DAY NEEDED FOR ANXIETY active Not Available Not Available No t Available linezolid 600 mg tablet TAKE 1 TABLET BY MOUTH 2 TIMES A DAY FOR 10 DAYS. 08/17 completed Not Available Not Available Not Available prednison e 1 mg tablet 12/18 completed Medicati on ID: [id number] B rand Name: predniso ne Send Method: [...] Available gabapenti n 300 mg capsule TAKE 2 CAPSULES BY MOUTH 3 TIMES A DAY FOR 90 DAYS active Not Available Not Available No t Available allopurin ol 300 mg tablet 04/23 completed Medicati on ID: [id number] D uration Value: 90 Brand Name: allopuri [...] Not Available Not Available No t Available levofloxa blake 500 mg tablet TAKE 1 TABLET BY MOUTH 1 TIME EACH DAY FOR 7 DAYS. 08/17 completed Not Available Not Available Not Available ipratropi um bromide 42 mcg (0.06 %) nasal spray 12/18 completed Medicati on ID: [id number] B rand Name: ipratrop ium bromide Send [...] MOUTH TWICE A DAY FOR 7 DAYS 08/17 completed Not Available Not Available Not Available tobramyci n 0.3 %-dexamet hasone 0.1 % eye drops,shiv pension INSTILL 1 DROP INTO BOTH EYES 3 TIMES A DAY 08/20 completed Not Available Not Available Not Available oxycodone 5 mg tablet TAKE 1 TABLET BY MOUTH EVERY 8 HOURS NEEDED FOR PAIN active Not Available Not Available No t Available Benadryl Allergy 25 mg tablet 2 tablet by mouth 03/22 completed Medicati on ID: [id number] D uration Value: 1 Prescri bed By Name: RODERICK Chacon nd Name: Benadryl Allergy Send Method: E-Prescr ibed Sub s Allowed: subs OK Speci al Instruct ion: take 2 tablets [address] scan Med icationG enericNa me: Benadryl Allergy Not Available Not Available Not Available olmesarta n 5 mg tablet 12/18 completed Medicati on ID: [id number] B rand Name: olmesart an Send Method: E-Prescr ibed Sub s Allowed: subs OK Medic ationGen ericName : olmesart an Not Available Not Available Not Available olmesarta n 20 mg tablet 03/22 completed Medicati on ID: [id number] B rand Name: olmesart an Send Method: [...] mg tablet 04/23 completed Medicati on ID: [id number] D uration Value: 90 Brand Name: escitalo pram oxalate Send Method: E-Prescr ibed Sub s Allowed: subs OK Medic ationGen ericName : escitalo pram oxalate Not Available Not Available Not Available Novolog FlexPen U-100 Insulin aspart 100 unit/mL (3 mL) subcutane ous 03/22 completed Medicati on ID: [id number] B rand Name: Novolog Flexpen U-100 Insulin Send Method: E-Prescr ibed Sub s Allowed: subs OK Medic ationGen ericName : Novolog Flexpen U-100 Insulin Not Available Not Available Not Available duloxetin e 60 mg capsule,d elayed release TAKE 1 CAPSULE BY MOUTH EVERY DAY active Not Available Not Available No t Available pregabali n 150 mg capsule 03/22 completed Medicati on ID: [id number] B rand Name: pregabal in Send Method: E-Prescr ibed Sub s Allowed: subs OK Medic ationGen ericName : pregabal in Not Available Not Available Not Available Lyrica 75 mg capsule 04/23 completed Medicati on ID: [id number] D uration Value: 90 Brand Name: Lyrica S end Method: E-Prescr ibed Sub s Allowed: subs OK Medic ationGen ericName : Lyrica Not Available Not Available Not Available Levemir FlexPen 100 unit/mL (3 mL) solution subcutane ous insulin pen ADMINIST ER 30 UNITS UNDER THE SKIN DAILY 03/22 completed Not Available Not Available Not Available fenofibra te nanocryst allized 48 mg tablet TAKE 1 TABLET BY MOUTH EVERY DAY active Not Available Not Available No t Available fenofibra te nanocryst allized 145 mg tablet TAKE 1 TABLET BY MOUTH DAILY 08/20 completed Not Available Not Available Not Available oxycodone 10 mg tablet TAKE 1 [...] pen injector 03/22 completed Medicati on ID: [id number] B rand Name: Trulicit y Send Method: [...] x 1/4 12/18 completed Medicati on ID: [id number] B rand Name: BD Ultra-Fi ne Micro Pen Needle S end Method: E-Prescr ibed Sub s Allowed: subs OK Medic ationGen ericName : BD Ultra-Fi ne Micro Pen Needle Not Available Not Available Not Available Ozempic 0.25 mg or 0.5 mg (2 mg/1.5 mL) subcutane ous pen injector 03/22 completed Medicati on ID: [id number] B rand Name: Ozempic Send Method: E-Prescr [...] subcutane ous pen injector INJECT 2 MG SUBCUTAN EOUSLY EVERY WEEK (SATURDA YS) active Not Available Not Available No t Available Ozempic 0.25 mg or 0.5 mg (2 mg/3 mL) subcutane ous pen injector INJECT 0.5 MG SUBCUTAN EOUSLY EVERY WEEK 08/20 completed Not Available Not Available Not Available FreeStyle Vivek 3 Plus Sensor device USE DAILY DIRECTED TO MONITOR GLUCOSE active Not Available Not Available No t Available Ev 2nd Gen Pen Needle 32 gauge x 5/32 USE DIRECTED ONCE DAILY active Not Available Not Available No t Available Vitals Date Recorded Body height Body mass index (BMI) Body weight Systolic And Diastolic Provider Name and Address Organization Details Last Updated DateTime 08/20/2025 172.72 cm 27.4 kg/m2 54784.63 g 132/64 mm[Hg] Viri Leonard [place] - [facility] 08/20/2025 12:51:36 Social History None recorded. Functional Status Question Answer Note LastModified by Organizat ion Details LastModified Time Do you use any illicit or recreational drugs? No [email or web address] Information not available 02/16/2024 Do you or have you ever used any other forms of tobacco or nicotine? No [email or web address] Information not available 02/16/2024 What is your level of alcohol consumption? None [email or web address] Information not available 02/16/2024 Mental Status None recorded. Family History Nothing Reported. Medical History Condition Response Diabetes Y Hyperlipidemia Y Hypertension Y High Cholesterol Y Past Encounters Encounter ID Performer Location Encounter Start Date Encounter Closed Date Diagnosis/Indication Diagnosis SNOMED-CT Code Diagnosis ICD10 Code Diagnosis IMO Codes Diagnosis Note [id number] MELVIN QUINN MD [facility] [address] [address] 08/20/2025 12:35:40 08/20/2025 13:18:20 History of malignant neoplasm of larynx 354994557 Z85.21 Chronic hoarseness 09770 90469 105 R49.0 Edema of l arynx following radiotherapy 919291872 J38.4 Bilateral tinnitus 18557 32265 102 H93.13 Oropharyng eal dysphagia 57142502 R13.12 Sensorineu ral hearing loss of bilateral ears 037353706 H90.3 Health Concerns Section Related Observation LastModified by Organization Detai ls LastModified Time None Recorded Concern Status LastModified by Organization Details LastModified Time None Recorded Payers Encounter Date Sequence Insurance Name Policy Number Policy Purcell Covered Member ID Purcell Member ID Guarantor Name 08/20/2025 2 [facility] (INDEMNITY) [id number] Mark Anthony Richards [place] [id number] Mark Anthony Richards [place] 08/20/2025 1 MEDICARE B-CO: [facility] Mark Anthony Richards [place] [id number] Mark Anthony Omalley Notes Date Note Type Note Provider Name and Address Organization Details Recorded Time 08/20/2025 text/html ROS as noted in the HPI Mark Anthony Omalley is an 84-year-old male who presents for evaluation of throat concerns amidst a complex medical history. Since May 27, he has undergone seven surgeries related to peripheral vascular disease, including a ouauc-ccz-akgk amputation of his right leg. 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 Unfortunately, the graft was rejected, leading to further complications, including a toe amputation in March. Despite these interventions, he has been dealing with persistent wound infections, including two deep wounds resulting from a fall. He is currently receiving wound care, with nurse visits twice weekly and additional care at the wound center. Hyperbaric oxygen therapy has not been utilized. The patient reports difficulty swallowing dry substances, which he states is not a new issue. He has a history of vocal cord and epiglottic fold cancer, both of which appear stable upon examination. He expresses frustration with his limited mobility and dependence on others for daily activities, although he is able to dress himself and take showers with difficulty. His home has been modified with a ramp and vehicle adaptations to accommodate his needs. MELVIN AKERS MD [address] [place] [address], [address], [place] - [facility] 08/20/2025 16:45:12
--- OUTSIDE RECORDS SUMMARY | 2025-09-24 08:35 | XMS_ITS | Clinical Summary ---
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 Assessment & Plan (05/24/2019 2:01 PM EDT): [...] routine labs prior to his leaving to [place]. Peripheral vascular disease 12/30/2017 Overview (07/28/2018): 09/2010 [...] EDT) SODIUM 145 133 - 146 mmol/L [facility] CHLORIDE 106 96 - 108 mmol/L [facility] POTASSIUM 4.9 3.3 - 5.1 mmol/L [facility] CO2 26 21 - 35 mmol/L [facility] BUN 31(H) 6 - 19 mg/dL [facility] CREATININE 1.60(H) 0.5 - 1.5 mg/dL [facility] GLUCOSE 134(H) 70 - 99 mg/dL [facility] CALCIUM 9.7 8.4 - 10.3 mg/dL [facility] EGFR 40(L) >59 mL/min/1.7 3m2 [facility] Comment:Estimated glomerular filtration rate calculated using the CKD-EPI equation. ANION GAP 18 10 - 20 mmol/L [facility] Blood 05/01/2020 3:53 PM EDT 05/01/2020 3:55 PM EDT us Jean Lucero MD LAB BLOOD BKR ORDERABLES Final Result [facility] [address] [place] [address] from Last 3 Months or Most Recently Relevant to Health Maintenance Insurance MEDICARE PART A & B [facility] MEDICARE SUPPLEMENT MEDICARE PART A & B [facility] [place] [phone] MEDICARE PART A & B [facility] MEDICARE SUPPLEMENT MEDICARE PART A & B MEDICARE SUPPLEMENT MEDICARE PART A & B [facility] MEDICARE SUPPLEMENT MEDICARE PART A & B [employer] MEDICARE SUPPLEMENT MEDICARE PART A & B [employer] MEDICARE SUPPLEMENT MEDICARE PART A & B [facility] MEDICARE SUPPLEMENT MEDICARE PART A & B [employer] [facility] MEDICARE SUPPLEMENT Care Teams Licensed Psychiatric Technician Relationship Specialty Start Date End Date Jaya Brock MD PCP - General 09/07/19 Additional Source Comments The information contained in this document represents components of the legal health record. It is not the complete legal health record.[facility]
--- OUTSIDE RECORDS SUMMARY | 2025-09-24 08:36 | XMS_ITS | Encounter Summary ---
Author Organization [facility] Address [address] [place] [address] Phone Care Team Providers Care Fire Extinguisher Repairer Inspector Name Role Phone Jaya Brock MD Primary Care Provider Encounter Details Date Type Department Care Team (Latest Contact Info) Description 12/11/2020 Ancillary Orders [facility] [address] 3rd Floor, [address] [place] [address] Kash Boles MD [address] [place] [phone] [email or web address] Sick sinus syndrome Social History Tobacco Use [...] for device: SSS. Examination: Device type: Pacemaker Legislative Director: [employer] Mode: DDDR LRL/UPL: 70/130 bpm Mode switches: 0 High V rates: 0 Thresholds, impedances, and sensing stable. Atrial pacin.6% Ventricular pacin.6% Battery: 2 yrs Additional comments: Device functioning appropriately. Normal device function. Patient to follow-up with Charbel Dai of [facility], will transfer [facility] when requested Report prepared by Saúl Mckeon RN us Kash Boles MD [facility] ORDER АННА Final Result documented in this encounter Visit Diagnoses Diagnosis Sick sinus syndrome Sinoatrial node dysfunction Sick sinus syndrome Sinoatrial node dysfunction documented in this encounter Care Teams Fire Extinguisher Repairer Inspector Relationship Specialty Start Date End Date Jaya Brock MD PCP - General 09/07/19 documented as of this encounter Additional Source Comments The information contained in this document represents components of the legal health record. It is not the complete legal health record.[facility]
--- OUTSIDE RECORDS SUMMARY | 2025-09-24 08:36 | XMS_ITS ---
Author Organization [address] [facility] Address [address] [place] [address] Phone Care Team Providers Care South Asian History Professor Name Role Phone Diana Corona Primary Care Provider [phone] Active Problems Problem Noted Date Diagnosed Date [...] bilateral radiofrequency ablation on 10/08/2022 at [facility] with some improvement lasting 1 month. 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
--- OUTSIDE RECORDS SUMMARY | 2025-09-24 08:36 | XMS_ITS | Encounter Summary ---
Author Organization [facility] [place] [address] Care Team Providers Care Enlisted Aircrew/Aerial Observer/Gunner Name Role Phone Diana Corona Primary Care Provider [phone] Encounter Details Date Type Department Care Team (Late st Contact Info) Description 04/23/2025 Lab Requisition [facility] - Main Lab [address] [facility] [place] [address] Rikki Rosen PA [address] [phone] Encounter for other general examination Social History [...] Description 10/05/2025 2:30 PM EST Clinical Support [facility] [address] [place] [phone] 10/12/2025 2:30 PM EST Clinical Support [facility] [address] [place] [phone] 10/19/2025 2:30 PM EST Clinical Support [facility] [address] [place] [phone] 10/26/2025 2:30 PM EST Clinical Support [facility] [address] [place] [phone] 11/02/2025 2:30 PM EST Clinical Support [facility] [address] [place] [address] 02/11/2026 1:30 PM EDT Ancillary Procedure [facility] - [address] [place] [address] 03/15/2026 1:00 PM EDT Office Visit Vascular Surgery - [place] [address] [place] [address] Andie Chua PA [address] [place] [phone] 06/06/2026 1:30 PM EDT Ancillary Procedure [facility] Cardiology [facility] [address] [place] [address] documented as of this encounter Procedures Procedure Name Priority Date/Time Associated Diagnosis Comments COMPLETE BLOOD COUNT Routine 04/23/2025 6:20 AM EDT Encounter for other general examination BASIC METABOLIC PANEL Routine 04/23/2025 6:20 AM EDT Encounter for other general examination documented in this encounter Results * (ABNORMAL) Complete blood count (04/23/2025 6:20 AM EDT) WBC 7.8 4.8 - 10.8 K/[facility] LAB HEMETOLOGY METHOD 04/23/2025 12:36 PM EDT [facility] RBC 2.30(L) 4.50 - 5.50 M/[facility] LAB HEMETOLOGY METHOD 04/23/2025 12:36 PM EDT [facility] Hemoglobin 7.7(L) 13.5 - 17.5 g/dL LAB HEMETOLOGY METHOD 04/23/2025 12:36 PM EDT [facility] Hematocrit 25.3(L) 42.0 - 54.0 % LAB HEMETOLOGY METHOD 04/23/2025 12:36 PM EDT [facility] MCV 108.6(H) 79.0 - 98.0 FL LAB HEMETOLOGY METHOD 04/23/2025 12:36 PM EDT [facility] MCH 33.0(H) 27.0 - 32.0 pcg LAB HEMETOLOGY METHOD 04/23/2025 12:36 PM EDT [facility] MCHC 30.4(L) 32.0 - 37.0 g/dL LAB HEMETOLOGY METHOD 04/23/2025 12:36 PM EDT [facility] RDW 17.2(H) 11.0 - 15.0 % LAB HEMETOLOGY METHOD 04/23/2025 12:36 PM EDT [facility] Platelets 360 130 - 400 K/mcL LAB HEMETOLOGY METHOD 04/23/2025 12:36 PM EDT [facility] MPV 9.8 7.0 - 11.0 FL LAB HEMETOLOGY METHOD 04/23/2025 12:36 PM EDT [facility] NRBC 0.0 <1.0 % LAB HEMETOLOGY METHOD 04/23/2025 12:36 PM EDT [facility] NRBC Absolute 0.00 <0.10 K/mcL LAB HEMETOLOGY METHOD 04/23/2025 12:36 PM EDT [facility] Blood Venous blood specimen / Unknown Venipuncture / Unknown 04/23/2025 6:20 AM EDT 04/23/2025 10:31 AM EDT us Rikki CHACON LAB BLOOD ORDERABLES Final R esult [facility] [address] [place] [address], * (ABNORMAL) Basic metabolic panel (04/23/2025 6:20 AM EDT) Sodium 138 133 - 145 mmol/L LAB CHEMISTRY METHOD 04/23/2025 2:56 PM [facility] Potassium 4.3 3.5 - 5.5 mmol/L LAB CHEMISTRY METHOD 04/23/2025 2:56 PM [facility] Chloride 105 96 - 110 mmol/L LAB CHEMISTRY METHOD 04/23/2025 2:56 PM [facility] CO2 25 21 - 32 mmol/L LAB CHEMISTRY METHOD 04/23/2025 2:56 PM [facility] Anion Gap 8 3 - 11 LAB CHEMISTRY METHOD 04/23/2025 2:56 PM [facility] Glucose 95 70 - 100 mg/dL LAB CHEMISTRY METHOD 04/23/2025 2:56 PM [facility] BUN 36(H) 5 - 25 mg/dL LAB CHEMISTRY METHOD 04/23/2025 2:56 PM [facility] Creatinine 1.68(H) 0.70 - 1.30 mg/dL LAB CHEMISTRY METHOD 04/23/2025 2:56 PM [facility] eGFR 40(L) >=60 mL/min/1. 73m2 LAB CHEMISTRY METHOD 04/23/2025 2:56 PM [facility] Comment:Calculation based on the Chronic Kidney Disease Epidemiology Collaboration (CKD-EPI) equation refit without adjustment for race. BUN/Creatinine Ratio 21.4 LAB CHEMISTRY METHOD 04/23/2025 2:56 PM [facility] Calcium 8.7 8.5 - 10.5 mg/dL LAB CHEMISTRY METHOD 04/23/2025 2:56 PM [facility] Blood Venous blood specimen / Unknown Venipuncture / Unknown 04/23/2025 6:20 AM EDT 04/23/2025 10:31 AM EDT us Rikki CHACON LAB BLOOD ORDERABLES Final R esult [facility] [address] [place] [address], documented in this encounter Visit Diagnoses Diagnosis [...] documented as of this encounter Care Teams Enlisted Aircrew/Aerial Observer/Gunner Relationship Specialty Start Date End Date Diana Corona PA [address] [place] [phone] PCP - General Physician Cost Recorder 04/10/25 documented as of this encounter
--- OUTSIDE RECORDS SUMMARY | 2025-09-24 08:36 | XMS_ITS | Encounter Summary ---
Author Organization [facility] [place] [address] Care Team Providers Care Senior Software Development Engineer Name Role Phone Diana Corona Primary Care Provider [phone] Encounter Details Date Type Department Care Team (Late st Contact Info) Description 04/24/2025 Lab Requisition [facility] - Main Lab [address] [facility] [place] [address] Reyna Ford PA [address] [place] [phone] Unspecified atrial fibrillation (CMS/HCC V24, CMS/HCC V28) [...] Description 10/05/2025 2:30 PM EST Clinical Support [facility] [address] [place] [phone] 10/12/2025 2:30 PM EST Clinical Support [facility] [address] [place] [phone] 10/19/2025 2:30 PM EST Clinical Support [facility] [address] [place] [phone] 10/26/2025 2:30 PM EST Clinical Support [facility] [address] [place] [address] [place] [phone] 11/02/2025 2:30 PM EST Clinical Support [facility] [address] [place] [phone] 02/11/2026 1:30 PM EDT Ancillary Procedure [facility] - [address] [place] [address] 03/15/2026 1:00 PM EDT Office Visit Vascular Surgery - [place] [address] [place] [address] Andie Chua PA [address] [place] [phone] 06/06/2026 1:30 PM EDT Ancillary Procedure [facility] Cardiology [facility] [address] [place] [address] documented as of this encounter Procedures Procedure Name Priority Date/Time Associated Diagnosis Comments VITAMIN B12 Routine 04/24/2025 6:02 AM EDT Unspecified atrial fibrillation (CMS/HCC V24, CMS/HCC V28) documented in this encounter Results * (ABNORMAL) Vitamin B12 (04/24/2025 6:02 AM EDT) Pathologist [facility] Vitamin B-12 1,498(H) 250 - 900 pcg/mL LAB CHEMISTRY METHOD 04/24/2025 12:00 PM EDT [facility] Blood Venous blood specimen / Unknown Venipuncture / Unknown 04/24/2025 6:02 AM EDT 04/24/2025 10:02 AM EDT us Reyna CHACON LAB BLOOD ORDERABLES Final Re sult [facility] [address] [place] [address], documented in this encounter Visit Diagnoses Diagnosis Unspecified atrial fibrillation (CMS/HCC V24, [facility] V28) Encounter for adjustment or management of cardiac device documented in this encounter Additional Health Concerns Infection Onset Date Last Indicated Resolved Time 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 05/21/2025 05/21/2025 05/24/2025 7:32 AM E DT Respiratory Rule-Out 05/23/2025 05/23/2025 025 11:46 PM EDT COVID-19 Rule-Out 05/23/2025 05/23/2025 05/23/2025 11:46 PM EDT documented as of this encounter Care Teams Senior Software Development Engineer Relationship Specialty Start Date End Date Diana Corona PA [address] [place] [phone] PCP - General Physician Patient Relations Liaison 04/10/25 documented as of this encounter
--- OUTSIDE RECORDS SUMMARY | 2025-09-24 08:36 | XMS_ITS | Encounter Summary ---
Author Organization [facility] [place] [address] Care Team Providers Care Lens And Frames Prescription Clerk Name Role Phone Diana Corona Primary Care Provider [phone] Encounter Details Date Type Department Care Team (Late st Contact Info) Description 04/19/[address] [facility] - Main Lab [address] [facility] [place] [address] Rikki Rosen PA [address] [phone] Encounter for other general examination Social History [...] Description 10/05/2025 2:30 PM EST Clinical Support [facility] [address] [place] [phone] 10/12/2025 2:30 PM EST Clinical Support [facility] [address] [place] [phone] 10/19/2025 2:30 PM EST Clinical Support [facility] [address] [place] [phone] 10/26/2025 2:30 PM EST Clinical Support [facility] [address] [place] [phone] 11/02/2025 2:30 PM EST Clinical [facility] [address] [place] [phone] 02/11/2026 1:30 PM EDT Ancillary Procedure [facility] - [address] [place] [address] 03/15/2026 1:00 PM EDT Office Visit Vascular Surgery - [place] [address] [place] [address] Andie Chua PA [address] [place] [phone] 06/06/2026 1:30 PM EDT Ancillary Procedure [facility] Cardiology [facility] [address] [place] [address] documented as of this encounter Procedures Procedure Name Priority Date/Time Associated Diagnosis Comments COMPLETE BLOOD COUNT Routine 04/19/2025 6:03 AM EDT Encounter for other general examination BASIC METABOLIC PANEL Routine 04/19/2025 6:03 AM EDT Encounter for other general examination documented in this encounter Results * (ABNORMAL) Complete blood count (04/19/2025 6:03 AM EDT) [facility] Signature WBC 7.5 4.8 - 10.8 K/[facility] LAB HEMETOLOGY METHOD 04/19/2025 10:14 AM EDT [facility] RBC 2.30(L) 4.50 - 5.50 M/[facility] LAB HEMETOLOGY METHOD 04/19/2025 10:14 AM EDT [facility] Hemoglobin 7.3(L) 13.5 - 17.5 g/dL LAB HEMETOLOGY METHOD 04/19/2025 10:14 AM EDT [facility] Hematocrit 23.7(L) 42.0 - 54.0 % LAB HEMETOLOGY METHOD 04/19/2025 10:14 AM EDT [facility] MCV 104.9(H) 79.0 - 98.0 FL LAB HEMETOLOGY METHOD 04/19/2025 10:14 AM EDT [facility] MCH 32.3(H) 27.0 - 32.0 pcg LAB HEMETOLOGY METHOD 04/19/2025 10:14 AM EDT [facility] MCHC 30.8(L) 32.0 - 37.0 g/dL LAB HEMETOLOGY METHOD 04/19/2025 10:14 AM EDT [facility] RDW 15.9(H) 11.0 - 15.0 % LAB HEMETOLOGY METHOD 04/19/2025 10:14 AM EDT [facility] Platelets 257 130 - 400 K/mcL LAB HEMETOLOGY METHOD 04/19/2025 10:14 AM EDT [facility] MPV 10.4 7.0 - 11.0 FL LAB HEMETOLOGY METHOD 04/19/2025 10:14 AM EDT [facility] NRBC 0.0 <1.0 % LAB [facility]OLOGY [facility] NRBC Absolute 0.00 <0.10 K/mcL LAB HEMETOLOGY METHOD 04/19/2025 10:14 AM EDT [facility] Blood Venous blood specimen / Unknown Venipuncture / Unknown 04/19/2025 6:03 AM EDT 04/19/2025 9:42 AM EDT us Rikki CHACON LAB BLOOD ORDERABLES Final R esult [facility] [address] [place] [address], * (ABNORMAL) Basic metabolic panel (04/19/2025 6:03 AM EDT) Sodium 138 133 - 145 mmol/L LAB CHEMISTRY METHOD 04/19/2025 10:54 AM [facility] Potassium 4.4 3.5 - 5.5 mmol/L LAB CHEMISTRY METHOD 04/19/2025 10:54 AM [facility] Chloride 105 96 - 110 mmol/L LAB CHEMISTRY METHOD 04/19/2025 10:54 AM [facility] CO2 28 21 - 32 mmol/L LAB CHEMISTRY METHOD 04/19/2025 10:54 AM [facility] Anion Gap 5 3 - 11 LAB CHEMISTRY METHOD 04/19/2025 10:54 AM [facility] Glucose 99 70 - 100 mg/dL LAB CHEMISTRY METHOD 04/19/2025 10:54 AM [facility] BUN 33(H) 5 - 25 mg/dL LAB CHEMISTRY METHOD 04/19/2025 10:54 AM [facility] Creatinine 1.54(H) 0.70 - 1.30 mg/dL LAB CHEMISTRY METHOD 04/19/2025 10:54 AM [facility] eGFR 44(L) >=60 mL/min/1. 73m2 LAB CHEMISTRY METHOD 04/19/2025 10:54 AM [facility] Comment:Calculation based on the Chronic Kidney Disease Epidemiology Collaboration (CKD-EPI) equation refit without adjustment for race. BUN/Creatinine Ratio 21.4 LAB CHEMISTRY METHOD 04/19/2025 10:54 AM [facility] Calcium 8.8 8.5 - 10.5 mg/dL LAB CHEMISTRY METHOD 04/19/2025 10:54 AM [facility] Blood Venous blood specimen / Unknown Venipuncture / Unknown 04/19/2025 6:03 AM EDT 04/19/2025 9:42 AM EDT us Rikki CHACON LAB BLOOD ORDERABLES Final R esult [facility] [address] [place] [address], documented in this encounter Visit Diagnoses Diagnosis [...] documented as of this encounter Care Teams Lens And Frames Prescription Clerk Relationship Specialty Start Date End Date Diana Corona PA [address] [place] [phone] PCP - General Physician [place] 04/10/25 documented as of this encounter
--- OUTSIDE RECORDS SUMMARY | 2025-09-24 08:36 | XMS_ITS | Encounter Summary ---
Author Organization [facility] [place] [address] Care Team Providers Care Globe Mounter Name Role Phone Diana Corona Primary Care Provider [phone] Encounter Details Date Type Department Care Team (Late st Contact Info) Description 04/22/2025 Lab Requisition [facility] - Main Lab 299 [facility] [place] [address] Frances Meléndez PA [address] [place] [address] Encounter for other general examination [...] Description 10/05/2025 2:30 PM EST Clinical Support [facility] [address] [place] [phone] 10/12/2025 2:30 PM EST Clinical Support [facility] [address] [place] [phone] 10/19/2025 2:30 PM EST Clinical Support [facility] [address] [place] [phone] 10/26/2025 2:30 PM EST Clinical Support [facility] [address] [place] [phone] 11/02/2025 2:30 PM EST Clinical Support [facility] [address] [place] [address] 02/11/2026 1:30 PM EDT Ancillary Procedure [facility] Associates - [address] [place] [address] 03/15/2026 1:00 PM EDT Office Visit Vascular Surgery - [place] [address] [place] [address] Andie Chua PA [address] [place] [phone] 06/06/2026 1:30 PM EDT Ancillary Procedure [facility] Cardiology [facility] [address] [place] [address] documented as of this encounter Procedures Procedure Name Priority Date/Time Associated Diagnosis Comments COMPLETE BLOOD COUNT Routine 04/22/2025 5:53 AM EDT Encounter for other general examination documented in this encounter Results * (ABNORMAL) Complete blood count (04/22/2025 5:53 AM EDT) [facility] WBC 7.2 4.8 - 10.8 K/mcL LAB HEMETOLOGY METHOD 04/22/2025 9:01 AM EDT [facility] RBC 2.30(L) 4.50 - 5.50 M/mcL LAB HEMETOLOGY METHOD 04/22/2025 9:01 AM EDT [facility] Hemoglobin 7.3(L) 13.5 - 17.5 g/dL LAB HEMETOLOGY METHOD 04/22/2025 9:01 AM EDT [facility] Hematocrit 24.2(L) 42.0 - 54.0 % LAB HEMETOLOGY METHOD 04/22/2025 9:01 AM EDT [facility] MCV 106.6(H) 79.0 - 98.0 FL LAB HEMETOLOGY METHOD 04/22/2025 9:01 AM EDT [facility] MCH 32.2(H) 27.0 - 32.0 pcg LAB HEMETOLOGY METHOD 04/22/2025 9:01 AM EDT [facility] MCHC 30.2(L) 32.0 - 37.0 g/dL LAB HEMETOLOGY METHOD 04/22/2025 9:01 AM EDT [facility] RDW 16.8(H) 11.0 - 15.0 % LAB HEMETOLOGY METHOD 04/22/2025 9:01 AM EDT [facility] Platelets 339 130 - 400 K/mcL LAB HEMETOLOGY METHOD 04/22/2025 9:01 AM EDT [facility] MPV 10.0 7.0 - 11.0 FL LAB HEMETOLOGY METHOD 04/22/2025 9:01 AM EDT [facility] NRBC 0.0 <1.0 % LAB HEMETOLOGY METHOD 04/22/2025 9:01 AM EDT [facility] NRBC Absolute 0.00 <0.10 K/mcL LAB HEMETOLOGY METHOD 04/22/2025 9:01 AM T [facility] Blood Venous blood specimen / Unknown Venipuncture / Unknown 04/22/2025 5:53 AM EDT 04/22/2025 8:40 AM EDT us Frances CHACON LAB BLOOD ORDERABLES Final Resul t [facility] [address] [place] [address], documented in this encounter Visit Diagnoses Diagnosis [...] documented as of this encounter Care Teams Globe Mounter Relationship Specialty Start Date End Date Diana Corona PA [address] [place] [phone] PCP - General Physician Customer Counter Representative 04/10/25 documented as of this encounter
--- OUTSIDE RECORDS SUMMARY | 2025-09-24 08:36 | XMS_ITS | Data Portability ---
Author Organization [place] - [facility] Allergy Address [address] [address] Care Team Providers Care Cardiology Manager Name Role Phone CHRISTIE CAR Referring [...] Otherwise stable.. follow up in 4 month [facility] Not available 09/21/2024 11:35:20 03/22/2025 03/22/2025 Patient [...] in 5 month [facility] Not available 03/22/2025 13:16:14 08/20/2025 08/20/2025 Patient with history of squamous [...] with a history of peripheral vascular disease, ggfem-dky-kvax amputation, and complications from vascular bypass surgery, [...] alleviate dryness. No evidence of recurrent carcinoma [email or web address] Not available 08/20/2025 16:44:43 Plan of Treatment Reminders Order Date Submit Date Provider Last Modified By Organization Details Last Modified Time Details Appointments Establish ed 30 2025 01:00P M MELVIN GONZALEZ MD Not available Not available Not available Lab unlisted lab - TSH w/reflex 2023 024 BROOKS [facility] (Centralized Electronic Ordering - All Locations), Patient Can Go To The Location Of Their Choice, [id number] 06/02/2024 21:10:25 Referral None recorded. Procedures None recorded. Surgeries None recorded. Imaging None recorded. Medication Orders None recorded. Patient TargetsNo targets recorded. Patient Instructions Encounter Date Encounter Id Patient Instructions Last Modified By Organization Details Last Modified Time 08/20/2025 [id number] - Continue wound care management with nurse visits twice weekly and appointments at the wound center. - Maintain home modifications, including ramp and vehicle adaptations, to support mobility. - Consider using throat spray to alleviate dryness when swallowing. - Follow up as directed for monitoring wound healing and addressing further complications. [email or web address] Not available 08/20/2025 13:14:02 Please note: Parts of this encounter note have been generated by AI based on audio conversation. Patient consent was required prior to utilizing this technology. Content review was required prior to finalizing the note. [email or web address] Not available 08/20/2025 13:14:02 Reason for Referral None Reported. Results Created Date Observation Date Name Description Value Unit Range Abnormal Flag Note LastModifiedBy Organization Detail LastModifiedTime 05/31/2005/31/2024 TSH W/REF LOLIS TSH 4.510 uIU/m L 0.450- 4.500 above high normal Not Available [facility] ([facility]) [address] [place], [address], 06/02/2024 21:10:25 05/31/2006/02/2024 TSH W/REF LOLIS triiodothyro nine (T3), free 2.6 pg/mL 2.0-4. 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 of antithrom botics/an tiplatele ts; Note: Date Diagnosed : 04/23/2017 12:51 PM (Z79.02) Not Available [facility] 4 02:46:28 Bleeding from nose 238448004 Active 2017 Epistaxis ; Note: Date Diagnosed : 04/23/2017 12:51 PM (R04.0) Not Available [facility] 4 02:46:21 Dysphonia 79793042 Active 2019 Hoarsenes s; Note: Date Diagnosed : 11/15/2019 1:00 PM (R49.0) Not Available [facility] 4 02:46:18 Disorder of vocal cord 29361129 Active 2019 Other diseases of vocal cords; Note: Date Diagnosed : 11/15/2019 1:00 PM (J38.3) Not Available [facility] 4 02:46:20 Neoplasm of uncertain behavior of larynx 83421716 Active 2019 Neoplasm of uncertain behavior of larynx; Note: Date Diagnosed : 12/19/2019 10:13 AM (D38.0) Not Available [facility] 4 02:46:26 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; Note: Date Diagnosed : 03/04/2020 2:33 PM (C32.0) Not Available [facility] 4 02:46:28 Follow-up visit Active 2019 Encounter for follow-up examinati on after completed treatment for malignant neoplasm; Note: Date Diagnosed : 04/24/2020 8:56 AM (Z08) Not Available [facility] 4 02:46:22 Lymphedem a 835221163 Active 2019 Lymphedem a, not elsewhere classifie d; Note: Date Diagnosed : 04/24/2020 9:00 AM (I89.0) Not Available [facility] 4 02:46:21 History of malignant neoplasm of larynx 243079852 Active 2020 Personal history of malignant neoplasm of larynx; Note: Date Diagnosed : 12/12/2020 12:47 PM (Z85.21) Not Available [facility] 4 02:46:18 Vasomotor rhinitis 3247426 Active 2020 Vasomotor rhinitis; Note: Date Diagnosed : 01/22/2021 11:42 AM (J30.0) Not Available [facility] 4 02:46:22 Pharyngea l dysphagia 41116728737 105 Active 2021 Dysphagia , pharyngea l phase; Note: Date Diagnosed : 03/20/2022 11:46 AM (R13.13) Not Available [facility] 4 02:46:23 Chronic cough 66460065 Active 2021 Chronic cough; Note: Changed from R05 to R05.3 ( 2 11:46 AM) , Date Diagnosed : 03/20/2022 11:46 AM (R05) Not Available [facility] 4 02:46:19 Finding of resonance of voice 861021202 Active 2021 Other voice and resonance disorders ; Note: Date Diagnosed : 03/18/2022 5:46 PM (R49.8) Not Available [facility] 4 02:46:17 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,[address], [place], [address] , [facility] [place] 4 18:43:13 Edema of larynx following radiother apy 183098634 Active 2023 MELVIN QUINN MD [address] [facility] [place],[address], [place], [address] , [place] - [facility] [place] 4 10:25:49 Abnormal auditory perceptio n 71287917 Active 2023 MELVIN QUINN MD [address] [facility] [address] [facility] [facility] [place] [facility], [place], [address] , [facility] - [facility] 4 10:26:03 Bilateral tinnitus 49019958482 02 Active 2023 MELVIN QUINN MD [address] [facility] [address] [facility] [place] [facility], [place], [address] , [facility] - [facility] 4 10:26:07 Oropharyn geal dysphagia 03933906 Active 2023 MELVIN QUINN MD [address] [facility],[place] [address], [place], [address] , [facility] - [facility] 4 10:26:16 Sensorine ural hearing loss of bilateral ears 118392644 Active 2023 COLIN JIMENEZ MA, CCC-A [address] [facility] [address] [facility] [facility] [place] [address], [place], [address] , [facility] - [facility] 4 11:01:59 Problem Notes None recorded. Procedures Surgical History Date Name Laterality Status Provider Name and Address Organization Details Recorded Time 08/20/20 25 Fiberoptic Laryngoscopy (Comprehensive) completed MELVIN AKERS MD [address] [facility] [place] [address], [place], [address], [facility] - [facility] 08/20/2025 13:13:11 03/22/20 25 Fiberoptic Laryngoscopy (Comprehensive) completed MELVIN AKERS MD [address] [facility] [address] [facility] [place] [facility], [place], [address], [facility] - [facility] 03/22/2025 13:14:37 09/21/20 24 Fiberoptic Laryngoscopy (Comprehensive) completed MELVIN AKERS MD [address] [facility] [address] [facility] [place],[address] [place] [address], [address], [facility] - [facility] 09/21/2024 11:34:17 05/31/20 24 Fiberoptic Laryngoscopy (Comprehensive) completed MELVIN AKERS MD [address] [facility] [address] [facility] [place],[address] [place] [address], [address], [place] [facility] [place] 05/30/2024 10:05:32 02/16/20 24 Comp Audio with Tymps - 44334 & 11003 completed COLIN JIMENEZ MA, CCC-A [address] [place] [address], [address], [place] [facility] [place] 02/16/2024 11:01:33 02/16/20 24 Fiberoptic Laryngoscopy (Comprehensive) completed MELVIN AKERS MD [address] [facility] [address] [facility] [place],[address] [address] [place] [address], [address], [place] [facility] [place] 02/16/2024 10:25:42 02/24/20 23 Laryngoscopy with biopsy completed MEVLIN AKERS MD [address] [facility] [address] [facility] [place],[address] [place] [address], [address], [place] [facility] 02/14/2024 18:47:38 12/19/19 20 Laryngoscopy for treatment completed MELVIN AKERS MD [address] [facility] [address] 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 [place],[address] [place] [address], [address], [place] [facility] 08/20/2025 13:08:51 insertion of stent into aorta completed MELVIN AKERS MD [address] [facility] [address] [facility] [place],[address] [place] [address], [address], [facility] - [facility] 09/21/2024 11:35:38 peripheral arterial bypass completed MELVIN AKERS MD [address] [address] [facility] [place],[address] [place] [address], [address], [place] [facility] 09/21/2024 11:35:45 Imaging Results None recorded. Procedure Notes None recorded. Medical Equipment None Reported. Allergies Allergen ID Allergen Name Allergen Category Reaction Reaction Severity Criticality Documentation Date Start Date Code Code System Note Provider Name and Address Organization Details Recorded Time 689787 sulfameth oxazole / trimethop rim medicatio n Not available Not available Not available 08/20/2025 60122 RxNorm Not Available [employer] - prod 5 12:36:50 080117 Iodinated contrast media (substanc e) medicatio n Not available Not available Not available 08/20/20252019 24682 2004 SNOMED Not Available [facility] [employer] - prod 5 12:36:59 165113 tetracycl ine medicatio n Not available Not available Not available 08/20/2025 97243 RxNorm Not Available [facility] [employer] - prod 5 12:37:00 561582 Substance with sulfonami de structure and antibacte rial mechanism of action (substanc e) medicatio n rash Not available [facility] 08/20/20252023 76808 8003 SNOMED Rash/ derma titis Not Available [employer] - prod 5 12:37:46 66860 Bactrim medicatio n other Not available Not available 02/15/2024 71952 9 RxNorm React ion: unkno wn, unspe cifie d;; Not Available [facility] 4 01:04:16 48295 Substance with tetracycl ine structure (substanc e) medicatio n other Not available Not available 02/15/2024 39004 8001 SNOMED React ion: unkno wn, unspe cifie d;; Not Available [facility] 4 01:04:19 Medications Name Sig Start Date Stop Date Status Note LastModified by Organization Details LastModified Time Santyl 250 unit/gram topical ointment APPLY TOPICALL Y 1 (ONE) TIME EACH DAY. APPLY NICKEL THICKNES S LAYER TO RIGHT KNEE WOUND DAILY 08/20 completed Not Available Not Available Not Available metformin 500 mg tablet 04/23 completed Medicati on ID: [id number] D uration Value: 90 Brand Name: metformi [...] mg tablet 12/18 completed Medicati on ID: [id number] B rand Name: gabapent in Send Method: [...] 24 hr 04/23 completed Medicati on ID: [id number] D uration Value: 30 Brand Name: oxybutyn in chloride Send Method: E-Prescr ibed Sub s Allowed: subs OK Medic ationGen ericName : oxybutyn in chloride Not Available Not Available Not Available atenolol 100 mg tablet 03/22 completed Medicati on ID: 051323 B rand Name: atenolol Send Method: E-Prescr ibed Sub s Allowed: subs OK Medic ationGen ericName : atenolol Not Available Not Available Not Available glipizide ER 10 mg tablet, extended release 24 hr 04/23 completed Medicati on ID: [id number] D uration Value: 90 Brand Name: glipizid [...] mg capsule 12/18 completed Medicati on ID: [id number] B rand Name: gabapent in Send Method: E-Prescr ibed Sub s Allowed: subs OK Medic ationGen ericName : gabapent in Not Available Not Available Not Available Zyrtec 10 mg tablet Take 1 tablet by mouth as directed 03/22 completed Medicati on ID: [id number] D uration Value: 1 Brand Name: Zyrtec S end Method: E-Prescr ibed Sub s Allowed: subs OK Speci al Instruct ion: take one tablet by mouth [address] Scan Med icationG enericNa me: Zyrtec Not Available Not Available Not Available clopidogr el 75 mg tablet 12/17 completed Medicati on ID: [id number] D uration Value: 90 Brand Name: clopidog rel Send Method: E-Prescr ibed Sub s Allowed: subs OK Medic ationGen ericName : clopidog rel Not Available Not Available Not Available amlodipin e 5 mg tablet 04/23 completed Medicati on ID: 361129 D uration Value: 90 Brand Name: amlodipi [...] mg tablet 04/23 completed Medicati on ID: [id number] D uration Value: 90 Brand Name: tramadol [...] mg tablet 12/18 completed Medicati on ID: [id number] B rand Name: predniso ne Send Method: [...] mg tablet 04/23 completed Medicati on ID: [id number] D uration Value: 90 Brand Name: allopuri [...] nasal spray 12/18 completed Medicati on ID: 856168 B rand Name: ipratrop ium bromide Send [...] by mouth 03/22 completed Medicati on ID: [id number] D uration Value: 1 Prescri bed By Name: RODERICK Chacon nd Name: Benadryl Allergy Send Method: E-Prescr ibed Sub s Allowed: subs OK Speci al Instruct ion: take 2 tablets [address] scan Med icationG enericNa me: Benadryl Allergy Not Available Not Available Not Available olmesarta n 5 mg tablet 12/18 completed Medicati on ID: [id number] B rand Name: olmesart an Send Method: E-Prescr ibed Sub s Allowed: subs OK Medic ationGen ericName : olmesart an Not Available Not Available Not Available olmesarta n 20 mg tablet 03/22 completed Medicati on ID: [id number] B rand Name: olmesart an Send Method: [...] mg tablet 04/23 completed Medicati on ID: [id number] D uration Value: 90 Brand Name: escitalo pram oxalate Send Method: E-Prescr ibed Sub s Allowed: subs OK Medic ationGen ericName : escitalo pram oxalate Not Available Not Available Not Available Novolog FlexPen U-100 Insulin aspart 100 unit/mL (3 mL) subcutane ous 03/22 completed Medicati on ID: [id number] B rand Name: Novolog Flexpen U-100 Insulin Send Method: E-Prescr ibed Sub s Allowed: subs OK Medic ationGen ericName : Novolog Flexpen U-100 Insulin Not Available Not Available Not Available duloxetin e 60 mg capsule,d elayed release TAKE 1 CAPSULE BY MOUTH EVERY DAY active Not Available Not Available No t Available pregabali n 150 mg capsule 03/22 completed Medicati on ID: [id number] B rand Name: pregabal in Send Method: E-Prescr ibed Sub s Allowed: subs OK Medic ationGen ericName : pregabal in Not Available Not Available Not Available Lyrica 75 mg capsule 04/23 completed Medicati on ID: [id number] D uration Value: 90 Brand Name: Lyrica [...] pen injector 03/22 completed Medicati on ID: [id number] B rand Name: Anuradhait y Send Method: [...] x 1/4 12/18 completed Medicati on ID: [id number] B rand Name: BD Ultra-Fi ne Micro Pen Needle S end Method: E-Prescr ibed Sub s Allowed: subs OK Medic ationGen ericName : BD Ultra-Fi ne Micro Pen Needle Not Available Not Available Not Available Ozempic 0.25 mg or 0.5 mg (2 mg/1.5 mL) subcutane ous pen injector 03/22 completed Medicati on ID: [id number] B rand Name: Ozempic Send Method: E-Prescr [...] Address Organization Details Last Updated DateTime 02/16/2024 59756.29 g 30.1 kg/m2 172.72 cm Malik Joiner PA - [facility] 02/16/2024 10:11:40 Date Recorded Body height Body mass index (BMI) Body weight Provider Name and Address Organization Details Last Updated DateTime 03/22/2025 172.72 cm 28.3 kg/m2 24260.18 g Viri Leonard PA - [facility] 03/22/2025 12:59:01 Date Recorded Body height Body mass index (BMI) Body weight Provider Name and Address Organization Details Last Updated DateTime 05/31/2024 172.72 cm 30.6 kg/m2 36331.07 g Malik Joiner PA - [facility] 05/31/2024 09:57:53 Date Recorded Body height Body mass index (BMI) Body weight Systolic And Diastolic Provider Name and Address Organization Details Last Updated DateTime 08/20/2025 172.72 cm 27.4 kg/m2 81986.63 g 132/64 mm[Hg] Viri Leonard PA - [facility] 08/20/2025 12:51:36 Date Recorded Body height Body mass index (BMI) Body weight Provider Name and Address Organization Details Last Updated DateTime 09/21/2024 172.72 cm 30.4 kg/m2 03894.47 g Malik Joiner [facility] 09/21/2024 11:15:52 Social History None recorded. Functional Status Question Answer Note LastModified by Organizat ion Details LastModified Time Do you use any illicit or recreational drugs? No [email or web address] Information not available 02/16/2024 Do you or have you ever used any other forms of tobacco or nicotine? No Information not available 02/16/2024 What is your level of alcohol consumption? None Information not available 02/16/2024 Mental Status None recorded. Family History Nothing Reported. Medical History Condition Response Diabetes Y Hyperlipidemia Y Hypertension Y High Cholesterol Y Past Encounters Encounter ID Performer Location Encounter Start Date Encounter Closed Date Diagnosis/Indication Diagnosis SNOMED-CT Code Diagnosis ICD10 Code Diagnosis IMO Codes Diagnosis Note [id number] MELVIN QUINN MD [facility] [address] [address] 02/16/2024 10:01:00 02/16/2024 11:03:28 Abnormal auditory perception 19439071 H93.299 Bilateral tinnitus 01529 35990 102 H93.13 Oropharyng eal dysphagia 45321841 R13.12 Sensorineu ral hearing loss of bilateral ears 424659831 H90.3 Normal hearing thru 1000Hz sloping to a mild to to severe sensorineu ral hearing loss with excellent speech discrimina tion ability for both ears.Type A tympanogra ms. Declines amplificat ion History of malignant neoplasm of larynx 418924233 Z85.21 Chronic hoarseness 28867 65235 105 R49.0 Edema of l arynx following radiotherapy 842640731 J38.4 [id number] COLIN JIMENEZ MA, CCC-A [facility] [address] [address] 02/16/2024 10:57:00 02/17/2024 22:38:16 Sensorineural hearing loss of bilateral ears 862151044 H90.3 Normal hearing thru 1000Hz sloping to a mild to to severe sensorineu ral hearing loss with excellent speech discrimina tion ability for both ears.Type A tympanogra ms. Bilateral tinnitus 11095 05229 102 H93.13 [id number] MELVIN QUINN MD [facility] [address] [address] 05/31/2024 09:51:42 05/31/2024 10:31:47 History of malignant neoplasm of larynx 014770717 Z85.21 Chronic hoarseness 90326 19938 105 R49.0 Edema of l arynx following radiotherapy 610260512 J38.4 Bilateral tinnitus 53744 83539 102 H93.13 Oropharyng eal dysphagia 88029934 R13.12 Sensorineu ral hearing loss of bilateral ears 788647171 H90.3 [id number] MELVIN QUINN MD [facility] [address] [address] 09/21/2024 10:58:20 09/21/2024 11:41:36 History of malignant neoplasm of larynx 563003278 Z85.21 Chronic hoarseness 27451 53269 105 R49.0 Edema of l arynx following radiotherapy 363519425 J38.4 Bilateral tinnitus 45095 81716 102 H93.13 Oropharyng eal dysphagia 36286173 R13.12 Sensorineu ral hearing loss of bilateral ears 756616272 H90.3 [id number] MELVIN QUINN MD [facility] [address] [address] 03/22/2025 12:49:50 03/22/2025 13:19:06 History of malignant neoplasm of larynx 610990248 Z85.21 Chronic hoarseness 66230 28677 105 R49.0 Edema of l arynx following radiotherapy 159788458 J38.4 Bilateral tinnitus 49912 38598 102 H93.13 Oropharyng eal dysphagia 10074219 R13.12 Sensorineu ral hearing loss of bilateral ears 728316377 H90.3 [id number] MELVIN QUINN MD [facility] [address] [address] 08/20/2025 12:35:40 08/20/2025 13:18:20 History of malignant neoplasm of larynx 439673357 Z85.21 Chronic hoarseness 97449 45389 105 R49.0 Edema of l arynx following radiotherapy 309163436 J38.4 Bilateral tinnitus 09672 57225 102 H93.13 Oropharyng eal dysphagia 71669374 R13.12 Sensorineu ral hearing loss of bilateral ears 754440985 H90.3 Health Concerns Section Related Observation LastModified by Organization Detai ls LastModified Time None Recorded Concern Status LastModified by Organization Details LastModified Time None Recorded Advance Directives Directive None Recorded Payers Insurance Date Sequence Insurance Name Policy Number Policy Purcell Covered Member ID Purcell Member ID Guarantor Name 08/20/2025 2 [facility] (INDEMNITY[facility] [id number] Mark Anthony Omalley [id number] Mark Anthony Omalley 08/20/2025 1 MEDICARE B-[place]: [facility] [place] [facility] Mark Anthony Omalley [id number] Mark Anthony Richards Emilianoade Notes Date Note Type Note Provider Name and Address Organization Details Recorded Time 02/16/2024 text/html Hearing Loss - AdultReported by PatientHx of bilateral tinnitus, hearing loss and noise exposure. notes he has difficulty hearing herROS as noted in the [facility] Patient with history of squamous cell carcinoma [...] use water to swallow MELVIN AKERS MD [address] [place] [address], [address], [facility] - [facility] 02/16/2024 12:28:07 02/16/2024 text/html tinnitus COLIN JIMENEZ MA, CCC-A [address] [place] [address], [address], [facility] 02/16/2024 11:07:36 05/31/2024 text/html Hearing Loss - AdultReported by PatientHx of bilateral tinnitus, hearing loss and noise exposure. notes he has difficulty hearing her--audio last visitROS as noted in the HPI Patient with [...] peripheral bypass tomorrow. MELVIN AKERS MD [address] [facility],[address], [address], [facility] 05/31/2024 10:20:02 09/21/2024 text/html Hearing Loss - AdultReported by PatientHx of bilateral tinnitus, hearing loss and noise exposure. notes he has difficulty hearing her--audio last visitROS as noted in the [facility] Patient with history of squamous cell carcinoma [...] peripheral bypass tomorrow. MELVIN AKERS MD [address] [facility] [address], [place], [address], [facility] 09/21/2024 13:02:16 03/22/2025 text/html ROS as noted in the [facility] Patient with history of squamous cell carcinoma [...] swallowing. No otalgia MELVIN AKERS MD [address] [facility],[place] [address], [place], [address], [place] - [facility] 03/22/2025 15:19:34 08/20/2025 text/html ROS as noted in the HPI Mark Anthony Omalley is an 84-year-old male who presents for evaluation of throat concerns amidst a complex medical history. 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 He has [...] to accommodate his needs. MELVIN AKERS MD [address] [facility] [address], [place], [address], [place] - [facility] 08/20/2025 16:45:12
--- OUTSIDE RECORDS SUMMARY | 2025-09-24 08:36 | XMS_ITS | Clinical Summary ---
Author Organization [address] [facility] Address [address] [place] [address] Phone Care Team Providers Care Watch Assembly Instructor Name Role Phone Diana Corona Primary Care Provider [phone] Allergies Active Allergy Reactions Criticality Noted Date [...] flash glucose scanning reader (FreeStyle Vivek 2 [place]) misc 1 Product by Does not [...] mg immediate release tabletIndications :Amputation stump infection ([facility] V24, [facility] V28) Take 2 tablets (10 mg total) by mouth every 6 (six) hours if needed for severe pain. 10mg every 6 hours for severe pain as needed, in couple days, reduce to 5mg every 6 hours as needed for pain. Max Daily Amount: 40 mg 5 Active predniSONE (DELTASONE) 50 mg tabletIndications :PAD (peripheral artery disease) ([facility] V24),Status post endovascular aneurysm repair (EVAR) Take one tablet 13hours prior to Cat Scan Contrast, then take one tablet 7 hours prior to contrast, then take one tablet 1 hour priot to contrast. 3 each 5 Active diphenhydrAMINE (BENADRYL) 50 mg tabletIndications :PAD (peripheral artery disease) ([facility] V24),Status post endovascular aneurysm repair (EVAR) Take [...] underwent bilateral radiofrequency ablation on 10/08/2022 at [facility] with some improvement lasting 1 month. [...] hyperplasia) 08/09/2020 Coronary artery disease invo [place] heart without angina pectoris 08/09/2020 Overview (08/29/2024): [...] lower extremity 01/08/2025 01/21/2025 Epistaxis 10/28/2024 10/28/2024 Encounters Date Type Department Care Team Description 09/21/2025 2:30 PM EST Office Visit [facility] [address] [place] [phone] Bharathi Atkinson PA Dehiscence of operative wound, subsequent encounter (Primary Dx); Non-healing wound of amputation stump ([facility] V24, [facility] V28); Non-pressure chronic ulcer of other part of right lower leg with fat layer exposed (CMS/[facility] V24, CMS/HCC V28) 09/14/2025 2:30 PM EST Office Visit 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 without evidence of necrosis ([facility] V24, CMS/HCC V28); Non-pressure chronic ulcer right lower leg, limited to breakdown skin ([facility] V24, CMS/HCC V28) 09/13/2025 1:00 PM EST Office Visit [facility] [place] [address] [place] [phone] Andie Chua PA PAD (peripheral artery disease) ([facility] V24) (Primary Dx); Status post endovascular aneurysm repair (EVAR); S/P BKA (below knee amputation) unilateral, right ([facility] V24, CMS/HCC V28); Non-healing wound of amputation stump (CMS/HCC V24, CMS/HCC V28) 09/13/2025 Results Follow-Up [facility] [place] [address] [place] [phone] Andie Chua PA 09/07/2025 3:20 PM EST - 09/07/2025 11:59 PM EST Hospital Encounter [facility] CT Scan [address] [place] [phone] Discharge Disposition: Home or Self Care 09/07/2025 2:30 PM EST Office Visit 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 [address] [place] [phone] Dereje Goins MD Surgical wound dehiscence, initial encounter (Primary Dx); Non-healing wound of amputation stump ([facility] V24, [facility] V28); Non-pressure chronic ulcer of right lower leg with fat layer exposed ([facility] V24, [facility] V28); 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 without evidence of necrosis ([facility] V24, [facility] V28) 07/20/2025 10:00 AM EDT Office Visit Vascular Surgery [address] [phone] Andie Chua PA S/P BKA (below knee amputation) unilateral, right ([facility] V24, [facility] V28) (Primary Dx); Non-healing wound of amputation stump ([facility] V24[facility] V28); Infrarenal abdominal aortic aneurysm (AAA) without rupture ([facility] V24) 07/04/2025 4:00 PM EDT Office Visit V[facility] Surgery [address] [phone] Kinsey Boykin MD S/P BKA (below knee amputation) unilateral, right ([facility] V24, [facility] V28) (Primary Dx); PAD (peripheral artery disease) ([facility] V24) 06/27/2025 Telephone V[facility] Surgery [address] [phone] Ahmet Banks MD from Last 3 Months Immunizations Immunization Administration [...] Site/Laterality Comments KNEE ARTHROSCOPY 2009 Right PROCEDURE: VT ARTHROSCOPY KNEE DIAGNOSTIC W/WO SYNOVIAL BX SPX; COMMENT: Meniscus TURP / TRANSURETHRAL INCISIO N / DRAINAGE PROSTATE 2004 PROCEDURE: HISTORICAL TURP OTHER SURGICAL HISTORY PROCEDURE: VT DUP-SCAN LXTR ART/ARTL BPGS UNI/LMTD STUDY; COMMENT: Angioplasty and stenting of the left leg PACEMAKER IMPLANT PROCEDURE: HISTORICAL PACEMAKER COLONOSCOPY 2011 PROCEDURE: HISTORICAL COLONOSCOPY OTHER SURGICAL HISTORY PROCEDURE: VT BIOPSY OROPHARYNX; COMMENT: Throat cancer had radiation x6 weeks [facility] EYE SURGERY PROCEDURE: HISTORICAL EYE SURGERY; COMMENT: [place] TONSILLECTOMY PROCEDURE: HISTORICAL TONSILLECTOMY OTHER SURGICAL HISTORY PROCEDURE: ---- HEMORRHOIDS ---- HERNIA REPAIR Bilateral PROCEDURE: REPAIR INGUINAL HERNIA CORONARY ARTERY BYPASS GRAFT 1996 PROCEDURE: HISTORICAL CABG; COMMENT: x4 NECK SURGERY PROCEDURE: HISTORICAL NECK SURGERY CARPAL TUNNEL RELEASE Right PROCEDURE: VT NEUROPLASTY &/TRANSPOS MEDIAN NRV CARPAL TUNNE; COMMENT: dr. cazares BACK SURGERY 10/08/2022 Bilateral PROCEDURE: HISTORICAL BACK SURGERY; COMMENT: Bilateral L3, L4 and L5 radiofrequency neurotomy Dr. Sahu OTHER SURGICAL HISTORY 06/15/2023 PROCEDURE: VT SLCTV CATHJ 3RD+ ORD SLCTV ABDL PEL/LXTR BRNCH OTHER SURGICAL HISTORY 06/15/2023 PROCEDURE: VT SLCTV CATHJ EA 2ND+ ORD ABDL PEL/LXTR ART BRNCH OTHER SURGICAL HISTORY 06/15/2023 PROCEDURE: X-RAY EXAM OF ARM/LEG ARTERY OTHER SURGICAL HISTORY 06/15/2023 PROCEDURE: ULTRASOUND GUIDANCE FOR VASCULAR AC OTHER SURGICAL HISTORY 06/01/2024 PROCEDURE: VT EVASC RPR DPLMNT [id number] NDGFT OTHER SURGICAL HISTORY 06/01/2024 PROCEDURE: VT OPN ILIAC ART EXPOS PROSTH/ILIAC OCCLS EVASC UNI OTHER SURGICAL HISTORY 06/01/2024 PROCEDURE: VT PERQ ACCESS & CLOSURE FEM ART FOR DELIVERY NDGFT OTHER SURGICAL HISTORY 06/01/2024 PROCEDURE: VT REVASC INTRAVASC LITHOTRIPSY OTHER SURGICAL HISTORY 06/28/2024 Left PROCEDURE: VT BYP OTH/THN VEIN FEM-ANT TIBL PST TIBL/PRONEAL Medical History Medical History Date Comments 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 ([facility] V24, [facility] V28) 08/09/2020 DX:Type 2 diabetes mellitus with neurological manifestation ([facility]) CKD (chronic kidney disease) stage 3, GFR 30-59 ml/min ([facility] V24, [facility] V28) 11/06/2020 DX:CKD (chronic kidney disea se) stage 3, GFR 30-59 ml/min ([facility]) Type 2 diabetes mellitus wit h renal manifestations ([facility] V24, [facility] V28) 08/09/2020 DX:Type 2 diabetes mellitus with renal manifestations ([facility]) CAD (coronary artery disease) 08/09/2020 DX :CAD (coronary artery disease); COMMENT: Multiple stenting procedures x 5. Pacemaker 08/09/2020 DX:Pacemaker ST elevation myocardial infa rction (STEMI) ([facility] V24, [facility] V28) 08/09/2020 DX:ST elevation hesham cardial infarction (STEMI) ([facility]) Throat cancer ([facility] V24, [facility] V28) 08/09/2020 DX:Throat cancer ([facility]); COMM ENT: 2020: received RT Hyperlipidemia 08/09/2020 DX:Hyperlipidemi a HTN (hypertension) 08/09/2020 DX:HTN (hyper tension) History of diverticulitis 08/09/2020 DX:His tory of diverticulitis Peripheral vascular disease ([facility] V24) 08/09/2020 DX:Peripheral vascular disea se ([facility]) Diabetic neuritis ([facility] V 24, [facility] V28) 08/09/2020 DX:Diabetic neuritis ([facility]) Gastroesophageal reflux dise ase without esophagitis 08/09/2020 DX:Gastroesophageal reflux d isease without esophagitis Anxiety 08/09/2020 DX:Anxiety Malignant neoplasm of right vocal cord ([facility] V24, [facility] V28) 11/06/2020 DX:Malignant neoplasm of ri ght [...] Orientation Straight 10/26/2024 4: 21 PM EST Last Filed Vital Signs Vital Sign Reading [...] EDT Height 172.7 cm (5' 8 ) 09/13/2025 1:03 PM EST Body Mass Index 27.37 07/27/2025 1:11 PM EDT Plan of Treatment Upcoming Encounters Date Type Department Care Team (Late st Contact Info) Description 10/05/2025 2:30 PM EST Clinical Support [facility] [address] [place] [phone] 10/12/2025 2:30 PM EST Clinical Support [facility] [address] [place] [phone] 10/19/2025 2:30 PM EST Clinical Support [facility] [address] [place] [phone] 10/26/2025 2:30 PM EST Clinical Support [facility] [address] [place] [phone] 11/02/2025 2:30 PM EST Clinical Support [facility] [address] [place] [phone] 02/11/2026 1:30 PM EDT Ancillary Procedure [facility] - [address] [place] [phone] 03/15/2026 1:00 PM EDT Office Visit [facility] [place] [address] [place] [phone] Andie Chua PA [address] [place] [phone] 06/06/2026 1:30 PM EDT Ancillary Procedure [facility] [address] [place] [phone] Health Maintenance Due Date Last Done Comments Drug Screen 1940 Non-Opioid Controlled Substance Agreement 1940 Diabetes: Annual Retina Eye Exam 1949 Diabetes: Annual Foot Exam 09/07/2024 09/07/2023 Diabetes: Annual Urine Albumin-Creatinine Ratio (uACR) 09/08/2024 09/08/2023 Diabetes: Blood Sugar Control Test (HGBA1C) 09/21/2024 03/22/2024, 03/22/2024 Depression Screening 10/04/2024 Medicare Annual Wellness Visit 02/16/2025 02/17/2024 COVID-19 Vaccine (6 - Pfizer risk 2024- season) 2026 07/24/2025, 07/10/2022, 05/20/2021, Additional history [...] Plan Impaired Tissue Improving( 2:20 PM EST) Ginny Justin, GLO Patient and Caregiver Understand Wound Care Education Care Plan Impaired Tissue On track( 025 2:20 PM EST) Ginny Justin, junior software engineer volume breakdown reduced by X% by week 4 Care Plan Impaired Tissue No Gniny Martínez, junior software engineer volume breakdown reduced by X% by week [...] Martínez RN Medical Devices Implanted Type Area Stone Paver Device Identifier Shelf Expiration Date Model / Serial / Lot Medt-Card Isola Xt Dr Artis [id number] Implanted: (Quantity not on file) Cardiac Pacemaker [employer] - CARDIAC RHYTH-CRDM KENDELL XT DR ARTIS [id number] / [id number] / Medt-Card Kendell Xt Dr Artis [id number] Implanted: (Quantity not on file) Cardiac Pacemaker [employer] - CARDIAC RHYTH-CRDM KENDELL XT DR ARTIS / [id number] / Hemostat Absorb Surgicel 2x4in Fibrillar - Sn/A - [id number] Implanted:Qty : 1 on 01/17/2025 by Ahmet Banks MD at [facility] Hemostasis Right: Leg [facility] [employer] 07/03/2027 1962 / N/A / [id number] Sealant Fibrin Vistaseal 4ml - [id number] - [id number] Implanted:Qty : 1 on 01/17/2025 by Ahmet Banks MD at [facility] Hemostasis Right: Leg [employer] [id number] 07/18/2026 [id number] / [id number] / [id number] Hemostat Absorb 1x2 Surgicel Fibrillar - Sn/A - [id number] Implanted:Qty : 1 on 02/07/2025 by Ahmet Banks MD at [facility] Hemostasis Right: Foot [employer] 07/03/2026 1961 / N/A / [id number] Vein Saphns 50-59cm A B Ab O Blood Type - [id number] - [id number] Implanted:Qty : 1 on 01/17/2025 by Ahmet Banks MD at [facility] [employer] Right: Leg [employer] 04/05/2029 [id number] / [id number] / [id number] Patch Biol Xenosure .8x8cm - Sn/A - [id number] Implanted:Qty : 1 on 01/17/2025 by Ahmet Banks MD at [facility] Vascular Grafts Right: Leg [employer] 12/29/2029 E0.8P8 / N/A / [id number] Procedures Procedure Name Priority Date/Time Associated Diagnosis Comments DEBRIDEMENT Routine 09/21/2025 2:30 PM EST Dehiscence of operative wound, subsequent encounter Non-healing wound of amputation stump (CMS/HCC V24, CMS/HCC V28) Non-pressure chronic ulcer of other part of right lower leg with fat layer exposed (CMS/HCC V24, CMS/HCC V28) DEBRIDEMENT Routine 09/14/2025 2:30 PM EST Dehiscence of operative wound, subsequent encounter Non-healing wound of amputation stump (CMS/HCC V24, CMS/HCC V28) 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 without evidence of necrosis (CMS/HCC V24, CMS/HCC V28) CT ANGIO ABDOMINAL AORTA W RUNOFF Routine 09/07/2025 3:59 PM EST PAD (peripheral artery disease) ([facility] V24) Status post endovascular aneurysm repair (EVAR) DEBRIDEMENT Routine 09/07/2025 2:30 PM EST Non-healing wound of amputation stump (CMS/HCC V24, CMS/HCC V28) Non-pressure chronic ulcer right lower leg, limited to breakdown skin (CMS/HCC V24, CMS/HCC V28) DEBRIDEMENT Routine 09/07/2025 2:30 PM EST Dehiscence of operative wound, [...] evidence of necrosis (CMS/HCC V24, CMS/HCC V28) BASIC METABOLIC PANEL Routine 06/23/2025 6:31 AM EDT HEMOGLOBIN A1C Routine 03/22/2024 HM URINE ALBUMIN CREATININE RATIO Routine 09/08/2023 LIPID PANEL Routine 09/08/2023 HM DIABETES FOOT EXAM Routine 09/07/2023 from Last 3 Months or Most Recently Relevant to Health Maintenance Results * Debridement Incision Right;Lateral Leg (BKA) (09/14/2025 2:30 PM EST) Dereje Bruno MD - 09/14/2025 2:30 PM EST Dreeje Goins MD 09/14/2025 3:42 PM Debridement Incision Right;Lateral Leg (BKA) Performed [...] Debridement: Muscle involvement without necrosis Time taken: 09/14/2025 2:39 PM Length (cm): 0.8 Width (cm): 0.5 Depth (cm): 1.4 Area (cm^2): 0.31 Time taken: 09/14/2025 2:40 PM Length (cm): 0.9 Width (cm): 0.5 Depth (cm): 1.5 Percent Debrided (%): 90 Surface Area (cm^2): 0.35 Area Debrided (cm^2): 0.32 Volume (cm^3): 0.35 Tissue and other material debrided: dermis, epidermis and subcutaneous tissue Devitalized tissue debrided: exudate, fibrin and slough Instrument: Curette Amount of bleeding: small Hemostasis obtained with: Pressure Procedural pain: 0 Post-procedural pain: 0 Response to treatment: Procedure was tolerated well us Dereje Goins MD IN CLINIC/BEDSIDE ORDERAB LES Final Result * CT Angio Abdominal Aorta w Runoff (09/07/2025 3:59 PM EST) Anatomical Region Laterality Modality Body Computed Tomogra phy 09/13/2025 1:16 PM EST Impressions 09/13/2025 2:21 PM EST 1. Infrarenal abdominal aortic aneurysm with a bifurcating endoluminal stent graft. No evidence of an endoleak. Unchanged size of the aneurysm sac. 2. Patent left SFA-popliteal artery bypass. 3. Extensive multifocal atherosclerotic disease as detailed above. -------- FINAL REPORT -------- Dictated By: Guillermo Trivedi Dictated Date: 09/13/2025 13:16 ET Assigned Physician: Guillermo Trivedi Reviewed and Electronically Signed By: Guillermo Trivedi Signed Date: 09/13/2025 14:21 ET Workstation ID: [id number] Transcribed By: Self Edit Transcribed Date: 09/13/2025 13:16 ET Narrative 09/13/2025 2:21 PM EST PROCEDURE: CT angiogram of the abdomen and pelvis with bilateral lower extremity runoff. TECHNIQUE: CT angiogram with bilateral lower extremity runoff. Multiplanar reformats were created. 3-D reconstructions were performed on an independent workstation. IV contrast dose: 120 mL ISOVUE 370 and 50 mL of saline. HISTORY: pad COMPARISON: 04/02/2024. Dose length product: 4353 mGy-cm. FINDINGS: VASCULATURE: Moderate atherosclerotic calcifications of the descending thoracic aorta. Infrarenal abdominal aortic aneurysm with a new bifurcating endoluminal stent graft. The aneurysm sac is unchanged, measuring 4.3 x 3.7 cm transversely. No evidence of an endoleak. Moderate calcified plaque at the celiac origin without associated stenosis. Predominantly soft plaque at the SMA origin with a moderate associated stenosis. Moderate calcified plaque in the mid and distal SMA without significant associated stenosis. The MELISSA is patent. Early bifurcation of the right main renal artery with a small caliber vessel supplying the upper pole. Atherosclerotic plaque in the main renal artery origin resulting in at least moderate stenosis. There is also a small accessory renal artery supplying the left upper pole. This arises just superior to the dominant left renal artery. Assessment of the dominant left renal artery is limited by streak artifact from the adjacent aortic endograft but there is suggestion of a high-grade renal artery origin stenosis. Right lower extremity. The bifurcating stent is patent throughout the common iliac artery. There is extensive calcified plaque throughout the iliac arteries. Severe origin stenosis of the internal iliac artery. No significant stenosis of the external iliac artery. Prominent calcified plaque in the common femoral artery without a significant stenosis. Moderate plaque in the profunda branch with a mild origin stenosis. Moderate diffuse atherosclerotic plaque in the SFA, most prominent in the mid- distal thigh where there is prominent luminal irregularity and several moderate stenoses. There is suggestion of a complete occlusion of the popliteal artery, though patchy contrast opacification within the proximal trifurcation vessels suggests that there may be trickle flow. Only diminutive flow is visible within the trifurcation vessels. Left lower extremity: The bifurcating endoluminal stent is patent in the common iliac artery. Multifocal calcified plaque in the iliac vessels. Moderate origin stenosis of the internal iliac artery. No external iliac stenosis. Prominent calcified plaque in the common femoral artery without significant stenosis. Calcified plaque results in mild multifocal luminal stenosis of the profunda branch. Multifocal atherosclerotic plaque in the SFA, with a complete occlusion in the distal thigh. Patent SFA-popliteal artery bypass graft. Soft plaque scattered throughout the bypass graft without a high-grade stenosis. Prominent atherosclerotic ossification of the popliteal artery, with a high- grade stenosis of the distal lumen. Bulky calcified plaque in the trifurcation vessels. There is no significant flow in the anterior tibial artery or peroneal artery beyond the proximal calf. At least moderate multifocal luminal irregularity and narrowing of the posterior tibial artery, which is the primary inflow to the foot. LUNG BASES: Mild dependent atelectasis. Linear bands of scarring and/or atelectasis in the lingula. CARDIAC: Mild cardiomegaly. Pacemaker leads positioned in the right atrium and right ventricle. Moderate coronary artery calcifications. Stents in the right coronary artery. LIVER: No focal lesion evident on arterial phase imaging. BILIARY: Layering sludge and small stones in the gallbladder. PANCREAS: Normal. SPLEEN: Normal. ADRENAL GLANDS: Normal. KIDNEYS: Mild generalized left renal cortical atrophy. Bilateral cortical cysts, with small low-attenuation lesions which are also likely cysts but too small for definitive characterization. There are a few small hemorrhagic cysts as well. Punctate bilateral nonobstructing renal calculi. Normal appearance of the ureters. RETROPERITONEUM: No mass or adenopathy. BOWEL/MESENTERY: No obstruction or adenopathy. No mass or ascites. Colonic diverticulosis, extensive in the sigmoid. Normal appendix. ABDOMINAL WALL: Small fat-containing paraumbilical hernia. PELVIC NODES: No adenopathy. Small surgical clips in the left inguinal region. PELVIC ORGANS: Dystrophic calcifications of the prostate. BONES: Diffusely demineralized. Partially visible sternotomy wires. Diffuse degenerative changes of the spine. Stable superior endplate fracture at T11. Degenerative changes of both knees. Right below-knee amputation. There is a soft tissue defect suggestive of an open wound at the lateral amputation site. Regional fat stranding no visible focal fluid collection. Procedure Note Guillermo Trivedi MD - 09/13/2025 PROCEDURE: CT angiogram of the abdomen and pelvis with bilateral lowerextremity runoff. TECHNIQUE: CT angiogram with bilateral lower extremity runoff.Multiplanar reformats were created. 3-D reconstructions were performed yariel independent workstation. IV contrast dose: 120 mL ISOVUE 370 and 50 mL of saline. HISTORY: pad COMPARISON: 04/02/2024. Dose length product: 4353 mGy-cm. FINDINGS: VASCULATURE: Moderate atherosclerotic calcifications of the descending thoracicaorta. Infrarenal abdominal aortic aneurysm with a new bifurcating endoluminalstent graft. The aneurysm sac is unchanged, measuring 4.3 x 3.7 cmtransversely. No evidence of an endoleak. Moderate calcified plaque at the celiac origin without associatedstenosis. Predominantly soft plaque at the SMA origin with a moderate associatedstenosis. Moderate calcified plaque in the mid and distal SMA withoutsignificant associated stenosis. The MELISSA is patent. Early bifurcation of the right main renal artery with a small calibervessel supplying the upper pole. Atherosclerotic plaque in the main renalartery origin resulting in at least moderate stenosis. There is also a small accessory renal artery supplying the left upperpole. This arises just superior to the dominant left renal artery.Assessment of the dominant left renal artery is limited by streak artifactfrom the adjacent aortic endograft but there is suggestion of a high-graderenal artery origin stenosis. Right lower extremity. The bifurcating stent is patent throughout thecommon iliac artery. There is extensive calcified plaque throughout theiliac arteries. Severe origin stenosis of the internal iliac artery. Nosignificant stenosis of the external iliac artery. Prominent calcifiedplaque in the common femoral artery without a significant stenosis.Moderate plaque in the profunda branch with a mild origin stenosis.Moderate diffuse atherosclerotic plaque in the SFA, most prominent in themid-distal thigh where there is prominent luminal irregularity and severalmoderate stenoses. There is suggestion of a complete occlusion of thepopliteal artery, though patchy contrast opacification within the proximaltrifurcation vessels suggests that there may be trickle flow. Onlydiminutive flow is visible within the trifurcation vessels. Left lower extremity: The bifurcating endoluminal stent is patent in thecommon iliac artery. Multifocal calcified plaque in the iliac vessels.Moderate origin stenosis of the internal iliac artery. No external iliacstenosis. Prominent calcified plaque in the common femoral artery withoutsignificant stenosis. Calcified plaque results in mild multifocal luminalstenosis of the profunda branch. Multifocal atherosclerotic plaque in theSFA, with a complete occlusion in the distal thigh. Patent SFA-poplitealartery bypass graft. Soft plaque scattered throughout the bypass graftwithout a high-grade stenosis. Prominent atherosclerotic ossification ofthe popliteal artery, with a high-grade stenosis of the distal lumen.Bulky calcified plaque in the trifurcation vessels. There is nosignificant flow in the anterior tibial artery or peroneal artery beyondthe proximal calf. At least moderate multifocal luminal irregularity andnarrowing of the posterior tibial artery, which is the primary inflow to the foot. LUNG BASES: Mild dependent atelectasis. Linear bands of scarring and/oratelectasis in the lingula. CARDIAC: Mild cardiomegaly. Pacemaker leads positioned in the rightatrium and right ventricle. Moderate coronary artery calcifications.Stents in the right coronary artery. LIVER: No focal lesion evident on arterial phase imaging. BILIARY: Layering sludge and small stones in the gallbladder. PANCREAS: Normal. SPLEEN: Normal. ADRENAL GLANDS: Normal. KIDNEYS: Mild generalized left renal cortical atrophy. Bilateral corticalcysts, with small low-attenuation lesions which are also likely cysts buttoo small for definitive characterization. There are a few smallhemorrhagic cysts as well. Punctate bilateral nonobstructing renalcalculi. Normal appearance of the ureters. RETROPERITONEUM: No mass or adenopathy. BOWEL/MESENTERY: No obstruction or adenopathy. No mass or ascites.Colonic diverticulosis, extensive in the sigmoid. Normal appendix. ABDOMINAL WALL: Small fat-containing paraumbilical hernia. PELVIC NODES: No adenopathy. Small surgical clips in the left inguinalregion. PELVIC ORGANS: Dystrophic calcifications of the prostate. BONES: Diffusely demineralized. Partially visible sternotomy wires.Diffuse degenerative changes of the spine. Stable superior endplatefracture at T11. Degenerative changes of both knees. Right below-kneeamputation. There is a soft tissue defect suggestive of an open wound atthe lateral amputation site. Regional fat stranding no visible focalfluid collection. IMPRESSION: 1. Infrarenal abdominal aortic aneurysm with a bifurcating endoluminalstent graft. No evidence of an endoleak. Unchanged size of the aneurysmsac. 2. Patent left SFA-popliteal artery bypass. 3. Extensive multifocal atherosclerotic disease as detailed above. -------- FINAL REPORT -------- Dictated By: Guillermo Trivedi Dictated Date: 09/13/2025 13:16 ET Assigned Physician: Guillermo Trivedi Reviewed and Electronically Signed By: Guillermo Trivedi Signed Date: 09/13/2025 14:21 ET Workstation ID: [id number] Transcribed By: Self Edit Transcribed Date: 09/13/2025 13:[address] PROCEDURES Final Result * Debridement Incision Right;Medial Leg (BKA) (09/07/2025 2:30 PM EST) Dereje Bruno MD - 09/07/2025 2:30 PM EST Dereje Goins MD 09/07/2025 4:01 PM Debridement Incision Right;Medial Leg (BKA) Performed by: Dereje Goins MD Authorized by: Dereje Goins MD Associated wounds: Wound Incision 07/27/25 Leg Right;Medial Consent: Consent obtained: Verbal Consent given by: Patient Risks discussed: Yes Time out: Immediately prior to the procedure a time out was called Debridement Details: Performed by: Physician Type: conservative sharp Pain control: Lidocaine 4% Pain control administration: topical anesthesia Severity of Tissue Pre Debridement: Limited to breakdown of skin Severity of Tissue Post Debridement: Limited to breakdown of skin Time taken: 09/07/2025 2:33 PM Length (cm): 0.3 Width (cm): 0.3 Depth (cm): 0.1 Area (cm^2): 0.07 Time taken: 09/07/2025 2:34 PM Length (cm): 0.3 Width (cm): 0.3 Depth (cm): 0.1 Percent Debrided (%): 100 Surface Area (cm^2): 0.07 Area Debrided (cm^2): 0.07 Volume (cm^3): 0 Tissue and other material debrided: dermis and epidermis Devitalized tissue debrided: biofilm, exudate, fibrin and slough Instrument: Curette Amount of bleeding: small Hemostasis obtained with: Pressure Procedural pain: 0 Post-procedural pain: 0 Response to treatment: Procedure was tolerated well us Dereje Goins MD IN CLINIC/BEDSIDE ORDERAB LES Final Result * Debridement Incision Right;Lateral Leg (BKA) (09/07/2025 2:30 PM EST) Dereje Bruno MD - 09/07/2025 2:30 PM EST Dereje Goins MD 09/07/2025 4:01 PM Debridement Incision Right;Lateral Leg (BKA) Performed [...] Debridement: Muscle involvement without necrosis Time taken: 09/07/2025 2:34 PM Length (cm): 0.7 Width (cm): 0.7 Depth (cm): 1.5 Area (cm^2): 0.38 Time taken: 09/07/2025 2:35 PM Length (cm): 0.8 Width (cm): 0.8 Depth (cm): 1.6 Percent Debrided (%): 90 Surface Area (cm^2): 0.5 Area Debrided (cm^2): 0.45 Volume (cm^3): 0.54 Tissue and other material debrided: dermis, epidermis and subcutaneous tissue Devitalized tissue debrided: biofilm, fibrin, necrotic debris and slough Instrument: Curette Amount of bleeding: small Hemostasis obtained with: Pressure Procedural pain: 0 Post-procedural pain: 0 Response to treatment: Procedure was tolerated well us Dereje Goins MD IN CLINIC/BEDSIDE ORDERAB LES Final Result * Debridement Incision Right;Medial Leg (BKA) (08/24/2025 [...] out was called Debridement Details: Performed by: PA Type: surgical Level: subcutaneous tissue Pain control: [...] Right;Lateral Leg (BKA) (07/27/2025 12:45 PM EDT) Dereje [...] IN CLINIC/BEDSIDE ORDERAB LES Final Result * (ABNORMAL) Basic metabolic panel (06/23/2025 6:31 AM EDT) [facility] Sodium 140 133 - 145 mmol/L LAB CHEMISTRY METHOD 06/23/2025 7:14 AM [facility] Potassium 3.6 3.5 - 5.5 mmol/L LAB CHEMISTRY METHOD 06/23/2025 7:14 AM [facility] Chloride 108 96 - 110 mmol/L LAB CHEMISTRY METHOD 06/23/2025 7:14 AM [facility] CO2 27 21 - 32 mmol/L LAB CHEMISTRY METHOD 06/23/2025 7:14 AM [facility] Anion Gap 5 3 - 11 LAB CHEMISTRY METHOD 06/23/2025 7:14 AM [facility] Glucose 104(H) 70 - 100 mg/dL LAB CHEMISTRY METHOD 06/23/2025 7:14 AM [facility] BUN 23 5 - 25 mg/dL LAB CHEMISTRY METHOD 06/23/2025 7:14 AM [facility] Creatinine 1.25 0.70 - 1.30 mg/dL LAB CHEMISTRY METHOD 06/23/2025 7:14 AM [facility] eGFR 56(L) >=60 mL/min/1. 73m2 LAB CHEMISTRY METHOD 06/23/2025 7:14 AM [facility] Comment:Calculation based on the Chronic Kidney Disease Epidemiology Collaboration (CKD-EPI) equation refit without adjustment for race. BUN/Creatinine Ratio 18.4 LAB CHEMISTRY METHOD 06/23/2025 7:14 AM [facility] Calcium 9.1 8.5 - 10.5 mg/dL LAB CHEMISTRY METHOD 06/23/2025 7:14 AM [facility] Blood Venous blood specimen / Unknown Venipuncture / Unknown 06/23/2025 6:31 AM EDT 06/23/2025 6:42 AM EDT [facility] LAB BLOOD ORDERABLES Final R esult [facility] [address] [place] [address], * Hemoglobin A1c (03/22/2024) [facility] Hemoglobin A1C 6.4 <=6.5 % Blood Venous blood specimen / Unknown [facility] Provider LAB BLOOD ORDERABLES Rosa Isela l Result * Urine Albumin Creatinine Ratio (09/08/2023) [facility] Urine Albumin Creatinine Ratio Abstracted [facility] Provider HEALTH MAINTENANCE Final Result * (ABNORMAL) Lipid panel (09/08/2023) [facility] LDL/HDL Ratio 4 0 - 4 Triglycerides 249(A) 0 - 150 mg/dL Cholesterol 130 0 - 200 mg/dL HDL 34(A) >=40 mg/dL LDL Cholesterol 47 0 - 100 mg/dL Blood Venous blood specimen / Unknown Result [facility] Provider LAB BLOOD ORDERABLES Rosa Isela l Result * Diabetes Foot Exam (09/07/2023) [facility] Diabetes: Annual Foot Exam Abstracted Result [facility] Provider HEALTH MAINTENANCE Final Result from Last 3 Months or Most Recently Relevant to Health Maintenance Additional Health Concerns Active Problems Noted Date Diagnosed Date Impaired Tissue 07/27/2025 Education needed on impact of smoking on wound 1 Education needed related to ulceration/compromised skin integrity. 07/27/[address] [facility] [place] [phone] MEDICARE [facility] Advance Directives Documents on File Type Date Recorded Patient Direct Response Consultant Expl anation DNR (Do Not Resuscitate) 06/25/2025 [...] currently active code status orders. Care Teams Watch Assembly Instructor Relationship Specialty Start Date End Date Diana Corona PA [address] [place] [address] PCP - General Physician Aquatics Manager 04/10/25
--- OUTSIDE RECORDS SUMMARY | 2025-09-24 08:36 | XMS_ITS | Encounter Summary ---
Author Organization [facility] Address [address] [place] [phone] Phone Care Team Providers Care Wine Steward Name Role Phone Irving Swift DO Primary Care Provider [phone] Janee Berry MD, MPH Primary Care Provid er Unknown, Unknown Primary Care Provider Jaya Sanchez MD Primary Care Provider Encounter Details Date Type Department Care Team (Late st Contact Info) Description 10/13/2017 Ancillary Orders [facility] [address] [place] [address] Ulisses Lyn MD [address] [place] [address] [email or web address] Complete heart block Social History Tobacco [...] Complete heart block Examination: Device type: Pacemaker Pumper Head: Medtronic Mode: DDDR LRL/URL: 70/130 bpm Thresholds, [...] complete documented in this encounter Care Teams Wine Steward Relationship Specialty Start Date End Date Irving Swift DO [address] [place] [address] PCP - General 07/22/17 01/18/19 Janee Berry MD, MPH [address] [place] [phone] [email or web address] PCP - General Family Medicine 01/19/19 05/23/19 Unknown, MD Price [address] [address] PCP - General 05/24/19 09/06/19 Jaya Brock MD [address] [place] [address] PCP - General 09/07/19 documented as of this encounter Additional Source Comments The information contained in this document represents components of the legal health record. It is not the complete legal health record.[facility]
--- OUTSIDE RECORDS SUMMARY | 2025-09-24 08:36 | XMS_ITS | Encounter Summary ---
Author Organization [facility] [place] [address] Care Team Providers Care Clamshell Engineer Name Role Phone Diana Corona Primary Care Provider [phone] Encounter Details Date Type Department Care Team (Late st Contact Info) Description 04/16/2025 Lab Requisition [facility] [address] [facility] [place] [address] Rikki Rosen PA [address] [phone] Encounter for other general examination Social History [...] Description 10/05/2025 2:30 PM EST Clinical Support [facility] [address] [place] [phone] 10/12/2025 2:30 PM EST Clinical Support [facility] [address] [place] [phone] 10/19/2025 2:30 PM EST Clinical Support [facility] [address] [place] [phone] 10/26/2025 2:30 PM EST Clinical Support [facility] [address] [place] [phone] 11/02/2025 2:30 PM EST Clinical Support [facility] [address] [place] [phone] 02/11/2026 1:30 PM EDT Ancillary Procedure [facility] [address] [place] [phone] 03/15/2026 1:00 PM EDT Office Visit [facility] [place] [address] [place] [address] Andie Chua PA [address] [place] [phone] 06/06/2026 1:30 PM EDT Ancillary Procedure [facility] [address] [place] [address] documented as of this encounter Procedures Procedure Name Priority Date/Time Associated Diagnosis Comments CBC WITH AUTO DIFFERENTIAL Routine 04/16/2025 6:10 AM EDT Encounter for other general examination CBC AND DIFFERENTIAL Routine 04/16/2025 6:10 AM EDT Encounter for other general examination documented in this encounter Results * (ABNORMAL) CBC auto differential (04/16/2025 6:10 AM EDT) [facility] WBC 7.1 4.8 - 10.8 K/[facility] LAB HEMETOLOGY METHOD 04/16/2025 12:45 PM EDT [facility] RBC 2.20(L) 4.50 - 5.50 M/[facility] LAB HEMETOLOGY METHOD 04/16/2025 12:45 PM EDT [facility] Hemoglobin 7.2(L) 13.5 - 17.5 g/dL LAB HEMETOLOGY METHOD 04/16/2025 12:45 PM EDT [facility] Hematocrit 23.2(L) 42.0 - 54.0 % LAB HEMETOLOGY METHOD 04/16/2025 12:45 PM EDT [facility] MCV 105.9(H) 79.0 - 98.0 FL LAB HEMETOLOGY METHOD 04/16/2025 12:45 PM EDT [facility] MCH 32.9(H) 27.0 - 32.0 pcg LAB HEMETOLOGY METHOD 04/16/2025 12:45 PM EDT [facility] MCHC 31.0(L) 32.0 - 37.0 g/dL LAB HEMETOLOGY [facility] RDW 15.7(H) 11.0 - 15.0 % LAB HEMETOLOGY [facility] Platelets 198 130 - 400 K/mcL LAB HEMETOLOGY METHOD [facility]/16[facility]2025 [facility] MPV 10.7 7.0 - 11.0 FL LAB HEMETOLOGY METHOD 04/16[facility]2025 12[facility] NRBC 0.0 <1.0 % LAB HEMETOLOGY METHOD 04/16/2025 12:45 PM [facility] NRBC Absolute 0.00 <0.10 K/mcL LAB HEMETOLOGY METHOD 04/16[facility]2025 12[facility] Neutrophils Relative 55.2 % LAB HEMETOLOGY METHOD 04/16[facility]2025 12:[facility] Lymphocytes Relative 23.4 % LAB HEMETOLOGY METHOD 04/16/2025 12:[facility] Monocytes Relative 13.6 % LAB HEMETOLOGY METHOD 04/16/2025 12:45 PM [facility] Eosinophils Relative 6.9 % LAB HEMETOLOGY METHOD 04/16/2025 12:45 PM EDT [facility] Basophils Relative 0.6 % LAB HEMETOLOGY METHOD 04/16/2025 12:45 PM EDT [facility] Immature Granulocytes Relative 0.3 % LAB HEMETOLOGY METHOD 04/16/2025 12:45 PM EDT [facility] Neutrophils Absolute 3.95 [...] R esult [facility] [address] [place] [address], documented in this encounter Visit Diagnoses Diagnosis [...] documented as of this encounter Care Teams Clamshell Engineer Relationship Specialty Start Date End Date Diana Corona PA [address] [place] [phone] PCP - General Physician Aircraft Structure Mechanic 04/10/25 documented as of this encounter
--- OUTSIDE RECORDS SUMMARY | 2025-09-24 08:36 | XMS_ITS | Encounter Summary ---
Author Organization [facility] Address [address] [place] [address] Phone Care Team Providers Care Gun Stocker Name Role Phone Jaya Brock MD Primary Care Provider Encounter Details Date Type Department Care Team (Latest Contact Info) Description 12/11/2020 Ancillary Orders [facility] [address] [facility] 3rd Floor, [address] [place] [address] Kash Boles MD [address] [place] [phone] [email or web address] Sick sinus syndrome Social History Tobacco Use [...] dysfunction documented in this encounter Care Teams Gun Stocker Relationship Specialty Start Date End Date Jaya Brock MD PCP - General 09/07/19 documented as of this encounter Additional Source Comments The information contained in this document represents components of the legal health record. It is not the complete legal health record.[facility]
--- OUTSIDE RECORDS SUMMARY | 2025-09-24 08:36 | XMS_ITS | Encounter Summary ---
Author Organization [facility] Address [address] [place] [phone] Phone Care Team Providers Care Property Assistant Name Role Phone Jaya Brock MD Primary Care Provider Encounter Details Date Type Department Care Team (Late st Contact Info) Description 11/26/2020 Ancillary Orders [facility] [address] [place] [address] Ulisses Lyn MD [address] [facility] [place] [address] [email or web address] Sick sinus syndrome Social History Tobacco [...] dysfunction documented in this encounter Care Teams Property Assistant Relationship Specialty Start Date End Date Jaya Brock MD PCP - General 09/07/19 documented as of this encounter Additional Source Comments The information contained in this document represents components of the legal health record. It is not the complete legal health record.[facility]
--- OUTSIDE RECORDS SUMMARY | 2025-09-24 08:36 | XMS_ITS | Encounter Summary ---
Author Organization [facility] [place] [address] Care Team Providers Care Industrial Property Appraiser Name Role Phone Diana Corona Primary Care Provider [phone] Encounter Details Date Type Department Care Team (Late st Contact Info) Description 04/21/2025 Lab Requisition [facility] - Main Lab [address] [facility] [place] [address] Frances Meléndez PA [address] [place] [address] Encounter for other general examination [...] Description 10/05/2025 2:30 PM EST Clinical Support [facility] [address] [place] [phone] 10/12/2025 2:30 PM EST Clinical Support [facility] [address] [place] [phone] 10/19/2025 2:30 PM EST Clinical Support [facility] [address] [place] [phone] 10/26/2025 2:30 PM EST Clinical Support [facility] [address] [place] [phone] 11/02/2025 2:30 PM EST Clinical Support [facility] [address] [place] [address] 02/11/2026 1:30 PM EDT Ancillary Procedure [facility] - [address] [place] [address] 03/15/2026 1:00 PM EDT Office Visit [facility] [place] [address] [place] [address] Andie Chua PA [address] [place] [address] 06/06/2026 1:30 PM EDT Ancillary Procedure [facility] Cardiology [facility] [address] [place] [address] documented as of this encounter Procedures Procedure Name Priority Date/Time Associated Diagnosis Comments IRON AND TIBC Routine 04/21/2025 5:38 AM EDT Encounter for other general examination documented in this encounter Results * (ABNORMAL) Iron and TIBC (04/21/2025 5:38 AM EDT) Iron 75 50 - 160 mcg/dL LAB CHEMISTRY METHOD 04/21/2025 11:20 AM EDT [facility] TIBC 385 250 - 450 mcg/dL LAB CHEMISTRY METHOD 04/21/2025 11:20 AM EDT [facility] Iron Saturation 19(L) 20 - 50 % LAB CHEMISTRY METHOD 04/21/2025 11:20 AM EDT [facility] Blood Venous blood specimen / Unknown Venipuncture / Unknown 04/21/2025 5:38 AM EDT 04/21/2025 9:48 AM EDT us Frances CHACON LAB BLOOD ORDERABLES Final Resul t [facility] [address] [place] [address], documented in this encounter Visit Diagnoses Diagnosis [...] documented as of this encounter Care Teams Industrial Property Appraiser Relationship Specialty Start Date End Date Diana Corona PA [address] [place] [address] PCP - General Physician Industrial Accountant 04/10/25 documented as of this encounter
--- OUTSIDE RECORDS SUMMARY | 2025-09-24 08:36 | XMS_ITS | Encounter Summary ---
Author Organization [facility] Address [address] [place] [address] Phone Care Team Providers Care Track Laminating Machine Tender Name Role Phone Irving Swift DO Primary Care Provider [phone] Janee Berry MD, MPH Primary Care Provid er Unknown, Unknown Primary Care Provider Jaya Sanchez MD Primary Care Provider Encounter Details Date Type Department Care Team (Latest Contact Info) Description 07/24/2017 Ancillary Orders [facility] [address] [facility] [address], [address] [place], [place] [id number] Santy Matos, NITIN [address] [place] [address] [address] [place] [address] Diagnosis unknown Social History Tobacco [...] * DEVICE CHECK: PPM REMOTE INTERROGATION WITH OIL AND GAS WELL TREATMENT OPERATOR REVIEW (08/22/2018 2:20 PM EST) Narrative Ulisses Moy DO - 08/23/2018 2:09 PM EST Reason for appointment: Remote pacemaker interrogation HPI: Routine 3 month remote pacemaker interrogation. No device related complaints. Indication for device: SSS. Examination: Device type: Pacemaker Wom[facility] Nurse Practitioner: [employer] Mode: DDDR LRL/UPL: 70/130 bpm Mode [...] unknown documented in this encounter Care Teams Track Laminating Machine Tender Relationship Specialty Start Date End Date Irving Swift DO [address] [place] [address] PCP - General 07/22/17 01/18/19 Janee Berry MD, MPH [address] [place] [address] [email or web address] PCP - General Family Medicine 01/19/19 05/23/19 Unknown, Unknown, [address] [place] [address] PCP - General 05/24/19 09/06/19 Jaya Brock MD [address] [place] [address] PCP - General 09/07/19 documented as of this encounter Additional Source Comments The information contained in this document represents components of the legal health record. It is not the complete legal health record.[facility]
--- OUTSIDE RECORDS SUMMARY | 2025-09-24 08:36 | XMS_ITS | Patient Health Record ---
Author Organization [facility] Address [facility] [place] [address] Phone [phone] Care Team Providers Care Corporate Licensed Broker Name Role Phone Jadyn Daniel MD Primary Care Provider [phone] Reason For Referral No Information Medications Medication SIG (Take, Route, Frequency, Duration) Notes Start Date End Date Diagnosis (ICD Code) Status Lansoprazole 30 MG Capsule Delayed Release 1 capsule Orally Once a day; Duration: 30 day(s) Active Fenofibrate 145 MG Tablet 1 tablet with food Orally Once a day; Duration: 30 day(s) Active Myrbetriq 50 MG Tablet Extended Release 24 Hour 1 tablet Orally Once a day; Duration: 30 day(s) Active LORazepam 0.5 MG Tablet 1 tablet as needed Orally Once a day Active Lyrica 150 MG Capsule 1 capsule Orally Once a day Active Norvasc 5 MG Tablet 1 tablet Orally Once a day Hypertensive hea rt disease without heart failure (ICD_10 - I11.9) Active Losartan Potassium 100 MG Tablet 1 tablet Orally Once a day Hypertensive hea rt disease without heart failure (ICD_10 - I11.9) Active Nitroglycerin 0.4 MG Tablet Sublingual as directed Sublingual 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 calcified coronary lesion (ICD_10 - I25.84) Active Lantus SoloStar 100 UNIT/ML Solution Pen-injector 23 units Subcutaneous Once a day Type 2 diabetes mellitus with hyperglycemia, without long-term current use of insulin (ICD_10 - E11.65) Active Lipitor 80 MG Tablet 1 tablet Orally Once a day; Duration: 30 day(s) Active Atenolol 50 MG Tablet 1 tablet Orally Once a day; Duration: 30 day(s) Active glipiZIDE ER 5 MG Tablet Extended Release 24 Hour 1 tablet with food Orally Once a day; Duration: 30 day(s) Active Social History Tobacco Use: Social History Observation Description Date Details (start date - stop date) Former Smoker NA - NA Sex Observation Social History Observation Description Sex Observation Male Social History Social History Social Info Question Answer Notes Alcohol Screening: Did you have a drink containing alcohol in the past year? No Points 0 Interpretation Negative Smoking Are you a: former smoker Section Notes: quit smoking 30 yrs ago no d rinking no drugs Problems Problem Type SNOMED Code ICD Code Dates Problem Status W/U Status Risk Notes Problem Atherosclerotic heart disease of [place] coronary artery without angina pectoris (661993319296821) Atherosclerotic heart disease of [place] coronary artery without angina pectoris (I25.10) Added On:10/24 Active confirmed Problem Hypertensive heart disease without congestive heart failure (69959544) Hypertensive heart disease without heart failure (I11.9) Added On:10/24 Active confirmed Problem Atherosclerosis of coronary artery (361549811) 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 calcified coronary lesion (I25.84) Added On:10/24 Active confirmed Problem Hyperglycemia due to type 2 diabetes mellitus (670755275718727) Type 2 diabetes mellitus with hyperglycemia, without long-term current use of insulin (E11.65) Added On:10/24 Active confirmed Problem Laryngitis (92778647) Laryngitis (J04.0) Added On:10/24 Active confirmed Plan Of Treatment No Information Insurance Providers Payer Name Payer Address Payer Phone Subscriber Number Group Number Insured Name Patient Relationship to Insured Coverage Start Date Coverage End Date MEDICARE PART B [address] [address] [place] [address] [id number] Mark Anthony Omalley Self - patient is the insured [facility] [address] [place] [address] [phone] [id number] Mark Anthony Omalley Self - patient is the insured Medical (General) History Medical History History ICD Code diabetes mellitus Coronary Artery Disease. 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
--- OUTSIDE RECORDS SUMMARY | 2025-09-24 08:36 | XMS_ITS | Encounter Summary ---
Author Organization [facility] Address [address] [place] [address] Phone Care Team Providers Care Help Desk Operator Name Role Phone Irving Swift DO Primary Care Provider [phone] Janee Berry MD, MPH Primary Care Provid er Unknown, Unknown Primary Care Provider Jaya Sanchez MD Primary Care Provider Encounter Details Date Type Department Care Team (Late st Contact Info) Description 10/13/2017 Ancillary Orders [facility] [address] [place] [address] Ulisses Lyn MD [address] [place] [address] [email or web address] Social History Tobacco Use Types Packs/Day Years [...] on filedocumented in this encounter Care Teams Help Desk Operator Relationship Specialty Start Date End Date Irving Swift DO [address] [place] [address] PCP - General 07/22/17 01/18/19 Janee Berry MD, MPH [address] [facility] [address] [place] [address] [email or web address] PCP - General Family Medicine 01/19/19 05/23/19 Unknown, Price, [address] [place] [address] PCP - General 05/24/19 09/06/19 Jaya Brock MD [address] [place] [address] PCP - General 09/07/19 documented as of this encounter Additional Source Comments The information contained in this document represents components of the legal health record. It is not the complete legal health record.[facility]
--- OUTSIDE RECORDS SUMMARY | 2025-09-24 08:36 | XMS_ITS | Encounter Summary ---
Author Organization [facility] Address [address] [place] [address] Phone Care Team Providers Care Cpo Name Role Phone Jaya Brock MD Primary Care Provider Encounter Details Date Type Department Care Team (Late st Contact Info) Description 12/11/2020 Procedure [facility] [address] [place] [address] Social History Tobacco Use Types Packs/Day Years [...] on filedocumented in this encounter Care Teams Cpo Relationship Specialty Start Date End Date Jaya Brock MD PCP - General 09/07/19 documented as of this encounter Additional Source Comments The information contained in this document represents components of the legal health record. It is not the complete legal health record.[facility]
--- OUTSIDE RECORDS SUMMARY | 2025-09-24 08:36 | XMS_ITS | Encounter Summary ---
Author Organization [facility] Address [address] [place] [address] Phone Care Team Providers Care Supervisor Varnish Name Role Phone Irving Swift DO Primary Care Provider [phone] Janee Berry MD, MPH Primary Care Provid er Unknown, Unknown Primary Care Provider Jaya Sanchez MD Primary Care Provider Encounter Details Date Type Department Care Team (Latest Contact Info) Description 10/13/2017 Ancillary Orders [facility] [address] [place] [address] 3rd Floor, [address] [place] [address] Ulisses Lyn MD [address] [place] [address] [email or web address] Complete heart block Social History [...] for device SSS Examination: Device type: pacemaker Loft Worker: MDT Thresholds, impedances, and sensing stable. Mode [...] complete documented in this encounter Care Teams Supervisor Varnish Relationship Specialty Start Date End Date Irving Swift DO [address] [place] [address] PCP - General 07/22/17 01/18/19 Janee Berry MD, MPH [address] [place] [address] [email or web address] PCP - General Family Medicine 01/19/19 05/23/19 Unknown, Price, [address] [place] [address] PCP - General 05/24/19 09/06/19 Jaya Brock MD [address] [place] [address] PCP - General 09/07/19 documented as of this encounter Additional Source Comments The information contained in this document represents components of the legal health record. It is not the complete legal health record.[facility]
--- OUTSIDE RECORDS SUMMARY | 2025-09-24 08:37 | XMS_ITS | Clinical Summary ---
Author Organization [facility] Address [address] [place] [address] Phone Care Team Providers Care Garage Door Service Technician Name Role Phone Mercy Grewal Primary Care Provider [phone] Allergies Active Allergy Reactions Criticality Noted Date [...] Encounters Date Type Department Care Team Description 09/17/2025 Refill [facility] [address] [facility] [address] [place] [address] Simone Wall MD from Last 3 Months Immunizations Immunization Administration Dates Next Due Pfizer SARS-COV-2 05/20/2021,12/02/2020,11/10/19 21 Pneumococcal Conjugate 13-Valent 01/29/2018,10/04/2015 Pneumococcal Polysaccharide 07/04/2019 Shingrix 08/03/2018,01/29/2018 Td, Unspecified [...] 06/22/2024 03/22/2024 Influenza Vaccine (#1) 2025 2, 08/04/2021, 07/08/2021, Additional history exists Pneumococcal Vaccine: 50+ Years Completed 07/04/2019, 01/29/2018, 07/10/2015 Pneumococcal Vaccine: Peds (0 to 5 Years) and At-Risk Patients (6 to 49 Years) Discontinued 07/04/2019, 01/29/2018, 07/10/2015 Hepatitis B Vaccine Aged Out No longe r eligible based on patient's age to complete this topic [place] [address] Medicare [facility] Medicare Medicare [facility] Care Teams Garage Door Service Technician Relationship Specialty Start Date End Date Mercy Grewal [address] [place] [address] PCP - General 03/03/23
--- OUTSIDE RECORDS SUMMARY | 2025-09-24 08:37 | XMS_ITS | Encounter Summary ---
Author Organization [facility] Address [address] [place] [address] Phone Care Team Providers Care Solar Energy Systems Designer Name Role Phone Irving Swift DO Primary Care Provider [phone] Janee Berry MD, MPH Primary Care Provid er Unknown, Unknown Primary Care Provider Jaya Sanchez MD Primary Care Provider Encounter Details Date Type Department Care Team (Latest Contact Info) Description 07/24/2017 Ancillary Orders [facility] [address] [facility] 3rd Floor, [address] [place] [address] Ulisses Lyn MD [address] [place] [address] [email or web address] Diagnosis unknown Social History Tobacco [...] unknown documented in this encounter Care Teams Solar Energy Systems Designer Relationship Specialty Start Date End Date Irving Swift DO [address] [place] [address] PCP - General 07/22/17 01/18/19 Janee Berry MD, MPH [address] [place] [address] [email or web address] PCP - General Family Medicine 01/19/19 05/23/19 Unknown, Price, [address] [place] [address] PCP - General 05/24/19 09/06/19 Jaya Brock MD [address] [place] [address] PCP - General 09/07/19 documented as of this encounter Additional Source Comments The information contained in this document represents components of the legal health record. It is not the complete legal health record.[facility]
--- OUTSIDE RECORDS SUMMARY | 2025-09-24 08:37 | XMS_ITS | Encounter Summary ---
Author Organization [facility] Address [address] [place] [address] Phone Care Team Providers Care Bottle Tester Name Role Phone Irving Swift DO Primary Care Provider [phone] Janee Berry MD, MPH Primary Care Provid er Unknown, Unknown Primary Care Provider Jaya Sanchez MD Primary Care Provider Encounter Details Date Type Department Care Team (Late st Contact Info) Description 12/28/2018 Ancillary Orders [facility] [address] [place] [address] Ulisses Lyn MD [address] [place] [address] [place] [address] [email or web address] Social History Tobacco Use Types Packs/Day Years [...] on filedocumented in this encounter Care Teams Bottle Tester Relationship Specialty Start Date End Date Irving Swift DO [address] [place] [address] PCP - General 07/22/17 01/18/19 Janee Berry MD, MPH [address] [place] [address] [email or web address] PCP - General Family Medicine 01/19/19 05/23/19 Unknown, Unknown, [address] [place] [address] PCP - General 05/24/19 09/06/19 Jaya Brock MD [address] [place] [address] PCP - General 09/07/19 documented as of this encounter Additional Source Comments The information contained in this document represents components of the legal health record. It is not the complete legal health record.[facility]
--- OUTSIDE RECORDS SUMMARY | 2025-09-24 08:37 | XMS_ITS | Encounter Summary ---
Author Organization [facility] Address [address] [facility] [address] [facility] [address] [place] [address] Phone Care Team Providers Care Hatchery Helper Name Role Phone Irving Swift DO Primary Care Provider [phone]- [phone] Janee Berry MD, MPH Primary Care Provid er Unknown, Unknown Primary Care Provider Jaya Sanchez MD Primary Care Provider Encounter Details Date Type Department Care Team (Late st Contact Info) Description 07/24/2017 Ancillary Orders [facility] [address] [place] [address] Ulisses Lyn MD [address] [place] [address] [email or web address] Social History Tobacco Use Types Packs/Day [...] on filedocumented in this encounter Care Teams Hatchery Helper Relationship Specialty Start Date End Date Irving Swift DO [address] [place] [address] PCP - General 07/22/17 01/18/19 Janee Berry MD, MPH [address] [facility] [address] [place] [address] [email or web address] PCP - General Family Medicine 01/19/19 05/23/19 Unknown, Price, [address] [place] [address] PCP - General 05/24/19 09/06/19 Jaya Brock MD [address] [place] [address] PCP - General 09/07/19 documented as of this encounter Additional Source Comments The information contained in this document represents components of the legal health record. It is not the complete legal health record.[facility]
--- OUTSIDE RECORDS SUMMARY | 2025-09-24 08:37 | XMS_ITS | Encounter Summary ---
Author Organization [facility] [place] [address] Care Team Providers Care Freight Unloader Name Role Phone Diana Corona Primary Care Provider [phone] Encounter Details Date Type Department Care Team (Late st Contact Info) Description 09/13/2025 Results Follow-Up Vascular Surgery - [place] [address] [place] [address] Andie Chua PA [address] [place] [phone] Social History Tobacco Use Types Packs/Day Years [...] of Assessment Author No 05/23/2025 5:29 PM EDDalal RN * Are you blind or do you have serious difficulty seeing, even when wearing glasses? Answer Date of Assessment Author No 05/23/2025 5:29 PM EDDalal RN * Do you have serious difficulty [...] PM Mckeon RN documented in this encounter Plan of Treatment Upcoming Encounters Date Type Department Care Team (Late st Contact Info) Description 10/05/2025 2:30 PM EST Clinical Support [facility] [address] [place] [phone] 10/12/2025 2:30 PM EST Clinical Support [facility] [address] [place] [phone] 10/19/2025 2:30 PM EST Clinical Support [facility] [address] [place] [phone] 10/26/2025 2:30 PM EST Clinical Support [facility] [address] [place] [phone] 11/02/2025 2:30 PM EST Clinical Support [facility] [address] [place] [phone] 02/11/2026 1:30 PM EDT Ancillary Procedure [facility] - [address] [place] [address] 03/15/2026 1:00 PM EDT Office Visit Vascular Surgery - [place] [address] [place] [address] Andie Chua PA [address] [place] [phone] 06/06/2026 1:30 PM EDT Ancillary Procedure [facility] [address] [facility] [address] [place] [address] documented as of this encounter Goals Goal Patient Goal Type Associated Problems Recent Progress Patient-Stated? Author Decrease Wound Volume by X% by date (in notes) Care Plan Impaired Tissue Improving( 2:20 PM EST) No Ginny Martínez RN Patient and Caregiver Understand Wound Care Education Care Plan Impaired Tissue On track( 2:20 PM EST) No Ginny Martínez RN Wound [...] on impact of smoking on wound No Ginyn Martínez RN Reduce tobacco use (cigarettes, smokeless, [...] Martínez RN documented as of this encounter Visit Diagnoses Not on filedocumented in this encounter Additional Health Concerns Active Problems Noted Date Diagnosed Date Impaired Tissue 07/27/2025 Education needed on impact of smoking on wound 1 Education needed related to ulceration/compromised skin integrity. 07/27/2025 documented as of this encounter Care Teams Freight Unloader Relationship Specialty Start Date End Date Diana Corona PA [address] [place] [address] PCP - General Physician Registered Dietetic Technician 04/10/25 documented as of this encounter
--- OUTSIDE RECORDS SUMMARY | 2025-09-24 08:37 | XMS_ITS | Encounter Summary ---
Author Organization [facility] Address [address] [facility] [address] [place] [address] Phone Care Team Providers Care Assistant Tennis Professional Name Role Phone Irving Swift DO Primary Care Provider [phone] Janee Berry MD, MPH Primary Care Provid er Unknown, Unknown Primary Care Provider Jaya Sanchez MD Primary Care Provider Encounter Details Date Type Department Care Team (Late st Contact Info) Description 12/28/2018 Ancillary Orders [facility] [address] [place] [address] Ulisses Lyn MD [address] [place] [address] [email or web address] Sick sinus syndrome Social History Tobacco Use [...] dysfunction documented in this encounter Care Teams Assistant Tennis Professional Relationship Specialty Start Date End Date Irving Swift DO [address] [place] [address] PCP - General 07/22/17 01/18/19 Janee Berry MD, MPH [address] [place] [address] [email or web address] PCP - General Family Medicine 01/19/19 05/23/19 Unknown, Price, [address] [place] [address] PCP - General 05/24/19 09/06/19 Jaya Brock MD [address] [place] [address] PCP - General 09/07/19 documented as of this encounter Additional Source Comments The information contained in this document represents components of the legal health record. It is not the complete legal health record.[facility]
--- OUTSIDE RECORDS SUMMARY | 2025-09-24 08:37 | XMS_ITS | Encounter Summary ---
Author Organization [facility] Address [address] [place] [address] Phone Care Team Providers [employer] Name Role Phone Jaya Brock MD Primary Care Provider Encounter Details Date Type Department Care Team (Late st Contact Info) Description 10/12/2020 Procedure Pass Yates Ayden Non-Invasive Cardiology [address] [place] [address] Social History Tobacco Use Types Packs/Day Years [...] on filedocumented in this encounter Care Teams [employer] Relationship Specialty Start Date End Date Jaya Brock MD PCP - General 09/07/19 documented as of this encounter Additional Source Comments The information contained in this document represents components of the legal health record. It is not the complete legal health record.[facility]
[2025-09-24 10:05] LABS: MANUAL DIFF FLAG NO
[2025-09-24 10:18] LABS: Hematocrit 34.8 % (42.0-52.0); Hemoglobin 11.4 g/dl (14.0-18.0); Imm Gran Abs Auto 0.02 X10*3/uL (0.00-0.03); Imm Gran Pct Auto 0.3 % (0.0-0.4); Lymphocytes Absolute Auto 1.8 X10*3/uL (1.2-4.9); Mean Corpuscular HGB Conc 32.8 g/dl (31.0-36.0); Mean Corpuscular Hemoglobin 34.9 pg (27.0-33.0); Mean Corpuscular Volume 106.4 fL (80.0-98.0); NRBC Abs Auto 0.000 X10*3/uL (0.0-0.012); NRBC Pct Auto 0.0 /100WBC (0.0-0.2); Platelet Count 221 X10*3/uL (160-400); Red Blood Count 3.27 X10*6/uL (4.60-5.80); White Blood Count 7.9 X10*3/uL (4.8-10.8)
[2025-09-24 10:36] LABS: Alanine Aminotransferase 13 U/L (0-40); Albumin Level 4.3 g/dL (3.5-5.0); Alkaline Phosphatase 53 U/L (39-117); Anion Gap 13 (12-20); Aspartate Amino Transferase 23 U/L (5-37); Blood Urea Nitrogen 59 mg/dL (9-16); Calcium 10.0 mg/dL (8.4-10.2); Carbon Dioxide 27 mmol/L (22-29); Chloride 109 mmol/L (96-108); Cholesterol 93 mg/dL (<200); Estimated Glomerular Filt Rate 36; HDL Cholesterol 26 mg/dL (>40); Potassium 4.1 mmol/L (3.3-5.1); Sodium 145 mmol/L (135-145); Total Protein 6.8 g/dL (6.5-8.0); Triglycerides 180 mg/dL (<150)
[2025-09-24 10:51] LABS: Ferritin 34 ng/mL (20-250)
== END 2025-09-24 08:25 | disposition home or self-care (01) ==
LOC: HO.HMGCLDS 08:24
PROVIDERS: Absent Provider Nurse Practitioner Family; PCP Physician Assistant Medical; Visit Provider Physician Assistant Medical
DX: R73.9 Hyperglycemia, unspecified (principal); E78.5 Hyperlipidemia, unspecified; D64.9 Anemia, unspecified
CPT/HCPCS: 36415; 80053; 80061; 82728; 83036; 85025